=== PATIENT | female | born 1970 | race Caucasian/White ===

== ENCOUNTER 2018-04-15 09:55 | Emergency (ER) | payer MEDICARE, SELFPAY ==
[2018-04-02 10:51] VITALS: BMI 29.9
[2018-04-15 09:56] VITALS: BP 150/84; PULSE 94; RESP 18; TEMP 36.2; O2SAT 99; BMI 31.8
--- NOTE | 2018-04-15 10:10 | RAD_ITS ---
STUDY: X-RAY - LEFT HAND REASON FOR EXAM: Female, 47 years old. Cat bite lateral side of hand/thumb with injury, soft tissue swelling. TECHNIQUE: 3 view(s) of the hand. COMPARISON: None. FINDINGS: Normal radiocarpal articulation. Normal distal radioulnar joint. Normal visualized carpal bones. 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 Normal second through fifth carpometacarpal joints. Normal metacarpi. Normal metacarpophalangeal joint of the thumb. Normal interphalangeal joint of the thumb. Normal proximal and distal phalanges of the thumb. Normal metacarpophalangeal joints of the second through fifth fingers. Normal proximal and distal interphalangeal joints of the second through fifth fingers. Normal phalanges of the second through fifth fingers. Mild soft tissue swelling in the lateral hand/thenar region. No radiopaque foreign body. No demonstrated acute fracture. RAD/Hand Min 3 Views IMPRESSION: Mild lateral soft tissue swelling. No radiopaque foreign body or acute osseous abnormality of the left hand. Electronically Signed: Jamin Choi MD at 11:18 EST , Service support ,
--- NOTE | 2018-04-15 10:16 | ED.DCSUM_ITS ---
- ER Visit Summary Date of Service: 04/15/18 Chief Complaint: Cat bite History of Present Illness: The patient is a 47 F who was bit by her cat last evening. Just come home from the vent after being sprayed. Patient is noted increased pain and swelling to her left thumb and hand. Shots are up-to-date. Physical Examination: Vital signs gross unremarkable. Patient sitting upright in bed no acute distress. Left upper extremity examination reveals multiple linear abrasions consistent with bite wounds/scratches to her left hand and left thumb. She has mild edema to the left thumb. She has full range of motion. No tenderness to palpation along the extensor tendons. No drainage from the wounds at this time and no focal fluctuance. Heart is regular rate and rhythm without murmur. Lung sounds are clear. Test Results: Left hand x-rays reveal no abnormality per my review. Emergency Department Course and Treatment: Patient is given Naprosyn, 1 tab of [place], and doxycycline. Hand is soaked and wounds are cleansed and dressed. At this time she is appropriate for outpatient management with antibiotics. She has been given instructions to return for worsening pain, swelling, redness, etc. She Agapito has a follow-up appointment scheduled with her primary care physician in 3 days. Treatment Plan: [] Disposition: Discharge Impression: Cat bite left hand This note was generated with [employer] dictation software. It may contain incorrect words, spelling, and punctuation that were not noted in review of the chart prior to signing ED Disposition - Plan for ED Patient: Chief Complaint: Bite Referrals: Danielle Knowles MD [Primary Care Provider] -
[2018-04-15] MEDS: Naproxen 500 MG Tablet PO (11:01)
[2018-04-15] MEDS: HYDROcodone Bitartrate/Apap 5/325 Tablet PO (11:01)
[2018-04-15] MEDS: Doxycycline 100 MG CAPSULE PO (11:01)
--- NOTE | 2018-04-15 11:17 | ED.DEP ---
ED Disposition - Plan for ED Patient: Disposition: Home or Assisted Living Chief Complaint: Bite Instructions: ED Bite Cat Prescriptions: Hydrocodone Bitart/Apap 5-325 [[place] 5MG-325MG] 1 tablet PO Q6H PRN PRN 3 Days #10 tablet PRN Reason: Pain Naproxen [Naprosyn] 500 mg PO BID PRN PRN #20 tablet PRN Reason: Pain Doxycycline 100 mg PO BID #20 capsule Referrals: Danielle Knowles MD [Primary Care Provider] - Keep David appointment
[2018-04-15 11:27] VITALS: PULSE 90; RESP 17; O2SAT 98
--- OUTSIDE RECORDS SUMMARY | 2018-06-19 10:01 | XMS RPT_ITS ---
:1970 Author Organization [facility] Care Team Providers Name Role Phone SYL VEGA Referring Unavailable CINDY MOLINA ([facility]) Attending Unavailable MELYSSA MOBLEY Referring Unavailable CINDY MOLINA ([facility]) Referring Unavailable CINDY MOLINA ([facility]) Referring Unavailable CINDY MOLINA ([facility]) Referring Unavailable CINDY MOLINA ([facility]) Attending Unavailable CINDY MOLINA ([facility]) Referring Unavailable CINDY MOLINA ([facility]) Referring Unavailable GANLESLIE MELYSSA Referring Unavailable JOHNSON MOBLEYRA Attending Unavailable SYL VEGA Referring Unavailable GANTA, MELYSSA Referring Unavailable RUTTI, GINA (RELIEF MATE) Attending Unavailable GANTA, MELYSSA Referring Unavailable WINNIE ARTEAGA (PT) Attending Unavailable RUTTI, GINA (RELIEF MATE) Referring Unavailable RUTTI, GINA (RELIEF MATE) Referring Unavailable RUTTI, GINA (RELIEF MATE) Referring Unavailable CHANDLERWINNIE OATES (PT) Attending Unavailable RUTTI, GINA (RELIEF MATE) Referring Unavailable GANTA, MELYSSA Referring Unavailable GANTA, MELYSSA Attending Unavailable GANTA, MELYSSA Referring Unavailable GANTA, MELYSSA Referring Unavailable GANTA, MELYSSA Referring Unavailable GANTA, MELYSSA Referring Unavailable GANTA, MELYSSA Referring Unavailable GANTA, MELYSSA Attending Unavailable Syl Hylton Attending Unavailable Ganta, Melyssa Referring Unavailable Cathy Posada Attending Unavailable Ganta, Melyssa Primary Care Unavailable Cesar Ariza Attending Unavailable Ganta, Melyssa Referring Unavailable Pool, Nhung Primary Care Unavailable Cesar Ariza Attending Unavailable Syl Hylton Attending Unavailable Ganta, Melyssa Referring Unavailable PROBLEMS PROBLEMS DATE TYPE CONDITION / CODE ATTENDING STATUS SOURCE 04/15/2018 Unknown S61.452A - Open Cathy Posada Active [facility] bite of left hand, Community initial encounter / Hospital S61.452A(ICD-10) Repository 04/05/2018 Unknown J01.00 - Acute Syl Hylton Active [place] maxillary [facility] sinusitis, Hospital unspecified / Repository J01.00(ICD-10) 01/13/2018 Active Encounter for Active [facility] screening mammogram [place] for malignant Repository neoplasm of breast / Z12.31(ICD-10) 09/10/2017 Active 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[facility] (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) drug [place] therapy / Repository Z79.899(ICD-10) 09/10/2017 Active Unspecified NA Active [facility] osteoarthritis, [place] unspecified site / Repository M19.90(ICD-10) 09/09/2017 Active Unknown / GANTA, MELYSSA Active [facility] UNK(Unknown) [place] Repository 04/19/2013 Active Hyperlipidemia, Active [facility] unspecified / [place] E78.5(ICD-10) Repository 08/13/2017 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 [facility] use of insulin / [place] Z79.4(ICD-10) Repository 08/13/2017 Active Essential (primary) Active [facility] hypertension / [place] I10(ICD-10) Repository 04/19/2013 Active Proteinuria, NA Active [facility] unspecified / [place] R80.9(ICD-10) Repository 05/25/2017 Active Type 2 diabetes NA Active [facility] mellitus with [place] hyperglycemia / Repository E11.65(ICD-10) 05/25/2017 Active Glycosuria / NA Active [facility] R81(ICD-10) [place] Repository 05/25/2017 Active Hyperglycemia, NA Active [facility] unspecified / [place] R73.9(ICD-10) Repository 05/21/2017 Active Type 2 diabetes NA Active [facility] mellitus with [place] diabetic Repository nephropathy / E11.21(ICD-10) 04/28/2017 Unknown R30.0 - Dysuria / Cesar Ariza Active [facility] R30.0(ICD-10) [facility] [place] Repository PROCEDURES PROCEDURES No Procedure Records FoundRESULTS RESULTS OBSOLETE Observed: 04/21/2018 Status: COMPLETED Source: [place] 12:00 AM [facility] REPOSITORY Refill (INTMWS) JAROD LOONEY ([id number]) 1970 F Date Time Provider Department 04/21/18 MELYSSA MOBLYE INTMWS During your visit today, we recorded the following information about you: Estephania Christophe FORMAN 04/21/2018 11:52 AM Signed Patient has been identified by name and date of : Yes Pharmacy phones for refill(s): Pending Prescriptions Disp Refills INSULIN DEGLUDEC (U-100) 100 UNIT/ML (3 ML) SUBCUTANEOUS PEN 7 Pen 5 Sig: Inject 70 Units subcutaneously once daily. NIDHI: No GABAPENTIN 100 MG CAPSULE 270 capsule 0 Sig: Take 1 capsule by mouth three times daily for 90 days. NIDHI: No Date of last office visit in primary care: 04/18/2018, has appt 07/18/2018 Last 2 Encounter Wt Readings: Date: Wt: 04/18/2018 83 kg (183 lb) 01/13/2018 84.4 kg (186 lb) Previous labs/tests for medication: Diabetes: Hemoglobin A1C (%) Date Value 04/01/2018 7.5 12/17/2017 8.5 Please advise. Thank you. Estephania Molina APRN.RELIEF MATE 04/21/2018 1:01 PM Signed The following approved medication requests have been transmitted electronically. Signed Prescriptions Disp Refills insulin degludec (TRESIBA FLEXTOUCH U-100) 100 unit/mL (3 mL) injection 7 Pen 5 Sig: Inject 70 Units subcutaneously once daily. NIDHI: No Authorizing Provider: CINDY MOLINA ([place]) gabapentin (NEURONTIN) 100 mg capsule 270 capsule 1 Sig: Take 1 capsule by mouth three times daily for 180 days. NIDHI: No Authorizing Provider: CINDY MOLINA ([place]) Cindy Molina APRN.RELIEF MATE Allergies As of Date: 04/21/2018 Noted Allergy Reaction PENICILLIN G 04/18/2013 7 - Swelling REQUIP (ROPINIROLE) 04/18/2013 14 - Other: See Comments Comments: seizures Date Reviewed: 04/18/2018 Reviewed by: Sharon Reyes LPN - Fully Assessed Reason for Visit: Refill Request [94] Visit Diagnosis:Restless leg [G25.81] Order(s):insulin degludec (TRESIBA FLEXTOUCH U-100) 100 unit/mL (3 mL) injectionInject 70 Units subcutaneously once daily.Disp: 7 PenRfl: 5 gabapentin (NEURONTIN) 100 mg capsuleTake 1 capsule by mouth three times daily for 180 days.Disp: 270 capsuleRfl: 1 Prescriptions as of 04/21/2018 Sig: INSULIN DEGLUDEC (U-100) 100 * Inject 70 Units subcutaneousl* GABAPENTIN 100 MG CAPSULE Take 1 capsule by mouth three* PEN NEEDLE, DIABETIC 31 GAUGE* Use one needle per dose. once* TRIAMCINOLONE ACETONIDE 55 MC* Use 2 Sprays in the nose once* LIRAGLUTIDE 0.6 MG/0.1 ML (18* Inject 1.8 mg subcutaneously * KETOCONAZOLE 2 % TOPICAL CREAM Apply 1 application to affect* NAPROXEN 500 MG TABLET Take 1 tablet by mouth twice * FREESTYLE LANCETS 28 GAUGE CHECK BLOOD GLUCOSE TWO TIME* LIDOCAINE 5 % TOPICAL CREAM Apply 1 application to affect* METFORMIN 1,000 MG TABLET Take 1 tablet by mouth twice * AMLODIPINE 5 MG TABLET TAKE 1 TABLET BY MOUTH ONCE D* VENLAFAXINE ER 150 MG CAPSULE* TAKE 1 CAPSULE BY MOUTH ONCE* FENOFIBRATE NANOCRYSTALLIZED * TAKE 1 TABLET BY MOUTH ONCE D* LOSARTAN 100 MG TABLET TAKE ONE-HALF TABLET BY MOUT* ATORVASTATIN 20 MG TABLET TAKE 1 TABLET BY MOUTH ONCE D* ATENOLOL 50 MG TABLET TAKE 1 TABLET BY MOUTH ONCE D* OMEPRAZOLE 20 MG CAPSULE,SAYRA* TAKE 1 CAPSULE BY MOUTH HUGO* MONTELUKAST 10 MG TABLET TAKE 1 TABLET BY MOUTH DAILY* BLOOD SUGAR DIAGNOSTIC STRIPS Use as instructed LINZESS 145 MCG CAPSULE take 1 capsule by mouth once * SYRINGE WITH NEEDLE, SAFETY 3* 1 mL once each week. ASPIRIN 81 MG TABLET,DELAYED * Take 1 tablet by mouth once d* Problem List As Of Date 04/21/2018 Noted Resolved Anxiety and depression [F41.9, F32.9] INVALID FOR* More... Hyperlipidemia [E78.5] INVALID FOR* More... Hypertension [I10] INVALID FOR* More... Fibromyalgia syndrome [M79.7] INVALID FOR* More... Tobacco abuse [Z72.0] INVALID FOR* More... 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 Proteinuria [R80.9] INVALID FOR* Tendinitis of thumb [M77.8] INVALID FOR* More... Raynaud's syndrome [I73.00] INVALID FOR* More... Irritable bowel syndrome with diarrhea [K58.0] INVALID FOR* Restless leg syndrome [G25.81] INVALID FOR* Chronic pain syndrome [G89.4] INVALID FOR* Prescriptions ordered this encounter Disp Refills Start End INSULIN DEGLUDEC (U-100) 100 UNIT/ML* 7 Pen 5 04/21/2018 Class: [facility] Route: SUBCUTANEOUS Sig: Inject 70 Units subcutaneously once daily. GABAPENTIN 100 MG CAPSULE 270 * 1 04/21/2018 10/18/2018 Class: [facility] Route: ORAL Sig: Take 1 capsule by mouth three times daily for 180 days. Medications Discontinued During This Encounter insulin degludec (TRESIBA FLEXTOUCH * 7 Pen 5 01/25/2018 04/21/2018 Route: SUBCUTANEOUS Sig: Inject 70 Units subcutaneously once daily. Disc: Reason for discontinue is not on file. gabapentin (NEURONTIN) 100 mg capsule 270 * 0 12/16/2017 04/21/2018 Sig: TAKE 1 CAPSULE BY MOUTH 3 TIMES DAILY Disc: Reason for discontinue is not on file. Encounter Status:Closed by CINDY MOLINA CNP on 04/21/18 PROGRESS Observed: 04/18/2018 Status: COMPLETED Source: [place] 2:02 PM [facility] REPOSITORY O ID: [id number] Author: Melyssa Mobley Service: (none) Author Type: Physician Type: Progress Notes Filed: 04/18/2018 5:24 PM Note Text: Reason for Visit Patient presents with: Established Patient: 3 month follow up Jarod Looney is a 47 year old female who presents here today for Above Complaints.. Health Maintenance DTAP,TDAP,TD(1 - Tdap) HPI Cat was neutered but they forgot to up a cone on her to stop from licking her wounds and when the patient tried to get her on it, cat bit her, and she has some tiny wounds on herself. She is on abx 2 times, dicloxacillin, this all took place Tuesday. They had xray and did not show any tooth in the flesh there. Her Diabetes Mellitus is improved since the last time, down from 8.5 to 7.5. She is not sure what blood test it was but is proud of her sugar too. Has lost around 5 pounds. She is not exercising regularly, patient notes being very active at home. Her tgs are usually very high but she is on the fenofibrate and tolerates it well. She is not on Linzess on a daily basis. If she takes it all the time she has runny bowels. On effexor for anxiety, depression and that is keeping her good. No problem-specific Assessment AND Plan notes found for this encounter. PAST MEDICAL HISTORY Diagnosis Date - De Quervain's tenosynovitis, bilateral - Diabetes (HCC) - Hypercholesterolemia - Raynaud's disease PAST SURGICAL HISTORY Procedure Laterality Date - CONE OF CERVIX LOOPELEC EXCIS - EXTRACTION ERUPTED TOOTH/EXR - HYSTERECTOMY HX precervical cancer, removed cervix - KNEE SURGERY HX 4x right and left x4 FAMILY HISTORY Problem Relation Age of Onset - Hypertension Mother - Breast Cancer Mother - Breast Cancer Maternal Grandmother - Cervical Cancer Paternal Aunt - COPD Paternal Grandmother - Coronary Artery Disease Paternal Grandfather - Coronary Artery Disease Paternal Grandmother - Heart Paternal Aunt - other (raynaud [Other]) Mother Social History Substance Use Topics - Smoking status: Current Every Day Smoker Packs/day: 0.50 Years: 21.00 Types: Cigarettes - Smokeless tobacco: Never Used - Alcohol use No Past medical history, appointments, medications, allergies reviewed. Pertinent Lab/Diagnostic Studies are reviewed and discussed today Current Outpatient Prescriptions: - insulin needles, DISPOSABLE, (PEN NEEDLE) 31 gauge x 5/16 ndle - triamcinolone acetonide (NASACORT) 55 mcg nasal inhaler - liraglutide (VICTOZA) 0.6 mg/ 0.1 ml subcutaneous pen injector - insulin degludec (TRESIBA FLEXTOUCH U-100) 100 unit/mL (3 mL) injection - ketoconazole (NIZORAL) 2 % cream - gabapentin (NEURONTIN) 100 mg capsule - naproxen (NAPROSYN) 500 mg tablet - FREESTYLE LANCETS 28 gauge misc - lidocaine (ANECREAM5) crea - metFORMIN (GLUCOPHAGE) 1,000 mg tablet - amLODIPine (NORVASC) 5 mg tablet - venlafaxine ER (EFFEXOR XR) 150 mg 24 hr capsule - fenofibrate nanocrystallized (TRICOR) 145 mg tablet - losartan (COZAAR) 100 mg tablet - atorvastatin (LIPITOR) 20 mg tablet - atenolol (TENORMIN) 50 mg tablet - omeprazole (PRILOSEC) 20 mg capsule - montelukast (SINGULAIR) 10 mg tablet - blood sugar diagnostic (ONETOUCH ULTRA TEST) test strip - LINZESS 145 mcg cap - Syringe with Needle, Safety (3CC SAFETY SYRINGE 25GX5/8) 3 mL 25 x 5/8 syrg - aspirin, enteric coated (ADULT LOW DOSE ASPIRIN) 81 mg EC tablet Review of Systems CONSTITUTIONAL: No fevers, chills night sweats, unintended weight loss CARDIOVASCULAR: No chest pain, dyspnea, palpitations, orthopnea, PND, ankle edema. PULM: No dyspnea, unexplained cough. GI: No dysphagia/odynophagia, problematic reflux, constipation, diarrhea, changes in stool habits, hematochezia, melena. : No new urinary complaints, including dysuria, gross hematuria or pyuria. NEURO: No new balance problems, peripheral weakness/paresthesias or numbness of concern. Physical Exam BP 120/74 (BP Site: Right Arm, BP Position: Sitting, BP Cuff Size: Large Adult) Pulse 103 Resp 12 Ht 165.1 cm (5' 5) Wt 83 kg (183 lb) SpO2 97% BMI 30.45 kg/m? General appearance: Well appearing, alert, in no acute distress, well nourished. Skin: Skin color, texture, turgor normal, no suspicious rashes or lesions Head: Normocephalic, no masses, lesions, tenderness or abnormalities Eyes: Anicteric sclera. Pupils are equally round and reactive to light. Extraocular movements are intact. Lungs: Lungs clear to auscultation. No wheezing, rhonchi, rales Heart: RRR without murmur, gallop, or rubs. She has multiple carson on the left hand But there is no streaking of the bite wounds. None of them look Like there is active spreading infection ASSESSMENT/PLAN: 1. Anxiety and depression - ICD9: 300.00, 311, ICD10: F41.9, F32.9 (primary diagnosis) Currently stable 2. Hyperlipidemia, unspecified hyperlipidemia type - ICD9: 272.4, ICD10: E78.5 - good control - Continue current medication. 3. Essential hypertension - ICD9: 401.9, ICD10: I10 - good control - Recommended regular aerobic exercise. - Recommend home blood pressure monitoring, to bring results in on next visit - Goal of BP <130/80 - HGB A1C 4. Hypertriglyceridemia - ICD9: 272.1, ICD10: E78.1 - good control - Continue current medication. 5. Cat bite, subsequent encounter - ICD9: V58.89, 879.8, ICD10: W55.01XD Reassured her that she is on the right medication 6. Type 2 diabetes mellitus with diabetic nephropathy, with long-term current use of insulin (HCC) - ICD9: 250.40, 583.81, V58.67, ICD10: E11.21, Z79.4 Controlled. - Continue current medications - LIPID PANEL BASIC MELYSSA MOBLEY MD CNOV Observed: 04/18/2018 Status: COMPLETED Source: [place] 1:40 PM [facility] REPOSITORY Office Visit (INTMWS) JAROD LOONEY ([id number]) 1970 F Date Time Provider Department 04/18/18 1:40 PM MELYSSA MOBLEY INTMWS During your visit today, we recorded the following information about you: Pulse Respiration Blood pressure Weight 103/minute 12/minute 120/74 83 kg Height 1.651 m Sharon Reyes LPN 04/18/2018 2:02 PM Signed Cat bite on left hand MELYSSA MOBLEY MD 04/18/2018 5:24 PM Signed Reason for Visit Patient presents with: Established Patient: 3 month follow up Jarod Looney is a 47 year old female who presents here today for Above Complaints.. Health Maintenance DTAP,TDAP,TD(1 - Tdap) HPI Cat was neutered but they forgot to up a cone on her to stop from licking her wounds and when the patient tried to get her on it, cat bit her, and she has some tiny wounds on herself. She is on abx 2 times, dicloxacillin, this all took place Tuesday. They had xray and did not show any tooth in the flesh there. Her Diabetes Mellitus is improved since the last time, down from 8.5 to 7.5. She is not sure what blood test it was but is proud of her sugar too. Has lost around 5 pounds. She is not exercising regularly, patient notes being very active at home. Her tgs are usually very high but she is on the fenofibrate and tolerates it well. She is not on Linzess on a daily basis. If she takes it all the time she has runny bowels. On effexor for anxiety, depression and that is keeping her good. No problem-specific Assessment AND Plan notes found for this encounter. PAST MEDICAL HISTORY Diagnosis Date - De Quervain's tenosynovitis, bilateral - Diabetes (HCC) - Hypercholesterolemia - Raynaud's disease PAST SURGICAL HISTORY Procedure Laterality Date - CONE OF CERVIX LOOPELEC EXCIS - EXTRACTION ERUPTED TOOTH/EXR - HYSTERECTOMY HX precervical cancer, removed cervix - KNEE SURGERY HX 4x right and left x4 FAMILY HISTORY Problem Relation Age of Onset - Hypertension Mother - Breast Cancer Mother - Breast Cancer Maternal Grandmother - Cervical Cancer Paternal Aunt - COPD Paternal Grandmother - Coronary Artery Disease Paternal Grandfather - Coronary Artery Disease Paternal Grandmother - Heart Paternal Aunt - other (raynaud [Other]) Mother Social History Substance Use Topics - Smoking status: Current Every Day Smoker Packs/day: 0.50 Years: 21.00 Types: Cigarettes - Smokeless tobacco: Never Used - Alcohol use No Past medical history, appointments, medications, allergies reviewed. Pertinent Lab/Diagnostic Studies are reviewed and discussed today Current Outpatient Prescriptions: - insulin needles, DISPOSABLE, (PEN NEEDLE) 31 gauge x 5/16 ndle - triamcinolone acetonide (NASACORT) 55 mcg nasal inhaler - liraglutide (VICTOZA) 0.6 mg/ 0.1 ml subcutaneous pen injector - insulin degludec (TRESIBA FLEXTOUCH U-100) 100 unit/mL (3 mL) injection - ketoconazole (NIZORAL) 2 % cream - gabapentin (NEURONTIN) 100 mg capsule - naproxen (NAPROSYN) 500 mg tablet - FREESTYLE LANCETS 28 gauge misc - lidocaine (ANECREAM5) crea - metFORMIN (GLUCOPHAGE) 1,000 mg tablet - amLODIPine (NORVASC) 5 mg tablet - venlafaxine ER (EFFEXOR XR) 150 mg 24 hr capsule - fenofibrate nanocrystallized (TRICOR) 145 mg tablet - losartan (COZAAR) 100 mg tablet - atorvastatin (LIPITOR) 20 mg tablet - atenolol (TENORMIN) 50 mg tablet - omeprazole (PRILOSEC) 20 mg capsule - montelukast (SINGULAIR) 10 mg tablet - blood sugar diagnostic (ONETOUCH ULTRA TEST) test strip - LINZESS 145 mcg cap - Syringe with Needle, Safety (3CC SAFETY SYRINGE 25GX5/8) 3 mL 25 x 5/8 syrg - aspirin, enteric coated (ADULT LOW DOSE ASPIRIN) 81 mg EC tablet Review of Systems CONSTITUTIONAL: No fevers, chills night sweats, unintended weight loss CARDIOVASCULAR: No chest pain, dyspnea, palpitations, orthopnea, PND, ankle edema. PULM: No dyspnea, unexplained cough. GI: No dysphagia/odynophagia, problematic reflux, constipation, diarrhea, changes in stool habits, hematochezia, melena. : No new urinary complaints, including dysuria, gross hematuria or pyuria. NEURO: No new balance problems, peripheral weakness/paresthesias or numbness of concern. Physical Exam BP 120/74 (BP Site: Right Arm, BP Position: Sitting, BP Cuff Size: Large Adult) Pulse 103 Resp 12 Ht 165.1 cm (5' 5) Wt 83 kg (183 lb) SpO2 97% BMI 30.45 kg/m? General appearance: Well appearing, alert, in no acute distress, well nourished. Skin: Skin color, texture, turgor normal, no suspicious rashes or lesions Head: Normocephalic, no masses, lesions, tenderness or abnormalities Eyes: Anicteric sclera. Pupils are equally round and reactive to light. Extraocular movements are intact. Lungs: Lungs clear to auscultation. No wheezing, rhonchi, rales Heart: RRR without murmur, gallop, or rubs. She has multiple carson on the left hand But there is no streaking of the bite wounds. None of them look Like there is active spreading infection ASSESSMENT/PLAN: 1. Anxiety and depression - ICD9: 300.00, 311, ICD10: F41.9, F32.9 (primary diagnosis) Currently stable 2. Hyperlipidemia, unspecified hyperlipidemia type - ICD9: 272.4, ICD10: E78.5 - good control - Continue current medication. 3. Essential hypertension - ICD9: 401.9, ICD10: I10 - good control - Recommended regular aerobic exercise. - Recommend home blood pressure monitoring, to bring results in on next visit - Goal of BP <130/80 - HGB A1C 4. Hypertriglyceridemia - ICD9: 272.1, ICD10: E78.1 - good control - Continue current medication. 5. Cat bite, subsequent encounter - ICD9: V58.89, 879.8, ICD10: W55.01XD Reassured her that she is on the right medication 6. Type 2 diabetes mellitus with diabetic nephropathy, with long-term current use of insulin (HCC) - ICD9: 250.40, 583.81, V58.67, ICD10: E11.21, Z79.4 Controlled. - Continue current medications - LIPID PANEL BASIC MELYSSA MOBLEY MD Referring Provider: SELF [200] Allergies As of Date: 04/18/2018 Noted Allergy Reaction PENICILLIN G 04/18/2013 7 - Swelling REQUIP (ROPINIROLE) 04/18/2013 14 - Other: See Comments Comments: seizures Date Reviewed: 04/18/2018 Reviewed by: Sharon Reyes LPN - Fully Assessed Reason for Visit: Established Patient [175] Cmt: 3 month follow up Primary Visit Diagnosis:Anxiety and depression [F41.9, F32.9] Other Visit Diagnoses:Hyperlipidemia, unspecified hyperlipidemia type [E78.5] Essential hypertension [I10] Hypertriglyceridemia [E78.1] Cat bite, subsequent encounter [W55.01XD] Type 2 diabetes mellitus with diabetic nephropathy, with long-term current use of insulin (HCC) [E11.21, Z79.4] Order(s):HGB A1C [TDVCG7L] Order #: [id number] FUTURE LIPID PANEL BASIC [SQLIPB] Order #: [id number] FUTURE Prescriptions as of 04/18/2018 Sig: PEN NEEDLE, DIABETIC 31 GAUGE* Use one needle per dose. once* TRIAMCINOLONE ACETONIDE 55 MC* Use 2 Sprays in the nose once* LIRAGLUTIDE 0.6 MG/0.1 ML (18* Inject 1.8 mg subcutaneously * INSULIN DEGLUDEC (U-100) 100 * Inject 70 Units subcutaneousl* KETOCONAZOLE 2 % TOPICAL CREAM Apply 1 application to affect* GABAPENTIN 100 MG CAPSULE TAKE 1 CAPSULE BY MOUTH 3 TI* NAPROXEN 500 MG TABLET Take 1 tablet by mouth twice * FREESTYLE LANCETS 28 GAUGE CHECK BLOOD GLUCOSE TWO TIME* LIDOCAINE 5 % TOPICAL CREAM Apply 1 application to affect* METFORMIN 1,000 MG TABLET Take 1 tablet by mouth twice * AMLODIPINE 5 MG TABLET TAKE 1 TABLET BY MOUTH ONCE D* VENLAFAXINE ER 150 MG CAPSULE* TAKE 1 CAPSULE BY MOUTH ONCE* FENOFIBRATE NANOCRYSTALLIZED * TAKE 1 TABLET BY MOUTH ONCE D* LOSARTAN 100 MG TABLET TAKE ONE-HALF TABLET BY MOUT* ATORVASTATIN 20 MG TABLET TAKE 1 TABLET BY MOUTH ONCE D* ATENOLOL 50 MG TABLET TAKE 1 TABLET BY MOUTH ONCE D* OMEPRAZOLE 20 MG CAPSULE,SAYRA* TAKE 1 CAPSULE BY MOUTH HUGO* MONTELUKAST 10 MG TABLET TAKE 1 TABLET BY MOUTH DAILY* BLOOD SUGAR DIAGNOSTIC STRIPS Use as instructed LINZESS 145 MCG CAPSULE take 1 capsule by mouth once * SYRINGE WITH NEEDLE, SAFETY 3* 1 mL once each week. ASPIRIN 81 MG TABLET,DELAYED * Take 1 tablet by mouth once d* Problem List As Of Date 04/18/2018 Noted Resolved Anxiety and depression [F41.9, F32.9] INVALID FOR* More... Hyperlipidemia [E78.5] INVALID FOR* More... Hypertension [I10] INVALID FOR* More... Fibromyalgia syndrome [M79.7] INVALID FOR* More... Tobacco abuse [Z72.0] INVALID FOR* More... 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 Proteinuria [R80.9] INVALID FOR* Tendinitis of thumb [M77.8] INVALID FOR* More... Raynaud's syndrome [I73.00] INVALID FOR* More... Irritable bowel syndrome with diarrhea [K58.0] INVALID FOR* Restless leg syndrome [G25.81] INVALID FOR* Chronic pain syndrome [G89.4] INVALID FOR* Visit Notes: >> Sharon Reyes DASIA Gould Apr 18, 2018 1:52 PM Status: Signed Cat bite on left hand Encounter Status:Closed by MELYSSA MOBLEY MD on 04/18/18 EMERGENCY DEPARTMENT Observed: 04/15/2018 Status: F Source: [place] SUMMARY 2:05 PM [facility] REPOSITORY [facility] Medical Records Department [address] [place] [id number] Emergency Department Summary 04/15/18 1015 MR#: [id number] Acct: [id number] Name: JAROD LOONEY Rep #: [id number] : 1970 47 From: Cathy Posada MD PCP: Melyssa Mobley MD Status: DEP ER - ER Visit Summary Date of Service: 04/15/18 Chief Complaint: Cat bite History of Present Illness: The patient is a 47 F who was bit by her cat last evening. Just come home from the vent after being sprayed. Patient is noted increased pain and swelling to her left thumb and hand. Shots are up-to-date. Physical Examination: Vital signs gross unremarkable. Patient sitting upright in bed no acute distress. Left upper extremity examination reveals multiple linear abrasions consistent with bite wounds/scratches to her left hand and left thumb. She has mild edema to the left thumb. She has full range of motion. No tenderness to palpation along the extensor tendons. No drainage from the wounds at this time and no focal fluctuance. Heart is regular rate and rhythm without murmur. Lung sounds are clear. Test Results: Left hand x-rays reveal no abnormality per my review. Emergency Department Course and Treatment: Patient is given Naprosyn, 1 tab of [place], and doxycycline. Hand is soaked and wounds are cleansed and dressed. At this time she is appropriate for outpatient management with antibiotics. She has been given instructions to return for worsening pain, swelling, redness, etc. She Agapito has a follow-up appointment scheduled with her primary care physician in 3 days. Treatment Plan: [] Disposition: Discharge Impression: Cat bite left hand This note was generated with Knome dictation software. It may contain incorrect words, spelling, and punctuation that were not noted in review of the chart prior to signing ED Disposition - Plan for ED Patient: Chief Complaint: Bite Referrals: Melyssa Mobley MD [Primary Care Provider] - What to do if you have Problems For any increased pain, shortness of breath, bleeding, nausea or vomiting, chest pain, or any unexpected problems, contact your Primary Care Provider. Call [facility] ([phone]) or report to the closest Emergency Room. Call 911 if necessary. 04/15/18 8492 <Electronically signed by Cathy Posada MD> Date Cathy Posada MD Cosigner Signature (If Indicated): Date CC: Melyssa Mobley MD DISCHARGE INSTRUCTION Observed: 04/15/2018 Status: F Source: [place] 11:19 AM [facility] REPOSITORY [facility] Medical Records Department [address] [place] [address] Discharge Instruction 04/15/18 1117 MR#: [id number] Acct: [id number] Name: JAROD LOONEY Rep #: [id number] : 1970 47 From: Cathy Posada MD PCP: Melyssa Mobley MD Status: REG ER ED Disposition - Plan for ED Patient: Disposition: Home or Assisted Living Chief Complaint: Bite Instructions: ED Bite Cat Prescriptions: Hydrocodone Bitart/Apap 5-325 [[place] 5MG-325MG] 1 tablet PO Q6H PRN PRN 3 Days #10 tablet PRN Reason: Pain Naproxen [Naprosyn] 500 mg PO BID PRN PRN #20 tablet PRN Reason: Pain Doxycycline 100 mg PO BID #20 capsule Referrals: Melyssa Mobley MD [Primary Care Provider] - Keep David appointment What to do if you have Problems For any increased pain, shortness of breath, bleeding, nausea or vomiting, chest pain, or any unexpected problems, contact your Primary Care Provider. Call [facility] ([phone]) or report to the closest Emergency Room. Call 911 if necessary. 04/15/18 1119 <Electronically signed by Cathy Posada MD> Date Cathy Posada MD Cosigner Signature (If Indicated): Date CC: Melyssa Mobley MD HAND MIN 3 VIEWS Observed: 04/15/2018 Status: F Source: [place] 10:10 AM [facility] Imaging Services [address] [address] Hand Min 3 Views MR#: [id number] Acct: [id number] Name: CAYDENJAROD Rep #: [id number] : 1970 F 47 From: Ld Choi MD PCP: Melyssa Mobley MD Status: REG ER Study: Hand Min 3 Views Date of Exam: 04/15/18 Exam# [id number] Ordering Dr: Cathy Posada MD STUDY: X-RAY - LEFT HAND REASON FOR EXAM: Female, 47 years old. Cat bite lateral side of hand/thumb with injury, soft tissue swelling. TECHNIQUE: 3 view(s) of the hand. COMPARISON: None. FINDINGS: Normal radiocarpal articulation. Normal distal radioulnar joint. Normal visualized carpal bones. 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 Normal second through fifth carpometacarpal joints. Normal metacarpi. Normal metacarpophalangeal joint of the thumb. Normal interphalangeal joint of the thumb. Normal proximal and distal phalanges of the thumb. Normal metacarpophalangeal joints of the second through fifth fingers. Normal proximal and distal interphalangeal joints of the second through fifth fingers. Normal phalanges of the second through fifth fingers. Mild soft tissue swelling in the lateral hand/thenar region. No radiopaque foreign body. No demonstrated acute fracture. RAD/Hand Min 3 Views IMPRESSION: Mild lateral soft tissue swelling. No radiopaque foreign body or acute osseous abnormality of the left hand. Electronically Signed: Jamin Choi MD at 11:18 EST , Service support , CC: Melyssa Mobley MD; Cathy Posada MD Survey Interviewer: Signed PROGRESS Observed: 04/06/2018 Status: COMPLETED Source: [place] 2:00 PM [facility] REPOSITORY HNO ID: [id number] Author: Suman Cabrera (Pharmacist) Service: (none) Author Type: Pharmacist Type: Progress Notes Filed: 04/06/2018 3:06 PM Note Text: Patient consents to pharmacy collaborative practice agreement. REASON FOR CONSULT: DM? GOALS: A1c <?8% CONSULTING PROVIDER: Cindy Molina CNP - need to updated consult agreement with PCP? Date of Consult: 04/2017 ? Jarod Looney is a 47 year old female was last seen by PCP, Dr. MELYSSA MOBLEY MD on 01/13. Subjective: Patient is presenting today with mother, Ying Phelan, for f/u pharmacotherapy management appointment for diabetes. At last PharmD visit on 03/25, no med changes. INTERIM HISTORY: Reports she is doing well with blood sugars Patient very pleased with improved A1c Smoking 1/2 ppd, not interested in quitting Reports uses smoking for anxiety States she has a disease of her hands that will make it so she won't be able to use hands at some point in the future Also says her mom having vascular dementia and her dad having Parkinson's is very stressful Past DM medications: Liraglutide switched to dulaglutide on 08/24/17 - BGs not at goal Dulaglutide switched back to liraglutide on 12/22/17 - pain with dulaglutide injection ? Current DM Medications: Insulin degludec 70?units once daily Metformin 1,000mg BID Liraglutide 1.8mg daily ? Current HTN Medications: Amlodipine 5mg once daily Atenolol 50mg once daily Losartan 50mg once daily (take 0.5 tablet of 100mg) ? Preventative Medications: ? On MANDY/ARB: Yes ? On Statin: Yes ? On ASA: Yes ROS: ? Patient denies CP, SOB, TATUM, blurred vision, dizziness or lightheadedness ? Patient denies symptoms of hypoglycemia (sweating, anxiety, palpitations, hunger, and tremor) ? Patient denies symptoms of hyperglycemia (polyuria, polydipsia, polyphagia) ? Patient denies potential medication adverse effects DIET/EXERCISE/SOCIAL Hx: ? Denies dietary changes MEDICATIONS: ? Pill bottles are not present. ? Adherence: denies missed doses. ? [facility])? Rx coverage: [facility] ? Affordability: denies issue ? Diabetes supplies: One Touch ? Organization System: pill box ACTIVE PROBLEM LIST Anxiety and Depression Hyperlipidemia Hypertension Fibromyalgia Syndrome Tobacco Abuse Type 2 Diabetes Mellitus With Diabetic Nephropathy (Hcc) Proteinuria Tendinitis of Thumb Raynaud's Syndrome Irritable Bowel Syndrome With Diarrhea Restless Leg Syndrome Chronic Pain Syndrome PAST MEDICAL HISTORY Diagnosis Date - De Quervain's tenosynovitis, bilateral - Diabetes (HCC) - Hypercholesterolemia - Raynaud's disease ALLERGIES Allergen Reactions - Penicillin G Swelling - Requip [Ropinirole] Other: See Comments seizures Medication List Medication Directions Comments Action/Plan amLODIPine (NORVASC) 5 mg tablet TAKE 1 TABLET BY MOUTH ONCE DAILY aspirin, enteric coated (ADULT LOW DOSE ASPIRIN) 81 mg EC tablet Take 1 tablet by mouth once daily. atenolol (TENORMIN) 50 mg tablet TAKE 1 TABLET BY MOUTH ONCE DAILY atorvastatin (LIPITOR) 20 mg tablet TAKE 1 TABLET BY MOUTH ONCE DAILY blood sugar diagnostic ([employer] ULTRA TEST) test strip Use as instructed fenofibrate nanocrystallized (TRICOR) 145 mg tablet TAKE 1 TABLET BY MOUTH ONCE DAILY FREESTYLE LANCETS 28 gauge misc CHECK BLOOD GLUCOSE TWO TIMES DAILY gabapentin (NEURONTIN) 100 mg capsule TAKE 1 CAPSULE BY MOUTH 3 TIMES DAILY insulin degludec (TRESIBA FLEXTOUCH U-100) 100 unit/mL (3 mL) injection Inject 70 Units subcutaneously once daily. insulin needles, DISPOSABLE, (PEN NEEDLE) 31 gauge x 5/16 ndle Use one needle per dose. once per day. ketoconazole (NIZORAL) 2 % cream Apply 1 application to affected area once daily. Apply to rash and surrounding area lidocaine (ANECREAM5) crea Apply 1 application to affected area as needed. Prior to using Trulicity weekly. Allow cream to dry completely prior to injection. LINZESS 145 mcg cap take 1 capsule by mouth once daily liraglutide (VICTOZA) 0.6 mg/ 0.1 ml subcutaneous pen injector Inject 1.8 mg subcutaneously once daily. losartan (COZAAR) 100 mg tablet TAKE ONE-HALF TABLET BY MOUTH ONCE DAILY metFORMIN (GLUCOPHAGE) 1,000 mg tablet Take 1 tablet by mouth twice daily with meals. montelukast (SINGULAIR) 10 mg tablet TAKE 1 TABLET BY MOUTH DAILY AT BEDTIME naproxen (NAPROSYN) 500 mg tablet Take 1 tablet by mouth twice daily as needed (for pain/inflammation). Take with food. omeprazole (PRILOSEC) 20 mg capsule TAKE 1 CAPSULE BY MOUTH DAILY BEFORE BREAKFAST Syringe with Needle, Safety ([facility] SAFETY SYRINGE 25GX5/8) 3 mL 25 x 5/8 syrg 1 mL once each week. venlafaxine ER (EFFEXOR XR) 150 mg 24 hr capsule TAKE 1 CAPSULE BY MOUTH ONCE DAILY Reports taking an antibiotic BID for sinus infection (has several days left of medication) GLYCEMIC CONTROL: ? Glucometer present at visit: No ? SMBG?s: Date Fasting AM 2 hr PP Before Lunch 2 hr PP Before Dinner 2 hr PP Bedtime 04/05 155 03/29 180 03/23 110 03/14 114 03/10 104 03/06 119 03/02 115 90 03/01 109 216 ? Hypoglycemia: none Objective: VITALS: BP 126/79 Pulse 79 Last 3 Encounter BP Readings: Date: BP: 02/23/2018 130/80 01/25/2018 146/89 01/13/2018 124/82 Wt: 84.4 kg (186 lb) BMI: 30.95 kg/(m2) LABS Lab Results Component Value Date HBA1C 7.5 04/01/2018 HBA1C 8.5 12/17/2017 HBA1C 8.7 08/13/2017 CMP: Glucose 186 04/01/2018 BUN 10 04/01/2018 Creatinine 0.53 04/01/2018 Sodium 138 04/01/2018 Potassium 4.1 04/01/2018 Chloride 102 04/01/2018 CO2 23 04/01/2018 Protein, Total 6.8 05/21/2017 Albumin 4.3 05/21/2017 Calcium 9.6 04/01/2018 Alkaline Phosphatase 84 05/21/2017 Bilirubin, Total 0.2 05/21/2017 AST 14 05/21/2017 ALT 22 05/21/2017 eGFR >60 (per BMP on 04/01/18) Last Lipid Panel Lab Results Component Value Date CHOL 171 05/21/2017 Lab Results Component Value Date HDL 29 05/21/2017 Lab Results Component Value Date LDL Unable to calculate due to increased Triglycerides. See LDL-Chol, Direct. 05/21/2017 Lab Results Component Value Date TG 497 05/21/2017 10-year ASCVD risk: 14% Albumin/Creat Ratio (mg/g) Date Value 09/10/2017 225 (H) PHARMACOTHERAPY ASSESSMENT/PLAN: 1. Type 2 diabetes mellitus with diabetic nephropathy, with long-term current use of insulin (HCC) - ICD9: 250.40, 583.81, V58.67, ICD10: E11.21, Z79.4 (primary diagnosis) A1c goal <8% but can consider less strict goal of <7% given age; A1c has improved (8.5-->7.5%) and patient pleased with progress; patient tolerating regimen well; SMBGs show FBGs are mostly at goal of 80-130 mg/dL; patient happy and prefers to continue with current regimen for now; will review SMBG next month to determine if adjustments need made to basal insulin; renal fxn and LFTs WNL and appropriate for continued use - CONTINUE metformin 1000mg BID, liraglutide 1.8mg daily, and insulin degludec 70 units daily 2. Essential hypertension - ICD9: 401.9, ICD10: I10 BP goal <140/90; controlled on current regimen and tolerating well; renal fxn, K+, and HR WNL and appropriate for continued use - CONTINUE amlodipine 5mg daily, atenolol 50mg daily, and losartan 50mg daily 3. Tobacco abuse - ICD9: 305.1, ICD10: Z72.0 Precontemplative stage of change; patient unwilling to quit at this time - reports she needs smoking to help with stress; PharmD encouraged patient to think about her own health instead of worrying only about the health of her family members; will continue to address at future appts Patient is scheduled to see PCP on 04/18. Patient to return to clinic for PharmD f/u on 05/25. Patient verbalized understanding of instructions. Suman Cabrera PharmD, [facility] Primary Care Clinical Pharmacist [place] CNOV Observed: 04/06/2018 Status: COMPLETED Source: [place] 2:00 PM [facility] REPOSITORY Office Visit (PHMEWO) JAROD LOONEY ([id number]) 1970 F Date Time Provider Department 04/06/18 2:00 PM PANTERA (PHARMACIST)SUMAN During your visit today, we recorded the following information about you: Pulse Blood pressure 79/minute 126/79 SUMAN CABRERA, PHARMACIST 04/06/2018 3:06 PM Signed Patient consents to pharmacy collaborative practice agreement. REASON FOR CONSULT: DM? GOALS: A1c <?8% CONSULTING PROVIDER: Cindy Molina CNP - need to updated consult agreement with PCP? Date of Consult: 04/2017 ? Jarod Looney is a 47 year old female was last seen by PCP, Dr. MELYSSA MOBLEY MD on 01/13. Subjective: Patient is presenting today with mother, Ying Phelan, for f/u pharmacotherapy management appointment for diabetes. At last PharmD visit on 03/25, no med changes. INTERIM HISTORY: Reports she is doing well with blood sugars Patient very pleased with improved A1c Smoking 1/2 ppd, not interested in quitting Reports uses smoking for anxiety States she has a disease of her hands that will make it so she won't be able to use hands at some point in the future Also says her mom having vascular dementia and her dad having Parkinson's is very stressful Past DM medications: Liraglutide switched to dulaglutide on 08/24/17 - BGs not at goal Dulaglutide switched back to liraglutide on 12/22/17 - pain with dulaglutide injection ? Current DM Medications: Insulin degludec 70?units once daily Metformin 1,000mg BID Liraglutide 1.8mg daily ? Current HTN Medications: Amlodipine 5mg once daily Atenolol 50mg once daily Losartan 50mg once daily (take 0.5 tablet of 100mg) ? Preventative Medications: ? On MANDY/ARB: Yes ? On Statin: Yes ? On ASA: Yes ROS: ? Patient denies CP, SOB, TATUM, blurred vision, dizziness or lightheadedness ? Patient denies symptoms of hypoglycemia (sweating, anxiety, palpitations, hunger, and tremor) ? Patient denies symptoms of hyperglycemia (polyuria, polydipsia, polyphagia) ? Patient denies potential medication adverse effects DIET/EXERCISE/SOCIAL Hx: ? Denies dietary changes MEDICATIONS: ? Pill bottles are not present. ? Adherence: denies missed doses. ? [facility] Rx coverage: [employer] ? Affordability: denies issue ? Diabetes supplies: One Touch ? Organization System: pill box ACTIVE PROBLEM LIST Anxiety and Depression Hyperlipidemia Hypertension Fibromyalgia Syndrome Tobacco Abuse Type 2 Diabetes Mellitus With Diabetic Nephropathy (Hcc) Proteinuria Tendinitis of Thumb Raynaud's Syndrome Irritable Bowel Syndrome With Diarrhea Restless Leg Syndrome Chronic Pain Syndrome PAST MEDICAL HISTORY Diagnosis Date - De Quervain's tenosynovitis, bilateral - Diabetes (HCC) - Hypercholesterolemia - Raynaud's disease ALLERGIES Allergen Reactions - Penicillin G Swelling - Requip [Ropinirole] Other: See Comments seizures Medication List Medication Directions Comments Action/Plan amLODIPine (NORVASC) 5 mg tablet TAKE 1 TABLET BY MOUTH ONCE DAILY aspirin, enteric coated (ADULT LOW DOSE ASPIRIN) 81 mg EC tablet Take 1 tablet by mouth once daily. atenolol (TENORMIN) 50 mg tablet TAKE 1 TABLET BY MOUTH ONCE DAILY atorvastatin (LIPITOR) 20 mg tablet TAKE 1 TABLET BY MOUTH ONCE DAILY blood sugar diagnostic ([employer] ULTRA TEST) test strip Use as instructed fenofibrate nanocrystallized (TRICOR) 145 mg tablet TAKE 1 TABLET BY MOUTH ONCE DAILY FREESTYLE LANCETS 28 gauge misc CHECK BLOOD GLUCOSE TWO TIMES DAILY gabapentin (NEURONTIN) 100 mg capsule TAKE 1 CAPSULE BY MOUTH 3 TIMES DAILY insulin degludec (TRESIBA FLEXTOUCH U-100) 100 unit/mL (3 mL) injection Inject 70 Units subcutaneously once daily. insulin needles, DISPOSABLE, (PEN NEEDLE) 31 gauge x 5/16 ndle Use one needle per dose. once per day. ketoconazole (NIZORAL) 2 % cream Apply 1 application to affected area once daily. Apply to rash and surrounding area lidocaine (ANECREAM5) crea Apply 1 application to affected area as needed. Prior to using Trulicity weekly. Allow cream to dry completely prior to injection. LINZESS 145 mcg cap take 1 capsule by mouth once daily liraglutide (VICTOZA) 0.6 mg/ 0.1 ml subcutaneous pen injector Inject 1.8 mg subcutaneously once daily. losartan (COZAAR) 100 mg tablet TAKE ONE-HALF TABLET BY MOUTH ONCE DAILY metFORMIN (GLUCOPHAGE) 1,000 mg tablet Take 1 tablet by mouth twice daily with meals. montelukast (SINGULAIR) 10 mg tablet TAKE 1 TABLET BY MOUTH DAILY AT BEDTIME naproxen (NAPROSYN) 500 mg tablet Take 1 tablet by mouth twice daily as needed (for pain/inflammation). Take with food. omeprazole (PRILOSEC) 20 mg capsule TAKE 1 CAPSULE BY MOUTH DAILY BEFORE BREAKFAST Syringe with Needle, Safety ([employer] SAFETY SYRINGE 25GX5/8) 3 mL 25 x 5/8 syrg 1 mL once each week. venlafaxine ER (EFFEXOR XR) 150 mg 24 hr capsule TAKE 1 CAPSULE BY MOUTH ONCE DAILY Reports taking an antibiotic BID for sinus infection (has several days left of medication) GLYCEMIC CONTROL: ? Glucometer present at visit: No ? SMBG?s: Date Fasting AM 2 hr PP Before Lunch 2 hr PP Before Dinner 2 hr PP Bedtime 04/05 155 03/29 180 03/23 110 03/14 114 03/10 104 03/06 119 03/02 115 90 03/01 109 216 ? Hypoglycemia: none Objective: VITALS: BP 126/79 Pulse 79 Last 3 Encounter BP Readings: Date: BP: 02/23/2018 130/80 01/25/2018 146/89 01/13/2018 124/82 Wt: 84.4 kg (186 lb) BMI: 30.95 kg/(m2) LABS Lab Results Component Value Date HBA1C 7.5 04/01/2018 HBA1C 8.5 12/17/2017 HBA1C 8.7 08/13/2017 CMP: Glucose 186 04/01/2018 BUN 10 04/01/2018 Creatinine 0.53 04/01/2018 Sodium 138 04/01/2018 Potassium 4.1 04/01/2018 Chloride 102 04/01/2018 CO2 23 04/01/2018 Protein, Total 6.8 05/21/2017 Albumin 4.3 05/21/2017 Calcium 9.6 04/01/2018 Alkaline Phosphatase 84 05/21/2017 Bilirubin, Total 0.2 05/21/2017 AST 14 05/21/2017 ALT 22 05/21/2017 eGFR >60 (per BMP on 04/01/18) Last Lipid Panel Lab Results Component Value Date CHOL 171 05/21/2017 Lab Results Component Value Date HDL 29 05/21/2017 Lab Results Component Value Date LDL Unable to calculate due to increased Triglycerides. See LDL-Chol, Direct. 05/21/2017 Lab Results Component Value Date TG 497 05/21/2017 10-year ASCVD risk: 14% Albumin/Creat Ratio (mg/g) Date Value 09/10/2017 225 (H) PHARMACOTHERAPY ASSESSMENT/PLAN: 1. Type 2 diabetes mellitus with diabetic nephropathy, with long-term current use of insulin (HCC) - ICD9: 250.40, 583.81, V58.67, ICD10: E11.21, Z79.4 (primary diagnosis) A1c goal <8% but can consider less strict goal of <7% given age; A1c has improved (8.5-->7.5%) and patient pleased with progress; patient tolerating regimen well; SMBGs show FBGs are mostly at goal of 80-130 mg/dL; patient happy and prefers to continue with current regimen for now; will review SMBG next month to determine if adjustments need made to basal insulin; renal fxn and LFTs WNL and appropriate for continued use - CONTINUE metformin 1000mg BID, liraglutide 1.8mg daily, and insulin degludec 70 units daily 2. Essential hypertension - ICD9: 401.9, ICD10: I10 BP goal <140/90; controlled on current regimen and tolerating well; renal fxn, K+, and HR WNL and appropriate for continued use - CONTINUE amlodipine 5mg daily, atenolol 50mg daily, and losartan 50mg daily 3. Tobacco abuse - ICD9: 305.1, ICD10: Z72.0 Precontemplative stage of change; patient unwilling to quit at this time - reports she needs smoking to help with stress; PharmD encouraged patient to think about her own health instead of worrying only about the health of her family members; will continue to address at future appts Patient is scheduled to see PCP on 04/18. Patient to return to clinic for PharmD f/u on 05/25. Patient verbalized understanding of instructions. Suman Cabrera, Amandeep, [facility] Primary Care Clinical Pharmacist [place] Referring Provider: MELYSSA MOBLEY [[id number]] Allergies As of Date: 04/06/2018 Noted Allergy Reaction PENICILLIN G 04/18/2013 7 - Swelling REQUIP (ROPINIROLE) 04/18/2013 14 - Other: See Comments Comments: seizures Date Reviewed: 01/13/2018 Reviewed by: Fred Cuevas LPN - Fully Assessed Reason for Visit: Allied Health Visit [5] Cmt: DM f/u Primary Visit Diagnosis:Type 2 diabetes mellitus with diabetic nephropathy, with long-term current use of insulin (HCC) [E11.21, Z79.4] Other Visit Diagnoses:Essential hypertension [I10] Tobacco abuse [Z72.0] Prescriptions as of 04/06/2018 Sig: TRIAMCINOLONE ACETONIDE 55 MC* Use 2 Sprays in the nose once* LIRAGLUTIDE 0.6 MG/0.1 ML (18* Inject 1.8 mg subcutaneously * INSULIN DEGLUDEC (U-100) 100 * Inject 70 Units subcutaneousl* KETOCONAZOLE 2 % TOPICAL CREAM Apply 1 application to affect* GABAPENTIN 100 MG CAPSULE TAKE 1 CAPSULE BY MOUTH 3 TI* NAPROXEN 500 MG TABLET Take 1 tablet by mouth twice * FREESTYLE LANCETS 28 GAUGE CHECK BLOOD GLUCOSE TWO TIME* LIDOCAINE 5 % TOPICAL CREAM Apply 1 application to affect* METFORMIN 1,000 MG TABLET Take 1 tablet by mouth twice * AMLODIPINE 5 MG TABLET TAKE 1 TABLET BY MOUTH ONCE D* VENLAFAXINE ER 150 MG CAPSULE* TAKE 1 CAPSULE BY MOUTH ONCE* FENOFIBRATE NANOCRYSTALLIZED * TAKE 1 TABLET BY MOUTH ONCE D* LOSARTAN 100 MG TABLET TAKE ONE-HALF TABLET BY MOUT* ATORVASTATIN 20 MG TABLET TAKE 1 TABLET BY MOUTH ONCE D* ATENOLOL 50 MG TABLET TAKE 1 TABLET BY MOUTH ONCE D* OMEPRAZOLE 20 MG CAPSULE,SAYRA* TAKE 1 CAPSULE BY MOUTH HUGO* MONTELUKAST 10 MG TABLET TAKE 1 TABLET BY MOUTH DAILY* PEN NEEDLE, DIABETIC 31 GAUGE* Use one needle per dose. once* BLOOD SUGAR DIAGNOSTIC STRIPS Use as instructed LINZESS 145 MCG CAPSULE take 1 capsule by mouth once * SYRINGE WITH NEEDLE, SAFETY 3* 1 mL once each week. ASPIRIN 81 MG TABLET,DELAYED * Take 1 tablet by mouth once d* Problem List As Of Date 04/06/2018 Noted Resolved Anxiety and depression [F41.9, F32.9] INVALID FOR* More... Hyperlipidemia [E78.5] INVALID FOR* More... Hypertension [I10] INVALID FOR* More... Fibromyalgia syndrome [M79.7] INVALID FOR* More... Tobacco abuse [Z72.0] INVALID FOR* More... 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 Proteinuria [R80.9] INVALID FOR* Tendinitis of thumb [M77.8] INVALID FOR* More... Raynaud's syndrome [I73.00] INVALID FOR* More... Irritable bowel syndrome with diarrhea [K58.0] INVALID FOR* Restless leg syndrome [G25.81] INVALID FOR* Chronic pain syndrome [G89.4] INVALID FOR* Encounter Status:Closed by PANTERA (PHARMACIST)SUMAN on 04/06/18 [place] Observed: 04/04/2018 Status: COMPLETED Source: [place] 12:00 AM [facility] REPOSITORY Patient Outreach (FAMPST) JAROD LOONEY ([id number]) 1970 F Date Time Provider Department 04/04/18 [facility] During your visit today, we recorded the following information about you: Allergies As of Date: 04/04/2018 Noted Allergy Reaction PENICILLIN G 04/18/2013 7 - Swelling REQUIP (ROPINIROLE) 04/18/2013 14 - Other: See Comments Comments: seizures Date Reviewed: 01/13/2018 Reviewed by: Fred Cuevas LPN - Fully Assessed Visit Diagnosis:Medication management [Z79.899] Order(s):LIPID PANEL BASIC [SQLIPB] Order #: [id number] FUTURE Prescriptions as of 04/04/2018 Sig: PEN NEEDLE, DIABETIC 31 GAUGE* Use one needle per dose. once* LIRAGLUTIDE 0.6 MG/0.1 ML (18* Inject 1.8 mg subcutaneously * INSULIN DEGLUDEC (U-100) 100 * Inject 70 Units subcutaneousl* KETOCONAZOLE 2 % TOPICAL CREAM Apply 1 application to affect* NAPROXEN 500 MG TABLET Take 1 tablet by mouth twice * FREESTYLE LANCETS 28 GAUGE CHECK BLOOD GLUCOSE TWO TIME* LIDOCAINE 5 % TOPICAL CREAM Apply 1 application to affect* METFORMIN 1,000 MG TABLET Take 1 tablet by mouth twice * AMLODIPINE 5 MG TABLET TAKE 1 TABLET BY MOUTH ONCE D* VENLAFAXINE ER 150 MG CAPSULE* TAKE 1 CAPSULE BY MOUTH ONCE* FENOFIBRATE NANOCRYSTALLIZED * TAKE 1 TABLET BY MOUTH ONCE D* LOSARTAN 100 MG TABLET TAKE ONE-HALF TABLET BY MOUT* ATORVASTATIN 20 MG TABLET TAKE 1 TABLET BY MOUTH ONCE D* ATENOLOL 50 MG TABLET TAKE 1 TABLET BY MOUTH ONCE D* OMEPRAZOLE 20 MG CAPSULE,SAYRA* TAKE 1 CAPSULE BY MOUTH HUGO* MONTELUKAST 10 MG TABLET TAKE 1 TABLET BY MOUTH DAILY* BLOOD SUGAR DIAGNOSTIC STRIPS Use as instructed LINZESS 145 MCG CAPSULE take 1 capsule by mouth once * SYRINGE WITH NEEDLE, SAFETY 3* 1 mL once each week. ASPIRIN 81 MG TABLET,DELAYED * Take 1 tablet by mouth once d* Problem List As Of Date 04/04/2018 Noted Resolved Anxiety and depression [F41.9, F32.9] INVALID FOR* More... Hyperlipidemia [E78.5] INVALID FOR* More... Hypertension [I10] INVALID FOR* More... Fibromyalgia syndrome [M79.7] INVALID FOR* More... Tobacco abuse [Z72.0] INVALID FOR* More... 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 Proteinuria [R80.9] INVALID FOR* Tendinitis of thumb [M77.8] INVALID FOR* More... Raynaud's syndrome [I73.00] INVALID FOR* More... Irritable bowel syndrome with diarrhea [K58.0] INVALID FOR* Restless leg syndrome [G25.81] INVALID FOR* Chronic pain syndrome [G89.4] INVALID FOR* Encounter Status:Closed by SHANNAN FISHER on 04/19/18 URGENT CARE VISIT Observed: 04/02/2018 Status: F Source: [place] REPORT 11:00 AM [facility] [place] REPOSITORY [facility] [address] [place] [address] OFFICE VISIT Date of Service: 04/02/18 MR#: [id number] Acct: [id number] Name: JAROD LOONEY Rep #: [id number] : 1970 Provider: MARY Hylton Age/Sex: 47/F Location: [facility] Status: Signed Intake Vital Signs04/02/18 Body Mass Index (BMI) 29.9 04/02/18 Height 5 ft 4 in Intake Visit Reasons: Sinus infection Chief Complaint: sinus pressure Voice Network Engineer Required: No Accompanied by: Friend Is patient in pain?: No Allergies Penicillins Allergy (Verified 04/02/18 10:50) Swelling ropinirole HCl [From Requip] Allergy (Verified 04/02/18 10:50) Other Medications Atenolol [Tenormin] 25 mg PO DAILY 05/01/13 [History Confirmed 04/02/18] Gabapentin 300 mg PO QHS 05/01/13 [History Confirmed 04/02/18] Glimepiride [Amaryl] 2 mg PO DAILY 05/01/13 [History Confirmed 04/02/18] Losartan Potassium [Cozaar] 50 mg PO BID 05/01/13 [History Confirmed 04/02/18] Metformin HCl [Glucophage] 1,000 mg PO BID 05/01/13 [History Confirmed 04/02/18] Montelukast [Singulair] 10 mg PO DAILY 05/01/13 [History Confirmed 04/02/18] Niacin SA [Niaspan] 500 mg PO QHS 05/01/13 [History Confirmed 04/02/18] Ondansetron [Zofran Odt] 4 mg PO Q8H PRN PRN #10 tab 05/01/13 [Rx Confirmed 04/02/18] Pravastatin [Pravachol] 80 mg PO BID 05/01/13 [History Confirmed 04/02/18] Omeprazole [Prilosec] 40 mg PO DAILY #30 cap 05/09/13 [Rx Confirmed 04/02/18] fenofibrate nanocrystallized 145 mg tablet PO 30 Days #30 04/14/17 [History Confirmed 04/02/18] linaclotide 145 mcg capsule PO 90 Days #90 04/14/17 [History Confirmed 04/02/18] liraglutide 0.6 mg/0.1 mL (18 mg/3 mL) subcutaneous pen injector SC 90 Days #18 04/14/17 [History Confirmed 04/02/18] doxycycline monohydrate 100 mg capsule 100 mg PO Q12H 10 Days #20 cap 04/02/18 [Rx Confirmed 04/02/18] PFSH Medical History Diabetes (Acute) Hay fever (Acute) Kidney disease (Acute) Hypertension (Chronic) Social History Smoking Status: Current every day smoker alcohol intake: never HPI HPI Chief Complaint: sinus pressure Details: JAROD LOONEY, is a 47 F who presents to the office today for facial pain and sinus pressure and congestion for the past 3 weeks. She has been using ibuprofen, acetaminophen, saline nasal spray and running a vaporizer. She states her symptoms are worsening. ROS Const Constitutional: Positive for headache(s) Eyes Eyes: No change in vision ENT ENT: Positive for ear pressure, nasal congestion, nasal discharge, facial pain, sinus pain, headache(s) and sinus pressure; no dizziness/vertigo or sore throat Resp Respiratory: No cough, chest congestion, shortness of breath or wheezing Cardio Cardiology: No chest pain at rest or chest pain with exertion Gastro GI: No abdominal pain, diarrhea, vomiting or nausea/dyspepsia Musc Musculoskeletal: No back pain Skin Skin: No rash or change in skin color Neuro Neurology: Positive for headache(s) Aller/Imm Allergy/Immunologic: No wheezing Exam Const General: healthy appearing, no acute distress Orientation: oriented x3, oriented to person, oriented to place, oriented to time [facility] Head: normocephalic Ears: external ears normal, TM's normal bilaterally, EAC's normal Face and sinus: sinus tenderness frontal and maxillary Eyes General: appearance normal, both eyes and all related structures Conjunctivae: conjunctivae normal Sclera: sclerae normal Pupils: PERRL Neck Neck: no lymphadenopathy Thyroid: thyroid normal Chest Chest palpation AND inspection: normal inspection of the chest Resp Effort AND Inspection: normal respiratory effort, no cough, no respiratory distress Auscultation: Bilateral: Clear to Auscultation Cardio Rate: regular rate Rhythm: regular rhythm GI Inspection: normal to inspection Auscultation: normal bowel sounds Palpation: no hepatosplenomegaly, no splenomegaly, no masses Skin General: no pallor Rashes: no rashes Nails: no clubbing Neuro General: oriented x3, gait normal Extrem General: normal to inspection, no pedal edema, no calf tenderness, normal gait, no edema, no cyanosis, no clubbing, no calf tenderness bilaterally, no pedal edema Psych Mood: congruent mood Affect: normal affect Speech and Movement: speech and movement normal Assessment AND Plan 1. Acute maxillary sinusitis, recurrence not specified J01.00 Plan Patient was instructed to keep well-hydrated. Continue ibuprofen or acetaminophen as needed for pain. She was instructed to begin Flonase or Nasacort. She was instructed to complete the entire course of doxycycline. Return to the clinic or follow- up with your primary care physician if symptoms worsen. She was strongly encouraged to discontinue smoking. Plan Detail Other Medications New: Coding Level of Care Code Off vis,est,level 4 Diagnoses Acute maxillary sinusitis, recurrence not specified J01.00 Sinusitis location: maxillary Chronicity: acute Recurrence: not specified as recurrent 04/02/18 1100 <Electronically signed by Syl HERNANDEZ> Date Syl HERNANDEZ Cosigner Signature: Date (if applicable) CC: HEMOGLOBIN A1C Collected: 04/01/2018 Status: F Source: [place] 7:59 AM [facility] REPOSITORY TYPE CODE TESTS RESULT OUT OF REFERENCE UNITS RANGE LAB HGBA1C 4.3-5.6 % High Hemoglobin A1c 7.5 Result Comment: [place] [employer] guidelines indicate that patients with HgbA1c in the range 5.7-6.4% are at increased risk for development of diabetes, and intervention by lifestyle modification may be beneficial. HgbA1c greater or equal to 6.5% is considered diagnostic of diabetes. LAB HBA0 mg/dL Est. Average Glucose 169 Result Comment: eAG: (Estimated average glucose) is a calculated value from HgbA1c and is payroll representative of the average blood glucose level in the last 2-3 month period. Performed By: #### HBA1C, BMP #### [facility] [address] [id number] BASIC METABOLIC PANL Collected: 04/01/2018 Status: F Source: [place] 7:59 AM [facility] REPOSITORY TYPE CODE TESTS RESULT OUT OF REFERENCE UNITS RANGE LAB GLU 74-99 mg/dL High Glucose 186 Result Comment: The [place] Diabetes Association (ADA) provides guidance for cutoff values for fasting glucose and random glucose. The ADA defines fasting as no caloric intake for at least 8 hours. Fas ting plasma glucose results between 100 to 125 mg/dL indicate increased risk for diabetes (prediabetes). Fasting plasma glucose results greater than or equal to 126 mg/dL meet the criteria for diagnosis of diabetes. In the absence of unequivocal hyperglycemia, results should be confirmed by repeat testing. In a patient with classic symptoms of hyperglycemia or hyperglycemic crisis, random plasma glucose results greater than or equal to 200 mg/dL meet the criteria for diagnosis of diabetes. Reference: Standards of Medical Care in Diabetes 2016, [place] [employer] Association. Diabetes Care. 2016.39(Suppl 1). LAB BUN 7-21 mg/dL BUN 10 LAB CRET 0.58-0.96 mg/dL Creatinine Low 0.53 LAB NA 136-144 mmol/L Sodium 138 LAB K 3.7-5.1 mmol/L Potassium 4.1 LAB CL 97-105 mmol/L Chloride 102 LAB CO2 22-30 mmol/L CO2 23 LAB AGAP 9-18 mmol/L Anion Gap 13 LAB CA 8.5-10.2 mg/dL Calcium, Total 9.6 LAB GFRAA eGFR- Amer. >60 LAB GFRNAA . eGFR-All Other Races >60 Result Comment: eGFR (Estimated GFR) Units of measure: mL/min/1.73 meters squared eGFR is derived from the reexpressed MDRD Study equation using the following parameters: serum creatinine, age, gender and race. The creatinine assay has been calibrated to be traceable to IDMS. An eGFR <60 mL/min/1.73m2 for >3 months is consistent with chronic kidney disease. Refer to KDOQI guidelines for clinical interpretation. In patients with unstable renal function, e.g. those with acute kidney injury, the eGFR may not accurately reflect actual GFR. Performed By: #### HBA1C, BMP #### [facility] [address] [place], [place] [address] PROGRESS Observed: 02/23/2018 Status: COMPLETED Source: [place] 1:30 PM [facility] REPOSITORY HNO ID: [id number] Author: Suman Cabrera (Pharmacist) Service: (none) Author Type: Pharmacist Type: Progress Notes Filed: 02/23/2018 2:48 PM Note Text: Patient consents to pharmacy collaborative practice agreement. REASON FOR CONSULT: DM? GOALS: A1c <?8% CONSULTING PROVIDER: Cindy Molina CNP?? Date of Consult: 04/2017 ? Jarod Looney is a 47 year old female was last seen by PCP, Dr. MELYSSA MOBLEY MD on 01/13. Subjective: Patient is presenting today with mother, Ying Phelan, for f/u pharmacotherapy management appointment for diabetes. At last PharmD visit on 01/25, insulin degludec dose was increased. INTERIM HISTORY: Reports BGs are doing pretty well Reports feeling low when BG around 90 Thinks she may be starting to get neuropathy in right hand (finger tips) Still not interested in quitting smoking Past DM medications: Liraglutide switched to dulaglutide on 08/24/17 - BGs not at goal Dulaglutide switched back to liraglutide on 12/22/17 - pain with dulaglutide injection ? Current DM Medications: Insulin degludec 70 units once daily Metformin 1,000mg BID Liraglutide 1.8mg daily ? Current HTN Medications: Amlodipine 5mg once daily Atenolol 50mg once daily Losartan 50mg once daily (take 0.5 tablet of 100mg) ? Preventative Medications: ? On MANDY/ARB: Yes ? On Statin: Yes ? On ASA: Yes ROS: ? Patient denies CP, SOB, TATUM, blurred vision, dizziness or lightheadedness ? Patient denies symptoms of hypoglycemia (sweating, anxiety, palpitations, hunger, and tremor) ? Patient denies symptoms of hyperglycemia (polyuria, polydipsia, polyphagia) ? Patient denies potential medication adverse effects DIET/EXERCISE/SOCIAL Hx: ? Eating low carb mini bagels and yogurt MEDICATIONS: ? Pill bottles are not present. ? Adherence: reports missed doses - reports missing insulin on . ? [facility] ([facility] order)? Rx coverage: [facility] ? Affordability: denies issue ? Diabetes supplies: One Touch ? Organization System: pill box ACTIVE PROBLEM LIST Anxiety and Depression Hyperlipidemia Hypertension Fibromyalgia Syndrome Tobacco Abuse Type 2 Diabetes Mellitus With Diabetic Nephropathy (Hcc) Proteinuria Tendinitis of Thumb Raynaud's Syndrome Irritable Bowel Syndrome With Diarrhea Restless Leg Syndrome Chronic Pain Syndrome PAST MEDICAL HISTORY Diagnosis Date - De Quervain's tenosynovitis, bilateral - Diabetes (HCC) - Hypercholesterolemia - Raynaud's disease ALLERGIES Allergen Reactions - Penicillin G Swelling - Requip [Ropinirole] Other: See Comments seizures Medication List Medication Directions Comments Action/Plan amLODIPine (NORVASC) 5 mg tablet TAKE 1 TABLET BY MOUTH ONCE DAILY aspirin, enteric coated (ADULT LOW DOSE ASPIRIN) 81 mg EC tablet Take 1 tablet by mouth once daily. atenolol (TENORMIN) 50 mg tablet TAKE 1 TABLET BY MOUTH ONCE DAILY atorvastatin (LIPITOR) 20 mg tablet TAKE 1 TABLET BY MOUTH ONCE DAILY blood sugar diagnostic (HiphuntersTOUCH ULTRA TEST) test strip Use as instructed fenofibrate nanocrystallized (TRICOR) 145 mg tablet TAKE 1 TABLET BY MOUTH ONCE DAILY FREESTYLE LANCETS 28 gauge misc CHECK BLOOD GLUCOSE TWO TIMES DAILY gabapentin (NEURONTIN) 100 mg capsule TAKE 1 CAPSULE BY MOUTH 3 TIMES DAILY insulin degludec (TRESIBA FLEXTOUCH U-100) 100 unit/mL (3 mL) injection Inject 70 Units subcutaneously once daily. insulin needles, DISPOSABLE, (PEN NEEDLE) 31 gauge x 5/16 ndle Use one needle per dose. once per day. ketoconazole (NIZORAL) 2 % cream Apply 1 application to affected area once daily. Apply to rash and surrounding area lidocaine (ANECREAM5) crea Apply 1 application to affected area as needed. Prior to using Trulicity weekly. Allow cream to dry completely prior to injection. LINZESS 145 mcg cap take 1 capsule by mouth once daily liraglutide (VICTOZA) 0.6 mg/ 0.1 ml subcutaneous pen injector Inject 1.8 mg subcutaneously once daily. losartan (COZAAR) 100 mg tablet TAKE ONE-HALF TABLET BY MOUTH ONCE DAILY metFORMIN (GLUCOPHAGE) 1,000 mg tablet Take 1 tablet by mouth twice daily with meals. montelukast (SINGULAIR) 10 mg tablet TAKE 1 TABLET BY MOUTH DAILY AT BEDTIME naproxen (NAPROSYN) 500 mg tablet Take 1 tablet by mouth twice daily as needed (for pain/inflammation). Take with food. omeprazole (PRILOSEC) 20 mg capsule TAKE 1 CAPSULE BY MOUTH DAILY BEFORE BREAKFAST Syringe with Needle, Safety (3CC SAFETY SYRINGE 25GX5/8) 3 mL 25 x 5/8 syrg 1 mL once each week. venlafaxine ER (EFFEXOR XR) 150 mg 24 hr capsule TAKE 1 CAPSULE BY MOUTH ONCE DAILY GLYCEMIC CONTROL: ? Glucometer present at visit: No ? SMBG?s: Date Fasting AM 2 hr PP Before Lunch 2 hr PP Before Dinner 2 hr PP Bedtime 11/29 166 02/21 141 94 02/20 170 02/13 108 02/12 262 (ate BIG breakfast) 191 02/09 123 02/08 147 135 02/07 119 205 02/05 105 02/02 154 02/01 146 95 01/31 123 01/30 190 01/29 130 ? Hypoglycemia: felt low with 94; nothing <70 ? How corrected: ate apple and protein Objective: VITALS: BP 130/80 Last 3 Encounter BP Readings: Date: BP: 01/25/2018 146/89 01/13/2018 124/82 12/07/2017 122/81 Wt: 84.4 kg (186 lb) BMI: 30.95 kg/(m2) LABS Lab Results Component Value Date HBA1C 8.5 12/17/2017 HBA1C 8.7 08/13/2017 HBA1C 9.2 05/21/2017 CMP: Glucose 185 12/17/2017 BUN 11 12/17/2017 Creatinine 0.62 12/17/2017 Sodium 138 12/17/2017 Potassium 4.4 12/17/2017 Chloride 101 12/17/2017 CO2 23 12/17/2017 Protein, Total 6.8 05/21/2017 Albumin 4.3 05/21/2017 Calcium 10.0 12/17/2017 Alkaline Phosphatase 84 05/21/2017 Bilirubin, Total 0.2 05/21/2017 AST 14 05/21/2017 ALT 22 05/21/2017 Estimated CrCL 119.6?mL/min (calculated using Ht 165.1?cm, adjusted Wt 68.3?kg, sCr 0.62?mg/dL, using [place] Gault) Last Lipid Panel Lab Results Component Value Date CHOL 171 05/21/2017 Lab Results Component Value Date HDL 29 05/21/2017 Lab Results Component Value Date LDL Unable to calculate due to increased Triglycerides. See LDL-Chol, Direct. 05/21/2017 Lab Results Component Value Date TG 497 05/21/2017 10-year ASCVD risk: 14% Albumin/Creat Ratio (mg/g) Date Value 09/10/2017 225 (H) PHARMACOTHERAPY ASSESSMENT/PLAN: 1. Type 2 diabetes mellitus with diabetic nephropathy, with long-term current use of insulin (HCC) - ICD9: 250.40, 583.81, V58.67, ICD10: E11.21, Z79.4 (primary diagnosis) A1c goal <8% but can consider reducing goal to <7% given age; uncontrolled based on last A1c (8.5%) but due for recheck in 1 month; SMBG log shows improvement since last insulin dose increase without concerns for lows, some FBGs now at goal of 80-130 mg/dL; still tolerating liraglutide well; since patient is having more BGs at goal and several pre-meal readings are <100, will not increase insulin dose today; renal fxn and LFTs WNL and appropriate for continued use - CONTINUE metformin 1000mg BID, liraglutide 1.8mg daily, and insulin degludec 70 units daily - A1c recheck next month 2. Essential hypertension - ICD9: 401.9, ICD10: I10 BP goal <140/90; controlled on current regimen and tolerating well; renal fxn, K+, and HR WNL and appropriate for continued use - CONTINUE amlodipine 5mg daily, atenolol 50mg daily, and losartan 50mg daily 3. Tobacco abuse - ICD9: 305.1, ICD10: Z72.0 Precontemplative stage of change; patient unwilling to quit at this time; PharmD will continue to address at future appts Patient does not have f/u appt scheduled with PCP. PharmD encouraged patient to call office to schedule a f/u appt soon. Patient to return to clinic for PharmD f/u on 04/06/18. Patient verbalized understanding of instructions. Suman Cabrera PharmD, [facility] Primary Care Clinical Pharmacist [facility] CNOV Observed: 02/23/2018 Status: COMPLETED Source: [place] 1:30 PM [facility] REPOSITORY Office Visit (PHMEWO) JAROD LOONEY ([id number]) 1970 F Date Time Provider Department 02/23/18 1:30 PM PANTERA (PHARMACIST)SUMAN During your visit today, we recorded the following information about you: Blood pressure 130/80 DEO LACY 02/23/2018 2:48 PM Signed Patient consents to pharmacy collaborative practice agreement. REASON FOR CONSULT: DM? GOALS: A1c <?8% CONSULTING PROVIDER: Cindy Moilna CNP?? Date of Consult: 04/2017 ? Jarod Looney is a 47 year old female was last seen by PCP, Dr. MELYSSA MOBLEY MD on 01/13. Subjective: Patient is presenting today with mother, Ying Phelan, for f/u pharmacotherapy management appointment for diabetes. At last PharmD visit on 01/25, insulin degludec dose was increased. INTERIM HISTORY: Reports BGs are doing pretty well Reports feeling low when BG around 90 Thinks she may be starting to get neuropathy in right hand (finger tips) Still not interested in quitting smoking Past DM medications: Liraglutide switched to dulaglutide on 08/24/17 - BGs not at goal Dulaglutide switched back to liraglutide on 12/22/17 - pain with dulaglutide injection ? Current DM Medications: Insulin degludec 70 units once daily Metformin 1,000mg BID Liraglutide 1.8mg daily ? Current HTN Medications: Amlodipine 5mg once daily Atenolol 50mg once daily Losartan 50mg once daily (take 0.5 tablet of 100mg) ? Preventative Medications: ? On MANDY/ARB: Yes ? On Statin: Yes ? On ASA: Yes ROS: ? Patient denies CP, SOB, TATUM, blurred vision, dizziness or lightheadedness ? Patient denies symptoms of hypoglycemia (sweating, anxiety, palpitations, hunger, and tremor) ? Patient denies symptoms of hyperglycemia (polyuria, polydipsia, polyphagia) ? Patient denies potential medication adverse effects DIET/EXERCISE/SOCIAL Hx: ? Eating low carb mini bagels and yogurt MEDICATIONS: ? Pill bottles are not present. ? Adherence: reports missed doses - reports missing insulin on . ? Pharmacy: [facility] ([facility])? Rx coverage: [employer] ? Affordability: denies issue ? Diabetes supplies: One Touch ? Organization System: pill box ACTIVE PROBLEM LIST Anxiety and Depression Hyperlipidemia Hypertension Fibromyalgia Syndrome Tobacco Abuse Type 2 Diabetes Mellitus With Diabetic Nephropathy (Hcc) Proteinuria Tendinitis of Thumb Raynaud's Syndrome Irritable Bowel Syndrome With Diarrhea Restless Leg Syndrome Chronic Pain Syndrome PAST MEDICAL HISTORY Diagnosis Date - De Quervain's tenosynovitis, bilateral - Diabetes (HCC) - Hypercholesterolemia - Raynaud's disease ALLERGIES Allergen Reactions - Penicillin G Swelling - Requip [Ropinirole] Other: See Comments seizures Medication List Medication Directions Comments Action/Plan amLODIPine (NORVASC) 5 mg tablet TAKE 1 TABLET BY MOUTH ONCE DAILY aspirin, enteric coated (ADULT LOW DOSE ASPIRIN) 81 mg EC tablet Take 1 tablet by mouth once daily. atenolol (TENORMIN) 50 mg tablet TAKE 1 TABLET BY MOUTH ONCE DAILY atorvastatin (LIPITOR) 20 mg tablet TAKE 1 TABLET BY MOUTH ONCE DAILY blood sugar diagnostic (NEURONIXUCH ULTRA TEST) test strip Use as instructed fenofibrate nanocrystallized (TRICOR) 145 mg tablet TAKE 1 TABLET BY MOUTH ONCE DAILY FREESTYLE LANCETS 28 gauge misc CHECK BLOOD GLUCOSE TWO TIMES DAILY gabapentin (NEURONTIN) 100 mg capsule TAKE 1 CAPSULE BY MOUTH 3 TIMES DAILY insulin degludec (TRESIBA FLEXTOUCH U-100) 100 unit/mL (3 mL) injection Inject 70 Units subcutaneously once daily. insulin needles, DISPOSABLE, (PEN NEEDLE) 31 gauge x 5/16 ndle Use one needle per dose. once per day. ketoconazole (NIZORAL) 2 % cream Apply 1 application to affected area once daily. Apply to rash and surrounding area lidocaine (ANECREAM5) crea Apply 1 application to affected area as needed. Prior to using Trulicity weekly. Allow cream to dry completely prior to injection. LINZESS 145 mcg cap take 1 capsule by mouth once daily liraglutide (VICTOZA) 0.6 mg/ 0.1 ml subcutaneous pen injector Inject 1.8 mg subcutaneously once daily. losartan (COZAAR) 100 mg tablet TAKE ONE-HALF TABLET BY MOUTH ONCE DAILY metFORMIN (GLUCOPHAGE) 1,000 mg tablet Take 1 tablet by mouth twice daily with meals. montelukast (SINGULAIR) 10 mg tablet TAKE 1 TABLET BY MOUTH DAILY AT BEDTIME naproxen (NAPROSYN) 500 mg tablet Take 1 tablet by mouth twice daily as needed (for pain/inflammation). Take with food. omeprazole (PRILOSEC) 20 mg capsule TAKE 1 CAPSULE BY MOUTH DAILY BEFORE BREAKFAST Syringe with Needle, Safety (3CC SAFETY SYRINGE 25GX5/8) 3 mL 25 x 5/8 syrg 1 mL once each week. venlafaxine ER (EFFEXOR XR) 150 mg 24 hr capsule TAKE 1 CAPSULE BY MOUTH ONCE DAILY GLYCEMIC CONTROL: ? Glucometer present at visit: No ? SMBG?s: Date Fasting AM 2 hr PP Before Lunch 2 hr PP Before Dinner 2 hr PP Bedtime 02/23 166 02/21 141 94 02/20 170 02/13 108 02/12 262 (ate BIG breakfast) 191 02/09 123 02/08 147 135 02/07 119 205 02/05 105 02/02 154 02/01 146 95 01/31 123 01/30 190 01/29 130 ? Hypoglycemia: felt low with 94; nothing <70 ? How corrected: ate apple and protein Objective: VITALS: BP 130/80 Last 3 Encounter BP Readings: Date: BP: 01/25/2018 146/89 01/13/2018 124/82 12/07/2017 122/81 Wt: 84.4 kg (186 lb) BMI: 30.95 kg/(m2) LABS Lab Results Component Value Date HBA1C 8.5 12/17/2017 HBA1C 8.7 08/13/2017 HBA1C 9.2 05/21/2017 CMP: Glucose 185 12/17/2017 BUN 11 12/17/2017 Creatinine 0.62 12/17/2017 Sodium 138 12/17/2017 Potassium 4.4 12/17/2017 Chloride 101 12/17/2017 CO2 23 12/17/2017 Protein, Total 6.8 05/21/2017 Albumin 4.3 05/21/2017 Calcium 10.0 12/17/2017 Alkaline Phosphatase 84 05/21/2017 Bilirubin, Total 0.2 05/21/2017 AST 14 05/21/2017 ALT 22 05/21/2017 Estimated CrCL 119.6?mL/min (calculated using Ht 165.1?cm, adjusted Wt 68.3?kg, sCr 0.62?mg/dL, using [place] Gault) Last Lipid Panel Lab Results Component Value Date CHOL 171 05/21/2017 Lab Results Component Value Date HDL 29 05/21/2017 Lab Results Component Value Date LDL Unable to calculate due to increased Triglycerides. See LDL-Chol, Direct. 05/21/2017 Lab Results Component Value Date TG 497 05/21/2017 10-year ASCVD risk: 14% Albumin/Creat Ratio (mg/g) Date Value 09/10/2017 225 (H) PHARMACOTHERAPY ASSESSMENT/PLAN: 1. Type 2 diabetes mellitus with diabetic nephropathy, with long-term current use of insulin (HCC) - ICD9: 250.40, 583.81, V58.67, ICD10: E11.21, Z79.4 (primary diagnosis) A1c goal <8% but can consider reducing goal to <7% given age; uncontrolled based on last A1c (8.5%) but due for recheck in 1 month; SMBG log shows improvement since last insulin dose increase without concerns for lows, some FBGs now at goal of 80-130 mg/dL; still tolerating liraglutide well; since patient is having more BGs at goal and several pre-meal readings are <100, will not increase insulin dose today; renal fxn and LFTs WNL and appropriate for continued use - CONTINUE metformin 1000mg BID, liraglutide 1.8mg daily, and insulin degludec 70 units daily - A1c recheck next month 2. Essential hypertension - ICD9: 401.9, ICD10: I10 BP goal <140/90; controlled on current regimen and tolerating well; renal fxn, K+, and HR WNL and appropriate for continued use - CONTINUE amlodipine 5mg daily, atenolol 50mg daily, and losartan 50mg daily 3. Tobacco abuse - ICD9: 305.1, ICD10: Z72.0 Precontemplative stage of change; patient unwilling to quit at this time; PharmD will continue to address at future appts Patient does not have f/u appt scheduled with PCP. PharmD encouraged patient to call office to schedule a f/u appt soon. Patient to return to clinic for PharmD f/u on 04/06/18. Patient verbalized understanding of instructions. Suman Cabrera, Amandeep, [facility] Primary Care Clinical Pharmacist [place] SUMAN CABRERA, PHARMACIST 02/23/2018 1:48 PM Addendum No med changes today Please get bloodwork done prior to next appt Referring Provider: MELYSSA MOBLEY [[id number]] Allergies As of Date: 02/23/2018 Noted Allergy Reaction PENICILLIN G 04/18/2013 7 - Swelling REQUIP (ROPINIROLE) 04/18/2013 14 - Other: See Comments Comments: seizures Date Reviewed: 01/13/2018 Reviewed by: Fred Cuevas LPN - Fully Assessed Reason for Visit: Allied Health Visit [5] Cmt: DM f/u Primary Visit Diagnosis:Type 2 diabetes mellitus with diabetic nephropathy, with long-term current use of insulin (HCC) [E11.21, Z79.4] Other Visit Diagnoses:Essential hypertension [I10] Tobacco abuse [Z72.0] Order(s):BASIC METABOLIC PNL [SQBMP] Order #: [id number] FUTURE Prescriptions as of 02/23/2018 Sig: LIRAGLUTIDE 0.6 MG/0.1 ML (18* Inject 1.8 mg subcutaneously * INSULIN DEGLUDEC (U-100) 100 * Inject 70 Units subcutaneousl* KETOCONAZOLE 2 % TOPICAL CREAM Apply 1 application to affect* GABAPENTIN 100 MG CAPSULE TAKE 1 CAPSULE BY MOUTH 3 TI* NAPROXEN 500 MG TABLET Take 1 tablet by mouth twice * FREESTYLE LANCETS 28 GAUGE CHECK BLOOD GLUCOSE TWO TIME* LIDOCAINE 5 % TOPICAL CREAM Apply 1 application to affect* METFORMIN 1,000 MG TABLET Take 1 tablet by mouth twice * AMLODIPINE 5 MG TABLET TAKE 1 TABLET BY MOUTH ONCE D* VENLAFAXINE ER 150 MG CAPSULE* TAKE 1 CAPSULE BY MOUTH ONCE* FENOFIBRATE NANOCRYSTALLIZED * TAKE 1 TABLET BY MOUTH ONCE D* LOSARTAN 100 MG TABLET TAKE ONE-HALF TABLET BY MOUT* ATORVASTATIN 20 MG TABLET TAKE 1 TABLET BY MOUTH ONCE D* ATENOLOL 50 MG TABLET TAKE 1 TABLET BY MOUTH ONCE D* OMEPRAZOLE 20 MG CAPSULE,SAYRA* TAKE 1 CAPSULE BY MOUTH HUGO* MONTELUKAST 10 MG TABLET TAKE 1 TABLET BY MOUTH DAILY* PEN NEEDLE, DIABETIC 31 GAUGE* Use one needle per dose. once* BLOOD SUGAR DIAGNOSTIC STRIPS Use as instructed LINZESS 145 MCG CAPSULE take 1 capsule by mouth once * SYRINGE WITH NEEDLE, SAFETY 3* 1 mL once each week. ASPIRIN 81 MG TABLET,DELAYED * Take 1 tablet by mouth once d* Problem List As Of Date 02/23/2018 Noted Resolved Anxiety and depression [F41.9, F32.9] INVALID FOR* More... Hyperlipidemia [E78.5] INVALID FOR* More... Hypertension [I10] INVALID FOR* More... Fibromyalgia syndrome [M79.7] INVALID FOR* More... Tobacco abuse [Z72.0] INVALID FOR* More... 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 Proteinuria [R80.9] INVALID FOR* Tendinitis of thumb [M77.8] INVALID FOR* More... Raynaud's syndrome [I73.00] INVALID FOR* More... Irritable bowel syndrome with diarrhea [K58.0] INVALID FOR* Restless leg syndrome [G25.81] INVALID FOR* Chronic pain syndrome [G89.4] INVALID FOR* Other instructions from your clinician: No med changes today Please get bloodwork done prior to next appt Encounter Status:Closed by PANTERA (PHARMACIST)SUMAN on 02/23/18 PROGRESS Observed: 01/25/2018 Status: COMPLETED Source: [place] 2:00 PM [facility] REPOSITORY O ID: [id number] Author: Suman Cabrera (Pharmacist) Service: (none) Author Type: Pharmacist Type: Progress Notes Filed: 01/25/2018 5:32 PM Note Text: Patient consents to pharmacy collaborative practice agreement. REASON FOR CONSULT: DM? GOALS: A1c <?8% CONSULTING PROVIDER: Cindy Molina CNP?? Date of Consult: 04/2017 Jarod Looney is a 47 year old female was last seen by PCP, Dr. MELYSSA MOBLEY MD on 01/13. Subjective: Patient is presenting today with mother (Ying Phelan) for f/u pharmacotherapy management appointment for diabetes. At last PharmD visit on 12/22, insulin dose was increased to 65 units and dulaglutide was switched to liraglutide because patient had pain with dulaglutide injection. INTERIM HISTORY: Reports having a new cat (kept a stray, got it about 1.5 mo ago) Says her cat watches cat tv Named her Poppy Wilfredo Reports checking her BG daily She doesn't like checking her BG, but she is doing it States that her sugars are all over the place and she thinks it is because of the liraglutide Past DM medications: Liraglutide switched to dulaglutide on 08/24/17 - BGs not at goal Dulaglutide switched back to liraglutide on 12/22/17 - pain with dulaglutide injection ? Current DM Medications: Insulin degludec 65 units once daily Metformin 1,000mg BID Liraglutide 1.2mg daily (taking 1.8mg daily - increased to max dose 2 weeks ago) ? Current HTN Medications: Amlodipine 5mg once daily Atenolol 50mg once daily Losartan 50mg once daily (take 0.5 tablet of 100mg) Preventative Medications: ? On MANDY/ARB: Yes ? On Statin: Yes ? On ASA: Yes ROS: ? Patient denies CP, SOB, TATUM, blurred vision, dizziness or lightheadedness ? Patient denies symptoms of hypoglycemia (sweating, anxiety, palpitations, hunger, and tremor) ? Patient denies symptoms of hyperglycemia (polyuria, polydipsia, polyphagia) ? Patient denies potential medication adverse effects DIET/EXERCISE/SOCIAL Hx: ? Breakfast: oatmeal packet, bagel, scrambled eggs ? Snacks on apple and cheese prior to bedtime MEDICATIONS: ? Pill bottles are not present. ? Adherence: denies missed doses. ? Pharmacy: [facility] ([facility] order)? Rx coverage: [facility] ? Affordability: denies issue ? Diabetes supplies: One Touch ? Organization System: pill box ACTIVE PROBLEM LIST Anxiety and Depression Hyperlipidemia Hypertension Fibromyalgia Syndrome Tobacco Abuse Type 2 Diabetes Mellitus With Diabetic Nephropathy (Hcc) Proteinuria Tendinitis of Thumb Raynaud's Syndrome Irritable Bowel Syndrome With Diarrhea Restless Leg Syndrome Chronic Pain Syndrome PAST MEDICAL HISTORY Diagnosis Date - De Quervain's tenosynovitis, bilateral - Diabetes (HCC) - Hypercholesterolemia - Raynaud's disease ALLERGIES Allergen Reactions - Penicillin G Swelling - Requip [Ropinirole] Other: See Comments seizures Medication List Medication Directions Comments Action/Plan amLODIPine (NORVASC) 5 mg tablet TAKE 1 TABLET BY MOUTH ONCE DAILY aspirin, enteric coated (ADULT LOW DOSE ASPIRIN) 81 mg EC tablet Take 1 tablet by mouth once daily. atenolol (TENORMIN) 50 mg tablet TAKE 1 TABLET BY MOUTH ONCE DAILY atorvastatin (LIPITOR) 20 mg tablet TAKE 1 TABLET BY MOUTH ONCE DAILY blood sugar diagnostic (ONETOUCH ULTRA TEST) test strip Use as instructed fenofibrate nanocrystallized (TRICOR) 145 mg tablet TAKE 1 TABLET BY MOUTH ONCE DAILY FREESTYLE LANCETS 28 gauge misc CHECK BLOOD GLUCOSE TWO TIMES DAILY gabapentin (NEURONTIN) 100 mg capsule TAKE 1 CAPSULE BY MOUTH 3 TIMES DAILY insulin degludec (TRESIBA FLEXTOUCH U-100) 100 unit/mL (3 mL) injection Inject 65 Units subcutaneously once daily. taking insulin needles, DISPOSABLE, (PEN NEEDLE) 31 gauge x 5/16 ndle Use one needle per dose. once per day. ketoconazole (NIZORAL) 2 % cream Apply 1 application to affected area once daily. Apply to rash and surrounding area lidocaine (ANECREAM5) crea Apply 1 application to affected area as needed. Prior to using Trulicity weekly. Allow cream to dry completely prior to injection. LINZESS 145 mcg cap take 1 capsule by mouth once daily liraglutide (VICTOZA) 0.6 mg/ 0.1 ml subcutaneous pen injector Inject 0.6mg daily for 1 week, then increase to 1.2mg daily. Taking 1.8mg daily losartan (COZAAR) 100 mg tablet TAKE ONE-HALF TABLET BY MOUTH ONCE DAILY metFORMIN (GLUCOPHAGE) 1,000 mg tablet Take 1 tablet by mouth twice daily with meals. taking montelukast (SINGULAIR) 10 mg tablet TAKE 1 TABLET BY MOUTH DAILY AT BEDTIME naproxen (NAPROSYN) 500 mg tablet Take 1 tablet by mouth twice daily as needed (for pain/inflammation). Take with food. omeprazole (PRILOSEC) 20 mg capsule TAKE 1 CAPSULE BY MOUTH DAILY BEFORE BREAKFAST Syringe with Needle, Safety (3CC SAFETY SYRINGE 25GX5/8) 3 mL 25 x 5/8 syrg 1 mL once each week. venlafaxine ER (EFFEXOR XR) 150 mg 24 hr capsule TAKE 1 CAPSULE BY MOUTH ONCE DAILY GLYCEMIC CONTROL: ? Glucometer present at visit: No ? SMBG?s: Date Fasting AM 2 hr PP Before Lunch 2 hr PP Before Dinner 2 hr PP Bedtime 01/24 136 136 01/22 131 01/16 156 133 01/15 138 167 01/13 194 163 01/12 104 01/10 146 112 01/09 137 146 01/08 133 258 (after oatmeal and 1 bagel) 01/07 200 01/06 174 205 01/05 155 01/04 147 178 01/03 184 (ate late dinner 242 ? Hypoglycemia: none Objective: VITALS: BP 146/89 Pulse 86 Last 3 Encounter BP Readings: Date: BP: 01/13/2018 124/82 12/07/2017 122/81 11/14/2017 123/76 Wt: 84.4 kg (186 lb) BMI: 30.95 kg/(m2) LABS Lab Results Component Value Date HBA1C 8.5 12/17/2017 HBA1C 8.7 08/13/2017 HBA1C 9.2 05/21/2017 CMP: Glucose 185 12/17/2017 BUN 11 12/17/2017 Creatinine 0.62 12/17/2017 Sodium 138 12/17/2017 Potassium 4.4 12/17/2017 Chloride 101 12/17/2017 CO2 23 12/17/2017 Protein, Total 6.8 05/21/2017 Albumin 4.3 05/21/2017 Calcium 10.0 12/17/2017 Alkaline Phosphatase 84 05/21/2017 Bilirubin, Total 0.2 05/21/2017 AST 14 05/21/2017 ALT 22 05/21/2017 Estimated CrCL 119.6 mL/min (calculated using Ht 165.1 cm, adjusted Wt 68.3 kg, sCr 0.62 mg/dL, using [place] Gault) Last Lipid Panel Lab Results Component Value Date CHOL 171 05/21/2017 Lab Results Component Value Date HDL 29 05/21/2017 Lab Results Component Value Date LDL Unable to calculate due to increased Triglycerides. See LDL-Chol, Direct. 05/21/2017 Lab Results Component Value Date TG 497 05/21/2017 10-year ASCVD risk: 14% Albumin/Creat Ratio (mg/g) Date Value 09/10/2017 225 (H) PHARMACOTHERAPY ASSESSMENT/PLAN: 1. Type 2 diabetes mellitus with diabetic nephropathy, with long-term current use of insulin ([facility]) - ICD9: 250.40, 583.81, V58.67, ICD10: E11.21, Z79.4 (primary diagnosis) A1c goal <8% but can consider reducing goal to <7% given age; uncontrolled based on last A1c (8.5%); patient recently started checking BG daily - FBGs are mostly within range to <180 mg/dL; only has occasional BG >200; no concerns for hypoglycemia at this time; patient self-increased liraglutide dose to 1.8mg daily and is tolerating well; since patient may benefit from being treated to an A1c goal of <7%, will increase dose of basal insulin today to aim for FBG 80-130 mg/dL; PharmD encouraged patient to exercise more and try to cut back slightly on quantity of carbs with meals; renal fxn and LFTs WNL and appropriate for continued use - INCREASE insulin degludec to 70 units daily (~7% dose increase) - CONTINUE metformin 1000mg BID and liraglutide 1.8mg daily 2. Essential hypertension - ICD9: 401.9, ICD10: I10 BP goal <140/90; uncontrolled based on today's reading and recheck, but BP normally well controlled; patient does not do home BP monitoring; will continue to monitor BP at future appts - if remains elevated, will consider increasing the dose of an antihypertensive; renal fxn, K+, and HR WNL and appropriate for continued use - CONTINUE amlodipine 5mg daily, atenolol 50mg daily, and losartan 50mg daily 3. Tobacco abuse - ICD9: 305.1, ICD10: Z72.0 Precontemplative stage of change; patient unwilling to quit at this time; PharmD will continue to address at future appts Patient does not have f/u appt scheduled with PCP - will address at next appt. Patient to return to clinic for PharmD f/u on 02/23. Patient verbalized understanding of instructions. Suman Cabrera PharmD, [facility] Primary Care Clinical Pharmacist [facility] CNOV Observed: 01/25/2018 Status: COMPLETED Source: [place] 2:00 PM [facility] REPOSITORY Office Visit (PHMEWO) JAROD LOONEY ([id number]) 1970 F Date Time Provider Department 01/25/18 2:00 PM PANTERA (PHARMACIST)SUMAN During your visit today, we recorded the following information about you: Pulse Blood pressure 86/minute 146/89 DEO LACY 01/25/2018 5:32 PM Signed Patient consents to pharmacy collaborative practice agreement. REASON FOR CONSULT: DM? GOALS: A1c <?8% CONSULTING PROVIDER: Cindy Molina CNP?? Date of Consult: 04/2017 Jarod Richmonders is a 47 year old female was last seen by PCP, Dr. MELYSSA MOBLEY MD on 01/13. Subjective: Patient is presenting today with mother (Ying Phelan) for f/u pharmacotherapy management appointment for diabetes. At last PharmD visit on 12/22, insulin dose was increased to 65 units and dulaglutide was switched to liraglutide because patient had pain with dulaglutide injection. INTERIM HISTORY: Reports having a new cat (kept a stray, got it about 1.5 mo ago) Says her cat watches cat tv Named her Poppy Wilfredo Reports checking her BG daily She doesn't like checking her BG, but she is doing it States that her sugars are all over the place and she thinks it is because of the liraglutide Past DM medications: Liraglutide switched to dulaglutide on 08/24/17 - BGs not at goal Dulaglutide switched back to liraglutide on 12/22/17 - pain with dulaglutide injection ? Current DM Medications: Insulin degludec 65 units once daily Metformin 1,000mg BID Liraglutide 1.2mg daily (taking 1.8mg daily - increased to max dose 2 weeks ago) ? Current HTN Medications: Amlodipine 5mg once daily Atenolol 50mg once daily Losartan 50mg once daily (take 0.5 tablet of 100mg) Preventative Medications: ? On MANDY/ARB: Yes ? On Statin: Yes ? On ASA: Yes ROS: ? Patient denies CP, SOB, TATUM, blurred vision, dizziness or lightheadedness ? Patient denies symptoms of hypoglycemia (sweating, anxiety, palpitations, hunger, and tremor) ? Patient denies symptoms of hyperglycemia (polyuria, polydipsia, polyphagia) ? Patient denies potential medication adverse effects DIET/EXERCISE/SOCIAL Hx: ? Breakfast: oatmeal packet, bagel, scrambled eggs ? Snacks on apple and cheese prior to bedtime MEDICATIONS: ? Pill bottles are not present. ? Adherence: denies missed doses. ? Pharmacy: [facility] ([facility])? Rx coverage: [employer] ? Affordability: denies issue ? Diabetes supplies: One Touch ? Organization System: pill box ACTIVE PROBLEM LIST Anxiety and Depression Hyperlipidemia Hypertension Fibromyalgia Syndrome Tobacco Abuse Type 2 Diabetes Mellitus With Diabetic Nephropathy (Hcc) Proteinuria Tendinitis of Thumb Raynaud's Syndrome Irritable Bowel Syndrome With Diarrhea Restless Leg Syndrome Chronic Pain Syndrome PAST MEDICAL HISTORY Diagnosis Date - De Quervain's tenosynovitis, bilateral - Diabetes (HCC) - Hypercholesterolemia - Raynaud's disease ALLERGIES Allergen Reactions - Penicillin G Swelling - Requip [Ropinirole] Other: See Comments seizures Medication List Medication Directions Comments Action/Plan amLODIPine (NORVASC) 5 mg tablet TAKE 1 TABLET BY MOUTH ONCE DAILY aspirin, enteric coated (ADULT LOW DOSE ASPIRIN) 81 mg EC tablet Take 1 tablet by mouth once daily. atenolol (TENORMIN) 50 mg tablet TAKE 1 TABLET BY MOUTH ONCE DAILY atorvastatin (LIPITOR) 20 mg tablet TAKE 1 TABLET BY MOUTH ONCE DAILY blood sugar diagnostic (HiphuntersTOUCH ULTRA TEST) test strip Use as instructed fenofibrate nanocrystallized (TRICOR) 145 mg tablet TAKE 1 TABLET BY MOUTH ONCE DAILY FREESTYLE LANCETS 28 gauge misc CHECK BLOOD GLUCOSE TWO TIMES DAILY gabapentin (NEURONTIN) 100 mg capsule TAKE 1 CAPSULE BY MOUTH 3 TIMES DAILY insulin degludec (TRESIBA FLEXTOUCH U-100) 100 unit/mL (3 mL) injection Inject 65 Units subcutaneously once daily. taking insulin needles, DISPOSABLE, (PEN NEEDLE) 31 gauge x 5/16 ndle Use one needle per dose. once per day. ketoconazole (NIZORAL) 2 % cream Apply 1 application to affected area once daily. Apply to rash and surrounding area lidocaine (ANECREAM5) crea Apply 1 application to affected area as needed. Prior to using Trulicity weekly. Allow cream to dry completely prior to injection. LINZESS 145 mcg cap take 1 capsule by mouth once daily liraglutide (VICTOZA) 0.6 mg/ 0.1 ml subcutaneous pen injector Inject 0.6mg daily for 1 week, then increase to 1.2mg daily. Taking 1.8mg daily losartan (COZAAR) 100 mg tablet TAKE ONE-HALF TABLET BY MOUTH ONCE DAILY metFORMIN (GLUCOPHAGE) 1,000 mg tablet Take 1 tablet by mouth twice daily with meals. taking montelukast (SINGULAIR) 10 mg tablet TAKE 1 TABLET BY MOUTH DAILY AT BEDTIME naproxen (NAPROSYN) 500 mg tablet Take 1 tablet by mouth twice daily as needed (for pain/inflammation). Take with food. omeprazole (PRILOSEC) 20 mg capsule TAKE 1 CAPSULE BY MOUTH DAILY BEFORE BREAKFAST Syringe with Needle, Safety (3CC SAFETY SYRINGE 25GX5/8) 3 mL 25 x 5/8 syrg 1 mL once each week. venlafaxine ER (EFFEXOR XR) 150 mg 24 hr capsule TAKE 1 CAPSULE BY MOUTH ONCE DAILY GLYCEMIC CONTROL: ? Glucometer present at visit: No ? SMBG?s: Date Fasting AM 2 hr PP Before Lunch 2 hr PP Before Dinner 2 hr PP Bedtime 01/24 136 136 01/22 131 01/16 156 133 01/15 138 167 01/13 194 163 01/12 104 01/10 146 112 01/09 137 146 01/08 133 258 (after oatmeal and 1 bagel) 01/07 200 01/06 174 205 01/05 155 01/04 147 178 01/03 184 (ate late dinner 242 ? Hypoglycemia: none Objective: VITALS: BP 146/89 Pulse 86 Last 3 Encounter BP Readings: Date: BP: 01/13/2018 124/82 12/07/2017 122/81 11/14/2017 123/76 Wt: 84.4 kg (186 lb) BMI: 30.95 kg/(m2) LABS Lab Results Component Value Date HBA1C 8.5 12/17/2017 HBA1C 8.7 08/13/2017 HBA1C 9.2 05/21/2017 CMP: Glucose 185 12/17/2017 BUN 11 12/17/2017 Creatinine 0.62 12/17/2017 Sodium 138 12/17/2017 Potassium 4.4 12/17/2017 Chloride 101 12/17/2017 CO2 23 12/17/2017 Protein, Total 6.8 05/21/2017 Albumin 4.3 05/21/2017 Calcium 10.0 12/17/2017 Alkaline Phosphatase 84 05/21/2017 Bilirubin, Total 0.2 05/21/2017 AST 14 05/21/2017 ALT 22 05/21/2017 Estimated CrCL 119.6 mL/min (calculated using Ht 165.1 cm, adjusted Wt 68.3 kg, sCr 0.62 mg/dL, using [place] Gault) Last Lipid Panel Lab Results Component Value Date CHOL 171 05/21/2017 Lab Results Component Value Date HDL 29 05/21/2017 Lab Results Component Value Date LDL Unable to calculate due to increased Triglycerides. See LDL-Chol, Direct. 05/21/2017 Lab Results Component Value Date TG 497 05/21/2017 10-year ASCVD risk: 14% Albumin/Creat Ratio (mg/g) Date Value 09/10/2017 225 (H) PHARMACOTHERAPY ASSESSMENT/PLAN: 1. Type 2 diabetes mellitus with diabetic nephropathy, with long-term current use of insulin (HCC) - ICD9: 250.40, 583.81, V58.67, ICD10: E11.21, Z79.4 (primary diagnosis) A1c goal <8% but can consider reducing goal to <7% given age; uncontrolled based on last A1c (8.5%); patient recently started checking BG daily - FBGs are mostly within range to <180 mg/dL; only has occasional BG >200; no concerns for hypoglycemia at this time; patient self-increased liraglutide dose to 1.8mg daily and is tolerating well; since patient may benefit from being treated to an A1c goal of <7%, will increase dose of basal insulin today to aim for FBG 80-130 mg/dL; PharmD encouraged patient to exercise more and try to cut back slightly on quantity of carbs with meals; renal fxn and LFTs WNL and appropriate for continued use - INCREASE insulin degludec to 70 units daily (~7% dose increase) - CONTINUE metformin 1000mg BID and liraglutide 1.8mg daily 2. Essential hypertension - ICD9: 401.9, ICD10: I10 BP goal <140/90; uncontrolled based on today's reading and recheck, but BP normally well controlled; patient does not do home BP monitoring; will continue to monitor BP at future appts - if remains elevated, will consider increasing the dose of an antihypertensive; renal fxn, K+, and HR WNL and appropriate for continued use - CONTINUE amlodipine 5mg daily, atenolol 50mg daily, and losartan 50mg daily 3. Tobacco abuse - ICD9: 305.1, ICD10: Z72.0 Precontemplative stage of change; patient unwilling to quit at this time; PharmD will continue to address at future appts Patient does not have f/u appt scheduled with PCP - will address at next appt. Patient to return to clinic for PharmD f/u on 02/23. Patient verbalized understanding of instructions. Suman Cabrera, MaryD, [facility] Primary Care Clinical Pharmacist [place] DEO LACY 01/25/2018 2:03 PM Signed Increase dose of Tresiba to 70 units daily Referring Provider: MELYSSA MOBLEY [[id number]] Allergies As of Date: 01/25/2018 Noted Allergy Reaction PENICILLIN G 04/18/2013 7 - Swelling REQUIP (ROPINIROLE) 04/18/2013 14 - Other: See Comments Comments: seizures Date Reviewed: 01/13/2018 Reviewed by: Fred Cuevas LPN - Fully Assessed Reason for Visit: Allied Health Visit [5] Cmt: DM f/u Primary Visit Diagnosis:Type 2 diabetes mellitus with diabetic nephropathy, with long-term current use of insulin (HCC) [E11.21, Z79.4] Other Visit Diagnoses:Essential hypertension [I10] Tobacco abuse [Z72.0] Order(s):liraglutide (VICTOZA) 0.6 mg/ 0.1 ml subcutaneous pen injectorInject 1.8 mg subcutaneously once daily.Disp: 1 PackageRfl: 5 insulin degludec (TRESIBA FLEXTOUCH U-100) 100 unit/mL (3 mL) injectionInject 70 Units subcutaneously once daily.Disp: 7 PenRfl: 5 Prescriptions as of 01/25/2018 Sig: LIRAGLUTIDE 0.6 MG/0.1 ML (18* Inject 1.8 mg subcutaneously * INSULIN DEGLUDEC (U-100) 100 * Inject 70 Units subcutaneousl* KETOCONAZOLE 2 % TOPICAL CREAM Apply 1 application to affect* GABAPENTIN 100 MG CAPSULE TAKE 1 CAPSULE BY MOUTH 3 TI* NAPROXEN 500 MG TABLET Take 1 tablet by mouth twice * FREESTYLE LANCETS 28 GAUGE CHECK BLOOD GLUCOSE TWO TIME* LIDOCAINE 5 % TOPICAL CREAM Apply 1 application to affect* METFORMIN 1,000 MG TABLET Take 1 tablet by mouth twice * AMLODIPINE 5 MG TABLET TAKE 1 TABLET BY MOUTH ONCE D* VENLAFAXINE ER 150 MG CAPSULE* TAKE 1 CAPSULE BY MOUTH ONCE* FENOFIBRATE NANOCRYSTALLIZED * TAKE 1 TABLET BY MOUTH ONCE D* LOSARTAN 100 MG TABLET TAKE ONE-HALF TABLET BY MOUT* ATORVASTATIN 20 MG TABLET TAKE 1 TABLET BY MOUTH ONCE D* ATENOLOL 50 MG TABLET TAKE 1 TABLET BY MOUTH ONCE D* OMEPRAZOLE 20 MG CAPSULE,SAYRA* TAKE 1 CAPSULE BY MOUTH HUGO* MONTELUKAST 10 MG TABLET TAKE 1 TABLET BY MOUTH DAILY* PEN NEEDLE, DIABETIC 31 GAUGE* Use one needle per dose. once* BLOOD SUGAR DIAGNOSTIC STRIPS Use as instructed LINZESS 145 MCG CAPSULE take 1 capsule by mouth once * SYRINGE WITH NEEDLE, SAFETY 3* 1 mL once each week. ASPIRIN 81 MG TABLET,DELAYED * Take 1 tablet by mouth once d* Problem List As Of Date 01/25/2018 Noted Resolved Anxiety and depression [F41.9, F32.9] INVALID FOR* More... Hyperlipidemia [E78.5] INVALID FOR* More... Hypertension [I10] INVALID FOR* More... Fibromyalgia syndrome [M79.7] INVALID FOR* More... Tobacco abuse [Z72.0] INVALID FOR* More... 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 Proteinuria [R80.9] INVALID FOR* Tendinitis of thumb [M77.8] INVALID FOR* More... Raynaud's syndrome [I73.00] INVALID FOR* More... Irritable bowel syndrome with diarrhea [K58.0] INVALID FOR* Restless leg syndrome [G25.81] INVALID FOR* Chronic pain syndrome [G89.4] INVALID FOR* Other instructions from your clinician: Increase dose of Tresiba to 70 units daily Prescriptions ordered this encounter Disp Refills Start End LIRAGLUTIDE 0.6 MG/0.1 ML (18 MG/3 M* 1 Pa* 5 01/25/2018 Route: SUBCUTANEOUS Sig: Inject 1.8 mg subcutaneously once daily. INSULIN DEGLUDEC (U-100) 100 UNIT/ML* 7 Pen 5 01/25/2018 Route: SUBCUTANEOUS Sig: Inject 70 Units subcutaneously once daily. Medications Discontinued During This Encounter liraglutide (VICTOZA) 0.6 mg/ 0.1 ml* 1 Pa* 5 12/22/2017 01/25/2018 Cmt: Please place on hold. Sig: Inject 0.6mg daily for 1 week, then increase to 1.2mg daily. Disc: Reason for discontinue is not on file. insulin degludec (TRESIBA FLEXTOUCH * 12/22/2017 01/25/2018 Class: Med Update Route: SUBCUTANEOUS Sig: Inject 65 Units subcutaneously once daily. Disc: Reason for discontinue is not on file. Encounter Status:Closed by PANTERA (PHARMACIST)SUMAN on 01/25/18 CNCO Observed: 01/13/2018 Status: COMPLETED Source: [place] 4:42 PM [facility] REPOSITORY HNO ID: [id number] Author: Mammography Coordinator Service: (none) Author Type: Physician Type: Letter Filed: 01/16/2018 11:33 PM Note Text: January 13, 2018 PID: [id number] Jarod Looney [address] [place] [address] Dear Ms. Looney, We are pleased to inform you that the results of your recent breast imaging exam on 01/13/2018 are normal. Early detection of cancer is very important. We also understand recommendations regarding breast cancer screening are controversial. Please discuss with your primary care provider which strategy is best for you and whether a mammogram is right for you. Your imaging studies and report will be kept on file at [facility] as part of your permanent medical record and are available for your continuing care. Thank you for allowing us to help in meeting your health care needs. Sincerely, Dr. Moser Interpreting Radiologist [facility] (Normal over 40) PROGRESS Observed: 01/13/2018 Status: COMPLETED Source: [place] 3:24 PM [facility] REPOSITORY HNO ID: [id number] Author: Melyssa Mobley Service: (none) Author Type: Physician Type: Progress Notes Filed: 01/13/2018 5:14 PM Note Text: Reason for Visit Patient presents with: Recheck: 4 month medication Imm/Inj: Flu Vaccine Jarod Looney is a 47 year old female who presents here today for Above Complaints.. Health Maintenance BP CONTROLLED (<130/80) DTAP,TDAP,TD(1 - Tdap) MAMMOGRAM INFLUENZA(1) HPI Last visit she had a flare of her fibro, was sent to Physical Therapy. She has 2 visits of Physical Therapy left. She has only 2 appointments left. Her hba1c is 8.5, gfr is normal. She was started on trulicity and that did not help her too much, she went through anxiety issues....was put back on victoza her sugars are bet 140 to 200. She is eating toast with carrots and potatoes, bagel and cup of coffee, tomato sandwich on bread. She can improve her diet. But thinks she is eating healthy for the most part. Lipids are normal, reviewed test results with patient Who takes medications regularly and has no side effects. BP is well controlled on current regimen of medicines which is tolerated well. No significant side effects No problem-specific Assessment AND Plan notes found for this encounter. PAST MEDICAL HISTORY Diagnosis Date - De Quervain's tenosynovitis, bilateral - Diabetes (HCC) - Hypercholesterolemia - Raynaud's disease PAST SURGICAL HISTORY Procedure Laterality Date - CONE OF CERVIX LOOPELEC EXCIS - EXTRACTION ERUPTED TOOTH/EXR - HYSTERECTOMY HX precervical cancer, removed cervix - KNEE SURGERY HX 4x right and left x4 FAMILY HISTORY Problem Relation Age of Onset - Hypertension Mother - Breast Cancer Mother - Breast Cancer Maternal Grandmother - Cervical Cancer Paternal Aunt - COPD Paternal Grandmother - Coronary Artery Disease Paternal Grandfather - Coronary Artery Disease Paternal Grandmother - Heart Paternal Aunt - other (raynaud [Other]) Mother Social History Substance Use Topics - Smoking status: Current Every Day Smoker Packs/day: 0.50 Years: 21.00 Types: Cigarettes - Smokeless tobacco: Never Used - Alcohol use No Past medical history, appointments, medications, allergies reviewed. Pertinent Lab/Diagnostic Studies are reviewed and discussed today Current Outpatient Prescriptions: - liraglutide (VICTOZA) 0.6 mg/ 0.1 ml subcutaneous pen injector - insulin degludec (TRESIBA FLEXTOUCH U-100) 100 unit/mL (3 mL) injection - gabapentin (NEURONTIN) 100 mg capsule - naproxen (NAPROSYN) 500 mg tablet - FREESTYLE LANCETS 28 gauge misc - lidocaine (ANECREAM5) crea - metFORMIN (GLUCOPHAGE) 1,000 mg tablet - amLODIPine (NORVASC) 5 mg tablet - venlafaxine ER (EFFEXOR XR) 150 mg 24 hr capsule - fenofibrate nanocrystallized (TRICOR) 145 mg tablet - losartan (COZAAR) 100 mg tablet - atorvastatin (LIPITOR) 20 mg tablet - atenolol (TENORMIN) 50 mg tablet - omeprazole (PRILOSEC) 20 mg capsule - montelukast (SINGULAIR) 10 mg tablet - insulin needles, DISPOSABLE, (PEN NEEDLE) 31 gauge x 5/16 ndle - blood sugar diagnostic (ONETOUCH ULTRA TEST) test strip - LINZESS 145 mcg cap - Syringe with Needle, Safety (3CC SAFETY SYRINGE 25GX5/8) 3 mL 25 x 5/8 syrg - aspirin, enteric coated (ADULT LOW DOSE ASPIRIN) 81 mg EC tablet Review of Systems CONSTITUTIONAL: No fevers, chills night sweats, unintended weight loss CARDIOVASCULAR: No chest pain, dyspnea, palpitations, orthopnea, PND, ankle edema. PULM: No dyspnea, unexplained cough. GI: No dysphagia/odynophagia, problematic reflux, constipation, diarrhea, changes in stool habits, hematochezia, melena. : No new urinary complaints, including dysuria, gross hematuria or pyuria. NEURO: No new balance problems, peripheral weakness/paresthesias or numbness of concern. Physical Exam BP 124/82 (BP Site: Left Arm, BP Position: Sitting, BP Cuff Size: Large Adult) Pulse 80 Resp 18 Wt 84.4 kg (186 lb) BMI 30.95 kg/m? General appearance: Well appearing, alert, in no acute distress, well nourished. Skin: Skin color, texture, turgor normal, no suspicious rashes or lesions Head: Normocephalic, no masses, lesions, tenderness or abnormalities Eyes: Anicteric sclera. Pupils are equally round and reactive to light. Extraocular movements are intact. Lungs: Lungs clear to auscultation. No wheezing, rhonchi, rales Heart: RRR without murmur, gallop, or rubs. Extremities: No deformities, edema, skin discoloration, clubbing or cyanosis. Good capillary refill. ASSESSMENT/PLAN: 1. Essential hypertension - ICD9: 401.9, ICD10: I10 (primary diagnosis) - good control - Recommended regular aerobic exercise. - Recommend home blood pressure monitoring, to bring results in on next visit - Goal of BP <130/80 2. Need for vaccination - ICD9: V05.9, ICD10: Z23 - INFLUENZA VACCINE QUADRIVALENT AGE 3 YRS PLUS + IM 3. Hyperlipidemia, unspecified hyperlipidemia type - ICD9: 272.4, ICD10: E78.5 - good control 4. Anxiety and depression - ICD9: 300.00, 311, ICD10: F41.9, F32.9 Controlled at this point 5. Type 2 diabetes mellitus with diabetic nephropathy, with long-term current use of insulin (HCC) - ICD9: 250.40, 583.81, V58.67, ICD10: E11.21, Z79.4 Improving control Discussed improvements in diet and made suggestions for her current pattern of eating 6. Raynaud's disease without gangrene - ICD9: 443.0, ICD10: I73.00 stable 7. Tinea corporis - ICD9: 110.5, ICD10: B35.4 Started her on ketoconazole MELYSSA MOBLEY MD PROGRESS Observed: 01/13/2018 Status: COMPLETED Source: [place] 3:06 PM [facility] REPOSITORY O ID: [id number] Author: Fred Cuevas LPN Service: (none) Author Type: (none) Type: Progress Notes Filed: 01/13/2018 5:14 PM Note Text: 47 year old female here for INACTIVATED INFLUENZA VACCINE. [id number] Season Patient is identified by name and date of : Yes [] CONTRAINDICATIONS color enhanced section Age less than 6 months? No Allergy to eggs, chicken, chicken feathers, or chicken dander? No Allergy to thimerosal (a preservative) or formaldehyde, gelatin? No History of severe reaction to any vaccine component or a previous dose of influenza vaccination? No History of Guillain-[place] Syndrome within 6 weeks after a previous influenza vaccine? No Patient is not moderately or severely ill? No Current temperature greater or equal to 100.4F? No History of Bone Marrow Transplant prior 6 months or solid organ transplant in the past 3 months ? No History of fainting after a prior injection or medical procedure? No- ? If patient has fainted in the past, the CDC recommends sitting or lying down for 15 minutes after the vaccination. [] VERIFICATION color enhanced section Was the answer Yes for any of the above contraindications? No contraindications present. Acceptable to proceed with vaccine. Patient/guardian agrees the above answers are true to the best of their knowledge? Yes Flu vaccine information sheet given? Yes See immunization activity in [facility] for details of immunizations adminstered today. Patient age: [age] year old For The 2906-3803 Flu Season 6-35 months old: Fluzone 0.25 ml - IM (Preservative Free) 3 years of age: Fluzone 0.5 ml - IM (Preservative Free) 3 years and older: Fluzone 0.5 ml- IM-(with Preservatives) 65+ years old: 2-49 years old Fluzone High-Dose 0.5 ml - IM (Preservative Free) FLUMIST- intranasal REMEMBER: If patient is less than 9 years of age and this is the first vaccine of Influenza to be received in any flu season, they should receive a second dose in one months time. CNOV Observed: 01/13/2018 Status: COMPLETED Source: [place] 2:40 PM [facility] REPOSITORY Office Visit (INTMWS) JAROD LOONEY ([id number]) 1970 F Date Time Provider Department 01/13/18 2:40 PM MELYSSA MOBLEY INTMWS During your visit today, we recorded the following information about you: Pulse Respiration Blood pressure Weight 80/minute 18/minute 124/82 84.4 kg Fred Cuevas LPN 01/13/2018 5:14 PM Signed 47 year old female here for INACTIVATED INFLUENZA VACCINE. Season Patient is identified by name and date of : Yes [] CONTRAINDICATIONS color enhanced section Age less than 6 months? No Allergy to eggs, chicken, chicken feathers, or chicken dander? No Allergy to thimerosal (a preservative) or formaldehyde, gelatin? No History of severe reaction to any vaccine component or a previous dose of influenza vaccination? No History of Guillain-[place] Syndrome within 6 weeks after a previous influenza vaccine? No Patient is not moderately or severely ill? No Current temperature greater or equal to 100.4F? No History of Bone Marrow Transplant prior 6 months or solid organ transplant in the past 3 months ? No History of fainting after a prior injection or medical procedure? No- ? If patient has fainted in the past, the CDC recommends sitting or lying down for 15 minutes after the vaccination. [] VERIFICATION color enhanced section Was the answer Yes for any of the above contraindications? No contraindications present. Acceptable to proceed with vaccine. Patient/guardian agrees the above answers are true to the best of their knowledge? Yes Flu vaccine information sheet given? Yes See immunization activity in [facility] for details of immunizations adminstered today. Patient age: [age] year old For The 2173-9427 Flu Season 6-35 months old: Fluzone 0.25 ml - IM (Preservative Free) 3 years of age: Fluzone 0.5 ml - IM (Preservative Free) 3 years and older: Fluzone 0.5 ml- IM-(with Preservatives) 65+ years old: 2-49 years old Fluzone High-Dose 0.5 ml - IM (Preservative Free) FLUMIST- intranasal REMEMBER: If patient is less than 9 years of age and this is the first vaccine of Influenza to be received in any flu season, they should receive a second dose in one months time. MELYSSA MOBLEY MD 01/13/2018 5:14 PM Signed Reason for Visit Patient presents with: Recheck: 4 month medication Imm/Inj: Flu Vaccine Jarod Looney is a 47 year old female who presents here today for Above Complaints.. Health Maintenance BP CONTROLLED (<130/80) DTAP,TDAP,TD(1 - Tdap) MAMMOGRAM INFLUENZA(1) HPI Last visit she had a flare of her fibro, was sent to Physical Therapy. She has 2 visits of Physical Therapy left. She has only 2 appointments left. Her hba1c is 8.5, gfr is normal. She was started on trulicity and that did not help her too much, she went through anxiety issues....was put back on victoza her sugars are bet 140 to 200. She is eating toast with carrots and potatoes, bagel and cup of coffee, tomato sandwich on bread. She can improve her diet. But thinks she is eating healthy for the most part. Lipids are normal, reviewed test results with patient Who takes medications regularly and has no side effects. BP is well controlled on current regimen of medicines which is tolerated well. No significant side effects No problem-specific Assessment AND Plan notes found for this encounter. PAST MEDICAL HISTORY Diagnosis Date - De Quervain's tenosynovitis, bilateral - Diabetes (HCC) - Hypercholesterolemia - Raynaud's disease PAST SURGICAL HISTORY Procedure Laterality Date - CONE OF CERVIX LOOPELEC EXCIS - EXTRACTION ERUPTED TOOTH/EXR - HYSTERECTOMY HX precervical cancer, removed cervix - KNEE SURGERY HX 4x right and left x4 FAMILY HISTORY Problem Relation Age of Onset - Hypertension Mother - Breast Cancer Mother - Breast Cancer Maternal Grandmother - Cervical Cancer Paternal Aunt - COPD Paternal Grandmother - Coronary Artery Disease Paternal Grandfather - Coronary Artery Disease Paternal Grandmother - Heart Paternal Aunt - other (raynaud [Other]) Mother Social History Substance Use Topics - Smoking status: Current Every Day Smoker Packs/day: 0.50 Years: 21.00 Types: Cigarettes - Smokeless tobacco: Never Used - Alcohol use No Past medical history, appointments, medications, allergies reviewed. Pertinent Lab/Diagnostic Studies are reviewed and discussed today Current Outpatient Prescriptions: - liraglutide (VICTOZA) 0.6 mg/ 0.1 ml subcutaneous pen injector - insulin degludec (TRESIBA FLEXTOUCH U-100) 100 unit/mL (3 mL) injection - gabapentin (NEURONTIN) 100 mg capsule - naproxen (NAPROSYN) 500 mg tablet - FREESTYLE LANCETS 28 gauge misc - lidocaine (ANECREAM5) crea - metFORMIN (GLUCOPHAGE) 1,000 mg tablet - amLODIPine (NORVASC) 5 mg tablet - venlafaxine ER (EFFEXOR XR) 150 mg 24 hr capsule - fenofibrate nanocrystallized (TRICOR) 145 mg tablet - losartan (COZAAR) 100 mg tablet - atorvastatin (LIPITOR) 20 mg tablet - atenolol (TENORMIN) 50 mg tablet - omeprazole (PRILOSEC) 20 mg capsule - montelukast (SINGULAIR) 10 mg tablet - insulin needles, DISPOSABLE, (PEN NEEDLE) 31 gauge x 5/16 ndle - blood sugar diagnostic (ONETOUCH ULTRA TEST) test strip - LINZESS 145 mcg cap - Syringe with Needle, Safety (3CC SAFETY SYRINGE 25GX5/8) 3 mL 25 x 5/8 syrg - aspirin, enteric coated (ADULT LOW DOSE ASPIRIN) 81 mg EC tablet Review of Systems CONSTITUTIONAL: No fevers, chills night sweats, unintended weight loss CARDIOVASCULAR: No chest pain, dyspnea, palpitations, orthopnea, PND, ankle edema. PULM: No dyspnea, unexplained cough. GI: No dysphagia/odynophagia, problematic reflux, constipation, diarrhea, changes in stool habits, hematochezia, melena. : No new urinary complaints, including dysuria, gross hematuria or pyuria. NEURO: No new balance problems, peripheral weakness/paresthesias or numbness of concern. Physical Exam BP 124/82 (BP Site: Left Arm, BP Position: Sitting, BP Cuff Size: Large Adult) Pulse 80 Resp 18 Wt 84.4 kg (186 lb) BMI 30.95 kg/m? General appearance: Well appearing, alert, in no acute distress, well nourished. Skin: Skin color, texture, turgor normal, no suspicious rashes or lesions Head: Normocephalic, no masses, lesions, tenderness or abnormalities Eyes: Anicteric sclera. Pupils are equally round and reactive to light. Extraocular movements are intact. Lungs: Lungs clear to auscultation. No wheezing, rhonchi, rales Heart: RRR without murmur, gallop, or rubs. Extremities: No deformities, edema, skin discoloration, clubbing or cyanosis. Good capillary refill. ASSESSMENT/PLAN: 1. Essential hypertension - ICD9: 401.9, ICD10: I10 (primary diagnosis) - good control - Recommended regular aerobic exercise. - Recommend home blood pressure monitoring, to bring results in on next visit - Goal of BP <130/80 2. Need for vaccination - ICD9: V05.9, ICD10: Z23 - INFLUENZA VACCINE QUADRIVALENT AGE 3 YRS PLUS + IM 3. Hyperlipidemia, unspecified hyperlipidemia type - ICD9: 272.4, ICD10: E78.5 - good control 4. Anxiety and depression - ICD9: 300.00, 311, ICD10: F41.9, F32.9 Controlled at this point 5. Type 2 diabetes mellitus with diabetic nephropathy, with long-term current use of insulin (HCC) - ICD9: 250.40, 583.81, V58.67, ICD10: E11.21, Z79.4 Improving control Discussed improvements in diet and made suggestions for her current pattern of eating 6. Raynaud's disease without gangrene - ICD9: 443.0, ICD10: I73.00 stable 7. Tinea corporis - ICD9: 110.5, ICD10: B35.4 Started her on ketoconazole MELYSSA MOBLEY MD Referring Provider: MELYSSA MOBLEY [[id number]] Allergies As of Date: 01/13/2018 Noted Allergy Reaction PENICILLIN G 04/18/2013 7 - Swelling REQUIP (ROPINIROLE) 04/18/2013 14 - Other: See Comments Comments: seizures Date Reviewed: 01/13/2018 Reviewed by: Fred Cuevas LPN - Fully Assessed Reason for Visit: Recheck [92] Cmt: 4 month medication Imm/Inj [58] Cmt: Flu Vaccine Reason For Visit History Recorded Primary Visit Diagnosis:Essential hypertension [I10] Other Visit Diagnoses:Need for vaccination [Z23] Hyperlipidemia, unspecified hyperlipidemia type [E78.5] Anxiety and depression [F41.9, F32.9] Type 2 diabetes mellitus with diabetic nephropathy, with long-term current use of insulin (HCC) [E11.21, Z79.4] Raynaud's disease without gangrene [I73.00] Tinea corporis [B35.4] Order(s):INFLUENZA VACCINE QUADRIVALENT AGE 3 YRS PLUS + IM [[id number]] Order #: [id number] ketoconazole (NIZORAL) 2 % creamApply 1 application to affected area once daily. Apply to rash and surrounding areaDisp: 60 gRfl: 2 HGB A1C [[id number]] Order #: [id number] FUTURE Prescriptions as of 01/13/2018 Sig: LIRAGLUTIDE 0.6 MG/0.1 ML (18* Inject 0.6mg daily for 1 week* INSULIN DEGLUDEC (U-100) 100 * Inject 65 Units subcutaneousl* GABAPENTIN 100 MG CAPSULE TAKE 1 CAPSULE BY MOUTH 3 TI* NAPROXEN 500 MG TABLET Take 1 tablet by mouth twice * FREESTYLE LANCETS 28 GAUGE CHECK BLOOD GLUCOSE TWO TIME* LIDOCAINE 5 % TOPICAL CREAM Apply 1 application to affect* METFORMIN 1,000 MG TABLET Take 1 tablet by mouth twice * AMLODIPINE 5 MG TABLET TAKE 1 TABLET BY MOUTH ONCE D* VENLAFAXINE ER 150 MG CAPSULE* TAKE 1 CAPSULE BY MOUTH ONCE* FENOFIBRATE NANOCRYSTALLIZED * TAKE 1 TABLET BY MOUTH ONCE D* LOSARTAN 100 MG TABLET TAKE ONE-HALF TABLET BY MOUT* ATORVASTATIN 20 MG TABLET TAKE 1 TABLET BY MOUTH ONCE D* ATENOLOL 50 MG TABLET TAKE 1 TABLET BY MOUTH ONCE D* OMEPRAZOLE 20 MG CAPSULE,SAYRA* TAKE 1 CAPSULE BY MOUTH HUGO* MONTELUKAST 10 MG TABLET TAKE 1 TABLET BY MOUTH DAILY* PEN NEEDLE, DIABETIC 31 GAUGE* Use one needle per dose. once* BLOOD SUGAR DIAGNOSTIC STRIPS Use as instructed LINZESS 145 MCG CAPSULE take 1 capsule by mouth once * SYRINGE WITH NEEDLE, SAFETY 3* 1 mL once each week. ASPIRIN 81 MG TABLET,DELAYED * Take 1 tablet by mouth once d* KETOCONAZOLE 2 % TOPICAL CREAM Apply 1 application to affect* Problem List As Of Date 01/13/2018 Noted Resolved Anxiety and depression [F41.9, F32.9] INVALID FOR* More... Hyperlipidemia [E78.5] INVALID FOR* More... Hypertension [I10] INVALID FOR* More... Fibromyalgia syndrome [M79.7] INVALID FOR* More... Tobacco abuse [Z72.0] INVALID FOR* More... 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 Proteinuria [R80.9] INVALID FOR* Tendinitis of thumb [M77.8] INVALID FOR* More... Raynaud's syndrome [I73.00] INVALID FOR* More... Irritable bowel syndrome with diarrhea [K58.0] INVALID FOR* Restless leg syndrome [G25.81] INVALID FOR* Chronic pain syndrome [G89.4] INVALID FOR* Prescriptions ordered this encounter Disp Refills Start End KETOCONAZOLE 2 % TOPICAL CREAM 60 g 2 01/13/2018 Route: TOPICAL Sig: Apply 1 application to affected area once daily. Apply to rash and surrounding area Letter Text [facility] [address], [place] [address] Jarod Looney [address] [facility] [address] Clinic #: [id number] 01/13/2018 To whomsoever it may concern: This is to state that the above named patient has anxiety and depression and would benefit from a therapy cat. Melyssa Smith MD Encounter Status:Closed by MELYSSA MOBLEY MD on 01/13/18 [facility] SCREENING Observed: 01/13/2018 Status: F Source: [place] 2:07 PM [facility] REPOSITORY * * *Final Report* * * DATE OF EXAM: Jan 13 2018 2:07PM [facility] 0581 - [facility] SCREENING / PROCEDURE REASON: Encounter for screening mammogram for malignant neoplasm of breast * * * * Physician Interpretation * * * * RESULT: #[id number] - [facility] SCREENING BILATERAL DIGITAL SCREENING MAMMOGRAM WITH CAD: 01/13/2018 HISTORY: Screening Mammogram - patient reports NO breast symptoms /priors available for comparison. RESULT: TECHNIQUE: The study was acquired using full field digital technology and interpreted from soft copy. Current study was also evaluated with a Computer Aided Detection (CAD). Comparison is made to exams dated: 04/29/2015 mammogram - [facility] and 07/13/2006 mammogram. There are scattered fibroglandular elements in both breasts. No significant masses, calcifications, or other findings are seen in either breast. There has been no significant interval change. IMPRESSION: NEGATIVE There is no mammographic evidence of malignancy. A 1 year screening mammogram is recommended. Zaynab Moser M.D., ch/nallely:01/13/2018 16:42:59 Cutting Machine Tender Helper: Nela SHEPPARD)([place]), [facility] letter sent: Normal over 40 Mammogram BI-RADS: 1 Negative Multiple national specialty organizations have released breast cancer screening guidelines for women at average risk for developing breast cancer - guidelines that are based on both evidence and opinion, yet differ on when to start and how often to screen for breast cancer. With representation from Breast Imaging, Internal Medicine, Women's Health, Family Medicine, and Medical/Surgical Oncology, the [facility] has carefully reviewed the data and reached the following consensus: 1) All women should engage in shared decision-making with their providers to decide when to start and how often to screen; 2) All women should have the opportunity to start screening mammography at age 40; 3) For women ages 45-55, we recommend annual screening mammograms; 4) For women ages 55 and over, we support both the transition from an annual to a biennial interval if this aligns more with patient's values and preferences, or continuation with annual screening; 5) All women should discuss with their providers when to stop screening mammograms. Survey Interviewer: Nallely Transcribe Date/Time: Jan 13 2018 1:55P Dictated by: ZAYNAB MOSER MD This examination was interpreted and the report reviewed and electronically signed by: ZAYNAB MOSER MD on Jan 13 2018 4:42PM EST [id number] PROGRESS Observed: 01/13/2018 Status: COMPLETED Source: [place] 1:51 PM [facility] REPOSITORY HNO ID: [id number] Author: Liyah Londono Service: (none) Author Type: (none) Type: Progress Notes Filed: 01/13/2018 1:51 PM Note Text: Radiology Service Progress Note PATIENT NAME: Jarod Looney DATE OF SERVICE: January 13, 2018 TIME: 1:51 PM PATIENT IDENTITY VERIFICATION COMPLETED USING TWO (2) METHODS: Patient confirmed name verbally and Date of . PATIENT GENDER DATA: Female. status: : No status: NO. PATIENT RELEVANT IMPLANT DATA REVIEWED: Not Applicable RADIOLOGY DEPARTMENT: [facility] DATA: Not applicable SIGNED BY: Liyah Londono January 13, 2018 1:51 PM PROGRESS Observed: 01/05/2018 Status: COMPLETED Source: [place] 6:53 AM [facility] REPOSITORY HNO ID: [id number] Author: Winnie (Pt) Chandler Service: (none) Author Type: Physical Therapist Type: Progress Notes Filed: 01/05/2018 7:00 AM Note Text: Episode Visit Count: 4 Therapist That Will Oversee The Plan Of Care: Winnie Arteaga PT Start of Care Date: 12/19/14 Plan of Care Certification Date: 12/19/17 Patient Identified by Name and Date of : Yes REHABILITATION AND SPORTS THERAPY PHYSICAL THERAPY TREATMENT NOTE ASSESSMENT: Jarod Looney demonstrated good tolerance to increase in resistance on recumbent stepper as well as increased speed on treadmill. She seemed to do better with shorter hold times with DKC of 10 sec vs 30 sec. Patient with increased low back pain after lumbar rotation; however, by the end of the session, she reported her whole body pain reduced to 5/10. Patient has some good practices in place for her sleeping habits. She was instructed to try placing a notebook by her bed to write down her thoughts as well as practice diaphragmatic breathing. Handouts provided to aid in reinforcement. Patient very much understood the concept of use it or loose it and by exercising/moving she is able to get pain better under control and keep her body parts in a clearer focus in the homunculus. The patient will continue to benefit from continued skilled physical therapy for Pain Neuroscience Education and graded exercise. 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 She had to take care of her mom. Patient is doing her exercises 1x a day. Pain Score: 6/10 Pain Location: (Whole body ) Description: Aching;Stiffness Frequency: Continuous Post Treatment Pain Score: 5/10 Pain Location: (whole body) Post Treatment Pain Description: Aching;Stiffness OBJECTIVE MEASURES WITH LEVEL OF FUNCTION: Patient did better with 10 sec holds vs 30 sec hold for DKC TREATMENT: Therapeutic Exercise: 1: Step One stepper seat 12, Level 2 x 8 minutes. Pain science education on Body Maps/Homunculous were introduced to patient during this time. Use it or lose it. Patient very receptive to education that was provided. 2: Ambulation on treadmill 1.2 mph x 5 minutes (cues to engage core ) 3: Hooklying rotations 1x10 each direction stopped due to increase in pain in low back 4: DKC 6x10 seconds with instruction to stay in pain free range. (Did better with shorter holds vs 30 sec holds) 5: Posterior pelvic tilt x 12 6: Bridging 1x15 with arms 9: Supine TA with alt arm lifts x 12 10: Supine TA with bent knee fall outs x 12 11: Supine TA with marching x 12 12: Supine TA with opposite arm and leg lifts x 12 13: *Midback stretch dropping buttocks toward heels with forearms on table 3x10 second hold. 14: Stir the pot on Hoist 1 large plate cw and ccw facing each direction x 10. (Holding with R hand as unable to with L) Skilled Intervention: Patient was educated in proper exercise technique and purpose for exercises. Reviewed and educated patient on additions/changes for home exercise program as above (*) Skilled judgment was provided in selection of appropriate interventions. Correct performance of therapeutic exercises was facilitated with verbal, visual and tactile cuing. Neuromuscular Re-Education: 2: *Sleep Hygiene tips: keep a note book by bed to write down thoughts, relax with diaphragmatic breathing, and daily exercise 3: *Hooklying Diaphragmatic Breathing with eyes closed and one hand on chest and belly x10 (Cues to breath in area of pain and exhale out the pain ) Body Maps/Homunculus (The brain?s body maps) shown cards with on recumbent stepper. Patient educated regarding the role of the primary somatosensory cortex in pain and body maps (which depend on movement and use of body parts) and that for people with persistent pain, decreased use of the body and other biological processes change the body maps. Laterality proficiency was discussed and assessed. Skilled Intervention: Patient education as noted. Billing: [facility]: Therapeutic Exercise ([id number]): 1:1 time: 34 minutes (2 units: 23-37 mins) Neuromuscular Re-education ([id number]): 1:1 time: 10 minutes (1 unit: 8-22 mins) Total time: 44 minutes Winnie Arteaga PT CNTHERAPY Observed: 01/04/2018 Status: COMPLETED Source: [place] 2:45 PM [facility] REPOSITORY OT/PT/Speech Visit (PTWS) JAROD LOONEY ([id number]) 1970 F Date Time Provider Department 01/04/18 2:45 PM WINNIE ARTEAGAPT) PTLAI Date Time Provider Department Center 01/04/2018 2:45 PM [id number], DIANA (PT)PTWS [facility] Reason for Visit: Physical Therapy [503] Primary Visit Diagnosis:Chronic pain syndrome [G89.4] Other Visit Diagnoses:Anxiety and depression [F41.9, F32.9] Fibromyalgia syndrome [M79.7] Allergies As of Date: 01/04/2018 Noted Allergy Reaction PENICILLIN G 04/18/2013 7 - Swelling REQUIP (ROPINIROLE) 04/18/2013 14 - Other: See Comments Comments: seizures Date Reviewed: 12/07/2017 Reviewed by: Kanwal Hwang) SHARON Nichole - Fully Assessed Prescriptions as of 01/04/2018 Sig: LIRAGLUTIDE 0.6 MG/0.1 ML (18* Inject 0.6mg daily for 1 week* INSULIN DEGLUDEC (U-100) 100 * Inject 65 Units subcutaneousl* GABAPENTIN 100 MG CAPSULE TAKE 1 CAPSULE BY MOUTH 3 TI* NAPROXEN 500 MG TABLET Take 1 tablet by mouth twice * FREESTYLE LANCETS 28 GAUGE CHECK BLOOD GLUCOSE TWO TIME* LIDOCAINE 5 % TOPICAL CREAM Apply 1 application to affect* METFORMIN 1,000 MG TABLET Take 1 tablet by mouth twice * AMLODIPINE 5 MG TABLET TAKE 1 TABLET BY MOUTH ONCE D* VENLAFAXINE ER 150 MG CAPSULE* TAKE 1 CAPSULE BY MOUTH ONCE* FENOFIBRATE NANOCRYSTALLIZED * TAKE 1 TABLET BY MOUTH ONCE D* LOSARTAN 100 MG TABLET TAKE ONE-HALF TABLET BY MOUT* ATORVASTATIN 20 MG TABLET TAKE 1 TABLET BY MOUTH ONCE D* ATENOLOL 50 MG TABLET TAKE 1 TABLET BY MOUTH ONCE D* OMEPRAZOLE 20 MG CAPSULE,SAYRA* TAKE 1 CAPSULE BY MOUTH HUGO* MONTELUKAST 10 MG TABLET TAKE 1 TABLET BY MOUTH DAILY* PEN NEEDLE, DIABETIC 31 GAUGE* Use one needle per dose. once* BLOOD SUGAR DIAGNOSTIC STRIPS Use as instructed LINZESS 145 MCG CAPSULE take 1 capsule by mouth once * SYRINGE WITH NEEDLE, SAFETY 3* 1 mL once each week. ASPIRIN 81 MG TABLET,DELAYED * Take 1 tablet by mouth once d* Progress Notes: Winnie Arteaga PT 01/05/2018 7:00 AM Signed Episode Visit Count: 4 Therapist That Will Oversee The Plan Of Care: Winnie Arteaga PT Start of Care Date: 12/19/14 Plan of Care Certification Date: 12/19/17 Patient Identified by Name and Date of : Yes REHABILITATION AND SPORTS THERAPY PHYSICAL THERAPY TREATMENT NOTE ASSESSMENT: Jarod Looney demonstrated good tolerance to increase in resistance on recumbent stepper as well as increased speed on treadmill. She seemed to do better with shorter hold times with DKC of 10 sec vs 30 sec. Patient with increased low back pain after lumbar rotation; however, by the end of the session, she reported her whole body pain reduced to 5/10. Patient has some good practices in place for her sleeping habits. She was instructed to try placing a notebook by her bed to write down her thoughts as well as practice diaphragmatic breathing. Handouts provided to aid in reinforcement. Patient very much understood the concept of use it or loose it and by exercising/moving she is able to get pain better under control and keep her body parts in a clearer focus in the homunculus. The patient will continue to benefit from continued skilled physical therapy for Pain Neuroscience Education and graded exercise. 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 She had to take care of her mom. Patient is doing her exercises 1x a day. Pain Score: 6/10 Pain Location: (Whole body ) Description: Aching;Stiffness Frequency: Continuous Post Treatment Pain Score: 5/10 Pain Location: (whole body) Post Treatment Pain Description: Aching;Stiffness OBJECTIVE MEASURES WITH LEVEL OF FUNCTION: Patient did better with 10 sec holds vs 30 sec hold for DKC TREATMENT: Therapeutic Exercise: 1: Step One stepper seat 12, Level 2 x 8 minutes. Pain science education on Body Maps/Homunculous were introduced to patient during this time. Use it or lose it. Patient very receptive to education that was provided. 2: Ambulation on treadmill 1.2 mph x 5 minutes (cues to engage core ) 3: Hooklying rotations 1x10 each direction stopped due to increase in pain in low back 4: DKC 6x10 seconds with instruction to stay in pain free range. (Did better with shorter holds vs 30 sec holds) 5: Posterior pelvic tilt x 12 6: Bridging 1x15 with arms 9: Supine TA with alt arm lifts x 12 10: Supine TA with bent knee fall outs x 12 11: Supine TA with marching x 12 12: Supine TA with opposite arm and leg lifts x 12 13: *Midback stretch dropping buttocks toward heels with forearms on table 3x10 second hold. 14: Stir the pot on Hoist 1 large plate cw and ccw facing each direction x 10. (Holding with R hand as unable to with L) Skilled Intervention: Patient was educated in proper exercise technique and purpose for exercises. Reviewed and educated patient on additions/changes for home exercise program as above (*) Skilled judgment was provided in selection of appropriate interventions. Correct performance of therapeutic exercises was facilitated with verbal, visual and tactile cuing. Neuromuscular Re-Education: 2: *Sleep Hygiene tips: keep a note book by bed to write down thoughts, relax with diaphragmatic breathing, and daily exercise 3: *Hooklying Diaphragmatic Breathing with eyes closed and one hand on chest and belly x10 (Cues to breath in area of pain and exhale out the pain ) Body Maps/Homunculus (The brain?s body maps) shown cards with on recumbent stepper. Patient educated regarding the role of the primary somatosensory cortex in pain and body maps (which depend on movement and use of body parts) and that for people with persistent pain, decreased use of the body and other biological processes change the body maps. Laterality proficiency was discussed and assessed. Skilled Intervention: Patient education as noted. Billing: [facility]: Therapeutic Exercise ([id number]): 1:1 time: 34 minutes (2 units: 23-37 mins) Neuromuscular Re-education ([id number]): 1:1 time: 10 minutes (1 unit: 8-22 mins) Total time: 44 minutes Winnie Arteaga PT PROGRESS Observed: 12/28/2017 Status: COMPLETED Source: [place] 3:01 PM [facility] REPOSITORY HNO ID: [id number] Author: Winnie Arteaga Service: (none) Author Type: Physical Therapist Type: Progress Notes Filed: 12/29/2017 11:59 AM Note Text: Episode Visit Count: 3 Therapist That Will Oversee The Plan Of Care: Winnie Arteaga PT Start of Care Date: 12/19/14 Plan of Care Certification Date: 12/19/17 Patient Identified by Name and Date of : Yes REHABILITATION AND SPORTS THERAPY PHYSICAL THERAPY TREATMENT NOTE ASSESSMENT: Jarod Looney demonstrated increase soreness and aching following last treatment which has persisted. She is very receptive to pain education cards and feels they are helpful. Patient did exercises 2x/day yesterday and had not done exercise prior to afternoon appointment today. Patient with a slight reduction in pain today and felt quadruped mid back stretch was helpful. The patient will continue to benefit from continued skilled physical therapy for progression of core strength and pain education. PLAN FOR NEXT VISIT: Continue with educational cards Pain and the Brain and graded exercises. Add mid back stretch to HEP next visit. SUBJECTIVE: Patient reports sore and aching in back following last visit. She reports soreness has persists. She reports neck pain also today. Pain Score: 4/10 Pain Location: Low Back/Lumbar Spine - Right;Low Back/Lumbar Spine - Left Description: Aching;Sore Frequency: Intermittent Post Treatment Pain Score: 3/10 Pain Location: Low Back/Lumbar Spine - Right;Low Back/Lumbar Spine - Left Post Treatment Pain Description: Aching;Sore OBJECTIVE MEASURES WITH LEVEL OF FUNCTION: Quadruped mid back stretch decreased low back pain today. TREATMENT: Therapeutic Exercise: 1: Step One stepper seat 12 x 7 minutes. Pain science education on sensitive nerves were introduced to patient during this time. Patient very receptive to education that was provided. 2: Ambulation on treadmill 1.0 mph x 8 minutes and 15 seconds. 3: Hooklying rotations 1x12 each direction with education to stay in pain free range. 4: DKC 3x30 seconds with instruction to stay in pain free range. 5: Posterior pelvic tilt x 10. 6: Bridging 1x10 and 1x5 with instruction to stay in pain free range. 7: Supine TA with 2-3 second hold x 10. 8: Standing B hip flexion, extension and abduction 2x10. 9: Supine TA with alt arm lifts x 10. 10: Supine TA with bent knee fall outs x 10. 11: Supine TA with marching x 10. 12: Supine TA with opposite arm and leg lifts x 10. 13: Midback stretch in quadruped positon dropping buttocks toward heels 3x10 second hold. 14: Stir the pot on Hoist 1 large plate cw and ccw facing each direction x 10. Skilled Intervention: Patient was educated in proper exercise technique and purpose for exercises. Skilled judgment was provided in selection of appropriate interventions. Correct performance of therapeutic exercises was facilitated with verbal and visual cuing. Neuromuscular Re-Education: 1: Neuroscience of pain [place] while patient seated on stepper. Also Calming nerves while on treadmill and for part of exercises x 20 minutes. Skilled Intervention: Spreading Pain (Nosy neighbors): Patient educated regarding spreading pain symptoms, and that feeling pain in adjacent areas of the body does not indicate definite tissue injury. Hyperalgesia, immune responses and central sensitization topics were introduced using metaphors to promote deep learning. Calming Sensitive Nerves Patient was educated regarding endogenous mechanisms and strategies to increase the brain?s production of chemicals which decrease pain, such as aerobic exercise and improved pain knowledge. The concepts of pacing, graded exposure, ?sore but safe?, and ?hurt does not equal harm? were discussed. Sleep hygiene and diaphragmatic breathing topics introduced to help calm the nervous system and reduce stress. Neuro education was done while patient was exercising. Billing: [facility]: Therapeutic Exercise ([id number]): 1:1 time: 45 minutes (3 units: 38-52 mins) Neuromuscular Re-education ([id number]): no charge . Education was done while patient was exercising. Total time: 45 minutes ISELA Shields PT CNTHERAPY Observed: 12/28/2017 Status: COMPLETED Source: [place] 2:15 PM [facility] REPOSITORY OT/PT/Speech Visit (PTWS) JAROD LOONEY ([id number]) 1970 F Date Time Provider Department 12/28/17 2:15 PM LAKISHA CONRAD) PTWS Date Time Provider Department Center 12/28/2017 2:15 PM [id number] CONRAD) PTWS [facility] Reason for Visit: Physical Therapy [503] Primary Visit Diagnosis:Chronic pain syndrome [G89.4] Other Visit Diagnoses:Anxiety and depression [F41.9, F32.9] Fibromyalgia syndrome [M79.7] Allergies As of Date: 12/28/2017 Noted Allergy Reaction PENICILLIN G 04/18/2013 7 - Swelling REQUIP (ROPINIROLE) 04/18/2013 14 - Other: See Comments Comments: seizures Date Reviewed: 12/07/2017 Reviewed by: Kanwal Hwang) SHARON Nichole - Fully Assessed Prescriptions as of 12/28/2017 Sig: LIRAGLUTIDE 0.6 MG/0.1 ML (18* Inject 0.6mg daily for 1 week* INSULIN DEGLUDEC (U-100) 100 * Inject 65 Units subcutaneousl* GABAPENTIN 100 MG CAPSULE TAKE 1 CAPSULE BY MOUTH 3 TI* NAPROXEN 500 MG TABLET Take 1 tablet by mouth twice * FREESTYLE LANCETS 28 GAUGE CHECK BLOOD GLUCOSE TWO TIME* LIDOCAINE 5 % TOPICAL CREAM Apply 1 application to affect* METFORMIN 1,000 MG TABLET Take 1 tablet by mouth twice * AMLODIPINE 5 MG TABLET TAKE 1 TABLET BY MOUTH ONCE D* VENLAFAXINE ER 150 MG CAPSULE* TAKE 1 CAPSULE BY MOUTH ONCE* FENOFIBRATE NANOCRYSTALLIZED * TAKE 1 TABLET BY MOUTH ONCE D* LOSARTAN 100 MG TABLET TAKE ONE-HALF TABLET BY MOUT* ATORVASTATIN 20 MG TABLET TAKE 1 TABLET BY MOUTH ONCE D* ATENOLOL 50 MG TABLET TAKE 1 TABLET BY MOUTH ONCE D* OMEPRAZOLE 20 MG CAPSULE,SAYRA* TAKE 1 CAPSULE BY MOUTH HUGO* MONTELUKAST 10 MG TABLET TAKE 1 TABLET BY MOUTH DAILY* PEN NEEDLE, DIABETIC 31 GAUGE* Use one needle per dose. once* BLOOD SUGAR DIAGNOSTIC STRIPS Use as instructed LINZESS 145 MCG CAPSULE take 1 capsule by mouth once * SYRINGE WITH NEEDLE, SAFETY 3* 1 mL once each week. ASPIRIN 81 MG TABLET,DELAYED * Take 1 tablet by mouth once d* Progress Notes: Winnie Arteaga PT 12/29/2017 11:59 AM Signed Episode Visit Count: 3 Therapist That Will Oversee The Plan Of Care: Winnie Arteaga PT Start of Care Date: 12/19/14 Plan of Care Certification Date: 12/19/17 Patient Identified by Name and Date of : Yes REHABILITATION AND SPORTS THERAPY PHYSICAL THERAPY TREATMENT NOTE ASSESSMENT: Jarod Looney demonstrated increase soreness and aching following last treatment which has persisted. She is very receptive to pain education cards and feels they are helpful. Patient did exercises 2x/day yesterday and had not done exercise prior to afternoon appointment today. Patient with a slight reduction in pain today and felt quadruped mid back stretch was helpful. The patient will continue to benefit from continued skilled physical therapy for progression of core strength and pain education. PLAN FOR NEXT VISIT: Continue with educational cards Pain and the Brain and graded exercises. Add mid back stretch to HEP next visit. SUBJECTIVE: Patient reports sore and aching in back following last visit. She reports soreness has persists. She reports neck pain also today. Pain Score: 4/10 Pain Location: Low Back/Lumbar Spine - Right;Low Back/Lumbar Spine - Left Description: Aching;Sore Frequency: Intermittent Post Treatment Pain Score: 3/10 Pain Location: Low Back/Lumbar Spine - Right;Low Back/Lumbar Spine - Left Post Treatment Pain Description: Aching;Sore OBJECTIVE MEASURES WITH LEVEL OF FUNCTION: Quadruped mid back stretch decreased low back pain today. TREATMENT: Therapeutic Exercise: 1: Step One stepper seat 12 x 7 minutes. Pain science education on sensitive nerves were introduced to patient during this time. Patient very receptive to education that was provided. 2: Ambulation on treadmill 1.0 mph x 8 minutes and 15 seconds. 3: Hooklying rotations 1x12 each direction with education to stay in pain free range. 4: DKC 3x30 seconds with instruction to stay in pain free range. 5: Posterior pelvic tilt x 10. 6: Bridging 1x10 and 1x5 with instruction to stay in pain free range. 7: Supine TA with 2-3 second hold x 10. 8: Standing B hip flexion, extension and abduction 2x10. 9: Supine TA with alt arm lifts x 10. 10: Supine TA with bent knee fall outs x 10. 11: Supine TA with marching x 10. 12: Supine TA with opposite arm and leg lifts x 10. 13: Midback stretch in quadruped positon dropping buttocks toward heels 3x10 second hold. 14: Stir the pot on Hoist 1 large plate cw and ccw facing each direction x 10. Skilled Intervention: Patient was educated in proper exercise technique and purpose for exercises. Skilled judgment was provided in selection of appropriate interventions. Correct performance of therapeutic exercises was facilitated with verbal and visual cuing. Neuromuscular Re-Education: 1: Neuroscience of pain [place] while patient seated on stepper. Also Calming nerves while on treadmill and for part of exercises x 20 minutes. Skilled Intervention: Spreading Pain (Nosy neighbors): Patient educated regarding spreading pain symptoms, and that feeling pain in adjacent areas of the body does not indicate definite tissue injury. Hyperalgesia, immune responses and central sensitization topics were introduced using metaphors to promote deep learning. Calming Sensitive Nerves Patient was educated regarding endogenous mechanisms and strategies to increase the brain?s production of chemicals which decrease pain, such as aerobic exercise and improved pain knowledge. The concepts of pacing, graded exposure, ?sore but safe?, and ?hurt does not equal harm? were discussed. Sleep hygiene and diaphragmatic breathing topics introduced to help calm the nervous system and reduce stress. Neuro education was done while patient was exercising. Billing: [facility]: Therapeutic Exercise ([id number]): 1:1 time: 45 minutes (3 units: 38-52 mins) Neuromuscular Re-education ([id number]): no charge . Education was done while patient was exercising. Total time: 45 minutes ISELA Shields PT Previous Version Follow-up and Disposition History Recorded PROGRESS Observed: 12/26/2017 Status: COMPLETED Source: [place] 2:41 PM [facility] HNO ID: [id number] Author: Winnie Arteaga Service: (none) Author Type: Physical Therapist Type: Progress Notes Filed: 12/26/2017 7:15 PM Note Text: Episode Visit Count: 2 Therapist That Will Oversee The Plan Of Care: Winnie Arteaga PT Start of Care Date: 12/19/14 Plan of Care Certification Date: 12/19/17 Patient Identified by Name and Date of : Yes REHABILITATION AND SPORTS THERAPY PHYSICAL THERAPY TREATMENT NOTE ASSESSMENT: Jardo Looney demonstrated improved ability to tolerate newly added exercises. She was receptive to Neuroscience education for sensitive nerves. Patient with decrease back pain to no pain with exercises and left hip pain increased 4/10. The patient will continue to benefit from continued skilled physical therapy for progression of graded exercises and neuroscience education. PLAN FOR NEXT VISIT: Monitor and review newly added exercises. PNE Cards: Calming Senstive Nerves SUBJECTIVE: Patient reports B low back hurts today. Patient reports feeling good over the weekend but had a flare up last Tuesday and today. Pain Score: 4/10 Pain Location: Low Back/Lumbar Spine - Right;Low Back/Lumbar Spine - Left Description: Aching Frequency: Intermittent Post Treatment Pain Score: No Change (in back and left hip pain increased 4/10) Post Treatment Pain Description: Aching OBJECTIVE MEASURES WITH LEVEL OF FUNCTION: Verbal cues and education needed for upright seated posture. TREATMENT: Therapeutic Exercise: 1: Step One stepper seat 12 x 6.5 minutes. Pain science education on sensitive nerves were introduced to patient during this time. Patient very receptive to education that was provided. 2: Ambulation on treadmill 1.0 mph x 7 minutes. 3: *Hooklying rotations 1x10 each direction. 4: *DKC 3x30 seconds with instruction to stay in pain free range. 5: *Posterior pelvic tilt x 10. 6: *Bridging 2x10 with instruction to stay in pain free range. 7: *Supine, sit and stand TA x 10 with 3 second hold. 8: Standing B hip flexion, extension and abduction 2x10. Skilled Intervention: Patient was educated in proper exercise technique and purpose for exercises. Reviewed and educated patient on additions/changes for home exercise program as above (*) Skilled judgment was provided in selection of appropriate interventions. Provided written instruction for home exercise program to facilitate proper performance and compliance. Correct performance of therapeutic exercises was facilitated with verbal and visual cuing. Neuromuscular Re-Education: 1: Neuroscienc of pain education on sensitive nerves done while patient was on Seated stepper. Skilled Intervention: Sensitive Nerves: Patient educated on the concept of the nervous system as the bodies alarm system, and the role of nociception to warn the body of danger. Peripheral nerve sensitization, hyperalgesia and allodynia were explained using metaphors to promote deep learning. Homework: Patient encouraged to identify personal yellow flags, and explore/identify activity limitations as a result of nervous system hypersensitivity. Billing: [facility]: Therapeutic Exercise ([id number]): 1:1 time: 45 minutes (3 units: 38-52 mins) Neuro re-education (07179) no charge. Included in therapeutic exercise charge. Total time: 45 minutes Lakisha Conrad PTDenise Arteaga PT CNTHERAPY Observed: 12/26/2017 Status: COMPLETED Source: [place] 2:00 PM [facility] REPOSITORY OT/PT/Speech Visit (PTWS) JAROD LOONEY ([id number]) 1970 F Date Time Provider Department 12/26/17 2:00 PM LAKISHA CONRAD (GRID TRIMMER) PTWS Date Time Provider Department Center 12/26/2017 2:00 PM [id number], NANCY (GRID TRIMMER) PTWS [facility] Reason for Visit: Physical Therapy [503] Primary Visit Diagnosis:Chronic pain syndrome [G89.4] Other Visit Diagnoses:Anxiety and depression [F41.9, F32.9] Fibromyalgia syndrome [M79.7] Allergies As of Date: 12/26/2017 Noted Allergy Reaction PENICILLIN G 04/18/2013 7 - Swelling REQUIP (ROPINIROLE) 04/18/2013 14 - Other: See Comments Comments: seizures Date Reviewed: 12/07/2017 Reviewed by: Kanwal Nichole MA - Fully Assessed Prescriptions as of 12/26/2017 Sig: LIRAGLUTIDE 0.6 MG/0.1 ML (18* Inject 0.6mg daily for 1 week* INSULIN DEGLUDEC (U-100) 100 * Inject 65 Units subcutaneousl* GABAPENTIN 100 MG CAPSULE TAKE 1 CAPSULE BY MOUTH 3 TI* NAPROXEN 500 MG TABLET Take 1 tablet by mouth twice * FREESTYLE LANCETS 28 GAUGE CHECK BLOOD GLUCOSE TWO TIME* LIDOCAINE 5 % TOPICAL CREAM Apply 1 application to affect* METFORMIN 1,000 MG TABLET Take 1 tablet by mouth twice * AMLODIPINE 5 MG TABLET TAKE 1 TABLET BY MOUTH ONCE D* VENLAFAXINE ER 150 MG CAPSULE* TAKE 1 CAPSULE BY MOUTH ONCE* FENOFIBRATE NANOCRYSTALLIZED * TAKE 1 TABLET BY MOUTH ONCE D* LOSARTAN 100 MG TABLET TAKE ONE-HALF TABLET BY MOUT* ATORVASTATIN 20 MG TABLET TAKE 1 TABLET BY MOUTH ONCE D* ATENOLOL 50 MG TABLET TAKE 1 TABLET BY MOUTH ONCE D* OMEPRAZOLE 20 MG CAPSULE,SAYRA* TAKE 1 CAPSULE BY MOUTH HUGO* MONTELUKAST 10 MG TABLET TAKE 1 TABLET BY MOUTH DAILY* PEN NEEDLE, DIABETIC 31 GAUGE* Use one needle per dose. once* BLOOD SUGAR DIAGNOSTIC STRIPS Use as instructed LINZESS 145 MCG CAPSULE take 1 capsule by mouth once * SYRINGE WITH NEEDLE, SAFETY 3* 1 mL once each week. ASPIRIN 81 MG TABLET,DELAYED * Take 1 tablet by mouth once d* Progress Notes: Winnie Arteaga PT 12/26/2017 7:15 PM Signed Episode Visit Count: 2 Therapist That Will Oversee The Plan Of Care: Winnie Arteaga PT Start of Care Date: 12/19/14 Plan of Care Certification Date: 12/19/17 Patient Identified by Name and Date of : Yes REHABILITATION AND SPORTS THERAPY PHYSICAL THERAPY TREATMENT NOTE ASSESSMENT: Jarod Looney demonstrated improved ability to tolerate newly added exercises. She was receptive to Neuroscience education for sensitive nerves. Patient with decrease back pain to no pain with exercises and left hip pain increased 4/10. The patient will continue to benefit from continued skilled physical therapy for progression of graded exercises and neuroscience education. PLAN FOR NEXT VISIT: Monitor and review newly added exercises. PNE Cards: Calming Senstive Nerves SUBJECTIVE: Patient reports B low back hurts today. Patient reports feeling good over the weekend but had a flare up last Tuesday and today. Pain Score: 4/10 Pain Location: Low Back/Lumbar Spine - Right;Low Back/Lumbar Spine - Left Description: Aching Frequency: Intermittent Post Treatment Pain Score: No Change (in back and left hip pain increased 4/10) Post Treatment Pain Description: Aching OBJECTIVE MEASURES WITH LEVEL OF FUNCTION: Verbal cues and education needed for upright seated posture. TREATMENT: Therapeutic Exercise: 1: Step One stepper seat 12 x 6.5 minutes. Pain science education on sensitive nerves were introduced to patient during this time. Patient very receptive to education that was provided. 2: Ambulation on treadmill 1.0 mph x 7 minutes. 3: *Hooklying rotations 1x10 each direction. 4: *DKC 3x30 seconds with instruction to stay in pain free range. 5: *Posterior pelvic tilt x 10. 6: *Bridging 2x10 with instruction to stay in pain free range. 7: *Supine, sit and stand TA x 10 with 3 second hold. 8: Standing B hip flexion, extension and abduction 2x10. Skilled Intervention: Patient was educated in proper exercise technique and purpose for exercises. Reviewed and educated patient on additions/changes for home exercise program as above (*) Skilled judgment was provided in selection of appropriate interventions. Provided written instruction for home exercise program to facilitate proper performance and compliance. Correct performance of therapeutic exercises was facilitated with verbal and visual cuing. Neuromuscular Re-Education: 1: Neuroscienc of pain education on sensitive nerves done while patient was on Seated stepper. Skilled Intervention: Sensitive Nerves: Patient educated on the concept of the nervous system as the bodies alarm system, and the role of nociception to warn the body of danger. Peripheral nerve sensitization, hyperalgesia and allodynia were explained using metaphors to promote deep learning. Homework: Patient encouraged to identify personal yellow flags, and explore/identify activity limitations as a result of nervous system hypersensitivity. Billing: [facility]: Therapeutic Exercise ([id number]): 1:1 time: 45 minutes (3 units: 38-52 mins) Neuro re-education ([id number]) no charge. Included in therapeutic exercise charge. Total time: 45 minutes Lakisha Conrad PT-Rober Arteaga PT Previous Version Follow-up and Disposition History Recorded PROGRESS Observed: 12/22/2017 Status: COMPLETED Source: [place] 1:30 PM [facility] REPOSITORY [facility] ID: [id number] Author: Suman Cabrera (Pharmacist) Service: (none) Author Type: Pharmacist Type: Progress Notes Filed: 12/23/2017 5:09 PM Note Text: Patient consents to pharmacy collaborative practice agreement. REASON FOR CONSULT: DM? GOALS: A1c <?8% CONSULTING PROVIDER: Cindy Molina CNP?? Date of Consult: 04/2017 Jarod Looney is a 47 year old female was last seen in [facility] by PCP, Dr. MELYSSA MOBLEY MD on 09/09/17. Also had appt with Gina Stanley Cnp, on 12/07/17. Subjective: Patient is presenting with her mother (Ying Phlean) today for f/u pharmacotherapy management appointment for diabetes. At last PharmD visit on 11/14, no medication changes were made. INTERIM HISTORY: At appt with Field Representative/Health Education on 12/07, patient was started on naproxen 500mg BID and acetaminophen for pain No glucometer with her today Reports sugars are high in afternoon (160-180 2 hours after lunch); she is concerned about these numbers Reports FBGs are usually 120-140 Reports only checking BGs once weekly Doesn't check BGs in evening; says they are not too bad Denies any BGs >200 in past couple months (reports she used to eat late at night and would eat junk food; not doing that anymore) Still using ice to numb dulaglutide injection site, but still causing welts She cannot tolerate injections, reports it gives her anxiety because of the pain Still thirsty frequently Feels like her sugar is up now in office because she is sweating; says she just ate before appt Occasionally has flare-up of fibromyalgia; patient thinks the stress on her body may elevate her BGs Reports being recently diagnosed with chronic pain syndrome Still smoking; not interested in quitting at this time Past DM medications: Liraglutide switched to dulaglutide on 08/24/17 - BGs were not at goal on max dose of therapy ? Current DM Medications: Insulin degludec 60 units once daily Metformin 1,000mg BID Dulaglutide 1.5mg once weekly on Sundays (reports last dose was Tuesday, 12/19) ? Current HTN Medications: Amlodipine 5mg once daily Atenolol 50mg once daily Losartan 50mg once daily (take 0.5 tablet of 100mg) Preventative Medications: ? On MANDY/ARB: Yes ? On Statin: Yes ? On ASA: Yes ROS: ? Patient denies CP, SOB, TATUM, blurred vision, dizziness or lightheadedness ? Patient denies symptoms of hypoglycemia (sweating, anxiety, palpitations, hunger, and tremor) ? Patient reports symptoms of hyperglycemia (polyuria, polydipsia, polyphagia) ? Patient denies potential medication adverse effects DIET/EXERCISE/SOCIAL Hx: ? No changes MEDICATIONS: ? Pill bottles are not present. ? Adherence: denies missed doses. ? Pharmacy: [facility] (mail order) ? Rx coverage: [employer] ? Affordability: denies issue ? Diabetes supplies: One Touch ? Organization System: pill box ACTIVE PROBLEM LIST Anxiety and Depression Hyperlipidemia Hypertension Fibromyalgia Syndrome Tobacco Abuse Type 2 Diabetes Mellitus With Diabetic Nephropathy (Hcc) Proteinuria Tendinitis of Thumb Raynaud's Syndrome Irritable Bowel Syndrome With Diarrhea Restless Leg Syndrome Chronic Pain Syndrome PAST MEDICAL HISTORY Diagnosis Date - De Quervain's tenosynovitis, bilateral - Diabetes (HCC) - Hypercholesterolemia - Raynaud's disease ALLERGIES Allergen Reactions - Penicillin G Swelling - Requip [Ropinirole] Other: See Comments seizures Medication List Medication Directions Comments Action/Plan amLODIPine (NORVASC) 5 mg tablet TAKE 1 TABLET BY MOUTH ONCE DAILY aspirin, enteric coated (ADULT LOW DOSE ASPIRIN) 81 mg EC tablet Take 1 tablet by mouth once daily. atenolol (TENORMIN) 50 mg tablet TAKE 1 TABLET BY MOUTH ONCE DAILY atorvastatin (LIPITOR) 20 mg tablet TAKE 1 TABLET BY MOUTH ONCE DAILY blood sugar diagnostic ([employer] ULTRA TEST) test strip Use as instructed dulaglutide (TRULICITY) 1.5 mg/ 0.5 ml subcutaneous pen injector Inject 1.5 mg subcutaneously once each week. taking fenofibrate nanocrystallized (TRICOR) 145 mg tablet TAKE 1 TABLET BY MOUTH ONCE DAILY FREESTYLE LANCETS 28 gauge misc CHECK BLOOD GLUCOSE TWO TIMES DAILY Discontinued: 12/16/2017 8:13 AM gabapentin (NEURONTIN) 100 mg capsule TAKE 1 CAPSULE BY MOUTH 3 TIMES DAILY insulin degludec (TRESIBA FLEXTOUCH U-100) 100 unit/mL (3 mL) injection Inject 60 Units subcutaneously once daily. taking insulin needles, DISPOSABLE, (PEN NEEDLE) 31 gauge x 5/16 ndle Use one needle per dose. once per day. lidocaine (ANECREAM5) crea Apply 1 application to affected area as needed. Prior to using Trulicity weekly. Allow cream to dry completely prior to injection. LINZESS 145 mcg cap take 1 capsule by mouth once daily losartan (COZAAR) 100 mg tablet TAKE ONE-HALF TABLET BY MOUTH ONCE DAILY metFORMIN (GLUCOPHAGE) 1,000 mg tablet Take 1 tablet by mouth twice daily with meals. taking montelukast (SINGULAIR) 10 mg tablet TAKE 1 TABLET BY MOUTH DAILY AT BEDTIME Discontinued: 12/14/2017 5:29 PM naproxen (NAPROSYN) 500 mg tablet Take 1 tablet by mouth twice daily as needed (for pain/inflammation). Take with food. omeprazole (PRILOSEC) 20 mg capsule TAKE 1 CAPSULE BY MOUTH DAILY BEFORE BREAKFAST Syringe with Needle, Safety (3CC SAFETY SYRINGE 25GX5/8) 3 mL 25 x 5/8 syrg 1 mL once each week. venlafaxine ER (EFFEXOR XR) 150 mg 24 hr capsule TAKE 1 CAPSULE BY MOUTH ONCE DAILY GLYCEMIC CONTROL: ? Glucometer present at visit: No ? SMBG?s: reports FBGs usually 120-140 and PPG usually 168- 180, but also reports only checking BG 1x/week ? Hypoglycemia: denies Objective: VITALS: There were no vitals taken for this visit. Last 3 Encounter BP Readings: Date: BP: 12/07/2017 122/81 11/14/2017 123/76 09/09/2017 110/60 Wt: 85.3 kg (188 lb) BMI: 31.28 kg/(m2) LABS Lab Results Component Value Date HBA1C 8.5 12/17/2017 HBA1C 8.7 08/13/2017 HBA1C 9.2 05/21/2017 CMP: Glucose 185 12/17/2017 BUN 11 12/17/2017 Creatinine 0.62 12/17/2017 Sodium 138 12/17/2017 Potassium 4.4 12/17/2017 Chloride 101 12/17/2017 CO2 23 12/17/2017 Protein, Total 6.8 05/21/2017 Albumin 4.3 05/21/2017 Calcium 10.0 12/17/2017 Alkaline Phosphatase 84 05/21/2017 Bilirubin, Total 0.2 05/21/2017 AST 14 05/21/2017 ALT 22 05/21/2017 Estimated CrCL 119.6 mL/min (calculated using Ht 165.1 cm, adjusted Wt 68.3 kg, sCr 0.62 mg/dL, using [place] Gault) Last Lipid Panel Lab Results Component Value Date CHOL 171 05/21/2017 Lab Results Component Value Date HDL 29 05/21/2017 Lab Results Component Value Date LDL Unable to calculate due to increased Triglycerides. See LDL-Chol, Direct. 05/21/2017 Lab Results Component Value Date TG 497 05/21/2017 10-year ASCVD risk: 14% Albumin/Creat Ratio (mg/g) Date Value 09/10/2017 225 (H) PHARMACOTHERAPY ASSESSMENT/PLAN: 1. Type 2 diabetes mellitus with diabetic nephropathy, with long-term current use of insulin (HCC) - ICD9: 250.40, 583.81, V58.67, ICD10: E11.21, Z79.4 (primary diagnosis) A1c goal <8% per consult but could consider tighter goal of <7% given age; uncontrolled based on last A1c (8.5%); A1c is not payroll representative of the reported SMBGs, and it was discovered that patient is only checking BG once weekly; no concerns for hypoglycemia; will increase insulin dose today despite lack of SMBG data given that recent A1c was elevated and patient has frequent symptomatic hyperglycemia; patient intolerant of dulaglutide injections; patient was previously on liraglutide but tolerated injection well, but it was switched to dulaglutide because patient was not reaching goal levels; today will switch patient from dulaglutide back to liraglutide and will continue to work on lifestyle modifications and insulin titrations to help achieve goal; patient reports adherence to DM meds; PharmD emphasized the importance of daily BG checks and patient said she understood; renal fxn and LFTs WNL and appropriate for continued use - INCREASE insulin degludec to 65 units daily (8% dose increase) - DISCONTINUE dulaglutide 1.5mg weekly - INITIATE liraglutide 0.6mg daily x 1 week (starting on Tuesday, 12/26), then increase to 1.2mg daily; once tolerated, will increase to 1.8mg daily - CONTINUE metformin 1000mg BID - Requested patient check BG daily - alternate between FBG and 2-hours after dinner 2. Hyperlipidemia, unspecified hyperlipidemia type - ICD9: 272.4, ICD10: E78.5 elevated ASCVD mostly d/t tobacco use; patient taking a moderate-intensity statin although she is indicated for high-intensity given her hx DM and ASCVD risk > 7.5%; TRGs still elevated despite fenofibrate; taking low-dose aspirin for elevated ASCVD risk even though USPSTF recommendations suggest aspirin-use for primary ASCVD prophylaxis at ages 50-59 yo if risk > 10%; patient tolerating meds well; LFTs and renal fxn WNL and appropriate for continued therapy; will continue current regimen at this time, monitor lipids; t/c increasing atorvastatin dose to high intensity at next appt; in future, also t/c reevaluating the role of fenofibrate in therapy since it is not associated with mortality benefit and contributes to polypharmacy; in future, will encourage patient to continue making lifestyle modifications to help reduce TRG levels (minimize carbs, increase physical activity, minimize EtOH - although patient denies use) - CONTINUE atorvastatin 20mg daily, aspirin 81mg daily, fenofibrate 145mg daily 3. Tobacco abuse - ICD9: 305.1, ICD10: Z72.0 Pre-contemplative stage of change; still unwilling to quit smoking; will continue to address at future appts Patient is scheduled to see PCP on 01/13. Patient to return to clinic for PharmD f/u on 01/25. Patient verbalized understanding of instructions. Suman Cabrera PharmD, [facility] Primary Care Clinical Pharmacist [facility] PROGRESS Observed: 12/22/2017 Status: COMPLETED Source: [place] 1:30 PM [facility] REPOSITORY [facility] ID: [id number] Author: Emiliano Welch (Pharmacist) Service: (none) Author Type: Pharmacist Type: Progress Notes Filed: 12/23/2017 5:09 PM Note Text: The patient's case was discussed with the PharmD?who interviewed the patient alone. Johnson elements of history confirmed during office visit. The progress note reflects my input and comments. ? Emiliano Welch PharmD, [facility] Primary Care Clinical Pharmacist [facility] CNOV Observed: 12/22/2017 Status: COMPLETED Source: [place] 1:30 PM [facility] REPOSITORY Office Visit (PHMEWO) JAROD LOONEY ([id number]) 1970 F Date Time Provider Department 12/22/17 1:30 PM YURI (PHARMACIST)EMILIANO During your visit today, we recorded the following information about you: SUMAN CABRERA PHARMACIST 12/23/2017 10:56 AM Signed Patient consents to pharmacy collaborative practice agreement. REASON FOR CONSULT: DM? GOALS: A1c <?8% CONSULTING PROVIDER: Cindy Molina CNP?? Date of Consult: 04/2017 Jarod Looney is a 47 year old female was last seen in [facility] by PCP, Dr. MELYSSA MOBLEY MD on 09/09/17. Also had appt with Gina Stanley Cnp, on 12/07/17. Subjective: Patient is presenting with her mother (Ying Phelan) today for f/u pharmacotherapy management appointment for diabetes. At last PharmD visit on 11/14, no medication changes were made. INTERIM HISTORY: At appt with Raoul on 12/07, patient was started on naproxen 500mg BID and acetaminophen for pain No glucometer with her today Reports sugars are high in afternoon (160-180 2 hours after lunch); she is concerned about these numbers Reports FBGs are usually 120-140 Reports only checking BGs once weekly Doesn't check BGs in evening; says they are not too bad Denies any BGs >200 in past couple months (reports she used to eat late at night and would eat junk food; not doing that anymore) Still using ice to numb dulaglutide injection site, but still causing welts She cannot tolerate injections, reports it gives her anxiety because of the pain Still thirsty frequently Feels like her sugar is up now in office because she is sweating; says she just ate before appt Occasionally has flare-up of fibromyalgia; patient thinks the stress on her body may elevate her BGs Reports being recently diagnosed with chronic pain syndrome Still smoking; not interested in quitting at this time Past DM medications: Liraglutide switched to dulaglutide on 08/24/17 - BGs were not at goal on max dose of therapy ? Current DM Medications: Insulin degludec 60 units once daily Metformin 1,000mg BID Dulaglutide 1.5mg once weekly on Sundays (reports last dose was Tuesday, 12/19) ? Current HTN Medications: Amlodipine 5mg once daily Atenolol 50mg once daily Losartan 50mg once daily (take 0.5 tablet of 100mg) Preventative Medications: ? On MANDY/ARB: Yes ? On Statin: Yes ? On ASA: Yes ROS: ? Patient denies CP, SOB, TATUM, blurred vision, dizziness or lightheadedness ? Patient denies symptoms of hypoglycemia (sweating, anxiety, palpitations, hunger, and tremor) ? Patient reports symptoms of hyperglycemia (polyuria, polydipsia, polyphagia) ? Patient denies potential medication adverse effects DIET/EXERCISE/SOCIAL Hx: ? No changes MEDICATIONS: ? Pill bottles are not present. ? Adherence: denies missed doses. ? [facility] ? Rx coverage: [facility] ? Affordability: denies issue ? Diabetes supplies: One Touch ? Organization System: pill box ACTIVE PROBLEM LIST Anxiety and Depression Hyperlipidemia Hypertension Fibromyalgia Syndrome Tobacco Abuse Type 2 Diabetes Mellitus With Diabetic Nephropathy (Hcc) Proteinuria Tendinitis of Thumb Raynaud's Syndrome Irritable Bowel Syndrome With Diarrhea Restless Leg Syndrome Chronic Pain Syndrome PAST MEDICAL HISTORY Diagnosis Date - De Quervain's tenosynovitis, bilateral - Diabetes (HCC) - Hypercholesterolemia - Raynaud's disease ALLERGIES Allergen Reactions - Penicillin G Swelling - Requip [Ropinirole] Other: See Comments seizures Medication List Medication Directions Comments Action/Plan amLODIPine (NORVASC) 5 mg tablet TAKE 1 TABLET BY MOUTH ONCE DAILY aspirin, enteric coated (ADULT LOW DOSE ASPIRIN) 81 mg EC tablet Take 1 tablet by mouth once daily. atenolol (TENORMIN) 50 mg tablet TAKE 1 TABLET BY MOUTH ONCE DAILY atorvastatin (LIPITOR) 20 mg tablet TAKE 1 TABLET BY MOUTH ONCE DAILY blood sugar diagnostic ([employer] ULTRA TEST) test strip Use as instructed dulaglutide (TRULICITY) 1.5 mg/ 0.5 ml subcutaneous pen injector Inject 1.5 mg subcutaneously once each week. taking fenofibrate nanocrystallized (TRICOR) 145 mg tablet TAKE 1 TABLET BY MOUTH ONCE DAILY FREESTYLE LANCETS 28 gauge misc CHECK BLOOD GLUCOSE TWO TIMES DAILY Discontinued: 12/16/2017 8:13 AM gabapentin (NEURONTIN) 100 mg capsule TAKE 1 CAPSULE BY MOUTH 3 TIMES DAILY insulin degludec (TRESIBA FLEXTOUCH U-100) 100 unit/mL (3 mL) injection Inject 60 Units subcutaneously once daily. taking insulin needles, DISPOSABLE, (PEN NEEDLE) 31 gauge x 5/16 ndle Use one needle per dose. once per day. lidocaine (ANECREAM5) crea Apply 1 application to affected area as needed. Prior to using Trulicity weekly. Allow cream to dry completely prior to injection. LINZESS 145 mcg cap take 1 capsule by mouth once daily losartan (COZAAR) 100 mg tablet TAKE ONE-HALF TABLET BY MOUTH ONCE DAILY metFORMIN (GLUCOPHAGE) 1,000 mg tablet Take 1 tablet by mouth twice daily with meals. taking montelukast (SINGULAIR) 10 mg tablet TAKE 1 TABLET BY MOUTH DAILY AT BEDTIME Discontinued: 12/14/2017 5:29 PM naproxen (NAPROSYN) 500 mg tablet Take 1 tablet by mouth twice daily as needed (for pain/inflammation). Take with food. omeprazole (PRILOSEC) 20 mg capsule TAKE 1 CAPSULE BY MOUTH DAILY BEFORE BREAKFAST Syringe with Needle, Safety (3CC SAFETY SYRINGE 25GX5/8) 3 mL 25 x 5/8 syrg 1 mL once each week. venlafaxine ER (EFFEXOR XR) 150 mg 24 hr capsule TAKE 1 CAPSULE BY MOUTH ONCE DAILY GLYCEMIC CONTROL: ? Glucometer present at visit: No ? SMBG?s: reports FBGs usually 120-140 and PPG usually 168- 180, but also reports only checking BG 1x/week ? Hypoglycemia: denies Objective: VITALS: There were no vitals taken for this visit. Last 3 Encounter BP Readings: Date: BP: 12/07/2017 122/81 11/14/2017 123/76 09/09/2017 110/60 Wt: 85.3 kg (188 lb) BMI: 31.28 kg/(m2) LABS Lab Results Component Value Date HBA1C 8.5 12/17/2017 HBA1C 8.7 08/13/2017 HBA1C 9.2 05/21/2017 CMP: Glucose 185 12/17/2017 BUN 11 12/17/2017 Creatinine 0.62 12/17/2017 Sodium 138 12/17/2017 Potassium 4.4 12/17/2017 Chloride 101 12/17/2017 CO2 23 12/17/2017 Protein, Total 6.8 05/21/2017 Albumin 4.3 05/21/2017 Calcium 10.0 12/17/2017 Alkaline Phosphatase 84 05/21/2017 Bilirubin, Total 0.2 05/21/2017 AST 14 05/21/2017 ALT 22 05/21/2017 Estimated CrCL 119.6 mL/min (calculated using Ht 165.1 cm, adjusted Wt 68.3 kg, sCr 0.62 mg/dL, using [place] Gault) Last Lipid Panel Lab Results Component Value Date CHOL 171 05/21/2017 Lab Results Component Value Date HDL 29 05/21/2017 Lab Results Component Value Date LDL Unable to calculate due to increased Triglycerides. See LDL-Chol, Direct. 05/21/2017 Lab Results Component Value Date TG 497 05/21/2017 10-year ASCVD risk: 14% Albumin/Creat Ratio (mg/g) Date Value 09/10/2017 225 (H) PHARMACOTHERAPY ASSESSMENT/PLAN: 1. Type 2 diabetes mellitus with diabetic nephropathy, with long-term current use of insulin ([facility]) - ICD9: 250.40, 583.81, V58.67, ICD10: E11.21, Z79.4 (primary diagnosis) A1c goal <8% per consult but could consider tighter goal of <7% given age; uncontrolled based on last A1c (8.5%); A1c is not payroll representative of the reported SMBGs, and it was discovered that patient is only checking BG once weekly; no concerns for hypoglycemia; will increase insulin dose today despite lack of SMBG data given that recent A1c was elevated and patient has frequent symptomatic hyperglycemia; patient intolerant of dulaglutide injections; patient was previously on liraglutide but tolerated injection well, but it was switched to dulaglutide because patient was not reaching goal levels; today will switch patient from dulaglutide back to liraglutide and will continue to work on lifestyle modifications and insulin titrations to help achieve goal; patient reports adherence to DM meds; PharmD emphasized the importance of daily BG checks and patient said she understood; renal fxn and LFTs WNL and appropriate for continued use - INCREASE insulin degludec to 65 units daily (8% dose increase) - DISCONTINUE dulaglutide 1.5mg weekly - INITIATE liraglutide 0.6mg daily x 1 week (starting on Tuesday, 12/26), then increase to 1.2mg daily; once tolerated, will increase to 1.8mg daily - CONTINUE metformin 1000mg BID - Requested patient check BG daily - alternate between FBG and 2-hours after dinner 2. Hyperlipidemia, unspecified hyperlipidemia type - ICD9: 272.4, ICD10: E78.5 elevated ASCVD mostly d/t tobacco use; patient taking a moderate-intensity statin although she is indicated for high-intensity given her hx DM and ASCVD risk > 7.5%; TRGs still elevated despite fenofibrate; taking low-dose aspirin for elevated ASCVD risk even though USPSTF recommendations suggest aspirin-use for primary ASCVD prophylaxis at ages 50-59 yo if risk > 10%; patient tolerating meds well; LFTs and renal fxn WNL and appropriate for continued therapy; will continue current regimen at this time, monitor lipids; t/c increasing atorvastatin dose to high intensity at next appt; in future, also t/c reevaluating the role of fenofibrate in therapy since it is not associated with mortality benefit and contributes to polypharmacy; in future, will encourage patient to continue making lifestyle modifications to help reduce TRG levels (minimize carbs, increase physical activity, minimize EtOH - although patient denies use) - CONTINUE atorvastatin 20mg daily, aspirin 81mg daily, fenofibrate 145mg daily 3. Tobacco abuse - ICD9: 305.1, ICD10: Z72.0 Pre-contemplative stage of change; still unwilling to quit smoking; will continue to address at future appts Patient is scheduled to see PCP on 01/13. Patient to return to clinic for PharmD f/u on 01/25. Patient verbalized understanding of instructions. Suman Cabrera PharmD, [facility] Primary Care Clinical Pharmacist [place] DEO LACY 12/22/2017 1:56 PM Addendum Today we are going to switch you from Trulicity to Victoza. STOP Trulicity START Victoza 0.6mg daily on Tuesday, 12/26. Take 0.6mg daily for 1 week, then increase dose to 1.2mg daily. INCREASE dose of Tresiba (insulin) to 65 units daily. Please check your blood sugars once daily. Check first thing in the morning and 2 hours after dinner (alternate days). EMILIANO WELCH PHARMACIST 12/23/2017 5:09 PM Signed The patient's case was discussed with the PharmD?who interviewed the patient alone. Johnson elements of history confirmed during office visit. The progress note reflects my input and comments. ? Emiliano Welch PharmD, [facility] Primary Care Clinical Pharmacist [facility] Allergies As of Date: 12/22/2017 Noted Allergy Reaction PENICILLIN G 04/18/2013 7 - Swelling REQUIP (ROPINIROLE) 04/18/2013 14 - Other: See Comments Comments: seizures Date Reviewed: 12/07/2017 Reviewed by: Kanwal Hwang) SHARON Nichole - Fully Assessed Reason for Visit: Allied Health Visit [5] Cmt: DM f/u Primary Visit Diagnosis:Type 2 diabetes mellitus with diabetic nephropathy, with long-term current use of insulin (HCC) [E11.21, Z79.4] Other Visit Diagnoses:Hyperlipidemia, unspecified hyperlipidemia type [E78.5] Tobacco abuse [Z72.0] Order(s):liraglutide (VICTOZA) 0.6 mg/ 0.1 ml subcutaneous pen injectorInject 0.6mg daily for 1 week, then increase to 1.2mg daily.Disp: 1 PackageRfl: 5 insulin degludec (TRESIBA FLEXTOUCH U-100) 100 unit/mL (3 mL) injectionInject 65 Units subcutaneously once daily.Disp: Rfl: Prescriptions as of 12/22/2017 Sig: LIRAGLUTIDE 0.6 MG/0.1 ML (18* Inject 0.6mg daily for 1 week* INSULIN DEGLUDEC (U-100) 100 * Inject 65 Units subcutaneousl* GABAPENTIN 100 MG CAPSULE TAKE 1 CAPSULE BY MOUTH 3 TI* NAPROXEN 500 MG TABLET Take 1 tablet by mouth twice * FREESTYLE LANCETS 28 GAUGE CHECK BLOOD GLUCOSE TWO TIME* LIDOCAINE 5 % TOPICAL CREAM Apply 1 application to affect* METFORMIN 1,000 MG TABLET Take 1 tablet by mouth twice * AMLODIPINE 5 MG TABLET TAKE 1 TABLET BY MOUTH ONCE D* VENLAFAXINE ER 150 MG CAPSULE* TAKE 1 CAPSULE BY MOUTH ONCE* FENOFIBRATE NANOCRYSTALLIZED * TAKE 1 TABLET BY MOUTH ONCE D* LOSARTAN 100 MG TABLET TAKE ONE-HALF TABLET BY MOUT* ATORVASTATIN 20 MG TABLET TAKE 1 TABLET BY MOUTH ONCE D* ATENOLOL 50 MG TABLET TAKE 1 TABLET BY MOUTH ONCE D* OMEPRAZOLE 20 MG CAPSULE,SAYRA* TAKE 1 CAPSULE BY MOUTH HUGO* MONTELUKAST 10 MG TABLET TAKE 1 TABLET BY MOUTH DAILY* PEN NEEDLE, DIABETIC 31 GAUGE* Use one needle per dose. once* BLOOD SUGAR DIAGNOSTIC STRIPS Use as instructed LINZESS 145 MCG CAPSULE take 1 capsule by mouth once * SYRINGE WITH NEEDLE, SAFETY 3* 1 mL once each week. ASPIRIN 81 MG TABLET,DELAYED * Take 1 tablet by mouth once d* Problem List As Of Date 12/22/2017 Noted Resolved Anxiety and depression [F41.9, F32.9] INVALID FOR* More... Hyperlipidemia [E78.5] INVALID FOR* More... Hypertension [I10] INVALID FOR* More... Fibromyalgia syndrome [M79.7] INVALID FOR* More... Tobacco abuse [Z72.0] INVALID FOR* More... 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 Proteinuria [R80.9] INVALID FOR* Tendinitis of thumb [M77.8] INVALID FOR* More... Raynaud's syndrome [I73.00] INVALID FOR* More... Irritable bowel syndrome with diarrhea [K58.0] INVALID FOR* Restless leg syndrome [G25.81] INVALID FOR* Chronic pain syndrome [G89.4] INVALID FOR* Other instructions from your clinician: Today we are going to switch you from Trulicity to Victoza. STOP Trulicity START Victoza 0.6mg daily on Tuesday, 12/26. Take 0.6mg daily for 1 week, then increase dose to 1.2mg daily. INCREASE dose of Tresiba (insulin) to 65 units daily. Please check your blood sugars once daily. Check first thing in the morning and 2 hours after dinner (alternate days). Prescriptions ordered this encounter Disp Refills Start End LIRAGLUTIDE 0.6 MG/0.1 ML (18 MG/3 M* 1 Pa* 5 12/22/2017 Cmt: Please place on hold. Sig: Inject 0.6mg daily for 1 week, then increase to 1.2mg daily. INSULIN DEGLUDEC (U-100) 100 UNIT/ML* 12/22/2017 Class: Med Update Route: SUBCUTANEOUS Sig: Inject 65 Units subcutaneously once daily. Medications Discontinued During This Encounter dulaglutide (TRULICITY) 1.5 mg/ 0.5 * 12 P* 3 09/26/2017 12/22/2017 Route: SUBCUTANEOUS Sig: Inject 1.5 mg subcutaneously once each week. Disc: Side Effects insulin degludec (TRESIBA FLEXTOUCH * 5 Pen 11 08/04/2017 12/22/2017 Route: SUBCUTANEOUS Sig: Inject 60 Units subcutaneously once daily. Disc: Reason for discontinue is not on file. Follow-up and Disposition History Recorded Encounter Status:Closed by YURI (PHARMACIST)EMILIANO on 12/23/17 PROGRESS Observed: 12/22/2017 Status: COMPLETED Source: [place] 7:25 AM [facility] [place] REPOSITORY O ID: [id number] Author: Winnie Arteaga Service: (none) Author Type: Physical Therapist Type: Progress Notes Filed: 12/22/2017 7:44 AM Note Text: Episode Visit Count: 1 Therapist That Will Oversee The Plan Of Care: Winnie Arteaga PT Start of Care Date: 12/19/14 Plan of Care Certification Date: 12/19/17 Patient Identified by Name and Date of : Yes REHABILITATION AND SPORTS THERAPY PHYSICAL THERAPY EVALUATION PLAN OF CARE: Assessment: Jarod Looney presents with the diagnosis of chronic pain syndrome, anxiety/depression, and fibromyalgia syndrome. Her reports of pain and her ability to move are disproportionate. She has diffuse non anatomic pain. She has normal knee and hip ROM and excellent LE strength. She presents with impairments of poor posture awareness, impaired lumbar flexion/extension/Side bending ROM, decreased core strength, decreased endurance. and increased risk of falls based on the 30 sec STS she was only able to complete 9 reps and a woman of 47 years old should be able to complete 18. She may benefit from skilled therapy services to improve how she rashid with her chronic pain syndrome. She has never had formal therapy. She would benefit from graded exercise and use of Pain Neuroscience Education cards. Patient very open to trying. She seemed to have a baseline knowledge of the nervous system, so should be receptive to information provided to her in future visits with the E flashcards. Classification Low Back Pain Subgroup Classification: Graded activity subgroup: recommended visits 12. Graded Activity Subgroup Classification based on: diffuse non anatomic pain;disproportionate pain;maladaptive psychosocial factors;exam findings suggestive of central sensitization Prognosis: Fair Fair due to: clinical presentation;multiple co- morbidities;chronic nature of impairments;coping skills Goals for Episode of Care: created on 12/19/14 through 03/16/18 Patient will report an average pain of 3/10 to show a clinically significant difference. [place] in home exercise program. Patient will increase active ROM of lumbar flexion, extension, side bending to normal allow pt to to achieve neutral postural alignment. Patient will increase strength of core to at least 4+/5 to allow for perform ADLs. Demonstrate improvement on functional score: Patient will improve his/her score on Quick DASH by 8% to indicate a Minimal Clinical Important Difference . Improve postural awareness. (Goal: 67%) Patient will improve 30sec STS to [address] patient at a decreased risk of falls. Patient will improve TUG to 7 sec. Patient will report being able to walk 30 minutes a day. G CODE REPORTING Based on clinical assessment and the score on the Quick Dash Assessment Tool, the G code and corresponding severity modifiers are documented below. Evaluation: 12/19/2017 Current Status: Changing AND Maintaining Body Position: G8981 CL 60-79% impaired Goal Status: Changing AND Maintaining Body Position: G8982 CL 60-79% impaired Planned Interventions, Frequency, and Duration: Current Frequency: 2x/week Duration: 8 weeks Total Number of Visits Planned: 17 Planned Treatment Interventions: Therapeutic exercise;Neuromuscular re-education;Manual therapy;Therapeutic activities;Self-long term management;Patient/Family/Caregiver Education;General Conditioning PLAN FOR NEXT VISIT: Sensitive Nerve Reece PNE cards to go over. Graded exercise focusing on whole body exercises along with core strengthening. Would recommed PNE flash cards at every visit. Patient demonstrates fair understanding of plan of care and treatment. The above goals and plan of care were discussed and agreed upon by patient/family. SUBJECTIVE: Jarod Looney is a 47 year old female seen today for has pain in every joint of her her body. Was just diagnosed clinically with fibromalgia and uses fibro cream on hands and feet as well as lower back. Has used over the counter and anti-flamatory meds. Was taking naproxen for tendinitis. Is on disability for her arm pain. Gets headaches with fibro flair ups; the fibro flair ups can last for 24 hours to 7 days[address] Is waiting for Dr. Delacruz's office to call back to schedule a visit. Patient tries to walk around in the house as she doesn't want to be an involent. Takes increased time to complete laundry, house work, or cooking. Likes to do dishes due to the warm water. Weather changes do not help her body either. Right handed. 7 years ago worked out 3 hours a day 7 days a week. Functional Limitations: walking;rising from a chair;standing;physical activities;recreational activities;dressing;carrying;pushing Prior Level of Function: Independent with restrictions Patient Goals: to feel better and increase activity Intake Information: Prescription present Previous Treatment: Pain meds?;NSAIDs?;Heat? Falls Interview: No positive findings with falls interview Relevant History Employment: Medically Disabled Home Environment Patient Lives With: (Fiancee and 23 yo son (Tino)) Home Type: Apt/Condo Pain Score: 5/10 (Worst: 10+/10) Pain Location: (entire body) Description: Aching Frequency: Continuous Post Treatment Pain Score: No Change OBJECTIVE MEASURES WITH LEVEL OF FUNCTION: Posture / Alignment Posture: Forward head;Rounded shoulders Lumbar Spine AROM Lumbar Flexion: Minimal limitation (pain at end range in the center) Lumbar Extension: Minimal limitation (pain in the center of back at end range) Lumbar R Side-Bend: Minimal limitation (pain at end range in the center) Lumbar L Side-Bend: Minimal limitation (pain at end range in the center) Lumbar R Rotation: Normal (pain at end range in the center less than prior motions) Lumbar L Rotation: Normal (pain at end range in the center less than prior motions) UE AROM R Shoulder Flex: 145 Degrees R Shoulder ABduction: 145 Degrees R Shoulder Internal Rotation (Functional): T10 R Shoulder External Rotation (Functional): Back of neck L Shoulder Flex: 147 Degrees L Shoulder ABduction: 147 Degrees L Shoulder Internal Rotation (Functional): T10 L Shoulder External Rotation (Functional): Back of neck LE AROM R LE AROM: WFL for hips (pain at end ranges of normal motion) L LE AROM: WFL for hips (pain at end ranges of normal motion) R Knee Extension: 0 Degrees R Knee Flexion: 145 Degrees L Knee Extension: 0 Degrees L Knee Flexion: 145 Degrees LE Flexibility Flexibility: Hamstring Flexibility R Hamstring Flexibility: WFL L Hamstring Flexibility: WFL LE Strength Trunk Strength: 3+/5 R LE Strength: 5/5 L LE Strength: 5/5 Special Tests - Hip and Spine Hip and Spine Special Tests: RAJEEV Test;SLR Test SLR Test: Left Negative;Right Negative RAJEEV Test: Left Negative;Right Negative 30 Second Sit to Stand Test (reps): 9 reps (stopped d/t knee pain) Timed Up and Go (sec): 9 sec Education: Education Learning Preferences: Demonstration;Explanation;Performance;Printed Materials Barriers: (Chronic nature of impairments) Learning/educational needs: Home exercise program;Plan of Care;Posture;Health promotion Education Provided: Yes, see treatment interventions for education provided Education Provided To: Patient Education Mode/Type: Demonstration;Explanation/Discussion;Literature/Printed Materials;Performance Response to Education/Teach Back: Return Demonstration;States/Identifies;Requires Review/Additional Education TREATMENT: Evaluation Therapeutic Exercise: 1: *Walked on treadmill 6 minutes at 1.0mph (Goal to be at 8-10 mins a day walking inside apt building) 2: *Standing hip ABD, Ext, and Flexion 2x5, each side Skilled Intervention: Patient was educated in proper exercise technique and purpose for exercises. Reviewed and educated patient on additions/changes for home exercise program as above (*) Skilled judgment was provided in selection of appropriate interventions. Provided written instruction for home exercise program to facilitate proper performance and compliance. Correct performance of therapeutic exercises was facilitated with verbal, visual and tactile cuing. Educated patient goal is for patient to walk 30 minutes a day. Can be broken into chunks of time 10 minutes 3x or 15 minutes 2x. Explained to patient benefit of exercise to help with her chronic pain and fibromyalgia. Neuromuscular Re-Education: (This was discussed during walking on the treadmill, will be billed under ther ex) 1: Introduced Concepts of Pain Neuroscience (PNE) 2: Talked to patient about nervous systems sending messages to spinal cord to brain and brain decides what to do with the messages. Some time the nervous system gets over loaded and have to learn techniques to cope with the pain. Explained one way this is done is through graded exercise. Gave examples of stubbing toe and Lion coming into a room. Also talked to patient having highs and lows interupt the nervous system and have to find coping stregies to help calm the system. Shared with patient will be using flashcards to provided Pain Neuroscience Education. Skilled Intervention: Education provided above on PNE Billing:[facility]: Evaluation - Moderate Complexity (69345) Therapeutic Exercise (55560): 1:1 time: 15 minutes (1 unit: 8-22 mins) Total time: 45 minutes Winnie Arteaga, PT, DPT, CLT CNTHERAPY Observed: 12/19/2017 Status: COMPLETED Source: [place] 12:15 PM [facility] RE[facility] OT/PT/Speech Visit (PTWS) JAROD LOONEY ([id number]) 1970 F Date Time Provider Department 12/19/17 12:15 PM WINNIE ARTEAGA (PT) PTWS Date Time Provider Department [place] 12/19/2017 12:15 PM [id number], DIANA (PT)PTWS [facility] Reason for Visit: PT Eval [747] Patient Education [91] Primary Visit Diagnosis:Chronic pain syndrome [G89.4] Other Visit Diagnoses:Anxiety and depression [F41.9, F32.9] Fibromyalgia syndrome [M79.7] Allergies As of Date: 12/19/2017 Noted Allergy Reaction PENICILLIN G 04/18/2013 7 - Swelling REQUIP (ROPINIROLE) 04/18/2013 14 - Other: See Comments Comments: seizures Date Reviewed: 12/07/2017 Reviewed by: Kanwal Hwang) SHARON Nichole - Fully Assessed Prescriptions as of 12/19/2017 Sig: GABAPENTIN 100 MG CAPSULE TAKE 1 CAPSULE BY MOUTH 3 TI* NAPROXEN 500 MG TABLET Take 1 tablet by mouth twice * FREESTYLE LANCETS 28 GAUGE CHECK BLOOD GLUCOSE TWO TIME* LIDOCAINE 5 % TOPICAL CREAM Apply 1 application to affect* METFORMIN 1,000 MG TABLET Take 1 tablet by mouth twice * DULAGLUTIDE 1.5 MG/0.5 ML SUB* Inject 1.5 mg subcutaneously * AMLODIPINE 5 MG TABLET TAKE 1 TABLET BY MOUTH ONCE D* VENLAFAXINE ER 150 MG CAPSULE* TAKE 1 CAPSULE BY MOUTH ONCE* FENOFIBRATE NANOCRYSTALLIZED * TAKE 1 TABLET BY MOUTH ONCE D* LOSARTAN 100 MG TABLET TAKE ONE-HALF TABLET BY MOUT* ATORVASTATIN 20 MG TABLET TAKE 1 TABLET BY MOUTH ONCE D* ATENOLOL 50 MG TABLET TAKE 1 TABLET BY MOUTH ONCE D* OMEPRAZOLE 20 MG CAPSULE,SAYRA* TAKE 1 CAPSULE BY MOUTH HUGO* MONTELUKAST 10 MG TABLET TAKE 1 TABLET BY MOUTH DAILY* INSULIN DEGLUDEC (U-100) 100 * Inject 60 Units subcutaneousl* PEN NEEDLE, DIABETIC 31 GAUGE* Use one needle per dose. once* BLOOD SUGAR DIAGNOSTIC STRIPS Use as instructed LINZESS 145 MCG CAPSULE take 1 capsule by mouth once * SYRINGE WITH NEEDLE, SAFETY 3* 1 mL once each week. ASPIRIN 81 MG TABLET,DELAYED * Take 1 tablet by mouth once d* Progress Notes: Winnie Arteaga PT 12/22/2017 7:44 AM Signed Episode Visit Count: 1 Therapist That Will Oversee The Plan Of Care: Winnie Arteaga PT Start of Care Date: 12/19/14 Plan of Care Certification Date: 12/19/17 Patient Identified by Name and Date of : Yes REHABILITATION AND SPORTS THERAPY PHYSICAL THERAPY EVALUATION PLAN OF CARE: Assessment: Jarod Looney presents with the diagnosis of chronic pain syndrome, anxiety/depression, and fibromyalgia syndrome. Her reports of pain and her ability to move are disproportionate. She has diffuse non anatomic pain. She has normal knee and hip ROM and excellent LE strength. She presents with impairments of poor posture awareness, impaired lumbar flexion/extension/Side bending ROM, decreased core strength, decreased endurance. and increased risk of falls based on the 30 sec STS she was only able to complete 9 reps and a woman of 47 years old should be able to complete 18. She may benefit from skilled therapy services to improve how she rashid with her chronic pain syndrome. She has never had formal therapy. She would benefit from graded exercise and use of Pain Neuroscience Education cards. Patient very open to trying. She seemed to have a baseline knowledge of the nervous system, so should be receptive to information provided to her in future visits with the E flashcards. Classification Low Back Pain Subgroup Classification: Graded activity subgroup: recommended visits 12. Graded Activity Subgroup Classification based on: diffuse non anatomic pain;disproportionate pain;maladaptive psychosocial factors;exam findings suggestive of central sensitization Prognosis: Fair Fair due to: clinical presentation;multiple co- morbidities;chronic nature of impairments;coping skills Goals for Episode of Care: created on 12/19/14 through 03/16/18 Patient will report an average pain of 3/10 to show a clinically significant difference. [place] in home exercise program. Patient will increase active ROM of lumbar flexion, extension, side bending to normal allow pt to to achieve neutral postural alignment. Patient will increase strength of core to at least 4+/5 to allow for perform ADLs. Demonstrate improvement on functional score: Patient will improve his/her score on Quick DASH by 8% to indicate a Minimal Clinical Important Difference . Improve postural awareness. (Goal: 67%) Patient will improve 30sec STS to [address] patient at a decreased risk of falls. Patient will improve TUG to 7 sec. Patient will report being able to walk 30 minutes a day. G CODE REPORTING Based on clinical assessment and the score on the Quick Dash Assessment Tool, the G code and corresponding severity modifiers are documented below. Evaluation: 12/19/2017 Current Status: Changing AND Maintaining Body Position: G8981 CL 60-79% impaired Goal Status: Changing AND Maintaining Body Position: G8982 CL 60-79% impaired Planned Interventions, Frequency, and Duration: Current Frequency: 2x/week Duration: 8 weeks Total Number of Visits Planned: 17 Planned Treatment Interventions: Therapeutic exercise;Neuromuscular re-education;Manual therapy;Therapeutic activities;Self-long term management;Patient/Family/Caregiver Education;General Conditioning PLAN FOR NEXT VISIT: Sensitive Nerve Reece PNE cards to go over. Graded exercise focusing on whole body exercises along with core strengthening. Would recommed PNE flash cards at every visit. Patient demonstrates fair understanding of plan of care and treatment. The above goals and plan of care were discussed and agreed upon by patient/family. SUBJECTIVE: Jarod Looney is a 47 year old female seen today for has pain in every joint of her her body. Was just diagnosed clinically with fibromalgia and uses fibro cream on hands and feet as well as lower back. Has used over the counter and anti-flamatory meds. Was taking naproxen for tendinitis. Is on disability for her arm pain. Gets headaches with fibro flair ups; the fibro flair ups can last for 24 hours to 7 days. Is waiting for Dr. Delacruz's office to call back to schedule a visit. Patient tries to walk around in the house as she doesn't want to be an involent. Takes increased time to complete laundry, house work, or cooking. Likes to do dishes due to the warm water. Weather changes do not help her body either. Right handed. 7 years ago worked out 3 hours a day 7 days a week. Functional Limitations: walking;rising from a chair;standing;physical activities;recreational activities;dressing;carrying;pushing Prior Level of Function: Independent with restrictions Patient Goals: to feel better and increase activity Intake Information: Prescription present Previous Treatment: Pain meds?;NSAIDs?;Heat? Falls Interview: No positive findings with falls interview Relevant History Employment: Medically Disabled Home Environment Patient Lives With: (Fiancee and 23 yo son (Tino)) Home Type: Apt/Condo Pain Score: 5/10 (Worst: 10+/10) Pain Location: (entire body) Description: Aching Frequency: Continuous Post Treatment Pain Score: No Change OBJECTIVE MEASURES WITH LEVEL OF FUNCTION: Posture / Alignment Posture: Forward head;Rounded shoulders Lumbar Spine AROM Lumbar Flexion: Minimal limitation (pain at end range in the center) Lumbar Extension: Minimal limitation (pain in the center of back at end range) Lumbar R Side-Bend: Minimal limitation (pain at end range in the center) Lumbar L Side-Bend: Minimal limitation (pain at end range in the center) Lumbar R Rotation: Normal (pain at end range in the center less than prior motions) Lumbar L Rotation: Normal (pain at end range in the center less than prior motions) UE AROM R Shoulder Flex: 145 Degrees R Shoulder ABduction: 145 Degrees R Shoulder Internal Rotation (Functional): T10 R Shoulder External Rotation (Functional): Back of neck L Shoulder Flex: 147 Degrees L Shoulder ABduction: 147 Degrees L Shoulder Internal Rotation (Functional): T10 L Shoulder External Rotation (Functional): Back of neck LE AROM R LE AROM: WFL for hips (pain at end ranges of normal motion) L LE AROM: WFL for hips (pain at end ranges of normal motion) R Knee Extension: 0 Degrees R Knee Flexion: 145 Degrees L Knee Extension: 0 Degrees L Knee Flexion: 145 Degrees LE Flexibility Flexibility: Hamstring Flexibility R Hamstring Flexibility: WFL L Hamstring Flexibility: WFL LE Strength Trunk Strength: 3+/5 R LE Strength: 5/5 L LE Strength: 5/5 Special Tests - Hip and Spine Hip and Spine Special Tests: RAJEEV Test;SLR Test SLR Test: Left Negative;Right Negative RAJEEV Test: Left Negative;Right Negative 30 Second Sit to Stand Test (reps): 9 reps (stopped d/t knee pain) Timed Up and Go (sec): 9 sec Education: Education Learning Preferences: Demonstration;Explanation;Performance;Printed Materials Barriers: (Chronic nature of impairments) Learning/educational needs: Home exercise program;Plan of Care;Posture;Health promotion Education Provided: Yes, see treatment interventions for education provided Education Provided To: Patient Education Mode/Type: Demonstration;Explanation/Discussion;Literature/Printed Materials;Performance Response to Education/Teach Back: Return Demonstration;States/Identifies;Requires Review/Additional Education TREATMENT: Evaluation Therapeutic Exercise: 1: *Walked on treadmill 6 minutes at 1.0mph (Goal to be at 8-10 mins a day walking inside apt building) 2: *Standing hip ABD, Ext, and Flexion 2x5, each side Skilled Intervention: Patient was educated in proper exercise technique and purpose for exercises. Reviewed and educated patient on additions/changes for home exercise program as above (*) Skilled judgment was provided in selection of appropriate interventions. Provided written instruction for home exercise program to facilitate proper performance and compliance. Correct performance of therapeutic exercises was facilitated with verbal, visual and tactile cuing. Educated patient goal is for patient to walk 30 minutes a day. Can be broken into chunks of time 10 minutes 3x or 15 minutes 2x. Explained to patient benefit of exercise to help with her chronic pain and fibromyalgia. Neuromuscular Re-Education: (This was discussed during walking on the treadmill, will be billed under ther ex) 1: Introduced Concepts of Pain Neuroscience (PNE) 2: Talked to patient about nervous systems sending messages to spinal cord to brain and brain decides what to do with the messages. Some time the nervous system gets over loaded and have to learn techniques to cope with the pain. Explained one way this is done is through graded exercise. Gave examples of stubbing toe and Lion coming into a room. Also talked to patient having highs and lows interupt the nervous system and have to find coping stregies to help calm the system. Shared with patient will be using flashcards to provided Pain Neuroscience Education. Skilled Intervention: Education provided above on PNE Billing:[facility]: Evaluation - Moderate Complexity (97044) Therapeutic Exercise (09681): 1:1 time: 15 minutes (1 unit: 8-22 mins) Total time: 45 minutes Winnie Arteaga, PT, DPT, CLT BASIC METABOLIC PANL Collected: 12/17/2017 Status: F Source: [place] 7:55 AM [facility] REPOSITORY TYPE CODE TESTS RESULT OUT OF REFERENCE UNITS RANGE LAB GLU 74-99 mg/dL High Glucose 185 Result Comment: The [place] Diabetes Association (ADA) provides guidance for cutoff values for fasting glucose and random glucose. The ADA defines fasting as no caloric intake for at least 8 hours. Fas ting plasma glucose results between 100 to 125 mg/dL indicate increased risk for diabetes (prediabetes). Fasting plasma glucose results greater than or equal to 126 mg/dL meet the criteria for diagnosis of diabetes. In the absence of unequivocal hyperglycemia, results should be confirmed by repeat testing. In a patient with classic symptoms of hyperglycemia or hyperglycemic crisis, random plasma glucose results greater than or equal to 200 mg/dL meet the criteria for diagnosis of diabetes. Reference: Standards of Medical Care in Diabetes 2016, [place] [employer] Association. Diabetes Care. 2016.39(Suppl 1). LAB BUN 7-21 mg/dL BUN 11 LAB CRET 0.58-0.96 mg/dL Creatinine 0.62 LAB NA 136-144 mmol/L Sodium 138 LAB K 3.7-5.1 mmol/L Potassium 4.4 LAB CL 97-105 mmol/L Chloride 101 LAB CO2 22-30 mmol/L CO2 23 LAB AGAP 9-18 mmol/L Anion Gap 14 LAB CA 8.5-10.2 mg/dL Calcium, Total 10.0 LAB GFRAA eGFR- Amer. >60 LAB GFRNAA . eGFR-All Other Races >60 Result Comment: eGFR (Estimated GFR) Units of measure: mL/min/1.73 meters squared eGFR is derived from the reexpressed MDRD Study equation using the following parameters: serum creatinine, age, gender and race. The creatinine assay has been calibrated to be traceable to IDMS. An eGFR <60 mL/min/1.73m2 for >3 months is consistent with chronic kidney disease. Refer to KDOQI guidelines for clinical interpretation. In patients with unstable renal function, e.g. those with acute kidney injury, the eGFR may not accurately reflect actual GFR. Performed By: #### BMP, HBA1C #### [facility] [address] [place], [place] [address] HEMOGLOBIN A1C Collected: 12/17/2017 Status: F Source: [place] 7:55 AM [facility] REPOSITORY TYPE CODE TESTS RESULT OUT OF REFERENCE UNITS RANGE LAB HGBA1C 4.3-5.6 % High Hemoglobin A1c 8.5 LAB HBA0 mg/dL Est. Average Glucose 197 Result Comment: eAG: (Estimated average glucose) is a calculated value from HgbA1c and is payroll representative of the average blood glucose level in the last 2-3 month period. Performed By: #### BMP, HBA1C #### [facility] [address] [place] [id number] ANGELINE Observed: 12/07/2017 Status: COMPLETED Source: [place] 2:00 PM [facility] REPOSITORY Office Visit (FAMPWS) JAROD LOONEY ([id number]) 1970 F Date Time Provider Department 12/07/17 2:00 PM GINA STANLEY ([facility]) FAMPWS During your visit today, we recorded the following information about you: Temperature Pulse Respiration Blood pressure 98.1 degrees 82/minute 20/minute 122/81 Weight 85.3 kg Gina Stanley APRN.RAOUL 12/07/2017 4:37 PM Signed 12/07/2017 Patient presents with: Arthritis: flare up and neck and TATUM since tuesday SUBJECTIVE: This is a 47 year old that is here today for generalized chronic pain flare up. She states that she has been dealing with this for 3 years now. She is frustrated without a diagnosis since all of the blood work recently came back normal. She states that everything hurts she cannot even touch her skin without hurting. She has been taking 1000mg of naproxen daily instead of 500 bid. She has to sleep with a electric blanket to help with her joints. PAST MEDICAL HISTORY Diagnosis Date - De Quervain's tenosynovitis, bilateral - Diabetes (HCC) - Hypercholesterolemia - Raynaud's disease ALLERGIES Penicillin G; Requip [Ropinirole] MEDICATIONS Current Outpatient Prescriptions: FREESTYLE LANCETS 28 gauge [facility] [place] BLOOD GLUCOSE TWO TIMES DAILY lidocaine (ANECREAM5) crea Apply 1 application to affected area as needed. Prior to using Trulicity weekly. Allow cream to dry completely prior to injection. metFORMIN (GLUCOPHAGE) 1,000 mg tablet Take 1 tablet by mouth twice daily with meals. dulaglutide (TRULICITY) 1.5 mg/ 0.5 ml subcutaneous pen injector Inject 1.5 mg subcutaneously once each week. amLODIPine (NORVASC) 5 mg tablet TAKE 1 TABLET BY MOUTH ONCE DAILY venlafaxine ER (EFFEXOR XR) 150 mg 24 hr capsule TAKE 1 CAPSULE BY MOUTH ONCE DAILY fenofibrate nanocrystallized (TRICOR) 145 mg tablet TAKE 1 TABLET BY MOUTH ONCE DAILY losartan (COZAAR) 100 mg tablet TAKE ONE-HALF TABLET BY MOUTH ONCE DAILY atorvastatin (LIPITOR) 20 mg tablet TAKE 1 TABLET BY MOUTH ONCE DAILY atenolol (TENORMIN) 50 mg tablet TAKE 1 TABLET BY MOUTH ONCE DAILY omeprazole (PRILOSEC) 20 mg capsule TAKE 1 CAPSULE BY MOUTH DAILY BEFORE BREAKFAST montelukast (SINGULAIR) 10 mg tablet TAKE 1 TABLET BY MOUTH DAILY AT BEDTIME insulin degludec (TRESIBA FLEXTOUCH U-100) 100 unit/mL (3 mL) injection Inject 60 Units subcutaneously once daily. gabapentin (NEURONTIN) 100 mg capsule Take 1 capsule by mouth three times daily. insulin needles, DISPOSABLE, (PEN NEEDLE) 31 gauge x 5/16 ndle Use one needle per dose. once per day. naproxen (NAPROSYN) 500 mg tablet Take 1 tablet by mouth twice daily as needed (for pain/inflammation). Take with food. blood sugar diagnostic (ONETOUCH ULTRA TEST) test strip Use as instructed LINZESS 145 mcg cap take 1 capsule by mouth once daily Syringe with Needle, Safety (3CC SAFETY SYRINGE 25GX5/8) 3 mL 25 x 5/8 syrg 1 mL once each week. aspirin, enteric coated (ADULT LOW DOSE ASPIRIN) 81 mg EC tablet Take 1 tablet by mouth once daily. No current facility-administered medications for this visit. Medications and allergies reviewed by this provider. SOCIAL HISTORY Social History Marital status: Single Spouse name: Years of education: Number of children: Occupational History Occupation Employer Comment disabled Social History Main Topics Smoking status: Current Every Day Smoker Packs/day: 0.50 Years: 21.00 Types: Cigarettes Smokeless tobacco: Never Used Alcohol use: No Drug use: No Sexual activity: Yes Partners with: Male REVIEW OF SYSTEMS see HPI OBJECTIVE: BP 122/81 Pulse 82 Temp 36.7 ?C (98.1 ?F) Resp 20 Wt 85.3 kg (188 lb) SpO2 98% BMI 31.28 kg/m? . Vital signs reviewed by this provider. PHYSICAL EXAMINATION: General appearance: Well appearing, alert, in no acute distress, well-hydrated, well nourished. Skin: Skin color, texture, turgor normal, no suspicious rashes or lesions Back: tender to touch in all locations, full ROM but complains of pain Lungs: Lungs clear to auscultation. No wheezing, rhonchi, rales Heart: RRR without murmur, gallop, or rubs. No ectopy Musculoskeletal: all joints and every location touched she reports pain, unwilling to test strength due to pain Peripheral pulses: Capillary refill <2secs, strong peripheral pulses Neuro: Gait normal. Sensation grossly intact. ASSESSMENT/PLAN: 1. Chronic pain syndrome - ICD9: 338.4, ICD10: G89.4 - reports of pain are not consistent with how she is acting at rest and walking. - encouraged naproxen 500 BID and adding tylenol arthritis as the package recommends, no more - encouraged healthy diet, exercise, and weight loss - CONSULT TO PAIN MGT ANESTHESIA - CONSULT TO PHYSICAL THERAPY - follow up as planned with PCP Gina Stanley APRN.RELIEF MATE Referring Provider: SELF [200] Allergies As of Date: 12/07/2017 Noted Allergy Reaction PENICILLIN G 04/18/2013 7 - Swelling REQUIP (ROPINIROLE) 04/18/2013 14 - Other: See Comments Comments: seizures Date Reviewed: 12/07/2017 Reviewed by: Kanwal Hwang) SHARON Nichole - Fully Assessed Reason for Visit: Arthritis [10] Cmt: flare up and neck and TATUM since tuesday Primary Visit Diagnosis:Chronic pain syndrome [G89.4] Order(s):CONSULT TO PAIN MGT ANESTHESIA [139545] Order #: [id number]: 1 CONSULT TO PHYSICAL THERAPY [9032] Order #: [id number]: 1 Prescriptions as of 12/07/2017 Sig: FREESTYLE LANCETS 28 GAUGE CHECK BLOOD GLUCOSE TWO TIME* LIDOCAINE 5 % TOPICAL CREAM Apply 1 application to affect* METFORMIN 1,000 MG TABLET Take 1 tablet by mouth twice * DULAGLUTIDE 1.5 MG/0.5 ML SUB* Inject 1.5 mg subcutaneously * AMLODIPINE 5 MG TABLET TAKE 1 TABLET BY MOUTH ONCE D* VENLAFAXINE ER 150 MG CAPSULE* TAKE 1 CAPSULE BY MOUTH ONCE* FENOFIBRATE NANOCRYSTALLIZED * TAKE 1 TABLET BY MOUTH ONCE D* LOSARTAN 100 MG TABLET TAKE ONE-HALF TABLET BY MOUT* ATORVASTATIN 20 MG TABLET TAKE 1 TABLET BY MOUTH ONCE D* ATENOLOL 50 MG TABLET TAKE 1 TABLET BY MOUTH ONCE D* OMEPRAZOLE 20 MG CAPSULE,SAYRA* TAKE 1 CAPSULE BY MOUTH HUGO* MONTELUKAST 10 MG TABLET TAKE 1 TABLET BY MOUTH DAILY* INSULIN DEGLUDEC (U-100) 100 * Inject 60 Units subcutaneousl* GABAPENTIN 100 MG CAPSULE Take 1 capsule by mouth three* PEN NEEDLE, DIABETIC 31 GAUGE* Use one needle per dose. once* NAPROXEN 500 MG TABLET Take 1 tablet by mouth twice * BLOOD SUGAR DIAGNOSTIC STRIPS Use as instructed LINZESS 145 MCG CAPSULE take 1 capsule by mouth once * SYRINGE WITH NEEDLE, SAFETY 3* 1 mL once each week. ASPIRIN 81 MG TABLET,DELAYED * Take 1 tablet by mouth once d* Problem List As Of Date 12/07/2017 Noted Resolved Anxiety and depression [F41.9, F32.9] INVALID FOR* More... Hyperlipidemia [E78.5] INVALID FOR* More... Hypertension [I10] INVALID FOR* More... Fibromyalgia syndrome [M79.7] INVALID FOR* More... Tobacco abuse [Z72.0] INVALID FOR* More... 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 Proteinuria [R80.9] INVALID FOR* Tendinitis of thumb [M77.8] INVALID FOR* More... Raynaud's syndrome [I73.00] INVALID FOR* More... Irritable bowel syndrome with diarrhea [K58.0] INVALID FOR* Restless leg syndrome [G25.81] INVALID FOR* Encounter Status:Closed by GINA STANLEY on 12/07/17 PROGRESS Observed: 12/07/2017 Status: COMPLETED Source: [place] 1:57 PM [facility] REPOSITORY O ID: [id number] Author: Gina (Raoul) Maggie Service: (none) Author Type: Nurse Practitioner Type: Progress Notes Filed: 12/07/2017 4:37 PM Note Text: 12/07/2017 Patient presents with: Arthritis: flare up and neck and TATUM since tuesday SUBJECTIVE: This is a 47 year old that is here today for generalized chronic pain flare up. She states that she has been dealing with this for 3 years now. She is frustrated without a diagnosis since all of the blood work recently came back normal. She states that everything hurts she cannot even touch her skin without hurting. She has been taking 1000mg of naproxen daily instead of 500 bid. She has to sleep with a electric blanket to help with her joints. PAST MEDICAL HISTORY Diagnosis Date - De Quervain's tenosynovitis, bilateral - Diabetes (HCC) - Hypercholesterolemia - Raynaud's disease ALLERGIES Penicillin G; Requip [Ropinirole] MEDICATIONS Current Outpatient Prescriptions: FREESTYLE LANCETS 28 gauge [facility] [place] CHECK BLOOD GLUCOSE TWO TIMES DAILY lidocaine (ANECREAM5) crea Apply 1 application to affected area as needed. Prior to using Trulicity weekly. Allow cream to dry completely prior to injection. metFORMIN (GLUCOPHAGE) 1,000 mg tablet Take 1 tablet by mouth twice daily with meals. dulaglutide (TRULICITY) 1.5 mg/ 0.5 ml subcutaneous pen injector Inject 1.5 mg subcutaneously once each week. amLODIPine (NORVASC) 5 mg tablet TAKE 1 TABLET BY MOUTH ONCE DAILY venlafaxine ER (EFFEXOR XR) 150 mg 24 hr capsule TAKE 1 CAPSULE BY MOUTH ONCE DAILY fenofibrate nanocrystallized (TRICOR) 145 mg tablet TAKE 1 TABLET BY MOUTH ONCE DAILY losartan (COZAAR) 100 mg tablet TAKE ONE-HALF TABLET BY MOUTH ONCE DAILY atorvastatin (LIPITOR) 20 mg tablet TAKE 1 TABLET BY MOUTH ONCE DAILY atenolol (TENORMIN) 50 mg tablet TAKE 1 TABLET BY MOUTH ONCE DAILY omeprazole (PRILOSEC) 20 mg capsule TAKE 1 CAPSULE BY MOUTH DAILY BEFORE BREAKFAST montelukast (SINGULAIR) 10 mg tablet TAKE 1 TABLET BY MOUTH DAILY AT BEDTIME insulin degludec (TRESIBA FLEXTOUCH U-100) 100 unit/mL (3 mL) injection Inject 60 Units subcutaneously once daily. gabapentin (NEURONTIN) 100 mg capsule Take 1 capsule by mouth three times daily. insulin needles, DISPOSABLE, (PEN NEEDLE) 31 gauge x 5/16 ndle Use one needle per dose. once per day. naproxen (NAPROSYN) 500 mg tablet Take 1 tablet by mouth twice daily as needed (for pain/inflammation). Take with food. blood sugar diagnostic ([employer] ULTRA TEST) test strip Use as instructed LINZESS 145 mcg cap take 1 capsule by mouth once daily Syringe with Needle, Safety (3CC SAFETY SYRINGE 25GX5/8) 3 mL 25 x 5/8 syrg 1 mL once each week. aspirin, enteric coated (ADULT LOW DOSE ASPIRIN) 81 mg EC tablet Take 1 tablet by mouth once daily. No current facility-administered medications for this visit. Medications and allergies reviewed by this provider. SOCIAL HISTORY Social History Marital status: Single Spouse name: Years of education: Number of children: Occupational History Occupation Employer Comment disabled Social History Main Topics Smoking status: Current Every Day Smoker Packs/day: 0.50 Years: 21.00 Types: Cigarettes Smokeless tobacco: Never Used Alcohol use: No Drug use: No Sexual activity: Yes Partners with: Male REVIEW OF SYSTEMS see HPI OBJECTIVE: BP 122/81 Pulse 82 Temp 36.7 ?C (98.1 ?F) Resp 20 Wt 85.3 kg (188 lb) SpO2 98% BMI 31.28 kg/m? . Vital signs reviewed by this provider. PHYSICAL EXAMINATION: General appearance: Well appearing, alert, in no acute distress, well-hydrated, well nourished. Skin: Skin color, texture, turgor normal, no suspicious rashes or lesions Back: tender to touch in all locations, full ROM but complains of pain Lungs: Lungs clear to auscultation. No wheezing, rhonchi, rales Heart: RRR without murmur, gallop, or rubs. No ectopy Musculoskeletal: all joints and every location touched she reports pain, unwilling to test strength due to pain Peripheral pulses: Capillary refill <2secs, strong peripheral pulses Neuro: Gait normal. Sensation grossly intact. ASSESSMENT/PLAN: 1. Chronic pain syndrome - ICD9: 338.4, ICD10: G89.4 - reports of pain are not consistent with how she is acting at rest and walking. - encouraged naproxen 500 BID and adding tylenol arthritis as the package recommends, no more - encouraged healthy diet, exercise, and weight loss - CONSULT TO PAIN MGT ANESTHESIA - CONSULT TO PHYSICAL THERAPY - follow up as planned with PCP Gina Stanley APRN.RELIEF MATE PROGRESS Observed: 11/14/2017 Status: COMPLETED Source: [place] 1:00 PM [facility] REPOSITORY O ID: [id number] Author: Suman Cabrera (Pharmacist) Service: (none) Author Type: Pharmacist Type: Progress Notes Filed: 11/15/2017 11:45 AM Note Text: Patient consents to pharmacy collaborative practice agreement. REASON FOR CONSULT: DM? GOALS: A1c <?8% CONSULTING PROVIDER: Cindy Molina CNP?? Date of Consult: 04/2017 Jarod Looney is a 47 year old female was last seen in [facility] by PCP, Dr. MELYSSA MOBLEY MD on 09/09/17. Subjective: Patient is presenting today with mother (Ying Phelan) today. Presenting for a f/u pharmacotherapy management appointment for diabetes. At last PharmD visit on 09/26, patient was continued on same diabetes regimen. Patient also called and requested using topical lidocaine prior to dulaglutide injections. INTERIM HISTORY: Sugars 140-160 mg/dL; does not check consistently Checks once a day - times vary Eating habits not good right now - summer is very busy for them, weekends are particularly hard Having pain with dulaglutide injections - tried lidocaine; recently tried icing her bottom to numb prior to injection --> it worked! Has noticed improvements in BG control since starting dulaglutide Past DM medications: Liraglutide switched to dulaglutide on 08/24/17 - BGs were not at goal on max dose of therapy Current DM Medications: Insulin degludec 60 units once daily Metformin 1,000mg BID Dulaglutide 1.5mg once weekly on Sundays Current HTN Medications: Amlodipine 5mg once daily Atenolol 50mg once daily Losartan 50mg once daily (take 0.5 tablet of 100mg) Preventative Medications: ? On MANDY/ARB: Yes ? On Statin: Yes ? On ASA: Yes ROS: ? Patient denies symptoms of hypoglycemia (sweating, anxiety, palpitations, hunger, and tremor) ? Patient denies symptoms of hyperglycemia (polyuria, polydipsia, polyphagia) ? Patient denies potential medication adverse effects DIET/EXERCISE/SOCIAL Hx: ? Eats healthy throughout the week; weekends are difficult with schedule; tries combining carbs and protein ? No changes with diet from previous visit ? Exercise: moves around all the time - walks a lot with daily activities ? Tobacco: cigarettes 1/2 ppd - not interested in quitting at this time ? Alcohol: denies ? Illicits: denies MEDICATIONS: ? Pill bottles are not present. ? Adherence: denies missed doses. ? Pharmacy: [facility] (mail order) ? Rx coverage: [facility] ? Affordability: denies issue ? Diabetes supplies: [employer] ? Organization System: pill box ACTIVE PROBLEM LIST Anxiety and Depression Hyperlipidemia Hypertension Fibromyalgia Syndrome Tobacco Abuse Type 2 Diabetes Mellitus With Diabetic Nephropathy (Hcc) Proteinuria Tendinitis of Thumb Raynaud's Syndrome Irritable Bowel Syndrome With Diarrhea Restless Leg Syndrome PAST MEDICAL HISTORY Diagnosis Date - De Quervain's tenosynovitis, bilateral - Diabetes (HCC) - Hypercholesterolemia - Raynaud's disease ALLERGIES Allergen Reactions - Penicillin G Swelling - Requip [Ropinirole] Other: See Comments seizures Medication List Medication Directions Comments Action/Plan amLODIPine (NORVASC) 5 mg tablet TAKE 1 TABLET BY MOUTH ONCE DAILY taking aspirin, enteric coated (ADULT LOW DOSE ASPIRIN) 81 mg EC tablet Take 1 tablet by mouth once daily. taking atenolol (TENORMIN) 50 mg tablet TAKE 1 TABLET BY MOUTH ONCE DAILY taking atorvastatin (LIPITOR) 20 mg tablet TAKE 1 TABLET BY MOUTH ONCE DAILY taking blood sugar diagnostic (ONETOUCH ULTRA TEST) test strip Use as instructed dulaglutide (TRULICITY) 1.5 mg/ 0.5 ml subcutaneous pen injector Inject 1.5 mg subcutaneously once each week. taking fenofibrate nanocrystallized (TRICOR) 145 mg tablet TAKE 1 TABLET BY MOUTH ONCE DAILY taking gabapentin (NEURONTIN) 100 mg capsule Take 1 capsule by mouth three times daily. Taking (usually once daily) insulin degludec (TRESIBA FLEXTOUCH U-100) 100 unit/mL (3 mL) injection Inject 60 Units subcutaneously once daily. taking insulin needles, DISPOSABLE, (PEN NEEDLE) 31 gauge x 5/16 ndle Use one needle per dose. once per day. lancets (FREESTYLE LANCETS) 28 gauge [facility] [place] Test blood sugar(s) 2 daily. Dx: E11.21. Insulin: No lidocaine (ANECREAM5) crea Apply 1 application to affected area as needed. Prior to using Trulicity weekly. Allow cream to dry completely prior to injection. Not using much - still has some in stock LINZESS 145 mcg cap take 1 capsule by mouth once daily taking losartan (COZAAR) 100 mg tablet TAKE ONE-HALF TABLET BY MOUTH ONCE DAILY taking metFORMIN (GLUCOPHAGE) 1,000 mg tablet Take 1 tablet by mouth twice daily with meals. taking montelukast (SINGULAIR) 10 mg tablet TAKE 1 TABLET BY MOUTH DAILY AT BEDTIME taking naproxen (NAPROSYN) 500 mg tablet Take 1 tablet by mouth twice daily as needed (for pain/inflammation). Take with food. Taking PRN (takes 2-3x/week) omeprazole (PRILOSEC) 20 mg capsule TAKE 1 CAPSULE BY MOUTH DAILY BEFORE BREAKFAST taking Syringe with Needle, Safety (3CC SAFETY SYRINGE 25GX5/8) 3 mL 25 x 5/8 syrg 1 mL once each week. venlafaxine ER (EFFEXOR XR) 150 mg 24 hr capsule TAKE 1 CAPSULE BY MOUTH ONCE DAILY taking Rx meds not listed in EPIC: none OTCs: none Herbals: none GLYCEMIC CONTROL: ? Glucometer present at visit: No ? SMBG?s: reports 140s-160s various times of day ? Hypoglycemia: denies ? How corrected: n/a Objective: VITALS: BP 123/76 mmHg; HR 76 bpm Last 3 Encounter BP Readings: Date: BP: 09/09/2017 110/60 06/02/2017 138/88 05/25/2017 128/88 Wt: 85.3 kg (188 lb 1.3 oz) BMI: 31.30 kg/(m2) LABS Lab Results Component Value Date HBA1C 8.7 08/13/2017 HBA1C 9.2 05/21/2017 HBA1C 7.7 09/25/2016 CMP: Glucose 225 08/13/2017 BUN 11 08/13/2017 Creatinine 0.55 08/13/2017 Sodium 137 08/13/2017 Potassium 4.3 08/13/2017 Chloride 99 08/13/2017 CO2 24 08/13/2017 Protein, Total 6.8 05/21/2017 Albumin 4.3 05/21/2017 Calcium 9.6 08/13/2017 Alkaline Phosphatase 84 05/21/2017 Bilirubin, Total 0.2 05/21/2017 AST 14 05/21/2017 ALT 22 05/21/2017 eGFR 113 mL/min/1.73m2 CrCl 103-153 mL/min (depending on IBW vs ActBW) Last Lipid Panel Lab Results Component Value Date CHOL 171 05/21/2017 Lab Results Component Value Date HDL 29 05/21/2017 Lab Results Component Value Date LDL 76. 05/21/2017 Lab Results Component Value Date TG 497 05/21/2017 10-year ASCVD risk: 14% Albumin/Creat Ratio (mg/g) Date Value 09/10/2017 225 (H) PHARMACOTHERAPY ASSESSMENT/PLAN: 1. Type 2 diabetes mellitus with diabetic nephropathy, with long-term current use of insulin ([facility]) - ICD9: 250.40, 583.81, V58.67, ICD10: E11.21, Z79.4 (primary diagnosis); A1c goal < 8% per consult (could consider tighter control of < 7% d/t age); uncontrolled based on most recent A1c (8.7%); will not make adjustments to insulin today since patient is due for A1c - expecting A1c to be lower based on reported SMBG readings of 140-160; patient originally had pain with dulaglutide injections but is tolerating it well now by numbing injection site with ice prior to use; avoiding meal-time insulin at this time d/t patient preference, but may have to re-address at future visits; overall tolerating regimen well; renal fxn and LFTs WNL and appropriate for continue therapy - CONTINUE insulin degludec 60 units daily, metformin 1000mg daily, and dulaglutide 1.5mg weekly on Sundays - Encouraged patient to check FBG daily and bring glucometer with her to next appt - A1c today 2. Essential hypertension - ICD9: 401.9, ICD10: I10; BP goal < 140/90; controlled; tolerating therapy well without concern for orthostasis or ADEs; renal fxn, HR, and K+ WNL and appropriate for continued therapy. T/c discontinuing atenolol in future and optimizing other antihypertensives as patient has no specific indication for HR-lowering therapy and beta-blockers can contribute to increased triglyceride levels - CONTINUE losartan 50mg daily, amlodipine 5mg daily, atenolol 50mg daily 3. Hyperlipidemia, unspecified hyperlipidemia type - ICD9: 272.4, ICD10: E78.5; elevated ASCVD mostly d/t tobacco use; patient taking a moderate-intensity statin although she is indicated for high-intensity given her hx DM and ASCVD risk > 7.5%; TRGs still elevated despite fenofibrate; taking low-dose aspirin for elevated ASCVD risk even though USPSTF recommendations suggest aspirin-use for primary ASCVD prophylaxis at ages 50-59 yo if risk > 10%; patient tolerating meds well; LFTs and renal fxn WNL and appropriate for continued therapy. Will continue current regimen at this time, monitor lipids. T/c increasing atorvastatin dose to high intensity at next appt; in future, also t/c reevaluating the role of fenofibrate in therapy since it is not associated with mortality benefit and contributes to polypharmacy. In future, will encourage patient to continue making lifestyle modifications to help reduce TRG levels (minimize carbs, increase physical activity, minimize EtOH - although patient denies use) - CONTINUE atorvastatin 20mg daily, aspirin 81mg daily, fenofibrate 145mg daily 4. Tobacco abuse - ICD9: 305.1, ICD10: Z72.0; pre-contemplation stage of change; unwilling to commit to a quit date at this time - Encouraged patient to consider quitting smoking - Educated on the Hand of Diabetes (smoking cessation > BP control > metformin > statin > glycemic control) Health maintenance issues addressed: DILATED RETINAL EXAM due on 07/03/2016 - will call on to see if available on Tuesday Patient is scheduled to see PCP on 01/13/18. Patient to return to clinic for PharmD f/u on 12/22/17. Patient verbalized understanding of instructions. Suman Cabrera PharmD, [facility] Primary Care Clinical Pharmacist [facility] PROGRESS Observed: 11/14/2017 Status: COMPLETED Source: [place] 1:00 PM [facility] REPOSITORY HNO ID: [id number] Author: Emiliano Welch (Pharmacist) Service: (none) Author Type: Pharmacist Type: Progress Notes Filed: 11/15/2017 11:45 AM Note Text: Patient interviewed and examined with PharmD. Johnson elements of history confirmed during office visit. The progress note reflects my input and comments. ? Emiliano Welch, Amandeep, [facility] Primary Care Clinical Pharmacist [facility] CNOV Observed: 11/14/2017 Status: COMPLETED Source: [place] 1:00 PM [facility] REPOSITORY Office Visit (PHMEWO) JAROD LOONEY ([id number]) 1970 F Date Time Provider Department 11/14/17 1:00 PM YURI (PHARMACIST), EMILIANO BURGOS During your visit today, we recorded the following information about you: Pulse Blood pressure 76/minute 123/76 SUMAN CABRERA, PHARMACIST 11/15/2017 9:36 AM Signed Patient consents to pharmacy collaborative practice agreement. REASON FOR CONSULT: DM? GOALS: A1c <?8% CONSULTING PROVIDER: Cindy Molina CNP?? Date of Consult: 04/2017 Jarod Looney is a 47 year old female was last seen in [facility] by PCP, Dr. MELYSSA MOBLEY MD on 09/09/17. Subjective: Patient is presenting today with mother (Ying Phelan) today. Presenting for a f/u pharmacotherapy management appointment for diabetes. At last PharmD visit on 09/26, patient was continued on same diabetes regimen. Patient also called and requested using topical lidocaine prior to dulaglutide injections. INTERIM HISTORY: Sugars 140-160 mg/dL; does not check consistently Checks once a day - times vary Eating habits not good right now - summer is very busy for them, weekends are particularly hard Having pain with dulaglutide injections - tried lidocaine; recently tried icing her bottom to numb prior to injection --> it worked! Has noticed improvements in BG control since starting dulaglutide Past DM medications: Liraglutide switched to dulaglutide on 08/24/17 - BGs were not at goal on max dose of therapy Current DM Medications: Insulin degludec 60 units once daily Metformin 1,000mg BID Dulaglutide 1.5mg once weekly on Sundays Current HTN Medications: Amlodipine 5mg once daily Atenolol 50mg once daily Losartan 50mg once daily (take 0.5 tablet of 100mg) Preventative Medications: ? On MANDY/ARB: Yes ? On Statin: Yes ? On ASA: Yes ROS: ? Patient denies symptoms of hypoglycemia (sweating, anxiety, palpitations, hunger, and tremor) ? Patient denies symptoms of hyperglycemia (polyuria, polydipsia, polyphagia) ? Patient denies potential medication adverse effects DIET/EXERCISE/SOCIAL Hx: ? Eats healthy throughout the week; weekends are difficult with schedule; tries combining carbs and protein ? No changes with diet from previous visit ? Exercise: moves around all the time - walks a lot with daily activities ? Tobacco: cigarettes 1/2 ppd - not interested in quitting at this time ? Alcohol: denies ? Illicits: denies MEDICATIONS: ? Pill bottles are not present. ? Adherence: denies missed doses. ? [facility] ([facility]) ? Rx coverage: [facility] ? Affordability: denies issue ? Diabetes supplies: One Touch ? Organization System: pill box ACTIVE PROBLEM LIST Anxiety and Depression Hyperlipidemia Hypertension Fibromyalgia Syndrome Tobacco Abuse Type 2 Diabetes Mellitus With Diabetic Nephropathy (Hcc) Proteinuria Tendinitis of Thumb Raynaud's Syndrome Irritable Bowel Syndrome With Diarrhea Restless Leg Syndrome PAST MEDICAL HISTORY Diagnosis Date - De Quervain's tenosynovitis, bilateral - Diabetes (HCC) - Hypercholesterolemia - Raynaud's disease ALLERGIES Allergen Reactions - Penicillin G Swelling - Requip [Ropinirole] Other: See Comments seizures Medication List Medication Directions Comments Action/Plan amLODIPine (NORVASC) 5 mg tablet TAKE 1 TABLET BY MOUTH ONCE DAILY taking aspirin, enteric coated (ADULT LOW DOSE ASPIRIN) 81 mg EC tablet Take 1 tablet by mouth once daily. taking atenolol (TENORMIN) 50 mg tablet TAKE 1 TABLET BY MOUTH ONCE DAILY taking atorvastatin (LIPITOR) 20 mg tablet TAKE 1 TABLET BY MOUTH ONCE DAILY taking blood sugar diagnostic (HiphuntersTOUCH ULTRA TEST) test strip Use as instructed dulaglutide (TRULICITY) 1.5 mg/ 0.5 ml subcutaneous pen injector Inject 1.5 mg subcutaneously once each week. taking fenofibrate nanocrystallized (TRICOR) 145 mg tablet TAKE 1 TABLET BY MOUTH ONCE DAILY taking gabapentin (NEURONTIN) 100 mg capsule Take 1 capsule by mouth three times daily. Taking (usually once daily) insulin degludec (TRESIBA FLEXTOUCH U-100) 100 unit/mL (3 mL) injection Inject 60 Units subcutaneously once daily. taking insulin needles, DISPOSABLE, (PEN NEEDLE) 31 gauge x 5/16 ndle Use one needle per dose. once per day. lancets (FREESTYLE LANCETS) [facility] Test blood sugar(s) 2 daily. Dx: E11.21. Insulin: No lidocaine (ANECREAM5) crea Apply 1 application to affected area as needed. Prior to using Trulicity weekly. Allow cream to dry completely prior to injection. Not using much - still has some in stock LINZESS 145 mcg cap take 1 capsule by mouth once daily taking losartan (COZAAR) 100 mg tablet TAKE ONE-HALF TABLET BY MOUTH ONCE DAILY taking metFORMIN (GLUCOPHAGE) 1,000 mg tablet Take 1 tablet by mouth twice daily with meals. taking montelukast (SINGULAIR) 10 mg tablet TAKE 1 TABLET BY MOUTH DAILY AT BEDTIME taking naproxen (NAPROSYN) 500 mg tablet Take 1 tablet by mouth twice daily as needed (for pain/inflammation). Take with food. Taking PRN (takes 2-3x/week) omeprazole (PRILOSEC) 20 mg capsule TAKE 1 CAPSULE BY MOUTH DAILY BEFORE BREAKFAST taking Syringe with Needle, Safety (3CC SAFETY SYRINGE 25GX5/8) 3 mL 25 x 5/8 syrg 1 mL once each week. venlafaxine ER (EFFEXOR XR) 150 mg 24 hr capsule TAKE 1 CAPSULE BY MOUTH ONCE DAILY taking Rx meds not listed in EPIC: none OTCs: none Herbals: none GLYCEMIC CONTROL: ? Glucometer present at visit: No ? SMBG?s: reports 140s-160s various times of day ? Hypoglycemia: denies ? How corrected: n/a Objective: VITALS: BP 123/76 mmHg; HR 76 bpm Last 3 Encounter BP Readings: Date: BP: 09/09/2017 110/60 06/02/2017 138/88 05/25/2017 128/88 Wt: 85.3 kg (188 lb 1.3 oz) BMI: 31.30 kg/(m2) LABS Lab Results Component Value Date HBA1C 8.7 08/13/2017 HBA1C 9.2 05/21/2017 HBA1C 7.7 09/25/2016 CMP: Glucose 225 08/13/2017 BUN 11 08/13/2017 Creatinine 0.55 08/13/2017 Sodium 137 08/13/2017 Potassium 4.3 08/13/2017 Chloride 99 08/13/2017 CO2 24 08/13/2017 Protein, Total 6.8 05/21/2017 Albumin 4.3 05/21/2017 Calcium 9.6 08/13/2017 Alkaline Phosphatase 84 05/21/2017 Bilirubin, Total 0.2 05/21/2017 AST 14 05/21/2017 ALT 22 05/21/2017 eGFR 113 mL/min/1.73m2 CrCl 103-153 mL/min (depending on IBW vs ActBW) Last Lipid Panel Lab Results Component Value Date CHOL 171 05/21/2017 Lab Results Component Value Date HDL 29 05/21/2017 Lab Results Component Value Date LDL 76. 05/21/2017 Lab Results Component Value Date TG 497 05/21/2017 10-year ASCVD risk: 14% Albumin/Creat Ratio (mg/g) Date Value 09/10/2017 225 (H) PHARMACOTHERAPY ASSESSMENT/PLAN: 1. Type 2 diabetes mellitus with diabetic nephropathy, with long-term current use of insulin (HCC) - ICD9: 250.40, 583.81, V58.67, ICD10: E11.21, Z79.4 (primary diagnosis); A1c goal < 8% per consult (could consider tighter control of < 7% d/t age); uncontrolled based on most recent A1c (8.7%); will not make adjustments to insulin today since patient is due for A1c - expecting A1c to be lower based on reported SMBG readings of 140-160; patient originally had pain with dulaglutide injections but is tolerating it well now by numbing injection site with ice prior to use; avoiding meal-time insulin at this time d/t patient preference, but may have to re-address at future visits; overall tolerating regimen well; renal fxn and LFTs WNL and appropriate for continue therapy - CONTINUE insulin degludec 60 units daily, metformin 1000mg daily, and dulaglutide 1.5mg weekly on Sundays - Encouraged patient to check FBG daily and bring glucometer with her to next appt - A1c today 2. Essential hypertension - ICD9: 401.9, ICD10: I10; BP goal < 140/90; controlled; tolerating therapy well without concern for orthostasis or ADEs; renal fxn, HR, and K+ WNL and appropriate for continued therapy. T/c discontinuing atenolol in future and optimizing other antihypertensives as patient has no specific indication for HR-lowering therapy and beta-blockers can contribute to increased triglyceride levels - CONTINUE losartan 50mg daily, amlodipine 5mg daily, atenolol 50mg daily 3. Hyperlipidemia, unspecified hyperlipidemia type - ICD9: 272.4, ICD10: E78.5; elevated ASCVD mostly d/t tobacco use; patient taking a moderate-intensity statin although she is indicated for high-intensity given her hx DM and ASCVD risk > 7.5%; TRGs still elevated despite fenofibrate; taking low-dose aspirin for elevated ASCVD risk even though USPSTF recommendations suggest aspirin-use for primary ASCVD prophylaxis at ages 50-59 yo if risk > 10%; patient tolerating meds well; LFTs and renal fxn WNL and appropriate for continued therapy. Will continue current regimen at this time, monitor lipids. T/c increasing atorvastatin dose to high intensity at next appt; in future, also t/c reevaluating the role of fenofibrate in therapy since it is not associated with mortality benefit and contributes to polypharmacy. In future, will encourage patient to continue making lifestyle modifications to help reduce TRG levels (minimize carbs, increase physical activity, minimize EtOH - although patient denies use) - CONTINUE atorvastatin 20mg daily, aspirin 81mg daily, fenofibrate 145mg daily 4. Tobacco abuse - ICD9: 305.1, ICD10: Z72.0; pre-contemplation stage of change; unwilling to commit to a quit date at this time - Encouraged patient to consider quitting smoking - Educated on the Hand of Diabetes (smoking cessation > BP control > metformin > statin > glycemic control) Health maintenance issues addressed: DILATED RETINAL EXAM due on 07/03/2016 - will call on to see if available on Tuesday Patient is scheduled to see PCP on 01/13/18. Patient to return to clinic for PharmD f/u on 12/22/17. Patient verbalized understanding of instructions. Suman Cabrera PharmD, [facility] Primary Care Clinical Pharmacist [facility] EMILIANO WELCH PHARMACIST 11/15/2017 11:45 AM Signed Patient interviewed and examined with PharmD. Johnson elements of history confirmed during office visit. The progress note reflects my input and comments. ? Emiliano Welch, MaryD, [facility] Primary Care Clinical Pharmacist [facility] Allergies As of Date: 11/14/2017 Noted Allergy Reaction PENICILLIN G 04/18/2013 7 - Swelling REQUIP (ROPINIROLE) 04/18/2013 14 - Other: See Comments Comments: seizures Date Reviewed: 06/02/2017 Reviewed by: Isabella Jenkins LPN - Fully Assessed Reason for Visit: Allied Health Visit [5] Cmt: DM f/u Reason For Visit History Recorded Primary Visit Diagnosis:Type 2 diabetes mellitus with diabetic nephropathy, with long-term current use of insulin (HCC) [E11.21, Z79.4] Other Visit Diagnoses:Essential hypertension [I10] Hyperlipidemia, unspecified hyperlipidemia type [E78.5] Tobacco abuse [Z72.0] Prescriptions as of 11/14/2017 Sig: LIDOCAINE 5 % TOPICAL CREAM Apply 1 application to affect* METFORMIN 1,000 MG TABLET Take 1 tablet by mouth twice * DULAGLUTIDE 1.5 MG/0.5 ML SUB* Inject 1.5 mg subcutaneously * AMLODIPINE 5 MG TABLET TAKE 1 TABLET BY MOUTH ONCE D* VENLAFAXINE ER 150 MG CAPSULE* TAKE 1 CAPSULE BY MOUTH ONCE* FENOFIBRATE NANOCRYSTALLIZED * TAKE 1 TABLET BY MOUTH ONCE D* LOSARTAN 100 MG TABLET TAKE ONE-HALF TABLET BY MOUT* ATORVASTATIN 20 MG TABLET TAKE 1 TABLET BY MOUTH ONCE D* ATENOLOL 50 MG TABLET TAKE 1 TABLET BY MOUTH ONCE D* OMEPRAZOLE 20 MG CAPSULE,SAYRA* TAKE 1 CAPSULE BY MOUTH HUGO* MONTELUKAST 10 MG TABLET TAKE 1 TABLET BY MOUTH DAILY* INSULIN DEGLUDEC (U-100) 100 * Inject 60 Units subcutaneousl* GABAPENTIN 100 MG CAPSULE Take 1 capsule by mouth three* LANCETS 28 GAUGE Test blood sugar(s) 2 daily. * PEN NEEDLE, DIABETIC 31 GAUGE* Use one needle per dose. once* NAPROXEN 500 MG TABLET Take 1 tablet by mouth twice * BLOOD SUGAR DIAGNOSTIC STRIPS Use as instructed LINZESS 145 MCG CAPSULE take 1 capsule by mouth once * SYRINGE WITH NEEDLE, SAFETY 3* 1 mL once each week. ASPIRIN 81 MG TABLET,DELAYED * Take 1 tablet by mouth once d* Problem List As Of Date 11/14/2017 Noted Resolved Anxiety and depression [F41.9, F32.9] INVALID FOR* More... Hyperlipidemia [E78.5] INVALID FOR* More... Hypertension [I10] INVALID FOR* More... Fibromyalgia syndrome [M79.7] INVALID FOR* More... Tobacco abuse [Z72.0] INVALID FOR* More... 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 Proteinuria [R80.9] INVALID FOR* Tendinitis of thumb [M77.8] INVALID FOR* More... Raynaud's syndrome [I73.00] INVALID FOR* More... Irritable bowel syndrome with diarrhea [K58.0] INVALID FOR* Restless leg syndrome [G25.81] INVALID FOR* Encounter Status:Closed by YURI (PHARMACIST)EMILIANO on 11/15/17 PROGRESS Observed: 10/06/2017 Status: COMPLETED Source: [place] 12:53 PM [facility] REPOSITORY HNO ID: [id number] Author: Mary Martinez Long Term Care Administrator Service: (none) Author Type: (none) Type: Progress Notes Filed: 10/06/2017 12:53 PM Note Text: Letters mailed to patient. PROGRESS Observed: 10/06/2017 Status: COMPLETED Source: [place] 12:52 PM [facility] REPOSITORY HNO ID: [id number] Author: aMry Martinez Long Term Care Administrator Service: (none) Author Type: (none) Type: Progress Notes Filed: 10/06/2017 12:53 PM Note Text: Upcoming appt. 01/13. Due for labs prior (will send appt. Reminder and add on there pt is due for labs). Due for DM retinal exam.I will send a DM retinal reminder letter w/attached release form. CNPTOUTRADONIS Observed: 10/06/2017 Status: COMPLETED Source: [place] 12:00 AM [facility] REPOSITORY Patient Outreach (INTMWS) JAROD LOONEY ([id number]) 1970 F Date Time Provider Department 10/06/17 MARY MARTINEZ ([facility]) INTMWS During your visit today, we recorded the following information about you: Mary Martinez Cma 10/06/2017 12:53 PM Signed Upcoming appt. 01/13. Due for labs prior (will send appt. Reminder and add on there pt is due for labs). Due for DM retinal exam.I will send a DM retinal reminder letter w/attached release form. Mary Martniez Cma 10/06/2017 12:53 PM Signed Letters mailed to patient. Allergies As of Date: 10/06/2017 Noted Allergy Reaction PENICILLIN G 04/18/2013 7 - Swelling REQUIP (ROPINIROLE) 04/18/2013 14 - Other: See Comments Comments: seizures Date Reviewed: 06/02/2017 Reviewed by: Isabella Jenkins LPN - Fully Assessed Reason for Visit: PHMA/Care Gap Outreach [[id number]] Prescriptions as of 10/06/2017 Sig: METFORMIN 1,000 MG TABLET Take 1 tablet by mouth twice * DULAGLUTIDE 1.5 MG/0.5 ML SUB* Inject 1.5 mg subcutaneously * AMLODIPINE 5 MG TABLET TAKE 1 TABLET BY MOUTH ONCE D* VENLAFAXINE ER 150 MG CAPSULE* TAKE 1 CAPSULE BY MOUTH ONCE* FENOFIBRATE NANOCRYSTALLIZED * TAKE 1 TABLET BY MOUTH ONCE D* LOSARTAN 100 MG TABLET TAKE ONE-HALF TABLET BY MOUT* ATORVASTATIN 20 MG TABLET TAKE 1 TABLET BY MOUTH ONCE D* ATENOLOL 50 MG TABLET TAKE 1 TABLET BY MOUTH ONCE D* OMEPRAZOLE 20 MG CAPSULE,SAYRA* TAKE 1 CAPSULE BY MOUTH HUGO* MONTELUKAST 10 MG TABLET TAKE 1 TABLET BY MOUTH DAILY* INSULIN DEGLUDEC (U-100) 100 * Inject 60 Units subcutaneousl* GABAPENTIN 100 MG CAPSULE Take 1 capsule by mouth three* LANCETS 28 GAUGE Test blood sugar(s) 2 daily. * PEN NEEDLE, DIABETIC 31 GAUGE* Use one needle per dose. once* NAPROXEN 500 MG TABLET Take 1 tablet by mouth twice * BLOOD SUGAR DIAGNOSTIC STRIPS Use as instructed LINZESS 145 MCG CAPSULE take 1 capsule by mouth once * SYRINGE WITH NEEDLE, SAFETY 3* 1 mL once each week. ASPIRIN 81 MG TABLET,DELAYED * Take 1 tablet by mouth once d* Problem List As Of Date 10/06/2017 Noted Resolved Anxiety and depression [F41.9, F32.9] INVALID FOR* More... Hyperlipidemia [E78.5] INVALID FOR* More... Hypertension [I10] INVALID FOR* More... Fibromyalgia syndrome [M79.7] INVALID FOR* More... Tobacco abuse [Z72.0] INVALID FOR* More... 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 Proteinuria [R80.9] INVALID FOR* Tendinitis of thumb [M77.8] INVALID FOR* More... Raynaud's syndrome [I73.00] INVALID FOR* More... Irritable bowel syndrome with diarrhea [K58.0] INVALID FOR* Restless leg syndrome [G25.81] INVALID FOR* Letter Text [place] [facility] MELYSSA MOBLEY MD [address], [place] [address] Dear Jarod Looney Your health care is very important to us. Our records indicate that you may be due for a diabetic eye exam. If you have had a diabetic eye exam within the last year, please have your records sent to us so that we may update your medical records. There is a medical records of release of information included in this letter. Please take the release to your eye doctor for future appointments to have your records forwarded to us. Important facts about diabetic eye exams Diabetic retinal exams should be done yearly for all patients with a diagnosis of diabetes. Risks such as diabetic retinopathy can be reduced with blood glucose control and early detection of potential problems. Diabetic retinopathy is damage to the small blood vessels in the retina that can lead to blindness Thank you, MELYSSA MOBLEY MD Letter [facility] [address] [id number] Office: [phone] Melyssa Mobley MD REQUEST FOR EYE EXAM FINDINGS April 16, 2016 Dear eye transitional care liaison, Thank you for coordinating eye care for our mutual patient, Jarod Looney (1970). Please fax this letter back to me with the most appropriate response selected below. Please allow the patient's signature to serve as permission to share your findings. Sincerely, Melyssa Mobley MD Patient Signature Date Date of eye exam: Findings Both Eyes Right Left No Retinopathy Detected Non Proliferative Retinopathy Mild Moderate Severe Proliferative Retinopathy Macular Edema Further testing and/or treatment indicated Comments: Patient is to return: Encounter Status:Closed by MARY MARTINEZ CMA on 10/06/17 PROGRESS Observed: 09/26/2017 Status: COMPLETED Source: [place] 2:30 PM [facility] RE[facility] O ID: [id number] Author: Emiliano Welch (Pharmacist) Service: (none) Author Type: Pharmacist Type: Progress Notes Filed: 09/27/2017 11:25 AM Note Text: Patient consents to pharmacy collaborative practice agreement. REASON FOR CONSULT: DM? GOALS: A1c <?8% CONSULTING PROVIDER: Cindy Molina CNP?? Date of Consult: 04/2017 Jarod Looney is a 46 year old female was last seen in [facility] by PCP, Dr. MELYSSA MOBLEY MD on 09/09/17. Patient is presenting today for f/u pharmacotherapy management appointment for DM. At last PharmD visit liraglutide was changed to dulaglutide, other therapies continued. INTERIM HISTORY: Reports doing well overall Appetite is decreased since switching to dulaglutide Tolerating it without issues Past DM medications: Liraglutide Current DM Medications: Insulin degludec 60 units once daily Metformin 1,000mg BID Dulaglutide 1.5mg once weekly on Current HTN Medications: Amlodipine 5mg once daily Atenolol 50mg once daily Losartan 100mg once daily (take 0.5 tablet daily) Preventative Medications: ? On MANDY/ARB:Yes ? On Statin: Yes ? On ASA: Yes ROS: ? Patient denies CP, SOB, TATUM, blurred vision, dizziness or lightheadedness ? Patient denies symptoms of hypoglycemia (sweating, anxiety, palpitations, hunger, and tremor) ? Patient denies symptoms of hyperglycemia (polyuria, polydipsia, polyphagia) ? Patient denies potential medication adverse effects DIET/EXERCISE/SOCIAL Hx: ? Reports less appetite, otherwise no changes ? Tobacco: 1/2 ppd - not interested in quitting at this time MEDICATIONS: ? Pill bottles are not?present. ? Adherence: denies?missed doses. ? [facility]? Rx coverage: [employer] ? Affordability: no issues ? Diabetes supplies: One Touch ? Organization System: none ACTIVE PROBLEM LIST Anxiety and Depression Hyperlipidemia Hypertension Fibromyalgia Syndrome Tobacco Abuse Type 2 Diabetes Mellitus With Diabetic Nephropathy (Hcc) Proteinuria Tendinitis of Thumb Raynaud's Syndrome Irritable Bowel Syndrome With Diarrhea Restless Leg Syndrome PAST MEDICAL HISTORY Diagnosis Date - De Quervain's tenosynovitis, bilateral - Diabetes (HCC) - Hypercholesterolemia - Raynaud's disease ALLERGIES Allergen Reactions - Penicillin G Swelling - Requip [Ropinirole] Other: See Comments seizures Current Outpatient Prescriptions: amLODIPine (NORVASC) 5 mg tablet TAKE 1 TABLET BY MOUTH ONCE DAILY venlafaxine ER (EFFEXOR XR) 150 mg 24 hr capsule TAKE 1 CAPSULE BY MOUTH ONCE DAILY fenofibrate nanocrystallized (TRICOR) 145 mg tablet TAKE 1 TABLET BY MOUTH ONCE DAILY losartan (COZAAR) 100 mg tablet TAKE ONE-HALF TABLET BY MOUTH ONCE DAILY atorvastatin (LIPITOR) 20 mg tablet TAKE 1 TABLET BY MOUTH ONCE DAILY atenolol (TENORMIN) 50 mg tablet TAKE 1 TABLET BY MOUTH ONCE DAILY omeprazole (PRILOSEC) 20 mg capsule TAKE 1 CAPSULE BY MOUTH DAILY BEFORE BREAKFAST montelukast (SINGULAIR) 10 mg tablet TAKE 1 TABLET BY MOUTH DAILY AT BEDTIME dulaglutide (TRULICITY) 1.5 mg/0.5 mL pnij Inject 1.5 mg subcutaneously once each week. insulin degludec (TRESIBA FLEXTOUCH U-100) 100 unit/mL (3 mL) injection Inject 60 Units subcutaneously once daily. gabapentin (NEURONTIN) 100 mg capsule Take 1 capsule by mouth three times daily. lancets (FREESTYLE LANCETS) 28 gauge [facility] [place] Test blood sugar(s) 2 daily. Dx: E11.21. Insulin: No insulin needles, DISPOSABLE, (PEN NEEDLE) 31 gauge x 5/16 ndle Use one needle per dose. once per day. metFORMIN (GLUCOPHAGE) 1,000 mg tablet take 1 tablet by mouth twice a day with meals naproxen (NAPROSYN) 500 mg tablet Take 1 tablet by mouth twice daily as needed (for pain/inflammation). Take with food. blood sugar diagnostic (ONETOUCH ULTRA TEST) test strip Use as instructed LINZESS 145 mcg cap take 1 capsule by mouth once daily Syringe with Needle, Safety (3CC SAFETY SYRINGE 25GX5/8) 3 mL 25 x 5/8 syrg 1 mL once each week. aspirin, enteric coated (ADULT LOW DOSE ASPIRIN) 81 mg EC tablet Take 1 tablet by mouth once daily. No current facility-administered medications for this visit. Rx meds not listed in EPIC: none OTCs: none Herbals: none GLYCEMIC CONTROL: ? Glucometer present at visit: No ? SMBG?s: ? Reports FBGs 130-140s ? PPBG not checking ? Hypoglycemia: denies Last 3 Encounter BP Readings: Date: BP: 09/09/2017 110/60 06/02/2017 138/88 05/25/2017 128/88 Wt: 85.3 kg (188 lb 1.3 oz) BMI: 31.30 kg/(m2) LABS Lab Results Component Value Date HBA1C 8.7 08/13/2017 HBA1C 9.2 05/21/2017 HBA1C 7.7 09/25/2016 CMP: Glucose 225 08/13/2017 BUN 11 08/13/2017 Creatinine 0.55 08/13/2017 Sodium 137 08/13/2017 Potassium 4.3 08/13/2017 Chloride 99 08/13/2017 CO2 24 08/13/2017 Protein, Total 6.8 05/21/2017 Albumin 4.3 05/21/2017 Calcium 9.6 08/13/2017 Alkaline Phosphatase 84 05/21/2017 Bilirubin, Total 0.2 05/21/2017 AST 14 05/21/2017 ALT 22 05/21/2017 Estimated Creatinine Clearance: > 100 mL/min (based on Cr of 0.55). Last Lipid Panel Lab Results Component Value Date CHOL 171 05/21/2017 Lab Results Component Value Date HDL 29 05/21/2017 Lab Results Component Value Date LDL 76 05/21/2017 Lab Results Component Value Date TG 497 05/21/2017 Albumin/Creat Ratio (mg/g) Date Value 09/10/2017 225 (H) PHARMACOTHERAPY ASSESSMENT/PLAN: 1. Type 2 diabetes mellitus with diabetic nephropathy, with long-term current use of insulin (HCC) - ICD9: 250.40, 583.81, V58.67, ICD10: E11.21, Z79.4 (primary diagnosis) A1c goal <?8%, patient is not?at goal but improving (8.7% on 08/13). FBGs are reported to be at goal. Patient compliant with and tolerating current regimen. Tolerating new dulaglutide therapy. Will continue regimen at this time. Renal fxn and LFTs WNL?and appropriate for continued therapy ? CONTINUE dulaglutide 1.5mg once weekly, insulin degludec 60 units once daily and metformin 1,000mg BID ? Instructed patient to continue checking FBGs and PPBGs daily ? A1c in October 2. Essential hypertension - ICD9: 401.9, ICD10: I10 BP goal < 140/90, pt is at goal on current therapy. Patient compliant with and tolerating current regimen. Will continue. ?Pulse, renal fxn and K+ WNL?and appropriate for continued therapy. ? CONTINUE losartan 100mg, amlodipine 5mg, and atenolol 50mg once daily ? 3. Hyperlipidemia, unspecified hyperlipidemia type - ICD9: 272.4, ICD10: E78.5 Pt is on moderate statin intensity (indicated for high?intensity d/t DM?and ASCVD risk score 17%). Patient compliant with and tolerating current regimen. Will continue at this time and monitor lipids. ?LFTs and renal fxn WNL?and appropriate for continued therapy ? CONTINUE atorvastatin 20mg once daily Health Maintenance issues addressed: DILATED RETINAL EXAM due on 07/03/2016 Patient is scheduled to see PCP 01/13/18. Patient to return to clinic for PharmD f/u on 11/14. Patient verbalized understanding of instructions. Emiliano Welch PharmD, BCPS CNOV Observed: 09/26/2017 Status: COMPLETED Source: [place] 2:30 PM [facility] REPOSITORY Office Visit (PHMEWO) JAROD LOONEY ([id number]) 1970 F Date Time Provider Department 09/26/17 2:30 PM YURI (PHARMACIST), EMILIANO BURGOS During your visit today, we recorded the following information about you: DEO KAUR 09/27/2017 11:25 AM Signed Patient consents to pharmacy collaborative practice agreement. REASON FOR CONSULT: DM? GOALS: A1c <?8% CONSULTING PROVIDER: Cindy Molina CNP?? Date of Consult: 04/2017 Jarod Looney is a 46 year old female was last seen in [facility] by PCP, Dr. MELYSSA MOBLEY MD on 09/09/17. Patient is presenting today for f/u pharmacotherapy management appointment for DM. At last PharmD visit liraglutide was changed to dulaglutide, other therapies continued. INTERIM HISTORY: Reports doing well overall Appetite is decreased since switching to dulaglutide Tolerating it without issues Past DM medications: Liraglutide Current DM Medications: Insulin degludec 60 units once daily Metformin 1,000mg BID Dulaglutide 1.5mg once weekly on Current HTN Medications: Amlodipine 5mg once daily Atenolol 50mg once daily Losartan 100mg once daily (take 0.5 tablet daily) Preventative Medications: ? On MANDY/ARB:Yes ? On Statin: Yes ? On ASA: Yes ROS: ? Patient denies CP, SOB, TATUM, blurred vision, dizziness or lightheadedness ? Patient denies symptoms of hypoglycemia (sweating, anxiety, palpitations, hunger, and tremor) ? Patient denies symptoms of hyperglycemia (polyuria, polydipsia, polyphagia) ? Patient denies potential medication adverse effects DIET/EXERCISE/SOCIAL Hx: ? Reports less appetite, otherwise no changes ? Tobacco: 1/2 ppd - not interested in quitting at this time MEDICATIONS: ? Pill bottles are not?present. ? Adherence: denies?missed doses. ? Pharmacy: [facility]and [facility] order? Rx coverage: [employer] ? Affordability: no issues ? Diabetes supplies: [employer] ? Organization System: none ACTIVE PROBLEM LIST Anxiety and Depression Hyperlipidemia Hypertension Fibromyalgia Syndrome Tobacco Abuse Type 2 Diabetes Mellitus With Diabetic Nephropathy (Hcc) Proteinuria Tendinitis of Thumb Raynaud's Syndrome Irritable Bowel Syndrome With Diarrhea Restless Leg Syndrome PAST MEDICAL HISTORY Diagnosis Date - De Quervain's tenosynovitis, bilateral - Diabetes (HCC) - Hypercholesterolemia - Raynaud's disease ALLERGIES Allergen Reactions - Penicillin G Swelling - Requip [Ropinirole] Other: See Comments seizures Current Outpatient Prescriptions: amLODIPine (NORVASC) 5 mg tablet TAKE 1 TABLET BY MOUTH ONCE DAILY venlafaxine ER (EFFEXOR XR) 150 mg 24 hr capsule TAKE 1 CAPSULE BY MOUTH ONCE DAILY fenofibrate nanocrystallized (TRICOR) 145 mg tablet TAKE 1 TABLET BY MOUTH ONCE DAILY losartan (COZAAR) 100 mg tablet TAKE ONE-HALF TABLET BY MOUTH ONCE DAILY atorvastatin (LIPITOR) 20 mg tablet TAKE 1 TABLET BY MOUTH ONCE DAILY atenolol (TENORMIN) 50 mg tablet TAKE 1 TABLET BY MOUTH ONCE DAILY omeprazole (PRILOSEC) 20 mg capsule TAKE 1 CAPSULE BY MOUTH DAILY BEFORE BREAKFAST montelukast (SINGULAIR) 10 mg tablet TAKE 1 TABLET BY MOUTH DAILY AT BEDTIME dulaglutide (TRULICITY) 1.5 mg/0.5 mL pnij Inject 1.5 mg subcutaneously once each week. insulin degludec (TRESIBA FLEXTOUCH U-100) 100 unit/mL (3 mL) injection Inject 60 Units subcutaneously once daily. gabapentin (NEURONTIN) 100 mg capsule Take 1 capsule by mouth three times daily. lancets (FREESTYLE LANCETS) 28 gauge misc Test blood sugar(s) 2 daily. Dx: E11.21. Insulin: No insulin needles, DISPOSABLE, (PEN NEEDLE) 31 gauge x 5/16 ndle Use one needle per dose. once per day. metFORMIN (GLUCOPHAGE) 1,000 mg tablet take 1 tablet by mouth twice a day with meals naproxen (NAPROSYN) 500 mg tablet Take 1 tablet by mouth twice daily as needed (for pain/inflammation). Take with food. blood sugar diagnostic (ONETOUCH ULTRA TEST) test strip Use as instructed LINZESS 145 mcg cap take 1 capsule by mouth once daily Syringe with Needle, Safety (3CC SAFETY SYRINGE 25GX5/8) 3 mL 25 x 5/8 syrg 1 mL once each week. aspirin, enteric coated (ADULT LOW DOSE ASPIRIN) 81 mg EC tablet Take 1 tablet by mouth once daily. No current facility-administered medications for this visit. Rx meds not listed in EPIC: none OTCs: none Herbals: none GLYCEMIC CONTROL: ? Glucometer present at visit: No ? SMBG?s: ? Reports FBGs 130-140s ? PPBG not checking ? Hypoglycemia: denies Last 3 Encounter BP Readings: Date: BP: 09/09/2017 110/60 06/02/2017 138/88 05/25/2017 128/88 Wt: 85.3 kg (188 lb 1.3 oz) BMI: 31.30 kg/(m2) LABS Lab Results Component Value Date HBA1C 8.7 08/13/2017 HBA1C 9.2 05/21/2017 HBA1C 7.7 09/25/2016 CMP: Glucose 225 08/13/2017 BUN 11 08/13/2017 Creatinine 0.55 08/13/2017 Sodium 137 08/13/2017 Potassium 4.3 08/13/2017 Chloride 99 08/13/2017 CO2 24 08/13/2017 Protein, Total 6.8 05/21/2017 Albumin 4.3 05/21/2017 Calcium 9.6 08/13/2017 Alkaline Phosphatase 84 05/21/2017 Bilirubin, Total 0.2 05/21/2017 AST 14 05/21/2017 ALT 22 05/21/2017 Estimated Creatinine Clearance: > 100 mL/min (based on Cr of 0.55). Last Lipid Panel Lab Results Component Value Date CHOL 171 05/21/2017 Lab Results Component Value Date HDL 29 05/21/2017 Lab Results Component Value Date LDL 76 05/21/2017 Lab Results Component Value Date TG 497 05/21/2017 Albumin/Creat Ratio (mg/g) Date Value 09/10/2017 225 (H) PHARMACOTHERAPY ASSESSMENT/PLAN: 1. Type 2 diabetes mellitus with diabetic nephropathy, with long-term current use of insulin (HCC) - ICD9: 250.40, 583.81, V58.67, ICD10: E11.21, Z79.4 (primary diagnosis) A1c goal <?8%, patient is not?at goal but improving (8.7% on 08/13). FBGs are reported to be at goal. Patient compliant with and tolerating current regimen. Tolerating new dulaglutide therapy. Will continue regimen at this time. Renal fxn and LFTs WNL?and appropriate for continued therapy ? CONTINUE dulaglutide 1.5mg once weekly, insulin degludec 60 units once daily and metformin 1,000mg BID ? Instructed patient to continue checking FBGs and PPBGs daily ? A1c in October 27. Essential hypertension - ICD9: 401.9, ICD10: I10 BP goal < 140/90, pt is at goal on current therapy. Patient compliant with and tolerating current regimen. Will continue. ?Pulse, renal fxn and K+ WNL?and appropriate for continued therapy. ? CONTINUE losartan 100mg, amlodipine 5mg, and atenolol 50mg once daily ? 3. Hyperlipidemia, unspecified hyperlipidemia type - ICD9: 272.4, ICD10: E78.5 Pt is on moderate statin intensity (indicated for high?intensity d/t DM?and ASCVD risk score 17%). Patient compliant with and tolerating current regimen. Will continue at this time and monitor lipids. ?LFTs and renal fxn WNL?and appropriate for continued therapy ? CONTINUE atorvastatin 20mg once daily Health Maintenance issues addressed: DILATED RETINAL EXAM due on 07/03/2016 Patient is scheduled to see PCP 01/13/18. Patient to return to clinic for PharmD f/u on 11/14. Patient verbalized understanding of instructions. Emiliano Welch, MaryD, [facility] Allergies As of Date: 09/26/2017 Noted Allergy Reaction PENICILLIN G 04/18/2013 7 - Swelling REQUIP (ROPINIROLE) 04/18/2013 14 - Other: See Comments Comments: seizures Date Reviewed: 06/02/2017 Reviewed by: Isabella Jenkins LPN - Fully Assessed Reason for Visit: Allied Health Visit [5] Cmt: DM follow-up Primary Visit Diagnosis:Type 2 diabetes mellitus with diabetic nephropathy, with long-term current use of insulin (HCC) [E11.21, Z79.4] Other Visit Diagnoses:Essential hypertension [I10] Hyperlipidemia, unspecified hyperlipidemia type [E78.5] Order(s):metFORMIN (GLUCOPHAGE) 1,000 mg tabletTake 1 tablet by mouth twice daily with meals.Disp: 180 tabletRfl: 5 dulaglutide (TRULICITY) 1.5 mg/ 0.5 ml subcutaneous pen injectorInject 1.5 mg subcutaneously once each week.Disp: 12 PenRfl: 3 HGB A1C [TEGWG5L] Order #: [id number] FUTURE BASIC METABOLIC PNL [SQBMP] Order #: [id number] FUTURE Prescriptions as of 09/26/2017 Sig: METFORMIN 1,000 MG TABLET Take 1 tablet by mouth twice * DULAGLUTIDE 1.5 MG/0.5 ML SUB* Inject 1.5 mg subcutaneously * AMLODIPINE 5 MG TABLET TAKE 1 TABLET BY MOUTH ONCE D* VENLAFAXINE ER 150 MG CAPSULE* TAKE 1 CAPSULE BY MOUTH ONCE* FENOFIBRATE NANOCRYSTALLIZED * TAKE 1 TABLET BY MOUTH ONCE D* LOSARTAN 100 MG TABLET TAKE ONE-HALF TABLET BY MOUT* ATORVASTATIN 20 MG TABLET TAKE 1 TABLET BY MOUTH ONCE D* ATENOLOL 50 MG TABLET TAKE 1 TABLET BY MOUTH ONCE D* OMEPRAZOLE 20 MG CAPSULE,SAYRA* TAKE 1 CAPSULE BY MOUTH HUGO* INSULIN DEGLUDEC (U-100) 100 * Inject 60 Units subcutaneousl* GABAPENTIN 100 MG CAPSULE Take 1 capsule by mouth three* ASPIRIN 81 MG TABLET,DELAYED * Take 1 tablet by mouth once d* MONTELUKAST 10 MG TABLET TAKE 1 TABLET BY MOUTH DAILY* LANCETS 28 GAUGE Test blood sugar(s) 2 daily. * PEN NEEDLE, DIABETIC 31 GAUGE* Use one needle per dose. once* NAPROXEN 500 MG TABLET Take 1 tablet by mouth twice * BLOOD SUGAR DIAGNOSTIC STRIPS Use as instructed LINZESS 145 MCG CAPSULE take 1 capsule by mouth once * SYRINGE WITH NEEDLE, SAFETY 3* 1 mL once each week. Problem List As Of Date 09/26/2017 Noted Resolved Anxiety and depression [F41.9, F32.9] INVALID FOR* More... Hyperlipidemia [E78.5] INVALID FOR* More... Hypertension [I10] INVALID FOR* More... Fibromyalgia syndrome [M79.7] INVALID FOR* More... Tobacco abuse [Z72.0] INVALID FOR* More... 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 Proteinuria [R80.9] INVALID FOR* Tendinitis of thumb [M77.8] INVALID FOR* More... Raynaud's syndrome [I73.00] INVALID FOR* More... Irritable bowel syndrome with diarrhea [K58.0] INVALID FOR* Restless leg syndrome [G25.81] INVALID FOR* Prescriptions ordered this encounter Disp Refills Start End METFORMIN 1,000 MG TABLET 60 t* 0 09/26/2017 09/26/2017 Route: ORAL Sig: Take 1 tablet by mouth twice daily with meals. METFORMIN 1,000 MG TABLET 180 * 5 09/26/2017 Route: ORAL Sig: Take 1 tablet by mouth twice daily with meals. DULAGLUTIDE 1.5 MG/0.5 ML SUBCUTANEO* 12 P* 3 09/26/2017 Route: SUBCUTANEOUS Sig: Inject 1.5 mg subcutaneously once each week. Medications Discontinued During This Encounter metFORMIN (GLUCOPHAGE) 1,000 mg tabl* 180 * 1 06/07/2017 09/26/2017 Sig: take 1 tablet by mouth twice a day with meals Disc: Reason for discontinue is not on file. metFORMIN (GLUCOPHAGE) 1,000 mg tabl* 60 t* 0 09/26/2017 09/26/2017 Route: ORAL Sig: Take 1 tablet by mouth twice daily with meals. Disc: Reason for discontinue is not on file. dulaglutide (TRULICITY) 1.5 mg/0.5 m* 12 P* 1 08/24/2017 09/26/2017 Route: SUBCUTANEOUS Sig: Inject 1.5 mg subcutaneously once each week. Disc: Reason for discontinue is not on file. Encounter Status:Closed by YURI (PHARMACIST)EMILIANO on 09/27/17 ALBUMIN/CREAT RATIO Collected: 09/10/2017 Status: F Source: [place] 9:04 [facility] REPOSITORY TYPE CODE TESTS RESULT OUT OF REFERENCE UNITS RANGE LAB UCRR 20-300 mg/dL Creatinine,Ur 81.9 ine,Ran LAB UALBR 0.0-23.0 mg/L High Albumin Urine 184.6 Random LAB UALBCR 0-30 mg/g High Albumin/Creat 225 Ratio Result Comment: 30 to 300 mg/g indicates an increased risk for diabetic nephropathy. Greater than 300 mg/g is consistent with clinical nephropathy. (Am J Kidney Disease 1995, 25:107) Performed By: #### UACR #### [facility] [address] [address] C-REACTIVE PROTEIN Collected: 09/10/2017 Status: F Source: [place] 9:02 [facility] REPOSITORY TYPE CODE TESTS RESULT OUT OF REFERENCE UNITS RANGE LAB CRP <0.9 mg/dL C-Reactive 0.6 Protein Performed By: #### CRP, RF, WSR, ANAIFS #### [place] [address] RHEUMATOID FACTOR Collected: 09/10/2017 Status: F Source: [place] 9:02 [facility] REPOSITORY TYPE CODE TESTS RESULT OUT OF REFERENCE UNITS RANGE LAB RF <16 IU/mL Rheumatoid <10 Factor Performed By: #### CRP, RF, WSR, ANAIFS #### [facility] [address], [place] [address] SED RATE WESTERGREN Collected: 09/10/2017 Status: F Source: [place] 9:02 [facility] REPOSITORY TYPE CODE TESTS RESULT OUT OF REFERENCE UNITS RANGE LAB WSR 0-20 mm/hr Sed Rate Westergren 5 Performed By: #### CRP, RF, WSR, ANAIFS #### [facility] [address], [place] [address] MILAD BY IFA Collected: 09/10/2017 Status: F Source: [place] 9:02 AM [facility] REPOSITORY TYPE CODE TESTS RESULT OUT OF REFERENCE UNITS RANGE LAB ANASC Negative MILAD Negative Result Comment: Normal range : negative at <1:80 serum dilution. Approximately 6% of patients with connective tissue diseases with low positive EIA values are negative by IFA. Recommend follow-up with specific antinuclear antibodies if clinically indicated. LAB RIRI Negative Negative MILAD Titer Result Comment: Normal range : negative at <1:80 serum dilution. LAB ANAP MILAD Not applicable Pattern for negative result. Performed By: #### CRP, RF, WSR, ANAIFS #### [facility] [address] [place], [place] [address] PROGRESS Observed: 09/09/2017 Status: COMPLETED Source: [place] 3:07 PM [facility] REPOSITORY HNO ID: [id number] Author: Melyssa Mobley Service: (none) Author Type: Physician Type: Progress Notes Filed: 09/09/2017 6:35 PM Note Text: Reason for Visit Patient presents with: Established Patient Jarod Looney is a 46 year old female who presents here today for Above Complaints.. Health Maintenance DTAP,TDAP,TD(1 - Tdap) MAMMOGRAM DILATED RETINAL EXAM DIABETIC FOOT EXAM HPI Type 2 diabetes mellitus with diabetic nephropathy (HCC) Her hba1c is higher than the past time, Medication have been changed, she is now taking, trulicity along with tresiba and metformin Diet log: she is eating better but not really exercising. Cherries, pineapple bananas, grapes etc, Walking around her apartment is not big enough for walking. ? Hyperlipidemia lipids are normal, reviewed test results with patient Who takes medications regularly and has no side effects. ? Anxiety and depression Patient is on effexor and is doing well with it. ? Tobacco abuse Still not quit Notes for the past year she has been having arthritis of the hands, knees and shoulders. No problem-specific Assessment AND Plan notes found for this encounter. PAST MEDICAL HISTORY Diagnosis Date - De Quervain's tenosynovitis, bilateral - Diabetes (HCC) - Hypercholesterolemia - Raynaud's disease PAST SURGICAL HISTORY Procedure Laterality Date - CONE OF CERVIX LOOPELEC EXCIS - EXTRACTION ERUPTED TOOTH/EXR - HYSTERECTOMY HX precervical cancer, removed cervix - KNEE SURGERY HX 4x right and left x4 FAMILY HISTORY Problem Relation Age of Onset - Hypertension Mother - Breast Cancer Mother - Breast Cancer Maternal Grandmother - Cervical Cancer Paternal Aunt - COPD Paternal Grandmother - Coronary Artery Disease Paternal Grandfather - Coronary Artery Disease Paternal Grandmother - Heart Paternal Aunt - raynaud [Other] [OTHER] Mother Social History Substance Use Topics - Smoking status: Current Every Day Smoker Packs/day: 0.50 Years: 21.00 Types: Cigarettes - Smokeless tobacco: Never Used - Alcohol use No Past medical history, appointments, medications, allergies reviewed. Pertinent Lab/Diagnostic Studies are reviewed and discussed today Current Outpatient Prescriptions: - amLODIPine (NORVASC) 5 mg tablet - venlafaxine ER (EFFEXOR XR) 150 mg 24 hr capsule - fenofibrate nanocrystallized (TRICOR) 145 mg tablet - losartan (COZAAR) 100 mg tablet - atorvastatin (LIPITOR) 20 mg tablet - atenolol (TENORMIN) 50 mg tablet - omeprazole (PRILOSEC) 20 mg capsule - montelukast (SINGULAIR) 10 mg tablet - dulaglutide (TRULICITY) 1.5 mg/0.5 mL pnij - insulin degludec (TRESIBA FLEXTOUCH U-100) 100 unit/mL (3 mL) injection - gabapentin (NEURONTIN) 100 mg capsule - lancets (FREESTYLE LANCETS) 28 gauge misc - insulin needles, DISPOSABLE, (PEN NEEDLE) 31 gauge x 5/16 ndle - metFORMIN (GLUCOPHAGE) 1,000 mg tablet - naproxen (NAPROSYN) 500 mg tablet - blood sugar diagnostic (ONETOUCH ULTRA TEST) test strip - LINZESS 145 mcg cap - Syringe with Needle, Safety (3CC SAFETY SYRINGE 25GX5/8) 3 mL 25 x 5/8 syrg - aspirin, enteric coated (ADULT LOW DOSE ASPIRIN) 81 mg EC tablet Review of Systems CONSTITUTIONAL: No fevers, chills night sweats, unintended weight loss CARDIOVASCULAR: No chest pain, dyspnea, palpitations, orthopnea, PND, ankle edema. PULM: No dyspnea, unexplained cough. GI: No dysphagia/odynophagia, problematic reflux, constipation, diarrhea, changes in stool habits, hematochezia, melena. : No new urinary complaints, including dysuria, gross hematuria or pyuria. NEURO: No new balance problems, peripheral weakness/paresthesias or numbness of concern. Physical Exam BP 110/60 (BP Site: Left Arm, BP Position: Sitting, BP Cuff Size: Large Adult) Pulse 74 Resp 16 Wt 85.3 kg (188 lb 1.3 oz) BMI 31.30 kg/m? General appearance: Well appearing, alert, in no acute distress, well nourished. Skin: Skin color, texture, turgor normal, no suspicious rashes or lesions Head: Normocephalic, no masses, lesions, tenderness or abnormalities Eyes: Anicteric sclera. Pupils are equally round and reactive to light. Extraocular movements are intact. Lungs: Lungs clear to auscultation. No wheezing, rhonchi, rales Heart: RRR without murmur, gallop, or rubs. Feet: Shoes and socks removed, No deformities, ulcers, calluses, normal distal pulses and sensitive to 10 gm monofilament ASSESSMENT/PLAN: 1. Anxiety and depression - ICD9: 300.00, 311, ICD10: F41.9, F32.9 (primary diagnosis) On effexor she is doing pretty good. 2. Hyperlipidemia, unspecified hyperlipidemia type - ICD9: 272.4, ICD10: E78.5 - good control - Continue current medication. 3. Essential hypertension - ICD9: 401.9, ICD10: I10 - good control - Recommended regular aerobic exercise. - Recommend home blood pressure monitoring, to bring results in on next visit - Goal of BP <130/80 4. Type 2 diabetes mellitus with diabetic nephropathy, with long-term current use of insulin (HCC) - ICD9: 250.40, 583.81, V58.67, ICD10: E11.21, Z79.4 Controlled. - Continue current medications - HGB A1C 5. Breast cancer screening by mammogram - ICD9: V76.12, ICD10: Z12.31 - Encouraged monthly BSE - Follow up for annual exam in one year. - TORRI SCREENING MELYSSA MOBLEY MD CNOV Observed: 09/09/2017 Status: COMPLETED Source: [place] 2:40 PM [facility] REPOSITORY Office Visit (INTMWS) JAROD LOONEY ([id number]) 1970 F Date Time Provider Department 09/09/17 2:40 PM MELYSSA MOBLEY During your visit today, we recorded the following information about you: Pulse Respiration Blood pressure Weight 74/minute 16/minute 110/60 85.3 kg MELYSSA MOBLEY MD 09/09/2017 6:35 PM Signed Reason for Visit Patient presents with: Established Patient Jarod Looney is a 46 year old female who presents here today for Above Complaints.. Health Maintenance DTAP,TDAP,TD(1 - Tdap) MAMMOGRAM DILATED RETINAL EXAM DIABETIC FOOT EXAM HPI Type 2 diabetes mellitus with diabetic nephropathy (HCC) Her hba1c is higher than the past time, Medication have been changed, she is now taking, trulicity along with tresiba and metformin Diet log: she is eating better but not really exercising. Cherries, pineapple bananas, grapes etc, Walking around her apartment is not big enough for walking. ? Hyperlipidemia lipids are normal, reviewed test results with patient Who takes medications regularly and has no side effects. ? Anxiety and depression Patient is on effexor and is doing well with it. ? Tobacco abuse Still not quit Notes for the past year she has been having arthritis of the hands, knees and shoulders. No problem-specific Assessment AND Plan notes found for this encounter. PAST MEDICAL HISTORY Diagnosis Date - De Quervain's tenosynovitis, bilateral - Diabetes (HCC) - Hypercholesterolemia - Raynaud's disease PAST SURGICAL HISTORY Procedure Laterality Date - CONE OF CERVIX LOOPELEC EXCIS - EXTRACTION ERUPTED TOOTH/EXR - HYSTERECTOMY HX precervical cancer, removed cervix - KNEE SURGERY HX 4x right and left x4 FAMILY HISTORY Problem Relation Age of Onset - Hypertension Mother - Breast Cancer Mother - Breast Cancer Maternal Grandmother - Cervical Cancer Paternal Aunt - COPD Paternal Grandmother - Coronary Artery Disease Paternal Grandfather - Coronary Artery Disease Paternal Grandmother - Heart Paternal Aunt - raynaud [Other] [OTHER] Mother Social History Substance Use Topics - Smoking status: Current Every Day Smoker Packs/day: 0.50 Years: 21.00 Types: Cigarettes - Smokeless tobacco: Never Used - Alcohol use No Past medical history, appointments, medications, allergies reviewed. Pertinent Lab/Diagnostic Studies are reviewed and discussed today Current Outpatient Prescriptions: - amLODIPine (NORVASC) 5 mg tablet - venlafaxine ER (EFFEXOR XR) 150 mg 24 hr capsule - fenofibrate nanocrystallized (TRICOR) 145 mg tablet - losartan (COZAAR) 100 mg tablet - atorvastatin (LIPITOR) 20 mg tablet - atenolol (TENORMIN) 50 mg tablet - omeprazole (PRILOSEC) 20 mg capsule - montelukast (SINGULAIR) 10 mg tablet - dulaglutide (TRULICITY) 1.5 mg/0.5 mL pnij - insulin degludec (TRESIBA FLEXTOUCH U-100) 100 unit/mL (3 mL) injection - gabapentin (NEURONTIN) 100 mg capsule - lancets (FREESTYLE LANCETS) 28 gauge misc - insulin needles, DISPOSABLE, (PEN NEEDLE) 31 gauge x 5/16 ndle - metFORMIN (GLUCOPHAGE) 1,000 mg tablet - naproxen (NAPROSYN) 500 mg tablet - blood sugar diagnostic (ONETOUCH ULTRA TEST) test strip - LINZESS 145 mcg cap - Syringe with Needle, Safety (3CC SAFETY SYRINGE 25GX5/8) 3 mL 25 x 5/8 syrg - aspirin, enteric coated (ADULT LOW DOSE ASPIRIN) 81 mg EC tablet Review of Systems CONSTITUTIONAL: No fevers, chills night sweats, unintended weight loss CARDIOVASCULAR: No chest pain, dyspnea, palpitations, orthopnea, PND, ankle edema. PULM: No dyspnea, unexplained cough. GI: No dysphagia/odynophagia, problematic reflux, constipation, diarrhea, changes in stool habits, hematochezia, melena. : No new urinary complaints, including dysuria, gross hematuria or pyuria. NEURO: No new balance problems, peripheral weakness/paresthesias or numbness of concern. Physical Exam BP 110/60 (BP Site: Left Arm, BP Position: Sitting, BP Cuff Size: Large Adult) Pulse 74 Resp 16 Wt 85.3 kg (188 lb 1.3 oz) BMI 31.30 kg/m? General appearance: Well appearing, alert, in no acute distress, well nourished. Skin: Skin color, texture, turgor normal, no suspicious rashes or lesions Head: Normocephalic, no masses, lesions, tenderness or abnormalities Eyes: Anicteric sclera. Pupils are equally round and reactive to light. Extraocular movements are intact. Lungs: Lungs clear to auscultation. No wheezing, rhonchi, rales Heart: RRR without murmur, gallop, or rubs. Feet: Shoes and socks removed, No deformities, ulcers, calluses, normal distal pulses and sensitive to 10 gm monofilament ASSESSMENT/PLAN: 1. Anxiety and depression - ICD9: 300.00, 311, ICD10: F41.9, F32.9 (primary diagnosis) On effexor she is doing pretty good. 2. Hyperlipidemia, unspecified hyperlipidemia type - ICD9: 272.4, ICD10: E78.5 - good control - Continue current medication. 3. Essential hypertension - ICD9: 401.9, ICD10: I10 - good control - Recommended regular aerobic exercise. - Recommend home blood pressure monitoring, to bring results in on next visit - Goal of BP <130/80 4. Type 2 diabetes mellitus with diabetic nephropathy, with long-term current use of insulin (HCC) - ICD9: 250.40, 583.81, V58.67, ICD10: E11.21, Z79.4 Controlled. - Continue current medications - HGB A1C 5. Breast cancer screening by mammogram - ICD9: V76.12, ICD10: Z12.31 - Encouraged monthly BSE - Follow up for annual exam in one year. - TORRI SCREENING MELYSSA MOBLEY MD Referring Provider: SYL VEGA [[id number]] Allergies As of Date: 09/09/2017 Noted Allergy Reaction PENICILLIN G 04/18/2013 7 - Swelling REQUIP (ROPINIROLE) 04/18/2013 14 - Other: See Comments Comments: seizures Date Reviewed: 06/02/2017 Reviewed by: Isabella Jenkins LPN - Fully Assessed Reason for Visit: Established Patient [175] Primary Visit Diagnosis:Anxiety and depression [F41.9, F32.9] Other Visit Diagnoses:Hyperlipidemia, unspecified hyperlipidemia type [E78.5] Essential hypertension [I10] Type 2 diabetes mellitus with diabetic nephropathy, with long-term current use of insulin (HCC) [E11.21, Z79.4] Breast cancer screening by mammogram [Z12.31] Arthritis [M19.90] Tenosynovitis, de Quervain [M65.4] Order(s):HGB A1C [QLPIP1C] Order #: [id number] FUTURE TORRI SCREENING [[id number]] Order #: [id number] FUTURE MILAD BY IFA SCREEN [SQANAIFS] Order #: [id number] FUTURE RHEUMATOID FACTOR BL [SQRF] Order #: [id number] FUTURE SED RATE WESTERGREN [SQWSR] Order #: [id number] FUTURE C-REACTIVE PROTEIN (CRP) [SQCRP] Order #: [id number] FUTURE CONSULT TO SPORTS MEDICINE [[id number]] Order #: [id number]: 1 Prescriptions as of 09/09/2017 Sig: AMLODIPINE 5 MG TABLET TAKE 1 TABLET BY MOUTH ONCE D* VENLAFAXINE ER 150 MG CAPSULE* TAKE 1 CAPSULE BY MOUTH ONCE* FENOFIBRATE NANOCRYSTALLIZED * TAKE 1 TABLET BY MOUTH ONCE D* LOSARTAN 100 MG TABLET TAKE ONE-HALF TABLET BY MOUT* ATORVASTATIN 20 MG TABLET TAKE 1 TABLET BY MOUTH ONCE D* ATENOLOL 50 MG TABLET TAKE 1 TABLET BY MOUTH ONCE D* OMEPRAZOLE 20 MG CAPSULE,SAYRA* TAKE 1 CAPSULE BY MOUTH HUGO* MONTELUKAST 10 MG TABLET TAKE 1 TABLET BY MOUTH DAILY* DULAGLUTIDE 1.5 MG/0.5 ML SUB* Inject 1.5 mg subcutaneously * INSULIN DEGLUDEC (U-100) 100 * Inject 60 Units subcutaneousl* GABAPENTIN 100 MG CAPSULE Take 1 capsule by mouth three* LANCETS 28 GAUGE Test blood sugar(s) 2 daily. * PEN NEEDLE, DIABETIC 31 GAUGE* Use one needle per dose. once* METFORMIN 1,000 MG TABLET take 1 tablet by mouth twice * NAPROXEN 500 MG TABLET Take 1 tablet by mouth twice * BLOOD SUGAR DIAGNOSTIC STRIPS Use as instructed LINZESS 145 MCG CAPSULE take 1 capsule by mouth once * SYRINGE WITH NEEDLE, SAFETY 3* 1 mL once each week. ASPIRIN 81 MG TABLET,DELAYED * Take 1 tablet by mouth once d* Problem List As Of Date 09/09/2017 Noted Resolved Anxiety and depression [F41.9, F32.9] INVALID FOR* More... Hyperlipidemia [E78.5] INVALID FOR* More... Hypertension [I10] INVALID FOR* More... Fibromyalgia syndrome [M79.7] INVALID FOR* More... Tobacco abuse [Z72.0] INVALID FOR* More... 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 Proteinuria [R80.9] INVALID FOR* Tendinitis of thumb [M77.8] INVALID FOR* More... Raynaud's syndrome [I73.00] INVALID FOR* More... Irritable bowel syndrome with diarrhea [K58.0] INVALID FOR* Restless leg syndrome [G25.81] INVALID FOR* Encounter Status:Closed by MELYSSA MOBLEY MD on 09/09/17 PROGRESS Observed: 08/24/2017 Status: COMPLETED Source: [place] 10:30 AM [facility] REPOSITORY HNO ID: [id number] Author: Emiliano Welch (Pharmacist) Service: (none) Author Type: Pharmacist Type: Progress Notes Filed: 08/24/2017 1:19 PM Note Text: Patient consents to pharmacy collaborative practice agreement. REASON FOR CONSULT: DM GOALS: A1c < 8% CONSULTING PROVIDER: Cindy Molina CNP Date of Consult: 04/2017 Jarod Looney is a 46 year old female was last seen in [facility] by PCP, Dr. MELYSSA MOBLEY MD on 10/01/16. Also saw Cindy Molina CNP on 06/02 Patient is presenting today for f/u pharmacotherapy management appointment for DM. At last provider visit insulin detemir was increased to 30 units BID INTERIM HISTORY: 06/20 PharmD my chart message detemir was changed to degludec for improved BG control Wondering about change to dulaglutide because feels like she's always hungry despite taking liraglutide Current DM Medications: Insulin degludec 60 units once daily Metformin 1,000mg BID Liraglutide 1.8mg once daily Current HTN Medications: Amlodipine 5mg once daily Atenolol 50mg once daily Losartan 100mg once daily (take 0.5 tablet daily) Preventative Medications: ? On MANDY/ARB:Yes ? On Statin: Yes ? On ASA: Yes ROS: ? Patient denies CP, SOB, TATUM, blurred vision, dizziness or lightheadedness ? Patient denies symptoms of hypoglycemia (sweating, anxiety, palpitations, hunger, and tremor) ? Patient denies symptoms of hyperglycemia (polyuria, polydipsia, polyphagia) ? Patient denies potential medication adverse effects DIET/EXERCISE/SOCIAL Hx: ? Just feels that she is hungry all the time ? Is eating some starches but trying to cut out ? Tobacco: 1/2 ppd - not interested in quitting at this time MEDICATIONS: ? Pill bottles are not present. ? Adherence: denies missed doses. ? Pharmacy: [facility] order ? Rx coverage: Caresource ? Affordability: no issues ? Diabetes supplies: One Touch ? Organization System: none ACTIVE PROBLEM LIST Anxiety and Depression Hyperlipidemia Hypertension Fibromyalgia Syndrome Tobacco Abuse Type 2 Diabetes Mellitus With Diabetic Nephropathy (Hcc) Proteinuria Tendinitis of Thumb Raynaud's Syndrome Irritable Bowel Syndrome With Diarrhea Restless Leg Syndrome PAST MEDICAL HISTORY Diagnosis Date - De Quervain's tenosynovitis, bilateral - Diabetes (HCC) - Hypercholesterolemia - Raynaud's disease ALLERGIES Allergen Reactions - Penicillin G Swelling - Requip [Ropinirole] Other: See Comments seizures Current Outpatient Prescriptions: insulin degludec (TRESIBA FLEXTOUCH U-100) 100 unit/mL (3 mL) injection Inject 60 Units subcutaneously once daily. amLODIPine (NORVASC) 5 mg tablet Take 1 tablet by mouth once daily. atenolol (TENORMIN) 50 mg tablet Take 1 tablet by mouth once daily. atorvastatin (LIPITOR) 20 mg tablet Take 1 tablet by mouth once daily. gabapentin (NEURONTIN) 100 mg capsule Take 1 capsule by mouth three times daily. liraglutide (VICTOZA 3-[place]) 0.6 mg/0.1 mL (18 mg/3 mL) pnij INJECT 1.8 MG SUBCUTANEOUSLY ONCE DAILY. montelukast (SINGULAIR) 10 mg tablet Take 1 tablet by mouth daily at bedtime. fenofibrate nanocrystallized (TRICOR) 145 mg tablet Take 1 tablet by mouth once daily. venlafaxine ER (EFFEXOR XR) 150 mg 24 hr capsule Take 1 capsule by mouth once daily. omeprazole (PRILOSEC) 20 mg capsule Take 1 capsule by mouth daily before breakfast. lancets (FREESTYLE LANCETS) 28 gauge misc Test blood sugar(s) 2 daily. Dx: E11.21. Insulin: No losartan (COZAAR) 100 mg tablet Take 0.5 tablets by mouth once daily. insulin needles, DISPOSABLE, (PEN NEEDLE) 31 gauge x 5/16 ndle Use one needle per dose. once per day. metFORMIN (GLUCOPHAGE) 1,000 mg tablet take 1 tablet by mouth twice a day with meals naproxen (NAPROSYN) 500 mg tablet Take 1 tablet by mouth twice daily as needed (for pain/inflammation). Take with food. blood sugar diagnostic (HiphuntersTOUCH ULTRA TEST) test strip Use as instructed LINZESS 145 mcg cap take 1 capsule by mouth once daily Syringe with Needle, Safety (3CC SAFETY SYRINGE 25GX5/8) 3 mL 25 x 5/8 syrg 1 mL once each week. aspirin, enteric coated (ADULT LOW DOSE ASPIRIN) 81 mg EC tablet Take 1 tablet by mouth once daily. No current facility-administered medications for this visit. Rx meds not listed in EPIC: none OTCs: none Herbals: none GLYCEMIC CONTROL: ? Glucometer present at visit: Yes ? SMBG?s: Date Fasting AM 2 hr PP Before Lunch 2 hr PP Before Dinner 2 hr PP Bedtime 08/18 162 08/16 207 08/15 197 147 08/04 163 08/02 138 156 07/25 126 07/24 142 07/22 110 07/21 155 07/13 153 07/12 196 ? Hypoglycemia: no Last 3 Encounter BP Readings: Date: BP: 06/02/2017 138/88 05/25/2017 128/88 03/17/2017 120/80 Wt: 84.4 kg (186 lb) BMI: 30.95 kg/(m2) LABS Lab Results Component Value Date HBA1C 8.7 08/13/2017 HBA1C 9.2 05/21/2017 HBA1C 7.7 09/25/2016 CMP: Glucose 225 08/13/2017 BUN 11 08/13/2017 Creatinine 0.55 08/13/2017 Sodium 137 08/13/2017 Potassium 4.3 08/13/2017 Chloride 99 08/13/2017 CO2 24 08/13/2017 Protein, Total 6.8 05/21/2017 Albumin 4.3 05/21/2017 Calcium 9.6 08/13/2017 Alkaline Phosphatase 84 05/21/2017 Bilirubin, Total 0.2 05/21/2017 AST 14 05/21/2017 ALT 22 05/21/2017 Estimated Creatinine Clearance: > 100 mL/min (based on Cr of 0.55). Last Lipid Panel Lab Results Component Value Date CHOL 171 05/21/2017 Lab Results Component Value Date HDL 29 05/21/2017 Lab Results Component Value Date LDL 76 05/21/2017 Lab Results Component Value Date TG 497 05/21/2017 Albumin/Creat Ratio (mg/g) Date Value 09/25/2016 231 (H) PHARMACOTHERAPY ASSESSMENT/PLAN: 1. Type 2 diabetes mellitus with diabetic nephropathy, with long-term current use of insulin (HCC) - ICD9: 250.40, 583.81, V58.67, ICD10: E11.21, Z79.4 (primary diagnosis) A1c goal < 8%, patient is not at goal but improving (8.7% on 08/13). FBGs and PPBGs improving with limited data available. Patient compliant with and tolerating current regimen. Options are change liraglutide to dulaglutide or to add meal-time insulin. Will attempt change in GLP-1 first to see if that improves BGs along with lifestyle modifications. Discussed potential for side effects with switch from liraglutide to dulaglutide and patient expresses understanding. Will contact PharmD if any issues. Renal fxn and LFTs WNL and appropriate for continued therapy ? START dulaglutide 1.5mg once weekly ? STOP liraglutide 1.8mg ? CONTINUE insulin degludec 60 units once daily and metformin 1,000mg BID ? Instructed patient to continue checking FBGs and PPBGs daily 2. Essential hypertension - ICD9: 401.9, ICD10: I10 BP goal < 140/90, pt is at goal on current therapy. Patient compliant with and tolerating current regimen. Will continue. Pulse, renal fxn and K+ WNL and appropriate for continued therapy. ? CONTINUE losartan 100mg, amlodipine 5mg, and atenolol 50mg once daily 3. Hyperlipidemia, unspecified hyperlipidemia type - ICD9: 272.4, ICD10: E78.5 Pt is on moderate statin intensity (indicated for high intensity d/t DM and ASCVD risk score 17%). Patient compliant with and tolerating current regimen. Will continue at this time and monitor lipids. LFTs and renal fxn WNL and appropriate for continued therapy ? CONTINUE atorvastatin 20mg once daily Health Maintenance issues addressed: DILATED RETINAL EXAM due on 07/03/2016 Patient is scheduled to see PCP 09/09. Patient to return to clinic for PharmD f/u on 09/26. Patient verbalized understanding of instructions. Emiliano Welch PharmD, BCPS CNOV Observed: 08/24/2017 Status: COMPLETED Source: [place] 10:30 AM [facility] REPOSITORY Office Visit (PHMEWO) JAROD LOONEY ([id number]) 1970 F Date Time Provider Department 08/24/17 10:30 AM YURI (PHARMACIST)EMILIANO During your visit today, we recorded the following information about you: DEO KAUR 08/24/2017 1:19 PM Signed Patient consents to pharmacy collaborative practice agreement. REASON FOR CONSULT: DM GOALS: A1c < 8% CONSULTING PROVIDER: Cindy Molina CNP Date of Consult: 04/2017 Jarod Zaina Looney is a 46 year old female was last seen in [facility] by PCP, Dr. MELYSSA MOBLEY MD on 10/01/16. Also saw Cindy Molina CNP on 06/02 Patient is presenting today for f/u pharmacotherapy management appointment for DM. At last provider visit insulin detemir was increased to 30 units BID INTERIM HISTORY: 06/20 PharmD my chart message detemir was changed to degludec for improved BG control Wondering about change to dulaglutide because feels like she's always hungry despite taking liraglutide Current DM Medications: Insulin degludec 60 units once daily Metformin 1,000mg BID Liraglutide 1.8mg once daily Current HTN Medications: Amlodipine 5mg once daily Atenolol 50mg once daily Losartan 100mg once daily (take 0.5 tablet daily) Preventative Medications: ? On MANDY/ARB:Yes ? On Statin: Yes ? On ASA: Yes ROS: ? Patient denies CP, SOB, TATUM, blurred vision, dizziness or lightheadedness ? Patient denies symptoms of hypoglycemia (sweating, anxiety, palpitations, hunger, and tremor) ? Patient denies symptoms of hyperglycemia (polyuria, polydipsia, polyphagia) ? Patient denies potential medication adverse effects DIET/EXERCISE/SOCIAL Hx: ? Just feels that she is hungry all the time ? Is eating some starches but trying to cut out ? Tobacco: 1/2 ppd - not interested in quitting at this time MEDICATIONS: ? Pill bottles are not present. ? Adherence: denies missed doses. ? Pharmacy: [facility] order ? Rx coverage: Caresource ? Affordability: no issues ? Diabetes supplies: One Touch ? Organization System: none ACTIVE PROBLEM LIST Anxiety and Depression Hyperlipidemia Hypertension Fibromyalgia Syndrome Tobacco Abuse Type 2 Diabetes Mellitus With Diabetic Nephropathy (Hcc) Proteinuria Tendinitis of Thumb Raynaud's Syndrome Irritable Bowel Syndrome With Diarrhea Restless Leg Syndrome PAST MEDICAL HISTORY Diagnosis Date - De Quervain's tenosynovitis, bilateral - Diabetes (HCC) - Hypercholesterolemia - Raynaud's disease ALLERGIES Allergen Reactions - Penicillin G Swelling - Requip [Ropinirole] Other: See Comments seizures Current Outpatient Prescriptions: insulin degludec (TRESIBA FLEXTOUCH U-100) 100 unit/mL (3 mL) injection Inject 60 Units subcutaneously once daily. amLODIPine (NORVASC) 5 mg tablet Take 1 tablet by mouth once daily. atenolol (TENORMIN) 50 mg tablet Take 1 tablet by mouth once daily. atorvastatin (LIPITOR) 20 mg tablet Take 1 tablet by mouth once daily. gabapentin (NEURONTIN) 100 mg capsule Take 1 capsule by mouth three times daily. liraglutide (VICTOZA 3-[place]) 0.6 mg/0.1 mL (18 mg/3 mL) pnij INJECT 1.8 MG SUBCUTANEOUSLY ONCE DAILY. montelukast (SINGULAIR) 10 mg tablet Take 1 tablet by mouth daily at bedtime. fenofibrate nanocrystallized (TRICOR) 145 mg tablet Take 1 tablet by mouth once daily. venlafaxine ER (EFFEXOR XR) 150 mg 24 hr capsule Take 1 capsule by mouth once daily. omeprazole (PRILOSEC) 20 mg capsule Take 1 capsule by mouth daily before breakfast. lancets (FREESTYLE LANCETS) 28 gauge [facility] [place] Test blood sugar(s) 2 daily. Dx: E11.21. Insulin: No losartan (COZAAR) 100 mg tablet Take 0.5 tablets by mouth once daily. insulin needles, DISPOSABLE, (PEN NEEDLE) 31 gauge x 5/16 ndle Use one needle per dose. once per day. metFORMIN (GLUCOPHAGE) 1,000 mg tablet take 1 tablet by mouth twice a day with meals naproxen (NAPROSYN) 500 mg tablet Take 1 tablet by mouth twice daily as needed (for pain/inflammation). Take with food. blood sugar diagnostic (HiphuntersTOUCH ULTRA TEST) test strip Use as instructed LINZESS 145 mcg cap take 1 capsule by mouth once daily Syringe with Needle, Safety (3CC SAFETY SYRINGE 25GX5/8) 3 mL 25 x 5/8 syrg 1 mL once each week. aspirin, enteric coated (ADULT LOW DOSE ASPIRIN) 81 mg EC tablet Take 1 tablet by mouth once daily. No current facility-administered medications for this visit. Rx meds not listed in EPIC: none OTCs: none Herbals: none GLYCEMIC CONTROL: ? Glucometer present at visit: Yes ? SMBG?s: Date Fasting AM 2 hr PP Before Lunch 2 hr PP Before Dinner 2 hr PP Bedtime 08/18 162 08/16 207 08/15 197 147 08/04 163 08/02 138 156 07/25 126 07/24 142 07/22 110 07/21 155 07/13 153 07/12 196 ? Hypoglycemia: no Last 3 Encounter BP Readings: Date: BP: 06/02/2017 138/88 05/25/2017 128/88 03/17/2017 120/80 Wt: 84.4 kg (186 lb) BMI: 30.95 kg/(m2) LABS Lab Results Component Value Date HBA1C 8.7 08/13/2017 HBA1C 9.2 05/21/2017 HBA1C 7.7 09/25/2016 CMP: Glucose 225 08/13/2017 BUN 11 08/13/2017 Creatinine 0.55 08/13/2017 Sodium 137 08/13/2017 Potassium 4.3 08/13/2017 Chloride 99 08/13/2017 CO2 24 08/13/2017 Protein, Total 6.8 05/21/2017 Albumin 4.3 05/21/2017 Calcium 9.6 08/13/2017 Alkaline Phosphatase 84 05/21/2017 Bilirubin, Total 0.2 05/21/2017 AST 14 05/21/2017 ALT 22 05/21/2017 Estimated Creatinine Clearance: > 100 mL/min (based on Cr of 0.55). Last Lipid Panel Lab Results Component Value Date CHOL 171 05/21/2017 Lab Results Component Value Date HDL 29 05/21/2017 Lab Results Component Value Date LDL 76 05/21/2017 Lab Results Component Value Date TG 497 05/21/2017 Albumin/Creat Ratio (mg/g) Date Value 09/25/2016 231 (H) PHARMACOTHERAPY ASSESSMENT/PLAN: 1. Type 2 diabetes mellitus with diabetic nephropathy, with long-term current use of insulin (HCC) - ICD9: 250.40, 583.81, V58.67, ICD10: E11.21, Z79.4 (primary diagnosis) A1c goal < 8%, patient is not at goal but improving (8.7% on 08/13). FBGs and PPBGs improving with limited data available. Patient compliant with and tolerating current regimen. Options are change liraglutide to dulaglutide or to add meal-time insulin. Will attempt change in GLP-1 first to see if that improves BGs along with lifestyle modifications. Discussed potential for side effects with switch from liraglutide to dulaglutide and patient expresses understanding. Will contact PharmD if any issues. Renal fxn and LFTs WNL and appropriate for continued therapy ? START dulaglutide 1.5mg once weekly ? STOP liraglutide 1.8mg ? CONTINUE insulin degludec 60 units once daily and metformin 1,000mg BID ? Instructed patient to continue checking FBGs and PPBGs daily 2. Essential hypertension - ICD9: 401.9, ICD10: I10 BP goal < 140/90, pt is at goal on current therapy. Patient compliant with and tolerating current regimen. Will continue. Pulse, renal fxn and K+ WNL and appropriate for continued therapy. ? CONTINUE losartan 100mg, amlodipine 5mg, and atenolol 50mg once daily 3. Hyperlipidemia, unspecified hyperlipidemia type - ICD9: 272.4, ICD10: E78.5 Pt is on moderate statin intensity (indicated for high intensity d/t DM and ASCVD risk score 17%). Patient compliant with and tolerating current regimen. Will continue at this time and monitor lipids. LFTs and renal fxn WNL and appropriate for continued therapy ? CONTINUE atorvastatin 20mg once daily Health Maintenance issues addressed: DILATED RETINAL EXAM due on 07/03/2016 Patient is scheduled to see PCP 09/09. Patient to return to clinic for PharmD f/u on 09/26. Patient verbalized understanding of instructions. Emiliano Welch, PharmD, BCPS Allergies As of Date: 08/24/2017 Noted Allergy Reaction PENICILLIN G 04/18/2013 7 - Swelling REQUIP (ROPINIROLE) 04/18/2013 14 - Other: See Comments Comments: seizures Date Reviewed: 06/02/2017 Reviewed by: Isabella Jenkins LPN - Fully Assessed Reason for Visit: Allied Health Visit [5] Cmt: DM follow-up Primary Visit Diagnosis:Type 2 diabetes mellitus with diabetic nephropathy, with long-term current use of insulin (HCC) [E11.21, Z79.4] Other Visit Diagnoses:Essential hypertension [I10] Hyperlipidemia, unspecified hyperlipidemia type [E78.5] Order(s):dulaglutide (TRULICITY) 1.5 mg/0.5 mL pnijInject 1.5 mg subcutaneously once each week.Disp: 12 PenRfl: 1 Prescriptions as of 08/24/2017 Sig: INSULIN DEGLUDEC (U-100) 100 * Inject 60 Units subcutaneousl* AMLODIPINE 5 MG TABLET Take 1 tablet by mouth once d* ATENOLOL 50 MG TABLET Take 1 tablet by mouth once d* ATORVASTATIN 20 MG TABLET Take 1 tablet by mouth once d* GABAPENTIN 100 MG CAPSULE Take 1 capsule by mouth three* FENOFIBRATE NANOCRYSTALLIZED * Take 1 tablet by mouth once d* VENLAFAXINE ER 150 MG CAPSULE* Take 1 capsule by mouth once * OMEPRAZOLE 20 MG CAPSULE,SAYRA* Take 1 capsule by mouth daily* LOSARTAN 100 MG TABLET Take 0.5 tablets by mouth onc* METFORMIN 1,000 MG TABLET take 1 tablet by mouth twice * ASPIRIN 81 MG TABLET,DELAYED * Take 1 tablet by mouth once d* DULAGLUTIDE 1.5 MG/0.5 ML SUB* Inject 1.5 mg subcutaneously * MONTELUKAST 10 MG TABLET Take 1 tablet by mouth daily * LANCETS 28 GAUGE Test blood sugar(s) 2 daily. * PEN NEEDLE, DIABETIC 31 GAUGE* Use one needle per dose. once* NAPROXEN 500 MG TABLET Take 1 tablet by mouth twice * BLOOD SUGAR DIAGNOSTIC STRIPS Use as instructed LINZESS 145 MCG CAPSULE take 1 capsule by mouth once * SYRINGE WITH NEEDLE, SAFETY 3* 1 mL once each week. Problem List As Of Date 08/24/2017 Noted Resolved Anxiety and depression [F41.9, F32.9] INVALID FOR* More... Hyperlipidemia [E78.5] INVALID FOR* More... Hypertension [I10] INVALID FOR* More... Fibromyalgia syndrome [M79.7] INVALID FOR* More... Tobacco abuse [Z72.0] INVALID FOR* More... 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 Proteinuria [R80.9] INVALID FOR* Tendinitis of thumb [M77.8] INVALID FOR* More... Raynaud's syndrome [I73.00] INVALID FOR* More... Irritable bowel syndrome with diarrhea [K58.0] INVALID FOR* Restless leg syndrome [G25.81] INVALID FOR* Prescriptions ordered this encounter Disp Refills Start End DULAGLUTIDE 1.5 MG/0.5 ML SUBCUTANEO* 12 P* 1 08/24/2017 Route: SUBCUTANEOUS Sig: Inject 1.5 mg subcutaneously once each week. Medications Discontinued During This Encounter liraglutide (VICTOZA 3-[place]) 0.6 mg/0* 3 Pen 3 08/01/2017 08/24/2017 Sig: INJECT 1.8 MG SUBCUTANEOUSLY ONCE DAILY. Disc: Reason for discontinue is not on file. Encounter Status:Closed by YURI (PHARMACIST)EMILIANO on 08/24/17 CNPTOUTREACH Observed: 08/23/2017 Status: COMPLETED Source: [place] 12:00 AM [facility] REPOSIT[facility] Patient Outreach (FAMPST) JAROD LOONEY ([id number]) 1970 F Date Time Provider Department 08/23/17 MELYSSA MOBLEY [facility] During your visit today, we recorded the following information about you: Allergies As of Date: 08/23/2017 Noted Allergy Reaction PENICILLIN G 04/18/2013 7 - Swelling REQUIP (ROPINIROLE) 04/18/2013 14 - Other: See Comments Comments: seizures Date Reviewed: 06/02/2017 Reviewed by: Isabella Jenkins LPN - Fully Assessed Visit Diagnosis:Medication management [Z79.899] Order(s):ALBUMIN/CREAT RATIO RND UR [SQUACR] Order #: [id number] FUTURE Prescriptions as of 08/23/2017 Sig: X INSULIN DEGLUDEC (U-100) 100 * Inject 60 Units subcutaneousl* PEN NEEDLE, DIABETIC 31 GAUGE* Use one needle per dose. once* X AMLODIPINE 5 MG TABLET Take 1 tablet by mouth once d* X ATENOLOL 50 MG TABLET Take 1 tablet by mouth once d* X ATORVASTATIN 20 MG TABLET Take 1 tablet by mouth once d* X GABAPENTIN 100 MG CAPSULE Take 1 capsule by mouth three* X LIRAGLUTIDE 0.6 MG/0.1 ML (18* INJECT 1.8 MG SUBCUTANEOUSLY * X MONTELUKAST 10 MG TABLET Take 1 tablet by mouth daily * X FENOFIBRATE NANOCRYSTALLIZED * Take 1 tablet by mouth once d* X VENLAFAXINE ER 150 MG CAPSULE* Take 1 capsule by mouth once * X OMEPRAZOLE 20 MG CAPSULE,SAYRA* Take 1 capsule by mouth daily* X LANCETS 28 GAUGE Test blood sugar(s) 2 daily. * X LOSARTAN 100 MG TABLET Take 0.5 tablets by mouth onc* X METFORMIN 1,000 MG TABLET take 1 tablet by mouth twice * BLOOD SUGAR DIAGNOSTIC STRIPS Use as instructed X NAPROXEN 500 MG TABLET Take 1 tablet by mouth twice * LINZESS 145 MCG CAPSULE take 1 capsule by mouth once * SYRINGE WITH NEEDLE, SAFETY 3* 1 mL once each week. ASPIRIN 81 MG TABLET,DELAYED * Take 1 tablet by mouth once d* Problem List As Of Date 08/23/2017 Noted Resolved Anxiety and depression [F41.9, F32.9] INVALID FOR* More... Hyperlipidemia [E78.5] INVALID FOR* More... Hypertension [I10] INVALID FOR* More... Fibromyalgia syndrome [M79.7] INVALID FOR* More... Tobacco abuse [Z72.0] INVALID FOR* More... 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 Proteinuria [R80.9] INVALID FOR* Tendinitis of thumb [M77.8] INVALID FOR* More... Raynaud's syndrome [I73.00] INVALID FOR* More... Irritable bowel syndrome with diarrhea [K58.0] INVALID FOR* Restless leg syndrome [G25.81] INVALID FOR* Encounter Status:Closed by NATALIA, PRODUSER on 01/06/18 CBC Collected: 08/13/2017 Status: F Source: [place] 8:30 AM [facility] REPOSITORY TYPE CODE TESTS RESULT OUT OF REFERENCE UNITS RANGE LAB WBC 3.70-11.00 k/uL WBC 8.18 LAB RBC 3.90-5.20 m/uL RBC High 5.33 LAB HGB 11.5-15.5 g/dL Hemoglobin 15.3 LAB HCT 36.0-46.0 % High Hematocrit 47.3 LAB MCV 80.0-100.0 fL MCV 88.7 LAB MCH 26.0-34.0 pG MCH 28.7 LAB MCHC 30.5-36.0 g/dL MCHC 32.3 LAB RDWCV 11.5-15.0 % RDW-CV 13.7 LAB PLTCT 150-400 k/uL Platelet High Count 452 LAB MPV 9.0-12.7 fL Low MPV 8.8 LAB ABSNUC <0.01 k/uL Absolute nRBC <0.01 Performed By: #### CBC, BMP, HBA1C #### [facility] [address] [address] BASIC METABOLIC PANL Collected: 08/13/2017 Status: F Source: [place] 8:30 AM [facility] REPOSITORY TYPE CODE TESTS RESULT OUT OF REFERENCE UNITS RANGE LAB GLU 74-99 mg/dL High Glucose 225 Result Comment: The [place] [employer] Association (ADA) provides guidance for cutoff values for fasting glucose and random glucose. The ADA defines fasting as no caloric intake for at least 8 hours. Fas ting plasma glucose results between 100 to 125 mg/dL indicate increased risk for diabetes (prediabetes). Fasting plasma glucose results greater than or equal to 126 mg/dL meet the criteria for diagnosis of diabetes. In the absence of unequivocal hyperglycemia, results should be confirmed by repeat testing. In a patient with classic symptoms of hyperglycemia or hyperglycemic crisis, random plasma glucose results greater than or equal to 200 mg/dL meet the criteria for diagnosis of diabetes. Reference: Standards of Medical Care in Diabetes 2016, [place] [employer] Association. Diabetes Care. 2016.39(Suppl 1). LAB BUN 7-21 mg/dL BUN 11 LAB CRET 0.58-0.96 mg/dL Creatinine Low 0.55 LAB NA 136-144 mmol/L Sodium 137 LAB K 3.7-5.1 mmol/L Potassium 4.3 LAB CL 97-105 mmol/L Chloride 99 LAB CO2 22-30 mmol/L CO2 24 LAB AGAP 9-18 mmol/L Anion Gap 14 LAB CA 8.5-10.2 mg/dL Calcium, Total 9.6 LAB GFRAA eGFR- Amer. >60 LAB GFRNAA . eGFR-All Other Races >60 Result Comment: eGFR (Estimated GFR) Units of measure: mL/min/1.73 meters squared eGFR is derived from the reexpressed MDRD Study equation using the following parameters: serum creatinine, age, gender and race. The creatinine assay has been calibrated to be traceable to IDMS. An eGFR <60 mL/min/1.73m2 for >3 months is consistent with chronic kidney disease. Refer to KDOQI guidelines for clinical interpretation. In patients with unstable renal function, e.g. those with acute kidney injury, the eGFR may not accurately reflect actual GFR. Performed By: #### CBC, BMP, HBA1C #### [facility] [address] [id number] HEMOGLOBIN A1C Collected: 08/13/2017 Status: F Source: [place] 8:30 AM [facility] REPOSITORY TYPE CODE TESTS RESULT OUT OF REFERENCE UNITS RANGE LAB HGBA1C 4.3-5.6 % High Hemoglobin A1c 8.7 LAB HBA0 mg/dL Est. Average Glucose 203 Result Comment: eAG: (Estimated average glucose) is a calculated value from HgbA1c and is payroll representative of the average blood glucose level in the last 2-3 month period. Performed By: #### CBC, BMP, HBA1C #### [facility] [address] [place], [place] [address] URINALYSIS WITH Collected: 08/13/2017 Status: F Source: [facility] 8:30 AM [facility] REPOSITORY TYPE CODE TESTS RESULT OUT OF RANGE REFERENCE UNITS LAB UCOL Yellow Color Yellow LAB [facility] Clear Clarity Abnormal Cloudy Alert LAB UGLUC Negative mg/dL Glucose, Abnormal Urine >=500 Alert LAB UBIL Negative Bilirubin, Urine Negative LAB UKET Negative Ketones, Urine Negative LAB USPG 1.005-1.030 Specific Ethan, Ur 1.025 LAB UHGB Negative Hemoglobin/Blood, Negative Ur LAB UPH 4.5-8.0 pH 6.0 LAB UPROT Negative mg/dL Protein, Abnormal Urine 100 Alert LAB UUROB Normal Urobilinogen Normal LAB UNITR Negative Nitrites Negative LAB ULKEST Negative Leukest Negative LAB UCOM Comments SEE COMMENT Result Comment: N/A LAB UMCOM Urine SEE Robert Comment COMMENT Result Comment: N/A LAB UWBC 0-5 /HPF WBC 0-5 LAB URBC 0-3 /HPF RBC 0-3 LAB UEPI /HPF Epithelial SEE Cells COMMENT Result Comment: Few Squamous Epithelial Cells Performed By: #### UAWMIC #### [facility] [address] [id number] URGENT CARE VISIT Observed: 07/23/2017 Status: F Source: [place] RE[place] 12:02 PM [facility] REPOSITORY [facility] [address] [place] [address] 6 [place] [address] OFFICE VISIT Date of Service: 07/23/17 MR#: [id number] Acct: [id number] Name: JAROD LOONEY Zaina Rep #: [id number] : 1970 Provider: MARY Hylton Age/Sex: 46/F Location: [facility] Status: Signed Intake Vital Signs07/23/17 Height 5 ft 6 in Intake Visit Reasons: Sinus infection Chief Complaint: Sinus pressure and pain 10 days Is patient in pain?: No Allergies Penicillins Allergy (Verified 07/23/17 11:44) Swelling ropinirole HCl [From Requip] Allergy (Verified 07/23/17 11:44) Other Medications Atenolol [Tenormin] 25 mg PO DAILY 05/01/13 [History Confirmed 07/23/17] Gabapentin 300 mg PO QHS 05/01/13 [History Confirmed 07/23/17] Glimepiride [Amaryl] 2 mg PO DAILY 05/01/13 [History Confirmed 07/23/17] Losartan Potassium [Cozaar] 50 mg PO BID 05/01/13 [History Confirmed 07/23/17] Metformin HCl [Glucophage] 1,000 mg PO BID 05/01/13 [History Confirmed 07/23/17] Montelukast [Singulair] 10 mg PO DAILY 05/01/13 [History Confirmed 07/23/17] Niacin SA [Niaspan] 500 mg PO QHS 05/01/13 [History Confirmed 07/23/17] Ondansetron [Zofran Odt] 4 mg PO Q8H PRN PRN #10 tab 05/01/13 [Rx Confirmed 07/23/17] Pravastatin [Pravachol] 80 mg PO BID 05/01/13 [History Confirmed 07/23/17] Omeprazole [Prilosec] 40 mg PO DAILY #30 cap 05/09/13 [Rx Confirmed 07/23/17] fenofibrate nanocrystallized 145 mg tablet PO 30 Days #30 04/14/17 [History Confirmed 07/23/17] linaclotide 145 mcg capsule PO 90 Days #90 04/14/17 [History Confirmed 07/23/17] liraglutide 0.6 mg/0.1 mL (18 mg/3 mL) subcutaneous pen injector SC 90 Days #18 04/14/17 [History Confirmed 07/23/17] doxycycline monohydrate 100 mg capsule 100 mg PO Q12H 10 Days #20 cap 07/23/17 [Rx Confirmed 07/23/17] PFSH Medical History Diabetes (Acute) Hay fever (Acute) Kidney disease (Acute) Hypertension (Chronic) Social History Smoking Status: Current every day smoker alcohol intake: never HPI HPI Chief Complaint: Sinus pressure and pain 10 days Details: JAROD LOONEY, is a 46 F who presents to the office today for facial pain and headaches and sinus pressure. She has been taking [id number] decongestants ibuprofen and Tylenol without relief of symptoms. She states she is draining thick green thick nasal secretions. She reports a low-grade fever several days ago. She denies recent air travel ear pain or sore throat at this time. ROS Const Constitutional: Positive for headache(s) Eyes Eyes: No change in vision ENT ENT: Positive for nasal discharge, post nasal drip, sinus pressure, sinus pain, headache(s) and facial pain Resp Respiratory: No cough, chest congestion, shortness of breath or wheezing Cardio Cardiology: No chest pain at rest or chest pain with exertion Gastro GI: No abdominal pain, diarrhea, vomiting or nausea/dyspepsia Musc Musculoskeletal: No back pain Skin Skin: No rash or change in skin color Neuro Neurology: Positive for headache(s) Aller/Imm Allergy/Immunologic: No wheezing Exam HENMT Nose: nasal discharge purulent on the left Face and sinus: sinus tenderness Mouth: oral mucosae normal Teeth and gingiva: dentition normal, gingiva normal Throat: posterior oropharynx normal, tonsils normal Assessment AND Plan 1. Sinusitis J32.9 2. Acute maxillary sinusitis J01.00 Plan Patient was instructed to take the doxycycline as directed and complete the prescription. Keep well-hydrated. Continue decongestants and ibuprofen or Tylenol as needed. Return to the clinic if needed Plan Detail Other Medications New: Coding Level of Care Code Off vis,est,level 3 Diagnoses Sinusitis J32.9 Acute maxillary sinusitis J01.00 07/23/17 1202 <Electronically signed by Syl HERNANDEZ> Date Syl HERNANDEZ Cosigner Signature: Date (if applicable) CC: ANITA Observed: 07/06/2017 Status: COMPLETED Source: [place] 12:00 AM [facility] REPOSITORY Telephone (PHMEWO) JAROD LOONEY ([id number]) 1970 F Date Time Provider Department 07/06/17 YURI (PHARMACIST)EMILIANO During your visit today, we recorded the following information about you: DEO KAUR 07/06/2017 1:51 PM Signed Contacted patient in attempt to reschedule missed appointment on 07/05, M for patient with instructions to return PharmD call. Emiliano Welch, PharmD EMILIANO WELCH PHARMACIST 07/21/2017 8:35 AM Signed Addended by: YURI (PHARMACIST)EMILIANO on: 07/21/2017 08:35 AM Modules accepted: Orders Allergies As of Date: 07/06/2017 Noted Allergy Reaction PENICILLIN G 04/18/2013 7 - Swelling REQUIP (ROPINIROLE) 04/18/2013 14 - Other: See Comments Comments: seizures Date Reviewed: 06/02/2017 Reviewed by: Isabella Jenkins LPN - Fully Assessed Reason for Visit: Missed Appointment [1304] Primary Visit Diagnosis:Type 2 diabetes mellitus with diabetic nephropathy, with long-term current use of insulin (HCC) [E11.21, Z79.4] Other Visit Diagnosis:Essential hypertension [I10] Order(s):HGB A1C [UVFMS0V] Order #: [id number] FUTURE BASIC METABOLIC PNL [SQBMP] Order #: [id number] FUTURE Prescriptions as of 07/06/2017 Sig: X INSULIN DEGLUDEC (U-100) 100 * Inject 60 Units subcutaneousl* METFORMIN 1,000 MG TABLET take 1 tablet by mouth twice * NAPROXEN 500 MG TABLET Take 1 tablet by mouth twice * BLOOD SUGAR DIAGNOSTIC STRIPS Use as instructed OMEPRAZOLE 20 MG CAPSULE,SAYRA* Take 1 capsule by mouth daily* VENLAFAXINE ER 150 MG CAPSULE* Take 1 capsule by mouth once * GABAPENTIN 100 MG CAPSULE Take 1 capsule by mouth three* ATENOLOL 50 MG TABLET Take 1 tablet by mouth once d* AMLODIPINE 5 MG TABLET take 1 tablet by mouth once d* MONTELUKAST 10 MG TABLET Take 1 tablet by mouth daily * LINZESS 145 MCG CAPSULE take 1 capsule by mouth once * ATORVASTATIN 20 MG TABLET take 1 tablet by mouth once d* FENOFIBRATE NANOCRYSTALLIZED * Take 1 tablet by mouth once d* LIRAGLUTIDE 0.6 MG/0.1 ML (18* INJECT 1.8 MG SUBCUTANEOUSLY * LOSARTAN 100 MG TABLET Take 0.5 tablets by mouth onc* PEN NEEDLE, DIABETIC 31 GAUGE* Use one needle per dose. once* SYRINGE WITH NEEDLE, SAFETY 3* 1 mL once each week. ASPIRIN 81 MG TABLET,DELAYED * Take 1 tablet by mouth once d* LANCETS 28 GAUGE Test blood sugar(s) 2 daily. * Problem List As Of Date 07/06/2017 Noted Resolved Anxiety and depression [F41.9, F32.9] INVALID FOR* More... Hyperlipidemia [E78.5] INVALID FOR* More... Hypertension [I10] INVALID FOR* More... Fibromyalgia syndrome [M79.7] INVALID FOR* More... Tobacco abuse [Z72.0] INVALID FOR* More... 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 Proteinuria [R80.9] INVALID FOR* Tendinitis of thumb [M77.8] INVALID FOR* More... Raynaud's syndrome [I73.00] INVALID FOR* More... Irritable bowel syndrome with diarrhea [K58.0] INVALID FOR* Encounter Status:Closed by YURI (PHARMACIST)EMILIANO on 07/06/17 PROGRESS Observed: 06/02/2017 Status: COMPLETED Source: [place] 9:30 AM [facility] REPOSITORY O ID: [id number] Author: Emiliano Welch (Pharmacist) Service: (none) Author Type: Pharmacist Type: Progress Notes Filed: 06/02/2017 10:00 AM Note Text: Patient consents to pharmacy collaborative practice agreement. REASON FOR CONSULT: DM GOALS: A1c < 8% CONSULTING PROVIDER: Cindy Molina CNP Date of Consult: 04/2017 Jarod Looney is a 46 year old female was last seen in [facility] by PCP, Dr. MELYSSA MOBLEY MD on 10/01/16. Also seen by Cindy Molina CNP today Patient is presenting today for intiial pharmacotherapy management appointment for DM. At last provider visit (today) insulin detemir was increased (from 58 units daily to 30 units BID) INTERIM HISTORY: Reports doing well overall Has been on liraglutide for 7-8 years, thinks it might be wearing off its effect, has not seen weight loss, rather weight gain since starting insulin Current DM Medications: Metformin 1,000mg BID Liraglutide 1.8mg once daily Insulin detemir 30 untis BID Current HTN Medications: Amlodipine 5mg once daily Atenolol 50mg once daily Losartan 100mg once daily (take 0.5 tablet daily) Preventative Medications: ? On MANDY/ARB:Yes ? On Statin: Yes ? On ASA: Yes ROS: ? Patient denies CP, SOB, TATUM, blurred vision, dizziness or lightheadedness ? Patient denies symptoms of hypoglycemia (sweating, anxiety, palpitations, hunger, and tremor) ? Patient denies symptoms of hyperglycemia (polyuria, polydipsia, polyphagia) ? Patient denies potential medication adverse effects DIET/EXERCISE/SOCIAL Hx: No junk food at home, more fruits/veggies ? Breakfast: grape nuts or bran flakes ? Lunch: ham sandwich or salad ? Dinner: protein (steak or chicken); salazar stew ? Snacks: fruit and cheese ? Following Na restrictions: no ? Beverages: water, diet pop, coffee with splenda ? Exercise: very active ? Tobacco: 1/2 ppd ? Alcohol: occasional nonalcoholic ? Illicits: denies MEDICATIONS: ? Pill bottles are not present. ? Adherence: denies missed doses. ? [facility] ? Rx coverage: [employer] ? Affordability: no issues ? Diabetes supplies: One Touch ? Organization System: none ACTIVE PROBLEM LIST Anxiety and Depression Hyperlipidemia Hypertension Fibromyalgia Syndrome Tobacco Abuse Type 2 Diabetes Mellitus With Diabetic Nephropathy (Hcc) Proteinuria Tendinitis of Thumb Raynaud's Syndrome Irritable Bowel Syndrome With Diarrhea PAST MEDICAL HISTORY Diagnosis Date - De Quervain's tenosynovitis, bilateral - Diabetes (HCC) - Hypercholesterolemia - Raynaud's disease ALLERGIES Allergen Reactions - Penicillin G Swelling - Requip [Ropinirole] Other: See Comments seizures Current Outpatient Prescriptions: insulin detemir U-100 (LEVEMIR FLEXTOUCH U-100 INSULN) 100 unit/mL (3 mL) inpn injection Inject 30 Units subcutaneously twice daily. naproxen (NAPROSYN) 500 mg tablet Take 1 tablet by mouth twice daily as needed (for pain/inflammation). Take with food. blood sugar diagnostic (NEURONIXUCH ULTRA TEST) test strip Use as instructed omeprazole (PRILOSEC) 20 mg capsule Take 1 capsule by mouth daily before breakfast. venlafaxine XR (EFFEXOR XR) 150 mg 24 hr capsule Take 1 capsule by mouth once daily. gabapentin (NEURONTIN) 100 mg capsule Take 1 capsule by mouth three times daily. atenolol (TENORMIN) 50 mg tablet Take 1 tablet by mouth once daily. amLODIPine (NORVASC) 5 mg tablet take 1 tablet by mouth once daily montelukast (SINGULAIR) 10 mg tablet Take 1 tablet by mouth daily at bedtime. LINZESS 145 mcg cap take 1 capsule by mouth once daily atorvastatin (LIPITOR) 20 mg tablet take 1 tablet by mouth once daily fenofibrate nanocrystallized (TRICOR) 145 mg tablet Take 1 tablet by mouth once daily. Indications: hypertriglyceridemia liraglutide (VICTOZA 3-[place]) 0.6 mg/0.1 mL (18 mg/3 mL) pnij INJECT 1.8 MG SUBCUTANEOUSLY ONCE DAILY. metFORMIN (GLUCOPHAGE) 1,000 mg tablet Take 1 tablet by mouth twice daily with meals. losartan (COZAAR) 100 mg tablet Take 0.5 tablets by mouth once daily. insulin needles, DISPOSABLE, (PEN NEEDLE) 31 gauge x 5/16 ndle Use one needle per dose. once per day. dicyclomine (BENTYL) 10 mg capsule TAKE ONE CAPSULE BY MOUTH FOUR TIMES DAILY BEFORE MEALS AND AT BEDTIME guaiFENesin (COUGH CONTROL) 100 mg/5 mL syrup Take 10 mL by mouth three times daily as needed for Cough. RABEprazole (ACIPHEX) 20 mg tablet Take 1 tablet by mouth once daily. Syringe with Needle, Safety (3C SAFETY SYRINGE 25GX5/8) 3 mL 25 x 5/8 syrg 1 mL once each week. folic acid 1 mg tablet Take 1 tablet by mouth once daily. aspirin, enteric coated (ADULT LOW DOSE ASPIRIN) 81 mg EC tablet Take 1 tablet by mouth once daily. omega-3 fatty acids 1,000 mg cap Take 2 capsules by mouth twice daily. lancets (FREESTYLE LANCETS) 28 gauge misc Test blood sugar(s) 2 daily. Dx: E11.21. Insulin: No Ranitidine HCl 300 mg tablet Take 1 tablet by mouth daily at bedtime. loratadine (CLARITIN) 10 mg tablet Take 1 tablet by mouth once daily. No current facility-administered medications for this visit. Rx meds not listed in EPIC: none OTCs: none Herbals: none GLYCEMIC CONTROL: ? Glucometer present at visit: No ? SMBG?s: Checks 6am and 2hrs before lunch, 2 hours after dinner ? SMBG?s: Date Fasting AM 2 hr PP Before Lunch 2 hr PP Before Dinner 2 hr PP Bedtime 05/31 255 05/30 183 169 05/29 215 05/28 156 217 05/27 178 258 05/26 166 279 176 05/25 237 265 ? Hypoglycemia: no Last 3 Encounter BP Readings: Date: BP: 06/02/2017 138/88 05/25/2017 128/88 03/17/2017 120/80 Wt: 84.4 kg (186 lb) BMI: 30.95 kg/(m2) LABS Lab Results Component Value Date HBA1C 9.2 05/21/2017 HBA1C 7.7 09/25/2016 HBA1C 7.5 06/26/2016 CMP: Glucose 205 05/27/2017 BUN 12 05/27/2017 Creatinine 0.52 05/27/2017 Sodium 134 05/27/2017 Potassium 4.3 05/27/2017 Chloride 95 05/27/2017 CO2 24 05/27/2017 Protein, Total 6.8 05/21/2017 Albumin 4.3 05/21/2017 Calcium 10.1 05/27/2017 Alkaline Phosphatase 84 05/21/2017 Bilirubin, Total 0.2 05/21/2017 AST 14 05/21/2017 ALT 22 05/21/2017 Estimated Creatinine Clearance: 143.6 mL/min (based on Cr of 0.52). Last Lipid Panel Lab Results Component Value Date CHOL 171 05/21/2017 Lab Results Component Value Date HDL 29 05/21/2017 Lab Results Component Value Date LDL 76 05/21/2017 Lab Results Component Value Date TG 497 05/21/2017 Albumin/Creat Ratio (mg/g) Date Value 09/25/2016 231 (H) PHARMACOTHERAPY ASSESSMENT/PLAN: 1. Type 2 diabetes mellitus with diabetic nephropathy, with long-term current use of insulin ([facility]) - ICD9: 250.40, 583.81, V58.67, ICD10: E11.21, Z79.4 (primary diagnosis) A1c goal < 8%, patient is not at goal (9.2% on 05/21/17). FBGs not at goal and PPBGs data limited. Patient compliant with and tolerating current regimen. Insulin increased and split into BID dosing today by TELECINE OPERATOR. Will see if any change in BGs with this change before changing other therapies. Options are change liraglutide to dulaglutide and change detemir to a once daily long-acting insulin, covered by insurance. Renal fxn and LFTs WNL and appropriate for continued therapy ? CONTINUE insulin detemir 30 units BID (increased by RELIEF MATE today) ? CONTINUE liraglutide 1.8mg once daily and metformin 1,000mg BID ? Instructed patient to continue checking FBGs and PPBGs daily 2. Essential hypertension - ICD9: 401.9, ICD10: I10 BP goal < 140/90, pt is at goal on current therapy. Patient compliant with and tolerating current regimen. Will continue. Pulse, renal fxn and K+ WNL and appropriate for continued therapy. ? CONTINUE losartan 100mg, amlodipine 5mg, and atenolol 50mg once daily 3. Hyperlipidemia, unspecified hyperlipidemia type - ICD9: 272.4, ICD10: E78.5 Pt is on moderate statin intensity (indicated for high intensity d/t DM and ASCVD risk score 17%). Patient compliant with and tolerating current regimen. Will continue at this time and monitor lipids. LFTs and renal fxn WNL and appropriate for continued therapy ? CONTINUE atorvastatin 20mg once daily Health Maintenance issues addressed: DILATED RETINAL EXAM due on 07/03/2016 Patient is scheduled to see PCP 09/09/17. Entry Level Finance 07/11 Patient to return to clinic for PharmD f/u on 07/05. Patient verbalized understanding of instructions. Emiliano Welch, Amandeep, BCPS CNOV Observed: 06/02/2017 Status: COMPLETED Source: [place] 9:30 AM [facility] REPOSITORY Office Visit (PHMEWO) JAROD LOONEY ([id number]) 1970 F Date Time Provider Department 06/02/17 9:30 AM YURI (PHARMACIST)EMILIANO During your visit today, we recorded the following information about you: DEO KAUR 06/02/2017 10:00 AM Signed Patient consents to pharmacy collaborative practice agreement. REASON FOR CONSULT: DM GOALS: A1c ANDlt; 8% CONSULTING PROVIDER: Cindy Molina CNP Date of Consult: 04/2017 Jarod Mahajan Cayden is a 46 year old female was last seen in [facility] by PCP, Dr. MELYSSA MOBLEY MD on 10/01/16. Also seen by Cindy Molina CNP today Patient is presenting today for intiial pharmacotherapy management appointment for DM. At last provider visit (today) insulin detemir was increased (from 58 units daily to 30 units BID) INTERIM HISTORY: Reports doing well overall Has been on liraglutide for 7-8 years, thinks it might be wearing off its effect, has not seen weight loss, rather weight gain since starting insulin Current DM Medications: Metformin 1,000mg BID Liraglutide 1.8mg once daily Insulin detemir 30 untis BID Current HTN Medications: Amlodipine 5mg once daily Atenolol 50mg once daily Losartan 100mg once daily (take 0.5 tablet daily) Preventative Medications: ? On MANDY/ARB:Yes ? On Statin: Yes ? On ASA: Yes ROS: ? Patient denies CP, SOB, TATUM, blurred vision, dizziness or lightheadedness ? Patient denies symptoms of hypoglycemia (sweating, anxiety, palpitations, hunger, and tremor) ? Patient denies symptoms of hyperglycemia (polyuria, polydipsia, polyphagia) ? Patient denies potential medication adverse effects DIET/EXERCISE/SOCIAL Hx: No junk food at home, more fruits/veggies ? Breakfast: grape nuts or bran flakes ? Lunch: ham sandwich or salad ? Dinner: protein (steak or chicken); salazar stew ? Snacks: fruit and cheese ? Following Na restrictions: no ? Beverages: water, diet pop, coffee with splenda ? Exercise: very active ? Tobacco: 1/2 ppd ? Alcohol: occasional nonalcoholic ? Illicits: denies MEDICATIONS: ? Pill bottles are not present. ? Adherence: denies missed doses. ? [facility] ? Rx coverage: [employer] ? Affordability: no issues ? Diabetes supplies: One Touch ? Organization System: none ACTIVE PROBLEM LIST Anxiety and Depression Hyperlipidemia Hypertension Fibromyalgia Syndrome Tobacco Abuse Type 2 Diabetes Mellitus With Diabetic Nephropathy (Hcc) Proteinuria Tendinitis of Thumb Raynaud's Syndrome Irritable Bowel Syndrome With Diarrhea PAST MEDICAL HISTORY Diagnosis Date - De Quervain's tenosynovitis, bilateral - Diabetes (HCC) - Hypercholesterolemia - Raynaud's disease ALLERGIES Allergen Reactions - Penicillin G Swelling - Requip [Ropinirole] Other: See Comments seizures Current Outpatient Prescriptions: insulin detemir U-100 (LEVEMIR FLEXTOUCH U-100 INSULN) 100 unit/mL (3 mL) inpn injection Inject 30 Units subcutaneously twice daily. naproxen (NAPROSYN) 500 mg tablet Take 1 tablet by mouth twice daily as needed (for pain/inflammation). Take with food. blood sugar diagnostic (NEURONIXUCH ULTRA TEST) test strip Use as instructed omeprazole (PRILOSEC) 20 mg capsule Take 1 capsule by mouth daily before breakfast. venlafaxine XR (EFFEXOR XR) 150 mg 24 hr capsule Take 1 capsule by mouth once daily. gabapentin (NEURONTIN) 100 mg capsule Take 1 capsule by mouth three times daily. atenolol (TENORMIN) 50 mg tablet Take 1 tablet by mouth once daily. amLODIPine (NORVASC) 5 mg tablet take 1 tablet by mouth once daily montelukast (SINGULAIR) 10 mg tablet Take 1 tablet by mouth daily at bedtime. LINZESS 145 mcg cap take 1 capsule by mouth once daily atorvastatin (LIPITOR) 20 mg tablet take 1 tablet by mouth once daily fenofibrate nanocrystallized (TRICOR) 145 mg tablet Take 1 tablet by mouth once daily. Indications: hypertriglyceridemia liraglutide (VICTOZA 3-[place]) 0.6 mg/0.1 mL (18 mg/3 mL) pnij INJECT 1.8 MG SUBCUTANEOUSLY ONCE DAILY. metFORMIN (GLUCOPHAGE) 1,000 mg tablet Take 1 tablet by mouth twice daily with meals. losartan (COZAAR) 100 mg tablet Take 0.5 tablets by mouth once daily. insulin needles, DISPOSABLE, (PEN NEEDLE) 31 gauge x 5/16ANDquot; ndle Use one needle per dose. once per day. dicyclomine (BENTYL) 10 mg capsule TAKE ONE CAPSULE BY MOUTH FOUR TIMES DAILY BEFORE MEALS AND AT BEDTIME guaiFENesin (COUGH CONTROL) 100 mg/5 mL syrup Take 10 mL by mouth three times daily as needed for Cough. RABEprazole (ACIPHEX) 20 mg tablet Take 1 tablet by mouth once daily. Syringe with Needle, Safety (3CC SAFETY SYRINGE 25GX5/8ANDquot;) 3 mL 25 x 5/8ANDquot; syrg 1 mL once each week. folic acid 1 mg tablet Take 1 tablet by mouth once daily. aspirin, enteric coated (ADULT LOW DOSE ASPIRIN) 81 mg EC tablet Take 1 tablet by mouth once daily. omega-3 fatty acids 1,000 mg cap Take 2 capsules by mouth twice daily. lancets (FREESTYLE LANCETS) 28 gauge misc Test blood sugar(s) 2 daily. Dx: E11.21. Insulin: No Ranitidine HCl 300 mg tablet Take 1 tablet by mouth daily at bedtime. loratadine (CLARITIN) 10 mg tablet Take 1 tablet by mouth once daily. No current facility-administered medications for this visit. Rx meds not listed in EPIC: none OTCs: none Herbals: none GLYCEMIC CONTROL: ? Glucometer present at visit: No ? SMBG?s: Checks 6am and 2hrs before lunch, 2 hours after dinner ? SMBG?s: Date Fasting AM 2 hr PP Before Lunch 2 hr PP Before Dinner 2 hr PP Bedtime 05/31 255 05/30 183 169 05/29 215 05/28 156 217 05/27 178 258 05/26 166 279 176 05/25 237 265 ? Hypoglycemia: no Last 3 Encounter BP Readings: Date: BP: 06/02/2017 138/88 05/25/2017 128/88 03/17/2017 120/80 Wt: 84.4 kg (186 lb) BMI: 30.95 kg/(m2) LABS Lab Results Component Value Date HBA1C 9.2 05/21/2017 HBA1C 7.7 09/25/2016 HBA1C 7.5 06/26/2016 CMP: Glucose 205 05/27/2017 BUN 12 05/27/2017 Creatinine 0.52 05/27/2017 Sodium 134 05/27/2017 Potassium 4.3 05/27/2017 Chloride 95 05/27/2017 CO2 24 05/27/2017 Protein, Total 6.8 05/21/2017 Albumin 4.3 05/21/2017 Calcium 10.1 05/27/2017 Alkaline Phosphatase 84 05/21/2017 Bilirubin, Total 0.2 05/21/2017 AST 14 05/21/2017 ALT 22 05/21/2017 Estimated Creatinine Clearance: 143.6 mL/min (based on Cr of 0.52). Last Lipid Panel Lab Results Component Value Date CHOL 171 05/21/2017 Lab Results Component Value Date HDL 29 05/21/2017 Lab Results Component Value Date LDL 76 05/21/2017 Lab Results Component Value Date TG 497 05/21/2017 Albumin/Creat Ratio (mg/g) Date Value 09/25/2016 231 (H) PHARMACOTHERAPY ASSESSMENT/PLAN: 1. Type 2 diabetes mellitus with diabetic nephropathy, with long-term current use of insulin ([facility]) - ICD9: 250.40, 583.81, V58.67, ICD10: E11.21, Z79.4 (primary diagnosis) A1c goal ANDlt; 8%, patient is not at goal (9.2% on 05/21/17). FBGs not at goal and PPBGs data limited. Patient compliant with and tolerating current regimen. Insulin increased and split into BID dosing today by TELECINE OPERATOR. Will see if any change in BGs with this change before changing other therapies. Options are change liraglutide to dulaglutide and change detemir to a once daily long-acting insulin, covered by insurance. Renal fxn and LFTs WNL and appropriate for continued therapy ? CONTINUE insulin detemir 30 units BID (increased by RELIEF MATE today) ? CONTINUE liraglutide 1.8mg once daily and metformin 1,000mg BID ? Instructed patient to continue checking FBGs and PPBGs daily 2. Essential hypertension - ICD9: 401.9, ICD10: I10 BP goal ANDlt; 140/90, pt is at goal on current therapy. Patient compliant with and tolerating current regimen. Will continue. Pulse, renal fxn and K+ WNL and appropriate for continued therapy. ? CONTINUE losartan 100mg, amlodipine 5mg, and atenolol 50mg once daily 3. Hyperlipidemia, unspecified hyperlipidemia type - ICD9: 272.4, ICD10: E78.5 Pt is on moderate statin intensity (indicated for high intensity d/t DM and ASCVD risk score 17%). Patient compliant with and tolerating current regimen. Will continue at this time and monitor lipids. LFTs and renal fxn WNL and appropriate for continued therapy ? CONTINUE atorvastatin 20mg once daily Health Maintenance issues addressed: DILATED RETINAL EXAM due on 07/03/2016 Patient is scheduled to see PCP 09/09/17. Entry Level Finance 07/11 Patient to return to clinic for PharmD f/u on 07/05. Patient verbalized understanding of instructions. Emiliano Welch PharmD, [facility] EMILIANO WELCH, PHARMACIST 06/02/2017 9:36 AM Signed Thanks for coming in today! Things we talked about: ? Send Emiliano any medication updates ? Send sugars over Mychart in two weeks Thank you, Emiliano Welch PharmD, [facility] [phone] Referring Provider: CINDY MOLINA ([facility]) [[id number]] Allergies As of Date: 06/02/2017 Noted Allergy Reaction PENICILLIN G 04/18/2013 7 - Swelling REQUIP (ROPINIROLE) 04/18/2013 14 - Other: See Comments Comments: seizures Date Reviewed: 06/02/2017 Reviewed by: Isabella Jenkins LPN - Fully Assessed Reason for Visit: Allied Health Visit [5] Cmt: DM initial Primary Visit Diagnosis:Type 2 diabetes mellitus with diabetic nephropathy, with long-term current use of insulin (HCC) [E11.21, Z79.4] Other Visit Diagnoses:Essential hypertension [I10] Hyperlipidemia, unspecified hyperlipidemia type [E78.5] Prescriptions as of 06/02/2017 Sig: INSULIN DETEMIR (U-100) 100 U* Inject 30 Units subcutaneousl* NAPROXEN 500 MG TABLET Take 1 tablet by mouth twice * OMEPRAZOLE 20 MG CAPSULE,SAYRA* Take 1 capsule by mouth daily* VENLAFAXINE ER 150 MG CAPSULE* Take 1 capsule by mouth once * GABAPENTIN 100 MG CAPSULE Take 1 capsule by mouth three* ATENOLOL 50 MG TABLET Take 1 tablet by mouth once d* AMLODIPINE 5 MG TABLET take 1 tablet by mouth once d* MONTELUKAST 10 MG TABLET Take 1 tablet by mouth daily * LINZESS 145 MCG CAPSULE take 1 capsule by mouth once * ATORVASTATIN 20 MG TABLET take 1 tablet by mouth once d* FENOFIBRATE NANOCRYSTALLIZED * Take 1 tablet by mouth once d* LIRAGLUTIDE 0.6 MG/0.1 ML (18* INJECT 1.8 MG SUBCUTANEOUSLY * METFORMIN 1,000 MG TABLET Take 1 tablet by mouth twice * LOSARTAN 100 MG TABLET Take 0.5 tablets by mouth onc* ASPIRIN 81 MG TABLET,DELAYED * Take 1 tablet by mouth once d* BLOOD SUGAR DIAGNOSTIC STRIPS Use as instructed PEN NEEDLE, DIABETIC 31 GAUGE* Use one needle per dose. once* SYRINGE WITH NEEDLE, SAFETY 3* 1 mL once each week. LANCETS 28 GAUGE Test blood sugar(s) 2 daily. * Problem List As Of Date 06/02/2017 Noted Resolved Anxiety and depression [F41.8] INVALID FOR* More... Hyperlipidemia [E78.5] INVALID FOR* More... Hypertension [I10] INVALID FOR* More... Fibromyalgia syndrome [M79.7] INVALID FOR* More... Tobacco abuse [Z72.0] INVALID FOR* More... 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 Proteinuria [R80.9] INVALID FOR* Tendinitis of thumb [M77.8] INVALID FOR* More... Raynaud's syndrome [I73.00] INVALID FOR* More... Irritable bowel syndrome with diarrhea [K58.0] INVALID FOR* Other instructions from your clinician: Thanks for coming in today! Things we talked about: ? Send Emiliano any medication updates ? Send sugars over Yunno in two weeks Thank you, Emiliano Welch, PharmD, [facility] [phone] Medications Discontinued During This Encounter folic acid 1 mg tablet 30 t* 11 01/31/2015 06/02/2017 Route: ORAL Sig: Take 1 tablet by mouth once daily. Disc: Reason for discontinue is not on file. dicyclomine (BENTYL) 10 mg capsule 120 * 0 04/26/2016 06/02/2017 Sig: TAKE ONE CAPSULE BY MOUTH FOUR TIMES DAILY BEFORE MEALS AND AT BEDTIME Disc: Reason for discontinue is not on file. guaiFENesin (COUGH CONTROL) 100 mg/5* 120 * 0 07/01/2015 06/02/2017 Route: ORAL Sig: Take 10 mL by mouth three times daily as needed for Cough. Disc: Reason for discontinue is not on file. loratadine (CLARITIN) 10 mg tablet 30 t* 3 10/15/2014 06/02/2017 Route: ORAL Sig: Take 1 tablet by mouth once daily. Disc: Reason for discontinue is not on file. omega-3 fatty acids 1,000 mg cap 120 * 3 01/13/2015 06/02/2017 Class: Historical Med Route: ORAL Sig: Take 2 capsules by mouth twice daily. Disc: Reason for discontinue is not on file. RABEprazole (ACIPHEX) 20 mg tablet 30 t* 11 02/28/2015 06/02/2017 Route: ORAL Sig: Take 1 tablet by mouth once daily. Disc: Reason for discontinue is not on file. Ranitidine HCl 300 mg tablet 0 10/15/2014 06/02/2017 Class: Historical Med Route: ORAL Sig: Take 1 tablet by mouth daily at bedtime. Disc: Reason for discontinue is not on file. Encounter Status:Closed by YURI (PHARMACIST)EMILIANO on 06/02/17 PROGRESS Observed: 06/02/2017 Status: COMPLETED Source: [place] 8:04 AM [facility] REPOSITORY O ID: [id number] Author: Cindy Molina Service: (none) Author Type: Nurse Practitioner Type: Progress Notes Filed: 06/02/2017 8:28 AM Note Text: CC: Patient presents with: Recheck HPI Jarod Looney is a 46 year old female who presents today for DM follow up. DIABETES MELLITUS: Ms. Looney was last seen 1 week ago. Since our last visit she denies chest pain or dyspnea , numbness, tingling or pain in extremities, new or unusual visual symptoms, low sugar/hypoglycemic reactions, weight loss/gain, lightheadedness/dizziness and bowel changes/loose stools. Positive for fatigue and polydipsia Follows a diabetic diet most of the time. She is compliant with medication(s) and is tolerating med(s) without any side effects. She reports checking her glucose on a 2-3x per day schedule, evenings are usually the most difficult to obtain, with sugars in the 14 day average 150s- 270s range. Patient's last HgA1C was Hemoglobin A1C (%) Date Value 05/21/2017 9.2 09/25/2016 7.7 ) REVIEW OF SYSTEMS General: no fevers, no chills, no night sweats, no recurrent infections, no change in appetite and no significant changes in weight. +fatigue HEENT: no frequent or significant headaches, no changes in hearing, no visual changes, no nose bleeds, no sinus or nasal problems Respiratory: no cough, no wheezing, no shortness of breath, no hemoptysis Cardiovascular: no chest pain, no chest pressure, no palpitations and no swelling GI: No nausea, vomiting, or diarrhea Endocrine: no fatigue, no weight gain, no weight loss, no hair loss, no dry skin, no cold intolerance, no heat intolerance, no neck pain/pressure, no polyuria, no polyphagia and Positive for: polydipsia Neurologic: No headache, weakness, numbness, tingling, neck stiffness, tremor, vertigo, dizziness, memory loss, syncope. PAST MEDICAL HISTORY Diagnosis Date - De Quervain's tenosynovitis, bilateral - Diabetes (HCC) - Hypercholesterolemia - Raynaud's disease PAST SURGICAL HISTORY Procedure Laterality Date - CONE OF CERVIX LOOPELEC EXCIS - EXTRACTION ERUPTED TOOTH/EXR - HYSTERECTOMY HX precervical cancer, removed cervix - KNEE SURGERY HX 4x right and left x4 ALLERGIES Penicillin G; Requip [Ropinirole] MEDICATIONS insulin detemir U-100 (LEVEMIR FLEXTOUCH U-100 INSULN) 100 unit/mL (3 mL) inpn injection Inject 58 Units subcutaneously daily at bedtime. naproxen (NAPROSYN) 500 mg tablet Take 1 tablet by mouth twice daily as needed (for pain/inflammation). Take with food. blood sugar diagnostic ([employer] ULTRA TEST) test strip Use as instructed omeprazole (PRILOSEC) 20 mg capsule Take 1 capsule by mouth daily before breakfast. venlafaxine XR (EFFEXOR XR) 150 mg 24 hr capsule Take 1 capsule by mouth once daily. gabapentin (NEURONTIN) 100 mg capsule Take 1 capsule by mouth three times daily. atenolol (TENORMIN) 50 mg tablet Take 1 tablet by mouth once daily. amLODIPine (NORVASC) 5 mg tablet take 1 tablet by mouth once daily montelukast (SINGULAIR) 10 mg tablet Take 1 tablet by mouth daily at bedtime. LINZESS 145 mcg cap take 1 capsule by mouth once daily atorvastatin (LIPITOR) 20 mg tablet take 1 tablet by mouth once daily fenofibrate nanocrystallized (TRICOR) 145 mg tablet Take 1 tablet by mouth once daily. Indications: hypertriglyceridemia liraglutide (VICTOZA 3-[place]) 0.6 mg/0.1 mL (18 mg/3 mL) pnij INJECT 1.8 MG SUBCUTANEOUSLY ONCE DAILY. metFORMIN (GLUCOPHAGE) 1,000 mg tablet Take 1 tablet by mouth twice daily with meals. losartan (COZAAR) 100 mg tablet Take 0.5 tablets by mouth once daily. insulin needles, DISPOSABLE, (PEN NEEDLE) 31 gauge x 516 ndle Use one needle per dose. once per day. dicyclomine (BENTYL) 10 mg capsule TAKE ONE CAPSULE BY MOUTH FOUR TIMES DAILY BEFORE MEALS AND AT BEDTIME guaiFENesin (COUGH CONTROL) 100 mg/5 mL syrup Take 10 mL by mouth three times daily as needed for Cough. RABEprazole (ACIPHEX) 20 mg tablet Take 1 tablet by mouth once daily. Syringe with Needle, Safety (3CC SAFETY SYRINGE 25GX5/8) 3 mL 25 x 5/8 syrg 1 mL once each week. folic acid 1 mg tablet Take 1 tablet by mouth once daily. aspirin, enteric coated (ADULT LOW DOSE ASPIRIN) 81 mg EC tablet Take 1 tablet by mouth once daily. omega-3 fatty acids 1,000 mg cap Take 2 capsules by mouth twice daily. lancets (FREESTYLE LANCETS) 28 gauge misc Test blood sugar(s) 2 daily. Dx: E11.21. Insulin: No Ranitidine HCl 300 mg tablet Take 1 tablet by mouth daily at bedtime. loratadine (CLARITIN) 10 mg tablet Take 1 tablet by mouth once daily. FAMILY HISTORY Problem Relation Age of Onset - Hypertension Mother - Breast Cancer Mother - Breast Cancer Maternal Grandmother - Cervical Cancer Paternal Aunt - COPD Paternal Grandmother - Coronary Artery Disease Paternal Grandfather - Coronary Artery Disease Paternal Grandmother - Heart Paternal Aunt - raynaud [Other] [OTHER] Mother Social History Substance Use Topics - Smoking status: Current Every Day Smoker Packs/day: 0.50 Years: 21.00 Types: Cigarettes - Smokeless tobacco: Never Used - Alcohol use No PHYSICAL EXAM BP 146/86 (BP Site: Left Arm, BP Position: Sitting, BP Cuff Size: Regular Adult) Pulse 84 Resp 18 Wt 84.4 kg (186 lb) BMI 30.95 kg/m2 General Appearance: well appearing, in no acute distress, alert Pysch: mood and affect broad and appropriate Skin: Skin color, texture, turgor normal for age; Head: normocephalic, atraumatic Eyes: conjunctiva pink and moist, no icterus, sclera white, non-injected Lungs: Lungs clear to auscultation. No wheezing, rhonchi, rales Heart: RRR without murmur, gallop, or rubs. No ectopy MAMMOGRAM due on 04/29/2016 DILATED RETINAL EXAM due on 07/03/2016 INFLUENZA(1) due on 11/26/2016 DIABETIC FOOT EXAM due on 10/01/2017 HBA1C due on 11/18/2017 LDL due on 05/21/2018 URINE ALBUMIN CREATININE RATIO due on 05/27/2018 TETANUS due on 11/26/2018 PAP EVERY 5 YEARS due on 11/30/2018 HPV EVERY 5 YEARS due on 11/30/2018 ONE PNEUMOVAX PRIOR TO AGE 65 Completed ASSESSMENT/PLAN: 1. Type 2 diabetes mellitus with diabetic nephropathy, without long-term current use of insulin ([facility]) - ICD9: 250.40, 583.81, ICD10: E11.21 uncontrolled - Increase Levemir to 30units BID - Blood glucose monitoring on a 2-3x per day schedule - Referral to Nutrition consult for Diabetes diet education - Encouraged regular aerobic exercise and weight loss - Follow up in 3 months, sooner should any other issues arise. - INSULIN DETEMIR (U-100) 100 UNIT/ML (3 ML) SUBCUTANEOUS PEN - CONSULT TO NUTRITION THERAPY Prescription instructions reviewed with patient as applicable. Potential red flag symptoms discussed with the patient. Reviewed appropriate action plan to take if red flag symptoms occur. Patient agreeable to treatment plan. Cindy Molina CNP CNOV Observed: 06/02/2017 Status: COMPLETED Source: [place] 8:00 AM [facility] REPOSITORY Office Visit (INTMWS) JAROD LOONEY ([id number]) 1970 F Date Time Provider Department 06/02/17 8:00 AM CINDY MOLINA (RAOU[facility]) INTMWS During your visit today, we recorded the following information about you: Pulse Respiration Blood pressure Weight 84/minute 18/minute 138/88 84.4 kg Cindy Molina CNP 06/02/2017 8:28 AM Signed CC: Patient presents with: Recheck HPI Jarod Mahajan Cayden is a 46 year old female who presents today for DM follow up. DIABETES MELLITUS: Ms. Looney was last seen 1 week ago. Since our last visit she denies chest pain or dyspnea , numbness, tingling or pain in extremities, new or unusual visual symptoms, low sugar/hypoglycemic reactions, weight loss/gain, lightheadedness/dizziness and bowel changes/loose stools. Positive for fatigue and polydipsia Follows a diabetic diet most of the time. She is compliant with medication(s) and is tolerating med(s) without any side effects. She reports checking her glucose on a 2-3x per day schedule, evenings are usually the most difficult to obtain, with sugars in the 14 day average 150s-270s range. Patient's last HgA1C was Hemoglobin A1C (%) Date Value 05/21/2017 9.2 09/25/2016 7.7 ) REVIEW OF SYSTEMS General: no fevers, no chills, no night sweats, no recurrent infections, no change in appetite and no significant changes in weight. +fatigue HEENT: no frequent or significant headaches, no changes in hearing, no visual changes, no nose bleeds, no sinus or nasal problems Respiratory: no cough, no wheezing, no shortness of breath, no hemoptysis Cardiovascular: no chest pain, no chest pressure, no palpitations and no swelling GI: No nausea, vomiting, or diarrhea Endocrine: no fatigue, no weight gain, no weight loss, no hair loss, no dry skin, no cold intolerance, no heat intolerance, no neck pain/pressure, no polyuria, no polyphagia and Positive for: polydipsia Neurologic: No headache, weakness, numbness, tingling, neck stiffness, tremor, vertigo, dizziness, memory loss, syncope. PAST MEDICAL HISTORY Diagnosis Date - De Quervain's tenosynovitis, bilateral - Diabetes (HCC) - Hypercholesterolemia - Raynaud's disease PAST SURGICAL HISTORY Procedure Laterality Date - CONE OF CERVIX LOOPELEC EXCIS - EXTRACTION ERUPTED TOOTH/EXR - HYSTERECTOMY HX precervical cancer, removed cervix - KNEE SURGERY HX 4x right and left x4 ALLERGIES Penicillin G; Requip [Ropinirole] MEDICATIONS insulin detemir U-100 (LEVEMIR FLEXTOUCH U-100 INSULN) 100 unit/mL (3 mL) inpn injection Inject 58 Units subcutaneously daily at bedtime. naproxen (NAPROSYN) 500 mg tablet Take 1 tablet by mouth twice daily as needed (for pain/inflammation). Take with food. blood sugar diagnostic ([employer] ULTRA TEST) test strip Use as instructed omeprazole (PRILOSEC) 20 mg capsule Take 1 capsule by mouth daily before breakfast. venlafaxine XR (EFFEXOR XR) 150 mg 24 hr capsule Take 1 capsule by mouth once daily. gabapentin (NEURONTIN) 100 mg capsule Take 1 capsule by mouth three times daily. atenolol (TENORMIN) 50 mg tablet Take 1 tablet by mouth once daily. amLODIPine (NORVASC) 5 mg tablet take 1 tablet by mouth once daily montelukast (SINGULAIR) 10 mg tablet Take 1 tablet by mouth daily at bedtime. LINZESS 145 mcg cap take 1 capsule by mouth once daily atorvastatin (LIPITOR) 20 mg tablet take 1 tablet by mouth once daily fenofibrate nanocrystallized (TRICOR) 145 mg tablet Take 1 tablet by mouth once daily. Indications: hypertriglyceridemia liraglutide (VICTOZA 3-[place]) 0.6 mg/0.1 mL (18 mg/3 mL) pnij INJECT 1.8 MG SUBCUTANEOUSLY ONCE DAILY. metFORMIN (GLUCOPHAGE) 1,000 mg tablet Take 1 tablet by mouth twice daily with meals. losartan (COZAAR) 100 mg tablet Take 0.5 tablets by mouth once daily. insulin needles, DISPOSABLE, (PEN NEEDLE) 31 gauge x 5/16ANDquot; ndle Use one needle per dose. once per day. dicyclomine (BENTYL) 10 mg capsule TAKE ONE CAPSULE BY MOUTH FOUR TIMES DAILY BEFORE MEALS AND AT BEDTIME guaiFENesin (COUGH CONTROL) 100 mg/5 mL syrup Take 10 mL by mouth three times daily as needed for Cough. RABEprazole (ACIPHEX) 20 mg tablet Take 1 tablet by mouth once daily. Syringe with Needle, Safety (C SAFETY SYRINGE 25GX5/8ANDquot;) 3 mL 25 x 5/8ANDquot; syrg 1 mL once each week. folic acid 1 mg tablet Take 1 tablet by mouth once daily. aspirin, enteric coated (ADULT LOW DOSE ASPIRIN) 81 mg EC tablet Take 1 tablet by mouth once daily. omega-3 fatty acids 1,000 mg cap Take 2 capsules by mouth twice daily. lancets (FREESTYLE LANCETS) 28 gauge [facility] [place] Test blood sugar(s) 2 daily. Dx: E11.21. Insulin: No Ranitidine HCl 300 mg tablet Take 1 tablet by mouth daily at bedtime. loratadine (CLARITIN) 10 mg tablet Take 1 tablet by mouth once daily. FAMILY HISTORY Problem Relation Age of Onset - Hypertension Mother - Breast Cancer Mother - Breast Cancer Maternal Grandmother - Cervical Cancer Paternal Aunt - COPD Paternal Grandmother - Coronary Artery Disease Paternal Grandfather - Coronary Artery Disease Paternal Grandmother - Heart Paternal Aunt - raynaud [Other] [OTHER] Mother Social History Substance Use Topics - Smoking status: Current Every Day Smoker Packs/day: 0.50 Years: 21.00 Types: Cigarettes - Smokeless tobacco: Never Used - Alcohol use No PHYSICAL EXAM BP 146/86 (BP Site: Left Arm, BP Position: Sitting, BP Cuff Size: Regular Adult) Pulse 84 Resp 18 Wt 84.4 kg (186 lb) BMI 30.95 kg/m2 General Appearance: well appearing, in no acute distress, alert Pysch: mood and affect broad and appropriate Skin: Skin color, texture, turgor normal for age; Head: normocephalic, atraumatic Eyes: conjunctiva pink and moist, no icterus, sclera white, non-injected Lungs: Lungs clear to auscultation. No wheezing, rhonchi, rales Heart: RRR without murmur, gallop, or rubs. No ectopy MAMMOGRAM due on 04/29/2016 DILATED RETINAL EXAM due on 07/03/2016 INFLUENZA(1) due on 11/26/2016 DIABETIC FOOT EXAM due on 10/01/2017 HBA1C due on 11/18/2017 LDL due on 05/21/2018 URINE ALBUMIN CREATININE RATIO due on 05/27/2018 TETANUS due on 11/26/2018 PAP EVERY 5 YEARS due on 11/30/2018 HPV EVERY 5 YEARS due on 11/30/2018 ONE PNEUMOVAX PRIOR TO AGE 65 Completed ASSESSMENT/PLAN: 1. Type 2 diabetes mellitus with diabetic nephropathy, without long-term current use of insulin (HCC) - ICD9: 250.40, 583.81, ICD10: E11.21 uncontrolled - Increase Levemir to 30units BID - Blood glucose monitoring on a 2-3x per day schedule - Referral to Nutrition consult for Diabetes diet education - Encouraged regular aerobic exercise and weight loss - Follow up in 3 months, sooner should any other issues arise. - INSULIN DETEMIR (U-100) 100 UNIT/ML (3 ML) SUBCUTANEOUS PEN - CONSULT TO NUTRITION THERAPY Prescription instructions reviewed with patient as applicable. Potential red flag symptoms discussed with the patient. Reviewed appropriate action plan to take if red flag symptoms occur. Patient agreeable to treatment plan. RAOUL Baez CNP 06/02/2017 8:18 AM Signed Start taking Levemir 30units twice daily. Continue checking blood sugars at least 2 times per day. Ideally 3 times per day and document on sheet provided. Appointment with dietitian if able. Referring Provider: CINDY MOLINA ([facility]) [[id number]] Allergies As of Date: 06/02/2017 Noted Allergy Reaction PENICILLIN G 04/18/2013 7 - Swelling REQUIP (ROPINIROLE) 04/18/2013 14 - Other: See Comments Comments: seizures Date Reviewed: 06/02/2017 Reviewed by: Isabella Jenkins LPN - Fully Assessed Reason for Visit: Recheck [92] Visit Diagnosis:Type 2 diabetes mellitus with diabetic nephropathy, without long-term current use of insulin ([facility]) [E11.21] Order(s):insulin detemir U-100 (LEVEMIR FLEXTOUCH U-100 INSULN) 100 unit/mL (3 mL) inpn injectionInject 30 Units subcutaneously twice daily.Disp: 5 PenRfl: 0 CONSULT TO NUTRITION THERAPY [9020] Order #: [id number]: 1 Prescriptions as of 06/02/2017 Sig: INSULIN DETEMIR (U-100) 100 U* Inject 30 Units subcutaneousl* NAPROXEN 500 MG TABLET Take 1 tablet by mouth twice * BLOOD SUGAR DIAGNOSTIC STRIPS Use as instructed OMEPRAZOLE 20 MG CAPSULE,SAYRA* Take 1 capsule by mouth daily* VENLAFAXINE ER 150 MG CAPSULE* Take 1 capsule by mouth once * GABAPENTIN 100 MG CAPSULE Take 1 capsule by mouth three* ATENOLOL 50 MG TABLET Take 1 tablet by mouth once d* AMLODIPINE 5 MG TABLET take 1 tablet by mouth once d* MONTELUKAST 10 MG TABLET Take 1 tablet by mouth daily * LINZESS 145 MCG CAPSULE take 1 capsule by mouth once * ATORVASTATIN 20 MG TABLET take 1 tablet by mouth once d* FENOFIBRATE NANOCRYSTALLIZED * Take 1 tablet by mouth once d* LIRAGLUTIDE 0.6 MG/0.1 ML (18* INJECT 1.8 MG SUBCUTANEOUSLY * METFORMIN 1,000 MG TABLET Take 1 tablet by mouth twice * LOSARTAN 100 MG TABLET Take 0.5 tablets by mouth onc* PEN NEEDLE, DIABETIC 31 GAUGE* Use one needle per dose. once* DICYCLOMINE 10 MG CAPSULE TAKE ONE CAPSULE BY MOUTH FOU* GUAIFENESIN 100 MG/5 ML ORAL * Take 10 mL by mouth three dangelo* RABEPRAZOLE 20 MG TABLET,SAYRA* Take 1 tablet by mouth once d* SYRINGE WITH NEEDLE, SAFETY 3* 1 mL once each week. FOLIC ACID 1 MG TABLET Take 1 tablet by mouth once d* ASPIRIN 81 MG TABLET,DELAYED * Take 1 tablet by mouth once d* OMEGA-3 FATTY ACIDS 1,000 MG * Take 2 capsules by mouth twic* LANCETS 28 GAUGE Test blood sugar(s) 2 daily. * RANITIDINE 300 MG TABLET Take 1 tablet by mouth daily * LORATADINE 10 MG TABLET Take 1 tablet by mouth once d* Problem List As Of Date 06/02/2017 Noted Resolved Anxiety and depression [F41.8] INVALID FOR* More... Hyperlipidemia [E78.5] INVALID FOR* More... Hypertension [I10] INVALID FOR* More... Fibromyalgia syndrome [M79.7] INVALID FOR* More... Tobacco abuse [Z72.0] INVALID FOR* More... 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 Proteinuria [R80.9] INVALID FOR* Tendinitis of thumb [M77.8] INVALID FOR* More... Raynaud's syndrome [I73.00] INVALID FOR* More... Irritable bowel syndrome with diarrhea [K58.0] INVALID FOR* Other instructions from your clinician: Start taking Levemir 30units twice daily. Continue checking blood sugars at least 2 times per day. Ideally 3 times per day and document on sheet provided. Appointment with dietitian if able. Prescriptions ordered this encounter Disp Refills Start End INSULIN DETEMIR (U-100) 100 UNIT/ML * 5 Pen 0 06/02/2017 Class: Med Update Route: SUBCUTANEOUS Sig: Inject 30 Units subcutaneously twice daily. Medications Discontinued During This Encounter insulin detemir U-100 (LEVEMIR FLEXT* 5 Pen 2 05/26/2017 06/02/2017 Class: Med Update Route: SUBCUTANEOUS Sig: Inject 58 Units subcutaneously daily at bedtime. Disc: Reason for discontinue is not on file. Encounter Status:Closed by CINDY MOLINA CNP on 06/02/17 CREATININE,URINE,RAN Collected: Status: F Source: [place] 05/27/2017 8:13 AM [facility] REPOSITORY TYPE CODE TESTS RESULT OUT OF RANGE REFERENCE UNITS LAB RR 20-300 mg/dL 48.8 Creatinine,U mitra,Tony Performed By: #### UCRR #### [facility] [address] [place], [place] [address] BASIC METABOLIC PANL Collected: 05/27/2017 Status: F Source: [place] 8:10 AM [facility] REPOSITORY TYPE CODE TESTS RESULT OUT OF REFERENCE UNITS RANGE LAB GLU 74-99 mg/dL High Glucose 205 Result Comment: The [place] Diabetes Association (ADA) provides guidance for cutoff values for fasting glucose and random glucose. The ADA defines fasting as no caloric intake for at least 8 hours. Fas ting plasma glucose results between 100 to 125 mg/dL indicate increased risk for diabetes (prediabetes). Fasting plasma glucose results greater than or equal to 126 mg/dL meet the criteria for diagnosis of diabetes. In the absence of unequivocal hyperglycemia, results should be confirmed by repeat testing. In a patient with classic symptoms of hyperglycemia or hyperglycemic crisis, random plasma glucose results greater than or equal to 200 mg/dL meet the criteria for diagnosis of diabetes. Reference: Standards of Medical Care in Diabetes 2016, [place] [employer] Association. Diabetes Care. 2016.39(Suppl 1). LAB BUN 7-21 mg/dL BUN 12 LAB CRET 0.58-0.96 mg/dL Creatinine Low 0.52 LAB NA 136-144 mmol/L Sodium Low 134 LAB K 3.7-5.1 mmol/L Potassium 4.3 LAB CL 97-105 mmol/L Chloride Low 95 LAB CO2 22-30 mmol/L CO2 24 LAB AGAP 9-18 mmol/L Anion Gap 15 LAB CA 8.5-10.2 mg/dL Calcium, Total 10.1 LAB GFRAA eGFR- Amer. >60 LAB GFRNAA . eGFR-All Other Races >60 Result Comment: eGFR (Estimated GFR) Units of measure: mL/min/1.73 meters squared eGFR is derived from the reexpressed MDRD Study equation using the following parameters: serum creatinine, age, gender and race. The creatinine assay has been calibrated to be traceable to IDMS. An eGFR <60 mL/min/1.73m2 for >3 months is consistent with chronic kidney disease. Refer to KDOQI guidelines for clinical interpretation. In patients with unstable renal function, e.g. those with acute kidney injury, the eGFR may not accurately reflect actual GFR. Performed By: #### BMP #### [facility] [address] [place], [place] [address] URINALYSIS WITH Collected: 05/25/2017 Status: F Source: [place] MICROSCOPIC 9:47 AM [facility] REPOSITORY TYPE CODE TESTS RESULT OUT OF RANGE REFERENCE UNITS LAB UCOL Yellow Color Yellow LAB [facility] Clear Clarity Clear LAB UGLUC Negative mg/dL Glucose, Abnormal Urine >=500 Alert LAB UBIL Negative Bilirubin, Urine Negative LAB UKET Negative Ketones, Urine Negative LAB USPG 1.005-1.030 Specific Ethan, Ur 1.018 LAB UHGB Negative Hemoglobin/Blood, Negative Ur LAB UPH 4.5-8.0 pH 6.0 LAB UPROT Negative mg/dL Protein, Abnormal Urine 100 Alert LAB UUROB Normal Urobilinogen Normal LAB UNITR Negative Nitrites Negative LAB ULKEST Negative Leukest Negative LAB UCOM Comments SEE COMMENT Result Comment: N/A LAB UMCOM Urine SEE Robert Comment COMMENT Result Comment: N/A LAB UWBC 0-5 /HPF WBC 0-5 LAB URBC 0-3 /HPF RBC 0-3 LAB UEPI /HPF Epithelial SEE Cells COMMENT Result Comment: Few Squamous Epithelial Cells Performed By: #### UAWMIC #### [facility] [address] [place], [place] [address] PROGRESS Observed: 05/25/2017 Status: COMPLETED Source: [place] 8:13 AM [facility] REPOSITORY HNO ID: [id number] Author: Cindy Molina Service: (none) Author Type: Nurse Practitioner Type: Progress Notes Filed: 05/25/2017 9:09 AM Note Text: CC: Patient presents with: Diabetes: elevated blood sugars HPI Jarod Looney is a 46 year old female who presents today for elevated blood sugars over the past ~6 months. Patient states she was started on Levamir in November 2016 and since then she has been experiencing high blood sugars. Patient notes she has been having consistent episodes of diaphoresis and states she knows her sugars are high. She is unable to check her sugars more than once a day typically d/t insurance coverage of her strips. She was last seen on 03/17/17. Since our last visit she denies chest pain or dyspnea , numbness, tingling or pain in extremities, low sugar/hypoglycemic reactions, lightheadedness/dizziness, bowel changes/loose stools. Follows a diabetic diet most of the time. Reports eating 3 meals a day. Increased her fruit and protein intake and reduced her red meat consumption d/t cholesterol. She is compliant with medication(s) and is tolerating med(s) without any side effects. She reports checking her glucose on a once a day schedule with sugars in the fasting >200 range. Patient's last HgA1C was Hemoglobin A1C (%) Date Value 05/21/2017 9.2 09/25/2016 7.7 ) Last Ophthalmology exam was over a year ago. REVIEW OF SYSTEMS General: no fevers, no chills, no night sweats, no recurrent infections, no change in appetite and no change in energy. + weight gain ~8 lbs HEENT: no frequent or significant headaches, no changes in hearing, no nose bleeds, no sinus or nasal problems Neck: no lumps, no pain and no swelling Respiratory: no cough, no wheezing, no shortness of breath, no hemoptysis Cardiovascular: no chest pain, no chest pressure, no palpitations and no swelling GI: No nausea, vomiting, or diarrhea : No history of dysuria, frequency or incontinence Endocrine: no weight loss, no hair loss, no dry skin, no cold intolerance, no heat intolerance, no neck pain/pressure, no polyuria + polyuria and polyphagia Neurologic: No headache, weakness, numbness, tingling, neck stiffness, tremor, vertigo, dizziness, memory loss, syncope. PAST MEDICAL HISTORY Diagnosis Date - De Quervain's tenosynovitis, bilateral - Diabetes (HCC) - Hypercholesterolemia - Raynaud's disease PAST SURGICAL HISTORY Procedure Laterality Date - CONE OF CERVIX LOOPELEC EXCIS - EXTRACTION ERUPTED TOOTH/EXR - HYSTERECTOMY HX precervical cancer, removed cervix - KNEE SURGERY HX 4x right and left x4 ALLERGIES Penicillin G; Requip [Ropinirole] MEDICATIONS naproxen (NAPROSYN) 500 mg tablet Take 1 tablet by mouth twice daily as needed (for pain/inflammation). Take with food. insulin detemir U-100 (LEVEMIR FLEXTOUCH U-100 INSULN) 100 unit/mL (3 mL) inpn injection Inject 53 Units subcutaneously daily at bedtime. omeprazole (PRILOSEC) 20 mg capsule Take 1 capsule by mouth daily before breakfast. venlafaxine XR (EFFEXOR XR) 150 mg 24 hr capsule Take 1 capsule by mouth once daily. gabapentin (NEURONTIN) 100 mg capsule Take 1 capsule by mouth three times daily. atenolol (TENORMIN) 50 mg tablet Take 1 tablet by mouth once daily. amLODIPine (NORVASC) 5 mg tablet take 1 tablet by mouth once daily montelukast (SINGULAIR) 10 mg tablet Take 1 tablet by mouth daily at bedtime. LINZESS 145 mcg cap take 1 capsule by mouth once daily atorvastatin (LIPITOR) 20 mg tablet take 1 tablet by mouth once daily fenofibrate nanocrystallized (TRICOR) 145 mg tablet Take 1 tablet by mouth once daily. Indications: hypertriglyceridemia liraglutide (VICTOZA 3-[place]) 0.6 mg/0.1 mL (18 mg/3 mL) pnij INJECT 1.8 MG SUBCUTANEOUSLY ONCE DAILY. metFORMIN (GLUCOPHAGE) 1,000 mg tablet Take 1 tablet by mouth twice daily with meals. losartan (COZAAR) 100 mg tablet Take 0.5 tablets by mouth once daily. aspirin, enteric coated (ADULT LOW DOSE ASPIRIN) 81 mg EC tablet Take 1 tablet by mouth once daily. insulin needles, DISPOSABLE, (PEN NEEDLE) 31 gauge x 5/16 ndle Use one needle per dose. once per day. dicyclomine (BENTYL) 10 mg capsule TAKE ONE CAPSULE BY MOUTH FOUR TIMES DAILY BEFORE MEALS AND AT BEDTIME guaiFENesin (COUGH CONTROL) 100 mg/5 mL syrup Take 10 mL by mouth three times daily as needed for Cough. RABEprazole (ACIPHEX) 20 mg tablet Take 1 tablet by mouth once daily. Syringe with Needle, Safety ([facility] SAFETY SYRINGE 25GX5/8) 3 mL 25 x 5/8 syrg 1 mL once each week. folic acid 1 mg tablet Take 1 tablet by mouth once daily. omega-3 fatty acids 1,000 mg cap Take 2 capsules by mouth twice daily. blood sugar diagnostic (FREESTYLE LITE STRIPS) test strip Test blood sugar(s) 2 daily. Dx: E11.21. Insulin: No lancets (FREESTYLE LANCETS) 28 gauge misc Test blood sugar(s) 2 daily. Dx: E11.21. Insulin: No Ranitidine HCl 300 mg tablet Take 1 tablet by mouth daily at bedtime. loratadine (CLARITIN) 10 mg tablet Take 1 tablet by mouth once daily. FAMILY HISTORY Problem Relation Age of Onset - Hypertension Mother - Breast Cancer Mother - Breast Cancer Maternal Grandmother - Cervical Cancer Paternal Aunt - COPD Paternal Grandmother - Coronary Artery Disease Paternal Grandfather - Coronary Artery Disease Paternal Grandmother - Heart Paternal Aunt - raynaud [Other] [OTHER] Mother Social History Substance Use Topics - Smoking status: Current Every Day Smoker Packs/day: 0.50 Years: 21.00 Types: Cigarettes - Smokeless tobacco: Never Used - Alcohol use No PHYSICAL EXAM BP 128/88 Pulse 76 Resp 16 Wt 84.4 kg (186 lb) BMI 30.95 kg/m2 General Appearance: well appearing, in no acute distress, alert Skin: Skin color, texture, turgor normal for age; Head: normocephalic, atraumatic Eyes: PERRLA, EOM's intact, conjunctiva pink and moist, no icterus, sclera white, non-injected Lungs: Lungs clear to auscultation. No wheezing, rhonchi, rales Heart: RRR without murmur, gallop, or rubs. No ectopy Abdomen: Abdomen soft, non-tender. Bowel sounds normal. No masses, organomegaly Ext: no edema in LE bilaterally, good distal pulses MAMMOGRAM due on 04/29/2016 DILATED RETINAL EXAM due on 07/03/2016 INFLUENZA(1) due on 11/26/2016 URINE ALBUMIN CREATININE RATIO due on 09/25/2017 DIABETIC FOOT EXAM due on 10/01/2017 HBA1C due on 11/18/2017 LDL due on 05/21/2018 TETANUS due on 11/26/2018 PAP EVERY 5 YEARS due on 11/30/2018 HPV EVERY 5 YEARS due on 11/30/2018 ONE PNEUMOVAX PRIOR TO AGE 65 Completed ASSESSMENT/PLAN: 1. Uncontrolled type 2 diabetes mellitus without complication, without long-term current use of insulin (HCC) - ICD9: 250.02, ICD10: E11.65 (primary diagnosis) uncontrolled - Continue current medications, consider changing insulin regimen or split dosing. Would like to obtain accurate blood glucose readings 3x per day for the next week before adjusting insulin. Patient only checking fasting glucose once daily. - Check HgA1C, fasting lipid panel and CMP- reviewed, Urine analysis - Blood glucose monitoring on a three times a day schedule - Referral to Clinical Pharmacist - Encouraged regular aerobic exercise and weight loss - Follow up in 1 week, sooner should any other issues arise. - BLOOD SUGAR DIAGNOSTIC STRIPS - URINALYSIS WITH MICROSCOPIC 2. Blood glucose elevated - ICD9: 790.29, ICD10: R73.9 - Plan as above, see #1 - ECG COMPLETE W INTERPRETATION - UA DIP B/O - CONSULT TO PHARMACY - URINALYSIS WITH MICROSCOPIC 3. Glucosuria - ICD9: 791.5, ICD10: R81 - URINALYSIS WITH MICROSCOPIC - Further management to be determined by laboratory results 4. Screening mammogram, encounter for - ICD9: V76.12, ICD10: Z12.31 - Encouraged monthly BSE - TORRI SCREENING Prescription instructions reviewed with patient as applicable. Potential red flag symptoms discussed with the patient. Reviewed appropriate action plan to take if red flag symptoms occur. Patient agreeable to treatment plan. Cindy Molina CNP HEMOGLOBIN A1C Collected: 05/21/2017 Status: F Source: [place] 8:08 AM [facility] REPOSITORY TYPE CODE TESTS RESULT OUT OF REFERENCE UNITS RANGE LAB HGBA1C 4.3-5.6 % High Hemoglobin A1c 9.2 LAB HBA0 mg/dL Est. Average Glucose 217 Result Comment: eAG: (Estimated average glucose) is a calculated value from HgbA1c and is payroll representative of the average blood glucose level in the last 2-3 month period. Performed By: #### HBA1C, CMP, LIPB, LDLDCT #### [facility] [address] [address] COMP METABOLIC PANEL Collected: 05/21/2017 Status: F Source: [place] 8:08 AM [facility] REPOSITORY TYPE CODE TESTS RESULT OUT OF REFERENCE UNITS RANGE LAB TP 6.3-8.0 g/dL Protein, Total 6.8 LAB ALB 3.9-4.9 g/dL Albumin 4.3 LAB CA 8.5-10.2 mg/dL Calcium, Total 9.5 LAB TBIL 0.2-1.3 mg/dL Bilirubin, Total 0.2 LAB ALKP 32-117 U/L Alkaline Phosphatase 84 LAB AST 13-35 U/L AST 14 LAB GLU 74-99 mg/dL Glucose High 186 Result Comment: The [place] Diabetes Association (ADA) provides guidance for cutoff values for fasting glucose and random glucose. The ADA defines fasting as no caloric intake for at least 8 hours. Fas ting plasma glucose results between 100 to 125 mg/dL indicate increased risk for diabetes (prediabetes). Fasting plasma glucose results greater than or equal to 126 mg/dL meet the criteria for diagnosis of diabetes. In the absence of unequivocal hyperglycemia, results should be confirmed by repeat testing. In a patient with classic symptoms of hyperglycemia or hyperglycemic crisis, random plasma glucose results greater than or equal to 200 mg/dL meet the criteria for diagnosis of diabetes. Reference: Standards of Medical Care in Diabetes 2016, [place] [employer] Association. Diabetes Care. 2016.39(Suppl 1). LAB BUN 7-21 mg/dL BUN 9 LAB CRET 0.58-0.96 mg/dL Creatinine Low 0.52 LAB NA 136-144 mmol/L Sodium 138 LAB K 3.7-5.1 mmol/L Potassium 4.4 LAB CL 97-105 mmol/L Chloride 100 LAB CO2 22-30 mmol/L CO2 25 LAB AGAP 9-18 mmol/L Anion Gap 13 LAB ALT 7-38 U/L ALT 22 LAB GFRAA eGFR- Amer. >60 LAB GFRNAA . eGFR-All Other Races >60 Result Comment: eGFR (Estimated GFR) Units of measure: mL/min/1.73 meters squared eGFR is derived from the reexpressed MDRD Study equation using the following parameters: serum creatinine, age, gender and race. The creatinine assay has been calibrated to be traceable to IDMS. An eGFR <60 mL/min/1.73m2 for >3 months is consistent with chronic kidney disease. Refer to KDOQI guidelines for clinical interpretation. In patients with unstable renal function, e.g. those with acute kidney injury, the eGFR may not accurately reflect actual GFR. Performed By: #### HBA1C, CMP, LIPB, LDLDCT #### [facility] [address] [place], [place] [address] LIPID PANEL, BASIC Collected: 05/21/2017 Status: F Source: [place] 8:08 AM [facility] REPOSITORY TYPE CODE TESTS RESULT OUT OF REFERENCE UNITS RANGE LAB CHOL <200 mg/dL Cholesterol 171 Result Comment: <200 mg/dL, Desirable 200-239 mg/dL, Borderline high >239 mg/dL, High LAB TRIGLY <150 mg/dL Triglyceride High 497 Result Comment: <150 mg/dL, Normal 150-199 mg/dL, Borderline high 200-499 mg/dL, High >499 mg/dL, Very high LAB HDL >39 mg/dL HDL-Cholesterol Low 29 Result Comment: 40-59 mg/dL, Acceptable >59 mg/dL, High: Negative risk factor for coronary heart disease <40 mg/dL, Low: Positive risk factor for coronary heart disease LAB LDL <100 mg/dL LDL-Cholesterol Unable to calculate due to increased Triglycerides. See LDL-Chol, Direct. LAB NONHDL <130 mg/dL Non HDL Cholesterol 142 High Result Comment: <130 mg/dL, Optimal 130-159 mg/dL, Near optimal/above optimal 160-189 mg/dL, Borderline high 190-219 mg/dL, High >219 mg/dL, Very high Secondary prevention optimal non HDL Cholesterol levels are recommended to be < 100 mg/dL LAB FT hrs Fasting Time 12 LAB VLDL <30 mg/dL VLDL Unable Cholesterol to calculate due to increased Triglycerides. See LDL-Chol, Direct. LAB TCHDL <5.10 TC:HDL Ratio 5.90 High LAB LDLHDL <2.54 LDL:HDL Ratio Unable to calculate due to elevated Triglycerides. Result Comment: Reference: 1. National Cholesterol Education Program ATP III Guideline At-A-Glance Quick Desk Reference: National Heart, Lung, and Blood [place]. National Institutes of Health. 2001: NIH Publication No. 01-3305. 2. An International Atherosclerosis Society position paper: global recommendations for the management of dyslipidemia: executive summary, Atherosclerosis. 2014: 232(2):410-413. Performed By: #### HBA1C, CMP, LIPB, LDLDCT #### [facility] [address] [place], [place] [address] LDL-CHOL, DIRECT Collected: 05/21/2017 Status: F Source: [place] 8:08 AM [facility] REPOSITORY TYPE CODE TESTS RESULT OUT OF REFERENCE UNITS RANGE LAB LDLDIR <100 mg/dL LDL-Chol, 76 Direct Result Comment: <100 mg/dL, Optimal 100-129 mg/dL, Near optimal/above optimal 130-159 mg/dL, Borderline high 160-189 mg/dL, High >189 mg/dL, Very high Secondary prevention optimal LDL Cholesterol levels are recommended to be < 70 mg/dL LAB VLDL1 <30 mg/dL VLDL Cholesterol High 66 Performed By: #### HBA1C, CMP, LIPB, LDLDCT #### [facility] [address] [place], [place] [address] URGENT CARE VISIT Observed: 04/28/2017 Status: F Source: [place] REPORT 6:10 PM [facility] REPOSITORY [facility] [address] [place] [address] [address] [place] [address] OFFICE VISIT Date of Service: 04/28/17 MR#: [id number] Acct: [id number] Name: JAROD LOONEY Zaina Rep #: [id number] : 1970 Provider: Cesar HERNANDEZ Age/Sex: 46/F Location: [facility] Status: Signed Intake Vital Signs04/28/17 Height 5 ft 6 in Intake Visit Reasons: Urinary tract infection Is patient in pain?: No Allergies Penicillins Allergy (Verified 04/28/17 17:40) Swelling ropinirole HCl [From Requip] Allergy (Verified 04/28/17 17:40) Other Medications Atenolol [Tenormin] 25 mg PO DAILY 05/01/13 [History Confirmed 04/28/17] Gabapentin 300 mg PO QHS 05/01/13 [History Confirmed 04/28/17] Glimepiride [Amaryl] 2 mg PO DAILY 05/01/13 [History Confirmed 04/28/17] Losartan Potassium [Cozaar] 50 mg PO BID 05/01/13 [History Confirmed 04/28/17] Metformin HCl [Glucophage] 1,000 mg PO BID 05/01/13 [History Confirmed 04/28/17] Montelukast [Singulair] 10 mg PO DAILY 05/01/13 [History Confirmed 04/28/17] Niacin SA [Niaspan] 500 mg PO QHS 05/01/13 [History Confirmed 04/28/17] Ondansetron [Zofran Odt] 4 mg PO Q8H PRN PRN #10 tab 05/01/13 [Rx Confirmed 04/28/17] Pravastatin [Pravachol] 80 mg PO BID 05/01/13 [History Confirmed 04/28/17] Omeprazole [Prilosec] 40 mg PO DAILY #30 cap 05/09/13 [Rx Confirmed 04/28/17] fenofibrate nanocrystallized 145 mg tablet PO 30 Days #30 04/14/17 [History Confirmed 04/28/17] linaclotide 145 mcg capsule PO 90 Days #90 04/14/17 [History Confirmed 04/28/17] liraglutide 0.6 mg/0.1 mL (18 mg/3 mL) subcutaneous pen injector SC 90 Days #18 04/14/17 [History Confirmed 04/28/17] nitrofurantoin macrocrystal 100 mg capsule 100 mg PO Q12H 10 Days #20 cap 04/28/17 [Rx Confirmed 04/28/17] PFSH Medical History Diabetes (Acute) Hay fever (Acute) Kidney disease (Acute) Hypertension (Chronic) Social History Smoking Status: Current every day smoker alcohol intake: never HPI Urinary tract infection: Chief Complaint: UTI Details: JAROD LOONEY, is a 46 F who presents to the office today for recurring dysuria and hematuria 2 days. Patient recently treated for cystitis approximately 2 weeks ago with Macrobid, noting symptoms have resolved. Then recurring symptoms of the same beginning yesterday. She notes no associated fever, chills, sweats, back pain, though does note mild suprapubic tenderness to palpation. She notes no complaints otherwise. ROS Const Constitutional: No excessive sweating, abnormal sleep pattern, chills, fever(s), night sweats or body ache Eyes Eyes: No change in vision ENT ENT: No abnormal hearing, ear pain, ear discharge, ear pressure, hearing loss, post nasal drip or sinus pressure Resp Respiratory: No cough or chest congestion Cardio Cardiology: No excessive sweating, chest pain at rest, chest pain with exertion, shortness of breath, dyspnea on exertion, irregular heart rhythm, generalized swelling or leg pain with exertion Gastro GI: No abdominal pain, change in stool character or change in bowel habits Genitourinary-Female: Positive for burning urination, urinary frequency, painful urination and blood in urine Musc Musculoskeletal: No joint pain, back pain or limited range of motion Skin Skin: No change in hair or sores Neuro Neurology: No abnormal hearing, abnormal speech or abnormal movements Psych Psychiatric: No abnormal sleep pattern Endo Endocrine: No excessive sweating, change in body appearance, cold intolerance or heat intolerance Aller/Imm Allergy/Immunologic: No food intolerance Dheeraj/Lymp Hematologic/Lymphatic: No easy bruising Exam Const General: cooperative, healthy appearing, no acute distress, comfortable Nutritional Appearance: average body habitus Orientation: alert, awake, oriented x3 HENMT Head: normal to inspection Ears: hearing grossly normal bilaterally Nose: external nose normal Eyes General: appearance normal, both eyes and all related structures Neck Neck: normal visual inspection, full ROM Lymphatic: no lymphadenopathy noted Chest Chest palpation AND inspection: normal inspection of the chest Resp Effort AND Inspection: normal respiratory effort, able to speak in complete sentences, symmetric chest movement Cardio Rate: regular rate Pulses: radial pulses present GI Inspection: normal to inspection Palpation: soft, no hepatosplenomegaly General: other (See urinalysis results, urine hCG negative) Skin General: no rashes or lesions noted Neuro General: alert, awake, oriented x3, gait normal Cognition: normal cognition Speech: speech normal Gait: normal gait Motor: muscle tone normal throughout Sensory Exam: no sensory deficits noted Extrem General: normal to inspection Psych Appearance: grossly normal Mental Status: mental status grossly normal Mood: congruent mood Affect: normal affect Speech and Movement: speech and movement normal Attitude: cooperative Thought Process: normal Thought Content: normal Judgment: judgment good Results [facility] Office , Urine Negative Last Edit by Yasmine Alexander on 04/28/17 17:42 [facility] Office Urine Color YELLOW Last Edit by Yasmine Alexander on 04/28/17 17:43 Office Urine Clarity Clear Last Edit by Yasmine Alexander on 04/28/17 17:43 Assessment AND Plan 1. Urinary tract infection N39.0 2. Cystitis N30.90 Plan Macrodantin as prescribed today. Appropriate hygiene is reinforced today. Follow-up with PCP or OB GEN the next 3-5 days should symptoms not improve, sooner should symptoms worsen or any other concerns develop. Patient states knowledge understanding all the above. This note was generated with [employer] software. It may contain incorrect words, spelling, and punctuation that were not noted in checking the note before signing. Plan Detail Other Orders Orders: Other Medications New: nitrofurantoin macrocrystal administer with food (meal or atprg205 mg PO Q12H 10 days ) Coding Level of Care Code Off vis,est,level 4 Diagnoses Urinary tract infection N39.0 Cystitis N30.90 04/28/17 1810 <Electronically signed by Cesar HERNANDEZ> Date Cesar HERNANDEZ Cosigner Signature: Date (if applicable) CC: ALLERGIES ALLERGIES DATE TYPE / CODE NAME / CODE REACTION SEVERITY SOURCE 04/15/2018 Drug ropinirole Other Unknown [place] Allergy/416 HCl/[id number](RX Community 878248([facility] ED CT) Repository 04/15/2018 Drug Penicillins/F0010 Swelling Unknown [place] Allergy/416 90423(RXNORM) Community 994168([facility] ED CT) Repository 04/18/2013 DRUG PENICILLIN G SWELLING [address] 506381([facility] ED CT) 04/18/2013 DRUG ROPINIROLE OTHER: SEE C [address] 451605([facility] ED CT) ENCOUNTERS ENCOUNTERS ADMIT/DISCHARGE ACCOUNT ADMITTING ENCOUNTER LOCATION SOURCE NUMBER CLASS 04/18/2018/04/19/19 [id number] Ambulatory [address] Repository 04/15/2018/04/15/19 [id number] [place] [facility] Repository 04/06/2018/04/06/19 [id number] Ambulatory [address] Repository 04/02/2018/04/02/19 [id number] Ambulatory BMSBuilding:Zaina Steven 19 [facility] Repository 04/01/2018/04/01/[id number] Repository 02/23/2018/02/24/20 [id number] Ambulatory [address] Repository 01/25/2018/01/26/20 [id number] Ambulatory [address] Repository 01/13/2018/01/17/20 [id number] Ambulatory [facility] [place] Repository 01/13/2018/01/14/20 [id number] Ambulatory [facility] [place] Repository 01/04/2018/01/06/20 [id number] Ambulatory [facility] [place] Repository 12/28/2017/12/29/19 [id number] Ambulatory [place] [facility] [place] Repository 12/26/2017/12/28/19 [id number] Ambulatory [facility] [place] Repository 12/22/2017/12/23/19 [id number] Ambulatory [place] [facility] [place] Repository 12/19/2017/12/23/19 [id number] Ambulatory [place] [facility] [place] Repository 12/17/2017/12/18/19 [id number] Ambulatory [place] [facility] [place] Repository 12/07/2017/12/10/19 [id number] Ambulatory [place] [facility] [place] Repository 11/14/2017/11/15/19 [id number] Ambulatory [place] [facility] [place] Repository 09/26/2017/09/27/19 [id number] Ambulatory [place] [facility] [place] Repository 09/10/2017/09/11/19 [id number] Ambulatory [place] [facility] [place] Repository 09/09/2017/09/13/19 [id number] Ambulatory [address] [place] Repository 08/24/2017/08/25/19 [id number] Ambulatory [address] [place] Repository 08/13/2017/08/14/19 [id number] Ambulatory [place] [facility] [place] Repository 07/23/2017/07/24/19 [id number] Ambulatory BMSBuilding:B [place] [facility] Repository 06/02/2017/06/03/19 [id number] Ambulatory [place] [facility] [place] Repository 06/02/2017/06/08/19 [id number] Ambulatory [place] [facility] [place] Repository 05/27/2017/05/28/19 [id number] Ambulatory [place] [facility] [place] Repository 05/25/2017 [id number] Ambulatory [place] [facility] [place] Repository 05/25/2017/05/25/19 [id number] Ambulatory [place] [facility] [place] Repository 05/25/2017/05/27/19 [id number] Ambulatory [address] Repository 05/21/2017/05/21/19 [id number] Ambulatory [address] Repository 04/28/2017/04/28/19 [id number] Ambulatory BMSBuilding:B [place] 18 [facility] Repository 04/28/2017 [id number] Ambulatory BMSBuilding:B [place] MS.[facility] Repository PAYERS PAYERS ENCOUNTER GUARANTOR PAYER SUBSCRIBER SOURCE 04/15/2018 JAROD Mahajan Primary JAROD Mahajan [place] [id number] Insurance:[facility] SELLERSDOB: Community ISHA DRAPT *IN [facility] [id number] Number: Repository [id number]: [phone] [id number] [phone] () Date:1423-09-[address] [address]AL: 04/15/2018 Secondary NOT GIVENUNK [place] Insurance:SELF PAY [facility] Number: Effective Repository Date:2018-04-15 04/02/2018 JAROD Mahajan Primary JAROD Mahajan [place] [id number] Insurance:[facility] SELLERSDOB: Community ISHA DRAPT *IN [facility] [id number] Number: Repository [id number]: [phone] [id number] [phone] () Date:[id number] [address]HA: 04/02/2018 Secondary NOT GIVENUNK [place] Insurance:SELF PAY [facility] Number: Effective Repository Date:2018-04-02 07/23/2017 JAROD Mahajan Primary JAROD Mahajan [place] [id number] Insurance:[facility] SELLERSDOB: Community ISHA DRAPT *IN [facility] [id number] Number: Repository [id number]: [phone] [id number] [phone] (HP) Date:0838-29-54BIFE CLAIMS [address]PO [address] [place] [id number]: 07/23/2017 Secondary NOT GIVENUNK [place] Insurance:SELF PAY [facility] Number: Effective Repository Date:2017-07-23 04/28/2017 JAROD Mahajan Primary JAROD Mahajan [place] [id number] Insurance:[facility] SELLERSDOB: Community ISHA DRAPT *IN [facility] [id number] Number: Repository [id number]: [phone] [id number] [phone] () Date:5423-35-27LETJ CLAIMS [address] [place] [address]IE: 04/28/2017 Secondary NOT GIVENUNK [place] Insurance:SELF PAY [facility] Number: Effective Repository Date:2017-04-28 04/28/2017 JAROD Mahajan Primary JAROD Mahajan [place] [id number] Insurance:[facility] [facility] SELLERSDOB: Community ISHA DRAPT *IN [facility] [id number] Number: Repository [id number]: [phone] [id number] [phone] () Date:0905-75-77GDAR CLAIMS [address] [place] [phone]: 04/28/2017 Secondary NOT GIVENUNK [place] Insurance:SELF PAY [facility] Number: Effective Repository Date:2017-04-28
== END 2018-04-15 11:28 | disposition home or self-care (01) ==
PROVIDERS: Emergency Provider Emergency Medicine; Family Provider Internal Medicine; PCP Internal Medicine
DX: S61.452A Open bite of left hand, initial encounter (principal); W55.01XA Bitten by cat, initial encounter; Y93.9 Activity, unspecified; Y92.9 Unspecified place or not applicable; Y99.9 Unspecified external cause status; E11.9 Type 2 diabetes mellitus without complications; I10 Essential (primary) hypertension; Z72.0 Tobacco use; Z79.82 Long term (current) use of aspirin; Z79.4 Long term (current) use of insulin; Z79.1 Long term (current) use of non-steroidal anti-inflammatories (NSAID); Z79.899 Other long term (current) drug therapy
CPT/HCPCS: 73130; 99283

== ENCOUNTER → 2018-07-14 12:56 | Outpatient (CLI) | payer MEDICARE, SELFPAY ==
[2018-07-14 06:19] VITALS: BMI 31.8
[2018-07-14 13:23] LABS: Bacteria 0 SEEN /hpf (None Seen); Mucous, Urine 0 SEEN /hpf (<or=2+); Red Blood Cells-Urine 0 SEEN /hpf (0-5); Squamous Epithelial Cells - UA 0 SEEN /hpf (5-10)
[2018-07-14 13:33] LABS: Color, Urine Yellow (Yellow); Glucose, Dipstick 50 mg/dl (Normal); Ketone-Dipstick 5 mg/dl (Negative); Leukocyte Esterase-Dipstick 500 /ul (Negative); Nitrite-Dipstick Positive (Negative); Occult Blood-Urine 250 /ul (Negative); Protein-Dipstick 100 mg/dl (Negative); Urine Bilirubin Dipstick Negative (Negative); Urine Clarity Cloudy (Clear); Urine Urobilinogen Normal (Normal)
[2018-07-14 13:51] LABS: White Blood Cells >100 SEEN /hpf (0-5)
== END ==
PROVIDERS: Family Provider Internal Medicine; PCP Internal Medicine; Referring Provider Physician Assistant Surgical; Visit Provider Physician Assistant Surgical
DX: N30.90 Cystitis, unspecified without hematuria (principal); R30.0 Dysuria
CPT/HCPCS: 81001; 87086; 87088; 87186

== ENCOUNTER → 2020-01-10 18:35 | Observation (INO) | payer MEDICARE, MEDICAID, SELFPAY ==
[2019-03-28 09:43] VITALS: BMI 31.8
[2020-01-10 18:35] VITALS: BP 177/95; PULSE 18; RESP 95; TEMP 35.8; O2SAT 95; BMI 64.3
[2020-01-10 18:51] LABS: Bedside Glucose 136 mg/dL (70-110)
[2020-01-10 19:15] LABS: Absolute Lymphocyte Count 2.46 X10^3/uL (0.83-4.51); Absolute Neutrophil Count 11.9 X10^3/uL (2.0-7.7); Basophil# 0.04 X10^3/uL; Basophil% 0.3 % (0-1); Eosinophil# 0.25 X10^3/uL; Eosinophils% 1.6 % (0-5); Hematocrit 44.6 % (37-47); Hemoglobin 14.6 g/dL (12.0-15.0); Lymphocyte # 2.46 X10^3/ul (4.0); Lymphocyte % 15.8 % (19-41); Mean Corp Hgb Conc 32.7 g/dL (32-36); Mean Corpuscular Hgb 27.8 pg (27.0-32.0); Mean Platelet Vol. 8.5 fl (6.2-12.0); Monocyte% 5.8 % (0-10); NRBC Flagged by Analyzer 0 % (0-5); Neutrophil # 11.88 X10^3/uL (2.7-7.7); Neutrophil % 76.2 % (47-70); Platelet Count 474 K/mm3 (150-450); RBC Distribution Width CV 13.7 % (11.6-14.6); RBC Distribution Width SD 42.4 fl (35.1-43.9); Red Blood Count 5.25 M/mm3 (4.2-5.4); White Blood Count 15.6 K/mm3 (4.4-11.0)
[2020-01-10 19:35] LABS: AST(SGOT) 13 U/L (15-37); Alanine Aminotransfer ALT/SGPT 28 U/L (13-56); Albumin, Serum 3.7 g/dL (3.2-5.0); Alkaline Phosphatase 95 U/L (45-117); Anion Gap 6 (5-15); BUN 11 mg/dL (7-18); BUN/Creat Ratio 12.4 RATIO (10-20); Calcium,Total 9.7 mg/dL (8.5-10.1); Chloride 105 mmol/L (98-107); Creatinine, Serum 0.89 mg/dL (0.55-1.02); EST Glomerular Filtration Rate 72 mL/min (>60); Est Glom Filt Rate - Afr Amer 87 mL/min (>60); Globulin 3.7 g/dL (2.2-4.2); Glucose 133 mg/dL (74-106); Potassium 3.8 mmol/L (3.5-5.1); Protein, Total 7.4 g/dL (6.4-8.2); Sodium Level 137 mmol/L (136-145)
--- NOTE | 2020-01-10 20:11 | ED.VIS.GEN ---
History of Present Illness Chief Complaint: Hypoglycemia Informant: Patient Onset: Today Context: Gradual Onset Current Severity: Mild Maximum Severity: Mild Narrative: The patient is a 49-year-old female with medical history significant for hypertension, hyperlipidemia, restless legs, and insulin-dependent diabetes. The patient states that tonight at 6 PM, she took her 45 units of long-acting insulin which she takes both morning and night. She states that she mixed up her insulin and then took another 45 units of her long-acting insulin. This was approximately 6 PM. She denies any symptoms. She states that this was truly accidental. She states she is otherwise been in her normal state of health. She has been compliant with all of her medications. She states that her a.m. blood sugar is usually 140. Prior similar symptoms: No Recent Illness/Hospitalization: No Past Medical History - Allergies and Home Meds Allergies/Adverse Reactions: Allergies bupropion [From Wellbutrin] Allergy (Verified 01/10/20 18:40) Hives Penicillins Allergy (Verified 01/10/20 18:40) Swelling ropinirole HCl [From Requip] Allergy (Verified 01/10/20 18:40) Other Primary Care Physician: Danielle Knowles MD [Primary Care Provider] - Prior records reviewed: Yes Past Medical History: - - Diabetes, hypertension, hyperlipidemia Surgical History: noncontributory Smoking Status: Current every day smoker Review of Systems General: Denies: Chills, Fever, Sweats Eyes: Denies: Visual changes - bilaterally, Diplopia ENT: Denies: Rhinorrhea, Sore throat Cardiovascular: Denies: Chest pain, Palpitations Respiratory: Denies: Dyspnea, Cough, Dyspnea on exertion Gastrointestinal: Denies: Abdominal pain, Nausea, Vomiting, Diarrhea, Melena, Hematochezia Genitourinary: Denies: Dysuria, Hematuria, Frequency Musculoskeletal: Denies: Back pain, Extremity Pain Skin: Denies: Rash, Wounds Neurological: Denies: Headache, Weakness, Numbness Physical Exam Vital Signs/Narrative: Vital Signs Temp Pulse Resp BP Pulse Ox 01/10/20 18:35 96.4 F L 18 L 95 H 177/95 H 95 Inital Vital Signs reviewed: Yes General: Well nourished, Well developed, No Acute Distress Head: Normocephalic, Atraumatic Eyes: Perrl, EOMI ENT: Moist mucous membranes, No rhinorrhea Neck: Supple, Nontender Cardiovascular: Regular rate, Regular rhythm, No murmurs Respiratory: No distress, CTA bilaterally, Chest nontender Abdomen: Soft, Nontender, Nondistended, Normal bowel sounds Back: Nontender, Normal Inspection Extremities: Nontender, No edema Skin: Normal color, No rash Neurological: Alert, Oriented x3, Cranial nerves II-XII grossly intact, Normal Strength, Normal Sensation Psychological: Normal affect, Normal Mood Diagnostic/Tx/Re-eval Abnormal Lab Results 01/10/20 01/10/20 01/10/20 18:45 19:05 19:05 WBC 15.6 H RBC 5.25 Hgb 14.6 Hct 44.6 MCV 85.0 MCH 27.8 MCHC 32.7 RDW Std Deviation 42.4 RDW Coeff of Melissa 13.7 Plt Count 474 H MPV 8.5 Immature Gran % (Auto) 0.300 Neut % (Auto) 76.2 H Lymph % (Auto) 15.8 L [place] % (Auto) 5.8 Eos % (Auto) 1.6 Baso % (Auto) 0.3 Absolute Neuts (auto) 11.9 H Absolute Lymphs (auto) 2.46 Nucleated RBC % 0 Sodium 137 Potassium 3.8 Chloride 105 Carbon Dioxide 26.0 Anion Gap 6 BUN 11 Creatinine 0.89 Estim Creat Clear Calc 65.30 Est GFR (MDRD) Af Amer 87 Est GFR (MDRD) Non-Af 72 BUN/Creatinine Ratio 12.4 Glucose 133 H Calcium 9.7 Total Bilirubin 0.30 AST 13 L ALT 28 Alkaline Phosphatase 95 Total Protein 7.4 Albumin 3.7 Globulin 3.7 Albumin/Globulin Ratio 1.0 POC Glucose 136 H - Medical Decision Making IV was established. Patient's blood sugar was 136 on arrival. Screening labs are obtained. These are unremarkable. I did discuss the patient with poison control. Given the long-acting nature and the double dose, they did recommend 12-hour observation. Because of this, the patient will be admitted overnight. She was discussed with the hospitalist who agrees with plan of care. Impression 1. Accidental insulin overdose ED Disposition - Plan for ED Patient: Referrals: Danielle Knowles MD [Primary Care Provider] -
[2020-01-10 20:15] VITALS: BP 114/62; PULSE 85; RESP 14; TEMP 36.8; O2SAT 97
[2020-01-10 20:21] LABS: Bedside Glucose 114 mg/dL (70-110)
--- NOTE | 2020-01-10 20:26 | PCM.HP.STD ---
History of Present Illness Date of Admission: 01/10/20 Chief Complaint: administered too much insulin The patient is a 49 year old F who is on insulin. This past Tuesday, patient was instructed to split her Lantus 90 units at night to 45 units twice daily. Patient had been doing that but then tonight patient defaulted to what she was doing previously and administered herself 90 units. Patient recognized right away and presented to the emergency room. Work-up in the emergency room was unremarkable. Most recent blood sugar was 114. Patient is not having any hypoglycemic symptoms at this time. [] Past Medical History Medical History: Medical History (Last Updated 01/10/20 @ 20:[address] Harris Saenz, DO) DM2 (diabetes mellitus, type 2) E11.9 Diabetes E11.9 Hay fever J30.1 Kidney disease N28.9 Raynaud disease I73.00 Hypertension I10 Allergies bupropion [From Wellbutrin] Allergy (Verified 01/10/20 18:40) Hives Penicillins Allergy (Verified 01/10/20 18:40) Swelling ropinirole HCl [From Requip] Allergy (Verified 01/10/20 18:40) Other Home Medications: Ambulatory Orders Medication Instructions Recorded Atenolol [Tenormin] 50 mg PO DAILY 05/01/13 Gabapentin 100 mg PO TID 05/01/13 Losartan Potassium [Cozaar] 50 mg PO DAILY 05/01/13 Metformin HCl [Glucophage] 1,000 mg PO BID 05/01/13 Montelukast [Singulair] 10 mg PO DAILY 05/01/13 Omeprazole [Prilosec] 40 mg PO DAILY #30 cap 05/09/13 fenofibrate nanocrystallized 145 145 mg PO DAILY 30 Days #30 04/14/17 mg tablet linaclotide 145 mcg capsule 145 mcg PO PRN PRN 90 Days #90 04/14/17 liraglutide 0.6 mg/0.1 mL (18 mg/3 1.8 mg SC DAILY 90 Days #18 04/14/17 mL) subcutaneous pen injector Amlodipine Besylate 5 mg PO DAILY 04/15/18 Aspirin [Aspirin, Baby] 81 mg PO DAILY@0800 04/15/18 Atorvastatin Calcium 20 mg PO DAILY 04/15/18 Naproxen [Naprosyn] 500 mg PO BID PRN PRN #20 tab 04/15/18 Venlafaxine HCl [Venlafaxine HCl 150 mg PO DAILY 04/15/18 ER] insulin degludec 100 unit/mL (3 45 unit SC BID ml 03/28/19 mL) subcutaneous pen Surgical History: noncontributory Smoking Status: Current every day smoker - *Family History Maternal History Items: Diabetes Review of Systems Constitutional: Denies: Anorexia, Fever, Night Sweats Eyes: Denies: Blurred vision, Double vision HEENT: Denies: Head Aches, Sinus Congestion, Sinus Drainage Cardiovascular: Denies: Chest Pain, Palpitations Respiratory: Denies: Cough, Shortness of breath at rest, Sputum production Gastrointestinal: Denies: Abdominal Pain, Nausea, Vomiting Comment: All review of systems were negative except as mentioned above in the history of present illness and the other review of systems. VTE Information - Inpt Only VTE Present on Admission: No VTE Mechan Device Prophylaxis: None VTE Pharm Prophylaxis ordered?: No Reason prophylaxis not ordered:: Treatment Not Indicated - Physical Exam Vitals/I&O's: Vital Signs Temp Pulse Resp BP Pulse Ox 36.8 C 85 14 114/62 97 01/10/20 20:15 01/10/20 20:15 01/10/20 20:15 01/10/20 20:15 01/10/20 20:15 Oxygen Delivery Method Room Air Weight: 170 kg Body Mass Index (BMI) 64.3 Finger Stick Blood Glucose 114 General: Alert, Cooperative, No apparent distress HEENT: Atraumatic, Normocephalic Oral: Moist Mucosa, No Gingival or Mucosal Lesions/ Ulcerations Neck: No Nodes, Thyroid Normal Size and Texture Lungs: Clear to auscultation, Normal air movement, No rhonchi, No wheeze, No rales Cardiovascular: Regular rate, Regular Rhythm, Normal S1, Normal S2, No murmurs Abdomen: Bowel Sounds Present, Soft, Non Tender, Non-Distended, No Hepato-splenomegaly Extremities: No edema, No Calf Tenderness Psych/Mental Status: Normal Affect, Appropriate Laboratory Results 01/10/20 18:45: POC Glucose 136 H 01/10/20 19:05: WBC 15.6 H, RBC 5.25, Hgb 14.6, Hct 44.6, MCV 85.0, MCH 27.8, MCHC 32.7, RDW Std Deviation 42.4, RDW Coeff of Melissa 13.7, Plt Count 474 H, MPV 8.5, Immature Gran % (Auto) 0.300, Neut % (Auto) 76.2 H, Lymph % (Auto) 15.8 L, [place] % (Auto) 5.8, Eos % (Auto) 1.6, Baso % (Auto) 0.3, Absolute Neuts (auto) 11.9 H, Absolute Lymphs (auto) 2.46, Nucleated RBC % 0 01/10/20 19:05: Sodium 137, Potassium 3.8, Chloride 105, Carbon Dioxide 26.0, Anion Gap 6, BUN 11, Creatinine 0.89, Estim Creat Clear Calc 65.30, Est GFR (MDRD) Af Amer 87, Est GFR (MDRD) Non-Af 72, BUN/Creatinine Ratio 12.4, Glucose 133 H, Calcium 9.7, Total Bilirubin 0.30, AST 13 L, ALT 28, Alkaline Phosphatase 95, Total Protein 7.4, Albumin 3.7, Globulin 3.7, Albumin/Globulin Ratio 1.0 01/10/20 20:13: POC Glucose 114 H Assessment/Plan All Active Problems (Last Updated 01/10/20 @ 20:[address] Harris Saenz, DO) Cystitis (Acute) Sinusitis, acute (Acute) Contact dermatitis (Acute) 1. Unintentional overdose of insulin: Patient took 90 units instead of her 45 units of Lantus tonight. Currently she is not hypoglycemic but she could throughout the night. Poison control was contacted and recommended monitoring patient for 14 hours. So the plan is to check patient's blood sugar every hour and as as needed. May need to initiate a D5 drip and possible other administration of D50 if necessary. Hold all insulin as well as oral hypoglycemics. 2. VTE prophylaxis: Not indicated as patient is observation status. OBSV E&M: 78236 Initial observation care L2
[2020-01-10 21:17] VITALS: BMI 31.6
[2020-01-10 21:53] VITALS: BP 121/92; PULSE 79; RESP 24; TEMP 36.8; O2SAT 95
[2020-01-10 22:30] LABS: Bedside Glucose 113 mg/dL (70-110)
[2020-01-10 23:36] LABS: Bedside Glucose 103 mg/dL (70-110)
[2020-01-11 01:01] LABS: Bedside Glucose 126 mg/dL (70-110)
[2020-01-11 02:14] VITALS: BP 111/64; PULSE 74; RESP 16; TEMP 36.7; O2SAT 97
[2020-01-11 02:16] LABS: Bedside Glucose 109 mg/dL (70-110)
[2020-01-11 03:11] LABS: Bedside Glucose 104 mg/dL (70-110)
[2020-01-11 04:26] LABS: Bedside Glucose 112 mg/dL (70-110)
[2020-01-11] MEDS: Gabapentin 100 MG Capsule PO ×3 (05:29→22:47)
[2020-01-11 05:36] LABS: Bedside Glucose 108 mg/dL (70-110)
[2020-01-11 06:46] LABS: Bedside Glucose 111 mg/dL (70-110)
[2020-01-11 07:30] LABS: Bedside Glucose 120 mg/dL (70-110)
[2020-01-11 08:14] VITALS: BP 155/83; PULSE 86; RESP 18; TEMP 36.8; O2SAT 97
[2020-01-11] MEDS: Aspirin 81 MG TAB.CHEW PO (08:55)
[2020-01-11] MEDS: Losartan Potassium 50 MG Tablet PO (08:55)
[2020-01-11] MEDS: Venlafaxine XR 150 MG Capsule PO (08:56)
[2020-01-11] MEDS: Fluticasone 0.05% 1 SPRAY NASAL.SRY 2 SPRAY NASAL (08:56)
[2020-01-11] MEDS: Pramipexole Di-HCl 0.5 MG Tablet PO (08:57)
[2020-01-11] MEDS: Fenofibrate 145 MG Tablet PO (08:59)
[2020-01-11] MEDS: Pantoprazole Sodium 20 MG Tablet PO (08:59)
[2020-01-11] MEDS: amLODIPine 5 MG Tablet PO (08:59)
[2020-01-11] MEDS: Atenolol 50 MG Tablet PO (08:59)
[2020-01-11] MEDS: Montelukast 10 MG Tablet PO (08:59)
[2020-01-11 09:06] LABS: Bedside Glucose 172 mg/dL (70-110)
--- NOTE | 2020-01-11 11:52 | CASEMGMT ---
Social Work SW met with pt in room and introduced self and role. Pt denies any intention to harm self. Pt stating she loves life and has too much to live for. Pt indicates that she feels safe at home and has no concerns with returning home at this time. Pt states that the minute she took too much insulin she realized the mistake and immediately told fiance to bring her to ED. No d/c needs at this time. GLORIA Mason
[2020-01-11 12:36] LABS: Bedside Glucose 178 mg/dL (70-110)
--- NOTE | 2020-01-11 13:01 | NURSING ---
poison control called in checking on patient's status
--- NOTE | 2020-01-11 13:55 | PCM.PN.HOSP ---
Reason for Visit: Follow-up on accidental overdose. Subjective: Patient was seen and examined. Improved. Blood glucose are controlled. She is past 14 hours since being admitted. Patient has been able to tolerated diet. Objective: Physical exam: General: Alert, Cooperative, No apparent distress HEENT: Atraumatic, Normocephalic Oral: Moist Mucosa, No Gingival or Mucosal Lesions/ Ulcerations Neck: No Nodes, Thyroid Normal Size and Texture Lungs: Clear to auscultation, Normal air movement, No rhonchi, No wheeze, No rales Cardiovascular: Regular rate, Regular Rhythm, Normal S1, Normal S2, No murmurs Abdomen: Bowel Sounds Present, Soft, Non Tender, Non-Distended, No Hepato-splenomegaly Extremities: No edema, No Calf Tenderness Psych/Mental Status: Normal Affect, Appropriate Vitals/I&O's: Vital Signs Temp Pulse Resp BP Pulse Ox 98.2 F 86 18 155/83 H 97 01/11/20 08:14 01/11/20 08:14 01/11/20 08:14 01/11/20 08:14 01/11/20 08:14 Oxygen Delivery Method Room Air Weight: 83.6 kg Body Mass Index (BMI) 31.6 Finger Stick Blood Glucose 114 Intake and Output for Last 24 Hours 01/09/20 01/10/20 01/11/20 23:59 23:59 23:59 Intake Total 1610 / 1610 Balance 1610 / 1610 Laboratory Results 01/10/20 18:45: POC Glucose 136 H 01/10/20 19:05: WBC 15.6 H, RBC 5.25, Hgb 14.6, Hct 44.6, MCV 85.0, MCH 27.8, MCHC 32.7, RDW Std Deviation 42.4, RDW Coeff of Melissa 13.7, Plt Count 474 H, MPV 8.5, Immature Gran % (Auto) 0.300, Neut % (Auto) 76.2 H, Lymph % (Auto) 15.8 L, [place] % (Auto) 5.8, Eos % (Auto) 1.6, Baso % (Auto) 0.3, Absolute Neuts (auto) 11.9 H, Absolute Lymphs (auto) 2.46, Nucleated RBC % 0 01/10/20 19:05: Sodium 137, Potassium 3.8, Chloride 105, Carbon Dioxide 26.0, Anion Gap 6, BUN 11, Creatinine 0.89, Estim Creat Clear Calc 65.30, Est GFR (MDRD) Af Amer 87, Est GFR (MDRD) Non-Af 72, BUN/Creatinine Ratio 12.4, Glucose 133 H, Calcium 9.7, Total Bilirubin 0.30, AST 13 L, ALT 28, Alkaline Phosphatase 95, Total Protein 7.4, Albumin 3.7, Globulin 3.7, Albumin/Globulin Ratio 1.0 01/10/20 20:13: POC Glucose 114 H 01/10/20 22:18: POC Glucose 113 H 01/10/20 23:30: POC Glucose 103 01/11/20 00:57: POC Glucose 126 H 01/11/20 02:11: POC Glucose 109 01/11/20 03:05: POC Glucose 104 01/11/20 04:20: POC Glucose 112 H 01/11/20 05:28: POC Glucose 108 01/11/20 06:36: POC Glucose 111 H 01/11/20 07:26: POC Glucose 120 H 01/11/20 08:36: POC Glucose 172 H 01/11/20 12:19: POC Glucose 178 H Current Medications Acetaminophen (Acetaminophen 325 Mg Tablet) 650 mg PO Q6H PRN PRN PRN Reason: Pain Score 1-10/Temp > 100.7 F Amlodipine Besylate (Amlodipine 5 Mg Tablet) 5 mg PO DAILY [facility] Last Admin: 01/11/20 08:59 Dose: 5 mg Documented by: Aspirin (Aspirin 81 Mg Tab.Chew) 81 mg PO DAILY@0800 [facility] Last Admin: 01/11/20 08:55 Dose: 81 mg Documented by: Atenolol (Atenolol 50 Mg Tablet) 50 mg PO DAILY [facility] Last Admin: 01/11/20 08:59 Dose: 50 mg Documented by: Atorvastatin Calcium (Atorvastatin Calcium 20 Mg Tablet) 20 mg PO DAILY@2200 [facility] Last Admin: 01/10/20 22:19 Dose: Not Given Documented by: Dextrose (Dextrose 50%-Water 25 Gm/50 Ml Disp.Syrin) 0 gm IV X1 PRN; Protocol PRN Reason: Hypoglycemia Fenofibrate (Fenofibrate 145 Mg Tablet) 145 mg PO DAILY [facility] Last Admin: 01/11/20 08:59 Dose: 145 mg Documented by: Fluticasone Propionate (Fluticasone 0.05% 1 [place] Nasal.Sry) 2 spray NASAL DAILY [facility] Last Admin: 01/11/20 08:56 Dose: 2 spray Documented by: Gabapentin (Gabapentin 100 Mg Capsule) 100 mg PO TID [facility] Last Admin: 01/11/20 05:29 Dose: 100 mg Documented by: Glucagon (Glucagon 1 Mg/Ml Syringe) 1 mg IM .X1 PRN PRN Reason: Hypoglycemia Linaclotide (Linacolotide 145 Mcg Capsule) 145 mcg PO DAILY PRN PRN PRN Reason: ibs Losartan Potassium (Losartan Potassium 50 Mg Tablet) 50 mg PO DAILY [facility] Last Admin: 01/11/20 08:55 Dose: 50 mg Documented by: Montelukast Sodium (Montelukast 10 Mg Tablet) 10 mg PO DAILY [facility] Last Admin: 01/11/20 08:59 Dose: 10 mg Documented by: Naproxen (Naproxen 500 Mg Tablet) 500 mg PO BID PRN PRN PRN Reason: Pain Score 1-10 Nicotine (Nicotine 21 Mg Patch) 21 mg TRANSDERM. DAILY [facility] Last Admin: 01/11/20 08:58 Dose: 21 mg Documented by: Ondansetron HCl (Ondansetron 4 Mg/2 Ml Vial) 4 mg IV Q8H PRN PRN PRN Reason: NAUSEA/VOMITING Pantoprazole Sodium (Pantoprazole Sodium 20 Mg Tablet) 20 mg PO DAILY [facility] Last Admin: 01/11/20 08:59 Dose: 20 mg Documented by: Pramipexole Dihydrochloride (Pramipexole Di-Hcl 0.5 Mg Tablet) 0.5 mg PO DAILY [facility] Last Admin: 01/11/20 08:57 Dose: 0.5 mg Documented by: Sodium Chloride (0.9% Saline Lock 10 Ml Syringe) 10 - 40 ml IV UD PRN PRN Reason: SALINE FLUSH Venlafaxine HCl (Venlafaxine Xr 150 Mg Capsule) 150 mg PO DAILY [facility] Last Admin: 01/11/20 08:56 Dose: 150 mg Documented by: Medical Necessity - Tobacco Use Smoking Status: Current every day smoker Tobacco Use: Cigarettes Assessment/Plan All Active Problems (Last Updated 01/10/20 @ 20:[address] Harris Saenz, DO) Cystitis (Acute) Sinusitis, acute (Acute) Contact dermatitis (Acute) 1. Hypoglycemia secondary to accidental insulin overdose, resolved Continue to monitor blood sugars 2. Type II DM complicated by peripheral neuropathy, We will resume home insulin and monitor blood glucose levels Continue on gabapentin 3. Hypertension, controlled, continue amlodipine, atenolol, losartan 4. Hyperlipidemia, continue on statin 5. Nicotine dependence, on replacement 6. DVT PPx -early ambulation 7. Disposition: Possible dc home if BS remain stable after resumption of insulin. Inpatient E&M: 98575 Subs Hosp L2
[2020-01-11 14:00] VITALS: PULSE 79; RESP 18; TEMP 36.7; O2SAT 98
[2020-01-11 14:57] LABS: Hemoglobin A1c 8.6 % (3.8-5.6)
[2020-01-11 16:25] LABS: Bedside Glucose 196 mg/dL (70-110)
[2020-01-11] MEDS: metFORMIN HCl 1,000 MG Tablet 1000 MG PO (18:12)
[2020-01-11 20:12] VITALS: BP 121/74; PULSE 74; RESP 18; TEMP 36.9; O2SAT 94
[2020-01-11] MEDS: Atorvastatin Calcium 20 MG Tablet PO (22:47)
[2020-01-11 22:57] LABS: Bedside Glucose 200 mg/dL (70-110)
[2020-01-12 04:14] VITALS: BP 131/63; PULSE 72; RESP 18; TEMP 36.4; O2SAT 98
[2020-01-12] MEDS: Gabapentin 100 MG Capsule PO (06:47)
--- NOTE | 2020-01-12 06:48 | NURSING ---
blood sugar was 124 this AM
--- NOTE | 2020-01-12 07:30 | DCINST_ITS ---
- Discharge Diagnoses Reason(s) for Visit for Discharge Instructions: Low blood sugar You will use the following diet at home:: Calorie/Carbohydrate Controlled (specify 1200, 1400, etc) - 1800 Your food should be the consistency of: Regular Your liquids should be the consistency of: Regular/Thin Discharge Activity: Return to Normal Activity Additional Instructions: Continue to keep an eye on your blood sugars. Monitor for low blood sugars. Follow-up with your primary care doctor or web coordinator within 1 to 2 weeks. Allergies/Adverse Reactions: Allergies bupropion [From Wellbutrin] Allergy (Verified 01/10/20 18:40) Hives Penicillins Allergy (Verified 01/10/20 18:40) Swelling ropinirole HCl [From Requip] Allergy (Verified 01/10/20 21:18) seizure Medications to take at Discharge Atenolol [Tenormin (beta rico)] 50 mg PO DAILY 05/01/13 Gabapentin 100 mg PO BID 05/01/13 Losartan Potassium [Cozaar] 50 mg PO DAILY 05/01/13 Metformin HCl [Glucophage] 1,000 mg PO BID 05/01/13 Montelukast [Singulair] 10 mg PO DAILY 05/01/13 fenofibrate nanocrystallized 145 mg tablet 145 mg PO DAILY 30 Days #30 04/14/17 Amlodipine Besylate 5 mg PO DAILY 04/15/18 Aspirin [Aspirin, Baby] 81 mg PO DAILY@0800 04/15/18 Atorvastatin Calcium 20 mg PO DAILY 04/15/18 Naproxen [Naprosyn] 500 mg PO BID PRN PRN #20 tab 04/15/18 Venlafaxine HCl [Venlafaxine HCl ER] 150 mg PO DAILY 04/15/18 Insulin Glargine [Lantus SoloStar Pen] 45 units SQ BID 01/10/20 Omeprazole [Prilosec] 20 mg PO DAILY 01/10/20 Pramipexole Di-HCl [Mirapex] 0.5 mg PO DAILY 01/10/20 Semaglutide [Ozempic] 0.25 mg SQ [place] 01/10/20 Triamcinolone Acetonide [Nasacort Aq Nasal [place]] 2 spray NASAL DAILY 01/10/20 Primary Care Physician: Danielle Knowles MD [Primary Care Provider] - Please follow up with your Primary Care Physician in: within 1-2 weeks Test Results: Test results from this visit will be discussed in further detail at your follow- up appointment, if applicable. Proposed Discharge Date: 01/12/20
--- NOTE | 2020-01-12 07:32 | DS.PCM_ITS ---
Discharge Date and Diagnosis Date of Admission: 01/10/20 Date of Discharge: 01/12/20 - Primary Discharge Diagnosis Acute Problems: Accidental insulin overdose Nicotine dependence Hospital Course and Treatment None Operations: None Procedures: None Summary of Care Provided: The patient is a 49 year old F with type II DM, on insulin who inadvertently took 90 units of her Lantus instead of 45 units. She was recently discharged to select a 45 units of insulin twice a day. She was not paying attention and took 90 units. She asked her fiance to drive her to the emergency department. In the ED, poison control recommended monitoring the patient for 14 hours. She was monitored overnight with no severe drops in blood sugars. Her HbA1c was 8.6. She was given her cardiopulmonary flow through the night before discharge and monitored with no acute events. She will follow-up with her PCP and egg crater within 2 weeks. Subjective: On the day of discharge, patient was seen and examined. She denied any new complaints. Objective: Physical exam: General: Alert, Cooperative, No apparent distress HEENT: Atraumatic, Normocephalic Oral: Moist Mucosa, No Gingival or Mucosal Lesions/ Ulcerations Neck: No Nodes, Thyroid Normal Size and Texture Lungs: Clear to auscultation, Normal air movement, No rhonchi, No wheeze, No rales Cardiovascular: Regular rate, Regular Rhythm, Normal S1, Normal S2, No murmurs Abdomen: Bowel Sounds Present, Soft, Non Tender, Non-Distended, No Hepato- splenomegaly Extremities: No edema, No Calf Tenderness Psych/Mental Status: Normal Affect, Appropriate - Physical Exam Vitals/I&O's: Vital Signs Temp Pulse Resp BP Pulse Ox 97.5 F L 72 18 131/63 H 98 01/12/20 04:14 01/12/20 04:14 01/12/20 04:14 01/12/20 04:14 01/12/20 04:14 Oxygen Delivery Method Room Air Weight: 83.6 kg Body Mass Index (BMI) 31.6 Finger Stick Blood Glucose 114 Intake and Output for Last 24 Hours 01/10/20 01/11/20 01/12/20 23:59 23:59 23:59 Intake Total 2810 / 2810 500 / 500 Balance 2810 / 2810 500 / 500 Laboratory Results 01/10/20 19:05: Hemoglobin A1c 8.6 H 01/11/20 08:36: POC Glucose 172 H 01/11/20 12:19: POC Glucose 178 H 01/11/20 16:15: POC Glucose 196 H 01/11/20 22:45: POC Glucose 200 H Current Medications Acetaminophen (Acetaminophen 325 Mg Tablet) 650 mg PO Q6H PRN PRN PRN Reason: Pain Score 1-10/Temp > 100.7 F Amlodipine Besylate (Amlodipine 5 Mg Tablet) 5 mg PO DAILY [facility] Last Admin: 01/11/20 08:59 Dose: 5 mg Documented by: Aspirin (Aspirin 81 Mg Tab.Chew) 81 mg PO DAILY@0800 [facility] Last Admin: 01/11/20 08:55 Dose: 81 mg Documented by: Atenolol (Atenolol 50 Mg Tablet) 50 mg PO DAILY [facility] Last Admin: 01/11/20 08:59 Dose: 50 mg Documented by: Atorvastatin Calcium (Atorvastatin Calcium 20 Mg Tablet) 20 mg PO DAILY@2200 [facility] Last Admin: 01/11/20 22:47 Dose: 20 mg Documented by: Dextrose (Dextrose 50%-Water 25 Gm/50 Ml Disp.Syrin) 0 gm IV X1 PRN; Protocol PRN Reason: Hypoglycemia Fenofibrate (Fenofibrate 145 Mg Tablet) 145 mg PO DAILY [facility] Last Admin: 01/11/20 08:59 Dose: 145 mg Documented by: Fluticasone Propionate (Fluticasone 0.05% 1 [place] Nasal.Sry) 2 spray NASAL DAILY [facility] Last Admin: 01/11/20 08:56 Dose: 2 spray Documented by: Gabapentin (Gabapentin 100 Mg Capsule) 100 mg PO TID [facility] Last Admin: 01/12/20 06:47 Dose: 100 mg Documented by: Glucagon (Glucagon 1 Mg/Ml Syringe) 1 mg IM .X1 PRN PRN Reason: Hypoglycemia Insulin Glargine (Insulin Glargine 100 Units/Ml Pen) 45 units SC BID [facility] Last Admin: 01/11/20 22:47 Dose: 45 u Documented by: Linaclotide (Linacolotide 145 Mcg Capsule) 145 mcg PO DAILY PRN PRN PRN Reason: ibs Losartan Potassium (Losartan Potassium 50 Mg Tablet) 50 mg PO DAILY [facility] Last Admin: 01/11/20 08:55 Dose: 50 mg Documented by: Metformin HCl (Metformin Hcl 1,000 Mg Tablet) 1,000 mg PO BIDCM [facility] Last Admin: 01/11/20 18:12 Dose: 1,000 mg Documented by: Montelukast Sodium (Montelukast 10 Mg Tablet) 10 mg PO DAILY [facility] Last Admin: 01/11/20 08:59 Dose: 10 mg Documented by: Naproxen (Naproxen 500 Mg Tablet) 500 mg PO BID PRN PRN PRN Reason: Pain Score 1-10 Nicotine (Nicotine 21 Mg Patch) 21 mg TRANSDERM. DAILY [facility] Last Admin: 01/11/20 08:58 Dose: 21 mg Documented by: Ondansetron HCl (Ondansetron 4 Mg/2 Ml Vial) 4 mg IV Q8H PRN PRN PRN Reason: NAUSEA/VOMITING Pantoprazole Sodium (Pantoprazole Sodium 20 Mg Tablet) 20 mg PO DAILY [facility] Last Admin: 01/11/20 08:59 Dose: 20 mg Documented by: Pramipexole Dihydrochloride (Pramipexole Di-Hcl 0.5 Mg Tablet) 0.5 mg PO DAILY [facility] Last Admin: 01/11/20 08:57 Dose: 0.5 mg Documented by: Sodium Chloride (0.9% Saline Lock 10 Ml Syringe) 10 - 40 ml IV UD PRN PRN Reason: SALINE FLUSH Venlafaxine HCl (Venlafaxine Xr 150 Mg Capsule) 150 mg PO DAILY [facility] Last Admin: 01/11/20 08:56 Dose: 150 mg Documented by: Discharge Diet: Carb Control Diet Discharge Activity: Return to Normal Activity Home Medications: Medications to take at Discharge Atenolol [Tenormin (beta rico)] 50 mg PO DAILY 05/01/13 Gabapentin 100 mg PO BID 05/01/13 Losartan Potassium [Cozaar] 50 mg PO DAILY 05/01/13 Metformin HCl [Glucophage] 1,000 mg PO BID 05/01/13 Montelukast [Singulair] 10 mg PO DAILY 05/01/13 fenofibrate nanocrystallized 145 mg tablet 145 mg PO DAILY 30 Days #30 04/14/17 Amlodipine Besylate 5 mg PO DAILY 04/15/18 Aspirin [Aspirin, Baby] 81 mg PO DAILY@0800 04/15/18 Atorvastatin Calcium 20 mg PO DAILY 04/15/18 Naproxen [Naprosyn] 500 mg PO BID PRN PRN #20 tab 04/15/18 Venlafaxine HCl [Venlafaxine HCl ER] 150 mg PO DAILY 04/15/18 Insulin Glargine [Lantus SoloStar Pen] 45 units SQ BID 01/10/20 Omeprazole [Prilosec] 20 mg PO DAILY 01/10/20 Pramipexole Di-HCl [Mirapex] 0.5 mg PO DAILY 01/10/20 Semaglutide [Ozempic] 0.25 mg SQ [place] 01/10/20 Triamcinolone Acetonide [Nasacort Aq Nasal [place]] 2 spray NASAL DAILY 01/10/20 Primary Care Physician: Danielle Knowles MD [Primary Care Provider] - Please follow up with your Primary Care Physician in: within 1-2 weeks Disposition: Home Minutes spent on discharge:: 40 Patient Condition:: Stable Medical Necessity - Tobacco Use Smoking Status: Current every day smoker Tobacco Use: Cigarettes Meaningful Use Info Meaningful Use Diagnoses (Choose all that apply): None applicable OBSV E&M: 91552 Observation care discharge
[2020-01-12] MEDS: Fluticasone 0.05% 1 SPRAY NASAL.SRY 2 SPRAY NASAL (08:11)
[2020-01-12 10:11] LABS: Bedside Glucose 124 mg/dL (70-110)
== END | disposition home or self-care (01) ==
LOC: ED 19:24 → MS3 20:33
PROVIDERS: Emergency Provider Emergency Medicine; PCP Internal Medicine; Visit Provider Internal Medicine
DX: E11.649 Type 2 diabetes mellitus with hypoglycemia without coma (principal); T38.3X1A Poisoning by insulin and oral hypoglycemic [antidiabetic] drugs, accidental (unintentional), initial encounter; F17.210 Nicotine dependence, cigarettes, uncomplicated; Z79.899 Other long term (current) drug therapy; Z79.82 Long term (current) use of aspirin; Z79.4 Long term (current) use of insulin; E78.5 Hyperlipidemia, unspecified; I10 Essential (primary) hypertension; I73.00 Raynaud's syndrome without gangrene; E11.42 Type 2 diabetes mellitus with diabetic polyneuropathy
CPT/HCPCS: 80053; 82962; 83036; 85025; 99218; 99281; 99285; 99406; A4216; G0378

== ENCOUNTER 2021-04-28 09:16 | Emergency (ER) | payer MEDICARE, MEDICAID, SELFPAY ==
[2021-04-28 09:17] VITALS: BP 156/88; PULSE 100; RESP 16; TEMP 36.6; O2SAT 99; BMI 31.7
--- NOTE | 2021-04-28 09:29 | VDLE_ITS ---
Reason For Study: pain Procedure LEFT This is a venous duplex using B-mode, color GSV is normal. flow and spectral Doppler. CFV is compressible, spontaneous, phasic, Exam performed portable in ED. competent, and demonstrates normal The exam was abbreviated due to the COVID 19 augmentation. protocol. FV is compressible, spontaneous, phasic, The exam was diagnostic. competent and demonstrates normal A preliminary report was called and/or faxed augmentation. to Dr. Vegas. POP V is compressible, spontaneous, phasic, competent and demonstrates normal augmentation. T/P Trunk is compressible. PTV is compressible. LT PerV is compressible. VL/Venous Duplex US, Unilateral Interpretation Summary There is no evidence of left lower extremity deep vein thrombosis. Left great s aphenous vein appears patent and compressible segmentally. Abbreviated COVID-19 protocol utilized Ordering Physician: Deepika Vegas Performed By: Tony Rodriguez RVT
--- NOTE | 2021-04-28 09:31 | EDS_ITS ---
HPI History of Present Illness Chief Complaint: Lower Extremity Injury Informant: patient Narrative Narrative: Patient is a 50-year-old female presenting with over a week of left lower leg pain. She is the pain is mostly behind her left knee. She states she woke up with it 1 morning. Denies any associate swelling. The pain is persisted/worsened which is what brought her in. She denies any personal history of DVT or PE but notes her mother has had blood clots. Does not remember the context of her mother's blood clots. Did not take anything for the pain as she did not know what is causing it. Denies any associated chest pain, shortness of breath or difficulty breathing. Denies any numbness or tingling in her leg. No other complaints at this time. [facility] Medical History Diabetes DM type 2 (diabetes mellitus, type 2) DM2 (diabetes mellitus, type 2) Hay fever Hypertension Kidney disease Poisoning by insulin and oral hypoglycemic [antidiabetic] drugs, accidental (unintentional), initial encounter Raynaud disease Home Medications atenolol 50 mg PO DAILY 05/01/13 [History Last Taken 01/10/20 18:00] gabapentin 100 mg PO BID 05/01/13 [History Last Taken 01/10/20 18:00] losartan 50 mg PO DAILY 05/01/13 [History Last Taken 01/10/20 18:00] metformin 1,000 mg PO BID 05/01/13 [History Last Taken 01/10/20 18:00] montelukast 10 mg PO DAILY 05/01/13 [History Last Taken 01/10/20 08:00] fenofibrate nanocrystallized 145 mg tablet 145 mg PO DAILY 30 Days #30 04/14/17 [History Last Taken 01/10/20 18:00] amlodipine 5 mg PO DAILY 04/15/18 [History Last Taken 01/10/20 18:00] aspirin 81 mg PO DAILY@0800 04/15/18 [History Last Taken 01/10/20 18:00] atorvastatin 20 mg PO DAILY 04/15/18 [History Last Taken 01/10/20 18:00] naproxen 500 mg PO BID PRN PRN #20 tab 04/15/18 [Rx Last Taken Unknown] venlafaxine 150 mg PO DAILY 04/15/18 [History Last Taken 01/10/20 18:00] insulin glargine 54 units SQ BID 01/10/20 [History Last Taken 01/10/20 18:30 90 units] omeprazole 20 mg PO DAILY 01/10/20 [History Last Taken 01/10/20 18:00] pramipexole 0.5 mg PO DAILY 01/10/20 [History Last Taken 01/10/20 20:00] semaglutide 0.25 mg SQ [place] 01/10/20 [History Last Taken 01/06/20 12:00] triamcinolone acetonide 2 spray NASAL DAILY 01/10/20 [History Last Taken 01/10/20 08:00] Allergy/AdvReac Type Severity Reaction Status Date / Time bupropion [From Wellbutrin] Allergy Hives Verified 04/28/21 09:19 Penicillins Allergy Swelling Verified 04/28/21 09:19 ropinirole HCl [From Requip] Allergy seizure Verified 04/28/21 09:19 Social History Smoking Status: Current every day smoker tobacco type: cigarettes alcohol intake: never ROS ROS ED Constitutional Constitutional ED: Denies chills or fever(s) Eyes Eyes: Denies change in vision ENT ENT ED: Denies sore throat Cardiovascular Cardiovascular: Denies chest pain or palpitations Respiratory/Chest Respiratory/Chest: Denies cough, dyspnea or dyspnea on exertion Gastrointestinal Gastrointestinal: Denies abdominal pain or nausea Musculoskeletal Musculoskeletal: Reports other Details: left leg pain ; Denies arthralgias or myalgias Neurologic Neurologic: Denies headache(s), paresthesias or weakness Psychiatric Psychiatric: Denies depression EXAM Physical Exam Const Vital Signs: 04/28/21 09:17 Temperature 97.9 F Temperature Source Temporal Pulse Rate 100 Respiratory Rate 16 Blood Pressure 156/88 H Blood Pressure Mean 110 Pulse Ox 99 Oxygen Delivery Method Room Air Positive well nourished and well developed General Appearance ED: well developed HEENT atraumatic Neck full ROM and supple Chest Wall inspection of chest normal Resp normal respiratory effort and clear to auscultation bilaterally Cardio regular rate, regular rhythm and no murmurs GI non-tender and non-distended Palpation: soft Back/Spine no CVA tenderness Extremity normal to inspection and full ROM Extremity Narrative: Patient has tenderness palpation nonspecifically of posterior left knee. No joint effusion of the knee appreciated. No palpable cords. No lymphangitic streaking or erythema of the lower extremities appreciated. General Extremety ED: Negative for edema General Extremity: Negative for edema Psych mental status grossly normal Skin Skin Narrative: Patient does have some slight mottling of her knees bilaterally?she attributes this to her Raynaud's disease Rashes: no rashes MDM MDM MDM Narrative Medical decision making narrative: Patient is evaluated for atraumatic left leg pain. Patient is concerned she might have a DVT. I will obtain a venous duplex ultrasound. Patient does not have any signs or symptoms consistent with a PE. Differential also includes Means's cyst or muscle skeletal knee pain. Venous duplex negative for any acute process. Patient informed of these findings. Is encouraged to start taking her Naprosyn. She is given outpatient follow-up with orthopedics. Counseled on return precautions. Radiography Diagnostic Testing: Clinical Impression(s) from Imaging Studies Venous Doppler Study 04/28/21 09:29 Interpretation Summary There is no evidence of left lower extremity deep vein thrombosis. Left great saphenous vein appears patent and compressible segmentally. Abbreviated COVID-19 protocol utilized Ordering Physician: Deepika Vegas Performed By: Tony Rodriguez RVT Discharge Plan Triage Chief Complaint: Lower Extremity Injury ED Provider: Deepika Vegas Dx/Rx/DC Orders Clinical Impression: Acute pain of left knee Instructions: ED Knee Pain of Uncertain Cause Prescriptions: No Action fenofibrate nanocrystallized 145 mg tablet 145 mg PO DAILY 30 Days Qty: 30 RF: 0 losartan 50 MG tablet 50 mg PO DAILY RF: 0 atenolol 25 MG tablet 50 mg PO DAILY RF: 0 metformin 1,000 MG tablet 1,000 mg PO BID RF: 0 gabapentin 300 MG capsule 100 mg PO BID RF: 0 montelukast 10 MG tablet 10 mg PO DAILY RF: 0 atorvastatin 20 MG tablet 20 mg PO DAILY RF: 0 venlafaxine 150 MG capsule,extended release 24hr 150 mg PO DAILY RF: 0 amlodipine 5 MG tablet 5 mg PO DAILY RF: 0 aspirin 81 MG tablet,chewable 81 mg PO DAILY@0800 RF: 0 naproxen 500 MG tablet 500 mg PO BID PRN PRN (Reason: Pain) Qty: 20 RF: 0 pramipexole 0.5 MG tablet 0.5 mg PO DAILY RF: 0 triamcinolone acetonide 1 SPRAY aerosol,spray 2 spray NASAL DAILY RF: 0 omeprazole 20 MG capsule 20 mg PO DAILY RF: 0 insulin glargine 100 UNITS/ML insulin pen 54 units SQ BID RF: 0 semaglutide 0.25 MG/0.2 ML pen injector 0.25 mg SQ [place] RF: 0 Primary Care Provider: Danielle Knowles Referrals: Danielle Knowles MD [Primary Care Provider] - Peewee Chavez DO [STAFF PHYSICIAN] - Disposition Disposition: Home, Self Care Discharge Date/Time: 04/28/21 10:49
== END 2021-04-28 10:49 | disposition home or self-care (01) ==
LOC: ED 10:47
PROVIDERS: Emergency Provider Emergency Medicine; PCP Internal Medicine; Visit Provider Emergency Medicine
DX: M25.562 Pain in left knee (principal); E11.9 Type 2 diabetes mellitus without complications; M79.662 Pain in left lower leg; I10 Essential (primary) hypertension; I73.00 Raynaud's syndrome without gangrene; Z79.84 Long term (current) use of oral hypoglycemic drugs; Z79.82 Long term (current) use of aspirin; Z79.1 Long term (current) use of non-steroidal anti-inflammatories (NSAID); Z79.899 Other long term (current) drug therapy; F17.210 Nicotine dependence, cigarettes, uncomplicated
CPT/HCPCS: 93971; 99282

== ENCOUNTER 2021-05-18 12:45 | Outpatient (CLI) | payer MEDICARE, MEDICAID, SELFPAY ==
[2021-05-18 13:34] LABS: Source- Body Fluid SYNOVIAL
[2021-05-18 14:16] LABS: CRYSTALS, BODY FLUID Other, see comment
[2021-05-18 14:22] LABS: Body Fluid QC Type(s) BF1Q
[2021-05-19 15:14] LABS: Pathologist Review Reviewed
== END 2021-05-18 23:59 | disposition home or self-care (01) ==
LOC: LABSPEC 12:45
PROVIDERS: PCP Internal Medicine; Visit Provider Physician Assistant
DX: M25.462 Effusion, left knee (principal)
CPT/HCPCS: 89060

== ENCOUNTER 2021-06-04 08:45 | Outpatient (CLI) | payer MEDICARE, MEDICAID, SELFPAY ==
--- NOTE | 2021-06-04 08:56 | US_ITS ---
EXAM: US Left Lower Extremity Non-Vascular, Complete CLINICAL INDICATION: 50 years old, Female; posterior knee pain -- medial aspect of the posterior knee TECHNIQUE: Real-time ultrasound scan of the left lower extremity with image documentation. This report was created using [employer] report generation technology. COMPARISON: None. FINDINGS: Soft tissues: 1.4 x 1.5 x 0.8 cm probable popliteal cyst in the soft tissues behind the left knee. No abscess. No foreign body. US/Ext Non Vasc Limited/Soft Tiss IMPRESSION: 1.4 x 1.5 x 0.8 cm probable popliteal cyst in the soft tissues behind the left knee. Electronically Signed: Edward Chadwick MD at 23:09 EST ,
== END 2021-06-04 23:59 | disposition home or self-care (01) ==
PROVIDERS: PCP Internal Medicine; Referring Provider Physician Assistant; Visit Provider Physician Assistant
DX: M25.562 Pain in left knee (principal)
CPT/HCPCS: 76882

== ENCOUNTER → 2021-07-16 | Outpatient (CLI) | payer MEDICARE, MEDICAID, SELFPAY ==
[2021-07-16 12:36] LABS: Pathologist Comment May follow
[2021-07-16 14:07] LABS: Synovial Fld Mononuclear WBC % 95.2 %; Synovial Fld Polynuclear WBC # 0.046 10^3/uL; Synovial Fld Polynuclear WBC % 4.8 %
[2021-07-16 14:40] LABS: Lymph 7 %; Monocyte /Synovial Fluid 85 %; Neutrophil 2 % (0-25); Other Cell /Synovial Fluid 6 %
[2021-07-16 14:42] LABS: AUTO B FLUID DILUENT BKGD CT WBC <0.1 RBC <0.01 (W<.1,R<.01)
[2021-07-16 14:43] LABS: CRYSTALS, BODY FLUID See PATH REV; Source- Body Fluid SYNOVIAL
[2021-07-16 14:44] LABS: Color / Synovial Fluid Yellow (Pale Yellow); Source / Synovial Fluid LEFT KNEE
[2021-07-16 14:45] LABS: Appearance /Synovial Fluid Sl hazy (CLEAR)
[2021-07-16 15:04] LABS: RBC /Synovial Fluid 8 /mm3 (0)
[2021-07-16 15:05] LABS: Body Fluid QC Type(s) BF1Q,BF2Q,BF3Q
[2021-07-17 13:54] LABS: Pathologist Review Reviewed
[2021-07-18 17:16] LABS: GLUCOSE, SYNOVIAL FLUID 205 mg/dL (.)
[2021-07-18 17:27] LABS: PROTEIN, SYNOVIAL FLUID 3.5 g/dL (.)
== END | disposition home or self-care (01) ==
LOC: LABSPEC 12:31
PROVIDERS: PCP Internal Medicine; Visit Provider Physician Assistant
DX: M25.462 Effusion, left knee (principal); N30.90 Cystitis, unspecified without hematuria
CPT/HCPCS: 82945; 84157; 89050; 89051; 89060

== ENCOUNTER 2021-07-19 04:28 | Emergency (ER) | payer MEDICARE, MEDICAID, SELFPAY ==
[2021-07-19 04:28] VITALS: BP 173/89; PULSE 98; RESP 18; TEMP 35.8; O2SAT 97; BMI 31.4
--- NOTE | 2021-07-19 04:40 | EDS_ITS ---
HPI History of Present Illness Chief Complaint: Lower Extremity Injury Narrative Narrative: Patient presents with left knee pain and swelling that she has had over the last 3 days. She states she had chronic problems with her bilateral knees and has had multiple surgeries. She states she was diagnosed with a Means's cyst behind her left knee. Additionally, she went saw her orthopedics provider who aspirated and took 30 cc of fluid off of her left leg/knee because of an obvious effusion. She states that she got relief with it, but there has been fluid reaccumulation and effusion again. She denies any fevers or chills. No nausea or vomiting. No chest pain or shortness of breath. She states that she had her knee aspirated a month prior to this and had a cortisone injection. She states that this last aspiration a few days ago did not include a steroid injection because the timing was not correct. She presents because of continued pain in her left knee that is worse with movement. She states that the anti- inflammatory that was prescribed to her is not helping. She is complaining of pain and swelling of her left knee. [facility] Medical History Diabetes DM type 2 (diabetes mellitus, type 2) DM2 (diabetes mellitus, type 2) Hay fever Hypertension Kidney disease Poisoning by insulin and oral hypoglycemic [antidiabetic] drugs, accidental (unintentional), initial encounter Raynaud disease Home Medications atenolol 50 mg PO DAILY 05/01/13 [History Last Taken 01/10/20 18:00] gabapentin 100 mg PO BID 05/01/13 [History Last Taken 01/10/20 18:00] losartan 50 mg PO DAILY 05/01/13 [History Last Taken 01/10/20 18:00] metformin 1,000 mg PO BID 05/01/13 [History Last Taken 01/10/20 18:00] montelukast 10 mg PO DAILY 05/01/13 [History Last Taken 01/10/20 08:00] fenofibrate nanocrystallized 145 mg tablet 145 mg PO DAILY 30 Days #30 04/14/17 [History Last Taken 01/10/20 18:00] amlodipine 5 mg PO DAILY 04/15/18 [History Last Taken 01/10/20 18:00] aspirin 81 mg PO DAILY@0800 04/15/18 [History Last Taken 01/10/20 18:00] atorvastatin 20 mg PO DAILY 04/15/18 [History Last Taken 01/10/20 18:00] naproxen 500 mg PO BID PRN PRN #20 tab 04/15/18 [Rx Last Taken Unknown] venlafaxine 150 mg PO DAILY 04/15/18 [History Last Taken 01/10/20 18:00] omeprazole 20 mg PO DAILY 01/10/20 [History Last Taken 01/10/20 18:00] pramipexole 0.5 mg PO DAILY 01/10/20 [History Last Taken 01/10/20 20:00] semaglutide 0.25 mg SQ BARR[place]AN 01/10/20 [History Last Taken 01/06/20 12:00] insulin glargine 100 unit/mL (3 mL) subcutaneous pen 60 unit SUBCUT BID ml 06/01/21 [History Last Taken Unknown] oxaprozin 600 mg tablet 600 mg PO TID #20 tab 07/16/21 [Rx Last Taken Unknown] hydrocodone-acetaminophen 1 tab PO Q6H PRN 3 Days #10 tab 07/19/21 [Rx Last Taken Unknown] Allergy/AdvReac Type Severity Reaction Status Date / Time bupropion [From Wellbutrin] Allergy Hives Verified 07/19/21 04:31 Penicillins Allergy Swelling Verified 07/19/21 04:31 ropinirole HCl [From Requip] Allergy seizure Verified 07/19/21 04:31 Social History Smoking Status: Current every day smoker tobacco type: cigarettes alcohol intake: never ROS ROS ED ROS Narrative Constitutional: No fever, no chills. HEENT: No sore throat. No neck pain. No loss of vision. No rhinorrhea. Cardiovascular: No chest pain. No palpitations. No pedal edema. Respiratory: No cough, no shortness of breath. Abdominal: No abdominal pain. No nausea. No vomiting. Genitourinary: No dysuria. No hematuria. Musculoskeletal: No myalgias. Left knee pain and swelling anterior laterally. Pain behind left knee. Neurologic: No headaches. No dizziness. No lightheadedness. Skin: No rash. No change in color. Psychiatric: No depression. No anxiety. EXAM Physical Exam Narrative Exam Narrative: Afebrile. Vital signs noted. HEENT: Normocephalic. Atraumatic. PERRL, EOMI. Neck soft and supple. No point tenderness or step off. Cardiovascular: Regular rate and rhythm. No murmurs, rubs, or gallops appreciated. Respiratory: No tachypnea. Lungs clear to auscultation bilaterally. Gastrointestinal: Abdomen soft, nontender, with normoactive bowel sounds. No rebound or guarding. Neurological: Awake. Alert. Nonfocal, nonlateralizing. Skin: No rash. Normal color. No pallor. Musculoskeletal: No pedal edema. Decreased range of motion left knee secondary to pain. Mild swelling anterior laterally. No erythema. Neurovascular intact distally. EHL intact. Palpable dorsalis pedis pulse. Mild tenderness in popliteal fossa. Flexion and extension mechanisms intact left knee albeit limited. Const Vital Signs: 07/19/21 04:28 Temperature 96.5 F L Temperature Source Temporal Pulse Rate 98 Respiratory Rate 18 Blood Pressure 173/89 H Blood Pressure Mean 117 Pulse Ox 97 Oxygen Delivery Method Room Air MDM MDM MDM Narrative Medical decision making narrative: I do feel that she may have had fluid reaccumulation and effusion of her left knee has returned. I offered to perform x-rays to see the amount of fluid, but she declined. Additionally, in discussion with the patient about aspiration again, she would like it best left to her orthopedics provider Dr. Gudino. This was after discussion of the chance of infection with needle aspiration and it being performed recently. Additionally, she is diabetic. She states she took 3 Tylenol without relief of her symptoms prior to arrival. She will be given 1 oxycodone tablet here in the emergency department. I reviewed her prescription monitoring and she has not had a recent prescription for narcotics, the last being in April and May. She already takes gabapentin. She will be given a short course of therapy until she can follow-up with her orthopedics provider tomorrow. I feel she be discharged safely home with follow-up. Return instructions to the emergency department were reviewed. Disposition is discharged home in stable condition. Discharge Plan Triage Chief Complaint: Lower Extremity Injury ED Provider: Edilberto Sheth Dx/Rx/DC Orders Clinical Impression: Effusion of left knee, Intractable pain, Posterior left knee pain Instructions: Taking Opioid Medicines, ED Means's Cyst, ED Knee Effusion Prescriptions: New hydrocodone-acetaminophen 5-325 mg tablet 1 tab PO Q6H PRN (Reason: pain) 3 Days Qty: 10 RF: 0 No Action fenofibrate nanocrystallized 145 mg tablet 145 mg PO DAILY 30 Days Qty: 30 RF: 0 oxaprozin 600 mg tablet 600 mg PO TID Qty: 20 RF: 0 losartan 50 MG tablet 50 mg PO DAILY RF: 0 atenolol 25 MG tablet 50 mg PO DAILY RF: 0 metformin 1,000 MG tablet 1,000 mg PO BID RF: 0 gabapentin 300 MG capsule 100 mg PO BID RF: 0 montelukast 10 MG tablet 10 mg PO DAILY RF: 0 atorvastatin 20 MG tablet 20 mg PO DAILY RF: 0 venlafaxine 150 MG capsule,extended release 24hr 150 mg PO DAILY RF: 0 amlodipine 5 MG tablet 5 mg PO DAILY RF: 0 aspirin 81 MG tablet,chewable 81 mg PO DAILY@0800 RF: 0 naproxen 500 MG tablet 500 mg PO BID PRN PRN (Reason: Pain) Qty: 20 RF: 0 pramipexole 0.5 MG tablet 0.5 mg PO DAILY RF: 0 omeprazole 20 MG capsule 20 mg PO DAILY RF: 0 semaglutide 0.25 MG/0.2 ML pen injector 0.25 mg SQ BARR[place]AN RF: 0 insulin glargine 100 unit/mL (3 mL) insulin pen 60 unit subcut BID RF: 0 Primary Care Provider: Danielle Knowels Referrals: Danielle Knowles MD [Primary Care Provider] - Alvin Winston PA [PHYSICIAN PASTA MAKER] - 1 Day Disposition Disposition: Home, Self Care
[2021-07-19] MEDS: oxyCODONE 5 MG Tablet PO (04:42)
== END 2021-07-19 04:57 | disposition home or self-care (01) ==
PROVIDERS: Emergency Provider Emergency Medicine; PCP Internal Medicine; Visit Provider Emergency Medicine
DX: M25.462 Effusion, left knee (principal); M25.562 Pain in left knee; E11.9 Type 2 diabetes mellitus without complications; I10 Essential (primary) hypertension; F17.210 Nicotine dependence, cigarettes, uncomplicated; Z79.82 Long term (current) use of aspirin; Z79.84 Long term (current) use of oral hypoglycemic drugs; Z79.899 Other long term (current) drug therapy
CPT/HCPCS: 99283

== ENCOUNTER → 2021-08-07 | Outpatient (CLI) | payer MEDICARE, MEDICAID, SELFPAY ==
--- NOTE | 2021-08-07 16:11 | MRI_ITS ---
STUDY: MR Knee W/O Contrast 08/07/2021 6:01 PM REASON FOR EXAM: Female, 50 years old. Pain TECHNIQUE: Standardized fat and water weighted pulse sequences were obtained in all 3 orthogonal planes. COMPARISON: xr 2.22. FINDINGS: Normal medial meniscus. Normal hyaline cartilage of the medial femorotibial compartment. Normal medial femoral condyle and tibial plateau. Normal medial collateral ligamentous complex (MCL). Normal distal semimembranosus, gracilis and semitendinosus tendons. Normal lateral meniscus. Normal hyaline cartilage of the lateral femorotibial compartment. There is mild osteoarthritic spur formation of the lateral knee compartment. Normal proximal tibiofibular articulation. Normal lateral collateral (fibular) ligament. Normal popliteus tendon. Normal biceps femoris tendon. Normal anterior cruciate ligament (ACL). Normal posterior cruciate ligament (PCL). There is arthrosis of the patellofemoral articulation. Normal hyaline cartilage of the patellofemoral compartment. Normal medial and lateral patellar retinaculum. Normal quadriceps tendon. Normal patellar tendon. Normal Hoffa''s fat pad. There is a moderate volume joint effusion. The soft tissues are unremarkable. The otherwise visualized osseous structures are unremarkable. MRI/Lower Ext Joint Only (Routine) IMPRESSION: There is a moderate volume joint effusion. There is mild osteoarthritic spur formation of the lateral knee compartment. Electronically Signed: Rene Disla MD at 18:11 EDT ,
== END | disposition home or self-care (01) ==
LOC: MRI 16:11
PROVIDERS: PCP Internal Medicine; Referring Provider Physician Assistant; Visit Provider Physician Assistant
DX: M71.22 Synovial cyst of popliteal space [Baker], left knee (principal)
CPT/HCPCS: 73721

== ENCOUNTER 2022-06-18 18:49 | Emergency (ER) | payer MEDICARE, MEDICAID, SELFPAY ==
[2022-06-18 18:51] VITALS: BP 156/84; PULSE 86; RESP 18; TEMP 35.9; O2SAT 97; BMI 31.5
== END 2022-06-18 20:05 | disposition left against medical advice (07) ==
LOC: ED 20:15
DX: L02.91 Cutaneous abscess, unspecified (principal); Z53.21 Procedure and treatment not carried out due to patient leaving prior to being seen by health care provider

== ENCOUNTER 2022-09-08 21:45 | Emergency (ER) | payer MEDICARE, MEDICAID, SELFPAY ==
[2022-09-08 21:46] VITALS: BP 161/90; PULSE 84; RESP 18; TEMP 36.4; O2SAT 97; BMI 31.9
--- NOTE | 2022-09-08 22:34 | EX.ED.DYSGE1 ---
HPI History of Present Illness Chief Complaint: Hypoglycemia Informant: patient and spouse/S.O. Narrative Narrative: Patient has a history of insulin-dependent diabetes and is currently on Ozempic Toujeo lispro. Patient states that today she took her Ozempic around 130 and then she took her Toujeo as directed which is twice a day which she took around 5 PM and also used her lispro at that time because she ate. She states that her blood sugar began to bottom out that down to approximately 50. She states she was nauseated and having bouts of vomiting and was trying to put food and sugar back into her system secondary to hypoglycemia but was unsuccessful because of the persistent nausea and vomiting. She states she struggled with this for multiple hours at home and not having any improvement decided to come to the ER for evaluation. Patient states she is taking her medications as directed and she is not overdosing or taking exogenous medications. [facility] Medical History Diabetes DM type 2 (diabetes mellitus, type 2) DM2 (diabetes mellitus, type 2) Hay fever Hypertension Kidney disease Poisoning by insulin and oral hypoglycemic [antidiabetic] drugs, accidental (unintentional), initial encounter Raynaud disease Home Medications atenolol 25 mg tablet 50 mg PO DAILY BP 05/01/13 [History Last Taken 01/10/20 18:00] gabapentin 300 mg capsule 100 mg PO BID nerve pain 05/01/13 [History Last Taken 01/10/20 18:00] losartan 50 mg tablet 50 mg PO DAILY BP 05/01/13 [History Last Taken 01/10/20 18:00] metformin 1,000 mg tablet 1,000 mg PO BID diabetes 05/01/13 [History Last Taken 01/10/20 18:00] montelukast 10 mg tablet 10 mg PO DAILY breathing 05/01/13 [History Last Taken 01/10/20 08:00] fenofibrate nanocrystallized 145 mg tablet 145 mg PO DAILY 30 days ##30 04/14/17 [History Last Taken 01/10/20 18:00] amlodipine 5 mg tablet 5 mg PO DAILY BP 04/15/18 [History Last Taken 01/10/20 18:00] aspirin 81 mg chewable tablet 81 mg PO DAILY@0800 heart [facility] 04/15/18 [History Last Taken 01/10/20 18:00] atorvastatin 20 mg tablet 20 mg PO DAILY cholesterol 04/15/18 [History Last Taken 01/10/20 18:00] venlafaxine 150 mg capsule,extended release 24 hr 150 mg PO DAILY anx/dep 04/15/18 [History Last Taken 01/10/20 18:00] omeprazole 20 mg capsule,delayed release 20 mg PO DAILY stomach 01/10/20 [History Last Taken 01/10/20 18:00] pramipexole 0.5 mg tablet 0.5 mg PO DAILY restless legs 01/10/20 [History Last Taken 01/10/20 20:00] semaglutide 0.25 mg or 0.5 mg (2 mg/1.5 mL) subcutaneous pen injector 0.25 mg SQ BARRAGAN diabetes 01/10/20 [History Last Taken 01/06/20 12:00] insulin glargine 100 unit/mL (3 mL) subcutaneous pen 60 unit subcut BID diabetes 06/01/21 [History Last Taken Unknown] oxaprozin 600 mg tablet 600 mg PO TID #20 tabs 07/16/21 [Rx Last Taken Unknown] hydrocodone-acetaminophen 5-325mg 5mg-325mg 1 tab PO Q6H PRN pain 3 days #10 tabs 07/19/21 [Rx Last Taken Unknown] tramadol 50 mg tablet See Rx Instructions PO QHS PRN pain #10 tabs 07/28/21 [Rx Last Taken Unknown] Allergy/AdvReac Type Severity Reaction Status Date / Time bupropion [From Wellbutrin] Allergy Hives Verified 09/08/22 21:47 Penicillins Allergy Swelling Verified 09/08/22 21:47 ropinirole HCl [From Requip] Allergy seizure Verified 09/08/22 21:47 Social History Smoking Status: Current every day smoker tobacco type: cigarettes alcohol intake: never ROS ROS ED Constitutional Constitutional ED: Denies chills or fever(s) ENT ENT ED: Denies sore throat Cardiovascular Cardiovascular: Denies chest pain Respiratory/Chest Respiratory/Chest: Denies cough or dyspnea Gastrointestinal Gastrointestinal: Reports nausea and vomiting; Denies abdominal pain or diarrhea Genitourinary Genitourinary ED: Denies dysuria Musculoskeletal Musculoskeletal: Denies myalgias Integumentary Denies rash Neurologic Neurologic: Reports weakness; Denies headache(s) Psychiatric Psychiatric: Reports anxiety Hematologic/Lymphatic Hematologic/Lymphatic: Denies easy bleeding or easy bruising EXAM Physical Exam Const Vital Signs: 09/08/22 21:46 09/08/22 22:36 09/08/22 22:38 Temperature 97.6 F L Temperature Source Temporal Pulse Rate 84 62 Respiratory Rate 18 15 Respiratory Effort Normal Non-Labored Respiratory Pattern Normal Blood Pressure 161/90 H 125/77 H Blood Pressure Mean 113 Pulse Ox 97 98 Oxygen Delivery Method Room Air Positive well nourished and well developed General Appearance ED: well developed HEENT Reports moist mucous membranes Eyes PERRL and EOMs intact bilaterally General Eye ED: Negative for scleral icterus Neck supple Resp normal respiratory effort and clear to auscultation bilaterally Cardio regular rate and regular rhythm GI non-tender, non-distended and no masses GI Narrative: Abdomen is soft nontender and nondistended with hypoactive bowel sounds no voluntary guarding or rigidity no pulsatile mass Auscultation: hypoactive bowel sounds Palpation: soft Extremity normal to inspection Neuro oriented x3, CN's II-XII intact bilaterally and no sensory deficits noted Neuro Narrative: Cranial nerves II through XII are grossly intact there are no focal neurologic deficits. NIH stroke scale score of 0 Sensorium / Orientation: alert Psych mental status grossly normal Skin no rashes or lesions noted General Skin Exam: Negative for jaundice MDM MDM MDM Narrative Medical decision making narrative: Patient presented to the ER approximately 5 hours after her injection of lispro. At that time a repeat blood sugar was checked in the ER and now is normal at 106. Patient also states she is beginning to feel better and no longer has bouts of nausea or vomiting or feeling fatigued/achy. The patient states she took her lispro around 5 PM and as his duration of action is approximately 5 hours this would correlate with the medication wearing off and now having improvement of her blood sugar. The Ozempic will remain in her system for approximately another 5 to 7 days in the Toujeo will last over the next 24 hours. We discussed obtaining repeat lab work and monitoring the patient for another hour to ensure there is no return of hypoglycemia but at this time as the other medications are unlikely to cause hypoglycemia and the lispro has metabolized out of her system she does not want to stay in the hospital and will talk to her supervisor in charge about changing her medication dose. History & Record Review Discussion w/independent historian: Patient and Significant other Lab Data Attestation: I reviewed the patient's lab results. Labs: Laboratory Results - last 24 hr 09/08/22 22:18 POC Glucose 106 Discharge Plan Triage Chief Complaint: Hypoglycemia ED Provider: Bradley Morin Dx/Rx/DC Orders Clinical Impression: Hypoglycemia due to insulin, Insulin dependent diabetes mellitus Instructions: Blood Sugar Check Steps Prescriptions: No Action fenofibrate nanocrystallized 145 mg tablet 145 mg PO DAILY 30 Days Qty: 30 Label Comments: oxaprozin 600 mg tablet 600 mg PO TID Qty: 20 0RF losartan 50 MG tablet 50 mg PO DAILY atenolol 25 MG tablet 50 mg PO DAILY metformin 1,000 MG tablet 1,000 mg PO BID gabapentin 300 MG capsule 100 mg PO BID montelukast 10 MG tablet 10 mg PO DAILY atorvastatin 20 MG tablet 20 mg PO DAILY venlafaxine 150 MG capsule,extended release 24hr 150 mg PO DAILY amlodipine 5 MG tablet 5 mg PO DAILY aspirin 81 MG tablet,chewable 81 mg PO DAILY@0800 pramipexole 0.5 MG tablet 0.5 mg PO DAILY omeprazole 20 MG capsule 20 mg PO DAILY semaglutide 0.25 MG/0.2 ML pen injector 0.25 mg SQ [place] Label Comments: inject 0.25 milligrams subcutaneously every week for 4 weeks then... (REFER TO PRESCRIPTION NOTES). insulin glargine 100 unit/mL (3 mL) insulin pen 60 unit subcut BID hydrocodone-acetaminophen 5-325 mg tablet 1 tab PO Q6H PRN (Reason: pain) 3 Days Qty: 10 0RF tramadol 50 mg tablet See Rx Instructions PO QHS PRN (Reason: pain) Qty: 10 0RF Rx Instructions: 1-2 tablets PO at bedtime PRN; Primary Care Provider: Care Physician,No Primary Referrals: Care Physician,No Primary [Primary Care Provider] - Activity Restrictions/Additional Instructions: Hold your Toujeo in the morning and contact your supervisor in charge to see if they want you to change your Toujeo from twice a day to once a day or just not take that drug on the same day you take your Ozempic. Please return to the ER should you have any further concerns Disposition Disposition: Home, Self Care Discharge Date/Time: 09/08/22 23:05
[2022-09-08 22:36] VITALS: BP 125/77; PULSE 62; RESP 15; O2SAT 98
[2022-09-08 22:37] LABS: Bedside Glucose 106 mg/dL (74-106)
== END 2022-09-08 23:05 | disposition home or self-care (01) ==
LOC: ED 22:42
PROVIDERS: Emergency Provider Emergency Medicine; Visit Provider Emergency Medicine
DX: E11.649 Type 2 diabetes mellitus with hypoglycemia without coma (principal); Z79.4 Long term (current) use of insulin; I10 Essential (primary) hypertension; R11.2 Nausea with vomiting, unspecified; F17.210 Nicotine dependence, cigarettes, uncomplicated; Z79.82 Long term (current) use of aspirin; Z79.899 Other long term (current) drug therapy
CPT/HCPCS: 82962; 99282

== ENCOUNTER 2024-10-18 21:27 | Emergency (ER) | payer MEDICARE, MEDICAID, SELFPAY ==
[2024-10-18 21:28] VITALS: BP 163/94; PULSE 90; RESP 18; TEMP 36.4; O2SAT 98; BMI 33.8
--- NOTE | 2024-10-18 22:05 | EX.ED.DYSGE1 ---
HPI History of Present Illness Chief Complaint: Hyperglycemia Informant: patient Narrative Narrative: Presents to the ED for evaluation in elevated glucose more night over the last 2 days. Diabetic for the last 16 years. She was previously on oral medicines and insulin managed by primary care doctor. She started seeing a new endocrinology team this past August. There is plans for an insulin pump in the next week. She was taken off her oral medicines. She was continued on her long-acting and short acting insulin. She is on 60 units in the morning and at night. She is on 25 units short acting before meals in addition to sliding scale insulin. Sugars typically in the 200s. She states yesterday 4 hours after eating it was 400s. This morning she woke up and was in the 160s. She did not eat throughout the day only drank coffee. She states it was 250 at 4 PM she took her 25 units of insulin. 5 PM when she ate she took her long-acting of 60 units. This was 5 hours ago. Prior to arrival report her Dexcom readings read too high. She has urine frequency. Mild nonproductive cough. No vomiting no diarrhea. No nausea symptoms. Prior similar symptoms: Yes PFSH PFS Medical History RLS (restless legs syndrome) IBS (irritable bowel syndrome) Depression with anxiety Hyperlipidemia Essential (primary) hypertension SVT (supraventricular tachycardia) 1st degree AV block Pre-syncope Palpitations Fibromyalgia Poisoning by insulin and oral hypoglycemic [antidiabetic] drugs, accidental (unintentional), initial encounter Raynaud disease DM2 (diabetes mellitus, type 2) Hay fever Diabetes Kidney disease Hypertension Home Medications ?Medication ?Instructions ?Recorded ?Last Taken ?Type atenolol 25 mg tablet 50 mg PO DAILY BP 05/01/13 01/10/20 18:00 History losartan 50 mg tablet 50 mg PO DAILY BP 05/01/13 01/10/20 18:00 History montelukast 10 mg tablet 10 mg PO DAILY breathing 05/01/13 01/10/20 08:00 History fenofibrate nanocrystallized 145 145 mg PO DAILY 30 days ##30 04/14/17 01/10/20 18:00 History mg tablet amlodipine 5 mg tablet 5 mg PO DAILY BP 04/15/18 01/10/20 18:00 History aspirin 81 mg chewable tablet 81 mg PO DAILY@0800 [facility] 04/15/18 01/10/20 18:00 History atorvastatin 20 mg tablet 20 mg PO DAILY cholesterol 04/15/18 01/10/20 18:00 History venlafaxine 150 mg 150 mg PO DAILY anx/dep 04/15/18 01/10/20 18:00 History capsule,extended release 24 hr pramipexole 0.5 mg tablet 0.5 mg PO QHS restless legs 01/10/20 01/10/20 20:00 History abatacept 125 mg/mL subcutaneous 125 mg subcut QWEEK 03/16/24 Unknown History syringe (Orencia) celecoxib 200 mg capsule 200 mg PO QDAY 03/16/24 Unknown History famotidine 20 mg tablet 20 mg PO QDAY 03/16/24 Unknown History ferrous sulfate 325 mg (65 mg 325 mg PO .QOD 03/16/24 Unknown History iron) tablet (FeroSul) folic acid 1 mg tablet 1 mg PO DAILY 03/16/24 Unknown History gabapentin 300 mg capsule 100 mg PO .COMPLEX nerve pain 03/16/24 Unknown History hydroxychloroquine 200 mg tablet 200 mg PO BID 03/16/24 Unknown History insulin glargine U-300 conc 300 60 unit subcut BID 03/16/24 Unknown History unit/mL (3 mL) subcutaneous pen ([employer] Max U-300 SoloStar) omeprazole 40 mg capsule,delayed 40 mg PO QDAY 03/16/24 Unknown History release pramipexole 0.125 mg tablet 0.125 mg PO QDAY PRN RLS 03/16/24 Unknown History venlafaxine 75 mg capsule,extended 75 mg PO QDAY 03/16/24 Unknown History release 24 hr blood sugar diagnostic (Sensicast Systemsuch #10 ea 08/31/24 Unknown History Ultra Test strips) blood-glucose sensor (Dexcom G6 #1 ea 08/31/24 Unknown History Sensor device) blood-glucose transmitter (Dexcom #1 ea 08/31/24 Unknown History G6 Transmitter device) diclofenac sodium 1 % topical gel topical 4XD 08/31/24 Unknown History lancets 33 gauge (OnTrak SoftwareTouch Delica #100 ea 08/31/24 Unknown History Plus Lancet) methotrexate sodium 2.5 mg tablet 2.5 mg PO WE 08/31/24 Unknown History pen needle, diabetic 31 gauge x #1,200 ea 08/31/24 Unknown History 3/16 (Easy Touch) insulin lispro 100 unit/mL 25 unit subcut TID 09/24/24 Unknown History subcutaneous pen insulin pump cart,auto,BT,G6/7 #15 ea 09/24/24 Unknown Rx (Omnipod 5 G6-G7 Pods (Gen 5) subcutaneous cartridge) insulin pump cartridge,auto #1 ea 09/24/24 Unknown Rx dose,BT,G6/G7 with controller subcutaneous (Omnipod 5 G6-G7 Intro Kit(Gen 5) subcutaneous cartridge and controller) glucagon 1 mg/0.2 mL subcutaneous 1 mg (0.2 mL) subcut ONCE #0.4 mL 10/01/24 Unknown Rx auto-injector (Gvoke HypoPen 2-Pack) insulin lispro 100 unit/mL 100 unit continuous subcutaneous 10/01/24 Unknown Rx subcutaneous solution (Humalog infusion .continuous #90 mL U-100 Insulin) Allergy/AdvReac Type Severity Reaction Status Date / Time empagliflozin (From Allergy Intermediate yeast Verified 09/24/24 11:19 Jardiance) infection etanercept (From Enbrel) Allergy Intermediate Palpitation Verified 09/24/24 11:19 s bupropion (From Wellbutrin) Allergy Hives Verified 09/24/24 11:19 Penicillins Allergy Swelling Verified 09/24/24 11:19 ropinirole HCl (From Requip) Allergy seizure Verified 09/24/24 11:19 Family History Mother Hypertension Breast cancer Father Parkinson disease Hyperlipidemia Grandmother COPD (chronic obstructive pulmonary disease) CAD (coronary artery disease) Grandfather CAD (coronary artery disease) Surgical History Hx of knee surgery History of hysterectomy including cervix Social History Smoking Status: Current every day smoker tobacco type: cigarettes alcohol intake: never substance use type: does not use ROS ROS ED Constitutional Constitutional ED: Denies chills, fever(s) or sweats ENT ENT ED: Denies sore throat Cardiovascular Cardiovascular: Denies chest pain, leg edema, palpitations or racing heartbeat Respiratory/Chest Respiratory/Chest: Denies cough, dyspnea or dyspnea on exertion Gastrointestinal Gastrointestinal: Denies abdominal pain, diarrhea, nausea or vomiting Genitourinary Genitourinary ED: Reports urinary frequency; Denies dysuria or hematuria Musculoskeletal Musculoskeletal: Denies back pain, extremity pain or neck pain Integumentary Denies rash or wounds Neurologic Neurologic: Denies headache(s), paresthesias or weakness Endocrine Endocrinology: Reports polydipsia and polyuria EXAM Physical Exam Const Vital Signs: 10/18/24 21:28 10/18/24 21:33 Temperature 97.6 F L Temperature Source Oral Pulse Rate 90 Respiratory Rate 18 Respiratory Pattern Normal Blood Pressure 163/94 H Blood Pressure Mean 117 Pulse Ox 98 Oxygen Delivery Method Room Air Positive well nourished and well developed General Appearance ED: well developed and NAD HEENT Reports moist mucous membranes normocephalic and atraumatic Eyes General Eye ED: Yes normal appearance of both eyes Neck full ROM Chest Wall Chest: Negative for tenderness Resp normal respiratory effort and normal air movement Effort and Inspection: symmetric chest movement; Negative for respiratory distress Cardio regular rate, regular rhythm and no murmurs Peripheral Pulses: pulses 2+ throughout GI normal to inspection, nondistended, normoactive bowel sounds and non-tender Palpation: Negative for guarding or rebound tenderness present Extremity normal to inspection General Extremety ED: Negative for edema or tenderness General Extremity: Negative for edema Neuro oriented x3 and no sensory deficits noted Sensorium / Orientation: awake and alert Skin no rashes or lesions noted and no wounds MDM MDM MDM Narrative Medical decision making narrative: Interventions / MDM: Differential diagnosis: Diabetes, diabetic hyperglycemia Diagnosis considered but do not suspect: Diabetic ketoacidosis however workup negative. My EKG interpretation: N/A Imaging independently reviewed and interpreted by myself: N/A External documents reviewed: N/A Test considered but not ordered:N/A ED course: Nontoxic vital stable. Moist mucosal membranes. Reporting polyuria and polydipsia with history of diabetes. Reported Dexcom reading was too high to count prior to arrival. Will check blood glucose, will rule out DKA. Fluids IV started. Will check urine. Nonproductive dry cough, lower suspicion for any pneumonia. Will reevaluate. 1100: Glucose 425, gap was normal at 13 beta hydroxybutyrate normal. She is ordered for 15 units of short acting insulin. Will recheck. 0005: Recheck glucose down to 235. 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 She states she will call tomorrow. All questions were answered. Re-evaluation: stable Disposition discussed with patient/family/significant other: Patient and significant other Case discussed with consulting clinician: N/A This note was generated with [employer] dictation software. It may contain incorrect words, spelling, and punctuation that were not noted in checking the note before signing. Lab Data Attestation: I reviewed the patient's lab results. Labs: Laboratory Results - last 24 hr 10/18/24 10/18/24 10/18/24 21:49 21:55 22:15 WBC 8.2 RBC 4.75 Hgb 14.1 Hct 41.5 MCV 87.4 MCH 29.7 MCHC 34.0 RDW Std Deviation 46.1 H RDW Coeff of Melissa 14.6 Plt Count 489 H MPV 8.8 Immature Gran % (Auto) 0.600 Neut % (Auto) 64.7 Lymph % (Auto) 25.0 [place]ferro % (Auto) 6.4 Eos % (Auto) 2.4 Baso % (Auto) 0.9 Absolute Neuts (auto) 5.3 Absolute Lymphs (auto) 2.06 Nucleated RBC % 0 Sodium 133 Potassium 4.2 Chloride 99 Carbon Dioxide 20.3 L Anion Gap 13 BUN 13 Creatinine 0.82 Estim Creat Clear Calc 83.99 Est GFR (MDRD) Non-Af 84 BUN/Creatinine Ratio 15.9 Glucose 425 H Calcium 9.9 b-Hydroxybutyric mmol/L 0.0 Urine Color Straw Urine Clarity Clear Urine pH 6.0 Ur Specific [place] 1.015 Urine Protein 100 H Urine Glucose (UA) 1000 H Urine Ketones Negative Urine Occult Blood 10 H Urine Nitrite Negative Urine Bilirubin Negative Urine Urobilinogen Normal Ur Leukocyte Esterase Negative Urine RBC 0-5 SEEN Urine WBC 0-5 SEEN Ur Squamous Epith Cells 0-5 SEEN Urine Bacteria 1+ Urine Mucus 2+ POC Glucose 395 H Discharge Plan Triage Chief Complaint: Hyperglycemia ED Provider: Lorenzo Vizcarra Dx/Rx/DC Orders Clinical Impression: Type 1 diabetes mellitus with hyperglycemia, Raynaud disease, Hyperglycemia Instructions: Diabetes Carbs Fats Protein Prescriptions: No Action fenofibrate nanocrystallized 145 mg tablet 145 mg PO DAILY 30 Days Qty: 30 Patient Comments: omeprazole 40 mg capsule,delayed release(DR/EC) 40 mg PO QDAY venlafaxine 75 mg capsule,extended release 24hr 75 mg PO QDAY ferrous sulfate [FeroSul] 325 mg (65 mg iron) tablet 325 mg PO .QOD pramipexole 0.125 mg tablet 0.125 mg PO QDAY PRN (Reason: RLS) famotidine 20 mg tablet 20 mg PO QDAY celecoxib 200 mg capsule 200 mg PO QDAY insulin glargine U-300 conc [Tou[employer] Max U-300 SoloStar] 300 unit/mL (3 mL) insulin pen 60 unit subcut BID folic acid 1 mg tablet 1 mg PO DAILY hydroxychloroquine 200 mg tablet 200 mg PO BID Orencia 125 mg/mL syringe 125 mg subcut QWEEK diclofenac sodium 1 % gel topical 4XD methotrexate sodium 2.5 mg tablet 2.5 mg PO WE (DME) pen needle, diabetic [Easy Touch] 31 gauge x 3/16 needle See Rx Instructions .ROUTE .MEDSUPPLY Qty: 1200 Patient Comments: [NO ORIGINAL SIG] Rx Instructions: As directed (DME) Dexcom G6 Sensor Device See Rx Instructions .ROUTE .MEDSUPPLY Qty: 1 Rx Instructions: As directed (DME) lancets [OneTouch Delica Plus Lancet] 33 gauge misc See Rx Instructions .ROUTE .MEDSUPPLY Qty: 100 Patient Comments: [NO ORIGINAL SIG] Rx Instructions: As directed (DME) OneTouch Ultra Test Strip See Rx Instructions .ROUTE .MEDSUPPLY Qty: 10 Patient Comments: [NO ORIGINAL SIG] Rx Instructions: As directed (DME) Dexcom G6 Transmitter Device See Rx Instructions .ROUTE .MEDSUPPLY Qty: 1 Patient Comments: [NO ORIGINAL SIG] Rx Instructions: As directed insulin lispro 100 unit/mL insulin pen 25 unit subcut TID Rx Instructions: +SS (DME) Omnipod 5 G6-G7 Intro Kt(Gen5) Cartridge See Rx Instructions .Route Qty: 1 0RF Rx Instructions: As directed (DME) Omnipod 5 G6-G7 Pods (Gen 5) Cartridge See Rx Instructions .Route Qty: 15 5RF Rx Instructions: 1 pod q 48 hours losartan 50 MG tablet 50 mg PO DAILY atenolol 25 MG tablet 50 mg PO DAILY montelukast 10 MG tablet 10 mg PO DAILY gabapentin 300 mg capsule 100 mg PO .COMPLEX Rx Instructions: 100 mg in AM and lunch; take 300mg at HS atorvastatin 20 MG tablet 20 mg PO DAILY venlafaxine 150 MG capsule,extended release 24hr 150 mg PO DAILY amlodipine 5 MG tablet 5 mg PO DAILY aspirin 81 MG tablet,chewable 81 mg PO DAILY@0800 pramipexole 0.5 MG tablet 0.5 mg PO QHS insulin lispro [Humalog U-100 Insulin] 100 unit/mL solution 100 unit continuous subcutaneous infusion .continuous Qty: 90 1RF Gvoke HypoPen 2-Pack 1 mg/0.2 mL auto-injector 1 mg subcut ONCE Qty: 0.4 5RF Rx Instructions: as a single dose; may repeat once after 15 minutes if no response Primary Care Provider: Danielle Knowles Referrals: Danielle Knowles MD [Primary Care Provider] - Activity Restrictions/Additional Instructions: Your workup negative for diabetic ketoacidosis. Glucose was 425 in the lab down to 235 on recheck after additional 15 units of short acting insulin. Discussed with your endocrinology team for adjustments of your insulin. Print Language: Kenyan Disposition Disposition: Home, Self Care Discharge Date/Time: 10/19/24 00:18
[2024-10-18] MEDS: 0.9% Normal Saline (1000mL) 1,000 ML 1000 ML IV (22:18)
[2024-10-18 22:19] LABS: Hematocrit 41.5 % (37-47); Hemoglobin 14.1 g/dL (12.0-15.0); Immature Granulocytes Count 0.050 X10^3/uL (0.0-0.0); Mean Corp Hgb Conc 34.0 g/dL (32-36); Mean Corpuscular Volume 87.4 fL (81-99); Mean Platelet Vol. 8.8 fl (6.2-12.0); NRBC Flagged by Analyzer 0 % (0-5); Platelet Count 489 K/mm3 (150-450); RBC Distribution Width CV 14.6 % (11.6-14.6); RBC Distribution Width SD 46.1 fl (35.1-43.9); Red Blood Count 4.75 M/mm3 (4.2-5.4); White Blood Count 8.2 K/mm3 (4.4-11.0)
[2024-10-18 22:22] LABS: Color, Urine Straw (Yellow); Glucose, Dipstick 1000 mg/dl (Normal); Ketone-Dipstick Negative (Negative); Leukocyte Esterase-Dipstick Negative /ul (Negative); Nitrite-Dipstick Negative (Negative); Occult Blood-Urine 10 /ul (Negative); Protein-Dipstick 100 mg/dl (Negative); Specific Gravity, Urine 1.015 (1.002-1.030); Urine Bilirubin Dipstick Negative (Negative)
[2024-10-18 22:34] LABS: Red Blood Cells-Urine 0-5 SEEN /hpf (0-5); Squamous Epithelial Cells - UA 0-5 SEEN /hpf (5-10)
[2024-10-18 22:35] LABS: Mucous, Urine 2+ /hpf (<or=2+)
[2024-10-18 22:45] LABS: Anion Gap 13 (5-15); BUN 13 mg/dL (4-19); BUN/Creat Ratio 15.9 RATIO (10-20); Calcium,Total 9.9 mg/dL (7.6-11.0); Carbon Dioxide 20.3 mmol/L (21.0-32.0); Chloride 99 mmol/L (98-108); Estimated Creatinine Clearance 83.99 ml/min (50-250); Glucose 425 mg/dL (70-99); Potassium 4.2 mmol/L (3.3-5.1)
[2024-10-18 23:02] LABS: BETA-HYDROXYBUTYRATE 0.0 mmol/L (0.0-0.3)
[2024-10-19 00:03] VITALS: BP 138/76; PULSE 81; RESP 19; TEMP 36.6; O2SAT 98
== END 2024-10-19 00:18 | disposition home or self-care (01) ==
PROVIDERS: Emergency Provider Emergency Medicine; PCP Internal Medicine; Referring Provider Emergency Medicine; Visit Provider Emergency Medicine
DX: E10.65 Type 1 diabetes mellitus with hyperglycemia (principal); Z79.4 Long term (current) use of insulin; I10 Essential (primary) hypertension; E78.5 Hyperlipidemia, unspecified; I73.00 Raynaud's syndrome without gangrene; Z79.82 Long term (current) use of aspirin; Z79.899 Other long term (current) drug therapy; F17.210 Nicotine dependence, cigarettes, uncomplicated
CPT/HCPCS: 80048; 81001; 82010; 82962; 85025; 96360; 99283; A4216

== ENCOUNTER 2025-02-21 11:02 | Emergency (ER) | payer MEDICARE, MEDICAID, SELFPAY ==
[2025-02-21 11:02] VITALS: BP 191/83; PULSE 86; RESP 16; TEMP 36.7; O2SAT 98; BMI 34.8
--- NOTE | 2025-02-21 11:14 | EX.ED.DYSGE1 ---
HPI History of Present Illness Chief Complaint: Overdose Detail of Chief Complaint: Inadvertently injected herself with 60 units of regular instead of 60 units Informant: patient Onset/Context/Timing Onset: Today and Hours (30 minutes prior to presentation) Context: - (Not applicable) Timing: - (Single subcu injection) Quality: 60 units of regular versus 60 units of long-acting Current Severity: Presently has no symptoms of hypoglycemia Maximum Severity: None/not applicable Worsened by: Injected herself with the wrong insulin Relieved by: Not applicable Associated Symptoms Associated Symptoms: upset Narrative Narrative: Patient is a 54-year-old woman with type I and insulin-dependent diabetes. She has been diabetic for 16 years. She does have history of restless leg syndrome, irritable bowel syndrome, SVT, primary essential hypertension, hyperlipidemia, Raynaud's disease and rheumatoid arthritis. She is presently on prednisone. She does have an insulin pump. Patient presents because she accidentally inject herself with 60 units of regular insulin instead of 60 units of long-acting insulin. Patient is upset. She presently has no symptoms of hypoglycemia Prior similar symptoms: No Recent Illness/Hospitalization: No [facility] Medical History RLS (restless legs syndrome) IBS (irritable bowel syndrome) Depression with anxiety Hyperlipidemia Essential (primary) hypertension SVT (supraventricular tachycardia) 1st degree AV block Pre-syncope Palpitations Fibromyalgia Poisoning by insulin and oral hypoglycemic [antidiabetic] drugs, accidental (unintentional), initial encounter Raynaud disease DM2 (diabetes mellitus, type 2) Hay fever Diabetes Kidney disease Hypertension Home Medications ?Medication ?Instructions ?Recorded ?Last Taken ?Type losartan 50 mg tablet 50 mg PO DAILY BP 05/01/13 01/10/20 18:00 History montelukast 10 mg tablet 10 mg PO DAILY breathing 05/01/13 01/10/20 08:00 History fenofibrate nanocrystallized 145 145 mg PO DAILY 30 days ##30 04/14/17 01/10/20 18:00 History mg tablet amlodipine 5 mg tablet 5 mg PO DAILY BP 04/15/18 01/10/20 18:00 History aspirin 81 mg chewable tablet 81 mg PO DAILY@0800 heart health 04/15/18 01/10/20 18:00 History atorvastatin 20 mg tablet 20 mg PO DAILY cholesterol 04/15/18 01/10/20 18:00 History pramipexole 0.5 mg tablet 0.5 mg PO QHS restless legs 01/10/20 01/10/20 20:00 History abatacept 125 mg/mL subcutaneous 125 mg subcut QWEEK 03/16/24 Unknown History syringe (Orencia) celecoxib 200 mg capsule 200 mg PO QDAY 03/16/24 Unknown History famotidine 20 mg tablet 20 mg PO QDAY 03/16/24 Unknown History ferrous sulfate 325 mg (65 mg 325 mg PO .QOD 03/16/24 Unknown History iron) tablet (FeroSul) hydroxychloroquine 200 mg tablet 200 mg PO BID 03/16/24 Unknown History omeprazole 40 mg capsule,delayed 40 mg PO QDAY 03/16/24 Unknown History release pramipexole 0.125 mg tablet 0.125 mg PO QDAY PRN RLS 03/16/24 Unknown History venlafaxine 75 mg capsule,extended 75 mg PO QDAY 03/16/24 Unknown History release 24 hr blood-glucose sensor ([employer] G6 #1 ea 08/31/24 Unknown History Sensor device) diclofenac sodium 1 % topical gel topical 4XD 08/31/24 Unknown History pen needle, diabetic 31 gauge x #1,200 ea 08/31/24 Unknown History 06/10 (Easy Touch) glucagon 1 mg/0.2 mL subcutaneous 1 mg (0.2 mL) subcut ONCE #0.4 mL 10/01/24 Unknown Rx auto-injector (Gvoke HypoPen 2-Pack) blood sugar diagnostic (Accu-Chek #50 ea 10/25/24 Unknown Rx Guide test strips) blood-glucose meter (Accu-Chek #1 ea 10/25/24 Unknown Rx Guide Glucose Meter) lancets (Accu-Chek Fastclix Lancet #100 ea 10/25/24 Unknown Rx Drum) atenolol 50 mg tablet 50 mg PO QDAY 01/30/25 Unknown History gabapentin 100 mg capsule 100 mg PO BID 01/30/25 Unknown History gabapentin 300 mg capsule 300 mg PO QHS nerve pain 01/30/25 Unknown History insulin lispro 200 unit/mL (3 mL) 200 unit subcut .daily via pump 01/30/25 Unknown Rx subcutaneous pen (Humalog KwikPen #90 mL U-200 Insulin) leflunomide 20 mg tablet 20 mg PO QDAY 01/30/25 Unknown History losartan 100 mg tablet 100 mg PO QDAY 01/30/25 Unknown History insulin pump cart,auto,BT,G6/7 #15 ea 02/11/25 Unknown Rx (Omnipod 5 G6-G7 Pods (Gen 5) subcutaneous cartridge) blood-glucose transmitter (Dexcom #1 ea 02/18/25 Unknown Rx G6 Transmitter device) Allergy/AdvReac Type Severity Reaction Status Date / Time empagliflozin (From Allergy Intermediate yeast Verified 02/21/25 11:06 Jardiance) infection etanercept (From Enbrel) Allergy Intermediate Palpitation Verified 02/21/25 11:06 s bupropion (From Wellbutrin) Allergy Hives Verified 02/21/25 11:06 Penicillins Allergy Swelling Verified 02/21/25 11:06 ropinirole HCl (From Requip) Allergy seizure Verified 02/21/25 11:06 Family History Mother Hypertension Breast cancer Father Parkinson disease Hyperlipidemia Grandmother COPD (chronic obstructive pulmonary disease) CAD (coronary artery disease) Grandfather CAD (coronary artery disease) Surgical History Hx of knee surgery History of hysterectomy including cervix Social History Smoking Status: Current every day smoker tobacco type: cigarettes alcohol intake: never substance use type: does not use ROS ROS ED Constitutional Constitutional ED: Denies chills, fever(s), subjective, sweats or weight loss Eyes Eyes: Denies blurry vision or change in vision ENT ENT ED: Denies ear pain, rhinorrhea or sore throat Cardiovascular Cardiovascular: Denies chest pain or palpitations Respiratory/Chest Respiratory/Chest: Denies cough, dyspnea or dyspnea on exertion Gastrointestinal Gastrointestinal: Denies abdominal pain, nausea or vomiting Endocrine Endocrinology: Denies polydipsia or polyuria Hematologic/Lymphatic Hematologic/Lymphatic: Denies easy bleeding or easy bruising EXAM Physical Exam Const Vital Signs: 02/21/25 11:02 02/21/25 12:58 02/21/25 14:00 Temperature 98.1 F Temperature Source Temporal Pulse Rate 86 67 71 Respiratory Rate 16 18 14 Blood Pressure 191/83 H 102/68 135/55 H Blood Pressure Mean 119 79 81 Pulse Ox 98 94 97 Oxygen Delivery Method Room Air Room Air Positive well nourished and well developed Constitutional Narrative: Patient is upset. She is tearful. BMI is 34.9. General Appearance ED: well developed; Negative for pallor HEENT Reports moist mucous membranes HEENT Narrative: Head is atraumatic and normocephalic. Ears normal. Nares patent. Posterior pharynx is normal. Eyes PERRL and EOMs intact bilaterally General Eye ED: Negative for pale conjunctiva or scleral icterus Neck no lymphadenopathy, supple and no JVD Resp normal respiratory effort and clear to auscultation bilaterally Cardio regular rate, regular rhythm, S1 normal heart sound, S2 normal heart sound and no murmurs Extremity normal to inspection General Extremety ED: Negative for edema or tenderness General Extremity: Negative for edema Neuro oriented x3 and CN's II-XII intact bilaterally Sensorium / Orientation: alert Psych Mood & Affect: anxious Skin no rashes or lesions noted, no wounds and No skin turgor normal Skin Narrative: Patient is slightly diaphoretic. Nurse stated she checked her blood sugar once and it prior to me entering the room and was 208. General Skin Exam: Negative for jaundice or pallor MDM MDM MDM Narrative Medical decision making narrative: Inadvertent/accidental administration of wrong insulin type. Will place patient on the monitor determine if she becomes tachycardic. Will assess BGT hourly. IV was established in the event that she needs D10/D25. Lab Data Labs: Laboratory Results - last 24 hr 02/21/25 02/21/25 02/21/25 11:11 12:18 13:22 POC Glucose 208 H 241 H 213 H Treatment and Re-Evaluation :: Patient was reassessed at 1242. She was informed of the plan. If the next 2 BGT's are normal she will be discharged to home. BGT at 1320 was 214. Comments:: BGT at 1420 is 197. Therefore we will discharge to home Discharge Plan Triage Chief Complaint: Overdose ED Provider: Fidel Alcantara Dx/Rx/DC Orders Clinical Impression: Unintentional poisoning by insulin, Type 1 diabetes mellitus with hyperglycemia, Raynaud disease, IBS (irritable bowel syndrome), Fibromyalgia Instructions: ED Diabetic Insulin Reaction Prescriptions: No Action fenofibrate nanocrystallized 145 mg tablet 145 mg PO DAILY 30 Days Qty: 30 Patient Comments: omeprazole 40 mg capsule,delayed release(DR/EC) 40 mg PO QDAY venlafaxine 75 mg capsule,extended release 24hr 75 mg PO QDAY ferrous sulfate [FeroSul] 325 mg (65 mg iron) tablet 325 mg PO .QOD pramipexole 0.125 mg tablet 0.125 mg PO QDAY PRN (Reason: RLS) famotidine 20 mg tablet 20 mg PO QDAY celecoxib 200 mg capsule 200 mg PO QDAY hydroxychloroquine 200 mg tablet 200 mg PO BID Orencia 125 mg/mL syringe 125 mg subcut QWEEK diclofenac sodium 1 % gel topical 4XD (DME) pen needle, diabetic [Easy Touch] 31 gauge x 3/16 needle See Rx Instructions .ROUTE .MEDSUPPLY Qty: 1200 Patient Comments: [NO ORIGINAL SIG] Rx Instructions: As directed (DME) Dexcom G6 Sensor Device See Rx Instructions .ROUTE .MEDSUPPLY Qty: 1 Rx Instructions: As directed leflunomide 20 mg tablet 20 mg PO QDAY gabapentin 100 mg capsule 100 mg PO BID losartan 100 mg tablet 100 mg PO QDAY atenolol 50 mg tablet 50 mg PO QDAY Humalog KwikPen Insulin 200 unit/mL (3 mL) insulin pen 200 unit subcut .daily via pump Qty: 90 1RF losartan 50 MG tablet 50 mg PO DAILY montelukast 10 MG tablet 10 mg PO DAILY gabapentin 300 mg capsule 300 mg PO QHS atorvastatin 20 MG tablet 20 mg PO DAILY amlodipine 5 MG tablet 5 mg PO DAILY aspirin 81 MG tablet,chewable 81 mg PO DAILY@0800 pramipexole 0.5 MG tablet 0.5 mg PO QHS Gvoke HypoPen 2-Pack 1 mg/0.2 mL auto-injector 1 mg subcut ONCE Qty: 0.4 5RF Rx Instructions: as a single dose; may repeat once after 15 minutes if no response (DME) blood-glucose meter [Accu-Chek Guide Glucose Meter] Misc See Rx Instructions .Route Qty: 1 0RF Rx Instructions: As directed (DME) Accu-Chek Guide test strips Strip See Rx Instructions .Route Qty: 50 6RF Rx Instructions: in case of hypoglycemia or CGM failure (DME) lancets [Accu-Chek Fastclix Lancet Drum] Misc See Rx Instructions .Route Qty: 100 6RF Rx Instructions: As directed (DME) Omnipod 5 G6-G7 Pods (Gen 5) Cartridge See Rx Instructions .Route Qty: 15 5RF Rx Instructions: 1 pod q 48 hours (DME) Dexcom G6 Transmitter Device See Rx Instructions .ROUTE .MEDSUPPLY Qty: 1 3RF Rx Instructions: 1 transmitter q 90 days Primary Care Provider: Danielle Knowles Referrals: Danielle Knowles MD [Primary Care Provider, Internal Medicine] - As Needed Print Language: Cameroonian Disposition Disposition: Home, Self Care
--- OUTSIDE RECORDS SUMMARY | 2025-02-21 11:37 | XMS RPT_ITS | CCD ---
Author Organization [facility] CliniSyne Care Team Providers Care Aerial Photogrammetrist Name Role Phone DR MELYSSA MOBLEY MD Primary Care Physician Melyssa Mobley MD Primary Care Provider [facility], [place] Unavailable Dr. Melyssa Mobley Primary Care Provider Dr. Jordy Barksdale Attending Provider Dr. Deepika Vegas Referring Provider Dr. Melyssa Mobley Referring Provider MARY Wong Attending Provider Dr. Willie Oviedo Attending Provider MARY Wong Referring Provider Melyssa Mobley MD Primary Care Provider [facility], [place] Unavailable [facility], [place] Unavailable Melyssa Mobley MD Primary Care Provider [facility], [place] Unavailable DR MELYSSA MOBLEY MD Primary Care Physician GIO FERRARA DO Attending Unavailable DR MELYSSA MOBLEY MD Primary Care Unavailabl e Melyssa Mobley MD Primary Care Provider Melyssa Mobley MD Primary Care Provider Melyssa Mobley MD Primary Care Provider [facility], Brenda Unavailable Melyssa Mobley MD Primary Care Provider Denbow PA-C, Smiley L Unavailable Older MEDICAL AFFAIRS SPECIALIST.AERIAL PHOTOGRAMMETRIST, Gela Unavailable Bogner PA-C, Ailin Unavailable Denbow PA-C, Smiley L Unavailable Bogner PA-C, Ailin Unavailable Dr. Melyssa Mobley MD Primary Care Provider Dr. Melyssa Mobley MD Referring Provider Venkata PRADHAN-CLove Attending Provider Carmita PARKS, Dr. Ventura Referring Provider Dr. Lorenzo Vizcarra DO Emergency Provider [phone] Ganta, Melyssa Primary Care Unavailable Love Hastings Attending Unavailable Ganta, Melyssa Referring Unavailable OLDER, GELA Referring Unavailable Willie Oviedo Attending Unavailable Ganta, Melyssa Primary Care Unavailable Jarod Ohara Attending Unavail able Ganta, Melyssa Primary Care Unavailable Ganta, Melyssa Referring Unavailable Le, Lorenzo Attending Unavailable Le, Lorenzo Referring Unavailable Ganta, Melyssa Primary Care Unavailable Love Hastings Attending Unavailable Ganta, Melyssa Primary Care Unavailable Ganta, Melyssa Referring Unavailable GANTA, MELYSSA Primary Care Unavailable OLDER, GELA Attending Unavailable GANTA, MELYSSA Primary Care Unavailable BENDARAM, AMADA DIAZ Attending Unavaila ble GANTA, MELYSSA Primary Care Unavailable GANTA, MELYSSA Primary Care Unavailable LUDY OREILLY Attending Unavailable BENDARAM, AMADA DIAZ Referring Unavaila ble GANTA, MELYSSA Primary Care Unavailable BENDARAM, AMADA DIAZ Referring Unavaila ble GANTA, MELYSSA Primary Care Unavailable GANTA, MELYSSA Primary Care Unavailable OLDER, GELA Attending Unavailable GANTA, MELYSSA Primary Care Unavailable BENDARAM, AMADA DIAZ Attending Unavaila ble GANTA, MELYSSA Primary Care Unavailable OLDER, GELA Attending Unavailable SELF Referring Unavailable GANTA, MELYSSA Primary Care Unavailable OLDER, GELA Referring Unavailable GANTA, MELYSSA Primary Care Unavailable OLDER, GELA Attending Unavailable GANTA, MELYSSA Primary Care Unavailable GANTA, MELYSSA Primary Care Unavailable GANTA, MELYSSA Attending Unavailable MELYSSA MOBLEY Primary Care Unavailable MELYSSA MOBLEY Primary Care Unavailable ODILON BARBER Attending Unavailable MELYSSA MOBLEY Primary Care Unavailable ODILON BARBER Attending Unavailable ODILON BARBER Attending Unavailable MELYSSA MOBLEY Primary Care Unavailable Allergies Allergy Classification Reported Allergen(s) Allergy Type Date of Onset Reaction(s) Facility (20 sources) buPROPion; Translations: [bupropion] Drug Allergy 2 Other [facility] (2 sources) Penicillin; Translations: [penicillin] Drug Allergy [facility] (20 sources) rOPINIRole; Translations: [ropinirole] Drug Allergy 4 Other: See Comments [facility] (20 sources) buPROPion; Translations: [BUPROPION HCL] Drug Allergy 0 Rash [facility] (20 sources) empagliflozin; Translations: [EMPAGLIFLOZIN] Drug Allergy 0 Other: See Comments [facility] Work Phone: (20 sources) Penicillin G; Translations: [PENICILLIN G] Drug Allergy 4 Swelling [facility] (20 sources) Penicillins; Translations: [Penicillins] Allergy to substance [address] [facility] (8 sources) rOPINIRole; Translations: [ropinirole HCl] Drug Allergy [address] [facility] (20 sources) empagliflozin Drug Allergy 2 [facility] (20 sources) Etanercept; Translations: [ETANERCEPT] Drug Allergy 4 Other: See Comments [facility] (1 source) buPROPion Drug Allergy [address] [facility] Repository (1 source) empagliflozin Drug Allergy [address] [facility] Rep[facility] (1 source) Etanercept Drug Allergy [address] [facility] Repository Medications Current Medications Medication Drug Class(es) Dates Sig (Normalized) Sig (Original) 1 ml abatacept 125 mg/ml auto-injector (20 sources) Selective T Cell Costimulation Modulator Start: 12-10-2024 Abatacept (Orencia ClickJect) 125 MG/ML solution auto-injector Indications: Seronegative rheumatoid arthritis (HCC) Inject 125 mg under the skin every 7 days. 4 mL 5 12/12/2024 10:00 AM EDT 12/10/2024 Active Start: 03-16-2024 Abatacept (Ore ncia) 125 mg/mL syringe Active 125 mg SC EVERY WEEK March 16, 2024 1:00am Start: 02-14-2024 End: 12-07-2024 inject 125 mg by subcutaneous injection every week in the evening Abatacept (Orencia ClickJect) 125 MG/ML solution auto-injector Inject 125mg under the skin once a week 4 mL 5 11/14/2024 1:29 PM EDT 06/13/2024 12/07/2024 Discontinued (Reorder) acetaminophen 325 mg / oxyCODONE hydrochloride 5 mg oral tablet (1 source) Opioid Agonist Start: 05-13-2021 End: 05-16-2021 take 1 tablet by mouth every six hours as needed for pain Percocet 5 mg-325 mg oral tablet Dose = 1 tab(s), Oral, q6h, PRN for pain, X 3 day(s), # 12 tab(s), 0 Refill(s), Prepatellar bursitis of left knee Osteoarthritis of left knee joint, 81.8 Start Date: 05/13/21 Stop Date: 05/16/21 Status: Ordered amLODIPine 5 mg oral tablet (20 sources) Dihydropyridine Calcium Channel Rico Start: 04-15-2018 End: 02-29-2024 take 1 tablet by mouth in the morning amLODIPine (Norvasc) 5 MG tablet Take 5 mg by mouth in the morning. 06/25/2021 Active Comment on above: Take 1 tablet by belle th once daily. aspirin 81 mg chewable tablet (20 sources) Platelet Aggregation Inhibitor, Nonsteroidal Anti-inflammatory Drug Start: 04-15-2018 take 1 tablet by mouth once daily Aspirin 81 MG tablet,chewable Active 81 mg PO DAILY@0800 April 15, 2018 1:00am [employer] Start: 01-13-2015 End: 08-09-2024 take 1 tablet by mouth in the morning aspirin 81 MG EC tablet Take 81 mg by mouth in the morning. 01/13/2015 Active Comment on above: Take 1 tablet by belle th once daily. atenolol 50 mg oral tablet (20 sources) beta-Adrenergic Rico Start: 09-07-2018 End: 02-29-2024 take 1 tablet by mouth in the morning atenolol (Tenormin) 50 MG tablet Take 50 mg by mouth in the morning. 06/25/2021 Active Start: 05-01-2013 take 2 tablets by mo uth once daily Atenolol 25 MG tablet Active 50 mg PO DAILY May 01, 2013 1:00am BP Start: 05-01-2013 take 50 mg by mouth once daily Atenolol Active 50 MG PO DAILY May 01, 2013 1:00am Comment on above: Take 1 tablet by belle th once daily. atorvastatin 40 mg oral tablet (20 sources) HMG-CoA Reductase Inhibitor Start: take 1 tablet by mouth once daily atorvastatin (LIPITOR) 40 mg tablet Indications: Hyperlipidemia, unspecified hyperlipidemia type Take 1 tablet by mouth once daily. 90 tablet 3 03/16/2024 Active Start: 04-15-2018 End: 03-16-2024 take 1 tablet by mouth in the morning atorvastatin (Lipitor) 20 MG tablet Take 20 mg by mouth in the morning. 06/25/2021 Active Comment on above: Take 1 tablet by belle th once daily. Blood-Glucose Meter,Continuous (DEXCOM G6 NAVAL SCIENCE TEACHER) [facility] (20 sources) Start: 10-22-2022 Blood-Glucose Meter,Continuous (DEXCOM G6 NAVAL SCIENCE TEACHER) [facility] Indications: Type 2 diabetes mellitus with diabetic nephropathy, with long-term current use of insulin (HCC) 1 Each continuous. 1 Each 10/22/2022 Active Start: 10-22-2022 Blood-Glucose Meter,Continuous (DEXCOM G6 NAVAL SCIENCE TEACHER) [facility] Indications: Type 2 diabetes mellitus with diabetic nephropathy, with long-term current use of insulin (HCC) 1 Each continuous. 1 Each 0 10/22/2022 Active Start: 09-22-2022 End: 10-21-2022 Blood-Glucose Meter,Continuo us (DEXCOM G6 NAVAL SCIENCE TEACHER) [facility] [place] Indications: Type 2 diabetes mellitus with diabetic nephropathy, with long-term current use of insulin (HCC) 1 Each continuous. 1 Each 0 09/22/2022 10/21/2022 Discontinued Start: 09-22-2022 Blood-Glucose Meter,Continuous (DEXCOM G6 NAVAL SCIENCE TEACHER) [facility] [place] Indications: Type 2 diabetes mellitus with diabetic nephropathy, with long-term current use of insulin (HCC) 1 Each continuous. 1 Each 0 09/22/2022 Active Start: 09-17-2022 End: 09-22-2022 Blood-Glucose Meter,Continuo us (DEXCOM G6 NAVAL SCIENCE TEACHER) [facility] [place] Indications: Type 2 diabetes mellitus with diabetic nephropathy, with long-term current use of insulin (HCC) 1 Each continuous. 1 Each 0 09/17/2022 09/22/2022 Discontinued Start: 09-17-2022 Blood-Glucose Meter,Continuous (DEXCOM G6 NAVAL SCIENCE TEACHER) [facility] [place] Indications: Type 2 diabetes mellitus with diabetic nephropathy, with long-term current use of insulin (HCC) 1 Each continuous. 1 Each 0 09/17/2022 Active Comment on above: 1 Each continuous. Blood-Glucose Sensor (DEXCOM G6 SENSOR) [facility] (20 sources) Start: 02-15-2024 Blood-Glucose Sensor (DEXCOM G6 SENSOR) [facility] Change sensor every 10 days. USE FOR CONTINUOUS GLUCOSE MONITORING. MULTIPLE INSULIN INJECTIONS. E11.9 9 Each 3 02/15/2024 Active Start: 04-06-2023 End: 02-14-2024 Blood-Glucose Sensor (DEXCOM G6 SENSOR) [facility] Change sensor every 10 days. USE FOR CONTINUOUS GLUCOSE MONITORING. MULTIPLE INSULIN INJECTIONS. E11.9 9 Each 3 04/06/2023 02/14/2024 Discontinued Start: 04-06-2023 Blood-Glucose Sensor (DEXCOM G6 SENSOR) [place] Change sensor every 10 days. USE FOR CONTINUOUS GLUCOSE MONITORING. MULTIPLE INSULIN INJECTIONS. E11.9 9 Each 3 04/06/2023 Active Start: 10-22-2022 End: 04-06-2023 Blood-Glucose Sensor (DEXCOM G6 SENSOR) [facility] Indications: Type 2 diabetes mellitus with diabetic nephropathy, with long-term current use of insulin (HCC) 1 Each continuous. 9 Each 3 10/22/2022 04/06/2023 Discontinued Start: 10-22-2022 Blood-Glucose Sensor (DEXCOM G6 SENSOR) [place] Indications: Type 2 diabetes mellitus with diabetic nephropathy, with long-term current use of insulin (HCC) 1 Each continuous. 9 Each 3 10/22/2022 Active Start: 09-22-2022 End: 10-21-2022 Blood-Glucose Sensor (DEXCOM G6 SENSOR) [facility] Indications: Type 2 diabetes mellitus with diabetic nephropathy, with long-term current use of insulin (HCC) 1 Each continuous. 9 Each 3 09/22/2022 10/21/2022 Discontinued Start: 09-22-2022 Blood-Glucose Sensor (DEXCOM G6 SENSOR) [facility] Indications: Type 2 diabetes mellitus with diabetic nephropathy, with long-term current use of insulin (HCC) 1 Each continuous. 9 Each 3 09/22/2022 Active Start: 09-17-2022 End: 09-22-2022 Blood-Glucose Sensor (DEXCOM G6 SENSOR) [facility] Indications: Type 2 diabetes mellitus with diabetic nephropathy, with long-term current use of insulin (HCC) 1 Each continuous. 9 Each 3 09/17/2022 09/22/2022 Discontinued Start: 09-17-2022 Blood-Glucose Sensor (DEXCOM G6 SENSOR) [facility] Indications: Type 2 diabetes mellitus with diabetic nephropathy, with long-term current use of insulin (HCC) 1 Each continuous. 9 Each 3 09/17/2022 Active Start: 04-21-2022 End: 04-06-2023 Blood-Glucose Sensor (DEXCOM G6 SENSOR) [place] Change sensor every 10 days. USE FOR CONTINUOUS GLUCOSE MONITORING. MULTIPLE INSULIN INJECTIONS. E11.9 9 Each 3 04/21/2022 04/06/2023 Discontinued Start: 04-21-2022 Blood-Glucose Sensor (DEXCOM G6 SENSOR) [place] Change sensor every 10 days. USE FOR CONTINUOUS GLUCOSE MONITORING. MULTIPLE INSULIN INJECTIONS. E11.9 9 Each 3 04/21/2022 Active Comment on above: Change sensor every 10 days. USE FOR CONTINUOUS GLUCOSE MONITORING. MULTIPLE INSULIN INJECTIONS. E11.9 1 Each continuous. Blood-Glucose Sensor (Dexcom G6 Sensor) device (2 sources) Start: 08-31-2024 Blood-Glucose Sensor (Dexcom G6 Sensor) device Active NMA .ROUTE .MEDSUPPLY August 31, 2024 12:00am As directed Blood-Glucose Transmitter (DEXCOM G6 TRANSMITTER) [facility] (20 sources) Start: 08-17-2024 Blood-Glucose Transmitter (DEXCOM G6 TRANSMITTER) [facility] Change transmitter every 3 months - continuous glucose monitor, multiple insulin injections E-11.9 1 each 08/17/2024 Active Start: 02-20-2024 Blood-Glucose Transmitter (DEXCOM G6 TRANSMITTER) [facility] Indications: Type 2 diabetes mellitus with diabetic nephropathy, with long-term current use of insulin (HCC) 1 Each continuous. 1 Each 02/20/2024 Active Start: 05-23-2023 Blood-Glucose Transmitter (DEXCOM G6 TRANSMITTER) [place] Change transmitter every 3 months - continuous glucose monitor, multiple insulin injections E-11.9 1 Each 3 05/23/2023 Active Start: 05-18-2023 Blood-Glucose Transmitter (DEXCOM G6 TRANSMITTER) [place] Change transmitter every 3 months - continuous glucose monitor, multiple insulin injections E-11.9 1 Each 3 05/18/2023 Active Start: 05-13-2023 End: 02-20-2024 Blood-Glucose Transmitter (D EXCOM G6 TRANSMITTER) [facility] Indications: Type 2 diabetes mellitus with diabetic nephropathy, with long-term current use of insulin (HCC) 1 Each continuous. 1 Each 05/13/2023 02/20/2024 Discontinued Start: 05-13-2023 Blood-Glucose Transmitter (DEXCOM G6 TRANSMITTER) [facility] Indications: Type 2 diabetes mellitus with diabetic nephropathy, with long-term current use of insulin (HCC) 1 Each continuous. 1 Each 05/13/2023 Active Start: 05-13-2023 Blood-Glucose Transmitter (DEXCOM G6 TRANSMITTER) [facility] Indications: Type 2 diabetes mellitus with diabetic nephropathy, with long-term current use of insulin (HCC) 1 Each continuous. 1 Each 0 05/13/2023 Active Start: 02-04-2023 End: 05-12-2023 Blood-Glucose Transmitter (D EXCOM G6 TRANSMITTER) [facility] Indications: Type 2 diabetes mellitus with diabetic nephropathy, with long-term current use of insulin (HCC) 1 Each continuous. 1 Each 0 02/04/2023 05/12/2023 Discontinued Start: 02-04-2023 Blood-Glucose Transmitter (DEXCOM G6 TRANSMITTER) [facility] Indications: Type 2 diabetes mellitus with diabetic nephropathy, with long-term current use of insulin (HCC) 1 Each continuous. 1 Each 0 02/04/2023 Active Start: 10-22-2022 End: 02-03-2023 Blood-Glucose Transmitter (D EXCOM G6 TRANSMITTER) [facility] Indications: Type 2 diabetes mellitus with diabetic nephropathy, with long-term current use of insulin (HCC) 1 Each continuous. 1 Each 10/22/2022 02/03/2023 Discontinued Start: 10-22-2022 Blood-Glucose Transmitter (DEXCOM G6 TRANSMITTER) [facility] Indications: Type 2 diabetes mellitus with diabetic nephropathy, with long-term current use of insulin (HCC) 1 Each continuous. 1 Each 0 10/22/2022 Active Start: 09-22-2022 End: 10-21-2022 Blood-Glucose Transmitter (D EXCOM G6 TRANSMITTER) [facility] Indications: Type 2 diabetes mellitus with diabetic nephropathy, with long-term current use of insulin (HCC) 1 Each continuous. 1 Each 0 09/22/2022 10/21/2022 Discontinued Start: 09-22-2022 Blood-Glucose Transmitter (DEXCOM G6 TRANSMITTER) [facility] Indications: Type 2 diabetes mellitus with diabetic nephropathy, with long-term current use of insulin (HCC) 1 Each continuous. 1 Each 0 09/22/2022 Active Start: 09-17-2022 End: 09-22-2022 Blood-Glucose Transmitter (D EXCOM G6 TRANSMITTER) [facility] Indications: Type 2 diabetes mellitus with diabetic nephropathy, with long-term current use of insulin (HCC) 1 Each continuous. 1 Each 0 09/17/2022 09/22/2022 Discontinued Start: 09-17-2022 Blood-Glucose Transmitter (DEXCOM G6 TRANSMITTER) [facility] Indications: Type 2 diabetes mellitus with diabetic nephropathy, with long-term current use of insulin (HCC) 1 Each continuous. 1 Each 0 09/17/2022 Active Start: 04-21-2022 End: 05-18-2023 Blood-Glucose Transmitter (D EXCOM G6 TRANSMITTER) [place] Change transmitter every 3 months. USE FOR CONTINUOUS GLUCOSE MONITORING. MULTIPLE INSULIN INJECTIONS. E11.9 1 Each 3 04/21/2022 05/18/2023 Discontinued Start: 04-21-2022 Blood-Glucose Transmitter (DEXCOM G6 TRANSMITTER) [place] Change transmitter every 3 months. USE FOR CONTINUOUS GLUCOSE MONITORING. MULTIPLE INSULIN INJECTIONS. E11.9 1 Each 3 04/21/2022 Active Comment on above: Change transmitter e very 3 months. USE FOR CONTINUOUS GLUCOSE MONITORING. MULTIPLE INSULIN INJECTIONS. E11.9 1 Each continuous. Change transmitter e very 3 months - continuous glucose monitor, multiple insulin injections E-11.9 Blood-Glucose Transmitter (Dexcom G6 Transmitter) device (2 sources) Start: Blood-Glucose Transmitter (Dexcom G6 Transmitter) device Active NMA .ROUTE .MEDSUPPLY August 31, 2024 12:00am As directed celecoxib 200 mg oral capsule (20 sources) Nonsteroidal Anti-inflammatory Drug Start: take 1 capsule by mouth once daily Celecoxib 200 mg capsule Active 200 mg PO daily March 16, 2024 1:00am Start: 01-25-2022 End: 08-19-2023 take 1 capsule by mouth once daily in the morning celecoxib (CELEBREX) 200 mg capsule Take 200 mg by mouth every morning. 03/26/2022 Active Comment on above: Take 200 mg by mouth every morning. Continuous Blood Gluc Sensor (Dexcom G6 Sensor) misc (20 sources) Continuous Blood Gluc Sensor (Dexcom G6 Sensor) misc Use a new sensor every 10 days. Active Continuous Blood Gluc Sensor (Dexcom G6 Sensor) misc Use a new sensor every 10 days. 0 Active diclofenac sodium 0.01 mg/mg topical gel (20 sources) Nonsteroidal Anti-inflammatory Drug Start: 08-31-2024 Diclofenac Sodium 1 % gel Active TOPICAL 4 times daily August 31, 2024 12:00am Start: 02-10-2024 Diclofenac Sod ium (Voltaren) 1 % gel Apply 2 g to affected hand bid prn 200 g 3 02/10/2024 Active Start: 09-22-2023 End: 02-10-2024 Diclofenac Sodium (Voltaren) 1 % gel Apply 4 g topically 2 times daily. 100 g 11 09/22/2023 02/10/2024 Discontinued Start: 01-11-2022 End: 02-10-2024 apply 2 g topically four times daily diclofenac (VOLTAREN) 1 % topical gel Apply 2 g to affected area four times daily. 50 g 3 01/11/2022 Active Start: 10-06-2021 End: 02-10-2024 Pennsaid 2 % solution 202102/10/2024 Discontinued (Therapy completed) Start: 08-13-2021 End: 01-11-2022 PENNSAID 20 mg/gram /actuati on(2 %) Comment on above: Apply 2 g to affecte d area four times daily. docusate sodium 100 mg oral capsule (8 sources) Start: 08-04-19 End: 01-12-20 take 1 capsule by mouth twice daily as needed for constipation docusate sodium (COLACE) 100 mg capsule Indications: Acute pain of left knee , Synovial cyst of popliteal space (Means), left knee , Effusion, left knee Take 1 capsule by mouth twice daily as needed for constipation. 30 capsule 0 08/03/2021 01/11/2022 Discontinued Comment on above: Take 1 capsule by mo [facility] twice daily as needed for constipation. famotidine 20 mg oral tablet (20 sources) Histamine-2 Receptor Antagonist Start: 03-29-19 take 1 tablet by mouth once daily Famotidine 20 mg tablet Active 20 mg PO daily March 16, 2024 1:00am Start: 12-02-2022 End: 03-18-2023 take 1 tablet by mouth every twenty-four hours as needed famotidine (PEPCID) 20 mg tablet Take 1 tablet by mouth at bedtime as needed. 30 tablet 1 12/02/2022 03/18/2023 Discontinued Comment on above: Take 1 tablet by belle th at bedtime as needed. fenofibrate 145 mg oral tablet (20 sources) Peroxisome Proliferator Receptor alpha Agonist Start: End: take 1 tablet by mouth in the morning fenofibrate (Tricor) 145 MG tablet Take 145 mg by mouth in the morning. 06/25/2021 Active Comment on above: Take 1 tablet by belle once daily. ferrous sulfate 325 mg oral tablet (20 sources) Start: take 1 tablet by mouth every other day ferrous sulfate 325 mg (65 mg iron) tablet Take 1 tablet by mouth every other day. 45 tablet 3 07/23/2024 Active Start: 03-16-2024 take 1 tablet by belle th every other day Ferrous Sulfate (Ferosul) 325 mg (65 mg iron) tablet Active 325 mg PO .QOD March 16, 2024 1:00am Start: 08-23-2023 take 1 tablet by belle th every other day ferrous sulfate 325 mg (65 mg iron) tablet Take 1 tablet by mouth every other day. 45 tablet 3 08/23/2023 Active Start: 07-15-2022 End: 08-19-2023 take 1 tablet by mouth every other day ferrous sulfate 325 mg (65 mg iron) tablet Take 1 tablet by mouth every other day. 45 tablet 1 03/29/2023 08/19/2023 Discontinued Comment on above: Take 1 tablet by [facility] every other day. gabapentin 300 mg oral capsule (20 sources) Anti-epileptic Agent Start: 09-11-2021 End: 02-05-2025 take 1 capsule by mouth at bedtime Gabapentin 300 mg capsule Active 100 mg PO .COMPLEX March 16, 2024 4:40pm nerve pain 100 mg in AM and lunch; take 300mg at HS Start: 09-07-2018 End: 02-05-2025 take 1 capsule by mouth twice daily gabapentin (NEURONTIN) 100 mg capsule Take 1 capsule by mouth two times a day for 180 days. Take one in AM and one in afternoon. Take the 300mg before bed. 180 capsule 1 08/09/2024 02/05/2025 Active Start: 05-01-2013 End: 03-16-2024 Gabapentin 300 MG capsule Discontinued 100 mg PO TWICE A DAY May 01, 2013 1:00am March 16, 2024 4:48pm nerve pain Start: 05-01-2013 take 100 mg by mouth twice daily Gabapentin Active 100 MG PO TWICE A DAY May 01, 2013 1:00am Comment on above: Take 1 capsule by [facility] twice daily for 180 days. Take 1 capsule by [facility] daily at bedtime for 180 days. Take 1 capsule by [facility] twice daily for 180 days. Take one in AM and one in afternoon. Take the 300mg before bed. Take 1 capsule by [facility] two times a day for 180 days. Take one in AM and one in afternoon. Take the 300mg before bed. 0.2 ml glucagon 5 mg/ml auto-injector (20 sources) Antihypoglycemic Agent Start: 10-01-2024 Glucagon (Gvoke Hypopen 2-Pack) 1 mg/0.2 mL auto-injector Active 1 mg SC ONCE 0.4 5 October 01, 2024 12:00am as a single dose; may repeat once after 15 minutes if no response Start: 09-09-2022 End: 03-18-2023 glucagon (GLUCAGON EMERGENCY KIT, HUMAN,) 1 mg injection Inject (1)one mg for insulin shock. 2 Each 1 03/18/2023 Active inject 1 mg by subcu taneous injection once as needed glucagon (Gvoke HypoPen) 1 MG/0.2ML injection Inject 1 mg under the skin Once as needed for low blood sugar. Prn for emergency Active Comment on above: Inject (1)one mg for insulin shock. hydroxychloroquine sulfate 200 mg oral tablet (20 sources) Antimalarial, Antirheumatic Agent Start: 2024 take 2 tablets by mouth once daily hydroxychloroquine (Plaquenil) 200 MG tablet Indications: Rheumatoid arthritis of 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 (HCC) Take 2 tablets (400 mg) by mouth daily. 180 tablet 12/11/2024 Active Start: 03-16-2024 take 1 tablet by belle twice daily Hydroxychloroquine 200 mg tablet Active 200 mg PO TWICE A DAY March 16, 2024 1:00am Start: 11-25-2023 End: 06-13-2024 take 2 tablets by mouth once daily hydroxychloroquine (Plaquenil) 200 MG tablet Indications: 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) (HCC) Take 2 tablets (400 mg) by mouth daily. 180 tablet 1 06/13/2024 Active Start: 09-14-2022 End: 06-03-2023 take 2 tablets by mouth once daily hydroxychloroquine (Plaquenil) 200 MG tablet Indications: 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) (HCC) Take 2 tablets (400 mg) by mouth daily. 56 tablet 5 06/03/2023 Active 3 ml insulin glargine 300 unt/ml pen injector (20 sources) Insulin Analog Start: 08-09-2024 insulin glargi ne U-300 conc (TOUJEO MAX U-300 SOLOSTAR) 300 unit/mL (3 mL) inpn Inject subcutaneously 130 units daily 45 mL 3 08/09/2024 Active Start: 04-18-2024 End: 09-24-2024 Insulin Glargine 100 unit/mL (3 mL) insulin pen Discontinued 20 U SC daily April 18, 2024 11:38am September 24, 2024 11:21am diabetes Start: 04-13-2024 End: 08-09-2024 insulin glargine U-300 conc (TOUJEO MAX U-300 SOLOSTAR) 300 unit/mL (3 mL) inpn Inject subcutaneously 112 units daily 45 mL 3 04/13/2024 08/09/2024 Discontinued Start: 03-16-2024 End: 04-18-2024 Insulin Glargine 100 unit/mL (3 mL) insulin pen Discontinued 112 U SC daily March 16, 2024 4:46pm April 18, 2024 11:39am diabetes Start: 03-16-2024 Insulin Glargi ne U-300 Conc (Toujeo Max U-300 Solostar) 300 unit/mL (3 mL) insulin pen Active 112 U SC daily March 16, 2024 1:00am Start: 12-19-2023 End: 04-11-2024 insulin glargine U-300 conc (TOUJEO MAX U-300 SOLOSTAR) 300 unit/mL (3 mL) inpn Inject subcutaneously 112 units daily 45 mL 3 12/19/2023 04/11/2024 Discontinued Start: 09-09-2022 End: 12-19-2023 insulin glargine U-300 conc (TOUJEO MAX U-300 SOLOSTAR) 300 unit/mL (3 mL) inpn Inject subcutaneously 100 units daily 45 mL 3 03/29/2023 12/19/2023 Discontinued Start: 09-02-2022 End: 09-09-2022 insulin glargine U-300 conc (TOUJEO MAX U-300 SOLOSTAR) 300 unit/mL (3 mL) inpn Inject 70 units twice daily (140 units daily) 45 mL 3 09/02/2022 09/09/2022 Discontinued (Adjust Sig - Block E-Cancel) Start: 07-07-2022 insulin glargi ne (LANTUS SOLOSTAR U-100 INSULIN) 100 unit/mL (3 mL) Inject 70 Units subcutaneously twice daily. 39 Each 3 07/07/2022 Active Start: 04-14-2022 End: 07-05-2022 insulin glargine (LANTUS JOHN OSTAR U-100 INSULIN) 100 unit/mL (3 mL) Inject 70 Units subcutaneously twice daily. 39 Each 3 04/14/2022 07/05/2022 Discontinued Start: 03-10-2022 End: 04-14-2022 insulin glargine (LANTUS JOHN OSTAR U-100 INSULIN) 100 unit/mL (3 mL) Inject 67 Units subcutaneously twice daily. 39 Each 3 03/10/2022 04/14/2022 Discontinued Start: 01-11-2022 inject 67 [IU] by barragan bcutaneous injection in the morning insulin glargine (Lantus) 100 UNIT/ML pen Inject 67 Units under the skin in the morning and 67 Units in the evening. 01/11/2022 Active Start: 01-11-2022 End: 03-09-2022 insulin glargine (LANTUS JOHN OSTAR U-100 INSULIN) 100 unit/mL (3 mL) Inject 67 Units subcutaneously twice daily. 01/11/2022 03/09/2022 Discontinued Start: 06-11-2021 End: 01-11-2022 insulin glargine (LANTUS JOHN OSTAR U-100 INSULIN) 100 unit/mL (3 mL) Inject 65 Units subcutaneously twice daily. 39 Pen 3 06/11/2021 01/11/2022 Discontinued Start: 06-01-2021 End: 03-16-2024 Insulin Glargine 100 unit/mL (3 mL) insulin pen Discontinued 60 U SC TWICE A DAY June 01, 2021 10:07am March 16, 2024 4:48pm diabetes Start: 01-10-2020 End: 06-01-2021 inject 54 [IU] by subcutaneous injection twice daily Insulin Glargine 100 UNITS/ML insulin pen Discontinued 54 U SQ TWICE A DAY January 10, 2020 12:00am June 01, 2021 10:08am diabetes Start: 01-10-2020 End: 06-01-2021 inject 54 [IU] by subcutaneous injection twice daily Insulin Glargine Discontinued 54 UNITS SQ TWICE A DAY January 10, 2020 12:00am June 01, 2021 10:08am End: 12-26-2024 inject 112 [IU] by subcutaneous injection once daily in the morning Insulin Glargine (TOUJEO MAX SOLOSTAR SC) Inject 112 Units under the skin every morning. 12/26/2024 Discontinued (Therapy completed) inject 112 [IU] by s ubcutaneous injection once daily in the morning Insulin Glargine (TOUJEO MAX SOLOSTAR SC) Inject 112 Units under the skin every morning. Active inject 112 [IU] by s ubcutaneous injection once daily in the morning Insulin Glargine (TOUJEO MAX SOLOSTAR SC) Inject 112 Units under the skin every morning. 0 Active inject 100 [IU] by s ubcutaneous injection once daily in the morning Insulin Glargine (TOUJEO MAX SOLOSTAR SC) Inject 100 Units under the skin every morning. 0 Active Comment on above: Inject 65 Units subc utaneously twice daily. Inject 67 Units subc utaneously twice daily. Inject 70 Units subc utaneously twice daily. Inject subcutaneousl y 100 units daily Inject 70 units twic e daily (140 units daily) Insulin Glargine U-300 Conc (Toujeo Max U-300 Solostar) 300 unit/mL (3 mL) insulin pen (1 source) Start: 03-16-2024 Insulin Glargine U-300 Conc (Toujeo Max U-300 Solostar) 300 unit/mL (3 mL) insulin pen Active 60 U SC TWICE A DAY March 16, 2024 1:00am insulin lispro 100 unt/ml injectable solution (20 sources) Insulin Analog Start: 10-01-2024 Insulin Lispro (Humalog U-100 Insulin) 100 unit/mL solution Active 100 U continuous subcutaneous infusion .continuous 90 1 October 01, 2024 12:00am Type 1 diabetes mellitus with hyperglycemia Type 1 diabetes mellitus with hyperglycemia Start: 09-24-2024 Insulin Lispro 100 unit/mL insulin pen Active 25 U SC THREE TIMES A DAY September 24, 2024 11:20am +SS Start: 08-09-2024 End: 09-24-2024 Insulin Lispro 100 unit/mL i nsulin pen Discontinued SC August 31, 2024 12:00am September 24, 2024 11:21am Start: 03-15-2024 End: 08-09-2024 inject 22 [IU] by subcutaneous injection three times daily before mealtime, then inject 21 [IU] by subcutaneous injection at mealtime insulin lispro (HUMALOG KWIKPEN INSULIN) 100 unit/mL Inject 22 Units subcutaneously three times a day before meals. Inject 21 units with meals plus SS#2 (2 units for every 50 over 150) (1 units for every 10 grams of carbs). Limit of 75 units daily 10 Each 1 03/15/2024 08/09/2024 Discontinued Start: 03-12-2024 inject 22 [IU] by barragan bcutaneous injection three times daily before mealtime, then inject 21 [IU] by subcutaneous injection at mealtime insulin lispro (HUMALOG KWIKPEN INSULIN) 100 unit/mL Inject 22 Units subcutaneously three times a day before meals. Inject 21 units with meals plus SS#2 (2 units for every 50 over 150) (1 units for every 10 grams of carbs) 10 Each 1 03/12/2024 Active Start: 02-15-2024 End: 03-12-2024 insulin lispro (HUMALOG KWIK PEN INSULIN) 100 unit/mL Inject 21 units with meals plus SS#2 (2 units for every 50 over 150) (1 units for every 10 grams of carbs) 0 02/15/2024 03/12/2024 Discontinued Start: 12-26-2023 End: 02-15-2024 insulin lispro (HUMALOG KWIK PEN INSULIN) 100 unit/mL Inject 16 units with meals plus SS#2 (2 units for every 50 over 150) (1 units for every 10 grams of carbs) 10 Each 3 12/26/2023 02/15/2024 Discontinued Start: 12-19-2023 End: 12-26-2023 insulin lispro (HUMALOG KWIK PEN INSULIN) 100 unit/mL Inject 16 units with meals TID plus SS#2 (2 units for every 50 over 150) (~ 1 units for every 10 grams of carbs) TDD: 30 10 Each 3 12/19/2023 12/26/2023 Discontinued Start: 04-28-2022 End: 12-19-2023 insulin lispro (HUMALOG KWIK PEN INSULIN) 100 unit/mL Inject 5 units with meals TID plus SS#2 (2 units for every 50 over 150) (~ 1 units for every 10 grams of carbs) TDD: 30 10 Each 3 03/29/2023 12/19/2023 Discontinued Insulin Lispro ( Humalog) 100 UNIT/ML solution injection Inject 5 Units under the skin. Sliding scale Active Comment on above: Inject 5 units with meals TID plus SS#2 (2 units for every 50 over 150) (~ 1 units for every 10 grams of carbs) TDD: 30 Insulin Registry Nurse Cart,Aut,G6/7,Cntr (Omnipod 5 G6-G7 Intro Kt(Gen5)) cartridge (2 sources) Start: 09-25-19 25 Insulin Registry Nurse Cart,Aut,G6/7,Cntr (Omnipod 5 G6-G7 Intro Kt(Gen5)) cartridge Active 0 .Route 1 0 September 24, 2024 12:00am Type 1 diabetes mellitus with hyperglycemia Type 1 diabetes mellitus with hyperglycemia As directed Insulin Pump Cart,Auto,Bt,G6/7 (Omnipod 5 G6-G7 Pods (Gen 5)) cartridge (2 sources) Start: 09-25-19 25 Insulin Pump Cart,Auto,Bt,G6/7 (Omnipod 5 G6-G7 Pods (Gen 5)) cartridge Active 0 .Route 15 5 September 24, 2024 12:00am Type 1 diabetes mellitus with hyperglycemia Type 1 diabetes mellitus with hyperglycemia 1 pod q 48 hours leflunomide 20 mg oral tablet (1 source) Antirheumatic Agent Start: 12-27-19 End: 06-25-19 26 take 1 tablet by mouth once daily leflunomide (Arava) 20 MG tablet Take 1 tablet (20 mg) by mouth daily. 90 tablet 1 12/26/2024 06/24/2025 Active losartan potassium 100 mg oral tablet (20 sources) Angiotensin 2 Receptor Rico Start: 06-13-19 End: 02-15-20 24 take 0.5 tablet by mouth in the morning losartan (Cozaar) 100 MG tablet Take 0.5 tablets by mouth in the morning. 06/25/2021 Active Start: 05-01-2013 take 1 tablet by mouth once da nathan Losartan 50 MG tablet Active 50 mg PO DAILY May 01, 2013 1:00am BP Comment on above: TAKE ONE-HALF TABLET BY MOUTH ONCE DAILY meloxicam 15 mg oral tablet (2 sources) Nonsteroidal Anti-inflammatory Drug Start: 2 End: 2 take 1 tablet by mouth once daily for pain meloxicam (MOBIC) 15 mg tablet Indications: Acute pain of left knee , Synovial cyst of popliteal space (Means), left knee , Effusion, left knee Take 1 tablet by mouth once daily. for pain. Take with food. 30 tablet 0 08/03/2021 09/02/2021 Active Comment on above: Take 1 tablet by belle th once daily. for pain. Take with food. montelukast 10 mg oral tablet (20 sources) Leukotriene Receptor Antagonist Start: 4 End: 4 take 1 tablet by mouth once daily montelukast (Singulair) 10 MG tablet Take 1 tablet by mouth Nightly. 06/25/2021 Active Comment on above: Take 1 tablet by belle th daily at bedtime. naproxen 500 mg oral tablet (20 sources) Nonsteroidal Anti-inflammatory Drug Start: 4 take 1 tablet by mouth every twelve hours as needed naproxen (NAPROSYN) 500 mg tablet Take 1 tablet by mouth two times a day as needed. 60 tablet 06/24/2023 Active Start: 04-15-2018 End: 07-20-2021 take 1 tablet by mouth twice daily as needed for pain Naproxen 500 MG tablet Discontinued 500 mg PO TWICE DAILY NEEDED as needed for Pain April 15, 2018 12:17pm July 20, 2021 4:04pm Comment on above: Take 1 tablet by belle th twice daily as needed. Take 1 tablet by belle th two times a day as needed. nystatin 100 unt/mg topical powder (1 source) Polyene Antifungal Start: 5 nystatin (MYCOSTATIN) powder Apply 1 application to affected area four times daily. 30 g 1 10/10/2024 Active omeprazole 40 mg delayed release oral capsule (20 sources) Proton Pump Inhibitor Start: 4 take 1 capsule by mouth once daily Omeprazole 40 mg capsule,delayed release(DR/EC) Active 40 mg PO daily March 16, 2024 1:00am Start: 09-24-2022 End: 02-29-2024 take 1 capsule by mouth once daily omeprazole (PRILOSEC) 40 mg capsule Take 1 capsule by mouth once daily. 90 capsule 1 02/29/2024 Active Start: 09-24-2022 End: 01-30-2023 take 2 capsules by mouth once daily before breakfast omeprazole (PRILOSEC) 20 mg capsule Indications: Gastroesophageal reflux disease without esophagitis Take 2 capsules by mouth daily before breakfast. 180 capsule 09/24/2022 01/30/2023 Discontinued Start: 09-07-2018 End: 03-16-2024 take 1 capsule by mouth once daily before breakfast omeprazole (PriLOSEC) [address] capsule Take 1 capsule by mouth every morning (before breakfast). 06/25/2021 Active Comment on above: Take 1 capsule by mo [facility] daily before breakfast. Take 2 capsules by m out daily before breakfast. Take 1 capsule by mo [facility] once daily. ondansetron 4 mg disintegrating oral tablet (20 sources) Serotonin-3 Receptor Antagonist Start: 10-07-19 take 1 tablet by mouth every six hours as needed for nausea ondansetron orally disintegrating (ZOFRAN ODT) 4 mg disintegrating tablet Indications: Low blood sugar , Nausea and vomiting, unspecified vomiting type Take 1 tablet by mouth every 6 hours as needed for nausea/vomiting. 15 tablet 1 10/06/2022 Active Comment on above: Take 1 tablet by belle every 6 hours as needed for nausea/vomiting. pramipexole dihydrochloride 0.125 mg oral tablet (20 sources) Nonergot Dopamine Agonist Start: 07-15-19 End: 08-31-19 take 1 tablet by mouth once daily as needed Pramipexole 0.125 mg tablet Active 0.125 mg PO daily as needed for RLS March 16, 2024 1:00am Start: 09-07-2018 End: 08-30-2024 take 1 tablet by mouth in the morning pramipexole (Mirapex) 0.5 MG tablet Take 0.5 mg by mouth in the morning. 06/25/2021 Active Comment on above: Take 1 tablet by belle once daily. Take 1 pill in the e vening as needed for restless legs take 1 tablet by belle every evening if needed for RESTELESS LEGS semaglutide (Ozempic, 1 MG/DOSE,) 4 MG/3ML solution pen-injector (20 sources) Start: 01-12-20 inject 1 mg by subcutaneous injection every week semaglutide (Ozempic, 1 MG/DOSE,) 4 MG/3ML solution pen-injector Inject 1 mg under the skin once a week. 01/11/2022 Active Start: 01-11-2022 inject 1 mg by subcu taneous injection every week semaglutide (Ozempic, 1 MG/DOSE,) 4 MG/3ML solution pen-injector Inject 1 mg under the skin once a week. 0 01/11/2022 Active 24 hr venlafaxine 75 mg extended release oral capsule (20 sources) Serotonin and Norepinephrine Reuptake Inhibitor Start: 08-23-2023 take 1 capsule by mouth once daily Venlafaxine 75 mg capsule,extended release 24hr Active 75 mg PO daily March 16, 2024 1:00am Start: 04-08-2023 End: 08-19-2023 take 1 capsule by mouth once daily venlafaxine ER (EFFEXOR XR) 75 mg 24 hr capsule Take 1 capsule by mouth once daily. 30 capsule 5 04/08/2023 08/19/2023 Discontinued Start: 04-07-2023 End: 02-17-2024 take 1 tablet by mouth once daily venlafaxine XR (EFFEXOR XR) 225 mg tablet Take 1 tablet by mouth once daily. 30 tablet 1 04/07/2023 02/17/2024 Discontinued Start: 06-25-2021 take 1 capsule by mo [facility] every twenty-four hours in the morning venlafaxine XR (Effexor XR) 150 MG 24 hr capsule Take 150 mg by mouth in the morning. 06/25/2021 Active Start: 09-07-2018 venlafaxine 15 0 mg oral capsule, extended release Dose : 150 mg = 1 cap(s), Oral, qDay, # 30 cap(s), 0 Refill(s) Start Date: 09/07/18 Status: Ordered Start: 04-15-2018 End: 09-13-2024 take 1 capsule by mouth once daily Venlafaxine 150 MG capsule,extended release 24hr Active 150 mg PO DAILY April 15, 2018 1:00am anx/dep take 1 tablet by belle th once daily venlafaxine (Effexor) 75 MG tablet Take 75 mg by mouth daily. Active Comment on above: Take 1 capsule by mo ut once daily. Take 1 tablet by belle th once daily. Completed/Discontinued Medications Medication Drug Class(es) Dates Sig (Normalized) Sig (Original) acetaminophen 325 mg / HYDROcodone bitartrate 5 mg oral tablet (20 sources) Opioid Agonist Start: 07-19-2021 End: 03-16-2024 Hydrocodone-Acetami nophen 5-325 mg tablet Discontinued 1 {tbl} PO EVERY 6 HOURS as needed for pain 10 3 0 July 19, 2021 March 16, 2024 4:46pm Effusion of left knee Intractable pain Effusion, left knee Pain, unspecified Start: 07-19-2021 take 1 tablet by belle th every six hours Hydrocodone-Acetaminophen Active 1 TABLE T PO EVERY 6 HOURS 10 3 July 19, 2021 Start: 11-24-2020 End: 11-27-2020 take 1 tablet by mouth every six hours as needed for pain [place] 325- 5 mg oral tablet Dose = 1 tab(s), Oral, q6h, PRN as needed for pain, # 12 tab(s), 0 Refill(s), Boil, 81.8 Start Date: 11/24/20 Stop Date: 11/27/20 Status: Ordered Start: 04-15-2018 End: 04-18-2018 Hydrocodone-Acetaminophen 1 TABLET tablet Discontinued 1 {tbl} PO EVERY 6 HOURS NEEDED as needed for Pain 10 3 0 April 15, 2018 1:00am April 17, 2018 1:00am April 18, 2018 1:09am Cat bite of left hand Open bite of left hand, initial encounter Start: 04-15-2018 End: 04-18-2018 take 1 tablet by mouth every six hours as needed Hydrocodone-Acetaminophen Discontinued 1 TABLET PO EVERY 6 HOURS NEEDED 10 3 April 15, 2018 1:00am April 18, 2018 1:09am Start: 05-01-2013 End: 04-14-2017 Hydrocodone-Acetaminophen 1 EACH tablet Discontinued 1 - 2 {tbl} PO EVERY 4 HOURS NEEDED as needed for Abdominal Pain May 01, 2013 10:01pm April 14, 2017 9:22am Start: 05-01-2013 End: 04-14-2017 take 1 tablet by mouth every four hours as needed Hydrocodone-Acetaminophen Discontinued 1 - 2 TABLET PO EVERY 4 HOURS NEEDED May 01, 2013 10:01pm April 14, 2017 9:22am Comment on above: Take 1 tablet by belle th every 6 hours as needed for pain. [id number] 200 actuat albuterol 0.09 mg/actuat metered dose inhaler (20 sources) beta2-Adrenergic Agonist Start: 07-02-19 End: 07-15-19 23 take 2 puff(s) by inhalation every four hours as needed for wheezing albuterol HFA (VENTOLIN HFA) 90 mcg/actuation inhaler Inhale 2 Puffs as instructed every 4 hours as needed for Wheezing/Shortness of Breath. 18 g 07/01/2020 07/14/2022 Discontinued (Discontinued by Patient) Comment on above: Inhale 2 Puffs as in structed every 4 hours as needed for Wheezing/Shortness of Breath. azithromycin 250 mg oral tablet (6 sources) Macrolide Antimicrobial Start: 12-24-19 End: 12-29-19 Azithromycin (Zithromax Z-Elgin) 250 mg tablet Discontinued 0 PO .COMPLEX 6 5 0 December 24, 2023 12:00am December 28, 2023 12:00am December 24, 2023 10:02am For 250 mg dose pack: take 500 mg today (day 1), then 250 mg for 4 days (days 2-5) PO Start: 01-01-2023 End: 01-06-2023 Azithromycin 250 mg tablet D iscontinued 0 PO .COMPLEX 6 5 0 January 01, 2023 12:00am January 05, 2023 12:00am January 06, 2023 12:04am Left otitis media Otitis media, unspecified, left ear For 250 mg dose pack: take 500 mg today (day 1), then 250 mg for 4 days (days 2-5) orally take as directed; Blood-Glucose Meter (ONETOUC H VERIO METER) (2 sources) Start: 01-08-2021 End: 06-30-2021 Blood-Glucose Meter (ONETOUC H VERIO METER) Use as directed to check BGs. Dx: E11.21 1 Each 0 01/08/2021 06/30/2021 Discontinued Start: 01-08-2021 Blood-Glucose Meter (ONETOUCH VERIO METER) Use as directed to check BGs. Dx: E11.21 1 Each 0 01/08/2021 Active Comment on above: Use as directed to c adonis BGs. Dx: E11.21 cephalexin 500 mg oral capsule (2 sources) Cephalosporin Antibacterial Start: 024 End: take 1 capsule by mouth twice daily Cephalexin 500 mg capsule Discontinued 500 mg PO TWICE A DAY 14 7 0 December 24, 2023 12:00am December 30, 2023 12:00am December 24, 2023 10:00am 12 hr chlorpheniramine polistirex 1.6 mg/ml / HYDROcodone polistirex 2 mg/ml extended release suspension (2 sources) Histamine-1 Receptor Antagonist, Opioid Agonist Start: 023 End: take 5 mL by mouth every twelve hours as needed for cough and cough HYDROcodone-chlorphe niramine (TUSSIONEX) 10-8 mg/5 mL suspension Indications: Acute cough Take 5 mL by mouth every 12 hours as needed for up to 7 days. 70 mL 0 01/06/2023 01/10/2023 Discontinued Comment on above: Take 5 mL by mouth e very 12 hours as needed for up to 7 days. dexamethasone 1 mg oral tablet (19 sources) Corticosteroid Start: End: dexAMETHasone (DECADRON) 1 mg tablet Indications: Type 2 diabetes mellitus with diabetic nephropathy, with long-term current use of insulin ([facility]) , Class 1 obesity with serious comorbidity and body mass index (BMI) of 31.0 to 31.9 in adult, unspecified obesity type Take the tablet at 11 pm and go for labs the next morning on fasting at 8 am 1 tablet 06/07/2023 02/17/2024 Discontinued Comment on above: Take the tablet at 1 1 pm and go for labs the next morning on fasting at 8 am doxycycline hyclate 100 mg oral tablet (20 sources) Tetracycline-class Drug Start: 025 End: take 1 tablet by mouth twice daily doxycycline (VIBRA-TABS) 100 mg tablet Take 1 tablet by mouth two times a day for 10 days. 20 tablet 05/11/2024 05/21/2024 Start: 05-09-2023 End: 05-19-2023 take 1 tablet by mouth twice daily doxycycline (VIBRA-TABS) 100 mg tablet Take 1 tablet by mouth two times a day for 10 days. 20 tablet 0 05/09/2023 05/19/2023 Active Start: 01-06-2023 End: 01-16-2023 take 1 tablet by mouth twice daily doxycycline (VIBRA-TABS) 100 mg tablet Take 1 tablet by mouth two times a day for 10 days. 20 tablet 01/06/2023 01/16/2023 Start: 06-18-2022 End: 06-25-2022 doxycycline hyclate 100 mg o ral capsule Dose : 100 mg = 1 cap(s), Oral, BID, X 7 day(s), # 14 cap(s), 0 Refill(s), 06/25/22 20:21:00 EDT, 81.8 Start Date: 06/18/22 Stop Date: 06/25/22 Status: Ordered Start: 04-15-2018 End: 03-05-2019 take 1 capsule by mouth twice daily Doxycycline Monohydrate 100 MG capsule Discontinued 100 mg PO TWICE A DAY 20 0 April 15, 2018 1:00am March 05, 2019 10:55am Start: 04-02-2018 End: 04-12-2018 take 1 capsule by mouth every twelve hours Doxycycline Monohydrate 100 mg capsule Discontinued 100 mg PO Q12H 20 10 April 02, 2018 1:00am April 11, 2018 1:00am April 12, 2018 1:07am Start: 07-23-2017 End: 08-02-2017 take 1 capsule by mouth every twelve hours Doxycycline Monohydrate 100 mg capsule Discontinued 100 mg PO Q12H 20 10 0 July 23, 2017 12:00am August 01, 2017 12:00am August 02, 2017 12:06am End: 02-10-2024 take 1 tablet by mouth twice daily doxycycline (Adoxa) 100 MG tablet Take 100 mg by mouth 2 times daily. Take with a full glass of water and do not lie down for at least 30 minutes after 02/10/2024 Discontinued (Therapy completed) Comment on above: Take 1 tablet by belle th two times a day for 10 days. 1 ml etanercept 50 mg/ml auto-injector (12 sources) Tumor Necrosis Factor Rico Start: End: 4 inject 50 mg by subcutaneous injection every week ENBREL SURECLICK 50 mg/mL (1 mL) Inject 50mg under the skin once a week 11/01/2023 02/15/2024 Discontinued Start: 11-01-2023 End: 02-10-2024 inject 50 mg by subcutaneous injection every week in the evening etanercept (Enbrel SureClick) 50 MG/ML injection Inject 50mg under the skin once a week 4 mL 2 11/23/2023 4:01 PM EDT 11/01/2023 02/10/2024 Discontinued (Therapy completed) flash glucose scanning jessy steen ([employer] CARLITO 2 READER) (20 sources) Start: 05-12-2022 End: 06-07-2023 flash glucose scanning reade r (FREESTYLE CARLITO 2 READER) Use as instructed to check four times a day 1 Each 05/12/2022 06/07/2023 Discontinued Start: 05-12-2022 End: 06-07-2023 flash glucose scanning reade r (FREESTYLE CARLITO 2 READER) Use as instructed to check four times a day 1 Each 0 05/12/2022 06/07/2023 Discontinued Start: 05-12-2022 flash glucose scanning reader (FREESTYLE CARLITO 2 READER) Use as instructed to check four times a day 1 Each 0 05/12/2022 Active Comment on above: Use as instructed to check four times a day flash glucose sensor (FREESTYLE CARLITO 2 SENSOR) kit (20 sources) Start: 05-12-2022 End: 06-07-2023 flash glucose sensor (FREESTYLE CARLITO 2 SENSOR) kit Check blood sugar four times a day as instructed 2 Each 11 05/12/2022 06/07/2023 Discontinued Start: 05-12-2022 flash glucose sensor (FREESTYLE CARLITO 2 SENSOR) kit Check blood sugar four times a day as instructed 2 Each 05/12/2022 Active Comment on above: Check blood sugar fo ur times a day as instructed folic acid 1 mg oral tablet (20 sources) Start: 03-16-2024 Folic Acid 1 mg tablet Active PO March 16, 2024 1:00am Start: 08-09-2023 take 3 tablets by mo [facility] once daily folic acid 1 mg tablet Take 3 mg by mouth once daily. 08/09/2023 Active Start: 08-01-2023 End: 12-26-2024 take 1 tablet by mouth once daily folic acid (Folvite) 1 MG tablet Indications: On methotrexate therapy Take 3 tablets (3,000 mcg) by mouth daily. 270 tablet 1 12/07/2024 12/26/2024 Discontinued (Therapy completed) Start: 04-01-2023 [facility] folic acid (Folvite) 1 MG tablet Indications: On methotrexate therapy TAKE 3 TABLETS BY MOUTH DAILY 90 tablet 2 04/01/2023 Active Start: 03-10-2022 End: 03-10-2023 folic acid 1 mg tablet Take 1 mg by mouth. 03/10/2022 03/10/2023 Comment on above: Take 1 mg by mouth. hydrOXYzine hydrochloride 25 mg oral tablet (20 sources) Antihistamine Start: 024 End: take 1 tablet by mouth three times daily as needed Hydroxyzine Hcl 25 mg tablet Discontinued 25 mg PO THREE TIMES A DAY as needed March 16, 2024 1:00am October 18, 2024 9:40pm Comment on above: Take 1 tablet by belle th three times a day as needed for anxiety. 3 ml insulin degludec 100 unt/ml pen injector (7 sources) Insulin Analog Start: End: Insulin Degludec 100 UNIT/ML insulin pen Discontinued 70 U SQ DAILY April 15, 2018 1:00am March 28, 2019 10:53am 3 ml liraglutide 6 mg/ml pen injector (2 sources) GLP-1 Receptor Agonist Start: inject 0.3 mL by subcutaneous injection once daily Victoza 18 mg/3 mL subcutaneous Pen Dose : 1.8 mg = 0.3 mL, Subcutaneous, qDay, 0 Refill(s) Start Date: 09/07/18 Status: Ordered Start: 09-07-2018 inject 0.3 mL by sub cutaneous injection once daily Victoza 18 mg/3 mL subcutaneous Pen Dose : 1.8 mg = 0.3 mL, Subcutaneous, qDay, 0 Refill(s) Start Date: 09/07/18 Status: Ordered metFORMIN hydrochloride 1000 mg oral tablet (20 sources) Biguanide Start: 05-01-2013 End: 12-26-2024 take 1 tablet by mouth in the morning metFORMIN (Glucophage) 1000 MG tablet Take 1 tablet by mouth in the morning and 1 tablet in the evening. Take with meals. 06/25/2021 12/26/2024 Discontinued (Therapy completed) Comment on above: Take 1 tablet by belle th twice daily with meals. Take 1 tablet by belle th two times a day with meals. methotrexate 2.5 mg oral tablet (20 sources) Folate Analog Metabolic Inhibitor Start: 12-10-2024 End: 12-26-2024 take 7 tablets by mouth every week methotrexate 2.5 MG tablet Indications: Rheumatoid arthritis of 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 (HCC) Take 7 tablets (17.5 mg total) by mouth 1 (one) time per week . 84 tablet 1 12/10/2024 12/26/2024 Discontinued (Therapy completed) Start: 08-31-2024 Methotrexate S odium 2.5 mg tablet Active 2.5 mg PO WE August 31, 2024 12:00am Start: 02-06-2024 End: 12-07-2024 take 7 tablets by mouth every week methotrexate 2.5 MG tablet Indications: 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) (HCC) Take 7 tablets (17.5 mg total) by mouth 1 (one) time per week. 84 tablet 1 06/13/2024 12/07/2024 Discontinued (Reorder) Start: 02-06-2024 methotrexate 2 .5 mg tablet Take 17.5 mg by mouth every Tuesday. 02/06/2024 Active Start: 11-10-2023 End: 02-06-2024 take 4 tablets by mouth in the morning, then take 3 tablets by mouth every week in the evening methotrexate 2.5 MG tablet Indications: 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) (HCC) TAKE 4 TABLETS BY MOUTH IN THE MORNING AND TAKE 3 TABLETS IN THE EVENING ON THE SAME DAY EACH WEEK 28 tablet 2 11/10/2023 02/06/2024 Discontinued Start: 08-12-2023 methotrexate 2 .5 MG tablet Indications: 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) (HCC) Take 7 tablets (17.5 mg total) by mouth every 7 days. Take 4 tablets in the morning and 3 tablets in the evening on the same day each week 28 tablet 2 08/12/2023 Active Start: 08-09-2023 methotrexate 2 .5 MG tablet Indications: 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) (HCC) Take 7 tablets (17.5 mg total) by mouth every 7 days. Take 4 tablets in the morning and 3 tablets in the evening on the same day each week 28 tablet 2 08/09/2023 Active Start: 08-01-2023 End: 08-09-2023 methotrexate 2.5 MG tablet Indications: 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) (HCC) Take 6 tablets (15 mg total) by mouth every 7 days. 24 tablet 0 08/01/2023 08/09/2023 Discontinued (Reorder) Start: 05-26-2023 take 6 tablets by mo ut every week methotrexate 2.5 MG tablet Indications: 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) (HCC) TAKE 6 TABLETS BY MOUTH EVERY WEEK 24 tablet 0 05/26/2023 Active Start: 04-29-2023 methotrexate 2 .5 MG tablet Indications: 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) (HCC) Take 6 tablets (15 mg total) by mouth every 7 days. 24 tablet 0 04/29/2023 Active Start: 01-27-2023 End: 03-29-2023 take 8 tablets by mouth every week methotrexate 2.5 MG tablet Indications: 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) (HCC) take 8 tablets by mouth every week *FOLLOW DIRECTIONS CAREFULLY, AND ASK TO EXPLAIN ANY PART YOU DO NOT UNDERSTAND* (TAKE EXACTLY DIRECTED) 32 tablet 1 03/29/2023 Active Start: 04-23-2022 End: 09-14-2022 take 8 tablets by mouth every week methotrexate 2.5 MG tablet Indications: 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) (HCC) Take 8 tablets (20 mg total) by mouth 1 (one) time per week. Follow directions carefully, and ask to explain any part you do not understand. Take exactly as directed. 32 tablet 3 09/14/2022 Active Start: 03-10-2022 End: 07-08-2022 methotrexate 2.5 mg tablet T gómez 15 mg by mouth. 0 03/10/2022 07/08/2022 Active Start: 03-10-2022 End: 07-08-2022 take 6 tablets by mouth every week methotrexate 2.5 MG tablet Indications: 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) (HCC) Take 6 tablets (15 mg total) by mouth 1 (one) time per week. Follow directions carefully, and ask to explain any part you do not understand. Take exactly as directed. 24 tablet 3 03/10/2022 07/08/2022 Active Comment on above: Take 15 mg by mouth. methylPREDNISolone 4 mg oral tablet (20 sources) Corticosteroid Start: 2023 End: 2024 take 2 tablets by mouth once daily, then take 1 tablet by mouth once daily methylPREDNISolone (Medrol) 4 MG tablet Take 2 tabs po every day for one week then 1 tab po every day for one week 21 tablet 11/16/2023 12/26/2024 Discontinued (Therapy completed) Start: 10-14-2023 End: 11-16-2023 take 3 tablets by mouth once in the morning, then take 2 tablets by mouth once in the morning, then take 1 tablet by mouth once in the morning methylPREDNISolone (Medrol) 4 MG tablet 3 po q am x 4 days then 2 po q am x 4 days then 1 po q am x 4 days and off 24 tablet 10/14/2023 11/16/2023 Discontinued (Reorder) nabumetone 750 mg oral tablet (20 sources) Nonsteroidal Anti-inflammatory Drug Start: 08-26-2023 End: 10-18-2024 take 1 tablet by mouth twice daily Nabumetone 750 mg tablet Discontinued 750 mg PO TWICE A DAY March 16, 2024 1:00am October 18, 2024 9:40pm 24 hr nicotine 0.583 mg/hr transdermal system (9 sources) Cholinergic Nicotinic Agonist Start: 06-12-2021 End: 06-30-2021 apply 1 dose transdermal route every twenty-four hours nicotine (NICODERM) 14 mg/24 hr Apply 1 Patch as directed every 24 hours. No smoking with patch. Apply 21mg patch once daily for 6 weeks, then 14mg patch once daily for 2 weeks, then 7mg patch once daily for 2 weeks. 14 Patch 0 06/26/2021 06/30/2021 Discontinued Start: 06-12-2021 End: 06-30-2021 apply 1 dose transdermal route every twenty-four hours nicotine (NICODERM) 21 mg/24 hr Apply 1 Patch as directed every 24 hours. NO smoking while on patch. Apply 21mg patch once daily for 6 weeks, then 14mg patch once daily for 2 weeks, then 7mg patch once daily for 2 weeks. 54 Patch 0 06/26/2021 06/30/2021 Discontinued Start: 06-12-2021 End: 06-30-2021 apply 1 dose transdermal route every twenty-four hours nicotine (NICODERM) 7 mg/24 hr Apply 1 Patch as directed every 24 hours. No smoking with patch. Apply 21mg patch once daily for 6 weeks, then 14mg patch once daily for 2 weeks, then 7mg patch once daily for 2 weeks. 14 Patch 0 06/26/2021 06/30/2021 Discontinued Comment on above: Apply 1 Patch as dir ected every 24 hours. NO smoking while on patch. Apply 21mg patch once daily for 6 weeks, then 14mg patch once daily for 2 weeks, then 7mg patch once daily for 2 weeks. Apply 1 Patch as dir ected every 24 hours. No smoking with patch. Apply 21mg patch once daily for 6 weeks, then 14mg patch once daily for 2 weeks, then 7mg patch once daily for 2 weeks. nitrofurantoin, macrocrystals 100 mg oral capsule (7 sources) Nitrofuran Antibacterial Start: End: take 1 capsule by mouth every twelve hours at mealtime Nitrofurantoin Macrocrystal 100 mg capsule Discontinued 100 mg PO Q12H 20 10 0 April 28, 2017 1:00am May 07, 2017 1:00am May 08, 2017 1:06am administer with food (meal or snack) nitrofurantoin, macrocrystals 25 mg / nitrofurantoin, monohydrate 75 mg oral capsule (14 sources) Nitrofuran Antibacterial Start: End: take 1 capsule by mouth every twelve hours at mealtime Nitrofurantoin Monohyd/M-Cryst 100 mg capsule Discontinued 1 NMA PO Q12H 14 7 0 July 14, 2018 12:00am July 20, 2018 12:00am July 21, 2018 12:08am Cystitis, unspecified without hematuria administer with a meal/food; swallow whole; do not open, crush, dissolve , or chew Start: 04-14-2017 End: 04-21-2017 take 1 capsule by mouth every twelve hours at mealtime Nitrofurantoin Monohyd/M-Cryst 100 mg capsule Discontinued 1 NMA PO Q12H 14 7 0 April 14, 2017 1:00am April 20, 2017 1:00am April 21, 2017 1:05am Cystitis, unspecified without hematuria administer with a meal/food; swallow whole; do not open, crush, dissolve , or chew oxaprozin 600 mg oral tablet (7 sources) Nonsteroidal Anti-inflammatory Drug Start: 07-16-2021 End: 03-16-2024 take 1 tablet by mouth three times daily Oxaprozin 600 mg tablet Discontinued 600 mg PO THREE TIMES A DAY 20 0 July 16, 2021 12:00am March 16, 2024 4:47pm phenazopyridine hydrochloride 100 mg oral tablet (7 sources) Start: 04-14-2017 End: 04-15-2017 take 1 tablet by mouth three times daily at mealtime for pain Phenazopyridine (Pyridium) 100 mg tablet Discontinued 100 mg PO THREE TIMES A DAY as needed for pain 7 0 0 April 14, 2017 1:00am April 14, 2017 1:00am April 15, 2017 1:10am Cystitis, unspecified without hematuria administer with a full glass of water after each meal predniSONE 5 mg oral tablet (12 sources) Start: 07-30-2024 End: 12-26-2024 take 2 tablets by mouth once daily, then take 1 tablet by mouth once daily predniSONE (Deltasone) 5 MG tablet Take 2 tabs po every day for one week then 1 tab po every day for one week 21 tablet 07/30/2024 12/26/2024 Discontinued (Therapy completed) Start: 03-28-2019 End: 04-09-2019 Prednisone 10 mg tablet Disc ontinued 10 mg PO daily 30 12 March 28, 2019 1:00am April 08, 2019 1:00am April 09, 2019 1:08am Unspecified contact dermatitis, unspecified cause Take 4 tabs once daily days 1-3 3 tabs once daily days 4-6 2 tabs once daily days 7-9 and 1 tab once daily days 10-12. saccharomyces boulardii 250 mg oral capsule (20 sources) End: 02-10-2024 Saccharomyces boulardii (probiotic) 250 MG capsule Take 350 mg by mouth daily. 02/10/2024 Discontinued (Therapy completed) 0.25 mg, 0.5 mg dose 1.5 ml semaglutide 1.34 mg/ml pen injector (20 sources) Start: 03-16-2024 End: 09-24-2024 Semaglutide 0.25 mg or 0.5 m g(2 mg/1.5 mL) pen injector Discontinued 0.5 mg SC B[place] March 16, 2024 4:39pm September 24, 2024 11:19am diabetes Start: 06-12-2021 End: 02-10-2024 semaglutide (Ozempic, 0.25 o r 0.5 MG/DOSE,) 2 MG/1.5ML solution pen-injector 0.5mg weekly 0 06/25/2021 Active Start: 01-10-2020 End: 03-16-2024 Semaglutide 0.25 MG/0.2 ML p en injector Discontinued 0.25 mg SQ B[place] January 10, 2020 12:00am March 16, 2024 4:48pm diabetes Comment on above: 0.5mg weekly Inject 0.5 mg subcut aneously one time a week. semaglutide (OZEMPIC) 0.25 mg or 0.5 mg (2 mg/3 mL) pen (20 sources) Start: 024 End: 025 inject 0.5 mg by subcutaneous injection every week semaglutide (OZEMPIC) 0.25 mg or 0.5 mg (2 mg/3 mL) pen Indications: Type 2 diabetes mellitus with diabetic nephropathy, with long-term current use of insulin (HCC) Inject 0.5 mg subcutaneously one time a week. 9 mL 3 11/10/2023 08/09/2024 Discontinued Start: 11-10-2023 inject 0.5 mg by sub cutaneous injection every week semaglutide (OZEMPIC) 0.25 mg or 0.5 mg (2 mg/3 mL) pen Indications: Type 2 diabetes mellitus with diabetic nephropathy, with long-term current use of insulin (HCC) Inject 0.5 mg subcutaneously one time a week. 9 mL 3 11/10/2023 Active Start: 10-24-2023 End: 11-10-2023 inject 0.5 mg by subcutaneous injection every week semaglutide (OZEMPIC) 0.25 mg or 0.5 mg (2 mg/3 mL) pen Indications: Type 2 diabetes mellitus with diabetic nephropathy, with long-term current use of insulin (HCC) Inject 0.5 mg subcutaneously one time a week. 9 mL 3 10/24/2023 11/10/2023 Discontinued Start: 10-24-2023 inject 0.5 mg by sub cutaneous injection every week semaglutide (OZEMPIC) 0.25 mg or 0.5 mg (2 mg/3 mL) pen Indications: Type 2 diabetes mellitus with diabetic nephropathy, with long-term current use of insulin (HCC) Inject 0.5 mg subcutaneously one time a week. 9 mL 3 10/24/2023 Active Start: 04-07-2023 End: 10-24-2023 inject 0.5 mg by subcutaneous injection every week semaglutide (OZEMPIC) 0.25 mg or 0.5 mg (2 mg/3 mL) pen Inject 0.5 mg subcutaneously one time a week. 9 mL 3 04/07/2023 10/24/2023 Discontinued Start: 04-07-2023 inject 0.5 mg by sub cutaneous injection every week semaglutide (OZEMPIC) 0.25 mg or 0.5 mg (2 mg/3 mL) pen Inject 0.5 mg subcutaneously one time a week. 9 mL 3 04/07/2023 Active Comment on above: Inject 0.5 mg subcut aneously one time a week. semaglutide (OZEMPIC) 1 mg/dose (4 mg/3 mL) pen (20 sources) Start: 023 End: inject 1 mg by subcutaneous injection every week semaglutide (OZEMPIC) 1 mg/dose (4 mg/3 mL) pen Inject 1 mg subcutaneously one time a week. 9 mL 3 09/02/2022 03/29/2023 Discontinued Start: 09-02-2022 inject 1 mg by subcu taneous injection every week semaglutide (OZEMPIC) 1 mg/dose (4 mg/3 mL) pen Inject 1 mg subcutaneously one time a week. 9 mL 3 09/02/2022 Active Start: 01-11-2022 End: 04-01-2022 inject 1 mg by subcutaneous injection every week semaglutide (OZEMPIC) 1 mg/dose (4 mg/3 mL) pen Inject 1 mg subcutaneously one time a week. 3 Each 3 01/11/2022 04/01/2022 Discontinued Start: 01-11-2022 inject 1 mg by subcu taneous injection every week semaglutide (OZEMPIC) 1 mg/dose (4 mg/3 mL) pen Inject 1 mg subcutaneously one time a week. 3 Each 3 01/11/2022 Active Comment on above: Inject 1 mg subcutan eously one time a week. sulfamethoxazole 800 mg / trimethoprim 160 mg oral tablet (7 sources) Dihydrofolate Reductase Inhibitor Antibacterial, Sulfonamide Antimicrobial Start: End: Sulfamethoxazole-Tr imethoprim (Bactrim Ds) 800-160 mg tablet Discontinued 1 {tbl} PO Q12H 14 7 0 March 05, 2019 1:00am March 11, 2019 1:00am March 13, 2019 1:09am traMADol hydrochloride 50 mg oral tablet (11 sources) Opioid Agonist Start: End: take 1-2 tablets by mouth at bedtime as needed for pain Tramadol 50 mg tablet Discontinued 0 PO AT BEDTIME as needed for pain 10 0 July 28, 2021 3:42pm March 16, 2024 4:48pm 1-2 tablets PO at bedtime PRN; triamcinolone acetonide 40 mg/ml injectable suspension (20 sources) Corticosteroid Start: End: Kenalog (triamcinolone acetonide) 40 mg/mL suspension for injection Discontinued 50 MG INTRAARTIC ONCE 1.25 May 18, 2021 8:34am May 18, 2021 2:30pm Start: 01-10-2020 End: 05-18-2021 Triamcinolone Acetonide 1 SP RAY aerosol,spray Discontinued 2 NMA NASAL DAILY January 10, 2020 12:00am May 18, 2021 9:12am allergies Start: 01-10-2020 End: 05-18-2021 Triamcinolone Acetonide Disc ontinued 2 SPRAY NASAL DAILY January 10, 2020 12:00am May 18, 2021 9:12am take 2 spray(s) nasa l route in the morning triamcinolone (Nasacort) 55 MCG/ACT nasal inhaler Administer 2 sprays into affected nostril(s) in the morning. Active Comment on above: Use 2 Sprays in the nose once daily. Problems Active Problems Problem Classification Problem Date Documented Da te Episodic/Chronic Abdominal pain (2 sources) Epigastric pain; Translations: [Epigastric pain] Episodic Allergic reactions (5 sources) Contact dermatitis; Translations: [Unspecified contact dermatitis, unspecified cause] 03-28-2019 Episodic Anxiety disorders (20 sources) Mixed anxiety and depressive disorder; Translations: [Other specified anxiety disorders] Onset: 4 Chronic Cardiac dysrhythmias (20 sources) Supraventricular tachycardia; Translations: [SVT (supraventricular tachycardia) (HCC)] Onset: 4 02-01-2024 Chronic Complications of surgical procedures or medical care (2 sources) Insulin lipohypertrophy; Translations: [Other complications following infusion, transfusion and therapeutic injection, initial encounter] 09-24-2024 Episodic Conduction disorders (4 sources) First degree atrioventricular block; Translations: [Atrioventricular block, first degree] Onset: 5 02-01-2024 Chronic Diabetes mellitus with complications (20 sources) Insulin treated type 2 diabetes mellitus; Translations: [Type 2 diabetes mellitus with diabetic nephropathy] Onset: 4 Chronic Diabetes mellitus without complication (20 sources) Type 2 diabetes mellitus; Translations: [Type 2 diabetes mellitus without complications] Onset: 5 Chronic Diseases of mouth; excluding dental (1 source) Abscess of tongue; Translations: [Glossitis] 09-08-2023 Episodic Diseases of white blood cells (3 sources) Leukocytosis; Translations: [Elevated white blood cell count, unspecified] Onset: 5 Chronic Disorders of lipid metabolism (20 sources) Hyperlipidemia; Translations: [Hyperlipidemia, unspecified] Onset: 4 Chronic Esophageal disorders (20 sources) Gastroesophageal reflux disease without esophagitis; Translations: [Gastro-esophageal reflux disease without esophagitis] Onset: 2 Chronic Essential hypertension (20 sources) Essential hypertension; Translations: [Essential (primary) hypertension] Onset: 4 Chronic Gout and other crystal arthropathies (1 source) Familial chondrocalcinosis; Translations: [Familial chondrocalcinosis, unspecified site] Onset: 2 Chronic Heart valve disorders (1 source) Mitral valve prolapse; Translations: [Nonrheumatic mitral (valve) prolapse] 12-19-2023 Chronic Immunizations and screening for infectious disease (5 sources) Viral screening status; Translations: [Encounter for screening for other viral diseases] Episodic Nausea and vomiting (9 sources) Vomiting; Translations: [Vomiting, unspecified] 05-02-2013 Episodic Nonmalignant breast conditions (1 source) Breast infection; Translations: [Mastitis without abscess] Episodic Osteoarthritis (5 sources) Osteoarthritis of knee; Translations: [Unilateral primary osteoarthritis, left knee] Onset: 2 Chronic Other aftercare (2 sources) Taking high risk medication; Translations: [Other prison (current) drug therapy] 09-14-2022 Episodic Other aftercare (1 source) Patient encounter status; Translations: [Other financial services officer (current) drug therapy] 01-06-2023 Episodic Other aftercare (4 sources) Drug therapy finding; Translations: [On methotrexate therapy] 08-09-2023 Episodic Other aftercare (1 source) H/O: high risk medication; Translations: [Other financial services officer (current) drug therapy] 10-14-2023 Episodic Other circulatory disease (20 sources) Raynaud's disease; Translations: [Raynaud's syndrome without gangrene] Onset: 6 04-07-2015 Chronic Other connective tissue disease (1 source) Prepatellar bursitis; Translations: [Prepatellar bursitis, left knee] Onset: 2 Episodic Other connective tissue disease (20 sources) Fibromyalgia; Translations: [Fibromyalgia] Onset: 4 03-23-2021 Episodic Other connective tissue disease (5 sources) Synovial cyst of left popliteal space; Translations: [Synovial cyst of popliteal space [Means], left knee] 06-12-2021 Episodic Other connective tissue disease (5 sources) Synovial cyst of popliteal space [Means], left knee; Translations: [Synovial cyst of popliteal space] Episodic Other ear and sense organ disorders (1 source) Otalgia, left ear; Translations: [Otalgia, unspecified] 01-06-2023 Episodic Other endocrine disorders (4 sources) Hypoglycemia; Translations: [Drug-induced hypoglycemia without coma] 09-08-2022 Chronic Other gastrointestinal disorders (20 sources) Irritable bowel syndrome with diarrhea; Translations: [Irritable bowel syndrome with diarrhea] Onset: 6 02-28-2016 Chronic Other gastrointestinal disorders (2 sources) Irritable bowel syndrome; Translations: [Irritable bowel syndrome without diarrhea] 03-16-2024 Chronic Other gastrointestinal disorders (1 source) Occult blood in stools; Translations: [Other fecal abnormalities] 05-09-2023 Episodic Other hereditary and degenerative nervous system conditions (20 sources) Restless legs; Translations: [Restless legs syndrome] Onset: 7 Chronic Other hereditary and degenerative nervous system conditions (2 sources) Restless legs syndrome; Translations: [Restless legs] Onset: 5 Chronic Other inflammatory condition of skin (1 source) Intertrigo; Translations: [Erythema intertrigo] 10-10-2024 Episodic Other lower respiratory disease (9 sources) Wheezing; Translations: [Wheezing] 10-18-2020 Episodic Other lower respiratory disease (2 sources) Cough; Translations: [Acute cough] 01-06-2023 Episodic Other lower respiratory disease (1 source) Dyspnea; Translations: [Shortness of breath] 12-19-2023 Episodic Other nervous system disorders (20 sources) Chronic pain syndrome; Translations: [Chronic pain syndrome] Onset: 8 12-19-2017 Chronic Other nervous system disorders (1 source) Chronic pain syndrome; Translations: [Chronic pain syndrome] Onset: 8 Chronic Other nervous system disorders (1 source) Paresthesia of hand ; Translations: [Anesthesia of skin] Episodic Other non-traumatic joint disorders (1 source) Knee joint effusion; Translations: [Effusion, left knee] Onset: 2 Episodic Other non-traumatic joint disorders (15 sources) Effusion of joint of left knee; Translations: [Effusion, left knee] 05-18-2021 Episodic Other non-traumatic joint disorders (20 sources) Pain in left knee; Translations: [Acute pain of left knee] Episodic Other non-traumatic joint disorders (7 sources) Effusion, left knee; Translations: [Effusion of joint, lower leg] Episodic Other non-traumatic joint disorders (5 sources) Shoulder pain; Translations: [Pain in unspecified shoulder] 08-12-2021 Episodic Other non-traumatic joint disorders (3 sources) Multiple joint pain; Translations: [Pain in unspecified joint] Episodic Other nutritional; endocrine; and metabolic disorders (2 sources) Hypercalcemia; Translations: [Hypercalcemia] Chronic Other nutritional; endocrine; and metabolic disorders (3 sources) Obesity; Translations: [Obesity, unspecified] 06-07-2023 Chronic Other screening for suspected conditions (not mental disorders or infectious disease) (6 sources) Elevated C-reactive protein; Translations: [Elevated C-reactive protein (CRP)] Episodic Other skin disorders (1 source) Dry skin; Translations: [Xerosis cutis] Episodic Other skin disorders (1 source) Cyst of skin; Translations: [Follicular cyst of the skin and subcutaneous tissue, unspecified] 09-08-2023 Episodic Other skin disorders (1 source) Lesion of skin of foot; Translations: [Changes in skin texture] 05-11-2024 Episodic Other upper respiratory disease (1 source) Allergic rhinitis; Translations: [Allergic rhinitis, unspecified] 05-11-2024 Chronic Other upper respiratory infections (1 source) Chronic maxillary sinusitis; Translations: [Chronic maxillary sinusitis] 05-11-2024 Chronic Other upper respiratory infections (10 sources) Acute sinusitis; Translations: [Acute sinusitis, unspecified] 03-05-2019 Episodic Otitis media and related conditions (3 sources) Acute otitis media; Translations: [Otitis media, unspecified, unspecified ear] 05-09-2023 Episodic Poisoning by other medications and drugs (7 sources) Poisoning by antidiabetic agent; Translations: [Poisoning by insulin and oral hypoglycemic [antidiabetic] drugs, accidental (unintentional), initial encounter] 01-12-2020 Episodic Residual codes; unclassified (7 sources) Pain; Translations: [Pain, unspecified] 07-27-2021 Episodic Residual codes; unclassified (2 sources) Insomnia; Translations: [Insomnia, unspecified] Episodic Rheumatoid arthritis and related disease (20 sources) Ankylosing spondylitis; Translations: [Ankylosing spondylitis of unspecified sites in spine] Onset: 4 Chronic Skin and subcutaneous tissue infections (2 sources) Abscess of skin and/or subcutaneous tissue; Translations: [Cutaneous abscess, unspecified] Episodic Substance-related disorders (20 sources) Moderate smoker (20 or less per day) ; Translations: [Nicotine dependence, cigarettes, uncomplicated] Onset: 2 Chronic Unclassified (1 source) Patient encounter status 05-11-2024 Urinary tract infections (9 sources) Cystitis; Translations: [Cystitis, unspecified without hematuria] 04-14-2017 Episodic Past or Other Problems Problem Classification Problem Date Documented Da te Episodic/Chronic Cardiac dysrhythmias (7 sources) Palpitations; Translations: [Palpitations] Onset: 02-15-2024 12-19-2023 Episodic Coagulation and hemorrhagic disorders (2 sources) Easy bruising; Translations: [Spontaneous ecchymoses] Onset: 08-09-2024 08-09-2024 Episodic Diabetes mellitus without complication (2 sources) Hyperglycemia; Translations: [Hyperglycemia, unspecified] Onset: 10-25-2024 10-19-2024 Episodic Genitourinary symptoms and ill-defined conditions (20 sources) Proteinuria; Translations: [Proteinuria, unspecified] Onset: 04-19-2013 04-19-2013 Episodic Malaise and fatigue (3 sources) Fatigue; Translations: [Other fatigue] Onset: 08-09-2024 08-09-2024 Episodic Neoplasms of unspecified nature or uncertain behavior (20 sources) Thrombocytosis; Translations: [Thrombocytosis] Onset: 06-16-2021 06-16-2021 Episodic Nutritional deficiencies (4 sources) Iron deficiency; Translations: [Iron deficiency] Onset: 08-09-2024 08-09-2024 Episodic Other aftercare (1 source) nursing home (current) use of insulin; Translations: [Type 2 diabetes mellitus with diabetic nephropathy, with long-term current use of insulin (HCC)] Onset: 03-23-2021 Episodic Other connective tissue disease (20 sources) Tendinitis of hand; Translations: [Other enthesopathies, not elsewhere classified] Onset: 12-18-2014 03-23-2021 Episodic Other connective tissue disease (1 source) Fibromyalgia; Translations: [Fibromyalgia syndrome] Onset: 03-23-2021 Episodic Other inflammatory condition of skin (1 source) Erythema intertrigo; Translations: [Intertrigo] Onset: 10-10-2024 Episodic Residual codes; unclassified (20 sources) Tobacco user; Translations: [Tobacco use] Onset: 04-19-2013 04-19-2013 Episodic Residual codes; unclassified (1 source) Tobacco use; Translations: [Tobacco abuse] Onset: 04-19-2013 Episodic Syncope (5 sources) Near syncope; Translations: [Syncope and collapse] Onset: 04-18-2024 12-19-2023 Episodic Results Test Name Value Interpretation Reference Range Facility 36on 02-06-2025 36 S: Patient is callin g the [facility] with complaint of hand pain. B: Ongoing since weeks A: Pt endorses was seen in office on 12/26/24 and relieved to provider at that time having nerve pain to fingers. Pt endorse Right hand finger, thumb an palm increased burning and at time radiates up to elbow, intermittent pain left hand pain. Pt endorses now pain is waking patient up at night. Pt questioning use of steroids at this time. Pt currently is on Insulin pump. Also on Trulicity. Pt requesting to have Steroids sent to pharmacy at this time. Pharmacy and allergies verified. Pt states when/if he sends in steroids I will contact my insulin doctor and advise so I can adjust my pump. R: Home Care advice given for hand/wrist pain. Patient instructed to call back with new or worsening symptoms. Patient verbalized understanding Message to the office for review by the provider and needs recommendation from Provider for treatment going forward. Reason for Disposition MODERATE pain (e.g., interferes with normal activities) and present > 3 days Protocols used: Hand and Wrist [id number]-[id number] Normal [facility] CBC panel Auto (Bld)on 02-05 Erythrocyte distribution width (RBC) [Ratio] 14.2 % Normal 11.5-15.0 [facility] Comment on above: Order Comment: Speccesar carter Type: BLOOD SPECIMENOrdering Facility: [facility] Address: [address] [place], [place] [address] [address] Performed By: #### 5 8410-2 ####[facility] LABCL[facility] [id number] [place] [address] [place] Hematocrit (Bld) [Volume fraction] 45.3 % Normal 36.0-46.0 [facility] Comment on above: Order Comment: Cherry carter Type: BLOOD SPECIMENOrdering Facility: [facility] Address: [address] [place] [address] Performed By: #### 5 8410-2 ####[facility] LABCLIA [id number] [place] [address] [place] Hemoglobin (Bld) [Mass/Vol] 15.1 g/dL Normal 11.5-15.5 [facility] Comment on above: Order Comment: Speci men Type: BLOOD SPECIMENOrdering Facility: [facility] Address: [address] [facility] [place] [address] Performed By: #### 5 8410-2 ####[facility] LABCLIA [id number] [address] [place] MCH (RBC) [Entitic mass] 30.0 pg Normal 26.0-34.0 [facility] Comment on above: Order Comment: Speci men Type: BLOOD SPECIMENOrdering Facility: [facility] Address: [address] [place], [place] [address] [address] Performed By: #### 5 8410-2 ####[facility] LABCLIA [id number] [place] [address] [place] MCHC (RBC) [Mass/Vol] 33.3 g/dL Normal 30.5-36.0 [facility] Comment on above: Order Comment: Speci men Type: BLOOD SPECIMENOrdering Facility: [facility] Address: [address] [place] [address] Performed By: #### 5 8410-2 ####[facility] LABCLIA [id number] [place] [address] [place] MCV (RBC) [Entitic vol] 90.1 fL Normal 80.0-100.0 [facility] Comment on above: Order Comment: Speci men Type: BLOOD SPECIMENOrdering Facility: [facility] Address: [address] [place] [address] [place] [address] Performed By: #### 5 8410-2 ####[facility] LABCLIA [id number] [address] [place] Nucleated RBC (Bld) [#/Vol] 10*3/uL Normal <0.01 [facility] Comment on above: Order Comment: Speci men Type: BLOOD SPECIMENOrdering Facility: [facility] Address: [address] [place] [address] [place] [address] Performed By: #### 5 8410-2 ####[facility] LABCLIA [id number] [place] [address] [place] Platelet mean volume (Bld) [Entitic vol] 10.2 fL Normal 9.0-12.7 [facility] Comment on above: Order Comment: Speci men Type: BLOOD SPECIMENOrdering Facility: [facility] Address: [address] [place] [address] Performed By: #### 5 8410-2 ####[facility] LABCLIA [id number] [place] [id number] [place] Platelets (Bld) [#/Vol] 434 10*3/uL High 150-400 [facility] Comment on above: Order Comment: Speci men Type: BLOOD SPECIMENOrdering Facility: [facility] Address: [address] [place] [address] Performed By: #### 5 8410-2 ####[facility] LABCLIA [id number] [place] [address] [place] RBC (Bld) [#/Vol] 5.03 10*6/uL Normal 3.90-5.20 [facility] Comment on above: Order Comment: Speci men Type: BLOOD SPECIMENOrdering Facility: [facility] Address: [address] [place] [address] Performed By: #### 5 8410-2 ####[facility] LABCLIA [id number] [place] [id number] [place] WBC (Bld) [#/Vol] 6.84 10*3/uL Normal 3.70-11.00 [facility] Comment on above: Order Comment: Speci men Type: BLOOD SPECIMENOrdering Facility: [facility] Address: [address] [place] [address] Performed By: #### 5 8410-2 ####[facility] LABCLIA [id number] [place] [id number] [place] CRP [facility] 02-05-2025 CRP [Mass/Vol] mg/L Normal <0.9 [facility] Comment on above: Order Comment: Speci men Type: BLOOD SPECIMEN Ordering Facility: [facility] Address: [address] [place] [address] Performed By: #### 2 4322-10, 1987-07 #### [facility] CLIA [id number] [address] [place] [address] [place] Comprehensive metabolic 2000 panelon 02-05-2025 Albumin [Mass/Vol] 3.8 g/dL Low 3.9-4.9 [facility] Comment on above: Order Comment: Speci men Type: BLOOD SPECIMEN [facility] [address] [facility] [address] Performed By: #### 2 4322-10, 1987-07 #### [facility] CLIA [id number] [address] [place] [address] [place] ALP [Catalytic activity/Vol] 75 U/L Normal 34-123 [facility] Comment on above: Order Comment: Speci men Type: BLOOD SPECIMEN [facility]: [address] [facility] [address] Performed By: #### 2 4322-10, 1987-07 #### [facility] CLIA [id number] [address] [place] [address] [place] ALT [Catalytic activity/Vol] 25 U/L Normal 7-38 [facility] Comment on above: Order Comment: Speci men Type: BLOOD SPECIMEN Ordering Facility: [facility] Address: [address] [place] [address] Performed By: #### 2 4322-10, 1987-07 #### [facility] CLIA [id number] [address] [place] [address] [place] Anion gap [Moles/Vol] 12 mmol/L Normal 8-15 [facility] Comment on above: Order Comment: Speci men Type: BLOOD SPECIMEN Ordering Facility: [facility] Address: [address] [place] [address] Performed By: #### 2 4322-10, 1987-07 #### [facility] CLIA [id number] [address] [place] [address] [place] AST [Catalytic activity/Vol] 21 U/L Normal 13-35 [facility] Comment on above: Order Comment: Speci men Type: BLOOD SPECIMEN Ordering Facility: [facility] Address: [address] [place] [address] Performed By: #### 2 4322-10, 1987-07 #### [facility] CLIA [id number] [address] [place] [address] [place] Bilirubin [Mass/Vol] 0.2 mg/dL Normal 0.2-1.3 [facility] Comment on above: Order Comment: Speci men Type: BLOOD SPECIMEN Ordering Facility: [facility] Address: [address] [place] [address] Performed By: #### 2 4322-10, 1987-07 #### [facility] CLIA [id number] [address] [place] [address] [place] Calcium [Mass/Vol] 9.7 mg/dL Normal 8.5-10.2 [facility] Comment on above: Order Comment: Speci men Type: BLOOD SPECIMEN Ordering Facility: [facility] Address: [address] [place] [address] Performed By: #### 2 4322-10, 1987-07 #### [facility] CLIA [id number] [address] [place] [address] [place] Chloride [Moles/Vol] 102 mmol/L Normal 98-107 [facility] Comment on above: Order Comment: Speci men Type: BLOOD SPECIMEN Ordering Facility: [facility] Address: [address] [place] [address] Performed By: #### 2 4322-10, 1987-07 #### [facility] CLIA [id number] [address] [place] [address] [place] CO2 [Moles/Vol] 22 mmol/L Normal 22-30 [facility] Comment on above: Order Comment: Speci emma Type: BLOOD SPECIMEN Ordering Facility: [facility] Address: [address] [place] [address] Performed By: #### 2 43206-02, 1987-07 #### [facility] CLIA [id number] [address] [place] [address] [place] Creatinine [Mass/Vol] 0.81 mg/dL Normal 0.58-0.96 [facility] Comment on above: Order Comment: Speci men Type: BLOOD SPECIMEN Ordering Facility: [facility] Address: [address] [place] [address] Performed By: #### 2 43206-02, 1987-07 #### [facility] CLIA [id number] [address] [place] [address] [place] eGFRcr SerPlBld CKD-EPI 2020 86 mL/min/1.73m??? Normal >=60 [facility] Comment on above: Order Comment: Speci men Type: BLOOD SPECIMEN Ordering Facility: [facility] Address: [address] [place] [address] Result Comment: Linda mated Glomerular Filtration Rate (eGFR) is calculated using the 2020 CKD-EPI creatinine equation. This equation utilizes serum creatinine, sex, and age as parameters. The creatinine assay has traceable calibration to isotope dilution-mass spectrometry. Refer to KDIGO guidelines for clinical interpretation. In patients with unstable renal function, e.g. those with acute kidney injury, the eGFR may not accurately reflect actual GFR. Performed By: #### 2 4328, 1987-07 #### [facility] CLIA [id number] [address] [place] [address] [place] Glucose [Mass/Vol] 189 mg/dL High 74-99 [facility] Comment on above: Order Comment: Speci men Type: BLOOD SPECIMEN Ordering Facility: [facility] Address: [address] [place] [address] Result Comment: The [place] Diabetes Association (ADA) provides guidance for cutoff values for fasting glucose and random glucose. The ADA defines fasting as no caloric intake for at least 8 hours. Fasting plasma glucose results between 100 to 125 [...] Standards of Medical Care in Diabetes 2016, [place] [employer] Association. Diabetes Care. 2016.39(Suppl 1). Performed By: #### 2 4322-10, 1987-07 #### [facility] CLIA [id number] [address] [place] [address] [place] Potassium [Moles/Vol] 4.3 mmol/L Normal 3.7-5.1 [facility] Comment on above: Order Comment: Cherry carter Type: BLOOD SPECIMEN Ordering Facility: [facility] Address: [address] [place] [address] Performed By: #### 2 4322-10, 1987-07 #### [facility] CLIA [id number] [address] [place] [address] [place] Protein [Mass/Vol] 6.5 g/dL Normal 6.3-8.0 [facility] Comment on above: Order Comment: Cherry carter Type: BLOOD SPECIMEN Ordering Facility: [facility] Address: [address] [place] [address] Performed By: #### 2 4322-10, 1987-07 #### [facility] CLIA [id number] [address] [place] [address] [place] Sodium [Moles/Vol] 136 mmol/L Normal 136-144 [facility] Comment on above: Order Comment: Cherry carter Type: BLOOD SPECIMEN Ordering Facility: [facility] Address: [address] [place] [address] Performed By: #### 2 4322-10, 1987-07 #### [facility] CLIA [id number] [address] [place] [id number] [place] Urea nitrogen [Mass/Vol] 17 mg/dL Normal 7-21 [facility] Comment on above: Order Comment: Cherry carter Type: BLOOD SPECIMEN Ordering Facility: [facility] Address: [address] [place] [address] Performed By: #### 2 4322-10, 1987-07 #### [facility] CLIA [id number] [address] [place] [id number] [place] HbA1c (Bld)on 02-05-2025 Average glucose Estimated from glycated hemoglobin (Bld) [Mass/Vol] 194 mg/dL Normal [facility] Comment on above: Order Comment: Cherry carter Type: BLOOD SPECIMEN Ordering Facility: [facility] Address: [address] [place] [address] Result Comment: eAG: (Estimated average glucose) is a calculated value from HgbA1c and is associate financial representative of the average blood glucose level in the last 2-3 month period. Performed By: #### 2 4322-10, 1987-07 #### [facility] CLIA [id number] [address] [place] [address] [place] HbA1c (Bld) [Mass fraction] 8.4 % High 4.3-5.6 [facility] Comment on above: Order Comment: Cherry carter Type: BLOOD SPECIMEN Ordering Facility: [facility] Address: [address] [place] [address] Result Comment: [place] Diabetes Association guidelines indicate that patients with HgbA1c in the range 5.7-6.4% are at increased risk for development of diabetes, and intervention by lifestyle modification may be beneficial. HgbA1c greater or equal to 6.5% is considered diagnostic of diabetes. Performed By: #### 2 4322-10, 1987-07 #### [facility] CLIA [id number] [address] [place] [id number] [place] Endocrinology Visit Reporton 11-05-2025 Endocrinology Visit Report [facility] [address] [place] [address] OFFICE VISIT Date of Service: 01/30/25 MR#: [id number] Acct: [id number] Name: JAROD RODARTE Rep #: [id number] : 1970 Provider: MARTA edgar Age/Sex: 54/F Location: [place] Status: Signed Intake Vital Signs 10/18/24 21:28 01/30/25 13:02 Height 5 ft 4 in 5 ft 4 in Weight: 204 lb BMI 35.0 BP 149/88 H Blood Pressure Location Lt brachial Position Sitting Pulse 76 Pulse Source Monitor Pulse Oximetry (%) 95 Oxygen Delivery Method room air Intake Visit Reasons: 5 M FU Chief Complaint: f/u diabetes Cipher Expert Required: No Accompanied by: Significant Other Is patient in pain?: Yes Pain scale (1-10): 7 Allergies empagliflozin (From Jardiance) Allergy (Intermediate, Verified 01/30/25 13:02) yeast infection etanercept (From Enbrel) Allergy (Intermediate, Verified 01/30/25 13:02) Palpitations bupropion (From Wellbutrin) Allergy (Verified 01/30/25 13:02) Hives Penicillins Allergy (Verified 01/30/25 13:02) Swelling ropinirole HCl (From Requip) Allergy (Verified 01/30/25 13:02) seizure Medications ???Medication ???Instructions ???Recorded ???Confirmed ???Type losartan 50 mg tablet 50 mg PO DAILY BP 05/01/13 5 History montelukast 10 mg tablet 10 mg PO DAILY breathing 05/01/13 01/30/25 History fenofibrate nanocrystallized 145 145 mg PO DAILY 30 days ##30 04/1401/30/25 History mg tablet amlodipine 5 mg tablet 5 mg PO DAILY BP 04/15/18 01/30/25 History aspirin 81 mg chewable tablet 81 mg PO DAILY@0800 heart health 0 04/15/18 01/30/25 History atorvastatin 20 mg tablet 20 mg PO DAILY cholesterol 9 01/30/25 History pramipexole 0.5 mg tablet 0.5 mg PO QHS restless legs 01/30/25 History abatacept 125 mg/mL subcutaneous 125 mg subcut QWEEK 03/16/2401/30 History syringe (Orencia) celecoxib 200 mg capsule 200 mg PO QDAY 03/16/24 01/30/25 H istory famotidine 20 mg tablet 20 mg PO QDAY 03/16/24 01/30/25 Hi story ferrous sulfate 325 mg (65 mg 325 mg PO .QOD 03/16/24 01/30/25 H istory iron) tablet (FeroSul) hydroxychloroquine 200 mg tablet 200 mg PO BID 03/16/24 01/30/25 Hi story omeprazole 40 mg capsule,delayed 40 mg PO QDAY 03/16/24 01/30/25 Hi story release pramipexole 0.125 mg tablet 0.125 mg PO QDAY PRN RLS 03/16/24 01/30/25 History venlafaxine 75 mg capsule,extended 75 mg PO QDAY 03/16/24 01/30/25 History release 24 hr blood-glucose sensor (Dexcom G6 #1 ea 08/31/24 01/30/25 History Sensor device) blood-glucose transmitter (Dexcom #1 ea 08/31/24 01/30/25 History G6 Transmitter device) diclofenac sodium 1 % topical gel topical 4XD 08/31/24 01/30/25 His tory pen needle, diabetic 31 gauge x #1,200 ea 08/31/24 01/30/25 Histor y 3/16 (Easy Touch) insulin pump cart,auto,BT,G6/7 #15 ea 09/24/24 01/30/25 Rx (Omnipod 5 G6-G7 Pods (Gen 5) subcutaneous cartridge) glucagon 1 mg/0.2 mL subcutaneous 1 mg (0.2 mL) subcut ONCE #0.4 mL 10/01/24 01/30/25 Rx auto-injector (Gvoke HypoPen 2-Pack) blood sugar diagnostic (Accu-Chek #50 ea 10/25/24 01/30/25 Rx Guide test strips) blood-glucose meter (Accu-Chek #1 ea 10/25/24 01/30/25 Rx Guide Glucose Meter) lancets (Accu-Chek Fastclix Lancet #100 ea 10/25/24 01/30/25 Rx Drum) atenolol 50 mg tablet 50 mg PO QDAY 01/30/25 01/30/25 Hi story gabapentin 100 mg capsule 100 mg PO BID 01/30/25 01/30/25 Hi story gabapentin 300 mg capsule 300 mg PO QHS nerve pain 01/30/25 01/30/25 History insulin lispro 200 unit/mL (3 mL) 200 unit subcut .daily via pump 1 04/01/24 01/30/25 Rx subcutaneous pen (Humalog KwikPen #90 mL U-200 Insulin) leflunomide 20 mg tablet 20 mg PO QDAY 01/30/25 01/30/25 Hi story losartan 100 mg tablet 100 mg PO QDAY 01/30/25 01/30/25 H istory [facility] Medical History RLS (restless legs syndrome) IBS (irritable bowel syndrome) Depression with anxiety Hyperlipidemia Essential (primary) hypertension SVT (supraventricular tachycardia) 1st degree AV block Pre-syncope Palpitations Fibromyalgia Poisoning by insulin and oral hypoglycemic [antidiabetic] drugs, accidental (unintentional), initial encounter Raynaud disease DM2 (diabetes mellitus, type 2) Hay fever Diabetes Kidney disease Hypertension Surgical History Hx of knee surgery History of hysterectomy including cervix Family History Mother Hypertension Breast cancer Father Parkinson disease Hyperlipidemia Grandmother COPD (chronic obstructive pulmonary disease) (more content not included)... [facility] CNOVon 01-08-2025 CNOV Office Visit (INTMWS ) JAROD RODARTE ([id number]) 1970 F Date Time Provider Department 01/08/25 2:40 PM MELYSSA MOBLEY INTMWS During your visit today, we recorded the following information about you: Pulse Blood pressure Weight Height 76/minute 134/80 93 kg 1.64 m Melyssa Mobley MD 01/08/2025 6:17 PM Signed Jarod Rodarte is a 54 year old female here for a Medicare wellness visit. Medicare Health Risk Assessment General Health Good Exercise: Minutes/Day 150+ min Exercise: Days/Week 7 days Alcohol: Daily Use Never Alcohol: Drinks/Day Patient does not drink Alcohol: 6 or more drinks Never Feel off balance Yes Concerns: Teeth/Dentures No Concerns: Sexual function No Troubled by feelings Irritable; Anxious Frequency: Eating healthy diet Nearly every day ADLs requiring help None of the above Safety precautions in home/vehicle Yes Smoke, vape, chews tobacco Yes, but I'm not ready to quit Difficulty hearing No Difficulty seeing No Current Providers Specialists: I have reviewed specialist-related care of the patient in the medical record. Medical/Family history review Reviewed and updated problem list, medical/surgical/family/soc ial history, medications, and allergies. Opioid use review Prescribed: No opioid use on file in the last 90 days Patient-reported: No opioid use on file in the last 90 days Depression screening PHQ-2 Score: 0 (01/08/2025 3:06 PM) PHQ-9 Score: 2 (05/11/2024 1:14 PM) Based on score and interview, patient is not at risk for depression. Recommendation: no further intervention at this time Anxiety screening ANNE-2 Total Score: 2 (05/11/2024 1:21 PM) ANNE-7 Total Score: 3 (05/11/2024 1:21 PM) Cognitive screening Mini Cog Score: 3 Cognitive screening reviewed and No further action needed (score 3-5). Functional Observation Was the patient's Timed Up AND Go test unsteady or >= 12 seconds? No Advance Directives Patient did not wish or was not able to name a surrogate decision maker or provide an advance care plan Measurements BP 134/80 (BP Site: Right Arm, BP Position: Sitting, BP Cuff Size: Large Adult) Pulse 76 Ht 164 cm (5' 4.57) Wt 93 kg (205 lb) BMI 34.57 kg/m? Vision Screening: Follows with optometry/ophthalmology Hearing/vision screening results: Vision Screening Right eye - Without correction: With correction: 20/100 Left eye - Without correction: With correction: 20/70 Both eyes - Without correction: With correction: 20/70 Assessment/Plan Medicare annual wellness visit, subsequent (Z00.00) - Counseled on healthy diet and regular exercise - Fall avoidance information provided - Personalized prevention plan provided Reason for Visit HPI The Jarod is a 54-year-old female with a history of RA, MS, and DM, presenting for a Medicare Annual Wellness Visit. The Jarod reports significant chronic pain secondary to RA, affecting her hands, back, ankles, feet, shoulders, and neck. She describes her hands as constantly swollen and experiences difficulty bending her fingers due to joint swelling. She also reports a burning sensation in her hands, which her primary grade teacher has advised is not neuropathy. She denies similar symptoms in her feet. She experiences morning stiffness, taking approximately 2.5 hours to become mobile. She also reports foggy brain symptoms, which she attributes to her RA and chronic pain. She has been on multiple medications for RA, including methotrexate, which was discontinued due to decreased efficacy. She is currently on leflunomide and Orencia, which she started in March after experiencing AFib with Enbrel. She also takes Celebrex and uses topical treatments for hand pain. She reports that gabapentin is ineffective for her pain and is in the process of tapering off this medication. She is also on pramipexole for restless leg syndrome, which she takes in varying doses throughout the day and night. The Jarod reports difficulty with sleep due to pain, often waking at [id number]. She takes 3 arthritic Tylenol to aid sleep but is concerned about the potential impact on her liver. She describes her sleep as hard once she falls asleep but is frequently interrupted by pain. She is on venlafaxine for stress related to caring for her mother, with a higher dose started in March. She also takes fenofibrate, Pepcid, and omeprazole. She is no longer on metformin or Toujeo for DM, as she is now using an insulin pump managed by Lorenzo Avalos. She recently experienced blood glucose levels over 400 mg/dL, which she attributes to pain and a possible kink in the insulin pump pod. She denies current use of naproxen, Relafen, or Plaquenil. The Jarod reports being very active, engaging in activities such as loading and unloading wood, fishing, and walking. She estimates she is active for about 2 hours (more content not included)... Normal [facility] Office Visiton 12-26-2024 Follow-up visit [id number] Robert Rodarte 1970 F Date Provider Department Center 12/26/2024 [id number]-CCIRIFBODILON BARBER RHEUM C None Family History Family Status - Relation Status Age at Mother Alive Father Alive Brother Alive Son Alive Son Alive Level of Service:49540 NM OFFICE/OUTPATIENT ESTABLISHED MOD MDM 30 MIN Reason for Visit and Comments: Follow-up [623457] - Seronegative RA Normal [facility] Progress Noteon 12-26-2024 Progress Note CHIEF COMPLAINT: bill nt pain HPI: Ongoing seronegative rheumatoid arthritis and osteoarthritis. She has had worsening stiffness and swelling in her fingers and toes. Her morning stiffness is longer than an hour. She feels previous Orencia and methotrexate are effective at her last visit, but she has had worsening stiffness and swelling since. No recent infections. Has not had any new rashes. He tried Enbrel the past which was associated with atrial fibrillation and she does not want to take any further similar medications to this. She has not had any recent palpitations or feelings of A-fib. ROS: General: no weight loss, fevers or night sweats HEENT: no dry eyes or mouth, oral ulcers, no visual changes or red eyes, no changes in hearing CV: no chest pain or palpitations Pulm: no worsening shortness of breath, no pleurisy GI: no nausea, GERD : no dysuria, incontinence or changes in kidney function Neuro: no new headaches, weakness or seizures Skin: no new rashes or skin lesions Allergies[1] Current Medications[2] OBJECTIVE: Visit Vitals BP (!) 144/82 (BP Location: Left arm, Patient Position: Sitting, BP Cuff Size: Large adult) Pulse 82 HEENT: no red or dry eyes, oral mucosa moist and without lesions, no alopecia or scalp rashes, no lymphadenopathy CV: S1S2 no mrg Pulm: CTA bilat without wheezes, crackles Abd: soft, nontender MSK: + tenderness in MCPs, PIPs, MTPs with swelling noted Neuro: CN 2-12 grossly intact, strength 5/5, no sensory loss in UE, LE, DTRs 1+ Skin: no rashes, no purpura, no bruising A/P: 1) seronegative rheumatoid arthritis-with worsening symptoms despite current medications. After discussed with the patient, we will try changing methotrexate to leflunomide once a day. She will hold folic acid and methotrexate when she starts leflunomide. She will continue Orencia and hydroxychloroquine at current doses with yearly eye exams for Plaquenil toxicity screens. Consider changing Orencia to Actemra or Kevzara if this is not helpful in the next 1 to 2 months. Continue clinical monitoring every 4 to 6 months. She will hold biologic and leflunomide if she has any signs of fever chills cough or other signs of infection. Orders Placed This Encounter Procedures CBC Standing Status: Future Number of Occurrences: 1 Expected Date: 01/26/2025 Expiration Date: 12/26/2025 Comprehensive metabolic panel Standing Status: Future Number of Occurrences: 1 Expected Date: 01/26/2025 Expiration Date: 12/26/2025 C-reactive protein Standing Status: Future Number of Occurrences: 1 Expected Date: 01/26/2025 Expiration Date: 12/26/2025 Quantiferon TB Gold Standing Status: Future Number of Occurrences: 1 Expected Date: 01/26/2025 Expiration Date: 12/26/2025 Hepatitis B surface antigen Standing Status: Future Number of Occurrences: 1 Expected Date: 01/26/2025 Expiration Date: 12/26/2025 Hepatitis B Core Antibody, Total Standing Status: Future Number of Occurrences: 1 Expected Date: 01/26/2025 Expiration Date: 12/26/2025 Hepatitis B surface antibody Standing Status: Future Number of Occurrences: 1 Expected Date: 01/26/2025 Expiration Date: 12/26/2025 [1] Allergies Allergen Reactions Penicillins Anaphylaxis Bupropion Other Seizure and hives Empagliflozin Hives Ropinirole Seizure [2] Current Outpatient Medications Medication Sig Dispense Refill Abatacept (Orencia ClickJect) 125 MG/ML solution auto-injector Inject 125 mg under the skin every 7 days. 4 mL 5 amLODIPine (Norvasc) 5 MG tablet Take 5 mg by mouth in the morning. aspirin 81 MG EC tablet Take 81 mg by mouth in the morning. atenolol (Tenormin) 50 MG tablet Take 50 mg by mouth in the morning. atorvastatin (Lipitor) 20 MG tablet Take 20 mg by mouth in the morning. BD Pen Needle Teetee 2nd Gen 32G X 4 MM [facility] USE TO INJECT INSULIN SUBCUTANEOUSLY TWICE A DAY DIRECTED Continuous Blood Gluc Sensor (Dexcom G6 Sensor) [facility] Use a new sensor every 10 days. Diclofenac Sodium (Voltaren) 1 % gel Apply 2 g to affected hand bid prn 200 g 3 fenofibrate (Tricor) 145 MG tablet Take 145 mg by mouth in the morning. gabapentin (Neurontin) 100 MG capsule Take 100 mg by mouth 2 times daily. gabapentin (Neurontin) 300 MG capsule Take 300 mg by mouth Nightly. glucagon (Gvoke HypoPen) 1 MG/0.2ML injection Inject 1 mg under the skin Once as needed for low blood sugar. Prn for emergency hydroxychloroquine (Plaquenil) 200 MG tablet Take 2 tablets (400 mg) by mouth daily. 180 tablet 0 Insulin Lispro (Humalog) 100 UNIT/ML solution injection Inject 5 Units under the skin. Sliding scale losartan (Cozaar) 100 MG tablet Take 0.5 tablets by mouth in the morning. montelukast (Singulair) 10 MG tablet Take 1 tablet by mouth Nightly. omeprazole (PriLOSEC) [address] capsule Take 1 capsule by mouth every morning (before breakfast). pramipexole (Mirapex) 0.5 MG tablet Take 0.5 mg by mouth in the (more content not included)... [facility] 12-11-2024 36 Pt skd for eye exam 01/28/25 Refilled 90 days + 0 refills [facility] 12-07-2024 29 Addended by: Anabel CARABALLO on: 12/07/2024 04:40 PM Modules accepted: Orders [facility] 12-07-2024 36 Medication: hcq 200m g 2 tab qd Refills: 06/13/24 180 + 1 lucita LARA: 06/13/24 lucita/ improved symptoms on current Orencia Plaquenil methotrexate. She will continue current medications at the same doses, continue yearly eye exams for Plaquenil toxicity screens. Continue clinical lab ongoing 4 to 6 months NOV: 12/26/24 Labs: 12/05/24 cbc Eye exam: 06/01/23 under media Called [facility], requested most recent hcq eye exam be faxed to [phone]. They have not seen pt x 06/01/23. No eye exam x 1 year on file, [employer] message sent to pt requesting eye doctor name and phone number. Refused/ awaiting 2024 eye doctor info Normal [facility] 36 Medication: methotre xate 2.5mg 7 tab qwk Refills: 06/13/24 84 + 1 [place] Medication: folic acid 1mg 3 tab qd Refills: 10/12/24 84 + 1 lucita LARA: 06/13/24 lucita/ improved symptoms on current Orencia Plaquenil methotrexate. She will continue current medications at the same doses, continue yearly eye exams for Plaquenil toxicity screens. Continue clinical lab ongoing 4 to 6 months NOV: 12/26/24 Labs: 12/05/24 under media Refilled 90 days + 1 refill folic acid Pended 90 days + 0 refills of methotrexate Normal [facility] 36 Medication: hcq 200m g 2 tab qd Refills: 06/13/24 180 + 1 [place] Medication: methotrexate 2.5mg 7 tab qwk Refills: 06/13/24 84 + 1 [place] Medication: folic acid 1mg 3 tab qd Refills: 10/12/24 84 + 1 lucita LARA: 06/13/24 lucita/ improved symptoms on current Orencia Plaquenil methotrexate. She will continue current medications at the same doses, continue yearly eye exams for Plaquenil toxicity screens. Continue clinical lab ongoing 4 to 6 months NOV: 12/26/24 Labs: 05/11/24 Eye exam: 06/01/23 under media Called [facility], requested most recent hcq eye exam be faxed to [phone]. They have not seen pt x 06/01/23. No eye exam x 1 year on file, [employer] message sent to pt requesting eye doctor name and phone number. Pt's 6 month medication monitoring labs over due. [employer] message sent to pt. Refused/ awaiting 2024 eye doctor info and labs Normal [facility] CBC panel Auto (Bld)on 12-05 Erythrocyte distribution width (RBC) [Ratio] 15.1 % High 11.5-15.0 [facility] Comment on above: Order Comment: Speci men Type: BLOOD SPECIMENOrdering Facility: [facility] Address: [address] [place] [address] Performed By: #### 5 8410-2 ####[facility] LABIA [id number] [address] STATES OF [facility] Hematocrit (Bld) [Volume fraction] 42.7 % Normal 36.0-46.0 [facility] Comment on above: Order Comment: Speci men Type: BLOOD SPECIMENOrdering Facility: [facility] Address: [address] [place] [address] Performed By: #### 5 8410-2 ####[facility] LABIA [id number] [place] [address] [place] Hemoglobin (Bld) [Mass/Vol] 14.0 g/dL Normal 11.5-15.5 [facility] Comment on above: Order Comment: Speci men Type: BLOOD SPECIMENOrdering Facility: [facility] Address: [address] [place] [address] Performed By: #### 5 8410-2 ####[facility] LABIA [id number] [address] [place] MCH (RBC) [Entitic mass] 29.4 pg Normal 26.0-34.0 [facility] Comment on above: Order Comment: Speci men Type: BLOOD SPECIMENOrdering Facility: [facility] Address: [address] [place] [address] Performed By: #### 5 8410-2 ####[facility] LABIA [id number] [address] [place] MCHC (RBC) [Mass/Vol] 32.8 g/dL Normal 30.5-36.0 [facility] Comment on above: Order Comment: Speci men Type: BLOOD SPECIMENOrdering Facility: [facility] Address: [address] [place], [place] [address] [address] Performed By: #### 5 8410-2 ####[facility] LABIA [id number] [place] [id number] [facility] MCV (RBC) [Entitic vol] 89.7 fL Normal 80.0-100.0 [facility] Comment on above: Order Comment: Speci men Type: BLOOD SPECIMENOrdering Facility: [facility] Address: [address] [place], [place] [address] [address] Performed By: #### 5 8410-2 ####[facility] [id number] [place] [address] [place] Nucleated RBC (Bld) [#/Vol] 10*3/uL Normal <0.01 [facility] Comment on above: Order Comment: Speci men Type: BLOOD SPECIMENOrdering Facility: [facility] Address: [address] [place] [address] [place] [address] Performed By: #### 5 8410-2 ####[facility] [id number] [address] [place] Platelet mean volume (Bld) [Entitic vol] 9.2 fL Normal 9.0-12.7 [facility] Comment on above: Order Comment: Speci men Type: BLOOD SPECIMENOrdering Facility: [facility] Address: [address] [place], [place] [address] [address] Performed By: #### 5 8410-2 ####[facility] [id number] [place] [id number] [place] Platelets (Bld) [#/Vol] 542 10*3/uL High 150-400 [facility] Comment on above: Order Comment: Speci men Type: BLOOD SPECIMENOrdering Facility: [facility] Address: [address] [place], [place] [address] [address] Performed By: #### 5 8410-2 ####[facility] LABCLIA [id number] [address] [address] [place] RBC (Bld) [#/Vol] 4.76 10*6/uL Normal 3.90-5.20 [facility] Comment on above: Order Comment: Speci men Type: BLOOD SPECIMENOrdering Facility: [facility] Address: [address] [place] [address] Performed By: #### 5 8410-2 ####[facility] LABCLIA [id number] [address] [address] [place] WBC (Bld) [#/Vol] 12.06 10*3/uL High 3.70-11.00 [facility] Comment on above: Order Comment: Speci men Type: BLOOD SPECIMENOrdering Facility: [facility] Address: [address] [place] [address] Performed By: #### 5 8410-2 ####[facility] LABCLIA [id number] [place] [id number] [place] CRP SerPl-mCncon 12-05-2024 CRP [Mass/Vol] 0.4 mg/dL Normal <0.9 [facility] Comment on above: Order Comment: Speci men Type: BLOOD SPECIMEN Ordering Facility: [facility] ([facility]) Address: [address] [place] [address] Performed By: #### 2 43238, 1987-07 #### [facility] CLIA [id number] [address] [place] [address] [place] Comprehensive metabolic 2000 panelon 12-05-2024 Albumin [Mass/Vol] 3.9 g/dL Normal 3.9-4.9 [facility] Comment on above: Order Comment: Speci men Type: BLOOD SPECIMEN Ordering Facility: [facility] ([facility]) Address: [address] [place] [address] Performed By: #### 2 43238, 1987-07 #### [facility] CLIA [id number] [address] [place] [address] [place] ALP [Catalytic activity/Vol] 80 U/L Normal 34-123 [facility] Comment on above: Order Comment: Speci men Type: BLOOD SPECIMEN Ordering Facility: [facility] ([facility]) Address: [address] [place] [address] Performed By: #### 2 43206-02, 1987-07 #### [facility] CLIA [id number] [address] [place] [address] [place] ALT [Catalytic activity/Vol] 17 U/L Normal 7-38 [facility] Comment on above: Order Comment: Speci men Type: BLOOD SPECIMEN [facility] Facility: [facility]) Address: [address] [place] [address] Performed By: #### 2 4322-10, 1987-07 #### [facility] CLIA [id number] [address] [place] [address] [place] Anion gap [Moles/Vol] 15 mmol/L Normal 8-15 [facility] Comment on above: Order Comment: Speci men Type: BLOOD SPECIMEN Ordering Facility: [facility] ([facility]) Address: [address] [place] [address] Performed By: #### 2 4322-10, 1987-07 #### [facility] CLIA [id number] [address] [place] AST [Catalytic activity/Vol] 20 U/L Normal 13-35 [facility] Comment on above: Order Comment: Speci men Type: BLOOD SPECIMEN Ordering Facility: [facility] ([facility]) Address: [address] [place] [address] Performed By: #### 2 4322-10, 1987-07 #### [facility] CLIA [id number] [address] [place] Bilirubin [Mass/Vol] mg/dL Low 0.2-1.3 [facility] Comment on above: Order Comment: Speci men Type: BLOOD SPECIMEN Ordering Facility: [facility] ([facility]) Address: [address] [place] [address] Performed By: #### 2 4322-10, 1987-07 #### [facility] CLIA [id number] [address] [place] [address] [place] Calcium [Mass/Vol] 10.3 mg/dL High 8.5-10.2 [facility] Comment on above: Order Comment: Speci men Type: BLOOD SPECIMEN [facility] Facility: [facility]) Address: [address] [place] [address] Performed By: #### 2 4322-10, 1987-07 #### [facility] CLIA [id number] [address] [place] [address] [place] Chloride [Moles/Vol] 104 mmol/L Normal 98-107 [facility] Comment on above: Order Comment: Speci men Type: BLOOD SPECIMEN [facility]: [facility]) [facility]: [address] [facility] [place] [address] Performed By: #### 2 4322-10, 1987-07 #### [facility] CLIA [id number] [address] [place] [address] [place] CO2 [Moles/Vol] 20 mmol/L Low 22-30 [facility] Comment on above: Order Comment: Speci men Type: BLOOD SPECIMEN Ordering Facility: [facility] ([facility]) Address: [address] [place] [address] Performed By: #### 2 4322-10, 1987-07 #### [facility] CLIA [id number] [address] [place] [address] [place] Creatinine [Mass/Vol] 0.85 mg/dL Normal 0.58-0.96 [facility] Comment on above: Order Comment: Speci men Type: BLOOD SPECIMEN [facility]ing Facility: [facility] ([facility]) Address: [address] [place] [address] Performed By: #### 2 4322-10, 1987-07 #### [facility] CLIA [id number] [address] [place] [address] [place] eGFRcr SerPlBld CKD-EPI 2020 81 mL/min/1.73m??? Normal >=60 [facility] Comment on above: Order Comment: Cherry carter Type: BLOOD SPECIMEN Ordering Facility: [facility]) Address: [address] [place] [address] Result Comment: Linda mated Glomerular Filtration Rate (eGFR) is calculated using the 2020 CKD-EPI creatinine equation. This equation utilizes serum creatinine, sex, and age as parameters. The creatinine assay has traceable calibration to isotope dilution-mass spectrometry. Refer to KDIGO guidelines for clinical interpretation. In patients with unstable renal function, e.g. those with acute kidney injury, the eGFR may not accurately reflect actual GFR. Performed By: #### 2 4328, 1987-07 #### [employer] [facility] CLIA [id number] [address] [place] [address] [place] Glucose [Mass/Vol] 132 mg/dL High 74-99 [facility] Comment on above: Order Comment: Cherry carter Type: BLOOD SPECIMEN Ordering Facility: [facility]) Address: [address] [place] [address] Result Comment: The [place] Diabetes Association (ADA) provides guidance for cutoff values for fasting glucose and random glucose. The ADA defines fasting as no caloric intake for at least 8 hours. Fasting plasma glucose results between 100 to 125 [...] Standards of Medical Care in Diabetes 2016, [place] [employer] Association. Diabetes Care. 2016.39(Suppl 1). Performed By: #### 2 4323, 1987-07 #### [facility] CLIA [id number] [address] [place] [address] [place] Potassium [Moles/Vol] 4.4 mmol/L Normal 3.7-5.1 [facility] Comment on above: Order Comment: Speci men Type: BLOOD SPECIMEN Ordering Facility: [facility] ([facility]) Address: [address] [place] [address] Performed By: #### 2 4323-8, 1987-07 #### [facility] CLIA [id number] [address] [place] Protein [Mass/Vol] 6.5 g/dL Normal 6.3-8.0 [facility] Comment on above: Order Comment: Speci men Type: BLOOD SPECIMEN Ordering Facility: [facility] ([facility]) Address: [address] [place], [place] [address] [address] Performed By: #### 2 4323-8, 1987-07 #### [facility] CLIA [id number] [address] [place] Sodium [Moles/Vol] 139 mmol/L Normal 136-144 [facility] Comment on above: Order Comment: Speci men Type: BLOOD SPECIMEN Ordering Facility: [facility] ([facility]) Address: [address] [place] [address] Performed By: #### 2 43238, 1987-07 #### [facility] CLIA [id number] [address] [place] Urea nitrogen [Mass/Vol] 13 mg/dL Normal 7-21 [facility] Comment on above: Order Comment: Speci men Type: BLOOD SPECIMEN Ordering Facility: [facility] ([facility]) Address: [address] [place] [address] [place] [address] Performed By: #### 2 43238, 1987-07 #### [facility] CLIA [id number] [address] [place] 36on 11-29-2024 36 Medication: orencia 125mg/ml qwk Refills: 06/13/24 4ml + 5 lucita LARA: 06/13/24 lucita/ improved symptoms on current Orencia Plaquenil methotrexate. She will continue current medications at the same doses, continue yearly eye exams for Plaquenil toxicity screens. Continue clinical lab ongoing 4 to 6 months NOV: 12/26/24 Labs: 05/11/24 Pt's 10/26/24 medication monitoring labs over due. [employer] message sent to pt. Refused/ awaiting lab results Lab: 12/05/24 under media Pended 30 days + 0 refills to next appt Normal [facility] Bedside Glucoseon 10-19-2024 FINGERSTICK GLU 235 mg/dL High 74-106 [facility] Comment on above: Result Comment: VICTORINO STARK OF PATIENT CARE PER NURSING PROTOCOL Performed By: #### L 501.080 #### [facility] [address] [place], [address] Absolute lymphocyte countOrd ered By: Lorenzo Vizcarra on 10-18-2024 Lymphocytes Auto (Unsp spec) [#/Vol] 2.06 10*3/uL 0.83-4.51 [facility] Absolute neutrophil countOrd ered By: Lorenzo Vizcarra on 10-18-2024 Neutrophils (Bld) [#/Vol] 5.3 10*3/uL 2.0-7.7 [facility] Anion gap in Serum or Plasma Ordered By: Lorenzo Vizcarra on 10-18-2024 Anion gap [Moles/Vol] 13 mmol/L 5- [facility] Automated lymphocyte count a s percentage of total leukocytesOrdered By: Lorenzo Vizcarra on 10-18-2024 Lymphocytes/100 WBC Auto (Unsp spec) 25.0 % - [facility] BUN/creatinine ratioOrdered By: Lorenzo Vizcarra on 10-18-2024 Urea nitrogen/Creatinine [Mass ratio] 15.9 mg/mg - [facility] Basic Metabolic Profile (BMP )on 10-18-2024 BUN/CRE 15.9 RATIO Normal - [facility] Comment on above: Performed By: #### L 500.2500, L100.0100 #### [facility] [address] [place], [address] Calcium [Mass/Vol] 9.9 mg/dL Normal 7.6-11.0 [facility] Comment on above: Performed By: #### L 500.2500, L100.0100 #### [facility] [address] [place], [address] Chloride [Moles/Vol] 99 mmol/L Normal 98-108 [facility] Comment on above: Performed By: #### L 500.2500, L100.0100 #### [facility] [facility] [address] [place], [address] CO2 [Moles/Vol] 20.3 mmol/L Low 21.0-32.0 [facility] Comment on above: Performed By: #### L 500.2500, L100.0100 #### [facility] [address] [place], [address] Creatinine [Mass/Vol] 0.82 mg/dL Normal 0.70-1.20 [facility] Comment on above: Performed By: #### L 500.2500, L100.0100 #### [facility] [address] [place], [address] ECRCL 83.99 ml/min Normal 50-250 [facility] Comment on above: Performed By: #### L 500.2500, L100.0100 #### [facility] [address] [place], [address] GAP 13 Normal 5-15 [facility] Comment on above: Performed By: #### L 500.2500, L100.0100 #### [facility] [address] [place], [address] GFR/1.73 sq M.predicted among non-blacks MDRD (S/P/Bld) [Vol rate/Area] 84 mL/min/{1.73_m2} Normal >60 [facility] Comment on above: Result Comment: mL/m in/1.73m2 CKD-EPI Creatinine Equation (2020) Performed By: #### L 500.2500, L100.0100 #### [facility] [address] [place], [address] Glucose [Mass/Vol] 425 mg/dL High 70-99 [facility] Comment on above: Performed By: #### L 500.2500, L100.0100 #### [facility] [address] [place], [address] Potassium [Moles/Vol] 4.2 mmol/L Normal 3.3-5.1 [facility] Comment on above: Performed By: #### L 500.2500, L100.0100 #### [facility] [address] [place], [address] Sodium [Moles/Vol] 133 mmol/L Normal 133-145 [facility] Comment on above: Performed By: #### L 500.2500, L100.0100 #### [facility] [address] [place], [address] Urea nitrogen [Mass/Vol] 13 mg/dL Normal 4-19 [facility] Comment on above: Performed By: #### L 500.2500, L100.0100 #### [facility] [address] [place], [address] Basophil percentageOrdered B y: Lorenzo Vizcarra on 10-18-2024 Basophils/100 WBC (Bld) 0.9 % 0-1 [facility] Bedside Glucoseon 10-18-2024 FINGERSTICK GLU 395 mg/dL High 74-106 [facility] Comment on above: Result Comment: VICTORINO STARK OF PATIENT CARE PER NURSING PROTOCOL Performed By: #### L 501.080 #### [facility] [address] [place], [address] Beta-Hydroxbytyrateon 2024 BETA-HYDROXYBUT 0.0 mmol/L Normal 0.0-0.3 [facility] Comment on above: Performed By: #### L 501.6901 #### [facility] [address] [place], [address] Beta-hydroxybutyrateOrdered By: Lorenzo Vizcarra on 10-18-2024 Beta hydroxybutyrate [Mass/Vol] 0.0 mmol/L 0.0-0.3 [facility] Bilirubin Test strip Ql (U)O rdered By: Lorenzo Vizcarra on 10-18-2024 Bilirubin Ql (U) Negative Negative [facility] CBC W/Diff, Automatedon 09-26 Absolute Lymph 2.06 X10 3/uL Normal 0.83-4.51 [facility] Comment on above: Performed By: #### L 500.2500, L100.0100 #### [facility] [address] [place], [address] Absolute Neut 5.3 X10 3/uL Normal 2.0-7.7 [facility] Comment on above: Performed By: #### L 500.2500, L100.0100 #### [facility] [address] [place], [address] Basophils/100 WBC (Bld) 0.9 % Normal 0-1 [facility] Comment on above: Performed By: #### L 500.2500, L100.0100 #### [facility] [address] [place], [address] Eosinophils/100 WBC (Bld) 2.4 % Normal 0-5 [facility] Comment on above: Performed By: #### L 500.2500, L100.0100 #### [facility] [address] [place], [address] Erythrocyte distribution width (RBC) [Ratio] 14.6 % Normal 11.6-14.6 [facility] Comment on above: Performed By: #### L 500.2500, L100.0100 #### [facility] [address] [place], [address] Hematocrit (Bld) [Volume fraction] 41.5 % Normal 37-47 [facility] Comment on above: Performed By: #### L 500.2500, L100.0100 #### [facility] [address] [place], [address] Hemoglobin (Bld) [Mass/Vol] 14.1 g/dL Normal 12.0-15.0 [facility] Comment on above: Performed By: #### L 500.2500, L100.0100 #### [facility] [address] [place], [address] IG% 0.600 Normal 0.0-0.9 [facility] Comment on above: Result Comment: IG% - Immature Granulocytes (promyelocytes, myelocytes and metamyelocytes) > 1% indicates that a LEFT SHIFT is Present. Performed By: #### L 500.2500, L100.0100 #### [facility] [address] [place], [address] Lymphocytes/100 WBC (Bld) 25.0 % Normal 19-41 [facility] Comment on above: Performed By: #### L 500.2500, L100.0100 #### [facility] [address] [place], [address] MCH (RBC) [Entitic mass] 29.7 pg Normal 27.0-32.0 [facility] Comment on above: Performed By: #### L 500.2500, L100.0100 #### [facility] [address] [place], [address] MCHC (RBC) [Mass/Vol] 34.0 g/dL Normal 32-36 [facility] Comment on above: Performed By: #### L 500.2500, L100.0100 #### [facility] [address] [place], [address] MCV (RBC) [Entitic vol] 87.4 fL Normal 81-99 [facility] Comment on above: Performed By: #### L 500.2500, L100.0100 #### [facility] [address] [place], [address] Monocytes/100 WBC (Bld) 6.4 % Normal 0-10 [facility] Comment on above: Performed By: #### L 500.2500, L100.0100 #### [facility] [address] [place], [address] Neutrophils/100 WBC (Bld) 64.7 % Normal 47-70 [facility] Comment on above: Performed By: #### L 500.2500, L100.0100 #### [facility] [address] [place], [address] Nucleated RBC (Bld) [#/Vol] 0 10*3/uL Normal 0-5 [facility] Comment on above: Performed By: #### L 500.2500, L100.0100 #### [facility] [address] [place], [address] Platelet mean volume (Bld) [Entitic vol] 8.8 fL Normal 6.2-12.0 [facility] Comment on above: Performed By: #### L 500.2500, L100.0100 #### [facility] [address] [place], [address] Platelets (Bld) [#/Vol] 489 10*3/uL High 150-450 [facility] Comment on above: Performed By: #### L 500.2500, L100.0100 #### [facility] [address] [place], [address] RBC (Bld) [#/Vol] 4.75 10*6/uL Normal 4.2-5.4 [facility] Comment on above: Performed By: #### L 500.2500, L100.0100 #### [facility] [address] [place], [address] RDW SD 46.1 fl High 35.1-43.9 [facility] Comment on above: Performed By: #### L 500.2500, L100.0100 #### [facility] [address] [place], [address] WBC (Bld) [#/Vol] 8.2 10*3/uL Normal 4.4-11.0 [facility] Comment on above: Performed By: #### L 500.2500, L100.0100 #### [facility] [address] [place], [address] Carbon dioxide, total [Moles /volume] in Central venous bloodOrdered By: Lorenzo Vizcarra on 10-18-2024 CO2 [Moles/Vol] 20.3 mmol/L Low 21.0-32.0 [facility] Chloride assayOrdered By: Vignesh Vizcarra on 10-18-2024 Chloride [Moles/Vol] 99 mmol/L 98-108 [facility] Summary on 10-18-2024 Emergency Department Summary [facility] Medical Records Department [address] [place] [address] Emergency Department Summary 10/18/24 MR#: [id number] Acct: [id number] Name: JAROD RODARTE Rep #: [id number] : 1970 54 From: Lorenzo Jackson PCP: Dr. Melyssa Mobley MD Status:DEP ER Location: ED HPI History of Present Illness Chief Complaint: Hyperglycemia Informant: patient Narrative Narrative: Presents to the ED for evaluation in elevated glucose more night over the last 2 days. Diabetic for the last 16 years. She was previously on oral medicines and insulin managed by primary care doctor. She started seeing a new endocrinology team this past August. There is plans for an insulin pump in the next week. She was taken off her oral medicines. She was continued on her long-acting and short acting insulin. She is on 60 units in the morning and at night. She is on 25 units short acting before meals in addition to sliding scale insulin. Sugars typically in the 200s. She states yesterday 4 hours after eating it was 400s. This morning she woke up and was in the 160s. She did not eat throughout the day only drank coffee. She states it was 250 at 4 PM she took her 25 units of insulin. 5 PM when she ate she took her long-acting of 60 units. This was 5 hours ago. Prior to arrival report her Dexcom readings read too high. She has urine frequency. Mild nonproductive cough. No vomiting no diarrhea. No nausea symptoms. Prior similar symptoms: Yes PFSH [facility] Medical History RLS (restless legs syndrome) IBS (irritable bowel syndrome) Depression with anxiety Hyperlipidemia Essential (primary) hypertension SVT (supraventricular tachycardia) 1st degree AV block Pre-syncope Palpitations Fibromyalgia Poisoning by insulin and oral hypoglycemic [antidiabetic] drugs, accidental (unintentional), initial encounter Raynaud disease DM2 (diabetes mellitus, type 2) Hay fever Diabetes Kidney disease Hypertension Home Medications ???Medication ???Instructions ???Recorded ???Last Taken ???Type atenolol 25 mg tablet 50 mg PO DAILY BP 05/01/13 0 18:00 History losartan 50 mg tablet 50 mg PO DAILY BP 05/01/13 0 18:00 History montelukast 10 mg tablet 10 mg PO DAILY breathing 05/01/13 01/10/20 08:00 History fenofibrate nanocrystallized 145 145 mg PO DAILY 30 days ##30 04/1401/10/20 18:00 History mg tablet amlodipine 5 mg tablet 5 mg PO DAILY BP 04/15/18 01/10/20 18:00 History aspirin 81 mg chewable tablet 81 mg PO DAILY@0800 heart health 0 04/15/18 01/10/20 18:00 History atorvastatin 20 mg tablet 20 mg PO DAILY cholesterol 9 01/10/20 18:00 History venlafaxine 150 mg 150 mg PO DAILY anx/dep 04/15/18 1 18:00 History capsule,extended release 24 hr pramipexole 0.5 mg tablet 0.5 mg PO QHS restless legs 01/10/20 20:00 History abatacept 125 mg/mL subcutaneous 125 mg subcut QWEEK 03/16/24 Unkno wn History syringe (Orencia) celecoxib 200 mg capsule 200 mg PO QDAY 03/16/24 Unknown Hi story famotidine 20 mg tablet 20 mg PO QDAY 03/16/24 Unknown His tory ferrous sulfate 325 mg (65 mg 325 mg PO .QOD 03/16/24 Unknown Hi story iron) tablet (FeroSul) folic acid 1 mg tablet 1 mg PO DAILY 03/16/24 Unknown His tory gabapentin 300 mg capsule 100 mg PO .COMPLEX nerve pain 02/26 Unknown History hydroxychloroquine 200 mg tablet 200 mg PO BID 03/16/24 Unknown His tory insulin glargine U-300 conc 300 60 unit subcut BID 03/16/24 Unknow n History unit/mL (3 mL) subcutaneous pen (Toujeo Max U-300 SoloStar) omeprazole 40 mg capsule,delayed 40 mg PO QDAY 03/16/24 Unknown His tory release pramipexole 0.125 mg tablet 0.125 mg PO QDAY PRN RLS 03/16/24 Unknown History venlafaxine 75 mg capsule,extended 75 mg PO QDAY 03/16/24 Unknown H istory release 24 hr blood sugar diagnostic ([employer]uch #10 ea 08/31/24 Unknown History Ultra Test strips) blood-glucose sensor (Dexcom G6 #1 ea 08/31/24 Unknown History Sensor device) blood-glucose transmitter (Dexcom #1 ea 08/31/24 Unknown History G6 Transmitter device) diclofenac sodium 1 % topical gel topical 4XD 08/31/24 Unknown Hist ory lancets 33 gauge (Social Shopping NetworkTouch Delica #100 ea 08/31/24 Unknown History Plus Lancet) methotrexate sodium 2.5 mg tablet 2.5 mg PO WE 08/31/24 Unknown His tory pen needle, diabetic 31 gauge x #1,200 ea 08/31/24 Unknown History 3/16 (Easy Touch) insulin lispro 100 unit/mL 25 unit subcut TID 09/24/24 Unknow n History subcutaneous pen insulin pump cart,auto,BT,G6/7 #15 ea 09/24/24 Unknown Rx (Omnipod 5 G6-G7 Pods (Gen 5) subcutaneous cartridge) insulin pump cartridge,auto #1 ea 09/24/24 Unknown Rx dose,BT,G6/G7 with controller subcutaneous (Omnipod 5 G6-G7 (more content not included)... Normal [facility] Eosinophil percentageOrdered By: Lorenzo Vizcarra on 10-18-2024 Eosinophils/100 WBC (Bld) 2.4 % 0-5 [facility] Erythrocyte distribution wid th ratioOrdered By: Lorenzo Vizcarra on 10-18-2024 Erythrocyte distribution width (RBC) [Ratio] 14.6 % 11.6-14.6 [facility] Erythrocyte distribution wid th standard deviationOrdered By: Lorenzo Vizcarra on 10-18-2024 Erythrocyte distribution width (RBC) [Ratio] 46.1 fl High 35.1-43.9 [facility] Glomerular filtration rate ( GFR) estimation/1.73 sq m using serum, plasma, or whole bOrdered By: Lorenzo Vizcarra on 10-18-2024 GFR/1.73 sq M.predicted among non-blacks MDRD (S/P/Bld) [Vol rate/Area] 84 mL/min/{1.73_m2} >60 [facility] Comment on above: mL/min/1.73m2 CKD-EP I Creatinine Equation (2020) [facility] deOrdered By: Lorenzo Vizcarra on 10-18-2024 Glucose [Mass/Vol] 395 mg/dL High 74-106 [facility] Comment on above: MANAGEMENT OF PATIEN T CARE PER NURSING PROTOCOL Hematocrit Auto (Bld) [Volum e fraction]Ordered By: Lorenzo Vizcarra on 10-18-2024 Hematocrit (Bld) [Volume fraction] 41.5 % 37-47 [facility] Hemoglobin measurementOrdere d By: Lorenzo Vizcarra on 10-18-2024 Hemoglobin (Bld) [Mass/Vol] 14.1 g/dL 12.0-15.0 [facility] Immature granulocytes/100 WB C Auto (Bld)Ordered By: Lorenzo Vizcarra on 10-18-2024 Immature granulocytes/100 WBC (Bld) 0.600 % 0.0-0.9 [facility] Comment on above: IG% - Immature Granu locytes (promyelocytes, myelocytes and metamyelocytes) > 1% indicates that a LEFT SHIFT is Present. Ketones Test strip Ql (U)Ord ered By: Lorenzo Vizcarra on 10-18-2024 Ketones Ql (U) Negative Negative [facility] MCV (mean corpuscular volume ) determinationOrdered By: Lorenzo Vizcarra on 10-18-2024 MCV (RBC) [Entitic vol] 87.4 fL 81-99 [facility] Mean corpuscular hemoglobin (MCH) determinationOrdered By: Lorenzo Vizcarra on 10-18-2024 MCH (RBC) [Entitic mass] 29.7 pg 27.0-32.0 [facility] Mean corpuscular hemoglobin concentration (MCHC) determinationOrdered By: Lorenzo Vizcarra on 10-18-2024 MCHC (RBC) [Mass/Vol] 34.0 g/dL 32-36 [facility] Mean platelet volume determi nationOrdered By: Lorenzo Vizcarra on 10-18-2024 Platelet mean volume (Bld) [Entitic vol] 8.8 fL 6.2-12.0 [facility] Microscopic analysis of urin e for red blood cells (RBC)Ordered By: Lorenzo Vizcarra on 10-18-2024 Microscopic analysis of urine for red blood cells (RBC) 0-5 SEEN /hpf 0-5 [facility] Monocyte percentageOrdered B y: Lorenzo Vizcarra on 10-18-2024 Monocytes/100 WBC (Bld) 6.4 % 0-10 [facility] Mucus LM Ql (Urine sed)Order ed By: Lorenzo Vizcarra on 10-18-2024 Mucus Ql (Urine sed) 2+ /hpf [facility] Neutrophil percentageOrdered By: Lorenzo Vizcarra on 10-18-2024 Neutrophils/100 WBC (Bld) 64.7 % 47-70 [facility] Nitrite Test strip Ql (U)Ord ered By: Lorenzo Vizcarra on 10-18-2024 Nitrite Ql (U) Negative Negative [facility] Nucleated red blood cell per centageOrdered By: Lorenzo Vizcarra on 10-18-2024 Nucleated RBC/100 WBC (Bld) [Ratio] 0 % 0-5 [facility] Platelet countOrdered By: Vignesh Vizcarra on 10-18-2024 Platelets (Bld) [#/Vol] 489 10*3/uL High 150-450 [facility] Potassium measurement (mass/ volume)Ordered By: Lorenzo Vizcarra on 10-18-2024 Potassium (Unsp spec) [Mass/Vol] 4.2 mmol/L 3.3-5.1 [facility] Protein Test strip Ql (U)Ord ered By: Lorenzo Vizcarra on 10-18-2024 Protein Ql (U) 100 mg/dl High Negative [facility] RBC Auto (Bld) [#/Vol]Ordere d By: Lorenzo Vizcarra on 10-18-2024 RBC (Bld) [#/Vol] 4.75 10*6/uL 4.2-5.4 [facility] Serum creatinine measurement (mass/volume)Ordered By: Lorenzo Le on 10-18-2024 Creatinine [Mass/Vol] 0.82 mg/dL 0.70-1.20 [facility] Serum glucose measurement (m ass/volume)Ordered By: Lorenzo Le on 10-18-2024 Glucose [Mass/Vol] 425 mg/dL High 70-99 [facility] Serum or plasma calcium jose urement (mass/volume)Ordered By: Lorenzo Vizcarra on 10-18-2024 Calcium [Mass/Vol] 9.9 mg/dL 7.6-11.0 [facility] Serum or plasma urea nitroge n measurement (mass/volume)Ordered By: Lorenzo Vizcarra on 10-18-2024 Urea nitrogen [Mass/Vol] 13 mg/dL 4-19 [facility] Sodium levelOrdered By: Lorenzo Carmita on 10-18-2024 Sodium [Moles/Vol] 133 mmol/L 133-145 [facility] Squamous epithelial cells de tection in urine sediment by light microscopyOrdered By: Lorenzo Le on 10-18-2024 Epithelial cells.squamous LM Ql (Urine sed) 0-5 SEEN /hpf 5-10 [facility] Urinalysis, Completeon 10-18 BACTERIA 1+ /hpf Normal None Seen [facility] Comment on above: Order Comment: CLEAN CATCH Performed By: #### L 400.0001 #### [facility] [address] [place], [place], [id number] Mucus Ql (Urine sed) 2+ /hpf Normal [facility] Comment on above: Order Comment: CLEAN CATCH Performed By: #### L 400.0001 #### [facility] [address] [place], [place], [id number] EPI,SQUAMOUS 0-5 SEEN Normal 5-10 [facility] Comment on above: Order Comment: CLEAN CATCH Performed By: #### L 400.0001 #### [facility] [address] [place], [place], [id number] RBC 0-5 SEEN Normal 0-5 [facility] Comment on above: Order Comment: CLEAN CATCH Performed By: #### L 400.0001 #### [facility] [address] [place], [place], [id number] WBC 0-5 SEEN Normal 0-5 [facility] Comment on above: Order Comment: CLEAN CATCH Performed By: #### L 400.0001 #### [facility] [address] [place], [place], [phone] Urine clarityOrdered By: Alvaro Vizcarra on 10-18-2024 Clarity (U) Clear Clear [facility] Urine color determinationOrd ered By: Lorenzo Vizcarra on 10-18-2024 Color (U) Straw Yellow [facility] Urine glucose detectionOrder ed By: Lorenzo Vizcarra on 10-18-2024 Glucose Ql (U) 1000 mg/dl High Normal [facility] Urine leukocyte esterase det ection by dipstickOrdered By: Lorenzo Vizcarra on 10-18-2024 Leukocyte esterase Test strip Ql (U) Negative Negative [facility] Urine pHOrdered By: Lorenzo Vizcarra on 10-18-2024 pH (U) 6.0 [pH] 5.0 - 8.0 [facility] Urine sediment bacteria coun t by microscopy (number/high power field)Ordered By: Lorenzo Vizcarra on 10-18-2024 Bacteria LM.HPF (Urine sed) [#/Area] 1 /[HPF] None Seen [facility] Urine specific gravity measu rementOrdered By: Lorenzo Vizcarra on 10-18-2024 Specific gravity (U) [Rel density] 1.015 1.002-1.030 [facility] Urine urobilinogen measureme ntOrdered By: Lorenzo Vizcarra on 10-18-2024 Urobilinogen Ql (U) Normal mg/dl Normal [facility] White blood cell (WBC) count Ordered By: Lorenzo Vizcarra on 10-18-2024 WBC (Bld) [#/Vol] 8.2 10*3/uL 4.4-11.0 [facility] White blood cell countOrdere d By: Lorenzo Vizcarra on 10-18-2024 White blood cell count 0-5 SEEN /hpf 0-5 [facility] CNOVon 10-10-2024 CNOV Office Visit (INTMWS ) JAROD RODARTE ([id number]) 1970 F Date Time Provider Department 10/10/24 12:40 PM GLEA MEDINA INTLINDA During your visit today, we recorded the following information about you: Pulse Respiration Blood pressure Weight 76/minute 16/minute 132/80 89.8 kg Gela Medina APRN.CNP 10/10/2024 2:51 PM Signed CC: Patient presents with: Recheck: 6 week follow up HPI Jarod Mahajan Aayush is a 53 year old female who presents today for follow up on increased fatigue. Blood work unremarkable. Recording using [employer] software for draft documentation of the visit was discussed with the patient/authorized associate financial representative; all questions welcomed and answered. Patient/authorized associate financial representative agreed to proceed Fatigue: - Jarod reports back to her baseline of chronic tiredness. Found an error attributed to a her pharmacy. - Pharmacy reportedly switched the timing of her medications, leading to increased daytime somnolence and poor nocturnal sleep. Once she realized this and medications were switched to appropriate times this has began to improve. 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 Avalos. - Approved for insulin pump therapy; awaiting training. - Discontinued Metformin as per primary grade teacher's recommendation. - Jarod reports an episode of hyperglycemia (blood glucose >300 mg/dL) last night due to missed insulin dose. 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 - Current smoker; primary grade teacher mentioned this could affect A1c readings. REVIEW OF SYSTEMS General: no fevers, no chills, no recurrent infections, and no change in appetite Respiratory: no cough, no wheezing, no shortness of breath, no hemoptysis Cardiovascular: no chest pain, no chest pressure, no palpitations, and no swelling PAST MEDICAL HISTORY Diagnosis Date De Quervain's tenosynovitis, bilateral Depression with anxiety Diabetes (HCC) Fibromyalgia Hypercholesterolemia Hypertension IBS (irritable bowel syndrome) Raynaud's disease Restless legs syndrome (RLS) PAST SURGICAL HISTORY Procedure Laterality Date CONE OF CERVIX LOOPELEC EXCIS EXTRACTION, ERUPTED TOOTH OR EXPOSED ROOT (ELEVATION AND/OR FORCEPS REMOVAL) [place] teeth x 4 HYSTERECTOMY HX precervical cancer, removed cervix KNEE SURGERY HX 4x right and left x4 ALLERGIES Penicillin G, Requip [Ropinirole], Enbrel [Etanercept], Jardiance [Empagliflozin], and Wellbutrin [Bupropion Hcl] MEDICATIONS venlafaxine ER (EFFEXOR XR) 150 mg 24 hr capsule Take 1 capsule by mouth once daily. pramipexole (MIRAPEX) 0.125 mg tablet take 1 tablet by mouth every afternoon if needed for RESTELESS LEGS pramipexole (MIRAPEX) 0.5 mg tablet Take 1 tablet by mouth daily at bedtime. Blood-Glucose Transmitter ([employer] G6 TRANSMITTER) catracho Change transmitter every 3 months - continuous glucose monitor, multiple insulin injections E-11.9 omeprazole (PRILOSEC) 40 mg capsule Take 1 capsule by mouth once daily. gabapentin (NEURONTIN) 300 mg capsule Take 1 capsule by mouth daily at bedtime for 180 days. gabapentin (NEURONTIN) 100 mg capsule Take 1 capsule by mouth two times a day for 180 days. Take one in AM and one in afternoon. Take the 300mg before bed. insulin glargine U-300 conc (TOUJEO MAX U-300 SOLOSTAR) 300 unit/mL (3 mL) inpn Inject subcutaneously 130 units daily insulin lispro (HUMALOG KWIKPEN INSULIN) 100 unit/mL Inject 25 Units subcutaneously three times a day before meals. Inject 25 units with meals plus SS#2 (2 units for every 50 over 150) (1 units for every 10 grams of carbs). Limit of 100 units daily venlafaxine ER (EFFEXOR XR) 75 mg 24 hr capsule Take 1 capsule by mouth once daily. ferrous sulfate 325 mg (65 mg iron) tablet Take 1 tablet by mouth every other day. atorvastatin (LIPITOR) 40 mg tablet Take 1 tablet by mouth once daily. amLODIPine (NORVASC) 5 mg tablet Take 1 tablet by mouth once daily. atenolol (TENORMIN) 50 mg tablet Take 1 tablet by mouth once daily. fenofibrate nanocrystallized (TRICOR) 145 mg tablet Take 1 tablet by mouth once daily. montelukast (SINGULAIR) 10 mg tablet Take 1 tablet by mouth daily at bedtime. Blood-Glucose Transmitter (DEXCOM G6 TRANSMITTER) catracho 1 Each continuous. folic acid 1 mg tablet Take 3 mg by mouth once daily. hydrOXYchloroQUINE (PLAQUENIL) 200 mg tablet Take 2 tablets by mouth once daily. methotrexate 2.5 mg tablet Take 17.5 mg by mouth every Tuesday. nabumetone (RELAFEN) 750 mg tablet Take 750 mg by mouth two times a day. ORENCIA CLICKJECT 125 mg/mL auto-injector Inject 1 mL subcutaneously one time a week. (Patient not taking: Reported on 02/17/2024) Insulin Bradford, Disposable, (BD ULTRAFINE III MINI PEN) 31 gauge x 3/16 Use with insulin injection 2 times daily Blood-Glucose Sensor (DEXCOM G6 SEN (more content not included)... Normal [facility] Endocrinology Visit Reporton 09-24-2024 Endocrinology Visit Report [facility] [address] [place] [address] OFFICE VISIT Date of Service: 09/24/24 MR#: [id number] Acct: [id number] Name: JAROD RODARTE Rep #: [id number] : 1970 Provider: MARTA edgar Age/Sex: 53/F Location: [place] Status: Signed Intake Vital Signs 04/18/24 10:32 09/24/24 11:11 Height 5 ft 4 in 5 ft 4 in Weight: 195 lb 199 lb BMI 33.5 34.1 BP 115/70 147/87 H Blood Pressure Location Lt brachial Lt brachial Position Sitting Sitting Respiration 16 Pulse 82 77 Pulse Source Monitor Monitor Pulse Oximetry (%) 95 Oxygen Delivery Method room air Intake Visit Reasons: Diabetes Chief Complaint: establish care- diabetes Cipher Expert Required: No Accompanied by: Fiance Is patient in pain?: Yes (Joints) Pain scale (1-10): 5 Allergies empagliflozin (From Jardiance) Allergy (Intermediate, Verified 09/24/24 11:19) yeast infection etanercept (From Enbrel) Allergy (Intermediate, Verified 09/24/24 11:19) Palpitations bupropion (From Wellbutrin) Allergy (Verified 09/24/24 11:19) Hives Penicillins Allergy (Verified 09/24/24 11:19) Swelling ropinirole HCl (From Requip) Allergy (Verified 09/24/24 11:19) seizure Medications ???Medication ???Instructions ???Recorded ???Confirmed ???Type atenolol 25 mg tablet 50 mg PO DAILY BP 05/01/13 5 History losartan 50 mg tablet 50 mg PO DAILY BP 05/01/13 5 History montelukast 10 mg tablet 10 mg PO DAILY breathing 05/01/13 08/31/24 History fenofibrate nanocrystallized 145 145 mg PO DAILY 30 days ##30 04/1408/31/24 History mg tablet amlodipine 5 mg tablet 5 mg PO DAILY BP 04/15/18 08/31/24 History aspirin 81 mg chewable tablet 81 mg PO DAILY@0800 heart health 0 04/15/18 09/24/24 History atorvastatin 20 mg tablet 20 mg PO DAILY cholesterol 9 08/31/24 History venlafaxine 150 mg 150 mg PO DAILY anx/dep 04/15/18 0 08/31/24 History capsule,extended release 24 hr pramipexole 0.5 mg tablet 0.5 mg PO DAILY restless legs 12/2608/31/24 History abatacept 125 mg/mL subcutaneous 125 mg subcut QWEEK 03/16/2409/24 History syringe (Orencia) celecoxib 200 mg capsule 200 mg PO QDAY 03/16/24 08/31/24 H istory famotidine 20 mg tablet 20 mg PO QDAY 03/16/24 08/31/24 Hi story ferrous sulfate 325 mg (65 mg 325 mg PO .QOD 03/16/24 08/31/24 H istory iron) tablet (FeroSul) folic acid 1 mg tablet PO 03/16/24 08/31/24 History gabapentin 300 mg capsule 100 mg PO .COMPLEX nerve pain 02/2625 History hydroxychloroquine 200 mg tablet 200 mg PO BID 03/16/24 08/31/24 Hi story hydroxyzine HCl 25 mg tablet 25 mg PO TID PRN 03/16/24 08/31/24 History insulin glargine U-300 conc 300 112 unit subcut QDAY 03/16/2409/19 History unit/mL (3 mL) subcutaneous pen (Toujeo Max U-300 SoloStar) nabumetone 750 mg tablet 750 mg PO BID 03/16/24 08/31/24 Hi story omeprazole 40 mg capsule,delayed 40 mg PO QDAY 03/16/24 08/31/24 Hi story release pramipexole 0.125 mg tablet 0.125 mg PO QDAY PRN 03/16/2409/19 History venlafaxine 75 mg capsule,extended 75 mg PO QDAY 03/16/24 08/31/24 History release 24 hr blood sugar diagnostic (McGinley Innovationsuch #10 ea 08/31/24 08/31/24 History Ultra Test strips) blood-glucose sensor (Dexcom G6 #1 ea 08/31/24 08/31/24 History Sensor device) blood-glucose transmitter (Dexcom #1 ea 08/31/24 08/31/24 History G6 Transmitter device) diclofenac sodium 1 % topical gel topical 4XD 08/31/24 08/31/24 His tory lancets 33 gauge (Social Shopping NetworkTouch Delica #100 ea 08/31/24 08/31/24 History Plus Lancet) methotrexate sodium 2.5 mg tablet mg PO 08/31/24 08/31/24 History pen needle, diabetic 31 gauge x #1,200 ea 08/31/24 08/31/24 Histor y 3/16 (Easy Touch) insulin lispro 100 unit/mL 25 unit subcut TID 09/24/24 History subcutaneous pen insulin pump cart,auto,BT,G6/7 #15 ea 09/24/24 09/24/24 Rx (Omnipod 5 G6-G7 Pods (Gen 5) subcutaneous cartridge) insulin pump cartridge,auto #1 ea 09/24/24 09/24/24 Rx dose,BT,G6/G7 with controller subcutaneous (Omnipod 5 G6-G7 Intro Kit(Gen 5) subcutaneous cartridge and controller) [facility] Medical History (Updated 09/24/24 @ 13:22 by Love Hastings, CLINICAL PHYSICIAN ASSISTANT-C) RLS (restless legs syndrome) IBS (irritable bowel syndrome) Depression with anxiety Hyperlipidemia Essential (primary) hypertension SVT (supraventricular tachycardia) 1st degree AV block Pre-syncope Palpitations Fibromyalgia Poisoning by insulin and oral hypoglycemic [antidiabetic] drugs, accidental (unintentional), initial encounter Raynaud disease DM2 (diabetes mellitus, type 2) Hay fever Diabetes Kidney disease Hypertension Surgical History (more content not included)... Normal [facility] Laboratory - Hematology and Cell countsOrdered By: Love Hastings on 09-24-2024 HbA1c (Bld) [Mass fraction] 9.5 % High 4.2-6.3 [facility] Basic metabolic 2000 panelon 08-09-2024 Anion gap [Moles/Vol] 12 mmol/L Normal 8-15 [facility] Comment on above: Order Comment: Speci men Type: BLOOD SPECIMENOrdering Facility: [facility] Address: [address] [place] [address] Performed By: #### 2 4321-2, 79006-5, 3016-3, 2275-4 ####[facility] LAB[facility] [id number] [place] [address] [place] Calcium [Mass/Vol] 9.9 mg/dL Normal 8.5-10.2 [facility] Comment on above: Order Comment: Speci men Type: BLOOD SPECIMENOrdering Facility: [facility] Address: [address] [place] [address] Performed By: #### 2 4321-2, 38934-1, 3016-3, 2275-4 ####[facility] LABCLIA [id number] [place] [address] [place] Chloride [Moles/Vol] 103 mmol/L Normal 98-107 [facility] Comment on above: Order Comment: Speci men Type: BLOOD SPECIMENOrdering Facility: [facility] Address: [address] [place] [address] Performed By: #### 2 4321-2, 51096-6, 6-3, 2275-4 ####[facility] LABIA [id number] [place] [id number] [place] CO2 [Moles/Vol] 23 mmol/L Normal 22-30 [facility] Comment on above: Order Comment: Speci men Type: BLOOD SPECIMENOrdering Facility: [facility] Address: [address] [place] [address] Performed By: #### 2 4321-2, 02763-1, 3015-3, 2275-4 ####[facility] [id number] [place] [id number] [place] Creatinine [Mass/Vol] 0.71 mg/dL Normal 0.58-0.96 [facility] Comment on above: Order Comment: Speci men Type: BLOOD SPECIMENOrdering Facility: [facility] Address: [address] [place] [address] Performed By: #### 2 4321-2, 19847-7, 3015-3, 4 ####[facility] [id number] [place] [address] [place] Creatinine and Glomerular filtration rate.predicted panel (S/P/Bld) 101 mL/min/1.73m??? Normal >=60 [facility] Comment on above: Order Comment: Speci men Type: BLOOD SPECIMENOrdering Facility: [facility] Address: [address] [place] [address] Result Comment: Linda mated Glomerular Filtration Rate (eGFR) is calculated using the 2020 CKD-EPI creatinine equation. This equation utilizes serum creatinine, sex, and age as parameters. The creatinine assay has traceable calibration to isotope dilution-mass spectrometry. Refer to KDIGO guidelines for clinical interpretation. In patients with unstable renal function, e.g. those with acute kidney injury, the eGFR may not accurately reflect actual GFR. Performed By: #### 2 4321-2, 19316-2, 3015-3, 2275-4 ####[facility] LABCLIA [id number] [address] [address] [place] Glucose [Mass/Vol] 199 mg/dL High 74-99 [facility] Comment on above: Order Comment: Speci men Type: BLOOD SPECIMENOrdering Facility: [facility] Address: [address] [place] [address] Result Comment: The [place] Diabetes Association (ADA) provides guidance for cutoff values for fasting glucose and random glucose. The ADA defines fasting as no caloric intake for at least 8 hours. Fasting plasma glucose results between 100 to 125 [...] Standards of Medical Care in Diabetes 2016, [place] [employer] Association. Diabetes Care. 2016.39(Suppl 1). Performed By: #### 2 4321-2, 35118-3, 3016-3, 2276-4 ####[facility] LABIA [id number] [place] [id number] [place] Potassium [Moles/Vol] 4.5 mmol/L Normal 3.7-5.1 [facility] Comment on above: Order Comment: Speci men Type: BLOOD SPECIMENOrdering Facility: [facility] Address: [address] [place] [address] Performed By: #### 2 4321-2, 81173-7, 3016-3, 6-4 ####[facility] LABIA [id number] [place] [id number] [place] Sodium [Moles/Vol] 138 mmol/L Normal 136-144 [facility] Comment on above: Order Comment: Speci men Type: BLOOD SPECIMENOrdering Facility: [facility] [place] Address: [address] [place] [address] Performed By: #### 2 4321-2, 68764-2, 3016-3, 6-4 ####[facility] LABCLIA [id number] [place] [address] [place] Urea nitrogen [Mass/Vol] 13 mg/dL Normal 7-21 [facility] Comment on above: Order Comment: Speci men Type: BLOOD SPECIMENOrdering Facility: [facility] Address: [address] [place] [address] Performed By: #### 2 4321-2, 91646-2, 3016-3, 6-4 ####[facility] LABCLIA [id number] [place] [address] [place] CBC W Auto Differential pane l (Bld)on 08-09-2024 Basophils (Bld) [#/Vol] 0.08 10*3/uL [facility] Basophils/100 WBC (Bld) 0.8 % [facility] Differential cell count method Nom (Bld) Auto [facility] Eosinophils (Bld) [#/Vol] 0.13 10*3/uL [facility] Eosinophils/100 WBC (Bld) 1.4 % [facility] Erythrocyte distribution width (RBC) [Ratio] 14.7 % 11.5 - 15.0 % [facility] Hematocrit (Bld) [Volume fraction] 43.5 % 36.0 - 46.0 % [facility] Hemoglobin (Bld) [Mass/Vol] 14.4 g/dL 11.5 - 15.5 g/dL [facility] Immature granulocytes (Bld) [#/Vol] 0.06 10*3/uL [facility] Immature granulocytes/100 WBC (Bld) 0.6 % [facility] Interpretation and review of laboratory results Abnormal [facility] Lymphocytes (Bld) [#/Vol] 1.97 10*3/uL [facility] Lymphocytes/100 WBC (Bld) 20.9 % [facility] MCH (RBC) [Entitic mass] 29.8 pg 26.0 - 34.0 pg [facility] MCHC (RBC) [Mass/Vol] 33.1 g/dL 30.5 - 36.0 g/dL [facility] MCV (RBC) [Entitic vol] 90.1 fL 80.0 - 100.0 fL [facility] Monocytes (Bld) [#/Vol] 0.66 10*3/uL [facility] Monocytes/100 WBC (Bld) 7 % [facility] Neutrophils (Bld) [#/Vol] 6.54 10*3/uL [facility] Neutrophils/100 WBC (Bld) 69.3 % [facility] Nucleated RBC (Bld) [#/Vol] NINF [facility] Nucleated RBC/100 WBC (Bld) [Ratio] 0 % /100 WBC [facility] Platelet mean volume (Bld) [Entitic vol] 9 fL 9.0 - 12.7 fL [facility] Platelets (Bld) [#/Vol] 528 10*3/uL High [facility] RBC (Bld) [#/Vol] 4.83 10*6/uL 3.90 - 5.2 0 m/uL [facility] WBC (Bld) [#/Vol] 9.44 10*3/uL [facility] Basophils (Bld) [#/Vol] 0.08 10*3/uL Normal <0.11 [facility] Comment on above: Order Comment: Speci men Type: BLOOD SPECIMEN Ordering Facility: [facility] Address: [address] [place] [address] Performed By: #### 2 43206-02, 1987-07 #### [facility] CLIA [id number] [address] [place] [address] [place] Basophils/100 WBC (Bld) 0.8 % Normal [facility] Comment on above: Order Comment: Speci men Type: BLOOD SPECIMEN Ordering Facility: [facility] Address: [address] [place] [address] Performed By: #### 2 43206-02, 1987-07 #### [facility] CLIA [id number] [address] [place] [address] [place] Differential cell count method Nom (Bld) Auto Normal [facility] Comment on above: Order Comment: Speci men Type: BLOOD SPECIMEN Ordering Facility: [facility] [address] [address] Performed By: #### 2 4322-10, 1987-07 #### [facility] CLIA [id number] [address] [place] [address] [place] Eosinophils (Bld) [#/Vol] 0.13 10*3/uL Normal <0.46 [facility] Comment on above: Order Comment: Speci men Type: BLOOD SPECIMEN Ordering Facility: [facility] Address: [address] [place], [place] [address] [address] Performed By: #### 2 4322-10, 1987-07 #### [facility] CLIA [id number] [address] [place] [address] [place] Eosinophils/100 WBC (Bld) 1.4 % Normal [facility] Comment on above: Order Comment: Speci men Type: BLOOD SPECIMEN Ordering Facility: [facility] Address: [address] [place] [address] [place] [address] Performed By: #### 2 4322-10, 1987-07 #### [facility] CLIA [id number] [address] [place] [address] [place] Erythrocyte distribution width (RBC) [Ratio] 14.7 % Normal 11.5-15.0 [facility] Comment on above: Order Comment: Speci men Type: BLOOD SPECIMEN Ordering Facility: [facility] Address: [address] [place], [place] [address] [address] Performed By: #### 2 4322-10, 1987-07 #### [facility] CLIA [id number] [address] [place] [address] [place] Hematocrit (Bld) [Volume fraction] 43.5 % Normal 36.0-46.0 [facility] Comment on above: Order Comment: Speci men Type: BLOOD SPECIMEN Ordering Facility: [facility] Address: [address] [place], [place] [address] [address] Performed By: #### 2 4322-10, 1987-07 #### [facility] CLIA [id number] [address] [place] [address] [place] Hemoglobin (Bld) [Mass/Vol] 14.4 g/dL Normal 11.5-15.5 [facility] Comment on above: Order Comment: Speci men Type: BLOOD SPECIMEN Ordering Facility: [facility] Address: [address] [place] [address] Performed By: #### 2 4322-10, 1987-07 #### [facility] CLIA [id number] [address] [place] [address] [place] Immature granulocytes (Bld) [#/Vol] 0.06 10*3/uL Normal <0.10 [facility] Comment on above: Order Comment: Speci men Type: BLOOD SPECIMEN Ordering Facility: [facility] Address: [address] [place] [address] Performed By: #### 2 4322-10, 1987-07 #### [facility] CLIA [id number] [address] [place] [address] [place] Immature granulocytes/100 WBC (Bld) 0.6 % Normal [facility] Comment on above: Order Comment: Speci men Type: BLOOD SPECIMEN Ordering Facility: [facility] Address: [address] [place] [address] Performed By: #### 2 4322-10, 1987-07 #### [facility] CLIA [id number] [address] [place] [address] [place] Lymphocytes (Bld) [#/Vol] 1.97 10*3/uL Normal 1.00-4.00 [facility] Comment on above: Order Comment: Speci men Type: BLOOD SPECIMEN Ordering Facility: [facility] Address: [address] [place] [address] Performed By: #### 2 4322-10, 1987-07 #### [facility] CLIA [id number] [address] [place] [address] [place] Lymphocytes/100 WBC (Bld) 20.9 % Normal [facility] Comment on above: Order Comment: Speci men Type: BLOOD SPECIMEN Ordering Facility: [facility] Address: [address] [place] [address] Performed By: #### 2 4322-10, 1987-07 #### [facility] CLIA [id number] [address] [place] [address] [place] MCH (RBC) [Entitic mass] 29.8 pg Normal 26.0-34.0 [facility] Comment on above: Order Comment: Speci men Type: BLOOD SPECIMEN Ordering Facility: [facility] Address: [address] [place] [address] Performed By: #### 2 4322-10, 1987-07 #### [facility] CLIA [id number] [address] [place] [address] [place] MCHC (RBC) [Mass/Vol] 33.1 g/dL Normal 30.5-36.0 [facility] Comment on above: Order Comment: Speci men Type: BLOOD SPECIMEN Ordering Facility: [facility] Address: [address] [place] [address] Performed By: #### 2 4322-10, 1987-07 #### [facility] CLIA [id number] [address] [place] [address] [place] MCV (RBC) [Entitic vol] 90.1 fL Normal 80.0-100.0 [facility] Comment on above: Order Comment: Speci men Type: BLOOD SPECIMEN Ordering Facility: [facility] Address: [address] [place] [address] Performed By: #### 2 4322-10, 1987-07 #### [facility] CLIA [id number] [address] [place] [address] [place] Monocytes (Bld) [#/Vol] 0.66 10*3/uL Normal <0.87 [facility] Comment on above: Order Comment: Speci men Type: BLOOD SPECIMEN Ordering Facility: [facility] Address: [address] [place] [address] [address] Performed By: #### 2 4322-10, 1987-07 #### [facility] CLIA [id number] [address] [place] [address] [place] Monocytes/100 WBC (Bld) 7.0 % Normal [facility] Comment on above: Order Comment: Speci men Type: BLOOD SPECIMEN Ordering Facility: [facility] Address: [address] [place], [place] [address] [address] Performed By: #### 2 4322-10, 1987-07 #### [facility] CLIA [id number] [address] [place] [address] [place] Neutrophils (Bld) [#/Vol] 6.54 10*3/uL Normal 1.45-7.50 [facility] Comment on above: Order Comment: Speci men Type: BLOOD SPECIMEN Ordering Facility: [facility] Address: [address] [place], [place] [address] [address] Performed By: #### 2 4322-10, 1987-07 #### [facility] CLIA [id number] [address] [place] [address] [place] Neutrophils/100 WBC (Bld) 69.3 % Normal [facility] Comment on above: Order Comment: Speci men Type: BLOOD SPECIMEN Ordering Facility: [facility] Address: [address] [place], [place] [address] [address] Performed By: #### 2 4322-10, 1987-07 #### [facility] CLIA [id number] [address] [place] [address] [place] Nucleated RBC (Bld) [#/Vol] 10*3/uL Normal <0.01 [facility] Comment on above: Order Comment: Speci men Type: BLOOD SPECIMEN Ordering Facility: [facility] Address: [address] [place] [address] [place] [address] Performed By: #### 2 4322-10, 1987-07 #### [facility] CLIA [id number] [address] [place], [place] [id number] [place] Nucleated RBC/100 WBC (Bld) [Ratio] 0.0 /100 WBC Normal [facility] Comment on above: Order Comment: Speci men Type: BLOOD SPECIMEN Ordering Facility: [facility] Address: [address] [place] [address] Performed By: #### 2 4322-10, 1987-07 #### [facility] CLIA [id number] [address] [place] [address] [place] Platelet mean volume (Bld) [Entitic vol] 9.0 fL Normal 9.0-12.7 [facility] Comment on above: Order Comment: Speci men Type: BLOOD SPECIMEN Ordering Facility: [facility] Address: [address] [place] [address] Performed By: #### 2 43206-02, 1987-07 #### [facility] CLIA [id number] [address] [place] [address] [place] Platelets (Bld) [#/Vol] 528 10*3/uL High 150-400 [facility] Comment on above: Order Comment: Speci men Type: BLOOD SPECIMEN Ordering Facility: [facility] Address: [address] [place] [address] Performed By: #### 2 4322-10, 1987-07 #### [facility] CLIA [id number] [address] [place] [address] [place] RBC (Bld) [#/Vol] 4.83 10*6/uL Normal 3.90-5.20 [facility] Comment on above: Order Comment: Speci men Type: BLOOD SPECIMEN Ordering Facility: [facility] Address: [address] [place] [address] Performed By: #### 2 4322-10, 1987-07 #### [facility] CLIA [id number] [facility] [place] [address] [place] WBC (Bld) [#/Vol] 9.44 10*3/uL Normal 3.70-11.00 [facility] Comment on above: Order Comment: Cherry carter Type: BLOOD SPECIMEN Ordering Facility: [facility] Address: [address] [place] [address] [place] [address] Performed By: #### 2 4323-8, 1987-07 #### [facility] CLIA [id number] [address] [place] [address] STATES OF [facility] CNOVon 08-09-2024 CNOV Office Visit (INTMWS ) JAROD RODARTE ([id number]) 1970 F Date Time Provider Department 08/09/24 11:00 AM GELA MEDINA INTMLAI During your visit today, we recorded the following information about you: Pulse Respiration Blood pressure Weight 72/minute 16/minute 128/82 86.2 kg Gela Medina APRN.AERIAL PHOTOGRAMMETRIST 08/09/2024 3:55 PM Signed CC: Patient presents with: Recheck: 3 month follow up HPI Jarod Rodarte is a 53 year old female who presents today for routine follow up. Recording using The Online 401 software for draft documentation of the visit was discussed with the patient/authorized associate financial representative; all questions welcomed and answered. Patient/authorized associate financial representative agreed to proceed Diabetes Mellitus: - Blood glucose levels described as all over the place. - Average glucose over the last 30 days is 193 mg/dL; over the last 90 days is 189 mg/dL. - Rare episodes of hypoglycemia. - Denies polydipsia, polyphagia, polyuria, or paresthesia beyond baseline. - Taking Toujeo 120 units daily (60 units BID) and Humalog 25 units TID. - Previously on Ozempic, discontinued due to GI side effects. - Taking metformin. - Scheduled to see Dr. Avalos next month to discuss insulin pump. - Reports recurrent yeast infections when blood glucose is elevated, self-treats with Monistat. Fatigue: - Persistent fatigue x1 month. - Uncertain if fatigue is due to blood glucose levels, new bed, or low iron. - Sleep patterns disrupted, waking between 0230 and 0600. Has RLS but feels these symptoms are well controlled with current treatment. - Denies abnormal changes in hair, skin, nails, weight, or recurrent infections. Iron Deficiency: - History of iron deficiency, taking iron supplements. - Noted pica (ice chewing) over the last month. - Taking folic acid for folate deficiency. Rheumatoid Arthritis: - Managed with Orencia, Plaquenil, and methotrexate. - Occasional flares, last flare managed with Tylenol and rest. - Using a hemp cream for joint pain relief. - Reports easy bruising, possibly related to Orencia. - Inflammation markers currently within normal range. Hypertension: - Controlled with losartan 100 mg, atenolol, and amlodipine. - Denies chest pain, dyspnea, edema, or palpitations. - tries to maintain a healthy diet most of the time and walks for exercise REVIEW OF SYSTEMS See HPI PAST MEDICAL HISTORY Diagnosis Date De Quervain's tenosynovitis, bilateral Depression with anxiety Diabetes (HCC) Fibromyalgia Hypercholesterolemia Hypertension IBS (irritable bowel syndrome) Raynaud's disease Restless legs syndrome (RLS) PAST SURGICAL HISTORY Procedure Laterality Date CONE OF CERVIX LOOPELEC EXCIS EXTRACTION, ERUPTED TOOTH OR EXPOSED ROOT (ELEVATION AND/OR FORCEPS REMOVAL) [place] teeth x 4 HYSTERECTOMY HX precervical cancer, removed cervix KNEE SURGERY HX 4x right and left x4 ALLERGIES Penicillin G, Requip [Ropinirole], Enbrel [Etanercept], Jardiance [Empagliflozin], and Wellbutrin [Bupropion Hcl] MEDICATIONS gabapentin (NEURONTIN) 300 mg capsule Take 1 capsule by mouth daily at bedtime for 180 days. gabapentin (NEURONTIN) 100 mg capsule Take 1 capsule by mouth two times a day for 180 days. Take one in AM and one in afternoon. Take the 300mg before bed. insulin glargine U-300 conc (TOUJEO MAX U-300 SOLOSTAR) 300 unit/mL (3 mL) inpn Inject subcutaneously 130 units daily insulin lispro (HUMALOG KWIKPEN INSULIN) 100 unit/mL Inject 25 Units subcutaneously three times a day before meals. Inject 25 units with meals plus SS#2 (2 units for every 50 over 150) (1 units for every 10 grams of carbs). Limit of 100 units daily venlafaxine ER (EFFEXOR XR) 75 mg 24 hr capsule Take 1 capsule by mouth once daily. ferrous sulfate 325 mg (65 mg iron) tablet Take 1 tablet by mouth every other day. pramipexole (MIRAPEX) 0.125 mg tablet take 1 tablet by mouth every evening if needed for RESTELESS LEGS pramipexole (MIRAPEX) 0.5 mg tablet Take 1 tablet by mouth once daily. atorvastatin (LIPITOR) 40 mg tablet Take 1 tablet by mouth once daily. amLODIPine (NORVASC) 5 mg tablet Take 1 tablet by mouth once daily. atenolol (TENORMIN) 50 mg tablet Take 1 tablet by mouth once daily. fenofibrate nanocrystallized (TRICOR) 145 mg tablet Take 1 tablet by mouth once daily. montelukast (SINGULAIR) 10 mg tablet Take 1 tablet by mouth daily at bedtime. omeprazole (PRILOSEC) 40 mg capsule Take 1 capsule by mouth once daily. Blood-Glucose Transmitter (ShareMeister G6 TRANSMITTER) catracho 1 Each continuous. folic acid 1 mg tablet Take 3 mg by mouth once daily. hydrOXYchloroQUINE (PLAQUENIL) 200 mg tablet Take 2 tablets by mouth once daily. methotrexate 2.5 mg tablet Take 17.5 mg by mouth every Tuesday. nabumetone (RELAFEN) 750 mg tablet Take 750 mg by mouth two times a day. ORENCIA CLICKJECT 125 mg/mL auto (more content not included)... Normal [facility] FOLATE, SERUMon 08-09-2024 Folate [Mass/Vol] ng/mL 4.7 - PINF ng/mL [facility] Comment on above: A result of > 20 ng/ mL is not necessarily indicative of a pathologic or treatable condition: it reflects a limitation of the test methodology. Assay reference range: 4.8 to 24.2 ng/mL. Suitable for detection of folate deficiency. Reference: Folate III (Folate III) [package insert V 1.0 Ukrainian]. [facility], [place], [place]: January 2015. Ferritin SerPl-mCncon 2024 Ferritin [Mass/Vol] 56.2 ng/mL Normal 14.7-205.1 [facility] Comment on above: Order Comment: Speci men Type: BLOOD SPECIMENOrdering Facility: [facility] Address: [address] [place] [address] Performed By: #### 2 4321-2, 67929-5, 3015-3, 2275-4 ####[facility] LAB[facility] [id number] [place] [address] [place] Folate [facility] Folate [Mass/Vol] ng/mL Normal >4.7 [facility] Comment on above: Order Comment: Speci men Type: BLOOD SPECIMENOrdering Facility: [facility] Address: [address] [place] [address] Result Comment: A re sult of > 20 ng/mL is not necessarily indicative of a pathologic or treatable condition: it reflects a limitation of the test methodology. Assay reference range: 4.8 to 24.2 ng/mL. Suitable for detection of folate deficiency. Reference: Folate III (Folate III) [package insert V 1.0 Ukrainian]. [facility], [place], [place]: January 2015. Performed By: #### 2 132-9, 2284-8 ####[facility] LAB[facility] [id number] [place] [address] [place] Iron and Iron binding capaci [facility] 08-09-2024 Iron [Mass/Vol] 117 ug/dL Normal 41-186 [facility] Comment on above: Order Comment: Speci men Type: BLOOD SPECIMENOrdering Facility: [facility] Address: [address] [place] [address] Performed By: #### 2 4321-2, 84041-3, 3015-3, 2275-4 ####[facility] LABIA [id number] [place] [id number] [place] Iron binding capacity [Mass/Vol] 479 ug/dL High 232-386 [facility] Comment on above: Order Comment: Speci men Type: BLOOD SPECIMENOrdering Facility: [facility] [place] Address: [address] [place] [address] Performed By: #### 2 4321-2, 89750-2, 3016-3, 6-4 ####[facility] LABCLIA [id number] [place] [id number] [place] Iron/TIBC [Molar ratio] 24.4 % Normal 15.0-57.0 [facility] Comment on above: Order Comment: Speci men Type: BLOOD SPECIMENOrdering Facility: [facility] Address: [address] [place] [address] Performed By: #### 2 4321-2, 34797-1, 3016-3, 2275-4 ####[facility] LABCLIA [id number] [place] [id number] [place] No Panel Informationon 08-09 Interpretation and review of laboratory results Normal [facility] TSH SerPl-aCncon 08-09-2024 TSH Qn 0.880 m[IU]/L Normal 0.270-4.200 [facility] Comment on above: Order Comment: Speci men Type: BLOOD SPECIMENOrdering Facility: [facility] Address: [address] [place] [address] Performed By: #### 2 4321-2, 71785-7, 3015-3, 4 ####[facility] LAB[facility]IA [id number] [place] [id number] [place] VITAMIN B12on 08-09-2024 Cobalamin (Vitamin B12) [Mass/Vol] 428 pg/mL 232 - 1245 pg/mL [facility] Vit B12 SerPl-mCncon 025 Cobalamin (Vitamin B12) [Mass/Vol] 428 pg/mL Normal 232-1245 [facility] Comment on above: Order Comment: Speci men Type: BLOOD SPECIMENOrdering Facility: [facility] Address: [address] [place] [address] Performed By: #### 2 132-9, 2284-8 ####[facility] LABCLIA [id number] [place] [id number] [facility] 07-30-2024 CNPN Telephone (ENDWST) JAROD RODARTE ([id number]) 1970 F Date Time Provider Department 07/30/24 AMADA GANDHI ENDWSShanelle During your visit today, we recorded the following information about you: Laila Harley LPN 07/30/2024 1:17 PM Signed Patient calling in stating she is to start 5mg of Prednisone from Rheumatology and is wondering if she needs to up her Toujeo while she is on the Prednisone. She is worried about the Prednisone raising her blood sugars. DASIA Devries Snigdha Reddy, MD 08/02/2024 3:50 PM Signed Yes, she is recommended to increase Toujeo by atleast 4 units while on Prednisone. After the initial increase of 4 units, if noticing blood sugars above 180 mg/dl, can increase by another 2 units. But once the prednisone course is done, she has to come back to original insulin doses Marleni Coronel RN 08/03/2024 11:01 AM Signed Call placed to Pt - name AND verified. Pt notified of below notation per Dr. Gandhi; voices understanding. Marleni Coronel RN August 03, 2024 11:01 AM Allergies As of Date: 07/30/2024 Noted Allergy Reaction PENICILLIN G 04/18/2013 7 - Swelling REQUIP (ROPINIROLE) 04/18/2013 14 - Other: See Comments Comments: seizures ENBREL (ETANERCEPT) 12/19/2023 14 - Other: See Comments Comments: Palpitations JARDIANCE (EMPAGLIFLOZIN) 01/02/2020 14 - Other: See Comments Comments: Yeast infections WELLBUTRIN (BUPROPION HCL) 08/08/2019 2 - Rash Date Reviewed: 05/21/2024 Reviewed by: Cathy Dunn MA - Fully Assessed Reason for Visit: Patient Question [1477] Prescriptions as of 08/03/2024 - venlafaxine ER (EFFEXOR XR) 75 mg 24 hr capsule Take 1 capsule by mouth once daily. - ferrous sulfate 325 mg (65 mg iron) tablet Take 1 tablet by mouth every other day. - pramipexole (MIRAPEX) 0.125 mg tablet take 1 tablet by mouth every evening if needed for RESTELESS LEGS - pramipexole (MIRAPEX) 0.5 mg tablet Take 1 tablet by mouth once daily. - insulin glargine U-300 conc (TOUJEO MAX U-300 SOLOSTAR) 300 unit/mL (3 mL) inpn Inject subcutaneously 112 units daily - atorvastatin (LIPITOR) 40 mg tablet Take 1 tablet by mouth once daily. - insulin lispro (HUMALOG KWIKPEN INSULIN) 100 unit/mL Inject 22 Units subcutaneously three times a day before meals. Inject 21 units with meals plus SS#2 (2 units for every 50 over 150) (1 units for every 10 grams of carbs). Limit of 75 units daily - amLODIPine (NORVASC) 5 mg tablet Take 1 tablet by mouth once daily. - atenolol (TENORMIN) 50 mg tablet Take 1 tablet by mouth once daily. - fenofibrate nanocrystallized (TRICOR) 145 mg tablet Take 1 tablet by mouth once daily. - montelukast (SINGULAIR) 10 mg tablet Take 1 tablet by mouth daily at bedtime. - omeprazole (PRILOSEC) 40 mg capsule Take 1 capsule by mouth once daily. - Blood-Glucose Transmitter (DEXCOM G6 TRANSMITTER) catracho 1 Each continuous. - folic acid 1 mg tablet Take 3 mg by mouth once daily. - hydrOXYchloroQUINE (PLAQUENIL) 200 mg tablet Take 2 tablets by mouth once daily. - methotrexate 2.5 mg tablet Take 17.5 mg by mouth every Tuesday. - nabumetone (RELAFEN) 750 mg tablet Take 750 mg by mouth two times a day. - ORENCIA CLICKJECT 125 mg/mL auto-injector Inject 1 mL subcutaneously one time a week. - Insulin Bradford, Disposable, (BD ULTRAFINE III MINI PEN) 31 gauge x 3/16 Use with insulin injection 2 times daily - Blood-Glucose Sensor (DEXCOM G6 SENSOR) catracho Change sensor every 10 days. USE FOR CONTINUOUS GLUCOSE MONITORING. MULTIPLE INSULIN INJECTIONS. E11.9 - gabapentin (NEURONTIN) 100 mg capsule Take 1 capsule by mouth two times a day for 180 days. Take one in AM and one in afternoon. Take the 300mg before bed. - gabapentin (NEURONTIN) 300 mg capsule Take 1 capsule by mouth daily at bedtime for 180 days. - metFORMIN (GLUCOPHAGE) 1,000 mg tablet Take 1 tablet by mouth two times a day with meals. - losartan (COZAAR) 100 mg tablet TAKE ONE-HALF TABLET BY MOUTH ONCE DAILY - semaglutide (OZEMPIC) 0.25 mg or 0.5 mg (2 mg/3 mL) pen Inject 0.5 mg subcutaneously one time a week. - venlafaxine ER (EFFEXOR XR) 150 mg 24 hr capsule Take 1 capsule by mouth once daily. - naproxen (NAPROSYN) 500 mg tablet Take 1 tablet by mouth two times a day as needed. - Blood-Glucose Transmitter (DEXCOM G6 TRANSMITTER) catracho Change transmitter every 3 months - continuous glucose monitor, multiple insulin injections E-11.9 - hydrOXYzine HCl (ATARAX) 25 mg tablet Take 1 tablet by mouth three times a day as needed for anxiety. - blood sugar diagnostic (ONETOUCH ULTRA TEST) test strip Test blood sugar(s) 4 times daily. Dx: Type 2 DM - Controlled E11.9 , Insulin: Yes - Lancets (ONETOUCH ULTRASOFT LANCETS) lancets Test blood sugar(s) 4 times daily. Dx: Type 2 DM - Controlled E11.9 , Insulin: Yes - famotidine (PEPCID) 20 mg tablet (more content not included)... Normal [facility] 36on 07-27-2024 36 Pt notified by Joognu rt message. Pain level and if pt has taken anything for pain and swelling Normal [facility] 36 Name of caller: Ferny wan Contact phone number: [phone] Relationship to Patient: patient Provider: Dr. Barber Practice: [facility] Chief Complaint/Reason for Call: Pt states she has been having swelling in her feet, fingers, knees and toes for about a week now and is requesting a steroid to help combat the pain. Pt is requesting to have it sent to: [facility]/pharmacy #[id number] - [place], [place] - 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 Pt asking if Gela can write consult for her to see Dr. Lorenzo Avalos at [place], and send patient's information to Dr. Avalos, when consult is sent. Gela Medina APRN.[facility] 07/05/2024 9:34 AM Signed Order placed. Please fax as requested and update patient. Thank you Gela Medina APRN.AERIAL PHOTOGRAMMETRIST Destiney Briceno MA 07/05/2024 10:09 AM Signed Referral faxed. Oz Elkins RN 07/12/2024 1:35 PM Signed Faxed endocrinology referral to Dr. Avalos. Pt reports Dr. Avalos never received it. Allergies As of Date: 07/03/2024 Noted Allergy Reaction PENICILLIN G 04/18/2013 7 - Swelling REQUIP (ROPINIROLE) 04/18/2013 14 - Other: See Comments Comments: seizures ENBREL (ETANERCEPT) 12/19/2023 14 - Other: See Comments Comments: Palpitations JARDIANCE (EMPAGLIFLOZIN) 01/02/2020 14 - Other: See Comments Comments: Yeast infections WELLBUTRIN (BUPROPION HCL) 08/08/2019 2 - Rash Date Reviewed: 05/21/2024 Reviewed by: Cathy Dunn MA - Fully Assessed Reason for Visit: Patient Question [2737] Primary Visit Diagnosis:Type 2 diabetes mellitus with diabetic nephropathy, with long-term current use of insulin (HCC) [E11.21, Z79.4] Order(s):CONSULT TO ENDOCRINOLOGY [7618] Order #: [id number]: 1 FUTURE Prescriptions as of 07/12/2024 - pramipexole (MIRAPEX) 0.125 mg tablet take 1 tablet by mouth every evening if needed for RESTELESS LEGS - pramipexole (MIRAPEX) 0.5 mg tablet Take 1 tablet by mouth once daily. - insulin glargine U-300 conc (TOUJEO MAX U-300 SOLOSTAR) 300 unit/mL (3 mL) inpn Inject subcutaneously 112 units daily - atorvastatin (LIPITOR) 40 mg tablet Take 1 tablet by mouth once daily. - insulin lispro (HUMALOG KWIKPEN INSULIN) 100 unit/mL Inject 22 Units subcutaneously three times a day before meals. Inject 21 units with meals plus SS#2 (2 units for every 50 over 150) (1 units for every 10 grams of carbs). Limit of 75 units daily - amLODIPine (NORVASC) 5 mg tablet Take 1 tablet by mouth once daily. - atenolol (TENORMIN) 50 mg tablet Take 1 tablet by mouth once daily. - fenofibrate nanocrystallized (TRICOR) 145 mg tablet Take 1 tablet by mouth once daily. - montelukast (SINGULAIR) 10 mg tablet Take 1 tablet by mouth daily at bedtime. - omeprazole (PRILOSEC) 40 mg capsule Take 1 capsule by mouth once daily. - Blood-Glucose Transmitter (DEXCOM G6 TRANSMITTER) catracho 1 Each continuous. - folic acid 1 mg tablet Take 3 mg by mouth once daily. - hydrOXYchloroQUINE (PLAQUENIL) 200 mg tablet Take 2 tablets by mouth once daily. - methotrexate 2.5 mg tablet Take 17.5 mg by mouth every Tuesday. - nabumetone (RELAFEN) 750 mg tablet Take 750 mg by mouth two times a day. - ORENCIA CLICKJECT 125 mg/mL auto-injector Inject 1 mL subcutaneously one time a week. - Insulin Bradford, Disposable, (BD ULTRAFINE III MINI PEN) 31 gauge x 3/16 Use with insulin injection 2 times daily - Blood-Glucose Sensor (DEXCOM G6 SENSOR) catracho Change sensor every 10 days. USE FOR CONTINUOUS GLUCOSE MONITORING. MULTIPLE INSULIN INJECTIONS. E11.9 - gabapentin (NEURONTIN) 100 mg capsule Take 1 capsule by mouth two times a day for 180 days. Take one in AM and one in afternoon. Take the 300mg before bed. - gabapentin (NEURONTIN) 300 mg capsule Take 1 capsule by mouth daily at bedtime for 180 days. - metFORMIN (GLUCOPHAGE) 1,000 mg tablet Take 1 tablet by mouth two times a day with meals. - losartan (COZAAR) 100 mg tablet TAKE ONE-HALF TABLET BY MOUTH ONCE DAILY - semaglutide (OZEMPIC) 0.25 mg or 0.5 mg (2 mg/3 mL) pen Inject 0.5 mg subcutaneously one time a week. - venlafaxine ER (EFFEXOR XR) 150 mg 24 hr capsule Take 1 capsule by mouth once daily. - venlafaxine ER (EFFEXOR XR) 75 mg 24 hr capsule Take 1 capsule by mouth once daily. - ferrous sulfate 325 mg (65 mg iron) tablet Take 1 tablet by mouth every other day. - naproxen (NAPROSYN) 500 mg tablet Take 1 tablet by mouth two times a day as needed. - Blood-Glucose Transmitter (DEXCOM G6 TRANSMITTER) catracho Change transmitter every 3 months - continuous glucose monitor, multiple insulin injections E-11.9 - hydrOXYzine HCl (ATARAX) 25 mg tablet Take 1 tablet by mouth three times a day as needed for anxiety. - blood sugar diagnostic (ONETOUCH ULTRA TEST) test strip Test blood sugar(s) 4 times daily. Dx: Type 2 DM - Controlled E11.9 , Insulin: Yes - Lancets (ONETOUCH ULTRASOFT LANCETS) lancets Test blood sugar(s) 4 times daily. Dx: Type 2 DM - Controlled E11.9 , Insulin: Yes (more content not included)... Normal [facility] 36on 06-22-2024 36 Medication: folic ac id 1mg; 3 tab qd Refills: 08/09/23 90 + 11 [facility] Has enough refills until July. Refused, too early. Pt needs to call pharmacy. School Admissionst message sent. [facility] 06-18-2024 [facility] Telephone (ENDWST) JAROD RODARTE ([id number]) 1970 F Date Time Provider Department 06/18/24 AMADA GANDHI ENDWST During your visit today, we recorded the following information about you: Laila Harley LPN 06/18/2024 10:43 AM Signed Patient called in with several concerns. She states she would like some clarification on what to do as far as her eating goes and her blood sugars. She states she was told when she met with the facing machine operator that she should be eating more but with being on the Ozempic she does not have an appetite. She also states that her blood sugars have been in the 200s, for instance when she woke up this morning she was 200 on her Dexcom. She has not been double checking the numbers with a finger stick but I did tell her to do this. She also has a yeast infection that she has been using monistat 7 for. She also has had cuts/sores on her lips (face) that she states have not been able to heal. She would also like to know why she cannot have an insulin pump? She does not think it is fair that she cannot have one just because she has a learning disability. She explains that there a lots of apps that she can use to carb count and would be able to use the insulin pump. DASIA Devries Snigdha Reddy, MD 06/21/2024 11:13 AM Signed Please let her know that infections can also cause blood sugars to rise, while hyperglycemia can cause fungal infections as well. Eating more protein while reducing carb intake is important for blood sugar control I don't think learning disability was ever a reason for not getting a pump (this diagnosis was never discussed on any of her visits, nor is listed in her past medical history anywhere in the chart). She can see diabetes education to discuss about this. A consult was placed by Ms. Dejesus in the past Let me know if she has any further questions Cathy Dunn MA 06/21/2024 12:25 PM Signed Phoned patient as requested, relayed message as below. Patient reports understanding and has no further questions. 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 - insulin glargine U-300 conc (TOUJEO MAX U-300 SOLOSTAR) 300 unit/mL (3 mL) inpn Inject subcutaneously 112 units daily - atorvastatin (LIPITOR) 40 mg tablet Take 1 tablet by mouth once daily. - insulin lispro (HUMALOG KWIKPEN INSULIN) 100 unit/mL Inject 22 Units subcutaneously three times a day before meals. Inject 21 units with meals plus SS#2 (2 units for every 50 over 150) (1 units for every 10 grams of carbs). Limit of 75 units daily - amLODIPine (NORVASC) 5 mg tablet Take 1 tablet by mouth once daily. - atenolol (TENORMIN) 50 mg tablet Take 1 tablet by mouth once daily. - fenofibrate nanocrystallized (TRICOR) 145 mg tablet Take 1 tablet by mouth once daily. - montelukast (SINGULAIR) 10 mg tablet Take 1 tablet by mouth daily at bedtime. - omeprazole (PRILOSEC) 40 mg capsule Take 1 capsule by mouth once daily. - Blood-Glucose Transmitter (DEXCOM G6 TRANSMITTER) catracho 1 Each continuous. - folic acid 1 mg tablet Take 3 mg by mouth once daily. - hydrOXYchloroQUINE (PLAQUENIL) 200 mg tablet Take 2 tablets by mouth once daily. - methotrexate 2.5 mg tablet Take 17.5 mg by mouth every Tuesday. - nabumetone (RELAFEN) 750 mg tablet Take 750 mg by mouth two times a day. - ORENCIA CLICKJECT 125 mg/mL auto-injector Inject 1 mL subcutaneously one time a week. - Insulin Bradford, Disposable, (BD ULTRAFINE III MINI PEN) 31 gauge x 3/16 Use with insulin injection 2 times daily - Blood-Glucose Sensor (DEXCOM G6 SENSOR) catracho Change sensor every 10 days. USE FOR CONTINUOUS GLUCOSE MONITORING. MULTIPLE INSULIN INJECTIONS. E11.9 - gabapentin (NEURONTIN) 100 mg capsule Take 1 capsule by mouth two times a day for 180 days. Take one in AM and one in afternoon. Take the 300mg before bed. - gabapentin (NEURONTIN) 300 mg capsule Take 1 capsule by mouth daily at bedtime for 180 days. - (more content not included)... Normal [facility] 36on 06-13-2024 36 Noted pt also notifi ed she must be at the office and checked in by 11:15 am to be seen or would need to reschedule. [facility] 36 Name of Caller: Ferny wan Contact Reason for Appointment: Patient called in stating she was stuck in construction may be about 10 min behind for appt. Please be advised Office Name: [facility] Rheumatology [facility] Office Visiton 06-13-2024 Follow-up visit [id number] Robert Rodarte 1970 F Date Provider Department Center 06/13/2024 [id number] BARBER RHEUM C None Family History Family Status - Relation Status Age at Mother Alive Father Alive Brother Alive Son Alive Son Alive Level of Service:64898 NM OFFICE/OUTPATIENT ESTABLISHED MOD MDM 30 MIN Reason for Visit and Comments: Follow-up [[id number]] [facility] Progress Noteon 06-13-2024 Progress Note CHIEF COMPLAINT: bill nt pain HPI: Ongoing seronegative rheumatoid arthritis. She has a history of A-fib, and this has been stable recently. She feels Orencia is helping her joints along with Plaquenil methotrexate. She is not sure nabumetone is helping much with joint pain. She has less morning stiffness. No recent infections. She is planning on increasing activity soon with fishing season approaching. She has not had new areas of joint pain or stiffness. No visual changes or new rashes. General: no weight loss, fevers or night sweats HEENT: no dry eyes or mouth, oral ulcers, no visual changes or red eyes, no changes in hearing CV: no chest pain or palpitations Pulm: no worsening shortness of breath, no pleurisy GI: no nausea, GERD : no dysuria, incontinence or changes in kidney function Neuro: no new headaches, weakness or seizures Skin: no new rashes or skin lesions Allergies Allergen Reactions Penicillins Anaphylaxis Bupropion Other Seizure and hives Empagliflozin Hives Ropinirole Seizure Current Outpatient Medications Medication Sig Dispense Refill Abatacept (Orencia ClickJect) 125 MG/ML solution auto-injector Inject 125mg under the skin once a week 4 mL 5 amLODIPine (Norvasc) 5 MG tablet Take 5 mg by mouth in the morning. aspirin 81 MG EC tablet Take 81 mg by mouth in the morning. atenolol (Tenormin) 50 MG tablet Take 50 mg by mouth in the morning. atorvastatin (Lipitor) 20 MG tablet Take 20 mg by mouth in the morning. BD Pen Needle Teetee 2nd Gen 32G X 4 MM [facility] USE TO INJECT INSULIN SUBCUTANEOUSLY TWICE A DAY DIRECTED Continuous Blood Gluc Sensor (Dexcom G6 Sensor) [facility] [place] Use a new sensor every 10 days. Diclofenac Sodium (Voltaren) 1 % gel Apply 2 g to affected hand bid prn 200 g 3 fenofibrate (Tricor) 145 MG tablet Take 145 mg by mouth in the morning. folic acid (Folvite) 1 MG tablet Take 3 tablets (3,000 mcg) by mouth daily. 90 tablet 11 gabapentin (Neurontin) 100 MG capsule Take 100 mg by mouth 2 times daily. gabapentin (Neurontin) 300 MG capsule Take 300 mg by mouth Nightly. glucagon (Gvoke HypoPen) 1 MG/0.2ML injection Inject 1 mg under the skin Once as needed for low blood sugar. Prn for emergency hydroxychloroquine (Plaquenil) 200 MG tablet Take 2 tablets (400 mg) by mouth daily. 60 tablet 2 insulin glargine (Lantus) 100 UNIT/ML pen Inject 67 Units under the skin in the morning and 67 Units in the evening. Insulin Glargine (TOUJEO MAX SOLOSTAR SC) Inject 112 Units under the skin every morning. Insulin Lispro (Humalog) 100 UNIT/ML solution injection Inject 5 Units under the skin. Sliding scale losartan (Cozaar) 100 MG tablet Take 0.5 tablets by mouth in the morning. metFORMIN (Glucophage) 1000 MG tablet Take 1 tablet by mouth in the morning and 1 tablet in the evening. Take with meals. methotrexate 2.5 MG tablet Take 7 tablets (17.5 mg total) by mouth 1 (one) time per week. 84 tablet 1 methylPREDNISolone (Medrol) 4 MG tablet Take 2 tabs po every day for one week then 1 tab po every day for one week 21 tablet 0 montelukast (Singulair) 10 MG tablet Take 1 tablet by mouth Nightly. omeprazole (PriLOSEC) [address] capsule Take 1 capsule by mouth every morning (before breakfast). pramipexole (Mirapex) 0.5 MG tablet Take 0.5 mg by mouth in the morning. semaglutide (Ozempic, 1 MG/DOSE,) 4 MG/3ML solution pen-injector Inject 1 mg under the skin once a week. triamcinolone (Nasacort) 55 MCG/ACT nasal inhaler Administer 2 sprays into affected nostril(s) in the morning. Unifine Pentips 31G X 5 MM misc venlafaxine XR (Effexor XR) 150 MG 24 hr capsule Take 150 mg by mouth in the morning. No current facility-administered medications for this visit. OBJECTIVE: Visit Vitals BP (!) 143/84 (BP Location: Left arm, Patient Position: Sitting, BP Cuff Size: Large adult) Pulse 82 HEENT: no red or dry eyes, oral mucosa moist and without lesions, no alopecia or scalp rashes, no lymphadenopathy CV: S1S2 no mrg Pulm: CTA bilat without wheezes, crackles Abd: soft, nontender MSK: mild tenderness in MCPs, wrists bilat Neuro: CN 2-12 grossly intact, strength 5/5, no sensory loss in UE, LE, DTRs 1+ Skin: no rashes, no purpura, no bruising A/P: 1) seronegative rheumatoid arthritis. She has had improved symptoms on current Orencia Plaquenil methotrexate. She will continue current medications at the same doses, continue yearly eye exams for Plaquenil toxicity screens. Continue clinical lab ongoing 4 to 6 months. She will hold methotrexate and Orencia if she has any signs of fever chills cough or other signs of infection. She will hold off on further nabumetone which does not seem to be helping much currently. Orders Placed This Encounter Procedures Comprehensive metabolic panel Standing Status: Future Number of Occurrences: 1 Standing Expiration Date: 06/13/2025 CBC Standing Status: Future Number of Occurrences: 1 Standing Expiration Date (more content not included)... [facility] (ENWSTR ) JAROD RODARTE ([id number]) 1970 F Date Time Provider Department 05/21/24 12:00 PM AMADA GANDHI ENWSTR During your visit today, we recorded the following information about you: Temperature Pulse Weight 96.7 degrees 73/minute 89.5 kg Amada Gandhi MD 05/23/2024 2:26 PM Signed [facility] Follow up note Referred by: Gela medina APRN.AERIAL PHOTOGRAMMETRIST Chief complaint: MAKAYLA History of present illness: This is a 53 year old female with MAKAYLA, HTN, HLD, RA, Reynaud's, IBS who is presenting for follow up evaluation and management of diabetes. She was initially diagnosed in 2009 as Type 2, and then diagnosed as MAKAYLA in 03/2022 after antibodies on labs by Katharine Dejesus APRN. CNP who she was seeing so far since Mar 2022 via [facility] She reports she has not been on steroids for RA or lupus as she knows they can have bad effects on her sugars Denies any micro or macrovascular complications from diabetes Complications: Cardiovascular -- Yes HTN, HLD Statin Use -- Yes Retinopathy -- No Last AZALEA/Retina Eval: May 2023 Nephropathy -- Yes MANDY/ARB Use -- Yes Polyneuropathy -- No Foot Exam: not sure Obesity -- Yes Other -- No Symptoms/concerns today No new concerns reported today Diabetes Medications -Current regimen: Humalog 22 units with sliding scale starting at 150 mg/dl Toujeo 112 units daily in am Ozempic 1 mg weekly- could not tolerate- went back to 0.5 mg weekly, now again at 1 mg weekly -Misses doses: None She is rotating injection sites but mostly takes in abdomen -Previously Used DM Meds Victoza Metformin . Blood sugars : Patient did not bring her reader, neither has accepted sharing data with clinic- link sent- but data could be downloaded after she has left clinic Summary of Personal CGM Findings: April 22, 2024 to May 21, 2024 Type of CGM: Dexcom G7 1) CGM recording is adequate for interpretation. Worn 92% of time. 2) Average glucose is 211 mg/dL. BG range/St. Dev: 41 mg/dL 3) 24% time in range 70-180 mg/dL 4) Total frequency of hypoglycemia: 0% with BG < 70 - Hypoglycemia patterns: 0 - Nocturnal hypoglycemia was NOT noted 5) Hyperglycemic episodes 60% with BG > 180, 16% >250 - Hyperglycemia patterns: Continues to have postprandial spikes with breakfast and dinner followed by overnight hyperglycemia Interpretation: as above . Hypoglycemia -Hypoglycemic episodes: none in the last few months -Frequency and timing of hypoglycemia: n/a -Hypoglycemia awareness: yes, feels diaphoretic, fogginess, shakiness . Lifestyle -Exercise: no -Diet: 3 meals a day Tries to eat healthy, watches diet closely She has seen diabetes education initially- does not prefer using carb counting - estimates required insulin dosing with portion size . Blood pressure -Today BP: 142/82 -Current antihypertensive therapy: Losartan 100 mg once daily, amlodipine 5 mg once daily, atenolol 50 mg once daily . Lipids -Last lipid panel: 02/2024 -Currently on Statin therapy: Lipitor 20 mg once daily -Statin associated side effects: Tolerating well ROS: As per HPI Past Medical History PAST MEDICAL HISTORY Diagnosis Date De Quervain's tenosynovitis, bilateral Depression with anxiety Diabetes (HCC) Fibromyalgia Hypercholesterolemia Hypertension IBS (irritable bowel syndrome) Raynaud's disease Restless legs syndrome (RLS) Past Surgical History PAST SURGICAL HISTORY Procedure Laterality Date CONE OF CERVIX LOOPELEC EXCIS EXTRACTION, ERUPTED TOOTH OR EXPOSED ROOT (ELEVATION AND/OR FORCEPS REMOVAL) [place] teeth x 4 HYSTERECTOMY HX precervical cancer, removed cervix KNEE SURGERY HX 4x right and left x4 Family History FAMILY HISTORY Problem Relation Age of Onset Hypertension Mother Breast Cancer Mother other (raynaud) Mother Parkinson?s Disease Father Hyperlipidemia Father Arthritis Father Breast Cancer Maternal Grandmother other (Thrombosis) Maternal Grandfather COPD Paternal Grandmother Coronary Artery Disease Paternal Grandmother Coronary Artery Disease Paternal Grandfather other (Brock Disease) Maternal Aunt Cervical Cancer Paternal Aunt Heart Paternal Aunt Factor 5 Leiden Paternal cousin Social History Social History Tobacco Use Smoking status: Every Day Current packs/day: 0.50 Average packs/day: 0.5 packs/day for 31.0 years (15.5 ttl pk-yrs) Types: Cigarettes Smokeless tobacco: Never Vaping Use Vaping status: Never Used Substance Use Topics Alcohol use: No Drug use: No Allergies ALLERGIES Allergen Reactions Penicillin G Swelling Requip [Ropinirole] Other: See Comments seizures Enbrel [Etanercept] Other: See Comments Palpitations Jardiance [Empaglif* Other: See Comments Yeast infections Wellbutrin [Bupropi* Rash (more content not included)... Normal [facility] HEMOGLOBIN A1C (POC)on 05-21 HbA1c (Bld) [Mass fraction] 9.3 % Abnormal 4.3 - 5.6 % [facility] Comment on above: Location:[facility], [address], [place], [address] Point of care (POC) Hemoglobin A1c (HGBA1C) testing is intended to assess glucose control and provide a management tool for patients known to have diabetes and their healthcare providers. Target HGBA1C levels may depend on specific clinical circumstances. POC HGBA1C is not intended for use as a diagnostic or screening test; laboratory-based testing should be used for diagnostic purposes. The following information is supplemental and may not be applicable to specific diabetes management situations: The POC device contact lens manufacturer provides a normal range of 4.2% to 6.5% for the HGBA1C POC test. However, the [place] [employer] guidelines indicate that patients with HGBA1C in the range of 5.7% to 6.4% are at increased risk for development of diabetes and that intervention by lifestyle modification may be beneficial. A HGBA1C level greater than or equal to 6.5% is considered diagnostic of diabetes, pending confirmatory testing. Use of HGBA1C testing to evaluate glucose control may not be appropriate for patients with hemoglobin variants or other conditions (e.g. anemia) that alter red blood cell lifespan. Interpretation and review of laboratory results Abnormal [facility] CBC panel Auto (Bld)on 05-11 Erythrocyte distribution width (RBC) [Ratio] 14.1 % Normal 11.5-15.0 [facility] Comment on above: Order Comment: Cherry carter Type: BLOOD SPECIMENOrdering Facility: [facility] ([facility]) Address: [address] [place] [address] Performed By: #### 5 8410-2 ####[facility] [id number] [address] [place] Hematocrit (Bld) [Volume fraction] 42.7 % Normal 36.0-46.0 [facility] Comment on above: Order Comment: Cherry carter Type: BLOOD SPECIMENOrdering Facility: [facility] ([facility]) Address: [address] [place] [address] Performed By: #### 5 8410-2 ####[facility] [id number] [place] [address] [place] Hemoglobin (Bld) [Mass/Vol] 14.6 g/dL Normal 11.5-15.5 [facility] Comment on above: Order Comment: Cherry carter Type: BLOOD SPECIMENOrdering Facility: [facility] ([facility]) Address: [address] [place] [address] Performed By: #### 5 8410-2 ####[facility] [id number] [place] [address] [place] MCH (RBC) [Entitic mass] 29.7 pg Normal 26.0-34.0 [facility] Comment on above: Order Comment: Speci men Type: BLOOD SPECIMENOrdering Facility: [facility] ([facility]) Address: [address] [place] [address] Performed By: #### 5 8410-2 ####[facility]ITALMYLESLIA [id number] [place] [address] [place] MCHC (RBC) [Mass/Vol] 34.2 g/dL Normal 30.5-36.0 [facility] Comment on above: Order Comment: Speci men Type: BLOOD SPECIMENOrdering Facility: [facility] ([facility]) Address: [address] [place] [address] Performed By: #### 5 8410-2 ####[facility] [id number] [place] [address] [place] MCV (RBC) [Entitic vol] 87.0 fL Normal 80.0-100.0 [facility] Comment on above: Order Comment: Speci men Type: BLOOD SPECIMENOrdering Facility: [facility] ([facility]) Address: [address] [place] [address] Performed By: #### 5 8410-2 ####[facility]ITALMYLESLIA [id number] [address] [place] Nucleated RBC (Bld) [#/Vol] 10*3/uL Normal <0.01 [facility] Comment on above: Order Comment: Speci men Type: BLOOD SPECIMENOrdering Facility: [facility] ([facility]) Address: [address] [place] [address] Performed By: #### 5 8410-2 ####[facility] [id number] [place] [address] [place] Platelet mean volume (Bld) [Entitic vol] 9.0 fL Normal 9.0-12.7 [facility] Comment on above: Order Comment: Speci men Type: BLOOD SPECIMENOrdering Facility: [facility]) Address: [address] [place] [address] Performed By: #### 5 8410-2 ####[facility] SOUTHLIZZIEA [id number] [place] [address] [place] Platelets (Bld) [#/Vol] 496 10*3/uL High 150-400 [facility] Comment on above: Order Comment: Speci men Type: BLOOD SPECIMENOrdering Facility: [facility] Address: [address] [place] [address] Performed By: #### 5 8410-2 ####[facility] [id number] [place] [address] [place] RBC (Bld) [#/Vol] 4.91 10*6/uL Normal 3.90-5.20 [facility] Comment on above: Order Comment: Speci men Type: BLOOD SPECIMENOrdering Facility: [facility]) Address: [address] [place] [address] Performed By: #### 5 8410-2 ####[facility] SOUTHLIA [id number] [place] [address] [place] WBC (Bld) [#/Vol] 9.63 10*3/uL Normal 3.70-11.00 [facility] Comment on above: Order Comment: Speci men Type: BLOOD SPECIMENOrdering Facility: [facility] ([facility]) Address: [address] [place] [address] Performed By: #### 5 8410-2 ####[facility] [id number] [place] [id number] [place] [facility] CNOVon 05-11-2024 CNOV Office Visit (INTMWS ) JAROD RODARTE ([id number]) 1970 F Date Time Provider Department 05/11/24 2:00 PM OLDERGELA During your visit today, we recorded the following information about you: Pulse Respiration Blood pressure Weight 84/minute 16/minute 122/80 89.4 kg Gela Medina APRN.CNP 05/11/2024 3:56 PM Signed CC: Patient presents with: Recheck: DM follow up HPI Jarod Mahajan Aayush is a 53 year old female who presents today for sinus concerns. Has had sinus drainage for the past 3 months along with sneezing. Also having some headaches, sinus pain, itchy eyes, intermittent ear pain, and feels more tired then usual. Reports she gets allergies like this every year and waits until winter is over for it to resolve. Has had allergy testing 6 years ago showing allergies to animal hair, trees, and grass. Denies fever, chills, cough, wheezing, shortness of breath, dizziness, chest pain, edema, and palpitations. Has used Flonase, humidifiers, homeopathic ear drops, and another nasal spray with no improvement. On prescription Singulair but does not take any OTC allergy medicine. Changed air filters at home this past February. Same cat for 7 years without previous issue. No new pets. Also with right heel concerns. Has had cracks in her heels but last night the one on the right side cracked open and started bleeding. Uses a heavy duty aloe vera lotion and almond oil in with the lotion. Will cover with the socks. Has been having difficulty with her blood sugar uncontrolled which she is working with endocrinology and a dietitian to help with this. Denies fever, chills, drainage, redness. Edema, loss of sensation, or pain. REVIEW OF SYSTEMS See HPI PAST MEDICAL HISTORY Diagnosis Date De Quervain's tenosynovitis, bilateral Depression with anxiety Diabetes (HCC) Fibromyalgia Hypercholesterolemia Hypertension IBS (irritable bowel syndrome) Raynaud's disease Restless legs syndrome (RLS) PAST SURGICAL HISTORY Procedure Laterality Date CONE OF CERVIX LOOPELEC EXCIS EXTRACTION, ERUPTED TOOTH OR EXPOSED ROOT (ELEVATION AND/OR FORCEPS REMOVAL) [place] teeth x 4 HYSTERECTOMY HX precervical cancer, removed cervix KNEE SURGERY HX 4x right and left x4 ALLERGIES Penicillin G, Requip [Ropinirole], Enbrel [Etanercept], Jardiance [Empagliflozin], and Wellbutrin [Bupropion Hcl] MEDICATIONS pramipexole (MIRAPEX) 0.5 mg tablet Take 1 tablet by mouth once daily. insulin glargine U-300 conc (TOUJEO MAX U-300 SOLOSTAR) 300 unit/mL (3 mL) inpn Inject subcutaneously 112 units daily atorvastatin (LIPITOR) 40 mg tablet Take 1 tablet by mouth once daily. insulin lispro (HUMALOG KWIKPEN INSULIN) 100 unit/mL Inject 22 Units subcutaneously three times a day before meals. Inject 21 units with meals plus SS#2 (2 units for every 50 over 150) (1 units for every 10 grams of carbs). Limit of 75 units daily amLODIPine (NORVASC) 5 mg tablet Take 1 tablet by mouth once daily. atenolol (TENORMIN) 50 mg tablet Take 1 tablet by mouth once daily. fenofibrate nanocrystallized (TRICOR) 145 mg tablet Take 1 tablet by mouth once daily. montelukast (SINGULAIR) 10 mg tablet Take 1 tablet by mouth daily at bedtime. omeprazole (PRILOSEC) 40 mg capsule Take 1 capsule by mouth once daily. Blood-Glucose Transmitter (DEXCOM G6 TRANSMITTER) catracho 1 Each continuous. folic acid 1 mg tablet Take 3 mg by mouth once daily. hydrOXYchloroQUINE (PLAQUENIL) 200 mg tablet Take 2 tablets by mouth once daily. methotrexate 2.5 mg tablet Take 17.5 mg by mouth every Tuesday. nabumetone (RELAFEN) 750 mg tablet Take 750 mg by mouth two times a day. ORENCIA CLICKJECT 125 mg/mL auto-injector Inject 1 mL subcutaneously one time a week. (Patient not taking: Reported on 02/17/2024) Insulin Bradford, Disposable, (BD ULTRAFINE III MINI PEN) 31 gauge x 3/16 Use with insulin injection 2 times daily Blood-Glucose Sensor (ShareMeister G6 SENSOR) catracho Change sensor every 10 days. USE FOR CONTINUOUS GLUCOSE MONITORING. MULTIPLE INSULIN INJECTIONS. E11.9 gabapentin (NEURONTIN) 100 mg capsule Take 1 capsule by mouth two times a day for 180 days. Take one in AM and one in afternoon. Take the 300mg before bed. gabapentin (NEURONTIN) 300 mg capsule Take 1 capsule by mouth daily at bedtime for 180 days. metFORMIN (GLUCOPHAGE) 1,000 mg tablet Take 1 tablet by mouth two times a day with meals. losartan (COZAAR) 100 mg tablet TAKE ONE-HALF TABLET BY MOUTH ONCE DAILY (Patient taking differently: Take 50 mg by mouth once daily.) semaglutide (OZEMPIC) 0.25 mg or 0.5 mg (2 mg/3 mL) pen Inject 0.5 mg subcutaneously one time a week. venlafaxine ER (EFFEXOR XR) 150 mg 24 hr capsule Take 1 capsule by mouth once daily. venlafaxine ER (EFFEXOR XR) 75 mg 24 hr capsule Take 1 capsule by mouth once daily. ferrous sulfate 325 mg (65 mg iron) tablet Take 1 ta (more content not included)... Normal [facility] 05-11-2024 [facility] Telephone (SELENAWS) JAROD RODARTE ([id number]) 1970 F Date Time Provider Department 05/11/24 GELA MEDINA During your visit today, we recorded the following information about you: Anjelica Morley 05/11/2024 2:57 PM Signed Patient's fiance returned to the front end driver requesting that the patient's prescription ordered today be sent to [facility] in [place] as they will not get the medication from [facility] for 2-3 days. Please assist. Gela Harrington APRN.HAYLEE 05/11/2024 3:21 PM Signed Prescription sent as requested. Gela Medina APRN.Destiney Barraza MA 05/11/2024 3:26 PM Signed Left message. Jackie Glover RN 05/11/2024 4:01 PM Signed Patient returns call and notified of below. Jackie Glover RN Allergies As of Date: 05/11/2024 Noted Allergy Reaction PENICILLIN G 04/18/2013 7 - Swelling REQUIP (ROPINIROLE) 04/18/2013 14 - Other: See Comments Comments: seizures ENBREL (ETANERCEPT) 12/19/2023 14 - Other: See Comments Comments: Palpitations JARDIANCE (EMPAGLIFLOZIN) 01/02/2020 14 - Other: See Comments Comments: Yeast infections WELLBUTRIN (BUPROPION HCL) 08/08/2019 2 - Rash Date Reviewed: 05/11/2024 Reviewed by: Destiney Briceno MA - Fully Assessed Reason for Visit: Medication Problem [65] Order(s):doxycycline (VIBRA-TABS) 100 mg tabletTake 1 tablet by mouth two times a day for 10 days.Disp: 20 tabletRfl: 0 Prescriptions as of 05/11/2024 - doxycycline (VIBRA-TABS) 100 mg tablet Take 1 tablet by mouth two times a day for 10 days. - pramipexole (MIRAPEX) 0.5 mg tablet Take 1 tablet by mouth once daily. - insulin glargine U-300 conc (TOUJEO MAX U-300 SOLOSTAR) 300 unit/mL (3 mL) inpn Inject subcutaneously 112 units daily - atorvastatin (LIPITOR) 40 mg tablet Take 1 tablet by mouth once daily. - insulin lispro (HUMALOG KWIKPEN INSULIN) 100 unit/mL Inject 22 Units subcutaneously three times a day before meals. Inject 21 units with meals plus SS#2 (2 units for every 50 over 150) (1 units for every 10 grams of carbs). Limit of 75 units daily - amLODIPine (NORVASC) 5 mg tablet Take 1 tablet by mouth once daily. - atenolol (TENORMIN) 50 mg tablet Take 1 tablet by mouth once daily. - fenofibrate nanocrystallized (TRICOR) 145 mg tablet Take 1 tablet by mouth once daily. - montelukast (SINGULAIR) 10 mg tablet Take 1 tablet by mouth daily at bedtime. - omeprazole (PRILOSEC) 40 mg capsule Take 1 capsule by mouth once daily. - Blood-Glucose Transmitter (DEXCOM G6 TRANSMITTER) catracho 1 Each continuous. - folic acid 1 mg tablet Take 3 mg by mouth once daily. - hydrOXYchloroQUINE (PLAQUENIL) 200 mg tablet Take 2 tablets by mouth once daily. - methotrexate 2.5 mg tablet Take 17.5 mg by mouth every Tuesday. - nabumetone (RELAFEN) 750 mg tablet Take 750 mg by mouth two times a day. - ORENCIA CLICKJECT 125 mg/mL auto-injector Inject 1 mL subcutaneously one time a week. - Insulin Bradford, Disposable, (BD ULTRAFINE III MINI PEN) 31 gauge x 3/16 Use with insulin injection 2 times daily - Blood-Glucose Sensor (DEXCOM G6 SENSOR) catracho Change sensor every 10 days. USE FOR CONTINUOUS GLUCOSE MONITORING. MULTIPLE INSULIN INJECTIONS. E11.9 - gabapentin (NEURONTIN) 100 mg capsule Take 1 capsule by mouth two times a day for 180 days. Take one in AM and one in afternoon. Take the 300mg before bed. - gabapentin (NEURONTIN) 300 mg capsule Take 1 capsule by mouth daily at bedtime for 180 days. - metFORMIN (GLUCOPHAGE) 1,000 mg tablet Take 1 tablet by mouth two times a day with meals. - losartan (COZAAR) 100 mg tablet TAKE ONE-HALF TABLET BY MOUTH ONCE DAILY - semaglutide (OZEMPIC) 0.25 mg or 0.5 mg (2 mg/3 mL) pen Inject 0.5 mg subcutaneously one time a week. - venlafaxine ER (EFFEXOR XR) 150 mg 24 hr capsule Take 1 capsule by mouth once daily. - venlafaxine ER (EFFEXOR XR) 75 mg 24 hr capsule Take 1 capsule by mouth once daily. - ferrous sulfate 325 mg (65 mg iron) tablet Take 1 tablet by mouth every other day. - pramipexole (MIRAPEX) 0.125 mg tablet take 1 tablet by mouth every evening if needed for RESTELESS LEGS - naproxen (NAPROSYN) 500 mg tablet Take 1 tablet by mouth two times a day as needed. - Blood-Glucose Transmitter (DEXCOM G6 TRANSMITTER) catracho Change transmitter every 3 months - continuous glucose monitor, multiple insulin injections E-11.9 - hydrOXYzine HCl (ATARAX) 25 mg tablet Take 1 tablet by mouth three times a day as needed for anxiety. - blood sugar diagnostic (ONETOUCH ULTRA TEST) test strip Test blood sugar(s) 4 times daily. Dx: Type 2 DM - Controlled E11.9 , Insulin: Yes - Lancets (ONETOUCH ULTRASOFT LANCETS) lancets Test blood sugar(s) 4 times daily. Dx: Type 2 DM - Controlled E11.9 , Insulin: Yes - famotidine (PEPCID) 20 mg tablet Take 1 tablet by mouth at bedtime as needed. - glucagon (GLUCAGON EMERGENCY KIT (more content not included)... Normal [facility] CRP [Mass/Vol] 0.4 mg/dL Normal <0.9 [facility] Comment on above: Order Comment: Speci men Type: BLOOD SPECIMEN Ordering Facility: [facility]) Address: [address] [place] [address] Performed By: #### 2 4322-10, 1987-07 #### [employer] [facility] CLIA [id number] [address] [place] [address] [place] Comprehensive metabolic 2000 panelon 05-11-2024 Albumin [Mass/Vol] 4.2 g/dL Normal 3.9-4.9 [facility] Comment on above: Order Comment: Speci men Type: BLOOD SPECIMEN Ordering Facility: [facility]) Address: [address] [place] [address] Performed By: #### 2 4322-10, 1987-07 #### [employer] [facility] CLIA [id number] [address] [place] [address] [place] ALP [Catalytic activity/Vol] 86 U/L Normal 34-123 [facility] Comment on above: Order Comment: Speci men Type: BLOOD SPECIMEN Ordering Facility: [facility] ([facility]) Address: [address] [place] [address] Performed By: #### 2 1987-07 #### [employer] [facility] CLIA [id number] [address] [place] [address] [place] ALT With P-5'-P [Catalytic activity/Vol] 24 U/L Normal 7-38 [facility] Comment on above: Order Comment: Speci men Type: BLOOD SPECIMEN Ordering Facility: [facility] ([facility]) Address: [address] [place] [address] Performed By: #### 2 4322-10, 1987-07 #### [facility] CLIA [id number] [address] [place] [address] [place] Anion gap [Moles/Vol] 12 mmol/L Normal 8-15 [facility] Comment on above: Order Comment: Speci men Type: BLOOD SPECIMEN Ordering Facility: [facility]) Address: [address] [place] [address] Performed By: #### 2 4322-10, 1987-07 #### [facility] CLIA [id number] [address] [place] [address] [place] AST With P-5'-P [Catalytic activity/Vol] 21 U/L Normal 13-35 [facility] Comment on above: Order Comment: Speci men Type: BLOOD SPECIMEN Ordering Facility: [facility] ([facility]) Address: [address] [place] [address] Performed By: #### 2 4322-10, 1987-07 #### [facility] CLIA [id number] [address] [place] [address] [place] Bilirubin [Mass/Vol] 0.2 mg/dL Normal 0.2-1.3 [facility] Comment on above: Order Comment: Speci men Type: BLOOD SPECIMEN Ordering Facility: [facility] ([facility]) Address: [address] [place] [address] Performed By: #### 2 4322-10, 1987-07 #### [facility] CLIA [id number] [address] [place] Calcium [Mass/Vol] 10.0 mg/dL Normal 8.5-10.2 [facility] Comment on above: Order Comment: Speci men Type: BLOOD SPECIMEN Ordering Facility: [facility]) Address: [address] [place] [address] Performed By: #### 2 43238, 1987-07 #### [facility] CLIA [id number] [address] [place] [address] [place] Chloride [Moles/Vol] 103 mmol/L Normal 98-107 [facility] Comment on above: Order Comment: Speci men Type: BLOOD SPECIMEN Ordering Facility: [facility]) Address: [address] [place] [address] Performed By: #### 2 4328, 1987-07 #### [facility] CLIA [id number] [address] [place] [address] [place] CO2 [Moles/Vol] 22 mmol/L Normal 22-30 [facility] Comment on above: Order Comment: Speci men Type: BLOOD SPECIMEN Ordering Facility: [facility]) Address: [address] [place] [address] Performed By: #### 2 43206-02, 1987-07 #### [facility] CLIA [id number] [address] [place] [address] [place] Creatinine [Mass/Vol] 0.79 mg/dL Normal 0.58-0.96 [facility] Comment on above: Order Comment: Speci men Type: BLOOD SPECIMEN Ordering Facility: [facility]) Address: [address] [place] [address] Performed By: #### 2 4328, 1987-07 #### [facility] CLIA [id number] [address] [place] Creatinine and Glomerular filtration rate.predicted panel (S/P/Bld) 89 mL/min/1.73m??? Normal >=60 [facility] Comment on above: Order Comment: Speci men Type: BLOOD SPECIMEN Ordering Facility: [facility]) Address: [address] [place] [address] Result Comment: Linda mated Glomerular Filtration Rate (eGFR) is calculated using the 2020 CKD-EPI creatinine equation. This equation utilizes serum creatinine, sex, and age as parameters. The creatinine assay has traceable calibration to isotope dilution-mass spectrometry. Refer to KDIGO guidelines for clinical interpretation. In patients with unstable renal function, e.g. those with acute kidney injury, the eGFR may not accurately reflect actual GFR. Performed By: #### 2 4322-10, 1987-07 #### [facility] CLIA [id number] 1 [place] [address] [place] Glucose [Mass/Vol] 162 mg/dL High 74-99 [facility] Comment on above: Order Comment: Speci men Type: BLOOD SPECIMEN Ordering Facility: [facility]) Address: [address] [place], [place] [id number] Result Comment: The [place] Diabetes Association (ADA) provides guidance for cutoff values for fasting glucose and random glucose. The ADA defines fasting as no caloric intake for at least 8 hours. Fasting plasma glucose results between 100 to 125 [...] Standards of Medical Care in Diabetes 2016, [place] [employer]. Diabetes Care. 2016.39(Suppl 1). Performed By: #### 2 4322-10, 1987-07 #### [facility] CLIA [id number] [address] [place] [address] [place] Potassium [Moles/Vol] 4.5 mmol/L Normal 3.7-5.1 [facility] Comment on above: Order Comment: Cherry carter Type: BLOOD SPECIMEN Ordering Facility: [facility] ([facility]) Address: [address] [id number] Performed By: #### 2 4322-10, 1987-07 #### [facility] CLIA [id number] 1 [place] [address] [place] Protein [Mass/Vol] 6.7 g/dL Normal 6.3-8.0 [facility] Comment on above: Order Comment: Speci men Type: BLOOD SPECIMEN Ordering Facility: [facility] ([facility]) Address: [address] [place] [address] Performed By: #### 2 43206-02, 1987-07 #### [facility] CLIA [id number] [address] [place] [address] [place] Sodium [Moles/Vol] 137 mmol/L Normal 136-144 [facility] Comment on above: Order Comment: Speci men Type: BLOOD SPECIMEN Ordering Facility: [facility] ([facility]) Address: [address] [place] [address] Performed By: #### 2 4322-10, 1987-07 #### [facility] CLIA [id number] [address] [place] [address] [place] Urea nitrogen [Mass/Vol] 14 mg/dL Normal 7-21 [facility] Comment on above: Order Comment: Speci men Type: BLOOD SPECIMEN Ordering Facility: [facility] ([facility]) Address: [address] [place] [address] Performed By: #### 2 4322-10, 1987-07 #### [facility] CLIA [id number] [address] [place] [address] [place] ALBUMIN/CREATININE RATIO, UR INEon 05-01-2024 Albumin DL <= 20 mg/L (U) [Mass/Vol] 1048.4 mg/L Normal [facility] Comment on above: Order Comment: Speci men Type: BLOOD SPECIMEN Ordering Facility: [facility] Address: [address] [place] [address] Performed By: #### 2 4322-10, 1987-07 #### [facility] CLIA [id number] [address] [place] [address] [place] Albumin/Creatinine (U) [Mass ratio] 1742 mg/g High <30 [facility] Comment on above: Order Comment: Speci men Type: BLOOD SPECIMEN Ordering Facility: [facility] Address: [address] [place] [address] Result Comment: Adul t Male and Female Nephrotic Criteria: <30 mg/g is considered normal to mildly increased 30-300 mg/g is considered moderately increased >300 mg/g is considered severely increased KDIGO. (2013). KDIGO 2012 Clinical Practice Guideline for the Evaluation and Management of Chronic Kidney Disease. Official Journal of the International Society of Nephrology, 3(1), 1-150. Performed By: #### 2 4323-8, 1987-07 #### [facility] CLIA [id number] [address] [place] [address] [place] Creatinine (U) [Mass/Vol] 60.2 mg/dL Normal 20.0-300.0 [facility] Comment on above: Order Comment: Speci men Type: BLOOD SPECIMEN Ordering Facility: [facility] Address: [address] [place] [address] Performed By: #### 2 4323-8, 1987-07 #### [facility] CLIA [id number] [address] [place] [address] [place] CBC W Auto Differential pane l (Bld)on 05-01-2024 Basophils (Bld) [#/Vol] 0.06 10*3/uL Normal <0.11 [facility] Comment on above: Order Comment: Speci men Type: BLOOD SPECIMENOrdering Facility: [facility] Address: [address] [place] [address] Performed By: #### 5 7021-8 ####[facility] [id number] [place] [address] [place] Basophils/100 WBC (Bld) 0.6 % Normal [facility] Comment on above: Order Comment: Speci men Type: BLOOD SPECIMENOrdering Facility: [facility] Address: [address] [place] [address] Performed By: #### 5 7021-8 ####[facility] [id number] [place] [address] [place] Differential cell count method Nom (Bld) Auto Normal [facility] Comment on above: Order Comment: Speci men Type: BLOOD SPECIMENOrdering Facility: [facility] Address: [address] [place] [address] Performed By: #### 5 7021-8 ####[facility] [id number] [place] [address] [place] Eosinophils (Bld) [#/Vol] 0.14 10*3/uL Normal <0.46 [facility] Comment on above: Order Comment: Speci men Type: BLOOD SPECIMENOrdering Facility: [facility] Address: [address] [place] [address] Performed By: #### 5 7021-8 ####[facility] [id number] [place] [address] [place] Eosinophils/100 WBC (Bld) 1.4 % Normal [facility] Comment on above: Order Comment: Speci men Type: BLOOD SPECIMENOrdering Facility: [facility] Address: [address] [place] [address] Performed By: #### 5 7021-8 ####[facility] [id number] [place] [address] [place] Erythrocyte distribution width (RBC) [Ratio] 13.8 % Normal 11.5-15.0 [facility] Comment on above: Order Comment: Speci men Type: BLOOD SPECIMENOrdering Facility: [facility] Address: [address] [place] [address] Performed By: #### 5 7021-8 ####[facility] [id number] [place] [address] [place] Hematocrit (Bld) [Volume fraction] 42.7 % Normal 36.0-46.0 [facility] Comment on above: Order Comment: Speci men Type: BLOOD SPECIMENOrdering Facility: [facility] Address: [address] [place] [address] Performed By: #### 5 7021-8 ####[facility] [id number] [place] [address] [place] Hemoglobin (Bld) [Mass/Vol] 14.2 g/dL Normal 11.5-15.5 [facility] Comment on above: Order Comment: Speci men Type: BLOOD SPECIMENOrdering Facility: [facility] Address: [address] [place] [address] Performed By: #### 5 7021-8 ####[facility] [id number] [place] [address] [place] Immature granulocytes (Bld) [#/Vol] 0.06 10*3/uL Normal <0.10 [facility] Comment on above: Order Comment: Speci men Type: BLOOD SPECIMENOrdering Facility: [facility] Address: [address] [place] [address] Performed By: #### 5 7021-8 ####[facility] [id number] [place] [address] [place] Immature granulocytes/100 WBC (Bld) 0.6 % Normal [facility] Comment on above: Order Comment: Speci men Type: BLOOD SPECIMENOrdering Facility: [facility] Address: [address] [place] [address] Performed By: #### 5 7021-8 ####[facility] [id number] [place] [address] [place] Lymphocytes (Bld) [#/Vol] 2.26 10*3/uL Normal 1.00-4.00 [facility] Comment on above: Order Comment: Speci men Type: BLOOD SPECIMENOrdering Facility: [facility] Address: [address] [place] [address] Performed By: #### 5 7021-8 ####[facility] [id number] [place] [address] [place] Lymphocytes/100 WBC (Bld) 23.3 % Normal [facility] Comment on above: Order Comment: Speci men Type: BLOOD SPECIMENOrdering Facility: [facility] Address: [address] [place] [address] Performed By: #### 5 7021-8 ####[facility] [id number] [place] [address] [place] MCH (RBC) [Entitic mass] 29.8 pg Normal 26.0-34.0 [facility] Comment on above: Order Comment: Speci men Type: BLOOD SPECIMENOrdering Facility: [facility] Address: [address] [place] [address] Performed By: #### 5 7021-8 ####[facility] [id number] [place] [address] [place] MCHC (RBC) [Mass/Vol] 33.3 g/dL Normal 30.5-36.0 [facility] Comment on above: Order Comment: Speci men Type: BLOOD SPECIMENOrdering Facility: [facility] [place] Address: [address] [place] [address] Performed By: #### 5 7021-8 ####[facility] [id number] [place] [address] [place] MCV (RBC) [Entitic vol] 89.5 fL Normal 80.0-100.0 [facility] Comment on above: Order Comment: Speci men Type: BLOOD SPECIMENOrdering Facility: [facility] Address: [address] [place] [address] Performed By: #### 5 7021-8 ####[facility] [id number] [place] [address] [place] Monocytes (Bld) [#/Vol] 0.76 10*3/uL Normal <0.87 [facility] Comment on above: Order Comment: Speci men Type: BLOOD SPECIMENOrdering Facility: [facility] Address: [address] [place] [address] Performed By: #### 5 7021-8 ####[facility] [id number] [place] [address] [place] Monocytes/100 WBC (Bld) 7.8 % Normal [facility] Comment on above: Order Comment: Speci men Type: BLOOD SPECIMENOrdering Facility: [facility] Address: [address] [place] [address] Performed By: #### 5 7021-8 ####[facility] [id number] [place] [address] [place] Neutrophils (Bld) [#/Vol] 6.43 10*3/uL Normal 1.45-7.50 [facility] Comment on above: Order Comment: Speci men Type: BLOOD SPECIMENOrdering Facility: [facility] Address: [address] [place] [address] Performed By: #### 5 7021-8 ####[facility] [id number] [place] [address] [place] Neutrophils/100 WBC (Bld) 66.3 % Normal [facility] Comment on above: Order Comment: Speci men Type: BLOOD SPECIMENOrdering Facility: [facility] Address: [address] [place] [address] Performed By: #### 5 7021-8 ####[facility] [id number] [place] [address] [place] Nucleated RBC (Bld) [#/Vol] 10*3/uL Normal <0.01 [facility] Comment on above: Order Comment: Speci men Type: BLOOD SPECIMENOrdering Facility: [facility] Address: [address] [place] [address] Performed By: #### 5 7021-8 ####[facility] [id number] [place] [address] [place] Nucleated RBC/100 WBC (Bld) [Ratio] 0.0 /100 WBC Normal [facility] Comment on above: Order Comment: Speci men Type: BLOOD SPECIMENOrdering Facility: [facility] Address: [address] [place] [address] Performed By: #### 5 7021-8 ####[facility] [id number] [place] [address] [place] Platelet mean volume (Bld) [Entitic vol] 9.0 fL Normal 9.0-12.7 [facility] Comment on above: Order Comment: Speci men Type: BLOOD SPECIMENOrdering Facility: [facility] Address: [address] [place] [address] Performed By: #### 5 7021-8 ####[facility] [id number] [place] [address] [place] Platelets (Bld) [#/Vol] 494 10*3/uL High 150-400 [facility] Comment on above: Order Comment: Speci men Type: BLOOD SPECIMENOrdering Facility: [facility] Address: [address] [place] [address] Performed By: #### 5 7021-8 ####[facility] [id number] [place] [address] [place] RBC (Bld) [#/Vol] 4.77 10*6/uL Normal 3.90-5.20 [facility] Comment on above: Order Comment: Speci men Type: BLOOD SPECIMENOrdering Facility: [facility] Address: [address] [place] [address] Performed By: #### 5 7021-8 ####[facility] [id number] [place] [address] [place] WBC (Bld) [#/Vol] 9.71 10*3/uL Normal 3.70-11.00 [facility] Comment on above: Order Comment: Speci men Type: BLOOD SPECIMENOrdering Facility: [facility] Address: [address] [place] [address] Performed By: #### 5 7021-8 ####[facility] LABCLIA [id number] [facility] [place] [address] [place] 12 Lead EKG performed by [facility] on 04-18-2024 12 Lead EKG performed by [facility] [address] [place] [address] 12 Lead EKG performed by [facility] 04/18/24 1032 MR#: [id number] Acct: [id number] Name: JAROD RODARTE Rep #: [id number] : 1970 53 From: Willie Oviedo MD Attending Dr: Dr. Willie Oviedo MD Status: DEP A MB Ordering Dr: Willie Oviedo MD Date: 04/18/24 Location: [facility] Sex: F C Admitted: BMS/12 Lead EKG performed by [facility] ECG Report Interpretation S inus Rhythm - occasional PAC # PACs = 1.WITHIN NORMAL LIMITSElectronically signed on 04/24/2024 at 09:58 by Willie Oviedo Software Version [id number] 04/24/24 1000 Date Willie Oviedo MD CC: Dr. Melyssa Mobley MD Date Dictated: 04/18/24 1032 Date Transcribed: 04/18/241031 District Loss Prevention Manager: [place] Signed Normal [facility] Cardiology Visit Reporton Cardiology Visit Report [facility] [address] [place] [address] OFFICE VISIT Date of Service: 04/18/24 MR#: [id number] Acct: [id number] Name: JAROD RODARTE Rep #: [id number] : 1970 Provider: Dr. Willie Oviedo MD Age/Sex: 53/F Location: [facility] Status: Signed HPI HPI History of Present Illness Details: 53-year-old lady with a history of diabetes mellitus hypertension hyperlipidemia rheumatoid disease who says that she was started on Enbrel recently. She started getting palpitations which were intense. She also noted spikes of tachycardia on her watch but do not last long. She was seen by cardiology and echocardiogram demonstrated preserved ejection fraction with no wall motion abnormalities present. She also has a history of hypertension which has not been very well- controlled. She did have a 14-day monitor performed which demonstrated short periods of supraventricular tachycardia no obvious atrial fibrillation was noted. She did have a lipid profile performed as well. She presents here for follow-up and treatment of her palpitations. She has no neck arm or jaw discomfort suggest angina she does have some shortness of breath with palpitations. Her physical exam is unremarkable her electrocardiogram demonstrates sinus rhythm with occasional premature atrial complexes at the rate of 84 bpm. Intake Vital Signs 01/01/23 08:25 04/18/24 10:32 Height 5 ft 4 in 5 ft 4 in Weight: 195 lb BMI 33.5 BP 115/70 Blood Pressure Location Lt brachial Position Sitting Respiration 16 Pulse 82 Pulse Source Monitor Intake Visit Reasons: Palps/Presyncope/AV Block/SVTs (Older) Cipher Expert Required: No Is patient in pain?: No Allergies empagliflozin (From Jardiance) Allergy (Intermediate, Verified 04/18/24 10:36) yeast infection etanercept (From Enbrel) Allergy (Intermediate, Verified 04/18/24 10:36) Palpitations bupropion (From Wellbutrin) Allergy (Verified 04/18/24 10:36) Hives Penicillins Allergy (Verified 04/18/24 10:36) Swelling ropinirole HCl (From Requip) Allergy (Verified 04/18/24 10:36) seizure Medications ???Medication ???Instructions ???Recorded ???Confirmed ???Type atenolol 25 mg tablet 50 mg PO DAILY BP 05/01/13 04/18/24 History losartan 50 mg tablet 50 mg PO DAILY BP 05/01/13 04/18/24 History metformin 1,000 mg tablet 1,000 mg PO BID diabetes 05/01/13 04/18/24 History montelukast 10 mg tablet 10 mg PO DAILY breathing 05/01/13 04/18/24 History fenofibrate nanocrystallized 145 145 mg PO DAILY 30 days ##30 04/14/17 04/18/24 History mg tablet amlodipine 5 mg tablet 5 mg PO DAILY BP 04/15/18 04/18/24 History aspirin 81 mg chewable tablet 81 mg PO DAILY@0800 heart health 04/15/18 04/18/24 History atorvastatin 20 mg tablet 20 mg PO DAILY cholesterol 04/15/18 04/18/24 History venlafaxine 150 mg 150 mg PO DAILY anx/dep 04/15/18 04/18/24 History capsule,extended release 24 hr pramipexole 0.5 mg tablet 0.5 mg PO DAILY restless legs 01/10/20 04/18/24 History abatacept 125 mg/mL subcutaneous 125 mg subcut QWEEK 03/16/24 04/18/24 History syringe (Orencia) celecoxib 200 mg capsule 200 mg PO QDAY 03/16/24 04/18/24 History famotidine 20 mg tablet 20 mg PO QDAY 03/16/24 04/18/24 History ferrous sulfate 325 mg (65 mg 325 mg PO .QOD 03/16/24 04/18/24 History iron) tablet (FeroSul) folic acid 1 mg tablet PO 03/16/24 04/18/24 History gabapentin 300 mg capsule 100 mg PO .COMPLEX nerve pain 03/16/24 04/18/24 History hydroxychloroquine 200 mg tablet 200 mg PO BID 03/16/24 04/18/24 History hydroxyzine HCl 25 mg tablet 25 mg PO TID PRN 03/16/24 04/18/24 History insulin glargine U-300 conc 300 112 unit subcut QDAY 03/16/24 04/18/24 History unit/mL (3 mL) subcutaneous pen (Toujeo Max U-300 SoloStar) nabumetone 750 mg tablet 750 mg PO BID 03/16/24 04/18/24 History omeprazole 40 mg capsule,delayed 40 mg PO QDAY 03/16/24 04/18/24 History release pramipexole 0.125 mg tablet 0.125 mg PO QDAY PRN 03/16/24 04/18/24 History semaglutide 0.25 mg or 0.5 mg (2 0.5 mg subcut [place] diabetes 03/16/24 04/18/24 History mg/1.5 mL) subcutaneous pen injector venlafaxine 75 mg capsule,extended 75 mg PO QDAY 03/16/24 04/18/24 History release 24 hr insulin glargine 100 unit/mL (3 20 unit subcut QDAY diabetes 04/18/24 04/18/24 History mL) [facility] RLS (restless legs syndrome) IBS (irritable bowel syndrome) Depression with anxiety Hyperlipidemia Essential (primary) hypertension SVT (supraventricular tachycardia) 1st degree AV block Pre-syncope Palpitations Fibromyalgia DM type 2 (diabetes mellitus, type 2) Poisoning by insulin and oral hypoglycemic [antidiabetic] drugs, accidental (more content not included)... Normal [facility] 36on 03-30-2024 36 Medication: nabumeto ne 750mg bid Refills: 02/14/24 60 + 1 lucita Medication: hcq 200mg 2 tab qd Refills: 02/14/24 60 + 1 lucita LARA: 02/10/24 lucita/ Leeann lab monitoring every 4 to 6 months will try scaling back nabumetone and hydroxychloroquine slightly if the new biologic is effective 02/14/24 lucita TE/ new rx for orencia sent NOV: 06/13/24 Labs: 03/14/24 another provider Eye exam: 06/01/23 under media/ WNL Pended 30 days + 2 refills to next appt [facility]AROD [facility]ODARTE ([id number]) 1970 F Date Time Provider Department 03/15/24 GELA MEDINA During your visit today, we recorded the following information about you: Gela Medina APRN.HAYLEE 03/15/2024 7:57 AM Signed Has she been taking her atorvastatin? If so, we should increase the dose. Also has she been ill or on any steroids recently? Thank you Gela Medina APRN.Destiney Barraza MA 03/15/2024 8:51 AM Signed Left message for return call. Anjelica Morales RN 03/16/2024 10:57 AM Signed Patient calls back and states that she take Atorvastatin every single day since her pills are packaged. Patient denies being sick or taking steroids. JIMY Samuels Joy, APRN.HAYLEE 03/16/2024 12:38 PM Signed I have increased her atorvastatin and we will recheck white blood count in 2 weeks. Follow up for any sign of infection or concern. Her HgbA1c is also uncontrolled. She increased her insulin in the last 4 weeks so hopefully that is helping. 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 Thank you Gela Medina APRN.Destiney Barraza MA 03/16/2024 12:50 PM Signed Patient notified, has endocrinology appointment in March. Allergies As of Date: 03/15/2024 Noted Allergy Reaction PENICILLIN G 04/18/2013 7 - Swelling REQUIP (ROPINIROLE) 04/18/2013 14 - Other: See Comments Comments: seizures ENBREL (ETANERCEPT) 12/19/2023 14 - Other: See Comments Comments: Palpitations JARDIANCE (EMPAGLIFLOZIN) 01/02/2020 14 - Other: See Comments Comments: Yeast infections WELLBUTRIN (BUPROPION HCL) 08/08/2019 2 - Rash Date Reviewed: 02/17/2024 Reviewed by: Marleni Coronel, RN - Fully Assessed Reason for Visit: Results [95] Primary Visit Diagnosis:Leukocytosis, unspecified type [D72.829] Other Visit Diagnosis:Hyperlipidemia, unspecified hyperlipidemia type [E78.5] Order(s):atorvastatin (LIPITOR) 40 mg tabletTake 1 tablet by mouth once daily.Disp: 90 tabletRfl: 3 COMPLETE BLOOD COUNT AND DIFFERENTIAL [SQCBCDIF] Order #: [id number] FUTURE Prescriptions as of 03/16/2024 - atorvastatin (LIPITOR) 40 mg tablet Take 1 tablet by mouth once daily. - insulin lispro (HUMALOG KWIKPEN INSULIN) 100 unit/mL Inject 22 Units subcutaneously three times a day before meals. Inject 21 units with meals plus SS#2 (2 units for every 50 over 150) (1 units for every 10 grams of carbs). Limit of 75 units daily - amLODIPine (NORVASC) 5 mg tablet Take 1 tablet by mouth once daily. - atenolol (TENORMIN) 50 mg tablet Take 1 tablet by mouth once daily. - fenofibrate nanocrystallized (TRICOR) 145 mg tablet Take 1 tablet by mouth once daily. - montelukast (SINGULAIR) 10 mg tablet Take 1 tablet by mouth daily at bedtime. - omeprazole (PRILOSEC) 40 mg capsule Take 1 capsule by mouth once daily. - Blood-Glucose Transmitter (DEXCOM G6 TRANSMITTER) catracho 1 Each continuous. - folic acid 1 mg tablet Take 3 mg by mouth once daily. - hydrOXYchloroQUINE (PLAQUENIL) 200 mg tablet Take 2 tablets by mouth once daily. - methotrexate 2.5 mg tablet Take 17.5 mg by mouth every Tuesday. - nabumetone (RELAFEN) 750 mg tablet Take 750 mg by mouth two times a day. - ORENCIA CLICKJECT 125 mg/mL auto-injector Inject 1 mL subcutaneously one time a week. - Insulin Bradford, Disposable, (BD ULTRAFINE III MINI PEN) 31 gauge x 3/16 Use with insulin injection 2 times daily - Blood-Glucose Sensor (DEXCOM G6 SENSOR) catracho Change sensor every 10 days. USE FOR CONTINUOUS GLUCOSE MONITORING. MULTIPLE INSULIN INJECTIONS. E11.9 - gabapentin (NEURONTIN) 100 mg capsule Take 1 capsule by mouth two times a day for 180 days. Take one in AM and one in afternoon. Take the 300mg before bed. - gabapentin (NEURONTIN) 300 mg capsule Take 1 capsule by mouth daily at bedtime for 180 days. - metFORMIN (GLUCOPHAGE) 1,000 mg tablet Take 1 tablet by mouth two times a day with meals. - losartan (COZAAR) 100 mg tablet TAKE ONE-HALF TABLET BY MOUTH ONCE DAILY - insulin glargine U-300 conc (TOUJEO MAX U-300 SOLOSTAR) 300 unit/mL (3 mL) inpn Inject subcutaneously 112 units daily - semaglutide (OZEMPIC) 0.25 mg or 0.5 mg (2 mg/3 mL) pen Inject 0.5 mg subcutaneously one time a week. - venlafaxine ER (EFFEXOR XR) 150 mg 24 hr capsule Take 1 capsule by mouth once daily. - venlafaxine ER (EFFEXOR XR) 75 mg 24 hr capsule Take 1 capsule by mouth once daily. - ferrous sulfate 325 mg (65 mg iron) tablet Take 1 tablet by mouth every other day. - pramipexole (MIRAPEX) 0.125 mg tablet take 1 tablet by mouth every evening if needed for RESTELESS LEGS - pramipexole (MIRAPEX) 0.5 mg tablet Take 1 tablet by mouth once daily. - naproxen (NAPROSYN) 500 mg tablet Take 1 tablet by mouth two times a day as needed. - Blood-Glucose Transmitter (DEXCOM G6 TRANSMITTER) catracho Change sagastume (more content not included)... Normal [facility] CBC panel Auto (Bld)on 03-14 Erythrocyte distribution width (RBC) [Ratio] 14.2 % Normal 11.5-15.0 [facility] Comment on above: Order Comment: Speci men Type: BLOOD SPECIMEN [facility]ing Facility: [facility]) Address: [address] [place] [address] Performed By: #### 2 43238, 1987-07 #### [employer] [facility] CLIA [id number] [address] [place] Hematocrit (Bld) [Volume fraction] 46.1 % High 36.0-46.0 [facility] Comment on above: Order Comment: Speci men Type: BLOOD SPECIMEN [facility]ing Facility: [facility] ([facility]) Address: [address] [place] [address] Performed By: #### 2 4323-8, 1987-07 #### [employer] [facility] CLIA [id number] [address] [place] [address] [place] Hemoglobin (Bld) [Mass/Vol] 15.3 g/dL Normal 11.5-15.5 [facility] Comment on above: Order Comment: Speci men Type: BLOOD SPECIMEN Ordering Facility: [facility] ([facility]) Address: [address] [place], [place] [address] [address] Performed By: #### 2 4322-10, 1987-07 #### [facility] CLIA [id number] [address] MCH (RBC) [Entitic mass] 30.2 pg Normal 26.0-34.0 [facility] Comment on above: Order Comment: Speci men Type: BLOOD SPECIMEN Ordering Facility: [facility] ([facility]) Address: [address] [place] [address] Performed By: #### 2 4322-10, 1987-07 #### [facility] CLIA [id number] [address] MCHC (RBC) [Mass/Vol] 33.2 g/dL Normal 30.5-36.0 [facility] Comment on above: Order Comment: Speci men Type: BLOOD SPECIMEN Ordering Facility: [facility]) Address: [address] [place] [address] [place] [address] Performed By: #### 2 4322-10, 1987-07 #### [facility] CLIA [id number] [address] MCV (RBC) [Entitic vol] 91.1 fL Normal 80.0-100.0 [facility] Comment on above: Order Comment: Speci men Type: BLOOD SPECIMEN Ordering Facility: [facility] ([facility]) Address: [address] [place] [address] [place] [address] Performed By: #### 2 4322-10, 1987-07 #### [facility] CLIA [id number] [address] Nucleated RBC (Bld) [#/Vol] 10*3/uL Normal <0.01 [facility] Comment on above: Order Comment: Speci men Type: BLOOD SPECIMEN Ordering Facility: [facility] ([facility]) Address: [address] [place] [address] Performed By: #### 2 4322-10, 1987-07 #### [facility] CLIA [id number] [address] [place] Platelet mean volume (Bld) [Entitic vol] 9.0 fL Normal 9.0-12.7 [facility] Comment on above: Order Comment: Speci men Type: BLOOD SPECIMEN Ordering Facility: [facility] ([facility]) Address: [address] [place] [address] Performed By: #### 2 43206-02, 1987-07 #### [facility] CLIA [id number] 1 [place] [address] [place] Platelets (Bld) [#/Vol] 530 10*3/uL High 150-400 [facility] Comment on above: Order Comment: Speci men Type: BLOOD SPECIMEN Ordering Facility: [facility] ([facility]) Address: [address] [place] [address] Performed By: #### 2 4322-10, 1987-07 #### [facility] CLIA [id number] [address] [place] [address] [place] RBC (Bld) [#/Vol] 5.06 10*6/uL Normal 3.90-5.20 [facility] Comment on above: Order Comment: Speci men Type: BLOOD SPECIMEN Ordering Facility: [facility] ([facility]) Address: [address] [place] [address] Performed By: #### 2 4322-10, 1987-07 #### [facility] CLIA [id number] [address] [place] [address] [place] WBC (Bld) [#/Vol] 11.51 10*3/uL High 3.70-11.00 [facility] Comment on above: Order Comment: Speci men Type: BLOOD SPECIMEN Ordering Facility: [facility] ([facility]) Address: [address] [place] [address] Performed By: #### 2 4322-10, 1987-07 #### [facility] CLIA [id number] [address] [place] [address] [place] CRP [facility] 03-14-2024 CRP [Mass/Vol] 0.4 mg/dL Normal <0.9 [facility] Comment on above: Order Comment: Speci men Type: BLOOD SPECIMENOrdering Facility: [facility] Address: [address] [place] [address] Performed By: #### 2 4328, 1987-07, ####[facility] LABCLIA [id number] [facility] [address] [address] [place] [facility] Comprehensive metabolic 2000 panelon 03-14-2024 Albumin [Mass/Vol] 4.4 g/dL Normal 3.9-4.9 [facility] Comment on above: Order Comment: Speci men Type: BLOOD SPECIMENOrdering Facility: [facility] Address: [address] [place] [address] Performed By: #### 2 43206-02, 1987-07, ####[facility] LABCLIA [id number] [facility] [address] [address] [place] ALP [Catalytic activity/Vol] 83 U/L Normal 34-123 [facility] Comment on above: Order Comment: Speci men Type: BLOOD SPECIMENOrdering Facility: [facility] Address: [address] [place] [address] Performed By: #### 2 43206-02, 1987-07, ####[facility] LABCLIA [id number] [facility] [address] [address] [place] ALT [Catalytic activity/Vol] 23 U/L Normal 7-38 [facility] Comment on above: Order Comment: Speci men Type: BLOOD SPECIMENOrdering Facility: [facility] Address: [address] [place] [address] Performed By: #### 2 4328, 1987-07, ####[facility] LABCLIA [id number] [facility] [address] [address] [place] Anion gap [Moles/Vol] 12 mmol/L Normal 8-15 [facility] Comment on above: Order Comment: Speci men Type: BLOOD SPECIMENOrdering Facility: [facility] Address: [address] [place] [address] Performed By: #### 2 4323-8, 1987-07, ####[facility] LABCLIA [id number] [place] [id number] [place] AST [Catalytic activity/Vol] 24 U/L Normal 13-35 [facility] Comment on above: Order Comment: Speci men Type: BLOOD SPECIMENOrdering Facility: [facility] Address: [address] [place] [address] Performed By: #### 2 4323-8, 1987-07, ####[facility] LABIA [id number] [place] [address] [place] Bilirubin [Mass/Vol] 0.2 mg/dL Normal 0.2-1.3 [facility] Comment on above: Order Comment: Speci men Type: BLOOD SPECIMENOrdering Facility: [facility] Address: [address] [place] [address] Performed By: #### 2 4323-8, 1987-07, ####[facility] LABIA [id number] [place] [address] [place] Calcium [Mass/Vol] 10.6 mg/dL High 8.5-10.2 [facility] Comment on above: Order Comment: Speci men Type: BLOOD SPECIMENOrdering Facility: [facility] Address: [address] [place], [place] [address] Performed By: #### 2 4323-8, 1987-07, ####[facility] LABIA [id number] [place] [id number] [place] Chloride [Moles/Vol] 103 mmol/L Normal 98-107 [facility] Comment on above: Order Comment: Speci men Type: BLOOD SPECIMENOrdering Facility: [facility] Address: [address] [place], [place] [address] Performed By: #### 2 43238, ####[facility] LABCLIA [id number] [place] [address] [place] CO2 [Moles/Vol] 23 mmol/L Normal 22-30 [facility] Comment on above: Order Comment: Speci men Type: BLOOD SPECIMENOrdering Facility: [facility] Address: [address] [place] [address] Performed By: #### 2 4328, 1987-07, ####[facility] LABIA [id number] [place] [address] [place] Creatinine [Mass/Vol] 0.69 mg/dL Normal 0.58-0.96 [facility] Comment on above: Order Comment: Speci men Type: BLOOD SPECIMENOrdering Facility: [facility] Address: [address] [place] [address] Performed By: #### 2 4328, ####[facility] LABIA [id number] [place] [address] [place] Creatinine and Glomerular filtration rate.predicted panel (S/P/Bld) 103 mL/min/1.73m??? Normal >=60 [facility] Comment on above: Order Comment: Speci men Type: BLOOD SPECIMENOrdering Facility: [facility] Address: [address] [place] [address] Result Comment: Linda mated Glomerular Filtration Rate (eGFR) is calculated using the 2020 CKD-EPI creatinine equation. This equation utilizes serum creatinine, sex, and age as parameters. The creatinine assay has traceable calibration to isotope dilution-mass spectrometry. Refer to KDIGO guidelines for clinical interpretation. In patients with unstable renal function, e.g. those with acute kidney injury, the eGFR may not accurately reflect actual GFR. Performed By: #### 2 4323-8, 1987-07, ####[facility] LAB[facility] [id number] [place] [address] [place] Glucose [Mass/Vol] 137 mg/dL High 74-99 [facility] Comment on above: Order Comment: Speci men Type: BLOOD SPECIMENOrdering Facility: [facility] Address: [address] [place] [address] Result Comment: The [place] Diabetes Association (ADA) provides guidance for cutoff values for fasting glucose and random glucose. The ADA defines fasting as no caloric intake for at least 8 hours. Fasting plasma glucose results between 100 to 125 [...] Standards of Medical Care in Diabetes 2016, [place] [employer]. Diabetes Care. 2016.39(Suppl 1). Performed By: #### 2 43206-02, ####[facility] [id number] [place] [address] [place] Potassium [Moles/Vol] 4.4 mmol/L Normal 3.7-5.1 [facility] Comment on above: Order Comment: Speci men Type: BLOOD SPECIMENOrdering Facility: [facility] Address: [address] [place] [address] Performed By: #### 2 43206-02, ####[facility] [id number] [place] [address] [place] Protein [Mass/Vol] 7.1 g/dL Normal 6.3-8.0 [facility] Comment on above: Order Comment: Speci men Type: BLOOD SPECIMENOrdering Facility: [facility] Address: [address] [place] [address] Performed By: #### 2 43206-02, ####[facility] [id number] [address] [address] [place] Sodium [Moles/Vol] 138 mmol/L Normal 136-144 [facility] Comment on above: Order Comment: Cherry carter Type: BLOOD SPECIMENOrdering Facility: [facility] Address: [address] [place] [address] Performed By: #### 2 43206-02, 1987-07, ####[facility] LABCLIA [id number] [place] [address] [place] Urea nitrogen [Mass/Vol] 12 mg/dL Normal 7-21 [facility] Comment on above: Order Comment: Sanjuanitai men Type: BLOOD SPECIMENOrdering Facility: [facility] [place] Address: [address] [place] [address] Performed By: #### 2 4322-10, 1987-07, ####[facility] LABCLIA [id number] [place] [id number] [place] HbA1c (Bld)on 03-14-2024 Average glucose Estimated from glycated hemoglobin (Bld) [Mass/Vol] 189 mg/dL Normal [facility] Comment on above: Order Comment: Cherry carter Type: BLOOD SPECIMEN Ordering Facility: [facility] Address: [address] [place] [address] Result Comment: eAG: (Estimated average glucose) is a calculated value from HgbA1c and is associate financial representative of the average blood glucose level in the last 2-3 month period. Performed By: #### 2 4328, 1987-07 #### [facility] CLIA [id number] [address] [place] [address] [place] HbA1c (Bld) [Mass fraction] 8.2 % High 4.3-5.6 [facility] Comment on above: Order Comment: Sanjuanitai men Type: BLOOD SPECIMEN Ordering Facility: [facility] Address: [address], [place] [address] Result Comment: Amer ican Diabetes Association guidelines indicate that patients with HgbA1c in the range 5.7-6.4% are at increased risk for development of diabetes, and intervention by lifestyle modification may be beneficial. HgbA1c greater or equal to 6.5% is considered diagnostic of diabetes. Performed By: #### 2 4323, 1987-07 #### [facility] CLIA [id number] [address] [place] [address] [place] Lipid 1996 panelon 4 Cholesterol [Mass/Vol] 208 mg/dL High <200 [facility] Comment on above: Order Comment: Cherry carter Type: BLOOD SPECIMENOrdering Facility: [facility] [place] Address: [address] [place] [address] Result Comment: <200 mg/dL, Desirable 200-239 mg/dL, Borderline high >239 mg/dL, High Performed By: #### 2 43206-02, 1987-07, ####[facility] LABCLIA [id number] [address] [place] Cholesterol in HDL [Mass/Vol] 38 mg/dL Low >39 [facility] Comment on above: Order Comment: Cherry carter Type: BLOOD SPECIMENOrdering Facility: [facility] [place] Address: [address] [place] [address] Result Comment: 40-5 9 mg/dL, Acceptable >59 mg/dL, High: Negative risk factor for coronary heart disease <40 mg/dL, Low: Positive risk factor for coronary heart disease Performed By: #### 2 4328, 1987-07, ####[facility] LABCLIA [id number] [address] [place] Cholesterol in LDL [Mass/Vol] 100 mg/dL High <100 [facility] Comment on above: Order Comment: Cherry carter Type: BLOOD SPECIMENOrdering Facility: [facility] [place] Address: [address] [place] [address] Result Comment: <100 mg/dL, Optimal 100-129 mg/dL, Near optimal/above optimal 130-159 mg/dL, Borderline high 160-189 mg/dL, High >189 mg/dL, Very high Secondary prevention optimal LDL Cholesterol levels are recommended to be < 70 mg/dL Performed By: #### 2 4322-10, 1987-07, ####[facility] LABCLIA [id number] [address] [address] [place] Cholesterol in LDL/Cholesterol in HDL [Mass ratio] 2.63 {ratio} High <2.54 [facility] Comment on above: Order Comment: Speci men Type: BLOOD SPECIMENOrdering Facility: [facility] [place] Address: [address] [place] [address] Result Comment: Refe rence: 1. National Cholesterol Education Program ATP III Guideline At-A-Glance Quick Desk Reference: National Heart, Lung, and Blood [place]. National Institutes of Health. 2001: NIH Publication No. 01-3305. 2. An International Atherosclerosis Society position paper: global recommendations for the management of dyslipidemia: executive summary, Atherosclerosis. 2014: 232(2):410-413. Performed By: #### 2 43206-02, 1987-07, ####[facility] LABIA [id number] [place] [address] [place] Cholesterol in VLDL [Mass/Vol] 70 mg/dL High <30 [facility] Comment on above: Order Comment: Speci men Type: BLOOD SPECIMENOrdering Facility: [facility] [place] Address: [address] [place] [address] Performed By: #### 2 8, 1987-07, ####[facility] LABIA [id number] [place] [address] [place] Cholesterol non HDL [Mass/Vol] 170 mg/dL High <130 [facility] Comment on above: Order Comment: Sanjuanitai men Type: BLOOD SPECIMENOrdering Facility: [facility] [place] Address: [address] [place] [address] Result Comment: <130 mg/dL, Optimal 130-159 mg/dL, Near optimal/above optimal 160-189 mg/dL, Borderline high 190-219 mg/dL, High >219 mg/dL, Very high Secondary prevention optimal non HDL Cholesterol levels are recommended to be <100 mg/dL Performed By: #### 2 4323-8, 1987-07, ####[facility] LABCLIA [id number] [address] [address] [place] Cholesterol.total/Chol esterol in HDL [Mass ratio] 5.47 {ratio} High <5.10 [facility] Comment on above: Order Comment: Speci men Type: BLOOD SPECIMENOrdering Facility: [facility] [place] Address: [address] [place] [address] Performed By: #### 2 4328, 1987-07, ####[facility] LABCLIA [id number] [address] STATES OF [facility] FASTING TIME 12 hrs Normal [facility] Comment on above: Order Comment: Speci men Type: BLOOD SPECIMENOrdering Facility: [facility] [place] Address: [address] [place] [address] Performed By: #### 2 4328, 1987-07, ####[facility] LABCLIA [id number] [place] [address] [place] Triglyceride [Mass/Vol] 350 mg/dL High <150 [facility] Comment on above: Order Comment: Speci men Type: BLOOD SPECIMENOrdering Facility: [facility] [place] Address: [address] [place] [address] Result Comment: <150 mg/dL, Normal 150-199 mg/dL, Borderline high 200-499 mg/dL, High >499 mg/dL, Very high Performed By: #### 2 43238, 1987-07, ####[facility] LABCLIA [id number] [address] [address] [place] 03-12-2024 CNPN Telephone (INTWS) JAROD RODARTE ([id number]) 1970 F Date Time Provider Department 03/12/24 GELA MEDINA During your visit today, we recorded the following information about you: Anjelica Morales, JIMY 03/12/2024 1:57 PM Signed Jossie from [facility] calls asking for medication clarification for patient's Humalog. There is two different sets of instruction on the script. Jossie also is needing a maximum dose per day for medication. Please review and advise, JIMY Samuels Joy, APRN.HAYLEE 03/12/2024 3:38 PM Signed I only refilled what was already there. Please call patient and clarify humalog dosage and how much she thinks she is taking on a regular basis for sliding scale. Thank you Gela Medina APRN.Tayler Lopez RN 03/12/2024 4:55 PM Signed Pt states she takes 22 units of Humalog insulin TID with each meal, she states she never has to take a sliding scale with that. 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 Pt states she has been taking the 22 units TID for about 2-3 months now, before that she was on 21 units, then 16 units, and 5 units. She states she has been seeing Endocrinology and they have been talking about putting her on an insuline pump, but she doesn't see them again until March. Gela Medina APRN.HAYLEE 03/14/2024 10:01 AM Signed Noted. Gela Medina APRN.Anjelica Davila, JIMY 03/15/2024 1:16 PM Signed Patient calls and states that max dose per day is about 66 units. Patient states that she uses 21-22 units TID. Patient states that this keeps her from having to use the sliding scale. Patient asking if this can be called into pharmacy so that she is able to get Humalog ([facility]). JIMY Samuels Amanda, RN 03/15/2024 1:21 PM Signed Sue with [facility] called in and reports Pt is out of insulin and is asking if this could be called in today. Gela Medina APRN.CNP 03/15/2024 2:51 PM Signed Please call [facility] and find out what is missing. I sent these in 3 days ago. Thank you BELIA Dunbar Joy, APRN.CNP 03/15/2024 3:00 PM Signed This has been sent again since ned denies getting it as ordered 3 days ago. Please call and verify this has lea through this time and then let patient know as well. Thank you BELIA Dunbar Joy, APRN.CNP 03/15/2024 3:00 PM Signed Addended by: GELA MEDINA on: 03/15/2024 03:00 PM Modules accepted: Orders Destiney Briceno MA 03/15/2024 3:25 PM Signed Confirmed with Pharmacy RX was received. Allergies As of Date: 03/12/2024 Noted Allergy Reaction PENICILLIN G 04/18/2013 7 - Swelling REQUIP (ROPINIROLE) 04/18/2013 14 - Other: See Comments Comments: seizures ENBREL (ETANERCEPT) 12/19/2023 14 - Other: See Comments Comments: Palpitations JARDIANCE (EMPAGLIFLOZIN) 01/02/2020 14 - Other: See Comments Comments: Yeast infections WELLBUTRIN (BUPROPION HCL) 08/08/2019 2 - Rash Date Reviewed: 02/17/2024 Reviewed by: Marleni Coronel, JIMY - Fully Assessed Reason for Visit: Medication Clarification [Other] Order(s):insulin lispro (HUMALOG KWIKPEN INSULIN) 100 unit/mLInject 22 Units subcutaneously three times a day before meals. Inject 21 units with meals plus SS#2 (2 units for every 50 over 150) (1 units for every 10 grams of carbs). Limit of 75 units dailyDisp: 10 EachRfl: 1 Prescriptions as of 03/15/2024 - insulin lispro (HUMALOG KWIKPEN INSULIN) 100 unit/mL Inject 22 Units subcutaneously three times a day before meals. Inject 21 units with meals plus SS#2 (2 units for every 50 over 150) (1 units for every 10 grams of carbs). Limit of 75 units daily - amLODIPine (NORVASC) 5 mg tablet Take 1 tablet by mouth once daily. - atenolol (TENORMIN) 50 mg tablet Take 1 tablet by mouth once daily. - atorvastatin (LIPITOR) 20 mg tablet Take 1 tablet by mouth once daily. - fenofibrate nanocrystallized (TRICOR) 145 mg tablet Take 1 tablet by mouth once daily. - montelukast (SINGULAIR) 10 mg tablet Take 1 tablet by mouth daily at bedtime. - omeprazole (PRILOSEC) 40 mg capsule Take 1 capsule by mouth once daily. - Blood-Glucose Transmitter (DEXCOM G6 TRANSMITTER) catracho 1 Each continuous. - folic acid 1 mg tablet Take 3 mg by mouth once daily. - hydrOXYchloroQUINE (PLAQUENIL) 200 mg tablet Take 2 tablets by mouth once daily. - methotrexate 2.5 mg tablet Take 17.5 mg by mouth every Tuesday. - nabumetone (RELAFEN) 750 mg tablet Take 750 mg by mouth two times a day. - ORENCIA CLICKJECT 125 mg/mL auto-injector Inject 1 mL subcutaneously one time a week. - Insulin Bradford, Disposable, (BD ULTRAFINE III MINI PEN) 31 gauge x 3/16 Use with insulin injection 2 times daily - Blood-Glucose Sensor (DEXCOM G6 SENSOR) catracho Change sensor every 10 days. USE FOR CONTINUOUS GLUCOSE MONITORING. MULTIPLE INSUL (more content not included)... Normal [facility] 36on 03-06-2024 36 Please advise pt - i t may be that she is having an upper respiratory infection and would temporarily hold orencia if she has a fever or productive cough. Would give the orencia 2-3 months total to see how it does for arthritis before changing it, but I can look for something different if she really doesn't want to take the orencia. Normal [facility] 36on 03-05-2024 36 S: Patient spoke wit h [facility] nurse regarding medication problem B: Onset of symptoms/concern 01/30/24 A: Patient states they took 2nd dose of Orencia on 02/24/24. States on Tuesday they noted a cough with some mild wheezing and an airy feeling in chest. States took 3rd dose of Orencia on 03/02/24. States cough worse since taking 3rd dose. States has chronic rhinorrhea and sinus issues which they attribute to allergies. Denies rash, denies swelling of tongue, face or lips, denies fever, denies shortness of breath, denies chest pain. R: Please call patient [phone] to advise if they should continue Orencia due to possible adverse reaction. Patient understands care advice that a message will be sent to office for review and follow-up. No further needs at this time. Patient instructed to call back with new or worsening symptoms. Reason for Disposition Caller has URGENT medicine question about med that PCP or specialist prescribed and triager unable to answer question Protocols used: Medication Question [facility]24 [facility] Telephone (ENWSTR) JAROD RODARTE ([id number]) 1970 F Date Time Provider Department 03/02/24 AMADA GANDHI ENWSTR During your visit today, we recorded the following information about you: Malathi Young 03/02/2024 8:11 AM Signed Patient called said she has been going through her insulin faster than she should because her sugar is not stable patient is requesting more units and or more pens Please advise Cathy Dunn MA 03/02/2024 8:30 AM Signed Dexcom information down loaded Amada Gandhi MD 03/05/2024 1:11 PM Signed Please advise increasing Toujeo to 58 Units twice daily (Currently on 56 units BID) Cathy Dunn MA 03/05/2024 2:11 PM Signed Phoned patient as requested. Patient understands to increase Toujeo to 58 units 2 times daily. Patient reports no other questions. Cathy Dunn MA Allergies As of Date: 03/02/2024 Noted Allergy Reaction PENICILLIN G 04/18/2013 7 - Swelling REQUIP (ROPINIROLE) 04/18/2013 14 - Other: See Comments Comments: seizures ENBREL (ETANERCEPT) 12/19/2023 14 - Other: See Comments Comments: Palpitations JARDIANCE (EMPAGLIFLOZIN) 01/02/2020 14 - Other: See Comments Comments: Yeast infections WELLBUTRIN (BUPROPION HCL) 08/08/2019 2 - Rash Date Reviewed: 02/17/2024 Reviewed by: Marleni Coronel RN - Fully Assessed Reason for Visit: Medication Problem [65] Cmt: Insulin pens Prescriptions as of 03/05/2024 - amLODIPine (NORVASC) 5 mg tablet Take 1 tablet by mouth once daily. - atenolol (TENORMIN) 50 mg tablet Take 1 tablet by mouth once daily. - atorvastatin (LIPITOR) 20 mg tablet Take 1 tablet by mouth once daily. - fenofibrate nanocrystallized (TRICOR) 145 mg tablet Take 1 tablet by mouth once daily. - montelukast (SINGULAIR) 10 mg tablet Take 1 tablet by mouth daily at bedtime. - omeprazole (PRILOSEC) 40 mg capsule Take 1 capsule by mouth once daily. - Blood-Glucose Transmitter (DEXCOM G6 TRANSMITTER) catracho 1 Each continuous. - folic acid 1 mg tablet Take 3 mg by mouth once daily. - hydrOXYchloroQUINE (PLAQUENIL) 200 mg tablet Take 2 tablets by mouth once daily. - methotrexate 2.5 mg tablet Take 17.5 mg by mouth every Tuesday. - nabumetone (RELAFEN) 750 mg tablet Take 750 mg by mouth two times a day. - ORENCIA CLICKJECT 125 mg/mL auto-injector Inject 1 mL subcutaneously one time a week. - Insulin Bradford, Disposable, (BD ULTRAFINE III MINI PEN) 31 gauge x 3/16 Use with insulin injection 2 times daily - Blood-Glucose Sensor (DEXCOM G6 SENSOR) catracho Change sensor every 10 days. USE FOR CONTINUOUS GLUCOSE MONITORING. MULTIPLE INSULIN INJECTIONS. E11.9 - gabapentin (NEURONTIN) 100 mg capsule Take 1 capsule by mouth two times a day for 180 days. Take one in AM and one in afternoon. Take the 300mg before bed. - gabapentin (NEURONTIN) 300 mg capsule Take 1 capsule by mouth daily at bedtime for 180 days. - metFORMIN (GLUCOPHAGE) 1,000 mg tablet Take 1 tablet by mouth two times a day with meals. - losartan (COZAAR) 100 mg tablet TAKE ONE-HALF TABLET BY MOUTH ONCE DAILY - insulin lispro (HUMALOG KWIKPEN INSULIN) 100 unit/mL Inject 21 units with meals plus SS#2 (2 units for every 50 over 150) (1 units for every 10 grams of carbs) - insulin glargine U-300 conc (TOUJEO MAX U-300 SOLOSTAR) 300 unit/mL (3 mL) inpn Inject subcutaneously 112 units daily - semaglutide (OZEMPIC) 0.25 mg or 0.5 mg (2 mg/3 mL) pen Inject 0.5 mg subcutaneously one time a week. - venlafaxine ER (EFFEXOR XR) 150 mg 24 hr capsule Take 1 capsule by mouth once daily. - venlafaxine ER (EFFEXOR XR) 75 mg 24 hr capsule Take 1 capsule by mouth once daily. - ferrous sulfate 325 mg (65 mg iron) tablet Take 1 tablet by mouth every other day. - pramipexole (MIRAPEX) 0.125 mg tablet take 1 tablet by mouth every evening if needed for RESTELESS LEGS - pramipexole (MIRAPEX) 0.5 mg tablet Take 1 tablet by mouth once daily. - naproxen (NAPROSYN) 500 mg tablet Take 1 tablet by mouth two times a day as needed. - Blood-Glucose Transmitter (ShareMeister G6 TRANSMITTER) catracho Change transmitter every 3 months - continuous glucose monitor, multiple insulin injections E-11.9 - hydrOXYzine HCl (ATARAX) 25 mg tablet Take 1 tablet by mouth three times a day as needed for anxiety. - blood sugar diagnostic (ONETOUCH ULTRA TEST) test strip Test blood sugar(s) 4 times daily. Dx: Type 2 DM - Controlled E11.9 , Insulin: Yes - Lancets (ONETOUCH ULTRASOFT LANCETS) lancets Test blood sugar(s) 4 times daily. Dx: Type 2 DM - Controlled E11.9 , Insulin: Yes - famotidine (PEPCID) 20 mg tablet Take 1 tablet by mouth at bedtime as needed. - glucagon (GLUCAGON EMERGENCY KIT, HUMAN,) 1 mg injection Inject (1)one mg for insulin shock. - Blood-Glucose Meter,Continuous (DEXCOM G6 [employer]ER) misc 1 Each continuous. - ondansetron orally d (more content not included)... Normal [facility] CNOVon 02-17-2024 CNOV Office Visit (ENWSTR ) JAROD RODARTE ([id number]) 1970 F Date Time Provider Department 02/17/24 12:00 PM AMADA GANDHI ENWSTR During your visit today, we recorded the following information about you: Pulse Respiration Blood pressure Weight 88/minute 20/minute 148/78 89 kg Height 1.651 m Amada Gandhi MD 02/17/2024 10:43 PM Signed [facility] Follow up note Referred by: Gela medina APRN.HAYLEE Chief complaint: MAKAYLA History of present illness: This is a 53 year old female with MAKAYLA, HTN, HLD, RA, Reynaud's, IBS who is presenting for follow up evaluation and management of diabetes. She is accompanied by her fiance today She was initially diagnosed in 2009 as Type 2, and then diagnosed as MAKAYLA in 03/2022 after antibodies on labs by Katharine Dejesus APRN. CNP who she was seeing so far since Mar 2022 via [facility] She reports she has not been on steroids for RA or lupus as she knows they can have bad effects on her sugars Denies any micro or macrovascular complications from diabetes Complications: Cardiovascular -- Yes HTN, HLD Statin Use -- Yes Retinopathy -- No Last AZALEA/Retina Eval: May 2023 Nephropathy -- Yes MANDY/ARB Use -- Yes Polyneuropathy -- No Foot Exam: not sure Obesity -- Yes Other -- No Symptoms/concerns today She always is feeling thirsty Reports she has done well on enbrel until she has side effect of Afib leading to discontinuation. Reports of persistent joint pains. She is waiting initiation of new medication for RA, which is given weekly . Diabetes Medications -Current regimen: Humalog 22 units with sliding scale starting at 150 mg/dl Toujeo 112 units daily in am Ozempic 1 mg weekly- could not tolerate- went back to 0.5 mg weekly, now again at 1 mg weekly -Misses doses: None She is rotating injection sites but mostly takes in abdomen -Previously Used DM Meds Victoza Metformin . Blood sugars : Patient did not bring her reader, neither has accepted sharing data with clinic- link sent- but data could be downloaded after she has left clinic Summary of Personal CGM Findings: Jan 19, 2024 to Feb 17, 2024 Type of CGM: [employer] G7 1) CGM recording is adequate for interpretation. Worn 100% of time. 2) Average glucose is 187 mg/dL. BG range/St. Dev: 37 mg/dL 3) 41% time in range 70-180 mg/dL 4) Total frequency of hypoglycemia: 0% with BG < 70 - Hypoglycemia patterns: 0 - Nocturnal hypoglycemia was NOT noted 5) Hyperglycemic episodes 59% with BG > 180 - Hyperglycemia patterns: throughout day, small postprandial spike for breakfast, lunch and dinner Interpretation: could not be done when patient is in, but she is advised to take lispro atleast 30 mins in advance, and choose foods with low GI . Hypoglycemia -Hypoglycemic episodes: none in the last few months -Frequency and timing of hypoglycemia: n/a -Hypoglycemia awareness: yes, feels diaphoretic, fogginess, shakiness . Lifestyle -Exercise: no -Diet: 3 meals a day Tries to eat healthy, watches diet closely She has seen diabetes education initially- does not prefer using carb counting - estimates required insulin dosing with portion size . Blood pressure -Today BP: 142/82 -Current antihypertensive therapy: Losartan 100 mg once daily, amlodipine 5 mg once daily, atenolol 50 mg once daily . Lipids -Last lipid panel: 02/2023 -Currently on Statin therapy: Losartan 20 mg once daily -Statin associated side effects: Tolerating well ROS: As per HPI Past Medical History PAST MEDICAL HISTORY Diagnosis Date De Quervain's tenosynovitis, bilateral Depression with anxiety Diabetes (HCC) Fibromyalgia Hypercholesterolemia Hypertension IBS (irritable bowel syndrome) Raynaud's disease Restless legs syndrome (RLS) Past Surgical History PAST SURGICAL HISTORY Procedure Laterality Date CONE OF CERVIX LOOPELEC EXCIS EXTRACTION, ERUPTED TOOTH OR EXPOSED ROOT (ELEVATION AND/OR FORCEPS REMOVAL) [place] teeth x 4 HYSTERECTOMY HX precervical cancer, removed cervix KNEE SURGERY HX 4x right and left x4 Family History FAMILY HISTORY Problem Relation Age of Onset Hypertension Mother Breast Cancer Mother other (raynaud) Mother Parkinson?s Disease Father Hyperlipidemia Father Arthritis Father Breast Cancer Maternal Grandmother other (Thrombosis) Maternal Grandfather COPD Paternal Grandmother Coronary Artery Disease Paternal Grandmother Coronary Artery Disease Paternal Grandfather other (Tensas Disease) Maternal Aunt Cervical Cancer Paternal Aunt Heart Paternal Aunt Factor 5 Leiden Paternal cousin Social History Social History Tobacco Use Smoking status: Every Day Current packs/day: 0.50 Average packs/day: 0.5 packs/day for 31.0 years (15.5 ttl pk-yrs) Types: Cigarettes Smokeless tobac (more content not included)... [facility] (ENWSTR) JAROD RODARTE ([id number]) 1970 F Date Time Provider Department 02/17/24 AMADA GANDHIWSGARY During your visit today, we recorded the following information about you: Oliva Beatty 02/17/2024 12:59 PM Signed Patient is calling to report she got her clarity up and running for her dex com and can check her report. Marleni Coronel, JIMY 02/17/2024 1:29 PM Signed 30-day Dexcom Clarity report pulled into today's OV encounter. Dr. Gandhi notified. Marleni Coronel RN February 17, 2024 1:29 PM Allergies As of Date: 02/17/2024 Noted Allergy Reaction PENICILLIN G 04/18/2013 7 - Swelling REQUIP (ROPINIROLE) 04/18/2013 14 - Other: See Comments Comments: seizures ENBREL (ETANERCEPT) 12/19/2023 14 - Other: See Comments Comments: Palpitations JARDIANCE (EMPAGLIFLOZIN) 01/02/2020 14 - Other: See Comments Comments: Yeast infections WELLBUTRIN (BUPROPION HCL) 08/08/2019 2 - Rash Date Reviewed: 02/17/2024 Reviewed by: Marleni Coronel RN - Fully Assessed Reason for Visit: Patient Update [1234] Prescriptions as of 02/17/2024 - folic acid 1 mg tablet Take 3 mg by mouth once daily. - hydrOXYchloroQUINE (PLAQUENIL) 200 mg tablet Take 2 tablets by mouth once daily. - methotrexate 2.5 mg tablet Take 17.5 mg by mouth every Tuesday. - nabumetone (RELAFEN) 750 mg tablet Take 750 mg by mouth two times a day. - ORENCIA CLICKJECT 125 mg/mL auto-injector Inject 1 mL subcutaneously one time a week. - Insulin Bradford, Disposable, (BD ULTRAFINE III MINI PEN) 31 gauge x 3/16 Use with insulin injection 2 times daily - Blood-Glucose Sensor (ShareMeister G6 SENSOR) catracho Change sensor every 10 days. USE FOR CONTINUOUS GLUCOSE MONITORING. MULTIPLE INSULIN INJECTIONS. E11.9 - gabapentin (NEURONTIN) 100 mg capsule Take 1 capsule by mouth two times a day for 180 days. Take one in AM and one in afternoon. Take the 300mg before bed. - gabapentin (NEURONTIN) 300 mg capsule Take 1 capsule by mouth daily at bedtime for 180 days. - metFORMIN (GLUCOPHAGE) 1,000 mg tablet Take 1 tablet by mouth two times a day with meals. - losartan (COZAAR) 100 mg tablet TAKE ONE-HALF TABLET BY MOUTH ONCE DAILY - insulin lispro (HUMALOG KWIKPEN INSULIN) 100 unit/mL Inject 21 units with meals plus SS#2 (2 units for every 50 over 150) (1 units for every 10 grams of carbs) - insulin glargine U-300 conc (TOUJEO MAX U-300 SOLOSTAR) 300 unit/mL (3 mL) inpn Inject subcutaneously 112 units daily - semaglutide (OZEMPIC) 0.25 mg or 0.5 mg (2 mg/3 mL) pen Inject 0.5 mg subcutaneously one time a week. - venlafaxine ER (EFFEXOR XR) 150 mg 24 hr capsule Take 1 capsule by mouth once daily. - omeprazole (PRILOSEC) 40 mg capsule Take 1 capsule by mouth once daily. - venlafaxine ER (EFFEXOR XR) 75 mg 24 hr capsule Take 1 capsule by mouth once daily. - ferrous sulfate 325 mg (65 mg iron) tablet Take 1 tablet by mouth every other day. - pramipexole (MIRAPEX) 0.125 mg tablet take 1 tablet by mouth every evening if needed for RESTELESS LEGS - pramipexole (MIRAPEX) 0.5 mg tablet Take 1 tablet by mouth once daily. - naproxen (NAPROSYN) 500 mg tablet Take 1 tablet by mouth two times a day as needed. - Blood-Glucose Transmitter (DEXCOM G6 TRANSMITTER) catracho Change transmitter every 3 months - continuous glucose monitor, multiple insulin injections E-11.9 - Blood-Glucose Transmitter (DEXCOM G6 TRANSMITTER) catracho 1 Each continuous. - hydrOXYzine HCl (ATARAX) 25 mg tablet Take 1 tablet by mouth three times a day as needed for anxiety. - blood sugar diagnostic (ONETOUCH ULTRA TEST) test strip Test blood sugar(s) 4 times daily. Dx: Type 2 DM - Controlled E11.9 , Insulin: Yes - Lancets (ONETOUCH ULTRASOFT LANCETS) lancets Test blood sugar(s) 4 times daily. Dx: Type 2 DM - Controlled E11.9 , Insulin: Yes - famotidine (PEPCID) 20 mg tablet Take 1 tablet by mouth at bedtime as needed. - montelukast (SINGULAIR) 10 mg tablet Take 1 tablet by mouth daily at bedtime. - amLODIPine (NORVASC) 5 mg tablet Take 1 tablet by mouth once daily. - atenolol (TENORMIN) 50 mg tablet Take 1 tablet by mouth once daily. - atorvastatin (LIPITOR) 20 mg tablet Take 1 tablet by mouth once daily. - fenofibrate nanocrystallized (TRICOR) 145 mg tablet Take 1 tablet by mouth once daily. - glucagon (GLUCAGON EMERGENCY KIT, HUMAN,) 1 mg injection Inject (1)one mg for insulin shock. - Blood-Glucose Meter,Continuous (DEXCOM G6 [employer] SCI[employer] TEACHER) misc 1 Each continuous. - ondansetron orally disintegrating (ZOFRAN ODT) 4 mg disintegrating tablet Take 1 tablet by mouth every 6 hours as needed for nausea/vomiting. - celecoxib (CELEBREX) 200 mg capsule Take 200 mg by mouth every morning. - diclofenac (VOLTAREN) 1 % topical gel Apply 2 g to affected area four times daily. - triamcinolone acetonide (NASACORT AQ) 55 mc (more content not included)... Normal [facility] GLOOKO ON DEMANDon Ordered by an unspec ified provider. [facility] HEMOGLOBIN A1C (POC)on 02-16 HbA1c (Bld) [Mass fraction] 8.7 % Abnormal 4.3 - 5.6 % [facility] Comment on above: Location:[facility], [address], [place], [address] Point of care (POC) Hemoglobin A1c (HGBA1C) testing is intended to assess glucose control and provide a management tool for patients known to have diabetes and their healthcare providers. Target HGBA1C levels may depend on specific clinical circumstances. POC HGBA1C is not intended for use as a diagnostic or screening test; laboratory-based testing should be used for diagnostic purposes. The following information is supplemental and may not be applicable to specific diabetes management situations: The POC device contact lens manufacturer provides a normal range of 4.2% to 6.5% for the HGBA1C POC test. However, the [place] [employer] guidelines indicate that patients with HGBA1C in the range of 5.7% to 6.4% are at increased risk for development of diabetes and that intervention by lifestyle modification may be beneficial. A HGBA1C level greater than or equal to 6.5% is considered diagnostic of diabetes, pending confirmatory testing. Use of HGBA1C testing to evaluate glucose control may not be appropriate for patients with hemoglobin variants or other conditions (e.g. anemia) that alter red blood cell lifespan. Interpretation and review of laboratory results Abnormal [facility] CNOVon 02-15-2024 CNOV Office Visit (INTMWS ) JAROD RODARTE ([id number]) 1970 F Date Time Provider Department 02/15/24 3:00 PM OLDER, EGLA ORELLANA During your visit today, we recorded the following information about you: Pulse Respiration Blood pressure Weight 85/minute 16/minute 136/78 88.9 kg OlderGela APRN.CNP 02/15/2024 4:03 PM Signed CC: Patient presents with: Recheck: 3 month DM follow up HPI Jarod Rodaret is a 53 year old female who presents today for routine follow up. DIABETES MELLITUS: Ms. Rodarte denies chest pain or dyspnea , numbness, tingling or pain in extremities, new or unusual visual symptoms, low sugar/hypoglycemic reactions, weight loss/gain, lightheadedness/dizziness, and bowel changes/loose stools. Does have increased thirst. Follows a diabetic diet most of the time. She is compliant with medication(s) and is tolerating med(s) without any side effects. She reports checking her glucose on a CGM schedule with sugars in the 200s range and in the last few weeks increased her insulin with meals. Has appointment in endocrinology to get started on insulin pump in 2 months but getting on cancellation list in hopes to be seen earlier. Patient's last HgA1C was Hemoglobin A1C (%) Date Value 03/26/2023 7.0 01/06/2023 6.3 01/12/2021 7.9 07/17/2020 8.2 Hemoglobin A1C (POCT) (%) Date Value 11/10/2023 8.5 04/14/2022 8.5 ) HTN and HLD: Ms. Rodarte indicates that she is feeling well and denies any symptoms referable to elevated blood pressure. Specifically denies headache, chest pain, dyspnea, and peripheral edema. Patient denies any side effects of her medication(s) and is compliant with their regimen. She watches her diet for sodium, low fat and low cholesterol most of the time. Palpitations that were intense with enbrel usage have improved greatly. Still with occasional Spikes of tachycardia noted on her tech watch but do not last long and she is asymptomatic. With heart monitor showing some 1st degree AV block and bursts of SVT. Currently on a beta rico and establishing with cardiology next month. With the symptoms improving, have not increased atenolol at this time. Patient had previously reported MVP but not noted on recent ECHO. Last 3 Encounter BP Readings: Date: BP: 02/15/2024 136/78 12/19/2023 132/82 11/10/2023 132/80 REVIEW OF SYSTEMS See HPI PAST MEDICAL HISTORY Diagnosis Date De Quervain's tenosynovitis, bilateral Depression with anxiety Diabetes (HCC) Fibromyalgia Hypercholesterolemia Hypertension IBS (irritable bowel syndrome) Raynaud's disease Restless legs syndrome (RLS) PAST SURGICAL HISTORY Procedure Laterality Date CONE OF CERVIX LOOPELEC EXCIS EXTRACTION, ERUPTED TOOTH OR EXPOSED ROOT (ELEVATION AND/OR FORCEPS REMOVAL) [place] teeth x 4 HYSTERECTOMY HX precervical cancer, removed cervix KNEE SURGERY HX 4x right and left x4 ALLERGIES Enbrel [Etanercept], Jardiance [Empagliflozin], Penicillin G, Requip [Ropinirole], and Wellbutrin [Bupropion Hcl] MEDICATIONS insulin lispro (HUMALOG KWIKPEN INSULIN) 100 unit/mL Inject 16 units with meals plus SS#2 (2 units for every 50 over 150) (1 units for every 10 grams of carbs) insulin glargine U-300 conc (TOUJEO MAX U-300 SOLOSTAR) 300 unit/mL (3 mL) inpn Inject subcutaneously 112 units daily semaglutide (OZEMPIC) 0.25 mg or 0.5 mg (2 mg/3 mL) pen Inject 0.5 mg subcutaneously one time a week. venlafaxine ER (EFFEXOR XR) 150 mg 24 hr capsule Take 1 capsule by mouth once daily. gabapentin (NEURONTIN) 100 mg capsule Take 1 capsule by mouth two times a day for 180 days. Take one in AM and one in afternoon. Take the 300mg before bed. gabapentin (NEURONTIN) 300 mg capsule Take 1 capsule by mouth daily at bedtime for 180 days. omeprazole (PRILOSEC) 40 mg capsule Take 1 capsule by mouth once daily. venlafaxine ER (EFFEXOR XR) 75 mg 24 hr capsule Take 1 capsule by mouth once daily. ferrous sulfate 325 mg (65 mg iron) tablet Take 1 tablet by mouth every other day. pramipexole (MIRAPEX) 0.125 mg tablet take 1 tablet by mouth every evening if needed for RESTELESS LEGS pramipexole (MIRAPEX) 0.5 mg tablet Take 1 tablet by mouth once daily. naproxen (NAPROSYN) 500 mg tablet Take 1 tablet by mouth two times a day as needed. dexAMETHasone (DECADRON) 1 mg tablet Take the tablet at 11 pm and go for labs the next morning on fasting at 8 am Blood-Glucose Transmitter (DEXCOM G6 TRANSMITTER) catracho Change transmitter every 3 months - continuous glucose monitor, multiple insulin injections E-11.9 Blood-Glucose Transmitter (DEXCOM G6 TRANSMITTER) catracho 1 Each continuous. venlafaxine XR (EFFEXOR XR) 225 mg tablet Take 1 tablet by mouth once daily. hydrOXYzine HCl (ATARAX) 25 mg tablet Take 1 tablet by mouth three times a day as needed for anxiety. Blood-Glucose Sensor (DEXCOM G6 SENSOR) catracho (more content not included)... Normal [facility] 36on 02-14-2024 36 SUBJECTIVE Jarod Rodarte is a 53 year old Female who was referred to [facility] for clinical management services for Orencia ClickJect 125 MG/ML. Diagnosis Rheumatoid arthritis without rheumatoid factor, [facility] M06.00 OBJECTIVE Medications: Diclofenac Sodium 1 % GEL EX Folic Acid 1 MG TABS PO Methotrexate Sodium 2.5 MG TABS PO MethylPREDNISolone 4 MG TABS PO Montelukast Sodium 10 MG TABS PO Orencia ClickJect 125 MG/ML SOAJ SC Plaquenil 200 MG TABS PO Relafen 750 MG TABS PO Venlafaxine HCl ER 150 MG CP24 PO Allergies: Penicillins bupropion HCl ropinirole Medical History & Comorbidities: Problem list has been reviewed in the EHR Data Collect Orencia ClickJect 02/14/2024 RAPID-3 Assessment Date: 02/14/2024 Value: 19.7 TB screening Assessment Date: 01/25/2022 Value: negative HBV screening Assessment Date: 09/14/2022 Value: negative non-immune/unknown ASSESSMENT / PLAN Orencia ClickJect 125 MG/ML Expectations and Goals of therapy Educated that full effect of new biologic therapy may take up 2-3 months - it is important to remain on any other therapies currently prescribed for management. May also need to continue to use pain relievers and other therapies for symptom management in the interim. Goals of therapy include symptom improvement, suppression of inflammatory markers, RAPID-3 improvement Disease state education Counseled on general disease state management strategies. Emphasized that Rheumatoid Arthritis is a chronic medical condition that requires consistent adherence to prescribed medication in order to achieve treatment goals. Administration Counseled on administration directions. Remove dose from refrigerator 30-60 minutes prior to injection and allow to warm to room temperature. Rotate injection sites - best sites for a subcutaneous injection is top of the thighs or abdomen/abdominal region at least 2 inches away from the belly button. May apply ice or heat the spot prior to and after injection. Can treat with OTC agents for minor irritation including hydrocortisone or diphenhydramine. The patient will inject the medication herself every 7 days. I do not foresee any barriers as the patient is comfortable with injection technique due to being on prior medications. Storage/Disposal Counseled on proper storage of medication in the refrigerator and extended stability for up to 24 hours at room temperature (77F max)- if necessary Side effects Educated that common side effects include injection reactions and infection. Emphasis placed on self-management of infection related issues, particularly as it relates to withholding the next dose of Orencia if there is an active infection or if a course of antibiotic therapy is still in progress. Emphasized that rare, but serious adverse events such as blood cancers and demyelinating disorders have happened in patients taking biologic medications, so regular follow up is essential to ensure safety. Counseled that patient should not receive live vaccines while on Orencia due to risk of potential adverse effects. Contact Advised when to contact pharmacy or provider. Provided with direct number to clinical pharmacist for questions or concerns prior to scheduled follow up. The patient was oriented to the pharmacy?s services upon their initial fill and it was communicated that they can participate in this plan of care by speaking with a Pharmacist which is offered during each reassessment. Adherence Since this is a preventative therapy, the patient needs to take Orencia routinely as prescribed regardless of the activity of their disease. Monitoring and follow up Reviewed therapy monitoring parameters and importance to maintain follow-up lab and provider visits. The patient is aware to let us know if any issues or reactions occur while on this medication so that we can let the provider know as well as any changes in medications so we can assess for interactions and such. Pharmacy Recommendations/Education/O ther The patient knows to let us know if anything changes or comes up regarding medication therapy or changes in current medications. The patient can call us at [phone] M-F 8 AM - 5 PM. Areli Bedoya Clinical Pharmacist [facility] [phone] [place] [phone] Please advise pt - Orencia rx sent to specialty pharmacy - take instead of humira [place] [address] Medication: hcq 200m g 2 tab qd Refills: 11/25/23 60 + 2 lucita Medication: nabumetone 750mg bid Refills: 10/25/23 180 + 0 leaird LARA: 02/10/24 lucita/ Continue lab monitoring every 4 to 6 months will try scaling back nabumetone and hydroxychloroquine slightly if the new biologic is effective 02/14/24 lucita TE/ new rx for orencia sent NOV: 06/13/24 Labs: 12/18/24 Eye exam: 06/01/23 under media/ WNL Refilled 30 days + 1 refill of both meds [place] [address] Name of caller: Ferny wan Contact phone number: [phone] Relationship to Patient: Patient Provider: Dr Barber Practice: [facility] Chief Complaint/Reason for Call: Patient states after research she does not want to take HUMIRA - would rather be placed on the other medication discussed. Please advise Best time of day caller can be reached: any Patient advised that office/PCP has 24-48 business hours to return their call: No [place] [address] Thank you! [place] [address]on 02-13-2024 36 Medication: Orencia clickjet 125mg/ml Dosing Schedule: Inject 125 mg under the skin weekly Prior Authorization: Submitted date: 02/13/24 PA reference #: [id number] Approval dates: 11.14.2023-02.12.2025 Total Copay: $ 0 Specialty Pharmacy: [facility] Yodit Clinical Liaison [facility] [phone] [facility] 36 Medication: Orencia clickjet 125mg/ml Dosing Schedule: Inject 125 mg under the skin weekly Prior Authorization: Submitted date: 02/13/24 MARY reference #: [id number] Approval dates: Denied date: PA denial reason(s): Appeal: Submitted date: Approval dates: Approval reference #: Denied date: Appeal denial reason(s): Financial Assistance: FA Source: FA approval dates: FA award: $ BIN: PCN: GROUP: ID Number: Total Copay: $ Specialty Pharmacy: Phone Number: Areli Bedoya Clinical Pharmacist [facility] [phone] [facility] 36on 02-10-2024 36 Helgracie - I would like to check coverage for orencia self inj weekly for seroneg RA if possible (she had adverse reaction to enbrel). If this is doubtful, possibly checking on humira might be a plan b. Thank you! AJ [facility] Office Visiton 02-10-2024 Follow-up visit [id number] Robert Rodarte 1970 F Date Provider Department Center 02/10/2024 [id number] TELLEZ RHEUM C None Family History Family Status - Relation Status Age at Mother Alive Father Alive Brother Alive Son Alive Son Alive Level of Service:70816 NM OFFICE/OUTPATIENT ESTABLISHED MOD MDM 30 MIN Reason for Visit and Comments: Follow-up [[id number]] [facility] Progress Noteon 02-10-2024 Progress Note CHIEF COMPLAINT: bill nt pain HPI: Ongoing seronegative RA. She had improving symptoms while she was on Enbrel, but had increasing episodes of palpitations and was diagnosed with atrial fibrillation which was felt to be related to Enbrel. She has since stopped it but remains on methotrexate and hydroxychloroquine and nabumetone. She is seeing cardiology soon for further evaluation and possible change in anticoagulant. She has not had recent palpitations. She has some pain in her knees and hands which are worse with use. She has a cousin with psoriatic arthritis. The patient herself has not had a history of psoriasis. She is interested in trying a different medication other than Enbrel but is concerned about the possibility of arrhythmias. No recent infections. She is due for labs in April. General: no weight loss, fevers or night sweats HEENT: no dry eyes or mouth, oral ulcers, no visual changes or red eyes, no changes in hearing CV: no chest pain or palpitations Pulm: no worsening shortness of breath, no pleurisy GI: no nausea, GERD : no dysuria, incontinence or changes in kidney function Neuro: no new headaches, weakness or seizures Skin: no new rashes or skin lesions Allergies Allergen Reactions Penicillins Anaphylaxis Bupropion Other Seizure and hives Empagliflozin Hives Ropinirole Seizure Current Outpatient Medications Medication Sig Dispense Refill amLODIPine (Norvasc) 5 MG tablet Take 5 mg by mouth in the morning. aspirin 81 MG EC tablet Take 81 mg by mouth in the morning. atenolol (Tenormin) 50 MG tablet Take 50 mg by mouth in the morning. atorvastatin (Lipitor) 20 MG tablet Take 20 mg by mouth in the morning. BD Pen Needle Teetee 2nd Gen 32G X 4 MM [facility] USE TO INJECT INSULIN SUBCUTANEOUSLY TWICE A DAY DIRECTED Continuous Blood Gluc Sensor (Dexcom G6 Sensor) [facility] Use a new sensor every 10 days. fenofibrate (Tricor) 145 MG tablet Take 145 mg by mouth in the morning. folic acid (Folvite) 1 MG tablet Take 3 tablets (3,000 mcg) by mouth daily. 90 tablet 11 gabapentin (Neurontin) 100 MG capsule Take 100 mg by mouth 2 times daily. gabapentin (Neurontin) 300 MG capsule Take 300 mg by mouth Nightly. glucagon (Gvoke HypoPen) 1 MG/0.2ML injection Inject 1 mg under the skin Once as needed for low blood sugar. Prn for emergency hydroxychloroquine (Plaquenil) 200 MG tablet take 2 tablets by mouth once daily 60 tablet 2 insulin glargine (Lantus) 100 UNIT/ML pen Inject 67 Units under the skin in the morning and 67 Units in the evening. Insulin Glargine (TOUJEO MAX SOLOSTAR SC) Inject 112 Units under the skin every morning. Insulin Lispro (Humalog) 100 UNIT/ML solution injection Inject 5 Units under the skin. Sliding scale losartan (Cozaar) 100 MG tablet Take 0.5 tablets by mouth in the morning. metFORMIN (Glucophage) 1000 MG tablet Take 1 tablet by mouth in the morning and 1 tablet in the evening. Take with meals. methotrexate 2.5 MG tablet Take 7 tablets (17.5 mg total) by mouth 1 (one) time per week. 84 tablet 1 methylPREDNISolone (Medrol) 4 MG tablet Take 2 tabs po every day for one week then 1 tab po every day for one week 21 tablet 0 montelukast (Singulair) 10 MG tablet Take 1 tablet by mouth Nightly. nabumetone (Relafen) 750 MG tablet TAKE 1 TABLET (750 MG) BY MOUTH 2 TIMES DAILY. TAKE WITH FOOD 180 tablet 0 omeprazole (PriLOSEC) [address] capsule Take 1 capsule by mouth every morning (before breakfast). pramipexole (Mirapex) 0.5 MG tablet Take 0.5 mg by mouth in the morning. semaglutide (Ozempic, 1 MG/DOSE,) 4 MG/3ML solution pen-injector Inject 1 mg under the skin once a week. triamcinolone (Nasacort) 55 MCG/ACT nasal inhaler Administer 2 sprays into affected nostril(s) in the morning. Unifine Pentips 31G X 5 MM misc venlafaxine XR (Effexor XR) 150 MG 24 hr capsule Take 150 mg by mouth in the morning. Diclofenac Sodium (Voltaren) 1 % gel Apply 2 g to affected hand bid prn 200 g 3 No current facility-administered medications for this visit. Past Medical History: Diagnosis Date Chronic pain syndrome Depression Diabetes 1.5, managed as type 2 (HCC) Fibromyalgia syndrome Gastroesophageal reflux disease Heart abnormality 12/22/2023 Hyperlipidemia Hypertension Irritable bowel syndrome Moderate smoker (20 or less per day) Proteinuria Raynaud's syndrome Restless leg syndrome Tendinitis of thumb Thrombocytosis Tobacco abuse History reviewed. No pertinent surgical history. No family history on file. Social History Socioeconomic History Marital status: Spouse name: Not on file Number of children: Not on file Years of education: Not on file Highest education level: Not on file Occupational History Not on file Tobacco Use Smoking status: Every Day Types: Cigarettes Smokeless tobacco: Never Vaping Use Vaping status: Never Used Substance and Sexual Activity Alcohol use: Never Drug use: N (more content not included)... Normal [facility] HEMOGLOBIN A1C (POC)on 11-09 HbA1c (Bld) [Mass fraction] 8.5 % Abnormal 4.3 - 5.6 % [facility] Comment on above: Location:[address], [place], [address] Point of care (POC) Hemoglobin A1c (HGBA1C) testing is intended to assess glucose control and provide a management tool for patients known to have diabetes and their healthcare providers. Target HGBA1C levels may depend on specific clinical circumstances. POC HGBA1C is not intended for use as a diagnostic or screening test; laboratory-based testing should be used for diagnostic purposes. The following information is supplemental and may not be applicable to specific diabetes management situations: The POC device contact lens manufacturer provides a normal range of 4.2% to 6.5% for the HGBA1C POC test. However, the [place] [employer] guidelines indicate that patients with HGBA1C in the range of 5.7% to 6.4% are at increased risk for development of diabetes and that intervention by lifestyle modification may be beneficial. A HGBA1C level greater than or equal to 6.5% is considered diagnostic of diabetes, pending confirmatory testing. Use of HGBA1C testing to evaluate glucose control may not be appropriate for patients with hemoglobin variants or other conditions (e.g. anemia) that alter red blood cell lifespan. Interpretation and review of laboratory results Abnormal [facility] Comprehensive metabolic 2000 panelon 01-07-2023 Albumin [Mass/Vol] 4.6 g/dL 3.9 - 4.9 g/dL [facility] ALP [Catalytic activity/Vol] 73 U/L 34 - 123 U/L [facility] ALT [Catalytic activity/Vol] 17 U/L 7 - 38 U/L [facility] Anion gap [Moles/Vol] 15 mmol/L 9 - 18 mmol/L [facility] AST [Catalytic activity/Vol] 16 U/L 13 - 35 U/L [facility] Bilirubin [Mass/Vol] 0.2 mg/dL 0.2 - 1 .3 mg/dL [facility] Calcium [Mass/Vol] 10.7 mg/dL High 8.5 - 10. 2 mg/dL [facility] Chloride [Moles/Vol] 102 mmol/L 97 - 10 5 mmol/L [facility] CO2 [Moles/Vol] 22 mmol/L 22 - 30 mmol/L [facility] Creatinine [Mass/Vol] 0.78 mg/dL 0.58 - 0.96 mg/dL [facility] Estimated Glomerular Filtration Rate 91 mL/min/1.73m >=60 mL/min/1.73 m [facility] Glucose [Mass/Vol] 134 mg/dL High 74 - 99 mg/dL [facility] Potassium [Moles/Vol] 4.8 mmol/L 3.7 - 5.1 mmol/L [facility] Protein [Mass/Vol] 7.3 g/dL 6.3 - 8.0 g/dL [facility] Sodium [Moles/Vol] 139 mmol/L 136 - 144 mmol/L [facility] Urea nitrogen [Mass/Vol] 19 mg/dL 7 - 21 mg/dL [facility] HbA1c (Bld)on 01-07-2023 Average glucose Estimated from glycated hemoglobin (Bld) [Mass/Vol] 134 mg/dL [facility] HbA1c (Bld) [Mass fraction] 6.3 % High 4.3 - 5.6 % [facility] CBC W Auto Differential pane l (Bld)on 01-06-2023 Basophils (Bld) [#/Vol] 0.09 10*3/uL <0.11 k/uL [facility] Basophils/100 WBC (Bld) 0.7 % [facility] Differential cell count method Nom (Bld) Auto [facility] Eosinophils (Bld) [#/Vol] 0.05 10*3/uL <0.46 k/uL [facility] Eosinophils/100 WBC (Bld) 0.4 % [facility] Erythrocyte distribution width (RBC) [Ratio] 15.0 % 11.5 - 15.0 % [facility] Hematocrit (Bld) [Volume fraction] 45.9 % 36.0 - 46.0 % [facility] Hemoglobin (Bld) [Mass/Vol] 15.2 g/dL 11.5 - 15.5 g/dL [facility] Immature granulocytes (Bld) [#/Vol] 0.08 10*3/uL <0.10 k/uL [facility] Immature granulocytes/100 WBC (Bld) 0.6 % [facility] Lymphocytes (Bld) [#/Vol] 2.37 10*3/uL 1.00 - 4.00 k/uL [facility] Lymphocytes/100 WBC (Bld) 18.8 % [facility] MCH (RBC) [Entitic mass] 29.6 pg 26.0 - 34.0 pg [facility] MCHC (RBC) [Mass/Vol] 33.1 g/dL 30.5 - 36.0 g/dL [facility] MCV (RBC) [Entitic vol] 89.3 fL 80.0 - 100.0 fL [facility] Monocytes (Bld) [#/Vol] 0.69 10*3/uL <0.87 k/uL [facility] Monocytes/100 WBC (Bld) 5.5 % [facility] Neutrophils (Bld) [#/Vol] 9.36 10*3/uL High 1.45 - 7.50 k/uL [facility] Neutrophils/100 WBC (Bld) 74.0 % [facility] Nucleated RBC (Bld) [#/Vol] <0.01 k/uL [facility] Nucleated RBC/100 WBC (Bld) [Ratio] 0.0 /100 WBC [facility] Platelet mean volume (Bld) [Entitic vol] 8.6 fL Low 9.0 - 12.7 fL [facility] Platelets (Bld) [#/Vol] 584 10*3/uL High 150 - 400 k/uL [facility] RBC (Bld) [#/Vol] 5.14 10*6/uL 3.90 - 5.2 0 m/uL [facility] WBC (Bld) [#/Vol] 12.64 10*3/uL High 3.70 - 11.00 k/uL [facility] XR CHEST 2V FRONTAL/LATon [facility] XR Chest PA and Lateralon Radiology Study observation (narrative) [facility] IMPRESSION: No acute radiographic abnormality. District Loss Prevention Manager: [facility] Transcribe Date/Time: Jan 06 2023 11:27A Dictated by : JEMIMA MOORE MD This examination was interpreted and the report reviewed and electronically signed by: JEMIMA MOORE MD on Jan 06 2023 11:28AM [facility] DIVISION OF RADIOLOGY * * *Final Report* * * DATE OF EXAM: Jan 06 2023 11:22AM WOX 5291 - XR CHEST 2V FRONTAL/LAT / PROCEDURE REASON: multiple diagnoses * * * * Physician Interpretation * * * * EXAMINATION: CHEST RADIOGRAPH (2 VIEW FRONTAL & LATERAL) CLINICAL HISTORY: Acute cough Wheezing MQ: XC2_6 EXAM DATE/TIME: 01/06/2023 11:22 AM COMPARISON: Chest x-ray on 06/16/2021 RESULT: Lines, tubes, and devices: None. Lungs and pleura: No consolidation. No lung mass. No pleural effusion. No pneumothorax. Cardiomediastinal silhouette: Normal cardiomediastinal silhouette. Bones and soft tissues: Unremarkable. DIVISION OF RADIOLOGY Provider, [facility] - 01/06/2023 * * *Final Report* * * DATE OF EXAM: Jan 06 2023 11:22AM WOX 5291 - XR CHEST 2V FRONTAL/LAT / PROCEDURE REASON: multiple diagnoses * * * * Physician Interpretation * * * * EXAMINATION: CHEST RADIOGRAPH (2 VIEW FRONTAL & LATERAL) CLINICAL HISTORY: Acute cough Wheezing MQ: XC2_6 EXAM DATE/TIME: 01/06/2023 11:22 AM COMPARISON: Chest x-ray on 06/16/2021 RESULT: Lines, tubes, and devices: None. Lungs and pleura: No consolidation. No lung mass. No pleural effusion. No pneumothorax. Cardiomediastinal silhouette: Normal cardiomediastinal silhouette. Bones and soft tissues: Unremarkable. IMPRESSION IMPRESSION: No acute radiographic abnormality. District Loss Prevention Manager: [facility] Transcribe Date/Time: Jan 06 2023 11:27A Dictated by : JEMIMA MOORE MD This examination was interpreted and the report reviewed and electronically signed by: JEMIMA MOORE MD on Jan 06 2023 11:28AM EST [facility] XR Chest PA and LateralOrder ed By: [facility] Provider on 01-06-2023 [facility] AMYLASE BLDon 09-24-2022 Amylase [Catalytic activity/Vol] 49 U/L 30 - 104 U/L [facility] CBC W Auto Differential pane l (Bld)on 09-24-2022 Basophils (Bld) [#/Vol] 0.06 10*3/uL <0.11 k/uL [facility] Basophils/100 WBC (Bld) 0.6 % [facility] Differential cell count method Nom (Bld) Auto [facility] Eosinophils (Bld) [#/Vol] 0.18 10*3/uL <0.46 k/uL [facility] Eosinophils/100 WBC (Bld) 1.8 % [facility] Erythrocyte distribution width (RBC) [Ratio] 14.7 % 11.5 - 15.0 % [facility] Hematocrit (Bld) [Volume fraction] 45.3 % 36.0 - 46.0 % [facility] Hemoglobin (Bld) [Mass/Vol] 14.8 g/dL 11.5 - 15.5 g/dL [facility] Immature granulocytes (Bld) [#/Vol] <0.10 k/uL [facility] Immature granulocytes/100 WBC (Bld) 0.2 % [facility] Lymphocytes (Bld) [#/Vol] 1.93 10*3/uL 1.00 - 4.00 k/uL [facility] Lymphocytes/100 WBC (Bld) 19.7 % [facility] MCH (RBC) [Entitic mass] 29.1 pg 26.0 - 34.0 pg [facility] MCHC (RBC) [Mass/Vol] 32.7 g/dL 30.5 - 36.0 g/dL [facility] MCV (RBC) [Entitic vol] 89.0 fL 80.0 - 100.0 fL [facility] Monocytes (Bld) [#/Vol] 0.47 10*3/uL <0.87 k/uL [facility] Monocytes/100 WBC (Bld) 4.8 % [facility] Neutrophils (Bld) [#/Vol] 7.15 10*3/uL 1.45 - 7.50 k/uL [facility] Neutrophils/100 WBC (Bld) 72.9 % [facility] Nucleated RBC (Bld) [#/Vol] <0.01 k/uL [facility] Nucleated RBC/100 WBC (Bld) [Ratio] 0.0 /100 WBC [facility] Platelet mean volume (Bld) [Entitic vol] 8.7 fL Low 9.0 - 12.7 fL [facility] Platelets (Bld) [#/Vol] 514 10*3/uL High 150 - 400 k/uL [facility] RBC (Bld) [#/Vol] 5.09 10*6/uL 3.90 - 5.2 0 m/uL [facility] WBC (Bld) [#/Vol] 9.81 10*3/uL 3.70 - 11.00 k/uL [facility] LIPASE Don 09-24-2022 Lipase [Catalytic activity/Vol] 38 U/L 16 - 61 U/L [facility] Glucose Glucometer (dC) [M ass/Vol]Ordered By: Bradley Morin on 09-08-2022 Glucose [Mass/Vol] 106 mg/dL 74-106 [facility] Comment on above: MANAGEMENT OF PATIEN T CARE PER NURSING PROTOCOL FERRITIN Don 07-15-2022 Ferritin [Mass/Vol] 32.3 ng/mL 14.7 - 205.1 ng/mL [facility] Iron and Iron binding capaci ty panelon 07-15-2022 Iron [Mass/Vol] 60 ug/dL 41 - 186 ug/dL [facility] Iron binding capacity [Mass/Vol] 488 ug/dL High 232 - 386 ug/dL [facility] Iron/TIBC [Molar ratio] 12.3 % Low 15.0 - 57.0 % [facility] CBC W Auto Differential pane l (Bld)on 07-14-2022 Basophils (Bld) [#/Vol] 0.07 10*3/uL <0.11 k/uL [facility] Basophils/100 WBC (Bld) 0.6 % [facility] Differential cell count method Nom (Bld) Auto [facility] Eosinophils (Bld) [#/Vol] 0.27 10*3/uL <0.46 k/uL [facility] Eosinophils/100 WBC (Bld) 2.3 % [facility] Erythrocyte distribution width (RBC) [Ratio] 15.4 % High 11.5 - 15.0 % [facility] Hematocrit (Bld) [Volume fraction] 42.7 % 36.0 - 46.0 % [facility] Hemoglobin (Bld) [Mass/Vol] 14.2 g/dL 11.5 - 15.5 g/dL [facility] Immature granulocytes (Bld) [#/Vol] 0.06 10*3/uL <0.10 k/uL [facility] Immature granulocytes/100 WBC (Bld) 0.5 % [facility] Lymphocytes (Bld) [#/Vol] 2.44 10*3/uL 1.00 - 4.00 k/uL [facility] Lymphocytes/100 WBC (Bld) 21.1 % [facility] MCH (RBC) [Entitic mass] 29.2 pg 26.0 - 34.0 pg [facility] MCHC (RBC) [Mass/Vol] 33.3 g/dL 30.5 - 36.0 g/dL [facility] MCV (RBC) [Entitic vol] 87.9 fL 80.0 - 100.0 fL [facility] Monocytes (Bld) [#/Vol] 0.84 10*3/uL <0.87 k/uL [facility] Monocytes/100 WBC (Bld) 7.3 % [facility] Neutrophils (Bld) [#/Vol] 7.89 10*3/uL High 1.45 - 7.50 k/uL [facility] Neutrophils/100 WBC (Bld) 68.2 % [facility] Nucleated RBC (Bld) [#/Vol] <0.01 k/uL [facility] Nucleated RBC/100 WBC (Bld) [Ratio] 0.0 /100 WBC [facility] Platelet mean volume (Bld) [Entitic vol] 8.7 fL Low 9.0 - 12.7 fL [facility] Platelets (Bld) [#/Vol] 513 10*3/uL High 150 - 400 k/uL [facility] RBC (Bld) [#/Vol] 4.86 10*6/uL 3.90 - 5.2 0 m/uL [facility] WBC (Bld) [#/Vol] 11.57 10*3/uL High 3.70 - 11.00 k/uL [facility] CNPNon 04-23-2022 CNPN Telephone (AGGENS4) JAROD RODARTE ([id number]) 1970 F Date Time Provider Department 04/23/22 VELMA STAFFORD AGGENS4 During your visit today, we recorded the following information about you: Nilda Wilder 04/23/2022 11:00 AM Signed PT called for mom, but didn't get moms last name to note her chart. PT explain that she wanted to get second option for mother who has hiatal hernia issues. Called back PT no answer LVM Allergies As of Date: 04/23/2022 Noted Allergy Reaction JARDIANCE (EMPAGLIFLOZIN) 01/02/2020 14 - Other: See Comments Comments: Yeast infections PENICILLIN G 04/18/2013 7 - Swelling REQUIP (ROPINIROLE) 04/18/2013 14 - Other: See Comments Comments: seizures WELLBUTRIN (BUPROPION HCL) 08/08/2019 2 - Rash Date Reviewed: 04/21/2022 Reviewed by: Najma Canas LPN - Fully Assessed Reason for Visit: Patient Question [1477] Prescriptions as of 04/23/2022 - Blood-Glucose Sensor (DEXCOM G6 SENSOR) catracho Change sensor every 10 days. USE FOR CONTINUOUS GLUCOSE MONITORING. MULTIPLE INSULIN INJECTIONS. E11.9 - Blood-Glucose Transmitter (DEXCOM G6 TRANSMITTER) catracho Change transmitter every 3 months. USE FOR CONTINUOUS GLUCOSE MONITORING. MULTIPLE INSULIN INJECTIONS. E11.9 - celecoxib (CELEBREX) 200 mg capsule Take 200 mg by mouth every morning. - folic acid 1 mg tablet Take 1 mg by mouth. - methotrexate 2.5 mg tablet Take 15 mg by mouth. - insulin glargine (LANTUS SOLOSTAR U-100 INSULIN) 100 unit/mL (3 mL) Inject 70 Units subcutaneously twice daily. - semaglutide (OZEMPIC) 0.25 mg or 0.5 mg(2 mg/1.5 mL) pen Inject 0.5 mg subcutaneously one time a week. - gabapentin (NEURONTIN) 300 mg capsule Take 1 capsule by mouth daily at bedtime for 180 days. - gabapentin (NEURONTIN) 100 mg capsule Take 1 capsule by mouth twice daily for 180 days. Take one in AM and one in afternoon. Take the 300mg before bed. - diclofenac (VOLTAREN) 1 % topical gel Apply 2 g to affected area four times daily. - blood sugar diagnostic (ONETOUCH ULTRA TEST) test strip Use to test blood sugars twice daily as instructed - Insulin Bradford, Disposable, (BD ULTRAFINE III MINI PEN) 31 gauge x 3/16 Use with insulin injection 2 times daily - HYDROcodone-acetaminophen (NORCO) 5-325 mg per tablet Take 1 tablet by mouth every 6 hours as needed for pain. - omeprazole (PRILOSEC) 20 mg capsule Take 1 capsule by mouth daily before breakfast. - venlafaxine ER (EFFEXOR XR) 150 mg 24 hr capsule Take 1 capsule by mouth once daily. - montelukast (SINGULAIR) 10 mg tablet Take 1 tablet by mouth daily at bedtime. - amLODIPine (NORVASC) 5 mg tablet Take 1 tablet by mouth once daily. - atenolol (TENORMIN) 50 mg tablet Take 1 tablet by mouth once daily. - atorvastatin (LIPITOR) 20 mg tablet Take 1 tablet by mouth once daily. - fenofibrate nanocrystallized (TRICOR) 145 mg tablet Take 1 tablet by mouth once daily. - metFORMIN (GLUCOPHAGE) 1,000 mg tablet Take 1 tablet by mouth twice daily with meals. - losartan (COZAAR) 100 mg tablet TAKE ONE-HALF TABLET BY MOUTH ONCE DAILY - pramipexole (MIRAPEX) 0.5 mg tablet Take 1 tablet by mouth once daily. - albuterol HFA (VENTOLIN HFA) 90 mcg/actuation inhaler Inhale 2 Puffs as instructed every 4 hours as needed for Wheezing/Shortness of Breath. - triamcinolone acetonide (NASACORT AQ) 55 mcg nasal inhaler Use 2 Sprays in the nose once daily. - aspirin, enteric coated (ASPIRIN, ENTERIC COATED) 81 mg EC tablet Take 1 tablet by mouth once daily. 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/19/2013 Proteinuria [R80.9] 04/19/2013 Tendinitis of thumb [M77.8] 12/18/2014 Raynaud's syndrome [I73.00] 04/07/2015 Irritable bowel syndrome with diarrhea [K58.0] 02/28/2016 Restless leg syndrome [G25.81] 12/20/2016 Chronic pain syndrome [G89.4] 12/19/2017 Gastroesophageal reflux disease without esophag*06/12/2021 Thrombocytosis [D75.839] 06/16/2021 Moderate smoker (20 or less per day) [F17.210] 06/30/2021 Encounter Status:Closed by NILDA WILDER on 04/23/22 Normal [facility] HEMOGLOBIN A1C (POC)on 04-14 HbA1c (Bld) [Mass fraction] 8.5 % Abnormal 4.2 - 5.6 % [facility] QUANTIFERON - PLUS CHERRY TUBE Ordered By: Carrie Cuellar on 01-28-2022 Gamma interferon background IA Qn (Bld) 0.01 IU/mL [facility] M. tuberculosis stim IFN-g by CD4+ CD8+ T-cells corrected for background Qn (Bld) 0.01 [facility] M. tuberculosis stim IFN-g by CD4+ T-cells corrected for background Qn (Bld) 0.00 [IU]/mL [facility] M. tuberculosis tuberculin stim IFN-g Ql (Bld) Negative Negative [facility] Mitogen stimulated gamma interferon corrected for background Qn (Bld) 9.99 IU/mL [facility] Interferon gamma rel ease is measured for specimens from each of the four collection tubes. A qualitative result (Negative, Positive, or Indeterminate) is based on interpretation of the four values, NIL, MITOGEN minus NIL (MITOGEN-NIL), TB1 minus NIL (TB1-NIL), and TB2 minus NIL(TB2-NIL). The NIL value represents nonspecific reactivity produced by the patient specimen. The MITOGEN-NIL value serves as the positive control for the patient specimen, demonstrating successful lymphocyte activity. The TB1-NIL tube specifically detects CD4+ lymphocyte reactivity, specifically stimulated by the TB1 antigens. The TB2-NIL tube detects both CD4+ and CD8+ lymphocyte reactivity, stimulated by TB2 antigens. An overall Negative result does not completely rule out TB infection. A false-positive result in the absence of other clinical evidence of TB infection is not uncommon and may be due to infection from some NTM (M. kansasii, M. szulgai,or M. marinum). [facility] QUANTIFERON - PLUS GREEN TUB Doug 01-28-2022 TB1 Antigen Result 0.01 IU/mL [facility] QUANTIFERON - PLUS PURPLE TU BEon 01-28-2022 Mitogen Result IU/mL [facility] QUANTIFERON - PLUS YELLOW TU BEon 01-28-2022 TB2 Antigen Value 0.02 IU/mL [facility] HLA-B27 antigenon 01-27-2022 HLA B27 Negative Negative [facility] Comment on above: INTERPRETIVE INFORMA TION: HLA-B27 HLA-B27 is a serologically defined allele of the human HLA-B locus. The presence of the HLA-B27 antigen is strongly associated with ankylosing spondylitis and related disorders. This test was developed and its performance characteristics determined by [facility]. It has not been cleared or approved by the [place] Food and Drug Administration. This test was performed in a CLIA certified laboratory and is intended for clinical purposes. Performed by [facility], [address] [address] www.[employer] Deandre Ramirez MD, PHD, Lab. Director [facility] Hepatitis B core antibody, t valentinmayuri 01-27-2022 HBV core Ab IA Ql Negative Negative [facility] Comment on above: INTERPRETIVE INFORMA TION: Hepatitis B Core Ab (Total) This assay should not be used for blood donor screening, associated re-entry protocols, or for screening Human Cells, Tissues and Cellular and Tissue-Based Products (HCT/P). Performed by [facility], [address] [address] www.[employer] Deandre Ramirez MD, PHD, Lab. Director [facility] XR Foot - bilateral AP and L ateral and obliqueon 01-27-2022 IMPRESSION: No radiographic evidence of inflammatory arthropathy. Calcaneal enthesopathy. District Loss Prevention Manager: [facility] Transcribe Date/Time: Jan 27 2022 12:25P Dictated by : RAY SUNG MD This examination was interpreted and the report reviewed and electronically signed by: RAY SUNG MD on Jan 27 2022 12:27PM [facility] DIVISION OF RADIOLOGY * * *Final Report* * * DATE OF EXAM: Jan 26 2022 10:55AM WOX 5555 - XR FOOT 3V AP/LAT/OBL WAQAS / PROCEDURE REASON: inflammatory vs degenerative vs crystal arthritis * * * * Physician Interpretation * * * * CLINICAL INDICATION: Arthropathy TECHNIQUE: 3 view radiographic study of the bilateral feet COMPARISON: Right foot radiograph dated October 26, 2018 FINDINGS: Left foot: No acute fracture or dislocation identified. Joint spaces preserved. No osseous erosion or periostitis. Dorsal and plantar calcaneal enthesophytes. Right foot: No acute fracture or dislocation. Joint spaces preserved. No osseous erosion or periostitis. Dorsal and plantar calcaneal enthesophytes. DIVISION OF RADIOLOGY Provider, Rosalia Smith - 01/27/2022 * * *Final Report* * * DATE OF EXAM: Jan 26 2022 10:55AM WOX 5555 - XR FOOT 3V AP/LAT/OBL WAQAS / PROCEDURE REASON: inflammatory vs degenerative vs crystal arthritis * * * * Physician Interpretation * * * * CLINICAL INDICATION: Arthropathy TECHNIQUE: 3 view radiographic study of the bilateral feet COMPARISON: Right foot radiograph dated October 26, 2018 FINDINGS: Left foot: No acute fracture or dislocation identified. Joint spaces preserved. No osseous erosion or periostitis. Dorsal and plantar calcaneal enthesophytes. Right foot: No acute fracture or dislocation. Joint spaces preserved. No osseous erosion or periostitis. Dorsal and plantar calcaneal enthesophytes. IMPRESSION IMPRESSION: No radiographic evidence of inflammatory arthropathy. Calcaneal enthesopathy. [facility] Trans[facility] Date/Time: Jan 27 2022 12:25P Dictated by : RAY SUNG MD This examination was interpreted and the report reviewed and electronically signed by: RAY SUNG MD on Jan 27 2022 12:27PM [facility] XR Hand - bilateral PA and L ateral and Obliqueon 01-27-2022 IMPRESSION: No radiographic evidence of inflammatory arthropathy. District Loss Prevention Manager: [facility] Transcribe Date/Time: Jan 27 2022 12:19P Dictated by : RAY SUNG MD This examination was interpreted and the report reviewed and electronically signed by: RAY SUNG MD on Jan 27 2022 12:22PM [facility] RADIOLOG[facility] * * *Final Report* * * DATE OF EXAM: Jan 26 2022 10:55AM WOX 5556 - XR HAND 3V PA/LAT/OBL WAQAS / PROCEDURE REASON: inflammatory vs degenerative vs crystal arthritis * * * * Physician Interpretation * * * * CLINICAL INDICATION: Arthropathy TECHNIQUE: 3 view radiographic study of the bilateral hands COMPARISON: None FINDINGS: RIGHT hand: No acute fracture or dislocation identified. Miniscule hypertrophic change at the first carpal metacarpal joint. Joint spaces preserved. No osseous erosion or periostitis identified. No soft tissue calcifications. LEFT hand: No acute fracture or dislocation identified. Miniscule hypertrophic change at the first carpal metacarpal joint. Joint spaces preserved. No osseous erosion or periostitis identified. No soft tissue calcifications. DIVISION OF RADIOLOGY Provider, [facility] Jing malin [place] - 01/27/2022 * * *Final Report* * * DATE OF EXAM: Jan 26 2022 10:55AM WOX 5556 - XR HAND 3V PA/LAT/OBL WAQAS / PROCEDURE REASON: inflammatory vs degenerative vs crystal arthritis * * * * Physician Interpretation * * * * CLINICAL INDICATION: Arthropathy TECHNIQUE: 3 view radiographic study of the bilateral hands COMPARISON: None FINDINGS: RIGHT hand: No acute fracture or dislocation identified. Miniscule hypertrophic change at the first carpal metacarpal joint. Joint spaces preserved. No osseous erosion or periostitis identified. No soft tissue calcifications. LEFT hand: No acute fracture or dislocation identified. Miniscule hypertrophic change at the first carpal metacarpal joint. Joint spaces preserved. No osseous erosion or periostitis identified. No soft tissue calcifications. IMPRESSION IMPRESSION: No radiographic evidence of inflammatory arthropathy. District Loss Prevention Manager: [facility] Transcribe Date/Time: Jan 27 2022 12:19P Dictated by : RAY SUNG MD This examination was interpreted and the report reviewed and electronically signed by: RAY SUNG MD on Jan 27 2022 12:22PM EST [facility] XR Hand - bilateral PA and L ateral and ObliqueOrdered By: Cc Provider on 01-27-2022 [facility] XR Sacroiliac Joint Viewson 01-27-2022 IMPRESSION: Mild bilateral degenerative changes. District Loss Prevention Manager: [facility] Transcribe Date/Time: Jan 27 2022 12:28P Dictated by : RAY SUNG MD This examination was interpreted and the report reviewed and electronically signed by: RAY SUNG MD on Jan 27 2022 12:28PM [facility] * * *Final Report* * * DATE OF EXAM: Jan 26 2022 10:55AM WOX 5245 - XR SI JTS 2V AP PELV/HARRELL / PROCEDURE REASON: inflammatory vs degenerative vs crystal arthritis * * * * Physician Interpretation * * * * CLINICAL INDICATION: Pain TECHNIQUE: 3 view radiographic study of the bilateral sacroiliac joints COMPARISON: None FINDINGS: Mild degenerative changes about the bilateral sacroiliac joints with mild subchondral sclerosis and subchondral microcystic change on the iliac side bilaterally as well as with miniscule inferior marginal osteophyte formation. Bilateral hip joint spaces appear symmetric and preserved. DIVISION OF RADIOLOGY Provider, Rosalia Smith - 01/27/2022 * * *Final Report* * * DATE OF EXAM: Jan 26 2022 10:55AM WOX 5245 - XR SI JTS 2V AP PELV/HARRELL / PROCEDURE REASON: inflammatory vs degenerative vs crystal arthritis * * * * Physician Interpretation * * * * CLINICAL INDICATION: Pain TECHNIQUE: 3 view radiographic study of the bilateral sacroiliac joints COMPARISON: None FINDINGS: Mild degenerative changes about the bilateral sacroiliac joints with mild subchondral sclerosis and subchondral microcystic change on the iliac side bilaterally as well as with miniscule inferior marginal osteophyte formation. Bilateral hip joint spaces appear symmetric and preserved. IMPRESSION IMPRESSION: Mild bilateral degenerative changes. District Loss Prevention Manager: [place] Transcribe Date/Time: Jan 27 2022 12:28P Dictated by : RAY SUNG MD This examination was interpreted and the report reviewed and electronically signed by: RAY SUNG MD on Jan 27 2022 12:28PM [facility] Cyclic citrul peptide antibo dy, IgGOrdered By: Mil Willard on 01-26-2022 Cyclic citrullinated peptide IgG Qn 1.0 U/mL 0.0 - 4.9 U/mL [facility] Comment on above: 0.0 - 4.9 NEGATIVE >= 5.0 POSITIVE Interpretation and review of laboratory results Normal [facility] HBV surface Ab IA Qnon 01-26 Interpretation: <8.0 Non-Reactive 8.0-11.9 Equivocal >= 12.0 Ab Detected Note: If an equivocal result is interpreted, an antibody status is unable to be determined. Collect new specimen if clinically indicated. [facility] Hepatitis B core antibody, I gMon 01-26-2022 HBV core IgM IA Ql Not detected Not Detected [facility] Hepatitis B surface antibody on 01-26-2022 HBV surface Ab IA Qn mIU/mL [facility] Hepatitis B surface antigeno n 01-26-2022 HBV surface Ag IA Ql Not detected Not Detected [facility] Hepatitis C antibodyon 01-26 HCV Ab IA Ql Not detected Not Detected [facility] Comment on above: Patients with DETECT ED Hepatitis C Ab results should have a new specimen submitted for supplemental testing with a Hepatitis C Quantitative RNA assay (viral load), if clinically indicated. No Panel Informationon 01-26 Radiology Study observation (narrative) [facility] Interpretation and review of laboratory results Normal [facility] C-reactive proteinon 022 CRP [Mass/Vol] 6.6 mg/L NINF - 10.0 mg/L [facility] CBC W Auto Differential pane l (Bld)Ordered By: Mary Silva on 01-25-2022 Basophils (Bld) [#/Vol] 0.1 10*3/uL 0.0 - 0.2 10*3/uL [facility] Basophils/100 WBC (Bld) 0.6 % 0.0 - 2.0 % [facility] Eosinophils (Bld) [#/Vol] 0.2 10*3/uL 0.0 - 0.5 10*3/uL [facility] Eosinophils/100 WBC (Bld) 1.9 % 1.0 - 6.0 % [facility] Erythrocyte distribution width (RBC) [Ratio] 14.0 % 11.5 - 14.5 % [facility] Hematocrit (Bld) [Volume fraction] 44.5 % 35.0 - 47.0 % [facility] Hemoglobin (Bld) [Mass/Vol] 14.7 g/dL 11.7 - 16.0 g/dL [facility] Interpretation and review of laboratory results Abnormal [facility] Lymphocytes (Bld) [#/Vol] 3.0 10*3/uL 1.0 - 4.3 10*3/uL [facility] Lymphocytes/100 WBC (Bld) 26.5 % 20.0 - 40.0 % [facility] MCH (RBC) [Entitic mass] 27.8 pg 26.0 - 34.0 pg [facility] MCHC (RBC) [Mass/Vol] 33.0 % 32.0 - 36.0 % [facility] MCV (RBC) [Entitic vol] 84.3 fL 80.0 - 98.0 fL [facility] Monocytes (Bld) [#/Vol] 0.7 10*3/uL 0.0 - 0.8 10*3/uL [facility] Monocytes/100 WBC (Bld) 6.2 % 2.0 - 10.0 % [facility] Neutrophils (Bld) [#/Vol] 7.2 10*3/uL High 1.8 - 7.0 10*3/uL [facility] Neutrophils/100 WBC (Bld) 64.8 % 40.0 - 80.0 % [facility] Nucleated RBC/100 WBC (Bld) [Ratio] 0.0 % [facility] Platelet mean volume (Bld) [Entitic vol] 7.1 fL Low 7.4 - 12.4 fL [facility] Platelets (Bld) [#/Vol] 563 10*3/uL High 140 - 440 10*3/uL [facility] RBC (Bld) [#/Vol] 5.28 10*6/uL High 3.8 - 5.20 10*6/uL [facility] WBC (Bld) [#/Vol] 11.2 10*3/uL High 3.6 - 10.7 10*3/uL [facility] CRP [Mass/Vol]on 01-25-2022 Interpretation and review of laboratory results Normal [facility] Comprehensive metabolic 1998 panelon 01-25-2022 Albumin [Mass/Vol] 4.6 g/dL 3.5 - 5.0 g/dL [facility] ALP [Catalytic activity/Vol] 78 U/L 38 - 126 U/L [facility] ALT [Catalytic activity/Vol] 31 U/L 0 - 34 U/L [facility] Anion gap [Moles/Vol] 10 mmol/L 3 - 13 mmol/L [facility] AST [Catalytic activity/Vol] 31 U/L 15 - 46 U/L [facility] Bilirubin [Mass/Vol] 0.2 mg/dL 0.2 - 1 .3 mg/dL [facility] Calcium [Mass/Vol] 11.0 mg/dL High 8.4 - 10. 4 mg/dL [facility] Chloride [Moles/Vol] 106 mmol/L 98 - 10 7 mmol/L [facility] CO2 [Moles/Vol] 20 mmol/L Low 22 - 30 mmol/L [facility] Creatinine [Mass/Vol] 0.72 mg/dL 0.52 - 1.04 mg/dL [facility] GFR/1.73 sq M.predicted MDRD (S/P/Bld) [Vol rate/Area] - PINF [facility] Comment on above: Calculation based on the Chronic Kidney Disease Epidemiology Collaboration (CKD-EPI) equation refit without adjustment for race Glucose [Mass/Vol] 135 mg/dL High 70 - 100 mg/dL [facility] Interpretation and review of laboratory results Abnormal [facility] Potassium [Moles/Vol] 4.9 mmol/L 3.5 - 5.1 mmol/L [facility] Protein [Mass/Vol] 7.5 g/dL 6.3 - 8.2 g/dL [facility] Sodium [Moles/Vol] 136 mmol/L 135 - 145 mmol/L [facility] Urea nitrogen [Mass/Vol] 16 mg/dL 7 - 17 mg/dL [facility] ESR (Bld) [Velocity]on 01-25 Interpretation and review of laboratory results Abnormal [facility] Sed Rate 35 High [facility] No Panel Informationon 01-25 [facility] PTH INTACT BLDon 01-14-2022 Parathyrin.intact [Mass/Vol] 25 pg/mL 15 - 65 pg/mL [facility] T3 Don 01-14-2022 T3 [Mass/Vol] 103 ng/dL 79 - 165 ng/dL [facility] T4 FREE/FREE THYROXon 2021 Free T4 [Mass/Vol] 1.3 ng/dL 0.9 - 1.7 ng/dL [facility] TSH Don 01-14-2022 TSH Qn 1.030 m[IU]/L 0.270 - 4.200 mIU/L [facility] Calcium.ionized [Moles/Vol]o n 01-13-2022 Calcium.ionized (Bld) [Mass/Vol] 1.38 mmol/L High 1.08 - 1.30 mmol/L [facility] Calcium.ionized adjusted to pH 7.4 (Bld) [Moles/Vol] 1.35 mmol/L High 1.08 - 1.30 mmol/L [facility] VITAMIN D 25 HYDROXYon 01-13 25-hydroxyvitamin D3 [Mass/Vol] 21.7 ng/mL Low 31.0 - 80.0 ng/mL [facility] * Body fluid crystals type b y light microscopyon 07-16-2021 Crystals LM Nom (Body fld) See PATH REV [facility] Work Phone: Blood lymphocytes/100 leukoc yteson 07-16-2021 Lymphocytes/100 WBC (Bld) 7 % [facility] Work Phone: Color of Synovial fluidon Color (Syn fld) Yellow Pale Yellow [facility] Work Phone: Determination of appearance of synovial fluidon 07-16-2021 Appearance (Syn fld) Sl hazy CLEAR [facility] Work Phone: No Panel Informationon 07-16 Synovial Fluid Mononuclear WBCs % 95.2 % [facility] Work Phone: Synovial Fluid Polynuclear WBCs 0.046 10^3/uL [facility] Work Phone: Synovial Fluid Polynuclear WBCs % 4.8 % [facility] Work Phone: Synovial Fluid Total Cells Counted 1.0360 10^3/uL 0.000-0.000 [facility] Work Phone: Comment on above: This is the Total Nu mber of Nucleated Cell Types in the Body Fluid. Review by pathologiston 04- Pathologist review Willam (Unsp spec) [Interp] May follow [facility] Work Phone: Pathologist review Willam (Unsp spec) [Interp] Reviewed [facility] Work Phone: Comment on above: Previous reported re sult: Will follow Edited by: [email or web address] on 07/17/21:1354Negative for malignant cells and crystals.Abram Friend M.D. 07/17/21 AMENDED REPORT 07/17/21 1354 PATH REV previously reported as: Will follow Specimen source identificati on of body fluidon 07-16-2021 Specimen source Nom (Body fld) SYNOVIAL [facility] Work Phone: Specimen source Nom (Body fld) LEFT KNEE [facility] Work Phone: Synovial fluid erythrocytes count (number/volume)on 07-16-2021 RBC (Syn fld) [#/Vol] 8 /mm3 0-0 [facility] Work Phone: Synovial fluid glucose measu rement (mass/volume)on 07-16-2021 Glucose (Syn fld) [Mass/Vol] 205 mg/dL [facility] Work Phone: Comment on above: : BODY FLUID TYPE : GLUCOSE : : : :: Amniotic Fluid : 45 - 76 : : : :: Bile, Clear : < 5 : : : :: Bile, Yellow : < 8 : : : :: Lymph : 48 - 200 : : : :: Nasal Secretion : < 10 : : : :: Pleural Fluid : 65 - 99 : : : :: Saliva : < 2 :: (Mixed Glands) : : : : :: Sweat : < 7 : : : :: Synovial Fluid : 65 - 99 : : : :: Tears : 76 - 288 : : : : Neyda Figueredo, Antonio Elizabeth. Reference Intervals for Adults and Children 2008. Ninth edition (V9.1) [employer], [facility]; [place]: September 2008.The reference intervals and other method performancespecifications have not been established for this test. Thetest result should be integrated into the clinical contextfor interpretation. Synovial fluid leukocytes co unt (number/volume)on 07-16-2021 WBC (Syn fld) [#/Vol] 0.9650 10^3/uL 0.000-0.[address] [facility] Work Phone: [phone] Synovial fluid monocyte perc entageon 07-16-2021 Monocytes/100 WBC (Syn fld) 85 % [facility] Work Phone: [phone] Synovial fluid neutrophil pe rcentageon 07-16-2021 Neutrophils/100 WBC (Syn fld) 2 % 0-25 [facility] Work Phone: Synovial fluid other cells/1 00 leukocytes identificationon 07-16-2021 Other cells/100 WBC Nom (Syn fld) 6 % [facility] Work Phone: [phone] * Body fluid crystals type b y light microscopyon 05-18-2021 Crystals LM Nom (Body fld) Other, see comment [facility] Work Phone: Review by pathologiston 04-29 Pathologist review Willam (Unsp spec) [Interp] Reviewed [facility] Work Phone: Comment on above: Previous reported re sult: Will follow Edited by: RGOOD on 05/19/21:1514Negative for crystals.Abram Friend M.D. 05/19/21 AMENDED REPORT 05/19/21 1514 PATH REV previously reported as: Will follow Specimen source identificati on of body fluidon 05-18-2021 Specimen source Nom (Body fld) SYNOVIAL [facility] Work Phone: Vital Signs Date Time Vital Sign Value Performing Clinician Facility 12-26-2024 11:14-0400 Body height 162.6 cm Odilon Barber MD Work Phone: [facility] 12-26-2024 11:14-0400 Body mass index (BMI) [Ratio] 35.19 kg/m2 Odilon Barber MD Work Phone: [facility] 12-26-2024 11:14-0400 Body weight 92.99 kg Odilon Barber MD Work Phone: [facility] 12-26-2024 11:14-0400 Diastolic blood pressure 82 mm[Hg] Odilon Barber MD Work Phone: [facility] 12-26-2024 11:14-0400 Heart rate 82 /min Odilon Barber MD Work Phone: [facility] 12-26-2024 11:14-0400 Systolic blood pressure 144 mm[Hg] Odilon Barber MD Work Phone: [facility] 10-19-2024 00:03-0400 Body temperature 98 [degF] Dr. Melyssa Mobley MD Work Phone: [facility] 10-19-2024 00:03-0400 Diastolic blood pressure 76 mm[Hg] Dr. Melyssa Mobley MD Work Phone: [facility] 10-19-2024 00:03-0400 Heart rate 81 /min Dr. Melyssa Mobley MD Work Phone: [facility] 10-19-2024 00:03-0400 Respiratory rate 19 /min Dr. Melyssa Mobley MD Work Phone: [facility] 10-19-2024 00:03-0400 SaO2% (BldA) [Mass fraction] 98 % Dr. Melyssa Mobley MD Work Phone: [facility] 10-19-2024 00:03-0400 Systolic blood pressure 138 mm[Hg] Dr. Melyssa Mobley MD Work Phone: [phone] [place] [address] 10-18-2024 21:28-0400 Body height 162.[address] Melyssa Mobley MD Work Phone: [phone] [place] [address] 10-18-2024 21:28-0400 Body mass index (BMI) [Ratio] 33.8 kg/m2 Dr. Melyssa Mobley MD Work Phone: 2([phone] [place] [address] 10-18-2024 21:28-0400 Body weight 89.[address] Melyssa Mobley MD Work Phone: [phone] [place] [address] 10-10-2024 12:45-0400 Body mass index (BMI) [Ratio] 32.95 kg/m2 Gela Older MEDICAL AFFAIRS SPECIALIST.AERIAL PHOTOGRAMMETRIST Work Phone: [facility] 10-10-2024 12:45-0400 Body weight 89.81 kg Gela Older MEDICAL AFFAIRS SPECIALIST.AERIAL PHOTOGRAMMETRIST Work Phone: [facility] 10-10-2024 12:45-0400 Diastolic blood pressure 80 mm[Hg] Gela Older MEDICAL AFFAIRS SPECIALIST.AERIAL PHOTOGRAMMETRIST Work Phone: [facility] 10-10-2024 12:45-0400 Heart rate 76 /min Gela Older MEDICAL AFFAIRS SPECIALIST.AERIAL PHOTOGRAMMETRIST Work Phone: [facility] 10-10-2024 12:45-0400 Respiratory rate 16 /min Gela Older MEDICAL AFFAIRS SPECIALIST.AERIAL PHOTOGRAMMETRIST Work Phone: [facility] 10-10-2024 12:45-0400 SaO2% (BldA) [Mass fraction] 96 % Gela Older MEDICAL AFFAIRS SPECIALIST.AERIAL PHOTOGRAMMETRIST Work Phone: [facility] 10-10-2024 12:45-0400 Systolic blood pressure 132 mm[Hg] Gela Older MEDICAL AFFAIRS SPECIALIST.AERIAL PHOTOGRAMMETRIST Work Phone: [facility] 09-24-2024 11:11-0400 Body height 162.[address] Melyssa Mobley MD Work Phone: 1([phone] [place] [address] 09-24-2024 11:11-0400 Body mass index (BMI) [Ratio] 34.1 kg/m2 Dr. Melyssa Mobley MD Work Phone: [phone] [place] [address] 09-24-2024 11:11-0400 Body weight 90.[address] Melyssa Mobley MD Work Phone: 1(298)103-151479 [place] [address] 09-24-2024 11:11-0400 Diastolic blood pressure 87 mm[Hg] Dr. Melyssa Mobley MD Work Phone: 1(144)[phone] [place] [address] 09-24-2024 11:11-0400 Heart rate 77 /min Dr. Melyssa Mobley MD Work Phone: [phone] [place] [address] 09-24-2024 11:11-0400 SaO2% (BldA) [Mass fraction] 95 % Dr. Melyssa Mobley MD Work Phone: 3([phone] [place] [address] 09-24-2024 11:11-0400 Systolic blood pressure 147 mm[Hg] Dr. Melyssa Mobley MD Work Phone: [phone] [place] [address] 08-09-2024 11:00-0400 Body mass index (BMI) [Ratio] 31.62 kg/m2 Gela Older MEDICAL AFFAIRS SPECIALIST.AERIAL PHOTOGRAMMETRIST Work Phone: [facility] 08-09-2024 11:00-0400 Body weight 86.18 kg Gela Older MEDICAL AFFAIRS SPECIALIST.AERIAL PHOTOGRAMMETRIST Work Phone: [facility] 08-09-2024 11:00-0400 Diastolic blood pressure 82 mm[Hg] Glea Older MEDICAL AFFAIRS SPECIALIST.AERIAL PHOTOGRAMMETRIST Work Phone: [facility] 08-09-2024 11:00-0400 Heart rate 72 /min Gela Older MEDICAL AFFAIRS SPECIALIST.AERIAL PHOTOGRAMMETRIST Work Phone: [facility] 08-09-2024 11:00-0400 Respiratory rate 16 /min Gela Older MEDICAL AFFAIRS SPECIALIST.AERIAL PHOTOGRAMMETRIST Work Phone: [facility] 08-09-2024 11:00-0400 SaO2% (BldA) [Mass fraction] 96 % Gela Older MEDICAL AFFAIRS SPECIALIST.AERIAL PHOTOGRAMMETRIST Work Phone: [facility] 08-09-2024 11:00-0400 Systolic blood pressure 128 mm[Hg] Gela Older MEDICAL AFFAIRS SPECIALIST.AERIAL PHOTOGRAMMETRIST Work Phone: [facility] 06-13-2024 10:59-0400 Body height 162.6 cm Odilon Barber MD Work Phone: [facility] 06-13-2024 10:59-0400 Body mass index (BMI) [Ratio] 34.16 kg/m2 Odilon Barber MD Work Phone: [facility] 06-13-2024 10:59-0400 Body weight 90.27 kg Odilon Barber MD Work Phone: [facility] 06-13-2024 10:59-0400 Diastolic blood pressure 84 mm[Hg] Odilon Barber MD Work Phone: [facility] 06-13-2024 10:59-0400 Heart rate 82 /min Odilon Barber MD Work Phone: [facility] 06-13-2024 10:59-0400 Systolic blood pressure 143 mm[Hg] Odilon Barber MD Work Phone: [facility] 05-21-2024 12:05-0500 Body mass index (BMI) [Ratio] 32.85 kg/m2 Amada Gandhi MD Work Phone: [facility] 05-21-2024 12:05-0500 Body temperature 96.69 [degF] Amada Gandhi MD Work Phone: [facility] 05-21-2024 12:05-0500 Body weight 89.54 kg Amada Gandhi MD Work Phone: [facility] 05-21-2024 12:05-0500 Heart rate 73 /min Amada Gandhi MD Work Phone: [facility] 05-21-2024 12:05-0500 SaO2% (BldA) [Mass fraction] 96 % Amada Gandhi MD Work Phone: [facility] 05-11-2024 13:56-0500 Body mass index (BMI) [Ratio] 32.78 kg/m2 Gela Older MEDICAL AFFAIRS SPECIALIST.AERIAL PHOTOGRAMMETRIST Work Phone: [facility] 05-11-2024 13:56-0500 Body weight 89.36 kg Gela Older MEDICAL AFFAIRS SPECIALIST.AERIAL PHOTOGRAMMETRIST Work Phone: [facility] 05-11-2024 13:56-0500 Diastolic blood pressure 80 mm[Hg] Gela Older MEDICAL AFFAIRS SPECIALIST.AERIAL PHOTOGRAMMETRIST Work Phone: [facility] 05-11-2024 13:56-0500 Heart rate 84 /min Gela Older MEDICAL AFFAIRS SPECIALIST.AERIAL PHOTOGRAMMETRIST Work Phone: [facility] 05-11-2024 13:56-0500 Respiratory rate 16 /min Gela Older MEDICAL AFFAIRS SPECIALIST.AERIAL PHOTOGRAMMETRIST Work Phone: [facility] 05-11-2024 13:56-0500 SaO2% (BldA) [Mass fraction] 97 % Gela Older MEDICAL AFFAIRS SPECIALIST.AERIAL PHOTOGRAMMETRIST Work Phone: [facility] 05-11-2024 13:56-0500 Systolic blood pressure 122 mm[Hg] Gela Older MEDICAL AFFAIRS SPECIALIST.AERIAL PHOTOGRAMMETRIST Work Phone: [facility] 02-17-2024 12:05-0500 Body height 165.1 cm Amada Gandhi MD Work Phone: [facility] 02-17-2024 12:05-0500 Body mass index (BMI) [Ratio] 32.65 kg/m2 Amada Gandhi MD Work Phone: [facility] 02-17-2024 12:05-0500 Body weight 89 kg Amada Gandhi MD Work Phone: [facility] 02-17-2024 12:05-0500 Diastolic blood pressure 78 mm[Hg] Amada Gandhi MD Work Phone: [facility] 02-17-2024 12:05-0500 Heart rate 88 /min Amada Gandhi MD Work Phone: [facility] 02-17-2024 12:05-0500 Respiratory rate 20 /min Amada Gandhi MD Work Phone: [facility] 02-17-2024 12:05-0500 SaO2% (BldA) [Mass fraction] 95 % Amada Gandhi MD Work Phone: [facility] 02-17-2024 12:05-0500 Systolic blood pressure 148 mm[Hg] Amada Gandhi MD Work Phone: [facility] 02-15-2024 14:55-0500 Body mass index (BMI) [Ratio] 32.62 kg/m2 Gela Older MEDICAL AFFAIRS SPECIALIST.AERIAL PHOTOGRAMMETRIST Work Phone: [facility] 02-15-2024 14:55-0500 Body weight 88.91 kg Gela Older MEDICAL AFFAIRS SPECIALIST.AERIAL PHOTOGRAMMETRIST Work Phone: [facility] 02-15-2024 14:55-0500 Diastolic blood pressure 78 mm[Hg] Gela Older MEDICAL AFFAIRS SPECIALIST.AERIAL PHOTOGRAMMETRIST Work Phone: [facility] 02-15-2024 14:55-0500 Heart rate 85 /min Gela Older MEDICAL AFFAIRS SPECIALIST.AERIAL PHOTOGRAMMETRIST Work Phone: [facility] 02-15-2024 14:55-0500 Respiratory rate 16 /min Gela Older MEDICAL AFFAIRS SPECIALIST.AERIAL PHOTOGRAMMETRIST Work Phone: [facility] 02-15-2024 14:55-0500 SaO2% (BldA) [Mass fraction] 98 % Gela Older MEDICAL AFFAIRS SPECIALIST.AERIAL PHOTOGRAMMETRIST Work Phone: [facility] 02-15-2024 14:55-0500 Systolic blood pressure 136 mm[Hg] Gela Older MEDICAL AFFAIRS SPECIALIST.AERIAL PHOTOGRAMMETRIST Work Phone: [facility] 02-10-2024 15:39-0500 Body height 162.6 cm Odilon Barber MD Work Phone: [facility] 02-10-2024 15:39-0500 Body mass index (BMI) [Ratio] 34.19 kg/m2 Odilon Barber MD Work Phone: [facility] 02-10-2024 15:39-0500 Body weight 90.36 kg Odilon Barber MD Work Phone: [facility] 02-10-2024 15:39-0500 Diastolic blood pressure 84 mm[Hg] Odilon Barber MD Work Phone: [facility] 02-10-2024 15:39-0500 Heart rate 78 /min Odilon Barber MD Work Phone: [facility] 02-10-2024 15:39-0500 Systolic blood pressure 145 mm[Hg] Odilon Barber MD Work Phone: [facility] 12-19-2023 08:29-0400 Body mass index (BMI) [Ratio] 32.28 kg/m2 Gela Older MEDICAL AFFAIRS SPECIALIST.AERIAL PHOTOGRAMMETRIST Work Phone: [facility] 12-19-2023 08:29-0400 Body weight 88 kg Gela Older MEDICAL AFFAIRS SPECIALIST.AERIAL PHOTOGRAMMETRIST Work Phone: [facility] 12-19-2023 08:29-0400 Diastolic blood pressure 82 mm[Hg] Gela Older MEDICAL AFFAIRS SPECIALIST.AERIAL PHOTOGRAMMETRIST Work Phone: [facility] 12-19-2023 08:29-0400 Heart rate 82 /min Gela Older MEDICAL AFFAIRS SPECIALIST.AERIAL PHOTOGRAMMETRIST Work Phone: [facility] 12-19-2023 08:29-0400 Respiratory rate 16 /min Gela Older MEDICAL AFFAIRS SPECIALIST.AERIAL PHOTOGRAMMETRIST Work Phone: [facility] 12-19-2023 08:29-0400 SaO2% (BldA) [Mass fraction] 98 % Gela Older MEDICAL AFFAIRS SPECIALIST.AERIAL PHOTOGRAMMETRIST Work Phone: [facility] 12-19-2023 08:29-0400 Systolic blood pressure 132 mm[Hg] Gela Older MEDICAL AFFAIRS SPECIALIST.AERIAL PHOTOGRAMMETRIST Work Phone: [facility] 11-10-2023 13:21-0400 Body mass index (BMI) [Ratio] 31.62 kg/m2 Gela Older MEDICAL AFFAIRS SPECIALIST.AERIAL PHOTOGRAMMETRIST Work Phone: [facility] 11-10-2023 13:21-0400 Body weight 86.18 kg Gela Older MEDICAL AFFAIRS SPECIALIST.AERIAL PHOTOGRAMMETRIST Work Phone: [facility] 11-10-2023 13:21-0400 Diastolic blood pressure 80 mm[Hg] Gela Older MEDICAL AFFAIRS SPECIALIST.AERIAL PHOTOGRAMMETRIST Work Phone: [facility] 11-10-2023 13:21-0400 Heart rate 72 /min Gela Older MEDICAL AFFAIRS SPECIALIST.AERIAL PHOTOGRAMMETRIST Work Phone: [facility] 11-10-2023 13:21-0400 Respiratory rate 16 /min Gela Older MEDICAL AFFAIRS SPECIALIST.AERIAL PHOTOGRAMMETRIST Work Phone: [facility] 11-10-2023 13:21-0400 SaO2% (BldA) [Mass fraction] 96 % Gela Older MEDICAL AFFAIRS SPECIALIST.AERIAL PHOTOGRAMMETRIST Work Phone: [facility] 11-10-2023 13:21-0400 Systolic blood pressure 132 mm[Hg] Gela Older MEDICAL AFFAIRS SPECIALIST.AERIAL PHOTOGRAMMETRIST Work Phone: [facility] 08-09-2023 15:54-0400 Body height 162.6 cm Josiah Misischia DO Work Phone: [facility] 08-09-2023 15:54-0400 Body mass index (BMI) [Ratio] 32.61 kg/m2 Josiah Misischia DO Work Phone: [facility] 08-09-2023 15:54-0400 Body weight 86.18 kg Josiah Misischia DO Work Phone: [facility] 08-09-2023 15:54-0400 Diastolic blood pressure 85 mm[Hg] Josiah Misischia DO Work Phone: [facility] 08-09-2023 15:54-0400 Heart rate 80 /min Josiah Misischia DO Work Phone: [facility] 08-09-2023 15:54-0400 Systolic blood pressure 149 mm[Hg] Josiah Dudley DO Work Phone: [facility] 06-07-2023 15:01-0400 Body temperature 97.11 [degF] Amada Gandhi MD Work Phone: [facility] 06-07-2023 15:01-0400 Body weight 84.82 kg Amada Gandhi MD Work Phone: [facility] 06-07-2023 15:01-0400 Diastolic blood pressure 82 mm[Hg] Amada Gandhi MD Work Phone: [facility] 06-07-2023 15:01-0400 Heart rate 81 /min Amada Gandhi MD Work Phone: [facility] 06-07-2023 15:01-0400 SaO2% (BldA) [Mass fraction] 95 % Amada Gandhi MD Work Phone: [facility] 06-07-2023 15:01-0400 Systolic blood pressure 142 mm[Hg] Amada Gandhi MD Work Phone: [facility] 05-09-2023 11:38-0500 Body weight 82.56 kg Gela Older MEDICAL AFFAIRS SPECIALIST.AERIAL PHOTOGRAMMETRIST Work Phone: [facility] 05-09-2023 11:38-0500 Diastolic blood pressure 82 mm[Hg] Gela Older MEDICAL AFFAIRS SPECIALIST.AERIAL PHOTOGRAMMETRIST Work Phone: [facility] 05-09-2023 11:38-0500 Heart rate 76 /min Gela Older MEDICAL AFFAIRS SPECIALIST.AERIAL PHOTOGRAMMETRIST Work Phone: [facility] 05-09-2023 11:38-0500 Respiratory rate 16 /min Gela Older MEDICAL AFFAIRS SPECIALIST.AERIAL PHOTOGRAMMETRIST Work Phone: [facility] 05-09-2023 11:38-0500 SaO2% (BldA) [Mass fraction] 100 % Gela Older MEDICAL AFFAIRS SPECIALIST.AERIAL PHOTOGRAMMETRIST Work Phone: [facility] 05-09-2023 11:38-0500 Systolic blood pressure 130 mm[Hg] Gela Older MEDICAL AFFAIRS SPECIALIST.AERIAL PHOTOGRAMMETRIST Work Phone: [facility] 03-10-2023 12:04-0500 Body height 162.6 cm Josiah Misischia DO Work Phone: [facility] 03-10-2023 12:04-0500 Body mass index (BMI) [Ratio] 30.9 kg/m2 Josiah Misischia DO Work Phone: [facility] 03-10-2023 12:04-0500 Body weight 81.65 kg Josiah Misischia DO Work Phone: [facility] 03-10-2023 12:04-0500 Diastolic blood pressure 87 mm[Hg] Josiah Misischia DO Work Phone: [facility] 03-10-2023 12:04-0500 Heart rate 80 /min Josiah Misischia DO Work Phone: [facility] 03-10-2023 12:04-0500 Systolic blood pressure 151 mm[Hg] Josiah Misischia DO Work Phone: [facility] 01-06-2023 10:16-0400 Body weight 80.29 kg Gela Older MEDICAL AFFAIRS SPECIALIST.AERIAL PHOTOGRAMMETRIST Work Phone: [facility] 01-06-2023 10:16-0400 Diastolic blood pressure 80 mm[Hg] Gela Older MEDICAL AFFAIRS SPECIALIST.AERIAL PHOTOGRAMMETRIST Work Phone: [facility] 01-06-2023 10:16-0400 Heart rate 86 /min Gela Older MEDICAL AFFAIRS SPECIALIST.AERIAL PHOTOGRAMMETRIST Work Phone: [facility] 01-06-2023 10:16-0400 Respiratory rate 16 /min Gela Older MEDICAL AFFAIRS SPECIALIST.AERIAL PHOTOGRAMMETRIST Work Phone: [facility] 01-06-2023 10:16-0400 SaO2% (BldA) [Mass fraction] 97 % Gela Older MEDICAL AFFAIRS SPECIALIST.AERIAL PHOTOGRAMMETRIST Work Phone: [facility] 01-06-2023 10:16-0400 Systolic blood pressure 136 mm[Hg] Gela Older MEDICAL AFFAIRS SPECIALIST.AERIAL PHOTOGRAMMETRIST Work Phone: [facility] 10-06-2022 10:59-0400 Body weight 80.29 kg Gela Older MEDICAL AFFAIRS SPECIALIST.AERIAL PHOTOGRAMMETRIST Work Phone: [facility] 10-06-2022 10:59-0400 Diastolic blood pressure 80 mm[Hg] Gela Older MEDICAL AFFAIRS SPECIALIST.AERIAL PHOTOGRAMMETRIST Work Phone: [facility] 10-06-2022 10:59-0400 Heart rate 80 /min Gela Older MEDICAL AFFAIRS SPECIALIST.AERIAL PHOTOGRAMMETRIST Work Phone: [facility] 10-06-2022 10:59-0400 Respiratory rate 16 /min Gela Older MEDICAL AFFAIRS SPECIALIST.AERIAL PHOTOGRAMMETRIST Work Phone: [facility] 10-06-2022 10:59-0400 Systolic blood pressure 128 mm[Hg] Gela Older MEDICAL AFFAIRS SPECIALIST.AERIAL PHOTOGRAMMETRIST Work Phone: [facility] 09-24-2022 08:35-0400 Body temperature 96.91 [degF] Gela Older MEDICAL AFFAIRS SPECIALIST.AERIAL PHOTOGRAMMETRIST Work Phone: [facility] 09-24-2022 08:35-0400 Body weight 81.19 kg Gela Older MEDICAL AFFAIRS SPECIALIST.AERIAL PHOTOGRAMMETRIST Work Phone: [facility] 09-24-2022 08:35-0400 Diastolic blood pressure 80 mm[Hg] Gela Older MEDICAL AFFAIRS SPECIALIST.AERIAL PHOTOGRAMMETRIST Work Phone: [facility] 09-24-2022 08:35-0400 Heart rate 84 /min Gela Older MEDICAL AFFAIRS SPECIALIST.AERIAL PHOTOGRAMMETRIST Work Phone: [facility] 09-24-2022 08:35-0400 Respiratory rate 16 /min Gela Older MEDICAL AFFAIRS SPECIALIST.AERIAL PHOTOGRAMMETRIST Work Phone: [facility] 09-24-2022 08:35-0400 SaO2% (BldA) [Mass fraction] 97 % Gela Older MEDICAL AFFAIRS SPECIALIST.AERIAL PHOTOGRAMMETRIST Work Phone: [facility] 09-24-2022 08:35-0400 Systolic blood pressure 140 mm[Hg] Gela Older MEDICAL AFFAIRS SPECIALIST.AERIAL PHOTOGRAMMETRIST Work Phone: [facility] 09-14-2022 12:24-0400 Body height 162.6 cm Olimpia Anne MD Work Phone: [facility] 09-14-2022 12:24-0400 Body mass index (BMI) [Ratio] 30.9 kg/m2 Olimpia Anne MD Work Phone: [facility] 09-14-2022 12:24-0400 Body weight 81.65 kg Olimpia Anne MD Work Phone: [facility] 09-14-2022 12:24-0400 Diastolic blood pressure 89 mm[Hg] Olimpia Anne MD Work Phone: [facility] 09-14-2022 12:24-0400 Heart rate 79 /min Olimpia Anne MD Work Phone: [facility] 09-14-2022 12:24-0400 Systolic blood pressure 152 mm[Hg] Olimpia Anne MD Work Phone: [facility] 09-08-2022 22:36-0400 Diastolic blood pressure 77 mm[Hg] [facility] 09-08-2022 22:36-0400 Heart rate 62 /min [facility] 09-08-2022 22:36-0400 Respiratory rate 15 /min [facility] 09-08-2022 22:36-0400 SaO2% (BldA) [Mass fraction] 98 % [facility] 09-08-2022 22:36-0400 Systolic blood pressure 125 mm[Hg] [facility] 09-08-2022 21:46-0400 Body height 162.56 cm [facility] 09-08-2022 21:46-0400 Body mass index (BMI) [Ratio] 31.9 kg/m2 [facility] 09-08-2022 21:46-0400 Body temperature 97.6 [degF] [facility] 09-08-2022 21:46-0400 Body weight 84.4 kg [facility] 07-14-2022 10:32-0400 Diastolic blood pressure 76 mm[Hg] Gela Medina APRN.CNP Work Phone: [facility] 07-14-2022 10:32-0400 Systolic blood pressure 128 mm[Hg] Gela Older MEDICAL AFFAIRS SPECIALIST.AERIAL PHOTOGRAMMETRIST Work Phone: [facility] 07-14-2022 10:00-0400 Body weight 83.92 kg Gela Older MEDICAL AFFAIRS SPECIALIST.AERIAL PHOTOGRAMMETRIST Work Phone: [facility] 07-14-2022 10:00-0400 Heart rate 68 /min Gela Older MEDICAL AFFAIRS SPECIALIST.AERIAL PHOTOGRAMMETRIST Work Phone: [facility] 07-14-2022 10:00-0400 Respiratory rate 16 /min Gela Older MEDICAL AFFAIRS SPECIALIST.AERIAL PHOTOGRAMMETRIST Work Phone: [facility] 06-18-2022 19:46-0400 Body height 162.6 cm GIO REICHFIELD DO [facility] 06-18-2022 19:46-0400 Body temperature 97.88 [degF] GIO REICHFIELD DO [facility] 06-18-2022 19:46-0400 Body weight 81.8 kg GIO REICHFIELD DO [facility] 06-18-2022 19:46-0400 Diastolic Blood Pressure Non-Invasive 88 1 GIO REICHFIELD DO [facility] 06-18-2022 19:46-0400 Heart rate 83 /min GIO REICHFIELD DO [facility] 06-18-2022 19:46-0400 Respiratory rate 16 /min GIO REICHFIELD DO [facility] 06-18-2022 19:46-0400 Systolic Blood Pressure Non-Invasive 159 1 GIO REICHFIELD DO [facility] 06-18-2022 18:51-0400 Body height 165.1 cm [facility] 06-18-2022 18:51-0400 Body mass index (BMI) [Ratio] 31.5 kg/m2 [facility] 06-18-2022 18:51-0400 Body temperature 96.7 [degF] [facility] 06-18-2022 18:51-0400 Body weight 85.91 kg [facility] 06-18-2022 18:51-0400 Diastolic blood pressure 84 mm[Hg] [facility] 06-18-2022 18:51-0400 Heart rate 86 /min [facility] 06-18-2022 18:51-0400 Respiratory rate 18 /min [facility] 06-18-2022 18:51-0400 SaO2% (BldA) [Mass fraction] 97 % [facility] 06-18-2022 18:51-0400 Systolic blood pressure 156 mm[Hg] [facility] 06-18-2022 18:40-0400 Body temperature 98.29 [degF] Leni Serna APRN.AERIAL PHOTOGRAMMETRIST Work Phone: [facility] 06-18-2022 18:40-0400 Body weight 85.28 kg Leni Serna APRN.AERIAL PHOTOGRAMMETRIST Work Phone: [facility] 06-18-2022 18:40-0400 Diastolic blood pressure 78 mm[Hg] Leni Serna APRN.AERIAL PHOTOGRAMMETRIST Work Phone: [facility] 06-18-2022 18:40-0400 Heart rate 63 /min Leni Serna APRN.AERIAL PHOTOGRAMMETRIST Work Phone: [facility] 06-18-2022 18:40-0400 Respiratory rate 18 /min Leni Serna APRN.AERIAL PHOTOGRAMMETRIST Work Phone: [facility] 06-18-2022 18:40-0400 SaO2% (BldA) [Mass fraction] 98 % Leni Serna APRN.AERIAL PHOTOGRAMMETRIST Work Phone: [facility] 06-18-2022 18:40-0400 Systolic blood pressure 132 mm[Hg] Leni Serna APRN.AERIAL PHOTOGRAMMETRIST Work Phone: [facility] 04-14-2022 08:27-0500 Body weight 83.92 kg Gela Older MEDICAL AFFAIRS SPECIALIST.AERIAL PHOTOGRAMMETRIST Work Phone: [facility] 04-14-2022 08:27-0500 Diastolic blood pressure 82 mm[Hg] Gela Older MEDICAL AFFAIRS SPECIALIST.AERIAL PHOTOGRAMMETRIST Work Phone: [facility] 04-14-2022 08:27-0500 Heart rate 72 /min Gela Older MEDICAL AFFAIRS SPECIALIST.AERIAL PHOTOGRAMMETRIST Work Phone: [facility] 04-14-2022 08:27-0500 Respiratory rate 16 /min Gela Older MEDICAL AFFAIRS SPECIALIST.AERIAL PHOTOGRAMMETRIST Work Phone: [facility] 04-14-2022 08:27-0500 Systolic blood pressure 128 mm[Hg] Gela Older MEDICAL AFFAIRS SPECIALIST.AERIAL PHOTOGRAMMETRIST Work Phone: [facility] 01-11-2022 08:07-0400 Body height 165.1 cm Gela Older MEDICAL AFFAIRS SPECIALIST.AERIAL PHOTOGRAMMETRIST Work Phone: [facility] 01-11-2022 08:07-0400 Body weight 84.37 kg Gela Older MEDICAL AFFAIRS SPECIALIST.AERIAL PHOTOGRAMMETRIST Work Phone: [facility] 01-11-2022 08:07-0400 Diastolic blood pressure 82 mm[Hg] Gela Older MEDICAL AFFAIRS SPECIALIST.AERIAL PHOTOGRAMMETRIST Work Phone: [facility] 01-11-2022 08:07-0400 Heart rate 86 /min Gela Older MEDICAL AFFAIRS SPECIALIST.AERIAL PHOTOGRAMMETRIST Work Phone: [facility] 01-11-2022 08:07-0400 SaO2% (BldA) [Mass fraction] 97 % Gela Older MEDICAL AFFAIRS SPECIALIST.AERIAL PHOTOGRAMMETRIST Work Phone: [facility] 01-11-2022 08:07-0400 Systolic blood pressure 134 mm[Hg] Gela Older MEDICAL AFFAIRS SPECIALIST.AERIAL PHOTOGRAMMETRIST Work Phone: [facility] 09-11-2021 08:16-0400 Body weight 82.1 kg Gela Older MEDICAL AFFAIRS SPECIALIST.AERIAL PHOTOGRAMMETRIST Work Phone: [facility] 09-11-2021 08:16-0400 Diastolic blood pressure 82 mm[Hg] Gela Older MEDICAL AFFAIRS SPECIALIST.AERIAL PHOTOGRAMMETRIST Work Phone: [facility] 09-11-2021 08:16-0400 Heart rate 84 /min Gela Older MEDICAL AFFAIRS SPECIALIST.AERIAL PHOTOGRAMMETRIST Work Phone: [facility] 09-11-2021 08:16-0400 Respiratory rate 16 /min Gela Older MEDICAL AFFAIRS SPECIALIST.AERIAL PHOTOGRAMMETRIST Work Phone: [facility] 09-11-2021 08:16-0400 Systolic blood pressure 128 mm[Hg] Gela Older MEDICAL AFFAIRS SPECIALIST.AERIAL PHOTOGRAMMETRIST Work Phone: [facility] 08-10-2021 09:16-0400 Body height 165.[address] Melyssa Mobley Work Phone: [facility] Work Phone: 07-19-2021 04:28-0400 Body height 165.[address] Melyssa Mobley Work Phone: [facility] Work Phone: 07-19-2021 04:28-0400 Body mass index (BMI) [Ratio] 31.4 kg/m2 Dr. Melyssa Mobley Work Phone: [facility] Work Phone: 07-19-2021 04:28-0400 Body temperature 96.5 [degF] Dr. Melyssa Mobley Work Phone: [facility] Work Phone: 07-19-2021 04:28-0400 Body weight 85.[address] Melyssa Mobley Work Phone: [facility] Work Phone: 07-19-2021 04:28-0400 Diastolic blood pressure 89 mm[Hg] Dr. Melyssa Mobley Work Phone: [facility] Work Phone: 07-19-2021 04:28-0400 Heart rate 98 /min Dr. Melyssa Mobley Work Phone: [facility] Work Phone: 07-19-2021 04:28-0400 Respiratory rate 18 /min Dr. Melyssa Mobley Work Phone: [facility] Work Phone: 07-19-2021 04:28-0400 SaO2% (BldA) [Mass fraction] 97 % Dr. Melyssa Mobley Work Phone: [facility] Work Phone: 07-19-2021 04:28-0400 Systolic blood pressure 173 mm[Hg] Dr. Melyssa Mobley Work Phone: [facility] Work Phone: 06-30-2021 11:21-0400 Body temperature 97.3 [degF] Darya Jackson MD Work Phone: [facility] 06-30-2021 11:21-0400 Body weight 84.6 kg Darya Jackson MD Work Phone: [facility] 06-30-2021 11:21-0400 Diastolic blood pressure 72 mm[Hg] Darya Jackson MD Work Phone: [facility] 06-30-2021 11:21-0400 Heart rate 87 /min Darya Jackson MD Work Phone: [facility] 06-30-2021 11:21-0400 SaO2% (BldA) [Mass fraction] 97 % Darya Jackson MD Work Phone: [facility] 06-30-2021 11:21-0400 Systolic blood pressure 148 mm[Hg] Darya Jackson MD Work Phone: [facility] 05-18-2021 07:10-0500 Body mass index (BMI) [Ratio] 32.3 kg/m2 Dr. Melyssa Mobley Work Phone: [facility] Work Phone: 05-18-2021 07:10-0500 Body weight 85.[address] Melyssa Mobley Work Phone: [facility] Work Phone: 05-13-2021 16:06-0500 Body height 165.[address] LUIS FERNANDO SOLANO MD [facility] 05-13-2021 16:06-0500 Body temperature 98.78 [degF] DR LUIS FERNANDO SOLANO MD [facility] 05-13-2021 16:06-0500 Body weight 81.[address] LUIS FERNANDO SOLANO MD [facility] 05-13-2021 16:06-0500 Diastolic blood pressure 92 mm[Hg] DR LUIS FERNANDO SOLANO MD [facility] 05-13-2021 16:06-0500 Heart rate 102 /min DR LUIS FERNANDO SOLANO MD [facility] 05-13-2021 16:06-0500 Respiratory rate 18 /min DR LUIS FERNANDO SOLANO MD [facility] 05-13-2021 16:06-0500 Systolic blood pressure 155 mm[Hg] DR LUIS FERNANDO SOLANO MD [facility] 04-28-2021 08:17-0500 Body mass index (BMI) [Ratio] 31.7 kg/m2 Dr. Melyssa Mobley Work Phone: [facility] Work Phone: 04-28-2021 08:17-0500 Body temperature 97.9 [degF] Dr. Melyssa Mobley Work Phone: [facility] Work Phone: 04-28-2021 08:17-0500 Body weight 83.[address] Melyssa Mobley Work Phone: [facility] Work Phone: 04-28-2021 08:17-0500 Diastolic blood pressure 88 mm[Hg] Dr. Melyssa Mobley Work Phone: [facility] Work Phone: 04-28-2021 08:17-0500 Heart rate 100 /min Dr. Melyssa Mobley Work Phone: [facility] Work Phone: 04-28-2021 08:17-0500 Respiratory rate 16 /min Dr. Melyssa Mobley Work Phone: [facility] Work Phone: 04-28-2021 08:17-0500 SaO2% (BldA) [Mass fraction] 99 % Dr. Melyssa Mobley Work Phone: [facility] Work Phone: 04-28-2021 08:17-0500 Systolic blood pressure 156 mm[Hg] Dr. Melyssa Mobley Work Phone: [facility] Work Phone: Encounters Encounter Date Encounter Type Care Provider Facility Start: 02-05-2025 End: 02-05-2025 ambulatory [facility] Facility:[facility] Start: 01-30-2025 End: 01-30-2025 ambulatory [facility] Facility:[facility] Start: 01-08-2025 End: 01-08-2025 ambulatory [facility] Facility:[facility] Start: 01-08-2025 Patient encounter procedure [facility] Start: 12-26-2024 End: 12-26-2024 Office outpatient visit 25 minutes Odilon Barber MD Work Phone: [facility] Comment on above: Seronegative rheumat oid arthritis (HCC) (Primary Dx) Start: 12-26-2024 End: 12-26-2024 ambulatory [facility] Start: 12-07-2024 End: 12-10-2024 Refill Odilon Barber MD Work Phone: [facility] Comment on above: On methotrexate ther apy; 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 Melyssa Mobley MD Work Phone: -Emergency Department Work Phone: Start: 10-10-2024 End: 10-10-2024 Office outpatient visit 15 minutes Gela Medina MEDICAL AFFAIRS SPECIALIST.AERIAL PHOTOGRAMMETRIST Work Phone: [facility] Comment on above: Other fatigue (Prima ry Dx); Restless legs; Type 1 diabetes mellitus with hyperglycemia (HCC); [facility] Start: 10-10-2024 End: 10-12-2024 Refill Odilon Barber MD Work Phone: [facility] Comment on above: On methotrexate ther apy Start: 09-24-2024 End: 09-24-2024 Patient encounter procedure Love Hastings CLINICAL PHYSICIAN ASSISTANT-C -[facility] Work Phone: Start: 09-24-2024 End: 09-24-[address] Melyssa Mobley MD Work Phone: -[facility] Start: 09-13-2024 End: 09-13-2024 Refill Melyssa Mobley MD Work Phone: [facility] Comment on above: Refill Request Start: 08-30-2024 End: 08-30-2024 Refill Melyssa Mobley MD Work Phone: [facility] Comment on above: Refill Request Start: 08-27-2024 End: 08-28-2024 Refill Gela Medina MEDICAL AFFAIRS SPECIALIST.AERIAL PHOTOGRAMMETRIST Work Phone: [facility] Comment on above: Refill Request Start: 08-13-2024 End: 10-13-2024 Follow-up encounter Gela Lavinia MEDICAL AFFAIRS SPECIALIST.AERIAL PHOTOGRAMMETRIST Work Phone: [facility] [place] Start: 08-11-2024 End: 08-13-2024 ambulatory Gela Older MEDICAL AFFAIRS SPECIALIST.AERIAL PHOTOGRAMMETRIST Work Phone: [facility] [place] Comment on above: Iron Start: 08-09-2024 End: 08-09-2024 [facility] Facility:[facility] Start: 08-09-2024 End: 08-09-2024 Office outpatient visit 25 minutes Gela Medina MEDICAL AFFAIRS SPECIALIST.AERIAL PHOTOGRAMMETRIST Work Phone: [facility] Comment on above: Other fatigue (Prima ry Dx); Type 2 diabetes mellitus with diabetic nephropathy, unspecified whether prison insulin use (HCC); Essential hypertension; RLS (restless legs syndrome); Easy bruising; Iron deficiency; Folate deficiency; Rheumatoid arthritis, involving unspecified site, unspecified whether rheumatoid factor present (HCC) Start: 08-09-2024 End: 08-09-2024 [facility] Facility:[facility] Start: 07-30-2024 End: 08-03-2024 Telephone encounter Amada Gandhi MD Work Phone: Endocrinology Comment on above: Patient Question Start: 07-20-2024 ambulatory Jarod HERNANDEZ Facility:[facility] Start: 07-03-2024 End: 07-05-2024 Telephone encounter Melyssa Mobley MD Work Phone: [facility] Comment on above: Patient Question Start: 06-26-2024 End: 06-28-2024 Refill Odilon Barber MD Work Phone: [facility] Comment on above: On methotrexate ther apy Start: 06-13-2024 End: 06-13-2024 Office outpatient visit 25 minutes Odilon Barber MD Work Phone: [facility] Comment on above: Seronegative rheumat oid arthritis (CMS/HCC) (HCC) (Primary Dx); Rheumatoid arthritis of 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 ([facility]/HCC) (HCC) Start: 06-13-2024 End: 06-13-2024 ambulatory [facility] Start: 05-24-2024 End: 05-24-2024 Refill Melyssa Mobley MD Work Phone: [facility] Comment on above: Refill Request Start: 05-21-2024 End: 05-21-2024 ambulatory AMADA GANDHI Facility:[facility] Start: 05-21-2024 End: 05-21-2024 Patient encounter procedure Amada Gandhi MD Work Phone: Endocrinology Comment on above: 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), managed as type 2 ([facility]) (Primary Dx) Start: 05-11-2024 End: 05-11-2024 ambulatory [facility] Facility:[facility] Start: 05-11-2024 End: 05-11-2024 Patient encounter procedure Gela Medina APRN.CNP Work Phone: [facility] [place] Comment on above: Chronic maxillary si nusitis (Primary Dx); Allergic rhinitis, unspecified seasonality, unspecified trigger; Encounter for screening mammogram for breast cancer; Fissure in skin of foot Start: 05-11-2024 End: 05-11-2024 Telephone encounter Gela Medina APRN.CNP Work Phone: [facility] Comment on above: Medication Problem Start: 05-09-2024 End: 07-09-2024 Follow-up encounter Gela Medina APRN.CNP Work Phone: [facility] [place] Start: 05-01-2024 End: 05-01-2024 ambulatory AMADA GANDHI Facility:[facility] Start: 04-18-2024 End: 04-18-2024 ambulatory GELA MEDINA Facility:[facility] Start: 04-11-2024 End: 04-13-2024 Refill Amada Gandhi MD Work Phone: Endocrinology Comment on above: Refill Request Start: 04-10-2024 End: 04-11-2024 Refill Gela Medina MEDICAL AFFAIRS SPECIALIST.AERIAL PHOTOGRAMMETRIST Work Phone: [facility] Comment on above: Refill Request Start: 04-09-2024 End: 04-09-[address] Work Phone: Endocrinology Comment on above: Medical Nutrition Th kortney (MAKAYLA) Start: 04-09-2024 End: 04-09-[address] Work Phone: Endocrinology Start: 03-29-2024 End: 04-02-2024 Refill Odilon Barber MD Work Phone: [facility] Comment on above: 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) ([facility]) Start: 03-15-2024 End: 03-16-2024 Telephone encounter Gela Medina MEDICAL AFFAIRS SPECIALIST.AERIAL PHOTOGRAMMETRIST Work Phone: [facility] Comment on above: Results Start: 03-14-2024 End: 03-14-2024 ambulatory MELYSSA MOBLEY Facility:[facility] Start: 03-11-2024 End: 03-12-2024 ambulatory Gela Medina MEDICAL AFFAIRS SPECIALIST.AERIAL PHOTOGRAMMETRIST Work Phone: [facility] Comment on above: Heart Start: 03-07-2024 End: 03-15-2024 Refill Amada Gandhi MD Work Phone: Endocrinology Comment on above: Refill Request Start: 03-05-2024 End: 03-08-2024 [facility] Start: 03-05-2024 End: 03-08-2024 Patient encounter [facility] Start: 03-02-2024 End: 03-05-2024 Telephone encounter Amada Gandhi MD Work Phone: Endocrinology Comment on above: Medication Problem ( Insulin pens) Start: 02-29-2024 End: 02-29-2024 Refill Melyssa Mobley MD Work Phone: [facility] Comment on above: Refill Request Start: 02-20-2024 End: 02-20-2024 Refill Melyssa Mobley MD Work Phone: [facility] Comment on above: Refill Request Start: 02-17-2024 End: 02-17-2024 Telephone encounter Amada Gandhi MD Work Phone: Endocrinology Comment on above: Patient Update Start: 02-17-2024 End: 02-17-2024 ambulatory AMADA GANDHI Facility:[facility] Start: 02-17-2024 End: 02-17-2024 Patient encounter procedure Amada Gandhi MD Work Phone: Endocrinology Comment on above: 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), managed as type 2 (HCC) (Primary Dx); Type 2 diabetes mellitus with diabetic nephropathy, unspecified whether financial services officer insulin use (HCC) Start: 02-15-2024 End: 02-15-2024 Patient encounter procedure Gela Medina APRN.CNP Work Phone: [facility] [place] Comment on above: Type 2 diabetes kimberly itus with diabetic nephropathy, with long- term current use of insulin (HCC) (Primary Dx); Essential hypertension; Hyperlipidemia, unspecified hyperlipidemia type; Palpitations Start: 02-15-2024 End: 02-15-2024 ambulatory GELA MEDINA Facility:[facility] Start: 02-14-2024 End: 02-15-2024 Telephone encounter Odilon Barber MD Work Phone: [facility] Comment on above: Refill Request Start: 02-13-2024 End: 02-14-2024 Refill Odilon Barber MD Work Phone: [facility] Start: 02-10-2024 End: 02-10-2024 Office outpatient visit 25 minutes Odilon Barber MD Work Phone: [facility] Comment on above: Seronegative rheumat oid arthritis (CMS/HCC) (HCC) (Primary Dx); Atrial fibrillation, unspecified type (HCC) Start: 02-10-2024 End: 02-10-2024 ambulatory MELYSSA MOBLEY [facility] Start: 02-10-2024 End: 02-10-2024 Telephone encounter Odilon Barber MD Work Phone: [facility] Start: 02-02-2024 End: 02-06-2024 Refill Odilon Barber MD Work Phone: [facility] Comment on above: 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) (HCC) Start: 02-01-2024 End: 02-01-2024 Telephone encounter Gela Medina APRN.AERIAL PHOTOGRAMMETRIST Work Phone: [facility] [place] Comment on above: Results Start: 12-23-2023 End: 12-26-2023 Telephone encounter Melyssa Mobley MD Work Phone: [facility] [place] Comment on above: Insurance Authorizat ion Start: 12-19-2023 End: 12-19-2023 Patient encounter procedure Gela Medina MEDICAL AFFAIRS SPECIALIST.AERIAL PHOTOGRAMMETRIST Work Phone: [facility] [place] Comment on above: Palpitations (Primar y Dx); Shortness of breath; Pre-syncope; MVP (mitral valve prolapse); Type 2 diabetes mellitus with diabetic nephropathy, with long-term current use of insulin (HCC) Start: 12-14-2023 End: 01-13-2024 ambulatory Gela Older MEDICAL AFFAIRS SPECIALIST.AERIAL PHOTOGRAMMETRIST Work Phone: [facility] [place] Comment on above: Sugar results on dex com Start: 11-16-2023 End: 11-16-2023 Orders Only Odilon Barber MD Work Phone: [facility] Start: 11-10-2023 End: 11-10-2023 Patient encounter procedure Gela Medina MEDICAL AFFAIRS SPECIALIST.AERIAL PHOTOGRAMMETRIST Work Phone: [facility] [place] Comment on above: Type 2 diabetes kimberly itus with diabetic nephropathy, with long- term current use of insulin (HCC) (Primary Dx); Essential hypertension; Hyperlipidemia, unspecified hyperlipidemia type Start: 11-01-2023 End: 11-01-2023 Telephone encounter Park Desouza MD Work Phone: [facility] Comment on above: Prior Authorization (Enbrel) Start: 10-24-2023 End: 10-28-2023 Refill Josiah Dudley DO Work Phone: [facility] Comment on above: 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) (HCC) Start: 10-24-2023 Telephone encounter Melyssa arora MD Work Phone: [facility] [place] Comment on above: Medication Request Start: 10-19-2023 ambulatory Gela Older MEDICAL AFFAIRS SPECIALIST .AERIAL PHOTOGRAMMETRIST Work Phone: [facility] [place] Comment on above: Check in with Lorenzo fox nd, R.A. Start: 10-18-2023 Refill Melyssa Paredes Work Phone: [facility] [place] Comment on above: Refill Request Start: 10-14-2023 End: 10-14-2023 Orders Only Park Desouza MD Work Phone: [facility] Comment on above: 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) (HCC) (Primary Dx); Long-term use of high-risk medication Start: 09-23-2023 ambulatory Gela Older MEDICAL AFFAIRS SPECIALIST .AERIAL PHOTOGRAMMETRIST Work Phone: [facility] [place] Start: 09-23-2023 Letter encounter Gela Older APR N.AERIAL PHOTOGRAMMETRIST Work Phone: [facility] [place] Comment on above: Letter Start: 09-14-2023 Refill Melyssa Paredes Work Phone: [facility] [place] Comment on above: Refill Request Start: 08-25-2023 ambulatory Gela Older MEDICAL AFFAIRS SPECIALIST .AERIAL PHOTOGRAMMETRIST Work Phone: [facility] [place] Comment on above: Cyst/boil Start: 08-19-2023 Refill Melyssa Paredes Work Phone: [facility] [place] Comment on above: Refill Request Start: 08-18-2023 Refill Josiah corcoran DO Work Phone: [facility] Comment on above: 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) (HCC) Start: 08-09-2023 End: 08-09-2023 Office outpatient visit 25 minutes Josiah Dudley DO Work Phone: [facility] Comment on above: 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) ([facility]); On methotrexate therapy Start: 07-19-2023 Refill Andreina Rinconer taryn MEDICAL AFFAIRS SPECIALIST.AERIAL PHOTOGRAMMETRIST Work Phone: [facility] [place] Comment on above: Refill Request Start: 06-30-2023 Refill Andreina Clinton Hershber taryn MEDICAL AFFAIRS SPECIALIST.AERIAL PHOTOGRAMMETRIST Work Phone: [facility] [place] Comment on above: Refill Request Start: 06-28-2023 Telephone encounter Amada Gandhi MD Work Phone: Endocrinology Comment on above: Patient Question (St ress and pain effecting blood sugar) Start: 06-07-2023 End: 06-07-2023 Patient encounter procedure Amada Gandhi MD Work Phone: Endocrinology Comment on above: Class 1 obesity with serious comorbidity and body mass index (BMI) of 31.0 to 31.9 in adult, unspecified obesity type (Primary Dx); Type 2 diabetes mellitus with diabetic nephropathy, with long-term current use of insulin ([facility]) Start: 06-03-2023 Telephone encounter Vanna pollack MD Work Phone: [facility] Comment on above: fax recieved Start: 05-18-2023 Refill Melyssa Paredes Work Phone: [facility] [place] Comment on above: Refill Request Start: 05-17-2023 Orders Only Gela Older MEDICAL AFFAIRS SPECIALIST .AERIAL PHOTOGRAMMETRIST Work Phone: [facility] [place] Start: 05-12-2023 Refill Gela Medina MEDICAL AFFAIRS SPECIALIST .AERIAL PHOTOGRAMMETRIST Work Phone: [facility] [place] Comment on above: Refill Request Start: 05-11-2023 Telephone encounter Josiah cardenas DO Work Phone: [facility] Comment on above: Med Refill 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) (HCC) Start: 05-09-2023 End: 05-09-2023 Patient encounter procedure Gela Medina APRN.AERIAL PHOTOGRAMMETRIST Work Phone: [facility] [place] Comment on above: Acute otitis media, unspecified otitis media type (Primary Dx); Acute non-recurrent sinusitis, unspecified location; Positive FIT (fecal immunochemical test); Depression with anxiety; Insomnia, unspecified type Start: 05-05-2023 Documentation procedure Mammog celina Coordinator [facility] Start: 05-05-2023 Letter encounter Mammography Coordinator [facility] Department Start: 05-03-2023 End: 05-03-2023 Subsequent hospital visit by physician Screen Mammo [facility] Comment on above: Encounter for screen ing mammogram for breast cancer [Z12.31] Refill Request Start: 03-27-2023 Refill Josiah corcoran DO Work Phone: [facility] Comment on above: 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) (HCC) Start: 03-10-2023 End: 03-10-2023 Office outpatient visit 25 minutes Josiah Dudley DO Work Phone: [facility] Comment on above: 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) (HCC) (Primary Dx); High risk medication use Start: 03-03-2023 Refill Mariano Paiz MD Work Phone: [facility] Comment on above: 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) (HCC) Start: 01-30-2023 Refill Gela Older MEDICAL AFFAIRS SPECIALIST .AERIAL PHOTOGRAMMETRIST Work Phone: [facility] [place] Comment on above: Refill Request Insulin Bradford (Dis posable) 31 gauge x 06/10 Start: 01-28-2023 Refill Gela Older MEDICAL AFFAIRS SPECIALIST .AERIAL PHOTOGRAMMETRIST Work Phone: [facility] [place] Comment on above: Refill Request Start: 01-25-2023 Telephone encounter Melyssa arora MD Work Phone: [facility] [place] Comment on above: Fax recent labs Start: 01-10-2023 Telephone encounter Gela Medina MEDICAL AFFAIRS SPECIALIST.AERIAL PHOTOGRAMMETRIST Work Phone: [facility] [place] Comment on above: Results Start: 01-07-2023 Refill Gela Medina MEDICAL AFFAIRS SPECIALIST .AERIAL PHOTOGRAMMETRIST Work Phone: [facility] [place] Comment on above: Refill Request Start: 01-06-2023 End: 01-06-2023 Subsequent hospital visit by physician Xr [facility] [place] Work Phone: Radiology Comment on above: Acute cough [R05.1] Start: 01-06-2023 End: 01-06-2023 Patient encounter procedure Gela Medina APRN.AERIAL PHOTOGRAMMETRIST Work Phone: [facility] [place] Comment on above: Type 2 diabetes kimberly itus with diabetic nephropathy, with long- term current use of insulin ([facility]) (Primary Dx); Essential hypertension; Acute cough; Wheezing; Medication management; Left ear pain; Effusion, left knee Start: 01-04-2023 Refill Gela Medina MEDICAL AFFAIRS SPECIALIST .AERIAL PHOTOGRAMMETRIST Work Phone: [facility] [place] Comment on above: Refill Request Start: 12-15-2022 Telephone encounter Mariano fitzpatrick MD Work Phone: [facility] Start: 12-09-2022 Refill Olimpia Anne MD Work Phone: [facility] Comment on above: Rheumatoid arthritis of 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 ([facility]) ([facility]) Start: 12-08-2022 Telephone encounter Mariano fitzpatrick MD Work Phone: [facility] Start: 10-06-2022 End: 10-06-2022 Patient encounter procedure Gela Medina MEDICAL AFFAIRS SPECIALIST.AERIAL PHOTOGRAMMETRIST Work Phone: [facility] [place] Comment on above: Epigastric pain (Angelia alex Dx); Nausea and vomiting, unspecified vomiting type; Low blood sugar Start: 10-04-2022 Telephone encounter Melyssa arora MD Work Phone: [facility] [place] Comment on above: Dexacom Start: 09-24-2022 End: 09-24-2022 Patient encounter procedure Gela Medina APRN.AERIAL PHOTOGRAMMETRIST Work Phone: [facility] [place] Comment on above: RLS (restless legs s yndrome) (Primary Dx); Epigastric pain; Nausea and vomiting, unspecified vomiting type; Leukocytosis, unspecified type; Gastroesophageal reflux disease without esophagitis; Type 2 diabetes mellitus with diabetic nephropathy, with long-term current use of insulin ([facility]) Start: 09-22-2022 Telephone encounter Melyssa arora MD Work Phone: [facility] [place] Comment on above: Orders (CGM/supplies ) Start: 09-21-2022 Telephone encounter Melyssa arora MD Work Phone: [facility] [place] Comment on above: Patient Request; Pat ient Update Start: 09-19-2022 ambulatory Gela Medina APRN .AERIAL PHOTOGRAMMETRIST Work Phone: [facility] [place] Comment on above: Sulfar burps with st omach pain Start: 09-17-2022 Telephone encounter Melyssa arora MD Work Phone: [facility] [place] Comment on above: Orders Start: 09-14-2022 End: 09-14-2022 Evaluation finding Olimpia Anne MD Work Phone: [facility] Start: 09-14-2022 End: 09-14-2022 Office outpatient visit 25 minutes Olimpia Anne MD Work Phone: [facility] Comment on above: 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) ([facility]) (Primary Dx); High risk medication use; Multiple joint pain; Special screening examination for viral disease; Blood tests prior to treatment or procedure Start: 09-09-2022 ambulatory Katharine Dejesus MEDICAL AFFAIRS SPECIALIST.AERIAL PHOTOGRAMMETRIST Work Phone: Endocrinology Comment on above: E.R. visit Start: 09-09-2022 Telephone encounter Katharine mcmullen MEDICAL AFFAIRS SPECIALIST.AERIAL PHOTOGRAMMETRIST Work Phone: [facility] [place] Comment on above: Low Blood Sugar Start: 09-08-2022 End: 09-08-2022 Emergency department patient visit [facility] Start: 07-28-2022 Refill Olimpia Anne MD Work Phone: [facility] Comment on above: Rheumatoid arthritis of 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 ([facility]/HCC) ([facility]) Start: 07-25-2022 Refill Olimpia Anne MD Work Phone: [facility] Comment on above: Inflammatory arthrit is; Elevated C-reactive protein (CRP) Start: 07-15-2022 ambulatory Gela Medina APRN .AERIAL PHOTOGRAMMETRIST Work Phone: [facility] [place] Comment on above: Iron Start: 07-15-2022 Telephone encounter [facility]lim[facility] olivas MD [facility] Comment on above: Medication Problem ( Meds arnt work said rate is 21 ) Start: 07-14-2022 End: 07-14-2022 Patient encounter procedure Gela Medina APRN.AERIAL PHOTOGRAMMETRIST Work Phone: [facility] [place] Comment on above: Insomnia, unspecifie d type (Primary Dx); RLS (restless legs syndrome); Type 2 diabetes mellitus with diabetic nephropathy, with long-term current use of insulin ([facility]); Essential hypertension; Cutaneous abscess, unspecified site; Numbness and tingling in right hand Start: 07-05-2022 Refill Melyssa Paredes Work Phone: [facility] [place] Comment on above: Refill Request Start: 07-01-2022 Refill Gela VazquezAERIAL PHOTOGRAMMETRIST Work Phone: [facility] [place] Comment on above: Refill Request Start: 06-18-2022 End: 06-18-2022 Emergency department patient visit [facility] Facility:[facility] Start: 06-18-2022 End: 06-18-2022 Emergency department patient visit [facility] Start: 06-18-2022 End: 06-18-2022 Patient encounter procedure Leni Serna APRN.AERIAL PHOTOGRAMMETRIST Work Phone: [facility] Comment on above: Breast infection (Pr imary Dx) Start: 06-02-2022 Refanne Paredes Work Phone: [facility] [place] Comment on above: Refill Request Start: 05-21-2022 ambulatory Katharine C Cioce MEDICAL AFFAIRS SPECIALIST.AERIAL PHOTOGRAMMETRIST Work Phone: Endocrinology Comment on above: Sugars Start: 05-20-2022 ambulatory Katharine C Cioce MEDICAL AFFAIRS SPECIALIST.AERIAL PHOTOGRAMMETRIST Work Phone: Endocrinology Comment on above: Meters Start: 05-18-2022 Telephone encounter Katharine C C ioce MEDICAL AFFAIRS SPECIALIST.AERIAL PHOTOGRAMMETRIST Work Phone: Endocrinology Comment on above: Patient Update Start: 05-05-2022 Telephone encounter Katharine C C ioce MEDICAL AFFAIRS SPECIALIST.AERIAL PHOTOGRAMMETRIST Work Phone: Endocrinology Comment on above: darrel (PA for Dexco m G6) Start: 05-05-2022 End: 05-05-2022 Nursing evaluation of patient and report Jovanny Siu RN Work Phone: Endocrinology Comment on above: 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), managed as type 1 (HCC) (Primary Dx) Start: 04-28-2022 ambulatory [facility] Comment on above: Diabetes Start: 04-28-2022 E-mail encounter alyce m caregiver [facility] Start: 04-28-2022 Telephone encounter Katharine C C ioce MEDICAL AFFAIRS SPECIALIST.AERIAL PHOTOGRAMMETRIST Work Phone: Endocrinology Comment on above: Results Start: 04-26-2022 Telephone encounter Olimpia olivas MD Work Phone: [facility] Comment on above: Med Refill Start: 04-23-2022 Telephone encounter Velma ross MD Work Phone: [facility] Comment on above: Patient Question Start: 04-21-2022 End: 04-21-2022 ambulatory Katharine C Cioce MEDICAL AFFAIRS SPECIALIST.AERIAL PHOTOGRAMMETRIST Work Phone: Endocrinology Comment on above: Poorly controlled ty pe 2 diabetes mellitus (HCC) (Primary Dx); Type 2 diabetes mellitus with diabetic nephropathy, with long-term current use of insulin (HCC) Start: 04-21-2022 End: 04-21-2022 Telemedicine consultation with patient Katharine Dejesus BELIA Work Phone: [facility] Start: 04-14-2022 End: 04-14-2022 Patient encounter procedure Gela Medina APRN.CNP Work Phone: [facility] [place] Comment on above: Type 2 diabetes kimberly itus with diabetic nephropathy, with long- term current use of insulin (HCC) (Primary Dx); Essential hypertension; Multiple joint pain; Dry skin Start: 04-12-2022 Telephone encounter Olimpia olivas MD Work Phone: [facility] Comment on above: Results Start: 03-31-2022 ambulatory [facility] RP h Work Phone: [facility] Comment on above: Ozempic Start: 03-09-2022 Refill Melyssa Paredes Work Phone: [facility] [place] Comment on above: Refill Request Start: 02-09-2022 Refill Melyssa Paredes Work Phone: [facility] [place] Comment on above: Refill Request Start: 01-26-2022 End: 01-26-2022 Subsequent hospital visit by physician Ariadna [facility] [place] Work Phone: Radiology Start: 01-25-2022 End: 01-25-[address] [facility] Comment on above: Inflammatory arthrit is; Elevated C-reactive protein (CRP); Blood tests prior to treatment or procedure; Raynaud's disease without gangrene; Special screening examination for viral disease; Ankylosing spondylitis, unspecified site of spine (HCC) Start: 01-25-2022 End: 01-25-[address] [facility] Start: 01-13-2022 Refill Gela Medina APRN, .CNP Work Phone: [facility] [place] Comment on above: Refill Request Start: 01-13-2022 Telephone encounter Gela Medina APRN.CNP Work Phone: [facility] [place] Comment on above: Results Start: 01-12-2022 ambulatory Gela Older MEDICAL AFFAIRS SPECIALIST .AERIAL PHOTOGRAMMETRIST Work Phone: [facility] [place] Comment on above: Test results Start: 01-11-2022 End: 01-11-2022 Patient encounter procedure Gela Medina MEDICAL AFFAIRS SPECIALIST.AERIAL PHOTOGRAMMETRIST Work Phone: [facility] [place] Comment on above: Type 2 diabetes kimberly itus with diabetic nephropathy, with long- term current use of insulin (HCC) (Primary Dx); Multiple joint pain; Encounter for immunization Start: 12-24-2021 ambulatory Suman Cabrera [facility] Work Phone: [facility] Comment on above: Ozempic Start: 12-24-2021 E-mail encounter fro m caregiver Suman Cabrera [facility] Work Phone: [facility] Start: 12-02-2021 ambulatory Suman Cabrera [facility] Work Phone: [facility] Comment on above: Continuous glucose m onitor for your mom Start: 12-02-2021 E-mail encounter fro m caregiver Suman Cabrera [facility] Work Phone: [facility] Start: 10-26-2021 Telephone encounter Melyssa arora MD Work Phone: [facility] [place] Comment on above: Faxed to Rheum Start: 09-11-2021 End: 09-11-2021 Patient encounter procedure Gela Medina MEDICAL AFFAIRS SPECIALIST.AERIAL PHOTOGRAMMETRIST Work Phone: [facility] [place] Comment on above: Type 2 diabetes kimberly itus with diabetic nephropathy, with long- term current use of insulin (HCC) (Primary Dx); Hyperlipidemia, unspecified hyperlipidemia type; Essential hypertension; Fibromyalgia syndrome; Special screening examination for viral disease; Screening for HIV (human immunodeficiency virus) Start: 09-06-2021 ambulatory Gela Older MEDICAL AFFAIRS SPECIALIST .AERIAL PHOTOGRAMMETRIST Work Phone: [facility] [place] Comment on above: Gabapentin Start: 08-30-2021 ambulatory Suman Cabrera RP Work Phone: [facility] Comment on above: A1c Start: 08-30-2021 E-mail encounter fro m caregiver Suman Cabrera [facility] Work Phone: [facility] Start: 08-27-2021 End: 08-27-2021 ambulatory Suman Cabrera [facility] Work Phone: [facility] Comment on above: Type 2 diabetes kimberly itus with diabetic nephropathy, unspecified whether financial services officer insulin use (HCC) (Primary Dx); Tobacco abuse Start: 08-27-2021 End: 08-27-2021 Telemedicine consultation with patient Suman Cabrera [facility] Work Phone: [facility] Start: 08-12-2021 End: 08-12-[address] Melyssa Mobley Work Phone: [facility] Start: 08-10-2021 End: 08-10-[address] Melyssa Mobley Work Phone: [facility] Start: 08-07-2021 End: 08-07-[address] Melyssa Mobley Work Phone: [facility] Start: 07-28-2021 Telephone encounter Melyssa arora MD Work Phone: [facility] [place] Comment on above: Insomnia (due to sejal n) Start: 07-19-2021 End: 07-19-2021 Emergency department patient visit Dr. Melyssa Mobley Work Phone: [facility]-Emergency Department Start: 07-16-2021 End: 07-16-[address] Melyssa Mobley Work Phone: [facility]-Laboratory, Specimen Start: 07-16-2021 End: 07-16-[address] Melyssa Mobley Work Phone: [facility] Start: 06-30-2021 End: 06-30-2021 ambulatory Darya Jackson MD Work Phone: Hematology/Oncology Comment on above: Thrombocytosis (Prim deric Dx); Moderate smoker (20 or less per day) Start: 06-30-2021 End: 06-30-2021 Patient encounter procedure Darya Jackson MD Work Phone: [facility] Start: 06-24-2021 Refill Melyssa Paredes Work Phone: [facility] [place] Comment on above: Refill Request Start: 06-12-2021 End: 06-12-[address] Melyssa Mobley Work Phone: [facility] Start: 06-04-2021 End: 06-04-[address] [facility] Start: 06-01-2021 End: 06-01-[address] Melyssa Mobley Work Phone: [facility] Start: 05-18-2021 End: 05-18-[address] Melyssa Mobley Work Phone: [facility]-Laboratory, Specimen Start: 05-18-2021 End: 05-18-[address] Melyssa Mobley Work Phone: [facility] Start: 05-13-2021 End: 05-13-2021 Emergency department patient visit DR LUIS FERNANDO SOLANO MD [facility] Start: 04-28-2021 Non-patient / Non-visit Dr. Rebecca Mobley Work Phone: [facility] Start: 04-28-2021 End: 04-28-2021 Emergency department patient visit Dr. Melyssa Mobley Work Phone: 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 Melyssa Mobley MD Work Phone: Start: 10-18-[address] Melyssa Mobley MD Work Phone: Start: 05-21-2024 Hemoglobin A1c/Hemoglobin.total in Blood Amada Gandhi MD Work Phone: Start: 02-17-2024 Hemoglobin A1c/Hemoglobin.total in Blood Amada Gandhi MD Work Phone: Start: 02-17-2024 [facility] [employer] [facility] Start: 11-10-2023 Hemoglobin A1c/Hemoglobin.total in Blood Gela Older MEDICAL AFFAIRS SPECIALIST.AERIAL PHOTOGRAMMETRIST Work Phone: Start: 05-03-2023 Mammography Odilon parikh MD Work Phone: Start: 03-26-2023 Lipid 1996 panel - S latasha or Plasma Odilon Barber MD Work Phone: Start: 01-06-2023 Radiologic exam ches t 2 views Gela Older MEDICAL AFFAIRS SPECIALIST.AERIAL PHOTOGRAMMETRIST Work Phone: Start: 04-14-2022 Hemoglobin A1c/Hemoglobin.total in Blood Gela Older MEDICAL AFFAIRS SPECIALIST.AERIAL PHOTOGRAMMETRIST Work Phone: Start: 01-26-2022 Radiologic examinati on sacroiliac jnts <3 views [facility] Start: 01-25-2022 C-reactive protein Danae Painting MD Work Phone: Start: 01-25-2022 Comprehensive metabo lic panel Olimpia Anne MD Work Phone: Start: 01-25-2022 Iaad ia hepatitis b surface antigen Olimpia Anne MD Work Phone: Start: 01-25-2022 QUANTIFERON - PLUS CHERRY TUBE Olimpia Anne MD Work Phone: Start: 01-25-2022 QUANTIFERON - PLUS G REEN TUBE Olimpia Anne MD Work Phone: Start: 01-25-2022 QUANTIFERON - PLUS P URPLE TUBE Olimpia Anne MD Work Phone: Start: 01-25-2022 QUANTIFERON - PLUS Y ELLOW TUBE Olimpia Anne MD Work Phone: Start: 01-25-2022 QUANTIFERON TB GOLD Ray elen Anne MD Work Phone: Start: 01-11-2022 INFLUENZA VACCINE QUADRIVALENT 6 MO - 64 YRS IM Gela Lavinia MEDICAL AFFAIRS SPECIALIST.AERIAL PHOTOGRAMMETRIST Work Phone: Start: 08-12-2021 Plain X-ray of shoulder Dr. Melyssa Mobley Work Phone: Start: 08-07-2021 MRI of joint of lowe r extremity Dr. Melyssa Mobley Work Phone: Start: 06-04-[address] Melyssa Mobley Work Phone: Start: 05-18-2021 Radiologic examinati on of knee Dr. Melyssa Mobley Work Phone: Start: 04-05-2019 Mammography Melyssa arora MD Work Phone: Plan of Treatment Date Care Activity Detail Author Start: 2044 RSV Immunization for Adults (1 - 1-dose 75+ series) RSV Immunization for Adults (1 - 1-dose 75+ series) [facility] Start: 2034 PNEUMOCOCCAL (3 - PPSV23 if available, else PCV20) PNEUMOCOCCAL (3 - PPSV23 if available, else PCV20) [facility] Start: 2034 PNEUMOCOCCAL (3 - PPSV23 or PCV20) PNEUMOCOCCAL (3 - PPSV23 or PCV20) [facility] Start: 2034 Pneumococcal vaccination [facility] Start: 2034 Pneumococcal Vaccine: Pediatrics (0 to 5 Years) and At-Risk Patients (6 to 64 Years) (3 - PPSV23 if available, else PCV20) Pneumococcal Vaccine: Pediatrics (0 to 5 Years) and At-Risk Patients (6 to 64 Years) (3 - PPSV23 if available, else PCV20) [facility] Start: 2034 Pneumococcal Vaccine: Pediatrics (0 to 5 Years) and At-Risk Patients (6 to 64 Years) (3 - PPSV23 or PCV20) Pneumococcal Vaccine: Pediatrics (0 to 5 Years) and At-Risk Patients (6 to 64 Years) (3 - PPSV23 or PCV20) [facility] Start: 2034 Pneumococcal Vaccine: Pediatrics (0 to 5 Years) and At-Risk Patients (6 to 64 Years) (3 of 3 - PPSV23 or PCV20) Pneumococcal Vaccine: Pediatrics (0 to 5 Years) and At-Risk Patients (6 to 64 Years) (3 of 3 - PPSV23 or PCV20) [facility] Start: 2029 RSV Immunization aged 60 or older (1 - 1-dose 60+ series) RSV Immunization aged 60 or older (1 - 1-dose 60+ series) [facility] Start: 12-05-2025 Diabetes: Estimated Glomerular Filtration Rate for Kidney Health Diabetes: Estimated Glomerular Filtration Rate for Kidney Health [facility] Start: 10-10-2025 Annual PCP Team Chronic Disease Visit Annual PCP Team Chronic Disease Visit [facility] Start: 09-07-2025 Screening for malignant neoplasm of colon [facility] Start: 08-09-2025 Annual PCP Team Chronic Disease Visit Annual PCP Team Chronic Disease Visit [facility] Start: 08-09-2025 Diabetes: Estimated Glomerular Filtration Rate for Kidney Health Diabetes: Estimated Glomerular Filtration Rate for Kidney Health [facility] Start: 07-03-2025 End: 07-03-2025 Patient encounter procedure 07/03/2025 10:30 AM EDT Office Visit [facility] [address] [place] [phone] Odilon Barber MD [address] [place] [address] [facility] Start: 05-21-2025 Hemoglobin A1c measurement Diabetes: Hemoglobin A1C [facility] Start: 05-11-2025 Annual PCP Team Chronic Disease Visit Annual PCP Team Chronic Disease Visit [facility] Start: 05-11-2025 Diabetes: Estimated Glomerular Filtration Rate for Kidney Health Diabetes: Estimated Glomerular Filtration Rate for Kidney Health [facility] Start: 05-01-2025 Diabetes: Urine Albumin-Creatinine Ratio for Kidney Health Diabetes: Urine Albumin-Creatinine Ratio for Kidney Health [facility] Start: 05-01-2025 Hepatitis B screening Urine Albumin:Creatinine Ratio [facility] Start: 03-14-2025 Hemoglobin A1c measurement Diabetes: Hemoglobin A1C [facility] Start: 03-14-2025 Hepatitis B surface antibody level LDL Cholesterol [facility] Start: 02-16-2025 Hemoglobin A1c measurement Diabetes: Hemoglobin A1C [facility] Start: 02-14-2025 Annual PCP Team Chronic Disease Visit Annual PCP Team Chronic Disease Visit [facility] Start: 02-14-2025 Diabetic foot examination Diabetic Foot Exam [facility] Start: 01-26-2025 End: 12-26-2025 C reactive protein [Mass/volume] in Serum or Plasma C-reactive protein Lab Routine Seronegative rheumatoid arthritis (HCC) Expected: 01/26/2025 (Approximate), Expires: 12/26/2025 [facility] Comment on above: Expected: 01/26/2025 (Approximate), Expi res: 12/26/2025 Start: 01-26-2025 End: 12-26-2025 CBC panel - Blood by Automated count CBC Lab Routine Seronegative rheumatoid arthritis (HCC) Expected: 01/26/2025 (Approximate), Expires: 12/26/2025 [facility] Work Phone: Comment on above: Expected: 01/26/2025 (Approximate), Expi res: 12/26/2025 Start: 01-26-2025 End: 12-26-2025 Comprehensive metabolic 1998 panel - Serum or Plasma Comprehensive metabolic panel Lab Routine Seronegative rheumatoid arthritis (HCC) Expected: 01/26/2025 (Approximate), Expires: 12/26/2025 [facility] Comment on above: Expected: 01/26/2025 (Approximate), Expi res: 12/26/2025 Start: 01-26-2025 End: 12-26-2025 Hepatitis B Core Antibody, Total Hepatitis B Core Antibody, Total Lab Routine Seronegative rheumatoid arthritis (HCC) Expected: 01/26/2025 (Approximate), Expires: 12/26/2025 [facility] Comment on above: Expected: 01/26/2025 (Approximate), Expi res: 12/26/2025 Start: 01-26-2025 End: 12-26-2025 Hepatitis B virus surface Ab [Units/volume] in Serum or Plasma by Immunoassay Hepatitis B surface antibody Lab Routine Seronegative rheumatoid arthritis (HCC) Expected: 01/26/2025 (Approximate), Expires: 12/26/2025 [facility] Comment on above: Expected: 01/26/2025 (Approximate), Expi res: 12/26/2025 Start: 01-26-2025 End: 12-26-2025 Hepatitis B virus surface Ag [Presence] in Serum or Plasma by Immunoassay Hepatitis B surface antigen Lab Routine Seronegative rheumatoid arthritis (HCC) Expected: 01/26/2025 (Approximate), Expires: 12/26/2025 [facility] Comment on above: Expected: 01/26/2025 (Approximate), Expi res: 12/26/2025 Start: 01-26-2025 End: 12-26-2025 QUANTIFERON TB GOLD Quantiferon TB Gold Lab Routine Seronegative rheumatoid arthritis (HCC) Expected: 01/26/2025 (Approximate), Expires: 12/26/2025 [facility] Comment on above: Expected: 01/26/2025 (Approximate), Expi res: 12/26/2025 Start: 01-09-2025 Pneumococcal Vaccine: 50+ (4 of 4 - PCV20 or PCV21) Pneumococcal Vaccine: 50+ (4 of 4 - PCV20 or PCV21) [facility] Start: 01-09-2025 Pneumococcal Vaccine: 50+ Years (3 of 3 - PCV20 or PCV21) Pneumococcal Vaccine: 50+ Years (3 of 3 - PCV20 or PCV21) [facility] Start: 01-08-2025 End: 01-08-2025 Patient encounter procedure 01/08/2025 2:40 PM EDT Office Visit [facility] [address] [place] [phone] Melyssa Mobley MD [address] [place] [phone] 3 month follow up [facility] Comment on above: 3 month follow up Start: 12-26-2024 End: 12-26-2024 Patient encounter procedure 12/26/2024 11:30 AM EDT Office Visit [facility] Rhe[facility] [address] [place] [phone] Odilon Barber MD [address] [place] [address] [facility] Rhe[facility] Start: 12-18-2024 Annual PCP Team Chronic Disease Visit Annual PCP Team Chronic Disease Visit [facility] Start: 12-18-2024 Covid-19 Vaccine () Covid-19 Vaccine () [facility] Comment on above: Postponed from 11/27/2023 (Declined at t his time) Start: 11-26-2024 COVID-19 Vaccine () COVID-19 Vaccine () [facility] Start: 11-26-2024 Influenza vaccination [facility] Start: 11-09-2024 Annual PCP Team Chronic Disease Visit Annual PCP Team Chronic Disease Visit [facility] Start: 11-09-2024 Hemoglobin A1c measurement Diabetes: Hemoglobin A1C [facility] Start: 10-26-2024 End: 06-13-2025 C reactive protein [Mass/volume] in Serum or Plasma C-reactive protein Lab Routine Seronegative rheumatoid arthritis ([facility] ([facility]) Expected: 10/26/2024 (Approximate), Expires: 06/13/2025 [facility] Comment on above: Expected: 10/26/2024 (Approximate), Expi res: 06/13/2025 Start: 10-26-2024 End: 06-13-2025 CBC panel - Blood by Automated count CBC Lab Routine Seronegative rheumatoid arthritis ([facility]) ([facility]) Expected: 10/26/2024 (Approximate), Expires: 06/13/2025 [facility] Comment on above: Expected: 10/26/2024 (Approximate), Expi res: 06/13/2025 Start: 10-26-2024 End: 06-13-2025 Comprehensive metabolic 1998 panel - Serum or Plasma Comprehensive metabolic panel Lab Routine Seronegative rheumatoid arthritis ([facility]) ([facility]) Expected: 10/26/2024 (Approximate), Expires: 06/13/2025 [facility] Work Phone: Comment on above: Expected: 10/26/2024 (Approximate), Expi res: 06/13/2025 Start: 10-19-2024 [facility] Start: 09-24-2024 Influenza vaccination Influenza Vaccine (#1) [facility] Comment on above: Postponed from 11/27/2023 (Declined at t his time) Start: 09-20-2024 End: 09-20-2024 Patient encounter procedure 09/20/2024 11:00 AM EDT Office Visit [facility] [address] [place], [place] [address] Gela Medina APRN.AERIAL PHOTOGRAMMETRIST [address] [place], [place] [address] 6 week follow up [facility] Comment on above: 6 week follow up Start: 08-18-2024 Hemoglobin A1c measurement HbA1C [facility] Start: 08-17-2024 End: 08-17-2024 Patient encounter procedure 08/17/2024 12:00 PM EDT Office Visit Endocrinology [address] [place] [address] Amada Gandhi MD [address] [facility] [address] 3 month f/u-MAKAYLA Endocrinology Comment on above: 3 month f/u-MAKAYLA Start: 08-09-2024 End: 11-08-2024 Basic metabolic 2000 panel - Serum or Plasma [facility] Comment on above: Expected: 08/09/2024, Expires: Start: 08-09-2024 End: 11-08-2024 Ferritin [Mass/volume] in Serum or Plasma [facility] Comment on above: Expected: 08/09/2024, Expires: Start: 08-09-2024 End: 11-08-2024 Iron and Iron binding capacity panel - Serum or Plasma [facility] Work Phone: Comment on above: Expected: 08/09/2024, Expires: Start: 08-09-2024 End: 11-08-2024 Thyrotropin [Units/volume] in Serum or Plasma [facility] Comment on above: Expected: 08/09/2024, Expires: Start: 08-09-2024 End: 08-09-2024 Patient encounter procedure 08/09/2024 11:00 AM EDT Office Visit [facility] [address] [place] [address] Gela Medina APRN.AERIAL PHOTOGRAMMETRIST [address] [place] [address] 3 month follow up [facility] Comment on above: 3 month follow up Start: 08-07-2024 Annual PCP Team Chronic Disease Visit Annual PCP Team Chronic Disease Visit [facility] Start: 07-10-2024 End: 07-10-2024 Patient encounter procedure 07/10/2024 11:00 AM EDT Office Visit Cardiology [address] [facility] [address] [place], [place] [phone] Rober Jimenez MD [address] [place], [place] [id number] Palpitations [R00.2] Cardiology Comment on above: Palpitations [R00.2] Start: 06-13-2024 End: 06-13-2024 Patient encounter procedure 06/13/2024 11:00 AM EDT Office Visit [facility] [address] [place] [phone] Odilon Barber MD [address] [place] [address] [facility] Start: 06-12-2024 Hemoglobin A1c measurement HbA1C [facility] Start: 05-31-2024 Glaucoma screening Dilated Retinal Exam [facility] Start: 05-21-2024 End: 05-21-2024 Patient encounter procedure 05/21/2024 12:00 PM EST Office Visit Endocrinology [address] [place] [address] Amada Gandhi MD [address] [place] [address] 3 month f/u Endocrinology Comment on above: 3 month f/u Start: 05-19-2024 Hemoglobin A1c measurement HbA1C [facility] Start: 05-19-2024 End: 08-18-2024 Microalbumin/Creatinine [Mass Ratio] in Urine ALBUMIN/CREATININE RATIO, URINE Lab Routine 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), managed as type 2 (HCC) Expected: 05/19/2024, Expires: 08/18/2024 [facility] Comment on above: Expected: 05/19/2024, Expires: Start: 05-18-2024 End: 05-18-2024 Patient encounter procedure 05/18/2024 11:30 AM EST Appointment Mammogram [address] [place] [phone] : Encounter for screening mammogram for breast cancer [Z12.31] Mammogram Comment on above: : Encounter for screening mammogram for breast cancer [Z12.31] Start: 05-12-2024 End: 02-09-2025 C reactive protein [Mass/volume] in Serum or Plasma C-reactive protein Lab Routine Seronegative rheumatoid arthritis (CMS/HCC) (HCC) Expected: 05/12/2024 (Approximate), Expires: 02/09/2025 [facility] Comment on above: Expected: 05/12/2024 (Approximate), Expi res: 02/09/2025 Start: 05-12-2024 End: 02-09-2025 CBC panel - Blood by Automated count CBC Lab Routine Seronegative rheumatoid arthritis (CMS/HCC) (HCC) Expected: 05/12/2024 (Approximate), Expires: 02/09/2025 [facility] Work Phone: Comment on above: Expected: 05/12/2024 (Approximate), Expi res: 02/09/2025 Start: 05-12-2024 End: 02-09-2025 Comprehensive metabolic 1998 panel - Serum or Plasma Comprehensive metabolic panel Lab Routine Seronegative rheumatoid arthritis (CMS/HCC) (HCC) Expected: 05/12/2024 (Approximate), Expires: 02/09/2025 [facility] Comment on above: Expected: 05/12/2024 (Approximate), Expi res: 02/09/2025 Start: 05-09-2024 Annual PCP Team Chronic Disease Visit Annual PCP Team Chronic Disease Visit [facility] Start: 05-09-2024 End: 05-09-2024 Patient encounter procedure 05/09/2024 11:40 AM EST Office Visit [facility] [address] [place] [address] Gela Medina APRN.AERIAL PHOTOGRAMMETRIST [address] [place] [address] Just a routine follow up [facility] Comment on above: Just a routine follow up Start: 05-03-2024 Screening for malignant neoplasm of breast [facility] Start: 04-21-2024 End: 04-21-2024 ambulatory 04/21/2024 11:00 AM EST Results Only [facility] [address] [place] [address] [facility] Start: 04-17-2024 End: 04-17-2024 Patient encounter procedure 04/17/2024 2:20 PM EST Office Visit Endocrinology [address] [place] [address] Amada Gandhi MD [address] [place] [address] diabetes Endocrinology Comment on above: diabetes Start: 04-14-2024 End: 04-14-2024 ambulatory 04/14/2024 10:45 AM EST Results Only [facility] [address] [place] [address] [facility] Start: 04-10-2024 End: 04-10-2024 ambulatory 04/10/2024 10:00 AM EST Results Only [facility] [address] [place] [address] [facility] Start: 04-09-2024 End: 04-09-2024 ambulatory 04/09/2024 1:00 PM EST Education Endocrinology [address] [place] [address] Ludy Oreilly, [address] [address] 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), 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] Endocrinology Comment on above: MAKAYLA (latent autoimmune diabetes in adul ts), 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] Start: 04-07-2024 Annual PCP Team Chronic Disease Visit Annual PCP Team Chronic Disease Visit [facility] Start: 04-07-2024 BP Controlled (<130/80) BP Controlled (<130/80) [facility] in Start: 03-30-2024 End: 06-29-2024 CBC W Auto Differential panel - Blood COMPLETE BLOOD COUNT AND DIFFERENTIAL Lab Routine Leukocytosis, unspecified type Expected: 03/30/2024, Expires: 06/29/2024 [facility] Work Phone: Comment on above: Expected: 03/30/2024, Expires: Start: 03-28-2024 DTaP/Tdap/Td Vaccines (2 - Td or Tdap) DTaP/Tdap/Td Vaccines (2 - Td or Tdap) [facility] Start: 03-28-2024 Medicare Advantage Annual Wellness Visit Medicare Advantage Annual Wellness Visit [facility] Start: 03-28-2024 Urine microalbumin profile [facility] Start: 03-26-2024 Diabetes: Urine Albumin-Creatinine Ratio for Kidney Health Diabetes: Urine Albumin-Creatinine Ratio for Kidney Health [facility] Start: 03-26-2024 Hemoglobin A1c measurement Diabetes: Hemoglobin A1C [facility] Start: 03-26-2024 Hepatitis B screening Urine Albumin:Creatinine Ratio [facility] Start: 03-26-2024 Hepatitis B surface antibody level LDL Cholesterol [facility] Start: 03-26-2024 Lipid panel Lipid Panel [facility] Start: 03-26-2024 End: 03-26-2024 Nutrition therapy 03/26/2024 10:15 AM EST Education Nutrition Therapy [address] [place] [address] Jenn Packer, KENZIE [address] [place] [address] Type 2 diabetes mellitus with diabetic nephropathy, with long-term current use of insulin (HCC) [E11.21, Z79.4] Nutrition Therapy Comment on above: Type 2 diabetes mellitus with diabetic n ephropathy, with long-term current use of insulin (HCC) [E11.21, Z79.4] Start: 03-14-2024 End: 03-14-2024 ambulatory 03/14/2024 11:30 AM EST Results Only [facility] [address] [facility] [place] [address] [facility] Start: 03-10-2024 End: 03-10-2024 ambulatory 03/10/2024 11:00 AM EST Results Only [facility] [address] [facility] [place] [address] [facility] Start: 03-07-2024 End: 03-07-2024 Patient encounter procedure 03/07/2024 11:00 AM EST Office Visit Cardiology [address] [place] [address] Rober Jimenez MD [address] [place] [address] Palpitations [R00.2] Cardiology Comment on above: Palpitations [R00.2] Start: 02-17-2024 End: 05-18-2024 Comprehensive metabolic 2000 panel - Serum or Plasma COMPREHENSIVE METABOLIC PANEL Lab Routine 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), managed as type 2 (HCC) Expected: 02/17/2024, Expires: 05/18/2024 [facility] Work Phone: Comment on above: Expected: 02/17/2024, Expires: Start: 02-17-2024 End: 05-18-2024 Lipid 1996 panel - Serum or Plasma LIPID PANEL BASIC Lab Routine 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), managed as type 2 (HCC) Expected: 02/17/2024, Expires: 05/18/2024 [facility] Comment on above: Expected: 02/17/2024, Expires: Start: 02-15-2024 End: 02-15-2024 Patient encounter procedure 02/15/2024 3:00 PM EST Office Visit [facility] [address] [place] [address] Gela Medina APRN.AERIAL PHOTOGRAMMETRIST [address] [place] [address] 3 month follow up [facility] Comment on above: 3 month follow up Start: 02-10-2024 Hemoglobin A1c measurement HbA1C [facility] Start: 02-10-2024 End: 02-10-2024 Patient encounter procedure [facility] Comment on above: 3 month follow up Start: 02-06-2024 End: 05-07-2024 CBC panel - Blood by Automated count COMPLETE BLOOD COUNT Lab Routine Type 2 diabetes mellitus with diabetic nephropathy, with long-term current use of insulin (HCC) Essential hypertension Expected: 02/06/2024 (Approximate), Expires: 05/07/2024 [facility] Comment on above: Expected: 02/06/2024 (Approximate), Expi res: 05/07/2024 Start: 02-06-2024 End: 05-07-2024 Comprehensive metabolic 2000 panel - Serum or Plasma COMPREHENSIVE METABOLIC PANEL Lab Routine Type 2 diabetes mellitus with diabetic nephropathy, with long-term current use of insulin (HCC) Hyperlipidemia, unspecified hyperlipidemia type Essential hypertension Expected: 02/06/2024 (Approximate), Expires: 05/07/2024 [facility] Comment on above: Expected: 02/06/2024 (Approximate), Expi res: 05/07/2024 Start: 02-06-2024 End: 05-07-2024 Hemoglobin A1c in Blood HEMOGLOBIN A1C Lab Routine Type 2 diabetes mellitus with diabetic nephropathy, with long-term current use of insulin (HCC) Expected: 02/06/2024 (Approximate), Expires: 05/07/2024 [facility] Comment on above: Expected: 02/06/2024 (Approximate), Expi res: 05/07/2024 Start: 02-06-2024 End: 05-07-2024 Lipid 1996 panel - Serum or Plasma LIPID PANEL BASIC Lab Routine Hyperlipidemia, unspecified hyperlipidemia type Expected: 02/06/2024 (Approximate), Expires: 05/07/2024 [facility] Work Phone: Comment on above: Expected: 02/06/2024 (Approximate), Expi res: 05/07/2024 Start: 02-01-2024 End: 02-01-2024 Patient encounter procedure [facility] Start: 01-25-2024 End: 01-25-2024 Patient encounter procedure 01/25/2024 12:00 PM EDT Office Visit [facility] [address] [phone] Josiah Dudley DO [address] [place], [place] [phone] [facility] Start: 01-23-2024 End: 01-23-2024 Patient encounter procedure 01/23/2024 10:40 AM EDT Office Visit [facility] [address] [place] [phone] Gela Medina APRN.AERIAL PHOTOGRAMMETRIST [address] [place] [address] follow up [facility] Comment on above: follow up Start: 01-16-2024 End: 01-16-2024 Patient encounter procedure 01/16/2024 2:40 PM EDT Office Visit Endocrinology [address] [place], [place] [phone] Amada Gandhi MD [address] [place], [place] [phone] diabetes Endocrinology Comment on above: diabetes Start: 01-07-2024 Annual PCP Team Chronic Disease Visit Annual PCP Team Chronic Disease Visit [facility] Start: 01-07-2024 Colorectal Cancer Screening Colorectal Cancer Screening [facility] Comment on above: Postponed from 2014 (Declined at t his time) Start: 01-07-2024 Covid-19 Vaccine () Covid-19 Vaccine () [facility] Comment on above: Postponed from 11/26/2022 (Declined at t his time) Start: 01-07-2024 Hemoglobin A1c measurement Diabetes: Hemoglobin A1C [facility] Start: 01-07-2024 Hepatitis B Vaccine (1 of 3 - 19+ 3-dose series) Hepatitis B Vaccine (1 of 3 - 19+ 3-dose series) [facility] Comment on above: Postponed from 1988 (Declined at t his time) Start: 01-07-2024 Hepatitis B Vaccine (1 of 3 - 3-dose series) Hepatitis B Vaccine (1 of 3 - 3-dose series) [facility] Comment on above: Postponed from 1969 (Declined at t his time) Start: 01-07-2024 Screening for malignant neoplasm of colon Colorectal Cancer Screening [facility] Comment on above: Postponed from 2014 (Declined at t his time) Start: 01-07-2024 Shingrix Vaccine (1 of 2) Shingrix Vaccine (1 of 2) [facility] Comment on above: Postponed from 10/12/2019 (Declined at t his time) Postponed from 10/11 (Declined at this time) Start: 01-06-2024 End: 01-06-2024 Patient encounter procedure 01/06/2024 3:00 PM EDT Office Visit [facility] [address] [place] [phone] Odilon Barber [address] [place], [place] [phone] [facility] Start: 12-23-2023 End: 12-23-2023 Patient encounter procedure 12/23/2023 10:30 AM EDT Office Visit Cardiology [address] [place] [address] Palpitations [R00.2] Cardiology Comment on above: Palpitations [R00.2] Start: 12-19-2023 End: 03-19-2024 CBC panel - Blood by Automated count [facility] Comment on above: Expected: 12/19/2023, Expires: Start: 12-19-2023 End: 03-19-2024 Comprehensive metabolic 2000 panel - Serum or Plasma [facility] Comment on above: Expected: 12/19/2023, Expires: 4 Start: 12-19-2023 End: 03-19-2024 Magnesium [Mass/volume] in Serum or Plasma [facility] Comment on above: Expected: 12/19/2023, Expires: 4 Start: 12-19-2023 End: 03-19-2024 Thyrotropin [Units/volume] in Serum or Plasma [facility] Comment on above: Expected: 12/19/2023, Expires: 4 Start: 11-27-2023 Covid-19 Vaccine () Covid-19 Vaccine () [facility] Start: 11-27-2023 COVID-19 Vaccine () COVID-19 Vaccine () [facility] Start: 11-27-2023 Influenza vaccination [facility] Start: 11-10-2023 End: 11-10-2023 Patient encounter procedure 11/10/2023 1:20 PM EDT Office Visit [facility] [address] [place], [place] [phone] Gela Medina APRN.AERIAL PHOTOGRAMMETRIST [address] [place] [address] 3 month follow up [facility] Comment on above: 3 month follow up Start: 10-14-2023 End: 10-13-2024 CBC W Auto Differential panel - Blood CBC auto differential Lab Routine Long-term use of high-risk medication Expected: 10/14/2023 (Approximate), Expires: 10/13/2024 [facility] Work Phone: Comment on above: Expected: 10/14/2023 (Approximate), Expi res: 10/13/2024 Start: 10-14-2023 End: 10-13-2024 Comprehensive metabolic 1998 panel - Serum or Plasma Comprehensive metabolic panel Lab Routine Long-term use of high-risk medication Expected: 10/14/2023 (Approximate), Expires: 10/13/2024 [facility] Comment on above: Expected: 10/14/2023 (Approximate), Expi res: 10/13/2024 Start: 10-14-2023 End: 10-13-2024 Hepatitis B virus surface Ag [Presence] in Serum or Plasma by Immunoassay Hepatitis B surface antigen Lab Routine Long-term use of high-risk medication Expected: 10/14/2023 (Approximate), Expires: 10/13/2024 [facility] Comment on above: Expected: 10/14/2023 (Approximate), Expi res: 10/13/2024 Start: 10-14-2023 End: 10-13-2024 Hepatitis C virus Ab [Presence] in Serum or Plasma by Immunoassay Hepatitis C antibody Lab Routine Long-term use of high-risk medication Expected: 10/14/2023 (Approximate), Expires: 10/13/2024 [facility] Comment on above: Expected: 10/14/2023 (Approximate), Expi res: 10/13/2024 Start: 10-14-2023 End: 10-13-2024 HIV 1+2 Ab+HIV1 p24 Ag [Presence] in Serum or Plasma by Immunoassay HIV-1 and HIV-2 Antigen-Antibody Screen Lab Routine Long-term use of high-risk medication Expected: 10/14/2023 (Approximate), Expires: 10/13/2024 [facility] Comment on above: Expected: 10/14/2023 (Approximate), Expi res: 10/13/2024 Start: 10-14-2023 End: 10-13-2024 QUANTIFERON TB GOLD QUANTIFERON TB GOLD Lab Routine Long-term use of high-risk medication Expected: 10/14/2023 (Approximate), Expires: 10/13/2024 [facility] Comment on above: Expected: 10/14/2023 (Approximate), Expi res: 10/13/2024 Start: 10-07-2023 ANNUAL PCP TEAM CHRONIC DISEASE VISIT ANNUAL PCP TEAM CHRONIC DISEASE VISIT [facility] Start: 09-25-2023 ANNUAL PCP TEAM CHRONIC DISEASE VISIT ANNUAL PCP TEAM CHRONIC DISEASE VISIT [facility] Start: 09-25-2023 Hemoglobin A1c measurement HbA1C [facility] Start: 09-25-2023 Influenza vaccination Influenza Vaccine (#1) [facility] Comment on above: Postponed from 11/26/2022 (Declined at t his time) Start: 09-15-2023 Diabetes: Estimated Glomerular Filtration Rate for [facility] Health Diabetes: Estimated Glomerular Filtration Rate for Kid[facility] Health [facility] Start: 09-09-2023 End: 09-09-2023 Patient encounter procedure 09/09/2023 2:40 PM EDT Office Visit Endocrinology [address] [place] [address] Amada Gandhi MD [address] [place] [address] 3 MTH F/U DIABETES Endocrinology Comment on above: 3 MTH F/U DIABETES Start: 09-03-2023 Hepatitis B screening URINE ALBUMIN:CREATININE RATIO [facility] Start: 09-03-2023 Hepatitis B surface antibody level LDL CHOLESTEROL [facility] Start: 08-31-2023 End: 08-08-2024 CBC panel - Blood by Automated count CBC Lab Routine On methotrexate therapy Expected: 08/31/2023 (Approximate), Expires: 08/08/2024 [facility] Comment on above: Expected: 08/31/2023 (Approximate), Expi res: 08/08/2024 Start: 08-31-2023 End: 08-08-2024 Comprehensive metabolic 1998 panel - Serum or Plasma Comprehensive metabolic panel Lab Routine On methotrexate therapy Expected: 08/31/2023 (Approximate), Expires: 08/08/2024 [facility] Work Phone: Comment on above: Expected: 08/31/2023 (Approximate), Expi res: 08/08/2024 Start: 08-09-2023 End: 08-09-2023 Patient encounter procedure 08/09/2023 4:00 PM EDT Office Visit [facility] [address] [place] [phone] Josiah Dudley DO [address] [place] [id number] [facility] Start: 08-08-2023 End: 08-08-2023 Patient encounter procedure 08/08/2023 3:45 PM EDT Office Visit General Surgery [address] [place] [phone] Odilon Humphrey MD [address] [place], [place] [address] Positive FIT (fecal immunochemical test-through insurance, no record in chart), no prior colonoscopy- [facility] Comment on above: Positive FIT (fecal immunochemical test- through insurance, no record in chart), no prior colonoscopy- [facility] Start: 08-08-2023 End: 08-08-2023 Patient encounter procedure 08/08/2023 2:20 PM EDT Office Visit [facility] [address] [place], [place] [phone] Gela Medina APRN.AERIAL PHOTOGRAMMETRIST [address] [place], [place] [address] 3 month follow up [facility] Comment on above: 3 month follow up Start: 07-15-2023 ANNUAL PCP TEAM CHRONIC DISEASE VISIT ANNUAL PCP TEAM CHRONIC DISEASE VISIT [facility] Start: 07-15-2023 BP CONTROLLED (<130/80) BP CONTROLLED (<130/80) [facility] in Start: 07-08-2023 Hemoglobin A1c/Hemoglobin.total in Blood HbA1C [facility] Start: 06-07-2023 End: 09-06-2023 Cortisol [Mass/volume] in Serum or Plasma --post dose dexamethasone CORTISOL SUPRES POST Lab Routine Type 2 diabetes mellitus with diabetic nephropathy, with long-term current use of insulin ([facility]) Class 1 obesity with serious comorbidity and body mass index (BMI) of 31.0 to 31.9 in adult, unspecified obesity type Expected: 06/07/2023, Expires: 09/06/2023 [facility] Work Phone: Comment on above: Expected: 06/07/2023, Expires: Start: 06-07-2023 End: 09-06-2023 DEXAMETHASONE DEXAMETHASONE Lab Routine Type 2 diabetes mellitus with diabetic nephropathy, with long-term current use of insulin (HCC) Class 1 obesity with serious comorbidity and body mass index (BMI) of 31.0 to 31.9 in adult, unspecified obesity type Expected: 06/07/2023, Expires: 09/06/2023 [facility] Work Phone: Comment on above: Expected: 06/07/2023, Expires: Start: 04-14-2023 ANNUAL PCP TEAM CHRONIC DISEASE VISIT ANNUAL PCP TEAM CHRONIC DISEASE VISIT [facility] Start: 04-14-2023 Hemoglobin A1c measurement Diabetes: Hemoglobin A1C [facility] Start: 03-28-2023 Medicare Advantage Annual Wellness Visit Medicare Advantage Annual Wellness Visit [facility] Start: 03-10-2023 End: 03-10-2023 Patient encounter procedure [facility] Start: 03-04-2023 Hemoglobin A1c/Hemoglobin.total in Blood HBA1C [facility] Start: 01-28-2023 Glaucoma screening Dilated Retinal Exam [facility] Start: 01-28-2023 Hepatitis C antibody, confirmatory test DILATED RETINAL EXAM [facility] Start: 01-14-2023 End: 01-14-2023 Patient encounter procedure 01/14/2023 1:00 PM EDT Office Visit [facility] [address] [place] [phone] Olimpia Anne MD [address] [place] [address] [facility] Start: 01-11-2023 ANNUAL PCP TEAM CHRONIC DISEASE VISIT ANNUAL PCP TEAM CHRONIC DISEASE VISIT [facility] Start: 01-11-2023 Hepatitis B screening URINE ALBUMIN:CREATININE RATIO [facility] Start: 01-11-2023 Hepatitis B surface antibody level LDL CHOLESTEROL [facility] Start: 01-11-2023 Urine screening for protein Diabetes: Urine Protein Screening [facility] Start: 01-10-2023 End: 03-12-2023 Calcium.ionized [Moles/volume] in Blood CALCIUM IONIZED BLOOD Lab Routine Hypercalcemia Expected: 01/10/2023, Expires: 03/12/2023 [facility] Work Phone: Comment on above: Expected: 01/10/2023, Expires: Start: 01-10-2023 End: 03-12-2023 Parathyrin.intact [Mass/volume] in Serum or Plasma PTH INTACT BLD Lab Routine Hypercalcemia Expected: 01/10/2023, Expires: 03/12/2023 [facility] Work Phone: Comment on above: Expected: 01/10/2023, Expires: 3 Start: 11-26-2022 Covid-19 Vaccine () Covid-19 Vaccine () [facility] Start: 11-26-2022 Influenza vaccination [facility] Start: 09-25-2022 End: 11-25-2022 ALBUMIN/CREAT RATIO RND UR ALBUMIN/CREAT RATIO RND UR Lab Routine Poorly controlled type 2 diabetes mellitus (HCC) Expected: 09/25/2022, Expires: 11/25/2022 [facility] Work Phone: Comment on above: Expected: 09/25/2022, Expires: 3 Start: 09-25-2022 End: 11-25-2022 Comprehensive metabolic 2000 panel - Serum or Plasma COMP METABOLIC PANEL Lab Routine Poorly controlled type 2 diabetes mellitus (HCC) Expected: 09/25/2022, Expires: 11/25/2022 [facility] Work Phone: Comment on above: Expected: 09/25/2022, Expires: 3 Start: 09-25-2022 End: 11-25-2022 Hemoglobin A1c in Blood HGB A1C Lab Routine Poorly controlled type 2 diabetes mellitus (HCC) Expected: 09/25/2022, Expires: 11/25/2022 [facility] Work Phone: Comment on above: Expected: 09/25/2022, Expires: 3 Start: 09-25-2022 End: 11-25-2022 LIPID PANEL, NONFASTING LIPID PANEL, NONFASTING Lab Routine Poorly controlled type 2 diabetes mellitus (HCC) Expected: 09/25/2022, Expires: 11/25/2022 [facility] Work Phone: Comment on above: Expected: 09/25/2022, Expires: 3 Start: 09-24-2022 End: 11-24-2022 Urinalysis complete panel - Urine URINALYSIS WITH MICROSCOPIC, REFLEX CULTURE Lab Routine Nausea and vomiting, unspecified vomiting type Leukocytosis, unspecified type Expected: 09/24/2022, Expires: 11/24/2022 [facility] Work Phone: Comment on above: Expected: 09/24/2022, Expires: Start: 09-14-2022 End: 09-15-2023 C reactive protein [Mass/volume] in Serum or Plasma C-reactive protein Lab Routine High risk medication use Special screening examination for viral disease Blood tests prior to treatment or procedure Expected: 09/14/2022 (Approximate), Expires: 09/15/2023 [facility] Work Phone: Comment on above: Expected: 09/14/2022 (Approximate), Expi res: 09/15/2023 Start: 09-14-2022 End: 09-15-2023 CBC W Auto Differential panel - Blood CBC auto differential Lab Routine High risk medication use Special screening examination for viral disease Blood tests prior to treatment or procedure Expected: 09/14/2022 (Approximate), Expires: 09/15/2023 [facility] Comment on above: Expected: 09/14/2022 (Approximate), Expi res: 09/15/2023 Start: 09-14-2022 End: 09-15-2023 Comprehensive metabolic 1998 panel - Serum or Plasma Comprehensive metabolic panel Lab Routine High risk medication use Special screening examination for viral disease Blood tests prior to treatment or procedure Expected: 09/14/2022 (Approximate), Expires: 09/15/2023 [facility] Comment on above: Expected: 09/14/2022 (Approximate), Expi res: 09/15/2023 Start: 09-14-2022 End: 09-15-2023 Erythrocyte sedimentation rate Sedimentation rate, automated Lab Routine High risk medication use Special screening examination for viral disease Blood tests prior to treatment or procedure Expected: 09/14/2022 (Approximate), Expires: 09/15/2023 [facility] Comment on above: Expected: 09/14/2022 (Approximate), Expi res: 09/15/2023 Start: 09-14-2022 End: 09-15-2023 Hepatitis B core antibody, total Hepatitis B core antibody, total Lab Routine High risk medication use Special screening examination for viral disease Blood tests prior to treatment or procedure Expected: 09/14/2022 (Approximate), Expires: 09/15/2023 [facility] Comment on above: Expected: 09/14/2022 (Approximate), Expi res: 09/15/2023 Start: 09-14-2022 End: 09-15-2023 Hepatitis B virus core IgM Ab [Presence] in Serum or Plasma by Immunoassay Hepatitis B core antibody, IgM Lab Routine High risk medication use Special screening examination for viral disease Blood tests prior to treatment or procedure Expected: 09/14/2022 (Approximate), Expires: 09/15/2023 [facility] Comment on above: Expected: 09/14/2022 (Approximate), Expi res: 09/15/2023 Start: 09-14-2022 End: 09-15-2023 Hepatitis B virus surface Ab [Units/volume] in Serum or Plasma by Immunoassay Hepatitis B surface antibody Lab Routine High risk medication use Special screening examination for viral disease Blood tests prior to treatment or procedure Expected: 09/14/2022 (Approximate), Expires: 09/15/2023 [facility] Comment on above: Expected: 09/14/2022 (Approximate), Expi res: 09/15/2023 Start: 09-14-2022 End: 09-15-2023 Hepatitis B virus surface Ag [Presence] in Serum or Plasma by Immunoassay Hepatitis B surface antigen Lab Routine High risk medication use Special screening examination for viral disease Blood tests prior to treatment or procedure Expected: 09/14/2022 (Approximate), Expires: 09/15/2023 [facility] Comment on above: Expected: 09/14/2022 (Approximate), Expi res: 09/15/2023 Start: 09-14-2022 End: 09-15-2023 Hepatitis C virus Ab [Presence] in Serum or Plasma by Immunoassay Hepatitis C antibody Lab Routine High risk medication use Special screening examination for viral disease Blood tests prior to treatment or procedure Expected: 09/14/2022 (Approximate), Expires: 09/15/2023 [facility] Comment on above: Expected: 09/14/2022 (Approximate), Expi res: 09/15/2023 Start: 09-14-2022 End: 09-15-2023 QUANTIFERON TB GOLD QUANTIFERON TB GOLD Lab Routine High risk medication use Special screening examination for viral disease Blood tests prior to treatment or procedure Expected: 09/14/2022 (Approximate), Expires: 09/15/2023 [facility] Comment on above: Expected: 09/14/2022 (Approximate), Expi res: 09/15/2023 Start: 09-14-2022 End: 09-14-2022 Patient encounter procedure 09/14/2022 Office Visit Rheumatology Olimpia Anne MD [address] [place] [address] [facility] Start: 09-11-2022 ANNUAL PCP TEAM CHRONIC DISEASE VISIT ANNUAL PCP TEAM CHRONIC DISEASE VISIT [facility] Start: 09-11-2022 BP CONTROLLED (<130/80) BP CONTROLLED (<130/80) [facility] Start: 09-11-2022 COVID-19 VACCINE (4 - Booster for Moderna series) COVID-19 VACCINE (4 - Booster for Moderna series) [facility] Comment on above: Postponed from 07/30/2021 (Declined at t his time) Postponed from 05/27 (Declined at this time) Start: 09-11-2022 HEPATITIS B (1 of 3 - Risk 3-dose series) [facility] Comment on above: Postponed from 1988 (Declined at t his time) Postponed from 10/11 (Declined at this time) Start: 07-28-2022 End: 07-28-2022 Patient encounter procedure 07/28/2022 Office Visit Rheumatology Olimpia Anne MD [address] [place], [place] [phone] [facility] Start: 07-13-2022 Hemoglobin A1c/Hemoglobin.total in Blood HBA1C [facility] Start: 07-12-2022 Hemoglobin A1c/Hemoglobin.total in Blood HBA1C [facility] Start: 06-12-2022 3 comp foot exam completed DIABETIC FOOT EXAM [facility] Start: 06-12-2022 ANNUAL PCP TEAM CHRONIC DISEASE VISIT ANNUAL PCP TEAM CHRONIC DISEASE VISIT [facility] Start: 06-12-2022 COLORECTAL CANCER SCREENING COLORECTAL CANCER SCREENING [facility] Comment on above: Postponed from 2014 (Declined at t his time) Start: 06-12-2022 Diabetic foot examination Diabetic Foot Exam [facility] Start: 06-12-2022 HPV TESTING HPV TESTING [facility] Comment on above: Postponed from 11/30/2018 (Declined at t his time) Start: 06-12-2022 PAP TESTING PAP TESTING [facility] Comment on above: Postponed from 11/30/2018 (Declined at t his time) Start: 06-12-2022 SHINGRIX VACCINE (1 of 2) SHINGRIX VACCINE (1 of 2) [facility] Comment on above: Postponed from 10/12/2019 (Declined at t his time) Postponed from 10/11 (Declined at this time) Start: 06-12-2022 Urine microalbumin profile DTAP,TDAP,TD (1 - Tdap) [facility] Comment on above: Postponed from 1988 (Declined at t his time) Start: 06-09-2022 End: 06-09-2022 Patient encounter procedure 06/09/2022 Office Visit Rheumatology Olimpia Anne MD [address] [place] [address] [facility] Start: 04-21-2022 End: 06-21-2022 Glutamate decarboxylase 65 Ab [Units/volume] in Serum GLUTAMIC AC DECARBOXYLASE AB Lab Routine Poorly controlled type 2 diabetes mellitus (HCC) Expected: 04/21/2022, Expires: 06/21/2022 [facility] Work Phone: Comment on above: Expected: 04/21/2022, Expires: 3 Start: 04-21-2022 End: 06-21-2022 Pancreatic islet cell Ab [Titer] in Serum ISLET CELL AB Lab Routine Poorly controlled type 2 diabetes mellitus (HCC) Expected: 04/21/2022, Expires: 06/21/2022 [facility] Work Phone: Comment on above: Expected: 04/21/2022, Expires: 3 Start: 02-27-2022 Hemoglobin A1c/Hemoglobin.total in Blood HBA1C [facility] Start: 01-12-2022 Hepatitis B screening URINE ALBUMIN:CREATININE RATIO [facility] Start: 01-12-2022 Hepatitis B surface antibody level LDL CHOLESTEROL [facility] Start: 01-11-2022 End: 03-13-2022 ALBUMIN/CREAT RATIO RND UR [facility] Work Phone: Comment on above: Expected: 01/11/2022, Expires: Start: 12-18-2021 End: 02-17-2022 CBC W Auto Differential panel - Blood CBC + DIFF Lab Routine Essential hypertension Expected: 12/18/2021 (Approximate), Expires: 02/17/2022 [facility] Work Phone: Comment on above: Expected: 12/18/2021 (Approximate), Expi res: 02/17/2022 Start: 12-18-2021 End: 02-17-2022 Comprehensive metabolic 2000 panel - Serum or Plasma COMP METABOLIC PANEL Lab Routine Hyperlipidemia, unspecified hyperlipidemia type Essential hypertension Type 2 diabetes mellitus with diabetic nephropathy, with long-term current use of insulin (HCC) Expected: 12/18/2021 (Approximate), Expires: 02/17/2022 [facility] Work Phone: Comment on above: Expected: 12/18/2021 (Approximate), Expi res: 02/17/2022 Start: 12-18-2021 End: 02-17-2022 Hemoglobin A1c in Blood HGB A1C Lab Routine Type 2 diabetes mellitus with diabetic nephropathy, with long-term current use of insulin (HCC) Expected: 12/18/2021 (Approximate), Expires: 02/17/2022 [facility] Work Phone: Comment on above: Expected: 12/18/2021 (Approximate), Expi res: 02/17/2022 Start: 12-18-2021 End: 02-17-2022 Hepatitis C virus Ab [Presence] in Serum HEP C AB IA W/CONF SCRN Lab Routine Special screening examination for viral disease Expected: 12/18/2021 (Approximate), Expires: 02/17/2022 [facility] Work Phone: Comment on above: Expected: 12/18/2021 (Approximate), Expi res: 02/17/2022 Start: 12-18-2021 End: 02-17-2022 HIV 1+2 Ab [Presence] in Serum or Plasma by Immunoassay HIV 1 2 COMBO(AG/AB),WITH REFLEX TO DIFFERENTIATION Lab Routine Screening for HIV (human immunodeficiency virus) Expected: 12/18/2021 (Approximate), Expires: 02/17/2022 [facility] Work Phone: Comment on above: Expected: 12/18/2021 (Approximate), Expi res: 02/17/2022 Start: 12-18-2021 End: 02-17-2022 Lipid 1996 panel - Serum or Plasma LIPID PANEL BASIC Lab Routine Hyperlipidemia, unspecified hyperlipidemia type Expected: 12/18/2021 (Approximate), Expires: 02/17/2022 [facility] Work Phone: Comment on above: Expected: 12/18/2021 (Approximate), Expi res: 02/17/2022 Start: 11-26-2021 Influenza vaccination INFLUENZA (#1) [facility] Start: 08-27-2021 End: 10-27-2021 Hemoglobin A1c/Hemoglobin.total in Blood HGB A1C Lab Routine Type 2 diabetes mellitus with diabetic nephropathy, unspecified whether prison insulin use (HCC) Expected: 08/27/2021, Expires: 10/27/2021 [facility] Work Phone: Comment on above: Expected: 08/27/2021, Expires: Start: 08-26-2021 Hemoglobin A1c/Hemoglobin.total in Blood HBA1C [facility] Start: 08-10-[address] [facility] Work Phone: Start: 07-30-2021 COVID-19 VACCINE (4 - Booster for Moderna series) COVID-19 VACCINE (4 - Booster for Moderna series) [facility] Start: 05-27-2021 COVID-19 Vaccine (4 - Booster for Moderna series) COVID-19 Vaccine (4 - Booster for Moderna series) [facility] Start: 05-27-2021 COVID-19 VACCINE (4 - Moderna series) COVID-19 VACCINE (4 - Moderna series) [facility] Start: 01-09-2021 PNEUMOCOCCAL (3 - PPSV23 if available, else PCV20) PNEUMOCOCCAL (3 - PPSV23 if available, else PCV20) [facility] Start: 04-05-2020 Mammography [facility] Start: 04-05-2020 Screening for malignant neoplasm of breast Mammogram Screening [facility] Start: 10-12-2019 SHINGRIX VACCINE (1 of 2) SHINGRIX VACCINE (1 of 2) [facility] Start: 10-12-2019 Zoster Vaccines (1 of 2) Zoster Vaccines (1 of 2) [facility] Start: 12-31-2018 Hepatitis C antibody, confirmatory test DILATED RETINAL EXAM [facility] Start: 11-30-2018 HPV TESTING HPV TESTING [facility] Start: 11-30-2018 PAP TESTING PAP TESTING [facility] Start: 11-30-2018 Screening for malignant neoplasm of cervix [facility] Start: 11-30-2016 Screening for malignant neoplasm of cervix Cervical Cancer Screening [facility] Start: 11-30-2014 Screening for malignant neoplasm of cervix Cervical Cancer Screening [facility] Start: 2014 COLOGUARD (FIT-DNA) COLOGUARD (FIT-DNA) [facility] Start: 2014 Colonoscopy COLONOSCOPY [facility] Start: 2014 COLORECTAL CANCER SCREENING COLORECTAL CANCER SCREENING [facility] Start: [address] COLONOGRAPHY [facility] Start: 2014 FECAL OCCULT BLOOD FECAL OCCULT BLOOD [facility] Start: 2014 Screening for malignant neoplasm of colon [facility] Start: 2014 SIGMOIDOSCOPY SIGMOIDOSCOPY [facility] [facility] Start: 2009 Screening for malignant neoplasm of breast Mammogram [facility] Start: 03-06-2009 MMR Vaccines (1 of 1 - Standard series) MMR Vaccines (1 of 1 - Standard series) [facility] Start: 10-12-1999 Screening for malignant neoplasm of cervix [facility] Start: 1990 Screening for malignant neoplasm of cervix Pap Smear [facility] Start: 1988 HEPATITIS B (1 of 3 - Risk 3-dose series) HEPATITIS B (1 of 3 - Risk 3-dose series) [facility] Start: 1988 Hepatitis B Vaccine (1 of 3 - 19+ 3-dose series) Hepatitis B Vaccine (1 of 3 - 19+ 3-dose series) [facility] Start: 1988 Hepatitis B Vaccines (1 of 3 - 19+ 3-dose series) Hepatitis B Vaccines (1 of 3 - 19+ 3-dose series) [facility] Start: 1988 SHINGRIX VACCINE (1 of 2) SHINGRIX VACCINE (1 of 2) [facility] Start: 10-12-1987 BP CONTROLLED (<130/80) BP CONTROLLED (<130/80) [facility] Start: 10-12-1987 Diabetes: Urine Albumin-Creatinine Ratio for Kidney Health Diabetes: Urine Albumin-Creatinine Ratio for Kidney Health [facility] Start: 10-12-1987 HEPATITIS C SCREENING HEPATITIS C SCREENING [facility] Start: 10-12-1987 HIV SCREENING HIV SCREENING [facility] Start: 1981 Depression Monitoring Depression Monitoring [facility] Start: 1981 Depression Screening Depression Screening [facility] Start: 10-12-1979 Diabetic foot examination Diabetes: Foot Exam [facility] Start: 10-12-1979 Glaucoma screening Diabetes: Retinopathy Screening [facility] Start: 10-12-1979 Preventive dental service Diabetes: Dental Exam [facility] Start: 1969 Hemoglobin A1c measurement Diabetes: Hemoglobin A1C [facility] Start: 1969 HEPATITIS B (1 of 3 - 3-dose series) HEPATITIS B (1 of 3 - 3-dose series) [facility] Start: 1969 Hepatitis B Vaccine (1 of 3 - 3-dose series) Hepatitis B Vaccine (1 of 3 - 3-dose series) [facility] Start: 1969 Hepatitis B Vaccines (1 of 3 - 3-dose series) Hepatitis B Vaccines (1 of 3 - 3-dose series) [facility] Start: 1969 HIV screening HIV Screening [facility] Start: 1969 Lipid panel Lipid Panel [facility] Start: 1969 Medicare Advantage Annual Wellness Visit (AWV) Medicare Advantage Annual Wellness Visit (AWV) [facility] Start: 1969 Screening for malignant neoplasm of colon [facility] End: 03-10-2024 CBC panel - Blood by Automated count CBC Lab Routine 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) (HCC) High risk medication use Every 12 weeks for 3 Occurrences starting 03/10/2023 until 03/10/2024 [facility] Comment on above: Every 12 weeks for 3 Occurrences startin g 03/10/2023 until 03/10/2024 End: 03-10-2024 Comprehensive metabolic 1998 panel - Serum or Plasma Comprehensive metabolic panel Lab Routine 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) (HCC) High risk medication use Every 12 weeks for 3 Occurrences starting 03/10/2023 until 03/10/2024 [facility]: Comment on above: Every 12 weeks for 3 Occurrences startin g 03/10/2023 until 03/10/2024 End: 06-10-2025 DBT Breast - bilateral screening TORRI SCREENING W GIBRAN Radiology Routine Encounter for screening mammogram for breast cancer 1 Occurrences starting 05/11/2024 until 06/10/2025 [facility] Work Phone: Comment on above: 1 Occurrences starting 05/11/2024 until 06/10/2025 ECG COMPLETE ECG COMPLETE ECG Routine Palpitations Shortness of breath Pre-syncope Ordered: 12/19/2023 [facility] Work Phone: Comment on above: Ordered: 12/19/2023 End: 12-18-2024 Echocardiography ECHO Cardiology Routine Palpitations Shortness of breath Pre-syncope MVP (mitral valve prolapse) 1 Occurrences starting 12/19/2023 until 12/18/2024 [facility] Comment on above: 1 Occurrences starting 12/19/2023 until 12/18/2024 TORRI SCREENING TORRI SCREENING Ra diology Routine Encounter for screening mammogram for breast cancer 05/03/2023 1:31 PM EST [facility] Work Phone: OUTSIDE PROCEDURE SCAN OUTSIDE P ROCEDURE SCAN Procedures Ordered: 06/21/2022 [facility] Comment on above: Ordered: 06/21/2022 OUTSIDE VENDOR CARDI AC OUTPATIENT EXTENDED RHYTHM RECORDING (WITHOUT TELEMETRY) OUTSIDE VENDOR CARDIAC OUTPATIENT EXTENDED RHYTHM RECORDING (WITHOUT TELEMETRY) Holter Routine Palpitations Shortness of breath Pre-syncope Ordered: 12/19/2023 [facility] Comment on above: Ordered: 12/19/2023 Patient Education [facility] Work Phone: Patient referral [facility] Work Phone: [facility] Immunizations Immunization Date Immunization Notes Care Provider [facility] 01-11-2022 influenza, injectabl e, quadrivalent, contains preservative Gela Older MEDICAL AFFAIRS SPECIALIST.AERIAL PHOTOGRAMMETRIST Work Phone: [facility] 01-11-2022 influenza virus vacc ine, unspecified formulation Mariano Paiz MD Work Phone: [facility] 01-09-2021 influenza, injectabl e, quadrivalent, contains preservative Melyssa Mobley MD Work Phone: [facility] 01-10-2020 influenza, seasonal, injectable Melyssa Mobley MD Work Phone: [facility] 01-10-2020 pneumococcal conjuga te vaccine, 13 valent Melyssa Mobley MD Work Phone: [facility] 12-15-[address] Melyssa Mobley Work Phone: [facility] 12-15-2019 influenza, injectabl e, quadrivalent, preservative free Gela Older MEDICAL AFFAIRS SPECIALIST.AERIAL PHOTOGRAMMETRIST Work Phone: [facility] 12-15-2019 pneumococcal conjuga te vaccine, [address] Melyssa Mobley Work Phone: [facility] 12-15-2019 pneumococcal polysaccharide vaccine, 23 valent Gela Older MEDICAL AFFAIRS SPECIALIST.AERIAL PHOTOGRAMMETRIST Work Phone: [facility] 12-20-2018 Influenza, injectabl e, Madin Mica Canine Kidney, preservative free, quadrivalent Gela Older MEDICAL AFFAIRS SPECIALIST.AERIAL PHOTOGRAMMETRIST Work Phone: [facility] 01-13-2018 influenza, injectabl e, quadrivalent, contains preservative Melyssa Mobley MD Work Phone: [facility] 12-20-2016 influenza, injectabl e, quadrivalent, preservative free Gela Older MEDICAL AFFAIRS SPECIALIST.AERIAL PHOTOGRAMMETRIST Work Phone: [facility] 12-26-2015 influenza, seasonal, injectable Melyssa Mobley MD Work Phone: [facility] 12-24-2015 pneumococcal conjuga te vaccine, 13 valent Melyssa Mobley MD Work Phone: [facility] 12-21-2015 influenza, injectabl e, quadrivalent, contains preservative Melyssa Mobley MD Work Phone: [facility] Work Phone: 02-26-2015 pneumococcal polysaccharide vaccine, 23 valent Melyssa Mobley MD Work Phone: [facility] Work Phone: 12-30-2014 influenza virus vacc ine, unspecified formulation Melyssa Mobley MD Work Phone: [facility] Work Phone: 03-28-2014 tetanus toxoid, redu phong diphtheria toxoid, and acellular pertussis vaccine, adsorbed Gela Older MEDICAL AFFAIRS SPECIALIST.AERIAL PHOTOGRAMMETRIST Work Phone: [facility] 02-06-2009 novel influenza-H1N1 -09, preservative-free, injectable Gela Older MEDICAL AFFAIRS SPECIALIST.AERIAL PHOTOGRAMMETRIST Work Phone: [facility] Payers Date Payer Category Payer Medicare [id number] 2024 Self-pay [id number] 2022 Unknown [id number] 2019 Medicare (Managed Care) [id number] 2019 Medicare HMO [id number] 2019 Unknown ANTHEM BLUE CROS S AND BLUE SHIELD ANTHEM MEDIBLUE HMO [id number] 2019-Present [phone] [address] [place] [address] HMO [id number] 2019 Unknown [id number] 2019 Unknown [id number] 2018 Medicaid [employer] A[employer] [facility] [id number] 2018-Present [phone] [address] [place] [address] Medicaid [id number] 2017 Medicare [id number] 2015 Medicaid [id number] 2015 Medicaid HMO [employer] MY[employer] EOHIO MEDICAID ONLY [id number] 2015 Unknown [id number] 1969 Unknown [id number] Medicare [id number] Private Health Insurance [facility] [id number] Unknown [id number] Unknown [id number] Unknown [id number] Unknown [id number] Unknown [id number] Social History Date Type Detail Facility Start: 09-07-2018 Never smoked t obacco (finding) [facility]igned At [facility] Start: 04-18-2013 End: 01-25-2022 Tobacco smoking status NCIS Smokes tobacco daily [facility] History of tobacco use Cigarette Smoker [facility] Start: 04-18-2013 End: 12-26-2024 Cigarettes smoked current (pack per day) - Reported 0.5 [facility] Start: 04-18-2013 End: 01-25-2022 Tobacco use and exposure Smokeless tobacco non-user [facility] Start: 06-16-2021 End: 05-21-2024 Alcohol intake Current non-drinker of alcohol (finding) [facility] Start: 10-17-2019 End: 01-20-2021 History SDOH Alcohol Frequency 1 [facility] Start: 01-03-2020 History SDOH Alcohol Std Drinks 98 [facility] Start: 01-03-2020 History SDOH Social Connections Phone 5 [facility] Start: 07-23-2019 End: 07-14-2022 History SDOH Social Connections Get Together 3 [facility] Start: 07-23-2019 End: 07-14-2022 History SDOH Social Connections Membership 2 [facility] Start: 07-23-2019 End: 07-14-2022 History SDOH Social Connections Living 8 [facility] Start: 01-03-2020 End: 07-14-2022 History SDOH Physical Activity DPW 0 [facility] Start: 07-23-2019 Education 15 [facility] Start: 1970 Sex Assigned At Not on file [facility] Start: 06-06-2021 End: 03-10-2022 Exposure to SARS-CoV-2 (event) Not sure [facility] Start: 07-19-2021 End: 09-08-2022 Tobacco smoking status NHIS Unknown if ever smoked [facility] Start: 01-11-2020 Cigarettes [facility] Start: 1970 Sex Assigned At Female W [facility] Start: 09-01-2021 End: 09-11-2021 Exposure to SARS-CoV-2 (event) Unable to assess [facility] Start: 06-09-2022 End: 12-26-2024 Alcohol intake Lifetime non-drinker (finding) [facility] Start: 07-14-2022 History SDOH Social Connections Phone 4 [facility] Start: 06-09-2022 End: 12-26-2024 Tobacco use panel [facility] Do you belong to any clubs or organizations such as religion groups, unions, fraternal or athletic groups, or school groups? No [facility] Are you now , , , , never or living with a partner? Living with partner [facility] How often to you hav e a drink containing alcohol? Never [facility] How many standard dr inks containing alcohol do you have on a typical day? Patient does not drink [facility] How hard is it for y ou to pay for the very basics like food, housing, medical care, and heating Somewhat hard [facility] Do you feel stress - tense, restless, nervous, or anxious, or unable to sleep at night because your mind is troubled all the time - these days [OSQ] Not at all [facility] (I/We) worried wheth er (my/our) food would run out before (I/we) got money to buy more. Sometimes true [facility] Do you feel stress - tense, restless, nervous, or anxious, or unable to sleep at night because your mind is troubled all the time - these days [OSQ] To some extent [facility] The food that (I/we) bought just didn't last, and (I/we) didn't have money to get more. Never true [facility] Start: 10-26-2021 [facility] (finding) [facility] How often do you hav e 6 or more drinks on 1 occasion? Less than monthly [facility] Do you feel stress - tense, restless, nervous, or anxious, or unable to sleep at night because your mind is troubled all the time - these days [OSQ] Only a little [facility] Medical Equipment Procedure Code Equipment Code Equipment Origin al Text Equipment Identifier Dates [id number], [id number], [id number], [id number], [id number], [id number], [id number], [id number], [id number], [id number], [id number] Start: 04-09-2019 End: 02-17-2024 Comment on above: Use to test blood barragan gars twice daily as directed. Dx: E11.21 Use to inject insuli n twice daily as directed. Test blood sugar(s) 2 times daily. Dx: Type 2 DM - Uncontrolled E11.65 Insulin: Yes Use with insulin inj ection 2 times daily Use to test blood barragan gars twice daily as instructed Test blood sugar(s) 4 times daily. Dx: Type 2 DM - Controlled E11.9 , Insulin: Yes Blood Sugar Diagnostic (Onetouch Ultra Test) strip Start: 08-31-2024 Lancets (Onetouc h Delica Plus Lancet) [facility] Start: 08-31-2024 Pen Needle, Diabetic (Easy Touch) 31 gauge x 3/16 needle Start: 08-31-2024 Blood Sugar Diagnostic (Onetouch Ultra Test) strip Start: 08-31-2024 Lancets (Onetouc h Delica Plus Lancet) 33 gauge misc Start: 08-31-2024 Pen Needle, Diabetic (Easy Touch) 31 gauge x 3/16 needle Start: 08-31-2024 Functional Status Date Assessment Result Facility 05-11-2024 Total score [AUDIT-C] 1 05/11/19 1:18 PM EST User, [email or web address] [facility] 05-11-2024 Within the last year , have you been humiliated or emotionally abused in other ways by your partner or ex-partner? No 05/11/2024 1:18 PM EST User, [email or web address] No [facility] 05-11-2024 Within the last year , have you been afraid of your partner or ex-partner? No 05/11/2024 1:18 PM EST User, [email or web address] No [facility] 05-11-2024 Within the last year , have you been raped or forced to have any kind of sexual activity by your partner or ex-partner? No 05/11/2024 1:18 PM EST User, [email or web address] No [facility] 05-11-2024 Within the last year , have you been kicked, hit, slapped, or otherwise physically hurt by your partner or ex-partner? No 05/11/2024 1:18 PM EST User, [email or web address] No [facility] 05-11-2024 How often to you hav e a drink containing alcohol? Never 05/11/2024 1:18 PM EST User, Mychart Never [facility] 05-11-2024 Functional status Patient does n ot drink 05/11/2024 1:18 PM EST User, [email or web address] Patient does not drink [facility] 05-11-2024 How often do you hav e 6 or more drinks on 1 occasion? Less than monthly 05/11/2024 1:18 PM EST User, [email or web address] Less than monthly [facility] 06-18-2022 Functional Status Room check performed [facility] 10-15-2014 Are you deaf, or do you have serious difficulty hearing No 10/15/2014 4:24 PM Sharon Briseno LPN No [facility] 10-15-2014 Are you blind, or do you have serious difficulty seeing, even when wearing glasses No 10/15/2014 4:24 PM Sharon Briseno LPN No [facility] 10-15-2014 Do you have serious difficulty walking or climbing stairs No 10/15/2014 4:24 PM Sharon Briseno LPN No [facility] 10-15-2014 Do you have difficul ty dressing or bathing Yes 10/15/2014 4:24 PM EDT Sharon Cuenca LPN Yes [facility] 10-15-2014 Because of a physica l, mental, or emotional condition, do you have difficulty doing errands alone such as visiting a physician's office or shopping Yes 10/15/2014 4:24 PM EDT Sharon Cuenca LPN Yes [facility] Mental Status Date Assessment Result Facility 10-18-2024 Cognitive function Level Of Cons ciousness Awake;Alert;Appropriate;Fol lows Commands [facility] Work Phone: 09-08-2022 Cognitive function Level Of Cons ciousness Awake;Alert;Appropriate;Fol lows Commands [facility] Work Phone: 06-18-2022 Mental Status Oriented x 4 [facility] 10-15-2014 Because of a physica l, mental, or emotional condition, do you have serious difficulty concentrating, remembering, or making decisions No 10/15/2014 4:24 PM EDT Sharon Cuenca LPN No [facility] Clinical Notes 05-13-2021 to 01-15-2025 Odilon Barber MD - 12/26/2024 11:30 AM EDTTelephone Encounter - Laila Caraballo RN - 12/07/2024 4:41 PM EDTTelephone Encounter - Laila Caraballo RN - 12/07/2024 4:41 PM EDTPatient Instructions Note Date & Type Note Facility 01-15-2025 Note Patient Outreach (IN TMMN) JAROD RODARTE ([id number]) 1970 F Date Time Provider Department 01/15/25 MELYSSA MOBLEY During your visit today, we recorded the following information about you: Allergies As of Date: 01/15/2025 Noted Allergy Reaction PENICILLIN G 04/18/2013 7 - Swelling REQUIP (ROPINIROLE) 04/18/2013 14 - Other: See Comments Comments: seizures ENBREL (ETANERCEPT) 12/19/2023 14 - Other: See Comments Comments: Palpitations JARDIANCE (EMPAGLIFLOZIN) 01/02/2020 14 - Other: See Comments Comments: Yeast infections WELLBUTRIN (BUPROPION HCL) 08/08/2019 2 - Rash Date Reviewed: 01/08/2025 Reviewed by: Gudelia Ramirez LPN - Fully Assessed Visit Diagnosis: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 - amLODIPine (NORVASC) 5 mg tablet Take 1 tablet by mouth once daily. - atenolol (TENORMIN) 50 mg tablet Take 1 tablet by mouth once daily. - atorvastatin (LIPITOR) 40 mg tablet Take 1 tablet by mouth once daily. - ferrous sulfate 325 mg (65 mg iron) tablet Take 1 tablet by mouth every other day. - losartan (COZAAR) 100 mg tablet TAKE ONE-HALF TABLET BY MOUTH ONCE DAILY - montelukast (SINGULAIR) 10 mg tablet Take 1 tablet by mouth daily at bedtime. - pramipexole (MIRAPEX) 0.125 mg tablet take 1 tablet by mouth every afternoon if needed for RESTELESS LEGS - nystatin (MYCOSTATIN) powder Apply 1 application to affected area four times daily. - venlafaxine ER (EFFEXOR XR) 150 mg 24 hr capsule Take 1 capsule by mouth once daily. - Blood-Glucose Transmitter (ShareMeister G6 TRANSMITTER) catracho Change transmitter every 3 months - continuous glucose monitor, multiple insulin injections E-11.9 - omeprazole (PRILOSEC) 40 mg capsule Take 1 capsule by mouth once daily. - gabapentin (NEURONTIN) 300 mg capsule Take 1 capsule by mouth daily at bedtime for 180 days. - gabapentin (NEURONTIN) 100 mg capsule Take 1 capsule by mouth two times a day for 180 days. Take one in AM and one in afternoon. Take the 300mg before bed. - insulin glargine U-300 conc (TOUJEO MAX U-300 SOLOSTAR) 300 unit/mL (3 mL) inpn Inject subcutaneously 130 units daily - insulin lispro (HUMALOG KWIKPEN INSULIN) 100 unit/mL Inject 25 Units subcutaneously three times a day before meals. Inject 25 units with meals plus SS#2 (2 units for every 50 over 150) (1 units for every 10 grams of carbs). Limit of 100 units daily - fenofibrate nanocrystallized (TRICOR) 145 mg tablet Take 1 tablet by mouth once daily. - Blood-Glucose Transmitter (DEXCOM G6 TRANSMITTER) catracho 1 Each continuous. - folic acid 1 mg tablet Take 3 mg by mouth once daily. - ORENCIA CLICKJECT 125 mg/mL auto-injector Inject 1 mL subcutaneously one time a week. - Insulin Bradford, Disposable, (BD ULTRAFINE III MINI PEN) 31 gauge x 3/16 Use with insulin injection 2 times daily - Blood-Glucose Sensor (DEXCOM G6 SENSOR) catracho Change sensor every 10 days. USE FOR CONTINUOUS GLUCOSE MONITORING. MULTIPLE INSULIN INJECTIONS. E11.9 - hydrOXYzine HCl (ATARAX) 25 mg tablet Take 1 tablet by mouth three times a day as needed for anxiety. - blood sugar diagnostic (ONETOUCH ULTRA TEST) test strip Test blood sugar(s) 4 times daily. Dx: Type 2 DM - Controlled E11.9 , Insulin: Yes - Lancets (ONETOUCH ULTRASOFT LANCETS) lancets Test blood sugar(s) 4 times daily. Dx: Type 2 DM - Controlled E11.9 , Insulin: Yes - glucagon (GLUCAGON EMERGENCY KIT, HUMAN,) 1 mg injection Inject (1)one mg for insulin shock. - Blood-Glucose Meter,Continuous (DEXCOM G6 NAVAL SCIENCE TEACHER) misc 1 Each continuous. - ondansetron orally disintegrating (ZOFRAN ODT) 4 mg disintegrating tablet Take 1 tablet by mouth every 6 hours as needed for nausea/vomiting. - triamcinolone acetonide (NASACORT AQ) 55 mcg nasal inhaler Use 2 Sprays in the nose once daily. 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 Proteinuria [R80.9] 04/19/2013 Tendinitis of thumb [M77.8] 12/18/2014 Raynaud's syndrome [I73.00] 04/07/2015 Irritable bowel syndrome with diarrhea [K58.0] 02/28/2016 Restless legs [G25.81] 12/20/2016 Chronic pain syndrome [G89.4] 12/19/2017 Gastroesophageal reflux disease without esophag*06/12/2021 Thrombocytosis [D75.839] 06/16/2021 Moderate smoker (20 or less per day) [F17.210] 06/30/2021 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), ma*04/09/2024 Encounter Status:Closed by SHANNAN FISHER on 01/18/25 [facility] 01-08-2025 Note HNO ID: [id number] Author: MELYSSA MOBLEY MD Service: ? Author Type: Physician Type: Progress Notes Filed: 01/08/2025 18:17 Note Text: Jarod Rodarte is a 54 year old female here for a Medicare wellness visit. Medicare Health Risk Assessment General Health Good Exercise: Minutes/Day 150+ min Exercise: Days/Week 7 days Alcohol: Daily Use Never Alcohol: Drinks/Day Patient does not drink Alcohol: 6 or more drinks Never Feel off balance Yes Concerns: Teeth/Dentures No Concerns: Sexual function No Troubled by feelings Irritable; Anxious Frequency: Eating healthy diet Nearly every day ADLs requiring help None of the above Safety precautions in home/vehicle Yes Smoke, vape, chews tobacco Yes, but I'm not ready to quit Difficulty hearing No Difficulty seeing No Current Providers Specialists: I have reviewed specialist-related care of the patient in the medical record. Medical/Family history review Reviewed and updated problem list, medical/surgical/family/social history, medications, and allergies. Opioid use review Prescribed: No opioid use on file in the last 90 days Patient-reported: No opioid use on file in the last 90 days Depression screening PHQ-2 Score: 0 (01/08/2025 3:06 PM) PHQ-9 Score: 2 (05/11/2024 1:14 PM) Based on score and interview, patient is not at risk for depression. Recommendation: no further intervention at this time Anxiety screening ANNE-2 Total Score: 2 (05/11/2024 1:21 PM) ANNE-7 Total Score: 3 (05/11/2024 1:21 PM) Cognitive screening Mini Cog Score: 3 Cognitive screening reviewed and No further action needed (score 3-5). Functional Observation Was the patient's Timed Up AND Go test unsteady or >= 12 seconds? No Advance Directives Patient did not wish or was not able to name a surrogate decision maker or provide an advance care plan Measurements BP 134/80 (BP Site: Right Arm, BP Position: Sitting, BP Cuff Size: Large Adult) Pulse 76 Ht 164 cm (5' 4.57) Wt 93 kg (205 lb) BMI 34.57 kg/m? Vision Screening: Follows with optometry/ophthalmology Hearing/vision screening results: Vision Screening Right eye - Without correction: With correction: 20/100 Left eye - Without correction: With correction: 20/70 Both eyes - Without correction: With correction: 20/70 Assessment/Plan Medicare annual wellness visit, subsequent (Z00.00) - Counseled on healthy diet and regular exercise - Fall avoidance information provided - Personalized prevention plan provided Reason for Visit HPI The Jarod is a 54-year-old female with a history of RA, MS, and DM, presenting for a Medicare Annual Wellness Visit. The Jarod reports significant chronic pain secondary to RA, affecting her hands, back, ankles, feet, shoulders, and neck. She describes her hands as constantly swollen and experiences difficulty bending her fingers due to joint swelling. She also reports a burning sensation in her hands, which her primary grade teacher has advised is not neuropathy. She denies similar symptoms in her feet. She experiences morning stiffness, taking approximately 2.5 hours to become mobile. She also reports foggy brain symptoms, which she attributes to her RA and chronic pain. She has been on multiple medications for RA, including methotrexate, which was discontinued due to decreased efficacy. She is currently on leflunomide and Orencia, which she started in March after experiencing AFib with Enbrel. She also takes Celebrex and uses topical treatments for hand pain. She reports that gabapentin is ineffective for her pain and is in the process of tapering off this medication. She is also on pramipexole for restless leg syndrome, which she takes in varying doses throughout the day and night. The Jarod reports difficulty with sleep due to pain, often waking at [id number]. She takes 3 arthritic Tylenol to aid sleep but is concerned about the potential impact on her liver. She describes her sleep as hard once she falls asleep but is frequently interrupted by pain. She is on venlafaxine for stress related to caring for her mother, with a higher dose started in March. She also takes fenofibrate, Pepcid, and omeprazole. She is no longer on metformin or Toujeo for DM, as she is now using an insulin pump managed by Lorenzo Avalos. She recently experienced blood glucose levels over 400 mg/dL, which she attributes to pain and a possible kink in the insulin pump pod. She denies current use of naproxen, Relafen, or Plaquenil. The Jarod reports being very active, engaging in activities such as loading and unloading wood, fishing, and walking. She estimates she is active for about 2 hours a day but does not have dedicated exercise time due to pain. She denies alcohol use and is not ready to quit smoking. She reports occasional balance issues and feelings of irritability and anxiety, which she attributes to her chronic pain. She follows up with (more content not included)... [facility] 12-26-2024 History of Present illness Narrative CHIEF COMPLAINT: joint pain HPI: Ongoing seronegative rheumatoid arthritis and osteoarthritis. She has had worsening stiffness and swelling in her fingers and toes. Her morning stiffness is longer than an hour. She feels previous Orencia and methotrexate are effective at her last visit, but she has had worsening stiffness and swelling since. No recent infections. Has not had any new rashes. He tried Enbrel the past which was associated with atrial fibrillation and she does not want to take any further similar medications to this. She has not had any recent palpitations or feelings of A-fib. ROS: General: no weight loss, fevers or night sweats HEENT: no dry eyes or mouth, oral ulcers, no visual changes or red eyes, no changes in hearing CV: no chest pain or palpitations Pulm: no worsening shortness of breath, no pleurisy GI: no nausea, GERD : no dysuria, incontinence or changes in kidney function Neuro: no new headaches, weakness or seizures Skin: no new rashes or skin lesions Allergies[1] Current Medications[2] OBJECTIVE: Visit Vitals BP (!) 144/82 (BP Location: Left arm, Patient Position: Sitting, BP Cuff Size: Large adult) Pulse 82 HEENT: no red or dry eyes, oral mucosa moist and without lesions, no alopecia or scalp rashes, no lymphadenopathy CV: S1S2 no mrg Pulm: CTA bilat without wheezes, crackles Abd: soft, nontender MSK: + tenderness in MCPs, PIPs, MTPs with swelling noted Neuro: CN 2-12 grossly intact, strength 5/5, no sensory loss in UE, LE, DTRs 1+ Skin: no rashes, no purpura, no bruising A/P: 1) seronegative rheumatoid arthritis-with worsening symptoms despite current medications. After discussed with the patient, we will try changing methotrexate to leflunomide once a day. She will hold folic acid and methotrexate when she starts leflunomide. She will continue Orencia and hydroxychloroquine at current doses with yearly eye exams for Plaquenil toxicity screens. Consider changing Orencia to Actemra or Kevzara if this is not helpful in the next 1 to 2 months. Continue clinical monitoring every 4 to 6 months. She will hold biologic and leflunomide if she has any signs of fever chills cough or other signs of infection. Orders Placed This Encounter Procedures CBC Standing Status: Future Number of Occurrences: 1 Expected Date: 01/26/2025 Expiration Date: 12/26/2025 Comprehensive metabolic panel Standing Status: Future Number of Occurrences: 1 Expected Date: 01/26/2025 Expiration Date: 12/26/2025 C-reactive protein Standing Status: Future Number of Occurrences: 1 Expected Date: 01/26/2025 Expiration Date: 12/26/2025 Quantiferon TB Gold Standing Status: Future Number of Occurrences: 1 Expected Date: 01/26/2025 Expiration Date: 12/26/2025 Hepatitis B surface antigen Standing Status: Future Number of Occurrences: 1 Expected Date: 01/26/2025 Expiration Date: 12/26/2025 Hepatitis B Core Antibody, Total Standing Status: Future Number of Occurrences: 1 Expected Date: 01/26/2025 Expiration Date: 12/26/2025 Hepatitis B surface antibody Standing Status: Future Number of Occurrences: 1 Expected Date: 01/26/2025 Expiration Date: 12/26/2025 [1] Allergies Allergen Reactions Penicillins Anaphylaxis Bupropion Other Seizure and hives Empagliflozin Hives Ropinirole Seizure [2] Current Outpatient Medications Medication Sig Dispense Refill Abatacept (Orencia ClickJect) 125 MG/ML solution auto-injector Inject 125 mg under the skin every 7 days. 4 mL 5 amLODIPine (Norvasc) 5 MG tablet Take 5 mg by mouth in the morning. aspirin 81 MG EC tablet Take 81 mg by mouth in the morning. atenolol (Tenormin) 50 MG tablet Take 50 mg by mouth in the morning. atorvastatin (Lipitor) 20 MG tablet Take 20 mg by mouth in the morning. BD Pen Needle Teet[place] 2nd Gen 32G X 4 MM misc USE TO INJECT INSULIN SUBCUTANEOUSLY TWICE A DAY DIRECTED Continuous Blood Gluc Sensor (Dexcom G6 Sensor) [facility] [place] Use a new sensor every 10 days. Diclofenac Sodium (Voltaren) 1 % gel Apply 2 g to affected hand bid prn 200 g 3 fenofibrate (Tricor) 145 MG tablet Take 145 mg by mouth in the morning. gabapentin (Neurontin) 100 MG capsule Take 100 mg by mouth 2 times daily. gabapentin (Neurontin) 300 MG capsule Take 300 mg by mouth Nightly. glucagon (Gvoke HypoPen) 1 MG/0.2ML injection Inject 1 mg under the skin Once as needed for low blood sugar. Prn for emergency hydroxychloroquine (Plaquenil) 200 MG tablet Take 2 tablets (400 mg) by mouth daily. 180 tablet 0 Insulin Lispro (Humalog) 100 UNIT/ML solution injection Inject 5 Units under the skin. Sliding scale losartan (Cozaar) 100 MG tablet Take 0.5 tablets by mouth in the morning. montelukast (Singulair) 10 MG tablet Take 1 tablet by mouth Nightly. omeprazole (PriLOSEC) [address] capsule Take 1 capsule by mouth every morning (before breakfast). pramipexole (Mirapex) 0.5 MG tablet Take 0.5 mg by mouth in the morning. semaglutide (Ozempic, 1 MG/DOSE,) 4 MG/3ML solution pen-injector Inject 1 mg under the skin once a week. triamcinolone (Nasacort) 55 MCG/ACT nasal inhaler Administer 2 sprays into affected nostril(s) in the morning. Unifine Pentips 31G X 5 MM misc venlafaxine (Effexor) 75 MG tablet Take 75 mg by mouth daily. venlafaxine XR (Effexor XR) 150 MG 24 hr capsule Take 150 mg by mouth in the morning. insulin glargine (Lantus) 100 UNIT/ML pen Inject 67 Units under the skin in the morning and 67 Units in the evening. (Patient not taking: Reported on 12/26/2024) leflunomide (Arava) 20 MG tablet Take 1 tablet (20 mg) by mouth daily. 90 tablet 1 No current facility-administered medications for this visit. documented in this encounter [facility] 12-07-2024 Telephone encounter Note Medication: methotrexate 2.5mg 7 tab qwk Refills: 06/13/24 84 + 1 lucita Medication: folic acid 1mg 3 tab qd Refills: 10/12/24 84 + 1 lucita LARA: 06/13/24 lucita/ improved symptoms on current Orencia Plaquenil methotrexate. She will continue current medications at the same doses, continue yearly eye exams for Plaquenil toxicity screens. Continue clinical lab ongoing 4 to 6 months NOV: 12/26/24 Labs: 12/05/24 under media Refilled 90 days + 1 refill folic acid Pended 90 days + 0 refills of methotrexate [facility] 12-07-2024 Miscellaneous Notes Medication: methotrexate 2.5mg 7 tab qwk Refills: 06/13/24 84 + 1 lucita Medication: folic acid 1mg 3 tab qd Refills: 10/12/24 84 + 1 lucita LARA: 06/13/24 lucita/ improved symptoms on current Orencia Plaquenil methotrexate. She will continue current medications at the same doses, continue yearly eye exams for Plaquenil toxicity screens. Continue clinical lab ongoing 4 to 6 months NOV: 12/26/24 Labs: 12/05/24 under media Refilled 90 days + 1 refill folic acid Pended 90 days + 0 refills of methotrexate documented in this encounter [facility] 12-07-2024 Note Addended by: Anabel CARABALLO on: 12/07/2024 04:40 PM Modules accepted: Orders [facility] 12-07-2024 Miscellaneous Notes Addended by: LAILA CARABALLO on: 12/07/2024 04:40 PM Modules accepted: Orders Medication: orencia 125mg/ml qwk Refills: 06/13/24 4ml + 5 lucita LARA: 06/13/24 lucita/ improved symptoms on current Orencia Plaquenil methotrexate. She will continue current medications at the same doses, continue yearly eye exams for Plaquenil toxicity screens. Continue clinical lab ongoing 4 to 6 months NOV: 12/26/24 Labs: 05/11/24 Pt's 10/26/24 medication monitoring labs over due. [employer] message sent to pt. Refused/ awaiting lab results Lab: 12/05/24 under media Pended 30 days + 0 refills to next appt documented in this encounter [facility] 11-29-2024 Telephone encounter Note Medication: orencia 125mg/ml qwk Refills: 06/13/24 4ml + 5 lucita LARA: 06/13/24 lucita/ improved symptoms on current Orencia Plaquenil methotrexate. She will continue current medications at the same doses, continue yearly eye exams for Plaquenil toxicity screens. Continue clinical lab ongoing 4 to 6 months NOV: 12/26/24 Labs: 05/11/24 Pt's 10/26/24 medication monitoring labs over due. [employer] message sent to pt. Refused/ awaiting lab results Lab: 12/05/24 under media Pended 30 days + 0 refills to next appt [facility] 11-29-2024 Miscellaneous Notes Medication: orencia 125mg/ml qwk Refills: 06/13/24 4ml + 5 lucita LARA: 06/13/24 lucita/ improved symptoms on current Orencia Plaquenil methotrexate. She will continue current medications at the same doses, continue yearly eye exams for Plaquenil toxicity screens. Continue clinical lab ongoing 4 to 6 months NOV: 12/26/24 Labs: 05/11/24 Pt's 10/26/24 medication monitoring labs over due. [employer] message sent to pt. Refused/ awaiting lab results 12/06 documented in this encounter [facility] 10-10-2024 Instructions Gela Medina APRN.HAYLEE - 10/10/2024 1:01 PM EDT - You have been updated to type 1 diabetes and metformin has been stopped per your primary grade teacher s recommendation. - Your insulin pump has been approved; schedule and complete the required pump training sessions before you begin pump therapy. - Until your pump is in use, continue your current insulin injections as prescribed and do not skip doses. - Check your blood sugar regularly; call the office if your readings stay high (for example, consistently over 300 mg/dL) or if you have any concerns with your insulin dosing. - If you need to change pharmacies, let us know right away so we can send your insulin prescription to the new location. - Report any future medication errors or prescription issues to our office immediately. documented in this encounter [facility] 10-10-2024 Note HNO ID: [id number] Author: GELA MEDINA APRN.AERIAL PHOTOGRAMMETRIST Service: ? Author Type: Nurse Practitioner Type: Progress Notes Filed: 10/10/2024 14:51 Note Text: CC: Patient presents with: Recheck: 6 week follow up HPI Jarod Rodarte is a 53 year old female who presents today for follow up on increased fatigue. Blood work unremarkable. Recording using ambient [employer] software for draft documentation of the visit was discussed with the patient/authorized associate financial representative; all questions welcomed and answered. Patient/authorized associate financial representative agreed to proceed Fatigue: - Jarod reports back to her baseline of chronic tiredness. Found an error attributed to a her pharmacy. - Pharmacy reportedly switched the timing of her medications, leading to increased daytime somnolence and poor nocturnal sleep. Once she realized this and medications were switched to appropriate times this has began to improve. 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 Avalos. - Approved for insulin pump therapy; awaiting training. - Discontinued Metformin as per primary grade teacher's recommendation. - Jarod reports an episode of hyperglycemia (blood glucose >300 mg/dL) last night due to missed insulin dose. 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 - Current smoker; primary grade teacher mentioned this could affect A1c readings. REVIEW OF SYSTEMS General: no fevers, no chills, no recurrent infections, and no change in appetite Respiratory: no cough, no wheezing, no shortness of breath, no hemoptysis Cardiovascular: no chest pain, no chest pressure, no palpitations, and no swelling PAST MEDICAL HISTORY Diagnosis Date De Quervain's tenosynovitis, bilateral Depression with anxiety Diabetes (HCC) Fibromyalgia Hypercholesterolemia Hypertension IBS (irritable bowel syndrome) Raynaud's disease Restless legs syndrome (RLS) PAST SURGICAL HISTORY Procedure Laterality Date CONE OF CERVIX LOOPELEC EXCIS EXTRACTION, ERUPTED TOOTH OR EXPOSED ROOT (ELEVATION AND/OR FORCEPS REMOVAL) [place] teeth x 4 HYSTERECTOMY HX precervical cancer, removed cervix KNEE SURGERY HX 4x right and left x4 ALLERGIES Penicillin G, Requip [Ropinirole], Enbrel [Etanercept], Jardiance [Empagliflozin], and Wellbutrin [Bupropion Hcl] MEDICATIONS venlafaxine ER (EFFEXOR XR) 150 mg 24 hr capsule Take 1 capsule by mouth once daily. pramipexole (MIRAPEX) 0.125 mg tablet take 1 tablet by mouth every afternoon if needed for RESTELESS LEGS pramipexole (MIRAPEX) 0.5 mg tablet Take 1 tablet by mouth daily at bedtime. Blood-Glucose Transmitter (DEXCOM G6 TRANSMITTER) catracho Change transmitter every 3 months - continuous glucose monitor, multiple insulin injections E-11.9 omeprazole (PRILOSEC) 40 mg capsule Take 1 capsule by mouth once daily. gabapentin (NEURONTIN) 300 mg capsule Take 1 capsule by mouth daily at bedtime for 180 days. gabapentin (NEURONTIN) 100 mg capsule Take 1 capsule by mouth two times a day for 180 days. Take one in AM and one in afternoon. Take the 300mg before bed. insulin glargine U-300 conc (TOUJEO MAX U-300 SOLOSTAR) 300 unit/mL (3 mL) inpn Inject subcutaneously 130 units daily insulin lispro (HUMALOG KWIKPEN INSULIN) 100 unit/mL Inject 25 Units subcutaneously three times a day before meals. Inject 25 units with meals plus SS#2 (2 units for every 50 over 150) (1 units for every 10 grams of carbs). Limit of 100 units daily venlafaxine ER (EFFEXOR XR) 75 mg 24 hr capsule Take 1 capsule by mouth once daily. ferrous sulfate 325 mg (65 mg iron) tablet Take 1 tablet by mouth every other day. atorvastatin (LIPITOR) 40 mg tablet Take 1 tablet by mouth once daily. amLODIPine (NORVASC) 5 mg tablet Take 1 tablet by mouth once daily. atenolol (TENORMIN) 50 mg tablet Take 1 tablet by mouth once daily. fenofibrate nanocrystallized (TRICOR) 145 mg tablet Take 1 tablet by mouth once daily. montelukast (SINGULAIR) 10 mg tablet Take 1 tablet by mouth daily at bedtime. Blood-Glucose Transmitter (DEXCOM G6 TRANSMITTER) catracho 1 Each continuous. folic acid 1 mg tablet Take 3 mg by mouth once daily. hydrOXYchloroQUINE (PLAQUENIL) 200 mg tablet Take 2 tablets by mouth once daily. methotrexate 2.5 mg tablet Take 17.5 mg by mouth every Tuesday. nabumetone (RELAFEN) 750 mg tablet Take 750 mg by mouth two times a day. ORENCIA CLICKJECT 125 mg/mL auto-injector Inject 1 mL subcutaneously one time a week. (Patient not taking: Reported on 02/17/2024) Insulin Bradford, Disposable, (BD ULTRAFINE III MINI PEN) 31 gauge x 06/10 Use with insulin injection 2 times daily Blood-Glucose Sensor (DEXCOM G6 SENSOR) catracho Change sensor every 10 days. USE FOR CONTINUOUS GLUCOSE MONITORING. MULTIPLE INSULIN INJECTIONS. E11.9 metFORMIN (GLUCOPHAGE) 1,000 mg tablet Take 1 tablet by mouth two times a day with meals. losartan (COZAAR) 100 mg tablet TAKE ONE-HALF TABLET (more content not included)... [facility] 10-10-2024 History of Present illness Narrative CC: Patient presents with: Recheck: 6 week follow up HPI Jarod Rodarte is a 53 year old female who presents today for follow up on increased fatigue. Blood work unremarkable. Recording using [employer] software for draft documentation of the visit was discussed with the patient/authorized associate financial representative; all questions welcomed and answered. Patient/authorized associate financial representative agreed to proceed Fatigue: - Jarod reports back to her baseline of chronic tiredness. Found an error attributed to a her pharmacy. - Pharmacy reportedly switched the timing of her medications, leading to increased daytime somnolence and poor nocturnal sleep. Once she realized this and medications were switched to appropriate times this has began to improve. 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 Avaols. - Approved for insulin pump therapy; awaiting training. - Discontinued Metformin as per primary grade teacher's recommendation. - Jarod reports an episode of hyperglycemia (blood glucose >300 mg/dL) last night due to missed insulin dose. 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 - Current smoker; primary grade teacher mentioned this could affect A1c readings. REVIEW OF SYSTEMS General: no fevers, no chills, no recurrent infections, and no change in appetite Respiratory: no cough, no wheezing, no shortness of breath, no hemoptysis Cardiovascular: no chest pain, no chest pressure, no palpitations, and no swelling PAST MEDICAL HISTORY Diagnosis Date De Quervain's tenosynovitis, bilateral Depression with anxiety Diabetes (HCC) Fibromyalgia Hypercholesterolemia Hypertension IBS (irritable bowel syndrome) Raynaud's disease Restless legs syndrome (RLS) PAST SURGICAL HISTORY Procedure Laterality Date CONE OF CERVIX LOOPELEC EXCIS EXTRACTION, ERUPTED TOOTH OR EXPOSED ROOT (ELEVATION AND/OR FORCEPS REMOVAL) [place] teeth x 4 HYSTERECTOMY HX precervical cancer, removed cervix KNEE SURGERY HX 4x right and left x4 ALLERGIES Penicillin G, Requip [Ropinirole], Enbrel [Etanercept], Jardiance [Empagliflozin], and Wellbutrin [Bupropion Hcl] MEDICATIONS venlafaxine ER (EFFEXOR XR) 150 mg 24 hr capsule Take 1 capsule by mouth once daily. pramipexole (MIRAPEX) 0.125 mg tablet take 1 tablet by mouth every afternoon if needed for RESTELESS LEGS pramipexole (MIRAPEX) 0.5 mg tablet Take 1 tablet by mouth daily at bedtime. Blood-Glucose Transmitter (DEXCOM G6 TRANSMITTER) catracho Change transmitter every 3 months - continuous glucose monitor, multiple insulin injections E-11.9 omeprazole (PRILOSEC) 40 mg capsule Take 1 capsule by mouth once daily. gabapentin (NEURONTIN) 300 mg capsule Take 1 capsule by mouth daily at bedtime for 180 days. gabapentin (NEURONTIN) 100 mg capsule Take 1 capsule by mouth two times a day for 180 days. Take one in AM and one in afternoon. Take the 300mg before bed. insulin glargine U-300 conc (TOUJEO MAX U-300 SOLOSTAR) 300 unit/mL (3 mL) inpn Inject subcutaneously 130 units daily insulin lispro (HUMALOG KWIKPEN INSULIN) 100 unit/mL Inject 25 Units subcutaneously three times a day before meals. Inject 25 units with meals plus SS#2 (2 units for every 50 over 150) (1 units for every 10 grams of carbs). Limit of 100 units daily venlafaxine ER (EFFEXOR XR) 75 mg 24 hr capsule Take 1 capsule by mouth once daily. ferrous sulfate 325 mg (65 mg iron) tablet Take 1 tablet by mouth every other day. atorvastatin (LIPITOR) 40 mg tablet Take 1 tablet by mouth once daily. amLODIPine (NORVASC) 5 mg tablet Take 1 tablet by mouth once daily. atenolol (TENORMIN) 50 mg tablet Take 1 tablet by mouth once daily. fenofibrate nanocrystallized (TRICOR) 145 mg tablet Take 1 tablet by mouth once daily. montelukast (SINGULAIR) 10 mg tablet Take 1 tablet by mouth daily at bedtime. Blood-Glucose Transmitter (DEXCOM G6 TRANSMITTER) catracho 1 Each continuous. folic acid 1 mg tablet Take 3 mg by mouth once daily. hydrOXYchloroQUINE (PLAQUENIL) 200 mg tablet Take 2 tablets by mouth once daily. methotrexate 2.5 mg tablet Take 17.5 mg by mouth every Tuesday. nabumetone (RELAFEN) 750 mg tablet Take 750 mg by mouth two times a day. ORENCIA CLICKJECT 125 mg/mL auto-injector Inject 1 mL subcutaneously one time a week. (Patient not taking: Reported on 02/17/2024) Insulin Bradford, Disposable, (BD ULTRAFINE III MINI PEN) 31 gauge x 3/16 Use with insulin injection 2 times daily Blood-Glucose Sensor (DEXCOM G6 SENSOR) catracho Change sensor every 10 days. USE FOR CONTINUOUS GLUCOSE MONITORING. MULTIPLE INSULIN INJECTIONS. E11.9 metFORMIN (GLUCOPHAGE) 1,000 mg tablet Take 1 tablet by mouth two times a day with meals. losartan (COZAAR) 100 mg tablet TAKE ONE-HALF TABLET BY MOUTH ONCE DAILY (Patient taking differently: Take 50 mg by mouth once daily.) naproxen (NAPROSYN) 500 mg tablet Take 1 tablet by mouth two times a day as needed. hydrOXYzine HCl (ATARAX) 25 mg tablet Take 1 tablet by mouth three times a day as needed for anxiety. blood sugar diagnostic (ONETOUCH ULTRA TEST) test strip Test blood sugar(s) 4 times daily. Dx: Type 2 DM - Controlled E11.9 , Insulin: Yes Lancets (ONETOUCH ULTRASOFT LANCETS) lancets Test blood sugar(s) 4 times daily. Dx: Type 2 DM - Controlled E11.9 , Insulin: Yes famotidine (PEPCID) 20 mg tablet Take 1 tablet by mouth at bedtime as needed. glucagon (GLUCAGON EMERGENCY KIT, HUMAN,) 1 mg injection Inject (1)one mg for insulin shock. Blood-Glucose Meter,Continuous (DEXCOM G6 [employer]) misc 1 Each continuous. (Patient not taking: Reported on 02/17/2024) ondansetron orally disintegrating (ZOFRAN ODT) 4 mg disintegrating tablet Take 1 tablet by mouth every 6 hours as needed for nausea/vomiting. celecoxib (CELEBREX) 200 mg capsule Take 200 mg by mouth every morning. diclofenac (VOLTAREN) 1 % topical gel Apply 2 g to affected area four times daily. (Patient taking differently: Apply 2 g to affected area four times daily. As needed) triamcinolone acetonide (NASACORT AQ) 55 mcg nasal inhaler Use 2 Sprays in the nose once daily. FAMILY HISTORY Problem Relation Age of Onset Hypertension Mother Breast Cancer Mother other (raynaud) Mother Parkinson s Disease Father Hyperlipidemia Father Arthritis Father Breast Cancer Maternal Grandmother other (Thrombosis) Maternal Grandfather COPD Paternal Grandmother Coronary Artery Disease Paternal Grandmother Coronary Artery Disease Paternal Grandfather other (Brock Disease) Maternal Aunt Cervical Cancer Paternal Aunt Heart Paternal Aunt Factor 5 Leiden Paternal cousin Social History Tobacco Use Smoking status: Every Day Current packs/day: 0.50 Average packs/day: 0.5 packs/day for 31.0 years (15.5 ttl pk-yrs) Types: Cigarettes Smokeless tobacco: Never Vaping Use Vaping status: Never Used Substance Use Topics Alcohol use: No Drug use: No PHYSICAL EXAM BP 132/80 Pulse 76 Resp 16 Wt 89.8 kg (198 lb) SpO2 96% BMI 32.95 kg/m General Appearance: well appearing, in no acute distress, alert Lungs: Lungs clear to auscultation. No wheezing, rhonchi, rales. Heart: RRR without murmur, gallop, or rubs. No ectopy Health maintenance reviewed with patient: Hepatitis B Vaccine(1 of 3 - 19+ 3-dose series) Never done Shingrix Vaccine(1 of 2) Never done Cervical Cancer Screening due on 11/30/2014 DTaP,Tdap,Td Vaccine(2 - Td or Tdap) due on 03/28/2024 Medicare Advantage Annual Wellness Visit Never done Mammogram Screening due on 05/03/2024 Dilated Retinal Exam due on 05/31/2024 HbA1C due on 08/18/2024 Covid-19 Vaccine(4 - season) due on 12/18/2024 Influenza Vaccine(1) due on 11/26/2024 Pneumococcal Vaccine: 50+(4 of 4 - PCV20 or PCV21) due on 01/09/2025 Diabetic Foot Exam due on 02/14/2025 LDL Cholesterol due on 03/14/2025 Urine Albumin:Creatinine Ratio due on 05/01/2025 Colorectal Cancer Screening due on 09/07/2025 Annual PCP Team Chronic Disease Visit due on 10/10/2025 Hepatitis C Screening Completed HIV Screening Completed DATA REVIEWED: Most recent labs Assessment/Plan 1. Other fatigue (R53.83) 2. Restless legs (G25.81) - Fatigue improved after correcting medication administration error; pharmacy had reversed timing of medications, leading to increased fatigue. - Discussed potential dangers of medication errors, including decreased reaction time. - Advised patient to consider changing pharmacy if errors persist. - RLS controlled well and tolerated with current treatment if given correctly. 3. Type 1 diabetes mellitus with hyperglycemia (HCC) (E10.65) - Recently reclassified as Type 1 diabetes; metformin discontinued. - Approved for insulin pump; training scheduled in a few weeks. - Recent A1c may be falsely elevated due to smoking. - Patient experienced hyperglycemia (blood sugar >300 mg/dL) due to missed insulin dose. - Emphasized importance of consistent insulin administration. - continue with recommendations by endocrinology. Prescription instructions reviewed with patient as applicable. Potential red flag symptoms discussed with the patient. Reviewed appropriate action plan to take if red flag symptoms occur. Patient agreeable to treatment plan. Gela Medina APRN.CNP documented in this encounter [facility] 09-24-2024 Evaluation note Diagnosis Onset Date Resolution Essential (primary) hypertension chronic September 24, 2024 11:08am Hyperlipidemia chronic September 24, 2024 11:08am Lipohypertrophy due to insulin injection chronic September 24 11:08am Microalbuminuria due to type 1 diabetes mellitus chronic September 242024 11:08am Obesity chronic September 24 11:08am Type 1 diabetes mellitus with hyperglycemia chronic September 24 11:08am [facility] Work Phone: [phone] 135-828206-19-2025 Telephone encounter Note* Telephone Encounter - Tayler Renee RN - 09/13/2024 11:40 AM EDT The patient has been identified by name and date of : Yes Caregiver verified no other encounters exist for this prescription request: Yes Caregiver confirmed with patient/requestor that no other refills are due, in the near future, with this provider at this time: Yes The last office visit in the department: 08/09/2024 Does the patient have a future office visit with this provider/department: Yes 09/20/2024 Requested Prescriptions Pending Prescriptions Disp Refills venlafaxine ER (EFFEXOR XR) 150 mg 24 hr capsule 30 capsule 11 Sig: Take 1 capsule by mouth once daily. Tayler Renee RN September 13, 2024 11:41 AM [facility]06-19-2025 Miscellaneous Notes* Telephone Encounter - Tayler Renee RN - 09/13/2024 11:40 AM EDT The patient has been identified by name and date of : Yes Caregiver verified no other encounters exist for this prescription request: Yes Caregiver confirmed with patient/requestor that no other refills are due, in the near future, with this provider at this time: Yes The last office visit in the department: 08/09/2024 Does the patient have a future office visit with this provider/department: Yes 09/20/2024 Requested Prescriptions Pending Prescriptions Disp Refills venlafaxine ER (EFFEXOR XR) 150 mg 24 hr capsule 30 capsule 11 Sig: Take 1 capsule by mouth once daily. Tayler Renee RN September 13, 2024 11:41 AM [facility] Telephone encounter Note * Telephone Encounter - Anjelica Morales RN - 08/30/2024 12:03 PM EDT Patient calls and states that she is drowsy in the morning because she has been taking the higher dose on Mirapex in the morning. Patient gets medications from [facility] which does pill packs for her. Patient asking if provider can send in a new script for patient to take the 0.5 mg at bedtime and the 0.125 mg in the afternoon? The patient has been identified by name and date of : Yes Caregiver verified no other encounters exist for this prescription request: Yes Caregiver confirmed with patient/requestor that no other refills are due, in the near future, with this provider at this time: Yes The last office visit in the department: 08/09/2024 Does the patient have a future office visit with this provider/department: Yes 09/20/2024 Requested Prescriptions Pending Prescriptions Disp Refills pramipexole (MIRAPEX) 0.125 mg tablet Sig: take 1 tablet by mouth every afternoon if needed for RESTELESS LEGS pramipexole (MIRAPEX) 0.5 mg tablet 0 Sig: Take 1 tablet by mouth daily at bedtime. Anjelica Morales RN August 30, 2024 12:07 PM [facility]06-05-2025 Miscellaneous Notes* Telephone Encounter - Anjelica Morales RN - 08/30/2024 12:03 PM EDT Patient calls and states that she is drowsy in the morning because she has been taking the higher dose on Mirapex in the morning. Patient gets medications from [facility] which does pill packs for her. Patient asking if provider can send in a new script for patient to take the 0.5 mg at bedtime and the 0.125 mg in the afternoon? The patient has been identified by name and date of : Yes Caregiver verified no other encounters exist for this prescription request: Yes Caregiver confirmed with patient/requestor that no other refills are due, in the near future, with this provider at this time: Yes The last office visit in the department: 08/09/2024 Does the patient have a future office visit with this provider/department: Yes 09/20/2024 Requested Prescriptions Pending Prescriptions Disp Refills pramipexole (MIRAPEX) 0.125 mg tablet Sig: take 1 tablet by mouth every afternoon if needed for RESTELESS LEGS pramipexole (MIRAPEX) 0.5 mg tablet 0 Sig: Take 1 tablet by mouth daily at bedtime. Anjelica Morales RN August 30, 2024 12:07 PM documented in this encounterProm[facility] NoteHNO ID: [id number] Author: SUMAN CABRERA RPh Service: ? Author Type: Pharmacist Type: Progress Notes Filed: 08/15/2024 14:53 Note Text: Primary Care Pharmacy Panel Management This patient has been identified through Specialty Integration/Value-Based Operations Diabetes Registry Review by the primary care pharmacy team. After review, determined that the patient is not a candidate for pharmacy referral at this time due to follows closely with Endo. [facility] NotePatient Outreach (PHMEWO) JAROD RODARTE ([id number]) 1970 F Date Time Provider Department 08/15/24 SUMAN CABRERA During your visit today, we recorded the following information about you: Suman Cabrera RPh 08/15/2024 2:53 PM Signed Primary Care Pharmacy Panel Management This patient has been identified through Specialty Integration/Value-Based Operations Diabetes Registry Review by the primary care pharmacy team. After review, determined that the patient is not a candidate for pharmacy referral at this time due to follows closely with Endo. Suman Cabrera RPh Allergies As of Date: 08/15/2024 Noted Allergy Reaction PENICILLIN G 04/18/2013 7 - Swelling REQUIP (ROPINIROLE) 04/18/2013 14 - Other: See Comments Comments: seizures ENBREL (ETANERCEPT) 12/19/2023 14 - Other: See Comments Comments: Palpitations JARDIANCE (EMPAGLIFLOZIN) 01/02/2020 14 - Other: See Comments Comments: Yeast infections WELLBUTRIN (BUPROPION HCL) 08/08/2019 2 - Rash Date Reviewed: 08/09/2024 Reviewed by: Destiney Briceno MA - Fully Assessed Prescriptions as of 08/15/2024 - gabapentin (NEURONTIN) 300 mg capsule Take 1 capsule by mouth daily at bedtime for 180 days. - gabapentin (NEURONTIN) 100 mg capsule Take 1 capsule by mouth two times a day for 180 days. Take one in AM and one in afternoon. Take the 300mg before bed. - insulin glargine U-300 conc (TOUJEO MAX U-300 SOLOSTAR) 300 unit/mL (3 mL) inpn Inject subcutaneously 130 units daily - insulin lispro (HUMALOG KWIKPEN INSULIN) 100 unit/mL Inject 25 Units subcutaneously three times a day before meals. Inject 25 units with meals plus SS#2 (2 units for every 50 over 150) (1 units for every 10 grams of carbs). Limit of 100 units daily - venlafaxine ER (EFFEXOR XR) 75 mg 24 hr capsule Take 1 capsule by mouth once daily. - ferrous sulfate 325 mg (65 mg iron) tablet Take 1 tablet by mouth every other day. - pramipexole (MIRAPEX) 0.125 mg tablet take 1 tablet by mouth every evening if needed for RESTELESS LEGS - pramipexole (MIRAPEX) 0.5 mg tablet Take 1 tablet by mouth once daily. - atorvastatin (LIPITOR) 40 mg tablet Take 1 tablet by mouth once daily. - amLODIPine (NORVASC) 5 mg tablet Take 1 tablet by mouth once daily. - atenolol (TENORMIN) 50 mg tablet Take 1 tablet by mouth once daily. - fenofibrate nanocrystallized (TRICOR) 145 mg tablet Take 1 tablet by mouth once daily. - montelukast (SINGULAIR) 10 mg tablet Take 1 tablet by mouth daily at bedtime. - omeprazole (PRILOSEC) 40 mg capsule Take 1 capsule by mouth once daily. - Blood-Glucose Transmitter (DEXCOM G6 TRANSMITTER) catracho 1 Each continuous. - folic acid 1 mg tablet Take 3 mg by mouth once daily. - hydrOXYchloroQUINE (PLAQUENIL) 200 mg tablet Take 2 tablets by mouth once daily. - methotrexate 2.5 mg tablet Take 17.5 mg by mouth every Tuesday. - nabumetone (RELAFEN) 750 mg tablet Take 750 mg by mouth two times a day. - ORENCIA CLICKJECT 125 mg/mL auto-injector Inject 1 mL subcutaneously one time a week. - Insulin Bradford, Disposable, (BD ULTRAFINE III MINI PEN) 31 gauge x 3/16 Use with insulin injection 2 times daily - Blood-Glucose Sensor (DEXCOM G6 SENSOR) catracho Change sensor every 10 days. USE FOR CONTINUOUS GLUCOSE MONITORING. MULTIPLE INSULIN INJECTIONS. E11.9 - metFORMIN (GLUCOPHAGE) 1,000 mg tablet Take 1 tablet by mouth two times a day with meals. - losartan (COZAAR) 100 mg tablet TAKE ONE-HALF TABLET BY MOUTH ONCE DAILY - venlafaxine ER (EFFEXOR XR) 150 mg 24 hr capsule Take 1 capsule by mouth once daily. - naproxen (NAPROSYN) 500 mg tablet Take 1 tablet by mouth two times a day as needed. - Blood-Glucose Transmitter (DEXCOM G6 TRANSMITTER) catracho Change transmitter every 3 months - continuous glucose monitor, multiple insulin injections E-11.9 - hydrOXYzine HCl (ATARAX) 25 mg tablet Take 1 tablet by mouth three times a day as needed for anxiety. - blood sugar diagnostic (ONETOUCH ULTRA TEST) test strip Test blood sugar(s) 4 times daily. Dx: Type 2 DM - Controlled E11.9 , Insulin: Yes - Lancets (ONETOUCH ULTRASOFT LANCETS) lancets Test blood sugar(s) 4 times daily. Dx: Type 2 DM - Controlled E11.9 , Insulin: Yes - famotidine (PEPCID) 20 mg tablet Take 1 tablet by mouth at bedtime as needed. - glucagon (GLUCAGON EMERGENCY KIT, HUMAN,) 1 mg injection Inject (1)one mg for insulin shock. - Blood-Glucose Meter,Continuous (DEXCOM G6 NAVAL SCIENCE TEACHER) misc 1 Each continuous. - ondansetron orally disintegrating (ZOFRAN ODT) 4 mg disintegrating tablet Take 1 tablet by mouth every 6 hours as needed for nausea/vomiting. - celecoxib (CELEBREX) 200 mg capsule Take 200 mg by mouth every morning. - diclofenac (VOLTAREN) 1 % topical gel Apply 2 g to affected area four times daily. - triamcinolone acetonide (NASACORT AQ) 55 mcg nasal inhaler Use 2 Sprays in (more content not included)...[facility] 08-09-2024 Instructions* Patient Instructions* Gela Medina APRN.AERIAL PHOTOGRAMMETRIST - 08/09/2024 11:39 AM EDT Increase your Toujeo dose from 60 units to 65 units per injection (morning and evening) for a totalof 130 units daily. Continue taking 25 units of Humalog with each meal, and discuss the possibilityof an insulin pump with your primary grade teacher when you see Dr. Avalos next month. Your gabapentin refill has been sent. Hold your baby aspirin since it may be contributing to your bruising. Complete the stool sample kit you received for colon cancer screening. You will have lab work done to check your thyroid, folate, B12, iron levels, complete blood count, and kidney function to help determine the cause of your fatigue. If you try the hemp cream (with 3,000 mg THC) on your hands or joints for arthritis pain, please inform your composition roofer. Consider trying an extended-release melatonin if you need help staying asleep. Return in 4 weeks to review your lab results and fatigue workup, then follow up in about 6 weeks after your appointment with Dr. Avalos to update your diabetes management. documented in this encounterProm[facility]25 NoteHNO ID: [id number] Author: GELA MEDINA APRN.CNP Service: ? Author Type: Nurse Practitioner Type: Progress Notes Filed: 08/09/2024 15:55 Note Text: CC: Patient presents with: Recheck: 3 month follow up HPI Jarod Rodarte is a 53 year old female who presents today for routine follow up. Recording using [employer] Online 401 software for draft documentation of the visit was discussed with the patient/authorized associate financial representative; all questions welcomed and answered. Patient/authorized associate financial representative agreed to proceed Diabetes Mellitus: - Blood glucose levels described as all over the place. - Average glucose over the last 30 days is 193 mg/dL; over the last 90 days is 189 mg/dL. - Rare episodes of hypoglycemia. - Denies polydipsia, polyphagia, polyuria, or paresthesia beyond baseline. - Taking Toujeo 120 units daily (60 units BID) and Humalog 25 units TID. - Previously on Ozempic, discontinued due to GI side effects. - Taking metformin. - Scheduled to see Dr. Avalos next month to discuss insulin pump. - Reports recurrent yeast infections when blood glucose is elevated, self-treats with Monistat. Fatigue: - Persistent fatigue x1 month. - Uncertain if fatigue is due to blood glucose levels, new bed, or low iron. - Sleep patterns disrupted, waking between 0230 and 0600. Has RLS but feels these symptoms are well controlled with current treatment. - Denies abnormal changes in hair, skin, nails, weight, or recurrent infections. Iron Deficiency: - History of iron deficiency, taking iron supplements. - Noted pica (ice chewing) over the last month. - Taking folic acid for folate deficiency. Rheumatoid Arthritis: - Managed with Orencia, Plaquenil, and methotrexate. - Occasional flares, last flare managed with Tylenol and rest. - Using a hemp cream for joint pain relief. - Reports easy bruising, possibly related to Orencia. - Inflammation markers currently within normal range. Hypertension: - Controlled with losartan 100 mg, atenolol, and amlodipine. - Denies chest pain, dyspnea, edema, or palpitations. - tries to maintain a healthy diet most of the time and walks for exercise REVIEW OF SYSTEMS See HPI PAST MEDICAL HISTORY Diagnosis Date De Quervain's tenosynovitis, bilateral Depression with anxiety Diabetes (HCC) Fibromyalgia Hypercholesterolemia Hypertension IBS (irritable bowel syndrome) Raynaud's disease Restless legs syndrome (RLS) PAST SURGICAL HISTORY Procedure Laterality Date CONE OF CERVIX LOOPELEC EXCIS EXTRACTION, ERUPTED TOOTH OR EXPOSED ROOT (ELEVATION AND/OR FORCEPS REMOVAL) [place] teeth x 4 HYSTERECTOMY HX precervical cancer, removed cervix KNEE SURGERY HX 4x right and left x4 ALLERGIES Penicillin G, Requip [Ropinirole], Enbrel [Etanercept], Jardiance [Empagliflozin], and Wellbutrin [Bupropion Hcl] MEDICATIONS gabapentin (NEURONTIN) 300 mg capsule Take 1 capsule by mouth daily at bedtime for 180 days. gabapentin (NEURONTIN) 100 mg capsule Take 1 capsule by mouth two times a day for 180 days. Take one in AM and one in afternoon. Take the 300mg before bed. insulin glargine U-300 conc (TOUJEO MAX U-300 SOLOSTAR) 300 unit/mL (3 mL) inpn Inject subcutaneously 130 units daily insulin lispro (HUMALOG KWIKPEN INSULIN) 100 unit/mL Inject 25 Units subcutaneously three times a day before meals. Inject 25 units with meals plus SS#2 (2 units for every 50 over 150) (1 units for every 10 grams of carbs). Limit of 100 units daily venlafaxine ER (EFFEXOR XR) 75 mg 24 hr capsule Take 1 capsule by mouth once daily. ferrous sulfate 325 mg (65 mg iron) tablet Take 1 tablet by mouth every other day. pramipexole (MIRAPEX) 0.125 mg tablet take 1 tablet by mouth every evening if needed for RESTELESS LEGS pramipexole (MIRAPEX) 0.5 mg tablet Take 1 tablet by mouth once daily. atorvastatin (LIPITOR) 40 mg tablet Take 1 tablet by mouth once daily. amLODIPine (NORVASC) 5 mg tablet Take 1 tablet by mouth once daily. atenolol (TENORMIN) 50 mg tablet Take 1 tablet by mouth once daily. fenofibrate nanocrystallized (TRICOR) 145 mg tablet Take 1 tablet by mouth once daily. montelukast (SINGULAIR) 10 mg tablet Take 1 tablet by mouth daily at bedtime. omeprazole (PRILOSEC) 40 mg capsule Take 1 capsule by mouth once daily. Blood-Glucose Transmitter (DEXCOM G6 TRANSMITTER) catracho 1 Each continuous. folic acid 1 mg tablet Take 3 mg by mouth once daily. hydrOXYchloroQUINE (PLAQUENIL) 200 mg tablet Take 2 tablets by mouth once daily. methotrexate 2.5 mg tablet Take 17.5 mg by mouth every Tuesday. nabumetone (RELAFEN) 750 mg tablet Take 750 mg by mouth two times a day. ORENCIA CLICKJECT 125 mg/mL auto-injector Inject 1 mL subcutaneously one time a week. (Patient not taking: Reported on 02/17/2024) Insulin Bradford, Disposable, (BD ULTRAFINE III MINI PEN) 31 gauge x 3/16 Use with insulin injection 2 times daily Blood-Glucose Sensor (DEXCOM G6 SENSOR) (more content not included)...[facility]05-15-2025 History of Present illness Narrative* Gela Medina APRN.AERIAL PHOTOGRAMMETRIST - 08/09/2024 11:08 AM EDT CC: Patient presents with: Recheck: 3 month follow up HPI Jarod Rodarte is a 53 year old female who presents today for routine follow up. Recording using The Online 401 software for draft documentation of the visit was discussed with the patient/authorized associate financial representative; all questions welcomed and answered. Patient/authorized associate financial representative agreed to proceed Diabetes Mellitus: - Blood glucose levels described as all over the place. - Average glucose over the last 30 days is 193 mg/dL; over the last 90 days is 189 mg/dL. - Rare episodes of hypoglycemia. - Denies polydipsia, polyphagia, polyuria, or paresthesia beyond baseline. - Taking Toujeo 120 units daily (60 units BID) and Humalog 25 units TID. - Previously on Ozempic, discontinued due to GI side effects. - Taking metformin. - Scheduled to see Dr. Avalos next month to discuss insulin pump. - Reports recurrent yeast infections when blood glucose is elevated, self-treats with Monistat. Fatigue: - Persistent fatigue x1 month. - Uncertain if fatigue is due to blood glucose levels, new bed, or low iron. - Sleep patterns disrupted, waking between 0230 and 0600. Has RLS but feels these symptoms are wellcontrolled with current treatment. - Denies abnormal changes in hair, skin, nails, weight, or recurrent infections. Iron Deficiency: - History of iron deficiency, taking iron supplements. - Noted pica (ice chewing) over the last month. - Taking folic acid for folate deficiency. Rheumatoid Arthritis: - Managed with Orencia, Plaquenil, and methotrexate. - Occasional flares, last flare managed with Tylenol and rest. - Using a hemp cream for joint pain relief. - Reports easy bruising, possibly related to Orencia. - Inflammation markers currently within normal range. Hypertension: - Controlled with losartan 100 mg, atenolol, and amlodipine. - Denies chest pain, dyspnea, edema, or palpitations. - tries to maintain a healthy diet most of the time and walks for exercise REVIEW OF SYSTEMS See HPI PAST MEDICAL HISTORY Diagnosis Date De Quervain's tenosynovitis, bilateral Depression with anxiety Diabetes (HCC) Fibromyalgia Hypercholesterolemia Hypertension IBS (irritable bowel syndrome) Raynaud's disease Restless legs syndrome (RLS) PAST SURGICAL HISTORY Procedure Laterality Date CONE OF CERVIX LOOPELEC EXCIS EXTRACTION, ERUPTED TOOTH OR EXPOSED ROOT (ELEVATION AND/OR FORCEPS REMOVAL) [place] teeth x 4 HYSTERECTOMY HX precervical cancer, removed cervix KNEE SURGERY HX 4x right and left x4 ALLERGIES Penicillin G, Requip [Ropinirole], Enbrel [Etanercept], Jardiance [Empagliflozin], and Wellbutrin [Bupropion Hcl] MEDICATIONS gabapentin (NEURONTIN) 300 mg capsule Take 1 capsule by mouth daily at bedtime for 180 days. gabapentin (NEURONTIN) 100 mg capsule Take 1 capsule by mouth two times a day for 180 days. Take one in AM and one in afternoon. Take the 300mg before bed. insulin glargine U-300 conc (TOUJEO MAX U-300 SOLOSTAR) 300 unit/mL (3 mL) inpn Inject subcutaneously 130 units daily insulin lispro (HUMALOG KWIKPEN INSULIN) 100 unit/mL Inject 25 Units subcutaneously three times a day before meals. Inject 25 units with meals plus SS#2 (2 units for every 50 over 150) (1 units for every 10 grams of carbs). Limit of 100 units daily venlafaxine ER (EFFEXOR XR) 75 mg 24 hr capsule Take 1 capsule by mouth once daily. ferrous sulfate 325 mg (65 mg iron) tablet Take 1 tablet by mouth every other day. pramipexole (MIRAPEX) 0.125 mg tablet take 1 tablet by mouth every evening if needed for RESTELESS LEGS pramipexole (MIRAPEX) 0.5 mg tablet Take 1 tablet by mouth once daily. atorvastatin (LIPITOR) 40 mg tablet Take 1 tablet by mouth once daily. amLODIPine (NORVASC) 5 mg tablet Take 1 tablet by mouth once daily. atenolol (TENORMIN) 50 mg tablet Take 1 tablet by mouth once daily. fenofibrate nanocrystallized (TRICOR) 145 mg tablet Take 1 tablet by mouth once daily. montelukast (SINGULAIR) 10 mg tablet Take 1 tablet by mouth daily at bedtime. omeprazole (PRILOSEC) 40 mg capsule Take 1 capsule by mouth once daily. Blood-Glucose Transmitter (DEXCOM G6 TRANSMITTER) catracho 1 Each continuous. folic acid 1 mg tablet Take 3 mg by mouth once daily. hydrOXYchloroQUINE (PLAQUENIL) 200 mg tablet Take 2 tablets by mouth once daily. methotrexate 2.5 mg tablet Take 17.5 mg by mouth every Tuesday. nabumetone (RELAFEN) 750 mg tablet Take 750 mg by mouth two times a day. ORENCIA CLICKJECT 125 mg/mL auto-injector Inject 1 mL subcutaneously one time a week. (Patient not taking: Reported on 02/17/2024) Insulin Bradford, Disposable, (BD ULTRAFINE III MINI PEN) 31 gauge x 3/16 Use with insulin injection 2 times daily Blood-Glucose Sensor (DEXCOM G6 SENSOR) catracho Change sensor every 10 days. USE FOR CONTINUOUS GLUCOSE MONITORING. MULTIPLE INSULIN INJECTIONS. E11.9 metFORMIN (GLUCOPHAGE) 1,000 mg tablet Take 1 tablet by mouth two times a day with meals. losartan (COZAAR) 100 mg tablet TAKE ONE-HALF TABLET BY MOUTH ONCE DAILY (Patient taking differently: Take 50 mg by mouth once daily.) venlafaxine ER (EFFEXOR XR) 150 mg 24 hr capsule Take 1 capsule by mouth once daily. naproxen (NAPROSYN) 500 mg tablet Take 1 tablet by mouth two times a day as needed. Blood-Glucose Transmitter (DEXCOM G6 TRANSMITTER) catracho Change transmitter every 3 months - continuous glucose monitor, multiple insulin injections E-11.9 (Patient not taking: Reported on 02/17/2024) hydrOXYzine HCl (ATARAX) 25 mg tablet Take 1 tablet by mouth three times a day as needed for anxiety. blood sugar diagnostic (ONETOUCH ULTRA TEST) test strip Test blood sugar(s) 4 times daily. Dx: Type2 DM - Controlled E11.9 , Insulin: Yes Lancets (ONETOUCH ULTRASOFT LANCETS) lancets Test blood sugar(s) 4 times daily. Dx: Type 2 DM - Controlled E11.9 , Insulin: Yes famotidine (PEPCID) 20 mg tablet Take 1 tablet by mouth at bedtime as needed. glucagon (GLUCAGON EMERGENCY KIT, HUMAN,) 1 mg injection Inject (1)one mg for insulin shock. Blood-Glucose Meter,Continuous (DEXCOM G6 NAVAL SCIENCE TEACHER) misc 1 Each continuous. (Patient not taking: Reported on 02/17/2024) ondansetron orally disintegrating (ZOFRAN ODT) 4 mg disintegrating tablet Take 1 tablet by mouth every 6 hours as needed for nausea/vomiting. celecoxib (CELEBREX) 200 mg capsule Take 200 mg by mouth every morning. diclofenac (VOLTAREN) 1 % topical gel Apply 2 g to affected area four times daily. (Patient taking differently: Apply 2 g to affected area four times daily. As needed) triamcinolone acetonide (NASACORT AQ) 55 mcg nasal inhaler Use 2 Sprays in the nose once daily. FAMILY HISTORY Problem Relation Age of Onset Hypertension Mother Breast Cancer Mother other (raynaud) Mother Parkinson s Disease Father Hyperlipidemia Father Arthritis Father Breast Cancer Maternal Grandmother other (Thrombosis) Maternal Grandfather COPD Paternal Grandmother Coronary Artery Disease Paternal Grandmother Coronary Artery Disease Paternal Grandfather other (Brock Disease) Maternal Aunt Cervical Cancer Paternal Aunt Heart Paternal Aunt Factor 5 Leiden Paternal cousin Social History Tobacco Use Smoking status: Every Day Current packs/day: 0.50 Average packs/day: 0.5 packs/day for 31.0 years (15.5 ttl pk-yrs) Types: Cigarettes Smokeless tobacco: Never Vaping Use Vaping status: Never Used Substance Use Topics Alcohol use: No Drug use: No PHYSICAL EXAM BP 128/82 Pulse 72 Resp 16 Wt 86.2 kg (190 lb) SpO2 96% BMI 31.62 kg/m General Appearance: well appearing, in no acute distress, alert Eyes: conjunctiva pink and moist, no icterus, sclera white, non-injected Neck: Thyroid normal size and symmetric without palpable nodules, Neck supple, No adenopathy Lymph nodes: No cervical lymphadenopathy, No supraclavicular lymphadenopathy, No axillary lymphadenopathy., and No inguinal lymphadenopathy. Lungs: Lungs clear to auscultation. No wheezing, rhonchi, rales. Heart: RRR without murmur, gallop, or rubs. No ectopy Health maintenance reviewed with patient: Hepatitis B Vaccine(1 of 3 - 19+ 3-dose series) Never done Shingrix Vaccine(1 of 2) Never done Colorectal Cancer Screening Never done Cervical Cancer Screening due on 11/30/2014 BP Controlled (<130/80) due on 09/11/2022 DTaP,Tdap,Td Vaccine(2 - Td or Tdap) due on 03/28/2024 Mammogram Screening due on 05/03/2024 Dilated Retinal Exam due on 05/31/2024 Covid-19 Vaccine( - season) due on 12/18/2024 HbA1C due on 08/18/2024 Influenza Vaccine(Season Ended) due on 11/26/2024 Pneumococcal Vaccine: 50+(4 of 4 - PCV20 or PCV21) due on 01/09/2025 Diabetic Foot Exam due on 02/14/2025 LDL Cholesterol due on 03/14/2025 Urine Albumin:Creatinine Ratio due on 05/01/2025 Annual PCP Team Chronic Disease Visit due on 08/09/2025 Hepatitis C Screening Completed HIV Screening Completed DATA REVIEWED: No new labs Assessment/Plan 1. Other fatigue (R53.83) - Fatigue noted for approximately one month; potential causes include poor sleep quality, iron deficiency, and uncontrolled blood glucose levels. - Ordered lab tests to evaluate thyroid function, folate level, B12, iron levels, CBC, and kidney function. - Follow-up in 6 weeks to review lab results and assess improvement in fatigue. 2. Type 2 diabetes mellitus with diabetic nephropathy, unspecified whether financial services officer insulin use (HCC) (E11.21) - Blood glucose levels remain elevated with a 30-day average of 193 mg/dL and a 90-day average of 189 mg/dL. - Current insulin regimen includes Toujeo 120 units daily (60 units BID) and Humalog 25 units TID with meals. - Increased Toujeo dosage to 130 units daily (65 units BID). - Patient discontinued Ozempic due to gastrointestinal side effects. - Scheduled appointment with Dr. Avalos next month to discuss potential insulin pump therapy. - Advised patient on the importance of glycemic control to prevent complications. 3. Essential hypertension (I10) - Blood pressure well-controlled on losartan 100 mg daily, atenolol, and amlodipine. - No reports of chest pain, dyspnea, edema, or palpitations. - Continue current antihypertensive regimen. - Recommend home blood pressure monitoring, to bring results to next visit - Encouraged sodium restriction, DASH or Mediterranean diet - Recommend regular aerobic exercise 4. RLS (restless legs syndrome) (G25.81) - Symptoms well-controlled with current medication; exacerbation noted if medication is missed. - Monitor for any changes in symptoms. 5. Easy bruising (R23.3) - Noted bruising on legs; potential causes include medication side effects and low iron levels. - Discontinued aspirin therapy to reduce bruising risk. - Monitor for any further abnormal bleeding or bruising. 6. Iron deficiency (E61.1) - History of iron deficiency; recent increase in ice chewing behavior. - Ordered lab tests to assess current iron levels. - Confirmed patient is on iron supplementation; last refill in June. - Monitor lab results and adjust supplementation as needed. 7. Folate deficiency (E53.8) - Patient on folic acid supplementation - Ordered lab tests to assess current folate levels. - Continue current folic acid supplementation. 8. Rheumatoid arthritis, involving unspecified site, unspecified whether rheumatoid factor present (HCC) (M06.9) - Currently managed with Orencia, hydroxychloroquine, and methotrexate as ordered by rheumatology. - Occasional flares reported; inflammation markers within normal range. - Next rheumatology follow-up scheduled for December. - Patient using topical hemp cream for joint pain; advised to inform composition roofer. - Monitor for any changes in symptoms or side effects from medications. Prescription instructions reviewed with patient as applicable. Potential red flag symptoms discussed with the patient. Reviewed appropriate action plan to take if red flag symptoms occur. Patient agreeable to treatment plan. Gela Medina APRN.HAYLEE documented in this encounterProm[facility] Telephone encounter Note * Telephone Encounter - Marleni Coronel RN - 08/03/2024 11:00 AM EDT Call placed to Pt - name & verified. Pt notified of below notation per Dr. Gandhi; voices understanding. Marleni Coronel RN August 03, 2024 11:01 AM [facility]05-09-2025 Miscellaneous Notes* Telephone Encounter - Marleni Coronel RN - 08/03/2024 11:00 AM EDT Call placed to Pt - name & verified. Pt notified of below notation per Dr. Ganhdi; voices understanding. Marleni Coronel RN August 03, 2024 11:01 AM * Telephone Encounter - Amada Gandhi MD - 08/02/2024 3:48 PM EDT Yes, she is recommended to increase Toujeo by atleast 4 units while on Prednisone. After the initial increase of 4 units, if noticing blood sugars above 180 mg/dl, can increase by another 2 units. But once the prednisone course is done, she has to come back to original insulin doses * Telephone Encounter - Laila Harley LPN - 07/30/2024 1:15 PM EDT Patient calling in stating she is to start 5mg of Prednisone from Rheumatology and is wondering if she needs to up her Toujeo while she is on the Prednisone. She is worried about the Prednisone raising her blood sugars. Laila Harley LPN documented in this encounterProm[facility]05-08-2025 Telephone encounter Note * Telephone Encounter - Amada Gandhi MD - 08/02/2024 3:48 PM EDT Yes, she is recommended to increase Toujeo by atleast 4 units while on Prednisone. After the initial increase of 4 units, if noticing blood sugars above 180 mg/dl, can increase by another 2 units. But once the prednisone course is done, she has to come back to original insulin doses [facility]05-05-[facility] Telephone encounter Note* Telephone Encounter - Laila Harley LPN - 07/30/2024 1:15 PM EDT Patient calling in stating she is to start 5mg of Prednisone from Rheumatology and is wondering if she needs to up her Toujeo while she is on the Prednisone. She is worried about the Prednisone raising her blood sugars. Laila Harley LPN [facility]04-10-2025 Telephone encounter Note* Telephone Encounter - Destiney Briceno MA - 07/05/2024 10:09 AM EDT Referral faxed. [facility]04-10-[facility] Miscellaneous Notes* Telephone Encounter - Destiney Briceno MA - 07/05/2024 10:09 AM EDT Referral faxed. * Telephone Encounter - Gela Medina APRN.CNP - 07/05/2024 9:34 AM EDT Order placed. Please fax as requested and update patient. 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 Pt asking if Gela can write consult for her to see Dr. Lorenzo Avalos at [place], and send patient's information to Dr. Avalos, when consult is sent. documented in this encounterPromed[facility]04-10-2025 Telephone encounter Note * Telephone Encounter - Gela Medina APRN.CNP - 07/05/2024 9:34 AM EDT Order placed. Please fax as requested and update patient. 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 Pt asking if Gela can write consult for her to see Dr. Lorenzo Avalos at [place], and send patient's information to Dr. Avalos, when consult is sent. [facility]03-19-[facility] History of Present illness Narrative* Odilon Barber MD - 06/13/2024 11:00 AM EDT CHIEF COMPLAINT: joint pain HPI: Ongoing seronegative rheumatoid arthritis. She has a history of A-fib, and this has been stable recently. She feels Orencia is helping her joints along with Plaquenil methotrexate. She is not sure nabumetone is helping much with joint pain. She has less morning stiffness. No recent infections.She is planning on increasing activity soon with fishing season approaching. She has not had new areas of joint pain or stiffness. No visual changes or new rashes. General: no weight loss, fevers or night sweats HEENT: no dry eyes or mouth, oral ulcers, no visual changes or red eyes, no changes in hearing CV: no chest pain or palpitations Pulm: no worsening shortness of breath, no pleurisy GI: no nausea, GERD : no dysuria, incontinence or changes in kidney function Neuro: no new headaches, weakness or seizures Skin: no new rashes or skin lesions Allergies Allergen Reactions Penicillins Anaphylaxis Bupropion Other Seizure and hives Empagliflozin Hives Ropinirole Seizure Current Outpatient Medications Medication Sig Dispense Refill Abatacept (Orencia ClickJect) 125 MG/ML solution auto-injector Inject 125mg under the skin once a week 4 mL 5 amLODIPine (Norvasc) 5 MG tablet Take 5 mg by mouth in the morning. aspirin 81 MG EC tablet Take 81 mg by mouth in the morning. atenolol (Tenormin) 50 MG tablet Take 50 mg by mouth in the morning. atorvastatin (Lipitor) 20 MG tablet Take 20 mg by mouth in the morning. BD Pen Needle Teetee 2nd Gen 32G X 4 MM [facility] [place] USE TO INJECT INSULIN SUBCUTANEOUSLY TWICE A DAY DIRECTED Continuous Blood Gluc Sensor (Dexcom G6 Sensor) [facility] [place] Use a new sensor every 10 days. Diclofenac Sodium (Voltaren) 1 % gel Apply 2 g to affected hand bid prn 200 g 3 fenofibrate (Tricor) 145 MG tablet Take 145 mg by mouth in the morning. folic acid (Folvite) 1 MG tablet Take 3 tablets (3,000 mcg) by mouth daily. 90 tablet 11 gabapentin (Neurontin) 100 MG capsule Take 100 mg by mouth 2 times daily. gabapentin (Neurontin) 300 MG capsule Take 300 mg by mouth Nightly. glucagon (Gvoke HypoPen) 1 MG/0.2ML injection Inject 1 mg under the skin Once as needed for low blood sugar. Prn for emergency hydroxychloroquine (Plaquenil) 200 MG tablet Take 2 tablets (400 mg) by mouth daily. 60 tablet 2 insulin glargine (Lantus) 100 UNIT/ML pen Inject 67 Units under the skin in the morning and 67 Units in the evening. Insulin Glargine (TOUJEO MAX SOLOSTAR SC) Inject 112 Units under the skin every morning. Insulin Lispro (Humalog) 100 UNIT/ML solution injection Inject 5 Units under the skin. Sliding scale losartan (Cozaar) 100 MG tablet Take 0.5 tablets by mouth in the morning. metFORMIN (Glucophage) 1000 MG tablet Take 1 tablet by mouth in the morning and 1 tablet in the evening. Take with meals. methotrexate 2.5 MG tablet Take 7 tablets (17.5 mg total) by mouth 1 (one) time per week. 84 tablet1 methylPREDNISolone (Medrol) 4 MG tablet Take 2 tabs po every day for one week then 1 tab po every day for one week 21 tablet 0 montelukast (Singulair) 10 MG tablet Take 1 tablet by mouth Nightly. omeprazole (PriLOSEC) [address] capsule Take 1 capsule by mouth every morning (before breakfast). pramipexole (Mirapex) 0.5 MG tablet Take 0.5 mg by mouth in the morning. semaglutide (Ozempic, 1 MG/DOSE,) 4 MG/3ML solution pen-injector Inject 1 mg under the skin once a week. triamcinolone (Nasacort) 55 MCG/ACT nasal inhaler Administer 2 sprays into affected nostril(s) in the morning. Unifine Pentips 31G X 5 MM misc venlafaxine XR (Effexor XR) 150 MG 24 hr capsule Take 150 mg by mouth in the morning. No current facility-administered medications for this visit. OBJECTIVE: Visit Vitals BP (!) 143/84 (BP Location: Left arm, Patient Position: Sitting, BP Cuff Size: Large adult) Pulse 82 HEENT: no red or dry eyes, oral mucosa moist and without lesions, no alopecia or scalp rashes, no lymphadenopathy CV: S1S2 no mrg Pulm: CTA bilat without wheezes, crackles Abd: soft, nontender MSK: mild tenderness in MCPs, wrists bilat Neuro: CN 2-12 grossly intact, strength 5/5, no sensory loss in UE, LE, DTRs 1+ Skin: no rashes, no purpura, no bruising A/P: 1) seronegative rheumatoid arthritis. She has had improved symptoms on current Orencia Plaquenil methotrexate. She will continue current medications at the same doses, continue yearly eye exams for Plaquenil toxicity screens. Continue clinical lab ongoing 4 to 6 months. She will hold methotrexate and Orencia if she has any signs of fever chills cough or other signs of infection. She will hold offon further nabumetone which does not seem to be helping much currently. Orders Placed This Encounter Procedures Comprehensive metabolic panel Standing Status: Future Number of Occurrences: 1 Standing Expiration Date: 06/13/2025 CBC Standing Status: Future Number of Occurrences: 1 Standing Expiration Date: 06/13/2025 C-reactive protein Standing Status: Future Number of Occurrences: 1 Standing Expiration Date: 06/13/2025 documented in this [facility]02-27-2025 Telephone encounter Note* Telephone Encounter - Liyah Willett RN - 05/24/2024 11:31 AM EST The patient has been identified by name and date of : Yes Caregiver verified no other encounters exist for this prescription request: Yes Caregiver confirmed with patient/requestor that no other refills are due, in the near future, with this provider at this time: Yes The last office visit in the department: 05/11/2024 Does the patient have a future office visit with this provider/department: Yes 08/09/2024 Requested Prescriptions Pending Prescriptions Disp Refills pramipexole (MIRAPEX) 0.125 mg tablet 90 tablet 3 Sig: take 1 tablet by mouth every evening if needed for RESTELESS LEGS Liyah Willett RN May 24, 2024 11:32 AM [facility]02-27-2025 Miscellaneous Notes* Telephone Encounter - Liyah Willett RN - 05/24/2024 11:31 AM EST The patient has been identified by name and date of : Yes Caregiver verified no other encounters exist for this prescription request: Yes Caregiver confirmed with patient/requestor that no other refills are due, in the near future, with this provider at this time: Yes The last office visit in the department: 05/11/2024 Does the patient have a future office visit with this provider/department: Yes 08/09/2024 Requested Prescriptions Pending Prescriptions Disp Refills pramipexole (MIRAPEX) 0.125 mg tablet 90 tablet 3 Sig: take 1 tablet by mouth every evening if needed for RESTELESS LEGS Liyah Willett RN May 24, 2024 11:32 AM documented in this encounterPromed[facility]02-24-2025 Instructions* Patient Instructions* Amada Gandhi MD - 05/21/2024 12:17 PM EST Please increase Toujeo to 60 units in am, and to 58 units at bedtime Increase the dose of Humalog with breakfast and dinner to 24 units Start correction scale as below: before meals and at bedtime If blood glucose is 150-190, take 1 units of humalog If blood glucose is 190-230, take 2 units of humalog If blood glucose is 230-270, take 3 units of humalog If blood glucose is 270-310, take 4 units of humalog Continue Ozempic 1 mg weekly and metformin 1000 mg twice daily as is documented in this encounterPromed[facility]02-24-2025 NoteHNO ID: [id number] Author: CATHY DUNN MA Service: ? Author Type: Microelectronics Engineer Type: Progress Notes Filed: 05/23/2024 14:27 Note Text:[facility]02-24-2025 History of Present illness Narrative* Cathy Dunn MA - 05/21/2024 12:08 PM EST Images from the original note were not included. * Amada Gandhi MD - 05/21/2024 12:03 PM EST [facility] Follow up note Referred by: Gela medina APRN.HAYLEE Chief complaint: MAKAYLA History of present illness: This is a 53 year old female with MAKAYLA, HTN, HLD, RA, Reynaud's, IBS who is presenting for follow up evaluation and management of diabetes. She was initially diagnosed in 2009 as Type 2, and then diagnosed as MAKAYLA in 03/2022 after antibodies on labs by Katharine Dejesus APRN. AERIAL PHOTOGRAMMETRIST who she was seeing so far since Mar 2022 via [facility] She reports she has not been on steroids for RA or lupus as she knows they can have bad effects on her sugars Denies any micro or macrovascular complications from diabetes Complications: Cardiovascular -- Yes HTN, HLD Statin Use -- Yes Retinopathy -- No Last AZALEA/Retina Eval: May 2023 Nephropathy -- Yes MANDY/ARB Use -- Yes Polyneuropathy -- No Foot Exam: not sure Obesity -- Yes Other -- No Symptoms/concerns today No new concerns reported today Diabetes Medications -Current regimen: Humalog 22 units with sliding scale starting at 150 mg/dl Toujeo 112 units daily in am Ozempic 1 mg weekly- could not tolerate- went back to 0.5 mg weekly, now again at 1 mg weekly -Misses doses: None She is rotating injection sites but mostly takes in abdomen -Previously Used DM Meds Victoza Metformin . Blood sugars : Patient did not bring her reader, neither has accepted sharing data with clinic- link sent- but data could be downloaded after she has left clinic Summary of Personal CGM Findings: April 22, 2024 to May 21, 2024 Type of CGM: Dexcom G7 1) CGM recording is adequate for interpretation. Worn 92% of time. 2) Average glucose is 211 mg/dL. BG range/St. Dev: 41 mg/dL 3) 24% time in range 70-180 mg/dL 4) Total frequency of hypoglycemia: 0% with BG < 70 - Hypoglycemia patterns: 0 - Nocturnal hypoglycemia was NOT noted 5) Hyperglycemic episodes 60% with BG > 180, 16% >250 - Hyperglycemia patterns: Continues to have postprandial spikes with breakfast and dinner followed by overnight hyperglycemia Interpretation: as above . Hypoglycemia -Hypoglycemic episodes: none in the last few months -Frequency and timing of hypoglycemia: n/a -Hypoglycemia awareness: yes, feels diaphoretic, fogginess, shakiness . Lifestyle -Exercise: no -Diet: 3 meals a day Tries to eat healthy, watches diet closely She has seen diabetes education initially- does not prefer using carb counting - estimates requiredinsulin dosing with portion size . Blood pressure -Today BP: 142/82 -Current antihypertensive therapy: Losartan 100 mg once daily, amlodipine 5 mg once daily, [id number] mg once daily . Lipids -Last lipid panel: 02/2024 -Currently on Statin therapy: Lipitor 20 mg once daily -Statin associated side effects: Tolerating well ROS: As per HPI Past Medical History PAST MEDICAL HISTORY Diagnosis Date De Quervain's tenosynovitis, bilateral Depression with anxiety Diabetes (HCC) Fibromyalgia Hypercholesterolemia Hypertension IBS (irritable bowel syndrome) Raynaud's disease Restless legs syndrome (RLS) Past Surgical History PAST SURGICAL HISTORY Procedure Laterality Date CONE OF CERVIX LOOPELEC EXCIS EXTRACTION, ERUPTED TOOTH OR EXPOSED ROOT (ELEVATION AND/OR FORCEPS REMOVAL) [place] teeth x 4 HYSTERECTOMY HX precervical cancer, removed cervix KNEE SURGERY HX 4x right and left x4 Family History FAMILY HISTORY Problem Relation Age of Onset Hypertension Mother Breast Cancer Mother other (raynaud) Mother Parkinson s Disease Father Hyperlipidemia Father Arthritis Father Breast Cancer Maternal Grandmother other (Thrombosis) Maternal Grandfather COPD Paternal Grandmother Coronary Artery Disease Paternal Grandmother Coronary Artery Disease Paternal Grandfather other (Brock Disease) Maternal Aunt Cervical Cancer Paternal Aunt Heart Paternal Aunt Factor 5 Leiden Paternal cousin Social History Social History Tobacco Use Smoking status: Every Day Current packs/day: 0.50 Average packs/day: 0.5 packs/day for 31.0 years (15.5 ttl pk-yrs) Types: Cigarettes Smokeless tobacco: Never Vaping Use Vaping status: Never Used Substance Use Topics Alcohol use: No Drug use: No Allergies ALLERGIES Allergen Reactions Penicillin G Swelling Requip [Ropinirole] Other: See Comments seizures Enbrel [Etanercept] Other: See Comments Palpitations Jardiance [Empaglif* Other: See Comments Yeast infections Wellbutrin [Bupropi* Rash Current Medications Current Outpatient Medications Medication Sig Dispense Refill doxycycline (VIBRA-TABS) 100 mg tablet Take 1 tablet by mouth two times a day for 10 days. 20 tablet 0 pramipexole (MIRAPEX) 0.5 mg tablet Take 1 tablet by mouth once daily. 90 tablet 1 insulin glargine U-300 conc (TOUJEO MAX U-300 SOLOSTAR) 300 unit/mL (3 mL) inpn Inject subcutaneously 112 units daily 45 mL 3 atorvastatin (LIPITOR) 40 mg tablet Take 1 tablet by mouth once daily. 90 tablet 3 insulin lispro (HUMALOG KWIKPEN INSULIN) 100 unit/mL Inject 22 Units subcutaneously three times a day before meals. Inject 21 units with meals plus SS#2 (2 units for every 50 over 150) (1 units for every 10 grams of carbs). Limit of 75 units daily 10 Each 1 amLODIPine (NORVASC) 5 mg tablet Take 1 tablet by mouth once daily. 90 tablet 3 atenolol (TENORMIN) 50 mg tablet Take 1 tablet by mouth once daily. 90 tablet 3 fenofibrate nanocrystallized (TRICOR) 145 mg tablet Take 1 tablet by mouth once daily. 90 tablet 3 montelukast (SINGULAIR) 10 mg tablet Take 1 tablet by mouth daily at bedtime. 90 tablet 3 omeprazole (PRILOSEC) 40 mg capsule Take 1 capsule by mouth once daily. 90 capsule 1 Blood-Glucose Transmitter (DEXCOM G6 TRANSMITTER) catracho 1 Each continuous. 1 Each 0 folic acid 1 mg tablet Take 3 mg by mouth once daily. hydrOXYchloroQUINE (PLAQUENIL) 200 mg tablet Take 2 tablets by mouth once daily. methotrexate 2.5 mg tablet Take 17.5 mg by mouth every Tuesday. nabumetone (RELAFEN) 750 mg tablet Take 750 mg by mouth two times a day. ORENCIA CLICKJECT 125 mg/mL auto-injector Inject 1 mL subcutaneously one time a week. (Patient not taking: Reported on 02/17/2024) Insulin Bradford, Disposable, (BD ULTRAFINE III MINI PEN) 31 gauge x 3/16 Use with insulin injection 2 times daily 200 Each 3 Blood-Glucose Sensor (DEXCOM G6 SENSOR) catracho Change sensor every 10 days. USE FOR CONTINUOUS GLUCOSE MONITORING. MULTIPLE INSULIN INJECTIONS. E11.9 9 Each 3 gabapentin (NEURONTIN) 100 mg capsule Take 1 capsule by mouth two times a day for 180 days. Take one in AM and one in afternoon. Take the 300mg before bed. 180 capsule 1 gabapentin (NEURONTIN) 300 mg capsule Take 1 capsule by mouth daily at bedtime for 180 days. 90 capsule 1 metFORMIN (GLUCOPHAGE) 1,000 mg tablet Take 1 tablet by mouth two times a day with meals. 180 tablet 3 losartan (COZAAR) 100 mg tablet TAKE ONE-HALF TABLET BY MOUTH ONCE DAILY (Patient taking differently: Take 50 mg by mouth once daily.) 45 tablet 3 semaglutide (OZEMPIC) 0.25 mg or 0.5 mg (2 mg/3 mL) pen Inject 0.5 mg subcutaneously one time a week. 9 mL 3 venlafaxine ER (EFFEXOR XR) 150 mg 24 hr capsule Take 1 capsule by mouth once daily. 30 capsule 11 venlafaxine ER (EFFEXOR XR) 75 mg 24 hr capsule Take 1 capsule by mouth once daily. 90 capsule 3 ferrous sulfate 325 mg (65 mg iron) tablet Take 1 tablet by mouth every other day. 45 tablet 3 pramipexole (MIRAPEX) 0.125 mg tablet take 1 tablet by mouth every evening if needed for RESTELESS LEGS 90 tablet 3 naproxen (NAPROSYN) 500 mg tablet Take 1 tablet by mouth two times a day as needed. 60 tablet 0 Blood-Glucose Transmitter (DEXCOM G6 TRANSMITTER) catracho Change transmitter every 3 months - continuous glucose monitor, multiple insulin injections E-11.9 (Patient not taking: Reported on 02/17/2024) 1 Each 3 hydrOXYzine HCl (ATARAX) 25 mg tablet Take 1 tablet by mouth three times a day as needed for anxiety. 30 tablet 1 blood sugar diagnostic ([employer]CH ULTRA TEST) test strip Test blood sugar(s) 4 times daily. Dx: Type2 DM - Controlled E11.9 , Insulin: Yes 200 Strip 11 Lancets (ONETOUCH ULTRASOFT LANCETS) lancets Test blood sugar(s) 4 times daily. Dx: Type 2 DM - Controlled E11.9 , Insulin: Yes 200 Each 11 famotidine (PEPCID) 20 mg tablet Take 1 tablet by mouth at bedtime as needed. 30 tablet 1 glucagon (GLUCAGON EMERGENCY KIT, HUMAN,) 1 mg injection Inject (1)one mg for insulin shock. 2 Each1 Blood-Glucose Meter,Continuous (DEXCOM G6 [employer]) misc 1 Each continuous. (Patient not taking: Reported on 02/17/2024) 1 Each 0 ondansetron orally disintegrating (ZOFRAN ODT) 4 mg disintegrating tablet Take 1 tablet by mouth every 6 hours as needed for nausea/vomiting. 15 tablet 1 celecoxib (CELEBREX) 200 mg capsule Take 200 mg by mouth every morning. diclofenac (VOLTAREN) 1 % topical gel Apply 2 g to affected area four times daily. (Patient taking differently: Apply 2 g to affected area four times a day as needed.) 50 g 3 triamcinolone acetonide (NASACORT AQ) 55 mcg nasal inhaler Use 2 Sprays in the nose once daily. aspirin, enteric coated (ASPIRIN, ENTERIC COATED) 81 mg EC tablet Take 1 tablet by mouth once daily. 30 tablet 1 No current facility-administered medications for this visit. Vitals: 05/21/24 1205 BP Position: Sitting BP Cuff Size: Regular Adult Pulse: 73 Temp: (!) 35.9 C (96.7 F) TempSrc: Temporal Artery SpO2: 96% Weight: 89.5 kg (197 lb 6.4 oz) Physical Exam GENERAL: Well nourished, obese habitus, well hydrated, in no distress, alert and oriented x 3 EYES: no thyroid eye signs, EOMI NECK: , no tenderness and adenopathy THYROID: Non-tender to palpable, no evidence of goiter, no nodules palpable LUNGS: Unlabored on room air HEART: regular rate and rhythm GI: abdomen is normal on exam, soft, nontender, Injections sites with lipodystrophy Mild stretch carson noted on abdominal examination. EXTREMITIES: no edema, monofilament testing within normal limits in bilateral feet NEURO: normal strength, no tremor OTHER: Acanthosis None Labs: Latest Ref Rng 03/26/2023 04/07/2023 06/10/2023 10/19/2023 11/10/2023 12/19/2023 02/17/2024 03/14/2024 05/01/2024 05/11/2024 05/21/2024 Protein, Total 6.3 - 8.0 g/dL 6.8 6.8 7.1 6.7 Albumin 3.9 - 4.9 g/dL 4.5 4.3 4.4 4.2 Calcium 8.5 - 10.2 mg/dL 10.0 10.5 (H) 10.6 (H) 10.0 Bilirubin, Total 0.2 - 1.3 mg/dL 0.2 0.2 0.2 0.2 Alkaline Phosphatase 34 - 123 U/L 77 79 83 86 AST 13 - 35 U/L 20 21 24 21 ALT 7 - 38 U/L 22 33 23 24 Glucose 74 - 99 mg/dL 139 (H) 238 (H) 137 (H) 162 (H) BUN 7 - 21 mg/dL 13 15 12 14 Creatinine 0.58 - 0.96 mg/dL 0.67 0.76 0.69 0.79 Sodium 136 - 144 mmol/L 135 (L) 139 138 137 Potassium 3.7 - 5.1 mmol/L 4.4 4.6 4.4 4.5 Chloride 98 - 107 mmol/L 101 102 103 103 CO2 22 - 30 mmol/L 22 24 23 22 Anion Gap 8 - 15 mmol/L 12 13 12 12 eGFR >=60 mL/min/1.73m 104 93 103 89 Cholesterol, Total <200 mg/dL 208 (H) Triglyceride <150 mg/dL 350 (H) HDL Cholesterol >39 mg/dL 38 (L) Non HDL Cholesterol <130 mg/dL 170 (H) Fasting Time hrs 12 VLDL Cholesterol <30 mg/dL 70 (H) TC:HDL Ratio <5.10 5.47 (H) LDL Cholesterol <100 mg/dL 100 (H) LDL:HDL Ratio <2.54 2.63 (H) Creatinine, Ur Random (UCRR) 20.0 - 300.0 mg/dL 136.0 60.2 Albumin, Urine Random mg/L 795.8 1,048.4 Albumin/Creat Ratio <30 mg/g 585 (H) 1,742 (H) Hemoglobin A1C 4.3 - 5.6 % 7.0 (H) 8.2 (H) Estimated Average Glucose mg/dL 154 189 Normalized Calcium 1.08 - 1.30 mmol/L 1.35 (H) Ionized Calcium 1.08 - 1.30 mmol/L 1.38 (H) PTH, Intact 15 - 65 pg/mL 23 TSH 0.270 - 4.200 mIU/L 1.100 1.150 Free T4 0.9 - 1.7 ng/dL 1.4 Dexamethasone ng/dL 296.0 Cortisol,ON DEX,Post <1.8 ug/dL 0.9 Hemoglobin A1C (POCT) 4.3 - 5.6 % 8.5 ! 8.7 ! 9.3 ! Magnesium 1.7 - 2.3 mg/dL 1.7 Legend: (H) High (L) Low ! Abnormal Latest Ref Rng 04/14/2022 11/10/2023 02/17/2024 05/21/2024 Hemoglobin A1C (POCT) 4.3 - 5.6 % 8.5 ! 8.5 ! 8.7 ! 9.3 ! Legend: ! Abnormal Assessment and Plan This is a 53 year old female patient with MAKAYLA. She also has a significant autoimmune history of rheumatoid arthritis, SLE MAKAYLA- within poor control: -A1c 9.3% today, worsened from previous despite increasing dose - possibly component of pain as well as inflammation causing inconsistent highs. -eGFR 189 in 02/2024 -Current regimen: Toujeo U300 112 units daily in AM (56 units BID since last visit), Humalog 22 units with each meal along with correction scale starting at 150 mg/dL at 2:50 Ozempic 1 mg weekly Metformin 1000 mg twice daily Plan: - recommended increasing morning dose to 60 units, and evening dose to 58 units, in addition to increasing humalog with breakfast and dinner to 24 units - discussed starting correction scale before meals and at bedtime, 1:40 for sugars above 150 mg/dl - again recommended atleast 30 mins before meal, as well as to choose foods with low GI I discussed on a previous visit that metformin might not be extremely effective for control of BG, but I discussed actions of the medication and she preferred to continue for weight loss and insulin sensitivity - Continue ozempic 1 mg weekly and metformin 1000 mg BID -Instructed on side effects of nausea, vomiting, abdominal pain/cramping, diarrhea, early satiety, decreased appetite, pancreatitis - Hypoglycemia protocol discussed- discussed Baqsimi as she was not sure if she will be able to useglucagon emergency kit when a low occurs-unfortunately Baqsimi is excluded from coverage by her insurance at this time -Continue Dexcom. Discussed about close checking blood sugars with fingersticks when Dexcom is showing a low but she does not have any symptoms. -Call if blood sugar consistently <80 mg/dl or >200 mg/dl -Lifestyle modifications (diet, exercise, and weight loss) have been discussed with the patient -labs uptodate- alb/creatine ratio significantly elevated since previous test. On ARB already- thiscould be due to inflmmation, but will repeat on next lab work # Hypertension -Today BP was not checked -Currently antihypertensive regimen is losartan 100 mg once daily, amlodipine 5 mg once daily, atenolol 50 mg once daily -low salt diet and exercise discussed #Dyslipidemia -Last lipid panel was done in February 2024, elevation of Total cholesterol, LDL and TG (however TGbetter than in the past) -Currently on atorvastatin 20 mg once daily, continue -diet and exercise discussed again #Obesity Class II with serious comobidity -Diet and exercise discussed -On Ozempic 1 mg once weekly. She would like to continue metformin for weight loss as well, apart from blood sugar control - 1 mg DST was normal in the past RTC in 3 months I have confirmed and edited as necessary, the past medical, surgical, family, and social history asobtained by others. I spent a total of 57 minutes on the date of the service which included preparing to see the patient, [id number] patient care, completing clinical documentation, obtaining and/or reviewing separately obtained history, performing a medically appropriate examination, counseling and educating the pat ient/family/caregiver, ordering medications, tests, or procedures, and independently interpreting results (not separately reported). Amada Gandhi MD Endocrinology Associate Staff [facility] Endocrinology and Metabolism [place] [phone] Some elements were copied from my last note on 02/17/24 and has been updated as appropriate today documented in this encounterPromed[facility] NoteHNO ID: [id number] Author: AMADA GANDHI MD Service: ? Author Type: Physician Type: Progress Notes Filed: 05/23/2024 14:26 Note Text: [facility] Follow up note Referred by: Gela medina APRN.HAYLEE Chief complaint: MAKAYLA History of present illness: This is a 53 year old female with MAKAYLA, HTN, HLD, RA, Reynaud's, IBS who is presenting for follow up evaluation and management of diabetes. She was initially diagnosed in 2009 as Type 2, and then diagnosed as MAKAYLA in 03/2022 after antibodies on labs by Katharine Dejesus APRN. AERIAL PHOTOGRAMMETRIST who she was seeing so far since Mar 2022 via [facility] She reports she has not been on steroids for RA or lupus as she knows they can have bad effects on her sugars Denies any micro or macrovascular complications from diabetes Complications: Cardiovascular -- Yes HTN, HLD Statin Use -- Yes Retinopathy -- No Last AZALEA/Retina Eval: May 2023 Nephropathy -- Yes MANDY/ARB Use -- Yes Polyneuropathy -- No Foot Exam: not sure Obesity -- Yes Other -- No Symptoms/concerns today No new concerns reported today Diabetes Medications -Current regimen: Humalog 22 units with sliding scale starting at 150 mg/dl Toujeo 112 units daily in am Ozempic 1 mg weekly- could not tolerate- went back to 0.5 mg weekly, now again at 1 mg weekly -Misses doses: None She is rotating injection sites but mostly takes in abdomen -Previously Used DM Meds Victoza Metformin . Blood sugars : Patient did not bring her reader, neither has accepted sharing data with clinic- link sent- but data could be downloaded after she has left clinic Summary of Personal CGM Findings: April 22, 2024 to May 21, 2024 Type of CGM: Dexcom G7 1) CGM recording is adequate for interpretation. Worn 92% of time. 2) Average glucose is 211 mg/dL. BG range/St. Dev: 41 mg/dL 3) 24% time in range 70-180 mg/dL 4) Total frequency of hypoglycemia: 0% with BG < 70 - Hypoglycemia patterns: 0 - Nocturnal hypoglycemia was NOT noted 5) Hyperglycemic episodes 60% with BG > 180, 16% >250 - Hyperglycemia patterns: Continues to have postprandial spikes with breakfast and dinner followed by overnight hyperglycemia Interpretation: as above . Hypoglycemia -Hypoglycemic episodes: none in the last few months -Frequency and timing of hypoglycemia: n/a -Hypoglycemia awareness: yes, feels diaphoretic, fogginess, shakiness . Lifestyle -Exercise: no -Diet: 3 meals a day Tries to eat healthy, watches diet closely She has seen diabetes education initially- does not prefer using carb counting - estimates required insulin dosing with portion size . Blood pressure -Today BP: 142/82 -Current antihypertensive therapy: Losartan 100 mg once daily, amlodipine 5 mg once daily, atenolol 50 mg once daily . Lipids -Last lipid panel: 02/2024 -Currently on Statin therapy: Lipitor 20 mg once daily -Statin associated side effects: Tolerating well ROS: As per HPI Past Medical History PAST MEDICAL HISTORY Diagnosis Date De Quervain's tenosynovitis, bilateral Depression with anxiety Diabetes (HCC) Fibromyalgia Hypercholesterolemia Hypertension IBS (irritable bowel syndrome) Raynaud's disease Restless legs syndrome (RLS) Past Surgical History PAST SURGICAL HISTORY Procedure Laterality Date CONE OF CERVIX LOOPELEC EXCIS EXTRACTION, ERUPTED TOOTH OR EXPOSED ROOT (ELEVATION AND/OR FORCEPS REMOVAL) [place] teeth x 4 HYSTERECTOMY HX precervical cancer, removed cervix KNEE SURGERY HX 4x right and left x4 Family History FAMILY HISTORY Problem Relation Age of Onset Hypertension Mother Breast Cancer Mother other (raynaud) Mother Parkinson?s Disease Father Hyperlipidemia Father Arthritis Father Breast Cancer Maternal Grandmother other (Thrombosis) Maternal Grandfather COPD Paternal Grandmother Coronary Artery Disease Paternal Grandmother Coronary Artery Disease Paternal Grandfather other (Brock Disease) Maternal Aunt Cervical Cancer Paternal Aunt Heart Paternal Aunt Factor 5 Leiden Paternal cousin Social History Social History Tobacco Use Smoking status: Every Day Current packs/day: 0.50 Average packs/day: 0.5 packs/day for 31.0 years (15.5 ttl pk-yrs) Types: Cigarettes Smokeless tobacco: Never Vaping Use Vaping status: Never Used Substance Use Topics Alcohol use: No Drug use: No Allergies ALLERGIES Allergen Reactions Penicillin G Swelling Requip [Ropinirole] Other: See Comments seizures Enbrel [Etanercept] Other: See Comments Palpitations Jardiance [Empaglif* Other: See Comments Yeast infections Wellbutrin [Bupropi* Rash Current Medications Current Outpatient Medications Medication Sig Dispense Refill doxycycline (VIBRA-TABS) 100 mg tablet Take 1 tablet by mouth two times a day for 10 days. 20 tablet 0 pramipexole (MIRAPEX) 0.5 mg tablet Take 1 tablet by mouth once daily. 90 (more content not included)...[facility]02-14-2025 Telephone encounter Note* Telephone Encounter - Jackie Glover RN - 05/11/2024 4:01 PM EST Patient returns call and notified of below. Jackie Glover RN [facility]02-14-2025 Miscellaneous Notes* Telephone Encounter - Jackie Glover RN - 05/11/2024 4:01 PM EST Patient returns call and notified of below. Jackie Glover RN * Telephone Encounter - Destiney Briceno MA - 05/11/2024 3:26 PM EST Left message. * Telephone Encounter - Gela Medina APRN.CNP - 05/11/2024 3:21 PM EST Prescription sent as requested. Gela Medina APRN.CNP * Telephone Encounter - Anjelica Morley - 05/11/2024 2:56 PM EST Patient's fiance returned to the front end driver requesting that the patient's prescription ordered today be sent to [facility] in [place] as they will not get the medication from [facility] for 2-3 days. Please assist. Anjelica Morley documented in this encounterPromed[facility]02-14-2025 Telephone encounter Note * Telephone Encounter - Destiney Briceno MA - 05/11/2024 3:26 PM EST Left message. [facility] Telephone encounter Note* Telephone Encounter - Gela Medina APRN.CNP - 05/11/2024 3:21 PM EST Prescription sent as requested. Gela Medina APRN.CNP [facility]02-14-20[facility] Telephone encounter Note* Telephone Encounter - Anjelica Morley - 05/11/2024 2:56 PM EST Patient's fiance returned to the front end driver requesting that the patient's prescription ordered today be sent to [facility] in [place] as they will not get the medication from [facility] for 2-3 days. Please assist. Anjelica Morley [facility]02-14-2025 NoteHNO ID: [id number] Author: GELA MEDINA APRN.CNP Service: ? Author Type: Nurse Practitioner Type: Progress Notes Filed: 05/11/2024 15:56 Note Text: CC: Patient presents with: Recheck: DM follow up HPI Jarod Rodarte is a 53 year old female who presents today for sinus concerns. Has had sinus drainage for the past 3 months along with sneezing. Also having some headaches, sinus pain, itchy eyes, intermittent ear pain, and feels more tired then usual. Reports she gets allergies like this every year and waits until winter is over for it to resolve. Has had allergy testing 6 years ago showing allergies to animal hair, trees, and grass. Denies fever, chills, cough, wheezing, shortness of breath, dizziness, chest pain, edema, and palpitations. Has used Flonase, humidifiers, homeopathic ear drops, and another nasal spray with no improvement. On prescription Singulair but does not take any OTC allergy medicine. Changed air filters at home this past February. Same cat for 7 years without previous issue. No new pets. Also with right heel concerns. Has had cracks in her heels but last night the one on the right side cracked open and started bleeding. Uses a heavy duty aloe vera lotion and almond oil in with the lotion. Will cover with the socks. Has been having difficulty with her blood sugar uncontrolled which she is working with endocrinology and a dietitian to help with this. Denies fever, chills, drainage, redness. Edema, loss of sensation, or pain. REVIEW OF SYSTEMS See HPI PAST MEDICAL HISTORY Diagnosis Date De Quervain's tenosynovitis, bilateral Depression with anxiety Diabetes (HCC) Fibromyalgia Hypercholesterolemia Hypertension IBS (irritable bowel syndrome) Raynaud's disease Restless legs syndrome (RLS) PAST SURGICAL HISTORY Procedure Laterality Date CONE OF CERVIX LOOPELEC EXCIS EXTRACTION, ERUPTED TOOTH OR EXPOSED ROOT (ELEVATION AND/OR FORCEPS REMOVAL) [place] teeth x 4 HYSTERECTOMY HX precervical cancer, removed cervix KNEE SURGERY HX 4x right and left x4 ALLERGIES Penicillin G, Requip [Ropinirole], Enbrel [Etanercept], Jardiance [Empagliflozin], and Wellbutrin [Bupropion Hcl] MEDICATIONS pramipexole (MIRAPEX) 0.5 mg tablet Take 1 tablet by mouth once daily. insulin glargine U-300 conc (TOUJEO MAX U-300 SOLOSTAR) 300 unit/mL (3 mL) inpn Inject subcutaneously 112 units daily atorvastatin (LIPITOR) 40 mg tablet Take 1 tablet by mouth once daily. insulin lispro (HUMALOG KWIKPEN INSULIN) 100 unit/mL Inject 22 Units subcutaneously three times a day before meals. Inject 21 units with meals plus SS#2 (2 units for every 50 over 150) (1 units for every 10 grams of carbs). Limit of 75 units daily amLODIPine (NORVASC) 5 mg tablet Take 1 tablet by mouth once daily. atenolol (TENORMIN) 50 mg tablet Take 1 tablet by mouth once daily. fenofibrate nanocrystallized (TRICOR) 145 mg tablet Take 1 tablet by mouth once daily. montelukast (SINGULAIR) 10 mg tablet Take 1 tablet by mouth daily at bedtime. omeprazole (PRILOSEC) 40 mg capsule Take 1 capsule by mouth once daily. Blood-Glucose Transmitter (DEXCOM G6 TRANSMITTER) catracho 1 Each continuous. folic acid 1 mg tablet Take 3 mg by mouth once daily. hydrOXYchloroQUINE (PLAQUENIL) 200 mg tablet Take 2 tablets by mouth once daily. methotrexate 2.5 mg tablet Take 17.5 mg by mouth every Tuesday. nabumetone (RELAFEN) 750 mg tablet Take 750 mg by mouth two times a day. ORENCIA CLICKJECT 125 mg/mL auto-injector Inject 1 mL subcutaneously one time a week. (Patient not taking: Reported on 02/17/2024) Insulin Bradford, Disposable, (BD ULTRAFINE III MINI PEN) 31 gauge x 3/16 Use with insulin injection 2 times daily Blood-Glucose Sensor (DEXCOM G6 SENSOR) catracho Change sensor every 10 days. USE FOR CONTINUOUS GLUCOSE MONITORING. MULTIPLE INSULIN INJECTIONS. E11.9 gabapentin (NEURONTIN) 100 mg capsule Take 1 capsule by mouth two times a day for 180 days. Take one in AM and one in afternoon. Take the 300mg before bed. gabapentin (NEURONTIN) 300 mg capsule Take 1 capsule by mouth daily at bedtime for 180 days. metFORMIN (GLUCOPHAGE) 1,000 mg tablet Take 1 tablet by mouth two times a day with meals. losartan (COZAAR) 100 mg tablet TAKE ONE-HALF TABLET BY MOUTH ONCE DAILY (Patient taking differently: Take 50 mg by mouth once daily.) semaglutide (OZEMPIC) 0.25 mg or 0.5 mg (2 mg/3 mL) pen Inject 0.5 mg subcutaneously one time a week. venlafaxine ER (EFFEXOR XR) 150 mg 24 hr capsule Take 1 capsule by mouth once daily. venlafaxine ER (EFFEXOR XR) 75 mg 24 hr capsule Take 1 capsule by mouth once daily. ferrous sulfate 325 mg (65 mg iron) tablet Take 1 tablet by mouth every other day. pramipexole (MIRAPEX) 0.125 mg tablet take 1 tablet by mouth every evening if needed for RESTELESS LEGS naproxen (NAPROSYN) 500 mg tablet Take 1 tablet by mouth two times a day as needed. Blood-Glucose Transmitter (DEX (more content not included)...[facility]02-14-2025 History of Present illness Narrative* Gela Medina APRN.AERIAL PHOTOGRAMMETRIST - 05/11/2024 2:09 PM EST CC: Patient presents with: Recheck: DM follow up HPI Jarod Rodarte is a 53 year old female who presents today for sinus concerns. Has had sinus drainage for the past 3 months along with sneezing. Also having some headaches, sinuspain, itchy eyes, intermittent ear pain, and feels more tired then usual. Reports she gets allergies like this every year and waits until winter is over for it to resolve. Has had allergy testing 6 years ago showing allergies to animal hair, trees, and grass. Denies fever, chills, cough, wheezing, shortness of breath, dizziness, chest pain, edema, and palpitations. Has used Flonase, humidifiers, homeopathic ear drops, and another nasal spray with no improvement. On prescription Singulair but does not take any OTC allergy medicine. Changed air filters at home this past February. Same cat for 7 years without previous issue. No new pets. Also with right heel concerns. Has had cracks in her heels but last night the one on the right sidecracked open and started bleeding. Uses a heavy duty aloe vera lotion and almond oil in with the lotion. Will cover with the socks. Has been having difficulty with her blood sugar uncontrolled which she is working with endocrinology and a dietitian to help with this. Denies fever, chills, drainage, redness. Edema, loss of sensation, or pain. REVIEW OF SYSTEMS See HPI PAST MEDICAL HISTORY Diagnosis Date De Quervain's tenosynovitis, bilateral Depression with anxiety Diabetes (HCC) Fibromyalgia Hypercholesterolemia Hypertension IBS (irritable bowel syndrome) Raynaud's disease Restless legs syndrome (RLS) PAST SURGICAL HISTORY Procedure Laterality Date CONE OF CERVIX LOOPELEC EXCIS EXTRACTION, ERUPTED TOOTH OR EXPOSED ROOT (ELEVATION AND/OR FORCEPS REMOVAL) [place] teeth x 4 HYSTERECTOMY HX precervical cancer, removed cervix KNEE SURGERY HX 4x right and left x4 ALLERGIES Penicillin G, Requip [Ropinirole], Enbrel [Etanercept], Jardiance [Empagliflozin], and Wellbutrin [Bupropion Hcl] MEDICATIONS pramipexole (MIRAPEX) 0.5 mg tablet Take 1 tablet by mouth once daily. insulin glargine U-300 conc (TOUJEO MAX U-300 SOLOSTAR) 300 unit/mL (3 mL) inpn Inject subcutaneously 112 units daily atorvastatin (LIPITOR) 40 mg tablet Take 1 tablet by mouth once daily. insulin lispro (HUMALOG KWIKPEN INSULIN) 100 unit/mL Inject 22 Units subcutaneously three times a day before meals. Inject 21 units with meals plus SS#2 (2 units for every 50 over 150) (1 units for every 10 grams of carbs). Limit of 75 units daily amLODIPine (NORVASC) 5 mg tablet Take 1 tablet by mouth once daily. atenolol (TENORMIN) 50 mg tablet Take 1 tablet by mouth once daily. fenofibrate nanocrystallized (TRICOR) 145 mg tablet Take 1 tablet by mouth once daily. montelukast (SINGULAIR) 10 mg tablet Take 1 tablet by mouth daily at bedtime. omeprazole (PRILOSEC) 40 mg capsule Take 1 capsule by mouth once daily. Blood-Glucose Transmitter (DEXCOM G6 TRANSMITTER) catracho 1 Each continuous. folic acid 1 mg tablet Take 3 mg by mouth once daily. hydrOXYchloroQUINE (PLAQUENIL) 200 mg tablet Take 2 tablets by mouth once daily. methotrexate 2.5 mg tablet Take 17.5 mg by mouth every Tuesday. nabumetone (RELAFEN) 750 mg tablet Take 750 mg by mouth two times a day. ORENCIA CLICKJECT 125 mg/mL auto-injector Inject 1 mL subcutaneously one time a week. (Patient not taking: Reported on 02/17/2024) Insulin Bradford, Disposable, (BD ULTRAFINE III MINI PEN) 31 gauge x 3/16 Use with insulin injection 2 times daily Blood-Glucose Sensor (DEXCOM G6 SENSOR) catracho Change sensor every 10 days. USE FOR CONTINUOUS GLUCOSE MONITORING. MULTIPLE INSULIN INJECTIONS. E11.9 gabapentin (NEURONTIN) 100 mg capsule Take 1 capsule by mouth two times a day for 180 days. Take one in AM and one in afternoon. Take the 300mg before bed. gabapentin (NEURONTIN) 300 mg capsule Take 1 capsule by mouth daily at bedtime for 180 days. metFORMIN (GLUCOPHAGE) 1,000 mg tablet Take 1 tablet by mouth two times a day with meals. losartan (COZAAR) 100 mg tablet TAKE ONE-HALF TABLET BY MOUTH ONCE DAILY (Patient taking differently: Take 50 mg by mouth once daily.) semaglutide (OZEMPIC) 0.25 mg or 0.5 mg (2 mg/3 mL) pen Inject 0.5 mg subcutaneously one time a week. venlafaxine ER (EFFEXOR XR) 150 mg 24 hr capsule Take 1 capsule by mouth once daily. venlafaxine ER (EFFEXOR XR) 75 mg 24 hr capsule Take 1 capsule by mouth once daily. ferrous sulfate 325 mg (65 mg iron) tablet Take 1 tablet by mouth every other day. pramipexole (MIRAPEX) 0.125 mg tablet take 1 tablet by mouth every evening if needed for RESTELESS LEGS naproxen (NAPROSYN) 500 mg tablet Take 1 tablet by mouth two times a day as needed. Blood-Glucose Transmitter (DEXCOM G6 TRANSMITTER) catracho Change transmitter every 3 months - continuous glucose monitor, multiple insulin injections E-11.9 (Patient not taking: Reported on 02/17/2024) hydrOXYzine HCl (ATARAX) 25 mg tablet Take 1 tablet by mouth three times a day as needed for anxiety. blood sugar diagnostic (ONETOUCH ULTRA TEST) test strip Test blood sugar(s) 4 times daily. Dx: Type2 DM - Controlled E11.9 , Insulin: Yes Lancets (ONETOUCH ULTRASOFT LANCETS) lancets Test blood sugar(s) 4 times daily. Dx: Type 2 DM - Controlled E11.9 , Insulin: Yes famotidine (PEPCID) 20 mg tablet Take 1 tablet by mouth at bedtime as needed. glucagon (GLUCAGON EMERGENCY KIT, HUMAN,) 1 mg injection Inject (1)one mg for insulin shock. Blood-Glucose Meter,Continuous (DEXCOM G6 NAVAL SCIENCE TEACHER) misc 1 Each continuous. (Patient not taking: Reported on 02/17/2024) ondansetron orally disintegrating (ZOFRAN ODT) 4 mg disintegrating tablet Take 1 tablet by mouth every 6 hours as needed for nausea/vomiting. celecoxib (CELEBREX) 200 mg capsule Take 200 mg by mouth every morning. diclofenac (VOLTAREN) 1 % topical gel Apply 2 g to affected area four times daily. (Patient taking differently: Apply 2 g to affected area four times a day as needed.) triamcinolone acetonide (NASACORT AQ) 55 mcg nasal inhaler Use 2 Sprays in the nose once daily. aspirin, enteric coated (ASPIRIN, ENTERIC COATED) 81 mg EC tablet Take 1 tablet by mouth once daily. FAMILY HISTORY Problem Relation Age of Onset Hypertension Mother Breast Cancer Mother other (raynaud) Mother Parkinson s Disease Father Hyperlipidemia Father Arthritis Father Breast Cancer Maternal Grandmother other (Thrombosis) Maternal Grandfather COPD Paternal Grandmother Coronary Artery Disease Paternal Grandmother Coronary Artery Disease Paternal Grandfather other (Tensas Disease) Maternal Aunt Cervical Cancer Paternal Aunt Heart Paternal Aunt Factor 5 Leiden Paternal cousin Social History Tobacco Use Smoking status: Every Day Current packs/day: 0.50 Average packs/day: 0.5 packs/day for 31.0 years (15.5 ttl pk-yrs) Types: Cigarettes Smokeless tobacco: Never Vaping Use Vaping status: Never Used Substance Use Topics Alcohol use: No Drug use: No PHYSICAL EXAM BP 122/80 Pulse 84 Resp 16 Wt 89.4 kg (197 lb) SpO2 97% BMI 32.78 kg/m General Appearance: well appearing, in no acute distress, alert Eyes: conjunctiva pink and moist, no icterus, sclera white, non-injected Ears: external ears normal to inspection and palpation, canals clear, Left tympanic membrane normal. , Right tympanic membrane normal Nose/sinus: Nares normal. Septum midline. Mucosa normal. No drainage. Sinus tenderness to bilateralmaxillary sinuses Neck: Thyroid normal size and symmetric without palpable nodules, Neck supple, No adenopathy Oropharynx: clear post nasal drainage noted to posterior pharynx Lymph nodes: No cervical lymphadenopathy and No supraclavicular lymphadenopathy Lungs: Lungs clear to auscultation. No wheezing, rhonchi, rales. Heart: RRR without murmur, gallop, or rubs. No ectopy BLE Extremities: No deformities, edema, clubbing or cyanosis. Good capillary refill. Pulses palpable and sensation intact. No calluses. does have dry closed fissures to bilateral heels with one smallopen one to posterior part of right heel without redness, drainage, edema, or tenderness. History of Reynauds so toes dusky and cool at first on exam but color returns and temperature increases with elevation of legs. Health maintenance reviewed with patient: Hepatitis B Vaccine(1 of 3 - 19+ 3-dose series) Never done Shingrix Vaccine(1 of 2) Never done Colorectal Cancer Screening Never done Cervical Cancer Screening due on 11/30/2014 BP Controlled (<130/80) due on 09/11/2022 DTaP,Tdap,Td Vaccine(2 - Td or Tdap) due on 03/28/2024 Mammogram Screening due on 05/03/2024 Dilated Retinal Exam due on 05/31/2024 Influenza Vaccine(1) due on 09/24/2024 Covid-19 Vaccine(4 - season) due on 12/18/2024 HbA1C due on 06/12/2024 Pneumococcal Vaccine: 50+(4 of 4 - PCV20 or PCV21) due on 01/09/2025 Diabetic Foot Exam due on 02/14/2025 Annual PCP Team Chronic Disease Visit due on 02/14/2025 LDL Cholesterol due on 03/14/2025 Urine Albumin:Creatinine Ratio due on 05/01/2025 Hepatitis C Screening Completed HIV Screening Completed DATA REVIEWED: No new labs ASSESSMENT/PLAN: 1. Chronic maxillary sinusitis - ICD9: 473.0, ICD10: J32.0 (primary diagnosis) - Will begin treatment with as per antibiotic as written, see orders - Supportive care with plenty of fluids, rest, and analgesia prn. - Follow up in 3-5 days if symptoms persist or worsen. 2. Allergic rhinitis, unspecified seasonality, unspecified trigger - ICD9: 477.9, ICD10: J30.9 Possibly from the cat as she has a known allergy to one. Patient feels she is unable to part with her pet at this time. Agreeable to add claritin in the AM, change pillow case daily, and consider keeping her bedroom free of the cat. If no improvement will need to see ENT or quality measurement specialist. Can also use over the counter allergy eye drops as indicated as well. 3. Encounter for screening mammogram for breast cancer - ICD9: V76.12, ICD10: Z12.31 - TORRI SCREENING W GIBRAN 4. Fissure in skin of foot - ICD9: 709.8, ICD10: R23.4 Do not uses the scented lotions you are currently using. Use aquaphor or unscented cream for feet. If no improvement will need to see podiatry. Prescription instructions reviewed with patient as applicable. Potential red flag symptoms discussed with the patient. Reviewed appropriate action plan to take if red flag symptoms occur. Patient agreeable to treatment plan. Gela Medina APRN.CNP documented in this encounterProm[facility] Telephone encounter Note * Telephone Encounter - Jackie Glover RN - 04/11/2024 9:48 AM EST [place] with [facility] calls to request One Touch Ultra Lancets and test strips QID. Call placed to patient to verify if she wants those prescriptions and if so which pharmacy. [facility] is listed as preferred pharmacy but Mirapex pended below is being sent to [facility]? Jackie Glover RN [facility]01-15-2025 Miscellaneous Notes* Telephone Encounter - Jackie Glover RN - 04/11/2024 9:48 AM EST [facility] with [facility] calls to request One Touch Ultra Lancets and test strips QID. Call placed to patient to verify if she wants those prescriptions and if so which pharmacy. [facility] is listed as preferred pharmacy but [facility]x pended below is [facility] to [facility]? Jackie Glover RN * Telephone Encounter - Wanda Holloway LPN - 04/11/2024 8:50 AM EST The patient has been identified by name and date of : Yes Caregiver verified no other encounters exist for this prescription request: Yes Caregiver confirmed with patient/requestor that no other refills are due, in the near future, with this provider at this time: Yes The last office visit in the department: 02/15/2024 Does the patient have a future office visit with this provider/department: Yes 05/09/2024 Requested Prescriptions Pending Prescriptions Disp Refills pramipexole (MIRAPEX) 0.5 mg tablet 90 tablet 1 Sig: Take 1 tablet by mouth once daily. Wanda Holloway LPN April 11, 2024 8:51 AM documented in this encounterPromed[facility]01-[facility]25 Telephone encounter Note * Telephone Encounter - Wanda Holloway LPN - 04/11/2024 8:50 AM EST The patient has been identified by name and date of : Yes Caregiver verified no other encounters exist for this prescription request: Yes Caregiver confirmed with patient/requestor that no other refills are due, in the near future, with this provider at this time: Yes The last office visit in the department: 02/15/2024 Does the patient have a future office visit with this provider/department: Yes 05/09/2024 Requested Prescriptions Pending Prescriptions Disp Refills pramipexole (MIRAPEX) 0.5 mg tablet 90 tablet 1 Sig: Take 1 tablet by mouth once daily. Wanda Holloway LPN April 11, 2024 8:51 AM [facility]01-13-[facility]25 History of Present illness Narrative* Ludy Oreilly, KENZIE - 04/09/2024 1:00 PM EST Images from the original note were not included. [facility] Medical Nutrition Therapy Visit Type: In-Person (Face to Face): Patient states reason for visit: MAKAYLA Management Initial DEMOGRAPHICS: Co-Morbidities: PAST MEDICAL HISTORY Diagnosis Date De Quervain's tenosynovitis, bilateral Depression with anxiety Diabetes (HCC) Fibromyalgia Hypercholesterolemia Hypertension IBS (irritable bowel syndrome) Raynaud's disease Restless legs syndrome (RLS) Activity: Do you regularly exercise? No structured exercise r/t RA. - Cleaning the house, organizing, or walking throughout the day. - >2K steps per day Symptoms: Patient's symptoms are as follows: Hyperglycemia How many hours of sleep on average? 7-8 hours, interrupted - To bed: 10P; Wake up: 5-6A - Relates difficulty staying asleep d/t restless feet, heart palpitations (has upcoming appointmentto address), and Dexcom sensor for high readings. Diet History: Breakfast (7-8A): Bagel w/ egg and uriostegui (2 pieces) Lunch (11A-12P): salad w/ tuna and tomatoes with light luxembourger dressing, OR Yogurt (not serbian), OR Leftovers Dinner (5P): Liver and onions w/ mashed potatoes and corn, OR Stirfry w/ chicken or beef/stirfry vegetables/rice, OR Spaghetti (meat) and salad w/ occasional garlic bread, OR Freezer Meal (pizza/chicken nuggets) Snack (7P): dill 2 pickles and 4-5 cubes of cheese Fluids: Coffee (SF creamer), Water (3, >/=24 ounces cup), Peak Tea (SF), Occasional Diet Pop Dining/eating out? Occasional, 2-3 x month Allergies: No Food Allergy Patient / Provider Comments: - Lorenzo, pt stanislav present, for pt appointment. - Pt relates has gained 20 lbs over the past year- pt attributes wt gain to insulin changes. Reports interest in nutrition information for weight management as well as MAKAYLA. - Current DM medications: Humalog (22 units before meal plus SS#2), Metformin, Toujeo (58 units twice daily), Ozempic (1.5 mg) - Has Dexcom G6 BGM. - Hypoglycemic events: pt reports 1 time recently (uncertain when occurred). Relates if BG drops to39-40 mg/dl will feel confusion, shakiness. However relates their have been times where BG is in low 40's and not symptomatic. - Hyperglycemic events: Relates if BG goes high may experience fatigue or blurred vision. However, states times of BG going to 400 mg/dl w/ no symptoms indicating rise. - Initial DM dx: 2010 w/ T2DM, diagnoised w/ MAKAYLA in 2022 after antibodies found on labs - Recent A1C 8.2% 02/2024 - Hx of joint pain r/t RA. - Relates has nodules forming in abdomen. Reviewed sites for injections and pt plans to discuss with Dr. Mahajan at next appointment as pt reports Dr. Mahajan and pt considering starting pt on insulin pump. Medications: Current Outpatient Medications Medication Sig atorvastatin (LIPITOR) 40 mg tablet Take 1 tablet by mouth once daily. insulin lispro (HUMALOG KWIKPEN INSULIN) 100 unit/mL Inject 22 Units subcutaneously three times a day before meals. Inject 21 units with meals plus SS#2 (2 units for every 50 over 150) (1 units for every 10 grams of carbs). Limit of 75 units daily amLODIPine (NORVASC) 5 mg tablet Take 1 tablet by mouth once daily. atenolol (TENORMIN) 50 mg tablet Take 1 tablet by mouth once daily. fenofibrate nanocrystallized (TRICOR) 145 mg tablet Take 1 tablet by mouth once daily. montelukast (SINGULAIR) 10 mg tablet Take 1 tablet by mouth daily at bedtime. omeprazole (PRILOSEC) 40 mg capsule Take 1 capsule by mouth once daily. Blood-Glucose Transmitter (DEXCOM G6 TRANSMITTER) catracho 1 Each continuous. folic acid 1 mg tablet Take 3 mg by mouth once daily. hydrOXYchloroQUINE (PLAQUENIL) 200 mg tablet Take 2 tablets by mouth once daily. methotrexate 2.5 mg tablet Take 17.5 mg by mouth every Tuesday. nabumetone (RELAFEN) 750 mg tablet Take 750 mg by mouth two times a day. ORENCIA CLICKJECT 125 mg/mL auto-injector Inject 1 mL subcutaneously one time a week. (Patient not taking: Reported on 02/17/2024) Insulin Bradford, Disposable, (BD ULTRAFINE III MINI PEN) 31 gauge x 3/16 Use with insulin injection 2 times daily Blood-Glucose Sensor (DEXCOM G6 SENSOR) catracho Change sensor every 10 days. USE FOR CONTINUOUS GLUCOSE MONITORING. MULTIPLE INSULIN INJECTIONS. E11.9 gabapentin (NEURONTIN) 100 mg capsule Take 1 capsule by mouth two times a day for 180 days. Take one in AM and one in afternoon. Take the 300mg before bed. gabapentin (NEURONTIN) 300 mg capsule Take 1 capsule by mouth daily at bedtime for 180 days. metFORMIN (GLUCOPHAGE) 1,000 mg tablet Take 1 tablet by mouth two times a day with meals. losartan (COZAAR) 100 mg tablet TAKE ONE-HALF TABLET BY MOUTH ONCE DAILY (Patient taking differently: Take 50 mg by mouth once daily.) insulin glargine U-300 conc (TOUJEO MAX U-300 SOLOSTAR) 300 unit/mL (3 mL) inpn Inject subcutaneously 112 units daily (Patient taking differently: Inject 112 Units subcutaneously every morning.) semaglutide (OZEMPIC) 0.25 mg or 0.5 mg (2 mg/3 mL) pen Inject 0.5 mg subcutaneously one time a week. venlafaxine ER (EFFEXOR XR) 150 mg 24 hr capsule Take 1 capsule by mouth once daily. venlafaxine ER (EFFEXOR XR) 75 mg 24 hr capsule Take 1 capsule by mouth once daily. ferrous sulfate 325 mg (65 mg iron) tablet Take 1 tablet by mouth every other day. pramipexole (MIRAPEX) 0.125 mg tablet take 1 tablet by mouth every evening if needed for RESTELESS LEGS pramipexole (MIRAPEX) 0.5 mg tablet Take 1 tablet by mouth once daily. naproxen (NAPROSYN) 500 mg tablet Take 1 tablet by mouth two times a day as needed. Blood-Glucose Transmitter (DEXCOM G6 TRANSMITTER) catracho Change transmitter every 3 months - continuous glucose monitor, multiple insulin injections E-11.9 (Patient not taking: Reported on 02/17/2024) hydrOXYzine HCl (ATARAX) 25 mg tablet Take 1 tablet by mouth three times a day as needed for anxiety. blood sugar diagnostic (ONETOUCH ULTRA TEST) test strip Test blood sugar(s) 4 times daily. Dx: Type2 DM - Controlled E11.9 , Insulin: Yes Lancets (ONETOUCH ULTRASOFT LANCETS) lancets Test blood sugar(s) 4 times daily. Dx: Type 2 DM - Controlled E11.9 , Insulin: Yes famotidine (PEPCID) 20 mg tablet Take 1 tablet by mouth at bedtime as needed. glucagon (GLUCAGON EMERGENCY KIT, HUMAN,) 1 mg injection Inject (1)one mg for insulin shock. Blood-Glucose Meter,Continuous (DEXCOM G6 NAVAL SCIENCE TEACHER) misc 1 Each continuous. (Patient not taking: Reported on 02/17/2024) ondansetron orally disintegrating (ZOFRAN ODT) 4 mg disintegrating tablet Take 1 tablet by mouth every 6 hours as needed for nausea/vomiting. celecoxib (CELEBREX) 200 mg capsule Take 200 mg by mouth every morning. diclofenac (VOLTAREN) 1 % topical gel Apply 2 g to affected area four times daily. (Patient taking differently: Apply 2 g to affected area four times a day as needed.) triamcinolone acetonide (NASACORT AQ) 55 mcg nasal inhaler Use 2 Sprays in the nose once daily. aspirin, enteric coated (ASPIRIN, ENTERIC COATED) 81 mg EC tablet Take 1 tablet by mouth once daily. No current facility-administered medications for this visit. Labs: Lab Results Component Value Date HBA1C 8.2 03/14/2024 HBA1C 8.7 02/17/2024 HBA1C 8.5 11/10/2023 HBA1C 7.0 03/26/2023 HBA1C 6.3 01/06/2023 HBA1C 8.5 04/14/2022 HBA1C 7.9 01/12/2021 HBA1C 8.2 07/17/2020 HBA1C 8.6 01/04/2020 Cholesterol, Total Date Value Ref Range Status 03/14/2024 208 (H) <200 mg/dL Final Comment: <200 mg/dL, Desirable 200-239 mg/dL, Borderline high >239 mg/dL, High HDL Cholesterol Date Value Ref Range Status 03/14/2024 38 (L) >39 mg/dL Final Comment: 40-59 mg/dL, Acceptable >59 mg/dL, High: Negative risk factor for coronary heart disease <40 mg/dL, Low: Positive risk factor for coronary heart disease LDL Cholesterol Date Value Ref Range Status 03/14/2024 100 (H) <100 mg/dL Final Comment: <100 mg/dL, Optimal 100-129 mg/dL, Near optimal/above optimal 130-159 mg/dL, Borderline high 160-189 mg/dL, High >189 mg/dL, Very high Secondary prevention optimal LDL Cholesterol levels are recommended to be < 70 mg/dL Triglyceride Date Value Ref Range Status 03/14/2024 350 (H) <150 mg/dL Final Comment: <150 mg/dL, Normal 150-199 mg/dL, Borderline high 200-499 mg/dL, High >499 mg/dL, Very high Glucose (mg/dL) Date Value 03/14/2024 137 01/12/2021 126 Potassium (mmol/L) Date Value 03/14/2024 4.4 01/12/2021 4.2 Sodium (mmol/L) Date Value 03/14/2024 138 01/12/2021 137 Chloride (mmol/L) Date Value 03/14/2024 103 01/12/2021 103 CO2 (mmol/L) Date Value 03/14/2024 23 01/12/2021 24 Creatinine (mg/dL) Date Value 03/14/2024 0.69 01/12/2021 0.58 BUN (mg/dL) Date Value 03/14/2024 12 01/12/2021 10 Anion Gap (mmol/L) Date Value 03/14/2024 12 01/12/2021 10 Calcium (mg/dL) Date Value 01/12/2021 10.6 Calcium, Total (mg/dL) Date Value 03/14/2024 10.6 Protein, Total (g/dL) Date Value 03/14/2024 7.1 01/04/2019 7.3 Albumin (g/dL) Date Value 03/14/2024 4.4 01/04/2019 4.5 Bilirubin, Total (mg/dL) Date Value 03/14/2024 0.2 01/04/2019 0.2 Alkaline Phosphatase (U/L) Date Value 03/14/2024 83 01/04/2019 80 AST (U/L) Date Value 03/14/2024 24 03/01/2020 18 ALT (U/L) Date Value 03/14/2024 23 03/01/2020 24 ANTHROPOMETRICS Height: Last 1 Encounter Ht Readings: Date: Ht: 02/17/2024 165.1 cm (5' 5) Current weight: Last 3 Encounter Wt Readings: Date: Wt: 02/17/2024 89 kg (196 lb 3.2 oz) 02/15/2024 88.9 kg (196 lb) 12/19/2023 88 kg (194 lb) BMI: 32.65 kg/m2 5% -10% Weight loss: 9.5-19 lbs Last Wt 02/17/24 : 89 kg (196 lb 3.2 oz) 5% weight loss = 186 lbs, 10% weight loss = 177 lbs [place] body weight: 57 kg (125 lb 10.6 oz) Adjusted ideal body weight: 69.8 kg (153 lb 14 oz) READINESS TO LEARN Cognitive ability: Alert and oriented Motivation to learn: Interested Family support: High - Very involved in pt care Instruction provided to: Patient and Spouse Patient learns best by: Multiple Methods Factors affecting learning: None Physical limitations affecting learning: None Stage of Change: Action Nutrition Diagnosis: Food and nutrition related knowledge deficit, related to; lack of prior exposure to information , as evidenced by client has no prior knowledge of need for food and nutrition - related information Calories Needed for Current Weight: Resting Metabolic Rate: 1494 Nutrition Intervention: -Diabetes Basics: role of insulin in the body, role of glucose in the body, and relationship of glucose and insulin in the body -Monitoring: A1c meaning and target <7%, BG targets, CGM basics & daily use, and hqpe-dz-gydof (TIR) -Healthy Eating: -- Encouraged establishing meals consistency; regularly consume 3 meals per day and snacks as needed. -- Space meals and/or snacks a part by 3-5 hours. -- Plate Method:1/2 plate non-starchy vegetables, 1/4 plate protein, 1/4 plate starch/grain/fruit -- carbohydrate and protein sources and effect on blood sugar regulation and metabolism -- Encouraged to always pair protein and/or healthy fat with CHO sources. Do not consume naked CHO. -- concepts of the Mediterranean diet for healthy carb choices -- CHO counting and foods with carbs, portion sizes, choosing high fiber CHO sources, -- Recommendation for 30-45 grams carb per meal. Trial at HS snack to add 15 grams carb snack w/ protein and/or healthy fat to see if assist with overnight/morning BG reading. Space last snack 2 hours before HS. -- Recommendation for 20-30 grams protein per meal and 7 grams protein per snack. -- Portion sizes for commonly eaten carbohydrate foods -- Food label reading for serving size, total fat, total carbohydrate, fiber, and protein. -- Benefits of fiber in foods and effect on satiety and blood glucose regulation- discussed sourcesof high fiber foods. -- Importance of including lean protein sources at each meal and snack. -- Importance of including healthy fats such as olive oil, avocado, nuts and fish -- Using hands as portioning tools for carbohydrates, protein, and NS vegetables. --food label reading for serving size, total carbohydrate, fiber, total sugar, added sugar, and protein. --avoiding regular soda, juice, and fried foods --discussed mindful eating practices and hunger/fullness scale --reviewed a sample carb controlled Mediterranean style menu --Encouraged increased water/fluid consumption to promote healthy hydration to decrease food cravings- aim to consume water or SF beverages with goal 64 ounces per day. -- Provided and discussed free nutrition apps that can be useful on weight loss journey. -Medications: Reviewed- medication safety/timing, insulin storage, site selection/rotation, pen injection instruction, reviewed home DM meds, basal insulin, how to use a correction/sliding scale, prandial insulin, oral agents discussed: metformin , injectable insulin discussed: lispro (Humalog) and glargine U300 (Toujeo), and other agents discussed: Ozempic -Physical Activity: benefits of exercise, impact of exercise on BG, types of exercise, and exercisesafety - Discussed exercise physiologists available to patient to assist with helping pt establish exercise routine. Recommended pt reach out to their referring provider for a referral endocrinology manager intel services. -Problem Solving: hypoglycemia s/sx/tx, hyperglycemia s/sx/tx, and sick day rules Education Materials: Healthy You: Survival Skills NovoNordisk: Planning Healthy Meals Thriving with the Mediterranean Lifestyle Nutrition Monitoring & Evaluation: Dietitian Goals: Maintained OR Improved Blood Glucose Control by next A1C test Weight Reduction of 5-10% within 6 months Criteria: Blood Glucose Values, A1C, and Weight Patient Stated Goals at today's visit: Always pair CHO with protein and/or healthy fat. Aim to consume 3-4 ounces protein with meals (use palm as tool). Adherence Potential to Goals: Good Need for Follow up: TBD Referred by: Amada Gandhi* Ludy Oreilly RD Consult Billing Type/Increments: Initial Assessment/15 minutes, 4 increment(s), 60 minutes Start time: 12:45 End time: 14:12 My final report will be communicated back to the requesting physician by way of shared medical record. 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] Order(s):ENDOCRINOLOGY DIETITIAN VISIT (MNT) [[id number]] Order #: [id number]: 4 During your visit today, we recorded the following information about you: Allergies As of Date: 04/09/2024 Noted Allergy Reaction PENICILLIN G 04/18/2013 7 - Swelling REQUIP (ROPINIROLE) 04/18/2013 14 - Other: See Comments Comments: seizures ENBREL (ETANERCEPT) 12/19/2023 14 - Other: See Comments Comments: Palpitations JARDIANCE (EMPAGLIFLOZIN) 01/02/2020 14 - Other: See Comments Comments: Yeast infections WELLBUTRIN (BUPROPION HCL) 08/08/2019 2 - Rash Date Reviewed: 02/17/2024 Reviewed by: Marleni Coronel, RN - Fully Assessed Prescriptions as of 04/09/2024 - atorvastatin (LIPITOR) 40 mg tablet Take 1 tablet by mouth once daily. - insulin lispro (HUMALOG KWIKPEN INSULIN) 100 unit/mL Inject 22 Units subcutaneously three times a day before meals. Inject 21 units with meals plus SS#2 (2 units for every 50 over 150) (1 units for every 10 grams of carbs). Limit of 75 units daily - amLODIPine (NORVASC) 5 mg tablet Take 1 tablet by mouth once daily. - atenolol (TENORMIN) 50 mg tablet Take 1 tablet by mouth once daily. - fenofibrate nanocrystallized (TRICOR) 145 mg tablet Take 1 tablet by mouth once daily. - montelukast (SINGULAIR) 10 mg tablet Take 1 tablet by mouth daily at bedtime. - omeprazole (PRILOSEC) 40 mg capsule Take 1 capsule by mouth once daily. - Blood-Glucose Transmitter (DEXCOM G6 TRANSMITTER) catracho 1 Each continuous. - folic acid 1 mg tablet Take 3 mg by mouth once daily. - hydrOXYchloroQUINE (PLAQUENIL) 200 mg tablet Take 2 tablets by mouth once daily. - methotrexate 2.5 mg tablet Take 17.5 mg by mouth every Tuesday. - nabumetone (RELAFEN) 750 mg tablet Take 750 mg by mouth two times a day. - ORENCIA CLICKJECT 125 mg/mL auto-injector Inject 1 mL subcutaneously one time a week. - Insulin Bradford, Disposable, (BD ULTRAFINE III MINI PEN) 31 gauge x 3/16 Use with insulin injection 2 times daily - Blood-Glucose Sensor (DEXCOM G6 SENSOR) catracho Change sensor every 10 days. USE FOR CONTINUOUS GLUCOSE MONITORING. MULTIPLE INSULIN INJECTIONS. E11.9 - gabapentin (NEURONTIN) 100 mg capsule Take 1 capsule by mouth two times a day for 180 days. Take one in AM and one in afternoon. Take the 300mg before bed. - gabapentin (NEURONTIN) 300 mg capsule Take 1 capsule by mouth daily at bedtime for 180 days. - metFORMIN (GLUCOPHAGE) 1,000 mg tablet Take 1 tablet by mouth two times a day with meals. - losartan (COZAAR) 100 mg tablet TAKE ONE-HALF TABLET BY MOUTH ONCE DAILY - insulin glargine U-300 conc (TOUJEO MAX U-300 SOLOSTAR) 300 unit/mL (3 mL) inpn Inject subcutaneously 112 units daily - semaglutide (OZEMPIC) 0.25 mg or 0.5 mg (2 mg/3 mL) pen Inject 0.5 mg subcutaneously one time a week. - venlafaxine ER (EFFEXOR XR) 150 mg 24 hr capsule Take 1 capsule by mouth once daily. - venlafaxine ER (EFFEXOR XR) 75 mg 24 hr capsule Take 1 capsule by mouth once daily. - ferrous sulfate 325 mg (65 mg iron) tablet Take 1 tablet by mouth every other day. - pramipexole (MIRAPEX) 0.125 mg tablet take 1 tablet by mouth every evening if needed for RESTELESS LEGS - pramipexole (MIRAPEX) 0.5 mg tablet Take 1 tablet by mouth once daily. - naproxen (NAPROSYN) 500 mg tablet Take 1 tablet by mouth two times a day as needed. - Blood-Glucose Transmitter (DEXCOM G6 TRANSMITTER) catracho Change transmitter every 3 months - continuous glucose monitor, multiple insulin injections E-11.9 - hydrOXYzine HCl (ATARAX) 25 mg tablet Take 1 tablet by mouth three times a day as needed for anxiety. - blood sugar diagnostic (ONETOUCH ULTRA TEST) test strip Test blood sugar(s) 4 times daily. Dx: Type 2 DM - Controlled E11.9 , Insulin: Yes - Lancets (ONETOUCH ULTRASOFT LANCETS) lancets Test blood sugar(s) 4 times daily. Dx: Type 2 DM - Controlled E11.9 , Insulin: Yes - famotidine (PEPCID) 20 mg tablet Take 1 tablet by mouth at bedtime as needed. - glucagon (GLUCAGON EMERGENCY KIT, HUMAN,) 1 mg injection Inject (1)one mg for insulin shock. - Blood-Glucose Meter,Continuous (DEXCOM G6 NAV[employer] SCI[employer] TEACHER) misc 1 Each continuous. - ondansetron orally disintegrating (ZOFRAN ODT) 4 mg disintegrating tablet Take 1 tablet by mouth every 6 hours as needed for nausea/vomiting. - celecoxib (CELEBREX) 200 mg capsule Take 200 mg by mouth every morning. - diclofenac (VOLTAREN) 1 % topical gel Apply 2 g to affected area four times daily. - triamcinolone acetonide (NASACORT AQ) 55 mcg nasal inhaler Use 2 Sprays in the nose once jarred (more content not included)...[facility]01-13-2025 NoteHNO ID: [id number] Author: LUDY OREILLY RD Service: ? Author Type: Registered Dietitian Type: Progress Notes Filed: 04/09/2024 14:22 Note Text: [facility] Medical Nutrition Therapy Visit Type: In-Person (Face to Face): Patient states reason for visit: MAKAYLA Management Initial DEMOGRAPHICS: Co-Morbidities: PAST MEDICAL HISTORY Diagnosis Date De Quervain's tenosynovitis, bilateral Depression with anxiety Diabetes (HCC) Fibromyalgia Hypercholesterolemia Hypertension IBS (irritable bowel syndrome) Raynaud's disease Restless legs syndrome (RLS) Activity: Do you regularly exercise? No structured exercise r/t RA. - Cleaning the house, organizing, or walking throughout the day. - >2K steps per day Symptoms: Patient's symptoms are as follows: Hyperglycemia How many hours of sleep on average? 7-8 hours, interrupted - To bed: 10P; Wake up: 5-6A - Relates difficulty staying asleep d/t restless feet, heart palpitations (has upcoming appointment to address), and Dexcom sensor for high readings. Diet History: Breakfast (7-8A): Bagel w/ egg and uriostegui (2 pieces) Lunch (11A-12P): salad w/ tuna and tomatoes with light luxembourger dressing, OR Yogurt (not serbian), OR Leftovers Dinner (5P): Liver and onions w/ mashed potatoes and corn, OR Stirfry w/ chicken or beef/stirfry vegetables/rice, OR Spaghetti (meat) and salad w/ occasional garlic bread, OR Freezer Meal (pizza/chicken nuggets) Snack (7P): dill 2 pickles and 4-5 cubes of cheese Fluids: Coffee (SF creamer), Water (3, >/=24 ounces cup), Peak Tea (SF), Occasional Diet Pop Dining/eating out? Occasional, 2-3 x month Allergies: No Food Allergy Patient / Provider Comments: - Lorenzo, pt benjaminance present, for pt appointment. - Pt relates has gained 20 lbs over the past year- pt attributes wt gain to insulin changes. Reports interest in nutrition information for weight management as well as MAKAYLA. - Current DM medications: Humalog (22 units before meal plus SS#2), Metformin, Toujeo (58 units twice daily), Ozempic (1.5 mg) - Has Dexcom G6 BGM. - Hypoglycemic events: pt reports 1 time recently (uncertain when occurred). Relates if BG drops to 39-40 mg/dl will feel confusion, shakiness. However relates their have been times where BG is in low 40's and not symptomatic. - Hyperglycemic events: Relates if BG goes high may experience fatigue or blurred vision. However, states times of BG going to 400 mg/dl w/ no symptoms indicating rise. - Initial DM dx: 2009 w/ T2DM, diagnoised w/ MAKAYLA in 2022 after antibodies found on labs - Recent A1C 8.2% 02/2024 - Hx of joint pain r/t RA. - Relates has nodules forming in abdomen. Reviewed sites for injections and pt plans to discuss with Dr. Mahajan at next appointment as pt reports Dr. Mahajan and pt considering starting pt on insulin pump. Medications: Current Outpatient Medications Medication Sig atorvastatin (LIPITOR) 40 mg tablet Take 1 tablet by mouth once daily. insulin lispro (HUMALOG KWIKPEN INSULIN) 100 unit/mL Inject 22 Units subcutaneously three times a day before meals. Inject 21 units with meals plus SS#2 (2 units for every 50 over 150) (1 units for every 10 grams of carbs). Limit of 75 units daily amLODIPine (NORVASC) 5 mg tablet Take 1 tablet by mouth once daily. atenolol (TENORMIN) 50 mg tablet Take 1 tablet by mouth once daily. fenofibrate nanocrystallized (TRICOR) 145 mg tablet Take 1 tablet by mouth once daily. montelukast (SINGULAIR) 10 mg tablet Take 1 tablet by mouth daily at bedtime. omeprazole (PRILOSEC) 40 mg capsule Take 1 capsule by mouth once daily. Blood-Glucose Transmitter (DEXCOM G6 TRANSMITTER) catracho 1 Each continuous. folic acid 1 mg tablet Take 3 mg by mouth once daily. hydrOXYchloroQUINE (PLAQUENIL) 200 mg tablet Take 2 tablets by mouth once daily. methotrexate 2.5 mg tablet Take 17.5 mg by mouth every Tuesday. nabumetone (RELAFEN) 750 mg tablet Take 750 mg by mouth two times a day. ORENCIA CLICKJECT 125 mg/mL auto-injector Inject 1 mL subcutaneously one time a week. (Patient not taking: Reported on 02/17/2024) Insulin Bradford, Disposable, (BD ULTRAFINE III MINI PEN) 31 gauge x 3/16 Use with insulin injection 2 times daily Blood-Glucose Sensor (DEXCOM G6 SENSOR) catracho Change sensor every 10 days. USE FOR CONTINUOUS GLUCOSE MONITORING. MULTIPLE INSULIN INJECTIONS. E11.9 gabapentin (NEURONTIN) 100 mg capsule Take 1 capsule by mouth two times a day for 180 days. Take one in AM and one in afternoon. Take the 300mg before bed. gabapentin (NEURONTIN) 300 mg capsule Take 1 capsule by mouth daily at bedtime for 180 days. metFORMIN (GLUCOPHAGE) 1,000 mg tablet Take 1 tablet by mouth two times a day with meals. losartan (COZAAR) 100 mg tablet TAKE ONE-HALF TABLET BY MOUTH ONCE DAILY (Patient taking differently: Take 50 mg by mouth once daily.) insulin glargine U-300 conc (TOUJEO MAX U-300 SOLOSTAR) 300 unit/mL (3 mL) (more content not included)...[place] [id number] Telephone encounter Note* Telephone Encounter - Laila Caraballo RN - 03/30/2024 12:50 PM EST Medication: nabumetone 750mg bid Refills: 02/14/24 60 + 1 [place] Medication: hcq 200mg 2 tab qd Refills: 02/14/24 60 + 1 [place] LARA: 02/10/24 lucita/ Continue lab monitoring every 4 to 6 months will try scaling back nabumetoneand hydroxychloroquine slightly if the new biologic is effective 02/14/24 [place] TE/ new rx for orencia sent NOV: 06/13/24 Labs: 03/14/24 another provider Eye exam: 06/01/23 under media/ WNL Pended 30 days + 2 refills [id number] Miscellaneous Notes* Telephone Encounter - Laila Caraballo RN - 03/30/2024 12:50 PM EST Medication: nabumetone 750mg bid Refills: 02/14/24 60 + 1 [place] Medication: hcq 200mg 2 tab qd Refills: 02/14/24 60 + 1 lucita LARA: 02/10/24 [place]/ Continue lab monitoring every 4 to 6 months will try scaling back nabumetoneand hydroxychloroquine slightly if the new biologic is effective 02/14/24 [place] TE/ new rx for orencia sent NOV: 06/13/24 Labs: 03/14/24 another provider Eye exam: 06/01/23 under media/ WNL Pended 30 days + 2 refills to next appt documented in this [facility]12-20-2024 Telephone encounter Note* Telephone Encounter - Destiney Briceno MA - 03/16/2024 12:50 PM EST Patient notified, has endocrinology appointment in March. [facility]12-20-2024 Miscellaneous Notes* Telephone Encounter - Destiney Briceno MA - 03/16/2024 12:50 PM EST Patient notified, has endocrinology appointment in March. * Telephone Encounter - Gela Medina APRN.CNP - 03/16/2024 12:37 PM EST I have increased her atorvastatin and we will recheck white blood count in 2 weeks. Follow up for any sign of infection or concern. Her HgbA1c is also uncontrolled. She increased her insulin in the last 4 weeks so hopefully that is helping. 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 Thank you Gela Medina APRN.HAYLEE * Telephone Encounter - Anjelica Morales RN - 03/16/2024 10:56 AM EST Patient calls back and states that she take Atorvastatin every single day since her pills are packaged. Patient denies being sick or taking steroids. Anjelica Morales RN * Telephone Encounter - Destiney Briceno MA - 03/15/2024 8:51 AM EST Left message for return call. * Telephone Encounter - Gela Medina APRN.CNP - 03/15/2024 7:55 AM EST Has she been taking her atorvastatin? If so, we should increase the dose. Also has she been ill or on any steroids recently? Thank you Gela Medina APRN.HAYLEE documented [facility] Telephone encounter Note * Telephone Encounter - Gela Medina APRN.HAYLEE - 03/16/2024 12:37 PM EST I have increased her atorvastatin and we will recheck white blood count in 2 weeks. Follow up for any sign of infection or concern. Her HgbA1c is also uncontrolled. She increased her insulin in the last 4 weeks so hopefully that is helping. 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 Thank you Gela Medina APRN.AERIAL PHOTOGRAMMETRIST [facility]12-20-2024 Telephone encounter Note* Telephone Encounter - Anjelica Morales RN - 03/16/2024 10:56 AM EST Patient calls back and states that she take Atorvastatin every single day since her pills are packaged. Patient denies being sick or taking steroids. Anjelica Morales RN [facility]12-19-2024 Telephone encounter Note* Telephone Encounter - Marleni Coronel RN - 03/15/2024 1:05 PM EST Gela Medina CNP sent refill on 03/12/2024. Closing encounter. Marleni Coronel RN March 15, 2024 1:05 PM [facility]12-19-2024 Miscellaneous Notes* Telephone Encounter - Marleni Coronel RN - 03/15/2024 1:05 PM EST Gela Medina CNP sent refill on 03/12/2024. Closing encounter. Marleni Coronel RN March 15, 2024 1:05 PM * Telephone Encounter - Wanda Cerrato MA - 03/08/2024 11:51 AM EST Pt needs rx today. She is completely out. Problem with the refills from [facility] being cancelled apparently. [place] as pended. Wanda Cerrato MA * Telephone Encounter - Noelle Craig LPN - 03/07/2024 8:18 AM EST Patient phones requesting refills as follows: Patient is out of Humalog Requested Prescriptions Pending Prescriptions Disp Refills insulin lispro (HUMALOG KWIKPEN INSULIN) 100 unit/mL 5 Sig: Inject 21 units with meals plus SS#2 (2 units for every 50 over 150) (1 units for every 10 grams of carbs) Please review and advise. Noelle Craig LPN documented in this encounterProm[facility]12-[facility]24 Telephone encounter Note * Telephone Encounter - Destiney Briceno MA - 03/15/2024 8:51 AM EST Left message for return call. [facility]12-19-2024 Telephone encounter Note* Telephone Encounter - Gela Medina APRN.CNP - 03/15/2024 7:55 AM EST Has she been taking her atorvastatin? If so, we should increase the dose. Also has she been ill or on any steroids recently? Thank you Gela Medina APRN.CNP [facility]12-16-2024 Telephone encounter Note* Telephone Encounter - Destiney Briceno MA - 03/12/2024 9:24 AM EST Referral faxed to [facility]. [facility]12-16-2024 Miscellaneous Notes* Telephone Encounter - Destiney Briceno MA - 03/12/2024 9:24 AM EST Referral faxed to [facility]. * Telephone Encounter - Gela Medina APRN.CNP - 03/12/2024 9:13 AM EST Please sent cardiology request to [facility] then update patient with this so she can callfor an appointment. Thank you Gela Medina APRN.CNP documented in this encounterProm[facility]12-[facility]-2024 Telephone encounter Note * Telephone Encounter - Gela Medina APRN.CNP - 03/12/2024 9:13 AM EST Please sent cardiology request to [facility] then update patient with this so she can callfor an appointment. Thank you Gela Medina APRN.CNP [facility]12-12-2024 Telephone encounter Note* Telephone Encounter - Wanda Cerrato MA - 03/08/2024 11:51 AM EST Pt needs rx today. She is completely out. Problem with the refills from [facility] being cancelled apparently. [place] as pended. Wanda Cerrato MA [facility]12-11-2024 Telephone encounter Note* Telephone Encounter - Noelle Craig LPN - 03/07/2024 8:18 AM EST Patient phones requesting refills as follows: Patient is out of Humalog Requested Prescriptions Pending Prescriptions Disp Refills insulin lispro (HUMALOG KWIKPEN INSULIN) 100 unit/mL 5 Sig: Inject 21 units with meals plus SS#2 (2 units for every 50 over 150) (1 units for every 10 grams of carbs) Please review and advise. Noelle Craig LPN [facility]12-10-2024 Telephone encounter Note* Telephone Encounter - Odilon Barber MD - 03/06/2024 8:04 AM EST Please advise pt - it may be that she is having an upper respiratory infection and would temporarily hold orencia if she has a fever or productive cough. Would give the orencia 2-3 months total to see how it does for arthritis before changing it, but I can look for something different if she reallydoesn't want to take the orencia. [id number] Miscellaneous Notes* Telephone Encounter - Odilon Barber MD - 03/06/2024 8:04 AM EST Please advise pt - it may be that she is having an upper respiratory infection and would temporarily hold orencia if she has a fever or productive cough. Would give the orencia 2-3 months total to see how it does for arthritis before changing it, but I can look for something different if she reallydoesn't want to take the orencia. * Telephone Encounter - Liyah Meyer RN - 03/05/2024 9:04 AM EST S: Patient spoke with [facility] nurse regarding medication problem B: Onset of symptoms/concern 01/30/24 A: Patient states they took 2nd dose of Orencia on 02/24/24. States on Tuesday they noted a coughwith some mild wheezing and an airy feeling in chest. States took 3rd dose of Orencia on 03/02/24. States cough worse since taking 3rd dose. States has chronic rhinorrhea and sinus issues which they attribute to allergies. Denies rash, denies swelling of tongue, face or lips, denies fever, deniesshortness of breath, denies chest pain. R: Please call patient [phone] to advise if they should continue Orencia due to possible adverse reaction. Patient understands care advice that a message will be sent to office for review and follow-up. No further needs at this time. Patient instructed to call back with new or worsening symptoms. Reason for Disposition Caller has URGENT medicine question about med that PCP or specialist prescribed and triager unable to answer question Protocols used: Medication Question [id number] documented in this [facility]12-09-2024 Telephone encounter Note* Telephone Encounter - Cathy Dunn MA - 03/05/2024 2:10 PM EST Phoned patient as requested. Patient understands to increase Toujeo to 58 units 2 times daily. Patient reports no other questions. Cathy Dunn MA [facility]12-09-2024 Miscellaneous Notes* Telephone Encounter - Cathy Dunn MA - 03/05/2024 2:10 PM EST Phoned patient as requested. Patient understands to increase Toujeo to 58 units 2 times daily. Patient reports no other questions. Cathy Dunn MA * Telephone Encounter - Amada Gandhi MD - 03/05/2024 1:10 PM EST Please advise increasing Toujeo to 58 Units twice daily (Currently on 56 units BID) * Telephone Encounter - Cathy Dunn MA - 03/02/2024 8:25 AM EST Images from the original note were not included. Dexcom information down loaded * Telephone Encounter - Malathi Young - 03/02/2024 8:05 AM EST Patient called said she has been going through her insulin faster than she should because her sugaris not stable patient is requesting more units and or more pens Please advise documented in this encounterProm[facility]12-[facility] Telephone encounter Note * Telephone Encounter - Amada Gandhi MD - 03/05/2024 1:10 PM EST Please advise increasing Toujeo to 58 Units twice daily (Currently on 56 units BID) [facility]12-09-2024 Telephone encounter Note* Telephone Encounter - Liyah Meyer RN - 03/05/2024 9:04 AM EST S: Patient spoke with [facility] nurse regarding medication problem B: Onset of symptoms/concern 01/30/24 A: Patient states they took 2nd dose of Orencia on 02/24/24. States on Tuesday they noted a coughwith some mild wheezing and an airy feeling in chest. States took 3rd dose of Orencia on 03/02/24. States cough worse since taking 3rd dose. States has chronic rhinorrhea and sinus issues which they attribute to allergies. Denies rash, denies swelling of tongue, face or lips, denies fever, deniesshortness of breath, denies chest pain. R: Please call patient [phone] to advise if they should continue Orencia due to possible adverse reaction. Patient understands care advice that a message will be sent to office for review and follow-up. No further needs at this time. Patient instructed to call back with new or worsening symptoms. Reason for Disposition Caller has URGENT medicine question about med that PCP or specialist prescribed and triager unable to answer question Protocols used: Medication Question [id number] [id number] Telephone encounter Note* Telephone Encounter - Cathy Dunn MA - 03/02/2024 8:25 AM EST Images from the original note were not included. Dexcom information down loaded [facility]12-06-2024 Telephone encounter Note* Telephone Encounter - Malathi Young - 03/02/2024 8:05 AM EST Patient called said she has been going through her insulin faster than she should because her sugaris not stable patient is requesting more units and or more pens Please advise [facility] Work Phone: [phone]) 818-109312-04-2024 Telephone encounter Note* Telephone Encounter - Liyah Willett RN - 02/29/2024 10:26 AM EST The patient has been identified by name and date of : Yes Caregiver verified no other encounters exist for this prescription request: Yes Caregiver confirmed with patient/requestor that no other refills are due, in the near future, with this provider at this time: Yes The last office visit in the department: 02/15/2024 Does the patient have a future office visit with this provider/department: No Left detailed msg on pt's cell phone to schedule her 3 month follow up appt in Apr 2024. Also sent a [employer] msg reminder. Requested Prescriptions Pending Prescriptions Disp Refills amLODIPine (NORVASC) 5 mg tablet 90 tablet 3 Sig: Take 1 tablet by mouth once daily. atenolol (TENORMIN) 50 mg tablet 90 tablet 3 Sig: Take 1 tablet by mouth once daily. atorvastatin (LIPITOR) 20 mg tablet 90 tablet 3 Sig: Take 1 tablet by mouth once daily. fenofibrate nanocrystallized (TRICOR) 145 mg tablet 90 tablet 3 Sig: Take 1 tablet by mouth once daily. montelukast (SINGULAIR) 10 mg tablet 90 tablet 3 Sig: Take 1 tablet by mouth daily at bedtime. omeprazole (PRILOSEC) 40 mg capsule 90 capsule 1 Sig: Take 1 capsule by mouth once daily. Liyah Willett RN February 29, 2024 10:26 AM [facility]12-04-2024 Miscellaneous Notes* Telephone Encounter - Liyah Willett RN - 02/29/2024 10:26 AM EST The patient has been identified by name and date of : Yes Caregiver verified no other encounters exist for this prescription request: Yes Caregiver confirmed with patient/requestor that no other refills are due, in the near future, with this provider at this time: Yes The last office visit in the department: 02/15/2024 Does the patient have a future office visit with this provider/department: No Left detailed msg on pt's cell phone to schedule her 3 month follow up appt in Apr 2024. Also sent a [employer] msg reminder. Requested Prescriptions Pending Prescriptions Disp Refills amLODIPine (NORVASC) 5 mg tablet 90 tablet 3 Sig: Take 1 tablet by mouth once daily. atenolol (TENORMIN) 50 mg tablet 90 tablet 3 Sig: Take 1 tablet by mouth once daily. atorvastatin (LIPITOR) 20 mg tablet 90 tablet 3 Sig: Take 1 tablet by mouth once daily. fenofibrate nanocrystallized (TRICOR) 145 mg tablet 90 tablet 3 Sig: Take 1 tablet by mouth once daily. montelukast (SINGULAIR) 10 mg tablet 90 tablet 3 Sig: Take 1 tablet by mouth daily at bedtime. omeprazole (PRILOSEC) 40 mg capsule 90 capsule 1 Sig: Take 1 capsule by mouth once daily. Liyah Willett RN February 29, 2024 10:26 AM documented in this encounterProm[facility]11-[facility]-2024 Telephone encounter Note * Telephone Encounter - Anjelica Morales RN - 02/20/2024 11:32 AM EST The patient has been identified by name and date of : Yes Caregiver verified no other encounters exist for this prescription request: Yes Caregiver confirmed with patient/requestor that no other refills are due, in the near future, with this provider at this time: Yes The last office visit in the department: 02/15/2024 Does the patient have a future office visit with this provider/department: No Visit date not found Requested Prescriptions Pending Prescriptions Disp Refills Blood-Glucose Transmitter (DEXCOM G6 TRANSMITTER) catracho 1 Each 0 Si Each continuous. Anjelica Morales RN February 20, 2024 11:32 AM [facility]11-25-2024 Miscellaneous Notes* Telephone Encounter - Anjelica Morales RN - 02/20/2024 11:32 AM EST The patient has been identified by name and date of : Yes Caregiver verified no other encounters exist for this prescription request: Yes Caregiver confirmed with patient/requestor that no other refills are due, in the near future, with this provider at this time: Yes The last office visit in the department: 02/15/2024 Does the patient have a future office visit with this provider/department: No Visit date not found Requested Prescriptions Pending Prescriptions Disp Refills Blood-Glucose Transmitter (DEXCOM G6 TRANSMITTER) catracho 1 Each 0 Si Each continuous. Anjelica Morales RN February 20, 2024 11:32 AM documented in this encounterPromed[facility]11-[facility]24 Telephone encounter Note * Telephone Encounter - Marleni Coronel RN - 02/17/2024 1:27 PM EST 30-day Dexcom Clarity report pulled into today's OV encounter. Dr. Gandhi notified. Marleni Coronel RN February 17, 2024 1:29 PM [facility]11-22-2024 Miscellaneous Notes* Telephone Encounter - Marleni Coronel RN - 02/17/2024 1:27 PM EST 30-day Dexcom Clarity report pulled into today's OV encounter. Dr. Gandhi notified. Marleni Coronel RN February 17, 2024 1:29 PM * Telephone Encounter - Oliva Beatty - 02/17/2024 12:58 PM EST Patient is calling to report she got her clarity up and running for her dex com and can check her report. documented in this encounterPromedica [facility]11-22-2024 NoteHNO ID: [id number] Author: MARLENI CORONEL RN Service: ? Author Type: Registered Nurse Type: Progress Notes Filed: 02/17/2024 22:44 Note Text:[facility]11-22-2024 History of Present illness Narrative* Marleni Coronel RN - 02/17/2024 1:25 PM EST Images from the original note were not included. * Amada Gandhi MD - 02/17/2024 12:04 PM EST [facility] Follow up note Referred by: Gela medina APRN.HAYLEE Chief complaint: MAKAYLA History of present illness: This is a 53 year old female with MAKAYLA, HTN, HLD, RA, Reynaud's, IBS who is presenting for follow up evaluation and management of diabetes. She is accompanied by her fianc today She was initially diagnosed in 2009 as Type 2, and then diagnosed as MAKAYLA in 03/2022 after antibodies on labs by Katharine Dejesus APRN. HAYLEE who she was seeing so far since Mar 2022 via [facility] She reports she has not been on steroids for RA or lupus as she knows they can have bad effects on her sugars Denies any micro or macrovascular complications from diabetes Complications: Cardiovascular -- Yes HTN, HLD Statin Use -- Yes Retinopathy -- No Last AZALEA/Retina Eval: May 2023 Nephropathy -- Yes MANDY/ARB Use -- Yes Polyneuropathy -- No Foot Exam: not sure Obesity -- Yes Other -- No Symptoms/concerns today She always is feeling thirsty Reports she has done well on enbrel until she has side effect of Afib leading to discontinuation. Reports of persistent joint pains. She is waiting initiation of new medication for RA, which is given weekly . Diabetes Medications -Current regimen: Humalog 22 units with sliding scale starting at 150 mg/dl Toujeo 112 units daily in am Ozempic 1 mg weekly- could not tolerate- went back to 0.5 mg weekly, now again at 1 mg weekly -Misses doses: None She is rotating injection sites but mostly takes in abdomen -Previously Used DM Meds Victoza Metformin . Blood sugars : Patient did not bring her reader, neither has accepted sharing data with clinic- link sent- but data could be downloaded after she has left clinic Summary of Personal CGM Findings: Jan 19, 2024 to Feb 17, 2024 Type of CGM: Dexcom G7 1) CGM recording is adequate for interpretation. Worn 100% of time. 2) Average glucose is 187 mg/dL. BG range/St. Dev: 37 mg/dL 3) 41% time in range 70-180 mg/dL 4) Total frequency of hypoglycemia: 0% with BG < 70 - Hypoglycemia patterns: 0 - Nocturnal hypoglycemia was NOT noted 5) Hyperglycemic episodes 59% with BG > 180 - Hyperglycemia patterns: throughout day, small postprandial spike for breakfast, lunch and dinner Interpretation: could not be done when patient is in, but she is advised to take lispro atleast 30 mins in advance, and choose foods with low GI . Hypoglycemia -Hypoglycemic episodes: none in the last few months -Frequency and timing of hypoglycemia: n/a -Hypoglycemia awareness: yes, feels diaphoretic, fogginess, shakiness . Lifestyle -Exercise: no -Diet: 3 meals a day Tries to eat healthy, watches diet closely She has seen diabetes education initially- does not prefer using carb counting - estimates requiredinsulin dosing with portion size . Blood pressure -Today BP: 142/82 -Current antihypertensive therapy: Losartan 100 mg once daily, amlodipine 5 mg once daily, [id number] mg once daily . Lipids -Last lipid panel: 02/2023 -Currently on Statin therapy: Losartan 20 mg once daily -Statin associated side effects: Tolerating well ROS: As per HPI Past Medical History PAST MEDICAL HISTORY Diagnosis Date De Quervain's tenosynovitis, bilateral Depression with anxiety Diabetes (HCC) Fibromyalgia Hypercholesterolemia Hypertension IBS (irritable bowel syndrome) Raynaud's disease Restless legs syndrome (RLS) Past Surgical History PAST SURGICAL HISTORY Procedure Laterality Date CONE OF CERVIX LOOPELEC EXCIS EXTRACTION, ERUPTED TOOTH OR EXPOSED ROOT (ELEVATION AND/OR FORCEPS REMOVAL) [place] teeth x 4 HYSTERECTOMY HX precervical cancer, removed cervix KNEE SURGERY HX 4x right and left x4 Family History FAMILY HISTORY Problem Relation Age of Onset Hypertension Mother Breast Cancer Mother other (raynaud) Mother Parkinson s Disease Father Hyperlipidemia Father Arthritis Father Breast Cancer Maternal Grandmother other (Thrombosis) Maternal Grandfather COPD Paternal Grandmother Coronary Artery Disease Paternal Grandmother Coronary Artery Disease Paternal Grandfather other (Brock Disease) Maternal Aunt Cervical Cancer Paternal Aunt Heart Paternal Aunt Factor 5 Leiden Paternal cousin Social History Social History Tobacco Use Smoking status: Every Day Current packs/day: 0.50 Average packs/day: 0.5 packs/day for 31.0 years (15.5 ttl pk-yrs) Types: Cigarettes Smokeless tobacco: Never Vaping Use Vaping status: Never Used Substance Use Topics Alcohol use: No Drug use: No Allergies ALLERGIES Allergen Reactions Penicillin G Swelling Requip [Ropinirole] Other: See Comments seizures Enbrel [Etanercept] Other: See Comments Palpitations Jardiance [Empaglif* Other: See Comments Yeast infections Wellbutrin [Bupropi* Rash Current Medications Current Outpatient Medications Medication Sig Dispense Refill folic acid 1 mg tablet Take 3 mg by mouth once daily. hydrOXYchloroQUINE (PLAQUENIL) 200 mg tablet Take 2 tablets by mouth once daily. methotrexate 2.5 mg tablet Take 17.5 mg by mouth. nabumetone (RELAFEN) 750 mg tablet Take 750 mg by mouth two times a day. ORENCIA CLICKJECT 125 mg/mL auto-injector Inject 1 mL subcutaneously one time a week. Blood-Glucose Sensor ([employer] G6 SENSOR) catracho Change sensor every 10 days. USE FOR CONTINUOUS GLUCOSE MONITORING. MULTIPLE INSULIN INJECTIONS. E11.9 9 Each 3 gabapentin (NEURONTIN) 100 mg capsule Take 1 capsule by mouth two times a day for 180 days. Take one in AM and one in afternoon. Take the 300mg before bed. 180 capsule 1 gabapentin (NEURONTIN) 300 mg capsule Take 1 capsule by mouth daily at bedtime for 180 days. 90 capsule 1 metFORMIN (GLUCOPHAGE) 1,000 mg tablet Take 1 tablet by mouth two times a day with meals. 180 tablet 3 losartan (COZAAR) 100 mg tablet TAKE ONE-HALF TABLET BY MOUTH ONCE DAILY 45 tablet 3 insulin lispro (HUMALOG KWIKPEN INSULIN) 100 unit/mL Inject 21 units with meals plus SS#2 (2 units for every 50 over 150) (1 units for every 10 grams of carbs) 0 insulin glargine U-300 conc (TOUJEO MAX U-300 SOLOSTAR) 300 unit/mL (3 mL) inpn Inject subcutaneously 112 units daily 45 mL 3 semaglutide (OZEMPIC) 0.25 mg or 0.5 mg (2 mg/3 mL) pen Inject 0.5 mg subcutaneously one time a week. 9 mL 3 venlafaxine ER (EFFEXOR XR) 150 mg 24 hr capsule Take 1 capsule by mouth once daily. 30 capsule 11 omeprazole (PRILOSEC) 40 mg capsule Take 1 capsule by mouth once daily. 90 capsule 1 venlafaxine ER (EFFEXOR XR) 75 mg 24 hr capsule Take 1 capsule by mouth once daily. 90 capsule 3 ferrous sulfate 325 mg (65 mg iron) tablet Take 1 tablet by mouth every other day. 45 tablet 3 pramipexole (MIRAPEX) 0.125 mg tablet take 1 tablet by mouth every evening if needed for RESTELESS LEGS 90 tablet 3 pramipexole (MIRAPEX) 0.5 mg tablet Take 1 tablet by mouth once daily. 90 tablet 1 naproxen (NAPROSYN) 500 mg tablet Take 1 tablet by mouth two times a day as needed. 60 tablet 0 Blood-Glucose Transmitter (DEXCOM G6 TRANSMITTER) catracho Change transmitter every 3 months - continuous glucose monitor, multiple insulin injections E-11.9 1 Each 3 Blood-Glucose Transmitter (DEXCOM G6 TRANSMITTER) catracho 1 Each continuous. 1 Each 0 hydrOXYzine HCl (ATARAX) 25 mg tablet Take 1 tablet by mouth three times a day as needed for anxiety. 30 tablet 1 blood sugar diagnostic (ONETOUCH ULTRA TEST) test strip Test blood sugar(s) 4 times daily. Dx: Type2 DM - Controlled E11.9 , Insulin: Yes 200 Strip 11 Lancets (ONETOUCH ULTRASOFT LANCETS) lancets Test blood sugar(s) 4 times daily. Dx: Type 2 DM - Controlled E11.9 , Insulin: Yes 200 Each 11 famotidine (PEPCID) 20 mg tablet Take 1 tablet by mouth at bedtime as needed. 30 tablet 1 montelukast (SINGULAIR) 10 mg tablet Take 1 tablet by mouth daily at bedtime. 90 tablet 3 amLODIPine (NORVASC) 5 mg tablet Take 1 tablet by mouth once daily. 90 tablet 3 atenolol (TENORMIN) 50 mg tablet Take 1 tablet by mouth once daily. 90 tablet 3 atorvastatin (LIPITOR) 20 mg tablet Take 1 tablet by mouth once daily. 90 tablet 3 fenofibrate nanocrystallized (TRICOR) 145 mg tablet Take 1 tablet by mouth once daily. 90 tablet 3 Insulin Bradford, Disposable, (BD ULTRAFINE III MINI PEN) 31 gauge x 3/16 Use with insulin injection 2 times daily 200 Each 3 glucagon (GLUCAGON EMERGENCY KIT, HUMAN,) 1 mg injection Inject (1)one mg for insulin shock. 2 Each1 Blood-Glucose Meter,Continuous (DEXCOM G6 [employer]ER) misc 1 Each continuous. 1 Each 0 ondansetron orally disintegrating (ZOFRAN ODT) 4 mg disintegrating tablet Take 1 tablet by mouth every 6 hours as needed for nausea/vomiting. 15 tablet 1 celecoxib (CELEBREX) 200 mg capsule Take 200 mg by mouth every morning. diclofenac (VOLTAREN) 1 % topical gel Apply 2 g to affected area four times daily. 50 g 3 triamcinolone acetonide (NASACORT AQ) 55 mcg nasal inhaler Use 2 Sprays in the nose once daily. aspirin, enteric coated (ASPIRIN, ENTERIC COATED) 81 mg EC tablet Take 1 tablet by mouth once daily. 30 tablet 1 No current facility-administered medications for this visit. Vitals: There were no vitals filed for this visit. Physical Exam GENERAL: Well nourished, obese, well hydrated, in no distress and oriented x 3 EYES: no thyroid eye signs, EOMI NECK: , no tenderness and adenopathy THYROID: Non-tender to palpable, no evidence of goiter, no nodules palpable LUNGS: Unlabored on room air HEART: regular rate and rhythm GI: abdomen is soft, nontender, Injections sites with lipodystrophy Mild stretch carson noted on abdominal examination. EXTREMITIES: no edema, monofilament testing within normal limits in bilateral feet NEURO: normal strength, no tremor OTHER: Acanthosis None Labs: Latest Ref Rng 01/06/2023 03/26/2023 04/07/2023 Protein, Total 6.3 - 8.0 g/dL 7.3 7.1 Albumin 3.9 - 4.9 g/dL 4.6 4.4 Calcium 8.5 - 10.2 mg/dL 10.7 (H) 11.0 (H) Bilirubin, Total 0.2 - 1.3 mg/dL 0.2 0.2 Alkaline Phosphatase 34 - 123 U/L 73 77 AST 13 - 35 U/L 16 21 ALT 7 - 38 U/L 17 18 Glucose 74 - 99 mg/dL 134 (H) 159 (H) BUN 7 - 21 mg/dL 19 13 Creatinine 0.58 - 0.96 mg/dL 0.78 0.77 Sodium 136 - 144 mmol/L 139 138 Potassium 3.7 - 5.1 mmol/L 4.8 4.7 Chloride 97 - 105 mmol/L 102 102 CO2 22 - 30 mmol/L 22 24 Anion Gap 9 - 18 mmol/L 15 12 eGFR >=60 mL/min/1.73m 91 92 WBC 3.70 - 11.00 k/uL 11.72 (H) RBC 3.90 - 5.20 m/uL 5.14 Hemoglobin 11.5 - 15.5 g/dL 14.6 Hematocrit 36.0 - 46.0 % 46.1 (H) MCV 80.0 - 100.0 fL 89.7 MCH 26.0 - 34.0 pg 28.4 MCHC 30.5 - 36.0 g/dL 31.7 RDW-CV 11.5 - 15.0 % 14.0 Platelet Count 150 - 400 k/uL 523 (H) MPV 9.0 - 12.7 fL 8.6 (L) Absolute nRBC <0.01 k/uL <0.01 Total Cholesterol, Nonfasting <200 mg/dL 150 Triglycerides, Nonfasting <150 mg/dL 226 (H) HDL Cholesterol, Nonfasting >39 mg/dL 39 (L) LDL Cholesterol, Nonfasting <100 mg/dL 66 Non HDL Cholesterol, Nonfasting <130 mg/dL 111 VLDL Cholesterol, Nonfasting <30 mg/dL 45 (H) Total Chol/HDL Ratio, Nonfasting <5.10 mg/dL 3.85 LDL/HDL Ratio, Nonfasting <2.54 mg/dL 1.69 Creatinine, Ur Random (UCRR) 20.0 - 300.0 mg/dL 136.0 Albumin, Urine Random mg/L 795.8 Albumin/Creat Ratio <30 mg/g 585 (H) Hemoglobin A1C 4.3 - 5.6 % 6.3 (H) 7.0 (H) Estimated Average Glucose mg/dL 134 154 Normalized Calcium 1.08 - 1.30 mmol/L 1.35 (H) Ionized Calcium 1.08 - 1.30 mmol/L 1.38 (H) PTH, Intact 15 - 65 pg/mL 23 TSH 0.270 - 4.200 mIU/L 1.100 Free T4 0.9 - 1.7 ng/dL 1.4 Vitamin B12 232 - 1,245 pg/mL 330 Legend: (H) High (L) Low Hba1c POC today 8.7% Assessment and Plan This is a 52 year old female patient with MAKAYLA. She also has a significant autoimmune history of rheumatoid arthritis, SLE MAKAYLA- within poor control: -A1c 8.7% today, worsened from previous despite increasing dose - possibly component of pain as well as inflammation causing unclear highs. She reports morning with sugar free us causing sugars to spike to 200s in the morning -eGFR 93 in 11/2023 -Current regimen: Toujeo U300 112 units daily in AM, Humalog 22 units with each meal along with correction scale starting at 150 mg/dL at 2:50 Ozempic 1 mg weekly Metformin 1000 mg twice daily Plan: - I discussed splitting Toujeo dose to twice daily - 56 units twice daily She was advised to continue with Humalog doses as is, but to take atleast 30 mins before meal, as well as to choose foods with low GI I discussed on last visit that metformin might not be extremely effective for control of BG, but I discussed actions of the medication and she preferred to continue for weight loss and insulin sensitivity - Continue ozempic 1 mg weekly and metformin 1000 mg BID -Instructed on side effects of nausea, vomiting, abdominal pain/cramping, diarrhea, early satiety, decreased appetite, pancreatitis - Hypoglycemia protocol discussed- discussed Baqsimi as she was not sure if she will be able to useglucagon emergency kit when a low occurs-unfortunately Baqsimi is excluded from coverage by her insurance at this time -Continue Dexcom. Discussed about close checking blood sugars with fingersticks when Dexcom is showing a low but she does not have any symptoms. -Call if blood sugar consistently <80 mg/dl or >200 mg/dl -Lifestyle modifications (diet, exercise, and weight loss) have been discussed with the patient -labs ordered to be done before next visit # Hypertension -Today BP 148/78 - possibly component of pain as well -Currently antihypertensive regimen is losartan 100 mg once daily, amlodipine 5 mg once daily, atenolol 50 mg once daily, will control blood pressure -low salt diet discussed #Dyslipidemia -Last lipid panel was done in February 2023, LDL and total cholesterol levels within goal, elevatedtriglycerides to 226 mg/dL -Currently on atorvastatin 20 mg once daily -lipid panel ordered #Obesity Class II with serious comobidity -Diet and exercise discussed -On Ozempic 1 mg once weekly. She would like to continue metformin for weight loss as well, apart from blood sugar control - 1 mg DST was normal RTC in 2 to 3 months I have confirmed and edited as necessary, the past medical, surgical, family, and social history asobtained by others. I spent a total of 56 minutes on the date of the service which included preparing to see the patient, [id number] patient care, completing clinical documentation, obtaining and/or reviewing separately obtained history, performing a medically appropriate examination, counseling and educating the pat ient/family/caregiver, ordering medications, tests, or procedures, and independently interpreting results (not separately reported). Amada Gandhi MD Endocrinology Associate Staff [facility] [place] [phone] Some elements were copied from my last note on 06/07/23 and has been updated as appropriate today documented in this encounterPromedica [facility]11-22-2024 Telephone encounter Note * Telephone Encounter - Oliva Beatty - 02/17/2024 12:58 PM EST Patient is calling to report she got her clarity up and running for her dex com and can check her report. [facility]11-22-2024 Instructions* Patient Instructions* Amada Gandhi MD - 02/17/2024 12:28 PM EST Pleased split Toujeo dose to twice daily - that means 56 units twice daily Continue Humalog same dose for now Continue Ozempic Please use different sites for insulin shots/Ozempic- can use thighs and upper buttock for few weeks Labs to be done before next visit documented in this encounterPromedica Fostoria [facility]11-22-2024 NoteHNO ID: [id number] Author: AMADA GANDHI MD Service: ? Author Type: Physician Type: Progress Notes Filed: 02/17/2024 22:43 Note Text: [facility] Follow up note Referred by: Gela medina APRN.CNP Chief complaint: MAKAYLA History of present illness: This is a 53 year old female with MAKAYLA, HTN, HLD, RA, Reynaud's, IBS who is presenting for follow up evaluation and management of diabetes. She is accompanied by her fiance today She was initially diagnosed in 2009 as Type 2, and then diagnosed as MAKAYLA in 03/2022 after antibodies on labs by Katharine Dejesus APRN. CNP who she was seeing so far since Mar 2022 via [facility] She reports she has not been on steroids for RA or lupus as she knows they can have bad effects on her sugars Denies any micro or macrovascular complications from diabetes Complications: Cardiovascular -- Yes HTN, HLD Statin Use -- Yes Retinopathy -- No Last AZALEA/Retina Eval: May 2023 Nephropathy -- Yes MANDY/ARB Use -- Yes Polyneuropathy -- No Foot Exam: not sure Obesity -- Yes Other -- No Symptoms/concerns today She always is feeling thirsty Reports she has done well on enbrel until she has side effect of Afib leading to discontinuation. Reports of persistent joint pains. She is waiting initiation of new medication for RA, which is given weekly . Diabetes Medications -Current regimen: Humalog 22 units with sliding scale starting at 150 mg/dl Toujeo 112 units daily in am Ozempic 1 mg weekly- could not tolerate- went back to 0.5 mg weekly, now again at 1 mg weekly -Misses doses: None She is rotating injection sites but mostly takes in abdomen -Previously Used DM Meds Victoza Metformin . Blood sugars : Patient did not bring her reader, neither has accepted sharing data with clinic- link sent- but data could be downloaded after she has left clinic Summary of Personal CGM Findings: Jan 19, 2024 to Feb 17, 2024 Type of CGM: [employer] G7 1) CGM recording is adequate for interpretation. Worn 100% of time. 2) Average glucose is 187 mg/dL. BG range/St. Dev: 37 mg/dL 3) 41% time in range 70-180 mg/dL 4) Total frequency of hypoglycemia: 0% with BG < 70 - Hypoglycemia patterns: 0 - Nocturnal hypoglycemia was NOT noted 5) Hyperglycemic episodes 59% with BG > 180 - Hyperglycemia patterns: throughout day, small postprandial spike for breakfast, lunch and dinner Interpretation: could not be done when patient is in, but she is advised to take lispro atleast 30 mins in advance, and choose foods with low GI . Hypoglycemia -Hypoglycemic episodes: none in the last few months -Frequency and timing of hypoglycemia: n/a -Hypoglycemia awareness: yes, feels diaphoretic, fogginess, shakiness . Lifestyle -Exercise: no -Diet: 3 meals a day Tries to eat healthy, watches diet closely She has seen diabetes education initially- does not prefer using carb counting - estimates required insulin dosing with portion size . Blood pressure -Today BP: 142/82 -Current antihypertensive therapy: Losartan 100 mg once daily, amlodipine 5 mg once daily, atenolol 50 mg once daily . Lipids -Last lipid panel: 02/2023 -Currently on Statin therapy: Losartan 20 mg once daily -Statin associated side effects: Tolerating well ROS: As per HPI Past Medical History PAST MEDICAL HISTORY Diagnosis Date De Quervain's tenosynovitis, bilateral Depression with anxiety Diabetes (HCC) Fibromyalgia Hypercholesterolemia Hypertension IBS (irritable bowel syndrome) Raynaud's disease Restless legs syndrome (RLS) Past Surgical History PAST SURGICAL HISTORY Procedure Laterality Date CONE OF CERVIX LOOPELEC EXCIS EXTRACTION, ERUPTED TOOTH OR EXPOSED ROOT (ELEVATION AND/OR FORCEPS REMOVAL) [place] teeth x 4 HYSTERECTOMY HX precervical cancer, removed cervix KNEE SURGERY HX 4x right and left x4 Family History FAMILY HISTORY Problem Relation Age of Onset Hypertension Mother Breast Cancer Mother other (raynaud) Mother Parkinson?s Disease Father Hyperlipidemia Father Arthritis Father Breast Cancer Maternal Grandmother other (Thrombosis) Maternal Grandfather COPD Paternal Grandmother Coronary Artery Disease Paternal Grandmother Coronary Artery Disease Paternal Grandfather other ([place] Disease) Maternal Aunt Cervical Cancer Paternal Aunt Heart Paternal Aunt Factor 5 Leiden Paternal cousin Social History Social History Tobacco Use Smoking status: Every Day Current packs/day: 0.50 Average packs/day: 0.5 packs/day for 31.0 years (15.5 ttl pk-yrs) Types: Cigarettes Smokeless tobacco: Never Vaping Use Vaping status: Never Used Substance Use Topics Alcohol use: No Drug use: No Allergies ALLERGIES Allergen Reactions Penicillin G Swelling Requip [Ropinirole] Other: See Comments seizures Enbrel [Etanercept] Other: See Comments Palpitations Jardiance [Empaglif* O (more content not included)...[facility] 02-15-2024 NoteHNO ID: [id number] Author: GELA MEDINA APRN.AERIAL PHOTOGRAMMETRIST Service: ? Author Type: Nurse Practitioner Type: Progress Notes Filed: 02/15/2024 16:03 Note Text: CC: Patient presents with: Recheck: 3 month DM follow up HPI Jarod Rodarte is a 53 year old female who presents today for routine follow up. DIABETES MELLITUS: Ms. Rodarte denies chest pain or dyspnea , numbness, tingling or pain in extremities, new or unusual visual symptoms, low sugar/hypoglycemic reactions, weight loss/gain, lightheadedness/dizziness, and bowel changes/loose stools. Does have increased thirst. Follows a diabetic diet most of the time. She is compliant with medication(s) and is tolerating med(s) without any side effects. She reports checking her glucose on a CGM schedule with sugars in the 200s range and in the last few weeks increased her insulin with meals. Has appointment in endocrinology to get started on insulin pump in 2 months but getting on cancellation list in hopes to be seen earlier. Patient's last HgA1C was Hemoglobin A1C (%) Date Value 03/26/2023 7.0 01/06/2023 6.3 01/12/2021 7.9 07/17/2020 8.2 Hemoglobin A1C (POCT) (%) Date Value 11/10/2023 8.5 04/14/2022 8.5 ) HTN and HLD: Ms. Rodarte indicates that she is feeling well and denies any symptoms referable to elevated blood pressure. Specifically denies headache, chest pain, dyspnea, and peripheral edema. Patient denies any side effects of her medication(s) and is compliant with their regimen. She watches her diet for sodium, low fat and low cholesterol most of the time. Palpitations that were intense with enbrel usage have improved greatly. Still with occasional Spikes of tachycardia noted on her tech watch but do not last long and she is asymptomatic. With heart monitor showing some 1st degree AV block and bursts of SVT. Currently on a beta rico and establishing with cardiology next month. With the symptoms improving, have not increased atenolol at this time. Patient had previously reported MVP but not noted on recent ECHO. Last 3 Encounter BP Readings: Date: BP: 02/15/2024 136/78 12/19/2023 132/82 11/10/2023 132/80 REVIEW OF SYSTEMS See HPI PAST MEDICAL HISTORY Diagnosis Date De Quervain's tenosynovitis, bilateral Depression with anxiety Diabetes (HCC) Fibromyalgia Hypercholesterolemia Hypertension IBS (irritable bowel syndrome) Raynaud's disease Restless legs syndrome (RLS) PAST SURGICAL HISTORY Procedure Laterality Date CONE OF CERVIX LOOPELEC EXCIS EXTRACTION, ERUPTED TOOTH OR EXPOSED ROOT (ELEVATION AND/OR FORCEPS REMOVAL) [place] teeth x 4 HYSTERECTOMY HX precervical cancer, removed cervix KNEE SURGERY HX 4x right and left x4 ALLERGIES Enbrel [Etanercept], Jardiance [Empagliflozin], Penicillin G, Requip [Ropinirole], and Wellbutrin [Bupropion Hcl] MEDICATIONS insulin lispro (HUMALOG KWIKPEN INSULIN) 100 unit/mL Inject 16 units with meals plus SS#2 (2 units for every 50 over 150) (1 units for every 10 grams of carbs) insulin glargine U-300 conc (TOUJEO MAX U-300 SOLOSTAR) 300 unit/mL (3 mL) inpn Inject subcutaneously 112 units daily semaglutide (OZEMPIC) 0.25 mg or 0.5 mg (2 mg/3 mL) pen Inject 0.5 mg subcutaneously one time a week. venlafaxine ER (EFFEXOR XR) 150 mg 24 hr capsule Take 1 capsule by mouth once daily. gabapentin (NEURONTIN) 100 mg capsule Take 1 capsule by mouth two times a day for 180 days. Take one in AM and one in afternoon. Take the 300mg before bed. gabapentin (NEURONTIN) 300 mg capsule Take 1 capsule by mouth daily at bedtime for 180 days. omeprazole (PRILOSEC) 40 mg capsule Take 1 capsule by mouth once daily. venlafaxine ER (EFFEXOR XR) 75 mg 24 hr capsule Take 1 capsule by mouth once daily. ferrous sulfate 325 mg (65 mg iron) tablet Take 1 tablet by mouth every other day. pramipexole (MIRAPEX) 0.125 mg tablet take 1 tablet by mouth every evening if needed for RESTELESS LEGS pramipexole (MIRAPEX) 0.5 mg tablet Take 1 tablet by mouth once daily. naproxen (NAPROSYN) 500 mg tablet Take 1 tablet by mouth two times a day as needed. dexAMETHasone (DECADRON) 1 mg tablet Take the tablet at 11 pm and go for labs the next morning on fasting at 8 am Blood-Glucose Transmitter (DEXCOM G6 TRANSMITTER) catracho Change transmitter every 3 months - continuous glucose monitor, multiple insulin injections E-11.9 Blood-Glucose Transmitter (DEXCOM G6 TRANSMITTER) catracho 1 Each continuous. venlafaxine XR (EFFEXOR XR) 225 mg tablet Take 1 tablet by mouth once daily. hydrOXYzine HCl (ATARAX) 25 mg tablet Take 1 tablet by mouth three times a day as needed for anxiety. Blood-Glucose Sensor (DEXCOM G6 SENSOR) catracho Change sensor every 10 days. USE FOR CONTINUOUS GLUCOSE MONITORING. MULTIPLE INSULIN INJECTIONS. E11.9 blood sugar diagnostic (ONETOUCH ULTRA TEST) test strip Test blood sugar(s) 4 times daily. Dx: Type 2 DM - Controlled E11.9 , Insulin: Yes Lancets (ONETOUC (more content not included)...[facility] 02-15-2024 History of Present illness Narrative* LaviniaGelaTRIPP.AERIAL PHOTOGRAMMETRIST - 02/15/2024 3:05 PM EST CC: Patient presents with: Recheck: 3 month DM follow up HPI Jarod Rodarte is a 53 year old female who presents today for routine follow up. DIABETES MELLITUS: Ms. Rodarte denies chest pain or dyspnea , numbness, tingling or pain in extremities, new or unusual visual symptoms, low sugar/hypoglycemic reactions, weight loss/gain, lightheadedness/dizziness, and bowel changes/loose stools. Does have increased thirst. Follows a diabetic dietmost of the time. She is compliant with medication(s) and is tolerating med(s) without any side effe cts. She reports checking her glucose on a CGM schedule with sugars in the 200s range and in the last few weeks increased her insulin with meals. Has appointment in endocrinology to get started on insulin pump in 2 months but getting on cancellation list in hopes to be seen earlier. Patient's last HgA1C was Hemoglobin A1C (%) Date Value 03/26/2023 7.0 01/06/2023 6.3 01/12/2021 7.9 07/17/2020 8.2 Hemoglobin A1C (POCT) (%) Date Value 11/10/2023 8.5 04/14/2022 8.5 ) HTN and HLD: Ms. Rodarte indicates that she is feeling well and denies any symptoms referable to elevated blood pressure. Specifically denies headache, chest pain, dyspnea, and peripheral edema. Patient denies any side effects of her medication(s) and is compliant with their regimen. She watches her diet for sodium, low fat and low cholesterol most of the time. Palpitations that were intense withenbrel usage have improved greatly. Still with occasional Spikes of tachycardia noted on her tech watch but do not last long and she is asymptomatic. With heart monitor showing some 1st degree AV block and bursts of SVT. Currently on a beta rico and establishing with cardiology next month. With the symptoms improving, have not increased atenolol at this time. Patient had previously reported MVP but not noted on recent ECHO. Last 3 Encounter BP Readings: Date: BP: 02/15/2024 136/78 12/19/2023 132/82 11/10/2023 132/80 REVIEW OF SYSTEMS See HPI PAST MEDICAL HISTORY Diagnosis Date De Quervain's tenosynovitis, bilateral Depression with anxiety Diabetes (HCC) Fibromyalgia Hypercholesterolemia Hypertension IBS (irritable bowel syndrome) Raynaud's disease Restless legs syndrome (RLS) PAST SURGICAL HISTORY Procedure Laterality Date CONE OF CERVIX LOOPELEC EXCIS EXTRACTION, ERUPTED TOOTH OR EXPOSED ROOT (ELEVATION AND/OR FORCEPS REMOVAL) [place] teeth x 4 HYSTERECTOMY HX precervical cancer, removed cervix KNEE SURGERY HX 4x right and left x4 ALLERGIES Enbrel [Etanercept], Jardiance [Empagliflozin], Penicillin G, Requip [Ropinirole], and Wellbutrin [Bupropion Hcl] MEDICATIONS insulin lispro (HUMALOG KWIKPEN INSULIN) 100 unit/mL Inject 16 units with meals plus SS#2 (2 units for every 50 over 150) (1 units for every 10 grams of carbs) insulin glargine U-300 conc (TOUJEO MAX U-300 SOLOSTAR) 300 unit/mL (3 mL) inpn Inject subcutaneously 112 units daily semaglutide (OZEMPIC) 0.25 mg or 0.5 mg (2 mg/3 mL) pen Inject 0.5 mg subcutaneously one time a week. venlafaxine ER (EFFEXOR XR) 150 mg 24 hr capsule Take 1 capsule by mouth once daily. gabapentin (NEURONTIN) 100 mg capsule Take 1 capsule by mouth two times a day for 180 days. Take one in AM and one in afternoon. Take the 300mg before bed. gabapentin (NEURONTIN) 300 mg capsule Take 1 capsule by mouth daily at bedtime for 180 days. omeprazole (PRILOSEC) 40 mg capsule Take 1 capsule by mouth once daily. venlafaxine ER (EFFEXOR XR) 75 mg 24 hr capsule Take 1 capsule by mouth once daily. ferrous sulfate 325 mg (65 mg iron) tablet Take 1 tablet by mouth every other day. pramipexole (MIRAPEX) 0.125 mg tablet take 1 tablet by mouth every evening if needed for RESTELESS LEGS pramipexole (MIRAPEX) 0.5 mg tablet Take 1 tablet by mouth once daily. naproxen (NAPROSYN) 500 mg tablet Take 1 tablet by mouth two times a day as needed. dexAMETHasone (DECADRON) 1 mg tablet Take the tablet at 11 pm and go for labs the next morning on fasting at 8 am Blood-Glucose Transmitter (DEXCOM G6 TRANSMITTER) catracho Change transmitter every 3 months - continuous glucose monitor, multiple insulin injections E-11.9 Blood-Glucose Transmitter (DEXCOM G6 TRANSMITTER) catracho 1 Each continuous. venlafaxine XR (EFFEXOR XR) 225 mg tablet Take 1 tablet by mouth once daily. hydrOXYzine HCl (ATARAX) 25 mg tablet Take 1 tablet by mouth three times a day as needed for anxiety. Blood-Glucose Sensor (DEXCOM G6 SENSOR) catracho Change sensor every 10 days. USE FOR CONTINUOUS GLUCOSE MONITORING. MULTIPLE INSULIN INJECTIONS. E11.9 blood sugar diagnostic (ONETOUCH ULTRA TEST) test strip Test blood sugar(s) 4 times daily. Dx: Type2 DM - Controlled E11.9 , Insulin: Yes Lancets (ONETOUCH ULTRASOFT LANCETS) lancets Test blood sugar(s) 4 times daily. Dx: Type 2 DM - Controlled E11.9 , Insulin: Yes famotidine (PEPCID) 20 mg tablet Take 1 tablet by mouth at bedtime as needed. montelukast (SINGULAIR) 10 mg tablet Take 1 tablet by mouth daily at bedtime. amLODIPine (NORVASC) 5 mg tablet Take 1 tablet by mouth once daily. atenolol (TENORMIN) 50 mg tablet Take 1 tablet by mouth once daily. atorvastatin (LIPITOR) 20 mg tablet Take 1 tablet by mouth once daily. fenofibrate nanocrystallized (TRICOR) 145 mg tablet Take 1 tablet by mouth once daily. metFORMIN (GLUCOPHAGE) 1,000 mg tablet Take 1 tablet by mouth two times a day with meals. losartan (COZAAR) 100 mg tablet TAKE ONE-HALF TABLET BY MOUTH ONCE DAILY Insulin Bradford, Disposable, (BD ULTRAFINE III MINI PEN) 31 gauge x 3/16 Use with insulin injection 2 times daily glucagon (GLUCAGON EMERGENCY KIT, HUMAN,) 1 mg injection Inject (1)one mg for insulin shock. Blood-Glucose Meter,Continuous (DEXCOM G6 [employer] TEACHER) misc 1 Each continuous. ondansetron orally disintegrating (ZOFRAN ODT) 4 mg disintegrating tablet Take 1 tablet by mouth every 6 hours as needed for nausea/vomiting. celecoxib (CELEBREX) 200 mg capsule Take 200 mg by mouth every morning. diclofenac (VOLTAREN) 1 % topical gel Apply 2 g to affected area four times daily. triamcinolone acetonide (NASACORT AQ) 55 mcg nasal inhaler Use 2 Sprays in the nose once daily. aspirin, enteric coated (ASPIRIN, ENTERIC COATED) 81 mg EC tablet Take 1 tablet by mouth once daily. FAMILY HISTORY Problem Relation Age of Onset Hypertension Mother Breast Cancer Mother other (raynaud) Mother Parkinson s Disease Father Hyperlipidemia Father Arthritis Father Breast Cancer Maternal Grandmother other (Thrombosis) Maternal Grandfather COPD Paternal Grandmother Coronary Artery Disease Paternal Grandmother Coronary Artery Disease Paternal Grandfather other ([place] Disease) Maternal Aunt Cervical Cancer Paternal Aunt Heart Paternal Aunt Factor 5 Leiden Paternal cousin Social History Tobacco Use Smoking status: Every Day Current packs/day: 0.50 Average packs/day: 0.5 packs/day for 31.0 years (15.5 ttl pk-yrs) Types: Cigarettes Smokeless tobacco: Never Vaping Use Vaping status: Never Used Substance Use Topics Alcohol use: No Drug use: No PHYSICAL EXAM BP 136/78 Pulse 85 Resp 16 Wt 88.9 kg (196 lb) SpO2 98% BMI 32.62 kg/m General Appearance: well appearing, in no acute distress, alert Eyes: conjunctiva pink and moist, no icterus, sclera white, non-injected Lungs: Lungs clear to auscultation. No wheezing, rhonchi, rales. Heart: RRR without murmur, gallop, or rubs. No ectopy Extremities: No deformities, edema, skin discoloration, clubbing or cyanosis. Good capillary refill. Feet:Shoes and socks removed, normal distal pulses, sensitive to 10 gm monofilament, and vibratory perception normal Health maintenance reviewed with patient: Hepatitis B Vaccine(1 of 3 - 19+ 3-dose series) Never done Shingrix Vaccine(1 of 2) Never done Colorectal Cancer Screening Never done Cervical Cancer Screening due on 11/30/2014 Diabetic Foot Exam due on 06/12/2022 BP Controlled (<130/80) due on 09/11/2022 HbA1C due on 02/10/2024 Mammogram Screening due on 05/03/2024 Influenza Vaccine(1) due on 09/24/2024 Covid-19 Vaccine(2023- season) due on 12/18/2024 Urine Albumin:Creatinine Ratio due on 03/26/2024 LDL Cholesterol due on 03/26/2024 DTaP,Tdap,Td Vaccine(2 - Td or Tdap) due on 03/28/2024 Dilated Retinal Exam due on 05/31/2024 Annual PCP Team Chronic Disease Visit due on 12/18/2024 Pneumococcal Vaccine(4 of 4 - PPSV23 or PCV20) due on 2034 Hepatitis C Screening Completed HIV Screening Completed DATA REVIEWED: No new labs ASSESSMENT/PLAN: 1. Type 2 diabetes mellitus with diabetic nephropathy, with long-term current use of insulin (HCC) - ICD9: 250.40, 583.81, V58.67, ICD10: E11.21, Z79.4 (primary diagnosis) - Uncontrolled - with her high need of insulin she would benefit from dietitian assistance. - Continue current medications and recommendations by endocrinology - Blood glucose monitoring on a continuous glucose monitoring schedule - Counseled on healthy diet and regular exercise - Discussed need for and benefit of weight loss. BMI 32.62 kg/(m^2) - METFORMIN 1,000 MG TABLET - CONSULT TO NUTRITION THERAPY 2. Essential hypertension - ICD9: 401.9, ICD10: I10 Sub-optimal control - with diet and weight loss, this will improve Follow up in 3 months - Continue current medications - Recommend home blood pressure monitoring, to bring results to next visit - Encouraged sodium restriction, DASH or Mediterranean diet - Recommend regular aerobic exercise - LOSARTAN 100 MG TABLET - CONSULT TO NUTRITION THERAPY 3. Hyperlipidemia, unspecified hyperlipidemia type - ICD9: 272.4, ICD10: E78.5 - Control undetermined, due for labs - get labs drawn as previously ordered. - Continue current medications - Counseled on healthy diet and regular exercise - Discussed need for and benefit of weight loss. BMI 32.62 kg/(m^2) 4. Palpitations - ICD9: 785.1, ICD10: R00.2 Improving. With the symptoms improving, have not increased atenolol at this time. Keep upcoming appointment with cardiology. Prescription instructions reviewed with patient as applicable. Potential red flag symptoms discussed with the patient. Reviewed appropriate action plan to take if red flag symptoms occur. Patient agreeable to treatment plan. Gela Medina APRN.CNP documented in this encounter[facility] Telephone encounter Note * Telephone Encounter - Areli Bedoya, MaryD - 02/14/2024 4:15 PM EST SUBJECTIVE Jarod Rodarte is a 53 year old Female who was referred to [facility] for clinical management services for Orencia ClickJect 125 MG/ML. Diagnosis Rheumatoid arthritis without rheumatoid factor, [facility] M06.00 OBJECTIVE Medications: Diclofenac Sodium 1 % GEL EX Folic Acid 1 MG TABS PO Methotrexate Sodium 2.5 MG TABS PO MethylPREDNISolone 4 MG TABS PO Montelukast Sodium 10 MG TABS PO Orencia ClickJect 125 MG/ML SOAJ SC Plaquenil 200 MG TABS PO Relafen 750 MG TABS PO Venlafaxine HCl ER 150 MG CP24 PO Allergies: Penicillins bupropion HCl ropinirole Medical History & Comorbidities: Problem list has been reviewed in the EHR Data Collect Orencia ClickJect 02/14/2024 RAPID-3 Assessment Date: 02/14/2024 Value: 19.7 TB screening Assessment Date: 01/25/2022 Value: negative HBV screening Assessment Date: 09/14/2022 Value: negative non-immune/unknown ASSESSMENT / PLAN Orencia ClickJect 125 MG/ML Expectations and Goals of therapy Educated that full effect of new biologic therapy may take up 2-3 months - it is important to remain on any other therapies currently prescribed for management. May also need to continue to use pain relievers and other therapies for symptom management in the interim. Goals of therapy include symptom improvement, suppression of inflammatory markers, RAPID-3 improvement Disease state education Counseled on general disease state management strategies. Emphasized that Rheumatoid Arthritis is achronic medical condition that requires consistent adherence to prescribed medication in order to achieve treatment goals. Administration Counseled on administration directions. Remove dose from refrigerator 30-60 minutes prior to injection and allow to warm to room temperature. Rotate injection sites - best sites for a subcutaneous injection is top of the thighs or abdomen/abdominal region at least 2 inches away from the belly button. May apply ice or heat the spot prior to and after injection. Can treat with OTC agents for minor irritation including hydrocortisone or diphenhydramine. The patient will inject the medication herself every 7 days. I do not foresee any barriers as the patient is comfortable with injection technique due to being on prior medications. Storage/Disposal Counseled on proper storage of medication in the refrigerator and extended stability for up to 24 hours at room temperature (77F max)- if necessary Side effects Educated that common side effects include injection reactions and infection. Emphasis placed on self-management of infection related issues, particularly as it relates to withholding the next dose ofOrencia if there is an active infection or if a course of antibiotic therapy is still in progress. Emphasized that rare, but serious adverse events such as blood cancers and demyelinating disorders have happened in patients taking biologic medications, so regular follow up is essential to ensure safety. Counseled that patient should not receive live vaccines while on Orencia due to risk of potential adverse effects. Contact Advised when to contact pharmacy or provider. Provided with direct number to clinical pharmacist for questions or concerns prior to scheduled follow up. The patient was oriented to the pharmacy s services upon their initial fill and it was communicated that they can participate in this plan of careby speaking with a Pharmacist which is offered during each reassessment. Adherence Since this is a preventative therapy, the patient needs to take Orencia routinely as prescribed regardless of the activity of their disease. Monitoring and follow up Reviewed therapy monitoring parameters and importance to maintain follow-up lab and provider visits. The patient is aware to let us know if any issues or reactions occur while on this medication so that we can let the provider know as well as any changes in medications so we can assess for interactions and such. Pharmacy Recommendations/Education/Other The patient knows to let us know if anything changes or comes up regarding medication therapy or changes in current medications. The patient can call us at [phone] M-F 8 AM - 5 PM. Areli Bedoya Clinical Pharmacist [facility] [phone] [phone] Miscellaneous Notes* Telephone Encounter - Areli Bedoya PharmD - 02/14/2024 4:15 PM EST SUBJECTIVE Jarod Rodarte is a 53 year old Female who was referred to [facility] for clinical management services for Orencia ClickJect 125 MG/ML. Diagnosis Rheumatoid arthritis without rheumatoid factor, unsp site M06.00 OBJECTIVE Medications: Diclofenac Sodium 1 % GEL EX Folic Acid 1 MG TABS PO Methotrexate Sodium 2.5 MG TABS PO MethylPREDNISolone 4 MG TABS PO Montelukast Sodium 10 MG TABS PO Orencia ClickJect 125 MG/ML SOAJ SC Plaquenil 200 MG TABS PO Relafen 750 MG TABS PO Venlafaxine HCl ER 150 MG CP24 PO Allergies: Penicillins bupropion HCl ropinirole Medical History & Comorbidities: Problem list has been reviewed in the EHR Data Collect Orencia ClickJect 02/14/2024 RAPID-3 Assessment Date: 02/14/2024 Value: 19.7 TB screening Assessment Date: 01/25/2022 Value: negative HBV screening Assessment Date: 09/14/2022 Value: negative non-immune/unknown ASSESSMENT / PLAN Orencia ClickJect 125 MG/ML Expectations and Goals of therapy Educated that full effect of new biologic therapy may take up 2-3 months - it is important to remain on any other therapies currently prescribed for management. May also need to continue to use pain relievers and other therapies for symptom management in the interim. Goals of therapy include symptom improvement, suppression of inflammatory markers, RAPID-3 improvement Disease state education Counseled on general disease state management strategies. Emphasized that Rheumatoid Arthritis is achronic medical condition that requires consistent adherence to prescribed medication in order to achieve treatment goals. Administration Counseled on administration directions. Remove dose from refrigerator 30-60 minutes prior to injection and allow to warm to room temperature. Rotate injection sites - best sites for a subcutaneous injection is top of the thighs or abdomen/abdominal region at least 2 inches away from the belly button. May apply ice or heat the spot prior to and after injection. Can treat with OTC agents for minor irritation including hydrocortisone or diphenhydramine. The patient will inject the medication herself every 7 days. I do not foresee any barriers as the patient is comfortable with injection technique due to being on prior medications. Storage/Disposal Counseled on proper storage of medication in the refrigerator and extended stability for up to 24 hours at room temperature (77F max)- if necessary Side effects Educated that common side effects include injection reactions and infection. Emphasis placed on self-management of infection related issues, particularly as it relates to withholding the next dose ofOrencia if there is an active infection or if a course of antibiotic therapy is still in progress. Emphasized that rare, but serious adverse events such as blood cancers and demyelinating disorders have happened in patients taking biologic medications, so regular follow up is essential to ensure safety. Counseled that patient should not receive live vaccines while on Orencia due to risk of potential adverse effects. Contact Advised when to contact pharmacy or provider. Provided with direct number to clinical pharmacist for questions or concerns prior to scheduled follow up. The patient was oriented to the pharmacy s services upon their initial fill and it was communicated that they can participate in this plan of careby speaking with a Pharmacist which is offered during each reassessment. Adherence Since this is a preventative therapy, the patient needs to take Orencia routinely as prescribed regardless of the activity of their disease. Monitoring and follow up Reviewed therapy monitoring parameters and importance to maintain follow-up lab and provider visits. The patient is aware to let us know if any issues or reactions occur while on this medication so that we can let the provider know as well as any changes in medications so we can assess for interactions and such. Pharmacy Recommendations/Education/Other The patient knows to let us know if anything changes or comes up regarding medication therapy or changes in current medications. The patient can call us at [phone] M-F 8 AM - 5 PM. Areli Bedoya Clinical Pharmacist [facility] [phone] documented in this [facility]11-19-2024 Telephone encounter Note* Telephone Encounter - Marleni Coronel RN - 02/14/2024 3:49 PM EST Prescription Refill Information The patient has been identified by name and date of : Yes Caregiver verified no other encounters exist for this prescription request: Yes Caregiver confirmed with patient/requestor that no other refills are due, in the near future, with this provider at this time: Yes Requested Prescriptions Pending Prescriptions Disp Refills Blood-Glucose Sensor (DEXCOM G6 SENSOR) catracho 9 Each 3 Sig: Change sensor every 10 days. USE FOR CONTINUOUS GLUCOSE MONITORING. MULTIPLE INSULIN INJECTIONS. E11.9 Marleni Coronel RN February 14, 2024 3:50 PM [facility]11-19-[facility]24 Miscellaneous Notes* Telephone Encounter - Marleni Coronel RN - 02/14/2024 3:49 PM EST Prescription Refill Information The patient has been identified by name and date of : Yes Caregiver verified no other encounters exist for this prescription request: Yes Caregiver confirmed with patient/requestor that no other refills are due, in the near future, with this provider at this time: Yes Requested Prescriptions Pending Prescriptions Disp Refills Blood-Glucose Sensor (DEXCOM G6 SENSOR) catracho 9 Each 3 Sig: Change sensor every 10 days. USE FOR CONTINUOUS GLUCOSE MONITORING. MULTIPLE INSULIN INJECTIONS. E11.9 Marleni Coronel RN February 14, 2024 3:50 PM documented in this encounterProm[facility]11-[facility] Telephone encounter Note * Telephone Encounter - Odilon Barber MD - 02/14/2024 1:02 PM EST Please advise pt - Orencia rx sent to specialty pharmacy - take instead of humira [id number] Miscellaneous Notes* Telephone Encounter - Odilon Barber MD - 02/14/2024 1:02 PM EST Please advise pt - Orencia rx sent to specialty pharmacy - take instead of humira * Telephone Encounter - Makayla Starr - 02/14/2024 8:07 AM EST Name of caller: Jarod Contact phone number: [phone] Relationship to Patient: Patient Provider: Dr Barber Practice: [facility] Chief Complaint/Reason for Call: Patient states after research she does not want to take HUMIRA - would rather be placed on the other medication discussed. Please advise Best time of day caller can be reached: any Patient advised that office/PCP has 24-48 business hours to return their call: No * Telephone Encounter - Odilon Barber MD - 02/14/2024 8:02 AM EST Thank you! * Telephone Encounter - Yodit Martini - 02/13/2024 3:06 PM EST Medication: Orencia clickjet 125mg/ml Dosing Schedule: Inject 125 mg under the skin weekly Prior Authorization: Submitted date: 02/13/24 MARY reference #: [id number] Approval dates: 11.14.2023-02.12.2025 Total Copay: $ 0 Specialty Pharmacy: [facility] Yodit Clinical Liaison [facility] [phone] * Telephone Encounter - Areli Bedoya PharmD - 02/13/2024 11:28 AM EST Medication: Orencia clickjet 125mg/ml Dosing Schedule: Inject 125 mg under the skin weekly Prior Authorization: Submitted date: 02/13/24 MARY reference #: [id number] Approval dates: Denied date: PA denial reason(s): Appeal: Submitted date: Approval dates: Approval reference #: Denied date: Appeal denial reason(s): Financial Assistance: FA Source: FA approval dates: FA award: $ BIN: PCN: GROUP: ID Number: Total Copay: $ Specialty Pharmacy: Phone Number: Areli Bedoya Clinical Pharmacist [facility] [phone] documented in this [facility]11-19-2024 Telephone encounter Note* Telephone Encounter - Makayla Starr - 02/14/2024 8:07 AM EST Name of caller: Jarod Contact phone number: [phone] Relationship to Patient: Patient Provider: Dr Barber Practice: [facility] Chief Complaint/Reason for Call: Patient states after research she does not want to take HUMIRA - would rather be placed on the other medication discussed. Please advise Best time of day caller can be reached: any Patient advised that office/PCP has 24-48 business hours to return their call: No [id number] Telephone encounter Note* Telephone Encounter - Odilon Barber MD - 02/14/2024 8:02 AM EST Thank you! [facility] [id number] Telephone encounter Note* Telephone Encounter - Yodit Martini - 02/13/2024 3:06 PM EST Medication: Orencia clickjet 125mg/ml Dosing Schedule: Inject 125 mg under the skin weekly Prior Authorization: Submitted date: 02/13/24 PA reference #: [id number] Approval dates: 11.14.2023-02.12.2025 Total Copay: $ 0 Specialty Pharmacy: [facility] [phone] [facility] [id number] Telephone encounter Note* Telephone Encounter - Areli Bedoya PharmD - 02/13/2024 11:28 AM EST Medication: Orencia clickjet 125mg/ml Dosing Schedule: Inject 125 mg under the skin weekly Prior Authorization: Submitted date: 02/13/24 PA reference #: [id number] Approval dates: Denied date: PA denial reason(s): Appeal: Submitted date: Approval dates: Approval reference #: Denied date: Appeal denial reason(s): Financial Assistance: FA Source: FA approval dates: FA award: $ BIN: PCN: GROUP: ID Number: Total Copay: $ Specialty Pharmacy: Phone Number: Areli Bedoya Clinical Pharmacist [facility] [phone] [id number] Telephone encounter Note* Telephone Encounter - Odilon Barber MD - 02/10/2024 5:24 PM EST [facility] would like to check coverage for orencia self inj weekly for seroneg RA if possible (she had adverse reaction to enbrel). If this is doubtful, possibly checking on humira might be a plan b. Thank you! AJ [id number] Miscellaneous Notes* Telephone Encounter - Odilon Barber MD - 02/10/2024 5:24 PM EST [facility] I would like to check coverage for orencia self inj weekly for seroneg RA if possible (she had adverse reaction to enbrel). If this is doubtful, possibly checking on humira might be a plan b. Thank you! AJ documented in this [facility]11-15-2024 History of Present illness Narrative* Odilon Barber MD - 02/10/2024 4:00 PM EST CHIEF COMPLAINT: joint pain HPI: Ongoing seronegative RA. She had improving symptoms while she was on Enbrel, but had increasing episodes of palpitations and was diagnosed with atrial fibrillation which was felt to be related to Enbrel. She has since stopped it but remains on methotrexate and hydroxychloroquine and nabumetone. She is seeing cardiology soon for further evaluation and possible change in anticoagulant. She hasnot had recent palpitations. She has some pain in her knees and hands which are worse with use. Shehas a cousin with psoriatic arthritis. The patient herself has not had a history of psoriasis. She is interested in trying a different medication other than Enbrel but is concerned about the possibility of arrhythmias. No recent infections. She is due for labs in April. General: no weight loss, fevers or night sweats HEENT: no dry eyes or mouth, oral ulcers, no visual changes or red eyes, no changes in hearing CV: no chest pain or palpitations Pulm: no worsening shortness of breath, no pleurisy GI: no nausea, GERD : no dysuria, incontinence or changes in kidney function Neuro: no new headaches, weakness or seizures Skin: no new rashes or skin lesions Allergies Allergen Reactions Penicillins Anaphylaxis Bupropion Other Seizure and hives Empagliflozin Hives Ropinirole Seizure Current Outpatient Medications Medication Sig Dispense Refill amLODIPine (Norvasc) 5 MG tablet Take 5 mg by mouth in the morning. aspirin 81 MG EC tablet Take 81 mg by mouth in the morning. atenolol (Tenormin) 50 MG tablet Take 50 mg by mouth in the morning. atorvastatin (Lipitor) 20 MG tablet Take 20 mg by mouth in the morning. BD Pen Needle Teetee 2nd Gen 32G X 4 MM [facility] [place] USE TO INJECT INSULIN SUBCUTANEOUSLY TWICE A DAY DIRECTED Continuous Blood Gluc Sensor (Dexcom G6 Sensor) [facility] [place] Use a new sensor every 10 days. fenofibrate (Tricor) 145 MG tablet Take 145 mg by mouth in the morning. folic acid (Folvite) 1 MG tablet Take 3 tablets (3,000 mcg) by mouth daily. 90 tablet 11 gabapentin (Neurontin) 100 MG capsule Take 100 mg by mouth 2 times daily. gabapentin (Neurontin) 300 MG capsule Take 300 mg by mouth Nightly. glucagon (Gvoke HypoPen) 1 MG/0.2ML injection Inject 1 mg under the skin Once as needed for low blood sugar. Prn for emergency hydroxychloroquine (Plaquenil) 200 MG tablet take 2 tablets by mouth once daily 60 tablet 2 insulin glargine (Lantus) 100 UNIT/ML pen Inject 67 Units under the skin in the morning and 67 Units in the evening. Insulin Glargine (TOUJEO MAX SOLOSTAR SC) Inject 112 Units under the skin every morning. Insulin Lispro (Humalog) 100 UNIT/ML solution injection Inject 5 Units under the skin. Sliding scale losartan (Cozaar) 100 MG tablet Take 0.5 tablets by mouth in the morning. metFORMIN (Glucophage) 1000 MG tablet Take 1 tablet by mouth in the morning and 1 tablet in the evening. Take with meals. methotrexate 2.5 MG tablet Take 7 tablets (17.5 mg total) by mouth 1 (one) time per week. 84 tablet1 methylPREDNISolone (Medrol) 4 MG tablet Take 2 tabs po every day for one week then 1 tab po every day for one week 21 tablet 0 montelukast (Singulair) 10 MG tablet Take 1 tablet by mouth Nightly. nabumetone (Relafen) 750 MG tablet TAKE 1 TABLET (750 MG) BY MOUTH 2 TIMES DAILY. TAKE WITH FOOD 180 tablet 0 omeprazole (PriLOSEC) [address] capsule Take 1 capsule by mouth every morning (before breakfast). pramipexole (Mirapex) 0.5 MG tablet Take 0.5 mg by mouth in the morning. semaglutide (Ozempic, 1 MG/DOSE,) 4 MG/3ML solution pen-injector Inject 1 mg under the skin once a week. triamcinolone (Nasacort) 55 MCG/ACT nasal inhaler Administer 2 sprays into affected nostril(s) in the morning. Unifine Pentips 31G X 5 MM misc venlafaxine XR (Effexor XR) 150 MG 24 hr capsule Take 150 mg by mouth in the morning. Diclofenac Sodium (Voltaren) 1 % gel Apply 2 g to affected hand bid prn 200 g 3 No current facility-administered medications for this visit. Past Medical History: Diagnosis Date Chronic pain syndrome Depression Diabetes 1.5, managed as type 2 (HCC) Fibromyalgia syndrome Gastroesophageal reflux disease Heart abnormality 12/22/2023 Hyperlipidemia Hypertension Irritable bowel syndrome Moderate smoker (20 or less per day) Proteinuria Raynaud's syndrome Restless leg syndrome Tendinitis of thumb Thrombocytosis Tobacco abuse History reviewed. No pertinent surgical history. No family history on file. Social History Socioeconomic History Marital status: Spouse name: Not on file Number of children: Not on file Years of education: Not on file Highest education level: Not on file Occupational History Not on file Tobacco Use Smoking status: Every Day Types: Cigarettes Smokeless tobacco: Never Vaping Use Vaping status: Never Used Substance and Sexual Activity Alcohol use: Never Drug use: Never Sexual activity: Not on file Other Topics Concern Not on file Social History Narrative Not on file Social Drivers of Health Financial Resource Strain: Medium Risk (07/14/2022) Received from [facility] Overall Financial Resource Strain (CARDIA) Difficulty of Paying Living Expenses: Somewhat hard Food Insecurity: Food Insecurity Present (07/14/2022) Received from [facility] Hunger Vital Sign Worried About Running Out of Food in the Last Year: Sometimes true Ran Out of Food in the Last Year: Sometimes true Transportation Needs: No Transportation Needs (07/14/2022) Received from [facility] PRAPARE - Transportation Lack of Transportation (Medical): No Lack of Transportation (Non-Medical): No Physical Activity: Insufficiently Active (07/14/2022) Received from [facility] Exercise Vital Sign Days of Exercise per Week: 4 days Minutes of Exercise per Session: 30 min Stress: No Stress Concern Present (07/14/2022) Received from [facility] [place] [facility] - Occupational Stress Questionnaire Feeling of Stress : Not at all Social Connections: Moderately Isolated (07/14/2022) Received from [facility] Social Connection and Isolation Panel [NHANES] Frequency of Communication with Friends and Family: Three times a week Frequency of Social Gatherings with Friends and Family: Three times a week Attends Spiritism Services: Never Active Member of Clubs or Organizations: No Attends Club or Organization Meetings: Never Marital Status: Living with partner Intimate Partner Violence: Not on file Housing Stability: Low Risk (01/20/2021) Received from [facility] Housing Stability Vital Sign Unable to Pay for Housing in the Last Year: No Number of Places Lived in the Last Year: 1 Unstable Housing in the Last Year: No OBJECTIVE: Visit Vitals BP (!) 145/84 (BP Location: Left arm, Patient Position: Sitting, BP Cuff Size: Large adult) Pulse 78 HEENT: no red or dry eyes, oral mucosa moist and without lesions, no alopecia or scalp rashes, no lymphadenopathy CV: S1S2 no mrg Pulm: CTA bilat without wheezes, crackles Abd: soft, nontender MSK: + tenderness in MCPs, wrists bilat with mod swelling Neuro: CN 2-12 grossly intact, strength 5/5, no sensory loss in UE, LE, DTRs 1+ Skin: no rashes, no purpura, no bruising A/P: 1) seronegative rheumatoid arthritis-with persistent symptoms. She had previous improvement with Enbrel but had adverse reactions to this medication. Will check coverage of possible Orencia or Humirain place of Enbrel for her seronegative RA. She will try scaling back nabumetone and hydroxychloroquine slightly if the new biologic is effective. Continue lab monitoring every 4 to 6 months and she w ill hold methotrexate and biologic if she has any signs of fever chills cough or other signs of infection. She will continue yearly eye exams for Plaquenil toxicity screens. 2) atrial fibrillation-she has follow-up with cardiology, and she will try to scale back her NSAIDsand hydroxychloroquine if her new biologic is helpful as above. She will remain off Enbrel indefinitely. Orders Placed This Encounter Procedures CBC Standing Status: Future Number of Occurrences: 1 Standing Expiration Date: 02/09/2025 Comprehensive metabolic panel Standing Status: Future Number of Occurrences: 1 Standing Expiration Date: 02/09/2025 C-reactive protein Standing Status: Future Number of Occurrences: 1 Standing Expiration Date: 02/09/2025 documented in this [facility]11-08-2024 Telephone encounter Note* Telephone Encounter - Laila Caraballo RN - 02/03/2024 5:24 PM EST Medication: methotrexate 2.5mg 7 tab qwk Refills: 11/10/23 28 + 2 lucita LARA: 08/09/23 misischia/ go back up to 17.5 mg and take 4 tablets in the morning and 3 tablets in the evening 1 day a week and continue folic acid 3 mg a day. If she does not have any problems with this, we will try to go back to 20 mg of methotrexate weekly. Update labs again in 4 weeks and I will contact the patient with results. NOV: 4 months/ 01/06/24 r/s'd per pt, 02/01/24 r/s'd per pt, now 02/10/24 Labs: 12/19/23 another provider Pended 30 days + 0 refills [id number] Miscellaneous Notes* Telephone Encounter - Laila Caraballo RN - 02/03/2024 5:24 PM EST Medication: methotrexate 2.5mg 7 tab qwk Refills: 11/10/23 28 + 2 lucita LARA: 08/09/23 misischia/ go back up to 17.5 mg and take 4 tablets in the morning and 3 tablets in the evening 1 day a week and continue folic acid 3 mg a day. If she does not have any problems with this, we will try to go back to 20 mg of methotrexate weekly. Update labs again in 4 weeks and I will contact the patient with results. NOV: 4 months/ 01/06/24 r/s'd per pt, 02/01/24 r/s'd per pt, now 02/10/24 Labs: 12/19/23 another provider Pended 30 days + 0 refills documented in this [facility]SM[facility] [id number] Telephone encounter Note* Telephone Encounter - Gela Medina APRN.CNP - 02/01/2024 5:01 PM EST Noted. Will discuss further at upcoming appointment and continue with plans to establish with cardiology. Thank you Gela Medina APRN.CNP [facility]11-06-2024 Miscellaneous Notes* Telephone Encounter - Gela Medina APRN.CNP - 02/01/2024 5:01 PM EST Noted. Will discuss further at upcoming appointment and continue with plans to establish with cardiology. Thank you Gela Medina APRN.CNP * Telephone Encounter - Estephania Saeed LPN - 02/01/2024 9:41 AM EST Phoned patient went over results, notes from Gela Medina CLINICAL PHYSICIAN ASSISTANT with understanding. Assisted with transfer to surgery scheduler to get Cardiology appt set up. Patient said no new symptoms. Her palpitations are little better, not happening as much as it was. * Telephone Encounter - Gela Medina APRN.CNP - 02/01/2024 9:00 AM EST Abnormalities noted to heart monitor. I would like her to see cardiology? Any new symptoms? How areher palpitations? Take care Gela Medina APRN.CNP documented [facility] this [facility] Telephone encounter Note * Telephone Encounter - Estephania Saeed LPN - 02/01/2024 9:41 AM EST Phoned patient went over results, notes from Gela Medina CLINICAL PHYSICIAN ASSISTANT with understanding. Assisted with transfer to surgery scheduler to get Cardiology appt set up. Patient said no new symptoms. Her palpitations are little better, not happening as much as it was. [facility]11-06-2024 Telephone encounter Note* Telephone Encounter - Gela Medina APRN.CNP - 02/01/2024 9:00 AM EST Abnormalities noted to heart monitor. I would like her to see cardiology? Any new symptoms? How areher palpitations? Take care Gela Medina APRN.CNP [facility]09-30-2024 Telephone encounter Note* Telephone Encounter - Yodit Aranda MA - 12/26/2023 9:47 AM EDT PA submitted and say no PA needed. Called and spoke to pharmacist at [facility] and he advised that instructions are conflicting insurance will not do paid claim due to TDD says 30 but alone with 16 units TID your at 48 units than sliding scale add on. Please re-send rx without TDD Yodit Aranda MA [facility]09-30-2024 Miscellaneous Notes* Telephone Encounter - Yodit Aranda MA - 12/26/2023 9:47 AM EDT PA submitted and say no PA needed. Called and spoke to pharmacist at [facility] and he advised that instructions are conflicting insurance will not do paid claim due to TDD says 30 but alone with 16 units TID your at 48 units than sliding scale add on. Please re-send rx without TDD Yoidt Aranda MA * Telephone Encounter - Jackie Glover RN - 12/23/2023 9:33 AM EDT Prior Authorization Documentation Patient calls to request Prior authorization for the following medication: Medication: Insulin Lispro Provider: [employer] Company Name: [employer] Medicare Advantage Patient ID number: [id number] RXBIN: [id number] RXGRP: [id number] Pharmacy Name: [facility] Telephone number: [phone] documented in this [facility]Prom[facility] Telephone encounter Note * Telephone Encounter - Jackie Glover RN - 12/23/2023 9:33 AM EDT Prior Authorization Documentation Patient calls to request Prior authorization for the following medication: Medication: Insulin Lispro Provider: [employer] Company Name: [employer] Medicare Advantage Patient ID number: [id number] RXBIN: [id number] RXGRP: [id number] Pharmacy Name: [facility] Telephone number: [phone] [facility]09-23-2024 History of Present illness Narrative* Lavinia, GelaTRIPP.AERIAL PHOTOGRAMMETRIST - 12/19/2023 8:36 AM EDT CC: Patient presents with: Recheck: Follow up, medication HPI Jarod Rodarte is a 53 year old female who presents today for concerns of palpitations. 4 weeks ago was started on enbral for RA. Shortly after starting this started with palpitations, high heart rate, felt like she was going to pass out, elevated SBP 170s, shortness of breath, fatigue,varying blood sugars, sore to touch skin over left sided chest from rubbing area, and slight headache. Denies chest pressure, edema, cough, wheezing, fever, chills, weakness, N/V/D, difficulty/pain urinating, or dizziness. Better with stopping the enbrel but still slightly short of breath, and palpitations when laying down, and fatigued. Bp has been more stable but blood sugars have been all over the place but consistently in the 200s. Has been seeing the elevating blood sugars since priro to the enbral. Was supposedto see endocrinology but had both appointments scheduled. No history of CHF or known CAD but with reported history of mitral valve prolapse with chronic small bursts of palpitations, but not had an ECHO or heart monitor in over 30 years. Only has had one low blood sugar. Majority have been high. Has had both long acting and short acting insulin increased months ago. Is giving herself on average, including sliding scale, 15 units withmeals. REVIEW OF SYSTEMS See HPI PAST MEDICAL HISTORY Diagnosis Date De Quervain's tenosynovitis, bilateral Depression with anxiety Diabetes (HCC) Fibromyalgia Hypercholesterolemia Hypertension IBS (irritable bowel syndrome) Raynaud's disease Restless legs syndrome (RLS) PAST SURGICAL HISTORY Procedure Laterality Date CONE OF CERVIX LOOPELEC EXCIS EXTRACTION, ERUPTED TOOTH OR EXPOSED ROOT (ELEVATION AND/OR FORCEPS REMOVAL) [place] teeth x 4 HYSTERECTOMY HX precervical cancer, removed cervix KNEE SURGERY HX 4x right and left x4 ALLERGIES Enbrel [Etanercept], Jardiance [Empagliflozin], Penicillin G, Requip [Ropinirole], and Wellbutrin [Bupropion Hcl] MEDICATIONS ENBREL SURECLICK 50 mg/mL (1 mL) Inject 50mg under the skin once a week semaglutide (OZEMPIC) 0.25 mg or 0.5 mg (2 mg/3 mL) pen Inject 0.5 mg subcutaneously one time a week. venlafaxine ER (EFFEXOR XR) 150 mg 24 hr capsule Take 1 capsule by mouth once daily. gabapentin (NEURONTIN) 100 mg capsule Take 1 capsule by mouth two times a day for 180 days. Take one in AM and one in afternoon. Take the 300mg before bed. gabapentin (NEURONTIN) 300 mg capsule Take 1 capsule by mouth daily at bedtime for 180 days. omeprazole (PRILOSEC) 40 mg capsule Take 1 capsule by mouth once daily. venlafaxine ER (EFFEXOR XR) 75 mg 24 hr capsule Take 1 capsule by mouth once daily. ferrous sulfate 325 mg (65 mg iron) tablet Take 1 tablet by mouth every other day. pramipexole (MIRAPEX) 0.125 mg tablet take 1 tablet by mouth every evening if needed for RESTELESS LEGS pramipexole (MIRAPEX) 0.5 mg tablet Take 1 tablet by mouth once daily. naproxen (NAPROSYN) 500 mg tablet Take 1 tablet by mouth two times a day as needed. dexAMETHasone (DECADRON) 1 mg tablet Take the tablet at 11 pm and go for labs the next morning on fasting at 8 am Blood-Glucose Transmitter (DEXCOM G6 TRANSMITTER) catracho Change transmitter every 3 months - continuous glucose monitor, multiple insulin injections E-11.9 Blood-Glucose Transmitter (DEXCOM G6 TRANSMITTER) catracho 1 Each continuous. venlafaxine XR (EFFEXOR XR) 225 mg tablet Take 1 tablet by mouth once daily. hydrOXYzine HCl (ATARAX) 25 mg tablet Take 1 tablet by mouth three times a day as needed for anxiety. Blood-Glucose Sensor (DEXCOM G6 SENSOR) catracho Change sensor every 10 days. USE FOR CONTINUOUS GLUCOSE MONITORING. MULTIPLE INSULIN INJECTIONS. E11.9 insulin lispro (HUMALOG KWIKPEN INSULIN) 100 unit/mL Inject 5 units with meals TID plus SS#2 (2 units for every 50 over 150) (~ 1 units for every 10 grams of carbs) TDD: 30 blood sugar diagnostic (ONETOUCH ULTRA TEST) test strip Test blood sugar(s) 4 times daily. Dx: Type2 DM - Controlled E11.9 , Insulin: Yes Lancets (ONETOUCH ULTRASOFT LANCETS) lancets Test blood sugar(s) 4 times daily. Dx: Type 2 DM - Controlled E11.9 , Insulin: Yes famotidine (PEPCID) 20 mg tablet Take 1 tablet by mouth at bedtime as needed. insulin glargine U-300 conc (TOUJEO MAX U-300 SOLOSTAR) 300 unit/mL (3 mL) inpn Inject subcutaneously 100 units daily montelukast (SINGULAIR) 10 mg tablet Take 1 tablet by mouth daily at bedtime. amLODIPine (NORVASC) 5 mg tablet Take 1 tablet by mouth once daily. atenolol (TENORMIN) 50 mg tablet Take 1 tablet by mouth once daily. atorvastatin (LIPITOR) 20 mg tablet Take 1 tablet by mouth once daily. fenofibrate nanocrystallized (TRICOR) 145 mg tablet Take 1 tablet by mouth once daily. metFORMIN (GLUCOPHAGE) 1,000 mg tablet Take 1 tablet by mouth two times a day with meals. losartan (COZAAR) 100 mg tablet TAKE ONE-HALF TABLET BY MOUTH ONCE DAILY Insulin Bradford, Disposable, (BD ULTRAFINE III MINI PEN) 31 gauge x 3/16 Use with insulin injection 2 times daily glucagon (GLUCAGON EMERGENCY KIT, HUMAN,) 1 mg injection Inject (1)one mg for insulin shock. Blood-Glucose Meter,Continuous (DEXCOM G6 [employer]AL SCIENCE TEACHER) misc 1 Each continuous. ondansetron orally disintegrating (ZOFRAN ODT) 4 mg disintegrating tablet Take 1 tablet by mouth every 6 hours as needed for nausea/vomiting. celecoxib (CELEBREX) 200 mg capsule Take 200 mg by mouth every morning. diclofenac (VOLTAREN) 1 % topical gel Apply 2 g to affected area four times daily. triamcinolone acetonide (NASACORT AQ) 55 mcg nasal inhaler Use 2 Sprays in the nose once daily. aspirin, enteric coated (ASPIRIN, ENTERIC COATED) 81 mg EC tablet Take 1 tablet by mouth once daily. FAMILY HISTORY Problem Relation Age of Onset Hypertension Mother Breast Cancer Mother other (raynaud) Mother Parkinson s Disease Father Hyperlipidemia Father Arthritis Father Breast Cancer Maternal Grandmother other (Thrombosis) Maternal Grandfather COPD Paternal Grandmother Coronary Artery Disease Paternal Grandmother Coronary Artery Disease Paternal Grandfather other (Tensas Disease) Maternal Aunt Cervical Cancer Paternal Aunt Heart Paternal Aunt Factor 5 Leiden Paternal cousin Social History Tobacco Use Smoking status: Every Day Current packs/day: 0.50 Average packs/day: 0.5 packs/day for 31.0 years (15.5 ttl pk-yrs) Types: Cigarettes Smokeless tobacco: Never Vaping Use Vaping status: Never Used Substance Use Topics Alcohol use: No Drug use: No PHYSICAL EXAM BP 132/82 Pulse 82 Resp 16 Wt 88 kg (194 lb) SpO2 98% BMI 32.28 kg/m General Appearance: well appearing, in no acute distress, alert Eyes: conjunctiva pink and moist, no icterus, sclera white, non-injected Neck: Thyroid normal size and symmetric without palpable nodules, Neck supple, No adenopathy Lymph nodes: No cervical lymphadenopathy and No supraclavicular lymphadenopathy Lungs: Lungs clear to auscultation. No wheezing, rhonchi, rales. Heart: RRR without murmur, gallop, or rubs. No ectopy Health maintenance reviewed with patient: Cervical Cancer Screening due on 11/30/2014 Diabetic Foot Exam due on 06/12/2022 BP Controlled (<130/80) due on 09/11/2022 Covid-19 Vaccine(4 - season) due on 11/27/2023 Influenza Vaccine(1) due on 11/27/2023 Mammogram Screening due on 05/03/2024 Hepatitis B Vaccine(1 of 3 - 19+ 3-dose series) due on 01/07/2024 Colorectal Cancer Screening due on 01/07/2024 Shingrix Vaccine(1 of 2) due on 01/07/2024 HbA1C due on 02/10/2024 Urine Albumin:Creatinine Ratio due on 03/26/2024 LDL Cholesterol due on 03/26/2024 DTaP,Tdap,Td Vaccine(2 - Td or Tdap) due on 03/28/2024 Dilated Retinal Exam due on 05/31/2024 Annual PCP Team Chronic Disease Visit due on 11/09/2024 Pneumococcal Vaccine(4 of 4 - PPSV23 or PCV20) due on 2034 Hepatitis C Screening Completed HIV Screening Completed EKG Interpretation: RHYTHM: Normal sinus rhythm at 73 beats per minute AXIS: Normal axis INTERVALS: Normal NM interval QRS COMPLEX: Normal ST SEGMENT: Normal ST-T segments QT INTERVAL: Normal COMPARED WITH PRIOR: unchanged DATA REVIEWED: No new labs ASSESSMENT/PLAN: 1. Palpitations - ICD9: 785.1, ICD10: R00.2 (primary diagnosis) Probable result of enbrel but still with some shortness of breath and increase in chronic palpitations. Need to get updated ECHO and will do zio along with checking for other etiology or electrolyte imbalance. - follow up in 4 weeks - go to ER for any increase/worsening of symptoms, chest pain, or any urgent concern, - ECG COMPLETE - ECHO - PERFLUTREN LIPID MICROSPHERES 1.1 MG/ML INJECTION IN NS 10 ML - SODIUM CHLORIDE 0.9 % (FLUSH) INJECTION SYRINGE - COMPREHENSIVE METABOLIC PANEL - COMPLETE BLOOD COUNT - MAGNESIUM - THYROID STIMULATING HORMONE - OUTSIDE VENDOR CARDIAC OUTPATIENT EXTENDED RHYTHM RECORDING (WITHOUT TELEMETRY) 2. Shortness of breath - ICD9: 786.05, ICD10: R06.02 As above - ECG COMPLETE - ECHO - PERFLUTREN LIPID MICROSPHERES 1.1 MG/ML INJECTION IN NS 10 ML - SODIUM CHLORIDE 0.9 % (FLUSH) INJECTION SYRINGE - COMPREHENSIVE METABOLIC PANEL - COMPLETE BLOOD COUNT - MAGNESIUM - THYROID STIMULATING HORMONE - OUTSIDE VENDOR CARDIAC OUTPATIENT EXTENDED RHYTHM RECORDING (WITHOUT TELEMETRY) 3. Pre-syncope - ICD9: 780.2, ICD10: R55 See #1 - ECG COMPLETE - ECHO - PERFLUTREN LIPID MICROSPHERES 1.1 MG/ML INJECTION IN NS 10 ML - SODIUM CHLORIDE 0.9 % (FLUSH) INJECTION SYRINGE - COMPREHENSIVE METABOLIC PANEL - COMPLETE BLOOD COUNT - MAGNESIUM - THYROID STIMULATING HORMONE - OUTSIDE VENDOR CARDIAC OUTPATIENT EXTENDED RHYTHM RECORDING (WITHOUT TELEMETRY) 4. MVP (mitral valve prolapse) - ICD9: 424.0, ICD10: I34.1 Reported, no echo on file. Needs updated. - ECHO - PERFLUTREN LIPID MICROSPHERES 1.1 MG/ML INJECTION IN NS 10 ML - SODIUM CHLORIDE 0.9 % (FLUSH) INJECTION SYRINGE 5. Type 2 diabetes mellitus with diabetic nephropathy, with long-term current use of insulin ([facility]) - ICD9: 250.40, 583.81, V58.67, ICD10: E11.21, Z79.4 - Uncontrolled - keep scheduled appointment with endocrinology because with the high needs of insulin without control, she may need an insulin pump. Will go ahead and slightly increase short acting insulin with sliding scale. - Continue current medications - Blood glucose monitoring on a continuous glucose monitoring schedule - Counseled on healthy diet and regular exercise - Discussed need for and benefit of weight loss. BMI 32.28 kg/(m^2) Prescription instructions reviewed with patient as applicable. Potential red flag symptoms discussed with the patient. Reviewed appropriate action plan to take if red flag symptoms occur. Patient agreeable to treatment plan. Gela Medina APRN.CNP documented in this encounterPromedica [facility]ost[facility]08-15-[facility] History of Present illness Narrative* Gela Medina APRN.CNP - 11/10/2023 1:37 PM EDT CC: Patient presents with: Recheck: 3 month follow up HPI Jarod Rodarte is a 53 year old female who presents today for routine follow up. DIABETES MELLITUS: Ms. Rodarte denies excessive thirst or increased frequency of urination, chest pain or dyspnea , numbness, tingling or pain in extremities, new or unusual visual symptoms, low sugar/hypoglycemic reactions, weight loss/gain, lightheadedness/dizziness, and bowel changes/loose stools. Follows a diabetic diet most of the time. She is compliant with medication(s) and is tolerating med(s) without any side effects. Restarted her ozempic at 0.5mg weeks ago that she had leftover and tolerating well. She reports checking her glucose on a CGM with sugars in the 140s range. Patient's last HgA1C was Hemoglobin A1C (%) Date Value 03/26/2023 7.0 01/06/2023 6.3 01/12/2021 7.9 07/17/2020 8.2 Hemoglobin A1C (POCT) (%) Date Value 04/14/2022 8.5 ) Last Ophthalmology exam was within the past 12 months HTN and HLD: Ms. Rodarte indicates that she is feeling well and denies any symptoms referable to elevated blood pressure. Specifically denies headache, chest pain, palpitations, dyspnea, and peripheral edema. Patient denies any side effects of her medication(s) and is compliant with their regimen. She does not check BP's generally. Jarod denies regular aerobic exercise but stays physically active with caring for mother and grandchildren. She watches her diet for sodium, low fat and low cholesterol most of the time. Last 3 Encounter BP Readings: Date: BP: 11/10/2023 132/80 08/08/2023 132/66 06/07/2023 142/82 REVIEW OF SYSTEMS See HPI PAST MEDICAL HISTORY No date: De Quervain's tenosynovitis, bilateral No date: Depression with anxiety No date: Diabetes (HCC) No date: Fibromyalgia No date: Hypercholesterolemia No date: Hypertension No date: IBS (irritable bowel syndrome) No date: Raynaud's disease No date: Restless legs syndrome (RLS) PAST SURGICAL HISTORY No date: CONE OF CERVIX LOOPELEC EXCIS No date: EXTRACTION, ERUPTED TOOTH OR EXPOSED ROOT (ELEVATION AND/OR FORCEPS REMOVAL) Comment: [place] teeth x 4 No date: HYSTERECTOMY HX Comment: precervical cancer, removed cervix No date: KNEE SURGERY HX Comment: 4x right and left x4 ALLERGIES Jardiance [Empagliflozin], Penicillin G, Requip [Ropinirole], and Wellbutrin [Bupropion Hcl] MEDICATIONS ENBREL SURECLICK 50 mg/mL (1 mL) Inject 50mg under the skin once a week semaglutide (OZEMPIC) 0.25 mg or 0.5 mg (2 mg/3 mL) pen Inject 0.5 mg subcutaneously one time a week. venlafaxine ER (EFFEXOR XR) 150 mg 24 hr capsule Take 1 capsule by mouth once daily. gabapentin (NEURONTIN) 100 mg capsule Take 1 capsule by mouth two times a day for 180 days. Take one in AM and one in afternoon. Take the 300mg before bed. gabapentin (NEURONTIN) 300 mg capsule Take 1 capsule by mouth daily at bedtime for 180 days. omeprazole (PRILOSEC) 40 mg capsule Take 1 capsule by mouth once daily. venlafaxine ER (EFFEXOR XR) 75 mg 24 hr capsule Take 1 capsule by mouth once daily. ferrous sulfate 325 mg (65 mg iron) tablet Take 1 tablet by mouth every other day. pramipexole (MIRAPEX) 0.125 mg tablet take 1 tablet by mouth every evening if needed for RESTELESS LEGS pramipexole (MIRAPEX) 0.5 mg tablet Take 1 tablet by mouth once daily. naproxen (NAPROSYN) 500 mg tablet Take 1 tablet by mouth two times a day as needed. dexAMETHasone (DECADRON) 1 mg tablet Take the tablet at 11 pm and go for labs the next morning on fasting at 8 am Blood-Glucose Transmitter (DEXCOM G6 TRANSMITTER) catracho Change transmitter every 3 months - continuous glucose monitor, multiple insulin injections E-11.9 Blood-Glucose Transmitter (DEXCOM G6 TRANSMITTER) catracho 1 Each continuous. venlafaxine XR (EFFEXOR XR) 225 mg tablet Take 1 tablet by mouth once daily. hydrOXYzine HCl (ATARAX) 25 mg tablet Take 1 tablet by mouth three times a day as needed for anxiety. Blood-Glucose Sensor (DEXCOM G6 SENSOR) catracho Change sensor every 10 days. USE FOR CONTINUOUS GLUCOSE MONITORING. MULTIPLE INSULIN INJECTIONS. E11.9 insulin lispro (HUMALOG KWIKPEN INSULIN) 100 unit/mL Inject 5 units with meals TID plus SS#2 (2 units for every 50 over 150) (~ 1 units for every 10 grams of carbs) TDD: 30 blood sugar diagnostic (ONETOUCH ULTRA TEST) test strip Test blood sugar(s) 4 times daily. Dx: Type2 DM - Controlled E11.9 , Insulin: Yes Lancets (ONETOUCH ULTRASOFT LANCETS) lancets Test blood sugar(s) 4 times daily. Dx: Type 2 DM - Controlled E11.9 , Insulin: Yes famotidine (PEPCID) 20 mg tablet Take 1 tablet by mouth at bedtime as needed. insulin glargine U-300 conc (TOUJEO MAX U-300 SOLOSTAR) 300 unit/mL (3 mL) inpn Inject subcutaneously 100 units daily montelukast (SINGULAIR) 10 mg tablet Take 1 tablet by mouth daily at bedtime. amLODIPine (NORVASC) 5 mg tablet Take 1 tablet by mouth once daily. atenolol (TENORMIN) 50 mg tablet Take 1 tablet by mouth once daily. atorvastatin (LIPITOR) 20 mg tablet Take 1 tablet by mouth once daily. fenofibrate nanocrystallized (TRICOR) 145 mg tablet Take 1 tablet by mouth once daily. metFORMIN (GLUCOPHAGE) 1,000 mg tablet Take 1 tablet by mouth two times a day with meals. losartan (COZAAR) 100 mg tablet TAKE ONE-HALF TABLET BY MOUTH ONCE DAILY Insulin Bradford, Disposable, (BD ULTRAFINE III MINI PEN) 31 gauge x 3/16 Use with insulin injection 2 times daily glucagon (GLUCAGON EMERGENCY KIT, HUMAN,) 1 mg injection Inject (1)one mg for insulin shock. Blood-Glucose Meter,Continuous (DEXCOM G6 NAVAL SCIENCE TEACHER) misc 1 Each continuous. ondansetron orally disintegrating (ZOFRAN ODT) 4 mg disintegrating tablet Take 1 tablet by mouth every 6 hours as needed for nausea/vomiting. celecoxib (CELEBREX) 200 mg capsule Take 200 mg by mouth every morning. diclofenac (VOLTAREN) 1 % topical gel Apply 2 g to affected area four times daily. triamcinolone acetonide (NASACORT AQ) 55 mcg nasal inhaler Use 2 Sprays in the nose once daily. aspirin, enteric coated (ASPIRIN, ENTERIC COATED) 81 mg EC tablet Take 1 tablet by mouth once daily. FAMILY HISTORY Problem Relation Age of Onset Hypertension Mother Breast Cancer Mother other (raynaud) Mother Parkinson s Disease Father Hyperlipidemia Father Arthritis Father Breast Cancer Maternal Grandmother other (Thrombosis) Maternal Grandfather COPD Paternal Grandmother Coronary Artery Disease Paternal Grandmother Coronary Artery Disease Paternal Grandfather other ([place]ens[place] Disease) Maternal Aunt Cervical Cancer Paternal Aunt Heart Paternal Aunt Factor 5 Leiden Paternal cousin Social History Tobacco Use Smoking status: Every Day Packs/day: 0.50 Years: 31.00 Additional pack years: 0.00 Total pack years: 15.50 Types: Cigarettes Smokeless tobacco: Never Vaping Use Vaping Use: Never used Substance Use Topics Alcohol use: No Drug use: No PHYSICAL EXAM BP 132/80 Pulse 72 Resp 16 Wt 86.2 kg (190 lb) SpO2 96% BMI 31.62 kg/m General Appearance: well appearing, in no acute distress, alert Eyes: conjunctiva pink and moist, no icterus, sclera white, non-injected Lungs: Lungs clear to auscultation. No wheezing, rhonchi, rales. Heart: RRR without murmur, gallop, or rubs. No ectopy Health maintenance reviewed with patient: Cervical Cancer Screening due on 11/30/2016 Diabetic Foot Exam due on 06/12/2022 BP Controlled (<130/80) due on 09/11/2022 HbA1C due on 09/25/2023 Mammogram Screening due on 05/03/2024 Hepatitis B Vaccine(1 of 3 - 19+ 3-dose series) due on 01/07/2024 Colorectal Cancer Screening due on 01/07/2024 Shingrix Vaccine(1 of 2) due on 01/07/2024 Covid-19 Vaccine(4 - season) due on 01/07/2024 Influenza Vaccine(1) due on 11/27/2023 Urine Albumin:Creatinine Ratio due on 03/26/2024 LDL Cholesterol due on 03/26/2024 DTaP,Tdap,Td Vaccine(2 - Td or Tdap) due on 03/28/2024 Dilated Retinal Exam due on 05/31/2024 Annual PCP Team Chronic Disease Visit due on 08/07/2024 Pneumococcal Vaccine(3 of 3 - PPSV23 or PCV20) due on 2034 Hepatitis C Screening Completed HIV Screening Completed DATA REVIEWED: Most recent labs ASSESSMENT/PLAN: 1. Type 2 diabetes mellitus with diabetic nephropathy, with long-term current use of insulin (HCC) - ICD9: 250.40, 583.81, V58.67, ICD10: E11.21, Z79.4 (primary diagnosis) - Uncontrolled - Continue current medications - ozempic refilled as requested - unable to trend glucose past 24 hours on CGM. Patient to contact company to see what can be done to fix this. Until then patient to keep a journal of readings and contact in 4 weeks to update how they are doing. - Blood glucose monitoring on a continuous glucose monitoring schedule - Counseled on healthy diet and regular exercise - Discussed need for and benefit of weight loss. BMI 31.62 kg/(m^2) - SEMAGLUTIDE 0.25 MG OR 0.5 MG (2 MG/3 ML) SUBCUTANEOUS PEN INJECTOR - HEMOGLOBIN A1C (POC) - HEMOGLOBIN A1C - COMPLETE BLOOD COUNT - COMPREHENSIVE METABOLIC PANEL 2. Essential hypertension - ICD9: 401.9, ICD10: I10 - Controlled - Continue current medications - Recommend home blood pressure monitoring, to bring results to next visit - Encouraged sodium restriction, DASH or Mediterranean diet - Recommend regular aerobic exercise - COMPLETE BLOOD COUNT - COMPREHENSIVE METABOLIC PANEL 3. Hyperlipidemia, unspecified hyperlipidemia type - ICD9: 272.4, ICD10: E78.5 - Control undetermined, due for labs - Continue current medications - Counseled on healthy diet and regular exercise - Discussed need for and benefit of weight loss. BMI 31.62 kg/(m^2) - LIPID PANEL BASIC - COMPREHENSIVE METABOLIC PANEL Prescription instructions reviewed with patient as applicable. Potential red flag symptoms discussed with the patient. Reviewed appropriate action plan to take if red flag symptoms occur. Patient agreeable to treatment plan. Gela Medina APRN.CNP documented in this encounterPromed[facility]08-07-2024 Telephone encounter Note * Telephone Encounter - Laila Caraballo RN - 11/02/2023 1:27 PM EDT Already addressed. [id number] Miscellaneous Notes* Telephone Encounter - Laila Caraballo RN - 11/02/2023 1:27 PM EDT Already addressed. * Telephone Encounter - Yodit Martini - 11/01/2023 10:14 AM EDT Medication: Enbrel 50mg/ml Dosing Schedule:50mg once a week Prior Authorization: Submitted date: 11.11.2023 [place] reference #:[id number] Approval dates: 10.31.2023-10.29.2024 Total Copay: $ 0 Specialty Pharmacy: [facility] [phone] documented in this encounterSMansfield [id number] Telephone encounter Note* Telephone Encounter - Yodit Martini - 11/01/2023 10:14 AM EDT Medication: Enbrel 50mg/ml Dosing Schedule:50mg once a week Prior Authorization: Submitted date: 11.11.2023 [place] reference #:[id number] Approval dates: 10.31.2023-10.29.2024 Total Copay: $ 0 Specialty Pharmacy: [facility] [phone] [id number] Miscellaneous Notes* Telephone Encounter - Yodit Martini - 11/01/2023 10:14 AM EDT Medication: Enbrel 50mg/ml Dosing Schedule:50mg once a week Prior Authorization: Submitted date: 11.11.2023 [place] reference #:[id number] Approval dates: 10.31.2023-10.29.2024 Total Copay: $ 0 Specialty Pharmacy: [facility] [phone] documented in this encounterSMansfield [id number] Telephone encounter Note* Telephone Encounter - Madeline Omalley MA - 10/28/2023 11:37 AM EDT Messaged pt to call or message to be seen sooner appt. [id number] Miscellaneous Notes* Telephone Encounter - Madeline Omalley MA - 10/28/2023 11:37 AM EDT Messaged pt to call or message to be seen sooner appt. * Telephone Encounter - Laila Caraballo RN - 10/25/2023 1:17 PM EDT Medication: nabumetone 750mg bid Refills: 08/26/23 60 + 1 misischia LARA: 08/09/23 misischia/ Previously prescribed Naprosyn by another provider. I have asked her to tryto use 1 or 2 [id number] naproxen sodium each evening with food and if effective, let us knowand I can send her in a new prescription for Naprosyn Otherwise consider a different NSAID. 08/25/23 TE misischia/ Aleve did not work for her pain. Pt states the pain is so bad that she wakes up during the night. Will try a different NSAID called nabumetone NOV: 3 months/ 02/01/24 Labs: 10/19/23 another provider Refilled 90 days + 0 refills documented in this encounterSMansfield [id number] Telephone encounter Note* Telephone Encounter - Laila Caraballo RN - 10/25/2023 1:17 PM EDT Medication: nabumetone 750mg bid Refills: 08/26/23 60 + 1 misischia LARA: 08/09/23 misischia/ Previously prescribed Naprosyn by another provider. I have asked her to tryto use 1 or 2 [id number] naproxen sodium each evening with food and if effective, let us knowand I can send her in a new prescription for Naprosyn Otherwise consider a different NSAID. 08/25/23 TE misischia/ Aleve did not work for her pain. Pt states the pain is so bad that she wakes up during the night. Will try a different NSAID called nabumetone NOV: 3 months/ 02/01/24 Labs: 10/19/23 another provider Refilled 90 days + 0 refills [id number] Telephone encounter Note* Telephone Encounter - Oliva Bravo RN - 10/24/2023 10:33 AM EDT Patient requesting refill of her Ozempic as pended. The patient has been identified by name and date of : Yes Caregiver verified no other encounters exist for this prescription request: Yes Caregiver confirmed with patient/requestor that no other refills are due, in the near future, with this provider at this time: Yes The last office visit in the department: 08/08/2023 Does the patient have a future office visit with this provider/department: Yes 11/10/2023 Requested Prescriptions Pending Prescriptions Disp Refills semaglutide (OZEMPIC) 0.25 mg or 0.5 mg (2 mg/3 mL) pen 9 mL 3 Sig: Inject 0.5 mg subcutaneously one time a week. Oliva Bravo RN October 24, 2023 10:41 AM [facility]07-29-2024 Miscellaneous Notes* Telephone Encounter - Oliva Bravo RN - 10/24/2023 10:33 AM EDT Patient requesting refill of her Ozempic as pended. The patient has been identified by name and date of : Yes Caregiver verified no other encounters exist for this prescription request: Yes Caregiver confirmed with patient/requestor that no other refills are due, in the near future, with this provider at this time: Yes The last office visit in the department: 08/08/2023 Does the patient have a future office visit with this provider/department: Yes 11/10/2023 Requested Prescriptions Pending Prescriptions Disp Refills semaglutide (OZEMPIC) 0.25 mg or 0.5 mg (2 mg/3 mL) pen 9 mL 3 Sig: Inject 0.5 mg subcutaneously one time a week. Oliva Bravo RN October 24, 2023 10:41 AM documented in this encounterPromedica [facility]07-23-2024 Telephone encounter Note * Telephone Encounter - Estephania Saeed LPN - 10/18/2023 9:00 AM EDT The patient has been identified by name and date of : Yes Pharmacy Caregiver verified no other encounters exist for this prescription request: Yes Caregiver confirmed with patient/requestor that no other refills are due, in the near future, with this provider at this time: Yes The last office visit in the department: 08/08/2023 Does the patient have a future office visit with this provider/department: Yes 11/10/2023 Requested Prescriptions Pending Prescriptions Disp Refills venlafaxine ER (EFFEXOR XR) 150 mg 24 hr capsule 30 capsule 5 Sig: Take 1 capsule by mouth once daily. Estephania Saeed LPN October 18, 2023 9:01 AM [facility]07-23-[facility]24 Miscellaneous Notes* Telephone Encounter - Estephania Saeed LPN - 10/18/2023 9:00 AM EDT The patient has been identified by name and date of : Yes Pharmacy Caregiver verified no other encounters exist for this prescription request: Yes Caregiver confirmed with patient/requestor that no other refills are due, in the near future, with this provider at this time: Yes The last office visit in the department: 08/08/2023 Does the patient have a future office visit with this provider/department: Yes 11/10/2023 Requested Prescriptions Pending Prescriptions Disp Refills venlafaxine ER (EFFEXOR XR) 150 mg 24 hr capsule 30 capsule 5 Sig: Take 1 capsule by mouth once daily. Estephania Saeed LPN October 18, 2023 9:01 AM documented in this encounterPromedica [facility]06-19-2024 Telephone encounter Note * Telephone Encounter - Anjelica Morales RN - 09/14/2023 1:22 PM EDT The patient has been identified by name and date of : Yes Caregiver verified no other encounters exist for this prescription request: Yes Caregiver confirmed with patient/requestor that no other refills are due, in the near future, with this provider at this time: Yes The last office visit in the department: 08/08/2023 Does the patient have a future office visit with this provider/department: Yes 11/10/2023 Requested Prescriptions Pending Prescriptions Disp Refills gabapentin (NEURONTIN) 100 mg capsule 180 capsule 1 Sig: Take 1 capsule by mouth two times a day for 180 days. Take one in AM and one in afternoon. Take the 300mg before bed. gabapentin (NEURONTIN) 300 mg capsule 90 capsule 1 Sig: Take 1 capsule by mouth daily at bedtime for 180 days. omeprazole (PRILOSEC) 40 mg capsule 90 capsule 1 Sig: Take 1 capsule by mouth once daily. Anjelica Morales RN September 14, 2023 1:23 PM [facility]06-19-2024 Miscellaneous Notes* Telephone Encounter - Anjelica Morales RN - 09/14/2023 1:22 PM EDT The patient has been identified by name and date of : Yes Caregiver verified no other encounters exist for this prescription request: Yes Caregiver confirmed with patient/requestor that no other refills are due, in the near future, with this provider at this time: Yes The last office visit in the department: 08/08/2023 Does the patient have a future office visit with this provider/department: Yes 11/10/2023 Requested Prescriptions Pending Prescriptions Disp Refills gabapentin (NEURONTIN) 100 mg capsule 180 capsule 1 Sig: Take 1 capsule by mouth two times a day for 180 days. Take one in AM and one in afternoon. Take the 300mg before bed. gabapentin (NEURONTIN) 300 mg capsule 90 capsule 1 Sig: Take 1 capsule by mouth daily at bedtime for 180 days. omeprazole (PRILOSEC) 40 mg capsule 90 capsule 1 Sig: Take 1 capsule by mouth once daily. Anjelica Morales RN September 14, 2023 1:23 PM documented in this encounterPromedica Fost[facility]05-28-2024 Telephone encounter Note * Telephone Encounter - Oz Elkins RN - 08/23/2023 2:44 PM EDT Darius Blair phoned to request refill again. And reviewed below notes with Gracie. Gracie reports they sync patient's meds, and do not need the 150 mg at this time, only need the 75 mg of venlafaxine. [facility]05-28-2024 Miscellaneous Notes* Telephone Encounter - Oz Elkins RN - 08/23/2023 2:44 PM EDT GracieElvira Blair phoned to request refill again. And reviewed below notes with Gracie. Gracie reports they sync patient's meds, and do not need the 150 mg at this time, only need the 75 mg of venlafaxine. * Telephone Encounter - Sharon Mendez LPN - 08/19/2023 3:06 PM EDT Patient is needing 150 mg and the 75 mg of Effexor. Sharon Mendez LPN * Telephone Encounter - Gela Medina APRN.HAYLEE - 08/19/2023 12:21 PM EDT There are 3 different doses of venlafaxine. What exactly is she taking and needing a refill of? Thank you Gela Medina APRN.AERIAL PHOTOGRAMMETRIST * Telephone Encounter - Oliva Bravo RN - 08/19/2023 11:44 AM EDT Pharmacy phones for refill(s): Requested Prescriptions Pending Prescriptions Disp Refills venlafaxine ER (EFFEXOR XR) 75 mg 24 hr capsule 30 capsule 5 Sig: Take 1 capsule by mouth once daily. ferrous sulfate 325 mg (65 mg iron) tablet 45 tablet 1 Sig: Take 1 tablet by mouth every other day. Date of last office visit in primary care: 08/08/2023 Date of next office visit in primary care: 11/10/2023 Oliva Bravo RN. [facility] encounter Note * Telephone Encounter - Sharon Mendez LPN - 08/19/2023 3:06 PM EDT Patient is needing 150 mg and the 75 mg of Effexor. Sharon Mendez LPN [facility]05-24-[facility]24 Telephone encounter Note* Telephone Encounter - Gela Medina APRN.CNP - 08/19/2023 12:21 PM EDT There are 3 different doses of venlafaxine. What exactly is she taking and needing a refill of? Thank you Gela Medina APRN.AERIAL PHOTOGRAMMETRIST [facility]05-24-[facility]24 Telephone encounter Note* Telephone Encounter - Oliva Bravo RN - 08/19/2023 11:44 AM EDT Pharmacy phones for refill(s): Requested Prescriptions Pending Prescriptions Disp Refills venlafaxine ER (EFFEXOR XR) 75 mg 24 hr capsule 30 capsule 5 Sig: Take 1 capsule by mouth once daily. ferrous sulfate 325 mg (65 mg iron) tablet 45 tablet 1 Sig: Take 1 tablet by mouth every other day. Date of last office visit in primary care: 08/08/2023 Date of next office visit in primary care: 11/10/2023 Oliva Bravo RN. [facility]05-24-[facility] Telephone encounter Note* Telephone Encounter - Laila Caraballo RN - 08/19/2023 11:35 AM EDT Medication: celecoxib 200mg qd Refills: 05/26/23 28 + 2 misischia LARA: 08/09/23 misischia/ Previously prescribed Naprosyn by another provider. I have asked her to tryto use 1 or 2 [id number] naproxen sodium each evening with food and if effective, let us knowand I can send her in a new prescription for Naprosyn. Otherwise consider a different NSAID. NOV: 4 months/ 01/25/24 Med not mentioned in note, was on med list. Pended 30 days + 0 refills [id number] Miscellaneous Notes* Telephone Encounter - Laila Caraballo RN - 08/19/2023 11:35 AM EDT Medication: celecoxib 200mg qd Refills: 05/26/23 28 + 2 misischia LARA: 08/09/23 misischia/ Previously prescribed Naprosyn by another provider. I have asked her to tryto use 1 or 2 [id number] naproxen sodium each evening with food and if effective, let us knowand I can send her in a new prescription for Naprosyn. Otherwise consider a different NSAID. NOV: 4 months/ 01/25/24 Med not mentioned in note, was on med list. Pended 30 days + 0 refills documented in this encounterSMansfield [id number] History of Present illness Narrative* Josiah Dudley DO - 08/09/2023 4:00 PM EDT CHIEF COMPLAINT: Chief Complaint Patient presents with Follow-up RA HPI: This 52-year-old female presents today for follow-up of her seronegative rheumatoid arthritis. At last visit she was having a lot of problems with nausea and I adjusted her methotrexate down to 15 mga week and she was supposed to split and take 3 in the morning and 3 in the evening on the same dayeach week. She tells me now that this decreased dose has caused her to have more joint pains and subjective swelling. She especially has pain in her hands and hips. It is worse at night. She also feels like her nausea was previously due to a higher dose of Ozempic and this has been adjusted and sheis feeling better. She wants to go back up on her methotrexate. Continues to take hydroxychloroquine and tolerating well at 400 mg daily. She was seen at the [facility] in May of this year and showed no signs of toxicity. Allergies Allergen Reactions Penicillins Anaphylaxis Bupropion Other Seizure and hives Empagliflozin Hives Ropinirole Seizure Current Outpatient Medications Medication Sig Dispense Refill amLODIPine (Norvasc) 5 MG tablet Take 5 mg by mouth in the morning. aspirin 81 MG EC tablet Take 81 mg by mouth in the morning. atenolol (Tenormin) 50 MG tablet Take 50 mg by mouth in the morning. atorvastatin (Lipitor) 20 MG tablet Take 20 mg by mouth in the morning. BD Pen Needle Teetee 2nd Gen 32G X 4 MM [facility] [place] USE TO INJECT INSULIN SUBCUTANEOUSLY TWICE A DAY DIRECTED celecoxib (CeleBREX) 200 MG capsule TAKE 1 CAPSULE BY MOUTH DAILY 28 capsule 2 Continuous Blood Gluc Sensor (Dexcom G6 Sensor) [facility] [place] Use a new sensor every 10 days. Diclofenac Sodium (Voltaren) 1 % gel Apply 2 g topically in the morning and 2 g at noon and 2 g in the evening and 2 g before bedtime. doxycycline (Adoxa) 100 MG tablet Take 100 mg by mouth 2 times daily. Take with a full glass of water and do not lie down for at least 30 minutes after fenofibrate (Tricor) 145 MG tablet Take 145 mg by mouth in the morning. gabapentin (Neurontin) 100 MG capsule Take 100 mg by mouth 2 times daily. gabapentin (Neurontin) 300 MG capsule Take 300 mg by mouth Nightly. glucagon (Gvoke HypoPen) 1 MG/0.2ML injection Inject 1 mg under the skin Once as needed for low blood sugar. Prn for emergency hydroxychloroquine (Plaquenil) 200 MG tablet Take 2 tablets (400 mg) by mouth daily. 56 tablet 5 insulin glargine (Lantus) 100 UNIT/ML pen Inject 67 Units under the skin in the morning and 67 Units in the evening. Insulin Glargine (TOUJEO MAX SOLOSTAR SC) Inject 112 Units under the skin every morning. Insulin Lispro (Humalog) 100 UNIT/ML solution injection Inject 5 Units under the skin. Sliding scale losartan (Cozaar) 100 MG tablet Take 0.5 tablets by mouth in the morning. metFORMIN (Glucophage) 1000 MG tablet Take 1 tablet by mouth in the morning and 1 tablet in the evening. Take with meals. montelukast (Singulair) 10 MG tablet Take 1 tablet by mouth Nightly. omeprazole (PriLOSEC) [address] capsule Take 1 capsule by mouth every morning (before breakfast). Pennsaid 2 % solution pramipexole (Mirapex) 0.5 MG tablet Take 0.5 mg by mouth in the morning. Saccharomyces boulardii (probiotic) 250 MG capsule Take 350 mg by mouth daily. semaglutide (Ozempic, 1 MG/DOSE,) 4 MG/3ML solution pen-injector Inject 1 mg under the skin once a week. triamcinolone (Nasacort) 55 MCG/ACT nasal inhaler Administer 2 sprays into affected nostril(s) in the morning. Unifine Pentips 31G X 5 MM misc venlafaxine XR (Effexor XR) 150 MG 24 hr capsule Take 150 mg by mouth in the morning. folic acid (Folvite) 1 MG tablet Take 3 tablets (3,000 mcg) by mouth daily. 90 tablet 11 gabapentin (Neurontin) 100 MG capsule Take 100 mg by mouth in the morning and 100 mg in the evening. gabapentin (Neurontin) 300 MG capsule Take 300 mg by mouth. glucose blood (Frevvo Ultra) test strip Use to test blood sugars twice daily as instructed HYDROcodone-acetaminophen (Freeland) 5-325 MG tablet Take 1 tablet by mouth every 6 hours as needed. methotrexate 2.5 MG tablet Take 7 tablets (17.5 mg total) by mouth every 7 days. Take 4 tablets in the morning and 3 tablets in the evening on the same day each week 28 tablet 2 semaglutide (Ozempic, 0.25 or 0.5 MG/DOSE,) 2 MG/1.5ML solution pen-injector 0.5mg weekly No current facility-administered medications for this visit. Past Medical History: Diagnosis Date Chronic pain syndrome Depression Diabetes 1.5, managed as type 2 (HCC) Fibromyalgia syndrome Gastroesophageal reflux disease Hyperlipidemia Hypertension Irritable bowel syndrome Moderate smoker (20 or less per day) Proteinuria Raynaud's syndrome Restless leg syndrome Tendinitis of thumb Thrombocytosis Tobacco abuse History reviewed. No pertinent surgical history. No family history on file. Social History Socioeconomic History Marital status: Spouse name: Not on file Number of children: Not on file Years of education: Not on file Highest education level: Not on file Occupational History Not on file Tobacco Use Smoking status: Every Day Types: Cigarettes Smokeless tobacco: Never Vaping Use Vaping Use: Never used Substance and Sexual Activity Alcohol use: Never Drug use: Never Sexual activity: Not on file Other Topics Concern Not on file Social History Narrative Not on file Social Determinants of Health Financial Resource Strain: Not on file Food Insecurity: Not on file Transportation Needs: Not on file Physical Activity: Not on file Stress: Not on file Social Connections: Not on file Intimate Partner Violence: Not on file Housing Stability: Not on file ROS: Review of Systems THE ROS IS NEGATIVE EXCEPT FOR NOTED IN HPI OBJECTIVE: Physical Exam Constitutional: Appearance: Normal appearance. HENT: Mouth/Throat: Pharynx: Oropharynx is clear. Eyes: Conjunctiva/sclera: Conjunctivae normal. Cardiovascular: Rate and Rhythm: Normal rate and regular rhythm. Pulses: Normal pulses. Heart sounds: Normal heart sounds. Pulmonary: Effort: Pulmonary effort is normal. Breath sounds: Normal breath sounds. Musculoskeletal: General: No swelling or tenderness. Comments: Patient does show some evidence of synovitis in her second and third PIP joints bilaterally with tenderness there as well as across her MCPs and with flexion and extension of the wrist. Some tenderness with movement of hips as well. MTPs are tender to squeeze Skin: Findings: No erythema or rash. Neurological: General: No focal deficit present. Mental Status: She is alert. Psychiatric: Mood and Affect: Mood normal. Joint Exam 08/09/2023 No joint exam has been documented for this visit Visit Vitals BP (!) 149/85 (BP Location: Left arm, Patient Position: Sitting, BP Cuff Size: Large adult) Pulse 80 LABS/DATA: Labs from 07/29/2023 show white count 9.2 hemoglobin 13.7 platelets 477 K. Creatinine 0.77 AST 19 ALT18 ASSESSMENT/PLAN: Problem List Items Addressed This Visit None Visit Diagnoses Rheumatoid arthritis of 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 ([facility] ([facility] The patient does have some synovitis and increased pain since the decreased dose of methotrexate. Will have her go back up to 17.5 mg and take 4 tablets in the morning and 3 tablets in the evening 1 day a week and continue folic acid 3 mg a day. If she does not have any problems with this, we will try to go back to 20 mg of methotrexate weekly. Update labs again in 4 weeks and [facility] Orders for the labs were given to her today. Previously prescribed Naprosyn by another provider. I have asked her to try to use 1 or 2 vaxg-lqv-labbjto naproxen sodium each evening with food and if effective, let us know and I can send her in anew prescription for Naprosyn. Otherwise consider a different NSAID. Will avoid prednisone based onher diabetes. Relevant Medications methotrexate 2.5 MG tablet On methotrexate therapy CBC and CMP to be repeated in 4 weeks after we increased dose. Plan for follow- up here 3 months after that with a new provider. She will call with any problems between now and then. Relevant Medications folic acid (Folvite) 1 MG tablet Other Relevant Orders Comprehensive metabolic panel CBC Orders Placed This Encounter Procedures Comprehensive metabolic panel Standing Status: Future Number of Occurrences: 1 Standing Expiration Date: 08/08/2024 CBC Standing Status: Future Number of Occurrences: 1 Standing Expiration Date: 08/08/2024 documented in this [facility]05-14-2024 Instructions* Patient Instructions* Josiah Dudley DO - 08/09/2023 4:00 PM EDT Increase your methotrexate to 7 tablets once a week. Take 4 tablets in the morning and 3 tablets inthe evening on the same day each week. Continue folic acid 3 mg a day Orders were given to you today for labs to be done again in approximately 4 weeks to monitor this adjustment and methotrexate. I will contact you with those results Try using msox-hgz-gusbjxd naproxen sodium 1 or 2 tablets each evening with food to see if this helps with your pain. You can do this up to twice a day and if they are effective let me know and I will send in a prescription Plan for follow-up here in approximately 4 months with a new provider. documented in this [facility]04-23-2024 Telephone encounter Note* Telephone Encounter - Sharon Mendez LPN - 07/19/2023 1:27 PM EDT Patient has been identified by name and date of : No Patient phones for refill(s): Requested Prescriptions Pending Prescriptions Disp Refills pramipexole (MIRAPEX) 0.125 mg tablet 90 tablet 3 Sig: take 1 tablet by mouth every evening if needed for RESTELESS LEGS Date of last office visit in primary care: 05/09/2023 Date of next office visit in primary care: 08/08/2023 Please advise. Thank you. Sharon Mendez LPN. [facility]04-23-2024 Miscellaneous Notes* Telephone Encounter - Sharon Mendez LPN - 07/19/2023 1:27 PM EDT Patient has been identified by name and date of : No Patient phones for refill(s): Requested Prescriptions Pending Prescriptions Disp Refills pramipexole (MIRAPEX) 0.125 mg tablet 90 tablet 3 Sig: take 1 tablet by mouth every evening if needed for RESTELESS LEGS Date of last office visit in primary care: 05/09/2023 Date of next office visit in primary care: 08/08/2023 Please advise. Thank you. Sharon Mendez LPN. documented in this encounterProm[facility]04-[facility] Miscellaneous Notes* Telephone Encounter - Sharon Mendez LPN - 07/01/2023 8:17 AM EDT Patient has been identified by name and date of : No Patient phones for refill(s): Requested Prescriptions Pending Prescriptions Disp Refills pramipexole (MIRAPEX) 0.5 mg tablet 90 tablet 1 Sig: Take 1 tablet by mouth once daily. Date of last office visit in primary care: 05/09/2023 Date of next office visit in primary care: 08/08/2023 Please advise. Thank you. Sharon Mendez LPN. documented in this encounterProm[facility]04-02-2024 Miscellaneous Notes* Telephone Encounter - Cathy Dunn MA - 06/28/2023 2:04 PM EDT Returned patient phone call. Patient reports high than normal blood sugars due to high level stressand pain from moving her mother. Patient chooses to use the sliding scale provided with her insulinto lower her blood sugar instead of asking the provider for a different option. Her medication prescription directions were reviewed. Cathy Dunn MA * Telephone Encounter - Fidelina Ricardo RN - 06/28/2023 11:06 AM EDT Patient called. She saw Dr. Gandhi on 06/07/23 and was told to use Toujeo Max 100 units daily and humalog averaging 10 units three times a day. She states that her fasting blood sugars are in the 200's, her 2 hour PP are 240-250, and on it was 400. She states that she does have the Dexcom and thought that it might be malfunctioning, so she did a fingerstick and there was only 2 points difference in the reading. She states that she is under a lot of stress, due to her mother living with her and is in a lot of pain due to her fibromyalgia and the fact that they are currently moving her mother into a [facility]. She is concerned because her sugars have never been this high. She would like to speak with someone in the office. Fidelina Ricardo RN documented in this encounterProm[facility]03-12-[facility]24 Instructions* Patient Instructions* Amada Gandhi MD - 06/07/2023 3:42 PM EDT Please increase the dose of Toujeo to 110 units daily Continue Humalog and correction scale Dexamethasone suppression test: We will proceed with a dexamethasone suppression test to further investigate the high cortisol level. Explanation of the test: To explain it as simply as possible, you take a pill at bedtime and then get blood work the next morning. How does it work? The pill is a steroid medicine (ie - looks like cortisol) If your system for producing cortisol is working normally, then you should not make any cortisol the next morning after taking this medication, as your body gets tricked into thinking there is already enough. If the cortisol is not suppressed, then it means that you could be over- producing cortisol and moretesting may be done to confirm. Directions for dexamethasone suppression test: 1. Take dexamethasone 1-mg tab by mouth at 11 PM the evening before your test. 2. Go to the lab the next morning and have your blood drawn at ~8 AM. *Do not eat or drink anythingother than water from the time you take dexamethasone to the time you get your blood drawn. 3. If either of the following situations happen, DO NOT HAVE YOUR BLOOD DRAWN: A. You forget to take the pill at 11 PM the evening before B. You cannot get your blood drawn the next morning at ~8 AM C. If either situation happens, please call me to let me know documented in this encounterProm[facility]03-12-[facility] History of Present illness Narrative* Cathy Dunn - 06/07/2023 3:12 PM EDT Images from the original note were not included. * Amada Gandhi MD - 06/07/2023 3:06 PM EDT [facility] Initial Clinic Visit Note Referred by: Gela medina APRN.AERIAL PHOTOGRAMMETRIST Chief complaint: Uncontrolled diabetes History of present illness: This is a 52 year old female with MAKAYLA, HTN, HLD, RA, Reynaud's, IBS who is presenting for evaluation and management of diabetes. She is accompanied by her fianc today She was initially diagnosed in 2009 as Type 2, and then diagnosed as MAKAYLA in 03/2022 after antibodies on labs by Katharine Dejesus APRN. AERIAL PHOTOGRAMMETRIST who she was seeing so far since Mar 2022 via [facility] She reports she has not been on steroids for RA or lupus as she knows they can have bad effects on her sugars Denies any micro or macrovascular complications from diabetes Complications: Cardiovascular -- Yes HTN, HLD Statin Use -- Yes Retinopathy -- No Last AZALEA/Retina Eval: last week, May 2023 Nephropathy -- Yes MANDY/ARB Use -- Yes Polyneuropathy -- No Foot Exam: not sure Obesity -- Yes Other -- No . Diabetes Medications -Current regimen: Humalog 5 units with sliding scale starting at 150 mg/dl Toujeo 100 units daily in am Ozempic 1 mg weekly- could not tolerate- now back to 0.5 mg weekly -Misses doses: None She is rotating injection sites but mostly takes in abdomen -Previously Used DM Meds Victoza Metformin . Blood sugars Summary of Personal CGM Findings: may 09, 2023 to June 07, 2023 Type of CGM: Poacht App G7 1) CGM recording is adequate for interpretation. Worn 100% of time. 2) Average glucose is 157 mg/dL. BG range/St. Dev: 31 mg/dL 3) 77% time in range 70-180 mg/dL 4) Total frequency of hypoglycemia: 0% with BG < 70 - Hypoglycemia patterns: 0 - Nocturnal hypoglycemia was NOT noted 5) Hyperglycemic episodes 23% with BG > 180 - Hyperglycemia patterns: throughout day, postprandial spike for lunch and dinner Interpretation: needs more long acting medication, she needs to take medication atkeast 15 mons ahead of starting meal. . Hypoglycemia -Hypoglycemic episodes: not often -Frequency and timing of hypoglycemia: only 2 times in the last 6 months -Hypoglycemia awareness: yes, feels diaphoretic, fogginess, shakiness . Lifestyle -Exercise: no -Diet: 3 meals a day Tries to eat healthy, watches diet closely She has seen diabetes education initially- does not prefer using carb counting - estimates requiredinsulin dosing with portion size . Blood pressure -Today BP: 142/82 -Current antihypertensive therapy: Losartan 100 mg once daily, amlodipine 5 mg once daily, [id number] mg once daily . Lipids -Last lipid panel: 02/2023 -Currently on Statin therapy: Losartan 20 mg once daily -Statin associated side effects: Tolerating well ROS: As per HPI Past Medical History PAST MEDICAL HISTORY Diagnosis Date De Quervain's tenosynovitis, bilateral Depression with anxiety Diabetes (HCC) Fibromyalgia Hypercholesterolemia Hypertension IBS (irritable bowel syndrome) Raynaud's disease Restless legs syndrome (RLS) Past Surgical History PAST SURGICAL HISTORY Procedure Laterality Date CONE OF CERVIX LOOPELEC EXCIS EXTRACTION, ERUPTED TOOTH OR EXPOSED ROOT (ELEVATION AND/OR FORCEPS REMOVAL) [place] teeth x 4 HYSTERECTOMY HX precervical cancer, removed cervix KNEE SURGERY HX 4x right and left x4 Family History FAMILY HISTORY Problem Relation Age of Onset Hypertension Mother Breast Cancer Mother other (raynaud) Mother Parkinson s Disease Father Hyperlipidemia Father Arthritis Father Breast Cancer Maternal Grandmother other (Thrombosis) Maternal Grandfather COPD Paternal Grandmother Coronary Artery Disease Paternal Grandmother Coronary Artery Disease Paternal Grandfather other (Tensas Disease) Maternal Aunt Cervical Cancer Paternal Aunt Heart Paternal Aunt Factor 5 Leiden Paternal cousin Social History Social History Tobacco Use Smoking status: Every Day Packs/day: 0.50 Years: 31.00 Additional pack years: 0.00 Total pack years: 15.50 Types: Cigarettes Smokeless tobacco: Never Vaping Use Vaping Use: Never used Substance Use Topics Alcohol use: No Drug use: No Allergies ALLERGIES Allergen Reactions Jardiance [Empaglif* Other: See Comments Yeast infections Penicillin G Swelling Requip [Ropinirole] Other: See Comments seizures Wellbutrin [Bupropi* Rash Current Medications Current Outpatient Medications Medication Sig Dispense Refill Blood-Glucose Transmitter (DEXCOM G6 TRANSMITTER) catracho Change transmitter every 3 months - continuous glucose monitor, multiple insulin injections E-11.9 1 Each 3 Blood-Glucose Transmitter (DEXCOM G6 TRANSMITTER) catracho 1 Each continuous. 1 Each 0 pramipexole (MIRAPEX) 0.5 mg tablet Take 1 tablet by mouth once daily. 90 tablet 1 omeprazole (PRILOSEC) 40 mg capsule Take 1 capsule by mouth once daily. 90 capsule 1 venlafaxine ER (EFFEXOR XR) 75 mg 24 hr capsule Take 1 capsule by mouth once daily. 30 capsule 5 venlafaxine ER (EFFEXOR XR) 150 mg 24 hr capsule Take 1 capsule by mouth once daily. 30 capsule 5 semaglutide (OZEMPIC) 0.25 mg or 0.5 mg (2 mg/3 mL) pen Inject 0.5 mg subcutaneously one time a week. 9 mL 3 venlafaxine XR (EFFEXOR XR) 225 mg tablet Take 1 tablet by mouth once daily. 30 tablet 1 hydrOXYzine HCl (ATARAX) 25 mg tablet Take 1 tablet by mouth three times a day as needed for anxiety. 30 tablet 1 Blood-Glucose Sensor (ShareMeister G6 SENSOR) catracho Change sensor every 10 days. USE FOR CONTINUOUS GLUCOSE MONITORING. MULTIPLE INSULIN INJECTIONS. E11.9 9 Each 3 insulin lispro (HUMALOG KWIKPEN INSULIN) 100 unit/mL Inject 5 units with meals TID plus SS#2 (2 units for every 50 over 150) (~ 1 units for every 10 grams of carbs) TDD: 30 10 Each 3 blood sugar diagnostic (ONETOUCH ULTRA TEST) test strip Test blood sugar(s) 4 times daily. Dx: Type2 DM - Controlled E11.9 , Insulin: Yes 200 Strip 11 Lancets (ONETOUCH ULTRASOFT LANCETS) lancets Test blood sugar(s) 4 times daily. Dx: Type 2 DM - Controlled E11.9 , Insulin: Yes 200 Each 11 famotidine (PEPCID) 20 mg tablet Take 1 tablet by mouth at bedtime as needed. 30 tablet 1 insulin glargine U-300 conc (TOUJEO MAX U-300 SOLOSTAR) 300 unit/mL (3 mL) inpn Inject subcutaneously 100 units daily 45 mL 3 montelukast (SINGULAIR) 10 mg tablet Take 1 tablet by mouth daily at bedtime. 90 tablet 3 amLODIPine (NORVASC) 5 mg tablet Take 1 tablet by mouth once daily. 90 tablet 3 atenolol (TENORMIN) 50 mg tablet Take 1 tablet by mouth once daily. 90 tablet 3 atorvastatin (LIPITOR) 20 mg tablet Take 1 tablet by mouth once daily. 90 tablet 3 fenofibrate nanocrystallized (TRICOR) 145 mg tablet Take 1 tablet by mouth once daily. 90 tablet 3 metFORMIN (GLUCOPHAGE) 1,000 mg tablet Take 1 tablet by mouth two times a day with meals. 180 tablet 3 losartan (COZAAR) 100 mg tablet TAKE ONE-HALF TABLET BY MOUTH ONCE DAILY 45 tablet 3 ferrous sulfate 325 mg (65 mg iron) tablet Take 1 tablet by mouth every other day. 45 tablet 1 pramipexole (MIRAPEX) 0.125 mg tablet take 1 tablet by mouth every evening if needed for RESTELESS LEGS 90 tablet 3 gabapentin (NEURONTIN) 300 mg capsule Take 1 capsule by mouth daily at bedtime for 180 days. 90 capsule 1 gabapentin (NEURONTIN) 100 mg capsule Take 1 capsule by mouth two times a day for 180 days. Take one in AM and one in afternoon. Take the 300mg before bed. 180 capsule 1 Insulin Bradford, Disposable, (BD ULTRAFINE III MINI PEN) 31 gauge x 3/16 Use with insulin injection 2 times daily 200 Each 3 glucagon (GLUCAGON EMERGENCY KIT, HUMAN,) 1 mg injection Inject (1)one mg for insulin shock. 2 Each1 Blood-Glucose Meter,Continuous (DEXCOM G6 NAVAL SCIENCE TEACHER) misc 1 Each continuous. 1 Each 0 ondansetron orally disintegrating (ZOFRAN ODT) 4 mg disintegrating tablet Take 1 tablet by mouth every 6 hours as needed for nausea/vomiting. 15 tablet 1 celecoxib (CELEBREX) 200 mg capsule Take 200 mg by mouth every morning. diclofenac (VOLTAREN) 1 % topical gel Apply 2 g to affected area four times daily. 50 g 3 triamcinolone acetonide (NASACORT AQ) 55 mcg nasal inhaler Use 2 Sprays in the nose once daily. aspirin, enteric coated (ASPIRIN, ENTERIC COATED) 81 mg EC tablet Take 1 tablet by mouth once daily. 30 tablet 1 flash glucose scanning reader (BlendagramSTYLE CARLITO 2 READER) Use as instructed to check four times a day (Patient not taking: Reported on 06/07/2023) 1 Each 0 flash glucose sensor (FREESTYLE CARLITO 2 SENSOR) kit Check blood sugar four times a day as instructed (Patient not taking: Reported on 06/07/2023) 2 Each 11 No current facility-administered medications for this visit. Vitals: 06/07/23 1501 BP: 142/82 Pulse: 81 Temp: 36.2 C (97.1 F) TempSrc: Temporal Artery SpO2: 95% Weight: 84.8 kg (187 lb) Physical Exam GENERAL: Well nourished, obese, well hydrated, in no distress and oriented x 3 EYES: no thyroid eye signs, EOMI NECK: , no tenderness and adenopathy THYROID: Non-tender to palpable, no evidence of goiter, no nodules palpable LUNGS: Unlabored on room air HEART: regular rate and rhythm GI: abdomen is soft, nontender, Injections sites without lipodystrophy Mild stretch carson noted on abdominal examination. EXTREMITIES: no edema, monofilament testing within normal limits in bilateral feet NEURO: normal strength, no tremor OTHER: Acanthosis None Labs: Latest Ref Rng 01/06/2023 03/26/2023 04/07/2023 Protein, Total 6.3 - 8.0 g/dL 7.3 7.1 Albumin 3.9 - 4.9 g/dL 4.6 4.4 Calcium 8.5 - 10.2 mg/dL 10.7 (H) 11.0 (H) Bilirubin, Total 0.2 - 1.3 mg/dL 0.2 0.2 Alkaline Phosphatase 34 - 123 U/L 73 77 AST 13 - 35 U/L 16 21 ALT 7 - 38 U/L 17 18 Glucose 74 - 99 mg/dL 134 (H) 159 (H) BUN 7 - 21 mg/dL 19 13 Creatinine 0.58 - 0.96 mg/dL 0.78 0.77 Sodium 136 - 144 mmol/L 139 138 Potassium 3.7 - 5.1 mmol/L 4.8 4.7 Chloride 97 - 105 mmol/L 102 102 CO2 22 - 30 mmol/L 22 24 Anion Gap 9 - 18 mmol/L 15 12 eGFR >=60 mL/min/1.73m 91 92 WBC 3.70 - 11.00 k/uL 11.72 (H) RBC 3.90 - 5.20 m/uL 5.14 Hemoglobin 11.5 - 15.5 g/dL 14.6 Hematocrit 36.0 - 46.0 % 46.1 (H) MCV 80.0 - 100.0 fL 89.7 MCH 26.0 - 34.0 pg 28.4 MCHC 30.5 - 36.0 g/dL 31.7 RDW-CV 11.5 - 15.0 % 14.0 Platelet Count 150 - 400 k/uL 523 (H) MPV 9.0 - 12.7 fL 8.6 (L) Absolute nRBC <0.01 k/uL <0.01 Total Cholesterol, Nonfasting <200 mg/dL 150 Triglycerides, Nonfasting <150 mg/dL 226 (H) HDL Cholesterol, Nonfasting >39 mg/dL 39 (L) LDL Cholesterol, Nonfasting <100 mg/dL 66 Non HDL Cholesterol, Nonfasting <130 mg/dL 111 VLDL Cholesterol, Nonfasting <30 mg/dL 45 (H) Total Chol/HDL Ratio, Nonfasting <5.10 mg/dL 3.85 LDL/HDL Ratio, Nonfasting <2.54 mg/dL 1.69 Creatinine, Ur Random (UCRR) 20.0 - 300.0 mg/dL 136.0 Albumin, Urine Random mg/L 795.8 Albumin/Creat Ratio <30 mg/g 585 (H) Hemoglobin A1C 4.3 - 5.6 % 6.3 (H) 7.0 (H) Estimated Average Glucose mg/dL 134 154 Normalized Calcium 1.08 - 1.30 mmol/L 1.35 (H) Ionized Calcium 1.08 - 1.30 mmol/L 1.38 (H) PTH, Intact 15 - 65 pg/mL 23 TSH 0.270 - 4.200 mIU/L 1.100 Free T4 0.9 - 1.7 ng/dL 1.4 Vitamin B12 232 - 1,245 pg/mL 330 Legend: (H) High (L) Low Assessment and Plan This is a 52 year old female patient with MAKAYLA. She also has a significant autoimmune history of rheumatoid arthritis, SLE MAKAYLA- within good control: -A1c 7.0% in 02/2023 -eGFR 92 in 02/2023 -Current regimen: Toujeo U300 100 units daily in AM, Humalog 5 units with each meal along with correction scale starting at 150 mg/dL at 2:50 Ozempic 0.5 mg weekly Metformin 1000 mg twice daily Plan: - I discussed with her on reviewing dexcom data, I will increase Toujeo U300 to 110 units daily She will continue with Humalog doses as is I discussed I am unsure if metformin has been of help for her BG, discussed actions of the medications and she would like to continue for weight loss and insulin sensitivity - Continue ozempic 0.5 mg weekly (advised she can do 0.75 mg as a combination of 0.5 +0.25 mg weekly as she was tolerating 1 mg weekly well while she has had no weight loss with 0.5 mg weekly), metformin 1000 mg BID -Instructed on side effects of nausea, vomiting, abdominal pain/cramping, diarrhea, early satiety, decreased appetite, pancreatitis - Hypoglycemia protocol discussed- discussed Baqsimi as she was not sure if she will be able to useglucagon emergency kit when a low occurs-unfortunately Baqsimi is excluded from coverage by her insurance at this time -Continue Dexcom. Discussed about close checking blood sugars with fingersticks when Dexcom is showing a low but she does not have any symptoms. -Call if blood sugar consistently <80 mg/dl or >200 mg/dl -Lifestyle modifications (diet, exercise, and weight loss) have been discussed with the patient -Will check HbA1c in office on next visit # Hypertension -Today BP 142/82 -Currently antihypertensive regimen is losartan 100 mg once daily, amlodipine 5 mg once daily, atenolol 50 mg once daily, will control blood pressure #Dyslipidemia -Last lipid panel was done in February 2023, LDL and total cholesterol levels within goal, elevatedtriglycerides to 226 mg/dL -Currently on atorvastatin 20 mg once daily #Obesity Class II with serious comobidity -Diet and exercise discussed -On Ozempic 0.5 mg once weekly. She would like to continue metformin for weight loss as well, apartfrom blood sugar control - Will check cortisol excess due to stretch carson and multiple comorbidities with 1 mg Overnight DST RTC in 3 months I have confirmed and edited as necessary, the past medical, surgical, family, and social history asobtained by others. I spent a total of 76 minutes on the date of the service which included preparing to see the patient, [id number] patient care, completing clinical documentation, obtaining and/or reviewing separately obtained history, performing a medically appropriate examination, counseling and educating the pat ient/family/caregiver, ordering medications, tests, or procedures, and independently interpreting results (not separately reported). Amada Gandhi MD Endocrinology Associate Staff [facility] Endocrinology and Metabolism [place] [phone] Some elements were copied from my last note on and has been updated as appropriate today documented in this encounterPromedica [facility]03-08-2024 Telephone encounter Note * Telephone Encounter - Vicki French - 06/03/2023 8:55 AM EST Disregard [id number] Miscellaneous Notes* Telephone Encounter - Vicki French - 06/03/2023 8:55 AM EST Disregard documented in this encounterSMansfield [id number] Miscellaneous Notes* Telephone Encounter - Wanda Holloway LPN - 05/18/2023 8:25 AM EST Pt called and Luis Carr is not able to get Transmitter for pt. Pt reports she will be getting all the prescriptions for her Dex com from [facility]. Wanda Holloway LPN documented in this encounterPromedica [facility]02-16-2024 Miscellaneous Notes* Telephone Encounter - Sahron Mendez LPN - 05/13/2023 1:27 PM EST Patient has been identified by name and date of : No Patient phones for refill(s): Requested Prescriptions Pending Prescriptions Disp Refills Blood-Glucose Transmitter (DEXCOM G6 TRANSMITTER) catracho 1 Each 0 Si Each continuous. Date of last office visit in primary care: 05/09/2023 Date of next office visit in primary care: 08/08/2023 Please advise. Thank you. Sharon Mendez LPN. documented in this encounterPromedica [facility]02-16-2024 Note* Addendum Note - Laila Caraballo RN - 05/13/2023 8:58 AM ESTAddended by: LAILA CARABALLO on: 05/13/2023 08:58 AM Modules accepted: Orders [id number] Note* Addendum Note - Laila Caraballo RN - 05/13/2023 8:58 AM ESTAddended by: LAILA CARABALLO on: 05/13/2023 08:58 AM Modules accepted: Orders [facility] [id number] Miscellaneous Notes* Addendum Note - Laila Caraballo RN - 05/13/2023 8:58 AM ESTAddended by: LAILA CARABALLO on: 05/13/2023 08:58 AM Modules accepted: Orders * Telephone Encounter - Laila Caraballo RN - 05/13/2023 8:56 AM EST Images from the original note were not included. Josiah Dudley, DO to Me 05/12/23 2:52 PM Patient will need to be evaluated by mill tender warm up before medication can be continued. She has been on it over 6 months now. Called/ spoke w/ pt; notified per physician's message. Pt states understanding. She will call/ message the office once eye exam complete, so we can contact office to request note. * Addendum Note - Laila Caraballo RN - 05/12/2023 2:32 PM ESTAddended by: LAILA CARABALLO on: 05/12/2023 02:32 PM Modules accepted: Orders * Telephone Encounter - Laila Caraballo RN - 05/12/2023 2:29 PM EST Medication: hcq 200mg 2 tab qd Refills: 03/03/23 56 + 1 misischia LARA: 03/10/23 misischia/ Continue NOV: 5 months/ 08/09/23 Labs: 03/26/23 physician reviewed Eye exam: med started 08/2022, nothing on file Called/ spoke w/ pt, inquired; where did pt have eye exam done someplace other than [facility], we have not received results. Pt states she has not had time to do eye exam, d/t her mother's health. Pended 30 days + 0 refills * Telephone Encounter - Elizabet Castro - 05/11/2023 1:26 PM EST Medication name: hydroxychloroquine (Plaquenil) 200 MG tablet Medication dosage: 200 mg (Miligrams Monthly quantity needed: 60 How many day supply requestin days Medication route: oral (PO) Medication administration time(s): 2 times a day (BID) If taking medication PRN, reason for taking medication: N/A If this is a controlled substance do you receive this or any other controlled medication from any other doctor or facility: N/A Ordering provider: Dr Dudley Date of last office visit: 05/11/22 Date of next office visit: 08/09/23 Date of last refill: (see medication tab): 03/03/23 Updated/Validated preferred pharmacy: Yes Patient instructed to contact the pharmacy prior to picking up the medication: Yes documented in this [facility]02-16-2024 Telephone encounter Note* Telephone Encounter - Laila Caraballo RN - 05/13/2023 8:56 AM EST Images from the original note were not included. Josiah Dudley, DO to [place] 05/12/23 2:52 PM Patient will need to be evaluated by mill tender warm up before medication can be continued. She has been on it over 6 months now. Called/ spoke w/ pt; notified per physician's message. Pt states understanding. She will call/ message the office once eye exam complete, so we can contact office to request note. [facility] [id number] Note* Addendum Note - Laila Caraballo RN - 05/12/2023 2:32 PM ESTAddended by: LAILA CARABALLO on: 05/12/2023 02:32 PM Modules accepted: Orders [facility] [id number] Note* Addendum Note - Laila Caraballo RN - 05/12/2023 2:32 PM ESTAddended by: LAILA CARABALLO on: 05/12/2023 02:32 PM Modules accepted: Orders [id number] Note* Addendum Note - Laila Caraballo RN - 05/12/2023 2:32 PM ESTAddended by: LAILA CARABALLO on: 05/12/2023 02:32 PM Modules accepted: Orders [facility] [id number] Miscellaneous Notes* Addendum Note - Laila Caraballo RN - 05/12/2023 2:32 PM ESTAddended by: LAILA CARABALLO on: 05/12/2023 02:32 PM Modules accepted: Orders * Telephone Encounter - Laila Caraballo RN - 05/12/2023 2:29 PM EST Medication: hcq 200mg 2 tab qd Refills: 03/03/23 56 + 1 misischia LARA: 03/10/23 misischia/ Continue NOV: 5 months/ 08/09/23 Labs: 03/26/23 physician reviewed Eye exam: med started 08/2022, nothing on file Called/ spoke w/ pt, inquired; where did pt have eye exam done someplace other than [facility], we have not received results. Pt states she has not had time to do eye exam, d/t her mother's health. Pended 30 days + 0 refills * Telephone Encounter - Elizabet Castro - 05/11/2023 1:26 PM EST Medication name: hydroxychloroquine (Plaquenil) 200 MG tablet Medication dosage: 200 mg (Miligrams Monthly quantity needed: 60 How many day supply requestin days Medication route: oral (PO) Medication administration time(s): 2 times a day (BID) If taking medication PRN, reason for taking medication: N/A If this is a controlled substance do you receive this or any other controlled medication from any other doctor or facility: N/A Ordering provider: Dr Dudley Date of last office visit: 05/11/22 Date of next office visit: 08/09/23 Date of last refill: (see medication tab): 03/03/23 Updated/Validated preferred pharmacy: Yes Patient instructed to contact the pharmacy prior to picking up the medication: Yes documented in this [facility]02-15-2024 Telephone encounter Note* Telephone Encounter - Laila Caraballo RN - 05/12/2023 2:29 PM EST Medication: hcq 200mg 2 tab qd Refills: 03/03/23 56 + 1 misischia LARA: 03/10/23 misischia/ Continue NOV: 5 months/ 08/09/23 Labs: 03/26/23 physician reviewed Eye exam: med started 08/2022, nothing on file Called/ spoke w/ pt, inquired; where did pt have eye exam done someplace other than [facility], we have not received results. Pt states she has not had time to do eye exam, d/t her mother's health. Pended 30 days + 0 refills [facility] [id number] Telephone encounter Note* Telephone Encounter - Elizabet Castro - 05/11/2023 1:26 PM EST Medication name: hydroxychloroquine (Plaquenil) 200 MG tablet Medication dosage: 200 mg (Miligrams Monthly quantity needed: 60 How many day supply requestin days Medication route: oral (PO) Medication administration time(s): 2 times a day (BID) If taking medication PRN, reason for taking medication: N/A If this is a controlled substance do you receive this or any other controlled medication from any other doctor or facility: N/A Ordering provider: Dr Dudley Date of last office visit: 05/11/22 Date of next office visit: 08/09/23 Date of last refill: (see medication tab): 03/03/23 Updated/Validated preferred pharmacy: Yes Patient instructed to contact the pharmacy prior to picking up the medication: Yes [facility] [id number] Miscellaneous Notes* Telephone Encounter - Elizabet Castro - 05/11/2023 1:26 PM EST Medication name: hydroxychloroquine (Plaquenil) 200 MG tablet Medication dosage: 200 mg (Miligrams Monthly quantity needed: 60 How many day supply requestin days Medication route: oral (PO) Medication administration time(s): 2 times a day (BID) If taking medication PRN, reason for taking medication: N/A If this is a controlled substance do you receive this or any other controlled medication from any other doctor or facility: N/A Ordering provider: Dr Dudley Date of last office visit: 05/11/22 Date of next office visit: 08/09/23 Date of last refill: (see medication tab): 03/03/23 Updated/Validated preferred pharmacy: Yes Patient instructed to contact the pharmacy prior to picking up the medication: Yes documented in this [facility]02-12-2024 History of Present illness Narrative* Gela Medina APRN.AERIAL PHOTOGRAMMETRIST - 05/09/2023 12:00 PM EST CC: Patient presents with: Recheck: 4 week follow up HPI Jarod Rodarte is a 52 year old female who presents today for follow up on anxiety and depression. Had effexor increased and hydroxyzine ordered. Has been caring for mother and sick so has not tried the hydroxyzine yet. Also reports Bilateral ear pain, fatigue, and sinus congestion for the past 1.5 weeks. Family had been sick with flu and she has been caring for them. Has taken a decongestant previously with this but is now just taking tylenol to make pain tolerable. Denies fever, chills, cough, wheezing, shortness of breath, chest pressure, edema, palpitations, headaches, dizziness, or syncope. Depression and Anxiety: Unsure if this controlled Sleep: - needs to trial hydroxyzine as previously ordered. Alcohol use: does not drink any alcohol Drug use: No Appetite: good Suicidal Thoughts: No suicidal or homicidal ideation, intent or plan Had FIT testing through insurance which was a positive. Denies any current bowel changes, nausea, vomiting, history of hemorrhoids or blood in stool. REVIEW OF SYSTEMS See HPI PAST MEDICAL HISTORY Diagnosis Date De Quervain's tenosynovitis, bilateral Depression with anxiety Diabetes (HCC) Fibromyalgia Hypercholesterolemia Hypertension IBS (irritable bowel syndrome) Raynaud's disease Restless legs syndrome (RLS) PAST SURGICAL HISTORY Procedure Laterality Date CONE OF CERVIX LOOPELEC EXCIS EXTRACTION, ERUPTED TOOTH OR EXPOSED ROOT (ELEVATION AND/OR FORCEPS REMOVAL) [place] teeth x 4 HYSTERECTOMY HX precervical cancer, removed cervix KNEE SURGERY HX 4x right and left x4 ALLERGIES Jardiance [Empagliflozin], Penicillin G, Requip [Ropinirole], and Wellbutrin [Bupropion Hcl] MEDICATIONS pramipexole (MIRAPEX) 0.5 mg tablet Take 1 tablet by mouth once daily. omeprazole (PRILOSEC) 40 mg capsule Take 1 capsule by mouth once daily. venlafaxine ER (EFFEXOR XR) 75 mg 24 hr capsule Take 1 capsule by mouth once daily. venlafaxine ER (EFFEXOR XR) 150 mg 24 hr capsule Take 1 capsule by mouth once daily. semaglutide (OZEMPIC) 0.25 mg or 0.5 mg (2 mg/3 mL) pen Inject 0.5 mg subcutaneously one time a week. venlafaxine XR (EFFEXOR XR) 225 mg tablet Take 1 tablet by mouth once daily. hydrOXYzine HCl (ATARAX) 25 mg tablet Take 1 tablet by mouth three times a day as needed for anxiety. Blood-Glucose Sensor (ShareMeister G6 SENSOR) catracho Change sensor every 10 days. USE FOR CONTINUOUS GLUCOSE MONITORING. MULTIPLE INSULIN INJECTIONS. E11.9 insulin lispro (HUMALOG KWIKPEN INSULIN) 100 unit/mL Inject 5 units with meals TID plus SS#2 (2 units for every 50 over 150) (~ 1 units for every 10 grams of carbs) TDD: 30 blood sugar diagnostic (ONETOUCH ULTRA TEST) test strip Test blood sugar(s) 4 times daily. Dx: Type2 DM - Controlled E11.9 , Insulin: Yes Lancets (ONETOUCH ULTRASOFT LANCETS) lancets Test blood sugar(s) 4 times daily. Dx: Type 2 DM - Controlled E11.9 , Insulin: Yes famotidine (PEPCID) 20 mg tablet Take 1 tablet by mouth at bedtime as needed. insulin glargine U-300 conc (TOUJEO MAX U-300 SOLOSTAR) 300 unit/mL (3 mL) inpn Inject subcutaneously 100 units daily montelukast (SINGULAIR) 10 mg tablet Take 1 tablet by mouth daily at bedtime. amLODIPine (NORVASC) 5 mg tablet Take 1 tablet by mouth once daily. atenolol (TENORMIN) 50 mg tablet Take 1 tablet by mouth once daily. atorvastatin (LIPITOR) 20 mg tablet Take 1 tablet by mouth once daily. fenofibrate nanocrystallized (TRICOR) 145 mg tablet Take 1 tablet by mouth once daily. metFORMIN (GLUCOPHAGE) 1,000 mg tablet Take 1 tablet by mouth two times a day with meals. losartan (COZAAR) 100 mg tablet TAKE ONE-HALF TABLET BY MOUTH ONCE DAILY ferrous sulfate 325 mg (65 mg iron) tablet Take 1 tablet by mouth every other day. pramipexole (MIRAPEX) 0.125 mg tablet take 1 tablet by mouth every evening if needed for RESTELESS LEGS gabapentin (NEURONTIN) 300 mg capsule Take 1 capsule by mouth daily at bedtime for 180 days. gabapentin (NEURONTIN) 100 mg capsule Take 1 capsule by mouth two times a day for 180 days. Take one in AM and one in afternoon. Take the 300mg before bed. Insulin Bradford, Disposable, (BD ULTRAFINE III MINI PEN) 31 gauge x 3/16 Use with insulin injection 2 times daily glucagon (GLUCAGON EMERGENCY KIT, HUMAN,) 1 mg injection Inject (1)one mg for insulin shock. Blood-Glucose Transmitter (DEXCOM G6 TRANSMITTER) catracho 1 Each continuous. Blood-Glucose Meter,Continuous (DEXCOM G6 NAVAL SCIENCE TEACHER) misc 1 Each continuous. ondansetron orally disintegrating (ZOFRAN ODT) 4 mg disintegrating tablet Take 1 tablet by mouth every 6 hours as needed for nausea/vomiting. flash glucose scanning reader (BlendagramSTYLE CARLITO 2 READER) Use as instructed to check four times a day flash glucose sensor (FREESTYLE CARLITO 2 SENSOR) kit Check blood sugar four times a day as instructed Blood-Glucose Transmitter (DEXCOM G6 TRANSMITTER) catracho Change transmitter every 3 months. USE FOR CONTINUOUS GLUCOSE MONITORING. MULTIPLE INSULIN INJECTIONS. E11.9 celecoxib (CELEBREX) 200 mg capsule Take 200 mg by mouth every morning. diclofenac (VOLTAREN) 1 % topical gel Apply 2 g to affected area four times daily. triamcinolone acetonide (NASACORT AQ) 55 mcg nasal inhaler Use 2 Sprays in the nose once daily. aspirin, enteric coated (ASPIRIN, ENTERIC COATED) 81 mg EC tablet Take 1 tablet by mouth once daily. FAMILY HISTORY Problem Relation Age of Onset Hypertension Mother Breast Cancer Mother other (raynaud) Mother Parkinson s Disease Father Hyperlipidemia Father Arthritis Father Breast Cancer Maternal Grandmother other (Thrombosis) Maternal Grandfather COPD Paternal Grandmother Coronary Artery Disease Paternal Grandmother Coronary Artery Disease Paternal Grandfather other ([place] Disease) Maternal Aunt Cervical Cancer Paternal Aunt Heart Paternal Aunt Factor 5 Leiden Paternal cousin Social History Tobacco Use Smoking status: Every Day Packs/day: 0.50 Years: 31.00 Additional pack years: 0.00 Total pack years: 15.50 Types: Cigarettes Smokeless tobacco: Never Vaping Use Vaping Use: Never used Substance Use Topics Alcohol use: No Drug use: No PHYSICAL EXAM BP 130/82 Pulse 76 Resp 16 Wt 82.6 kg (182 lb) SpO2 100% BMI 30.29 kg/m General Appearance: well appearing, in no acute distress, alert Pysch: mood and affect broad and appropriate Skin: Skin color, texture, turgor normal for age; Eyes: conjunctiva pink and moist, no icterus, sclera white, non-injected Ears: external ears normal to inspection and palpation, canals clear,Both left and Right TM with erythema but no bulging. Nose/sinus: Nares normal. Septum midline. Mucosa normal. No drainage., No sinus tenderness Neck: Thyroid normal size and symmetric without palpable nodules, Neck supple, No adenopathy Lymph nodes: No cervical lymphadenopathy and No supraclavicular lymphadenopathy Lungs: Lungs clear to auscultation. No wheezing, rhonchi, rales. Heart: RRR without murmur, gallop, or rubs. No ectopy Health maintenance reviewed with patient: Pap Testing due on 11/30/2018 HPV Testing due on 11/30/2018 Diabetic Foot Exam due on 06/12/2022 Dilated Retinal Exam due on 01/28/2023 Influenza Vaccine(1) due on 09/25/2023 Hepatitis B Vaccine(1 of 3 - 3-dose series) due on 01/07/2024 Colorectal Cancer Screening due on 01/07/2024 Shingrix Vaccine(1 of 2) due on 01/07/2024 Covid-19 Vaccine( season) due on 01/07/2024 HbA1C due on 09/25/2023 Urine Albumin:Creatinine Ratio due on 03/26/2024 LDL Cholesterol due on 03/26/2024 DTaP,Tdap,Td Vaccine(2 - Td or Tdap) due on 03/28/2024 Annual PCP Team Chronic Disease Visit due on 04/07/2024 BP Controlled (<130/80) due on 04/07/2024 Mammogram Screening due on 05/03/2024 Pneumococcal Vaccine(3 of 3 - PPSV23 or PCV20) due on 2034 Hepatitis C Screening Completed HIV Screening Completed DATA REVIEWED: Most recent labs ASSESSMENT/PLAN: 1. Acute otitis media, unspecified otitis media type - ICD9: 382.9, ICD10: H66.90 (primary diagnosis) - Will begin treatment with as per antibiotic as written, see orders - Supportive care with plenty of fluids, rest, and analgesia prn. - Follow up in 3-5 days if symptoms persist or worsen. 2. Acute non-recurrent sinusitis, unspecified location - ICD9: 461.9, ICD10: J01.90 - Will begin treatment with as per antibiotic as written, see orders - Supportive care with plenty of fluids, rest, and analgesia prn. - Follow up in 3-5 days if symptoms persist or worsen. 3. Positive FIT (fecal immunochemical test) - ICD9: 792.1, ICD10: R19.5 - CONSULT TO GENERAL SURGERY 4. Depression with anxiety - ICD9: 300.4, ICD10: F41.8 Unsure if this is improved with recent illness and increase in stress. If no improvement with treatment of insomnia or sinusitis, may need to reconsider treatment - Reviewed concept of neurochemical imbalance wth depression/anxiety, treatment options and benefits of counseling in combination with medication. Also reviewed benefits of sleep hygeine, diet and exercise - Instructed patient to contact office or [id number] after-hours promptly should condition worsen or any new symptoms appear. - [facility] and after hours crisis line 5. Insomnia, unspecified type - ICD9: 780.52, ICD10: G47.00 As above Start hydroxyzine as ordered Prescription instructions reviewed with patient as applicable. Potential red flag symptoms discussed with the patient. Reviewed appropriate action plan to take if red flag symptoms occur. Patient agreeable to treatment plan. Gela Medina APRN.HAYLEE documented in this encounterPromedica [facility]02-08-2024 Miscellaneous Notes* Letter - Coordinator, Mammography - 05/05/2023 1:00 AM EST May 05, 2023 PID: [id number] Jarod Rodarte [address] [place] [id number] Dear Ms. Rodarte, We are pleased to inform you that the results of your recent breast imaging exam on 05/03/2023 are normal. Early detection of cancer is very important. We also understand recommendations regarding breast cancer screening are controversial. Please discuss with your primary care provider which strategy is best for you and whether a mammogram is right for you. Your imaging studies and report will be kept on file at [facility] as part of your permanent medical record and are available for your continuing care. Thank you for allowing us to help in meeting your health care needs. Sincerely, Dr. Penn Interpreting Radiologist [facility] (Normal over 40) documented in this encounterPromedica Fostoria [facility] Hospital02-06-2024 Miscellaneous Notes* Telephone Encounter - Sharon Mendez LPN - 05/03/2023 3:08 PM EST Patient has been identified by name and date of : No Patient phones for refill(s): Requested Prescriptions Pending Prescriptions Disp Refills pramipexole (MIRAPEX) 0.5 mg tablet 90 tablet 3 Sig: Take 1 tablet by mouth once daily. omeprazole (PRILOSEC) 40 mg capsule 14 capsule 0 Sig: Take 1 capsule by mouth once daily. Date of last office visit in primary care: 04/07/2023 Date of next office visit in primary care: 05/09/2023 Please advise. Thank you. Sharon Mendez LPN. documented in this encounterPromedica Fostoria [facility]02-06-2024 History of Present illness Narrative* Jenifer Haley RT(R) - 05/03/2023 1:10 PM EST Radiology Service Progress Note PATIENT NAME: Jarod Rodarte DATE OF SERVICE: May 03, 2023 TIME: 12:54 PM PATIENT IDENTITY VERIFICATION COMPLETED USING TWO (2) IDENTIFIERS: Name and Date of confirmedby patient verbally. FALL SCREENING: Has the patient had 2 falls in the last year or 1 fall with injury or currently using an Ambulatory Assistive Device (Walker, Cane, Wheelchair, Crutches, etc.)? No PATIENT GENDER DATA: Female. status: : No status: NO. PATIENT RELEVANT IMPLANT DATA REVIEWED: Not Applicable PATIENT PRESENTS WITH AN IMPLANTABLE OR ATTACHED SAFETY COMPANION: No RADIOLOGY DEPARTMENT: Mammography PERIPHERAL IV DATA: Not applicable SIGNED BY: RT Evin(R) May 03, 2023 12:54 PM documented in this encounterPromedica Fostoria [facility]01-02-2024 Miscellaneous Notes* Telephone Encounter - Karen Burger - 03/29/2023 9:04 AM EST Name of caller: Jarod Contact phone number: [phone] Relationship to Patient: patient Provider: Clauischia Practice: Rheumatology Chief Complaint/Reason for Call: Patient called and said she had her blood work done. She would like the script for methotrexate sent to [facility]. Please advise Best time of day caller can be reached: any Patient advised that office/PCP has 24-48 business hours to return their call: No * Telephone Encounter - Madeline Omalley MA - 03/29/2023 8:16 AM EST Medication: METHOTREXATE 2.5 MG TABLET Refills: 03/10/23 24 tablets Tale 6 tablets once a week 3 in the morning and 3 in the evening on the day that you take it. LARA: 03/10/23 NOV: 08/09/23 Labs: 03/26/23 Eye exam: documented in this encounterSMansfield [id number] Telephone encounter Note* Telephone Encounter - Karen Burger - 03/29/2023 9:04 AM EST Name of caller: Jarod Contact phone number: [phone] Relationship to Patient: patient Provider: Luis Enrique Practice: Rheumatology Chief Complaint/Reason for Call: Patient called and said she had her blood work done. She would like the script for methotrexate sent to [facility]. Please advise Best time of day caller can be reached: any Patient advised that office/PCP has 24-48 business hours to return their call: No [id number] Telephone encounter Note* Telephone Encounter - Madeline Omalley MA - 03/29/2023 8:16 AM EST Medication: METHOTREXATE 2.5 MG TABLET Refills: 03/10/23 24 tablets Tale 6 tablets once a week 3 in the morning and 3 in the evening on the day that you take it. LARA: 03/10/23 NOV: 08/09/23 Labs: 03/26/23 Eye exam: [facility] [id number] History of Present illness Narrative* Josiah Dudley, DO - 03/10/2023 12:30 PM EST CHIEF COMPLAINT: Chief Complaint Patient presents with Follow-up RA HPI: This is a very pleasant 52-year-old female who is seen today for follow-up of a relatively recentlydiagnosed seronegative rheumatoid arthritis. Patient had been on methotrexate for some time and although she had a good response to it, she was still having pain and swelling. At last visit hydroxychloroquine was added and she is currently taking 400 mg daily in split doses along with some Celebrex. Joints feel significantly better. Her only complaint is that she has a lot of fatigue for a day or2 after she takes her methotrexate. This is despite folic acid at 3 mg a day. Reports no oral ulcers rashes or stomach upset and has not had any recent infections. She has not established with her mill tender warm up for monitoring of her hydroxychloroquine yet. Reports no significant stiffness or pain in her joints and for the most part can perform all activities of daily living. Allergies Allergen Reactions Penicillins Anaphylaxis Bupropion Other Seizure and hives Empagliflozin Hives Ropinirole Seizure Current Outpatient Medications Medication Sig Dispense Refill amLODIPine (Norvasc) 5 MG tablet Take 5 mg by mouth in the morning. aspirin 81 MG EC tablet Take 81 mg by mouth in the morning. atenolol (Tenormin) 50 MG tablet Take 50 mg by mouth in the morning. atorvastatin (Lipitor) 20 MG tablet Take 20 mg by mouth in the morning. BD Pen Needle Teetee 2nd Gen 32G X 4 MM [facility] USE TO INJECT INSULIN SUBCUTANEOUSLY TWICE A DAY DIRECTED Continuous Blood Gluc Sensor (Dexcom G6 Sensor) [facility] [place] Use a new sensor every 10 days. fenofibrate (Tricor) 145 MG tablet Take 145 mg by mouth in the morning. folic acid (Folvite) 1 MG tablet Take 3 tablets (3 mg) by mouth daily. 180 tablet 3 gabapentin (Neurontin) 100 MG capsule Take 100 mg by mouth 2 times daily. gabapentin (Neurontin) 300 MG capsule Take 300 mg by mouth Nightly. glucagon (Gvoke HypoPen) 1 MG/0.2ML injection Inject 1 mg under the skin Once as needed for low blood sugar. Prn for emergency hydroxychloroquine (Plaquenil) 200 MG tablet TAKE 2 TABLETS BY MOUTH DAILY 56 tablet 1 Insulin Glargine (TOUJEO MAX SOLOSTAR SC) Inject 100 Units under the skin every morning. Insulin Lispro (Humalog) 100 UNIT/ML solution injection Inject 5 Units under the skin. Sliding scale losartan (Cozaar) 100 MG tablet Take 0.5 tablets by mouth in the morning. metFORMIN (Glucophage) 1000 MG tablet Take 1 tablet by mouth in the morning and 1 tablet in the evening. Take with meals. methotrexate 2.5 MG tablet Take 8 tablets (20 mg total) by mouth 1 (one) time per week. Follow directions carefully, and ask to explain any part you do not understand. Take exactly as directed. 32 tablet 1 montelukast (Singulair) 10 MG tablet Take 1 tablet by mouth Nightly. omeprazole (PriLOSEC) [address] capsule Take 1 capsule by mouth every morning (before breakfast). Pennsaid 2 % solution pramipexole (Mirapex) 0.5 MG tablet Take 0.5 mg by mouth in the morning. Saccharomyces boulardii (probiotic) 250 MG capsule Take 350 mg by mouth daily. semaglutide (Ozempic, 1 MG/DOSE,) 4 MG/3ML solution pen-injector Inject 1 mg under the skin once a week. triamcinolone (Nasacort) 55 MCG/ACT nasal inhaler Administer 2 sprays into affected nostril(s) in the morning. Unifine Pentips 31G X 5 MM misc venlafaxine XR (Effexor XR) 150 MG 24 hr capsule Take 150 mg by mouth in the morning. celecoxib (CeleBREX) 200 MG capsule TAKE 1 CAPSULE BY MOUTH DAILY (Patient not taking: Reported on 03/10/2023) 28 capsule 2 Diclofenac Sodium (Voltaren) 1 % gel Apply 2 g topically in the morning and 2 g at noon and 2 g in the evening and 2 g before bedtime. gabapentin (Neurontin) 100 MG capsule Take 100 mg by mouth in the morning and 100 mg in the evening. gabapentin (Neurontin) 300 MG capsule Take 300 mg by mouth. glucose blood ([employer]) test strip Use to test blood sugars twice daily as instructed HYDROcodone-acetaminophen (Freeland) 5-325 MG tablet Take 1 tablet by mouth every 6 hours as needed. insulin glargine (Lantus) 100 UNIT/ML pen Inject 67 Units under the skin in the morning and 67 Units in the evening. semaglutide (Ozempic, 0.25 or 0.5 MG/DOSE,) 2 MG/1.5ML solution pen-injector 0.5mg weekly No current facility-administered medications for this visit. Past Medical History: Diagnosis Date Chronic pain syndrome Depression Diabetes 1.5, managed as type 2 (HCC) Fibromyalgia syndrome Gastroesophageal reflux disease Hyperlipidemia Hypertension Irritable bowel syndrome Moderate smoker (20 or less per day) Proteinuria Raynaud's syndrome Restless leg syndrome Tendinitis of thumb Thrombocytosis Tobacco abuse History reviewed. No pertinent surgical history. No family history on file. Social History Socioeconomic History Marital status: Spouse name: Not on file Number of children: Not on file Years of education: Not on file Highest education level: Not on file Occupational History Not on file Tobacco Use Smoking status: Every Day Types: Cigarettes Smokeless tobacco: Never Vaping Use Vaping Use: Never used Substance and Sexual Activity Alcohol use: Never Drug use: Never Sexual activity: Not on file Other Topics Concern Not on file Social History Narrative Not on file Social Determinants of Health Financial Resource Strain: Not on file Food Insecurity: Not on file Transportation Needs: Not on file Physical Activity: Not on file Stress: Not on file Social Connections: Not on file Intimate Partner Violence: Not on file Housing Stability: Not on file ROS: Review of Systems THE ROS IS NEGATIVE EXCEPT FOR NOTED IN HPI OBJECTIVE: Physical Exam Constitutional: Appearance: Normal appearance. HENT: Head: Comments: No facial rash or parotid swelling Eyes: Conjunctiva/sclera: Conjunctivae normal. Cardiovascular: Rate and Rhythm: Normal rate and regular rhythm. Pulses: Normal pulses. Heart sounds: Normal heart sounds. Pulmonary: Effort: Pulmonary effort is normal. Breath sounds: Normal breath sounds. Musculoskeletal: General: No swelling or tenderness. Comments: No active synovitis warmth or erythema noted in her peripheral joints including hands or wrist. Joints are cool and nontender. Skin: Findings: No erythema or rash. Neurological: General: No focal deficit present. Mental Status: She is alert. Psychiatric: Mood and Affect: Mood normal. Joint Exam 03/10/2023 No joint exam has been documented for this visit Visit Vitals BP (!) 151/87 (BP Location: Left arm, Patient Position: Sitting, BP Cuff Size: Small adult) Pulse 80 LABS/DATA: Labs from 01/11/2023 showed an AST of 16 creatinine 0.78 white count 12.6 hemoglobin 15.2 and platelets 584. Previous sedimentation rate and C-reactive protein in August were normal. ASSESSMENT/PLAN: Problem List Items Addressed This Visit None Visit Diagnoses 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) (HCC) - Primary Patient is relatively asymptomatic. Her only problem is since she is having a lot of fatigue for a day or 2 after taking methotrexate. Now that hydroxychloroquine is on board, I am going to decrease her methotrexate to 15 mg once a week and have her split and take 3 tablets in the morning and 3 tablets in the evening on the day that she takes the methotrexate. She is already on 3 mg of folic acid. Continue hydroxychloroquine but of asked her to contact her eye doctor for regular monitoring. She will let me know if she has a problem getting an appointment. We discussed the risks and side effects of the medication in detail and the need for her to have regular eye exams at least yearly. Relevant Orders Comprehensive metabolic panel CBC High risk medication use Methotrexate-update CBC and CMP today and again in 3 months and I will notify the patient of the results. She is going to do the labs tomorrow when she sees her PCP. Hydroxychloroquine-schedule eye appointment as discussed above. Relevant Orders Comprehensive metabolic panel CBC If all is stable reevaluate patient again in approximately 5 months. If she continues to have problems with the methotrexate consider changing to the leflunomide. Orders Placed This Encounter Procedures Comprehensive metabolic panel Standing Status: Standing Number of Occurrences: 3 Standing Expiration Date: 03/10/2024 CBC Standing Status: Standing Number of Occurrences: 3 Standing Expiration Date: 03/10/2024 documented in this [facility]12-14-2023 Instructions* Patient Instructions* Josiah Dudley DO - 03/10/2023 12:30 PM EST Continue methotrexate but I am going to decrease you to 6 tablets once a week. You will take 3 in the morning and 3 in the evening on the day that you take it. Let me know if you do not have improvement in your fatigue. Continue folic acid 3 mg daily. Continue hydroxychloroquine 2 tablets daily. Make sure that you contact your eye doctor and let them know you are taking this medication and that I want you to be seen for baseline exam. You will then be seen every year thereafter. Labs tomorrow when you go see your PCP and again in 3 months and I will see you back in 5 months orsooner if needed documented in this encounterSMansfield [id number] Miscellaneous Notes* Telephone Encounter - Sharon Mendez - 01/31/2023 7:50 AM EST Patient has been identified by name and date of : No Patient phones for refill(s): Requested Prescriptions Pending Prescriptions Disp Refills omeprazole (PRILOSEC) 20 mg capsule 180 capsule 0 Sig: Take 2 capsules by mouth daily before breakfast. Date of last office visit in primary care: 01/06/2023 Date of next office visit in primary care: 04/07/2023 Last 2 Encounter Wt Readings: Date: Wt: 01/06/2023 80.3 kg (177 lb) 10/06/2022 80.3 kg (177 lb) Previous labs/tests for medication: Not applicable Please advise. Thank you. Sharon Mendez. documented in this encounterPromedica Fostoria [facility] Hospital10-31-2023 Miscellaneous Notes* Telephone Encounter - Tayler Renee RN - 01/25/2023 10:19 AM EDT Pt called in and reports her Licensed [employer] will not fill her Methotrexate without her having her arecent CBC and CMP done. Pt just had those done on 01/06/23. [facility] [place] at# [phone]. documented in this encounterPromedica Fostoria [facility] Hospital10-16-2023 Miscellaneous Notes* Telephone Encounter - Gela Medina APRN.HAYLEE - 01/10/2023 3:56 PM EDT Orders placed. Gela Medina APRN.HAYLEE * Telephone Encounter - Jarod Heránndez LPN - 01/10/2023 1:08 PM EDT Patient notified. Is not taking a calcium supplement. Agreeable to further blood work. Will come inwhen orders are in and [facility]. Jarod Hernández LPN * Telephone Encounter - Gela Medina APRN.CNP - 01/10/2023 10:31 AM EDT Blood count abnormalities are most likely from recent illness and we will recheck these again at a later date. hgbA1c is controlled. Calcium is high. Verify no calcim supplement. If not, with her mothers history of hyperparathyroidism, I would like to recheck her PTH and ionized calcium. Please letme know so I can place orders. Thank you Gela Medina APRN.HAYLEE documented in this encounterPromedica Fostoria [facility] Hospital10-13-2023 Miscellaneous Notes* Telephone Encounter - Jackie Glover RN - 01/07/2023 4:25 PM EDT Patient has been identified by name and date of : Yes, Jackie Glover RN Date 01/07/2023 Time 4:27 pm Pharmacy phones for refill(s): Requested Prescriptions Pending Prescriptions Disp Refills gabapentin (NEURONTIN) 300 mg capsule 90 capsule 1 Sig: Take 1 capsule by mouth daily at bedtime for 180 days. gabapentin (NEURONTIN) 100 mg capsule 180 capsule 1 Sig: Take 1 capsule by mouth two times a day for 180 days. Take one in AM and one in afternoon. Take the 300mg before bed. Date of last office visit in primary care: 01/06/2023 Date of next office visit in primary care: 04/07/2023 Last 2 Encounter Wt Readings: Date: Wt: 01/06/2023 80.3 kg (177 lb) 10/06/2022 80.3 kg (177 lb) Previous labs/tests for medication: Blood Pressure: BUN (mg/dL) Date Value 01/06/2023 19 01/12/2021 10 Sodium (mmol/L) Date Value 01/06/2023 139 01/12/2021 137 Last 1 Encounter BP Readings: Date: BP: 01/06/2023 136/80 Liver Function: ALT (U/L) Date Value 01/06/2023 17 03/01/2020 24 AST (U/L) Date Value 01/06/2023 16 03/01/2020 18 Please advise. Thank you. Jackie Glover RN. documented in this encounterPromedica Fostoria [facility] Hospital10-12-2023 History of Present illness Narrative* Dori Madera RT(R) - 01/06/2023 11:30 AM EDT Radiology Service Progress Note PATIENT NAME: Jarod Rodarte DATE OF SERVICE: January 06, 2023 TIME: 11:14 AM PATIENT IDENTITY VERIFICATION COMPLETED USING TWO (2) IDENTIFIERS: Name and Date of confirmedby patient verbally. FALL SCREENING: Has the patient had 2 falls in the last year or 1 fall with injury or currently using an Ambulatory Assistive Device (Walker, Cane, Wheelchair, Crutches, etc.)? No PATIENT GENDER DATA: Female. status: : No status: NO. PATIENT RELEVANT IMPLANT DATA REVIEWED: Yes RADIOLOGY DEPARTMENT: General X-ray: Exam(s) Completed: Chest X-Ray PERIPHERAL IV DATA: Not applicable SIGNED BY: RT Melissa(Camille) January 06, 2023 11:14 AM documented in this encounterPromedica Fostoria Community Hospital10-12-2023 History of Present illness Narrative* Gela Medina APRN.AERIAL PHOTOGRAMMETRIST - 01/06/2023 10:26 AM EDT CC: Patient presents with: Recheck: 3 month follow up HPI Jarod Rodarte is a 52 year old female who presents today for routine follow up but is ill. Has been sick for 8 days. Was prescribed a Zpack by [facility] for a virus and a nasal spray but has had no improvement. Reports chills, cough with productive sputum which is currently clear, wheezing, left ear pain, and is fatigued. Has tried OTC robitussin and tessalon with no improvement of cough. Wheezing and cough are worse at night and sleeping is difficult. Denies fever, shortness of breath, dizziness, syncope, chest pain, or sinus congestion/pressure. DIABETES MELLITUS: Ms. Rodarte denies excessive thirst or increased frequency of urination, chest pain or dyspnea , numbness, tingling or pain in extremities, new or unusual visual symptoms, low sugar/hypoglycemic reactions, weight loss/gain, lightheadedness/dizziness, and bowel changes/loose stools. Follows a diabetic diet most of the time. She is compliant with medication(s) and is tolerating med(s) without any side effects. Has not followed up with endocrinology at this time. She reports checking her glucose on a continuous schedule with sugars in the 90s-120s range. Patient's last HgA1C was Hemoglobin A1C (%) Date Value 09/02/2022 7.6 01/11/2022 7.7 01/12/2021 7.9 07/17/2020 8.2 Hemoglobin A1C (POCT) (%) Date Value 04/14/2022 8.5 ) Last Ophthalmology exam was within the past 12 months HTN and HLD: Ms. Rodarte indicates that she is feeling well and denies any symptoms referable to elevated blood pressure. Specifically denies headache, chest pain, palpitations, dyspnea, and peripheral edema. Patient denies any side effects of her medication(s) and is compliant with their regimen. She does not check BP's generally. Last 3 Encounter BP Readings: Date: BP: 01/06/2023 136/80 10/06/2022 128/80 09/24/2022 140/80 REVIEW OF SYSTEMS See HPI PAST MEDICAL HISTORY Diagnosis Date De Quervain's tenosynovitis, bilateral Depression with anxiety Diabetes (HCC) Fibromyalgia Hypercholesterolemia Hypertension IBS (irritable bowel syndrome) Raynaud's disease Restless legs syndrome (RLS) PAST SURGICAL HISTORY Procedure Laterality Date CONE OF CERVIX LOOPELEC EXCIS EXTRACTION, ERUPTED TOOTH OR EXPOSED ROOT (ELEVATION AND/OR FORCEPS REMOVAL) [place] teeth x 4 HYSTERECTOMY HX precervical cancer, removed cervix KNEE SURGERY HX 4x right and left x4 ALLERGIES Jardiance [Empagliflozin], Penicillin G, Requip [Ropinirole], and Wellbutrin [Bupropion Hcl] MEDICATIONS amLODIPine (NORVASC) 5 mg tablet Take 1 tablet by mouth once daily. aspirin, enteric coated (ASPIRIN, ENTERIC COATED) 81 mg EC tablet Take 1 tablet by mouth once daily. atenolol (TENORMIN) 50 mg tablet Take 1 tablet by mouth once daily. atorvastatin (LIPITOR) 20 mg tablet Take 1 tablet by mouth once daily. blood sugar diagnostic ([employer]CH ULTRA TEST) test strip Test blood sugar(s) 4 times daily. Dx: Type2 DM - Controlled E11.9 , Insulin: Yes Blood-Glucose Meter,Continuous (DEXCOM G6 NAVAL SCIENCE TEACHER) misc 1 Each continuous. Blood-Glucose Sensor (DEXCOM G6 SENSOR) catracho Change sensor every 10 days. USE FOR CONTINUOUS GLUCOSE MONITORING. MULTIPLE INSULIN INJECTIONS. E11.9 Blood-Glucose Sensor (DEXCOM G6 SENSOR) catracho 1 Each continuous. Blood-Glucose Transmitter (DEXCOM G6 TRANSMITTER) catracho Change transmitter every 3 months. USE FOR CONTINUOUS GLUCOSE MONITORING. MULTIPLE INSULIN INJECTIONS. E11.9 Blood-Glucose Transmitter (DEXCOM G6 TRANSMITTER) catracho 1 Each continuous. celecoxib (CELEBREX) 200 mg capsule Take 200 mg by mouth every morning. diclofenac (VOLTAREN) 1 % topical gel Apply 2 g to affected area four times daily. famotidine (PEPCID) 20 mg tablet Take 1 tablet by mouth at bedtime as needed. fenofibrate nanocrystallized (TRICOR) 145 mg tablet Take 1 tablet by mouth once daily. ferrous sulfate 325 mg (65 mg iron) tablet Take 1 tablet by mouth every other day. flash glucose scanning reader (BlendagramSTYLE CARLITO 2 READER) Use as instructed to check four times a day flash glucose sensor (FREESTYLE CARLITO 2 SENSOR) kit Check blood sugar four times a day as instructed folic acid 1 mg tablet Take 1 mg by mouth. gabapentin (NEURONTIN) 100 mg capsule Take 1 capsule by mouth twice daily for 180 days. Take one Dereje and one in afternoon. Take the 300mg before bed. gabapentin (NEURONTIN) 300 mg capsule Take 1 capsule by mouth daily at bedtime for 180 days. glucagon (GLUCAGON EMERGENCY KIT, HUMAN,) 1 mg injection Inject (1)one mg for insulin shock. insulin glargine U-300 conc (TOUJEO MAX U-300 SOLOSTAR) 300 unit/mL (3 mL) inpn Inject subcutaneously 100 units daily insulin lispro (HUMALOG KWIKPEN INSULIN) 100 unit/mL Inject 5 units with meals TID plus SS#2 (2 units for every 50 over 150) (~ 1 units for every 10 grams of carbs) TDD: 30 Insulin Bradford, Disposable, (BD ULTRAFINE III MINI PEN) 31 gauge x 3/16 Use with insulin injection 2 times daily Lancets ([employer]icsUCH ULTRASOFT LANCETS) lancets Test blood sugar(s) 4 times daily. Dx: Type 2 DM - Controlled E11.9 , Insulin: Yes losartan (COZAAR) 100 mg tablet TAKE ONE-HALF TABLET BY MOUTH ONCE DAILY metFORMIN (GLUCOPHAGE) 1,000 mg tablet Take 1 tablet by mouth twice daily with meals. montelukast (SINGULAIR) 10 mg tablet Take 1 tablet by mouth daily at bedtime. omeprazole (PRILOSEC) 20 mg capsule Take 2 capsules by mouth daily before breakfast. omeprazole (PRILOSEC) 40 mg capsule Take 1 capsule by mouth once daily. ondansetron orally disintegrating (ZOFRAN ODT) 4 mg disintegrating tablet Take 1 tablet by mouth every 6 hours as needed for nausea/vomiting. pramipexole (MIRAPEX) 0.125 mg tablet take 1 tablet by mouth every evening if needed for RESTELESS LEGS pramipexole (MIRAPEX) 0.5 mg tablet Take 1 tablet by mouth once daily. semaglutide (OZEMPIC) 1 mg/dose (4 mg/3 mL) pen Inject 1 mg subcutaneously one time a week. triamcinolone acetonide (NASACORT AQ) 55 mcg nasal inhaler Use 2 Sprays in the nose once daily. venlafaxine ER (EFFEXOR XR) 150 mg 24 hr capsule Take 1 capsule by mouth once daily. FAMILY HISTORY Problem Relation Age of Onset Hypertension Mother Breast Cancer Mother other (raynaud) Mother Parkinson s Disease Father Hyperlipidemia Father Arthritis Father Breast Cancer Maternal Grandmother other (Thrombosis) Maternal Grandfather COPD Paternal Grandmother Coronary Artery Disease Paternal Grandmother Coronary Artery Disease Paternal Grandfather other (Brock Disease) Maternal Aunt Cervical Cancer Paternal Aunt Heart Paternal Aunt Factor 5 Leiden Paternal cousin Social History Tobacco Use Smoking status: Every Day Packs/day: 0.50 Years: 31.00 Additional pack years: 0.00 Total pack years: 15.50 Types: Cigarettes Smokeless tobacco: Never Vaping Use Vaping Use: Never used Substance Use Topics Alcohol use: No Drug use: No PHYSICAL EXAM BP 136/80 Pulse 86 Resp 16 Wt 80.3 kg (177 lb) SpO2 97% BMI 29.45 kg/m General Appearance: alert, ill and tired appearing Skin: Skin color, texture, turgor normal for age; Eyes: conjunctiva pink and moist, no icterus, sclera white, non-injected Ears: external ears normal to inspection and palpation, canals clear, Left tympanic membrane slightly red with fluid. No bulging or tenderness. Just finished with coughing prior to evaluation. , Right tympanic membrane normal Nose/sinus: Nares normal. Septum midline. Mucosa normal. No drainage. No sinus tenderness Neck: Thyroid normal size and symmetric without palpable nodules, Neck supple, No adenopathy Oropharynx: tongue midline and normal, soft palate, uvula, and tonsils normal, palpation of salivary glands negative Lymph nodes: No cervical lymphadenopathy and No supraclavicular lymphadenopathy Lungs: Lungs clear to auscultation. No wheezing, rhonchi, rales. Heart: RRR without murmur, gallop, or rubs. No ectopy Health maintenance reviewed with patient: Hepatitis B Vaccine(1 of 3 - 3-dose series) Never done Colorectal Cancer Screening Never done Pap Testing due on 11/30/2018 HPV Testing due on 11/30/2018 Shingrix Vaccine(1 of 2) Never done Mammogram Screening due on 04/05/2020 Diabetic Foot Exam due on 06/12/2022 BP Controlled (<130/80) due on 09/11/2022 Influenza Vaccine(1) due on 11/26/2022 Covid-19 Vaccine( season) due on 11/26/2022 Dilated Retinal Exam due on 01/28/2023 HbA1C due on 03/04/2023 Urine Albumin:Creatinine Ratio due on 09/03/2023 LDL Cholesterol due on 09/03/2023 Annual PCP Team Chronic Disease Visit due on 10/07/2023 DTaP,Tdap,Td Vaccine(2 - Td or Tdap) due on 03/28/2024 Pneumococcal Vaccine(3 - PPSV23 or PCV20) due on 2034 Hepatitis C Screening Completed HIV Screening Completed DATA REVIEWED: Most recent labs ASSESSMENT/PLAN: 1. Type 2 diabetes mellitus with diabetic nephropathy, with long-term current use of insulin (HCC) - ICD9: 250.40, 583.81, V58.67, ICD10: E11.21, Z79.4 (primary diagnosis) - Controlled - Continue current medications - Blood glucose monitoring on a continuous glucose monitoring schedule - Counseled on healthy diet and regular exercise - Discussed need for and benefit of weight loss. BMI 29.45 kg/(m^2) - COMP METABOLIC PANEL - CBC + DIFF 2. Essential hypertension - ICD9: 401.9, ICD10: I10 - Sub optimal control most likely due to illness - Continue current medications - Recommend home blood pressure monitoring, to bring results to next visit - Encouraged sodium restriction, DASH or Mediterranean diet - Recommend regular aerobic exercise - HGB A1C - COMP METABOLIC PANEL - CBC + DIFF 3. Acute cough - ICD9: 786.2, ICD10: R05.1 - possible result of sinusitis with post nasal drip as this is worsened at night with laying down. Has been present for 8 days days and getting worse. Will start on doxy and get CXR to further evaluate - XR CHEST 2V FRONTAL/LAT - HYDROCODONE 10 MG-CHLORPHENIRAMINE 8 MG/5 ML ORAL SUSP EXTEND.REL 12HR - follow up in 3-5 days if no improvement or for worsening symptoms PDMP website checked and validated. All prescriptions have been APPROPRIATELY filled. No suspiciousactivity was identified. 01/06/2023 by Gela Medina APRN.AERIAL PHOTOGRAMMETRIST 4. Wheezing - ICD9: 786.07, ICD10: R06.2 Asn above - XR CHEST 2V FRONTAL/LAT 5. Medication management - ICD9: V58.69, ICD10: Z79.899 - COMP METABOLIC PANEL 6. Left ear pain - ICD9: 388.70, ICD10: H92.02 - slight redness possibly from coughing prior to exam. Starting on doxy for possible sinusitis so will treat as well if start of otitis media Prescription instructions reviewed with patient as applicable. Potential red flag symptoms discussed with the patient. Reviewed appropriate action plan to take if red flag symptoms occur. Patient agreeable to treatment plan. Gela Medina APRN.CNP documented in this encounterPromed[facility]10-[facility]23 Miscellaneous Notes* Telephone Encounter - Gudelia Ramirez LPN - 01/04/2023 11:36 AM EDT Patient notified that she has refills of Dexcom catracho, she will contact mail order pharmacy. Gudelia Ramirez LPN documented in this encounterPromedica [facility]09-20-2023 Telephone encounter Note * Telephone Encounter - Valeria Jones - 12/15/2022 4:00 PM EDT Ordering provider: Dr. Paiz Date of last office visit: 09/14/2022 Date of next office visit: 03/10/2023 Updated/Validated preferred pharmacy: Yes Patient instructed to contact the pharmacy prior to picking up the medication: No (1) Medication name: hydroxychloroquine (Plaquenil) 200 MG tablet Medication dosage: 200 mg (Miligrams Monthly quantity needed: 60 How many day supply requestin days Medication route: oral (PO) Medication administration time(s): Take 2 tablets (400 mg) by mouth daily. If taking medication PRN, reason for taking medication: N/A If this is a controlled substance do you receive this or any other controlled medication from any other doctor or facility: No Date of last refill (see medication tab): 09/14/2022 (2) Medication name: celecoxib (CeleBREX) 200 MG capsule Medication dosage: 200 mg (Miligrams Monthly quantity needed: 30 How many day supply requestin days Medication route: oral (PO) Medication administration time(s): daily If taking medication PRN, reason for taking medication: N/A If this is a controlled substance do you receive this or any other controlled medication from any other doctor or facility: No Date of last refill (see medication tab): 09/14/2022 [id number] Miscellaneous Notes* Telephone Encounter - Valeria Jones - 12/15/2022 4:00 PM EDT Ordering provider: Dr. Paiz Date of last office visit: 09/14/2022 Date of next office visit: 03/10/2023 Updated/Validated preferred pharmacy: Yes Patient instructed to contact the pharmacy prior to picking up the medication: No (1) Medication name: hydroxychloroquine (Plaquenil) 200 MG tablet Medication dosage: 200 mg (Miligrams Monthly quantity needed: 60 How many day supply requestin days Medication route: oral (PO) Medication administration time(s): Take 2 tablets (400 mg) by mouth daily. If taking medication PRN, reason for taking medication: N/A If this is a controlled substance do you receive this or any other controlled medication from any other doctor or facility: No Date of last refill (see medication tab): 09/14/2022 (2) Medication name: celecoxib (CeleBREX) 200 MG capsule Medication dosage: 200 mg (Miligrams Monthly quantity needed: 30 How many day supply requestin days Medication route: oral (PO) Medication administration time(s): daily If taking medication PRN, reason for taking medication: N/A If this is a controlled substance do you receive this or any other controlled medication from any other doctor or facility: No Date of last refill (see medication tab): 09/14/2022 documented in this encounterSMansfield [id number] Telephone encounter Note* Telephone Encounter - Madeline Omalley MA - 12/09/2022 11:31 AM EDT Medication: Plaquenil 200 mg Refills: 09/14/22 60 tablets Take 2 tablets (400 mg) by mouth daily. Rf 3 LARA: 09/14/22 NOV: 03/10/23 Labs: 09/14/22 Eye exam: None Medication: Celecoxib 200MG CAPS Refills: 09/14/22 30 capsules Take 1 capsule (200 mg) by mouth daily. Rf 2 LARA: 09/14/22 NOV: 03/10/23 Labs: 09/14/22 Eye exam: DUE TO PROVIDER OUT OF OFFICE PT APPT MOVED FROM December TO February 2023 [id number] Miscellaneous Notes* Telephone Encounter - Mdaeline Omalley MA - 12/09/2022 11:31 AM EDT Medication: Plaquenil 200 mg Refills: 09/14/22 60 tablets Take 2 tablets (400 mg) by mouth daily. Rf 3 LARA: 09/14/22 NOV: 03/10/23 Labs: 09/14/22 Eye exam: None Medication: Celecoxib 200MG CAPS Refills: 09/14/22 30 capsules Take 1 capsule (200 mg) by mouth daily. Rf 2 LARA: 09/14/22 NOV: 03/10/23 Labs: 09/14/22 Eye exam: DUE TO PROVIDER OUT OF OFFICE PT APPT MOVED FROM December TO February 2023 documented in this encounterSMansfield [id number] Telephone encounter Note* Telephone Encounter - Karen Burger - 12/08/2022 11:52 AM EDT Message released to patient as written. Patient's further questions if applicable: Were all questions from office addressed or relayed to the patient from encounter: Yes. The patientsaid that is absolutely fine. [id number] Miscellaneous Notes* Telephone Encounter - Karen Burger - 12/08/2022 11:52 AM EDT Message released to patient as written. Patient's further questions if applicable: Were all questions from office addressed or relayed to the patient from encounter: Yes. The patientsaid that is absolutely fine. * Telephone Encounter - Madeline Omalley MA - 12/08/2022 11:16 AM EDT Mychart messaged pt and mailed reschedule letter for pt acknowledgement of appt change. documented in this encounterSMansfield [id number] Telephone encounter Note* Telephone Encounter - Madeline Omalley MA - 12/08/2022 11:16 AM EDT Mychart messaged pt and mailed reschedule letter for pt acknowledgement of appt change. [id number] Miscellaneous Notes* Telephone Encounter - Anjelica Morales RN - 11/02/2022 10:56 AM EDT See Other Telephone Encounter * Telephone Encounter - Liyah Willett, RN - 10/21/2022 12:59 PM EDT Called pt and she states she has been on vacation but has not heard from anyone on her Dexcom. Pt instructed to call her insurance company and see who does DME and then call to see if they received the fax and when she can expect to get it. Pt states sugars have been doing better. Still having problems with her meter. * Telephone Encounter - Destiney Briceno Ma - 10/04/2022 9:27 AM EDT Forms faxed again. * Telephone Encounter - Wanda Holloway LPN - 10/04/2022 8:18 AM EDT Pt called in to see where things are at with Blood Glucose Dexcom G6. Please advise pt. Last phone note shows form was faxed on 09-22-22. Please advise pt. FYI : pt wanted you to know she had an episode on Tuesday10-01-22 where her sugar went down into the 50s and her meter did not go off. Pt reports she almost passed out. She had a neighbor who helped her by giving her juice. This helped bring her sugar back up. Wanda Holloway LPM documented in this encounterPromed[facility]07-12-2023 History of Present illness Narrative* Gela Medina APRN.AERIAL PHOTOGRAMMETRIST - 10/06/2022 11:07 AM EDT CC: Patient presents with: Recheck: 2 week follow up HPI Jarod Rodarte is a 51 year old female who presents today for follow up on upper abdominal painand nasuea. Patient last seen 2 weeks ago with concerns of severe low blood sugar a few weeks prior and has hadupper abdominal pain and nausea since this occurred. At that time patient was also started on higher dose of Ozempic. Lab work unremarkable Patient reports that pain has resolved. Has 1 episode of vomiting a week which is accompanied by nausea. Has intermittent nausea as well but thinks this may be a result of her methotrexate. Blood sugar was 50 this past Tuesday between lunch and dinner. Did not have any vomiting that day and had eaten as normal. Had difficulty speaking and felt faint. Blood sugar came up with glucose gel and juice. Is waiting for her dexcom as her current meter is not working and gave no warning of the lowering glucose. REVIEW OF SYSTEMS General: no fevers, no chills, no night sweats, no recurrent infections, no change in appetite, no change in energy, and no significant changes in weight Respiratory: no cough, no wheezing, no shortness of breath, no hemoptysis Cardiovascular: no chest pain, no chest pressure, no palpitations, and no swelling GI: See HPI : No history of dysuria, frequency or incontinence Neurologic: No headache, weakness, numbness, tingling, dizziness, memory loss, syncope. PAST MEDICAL HISTORY Diagnosis Date De Quervain's tenosynovitis, bilateral Depression with anxiety Diabetes (HCC) Fibromyalgia Hypercholesterolemia Hypertension IBS (irritable bowel syndrome) Raynaud's disease Restless legs syndrome (RLS) PAST SURGICAL HISTORY Procedure Laterality Date CONE OF CERVIX LOOPELEC EXCIS EXTRACTION, ERUPTED TOOTH OR EXPOSED ROOT (ELEVATION AND/OR FORCEPS REMOVAL) [place] teeth x 4 HYSTERECTOMY HX precervical cancer, removed cervix KNEE SURGERY HX 4x right and left x4 ALLERGIES Jardiance [Empagliflozin], Penicillin G, Requip [Ropinirole], and Wellbutrin [Bupropion Hcl] MEDICATIONS pramipexole (MIRAPEX) 0.125 mg tablet take 1 tablet by mouth every evening if needed for RESTELESS LEGS omeprazole (PRILOSEC) 20 mg capsule Take 2 capsules by mouth daily before breakfast. omeprazole (PRILOSEC) 40 mg capsule Take 1 capsule by mouth once daily. Blood-Glucose Meter,Continuous (DEXCOM G6 NAVAL SCIENCE TEACHER) misc 1 Each continuous. Blood-Glucose Sensor (DEXCOM G6 SENSOR) catracho 1 Each continuous. Blood-Glucose Transmitter (DEXCOM G6 TRANSMITTER) catracho 1 Each continuous. insulin glargine U-300 conc (TOUJEO MAX U-300 SOLOSTAR) 300 unit/mL (3 mL) inpn Inject subcutaneously 100 units daily glucagon (GLUCAGON EMERGENCY KIT, HUMAN,) 1 mg injection Inject (1)one mg for insulin shock. semaglutide (OZEMPIC) 1 mg/dose (4 mg/3 mL) pen Inject 1 mg subcutaneously one time a week. ferrous sulfate 325 mg (65 mg iron) tablet Take 1 tablet by mouth every other day. gabapentin (NEURONTIN) 300 mg capsule Take 1 capsule by mouth daily at bedtime for 180 days. gabapentin (NEURONTIN) 100 mg capsule Take 1 capsule by mouth twice daily for 180 days. Take one Dereje and one in afternoon. Take the 300mg before bed. venlafaxine ER (EFFEXOR XR) 150 mg 24 hr capsule Take 1 capsule by mouth once daily. montelukast (SINGULAIR) 10 mg tablet Take 1 tablet by mouth daily at bedtime. amLODIPine (NORVASC) 5 mg tablet Take 1 tablet by mouth once daily. atenolol (TENORMIN) 50 mg tablet Take 1 tablet by mouth once daily. atorvastatin (LIPITOR) 20 mg tablet Take 1 tablet by mouth once daily. fenofibrate nanocrystallized (TRICOR) 145 mg tablet Take 1 tablet by mouth once daily. metFORMIN (GLUCOPHAGE) 1,000 mg tablet Take 1 tablet by mouth twice daily with meals. losartan (COZAAR) 100 mg tablet TAKE ONE-HALF TABLET BY MOUTH ONCE DAILY pramipexole (MIRAPEX) 0.5 mg tablet Take 1 tablet by mouth once daily. flash glucose scanning reader (BlendagramSTYLE CARLITO 2 READER) Use as instructed to check four times a day flash glucose sensor (FREESTYLE CARLITO 2 SENSOR) kit Check blood sugar four times a day as instructed insulin lispro (HUMALOG KWIKPEN INSULIN) 100 unit/mL Inject 5 units with meals TID plus SS#2 (2 units for every 50 over 150) (~ 1 units for every 10 grams of carbs) TDD: 30 Blood-Glucose Sensor (DEXCOM G6 SENSOR) catracho Change sensor every 10 days. USE FOR CONTINUOUS GLUCOSE MONITORING. MULTIPLE INSULIN INJECTIONS. E11.9 Blood-Glucose Transmitter (DEXCOM G6 TRANSMITTER) catracho Change transmitter every 3 months. USE FOR CONTINUOUS GLUCOSE MONITORING. MULTIPLE INSULIN INJECTIONS. E11.9 celecoxib (CELEBREX) 200 mg capsule Take 200 mg by mouth every morning. folic acid 1 mg tablet Take 1 mg by mouth. diclofenac (VOLTAREN) 1 % topical gel Apply 2 g to affected area four times daily. blood sugar diagnostic (ONETOUCH ULTRA TEST) test strip Use to test blood sugars twice daily as instructed Insulin Bradford, Disposable, (BD ULTRAFINE III MINI PEN) 31 gauge x 3/16 Use with insulin injection 2 times daily triamcinolone acetonide (NASACORT AQ) 55 mcg nasal inhaler Use 2 Sprays in the nose once daily. aspirin, enteric coated (ASPIRIN, ENTERIC COATED) 81 mg EC tablet Take 1 tablet by mouth once daily. FAMILY HISTORY Problem Relation Age of Onset Hypertension Mother Breast Cancer Mother other (raynaud) Mother Parkinson s Disease Father Hyperlipidemia Father Arthritis Father Breast Cancer Maternal Grandmother other (Thrombosis) Maternal Grandfather COPD Paternal Grandmother Coronary Artery Disease Paternal Grandmother Coronary Artery Disease Paternal Grandfather other ([place] Disease) Maternal Aunt Cervical Cancer Paternal Aunt Heart Paternal Aunt Factor 5 Leiden Paternal cousin Social History Tobacco Use Smoking status: Every Day Packs/day: 0.50 Years: 31.00 Total pack years: 15.50 Types: Cigarettes Smokeless tobacco: Never Vaping Use Vaping Use: Never used Substance Use Topics Alcohol use: No Drug use: No PHYSICAL EXAM BP 128/80 Pulse 80 Resp 16 Wt 80.3 kg (177 lb) BMI 29.45 kg/m General Appearance: well appearing, in no acute distress, alert Skin: Skin color, texture, turgor normal for age; Eyes: conjunctiva pink and moist, no icterus, sclera white, non-injected Lungs: Lungs clear to auscultation. No wheezing, rhonchi, rales. Heart: RRR without murmur, gallop, or rubs. No ectopy Abdomen: Abdomen soft, non-tender. Bowel sounds normal. No masses, organomegaly Health maintenance reviewed with patient: HEPATITIS B(1 of 3 - 3-dose series) Never done COLORECTAL CANCER SCREENING Never done PAP TESTING due on 11/30/2018 HPV TESTING due on 11/30/2018 SHINGRIX VACCINE(1 of 2) Never done MAMMOGRAM due on 04/05/2020 COVID-19 VACCINE(4 - Moderna series) due on 05/27/2021 DIABETIC FOOT EXAM due on 06/12/2022 BP CONTROLLED (<130/80) due on 09/11/2022 INFLUENZA(1) due on 11/26/2022 DILATED RETINAL EXAM due on 01/28/2023 HBA1C due on 03/04/2023 URINE ALBUMIN:CREATININE RATIO due on 09/03/2023 LDL CHOLESTEROL due on 09/03/2023 ANNUAL PCP TEAM CHRONIC DISEASE VISIT due on 09/25/2023 DTAP,TDAP,TD(2 - Td or Tdap) due on 03/28/2024 PNEUMOCOCCAL(3 - PPSV23 or PCV20) due on 2034 HEPATITIS C SCREENING Completed HIV SCREENING Completed DATA REVIEWED: Most recent labs ASSESSMENT/PLAN: 1. Epigastric pain - ICD9: 789.06, ICD10: R10.13 (primary diagnosis) - has resolved - assessment normal - discussed concern of ozempic at higher dose is cause. Patient, since she has bene steadily improving, would like to monitor this for further improvement. If any reoccurrence patient agreeable to goback on lower dose. 2. Nausea and vomiting, unspecified vomiting type - ICD9: 787.01, ICD10: R11.2 - much improvement. With the episode of low blood sugar, will prescribe zofran as it is fast actingand low side effects to help prevent a decrease in dietary intake - ONDANSETRON 4 MG DISINTEGRATING TABLET 3. Low blood sugar - ICD9: 251.2, ICD10: E16.2 As above - for any further episodes, ozempic needs decreased. - ONDANSETRON 4 MG DISINTEGRATING TABLET Prescription instructions reviewed with patient as applicable. Potential red flag symptoms discussed with the patient. Reviewed appropriate action plan to take if red flag symptoms occur. Patient agreeable to treatment plan. Gela Medina APRN.CNP documented in this encounterPromedica [facility]06-30-2023 History of Present illness Narrative* Gela Medina APRN.CNP - 09/24/2022 8:44 AM EDT CC: Patient presents with: Recheck: Follow up HPI Jarod Rodarte is a 51 year old female who presents today for follow up on RLS and extreme fatigue in the evenings. At last visit found patient to be taking full doses of neurontin and pramipexole in evening becauseof RLS symptoms that would occur when she would sit down to rest. Low dose pramipexole added to evening as needed and other meds to be taken closer to bed time. RLS and evening sleepiness has much improved with change to regimen. DIABETES MELLITUS: Ms. Rodarte denies excessive thirst or increased frequency of urination, chest pain or dyspnea , numbness, tingling or pain in extremities, new or unusual visual symptoms, low sugar/hypoglycemic reactions, weight loss/gain, lightheadedness/dizziness, and bowel changes/loose stools. Follows a diabetic diet most of the time. She is compliant with medication(s) and is tolerating med(s) without any side effects. She reports checking her glucose on a continuous schedule with average in the 130s but the freestyle carlito will have a 60 point difference from a finger stick and recently had a dexcom ordered. Patient's last HgA1C was Hemoglobin A1C (%) Date Value 09/02/2022 7.6 01/11/2022 7.7 01/12/2021 7.9 07/17/2020 8.2 Hemoglobin A1C (POCT) (%) Date Value 04/14/2022 8.5 ) Albumin/Creat ratio is very elevated. Endo consulted her to nephrology but patient was eating largeamounts of protein and thinks this may have been the cause. Saw endocrinology and had a change to her insulin which resulted in severe low blood sugar and going to ER on 09/08/22. Blood sugar was improving after going to ER so left without being seen. Has not had issues since the toujeo decreased to 100 from 140 once a day. Since the low blood sugars, she has had terrible belching, with a burning sensation to belly sometimes when she eats and feels very bloated and nauseated. States sometimes as soon as she eats she haspain. Did have normal liver enzymes last week. Denies fever chill, or bowel changes. Was started onozempic at time to low blood sugar, but patient states she has had this on and off for the past prior to ozempic. REVIEW OF SYSTEMS General: no fevers, no chills, no night sweats, no recurrent infections, no change in appetite, no change in energy, and no significant changes in weight Respiratory: no cough, no wheezing, no shortness of breath, no hemoptysis Cardiovascular: no chest pain, no chest pressure, no palpitations, and no swelling GI: See HPI : No history of dysuria, frequency or incontinence Endocrine: no fatigue, no cold intolerance, no heat intolerance, no polyuria, no polyphagia, and nopolydipsia Neurologic: No headache, weakness, numbness, tingling, dizziness, memory loss, syncope. PAST MEDICAL HISTORY Diagnosis Date De Quervain's tenosynovitis, bilateral Depression with anxiety Diabetes (HCC) Fibromyalgia Hypercholesterolemia Hypertension IBS (irritable bowel syndrome) Raynaud's disease Restless legs syndrome (RLS) PAST SURGICAL HISTORY Procedure Laterality Date CONE OF CERVIX LOOPELEC EXCIS EXTRACTION, ERUPTED TOOTH OR EXPOSED ROOT (ELEVATION AND/OR FORCEPS REMOVAL) [place] teeth x 4 HYSTERECTOMY HX precervical cancer, removed cervix KNEE SURGERY HX 4x right and left x4 ALLERGIES Jardiance [Empagliflozin], Penicillin G, Requip [Ropinirole], and Wellbutrin [Bupropion Hcl] MEDICATIONS pramipexole (MIRAPEX) 0.125 mg tablet take 1 tablet by mouth every evening if needed for RESTELESS LEGS gabapentin (NEURONTIN) 300 mg capsule Take 1 capsule by mouth daily at bedtime for 180 days. gabapentin (NEURONTIN) 100 mg capsule Take 1 capsule by mouth twice daily for 180 days. Take one Dereje and one in afternoon. Take the 300mg before bed. pramipexole (MIRAPEX) 0.5 mg tablet Take 1 tablet by mouth once daily. Blood-Glucose Meter,Continuous (DEXCOM G6 NAVAL SCIENCE TEACHER) misc 1 Each continuous. Blood-Glucose Sensor (DEXCOM G6 SENSOR) catracho 1 Each continuous. Blood-Glucose Transmitter (DEXCOM G6 TRANSMITTER) catracho 1 Each continuous. insulin glargine U-300 conc (TOUJEO MAX U-300 SOLOSTAR) 300 unit/mL (3 mL) inpn Inject subcutaneously 100 units daily glucagon (GLUCAGON EMERGENCY KIT, HUMAN,) 1 mg injection Inject (1)one mg for insulin shock. semaglutide (OZEMPIC) 1 mg/dose (4 mg/3 mL) pen Inject 1 mg subcutaneously one time a week. ferrous sulfate 325 mg (65 mg iron) tablet Take 1 tablet by mouth every other day. venlafaxine ER (EFFEXOR XR) 150 mg 24 hr capsule Take 1 capsule by mouth once daily. montelukast (SINGULAIR) 10 mg tablet Take 1 tablet by mouth daily at bedtime. amLODIPine (NORVASC) 5 mg tablet Take 1 tablet by mouth once daily. atenolol (TENORMIN) 50 mg tablet Take 1 tablet by mouth once daily. atorvastatin (LIPITOR) 20 mg tablet Take 1 tablet by mouth once daily. fenofibrate nanocrystallized (TRICOR) 145 mg tablet Take 1 tablet by mouth once daily. metFORMIN (GLUCOPHAGE) 1,000 mg tablet Take 1 tablet by mouth twice daily with meals. losartan (COZAAR) 100 mg tablet TAKE ONE-HALF TABLET BY MOUTH ONCE DAILY omeprazole (PRILOSEC) 20 mg capsule Take 1 capsule by mouth daily before breakfast. flash glucose scanning reader (BlendagramSTYLE CARLITO 2 READER) Use as instructed to check four times a day flash glucose sensor (FREESTYLE CARLITO 2 SENSOR) kit Check blood sugar four times a day as instructed insulin lispro (HUMALOG KWIKPEN INSULIN) 100 unit/mL Inject 5 units with meals TID plus SS#2 (2 units for every 50 over 150) (~ 1 units for every 10 grams of carbs) TDD: 30 Blood-Glucose Sensor (DEXCOM G6 SENSOR) catracho Change sensor every 10 days. USE FOR CONTINUOUS GLUCOSE MONITORING. MULTIPLE INSULIN INJECTIONS. E11.9 Blood-Glucose Transmitter (DEXCOM G6 TRANSMITTER) catracho Change transmitter every 3 months. USE FOR CONTINUOUS GLUCOSE MONITORING. MULTIPLE INSULIN INJECTIONS. E11.9 celecoxib (CELEBREX) 200 mg capsule Take 200 mg by mouth every morning. folic acid 1 mg tablet Take 1 mg by mouth. diclofenac (VOLTAREN) 1 % topical gel Apply 2 g to affected area four times daily. blood sugar diagnostic (OokbeeTOUCH ULTRA TEST) test strip Use to test blood sugars twice daily as instructed Insulin Bradford, Disposable, (BD ULTRAFINE III MINI PEN) 31 gauge x 3/16 Use with insulin injection 2 times daily triamcinolone acetonide (NASACORT AQ) 55 mcg nasal inhaler Use 2 Sprays in the nose once daily. aspirin, enteric coated (ASPIRIN, ENTERIC COATED) 81 mg EC tablet Take 1 tablet by mouth once daily. FAMILY HISTORY Problem Relation Age of Onset Hypertension Mother Breast Cancer Mother other (raynaud) Mother Parkinson s Disease Father Hyperlipidemia Father Arthritis Father Breast Cancer Maternal Grandmother other (Thrombosis) Maternal Grandfather COPD Paternal Grandmother Coronary Artery Disease Paternal Grandmother Coronary Artery Disease Paternal Grandfather other (Tensas Disease) Maternal Aunt Cervical Cancer Paternal Aunt Heart Paternal Aunt Factor 5 Leiden Paternal cousin Social History Tobacco Use Smoking status: Every Day Packs/day: 0.50 Years: 31.00 Pack years: 15.50 Types: Cigarettes Smokeless tobacco: Never Vaping Use Vaping Use: Never used Substance Use Topics Alcohol use: No Drug use: No PHYSICAL EXAM BP 140/80 Pulse 84 Temp 36.1 C (96.9 F) (Temporal) Resp 16 Wt 81.2 kg (179 lb) SpO2 97% BMI 29.79 kg/m General Appearance: well appearing, in no acute distress, alert Skin: Skin color, texture, turgor normal for age; Eyes: conjunctiva pink and moist, no icterus, sclera white, non-injected Lungs: Lungs clear to auscultation. No wheezing, rhonchi, rales. Heart: RRR without murmur, gallop, or rubs. No ectopy Abdomen: Abdomen soft, Bowel sounds normal. No masses, organomegaly. Mid epigastric tenderness withsome grimacing. No rigidity, guarding or rebound tenderness. Extremities: No deformities, edema, skin discoloration, clubbing or cyanosis. Good capillary refill. Health maintenance reviewed with patient: HEPATITIS B(1 of 3 - 3-dose series) Never done COLORECTAL CANCER SCREENING Never done PAP TESTING due on 11/30/2018 HPV TESTING due on 11/30/2018 SHINGRIX VACCINE(1 of 2) Never done MAMMOGRAM due on 04/05/2020 COVID-19 VACCINE(4 - Booster for Moderna series) due on 05/27/2021 DIABETIC FOOT EXAM due on 06/12/2022 DILATED RETINAL EXAM due on 01/28/2023 HBA1C due on 03/04/2023 ANNUAL PCP TEAM CHRONIC DISEASE VISIT due on 07/15/2023 BP CONTROLLED (<130/80) due on 07/15/2023 URINE ALBUMIN:CREATININE RATIO due on 09/03/2023 LDL CHOLESTEROL due on 09/03/2023 DTAP,TDAP,TD(2 - Td or Tdap) due on 03/28/2024 PNEUMOCOCCAL(3 - PPSV23 if available, else PCV20) due on 2034 INFLUENZA Completed HEPATITIS C SCREENING Completed HIV SCREENING Completed DATA REVIEWED: Most recent labs ASSESSMENT/PLAN: 1. RLS (restless legs syndrome) - ICD9: 333.94, ICD10: G25.81 (primary diagnosis) - controlled well with current treatment, will continue - PRAMIPEXOLE 0.125 MG TABLET 2. Epigastric pain - ICD9: 789.06, ICD10: R10.13 - increasing omeprazole, may need to add pepcid. - if no pancreatitis, and no improve with omeprazole, will need to hold ozempic and/or have furtherevaluation with CT and EGD. - LIPASE BLD - AMYLASE BLD - CBC + DIFF - follow up in 2 weeks. 3. Nausea and vomiting, unspecified vomiting type - ICD9: 787.01, ICD10: R11.2 As above - LIPASE BLD - AMYLASE BLD - CBC + DIFF - UA DIP, URINE (POC) - left without urine being checked. Urinalysis ordered for her to come to labto have completed. 4. Leukocytosis, unspecified type - ICD9: 288.60, ICD10: D72.829 - slightly elevated on recent blood work ordered by rheumatology. - CBC + DIFF - UA DIP, URINE (POC) 5. Gastroesophageal reflux disease without esophagitis - ICD9: 530.81, ICD10: K21.9 -see #2 - Discussed lifestyle modifications including losing weight, limiting caffeine, no meals three hours before sleep, and head of bed elevation - OMEPRAZOLE 20 MG CAPSULE,DELAYED RELEASE 6. Type 2 diabetes mellitus with diabetic nephropathy, with long-term current use of insulin ([facility]) - ICD9: 250.40, 583.81, V58.67, ICD10: E11.21, Z79.4 - Controlled - Continue current medications - Blood glucose monitoring on a continuous glucose monitoring schedule - Counseled on healthy diet and regular exercise - Discussed need for and benefit of weight loss. BMI 29.79 kg/(m^2) Prescription instructions reviewed with patient as applicable. Potential red flag symptoms discussed with the patient. Reviewed appropriate action plan to take if red flag symptoms occur. Patient agreeable to treatment plan. Gela Medina APRN.CNP documented in this encounterPromed[facility]06-28-2023 Miscellaneous Notes* Telephone Encounter - Valeria Melendez LPN - 09/22/2022 2:14 PM EDT Forms were faxed to number on form as requested. * Telephone Encounter - Gela Medina APRN.CNP - 09/22/2022 2:02 PM EDT Forms filled out. Please fax as requested. Thank you Gela Medina APRN.CNP * Telephone Encounter - Shy Linares LPN - 09/22/2022 10:25 AM EDT On providers desk * Telephone Encounter - Yodit Aranda Ma - 09/22/2022 7:37 AM EDT Patient insurance requires [employer] for CGM/supplies. Please fill out form and fax with rx, office note, and insurance card. If PA is needed medical supply company handles that not provider office. Yodit Aranda Ma documented in this encounterPromedica [facility]ost[facility]06-28-2023 Miscellaneous Notes* Telephone Encounter - Shy Linares LPN - 09/22/2022 8:26 AM EDT Patient notified verbalized understanding. * Telephone Encounter - Smiley Borja PA-C - 09/22/2022 7:23 AM EDT Please call patient and let her know that yes, those are common side effects with that class of medications. Advise that she discuss this more in depth with Gela at her f/u appt on Tuesday. Smiley Borja PA-C * Telephone Encounter - Oliva Bravo RN - 09/21/2022 9:26 AM EDT Patient calling to check on status of [facility] message sent on 09/19 as copied below. Patient reports sx'sincreased at about the time Ozempic was started (a couple weeks ago) and wonders if her sx's are from the Ozempic. Pt does not want to stop the Ozempic. SX's: -daily mild nausea, no vomiting -soft stools, no diarrhea -sulfur burps -decreased appetite -denies fever Pt asking if available provider can recommend or order her something to help her sx's today? Thank you September 19, 2022 Jarod Rodarte gela, Im having really bad sulfar burps and stomach pains from it, im already on a pre and probiotic, cananything be perscribed for this? Can it be the ozempic causing this? Anil Kellogg documented in this encounterPromed[facility]06-27-2023 Miscellaneous Notes* Telephone Encounter - Oliva Bravo RN - 09/21/2022 9:35 AM EDT See TE for 09/21/22. Will close this encounter. Oliva Bravo RN documented in this encounterPromedica [facility]06-23-2023 Miscellaneous Notes* Telephone Encounter - Sharon Reyes LPN - 09/17/2022 2:03 PM EDT Noted and patient notified. Sharon Reyes LPN * Telephone Encounter - Gela Medina APRN.CNP - 09/17/2022 12:49 PM EDT Prescriptions sent as requested. Thank you Gela Medina APRN.HAYLEE * Telephone Encounter - Najma Canas LPN - 09/17/2022 10:58 AM EDT Patient calling, states that she is in between endocrinologists at this time. She currently have a Carlito but is having a lot of issues with the sensors not working. Asking if a Dexcom could be ordered instead. Would like it sent to [facility] Please advise. documented in this encounterPromedica Fostoria [facility]06-20-2023 History of Present illness Narrative* Olimpia Anne MD - 09/14/2022 12:30 PM EDT [facility] [address] [place] [address] Patient: Jarod Rodarte MR Number: [id number] : 1970 Date of Visit: 09/14/2022 Primary Care Provider: Melyssa Mobley MD Visit type: Established patient Reason for Visit: Follow-up (RA) Assessment and Plan Jarod was seen today for follow-up. Diagnoses and all orders for this visit: 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) (HCC) (Primary) - folic acid (Folvite) 1 MG tablet; Take 3 tablets (3 mg) by mouth daily. - methotrexate 2.5 MG tablet; Take 8 tablets (20 mg total) by mouth 1 (one) time per week. Follow directions carefully, and ask to explain any part you do not understand. Take exactly as directed. - hydroxychloroquine (Plaquenil) 200 MG tablet; Take 2 tablets (400 mg) by mouth daily. - celecoxib (CeleBREX) 200 MG capsule; Take 1 capsule (200 mg) by mouth daily. High risk medication use - folic acid (Folvite) 1 MG tablet; Take 3 tablets (3 mg) by mouth daily. - C-reactive protein; Future - Sedimentation rate, automated; Future - Comprehensive metabolic panel; Future - CBC auto differential; Future - Hepatitis B core antibody, IgM; Future - Hepatitis B core antibody, total; Future - Hepatitis B surface antibody; Future - Hepatitis B surface antigen; Future - Hepatitis C antibody; Future - QUANTIFERON TB GOLD; Future - C-reactive protein - Sedimentation rate, automated - Comprehensive metabolic panel - CBC auto differential - Hepatitis B core antibody, IgM - Hepatitis B core antibody, total - Hepatitis B surface antibody - Hepatitis B surface antigen - Hepatitis C antibody - QUANTIFERON TB GOLD Multiple joint pain Special screening examination for viral disease - C-reactive protein; Future - Sedimentation rate, automated; Future - Comprehensive metabolic panel; Future - CBC auto differential; Future - Hepatitis B core antibody, IgM; Future - Hepatitis B core antibody, total; Future - Hepatitis B surface antibody; Future - Hepatitis B surface antigen; Future - Hepatitis C antibody; Future - QUANTIFERON TB GOLD; Future - C-reactive protein - Sedimentation rate, automated - Comprehensive metabolic panel - CBC auto differential - Hepatitis B core antibody, IgM - Hepatitis B core antibody, total - Hepatitis B surface antibody - Hepatitis B surface antigen - Hepatitis C antibody - QUANTIFERON TB GOLD Blood tests prior to treatment or procedure - C-reactive protein; Future - Sedimentation rate, automated; Future - Comprehensive metabolic panel; Future - CBC auto differential; Future - Hepatitis B core antibody, IgM; Future - Hepatitis B core antibody, total; Future - Hepatitis B surface antibody; Future - Hepatitis B surface antigen; Future - Hepatitis C antibody; Future - QUANTIFERON TB GOLD; Future - C-reactive protein - Sedimentation rate, automated - Comprehensive metabolic panel - CBC auto differential - Hepatitis B core antibody, IgM - Hepatitis B core antibody, total - Hepatitis B surface antibody - Hepatitis B surface antigen - Hepatitis C antibody - QUANTIFERON TB GOLD Jarod Rodarte is a 51 y.o. female patient with seronegative rheumatoid arthritis who presents for follow-up. Patient's history, current symptoms and exam findings, are consistent with inflammatory arthritis. Reports hand, foot, knee, shoulder involvement, has elevated C-reactive protein and thrombocytosis, reports history of improvement with prednisone. HLA-B27 negative. Started on methotrexate in February, optimized to 20 mg weekly p.o. in late March 2022. Notes some improvement but has persistent synovitis of bilateral PIPs. Plan: - Obtain labs. Will add on TB and hepatitis serologies - Continue methotrexate 20 mg weekly - Increase folic acid to 3 mg daily (increased on sensitivity after starting methotrexate) -Start hydroxychloroquine 400 mg daily. Discussed risk/benefits in detail with patient and handout provided. Discussed risk of retinal toxicity. Discussed yearly eye exams. Patient reports she gets yearly eye exams as part of her diabetes monitoring. - Continues on Celebrex as needed - If evidence of ongoing inflammation at follow-up, could consider addition of Biologic All results were reviewed with the patient. All questions were answered. Patient stated understanding of assessment and plan. Patient in agreement with plan. Risks, benefits, treatment options discussed. Follow up in about 3 months (around 12/15/2022). Olimpia Anne MD [facility] [address] [place] [address] Dept: [phone] [facility] Jarod Rodarte is a 51 y.o. female patient with diabetes on insulin presents for follow-up of inflammatory arthritis. Brief History: Patient reports she was diagnosed with juvenile arthritis in her childhood as well as her brother. More recently, since 2008, reports progressively worsening arthralgias, especially of her hands, shoulders, and knees. Earlier this year, reports she had recurrent left knee swelling that was drained.Also has left knee Means's cyst. Patient was noted to have thrombocytosis and was evaluated by hematology. Additional lab work showed elevated C-reactive protein at 2.6, unremarkable MILAD. Patient has Raynaud's since childhood, siccasymptoms. Additional work-up revealed unremarkable MILAD, RF, SSA, and normal chest x-ray. Patient cannot take prednisone as reports very brittle diabetes with blood sugar spiking to 400 500with minimal prednisone use. However, she does recall prednisone helping significantly including joint injections. Patient reports pains are primarily MCPs, PIPs, shoulders, knees. However, reports significant painand stiffness of her feet as well that makes it difficult to walk in the morning. Reports significant morning stiffness which is prolonged as well. Has tried naproxen and meloxicam in the past without significant improvement. Currently taking topical time diclofenac to her knees which is helping somewhat and as needed Tylenol which is not helping. Patient denies any history of psoriasis, IBD, uveitis, enthesitis, dactylitis, nail changes. Family history: cousins with SLE and rheumatoid arthritis 01/25/2022-established care, labs and x-rays ordered. Elevated inflammation markers, otherwise serologies unremarkable, no signs of axial involvement. HLA- B27 negative. 03/10/2022- ongoing synovitis, starting methotrexate + FA 04/23/2022-methotrexate increased to 20 mg weekly May 2022-doing well overall, still some inflammatory symptoms but significantly improved from before. Continue current regimen. Last visit: 05/2022 Prior pertinent labs/imaging: [facility]-unremarkable MILAD, RF, SSA, unremarkable chest x-ray Unremarkable RF, CCP, HLA-B27 Thrombocytosis, 563 ESR 35 Prior rheumatologic medications: Prednisone-effective but causes significantly increased blood glucose Naproxen-ineffective Meloxicam-ineffective Celebrex-ineffective Today: Patient has been on methotrexate has been helping with symptoms. However still reports prolonged stiffness of bilateral PIPs as well as MTPs. Reports she does have some increased time sensitivity after starting methotrexate. Unable to eat spicy foods like she was previously. Current rheumatologic meds: Methotrexate 20 mg weekly (started February 2022, increased in March 2022) Folic acid 1 mg daily Celebrex 200 mg daily Allergies Allergen Reactions Penicillins Anaphylaxis Bupropion Other Seizure and hives Empagliflozin Hives Ropinirole Seizure Outpatient Medications Prior to Visit Medication Sig Dispense Refill amLODIPine (Norvasc) 5 MG tablet Take 5 mg by mouth in the morning. aspirin 81 MG EC tablet Take 81 mg by mouth in the morning. atenolol (Tenormin) 50 MG tablet Take 50 mg by mouth in the morning. atorvastatin (Lipitor) 20 MG tablet Take 20 mg by mouth in the morning. BD Pen Needle Teetee 2nd Gen 32G X 4 MM misc USE TO INJECT INSULIN SUBCUTANEOUSLY TWICE A DAY DIRECTED Diclofenac Sodium (Voltaren) 1 % gel Apply 2 g topically in the morning and 2 g at noon and 2 g in the evening and 2 g before bedtime. fenofibrate (Tricor) 145 MG tablet Take 145 mg by mouth in the morning. gabapentin (Neurontin) 100 MG capsule Take 100 mg by mouth 2 times daily. gabapentin (Neurontin) 300 MG capsule Take 300 mg by mouth Nightly. glucagon (Gvoke HypoPen) 1 MG/0.2ML injection Inject 1 mg under the skin Once as needed for low blood sugar. Prn for emergency Insulin Glargine (TOUJEO MAX SOLOSTAR SC) Inject 100 Units under the skin every morning. losartan (Cozaar) 100 MG tablet Take 0.5 tablets by mouth in the morning. metFORMIN (Glucophage) 1000 MG tablet Take 1 tablet by mouth in the morning and 1 tablet in the evening. Take with meals. montelukast (Singulair) 10 MG tablet Take 1 tablet by mouth Nightly. omeprazole (PriLOSEC) [address] capsule Take 1 capsule by mouth every morning (before breakfast). Pennsaid 2 % solution pramipexole (Mirapex) 0.5 MG tablet Take 0.5 mg by mouth in the morning. Saccharomyces boulardii (probiotic) 250 MG capsule Take 350 mg by mouth daily. Unifine Pentips 31G X 5 MM misc venlafaxine XR (Effexor XR) 150 MG 24 hr capsule Take 150 mg by mouth in the morning. celecoxib (CeleBREX) 200 MG capsule take 1 capsule by mouth daily 30 capsule 2 folic acid (Folvite) 1 MG tablet Take 1 tablet (1 mg) by mouth daily. 90 tablet 3 methotrexate 2.5 MG tablet TAKE 8 TABLETS BY MOUTH ONCE A WEEK 32 tablet 3 gabapentin (Neurontin) 100 MG capsule Take 100 mg by mouth in the morning and 100 mg in the evening. gabapentin (Neurontin) 300 MG capsule Take 300 mg by mouth. glucose blood (Frevvo Ultra) test strip Use to test blood sugars twice daily as instructed HYDROcodone-acetaminophen (Freeland) 5-325 MG tablet Take 1 tablet by mouth every 6 hours as needed. insulin glargine (Lantus) 100 UNIT/ML pen Inject 67 Units under the skin in the morning and 67 Units in the evening. semaglutide (Ozempic, 0.25 or 0.5 MG/DOSE,) 2 MG/1.5ML solution pen-injector 0.5mg weekly semaglutide (Ozempic, 1 MG/DOSE,) 4 MG/3ML solution pen-injector Inject 1 mg under the skin once a week. triamcinolone (Nasacort) 55 MCG/ACT nasal inhaler Administer 2 sprays into affected nostril(s) in the morning. No facility-administered medications prior to visit. REVIEW OF SYSTEMS: CONSTITUTIONAL: Admits: [] Weight Loss [] Fever [] Frequent Night Sweats OPHTHALMOLOGIC: Admits: [] History or Current Inflammatory Eye Disease [] Cataracts ENT: Admits: [] Oral/Nasal Ulcers [] epistaxis [x] Recurrent Sinusitis [] Dry Eyes [x] Dry mouth CARDIOVASCULAR: Admits: [] Chest pain [] Pericarditis/Pleuritis [] Palpitations [] Edema RESPIRATORY: Admits: [] hemoptysis [] Dyspnea on Exertion [] Cough [] Wheezing GASTROINTESTINAL: Admits: [] Bloody Stool [] Diarrhea [] Vomitting GENITOURINARY: Admits: [] Blood in urine [] Genital Ulcers [] Burning/pain with urination MUSCULOSKELETAL: Admits: [] Muscle Pain [x] Joint Pain INTEGUMENTARY: Admits: [] Skin changes [] Sclerodactyly [x] Raynauds [] Photosensitivity [] Alopecia NEUROLOGIC: Admits: [] Recurrent Headaches [] Limb Weakness [x] Numbness/Tingling PSYCHIATRIC: Admits: [] Insomnia [] Depression [x] Anxiety ENDOCRINE: Admits: [] Thyroid abnormalities HEMATOLOGY/LYMPH: Admits: [] Notable Swollen Lymph Nodes [] History of Cytopenias [] Bruising tendency [] History of DVT/PE All non checked boxes, patient denies. All other 10 point ROS reviewed and negative. Objective Physical Exam: Vitals: 09/14/22 1224 BP: (!) 152/89 BP Location: Left arm Patient Position: Sitting BP Cuff Size: Small adult Pulse: 79 Weight: 180 lb (81.6 kg) Height: 5' 4 (1.626 m) Constitutional: BP (!) 152/89 (BP Location: Left arm, Patient Position: Sitting, BP Cuff Size: Small adult) Pulse79 Ht 5' 4 (1.626 m) Wt 180 lb (81.6 kg) BMI 30.90 kg/m : reviewed Comfortable, pleasant, no acute distress Eyes: Conjunctiva clear and moist, eyelids without lesions. Extraocular movements fully intact. Respiratory: Inspiratory and expiratory effort normal. Clear to auscultation bilaterally. No crackles or wheezes. Cardiovascular: Auscultation: regular rate rhythm, no murmurs/rubs/gallops. No edema of extremities Dermatologic: Inspection and palpation of skin and subcutaneous tissue of all four extremities without rashes Psychiatric: Normal affect. Judgement/insight intact. Musculoskeletal: Mild synovitis of bilateral second through fifth PIPs. Muscle strength 5/5 of upper and lower extremities. Data Reviewed and Summarized Labs: Lab Results Component Value Date WBC 11.2 (H) 01/25/2022 HGB 14.7 01/25/2022 HCT 44.5 01/25/2022 MCV 84.3 01/25/2022 PLT 563 (H) 01/25/2022 Lab Results Component Value Date CREATININE 0.72 01/25/2022 BUN 16 01/25/2022 NA 136 01/25/2022 K 4.9 01/25/2022 CL 106 01/25/2022 CO2 20 (L) 01/25/2022 Lab Results Component Value Date ALT 31 01/25/2022 AST 31 01/25/2022 ALKPHOS 78 01/25/2022 BILITOT 0.2 01/25/2022 Lab Results Component Value Date SEDRATE 35 (H) 01/25/2022 Lab Results Component Value Date CRP 6.6 01/25/2022 This note was created with the assistance of a speech recognition program. While intending to generate a timely document that accurately reflects the content of the visit, no guarantee can be provided that every grammatical or spelling mistake has been or will be identified or corrected. Thank you for your understanding. On this date 09/14/2022, I have spent 38 minutes reviewing previous notes, test results and face to face with the patient discussing the diagnosis and importance of compliance with the treatment plan as well as documenting on the day of the visit. documented in this [facility]06-20-2023 Instructions* Patient Instructions* Olimpia Anne MD - 09/14/2022 12:30 PM EDT It was great to see you today! -Please get labs today - Continue methotrexate tablets once a week - Increase folic acid to 3 tablets daily - Start hydroxychloroquine (Plaquenil) 2 tablets a day. Continue with once a year eye exam. When you see your eye doctor, please inform them that you are on hydroxychloroquine. - At next visit, we may consider starting an injectable medication * Attachments The following attachments cannot be sent through Care Everywhere. * Hydroxychloroquine, ADULT (Ukrainian) documented in this [facility]06-15-2023 Miscellaneous Notes* Telephone Encounter - Cathy Waters RN - 09/09/2022 3:29 PM EDT Notified patient of Amee Slade CNP's message. Patient verbalized understanding and all questions were answered. Encounter closed. Also, sent the below message to her via Satarii to refer to. * Telephone Encounter - Amee Slade APRN.CNP - 09/09/2022 2:49 PM EDT Message reviewed. Recommend the following: Continue metformin Continue ozempic hold humalog --5 units dose with meals for today. Use humalog only per sliding scale at meals if BG is over 150 For toujeo--likely needs less because she is responding well to Ozempic. Her total daily toujeo dose now is 140 units daily. Hold tonights dose Resume tomorrow and take 100 units daily in the AM only; NO dose in the evening. I also sent in for glucagon in case of emergency low glucose. She will need to touch base with LORNE Dejesus early next week to see if meds need adjusted again (back up or down). Main goal today is to reduce hypoglycemia risk. Contact us sooner if she still has issues. Thank you * Telephone Encounter - Cathy Waters RN - 09/09/2022 2:37 PM EDT Please review in Katharine Dejesus CNP's absence. * Telephone Encounter - Fred Cuevas LPN - 09/09/2022 1:27 PM EDT Pt calling stating she sent Katharine fox My Chart message this am but does not look like this hasbeen addressed. Pt states at ov meds were changed to Ozempic 1 mg weekly and Toujeo 70 units twice daily. Pt states she took the Ozempic at 1 pm yesterday and took the Toujeo last night. She did takeher fast acting insulin before eating. States her blood sugar dropped to 40 and she was vomiting. She did take the emergency sugar gel but it took about 5 hrs for her sugar to get to 80 so she decided to go to [facility] ER as she did not want to bottom out in the middle of the night.. The ER Dr told her he had never seen anyone on Toujeo 70 units twice daily and advised her not to take it this am. Pt states she has no appetite today and has only had a piece of uriostegui and toast. She feels exhausted today. She has not taken any insulin or metformin today. Blood sugar today is at 142. She feels she hasan abundance of insulin in her right now and wants to know what to do for tonight if she should take anything or just give her body a rest. Please advise. Fred Cuevas LPN documented in this encounterPromedica [facility]ost[facility]06-15-2023 Miscellaneous Notes* Telephone Encounter - Cathy Lee RN - 09/09/2022 3:23 PM EDT Called pt, no answer. Forwarded message to Endocrine providers in [place] and to Katharine Dejesus CNP for review. Updated pt of this via [employer] message. Please see mychart message from 09/09/2022 where patients medications/blood sugar were addressed and pt was updated. * Telephone Encounter - Cathy Lee RN - 09/09/2022 2:22 PM EDT Per pts [employer] message sent today: Hi Dr. Dejesus, Took my new meds yestetday, ended up in the e.r. due to low blood sugar and throwing up with tiredness and headache. I took the ozempeic around 1:00 pm and the rest of my insulin around 5 p.m. sugarsdropped around 50. Can we adjust toujao and ozempic? I think its alot for my system. E.R. doctor told me not to take morning dose of toujao this morning. Please let me know before the weekend comes or later today so i know what to do. Thank You Per [employer] in [facility]: Note Pt calling stating she sent Katharine fox My Chart message this am but does not look like this has been addressed. Pt states at ov meds were changed to Ozempic 1 mg weekly and Toujeo 70 units twicedaily. Pt states she took the Ozempic at 1 pm yesterday and took the Toujeo last night. She did take her fast acting insulin before eating. States her blood sugar dropped to 40 and she was vomiting. She did take the emergency sugar gel but it took about 5 hrs for her sugar to get to 80 so she decided to go to [facility] ER as she did not want to bottom out in the middle of the night.. The ER Dr told herhe had never seen anyone on Toujeo 70 units twice daily and advised her not to take it this am. Pt states she has no appetite today and has only had a piece of uriostegui and toast. She feels exhausted today. She has not taken any insulin or metformin today. Blood sugar today is at 142. She feels she has an abundance of insulin in her right now and wants to know what to do for tonight if she should take anything or just give her body a rest. Please advise. Fred Cuevas LPN LARA: 09/02/2022 Pt was in the ER last night for a low blood sugar of 40. Pt feels that the Ozempic and the toujeo doses are too high. Pt currently taking: Ozempic 1mg once weekly. ToujeoU-300- Inject 70 units twice daily.(Pt was previously taking Lantus 70 units BID but was switched at last appt due to dexterity in fingers- easier to use Toujeo). HumalogU-100 insulin- Inject 5 units with meals TID plus SS#2. Metformin 1000mg BID. Please advise. 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 Please return to the ER should you have any further concernsWKettering Health [facility] Work Phone: [phone] 433-558704-24-2023 Telephone encounter Note* Telephone Encounter - Madeline Omalley MA - 07/19/2022 12:08 PM EDT Callled pt appt made earlier for 07/28/22 12:30 [id number] Miscellaneous Notes* Telephone Encounter - Madeline Omalley MA - 07/19/2022 12:08 PM EDT Callled pt appt made earlier for 07/28/22 12:30 * Telephone Encounter - Olimpia Anne MD - 07/19/2022 11:58 AM EDT Discussed with patient. Has ongoing inflammatory symptoms despite methotrexate 20 mg weekly. Unableto take steroids due to very brittle diabetes. Follows with endocrinology. We will plan for earlier follow-up to discuss possible addition of TNF inhibitor. TB/hepatitis serologies reassuring in December 2021. * Telephone Encounter - Wanda Toro - 07/15/2022 10:32 AM EDT Name of caller: Jarod Contact phone number: [phone] Relationship to Patient: patient Provider: Omid Practice: Rheumatology Chief Complaint/Reason for Call: pt got said rate back and was stable in isabella was a 12 and now is a 20 She is on methotrexate 2.5 MG tablet celecoxib (CeleBREX) 200 MG capsule 30 capsule 2 04/26/2022 Sig - Route: Take 1 capsule (200 mg) by mouth daily And is not working she is hurting.. please advise Best time of day caller can be reached: any Patient advised that office/PCP has 24-48 business hours to return their call: Yes documented in this [facility]04-24-2023 Telephone encounter Note* Telephone Encounter - Olimpia Anne MD - 07/19/2022 11:58 AM EDT Discussed with patient. Has ongoing inflammatory symptoms despite methotrexate 20 mg weekly. Unableto take steroids due to very brittle diabetes. Follows with endocrinology. We will plan for earlier follow-up to discuss possible addition of TNF inhibitor. TB/hepatitis serologies reassuring in December 2021. [facility] [id number] Telephone encounter Note* Telephone Encounter - Wanda Toro - 07/15/2022 10:32 AM EDT Name of caller: Jarod Contact phone number: [phone] Relationship to Patient: patient Provider: Omid Practice: Rheumatology Chief Complaint/Reason for Call: pt got said rate back and was stable in isabella was a 12 and now is a 21 She is on methotrexate 2.5 MG tablet celecoxib (CeleBREX) 200 MG capsule 30 capsule 2 04/26/2022 Sig - Route: Take 1 capsule (200 mg) by mouth daily And is not working she is hurting.. please advise Best time of day caller can be reached: any Patient advised that office/PCP has 24-48 business hours to return their call: Yes [id number] Miscellaneous Notes* Telephone Encounter - Wanda Toro - 07/15/2022 10:32 AM EDT Name of caller: Jarod Contact phone number: [phone] Relationship to Patient: patient Provider: Omid Practice: Rheumatology Chief Complaint/Reason for Call: pt got said rate back and was stable in isabella was a 12 and now is a 21 She is on methotrexate 2.5 MG tablet celecoxib (CeleBREX) 200 MG capsule 30 capsule 2 04/26/2022 Sig - Route: Take 1 capsule (200 mg) by mouth daily And is not working she is hurting.. please advise Best time of day caller can be reached: any Patient advised that office/PCP has 24-48 business hours to return their call: Yes documented in this encounterSMansfield [id number] Instructions* Patient Instructions* Gela Medina APRN.CNP - 07/14/2022 10:26 AM EDT Take the 0.125mg pramipexole at 5pm as needed for restless leg. Then take 1/2 of your current dose of pramipexole at 10pm before bed with the 300mg of gabapentin/neurontin. documented in this encounterPromedica [facility]04-19-2023 History of Present illness Narrative* Glea Medina APRN.CNP - 07/14/2022 10:03 AM EDT CC: Patient presents with: Recheck: 3 month DM follow up HPI Jarod Rodarte is a 51 year old female who presents today for diabetes follow-up but had recentER visit and concerned with insomnia related to RLS treatment. Recent ER visit to [place] ER for breast cyst/abscess under left breast and in abdominal fold. Gets these often Patient trying to keep areas clean and dry. Area under left breast was lanced in ER, lower abdomen opened up in bathtub and drained. Has finished hte antibiotic (unsure which one) and states everything is healed. Denies fever chills or drainage. DIABETES MELLITUS: Ms. Rodarte denies excessive thirst or increased frequency of urination, chest pain or dyspnea , new or unusual visual symptoms, low sugar/hypoglycemic reactions, weight loss/gain,lightheadedness/dizziness, and bowel changes/loose stools. No signs of hypoglycemia but morning sugars are elvated and CGM shows 50s during the night when this occurs. Follows a diabetic diet most ofthe time. She is compliant with medication(s) and is tolerating med(s) without any side effects. She reports checking her glucose on a continuous schedule with average glucose in 150s-160s . Patient's last HgA1C was Hemoglobin A1C (%) Date Value 01/11/2022 7.7 08/28/2021 7.6 01/12/2021 7.9 07/17/2020 8.2 Hemoglobin A1C (POCT) (%) Date Value 04/14/2022 8.5 ) Last Ophthalmology exam was within the past 6 months Right hand and right fingers have been intermittently getting numb when she is using her right hand. No previous injruies or surgeries. Has some intermittent swelling from her RA but no increase in this. Sometimes feels weak and has to concentrate to hold items like a pencil. Insomnia: Has had difficulties with this since last year. If she is at home resting in the evening her restless legs is very intense so she takes her full pramipexole and neurontin around 6pm which results her having to go to bed waking up around 3 am and unable to fall back asleep. This is starting to alter her sleep schedule. If she goes fishing in the evening and standing up, her RLS is controlled and will take medications later in the evening which allows for normal sleep. HTN: Ms. Rodarte indicates that she is feeling well and denies any symptoms referable to elevated blood pressure. Specifically denies headache, chest pain, palpitations, dyspnea, and peripheral edema. Patient denies any side effects of her medication(s) and is compliant with their regimen. She doesnot check BP's generally. She watches her diet for sodium, low fat and low cholesterol most of the time. Last 3 Encounter BP Readings: Date: BP: 07/14/2022 128/76 06/18/2022 132/78 04/14/2022 128/82 REVIEW OF SYSTEMS General: no fevers, no chills, no night sweats, no recurrent infections, no change in appetite, no change in energy, and no significant changes in weight Respiratory: no cough, no wheezing, no shortness of breath, no hemoptysis Cardiovascular: no chest pain, no chest pressure, no palpitations, and no swelling Endocrine: no fatigue, no polyuria, no polyphagia, and no polydipsia Neurologic: No headache, weakness, dizziness, memory loss, syncope. PAST MEDICAL HISTORY Diagnosis Date De Quervain's tenosynovitis, bilateral Depression with anxiety Diabetes (HCC) Fibromyalgia Hypercholesterolemia Hypertension IBS (irritable bowel syndrome) Raynaud's disease Restless legs syndrome (RLS) PAST SURGICAL HISTORY Procedure Laterality Date CONE OF CERVIX LOOPELEC EXCIS EXTRACTION, ERUPTED TOOTH OR EXPOSED ROOT (ELEVATION AND/OR FORCEPS REMOVAL) [place] teeth x 4 HYSTERECTOMY HX precervical cancer, removed cervix KNEE SURGERY HX 4x right and left x4 ALLERGIES Jardiance [Empagliflozin], Penicillin G, Requip [Ropinirole], and Wellbutrin [Bupropion Hcl] MEDICATIONS insulin glargine (LANTUS SOLOSTAR U-100 INSULIN) 100 unit/mL (3 mL) Inject 70 Units subcutaneously twice daily. venlafaxine ER (EFFEXOR XR) 150 mg 24 hr capsule Take 1 capsule by mouth once daily. montelukast (SINGULAIR) 10 mg tablet Take 1 tablet by mouth daily at bedtime. amLODIPine (NORVASC) 5 mg tablet Take 1 tablet by mouth once daily. atenolol (TENORMIN) 50 mg tablet Take 1 tablet by mouth once daily. atorvastatin (LIPITOR) 20 mg tablet Take 1 tablet by mouth once daily. fenofibrate nanocrystallized (TRICOR) 145 mg tablet Take 1 tablet by mouth once daily. metFORMIN (GLUCOPHAGE) 1,000 mg tablet Take 1 tablet by mouth twice daily with meals. losartan (COZAAR) 100 mg tablet TAKE ONE-HALF TABLET BY MOUTH ONCE DAILY pramipexole (MIRAPEX) 0.5 mg tablet Take 1 tablet by mouth once daily. omeprazole (PRILOSEC) 20 mg capsule Take 1 capsule by mouth daily before breakfast. insulin lispro (HUMALOG KWIKPEN INSULIN) 100 unit/mL Inject 5 units with meals TID plus SS#2 (2 units for every 50 over 150) (~ 1 units for every 10 grams of carbs) TDD: 30 celecoxib (CELEBREX) 200 mg capsule Take 200 mg by mouth every morning. folic acid 1 mg tablet Take 1 mg by mouth. triamcinolone acetonide (NASACORT AQ) 55 mcg nasal inhaler Use 2 Sprays in the nose once daily. aspirin, enteric coated (ASPIRIN, ENTERIC COATED) 81 mg EC tablet Take 1 tablet by mouth once daily. gabapentin (NEURONTIN) 300 mg capsule Take 1 capsule by mouth daily at bedtime for 180 days. gabapentin (NEURONTIN) 100 mg capsule Take 1 capsule by mouth twice daily for 180 days. Take one Dereje and one in afternoon. Take the 300mg before bed. pramipexole (MIRAPEX) 0.125 mg tablet Take 1 pill in the evening as needed for restless legs flash glucose scanning reader ([employer] CARLITO 2 READER) Use as instructed to check four times a day flash glucose sensor (FREESTYLE CARLITO 2 SENSOR) kit Check blood sugar four times a day as instructed Blood-Glucose Sensor (DEXCOM G6 SENSOR) catracho Change sensor every 10 days. USE FOR CONTINUOUS GLUCOSE MONITORING. MULTIPLE INSULIN INJECTIONS. E11.9 Blood-Glucose Transmitter (DEXCOM G6 TRANSMITTER) catracho Change transmitter every 3 months. USE FOR CONTINUOUS GLUCOSE MONITORING. MULTIPLE INSULIN INJECTIONS. E11.9 diclofenac (VOLTAREN) 1 % topical gel Apply 2 g to affected area four times daily. blood sugar diagnostic (ONETOUCH ULTRA TEST) test strip Use to test blood sugars twice daily as instructed Insulin Bradford, Disposable, (BD ULTRAFINE III MINI PEN) 31 gauge x 3/16 Use with insulin injection 2 times daily FAMILY HISTORY Problem Relation Age of Onset Hypertension Mother Breast Cancer Mother other (raynaud) Mother Parkinson s Disease Father Hyperlipidemia Father Arthritis Father Breast Cancer Maternal Grandmother other (Thrombosis) Maternal Grandfather COPD Paternal Grandmother Coronary Artery Disease Paternal Grandmother Coronary Artery Disease Paternal Grandfather other (Brock Disease) Maternal Aunt Cervical Cancer Paternal Aunt Heart Paternal Aunt Factor 5 Leiden Paternal cousin Social History Tobacco Use Smoking status: Every Day Packs/day: 0.50 Years: 31.00 Pack years: 15.50 Types: Cigarettes Smokeless tobacco: Never Vaping Use Vaping Use: Never used Substance Use Topics Alcohol use: No Drug use: No PHYSICAL EXAM BP 128/76 Pulse 68 Resp 16 Wt 83.9 kg (185 lb) BMI 30.79 kg/m General Appearance: well appearing, in no acute distress, alert Skin: Skin color, texture, turgor normal for age; both previous abscesses healed, well approximated, with no redness, fluctuation, or tenderness. Eyes: conjunctiva pink and moist, no icterus, sclera white, non-injected Lungs: Lungs clear to auscultation. No wheezing, rhonchi, rales. Heart: RRR without murmur, gallop, or rubs. No ectopy BUE Extremities: No deformities, edema, skin discoloration, clubbing or cyanosis. Good capillary refill. Neurological: Gait normal. Sensation grossly intact., Negative findings: muscle tone normal, musclestrength normal Health maintenance reviewed with patient: COLORECTAL CANCER SCREENING Never done PAP TESTING due on 11/30/2018 HPV TESTING due on 11/30/2018 SHINGRIX VACCINE(1 of 2) Never done MAMMOGRAM due on 04/05/2020 DIABETIC FOOT EXAM due on 06/12/2022 HBA1C due on 07/13/2022 HEPATITIS B(1 of 3 - 3-dose series) due on 09/11/2022 COVID-19 VACCINE(4 - Booster for Moderna series) due on 09/11/2022 BP CONTROLLED (<130/80) due on 09/11/2022 URINE ALBUMIN:CREATININE RATIO due on 01/11/2023 LDL CHOLESTEROL due on 01/11/2023 DILATED RETINAL EXAM due on 01/28/2023 ANNUAL PCP TEAM CHRONIC DISEASE VISIT due on 04/14/2023 DTAP,TDAP,TD(2 - Td or Tdap) due on 03/28/2024 PNEUMOCOCCAL(3 - PPSV23 if available, else PCV20) due on 2034 INFLUENZA Completed HEPATITIS C SCREENING Completed HIV SCREENING Completed DATA REVIEWED: No new labs ASSESSMENT/PLAN: 1. Insomnia, unspecified type - ICD9: 780.52, ICD10: G47.00 (primary diagnosis) - result of taking full dose of pramipexole and neurontin early in evening - adding a very low dose pramipexole to use as needed in the evening in hopes to make RLS symptoms tolerable then take the regular dose and neurontin right before bed. - follow up in 4 weeks. 2. RLS (restless legs syndrome) - ICD9: 333.94, ICD10: G25.81 As above, will check iron levels to make sure no other factor increasing RLS symptoms. - CBC + DIFF - IRON + TIBC - FERRITIN BLD - PRAMIPEXOLE 0.125 MG TABLET 3. Type 2 diabetes mellitus with diabetic nephropathy, with long-term current use of insulin (HCC) - ICD9: 250.40, 583.81, V58.67, ICD10: E11.21, Z79.4 - Controlled, according to glucose readings. - Continue current medications - Blood glucose monitoring on a continuous glucose monitoring schedule - Counseled on healthy diet and regular exercise - Discussed need for and benefit of weight loss. BMI 30.79 kg/(m^2) 4. Essential hypertension - ICD9: 401.9, ICD10: I10 - good control - Continue current medication(s) - Encouraged dietary sodium restriction/DASH diet - Recommended regular aerobic exercise. - Recommend home blood pressure monitoring, to bring results in on next visit - Goal of BP <130/80 5. Cutaneous abscess, unspecified site - ICD9: 682.9, ICD10: L02.91 - resolved, no signs of further infection at this time. 6. Numbness and tingling in right hand - ICD9: 782.0, ICD10: R20.0, R20.2 - will review further at follow up as patient may need neck xray and EMG Prescription instructions reviewed with patient as applicable. Potential red flag symptoms discussed with the patient. Reviewed appropriate action plan to take if red flag symptoms occur. Patient agreeable to treatment plan. Gela Medina APRN.CNP documented in this encounterPromedica Fost[facility]04-11-2023 Miscellaneous Notes* Telephone Encounter - Estephania Saeed LPN - 07/06/2022 3:18 PM EDT Patient calling wanted to make sure refill request got sent to PCP since she needs her insulin. * Telephone Encounter - Oliva Bravo RN - 07/05/2022 10:03 AM EDT Patient out of Lantus medication. Refill pended. Thank you. Medication refill requested by Pharmacy Please review and advise. Requested Prescriptions Pending Prescriptions Disp Refills insulin glargine (LANTUS SOLOSTAR U-100 INSULIN) 100 unit/mL (3 mL) 39 Each 3 Sig: Inject 70 Units subcutaneously twice daily. Last encounter with this provider: 04/14/2022 Next appt: 07/14/2022 Last 1 Encounter BP Readings: Date: BP: 06/18/2022 132/78 WBC (k/uL) Date Value 04/10/2022 10.26 Hemoglobin (g/dL) Date Value 04/10/2022 14.7 Platelet Count (k/uL) Date Value 04/10/2022 508 (H) Glucose (mg/dL) Date Value 04/10/2022 261 (H) BUN (mg/dL) Date Value 04/10/2022 16 Creatinine (mg/dL) Date Value 04/10/2022 0.70 Sodium (mmol/L) Date Value 04/10/2022 136 Potassium (mmol/L) Date Value 04/10/2022 4.9 Calcium, Total (mg/dL) Date Value 04/10/2022 10.7 (H) Alkaline Phosphatase (U/L) Date Value 04/10/2022 95 Bilirubin, Total (mg/dL) Date Value 04/10/2022 0.2 AST (U/L) Date Value 04/10/2022 24 ALT (U/L) Date Value 04/10/2022 28 Cholesterol, Total (mg/dL) Date Value 01/11/2022 167 Triglyceride (mg/dL) Date Value 01/11/2022 411 (H) TSH (mIU/L) Date Value 01/13/2022 1.030 Current Outpatient Medications on File Prior to Visit Medication Sig venlafaxine ER (EFFEXOR XR) 150 mg 24 hr capsule Take 1 capsule by mouth once daily. montelukast (SINGULAIR) 10 mg tablet Take 1 tablet by mouth daily at bedtime. amLODIPine (NORVASC) 5 mg tablet Take 1 tablet by mouth once daily. atenolol (TENORMIN) 50 mg tablet Take 1 tablet by mouth once daily. atorvastatin (LIPITOR) 20 mg tablet Take 1 tablet by mouth once daily. fenofibrate nanocrystallized (TRICOR) 145 mg tablet Take 1 tablet by mouth once daily. metFORMIN (GLUCOPHAGE) 1,000 mg tablet Take 1 tablet by mouth twice daily with meals. losartan (COZAAR) 100 mg tablet TAKE ONE-HALF TABLET BY MOUTH ONCE DAILY pramipexole (MIRAPEX) 0.5 mg tablet Take 1 tablet by mouth once daily. omeprazole (PRILOSEC) 20 mg capsule Take 1 capsule by mouth daily before breakfast. flash glucose scanning reader (FREESTYLE CARLITO 2 READER) Use as instructed to check four times a day flash glucose sensor (FREESTYLE CARLITO 2 SENSOR) kit Check blood sugar four times a day as instructed insulin lispro (HUMALOG KWIKPEN INSULIN) 100 unit/mL Inject 5 units with meals TID plus SS#2 (2 units for every 50 over 150) (~ 1 units for every 10 grams of carbs) TDD: 30 Blood-Glucose Sensor (DEXCOM G6 SENSOR) catracho Change sensor every 10 days. USE FOR CONTINUOUS GLUCOSE MONITORING. MULTIPLE INSULIN INJECTIONS. E11.9 Blood-Glucose Transmitter (DEXCOM G6 TRANSMITTER) catracho Change transmitter every 3 months. USE FOR CONTINUOUS GLUCOSE MONITORING. MULTIPLE INSULIN INJECTIONS. E11.9 celecoxib (CELEBREX) 200 mg capsule Take 200 mg by mouth every morning. folic acid 1 mg tablet Take 1 mg by mouth. methotrexate 2.5 mg tablet Take 15 mg by mouth. insulin glargine (LANTUS SOLOSTAR U-100 INSULIN) 100 unit/mL (3 mL) Inject 70 Units subcutaneously twice daily. gabapentin (NEURONTIN) 300 mg capsule Take 1 capsule by mouth daily at bedtime for 180 days. gabapentin (NEURONTIN) 100 mg capsule Take 1 capsule by mouth twice daily for 180 days. Take one Dereje and one in afternoon. Take the 300mg before bed. diclofenac (VOLTAREN) 1 % topical gel Apply 2 g to affected area four times daily. blood sugar diagnostic ([employer] ULTRA TEST) test strip Use to test blood sugars twice daily as instructed Insulin Bradford, Disposable, (BD ULTRAFINE III MINI PEN) 31 gauge x 3/16 Use with insulin injection 2 times daily HYDROcodone-acetaminophen (NORCO) 5-325 mg per tablet Take 1 tablet by mouth every 6 hours as needed for pain. albuterol HFA (VENTOLIN HFA) 90 mcg/actuation inhaler Inhale 2 Puffs as instructed every 4 hours asneeded for Wheezing/Shortness of Breath. triamcinolone acetonide (NASACORT AQ) 55 mcg nasal inhaler Use 2 Sprays in the nose once daily. aspirin, enteric coated (ASPIRIN, ENTERIC COATED) 81 mg EC tablet Take 1 tablet by mouth once daily. documented in this encounterPromedica Fostoria [facility]04-06-2023 Miscellaneous Notes* Telephone Encounter - Estephania Blockmarshall FORMAN - 07/01/2022 10:26 AM EDT Patient has been identified by name and date of : Pharmacy phones for refill(s): Requested Prescriptions Pending Prescriptions Disp Refills venlafaxine ER (EFFEXOR XR) 150 mg 24 hr capsule 90 capsule 3 Sig: Take 1 capsule by mouth once daily. montelukast (SINGULAIR) 10 mg tablet 90 tablet 3 Sig: Take 1 tablet by mouth daily at bedtime. amLODIPine (NORVASC) 5 mg tablet 90 tablet 3 Sig: Take 1 tablet by mouth once daily. atenolol (TENORMIN) 50 mg tablet 90 tablet 3 Sig: Take 1 tablet by mouth once daily. atorvastatin (LIPITOR) 20 mg tablet 90 tablet 3 Sig: Take 1 tablet by mouth once daily. fenofibrate nanocrystallized (TRICOR) 145 mg tablet 90 tablet 3 Sig: Take 1 tablet by mouth once daily. metFORMIN (GLUCOPHAGE) 1,000 mg tablet 180 tablet 3 Sig: Take 1 tablet by mouth twice daily with meals. losartan (COZAAR) 100 mg tablet 45 tablet 3 Sig: TAKE ONE-HALF TABLET BY MOUTH ONCE DAILY pramipexole (MIRAPEX) 0.5 mg tablet 90 tablet 3 Sig: Take 1 tablet by mouth once daily. Date of last office visit in primary care: 04/14/2022, has appt 07/14/2022 Last 2 Encounter Wt Readings: Date: Wt: 06/18/2022 85.3 kg (188 lb) 04/14/2022 83.9 kg (185 lb) Previous labs/tests for medication: Diabetes: Hemoglobin A1C (%) Date Value 01/11/2022 7.7 08/28/2021 7.6 01/12/2021 7.9 07/17/2020 8.2 Hemoglobin A1C (POCT) (%) Date Value 04/14/2022 8.5 Cholesterol: HDL Cholesterol (mg/dL) Date Value 01/11/2022 31 01/12/2021 28 LDL Cholesterol Date Value 01/11/2022 Comment: Unable to calculate due to increased Triglycerides. See LDL-Chol, Direct. 01/12/2021 89 mg/dL ALT (U/L) Date Value 04/10/2022 28 03/01/2020 24 Non HDL Cholesterol (mg/dL) Date Value 01/11/2022 136 01/12/2021 117 Blood Pressure: BUN (mg/dL) Date Value 04/10/2022 16 01/12/2021 10 Sodium (mmol/L) Date Value 04/10/2022 136 01/12/2021 137 Last 1 Encounter BP Readings: Date: BP: 06/18/2022 132/78 Please advise. Thank you. Estephania Saeed LPN [facility] Discharge instructions Patient Education 06/18/2022 20:20:16 Abscess, Incision And Drainage Abscess (Incision & Drainage) An abscess is sometimes called a boil. It happens when bacteria get trapped under the skin and start to grow. Pus forms inside the abscess as the body responds to the bacteria. An abscess can happen with an insect bite, ingrown hair, blocked oil gland, pimple, cyst, or puncture wound. Your healthcare provider has drained the pus from your abscess. If the abscess pocket was large, your healthcare provider may have put in gauze packing. Your provider will need to remove it on your next visit. He or she may also replace it at that time. You may not need antibiotics to treat a simple abscess, unless the infection is spreading into the skin around the wound (cellulitis). The wound will take about 1 to 2 weeks to heal, depending on the size of the abscess. Healthy tissue will grow from the bottom and sides of the opening until it seals over. Home care These tips can help your wound heal: The wound may drain for the first 2 days. Cover the wound with a clean dry dressing. Change the dressing if it becomes soaked with blood or pus. If a gauze packing was placed inside the abscess pocket, you may be told to remove it yourself. Youmay do this in the shower. Once the packing is removed, you should wash the area in the shower, or clean the area as directed by your provider. Continue to do this until the skin opening has closed. Make sure you wash your hands after changing the packing or cleaning the wound. If you were prescribed antibiotics, take them as directed until they are all gone. You may use acetaminophen or ibuprofen to control pain, unless another pain medicine was prescribed. If you have liver disease or ever had a stomach ulcer, talk with your doctor before using these medicines. Follow-up care Follow up with your healthcare provider, or as advised. If a gauze packing was put in your wound, it should be removed in 1 to 2 days. Check your wound every day for any signs that the infection is getting worse. The signs are listed below. When to seek medical advice Call your healthcare provider right away if any of these occur: Increasing redness or swelling Red streaks in the skin leading away from the wound Increasing local pain or swelling Continued pus draining from the wound 2 days after treatment Fever of 100.4 F (38 C) or higher, or as directed by your healthcare provider Boil returns when you are at home 3972-6373 [employer]. [address] [place] [address]. All rights reserved. This information is not intended as a substitute for professional medical care. Always follow yourhealthcare professional's instructions. Follow Up Care 06/18/2022 19:43:27 With:MARIO PATRICK MD Address: [address] [place] [address] [place] [address]- When:2-4 days Comments:Schedule appointment as soon as possible With:Go to emergency room if symptoms worsen Address:Unknown When:2-4 days With:MELYSSA MOBLEY MD Address: [address] [place] [address]- When:2-4 days [facility] 03-24-2023 Emergency department Discharge summary Discharge Instructions Thank you for allowing [facility] to assist you with your healthcare needs. The following is importantdischarge information regarding your hospital visit. Diagnosis from Today's Visit Skin problem What to Do Next Instructions from Your Care Team No qualifying data available. Post Acute Orders No qualifying data available. You Need to Schedule the Following Appointments Follow Up with MARIO PATRICK MD When Within 2-4 days Why: Schedule appointment as soon as possible Where: [address] [place] [address] [place] [address]- Follow Up with Go to emergency room if symptoms worsen When Within 2-4 days Follow Up with MELYSSA MOBLEY MD When Within 2-4 days Where: [address] [place] [address]- Allergies Requip Wellbutrin penicillin Medications Please ask your primary doctor or pharmacist before taking any other medication not listed, including over the counter drugs, herbal medications, vitamins and or supplements as they may interact withyour home medications. What How Much When Why Instructions Last Dose New doxycycline (doxycycline hyclate 100 mg oral capsule) 1 cap by mouth Two (2) times a day Duration: 7 Days Printed Prescription Unchanged acetaminophen-hydrocodone (Freeland 325- 5 mg oral tablet) 1 tab(s) by mouth Every 6 hours as needed for as needed for pain Boil Duration: 3 Days Unchanged amLODIPine (amLODIPine 5 mg oral tablet) 1 tab(s) by mouth Once a day Unchanged atenolol (atenolol 50 mg oral tablet) 1 tab(s) by mouth Two (2) times a day Unchanged atorvastatin (atorvastatin 20 mg oral tablet) 1 tab(s) by mouth Once a day Unchanged fenofibrate (fenofibrate 145 mg oral tablet) 1 tab(s) by mouth Once a day Unchanged gabapentin (gabapentin 100 mg oral capsule) 1 cap by mouth Two (2) times a day Unchanged liraglutide (Victoza 18 mg/ 3 mL subcutaneous Pen) 0.3 Milliliter Subcutaneous Once a day Unchanged metFORMIN (metFORMIN 1000 mg oral tablet) 1 tab(s) by mouth Two (2) times a day Unchanged omeprazole (omeprazole 20 mg oral delayed release capsule) 1 cap by mouth Once a day Unchanged pramipexole (pramipexole 0.5 mg oral tablet) 1 tab(s) by mouth Three (3) times a day Unchanged venlafaxine (venlafaxine 150 mg oral capsule, extended release) 1 cap by mouth Once a day Please take this list to your next doctor s visit. Bring all medications you take, including over the counter medications, herbals and other supplements with you to your doctor s visit. Patients and families are reminded to discard old lists and to update any records with all medication providers or retail pharmacies. Medication Leaflets doxycycline (oral/injection) (DOX cesar lazar) Acticlate, Adoxa, Alodox, Avidoxy, Doryx, Mondoxyne NL, Monodox, Morgidox, Okebo, Oracea, Oraxyl, Targadox, Vibramycin What is the most important information I should know about doxycycline? You should not take this medicine if you are allergic to any tetracycline antibiotic. Children younger than 8 years old should use doxycycline only in cases of severe or life-threatening conditions. This medicine can cause permanent yellowing or graying of the teeth in children Using doxycycline during could harm the unborn baby or cause permanent tooth discoloration later in the baby's life. What is doxycycline? Doxycycline is a tetracycline antibiotic that Doxycycline is used to treat many different bacterial infections, such as acne, urinary tract infections, intestinal infections, eye infections, gonorrhea, chlamydia, periodontitis (gum disease), andothers. Doxycycline is also used to treat blemishes, bumps, and acne-like lesions caused by rosacea. Doxycycline will not treat facial redness caused by rosacea. Some forms of doxycycline are used to prevent malaria, to treat anthrax, or to treat infections caused by mites, ticks, or lice. Doxycycline may also be used for purposes not listed in this medication guide. What should I discuss with my healthcare provider before taking doxycycline? You should not take this medicine if you are allergic to doxycycline or other tetracycline antibiotics such as demeclocycline, minocycline, tetracycline, or tigecycline. Tell your doctor if you have ever had: liver disease; kidney disease; asthma or sulfite allergy; increased pressure inside your skull; or if you also take isotretinoin, seizure medicine, or a blood thinner such as warfarin (Coumadin). If you are using doxycycline to treat gonorrhea, your doctor may test you to make sure you do not also have syphilis, another sexually transmitted disease. Taking this medicine during may affect tooth and bone development in the unborn baby. Taking doxycycline during the last half of can cause permanent tooth discoloration later in the baby's life. Tell your doctor if you are or if you become . Doxycycline can make control pills less effective. Ask your doctor about using a non-hormonalbirth control (condom, diaphragm with spermicide) to prevent . Doxycycline can pass into breast milk and may affect bone and tooth development in a nursing infant. Do not breastfeed while you are taking doxycycline. Doxycycline can cause permanent yellowing or graying of the teeth in children younger than 8 years old. Children should use doxycycline only in cases of severe or life-threatening conditions such as anthrax or Ostrander spotted fever. The benefit of treating a serious condition may outweigh any risks to the child's tooth development. How should I take doxycycline? Follow all directions on your prescription label and read all medication guides or instruction sheets. Use the medicine exactly as directed. Take doxycycline with a full glass of water. Drink plenty of liquids while you are taking doxycycline. Read and carefully follow any Instructions for Use provided with your medicine. Ask your doctor or pharmacist if you do not understand these instructions. Most brands of doxycyline may be taken with food or milk if the medicine upsets your stomach. Different brands of doxycycline may have different instructions about taking them with or without food. Take Oracea on an empty stomach, at least 1 hour before or 2 hours after a meal. You may need to split a doxycycline tablet to get the correct dose. Follow your doctor's instructions. Swallow a delayed-release capsule or tablet whole. Do not crush, chew, break, or open it. Measure liquid medicine with the dosing syringe provided, or with a special dose-measuring spoon ormedicine cup. If you do not have a dose-measuring device, ask your pharmacist for one. If you take doxycycline to prevent malaria: Start taking the medicine 1 or 2 days before entering an area where malaria is common. Continue taking the medicine every day during your stay and for at least 4 weeks after you leave the area. Doxycycline is usually given by injection only if you are unable to take the medicine by mouth. A healthcare provider will give you this injection as an infusion into a vein. Use this medicine for the full prescribed length of time, even if your symptoms quickly improve. Skipping doses can increase your risk of infection that is resistant to medication. Doxycycline will not treat a viral infection such as the flu or a common cold. Store at room temperature away from moisture, heat, and light. Throw away any unused medicine after the expiration date on the label has passed. Using doxycycline can cause damage to your kidneys. What happens if I miss a dose? Take the medicine as soon as you can, but skip the missed dose if it is almost time for your next dose. Do not take two doses at one time. What happens if I overdose? Seek emergency medical attention or call the Poison Help line at . What should I avoid while taking doxycycline? Do not take iron supplements, multivitamins, calcium supplements, antacids, or laxatives within 2 hours before or after taking doxycycline. Avoid taking any other antibiotics with doxycycline unless your doctor has told you to. Doxycycline could make you sunburn more easily. Avoid sunlight or tanning beds. Wear protective clothing and use sunscreen (SPF 30 or higher) when you are outdoors. Antibiotic medicines can cause diarrhea, which may be a sign of a new infection. If you have diarrhea that is watery or bloody, call your doctor. Do not use anti-diarrhea medicine unless your doctor tells you to. What are the possible side effects of doxycycline? Get emergency medical help if you have signs of an allergic reaction (hives, difficult breathing, swelling in your face or throat) or a severe skin reaction (fever, sore throat, burning in your eyes,skin pain, red or purple skin rash that spreads and causes blistering and peeling). Seek medical treatment if you have a serious drug reaction that can affect many parts of your body.Symptoms may include: skin rash, fever, swollen glands, flu- like symptoms, muscle aches, severe weakness, unusual bruising, or yellowing of your skin or eyes. This reaction may occur several weeks after you began using doxycycline. Call your doctor at once if you have: severe stomach pain, diarrhea that is watery or bloody; throat irritation, trouble swallowing; chest pain, irregular heart rhythm, feeling short of breath; little or no urination; low white blood cell counts--fever, chills, swollen glands, body aches, weakness, pale skin, easy bruising or bleeding; increased pressure inside the skull--severe headaches, ringing in your ears, dizziness, nausea, vision problems, pain behind your eyes; or signs of liver or pancreas problems--loss of appetite, upper stomach pain (that may spread to your back), tiredness, nausea or vomiting, fast heart rate, dark urine, jaundice (yellowing of the skin or eyes). Common side effects may include: nausea, vomiting, upset stomach, loss of appetite; mild diarrhea; skin rash or itching; darkened skin color; or vaginal itching or discharge. This is not a complete list of side effects and others may occur. Call your doctor for medical advice about side effects. You may report side effects to FDA at 3-561-AXX-7274. What other drugs will affect doxycycline? Sometimes it is not safe to use certain medications at the same time. Some drugs can affect your blood levels of other drugs you take, which may increase side effects or make the medications less effective. Other drugs may affect doxycycline, including prescription and ckev-mrq-ydatwxh medicines, vitamins, and herbal products. Tell your doctor about all your current medicines and any medicine you start or stop using. Where can I get more information? Your pharmacist can provide more information about doxycycline. Remember, keep this and all other medicines out of the reach of children, never share your medicines with others, and use this medication only for the indication prescribed. Every effort has been made to ensure that the information provided by [employer]. ('[employer]') is accurate, up-to-date, and complete, but no guarantee is made to that effect. Drug information contained herein may be time sensitive. [employer] information has been compiled for use by healthcare practitioners and consumers in the [place] and therefore [employer] does not warrant that uses outside of the [place] are appropriate, unless specifically indicated otherwise. [employer] drug information does not endorse drugs, diagnose patients or recommend therapy. [employer] drug information isan informational resource designed to assist licensed healthcare practitioners in caring for their p atients and/or to serve consumers viewing this service as a supplement to, and not a substitute for, the expertise, skill, knowledge and judgment of healthcare practitioners. The absence of a warningfor a given drug or drug combination in no way should be construed to indicate that the drug or drug combination is safe, effective or appropriate for any given patient. [employer] does not assume any responsibility for any aspect of healthcare administered with the aid of information [employer] provides. The information contained herein is not intended to cover all possible uses, directions, precautions, warnings, drug interactions, allergic reactions, or adverse effects. If you have questions about the drugs you are taking, check with your doctor, nurse or pharmacist. Copyright 6730-5105 [employer]. Version: .. Revision Date: 01/30/2020. Education Materials Abscess (Incision & Drainage) An abscess is sometimes called a boil. It happens when bacteria get trapped under the skin and start to grow. Pus forms inside the abscess as the body responds to the bacteria. An abscess can happen with an insect bite, ingrown hair, blocked oil gland, pimple, cyst, or puncture wound. Your healthcare provider has drained the pus from your abscess. If the abscess pocket was large, your healthcare provider may have put in gauze packing. Your provider will need to remove it on your next visit. He or she may also replace it at that time. You may not need antibiotics to treat a simple abscess, unless the infection is spreading into the skin around the wound (cellulitis). The wound will take about 1 to 2 weeks to heal, depending on the size of the abscess. Healthy tissue will grow from the bottom and sides of the opening until it seals over. Home care These tips can help your wound heal: The wound may drain for the first 2 days. Cover the wound with a clean dry dressing. Change the dressing if it becomes soaked with blood or pus. If a gauze packing was placed inside the abscess pocket, you may be told to remove it yourself. Youmay do this in the shower. Once the packing is removed, you should wash the area in the shower, or clean the area as directed by your provider. Continue to do this until the skin opening has closed. Make sure you wash your hands after changing the packing or cleaning the wound. If you were prescribed antibiotics, take them as directed until they are all gone. You may use acetaminophen or ibuprofen to control pain, unless another pain medicine was prescribed. If you have liver disease or ever had a stomach ulcer, talk with your doctor before using these medicines. Follow-up care Follow up with your healthcare provider, or as advised. If a gauze packing was put in your wound, it should be removed in 1 to 2 days. Check your wound every day for any signs that the infection is getting worse. The signs are listed below. When to seek medical advice Call your healthcare provider right away if any of these occur: Increasing redness or swelling Red streaks in the skin leading away from the wound Increasing local pain or swelling Continued pus draining from the wound 2 days after treatment Fever of 100.4 F (38 C) or higher, or as directed by your healthcare provider Boil returns when you are at home 8833-6124 [employer]. [address] [place] [address], [place] [address]. All rights reserved. This information is not intended as a substitute for professional medical care. Always follow yourhealthcare professional's instructions. Additional Information VACCINATE! IT SAVES LIVES! Members of the community who have not yet received the COVID-19 vaccine and would like to receive it can visit one of [facility] vaccine clinics. There are many vaccine clinic locations within the [facility]. For locations and available times, please visit www.[email or web address].[place].gov/. It is important to note that some COVID mobile vaccine clinics are held outdoors and may be canceled in rainy or stormy conditions. To learn more about pediatric vaccinations (ages 5-11), we invite you to visit the [employer] [facility] webpage. [email or web address]/[email or web address] learn more about the COVID-19 vaccine, we invite you to visit the CDC website for a list of frequently asked questions. https://www.cdc.gov/coronavirus/2019-ncov/vaccines/faq.html [facility] Patient Portal Access Instructions: Stay connected with your healthcare team and access your personal medical information anytime with the [facility] Patient Portal. If you would like a full copy of your medical records please contact the [facility] Medical Records Department Tuesday through Tuesday between 8a.m. and 4:30p.m. Please follow the directions below to access the portal: 1.Access the email account you provided upon registration to the hospital.2.Look for an invitation email from [facility].3.Open the email and access the invitation link: Accept Invitation to [facility]4.Fill in the required bonilla to create your account. Sign into [email or web address] with your username and password that you created in the above steps to stay up to date. You can then view a summary of results, a summary of your visits, and the ability to download your summaries to your computer or send the information securely to a physician. Remember that your healthcare information is confidential, so carefully consider who you will allow to register on the [facility] Patient Portal for access to your information. You can also access the [facility] Patient Portal on the [employer] way[address]. Simply click on Health Records under [employer] and then click on the [facility] logo. HOW TO SAFELY DISPOSE OF PRESCRIPTION MEDICATIONS Please use one of the following methods to safely dispose of your unused medications. 1.Use a drug disposal kit: the drug disposal pouch allows you to safely discard your old and unuseddrugs. Ask your nurse to give you one when you are discharged.2.Visit a local take-back location: Many local pharmacies and police departments have programs that collect old and unwanted prescriptiondrugs. Call your local pharmacy or go to http://CodeCombat.Emgo/4J7Ow4x to find one close to you.3.Make use of household items: Use cat litter or old coffee grounds to dispose medications if other options arenot available. Mix your drugs with these household products, seal them in an airtight container andthrow it into the garbage. Call [facility]: [phone] to be sure your drugs can be disposed of in this way. Some medicines may require a different approach.4.Never flush your medications down the toilet. IF YOU HAVE BEEN PRESCRIBED AN OPIOIDS FOR PAIN If you have been prescribed an opioid (such as hydrocodone, oxycodone or morphine), it is critical to understand the possible side effects and risks of opioid pain medications. Even when taken as directed, opioids can have several side effects including: Tolerance, meaning you might need to take more of a medication for the same pain relief. Nausea, vomiting and/or constipation. Sleepiness, dizziness, dry mouth, confusion, depression or itching. Physical dependence, meaning you have withdrawal symptoms when a medication is stopped ? this can develop within a few days. KNOW YOUR RESPONSIBILITIES It is important to know exactly how much and how often to take the opioid pain medications you are prescribed. Never take opioids in higher amounts or more often than prescribed. Do not combine opioids with alcohol or other drugs that cause drowsiness, such as benzodiazepines, also known as benzos,including diazepam and alprazolam, muscle relaxants or sleep aids. Never sell or share prescriptionopioids. This is illegal. Store opioids in a secure place and out of reach of others (including children, family, friends and visitors). The last page(s) of this document has been signed and retained as a CHART COPY Signatures Patient Education Materials Abscess, Incision And Drainage Medication Leaflets doxycycline (oral/injection) My discharge plan and instructions have been reviewed and explained to me and I,JAROD RODARTEd my current condition and have read and understand these discharge instructions. I have received a written copy of the plan/instructions. If I have questions, I am aware that I should contact my doctor. 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 Patient's had abscesses before. Patient says they have been there about 4 days. Patient says it is extremely painful in both areas. Upon assessing breast mass seems to be tunneling. Due to pain level and tunneling patient is being referred to the ER patient's partner is going to take her to the ER. Patientwas okay with this care plan. documented in this encounterPromedica [facility]ost[facility]03-08-2023 Miscellaneous Notes* Telephone Encounter - Estephania Saeed LPN - 06/02/2022 10:25 AM EST Patient has been identified by name and date of : Pharmacy phones for refill(s): Requested Prescriptions Pending Prescriptions Disp Refills omeprazole (PRILOSEC) 20 mg capsule 90 capsule 3 Sig: Take 1 capsule by mouth daily before breakfast. Date of last office visit in primary care: 04/14/2022, has appt 07/08/2022 Last 2 Encounter Wt Readings: Date: Wt: 04/14/2022 83.9 kg (185 lb) 01/11/2022 84.4 kg (186 lb) Previous labs/tests for medication: Not applicable Please advise. Thank you. Estephania Saeed LPN documented in this encounterPromedica Fost[facility]02-28-2023 Miscellaneous Notes* Telephone Encounter - Catyh Lee RN - 05/25/2022 12:27 PM EST See [employer] message and response. documented in this encounterPromedica Fostoria [facility]02-24-2023 Miscellaneous Notes* Telephone Encounter - Cathy Lee RN - 05/21/2022 3:59 PM EST Please see pts mychart questions and response. documented in this encounterPromedica Fostoria [facility]02-22-2023 Miscellaneous Notes* Telephone Encounter - Najma Canas LPN - 05/19/2022 12:56 PM EST Patient notified and voiced her understanding. Scheduled with Zaheer for 06/09. * Telephone Encounter - Katharine Dejesus APRN.CNP - 05/19/2022 9:30 AM EST Please have patient schedule again with Zaheer for more in depth insulin to carb ratio instruction. Even 'bites' of meals need to be calculated accurately. She should not take the same amount of insulin with each meal. We initially started that way due to her not understanding the carb counting andinsulin supplementation. If carbs were counted accurately, and the 1 for 10 used consistently, there would be no dramatically variable blood sugars. Her reported variations are likely to to over/under estimating true carb intake. * Telephone Encounter - Najma Canas LPN - 05/19/2022 8:52 AM EST Patient states she takes a couple of bites of her meals and then takes the fast acting depending onher carbs and what her blood sugar is at the time. She has been using the Diabetic plate method. She feels that she understands the carb counting. She is struggling with her blood sugar being high and staying high throughout the day. She is only eating 3 meals a day. She is not snacking anymore andshe is still remaining high. Fasting this morning is 148. States that her Carlito has been alerting her all throughout the night that her blood sugar is high. Advised that she should verify with a regular meter. Please advise. * Telephone Encounter - Katharine Dejesus APRN.CNP - 05/19/2022 8:33 AM EST This patient is MAKAYLA (type I) To prevent her variable sugars, she must understand carb counting, be able to do it very accurately, and then understand the insulin to carb ratio - How is she taking her meal insulin? Is she taking the same amount with each meal OR is she countingcarbs and then covering herself with 1 unit for every 10 grams of carbs? If she doesnot understtand this she will need to see Zaheer again until she is able to use an I/C ratio for her meals. SS is only for pre meal blood correction. * Telephone Encounter - Najma Canas LPN - 05/19/2022 7:30 AM EST Patient sent this via [employer] message on 05/17 Hi, This is Jarod Rodarte, I'm a patient of Katharine Dejesus, I'm having some issues with my sugars either running to low in the 50 thru out the day or running to high in the 200's after eating for a few hours, I'm not sure if it's normal to stay this high for a few hours, my normal, my average glucose is 160 and I've had it for a week. I'm taking my fast acting insulin 5 units before dinner and 67 units of my Lantus after dinner and met forming in the morning and my 2nd pill around 1pm. Please let me know if there's any changes to be made. I am using my freestyle carlito 2 for about a week now. * Telephone Encounter - Rosario Calvillo Pss - 05/18/2022 10:17 AM EST Patient calling stating her blood sugars are elevated. She is using a diabetic plate and portions out her servings Today after breakfast it was in the 170's. Average has been 152 Please advise and call patient. documented in this encounterPromedica Fost[facility]02-15-2023 Miscellaneous Notes* Telephone Encounter - Najma Canas LPN - 05/12/2022 4:44 PM EST Patient notified and states that everything has been going really well with her her Blood sugars. * Telephone Encounter - Katharine Dejesus APRN.CNP - 04/29/2022 10:45 AM EST Her morning sugars are used to dictate the basal (lantus dosing). Nothing will change re insulin dosing, unless her blood sugars have changed. documented in this encounterPromedica Fost[facility]02-08-2023 Miscellaneous Notes* Telephone Encounter - Coty Puckett MA - 05/05/2022 3:15 PM EST Received from Darrel HERNANDEZ request filled out paper work printed off last office note sent to providerfor review. Coty Puckett MA documented in this encounterPromedica Fostoria [facility]02-08-2023 History of Present illness Narrative* Jovanny Siu RN - 05/05/2022 12:37 PM EST DIABETES CARE AND EDUCATION VISIT Location: [place] Type of visit: In person individual PATIENT'S MAIN CONCERN TODAY: Review what I need to know now that I'm type 1 Support person present for education today: Significant other Cognitive ability: Alert and oriented Motivation to learn: Interested Learning barriers identified by educator: numeracy, pt had trouble doing math for selecting her dosage. Appeared able to add carbs but struggled with dividing step in her head, no problems with calculator Method of instruction: written, verbal, and demonstration DIABETES FINDINGS: Monitoring: Numbers consistently 80-150s in past week, did not report and low sugars. Reviewed hypoprotocol with patient and her SO Meal Planning: Reviewed basic carb counting and where to look up information, encouraged to use [employer] or [employer] as useful resources and wayne producers to assist Medications: pt states they are currently taking Lantus and Humalog as directed, assistance from Gupta ensure she is selecting the proper dose Problem Solving:hyper and hypoglycemia reviewed Physical Activity: benefits of activity for blood sugar control and cardiac health reviewed Reducing Risks: importance of good control to manage sugars HANDOUTS: Healthy You: Survival Skills and Healthy You: Planning Healthy Meals LEARNING RESPONSE: Taking medications: Demonstrated understanding/competency today with support of technology or SO POSSIBLE FUTURE TOPICS: 1. DIABETES CARE AND EDUCATION PLAN: Individual follow-up Time Spent (Minutes): 45 This visit note will be communicated to the healthcare provider via access to shared medical record. SIGNATURE: Jovanny Siu RN PATIENT NAME: Jarod Rodarte DATE: May 05, 2022 TIME: 1:05 PM PAGER: documented in this encounterPromedica Fostoria [facility]02-01-2023 Miscellaneous Notes* Telephone Encounter - Katharine Dejesus APRN.[facility] - 04/28/2022 7:00 AM EST Please call the patient. Her ANNE is positive for TYPE I diabetes, MAKAYLA - late onset autoimmune diabetes. I would like for her to see the nurses educator for MAKAYLA instruction. Additionally, STOP the ozempic. I will send fast acting meal insulin for her to use with her meals (in addt to her long acting right now) to her local pharmacy. She will need to learn carb counting, advanced carb counting, insulin to carb ratios for her coverage. At this point please just have patient take 5 units with her meals, plus a sliding scale for blood sugar correction as based on a pre meal blood sugar. 2 units for every 50 over 150 blood sugar. 5 units with meals PLUS below (pre meal blood sugar) SLIDING SCALE 2 150-200 - 2 units 201-250 - 4 units 251-300 - 6 units 301-350 - 8 units Consult to diabetes education is placed for her. F/U in office in 2 months. documented in this encounterPromedica [facility]ost[facility]01-30-2023 Telephone encounter Note * Telephone Encounter - Madeline Omalley MA - 04/26/2022 9:07 AM EST Called LM for pt celocib refilled. [id number] Miscellaneous Notes* Telephone Encounter - Madeline Omalley MA - 04/26/2022 9:07 AM EST Called LM for pt celocib refilled. * Telephone Encounter - Olimpia Anne MD - 04/26/2022 8:59 AM EST Celebrex refilled. * Telephone Encounter - Madeline Omalley MA - 04/26/2022 8:33 AM EST Per last consult note pt stated celoxib was not helping with pain. Pt then started on methotrexate and folic acid. Pt now asking for refill of celoxib. Called pt she states now celoxib now does work and would like refill. * Telephone Encounter - Niya Trujillo - 04/26/2022 8:31 AM EST Name of caller: Jarod Contact phone number: [phone] Relationship to Patient: patient Provider: omid Practice: rheum Chief Complaint/Reason for Call: Jarod called stating she needs a refill on her Celebrex but shegot a [employer] message stating it was denied. Please advise Best time of day caller can be reached: any Patient advised that office/PCP has 24-48 business hours to return their call: no * Telephone Encounter - Marta Valero - 04/26/2022 8:15 AM EST Name of caller: Sergei Littlejohn Contact phone number: [phone] Relationship to Patient: Patient Provider: Dr. Anne Practice: Rheumatology Chief Complaint/Reason for Call: Patient is needing to speak to a nurse about refilling her Celebrex. Please advise. Best time of day caller can be reached: ANy Patient advised that office/PCP has 24-48 business hours to return their call: Yes documented in this encounterSMansfield [id number] Telephone encounter Note* Telephone Encounter - Olimpia Anne MD - 04/26/2022 8:59 AM EST Celebrex refilled. [facility] [id number] Telephone encounter Note* Telephone Encounter - Madeline Omalley MA - 04/26/2022 8:33 AM EST Per last consult note pt stated celoxib was not helping with pain. Pt then started on methotrexate and folic acid. Pt now asking for refill of celoxib. Called pt she states now celoxib now does work and would like refill. [facility] [id number] Telephone encounter Note* Telephone Encounter - Niya Trujillo - 04/26/2022 8:31 AM EST Name of caller: Jarod Contact phone number: [phone] Relationship to Patient: patient Provider: omid Practice: rheum Chief Complaint/Reason for Call: Jarod called stating she needs a refill on her Celebrex but shegot a mychart message stating it was denied. Please advise Best time of day caller can be reached: any Patient advised that office/PCP has 24-48 business hours to return their call: no [employer] [id number] Telephone encounter Note* Telephone Encounter - Marta Valero - 04/26/2022 8:15 AM EST Name of caller: Sergei Littlejohn Contact phone number: [phone] Relationship to Patient: Patient Provider: Dr. Anne Practice: Rheumatology Chief Complaint/Reason for Call: Patient is needing to speak to a nurse about refilling her Celebrex. Please advise. Best time of day caller can be reached: ANy Patient advised that office/PCP has 24-48 business hours to return their call: Yes [facility] [id number] Miscellaneous Notes* Telephone Encounter - Nilda Wilder - 04/23/2022 10:58 AM ESTSummary: request appt for Mom not self PT called for mom, but didn't get moms last name to note her chart. PT explain that she wanted to get second option for mother who has hiatal hernia issues. Called back PT no answer LVM documented in this encounterPromedica Fost[facility]01-25-2023 History of Present illness Narrative* Katharine Dejesus APRN.HAYLEE - 04/21/2022 11:00 AM EST NEW CONSULT TELEPHONE VISIT Patient was scheduled for virtual visit, unable to connect via video, visit conducted as TELEPHONE VISIT Reason for Consultation: DM Type 2 Referring Physician: SELF My final recommendations will be communicated back to the requesting physician by way of shared Medical record or letter via US mail. HISTORY OF PRESENT ILLNESS; Jarod Rodarte is a 51 year old FEMALE is presenting as a new patient to me regarding DM Type 2. She was initially diagnosed with diabetes in 2009. Had initial DM education Is strict with her diet, will not eat a meal if her sugar is elevated as has noticed will go even higher Doing everything she can with diet and blood sugars remain uncontrolled Recent dx of RA, on methotrexate for treatment. No steroids. Checks blood sugars with finger sticks 6-7 times daily No exercise at this time secondary to pain from RA Frustrated as watches diet closely, takes med/insulin as directed and blood sugars are out of control for her Did have COVID infection in past year Below copied from nursing note dated 04-21-2022 Patient recently diagnosed with RA and started on methotrexate, folic acid, and Celebrex. Since then Blood sugars have been all over and running higher than they normally were. Taking Lantus Solostartaking twice a day between 68-70 units depending on what blood sugar is, Ozempic weekly, Metformin 1,000 mg twice daily Eats dinner at 5pm Fasting in the AM blood sugar has been 200s Patient reports that it seems to be taking a long time for her blood sugar to come back down after taking her insulin. She does have a family history of diabetes mellitus in her Mother and Siblings. 1st cousin Father'sside The patient reports the following microvascular complications: peripheral neuropathy. Jarod has no know macrovascular complications of diabetes.. DM Education Yes: Date: initial diagnosis Knows how to carb count Yes DIETARY HISTORY: Breakfast: if sugar is low, she will have eggs/toast, water or flavorired water or coffee Lunch salad OR leftovers from dinner Dinner protein/vegetables/stays away from potatoes, will have spaghetti with protein Snacks no snacking between meals, but if does will have cheese/apple OR popcorn Drinks water, flavored red, coffee Exercise: none, dx with RA in Dec 2021 (past year having a lot of pain) was started on methotrexate, that will increase to next dosing in May 2022 CURRENT DM MEDS LANTUS 70 units BID OZEMPIC 0.5 weekly injection METFORMIN 1000 BID No other medications for DM in the past SMBG Type of Monitor: Other USING FINGER STICKS 6-7 times per day Frequency of Monitorin-7 times a day -- ONE TOUCH ULTRA 2 BG Values: Breakfast: 157-169 Lunch: 200-244 Dinner: 116-126 Bed-time: 263 Values over past week: Highest 285; Lowest 85 Hypoglycemia: no Diet: Low carbohydrate Exercise: none secondary to pain issues with RA DM REVIEW OF SYSTEMS Last Eye Exam : 01/2022 - normal Last Podiatry Exam: 05/2021 Cardiorespiratory: negative, denies chest pain, pressure Claudication: no Dyslipidemia: Yes, controlled on medication High Blood Pressure: Yes, controlled on medication CURRENT LABS Component Latest Ref Rng & Units 04/14/2022 Hemoglobin A1C (POCT) 4.2 - 5.6 % 8.5 (A) PAST MEDICAL HISTORY Diagnosis Date De Quervain's tenosynovitis, bilateral Depression with anxiety Diabetes (HCC) Fibromyalgia Hypercholesterolemia Hypertension IBS (irritable bowel syndrome) Raynaud's disease Restless legs syndrome (RLS) PAST SURGICAL HISTORY Procedure Laterality Date CONE OF CERVIX LOOPELEC EXCIS EXTRACTION, ERUPTED TOOTH OR EXPOSED ROOT (ELEVATION AND/OR FORCEPS REMOVAL) [place] teeth x 4 HYSTERECTOMY HX precervical cancer, removed cervix KNEE SURGERY HX 4x right and left x4 FAMILY HISTORY Problem Relation Age of Onset Hypertension Mother Breast Cancer Mother other (raynaud) Mother Parkinson s Disease Father Hyperlipidemia Father Arthritis Father Breast Cancer Maternal Grandmother other (Thrombosis) Maternal Grandfather COPD Paternal Grandmother Coronary Artery Disease Paternal Grandmother Coronary Artery Disease Paternal Grandfather other (Brock Disease) Maternal Aunt Cervical Cancer Paternal Aunt Heart Paternal Aunt Factor 5 Leiden Paternal cousin Social History Tobacco Use Smoking status: Every Day Packs/day: 0.50 Years: 31.00 Pack years: 15.50 Types: Cigarettes Smokeless tobacco: Never Vaping Use Vaping Use: Never used Substance Use Topics Alcohol use: No Drug use: No Current Outpatient Medications Medication Sig celecoxib (CELEBREX) 200 mg capsule Take 200 mg by mouth every morning. folic acid 1 mg tablet Take 1 mg by mouth. methotrexate 2.5 mg tablet Take 15 mg by mouth. insulin glargine (LANTUS SOLOSTAR U-100 INSULIN) 100 unit/mL (3 mL) Inject 70 Units subcutaneously twice daily. semaglutide (OZEMPIC) 0.25 mg or 0.5 mg(2 mg/1.5 mL) pen Inject 0.5 mg subcutaneously one time a week. gabapentin (NEURONTIN) 300 mg capsule Take 1 capsule by mouth daily at bedtime for 180 days. gabapentin (NEURONTIN) 100 mg capsule Take 1 capsule by mouth twice daily for 180 days. Take one Dereje and one in afternoon. Take the 300mg before bed. diclofenac (VOLTAREN) 1 % topical gel Apply 2 g to affected area four times daily. blood sugar diagnostic ([employer] ULTRA TEST) test strip Use to test blood sugars twice daily as instructed Insulin Bradford, Disposable, (BD ULTRAFINE III MINI PEN) 31 gauge x 3/16 Use with insulin injection 2 times daily HYDROcodone-acetaminophen (NORCO) 5-325 mg per tablet Take 1 tablet by mouth every 6 hours as needed for pain. omeprazole (PRILOSEC) 20 mg capsule Take 1 capsule by mouth daily before breakfast. venlafaxine ER (EFFEXOR XR) 150 mg 24 hr capsule Take 1 capsule by mouth once daily. montelukast (SINGULAIR) 10 mg tablet Take 1 tablet by mouth daily at bedtime. amLODIPine (NORVASC) 5 mg tablet Take 1 tablet by mouth once daily. atenolol (TENORMIN) 50 mg tablet Take 1 tablet by mouth once daily. atorvastatin (LIPITOR) 20 mg tablet Take 1 tablet by mouth once daily. fenofibrate nanocrystallized (TRICOR) 145 mg tablet Take 1 tablet by mouth once daily. metFORMIN (GLUCOPHAGE) 1,000 mg tablet Take 1 tablet by mouth twice daily with meals. losartan (COZAAR) 100 mg tablet TAKE ONE-HALF TABLET BY MOUTH ONCE DAILY pramipexole (MIRAPEX) 0.5 mg tablet Take 1 tablet by mouth once daily. albuterol HFA (VENTOLIN HFA) 90 mcg/actuation inhaler Inhale 2 Puffs as instructed every 4 hours asneeded for Wheezing/Shortness of Breath. triamcinolone acetonide (NASACORT AQ) 55 mcg nasal inhaler Use 2 Sprays in the nose once daily. aspirin, enteric coated (ASPIRIN, ENTERIC COATED) 81 mg EC tablet Take 1 tablet by mouth once daily. No current facility-administered medications for this visit. ALLERGIES Allergen Reactions Jardiance [Empaglif* Other: See Comments Yeast infections Penicillin G Swelling Requip [Ropinirole] Other: See Comments seizures Wellbutrin [Bupropi* Rash REVIEW OF SYSTEMS - POSITIVES IN BOLD GENERAL:No weight loss, malaise or fevers HEENT:Negative for frequent or significant headaches, No changes in hearing or vision, no nose bleeds or other nasal problems NECK:Negative for lumps, goiter, pain and significant neck swelling RESPIRATORY: Negative for cough, hemoptysis, wheezing, COPD, dyspnea or shortness of breath CARDIOVASCULAR: Negative for chest pain, leg swelling, hypertension, CHF or palpitations PHYSICAL EXAMINATION: NONE -- telephone visit ASSESSMENT: (E11.65) Poorly controlled type 2 diabetes mellitus (HCC) (primary encounter diagnosis) Comment: Patient on large amount of basal dosing. No prandial. Is using her Metformin and GLP1 as directed. Blood sugars remain uncontrolled even with lower carb diet Patient with autoimmune issues, RA and raynauds Patient with recent COVID infection Will do ANNE/ISLET CELL Antibody tests to RULE OUT MAKAYLA STRONGLY RECOMMEND USING CGM (DEXCOM) given patient checking 6-7 times daily and insulin use. AWAIT LAB RESULTS for POC recommendations F/U in 3 months with ENDO Recommended diet: Low carbohydrate and Low saturated fat, low simple sugar, high fiber diet Exercise minimally 150 minutes per week, increase as tolerated. Adequate hydration - 1/2 body wgt in oz of water daily, unless fluid restriction applies. I instructed the patient to monitor blood sugars 4 times per day If blood sugars are persistently high or low, to call our office. Patient to continue to follow up with her PCP and with other consultants regarding her other medical problems. Plan: COMP METABOLIC PANEL, LIPID PANEL, NONFASTING, ALBUMIN/CREAT RATIO RND UR, HGB A1C Katharine Dejesus CNP 38 minutes spent via telephone visit with patient documented in this encounterPromedica Fostoria [facility]01-25-2023 Telephone encounter Note * Telephone Encounter - Olimpia Anne MD - 04/21/2022 10:55 AM EST Labs show some improvement in inflammation, plts decreased to 502, ESR/CRP normal. [facility] [id number] Miscellaneous Notes* Telephone Encounter - Olimpia Anne MD - 04/21/2022 10:55 AM EST Labs show some improvement in inflammation, plts decreased to 502, ESR/CRP normal. * Telephone Encounter - Madeline Omalley MA - 04/12/2022 1:46 PM EST Labs from fax in chart for review documented in this encounterSMansfield [id number] Nurse Note* Najma Canas LPN - 04/21/2022 10:28 AM EST Patient recently diagnosed with RA and started on methotrexate, folic acid, and Celebrex. Since then Blood sugars have been all over and running higher than they normally were. Taking Lantus Solostartaking twice a day between 68-70 units depending on what blood sugar is, Ozempic weekly, Metformin 1,000 mg twice daily Eats dinner at 5pm Fasting in the AM blood sugar has been 200s Patient reports that it seems to be taking a long time for her blood sugar to come back down after taking her insulin. Najma Canas LPN documented in this encounterPromedica Fostoria [facility]01-18-2023 History of Present illness Narrative* Gela Medina, MEDICAL AFFAIRS SPECIALIST.HAYLEE - 04/14/2022 8:37 AM EST CC: Patient presents with: Recheck: 3 month follow up HPI Jarod Rodarte is a 51 year old female who presents today for diabetes follow up. DIABETES MELLITUS: Ms. Rodarte denies increased frequency of urination, chest pain or dyspnea , numbness, tingling or pain in extremities, new or unusual visual symptoms, low sugar/hypoglycemic reactions, weight loss/gain, lightheadedness/dizziness, and bowel changes/loose stools. Follows a diabetic diet most of the time. She is compliant with medication(s) and is tolerating med(s) without any side effects. She reports checking her glucose on a once a day schedule with sugars in the fasting 110-200 range. Tried the 1mg ozempic but did not tolerate, was prescribed 0.5 mg which she tolerated but has been giving herself 0.75mg dosage for the past 2 weeks and she has tolerated well. Has also increased her lantus to 70 units twice a day. Patient's last HgA1C in office was 8.5 Hemoglobin A1C (%) Date Value 01/11/2022 7.7 08/28/2021 7.6 01/12/2021 7.9 07/17/2020 8.2 ) Last Ophthalmology exam was within the past 3 [facility]. Reports increased thirst. Has dry cracked heels that can be tender at the end of the day. Denies redness, edema, or drainage. Is on methotrexate prescribed by rheumatology and her pain and stiffness has improved greatly. Still noticing shoulder pain and inflammation with improvement but not completely. HTN: Ms. Rodarte indicates that she is feeling well and denies any symptoms referable to elevated blood pressure. Specifically denies headache, chest pain, palpitations, dyspnea, and peripheral edema. Patient denies any side effects of her medication(s) and is compliant with their regimen. She doesnot check BP's generally. Jarod denies regular aerobic exercise. She watches her diet for sodium, low fat and low cholesterol most of the time. Last 3 Encounter BP Readings: Date: BP: 04/14/2022 128/82 01/11/2022 134/82 09/11/2021 128/82 REVIEW OF SYSTEMS General: no fevers, no chills, no night sweats, no recurrent infections, no change in appetite, no change in energy, and no significant changes in weight Respiratory: no cough, no wheezing, no shortness of breath, no hemoptysis Cardiovascular: no chest pain, no chest pressure, no palpitations, and no swelling GI: No nausea, vomiting, or diarrhea : No history of dysuria, frequency or incontinence Skin: Negative for lesions, rash, and itching Endocrine: no fatigue, no neck pain/pressure, no polyuria, and no polyphagia Neurologic: No headache, weakness, numbness, tingling, dizziness, syncope. PAST MEDICAL HISTORY Diagnosis Date De Quervain's tenosynovitis, bilateral Depression with anxiety Diabetes (HCC) Fibromyalgia Hypercholesterolemia Hypertension IBS (irritable bowel syndrome) Raynaud's disease Restless legs syndrome (RLS) PAST SURGICAL HISTORY Procedure Laterality Date CONE OF CERVIX LOOPELEC EXCIS EXTRACTION, ERUPTED TOOTH OR EXPOSED ROOT (ELEVATION AND/OR FORCEPS REMOVAL) [place] teeth x 4 HYSTERECTOMY HX precervical cancer, removed cervix KNEE SURGERY HX 4x right and left x4 ALLERGIES Jardiance [Empagliflozin], Penicillin G, Requip [Ropinirole], and Wellbutrin [Bupropion Hcl] MEDICATIONS folic acid 1 mg tablet Take 1 mg by mouth. methotrexate 2.5 mg tablet Take 15 mg by mouth. celecoxib (CELEBREX) 200 mg capsule Take 200 mg by mouth every morning. semaglutide (OZEMPIC) 0.25 mg or 0.5 mg(2 mg/1.5 mL) pen Inject 0.5 mg subcutaneously one time a week. insulin glargine (LANTUS SOLOSTAR U-100 INSULIN) 100 unit/mL (3 mL) Inject 67 Units subcutaneously twice daily. gabapentin (NEURONTIN) 300 mg capsule Take 1 capsule by mouth daily at bedtime for 180 days. gabapentin (NEURONTIN) 100 mg capsule Take 1 capsule by mouth twice daily for 180 days. Take one Dereje and one in afternoon. Take the 300mg before bed. diclofenac (VOLTAREN) 1 % topical gel Apply 2 g to affected area four times daily. blood sugar diagnostic (OokbeeTOUCH ULTRA TEST) test strip Use to test blood sugars twice daily as instructed Insulin Bradford, Disposable, (BD ULTRAFINE III MINI PEN) 31 gauge x 3/16 Use with insulin injection 2 times daily HYDROcodone-acetaminophen (NORCO) 5-325 mg per tablet Take 1 tablet by mouth every 6 hours as needed for pain. omeprazole (PRILOSEC) 20 mg capsule Take 1 capsule by mouth daily before breakfast. venlafaxine ER (EFFEXOR XR) 150 mg 24 hr capsule Take 1 capsule by mouth once daily. montelukast (SINGULAIR) 10 mg tablet Take 1 tablet by mouth daily at bedtime. amLODIPine (NORVASC) 5 mg tablet Take 1 tablet by mouth once daily. atenolol (TENORMIN) 50 mg tablet Take 1 tablet by mouth once daily. atorvastatin (LIPITOR) 20 mg tablet Take 1 tablet by mouth once daily. fenofibrate nanocrystallized (TRICOR) 145 mg tablet Take 1 tablet by mouth once daily. metFORMIN (GLUCOPHAGE) 1,000 mg tablet Take 1 tablet by mouth twice daily with meals. losartan (COZAAR) 100 mg tablet TAKE ONE-HALF TABLET BY MOUTH ONCE DAILY pramipexole (MIRAPEX) 0.5 mg tablet Take 1 tablet by mouth once daily. albuterol HFA (VENTOLIN HFA) 90 mcg/actuation inhaler Inhale 2 Puffs as instructed every 4 hours asneeded for Wheezing/Shortness of Breath. triamcinolone acetonide (NASACORT AQ) 55 mcg nasal inhaler Use 2 Sprays in the nose once daily. aspirin, enteric coated (ASPIRIN, ENTERIC COATED) 81 mg EC tablet Take 1 tablet by mouth once daily. FAMILY HISTORY Problem Relation Age of Onset Hypertension Mother Breast Cancer Mother other (raynaud) Mother Parkinson s Disease Father Hyperlipidemia Father Arthritis Father Breast Cancer Maternal Grandmother other (Thrombosis) Maternal Grandfather COPD Paternal Grandmother Coronary Artery Disease Paternal Grandmother Coronary Artery Disease Paternal Grandfather other ([place] Disease) Maternal Aunt Cervical Cancer Paternal Aunt Heart Paternal Aunt Factor 5 Leiden Paternal cousin Social History Tobacco Use Smoking status: Every Day Packs/day: 0.50 Years: 31.00 Pack years: 15.50 Types: Cigarettes Smokeless tobacco: Never Vaping Use Vaping Use: Never used Substance Use Topics Alcohol use: No Drug use: No PHYSICAL EXAM BP 128/82 Pulse 72 Resp 16 Wt 83.9 kg (185 lb) BMI 30.79 kg/m General Appearance: well appearing, in no acute distress, alert Skin: Skin color, texture, turgor normal for age; Eyes: conjunctiva pink and moist, no icterus, sclera white, non-injected Lungs: Lungs clear to auscultation. No wheezing, rhonchi, rales. Heart: RRR without murmur, gallop, or rubs. No ectopy Extremities: No deformities, edema, skin discoloration, clubbing or cyanosis. Good capillary refill. Small amount of dry skin to bilateral heels with superficial fissures that are approximated. No redness edema or drainage. Health maintenance reviewed with patient: MAMMOGRAM due on 04/05/2020 PAP TESTING due on 06/12/2022 HPV TESTING due on 06/12/2022 COLORECTAL CANCER SCREENING due on 06/12/2022 SHINGRIX VACCINE(1 of 2) due on 06/12/2022 HEPATITIS B(1 of 3 - 3-dose series) due on 09/11/2022 COVID-19 VACCINE(4 - Booster for Moderna series) due on 09/11/2022 DIABETIC FOOT EXAM due on 06/12/2022 HBA1C due on 07/12/2022 BP CONTROLLED (<130/80) due on 09/11/2022 URINE ALBUMIN:CREATININE RATIO due on 01/11/2023 LDL CHOLESTEROL due on 01/11/2023 ANNUAL PCP TEAM CHRONIC DISEASE VISIT due on 01/11/2023 DILATED RETINAL EXAM due on 01/28/2023 DTAP,TDAP,TD(2 - Td or Tdap) due on 03/28/2024 PNEUMOCOCCAL(3 - PPSV23 if available, else PCV20) due on 2034 INFLUENZA Completed HEPATITIS C SCREENING Completed HIV SCREENING Completed DATA REVIEWED: Most recent labs ASSESSMENT/PLAN: 1. Type 2 diabetes mellitus with diabetic nephropathy, with long-term current use of insulin (HCC) - ICD9: 250.40, 583.81, V58.67, ICD10: E11.21, Z79.4 (primary diagnosis) Uncontrolled, concerning with patient on such a large amount of long acting insulin without much improvement, may need Humalog dosing with meals. But will consult endocrinology for further evaluation. - Blood glucose monitoring on a twice a day schedule - BP goal of <130/80 - LDL goal of <100 - CONSULT TO ENDOCRINOLOGY - HEMOGLOBIN A1C (POC) 2. Essential hypertension - ICD9: 401.9, ICD10: I10 - good control - Continue current medication(s) - Recommended regular aerobic exercise. - Recommend home blood pressure monitoring, to bring results in on next visit - Goal of BP <130/80 3. Multiple joint pain - ICD9: 719.49, ICD10: M25.50 - much improvement. Discussed with the continuous of shoulder inflammation, if it does not continueto improve physical therapy may be a good option. 4. Dry skin - ICD9: 701.1, ICD10: L85.3 - discussed using Eucerin cream or other cream or ointment specific for extremely dry skin. If no improvement or worsening of symptoms will need to see podiatry as she is diabetic. Prescription instructions reviewed with patient as applicable. Potential red flag symptoms discussed with the patient. Reviewed appropriate action plan to take if red flag symptoms occur. Patient agreeable to treatment plan. Gela Medina APRN.HAYLEE documented in this encounterPromedica [facility]01-16-2023 Telephone encounter Note * Telephone Encounter - Madeline Omalley MA - 04/12/2022 1:46 PM EST Labs from fax in chart for review [id number] Miscellaneous Notes* Telephone Encounter - Suman Cabrera RPh - 04/01/2022 12:27 PM EST The following approved medication requests have been transmitted electronically. Requested Prescriptions Signed Prescriptions Disp Refills semaglutide (OZEMPIC) 0.25 mg or 0.5 mg(2 mg/1.5 mL) pen 1.5 mL 5 Sig: Inject 0.5 mg subcutaneously one time a week. Suman Cabrera RPh documented in this encounterPromedica Fost[facility]12-13-2022 Miscellaneous Notes* Telephone Encounter - Anjelica Morales RN - 03/09/2022 11:52 AM EST Last Office Visit: 01/11/2022 Future Office Visit: 04/14/2022 Requested Prescriptions Pending Prescriptions Disp Refills insulin glargine (LANTUS SOLOSTAR U-100 INSULIN) 100 unit/mL (3 mL) 39 Each 3 Sig: Inject 67 Units subcutaneously twice daily. Date of Last Labs: 01/11/2022 documented in this encounterPromedica Fost[facility]11-15-2022 Miscellaneous Notes* Telephone Encounter - Tayler Renee RN - 02/09/2022 8:33 AM EST Patient has been identified by name and date of : Yes Pharmacy phones for refill(s): Requested Prescriptions Pending Prescriptions Disp Refills gabapentin (NEURONTIN) 300 mg capsule 90 capsule 1 Sig: Take 1 capsule by mouth daily at bedtime for 180 days. gabapentin (NEURONTIN) 100 mg capsule 180 capsule 1 Sig: Take 1 capsule by mouth twice daily for 180 days. Take one in AM and one in afternoon. Take the 300mg before bed. Date of last office visit in primary care: 01/11/22 Future visit: 04/14/22 Last 2 Encounter Wt Readings: Date: Wt: 01/11/2022 84.4 kg (186 lb) 09/11/2021 82.1 kg (181 lb) Previous labs/tests for medication: Blood Pressure: BUN (mg/dL) Date Value 01/21/2022 15 01/12/2021 10 Sodium (mmol/L) Date Value 01/21/2022 137 01/12/2021 137 Last 1 Encounter BP Readings: Date: BP: 01/11/2022 134/82 Liver Function: ALT (U/L) Date Value 01/11/2022 27 03/01/2020 24 AST (U/L) Date Value 01/11/2022 22 03/01/2020 18 Please advise. Thank you. Tayler Renee RN documented in this encounterPromedica Fostoria [facility]11-01-2022 History of Present illness Narrative* Josie Cochran RT(R) - 01/26/2022 10:20 AM EDT Radiology Service Progress Note PATIENT NAME: Jarod Rodarte DATE OF SERVICE: January 26, 2022 TIME: 10:25 AM PATIENT IDENTITY VERIFICATION COMPLETED USING TWO (2) IDENTIFIERS: Name and Date of confirmedby patient verbally. FALL SCREENING: Has the patient had 2 falls in the last year or 1 fall with injury or currently using an Ambulatory Assistive Device (Walker, Cane, Wheelchair, Crutches, etc.)? No PATIENT GENDER DATA: Female. status: : No status: NO. PATIENT RELEVANT IMPLANT DATA REVIEWED: Not Applicable RADIOLOGY DEPARTMENT: General X-ray: Exam(s) Completed: Lower Extremity X- Ray(s): Foot, Bilateral and Wt. Bearing Upper Extremity X-Ray(s): Hand, bilateral and si joints PERIPHERAL IV DATA: Not applicable SIGNED BY: RT Hieu(R) January 26, 2022 10:56 AM documented in this encounterPromedica Fost[facility]10-20-2022 Miscellaneous Notes* Telephone Encounter - Estephania Saeed LPN - 01/14/2022 12:54 PM EDT Patient returned call and went over results, notes below from Gela Medina CLINICAL PHYSICIAN ASSISTANT with understanding. * Telephone Encounter - Destiney Briceno Ma - 01/14/2022 11:37 AM EDT Left message for return call. * Telephone Encounter - Gela Medina APRN.CNP - 01/13/2022 11:00 AM EDT Please let patient know I ordered lab work to further evaluate her elevated calium and triglycerides. Triglycerides might be related to elevated blood sugar so continue with increase in medications as discussed at last appointment or not fully fasting. stop any supplements containing calcium and/orvitamin D. Platelets can increase as a reaction to autoimmune disorders or infections. We looked atthem earlier this year without issues. Can continue with the baby aspirin and we will check again in the near future to evaluate if it is still increasing. Thank you Gela Medina APRN.CNP documented in this encounterPromedica Fost[facility]10-19-2022 Miscellaneous Notes* Telephone Encounter - Sharon Reyes LPN - 01/13/2022 11:09 AM EDT Patient has been identified by name and date of : Yes Patient phones for refill(s): Requested Prescriptions Pending Prescriptions Disp Refills semaglutide (OZEMPIC) 0.25 mg or 0.5 mg(2 mg/1.5 mL) pen [Pharmacy Med Name: Ozempic (0.25 or 0.5 MG/DOSE) 2MG/1.5ML SOPN] 11 mL Sig: INJECT 0.5MG SUBCUTANEOUSLY EVERY WEEK Date of last office visit in primary care: 01/11/22 Last 2 Encounter Wt Readings: Date: Wt: 01/11/2022 84.4 kg (186 lb) 09/11/2021 82.1 kg (181 lb) Previous labs/tests for medication: Diabetes: Hemoglobin A1C (%) Date Value 01/11/2022 7.7 08/28/2021 7.6 01/12/2021 7.9 07/17/2020 8.2 Please advise. Thank you. Sharon Reyes LPN documented in this encounterPromedica Fost[facility]10-17-2022 History of Present illness Narrative* Gela Medina, MEDICAL AFFAIRS SPECIALIST.AERIAL PHOTOGRAMMETRIST - 01/11/2022 8:13 AM EDT CC: Patient presents with: Diabetes HPI Jarod Rodarte is a 51 year old female who presents today for diabetes. Has not had lab work drawn as previously ordered but planning on doing so after today's visit. DIABETES MELLITUS: Ms. Rodarte denies excessive thirst or increased frequency of urination, chest pain or dyspnea , numbness, tingling or pain in extremities, new or unusual visual symptoms, low sugar/hypoglycemic reactions, weight loss/gain, lightheadedness/dizziness, and bowel changes/loose stools. Follows a diabetic diet some of the time. She is compliant with medication(s) and is tolerating med(s) without any side effects. She reports checking her glucose on a once a day schedule with sugars in the fasting 180s range. Patient's last HgA1C was Hemoglobin A1C (%) Date Value 08/28/2021 7.6 05/26/2021 8.7 01/12/2021 7.9 07/17/2020 8.2 ) Last Ophthalmology exam was a long time ago and sees [facility]. Would like to schedule with them. Increased lantus to 67 units twice daily yesterday and blood sugars were no different this Am. Is unable to exercise because of her joint pain, and is scheduled see rheumatology for this on the . Hoping for some relief of pain so she can be more active to help control her blood sugars. Patient was on Pennsaid as ordered by orthopedics, but is almost out. REVIEW OF SYSTEMS General: no fevers, no chills, no night sweats, no recurrent infections, no change in appetite, no change in energy, and no significant changes in weight Respiratory: no cough, no wheezing, no shortness of breath, no hemoptysis Cardiovascular: no chest pain, no chest pressure, no palpitations, and no swelling Endocrine: no fatigue, no cold intolerance, no heat intolerance, no polyuria, no polyphagia, and nopolydipsia Neurologic: No weakness, numbness, tingling, dizziness, syncope. PAST MEDICAL HISTORY Diagnosis Date De Quervain's tenosynovitis, bilateral Depression with anxiety Diabetes (HCC) Fibromyalgia Hypercholesterolemia Hypertension IBS (irritable bowel syndrome) Raynaud's disease Restless legs syndrome (RLS) PAST SURGICAL HISTORY Procedure Laterality Date CONE OF CERVIX LOOPELEC EXCIS EXTRACTION, ERUPTED TOOTH OR EXPOSED ROOT (ELEVATION AND/OR FORCEPS REMOVAL) [place] teeth x 4 HYSTERECTOMY HX precervical cancer, removed cervix KNEE SURGERY HX 4x right and left x4 ALLERGIES Jardiance [Empagliflozin], Penicillin G, Requip [Ropinirole], and Wellbutrin [Bupropion Hcl] MEDICATIONS gabapentin (NEURONTIN) 300 mg capsule Take 1 capsule by mouth daily at bedtime for 180 days. gabapentin (NEURONTIN) 100 mg capsule Take 1 capsule by mouth twice daily for 180 days. Take one Dereje and one in afternoon. Take the 300mg before bed. blood sugar diagnostic (OokbeeTOUCH ULTRA TEST) test strip Use to test blood sugars twice daily as instructed PENNSAID 20 mg/gram /actuation(2 %) Insulin Bradford, Disposable, (BD ULTRAFINE III MINI PEN) 31 gauge x 3/16 Use with insulin injection 2 times daily HYDROcodone-acetaminophen (NORCO) 5-325 mg per tablet Take 1 tablet by mouth every 6 hours as needed for pain. omeprazole (PRILOSEC) 20 mg capsule Take 1 capsule by mouth daily before breakfast. semaglutide (OZEMPIC) 0.25 mg or 0.5 mg(2 mg/1.5 mL) pen injector 0.5mg weekly venlafaxine ER (EFFEXOR XR) 150 mg 24 hr capsule Take 1 capsule by mouth once daily. montelukast (SINGULAIR) 10 mg tablet Take 1 tablet by mouth daily at bedtime. amLODIPine (NORVASC) 5 mg tablet Take 1 tablet by mouth once daily. atenolol (TENORMIN) 50 mg tablet Take 1 tablet by mouth once daily. atorvastatin (LIPITOR) 20 mg tablet Take 1 tablet by mouth once daily. fenofibrate nanocrystallized (TRICOR) 145 mg tablet Take 1 tablet by mouth once daily. metFORMIN (GLUCOPHAGE) 1,000 mg tablet Take 1 tablet by mouth twice daily with meals. losartan (COZAAR) 100 mg tablet TAKE ONE-HALF TABLET BY MOUTH ONCE DAILY pramipexole (MIRAPEX) 0.5 mg tablet Take 1 tablet by mouth once daily. insulin glargine (LANTUS SOLOSTAR U-100 INSULIN) 100 unit/mL (3 mL) Inject 65 Units subcutaneously twice daily. (Patient taking differently: Inject 67 Units subcutaneously twice daily.) albuterol HFA (VENTOLIN HFA) 90 mcg/actuation inhaler Inhale 2 Puffs as instructed every 4 hours asneeded for Wheezing/Shortness of Breath. triamcinolone acetonide (NASACORT AQ) 55 mcg nasal inhaler Use 2 Sprays in the nose once daily. aspirin, enteric coated (ASPIRIN, ENTERIC COATED) 81 mg EC tablet Take 1 tablet by mouth once daily. FAMILY HISTORY Problem Relation Age of Onset Hypertension Mother Breast Cancer Mother other (raynaud) Mother Parkinson s Disease Father Hyperlipidemia Father Arthritis Father Breast Cancer Maternal Grandmother other (Thrombosis) Maternal Grandfather COPD Paternal Grandmother Coronary Artery Disease Paternal Grandmother Coronary Artery Disease Paternal Grandfather other ([place] Disease) Maternal Aunt Cervical Cancer Paternal Aunt Heart Paternal Aunt Factor 5 Leiden Paternal cousin Social History Tobacco Use Smoking status: Every Day Packs/day: 0.50 Years: 31.00 Pack years: 15.50 Types: Cigarettes Smokeless tobacco: Never Vaping Use Vaping Use: Never used Substance Use Topics Alcohol use: No Drug use: No PHYSICAL EXAM BP 134/82 Pulse 86 Ht 165.1 cm (5' 5) Wt 84.4 kg (186 lb) SpO2 97% BMI 30.95 kg/m General Appearance: well appearing, in no acute distress, alert Eyes: conjunctiva pink and moist, no icterus, sclera white, non-injected Lungs: Lungs clear to auscultation. No wheezing, rhonchi, rales. Heart: RRR without murmur, gallop, or rubs. No ectopy Health maintenance reviewed with patient: HEPATITIS C SCREENING Never done HIV SCREENING Never done DILATED RETINAL EXAM due on 12/31/2018 MAMMOGRAM due on 04/05/2020 INFLUENZA(1) due on 11/26/2021 URINE ALBUMIN:CREATININE RATIO due on 01/12/2022 LDL CHOLESTEROL due on 01/12/2022 PAP TESTING due on 06/12/2022 HPV TESTING due on 06/12/2022 COLORECTAL CANCER SCREENING due on 06/12/2022 SHINGRIX VACCINE(1 of 2) due on 06/12/2022 HEPATITIS B(1 of 3 - 3-dose series) due on 09/11/2022 COVID-19 VACCINE(4 - Booster for Moderna series) due on 09/11/2022 HBA1C due on 02/27/2022 DIABETIC FOOT EXAM due on 06/12/2022 ANNUAL PCP TEAM CHRONIC DISEASE VISIT due on 09/11/2022 BP CONTROLLED (<130/80) due on 09/11/2022 DTAP,TDAP,TD(2 - Td or Tdap) due on 03/28/2024 PNEUMOCOCCAL(3 - PPSV23 if available, else PCV20) due on 2034 DATA REVIEWED: No new labs ASSESSMENT/PLAN: 1. Type 2 diabetes mellitus with diabetic nephropathy, with long-term current use of insulin (HCC) - ICD9: 250.40, 583.81, V58.67, ICD10: E11.21, Z79.4 (primary diagnosis) uncontrolled - Continue current medications - increasing ozempic and ok to continue at lantus dosage as increased by patient. - Blood glucose monitoring on a once a day schedule - Ophthalmology referral for eval/management of diabetic eye changes - BP goal of <130/80 - LDL goal of <100 - ALBUMIN/CREAT RATIO RND UR 2. Multiple joint pain - ICD9: 719.49, ICD10: M25.50 Diclofenac gel as ordered for when you run out of pennsaid 3. Encounter for immunization - ICD9: V03.89, ICD10: Z23 - INFLUENZA VACCINE QUADRIVALENT 6 MO - 64 YRS IM Prescription instructions reviewed with patient as applicable. Potential red flag symptoms discussed with the patient. Reviewed appropriate action plan to take if red flag symptoms occur. Patient agreeable to treatment plan. Gela Medina APRN.CNP documented in this encounterPromedica Fost[facility]08-01-2022 Miscellaneous Notes* Telephone Encounter - Oz Elkins RN - 10/26/2021 1:34 PM EDT Faxed referral to Rheumatology, Dr. Kin Soto, per patient request. . documented in this encounterPromedica Fostoria [facility]06-17-2022 History of Present illness Narrative* Gela Medina APRN.CNP - 09/11/2021 8:33 AM EDT CC: Patient presents with: Recheck: 3 month DM follow up HPI Jarod Rodarte is a 50 year old female who presents today for diabetic follow up, but is also having uncontrolled pain related to her fibromyalgia. Pain: Has tried gabapentin 100mg 3 times a day without improvement. Has trouble sleeping because ofthe pain and stiffness. Was on meloxicam that did not help, but started pennsaid cream for left knee issues which works wonderfully to the left knee when she places it. Was told not to take meloxicamwhile using the pennsaid cream by ortho. DIABETES MELLITUS: Ms. Rdoartedenies excessive thirst or increased frequency of urination, chest pain or dyspnea , numbness, tingling or pain in extremities, new or unusual visual symptoms, low sugar/hypoglycemic reactions, weight loss/gain, lightheadedness/dizziness and bowel changes/loose stools.Follows a diabetic diet some of the time. She is compliant with medication(s) and is tolerating med(s) without any side effects. She reports checking her glucose on a once a day schedule with sugars in the fasting 120s-140s range. Patient's last HgA1C was Hemoglobin A1C (%) Date Value 08/28/2021 7.6 05/26/2021 8.7 01/12/2021 7.9 07/17/2020 8.2 ) Last Ophthalmology exam was 2 years. Usually goes [facility], would like to see someone closer. HTN: Ms. Rodarte indicates that she is feeling well and denies any symptoms referable to elevated blood pressure. Specifically denies headache, chest pain, palpitations, dyspnea and peripheral edema.Patient denies any side effects of her medication(s) and is compliant with their regimen. She does not check BP's generally. Jarod denies regular aerobic exercise. She watches her diet for sodium,low fat and low cholesterol some of the time. Last 3 Encounter BP Readings: Date: BP: 09/11/2021 128/82 08/03/2021 140/80 06/30/2021 148/72 REVIEW OF SYSTEMS General: no fevers, no chills, no night sweats, no recurrent infections, no change in appetite, no change in energy and no significant changes in weight Respiratory: no cough, no wheezing, no shortness of breath, no hemoptysis Cardiovascular: no chest pain, no chest pressure, no palpitations and no swelling GI: No nausea, vomiting, or diarrhea Endocrine: no cold intolerance, no heat intolerance, no polyuria, no polyphagia and no polydipsia Neurologic: No headache, weakness, numbness, tingling, dizziness, syncope. PAST MEDICAL HISTORY Diagnosis Date De Quervain's tenosynovitis, bilateral Depression with anxiety Diabetes (HCC) Fibromyalgia Hypercholesterolemia Hypertension IBS (irritable bowel syndrome) Raynaud's disease Restless legs syndrome (RLS) PAST SURGICAL HISTORY Procedure Laterality Date CONE OF CERVIX LOOPELEC EXCIS EXTRACTION, ERUPTED TOOTH OR EXPOSED ROOT (ELEVATION AND/OR FORCEPS REMOVAL) [place] teeth x 4 HYSTERECTOMY HX precervical cancer, removed cervix KNEE SURGERY HX 4x right and left x4 ALLERGIES Jardiance [Empagliflozin], Penicillin G, Requip [Ropinirole], and Wellbutrin [Bupropion Hcl] MEDICATIONS blood sugar diagnostic ([employer]UCH ULTRA TEST) test strip Use to test blood sugars twice daily as instructed PENNSAID 20 mg/gram /actuation(2 %) Insulin Bradford, Disposable, (BD ULTRAFINE III MINI PEN) 31 gauge x 3/16 Use with insulin injection 2 times daily docusate sodium (COLACE) 100 mg capsule Take 1 capsule by mouth twice daily as needed for constipation. HYDROcodone-acetaminophen (NORCO) 5-325 mg per tablet Take 1 tablet by mouth every 6 hours as needed for pain. omeprazole (PRILOSEC) 20 mg capsule Take 1 capsule by mouth daily before breakfast. semaglutide (OZEMPIC) 0.25 mg or 0.5 mg(2 mg/1.5 mL) pen injector 0.5mg weekly venlafaxine ER (EFFEXOR XR) 150 mg 24 hr capsule Take 1 capsule by mouth once daily. montelukast (SINGULAIR) 10 mg tablet Take 1 tablet by mouth daily at bedtime. amLODIPine (NORVASC) 5 mg tablet Take 1 tablet by mouth once daily. atenolol (TENORMIN) 50 mg tablet Take 1 tablet by mouth once daily. atorvastatin (LIPITOR) 20 mg tablet Take 1 tablet by mouth once daily. fenofibrate nanocrystallized (TRICOR) 145 mg tablet Take 1 tablet by mouth once daily. metFORMIN (GLUCOPHAGE) 1,000 mg tablet Take 1 tablet by mouth twice daily with meals. losartan (COZAAR) 100 mg tablet TAKE ONE-HALF TABLET BY MOUTH ONCE DAILY pramipexole (MIRAPEX) 0.5 mg tablet Take 1 tablet by mouth once daily. gabapentin (NEURONTIN) 100 mg capsule Take 1 capsule by mouth twice daily for 180 days. insulin glargine (LANTUS SOLOSTAR U-100 INSULIN) 100 unit/mL (3 mL) Inject 65 Units subcutaneously twice daily. albuterol HFA (VENTOLIN HFA) 90 mcg/actuation inhaler Inhale 2 Puffs as instructed every 4 hours asneeded for Wheezing/Shortness of Breath. triamcinolone acetonide (NASACORT) 55 mcg nasal inhaler Use 2 Sprays in the nose once daily. aspirin, enteric coated (ADULT LOW DOSE ASPIRIN) 81 mg EC tablet Take 1 tablet by mouth once daily. FAMILY HISTORY Problem Relation Age of Onset Hypertension Mother Breast Cancer Mother other (raynaud) Mother Parkinson s Disease Father Hyperlipidemia Father Arthritis Father Breast Cancer Maternal Grandmother other (Thrombosis) Maternal Grandfather COPD Paternal Grandmother Coronary Artery Disease Paternal Grandmother Coronary Artery Disease Paternal Grandfather other (Brock Disease) Maternal Aunt Cervical Cancer Paternal Aunt Heart Paternal Aunt Factor 5 Leiden Paternal cousin Social History Tobacco Use Smoking status: Current Every Day Smoker Packs/day: 0.50 Years: 31.00 Pack years: 15.50 Types: Cigarettes Smokeless tobacco: Never Used Vaping Use Vaping Use: Never used Substance Use Topics Alcohol use: No Drug use: No PHYSICAL EXAM BP 128/82 Pulse 84 Resp 16 Wt 82.1 kg (181 lb) BMI 30.12 kg/m General Appearance: well appearing, in no acute distress, alert Pysch: mood and affect broad and appropriate Eyes: conjunctiva pink and moist, no icterus, sclera white, non-injected Lungs: Lungs clear to auscultation. No wheezing, rhonchi, rales. Heart: RRR without murmur, gallop, or rubs. No ectopy Health maintenance reviewed with patient: HEPATITIS C SCREENING Never done HIV SCREENING Never done BP CONTROLLED (<130/80) Never done HEPATITIS B(1 of 3 - Risk 3-dose series) Never done DILATED RETINAL EXAM due on 12/31/2018 MAMMOGRAM due on 04/05/2020 COVID-19 VACCINE(4 - Booster for Moderna series) due on 07/30/2021 DTAP,TDAP,TD(1 - Tdap) due on 06/12/2022 PAP TESTING due on 06/12/2022 HPV TESTING due on 06/12/2022 COLORECTAL CANCER SCREENING due on 06/12/2022 SHINGRIX VACCINE(1 of 2) due on 06/12/2022 URINE ALBUMIN:CREATININE RATIO due on 01/12/2022 LDL CHOLESTEROL due on 01/12/2022 HBA1C due on 02/27/2022 DIABETIC FOOT EXAM due on 06/12/2022 ANNUAL PCP TEAM CHRONIC DISEASE VISIT due on 06/12/2022 PNEUMOCOCCAL(3 - PPSV23 or PCV20) due on 2034 INFLUENZA Completed DATA REVIEWED: Most recent labs ASSESSMENT/PLAN: 1. Type 2 diabetes mellitus with diabetic nephropathy, with long-term current use of insulin (HCC) - ICD9: 250.40, 583.81, V58.67, ICD10: E11.21, Z79.4 (primary diagnosis) improved control - Continue current medications - Blood glucose monitoring on a once a day schedule - Ophthalmology referral for eval/management of diabetic eye changes - Encouraged regular aerobic exercise and weight loss - BP goal of <130/80 - LDL goal of <100 - COMP METABOLIC PANEL - HGB A1C - CONSULT TO OPHTHALMOLOGY - follow up in 4 months 2. Hyperlipidemia, unspecified hyperlipidemia type - ICD9: 272.4, ICD10: E78.5 - to be determined upon return of lab results - Continue current medication. - Encouraged following a low fat, low cholesterol diet. - Discussed the benefits of regular aerobic exercise and weight loss. - COMP METABOLIC PANEL - LIPID PANEL BASIC 3. Essential hypertension - ICD9: 401.9, ICD10: I10 - good control - Continue current medication(s) - Recommended regular aerobic exercise. - Recommend home blood pressure monitoring, to bring results in on next visit - Goal of BP <130/80 - COMP METABOLIC PANEL - CBC + DIFF 4. Fibromyalgia syndrome - ICD9: 729.1, ICD10: M79.7 - pain uncontrolled and worse at night. Will continue to increase gabapentin for this. Will start with 300mg at night and then the 100mg in AM and in afternoon 5. Special screening examination for viral disease - ICD9: V73.99, ICD10: Z11.59 - HEP C AB IA W/CONF SCRN 6. Screening for HIV (human immunodeficiency virus) - ICD9: V73.89, ICD10: Z11.4 - HIV 1 2 COMBO(AG/AB),WITH REFLEX TO DIFFERENTIATION Prescription instructions reviewed with patient as applicable. Potential red flag symptoms discussed with the patient. Reviewed appropriate action plan to take if red flag symptoms occur. Patient agreeable to treatment plan. Gela Median APRN.CNP documented in this encounterPromedica Fostoria [facility]06-02-2022 History of Present illness Narrative* Suman Cabrera [facility] - 08/27/2021 2:00 PM EDT Primary Care Pharmacy Visit CC (Reason for Consult): Diabetes Goal: A1c < 7% Collaborating Provider: Dr. Mobley Last Provider Visit: 08/03/21 Jarod Rodarte is a 50 year old female presenting for follow up visit by telephone. Patient consents to pharmacy collaborative practice agreement. . Patient is presenting today for f/up pharmacotherapy management appointment for diabetes. At last PharmD visit on 06/11, patient reported Ozempic was no longer covered by insurance but Rybelsus was. She had a 3 mo supply so f/up scheduled for today to transition to Rybelsus. At last [facility] PHOTOGRAM[facility] appt, patient was seen for knee pain. Subjective: HPI: Patient's mother is living with her currently since she (mother) had a recent heart attack. Says knee is the size of a grapefruit. She is getting bloodwork tomorrow and has a rheum appt laterthis summer. Having a lot of pain with knee. Smoking more as a result. Not interested in quitting at this time. Feels sugars are doing really well. She feels she has very low energy, thinks maybe there is a rheum explanation for it. I'm ready for bed by 6 PM. Has 3 boxes of Ozempic left (~3 months). Still needs switched to Rybelsus for insurance reasons. Current DM Medications: Metformin 1000mg BID Semaglutide (Ozempic) 0.5mg weekly on Tuesday Insulin glargine (Lantus) 65 units BID Past DM medications: Jardiance - yeast infections GLYCEMIC CONTROL: Glucometer present at visit: No SMBG s: Date Fasting AM 2 hr PP Before Lunch 08/27 130 132 08/25 98 08/22 111 08/19 121 08/17 115 08/16 120 Hypoglycemia: none recently Preventative Medications: On MANDY/ARB: Yes On Statin: Yes MEDICATIONS: Pill bottles are not present Adherence: denies missed doses Pharmacy: [facility] Rx coverage: [place] and [employer] Affordability: no issues Diabetes supplies: not addressed Organization System: pill box ACTIVE PROBLEM LIST Depression With Anxiety Hyperlipidemia Essential Hypertension Fibromyalgia Syndrome Tobacco Abuse Type 2 Diabetes Mellitus With Diabetic Nephropathy (Hcc) Proteinuria Tendinitis of Thumb Raynaud's Syndrome Irritable Bowel Syndrome With Diarrhea Restless Leg Syndrome Chronic Pain Syndrome Gastroesophageal Reflux Disease Without Esophagitis Thrombocytosis Moderate Smoker (20 Or Less Per Day) PAST MEDICAL HISTORY Diagnosis Date De Quervain's tenosynovitis, bilateral Depression with anxiety Diabetes (HCC) Fibromyalgia Hypercholesterolemia Hypertension IBS (irritable bowel syndrome) Raynaud's disease Restless legs syndrome (RLS) ALLERGIES Allergen Reactions Jardiance [Empaglif* Other: See Comments Yeast infections Penicillin G Swelling Requip [Ropinirole] Other: See Comments seizures Wellbutrin [Bupropi* Rash Medication List Medication Directions Comments Action/Plan albuterol HFA (VENTOLIN HFA) 90 mcg/actuation inhaler Inhale 2 Puffs as instructed every 4 hours asneeded for Wheezing/Shortness of Breath. amLODIPine (NORVASC) 5 mg tablet Take 1 tablet by mouth once daily. aspirin, enteric coated (ADULT LOW DOSE ASPIRIN) 81 mg EC tablet Take 1 tablet by mouth once daily. atenolol (TENORMIN) 50 mg tablet Take 1 tablet by mouth once daily. atorvastatin (LIPITOR) 20 mg tablet Take 1 tablet by mouth once daily. docusate sodium (COLACE) 100 mg capsule Take 1 capsule by mouth twice daily as needed for constipation. fenofibrate nanocrystallized (TRICOR) 145 mg tablet Take 1 tablet by mouth once daily. gabapentin (NEURONTIN) 100 mg capsule Take 1 capsule by mouth twice daily for 180 days. HYDROcodone-acetaminophen (NORCO) 5-325 mg per tablet Take 1 tablet by mouth every 6 hours as needed for pain. insulin glargine (LANTUS SOLOSTAR U-100 INSULIN) 100 unit/mL (3 mL) Inject 65 Units subcutaneously twice daily. Insulin Bradford, Disposable, (BD ULTRAFINE III MINI PEN) 31 gauge x 3/16 Use with insulin injection 2 times daily losartan (COZAAR) 100 mg tablet TAKE ONE-HALF TABLET BY MOUTH ONCE DAILY meloxicam (MOBIC) 15 mg tablet Take 1 tablet by mouth once daily. for pain. Take with food. metFORMIN (GLUCOPHAGE) 1,000 mg tablet Take 1 tablet by mouth twice daily with meals. montelukast (SINGULAIR) 10 mg tablet Take 1 tablet by mouth daily at bedtime. omeprazole (PRILOSEC) 20 mg capsule Take 1 capsule by mouth daily before breakfast. pramipexole (MIRAPEX) 0.5 mg tablet Take 1 tablet by mouth once daily. semaglutide (OZEMPIC) 0.25 mg or 0.5 mg(2 mg/1.5 mL) pen injector 0.5mg weekly triamcinolone acetonide (NASACORT) 55 mcg nasal inhaler Use 2 Sprays in the nose once daily. venlafaxine ER (EFFEXOR XR) 150 mg 24 hr capsule Take 1 capsule by mouth once daily. Objective: Exam: Last 3 Encounter BP Readings: Date: BP: 08/03/2021 140/80 06/30/2021 148/72 06/16/2021 131/77 Wt: 81.2 kg (179 lb) BMI: 29.79 kg/(m^2) LABS: Reviewed Lab Results Component Value Date HBA1C 8.7 05/26/2021 HBA1C 7.9 01/12/2021 HBA1C 8.2 07/17/2020 HBA1C 8.6 01/04/2020 CMP: Glucose 304 06/16/2021 BUN 9 06/16/2021 Creatinine 0.62 06/16/2021 Sodium 136 06/16/2021 Potassium 4.0 06/16/2021 Chloride 104 06/16/2021 CO2 22 06/16/2021 Protein, Total 6.5 06/16/2021 Albumin 4.0 06/16/2021 Calcium 9.4 06/16/2021 Alkaline Phosphatase 82 06/16/2021 Bilirubin, Total 0.2 06/16/2021 AST 15 06/16/2021 ALT 19 06/16/2021 Estimated Creatinine Clearance: 113 mL/min (based on SCr of 0.62 mg/dL). Lab Results Component Value Date CHOL 145 01/12/2021 LDL 89 01/12/2021 HDL 28 01/12/2021 TG 140 01/12/2021 The 10-year ASCVD risk score (Orinjaja PARK Jr., et al., 2013) is: 16.2% Values used to calculate the score: Age: 50 years Sex: Female Is Non- : No Diabetic: Yes Tobacco smoker: Yes Systolic Blood Pressure: 140 mmHg Is BP treated: Yes HDL Cholesterol: 28 mg/dL Total Cholesterol: 145 mg/dL Albumin/Creat Ratio (mg/g) Date Value 01/12/2021 489 (H) PHARMACOTHERAPY ASSESSMENT/PLAN: 1. Type 2 diabetes mellitus with diabetic nephropathy, unspecified whether financial services officer insulin use (HCC) - ICD9: 250.40, 583.81, ICD10: E11.21 (primary diagnosis) A1c goal < 7%; uncontrolled (last A1c 8.7%); recent FBGs mostly within goal range; no recent lows or issues at this time; patient has ~3 mo of Ozempic remaining then needs switched to Rybelsus forinsurance reasons; patient having a lot of knee pain, will be following up with rheumatology to hopefully get it addressed which should also help with BG control; patient overbasalized with insulin, likely needs mealtime insulin but won't start given minimal BGs to review and FBGs currently at goalrange; will plan to f/up after next A1c and after Ozempic is switched to Rybelsus; renal fxn and LFTs sufficient for use CONTINUE metformin 1000mg BID, Ozempic 0.5mg weekly, and Lantus 65 units BID Encouraged occasionally checking a pre/post meal BG or HS BG to see how BGs are later in the day Patient to contact PharmD in several months when she is about out of Ozempic, will plan to switch to Rybelsus 7mg daily at that time ACEi/ARB for renal protection: yes, Scr and K+ sufficient Statin: yes, LFTs WNL HbA1c: due now 2. Tobacco abuse - ICD9: 305.1, ICD10: Z72.0 Precontemplation stage of change; patient in a lot of pain, not interested in quitting at this time; will continue to address in the future Discussed physiologic and physical aspects of tobacco addiction as well as strategies for quitting Patient is scheduled to see [facility] on 09/11. Patient verbalized understanding of instructions. Suman Cabrera, MaryD, [facility] Primary Care Clinical Pharmacist Tenisha Noland [facility] The majority of the pharmacy visit (> 50%) was spent counseling and/or coordinating care for thepatient. interaction: telephonic time was 28 minutes. documented in this encounterPromedica Fostoria [facility]05-03-2022 Miscellaneous Notes* Telephone Encounter - Jackie Glover RN - 07/28/2021 4:03 PM EDT Patient calls back in to let provider know that Dr. Winston with [facility] sent in a prescription for tramadol 50 mg two at bedtime for pain. Patient reports she doesn't need anything for insomnia if she has tramadol. Patient to call back for further questions/concerns. Jackie Glover RN * Telephone Encounter - Wanda Karissa Holloway LPN - 07/28/2021 3:27 PM EDT Pt calling and states she is having problems sleeping due to the knee pain. Patient states she is just so tired. Dr. Winston with [facility] is trying to get her insurance to cover an MRI. She is taking Tylenol for the pain because she is out of the pain meds given to her previously. Pt is going to contact her Ortho doctor regarding something for pain. Please advise pt regarding sleep. Wanda Karissa Amie FORMAN documented in this encounterPromedica Fostoria [facility]04-05-2022 History of Present illness Narrative* Darya Jackson MD - 06/30/2021 1:18 PM EDT PATIENT NAME: Jarod Rodarte. CLINIC NO: [id number]. ATTENDING PHYSICIAN: Dr. Darya Jackson. DATE OF SERVICE:06/30/2021. DIAGNOSIS: Reactive thrombocytosis HPI: Ms. Jarod Rodarte is a 50 year old female with a past medical history of HTN, diabetes mellitus, familial hypercholesterolemia, mitral valve prolapse, IBS who presents with elevated platelet count referred from her PCP. Platelet count today was 491, and 12 days ago it was 517. . She denies chest pain, shortness of breath, dizziness, fever, fatigue, unusual weight changes. She states that she has smoked 1/2 pack per day of cigarettes for 32 years and denies alcohol use. Patient had a hysterectomy and no longer menstruates. Interim history: Patient returns today after her initial evaluation for chronic thrombocytosis. Sheis still trying to stop smoking but was not able to get nicotine patch through her insurance. She has no chest pain cough or shortness of breath. All medications & allergies updated and reviewed by me. 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 Sclerae white, conjunctivae pink. PEERL. EOMs are intact.Oropharynx is benign. LYMPHATICS: no lymphadenopathy in neck, supraclavicular region, axilla, groin LUNGS: Lungs are clear to auscultation. HEART: Heart is normal without murmurs, gallops, or rubs. ABDOMEN: Soft and nontender without organomegaly. No masses can be palpated. EXTREMITIES: Are without edema. NEUROLOGIC: Exam is physiologic LABORATORY DATA: Component Latest Ref Rng & Units 06/16/2021 WBC 3.70 - 11.00 k/uL 7.96 RBC 3.90 - 5.20 m/uL 5.15 Hemoglobin 11.5 - 15.5 g/dL 14.8 Hematocrit 36.0 - 46.0 % 43.6 MCV 80.0 - 100.0 fL 84.7 MCH 26.0 - 34.0 pg 28.7 MCHC 30.5 - 36.0 g/dL 33.9 RDW-CV 11.5 - 15.0 % 13.9 Platelet Count 150 - 400 k/uL 491 (H) MPV 9.0 - 12.7 fL 8.4 (L) Neut% % 69.2 Abs Neut (ANC) 1.45 - 7.50 k/uL 5.51 Lymph% % 22.4 Abs Lymph 1.00 - 4.00 k/uL 1.78 [place]% % 5.3 Abs [place] <0.87 k/uL 0.42 Eosin% % 2.0 Abs Eosin <0.46 k/uL 0.16 Baso% % 0.5 Abs Baso <0.11 k/uL 0.04 Immature Gran % % 0.6 IMMATURE GRANS (ABS) <0.10 k/uL 0.05 NRBC /100 WBC 0.0 Absolute nRBC <0.01 k/uL <0.01 DTYPE Auto Uric Acid 2.5 - 6.6 mg/dL 3.0 LD 135 - 214 U/L 167 WSR 0 - 20 mm/hr 9 Result: CALR - No variant detected (Reference sequence: [id number]). JAK2 - No variant detected (Reference sequence: [id number]). MPL - No variant detected (Reference sequence: [id number]). IMPRESSION: This is a 50 year old female who presents with thrombocytosis for over 2 years, but no history of bleeding or thrombosis. She has reactive thrombocytosis, and her myeloproliferative panelwere negative. PLAN: Age-appropriate cancer screening discussed including colonoscopy and mammogram as well as smoking cessation. Follow-up with PCP. Portions of this documentation were copied and pasted from previous office visit notes in order to provide a cohesive continuity of the history. The note has been reviewed and edited and updated as necessary. Darya Jackson MD Cc: Dr. Melyssa Mobley documented in this encounterPromedica Fostoria [facility]04-01-2022 Miscellaneous Notes* Telephone Encounter - Anjelica Morales RN - 06/26/2021 1:05 PM EDT Patient states that she never received nicotine patients because [employer] told her that they neversend through the mail. Patient asking if these can be sent to [facility]. Please review and advise, Anjelica Morales RN * Telephone Encounter - Wanda Holloway LPN - 06/26/2021 12:13 PM EDT Left a message for pt to call the office and ask to speak to a triage nurse. Wanda Holloway LPN * Telephone Encounter - Shy Linares LPN - 06/25/2021 1:27 PM EDT Left message to return call * Telephone Encounter - Gela Medina APRN.CNP - 06/25/2021 9:28 AM EDT Please verify with patient if she already picked up the nicotine patches at previous pharmacy. Thank you Gela Medina APRN.[facility]OTOGRAM[facility]RIST * Telephone Encounter - Anjelica Morales RN - 06/24/2021 10:35 AM EDT Patient has been identified by name and date of : Yes Patient phones for refill(s): Pending Prescriptions Disp Refills OMEPRAZOLE 20 MG CAPSULE,DELAYED RELEASE 90 capsule 3 Sig: Take 1 capsule by mouth daily before breakfast. NIDHI: No OZEMPIC 0.25 MG OR 0.5 MG (2 MG/1.5 ML) SUBCUTANEOUS PEN INJECTOR 4.5 mL 3 Si.5mg weekly NIDHI: No VENLAFAXINE ER 150 MG CAPSULE,EXTENDED RELEASE 24 HR 90 capsule 3 Sig: Take 1 capsule by mouth once daily. NIDHI: No MONTELUKAST 10 MG TABLET 90 tablet 3 Sig: Take 1 tablet by mouth daily at bedtime. NIDHI: No AMLODIPINE 5 MG TABLET 90 tablet 3 Sig: Take 1 tablet by mouth once daily. NIDHI: No ATENOLOL 50 MG TABLET 90 tablet 3 Sig: Take 1 tablet by mouth once daily. NIDHI: No ATORVASTATIN 20 MG TABLET 90 tablet 3 Sig: Take 1 tablet by mouth once daily. NIDHI: No NAPROXEN 500 MG TABLET 60 tablet 0 Sig: Take 1 tablet by mouth twice daily as needed. NIDHI: No FENOFIBRATE NANOCRYSTALLIZED 145 MG TABLET 90 tablet 3 Sig: Take 1 tablet by mouth once daily. NIDHI: No METFORMIN 1,000 MG TABLET 180 tablet 3 Sig: Take 1 tablet by mouth twice daily with meals. NIDHI: No LOSARTAN 100 MG TABLET 45 tablet 3 Sig: TAKE ONE-HALF TABLET BY MOUTH ONCE DAILY NIDHI: No PRAMIPEXOLE 0.5 MG TABLET 90 tablet 3 Sig: Take 1 tablet by mouth once daily. NIDHI: No GABAPENTIN 100 MG CAPSULE 180 capsule 1 Sig: Take 1 capsule by mouth twice daily for 180 days. NIDHI: No NICOTINE 21 MG/24 HR DAILY TRANSDERMAL PATCH 54 Patch 0 Sig: Apply 1 Patch as directed every 24 hours. NO smoking while on patch. Apply 21mg patch once daily for 6 weeks, then 14mg patch once daily for 2 weeks, then 7mg patch once daily for 2 weeks. NIDHI: No NICOTINE 14 MG/24 HR DAILY TRANSDERMAL PATCH 14 Patch 0 Sig: Apply 1 Patch as directed every 24 hours. No smoking with patch. Apply 21mg patch once daily for 6 weeks, then 14mg patch once daily for 2 weeks, then 7mg patch once daily for 2 weeks. NIDHI: No NICOTINE 7 MG/24 HR DAILY TRANSDERMAL PATCH 14 Patch 0 Sig: Apply 1 Patch as directed every 24 hours. No smoking with patch. Apply 21mg patch once daily for 6 weeks, then 14mg patch once daily for 2 weeks, then 7mg patch once daily for 2 weeks. NIDHI: No Date of last office visit in primary care: 06/12/2021 Patient is switching mail order pharmacies and is asking if prescriptions can be sent to [facility]. Last 2 Encounter Wt Readings: Date: Wt: 06/16/2021 84.4 kg (186 lb) 06/12/2021 83.5 kg (184 lb) Previous labs/tests for medication: Diabetes: Hemoglobin A1C (%) Date Value 05/26/2021 8.7 01/12/2021 7.9 07/17/2020 8.2 Cholesterol: HDL Cholesterol (mg/dL) Date Value 01/12/2021 28 LDL Cholesterol (mg/dL) Date Value 01/12/2021 89 ALT (U/L) Date Value 06/16/2021 19 03/01/2020 24 Non HDL Cholesterol (mg/dL) Date Value 01/12/2021 117 Blood Pressure: BUN (mg/dL) Date Value 06/16/2021 9 01/12/2021 10 Sodium (mmol/L) Date Value 06/16/2021 136 01/12/2021 137 Last 1 Encounter BP Readings: Date: BP: 06/16/2021 131/77 Liver Function: ALT (U/L) Date Value 06/16/2021 19 03/01/2020 24 AST (U/L) Date Value 06/16/2021 15 03/01/2020 18 Please advise. Thank you. Anjelica Morales RN documented in this encounterPromedica Fostoria [facility]02-16-2022 Hospital Discharge instructions Patient Education 05/13/2021 18:33:45 Crutch Walking Crutch Walking Crutch adjustment Make sure the crutches you use are adjusted to fit you. When you stand, there should be room to fit2 to 3 fingers between the top of the crutch and your armpit. Your elbow should be slightly bent when holding the hand college admissions counselor. When your arms hang down, the crutch handle should be at the top of your hip. Crutch walking Place the crutches forward about 1 foot in front of you. The crutches should be a little farther apart than your body. Lean your weight forward as you push down on the hand college admissions counselor. Make sure your weight is on your hands and your strong leg, not your armpits. Let your body swing forward, landing on the strong leg. Move the crutches forward again. The crutch and your injured leg should move together. Going up steps with no handrails (Up with the good leg) With both crutches (under each armpit) on the same step as your feet, push down on the hand college admissions counselor. Balancing with very light pressure on the weak leg, let your hands support your weight. Raise your strong leg onto the next higher step. Transfer all your weight to your strong leg (still bent). Move the crutches up to the next step, next to your strong leg. Keep your weight evenly balanced on the two crutches and your strong leg. Straighten your strong knee as you raise your weak leg up to the next step. Going down steps with no handrails (Down with the bad leg) With both crutches (under each armpit) on the same step as your feet, push down on the hand college admissions counselor. Keep your weight evenly balanced on the two crutches and your strong leg. Bend your strong knee as you lower your weak leg down to the next step. Let your strong leg support you (still bent) as you move the crutches down next to the weak leg. Transfer your weight to your hands. Balance with very light pressure on your weak leg as you lower your strong leg next to your weak leg Going up steps with handrails (Up with the good leg) Face the stairs, holding the handrail with one hand. Place both crutches under your armpit on the opposite side. Push down on the hand college admissions counselor. Balancing with very light pressure on the weak leg, let your hands support your weight. Raise your strong leg onto the next higher step. Transfer all your weight to your strong leg (still bent) as you move the crutches up (while holdingon to the handrail) to the next step next to the strong leg. Keep your weight evenly balanced on the handrail, the crutches (still under the same armpit opposite the handrail), and your strong leg. Straighten your strong knee as you raise the weak leg up to the next step. Going down steps with handrails (Down with the bad leg) Face the stairs, holding the handrail with one hand. Place both crutches under your armpit on the opposite side. Push down on the hand college admissions counselor. Balance your weight evenly on the crutches, handrail, and your strong leg. Then bend your strong knee as you lower the weak leg down to the next step. Let the handrail and your strong leg support you (still bent) as you move the crutches down alongside the weak leg. While holding on to the handrail and crutches (under the same armpit on the other side), transfer your weight to your hands, balancing with very light pressure on the weak leg as you lower your strong leg alongside your weak leg Tip: If you are worried about falling or you feel unsteady, try sitting when going up or down stairs instead. Sit on the bottom step and keep your injured leg out in front of you. Hold your crutches flat against the stairs. Then slide up to the next step on your bottom. Use your free hand and good leg for support. Face the same way when going down stairs. [id number] [employer]. [address] [place] [address], [place] [address]. All rights reserved. This information is not intended as a substitute for professional medical care. Always follow yourhealthcare professional's instructions. 05/13/2021 18:18:55 Knee Immobilizer Knee Immobilizer A knee immobilizer is a type of brace used to provide support and limit movement of the knee. This will make you more comfortable as your injury heals. Home care The knee brace should be worn whenever you are out of bed, unless told otherwise. You may wear it in bed while asleep for the first few nights or until the pain starts to go away. Otherwise, you can remove the brace at night to avoid muscle stiffness from lack of joint movement. You can open the kivi-nau-pljg brace to dress, bathe, and apply ice or heat packs as directed. Call 911 Call 911 if you have: Shortness of breath Chest pain When to seek medical advice Call your healthcare provider right away if any of these occur: Worsening pain in the knee Weakness, numbness, or tingling in the foot Increased swelling, redness or warmth of the knee joint [id number] [employer]. [address] [place] [address]. All rights reserved. This information is not intended as a substitute for professional medical care. Always follow yourhealthcare professional's instructions. 05/13/2021 18:18:39 R.I.C.E. RICE RICE stands for rest, ice, compression, and elevation. Doing these things helps limit pain and swelling after an injury. RICE also helps injuries heal faster. Use RICE for sprains, strains, and severe bruises or bumps. Follow the tips on this handout and begin RICE as soon as possible after an injury. Rest Pain is your body s way of telling you to rest an injured area. Whether you have hurt an elbow, hand, foot, or knee, limiting its use will prevent further injury and help you heal. Ice Applying ice right after an injury helps prevent swelling and reduce pain. Don t place ice directlyon your skin. Wrap a cold pack or bag of ice in a thin cloth. Place it over the injured area. Ice for 10 minutes every 3 hours. Don t ice for more than 20 minutes at a time. Compression Putting pressure (compression) on an injury helps prevent swelling and provides support. Wrap the injured area firmly with an elastic bandage. If your hand or foot tingles, becomes discolored, or feels cold to the touch, the bandage may be too tight. Rewrap it more loosely. If your bandage becomes too loose, rewrap it. Do not wear an elastic bandage overnight. Elevation Keeping an injury elevated helps reduce swelling, pain, and throbbing. Elevation is most effective when the injury is kept elevated higher than the heart. Call your healthcare provider if you notice any of the following: Fingers or toes feel numb, are cold to the touch, or change color. Skin looks shiny or tight. Pain, swelling, or bruising worsens and is not improved with elevation. [id number] [employer]. [address] [place] [address]. All rights reserved. This information is not intended as a substitute for professional medical care. Always follow yourhealthcare professional's instructions. 05/13/2021 18:18:37 Osteoarthritis: Coping with Pain Osteoarthritis: Coping with Pain There are many ways to control your pain. You re making a good start by learning about osteoarthritis and its treatments. Knowing more about this condition helps you work with your healthcare provider to find answers to problems. Keeping a positive outlook can help you manage pain from day to day. And making time each day to relax and enjoy yourself may help you control osteoarthritis pain, instead of letting it control you. Try these methods to help you cope with, and even reduce, your pain. Take control Relaxing may help relieve muscle aches that result from joint pain. To relax, try these techniques: Breathe slowly and calmly and think of a peaceful scene. Meditate by focusing your mind on one word, object, or idea. Getting plenty of sleep can help reduce pain and let you function better. If pain is making it hardfor you to sleep, ask your healthcare provider about ways to control pain and ensure a good night ssleep. Cutting back on caffeine and alcohol can help you sleep better. So can going to bed and getting up at about the same time every day. Use distraction Getting your mind off the pain may seem hard to do. But it can actually help reduce pain. When you are in pain, try one of these ways of distracting yourself: Watch a funny movie with a friend. Listen to music you enjoy. Read a novel. Talk with friends or family. Go to a museum, park, or other favorite attraction. Arrange to do a regular activity, such as volunteer work. Heat and cold Using heat and cold treatments are simple ways to lessen arthritis symptoms: Heat soothes stiff joints and tired muscles. Heat works well before exercise, for example. Heat treatments include: oA warm shower or bath, or soak (for example, fill the sink with warm water and move your fingers, hands, and wrists around in the water) oA moist heating pad oA warm, moist wash cloth oAn electric blanket or throw Cold treatments help to numb painful areas and decrease swelling. Cold treatments include the following wrapped in a thin towel: oAn ice pack or bag of ice. To make an ice pack, put ice cubes in a plastic bag that seals at the top. oA gel-filled cold pack Be careful when using heat or cold. You can injure your skin. Each treatment should only last for 10 to 20 minutes. Your healthcare provider or therapist can give you specific instructions. Acupuncture Acupuncture is a [id number] practice. Providers insert thin needles in specific parts of the body. Research shows that it can help to relieve the pain of arthritis. For more information or to find a provider in your area, contact the [place] [employer]. Its website is: www.medicalacupuncture.org/. Massage Therapeutic massage has many benefits. It may: Help you and your muscles relax Improve blood flow to muscles and joints Help joints stay more flexible Look for a certified massage therapist. Many are trained to treat sore muscles and joint pain and stiffness. Vitamins, supplements, and herbs People with arthritis, or other long-term conditions that cause pain, often look for alternative ways to lessen pain. Vitamins, supplements, and herbs may or may not help you to feel better. Before you try any vitamin, supplement, or herb, make sure you ask your healthcare provider or pharmacist. Physical therapy and occupational therapy Evaluation by a physical therapist and or occupational therapist for assessment for limitations in activities of daily living Help with developing an appropriate exercise routine for both muscle strengthening and cardiovascular health Weight management Studies have shown that weight loss in overweight people can improve osteoarthritis symptoms. Talk with your healthcare provider about your optimal ideal weight and weight management methods ifneeded. Psychological treatments Research shows that many psychological therapies or those that deal with thinking and emotions, help people cope with arthritis pain. Therapies include cognitive behavioral therapy (CBT), pain copingskills training, biofeedback, stress management, and hypnosis. Ask your healthcare provider for more information about these therapies. For more information about many of these methods, contact the National [facility] for Complementary andAlternative Medicine ([facility]) at https://[facility].nih.gov. [employer]. [address] [place] [address]. All rights reserved. This information is not intended as a substitute for professional medical care. Always follow yourhealthcare professional's instructions. 05/13/2021 18:18:35 Common Kneecap (Patella) Problems Common Kneecap (Patella) Problems If the kneecap is off track even slightly (a tracking problem), it can cause uneven pressure on theback of the kneecap. This can cause pain and difficulty with movements, such as walking and going down stairs. Below are some common causes of kneecap pain. Cartilage damage Sometimes the cartilage on the back of the kneecap or in the groove of the thighbone is damaged. Damaged cartilage can t spread pressure evenly. Uneven pressure wears down the cartilage even further. Dislocation Sometimes a muscle or ligament in the knee is pulled the wrong way. Or the kneecap may be pushed too hard. Then the kneecap may move partly out of the groove (subluxation). It may even move completely out (dislocation). Patellar tendinitis Patellar tendinitis ( jumper s knee ) happens when the quadriceps muscles are overused or tight. During movement, the patellar tendon absorbs more shock than usual. The tendon becomes irritated or damaged. Plica syndrome Plica bands are tissue fibers that some people have near the kneecap. They usually cause no problems. But sometimes they can become irritated or inflamed. [employer]. [address] [place] [address]. All rights reserved. This information is not intended as a substitute for professional medical care. Always follow yourhealthcare professional's instructions. 05/13/2021 18:18:33 Bursitis Bursitis You have bursitis. This is an inflammation of the bursa. These are small, fluid- filled sacs that surround the larger joints of the body. The bursa help the muscles and tendons move smoothly over the joints. Bursitis often happens in the shoulder. But it can also affect the elbows, hips, pelvis, knees, toes, and heels. Bursitis can be caused by injury, overuse of the joint, or infection of the bursa. Symptoms include pain and tenderness over a joint. Symptoms get worse with movement. Bursitis is treated with an anti-inflammatory medicine and by resting the joint. More severe cases require injection of medicine directly into the bursa. In the case of infection, surgery and antibiotics may be needed. Home care Rest the painful joint and protect it from movement. This will allow the inflammation to heal faster. Apply an ice pack over the injured area for no more than 15 to 20 minutes. Do this every 3 to 6 hours for the first 24 to 48 hours. Keep using ice packs 3 to 4 times a day until the pain and swellingimproves. To make an ice pack, put ice cubes in a sealed plastic bag. Wrap the bag in a clean, thin towel or cloth. Never put ice or an ice pack directly on the skin. As the ice melts, be careful to not to getthe wrap or splint wet. You may take wazl-lyh-tnkrebl pain medicine to treat pain and inflammation, unless another medicinewas prescribed. Anti-inflammatory pain medicines may be more effective. Talk with your provider before using these medicines if you have chronic liver or kidney disease, or ever had a stomach ulcer or gastrointestinal bleeding. As your symptoms improve, slowly begin to move the joint. Don't overuse the joint. This may cause the symptoms to flare up again. When to seek medical advice Call your healthcare provider right away if any of these occur: Redness or warmth over the painful area Increasing pain or swelling at the joint Fever of 100.4 F (38 C) or above lasting for 24 to 48 hours, or as advised [place] [id number] [employer]. [address] [place] [address]. All rights reserved. This information is not intended as a substitute for professional medical care. Always follow yourhealthcare professional's instructions. Follow Up Care 05/13/2021 15:57:13 With:Orthopedics Address: When:05/18/2021 18:33:00 Comments:Follow up with orthopedics on your scheduled day With:MELYSSA MOBLEY MD Address: [address] [place] [address]- When:5 to 7 days [facility] Evaluation + Plan note No data available for this section [facility] Evaluation note* Diagnosis Gastroesophageal reflux disease without esophagitis Esophageal reflux Depression with anxiety Dysthymic disorder Essential hypertension Unspecified essential hypertension Hyperlipidemia, unspecified hyperlipidemia type Type 2 diabetes mellitus with diabetic nephropathy, with long-term current use of insulin ([facility]) Restless legs Restless legs syndrome (RLS) documented in this encounter [facility] note* Diagnosis Thrombocytosis- Primary Essential thrombocythemia Moderate smoker (20 or less per day) Tobacco use disorder documented in this encounter [facility] note* Diagnosis Onset Date Resolution Status Effusion, left knee acute Posterior left knee pain acu te Posterior left knee pain acu te Synovial cyst of popliteal space [Means], left knee acute Effusion, left knee acute [facility] Work Phone: evaluation note* Diagnosis Onset Date Resolution Status Effusion, left knee acute Posterior left knee pain acu te Posterior left knee pain acu te Synovial cyst of popliteal space [Means], left knee acute Effusion, left knee acute Effusion, left knee acute [facility] Work Phone: Evaluyutqn note* Diagnosis Type 2 diabetes mellitus with diabetic nephropathy, unspecified whether financial services officer insulin use (HCC)- Primary Tobacco abuse Tobacco use disorder documented in this encounter [facility] note* Diagnosis Type 2 diabetes mellitus with diabetic nephropathy, 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 Hyperlipidemia, unspecified hyperlipidemia type Essential hypertension Unspecified essential hypertension Fibromyalgia syndrome Mylagia and myositis, unspecified Special screening examination for viral disease Special screening examination for unspecified viral disease Screening for HIV (human immunodeficiency virus) Special screening examination for other specified viral diseases documented in this encounter [facility] note* Diagnosis Type 2 diabetes mellitus with diabetic nephropathy, 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 Multiple joint pain Pain in joint, multiple sites Encounter for immunization Need for other specified prophylactic vaccination against single bacterial disease documented in this encounter [facility] note* Diagnosis Hypercalcemia- Primary Hypertriglyceridemia Pure hyperglyceridemia documented in this encounter [facility] note* Diagnosis Type 2 diabetes mellitus with diabetic nephropathy, 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 Essential hypertension Unspecified essential hypertension Multiple joint pain Pain in joint, multiple sites Dry skin Other specified disease of sebaceous glands Poorly controlled type 2 diabetes mellitus (HCC)- Primary Type II or unspecified type diabetes mellitus without mention of complication, not stated as uncontrolled documented in this encounter [facility] note* Diagnosis Poorly controlled type 2 diabetes mellitus (HCC)- Primary Type II or unspecified type diabetes mellitus without mention of complication, not stated as uncontrolled Type 2 diabetes mellitus with diabetic nephropathy, with long-term current use of insulin (HCC) documented in this encounter [facility] note* Diagnosis 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), managed as type 1 (HCC)- Primary Type II or unspecified type diabetes mellitus without mention of complication, not stated as uncontrolled documented in this encounter [facility] note* Diagnosis 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), managed as type 1 (HCC)- Primary Type II or unspecified type diabetes mellitus without mention of complication, not stated as uncontrolled documented in this encounter [facility] note* Diagnosis Gastroesophageal reflux disease without esophagitis Esophageal reflux documented in this encounter [facility] noteNo assessment information [facility]WK[facility] Work [facility]: [facility] note* Diagnosis Breast infection- Primary Inflammatory disease of breast documented in this encounter [facility] note* Diagnosis Depression with anxiety Dysthymic disorder Essential hypertension Unspecified essential hypertension Hyperlipidemia, unspecified hyperlipidemia type Type 2 diabetes mellitus with diabetic nephropathy, with long-term current use of insulin (HCC) Restless legs Restless legs syndrome (RLS) documented in this encounter [facility] note* Diagnosis Insomnia, unspecified type- Primary RLS (restless legs syndrome) Restless legs syndrome (RLS) Type 2 diabetes mellitus with diabetic nephropathy, with long-term current use of insulin (HCC) Essential hypertension Unspecified essential hypertension Cutaneous abscess, unspecified site Numbness and tingling in right hand Disturbance of skin sensation documented in this encounter [facility] note* Diagnosis Inflammatory arthritis Unspecified inflammatory polyarthropathy Elevated C-reactive protein (CRP) documented in this encounter [facility] note* Diagnosis Inflammatory arthritis Unspecified inflammatory polyarthropathy Elevated C-reactive protein (CRP) Blood tests prior to treatment or procedure Pre-procedural laboratory examination Raynaud's disease without gangrene Special screening examination for viral disease Special screening examination for unspecified viral disease Ankylosing spondylitis, unspecified site of spine (HCC) documented in this encounter [facility] note* Diagnosis 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) (HCC) documented in this encounter [facility] note* Diagnosis 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) (HCC)- Primary High risk medication use Multiple joint pain Pain in joint, multiple sites Special screening examination for viral disease Special screening examination for unspecified viral disease Blood tests prior to treatment or procedure Pre-procedural laboratory examination documented in this encounter [facility] note* Diagnosis Type 2 diabetes mellitus with diabetic nephropathy, 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 [facility]* Diagnosis Type 2 diabetes mellitus with diabetic nephropathy, with long-term current use of insulin (HCC) documented in this encounter [facility] note* Diagnosis RLS (restless legs syndrome)- Primary Restless legs syndrome (RLS) Epigastric pain Abdominal pain, epigastric Nausea and vomiting, unspecified vomiting type Leukocytosis, unspecified type Gastroesophageal reflux disease without esophagitis Esophageal reflux Type 2 diabetes mellitus with diabetic nephropathy, with long-term current use of insulin (HCC) documented in this encounter [facility] note* Diagnosis Type 2 diabetes mellitus with diabetic nephropathy, 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 [facility]* Diagnosis Epigastric pain- Primary Abdominal pain, epigastric Nausea and vomiting, unspecified vomiting type Low blood sugar Hypoglycemia, unspecified [facility]* Diagnosis 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) (HCC) documented in this encounter [facility] note* Diagnosis Type 2 diabetes mellitus with diabetic nephropathy, with long-term current use of insulin (HCC) documented in this encounter [facility] note* Diagnosis Type 2 diabetes mellitus with diabetic nephropathy, 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 Essential hypertension Unspecified essential hypertension Acute cough Wheezing Medication management Encounter for long-term (current) use of other medications Left ear pain Otalgia, unspecified Effusion, left knee documented in this encounter [facility] note* Diagnosis Hypercalcemia- Primary documented in this encounter [facility] note* Diagnosis Gastroesophageal reflux disease without esophagitis Esophageal reflux documented in this encounter [facility] note* Diagnosis Type 2 diabetes mellitus with diabetic nephropathy, unspecified whether prison insulin use (HCC) documented in this encounter [facility] note* Diagnosis 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) (HCC) documented in this encounter [facility] note* Diagnosis 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) (HCC)- Primary High risk medication use documented in this encounter [facility] note* Diagnosis Encounter for screening mammogram for breast cancer documented in this encounter [facility] note* Diagnosis Restless legs Restless legs syndrome (RLS) documented in this encounter [facility] note* Diagnosis Acute otitis media, unspecified otitis media type- Primary Acute non-recurrent sinusitis, unspecified location Positive FIT (fecal immunochemical test) Nonspecific abnormal finding in stool contents Depression with anxiety Dysthymic disorder Insomnia, unspecified type documented in this encounter [facility] note* Diagnosis 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) (HCC) documented in this encounter [facility] note* Diagnosis Type 2 diabetes mellitus with diabetic nephropathy, with long-term current use of insulin ([facility]) documented in this encounter [facility] note* Diagnosis Class 1 obesity with serious comorbidity and body mass index (BMI) of 31.0 to 31.9 in adult, unspecified obesity type- Primary Type 2 diabetes mellitus with diabetic nephropathy, with long-term current use of insulin (FORM[facility]LY [facility]) documented in this encounter [facility] note* Diagnosis Restless legs Restless legs syndrome (RLS) documented in this encounter [facility] note* Diagnosis RLS (restless legs syndrome) Restless legs syndrome (RLS) documented in this encounter [facility] note* Diagnosis 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) (HCC) On methotrexate therapy documented in this encounter [facility] note* Diagnosis 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) (HCC) documented in this encounter [facility] note* Diagnosis Abcess of tongue- Primary Skin infection Unspecified local infection of skin and subcutaneous tissue Cyst of skin Sebaceous cyst [facility]* Diagnosis 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) (HCC)- Primary Long-term use of high-risk medication documented in this encounter [facility] note* Diagnosis Depression with anxiety Dysthymic disorder documented in this encounter [facility] note* Diagnosis Type 2 diabetes mellitus with diabetic nephropathy, with long-term current use of insulin ([facility])- Primary documented in this encounter [facility] note* Diagnosis 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) (HCC) documented in this encounter [facility] note* Diagnosis Type 2 diabetes mellitus with diabetic nephropathy, with long-term current use of insulin ([facility])- Primary Essential hypertension Unspecified essential hypertension Hyperlipidemia, unspecified hyperlipidemia type documented in this encounter [facility] note* Diagnosis Essential hypertension- Primary Unspecified essential hypertension 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) Type II or unspecified type diabetes mellitus with ophthalmic manifestations, not stated as uncontrolled Gastroesophageal reflux disease without esophagitis Esophageal reflux Multiple allergies Other allergy, other than to medicinal agents Anxiety and depression Dysthymic disorder Hyperlipidemia Other and unspecified hyperlipidemia Tobacco abuse Tobacco use disorder Fibromyalgia syndrome Mylagia and myositis, unspecified 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 Type II or unspecified type diabetes mellitus with renal manifestations, not stated as uncontrolled Hypertriglyceridemia Pure hyperglyceridemia Tendinitis of thumb Other tenosynovitis of hand and wrist Essential hypertension Unspecified essential hypertension Hyperlipidemia Other and unspecified hyperlipidemia Anxiety and depression Dysthymic disorder History of environmental allergies Other allergy, other than to medicinal agents Tobacco abuse Tobacco use disorder 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 Type II or unspecified type diabetes mellitus with ophthalmic manifestations, not stated as uncontrolled Type 2 diabetes mellitus with diabetic nephropathy (HCC) Type II or unspecified type diabetes mellitus with renal manifestations, not stated as uncontrolled Tobacco abuse Tobacco use disorder PVD (peripheral vascular disease) (HCC) Peripheral vascular disease, unspecified Breast cancer screening, high risk patient Screening mammogram for high-risk patient Routine health maintenance Routine general medical examination at a health care facility Pain of left lower extremity [M79.605] Need for prophylactic vaccination against Streptococcus pneumoniae (pneumococcus) Need for prophylactic vaccination against streptococcus pneumoniae (pneumococcus) 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 Type II or unspecified type diabetes mellitus with renal manifestations, not stated as uncontrolled Raynaud's disease without gangrene Encounter for screening mammogram for malignant neoplasm of breast Other screening mammogram Tobacco abuse Tobacco use disorder Essential hypertension Unspecified essential hypertension Anxiety and depression Dysthymic disorder 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 Type II or unspecified type diabetes mellitus with renal manifestations, not stated as uncontrolled Tendinitis of thumb Other tenosynovitis of hand and wrist Essential hypertension with goal blood pressure less than 140/90 Pain in right hip Pain in joint, pelvic region and thigh Ingrown nail of fifth toe of left foot Type 2 diabetes mellitus with diabetic nephropathy, without long-term current use of insulin (HCC)- Primary Anxiety and depression Dysthymic disorder Hyperlipidemia, unspecified hyperlipidemia type Essential hypertension Unspecified essential hypertension Encounter for screening mammogram for high-risk patient Tobacco abuse Tobacco use disorder Acute cough Wheezing [facility] Diagnosis Essential hypertension- Primary Unspecified essential hypertension 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) Type II or unspecified type diabetes mellitus with ophthalmic manifestations, not stated as uncontrolled Gastroesophageal reflux disease without esophagitis Esophageal reflux Multiple allergies Other allergy, other than to medicinal agents Anxiety and depression Dysthymic disorder Hyperlipidemia Other and unspecified hyperlipidemia Tobacco abuse Tobacco use disorder Fibromyalgia syndrome Mylagia and myositis, unspecified 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 Type II or unspecified type diabetes mellitus with renal manifestations, not stated as uncontrolled Hypertriglyceridemia Pure hyperglyceridemia Tendinitis of thumb Other tenosynovitis of hand and wrist Essential hypertension Unspecified essential hypertension Hyperlipidemia Other and unspecified hyperlipidemia Anxiety and depression Dysthymic disorder History of environmental allergies Other allergy, other than to medicinal agents Tobacco abuse Tobacco use disorder 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 Type II or unspecified type diabetes mellitus with ophthalmic manifestations, not stated as uncontrolled Type 2 diabetes mellitus with diabetic nephropathy (HCC) Type II or unspecified type diabetes mellitus with renal manifestations, not stated as uncontrolled Tobacco abuse Tobacco use disorder PVD (peripheral vascular disease) (HCC) Peripheral vascular disease, unspecified Breast cancer screening, high risk patient Screening mammogram for high-risk patient Routine health maintenance Routine general medical examination at a health care facility Pain of left lower extremity [M79.605] Need for prophylactic vaccination against Streptococcus pneumoniae (pneumococcus) Need for prophylactic vaccination against streptococcus pneumoniae (pneumococcus) 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 Type II or unspecified type diabetes mellitus with renal manifestations, not stated as uncontrolled Raynaud's disease without gangrene Encounter for screening mammogram for malignant neoplasm of breast Other screening mammogram Tobacco abuse Tobacco use disorder Essential hypertension Unspecified essential hypertension Anxiety and depression Dysthymic disorder 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 Type II or unspecified type diabetes mellitus with renal manifestations, not stated as uncontrolled Tendinitis of thumb Other tenosynovitis of hand and wrist Essential hypertension with goal blood pressure less than 140/90 Pain in right hip Pain in joint, pelvic region and thigh Ingrown nail of fifth toe of left foot Type 2 diabetes mellitus with diabetic nephropathy, without long-term current use of insulin (HCC)- Primary Anxiety and depression Dysthymic disorder Hyperlipidemia, unspecified hyperlipidemia type Essential hypertension Unspecified essential hypertension Encounter for screening mammogram for high-risk patient Tobacco abuse Tobacco use disorder Palpitations- Primary Shortness of breath Pre-syncope Syncope and collapse MVP (mitral valve prolapse) Mitral valve disorders Type 2 diabetes mellitus with diabetic nephropathy, with long-term current use of insulin (HCC) [facility] Diagnosis Essential hypertension- Primary Unspecified essential hypertension 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) Type II or unspecified type diabetes mellitus with ophthalmic manifestations, not stated as uncontrolled Gastroesophageal reflux disease without esophagitis Esophageal reflux Multiple allergies Other allergy, other than to medicinal agents Anxiety and depression Dysthymic disorder Hyperlipidemia Other and unspecified hyperlipidemia Tobacco abuse Tobacco use disorder Fibromyalgia syndrome Mylagia and myositis, unspecified 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 Type II or unspecified type diabetes mellitus with renal manifestations, not stated as uncontrolled Hypertriglyceridemia Pure hyperglyceridemia Tendinitis of thumb Other tenosynovitis of hand and wrist Essential hypertension Unspecified essential hypertension Hyperlipidemia Other and unspecified hyperlipidemia Anxiety and depression Dysthymic disorder History of environmental allergies Other allergy, other than to medicinal agents Tobacco abuse Tobacco use disorder 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 Type II or unspecified type diabetes mellitus with ophthalmic manifestations, not stated as uncontrolled Type 2 diabetes mellitus with diabetic nephropathy (HCC) Type II or unspecified type diabetes mellitus with renal manifestations, not stated as uncontrolled Tobacco abuse Tobacco use disorder PVD (peripheral vascular disease) (HCC) Peripheral vascular disease, unspecified Breast cancer screening, high risk patient Screening mammogram for high-risk patient Routine health maintenance Routine general medical examination at a health care facility Pain of left lower extremity [M79.605] Need for prophylactic vaccination against Streptococcus pneumoniae (pneumococcus) Need for prophylactic vaccination against streptococcus pneumoniae (pneumococcus) 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 Type II or unspecified type diabetes mellitus with renal manifestations, not stated as uncontrolled Raynaud's disease without gangrene Encounter for screening mammogram for malignant neoplasm of breast Other screening mammogram Tobacco abuse Tobacco use disorder Essential hypertension Unspecified essential hypertension Anxiety and depression Dysthymic disorder 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 Type II or unspecified type diabetes mellitus with renal manifestations, not stated as uncontrolled Tendinitis of thumb Other tenosynovitis of hand and wrist Essential hypertension with goal blood pressure less than 140/90 Pain in right hip Pain in joint, pelvic region and thigh Ingrown nail of fifth toe of left foot Type 2 diabetes mellitus with diabetic nephropathy, without long-term current use of insulin ([facility])- Primary Anxiety and depression Dysthymic disorder Hyperlipidemia, unspecified hyperlipidemia type Essential hypertension Unspecified essential hypertension Encounter for screening mammogram for high-risk patient Tobacco abuse Tobacco use disorder Palpitations- Primary Pre-syncope Syncope and collapse 1st degree AV block First degree atrioventricular block SVT (supraventricular tachycardia) ([facility]) Other specified cardiac dysrhythmias [facility] Diagnosis Rheumatoid arthritis of 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 ([facility]/HCC) ([facility]) [facility]* Diagnosis Seronegative rheumatoid arthritis (CMS/HCC) ([facility])- Primary Rheumatoid arthritis Atrial fibrillation, unspecified type ([facility]) [facility]* Diagnosis Essential hypertension- Primary Unspecified essential hypertension Type 2 diabetes mellitus with mild nonproliferative diabetic retinopathy without macular edema ([facility]) Type II or unspecified type diabetes mellitus with ophthalmic manifestations, not stated as uncontrolled Gastroesophageal reflux disease without esophagitis Esophageal reflux Multiple allergies Other allergy, other than to medicinal agents Anxiety and depression Dysthymic disorder Hyperlipidemia Other and unspecified hyperlipidemia Tobacco abuse Tobacco use disorder Fibromyalgia syndrome Mylagia and myositis, unspecified 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 Type II or unspecified type diabetes mellitus with renal manifestations, not stated as uncontrolled Hypertriglyceridemia Pure hyperglyceridemia Tendinitis of thumb Other tenosynovitis of hand and wrist Essential hypertension Unspecified essential hypertension Hyperlipidemia Other and unspecified hyperlipidemia Anxiety and depression Dysthymic disorder History of environmental allergies Other allergy, other than to medicinal agents Tobacco abuse Tobacco use disorder 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 Type II or unspecified type diabetes mellitus with ophthalmic manifestations, not stated as uncontrolled Type 2 diabetes mellitus with diabetic nephropathy (HCC) Type II or unspecified type diabetes mellitus with renal manifestations, not stated as uncontrolled Tobacco abuse Tobacco use disorder PVD (peripheral vascular disease) (HCC) Peripheral vascular disease, unspecified Breast cancer screening, high risk patient Screening mammogram for high-risk patient Routine health maintenance Routine general medical examination at a health care facility Pain of left lower extremity [M79.605] Need for prophylactic vaccination against Streptococcus pneumoniae (pneumococcus) Need for prophylactic vaccination against streptococcus pneumoniae (pneumococcus) 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 Type II or unspecified type diabetes mellitus with renal manifestations, not stated as uncontrolled Raynaud's disease without gangrene Encounter for screening mammogram for malignant neoplasm of breast Other screening mammogram Tobacco abuse Tobacco use disorder Essential hypertension Unspecified essential hypertension Anxiety and depression Dysthymic disorder 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 Type II or unspecified type diabetes mellitus with renal manifestations, not stated as uncontrolled Tendinitis of thumb Other tenosynovitis of hand and wrist Essential hypertension with goal blood pressure less than 140/90 Pain in right hip Pain in joint, pelvic region and thigh Ingrown nail of fifth toe of left foot Type 2 diabetes mellitus with diabetic nephropathy, without long-term current use of insulin (HCC)- Primary Anxiety and depression Dysthymic disorder Hyperlipidemia, unspecified hyperlipidemia type Essential hypertension Unspecified essential hypertension Encounter for screening mammogram for high-risk patient Tobacco abuse Tobacco use disorder Type 2 diabetes mellitus with diabetic nephropathy, 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 Essential hypertension Unspecified essential hypertension Hyperlipidemia, unspecified hyperlipidemia type Palpitations [facility] Diagnosis Essential hypertension- Primary Unspecified essential hypertension 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) Type II or unspecified type diabetes mellitus with ophthalmic manifestations, not stated as uncontrolled Gastroesophageal reflux disease without esophagitis Esophageal reflux Multiple allergies Other allergy, other than to medicinal agents Anxiety and depression Dysthymic disorder Hyperlipidemia Other and unspecified hyperlipidemia Tobacco abuse Tobacco use disorder Fibromyalgia syndrome Mylagia and myositis, unspecified 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 Type II or unspecified type diabetes mellitus with renal manifestations, not stated as uncontrolled Hypertriglyceridemia Pure hyperglyceridemia Tendinitis of thumb Other tenosynovitis of hand and wrist Essential hypertension Unspecified essential hypertension Hyperlipidemia Other and unspecified hyperlipidemia Anxiety and depression Dysthymic disorder History of environmental allergies Other allergy, other than to medicinal agents Tobacco abuse Tobacco use disorder 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 Type II or unspecified type diabetes mellitus with ophthalmic manifestations, not stated as uncontrolled Type 2 diabetes mellitus with diabetic nephropathy (HCC) Type II or unspecified type diabetes mellitus with renal manifestations, not stated as uncontrolled Tobacco abuse Tobacco use disorder PVD (peripheral vascular disease) (HCC) Peripheral vascular disease, unspecified Breast cancer screening, high risk patient Screening mammogram for high-risk patient Routine health maintenance Routine general medical examination at a health care facility Pain of left lower extremity [M79.605] Need for prophylactic vaccination against Streptococcus pneumoniae (pneumococcus) Need for prophylactic vaccination against streptococcus pneumoniae (pneumococcus) 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 Type II or unspecified type diabetes mellitus with renal manifestations, not stated as uncontrolled Raynaud's disease without gangrene Encounter for screening mammogram for malignant neoplasm of breast Other screening mammogram Tobacco abuse Tobacco use disorder Essential hypertension Unspecified essential hypertension Anxiety and depression Dysthymic disorder 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 Type II or unspecified type diabetes mellitus with renal manifestations, not stated as uncontrolled Tendinitis of thumb Other tenosynovitis of hand and wrist Essential hypertension with goal blood pressure less than 140/90 Pain in right hip Pain in joint, pelvic region and thigh Ingrown nail of fifth toe of left foot Type 2 diabetes mellitus with diabetic nephropathy, without long-term current use of insulin (HCC)- Primary Anxiety and depression Dysthymic disorder Hyperlipidemia, unspecified hyperlipidemia type Essential hypertension Unspecified essential hypertension Encounter for screening mammogram for high-risk patient Tobacco abuse Tobacco use disorder 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), managed as type 2 (HCC)- Primary Type II or unspecified type diabetes mellitus without mention of complication, not stated as uncontrolled Type 2 diabetes mellitus with diabetic nephropathy, unspecified whether financial services officer insulin use (HCC) [facility] Diagnosis Essential hypertension- Primary Unspecified essential hypertension 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) Type II or unspecified type diabetes mellitus with ophthalmic manifestations, not stated as uncontrolled Gastroesophageal reflux disease without esophagitis Esophageal reflux Multiple allergies Other allergy, other than to medicinal agents Anxiety and depression Dysthymic disorder Hyperlipidemia Other and unspecified hyperlipidemia Tobacco abuse Tobacco use disorder Fibromyalgia syndrome Mylagia and myositis, unspecified 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 Type II or unspecified type diabetes mellitus with renal manifestations, not stated as uncontrolled Hypertriglyceridemia Pure hyperglyceridemia Tendinitis of thumb Other tenosynovitis of hand and wrist Essential hypertension Unspecified essential hypertension Hyperlipidemia Other and unspecified hyperlipidemia Anxiety and depression Dysthymic disorder History of environmental allergies Other allergy, other than to medicinal agents Tobacco abuse Tobacco use disorder 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 Type II or unspecified type diabetes mellitus with ophthalmic manifestations, not stated as uncontrolled Type 2 diabetes mellitus with diabetic nephropathy (HCC) Type II or unspecified type diabetes mellitus with renal manifestations, not stated as uncontrolled Tobacco abuse Tobacco use disorder PVD (peripheral vascular disease) (HCC) Peripheral vascular disease, unspecified Breast cancer screening, high risk patient Screening mammogram for high-risk patient Routine health maintenance Routine general medical examination at a health care facility Pain of left lower extremity [M79.605] Need for prophylactic vaccination against Streptococcus pneumoniae (pneumococcus) Need for prophylactic vaccination against streptococcus pneumoniae (pneumococcus) 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 Type II or unspecified type diabetes mellitus with renal manifestations, not stated as uncontrolled Raynaud's disease without gangrene Encounter for screening mammogram for malignant neoplasm of breast Other screening mammogram Tobacco abuse Tobacco use disorder Essential hypertension Unspecified essential hypertension Anxiety and depression Dysthymic disorder 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 Type II or unspecified type diabetes mellitus with renal manifestations, not stated as uncontrolled Tendinitis of thumb Other tenosynovitis of hand and wrist Essential hypertension with goal blood pressure less than 140/90 Pain in right hip Pain in joint, pelvic region and thigh Ingrown nail of fifth toe of left foot Type 2 diabetes mellitus with diabetic nephropathy, without long-term current use of insulin (HCC)- Primary Anxiety and depression Dysthymic disorder Hyperlipidemia, unspecified hyperlipidemia type Essential hypertension Unspecified essential hypertension Encounter for screening mammogram for high-risk patient Tobacco abuse Tobacco use disorder Type 2 diabetes mellitus with diabetic nephropathy, with long-term current use of insulin (HCC) [facility]* Diagnosis Essential hypertension- Primary Unspecified essential hypertension 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) Type II or unspecified type diabetes mellitus with ophthalmic manifestations, not stated as uncontrolled Gastroesophageal reflux disease without esophagitis Esophageal reflux Multiple allergies Other allergy, other than to medicinal agents Anxiety and depression Dysthymic disorder Hyperlipidemia Other and unspecified hyperlipidemia Tobacco abuse Tobacco use disorder Fibromyalgia syndrome Mylagia and myositis, unspecified 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 Type II or unspecified type diabetes mellitus with renal manifestations, not stated as uncontrolled Hypertriglyceridemia Pure hyperglyceridemia Tendinitis of thumb Other tenosynovitis of hand and wrist Essential hypertension Unspecified essential hypertension Hyperlipidemia Other and unspecified hyperlipidemia Anxiety and depression Dysthymic disorder History of environmental allergies Other allergy, other than to medicinal agents Tobacco abuse Tobacco use disorder 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 Type II or unspecified type diabetes mellitus with ophthalmic manifestations, not stated as uncontrolled Type 2 diabetes mellitus with diabetic nephropathy (HCC) Type II or unspecified type diabetes mellitus with renal manifestations, not stated as uncontrolled Tobacco abuse Tobacco use disorder PVD (peripheral vascular disease) (HCC) Peripheral vascular disease, unspecified Breast cancer screening, high risk patient Screening mammogram for high-risk patient Routine health maintenance Routine general medical examination at a health care facility Pain of left lower extremity [M79.605] Need for prophylactic vaccination against Streptococcus pneumoniae (pneumococcus) Need for prophylactic vaccination against streptococcus pneumoniae (pneumococcus) 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 Type II or unspecified type diabetes mellitus with renal manifestations, not stated as uncontrolled Raynaud's disease without gangrene Encounter for screening mammogram for malignant neoplasm of breast Other screening mammogram Tobacco abuse Tobacco use disorder Essential hypertension Unspecified essential hypertension Anxiety and depression Dysthymic disorder 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 Type II or unspecified type diabetes mellitus with renal manifestations, not stated as uncontrolled Tendinitis of thumb Other tenosynovitis of hand and wrist Essential hypertension with goal blood pressure less than 140/90 Pain in right hip Pain in joint, pelvic region and thigh Ingrown nail of fifth toe of left foot Type 2 diabetes mellitus with diabetic nephropathy, without long-term current use of insulin (HCC)- Primary Anxiety and depression Dysthymic disorder Hyperlipidemia, unspecified hyperlipidemia type Essential hypertension Unspecified essential hypertension Encounter for screening mammogram for high-risk patient Tobacco abuse Tobacco use disorder Essential hypertension Unspecified essential hypertension Hyperlipidemia, unspecified hyperlipidemia type [facility] Diagnosis Inflammatory arthritis Unspecified inflammatory polyarthropathy Elevated C-reactive protein (CRP) [facility] Diagnosis Essential hypertension- Primary Unspecified essential hypertension 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) Type II or unspecified type diabetes mellitus with ophthalmic manifestations, not stated as uncontrolled Gastroesophageal reflux disease without esophagitis Esophageal reflux Multiple allergies Other allergy, other than to medicinal agents Anxiety and depression Dysthymic disorder Hyperlipidemia Other and unspecified hyperlipidemia Tobacco abuse Tobacco use disorder Fibromyalgia syndrome Mylagia and myositis, unspecified 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 Type II or unspecified type diabetes mellitus with renal manifestations, not stated as uncontrolled Hypertriglyceridemia Pure hyperglyceridemia Tendinitis of thumb Other tenosynovitis of hand and wrist Essential hypertension Unspecified essential hypertension Hyperlipidemia Other and unspecified hyperlipidemia Anxiety and depression Dysthymic disorder History of environmental allergies Other allergy, other than to medicinal agents Tobacco abuse Tobacco use disorder 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 Type II or unspecified type diabetes mellitus with ophthalmic manifestations, not stated as uncontrolled Type 2 diabetes mellitus with diabetic nephropathy (HCC) Type II or unspecified type diabetes mellitus with renal manifestations, not stated as uncontrolled Tobacco abuse Tobacco use disorder PVD (peripheral vascular disease) (HCC) Peripheral vascular disease, unspecified Breast cancer screening, high risk patient Screening mammogram for high-risk patient Routine health maintenance Routine general medical examination at a health care facility Pain of left lower extremity [M79.605] Need for prophylactic vaccination against Streptococcus pneumoniae (pneumococcus) Need for prophylactic vaccination against streptococcus pneumoniae (pneumococcus) 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 Type II or unspecified type diabetes mellitus with renal manifestations, not stated as uncontrolled Raynaud's disease without gangrene Encounter for screening mammogram for malignant neoplasm of breast Other screening mammogram Tobacco abuse Tobacco use disorder Essential hypertension Unspecified essential hypertension Anxiety and depression Dysthymic disorder 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 Type II or unspecified type diabetes mellitus with renal manifestations, not stated as uncontrolled Tendinitis of thumb Other tenosynovitis of hand and wrist Essential hypertension with goal blood pressure less than 140/90 Pain in right hip Pain in joint, pelvic region and thigh Ingrown nail of fifth toe of left foot Type 2 diabetes mellitus with diabetic nephropathy, without long-term current use of insulin (HCC)- Primary Anxiety and depression Dysthymic disorder Hyperlipidemia, unspecified hyperlipidemia type Essential hypertension Unspecified essential hypertension Encounter for screening mammogram for high-risk patient Tobacco abuse Tobacco use disorder Leukocytosis, unspecified type- Primary Hyperlipidemia, unspecified hyperlipidemia type [facility] Diagnosis Essential hypertension- Primary Unspecified essential hypertension 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) Type II or unspecified type diabetes mellitus with ophthalmic manifestations, not stated as uncontrolled Gastroesophageal reflux disease without esophagitis Esophageal reflux Multiple allergies Other allergy, other than to medicinal agents Anxiety and depression Dysthymic disorder Hyperlipidemia Other and unspecified hyperlipidemia Tobacco abuse Tobacco use disorder Fibromyalgia syndrome Mylagia and myositis, unspecified 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 Type II or unspecified type diabetes mellitus with renal manifestations, not stated as uncontrolled Hypertriglyceridemia Pure hyperglyceridemia Tendinitis of thumb Other tenosynovitis of hand and wrist Essential hypertension Unspecified essential hypertension Hyperlipidemia Other and unspecified hyperlipidemia Anxiety and depression Dysthymic disorder History of environmental allergies Other allergy, other than to medicinal agents Tobacco abuse Tobacco use disorder 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 Type II or unspecified type diabetes mellitus with ophthalmic manifestations, not stated as uncontrolled Type 2 diabetes mellitus with diabetic nephropathy (HCC) Type II or unspecified type diabetes mellitus with renal manifestations, not stated as uncontrolled Tobacco abuse Tobacco use disorder PVD (peripheral vascular disease) (HCC) Peripheral vascular disease, unspecified Breast cancer screening, high risk patient Screening mammogram for high-risk patient Routine health maintenance Routine general medical examination at a health care facility Pain of left lower extremity [M79.605] Need for prophylactic vaccination against Streptococcus pneumoniae (pneumococcus) Need for prophylactic vaccination against streptococcus pneumoniae (pneumococcus) 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 Type II or unspecified type diabetes mellitus with renal manifestations, not stated as uncontrolled Raynaud's disease without gangrene Encounter for screening mammogram for malignant neoplasm of breast Other screening mammogram Tobacco abuse Tobacco use disorder Essential hypertension Unspecified essential hypertension Anxiety and depression Dysthymic disorder 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 Type II or unspecified type diabetes mellitus with renal manifestations, not stated as uncontrolled Tendinitis of thumb Other tenosynovitis of hand and wrist Essential hypertension with goal blood pressure less than 140/90 Pain in right hip Pain in joint, pelvic region and thigh Ingrown nail of fifth toe of left foot Type 2 diabetes mellitus with diabetic nephropathy, without long-term current use of insulin (HCC)- Primary Anxiety and depression Dysthymic disorder Hyperlipidemia, unspecified hyperlipidemia type Essential hypertension Unspecified essential hypertension Encounter for screening mammogram for high-risk patient Tobacco abuse Tobacco use disorder 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), managed as type 2 (HCC)- Primary Type II or unspecified type diabetes mellitus without mention of complication, not stated as uncontrolled [facility] Diagnosis Essential hypertension- Primary Unspecified essential hypertension 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) Type II or unspecified type diabetes mellitus with ophthalmic manifestations, not stated as uncontrolled Gastroesophageal reflux disease without esophagitis Esophageal reflux Multiple allergies Other allergy, other than to medicinal agents Anxiety and depression Dysthymic disorder Hyperlipidemia Other and unspecified hyperlipidemia Tobacco abuse Tobacco use disorder Fibromyalgia syndrome Mylagia and myositis, unspecified 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 Type II or unspecified type diabetes mellitus with renal manifestations, not stated as uncontrolled Hypertriglyceridemia Pure hyperglyceridemia Tendinitis of thumb Other tenosynovitis of hand and wrist Essential hypertension Unspecified essential hypertension Hyperlipidemia Other and unspecified hyperlipidemia Anxiety and depression Dysthymic disorder History of environmental allergies Other allergy, other than to medicinal agents Tobacco abuse Tobacco use disorder 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 Type II or unspecified type diabetes mellitus with ophthalmic manifestations, not stated as uncontrolled Type 2 diabetes mellitus with diabetic nephropathy (HCC) Type II or unspecified type diabetes mellitus with renal manifestations, not stated as uncontrolled Tobacco abuse Tobacco use disorder PVD (peripheral vascular disease) (HCC) Peripheral vascular disease, unspecified Breast cancer screening, high risk patient Screening mammogram for high-risk patient Routine health maintenance Routine general medical examination at a health care facility Pain of left lower extremity [M79.605] Need for prophylactic vaccination against Streptococcus pneumoniae (pneumococcus) Need for prophylactic vaccination against streptococcus pneumoniae (pneumococcus) 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 Type II or unspecified type diabetes mellitus with renal manifestations, not stated as uncontrolled Raynaud's disease without gangrene Encounter for screening mammogram for malignant neoplasm of breast Other screening mammogram Tobacco abuse Tobacco use disorder Essential hypertension Unspecified essential hypertension Anxiety and depression Dysthymic disorder 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 Type II or unspecified type diabetes mellitus with renal manifestations, not stated as uncontrolled Tendinitis of thumb Other tenosynovitis of hand and wrist Essential hypertension with goal blood pressure less than 140/90 Pain in right hip Pain in joint, pelvic region and thigh Ingrown nail of fifth toe of left foot Type 2 diabetes mellitus with diabetic nephropathy, without long-term current use of insulin (HCC)- Primary Anxiety and depression Dysthymic disorder Hyperlipidemia, unspecified hyperlipidemia type Essential hypertension Unspecified essential hypertension Encounter for screening mammogram for high-risk patient Tobacco abuse Tobacco use disorder Restless legs Restless legs syndrome (RLS) [facility] Diagnosis Essential hypertension- Primary Unspecified essential hypertension 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) Type II or unspecified type diabetes mellitus with ophthalmic manifestations, not stated as uncontrolled Gastroesophageal reflux disease without esophagitis Esophageal reflux Multiple allergies Other allergy, other than to medicinal agents Anxiety and depression Dysthymic disorder Hyperlipidemia Other and unspecified hyperlipidemia Tobacco abuse Tobacco use disorder Fibromyalgia syndrome Mylagia and myositis, unspecified 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 Type II or unspecified type diabetes mellitus with renal manifestations, not stated as uncontrolled Hypertriglyceridemia Pure hyperglyceridemia Tendinitis of thumb Other tenosynovitis of hand and wrist Essential hypertension Unspecified essential hypertension Hyperlipidemia Other and unspecified hyperlipidemia Anxiety and depression Dysthymic disorder History of environmental allergies Other allergy, other than to medicinal agents Tobacco abuse Tobacco use disorder 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 Type II or unspecified type diabetes mellitus with ophthalmic manifestations, not stated as uncontrolled Type 2 diabetes mellitus with diabetic nephropathy (HCC) Type II or unspecified type diabetes mellitus with renal manifestations, not stated as uncontrolled Tobacco abuse Tobacco use disorder PVD (peripheral vascular disease) (HCC) Peripheral vascular disease, unspecified Breast cancer screening, high risk patient Screening mammogram for high-risk patient Routine health maintenance Routine general medical examination at a health care facility Pain of left lower extremity [M79.605] Need for prophylactic vaccination against Streptococcus pneumoniae (pneumococcus) Need for prophylactic vaccination against streptococcus pneumoniae (pneumococcus) 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 Type II or unspecified type diabetes mellitus with renal manifestations, not stated as uncontrolled Raynaud's disease without gangrene Encounter for screening mammogram for malignant neoplasm of breast Other screening mammogram Tobacco abuse Tobacco use disorder Essential hypertension Unspecified essential hypertension Anxiety and depression Dysthymic disorder 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 Type II or unspecified type diabetes mellitus with renal manifestations, not stated as uncontrolled Tendinitis of thumb Other tenosynovitis of hand and wrist Essential hypertension with goal blood pressure less than 140/90 Pain in right hip Pain in joint, pelvic region and thigh Ingrown nail of fifth toe of left foot Type 2 diabetes mellitus with diabetic nephropathy, without long-term current use of insulin (HCC)- Primary Anxiety and depression Dysthymic disorder Hyperlipidemia, unspecified hyperlipidemia type Essential hypertension Unspecified essential hypertension Encounter for screening mammogram for high-risk patient Tobacco abuse Tobacco use disorder Chronic maxillary sinusitis- Primary Allergic rhinitis, unspecified seasonality, unspecified trigger Encounter for screening mammogram for breast cancer Fissure in skin of foot Other specified disorder of skin [facility] Diagnosis Essential hypertension- Primary Unspecified essential hypertension 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) Type II or unspecified type diabetes mellitus with ophthalmic manifestations, not stated as uncontrolled Gastroesophageal reflux disease without esophagitis Esophageal reflux Multiple allergies Other allergy, other than to medicinal agents Anxiety and depression Dysthymic disorder Hyperlipidemia Other and unspecified hyperlipidemia Tobacco abuse Tobacco use disorder Fibromyalgia syndrome Mylagia and myositis, unspecified 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 Type II or unspecified type diabetes mellitus with renal manifestations, not stated as uncontrolled Hypertriglyceridemia Pure hyperglyceridemia Tendinitis of thumb Other tenosynovitis of hand and wrist Essential hypertension Unspecified essential hypertension Hyperlipidemia Other and unspecified hyperlipidemia Anxiety and depression Dysthymic disorder History of environmental allergies Other allergy, other than to medicinal agents Tobacco abuse Tobacco use disorder 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 Type II or unspecified type diabetes mellitus with ophthalmic manifestations, not stated as uncontrolled Type 2 diabetes mellitus with diabetic nephropathy (HCC) Type II or unspecified type diabetes mellitus with renal manifestations, not stated as uncontrolled Tobacco abuse Tobacco use disorder PVD (peripheral vascular disease) (HCC) Peripheral vascular disease, unspecified Breast cancer screening, high risk patient Screening mammogram for high-risk patient Routine health maintenance Routine general medical examination at a health care facility Pain of left lower extremity [M79.605] Need for prophylactic vaccination against Streptococcus pneumoniae (pneumococcus) Need for prophylactic vaccination against streptococcus pneumoniae (pneumococcus) 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 Type II or unspecified type diabetes mellitus with renal manifestations, not stated as uncontrolled Raynaud's disease without gangrene Encounter for screening mammogram for malignant neoplasm of breast Other screening mammogram Tobacco abuse Tobacco use disorder Essential hypertension Unspecified essential hypertension Anxiety and depression Dysthymic disorder 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 Type II or unspecified type diabetes mellitus with renal manifestations, not stated as uncontrolled Tendinitis of thumb Other tenosynovitis of hand and wrist Essential hypertension with goal blood pressure less than 140/90 Pain in right hip Pain in joint, pelvic region and thigh Ingrown nail of fifth toe of left foot Type 2 diabetes mellitus with diabetic nephropathy, without long-term current use of insulin (HCC)- Primary Anxiety and depression Dysthymic disorder Hyperlipidemia, unspecified hyperlipidemia type Essential hypertension Unspecified essential hypertension Encounter for screening mammogram for high-risk patient Tobacco abuse Tobacco use disorder 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), managed as type 2 (HCC)- Primary Type II or unspecified type diabetes mellitus without mention of complication, not stated as uncontrolled [facility] Diagnosis Essential hypertension- Primary Unspecified essential hypertension 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) Type II or unspecified type diabetes mellitus with ophthalmic manifestations, not stated as uncontrolled Gastroesophageal reflux disease without esophagitis Esophageal reflux Multiple allergies Other allergy, other than to medicinal agents Anxiety and depression Dysthymic disorder Hyperlipidemia Other and unspecified hyperlipidemia Tobacco abuse Tobacco use disorder Fibromyalgia syndrome Mylagia and myositis, unspecified 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 Type II or unspecified type diabetes mellitus with renal manifestations, not stated as uncontrolled Hypertriglyceridemia Pure hyperglyceridemia Tendinitis of thumb Other tenosynovitis of hand and wrist Essential hypertension Unspecified essential hypertension Hyperlipidemia Other and unspecified hyperlipidemia Anxiety and depression Dysthymic disorder History of environmental allergies Other allergy, other than to medicinal agents Tobacco abuse Tobacco use disorder 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 Type II or unspecified type diabetes mellitus with ophthalmic manifestations, not stated as uncontrolled Type 2 diabetes mellitus with diabetic nephropathy (HCC) Type II or unspecified type diabetes mellitus with renal manifestations, not stated as uncontrolled Tobacco abuse Tobacco use disorder PVD (peripheral vascular disease) (HCC) Peripheral vascular disease, unspecified Breast cancer screening, high risk patient Screening mammogram for high-risk patient Routine health maintenance Routine general medical examination at a health care facility Pain of left lower extremity [M79.605] Need for prophylactic vaccination against Streptococcus pneumoniae (pneumococcus) Need for prophylactic vaccination against streptococcus pneumoniae (pneumococcus) 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 Type II or unspecified type diabetes mellitus with renal manifestations, not stated as uncontrolled Raynaud's disease without gangrene Encounter for screening mammogram for malignant neoplasm of breast Other screening mammogram Tobacco abuse Tobacco use disorder Essential hypertension Unspecified essential hypertension Anxiety and depression Dysthymic disorder 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 Type II or unspecified type diabetes mellitus with renal manifestations, not stated as uncontrolled Tendinitis of thumb Other tenosynovitis of hand and wrist Essential hypertension with goal blood pressure less than 140/90 Pain in right hip Pain in joint, pelvic region and thigh Ingrown nail of fifth toe of left foot Type 2 diabetes mellitus with diabetic nephropathy, without long-term current use of insulin (HCC)- Primary Anxiety and depression Dysthymic disorder Hyperlipidemia, unspecified hyperlipidemia type Essential hypertension Unspecified essential hypertension Encounter for screening mammogram for high-risk patient Tobacco abuse Tobacco use disorder RLS (restless legs syndrome) Restless legs syndrome (RLS) [facility] Diagnosis Seronegative rheumatoid arthritis (CMS/HCC) (HCC)- Primary Rheumatoid arthritis 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) (HCC) [facility] On methot[facility]ate therapy [facility] Diagnosis Essential hypertension- Primary Unspecified essential hypertension 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) Type II or unspecified type diabetes mellitus with ophthalmic manifestations, not stated as uncontrolled Gastroesophageal reflux disease without esophagitis Esophageal reflux Multiple allergies Other allergy, other than to medicinal agents Anxiety and depression Dysthymic disorder Hyperlipidemia Other and unspecified hyperlipidemia Tobacco abuse Tobacco use disorder Fibromyalgia syndrome Mylagia and myositis, unspecified 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 Type II or unspecified type diabetes mellitus with renal manifestations, not stated as uncontrolled Hypertriglyceridemia Pure hyperglyceridemia Tendinitis of thumb Other tenosynovitis of hand and wrist Essential hypertension Unspecified essential hypertension Hyperlipidemia Other and unspecified hyperlipidemia Anxiety and depression Dysthymic disorder History of environmental allergies Other allergy, other than to medicinal agents Tobacco abuse Tobacco use disorder 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 Type II or unspecified type diabetes mellitus with ophthalmic manifestations, not stated as uncontrolled Type 2 diabetes mellitus with diabetic nephropathy (HCC) Type II or unspecified type diabetes mellitus with renal manifestations, not stated as uncontrolled Tobacco abuse Tobacco use disorder PVD (peripheral vascular disease) Peripheral vascular disease, unspecified Breast cancer screening, high risk patient Screening mammogram for high-risk patient Routine health maintenance Routine general medical examination at a health care facility Pain of left lower extremity [M79.605] Need for prophylactic vaccination against Streptococcus pneumoniae (pneumococcus) Need for prophylactic vaccination against streptococcus pneumoniae (pneumococcus) 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 Type II or unspecified type diabetes mellitus with renal manifestations, not stated as uncontrolled Raynaud's disease without gangrene Encounter for screening mammogram for malignant neoplasm of breast Other screening mammogram Tobacco abuse Tobacco use disorder Essential hypertension Unspecified essential hypertension Anxiety and depression Dysthymic disorder 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 Type II or unspecified type diabetes mellitus with renal manifestations, not stated as uncontrolled Tendinitis of thumb Other tenosynovitis of hand and wrist Essential hypertension with goal blood pressure less than 140/90 Pain in right hip Pain in joint, pelvic region and thigh Ingrown nail of fifth toe of left foot Type 2 diabetes mellitus with diabetic nephropathy, without long-term current use of insulin (HCC)- Primary Anxiety and depression Dysthymic disorder Hyperlipidemia, unspecified hyperlipidemia type Essential hypertension Unspecified essential hypertension Encounter for screening mammogram for high-risk patient Tobacco abuse Tobacco use disorder Type 2 diabetes mellitus with diabetic nephropathy, 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 [facility] Diagnosis Essential hypertension- Primary Unspecified essential hypertension 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) Type II or unspecified type diabetes mellitus with ophthalmic manifestations, not stated as uncontrolled Gastroesophageal reflux disease without esophagitis Esophageal reflux Multiple allergies Other allergy, other than to medicinal agents Anxiety and depression Dysthymic disorder Hyperlipidemia Other and unspecified hyperlipidemia Tobacco abuse Tobacco use disorder Fibromyalgia syndrome Mylagia and myositis, unspecified 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 Type II or unspecified type diabetes mellitus with renal manifestations, not stated as uncontrolled Hypertriglyceridemia Pure hyperglyceridemia Tendinitis of thumb Other tenosynovitis of hand and wrist Essential hypertension Unspecified essential hypertension Hyperlipidemia Other and unspecified hyperlipidemia Anxiety and depression Dysthymic disorder History of environmental allergies Other allergy, other than to medicinal agents Tobacco abuse Tobacco use disorder 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 Type II or unspecified type diabetes mellitus with ophthalmic manifestations, not stated as uncontrolled Type 2 diabetes mellitus with diabetic nephropathy (HCC) Type II or unspecified type diabetes mellitus with renal manifestations, not stated as uncontrolled Tobacco abuse Tobacco use disorder PVD (peripheral vascular disease) Peripheral vascular disease, unspecified Breast cancer screening, high risk patient Screening mammogram for high-risk patient Routine health maintenance Routine general medical examination at a health care facility Pain of left lower extremity [M79.605] Need for prophylactic vaccination against Streptococcus pneumoniae (pneumococcus) Need for prophylactic vaccination against streptococcus pneumoniae (pneumococcus) 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 Type II or unspecified type diabetes mellitus with renal manifestations, not stated as uncontrolled Raynaud's disease without gangrene Encounter for screening mammogram for malignant neoplasm of breast Other screening mammogram Tobacco abuse Tobacco use disorder Essential hypertension Unspecified essential hypertension Anxiety and depression Dysthymic disorder 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 Type II or unspecified type diabetes mellitus with renal manifestations, not stated as uncontrolled Tendinitis of thumb Other tenosynovitis of hand and wrist Essential hypertension with goal blood pressure less than 140/90 Pain in right hip Pain in joint, pelvic region and thigh Ingrown nail of fifth toe of left foot Type 2 diabetes mellitus with diabetic nephropathy, without long-term current use of insulin (HCC)- Primary Anxiety and depression Dysthymic disorder Hyperlipidemia, unspecified hyperlipidemia type Essential hypertension Unspecified essential hypertension Encounter for screening mammogram for high-risk patient Tobacco abuse Tobacco use disorder Other fatigue- Primary Type 2 diabetes mellitus with diabetic nephropathy, unspecified whether financial services officer insulin use (HCC) Essential hypertension Unspecified essential hypertension RLS (restless legs syndrome) Restless legs syndrome (RLS) Easy bruising Other symptoms involving skin and integumentary tissues Iron deficiency Iron deficiency anemia, unspecified Folate deficiency Other B-complex deficiencies Rheumatoid arthritis, involving unspecified site, unspecified whether rheumatoid factor present ([facility]) [facility] Diagnosis Essential hypertension- Primary Unspecified essential hypertension 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) Type II or unspecified type diabetes mellitus with ophthalmic manifestations, not stated as uncontrolled Gastroesophageal reflux disease without esophagitis Esophageal reflux Multiple allergies Other allergy, other than to medicinal agents Anxiety and depression Dysthymic disorder Hyperlipidemia Other and unspecified hyperlipidemia Tobacco abuse Tobacco use disorder Fibromyalgia syndrome Mylagia and myositis, unspecified 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 Type II or unspecified type diabetes mellitus with renal manifestations, not stated as uncontrolled Hypertriglyceridemia Pure hyperglyceridemia Tendinitis of thumb Other tenosynovitis of hand and wrist Essential hypertension Unspecified essential hypertension Hyperlipidemia Other and unspecified hyperlipidemia Anxiety and depression Dysthymic disorder History of environmental allergies Other allergy, other than to medicinal agents Tobacco abuse Tobacco use disorder 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 Type II or unspecified type diabetes mellitus with ophthalmic manifestations, not stated as uncontrolled Type 2 diabetes mellitus with diabetic nephropathy (HCC) Type II or unspecified type diabetes mellitus with renal manifestations, not stated as uncontrolled Tobacco abuse Tobacco use disorder PVD (peripheral vascular disease) Peripheral vascular disease, unspecified Breast cancer screening, high risk patient Screening mammogram for high-risk patient Routine health maintenance Routine general medical examination at a health care facility Pain of left lower extremity [M79.605] Need for prophylactic vaccination against Streptococcus pneumoniae (pneumococcus) Need for prophylactic vaccination against streptococcus pneumoniae (pneumococcus) 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 Type II or unspecified type diabetes mellitus with renal manifestations, not stated as uncontrolled Raynaud's disease without gangrene Encounter for screening mammogram for malignant neoplasm of breast Other screening mammogram Tobacco abuse Tobacco use disorder Essential hypertension Unspecified essential hypertension Anxiety and depression Dysthymic disorder 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 Type II or unspecified type diabetes mellitus with renal manifestations, not stated as uncontrolled Tendinitis of thumb Other tenosynovitis of hand and wrist Essential hypertension with goal blood pressure less than 140/90 Pain in right hip Pain in joint, pelvic region and thigh Ingrown nail of fifth toe of left foot Type 2 diabetes mellitus with diabetic nephropathy, without long-term current use of insulin (HCC)- Primary Anxiety and depression Dysthymic disorder Hyperlipidemia, unspecified hyperlipidemia type Essential hypertension Unspecified essential hypertension Encounter for screening mammogram for high-risk patient Tobacco abuse Tobacco use disorder RLS (restless legs syndrome) Restless legs syndrome (RLS) Restless legs Restless legs syndrome (RLS) [facility] Diagnosis Essential hypertension- Primary Unspecified essential hypertension 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) Type II or unspecified type diabetes mellitus with ophthalmic manifestations, not stated as uncontrolled Gastroesophageal reflux disease without esophagitis Esophageal reflux Multiple allergies Other allergy, other than to medicinal agents Anxiety and depression Dysthymic disorder Hyperlipidemia Other and unspecified hyperlipidemia Tobacco abuse Tobacco use disorder Fibromyalgia syndrome Mylagia and myositis, unspecified 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 Type II or unspecified type diabetes mellitus with renal manifestations, not stated as uncontrolled Hypertriglyceridemia Pure hyperglyceridemia Tendinitis of thumb Other tenosynovitis of hand and wrist Essential hypertension Unspecified essential hypertension Hyperlipidemia Other and unspecified hyperlipidemia Anxiety and depression Dysthymic disorder History of environmental allergies Other allergy, other than to medicinal agents Tobacco abuse Tobacco use disorder 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 Type II or unspecified type diabetes mellitus with ophthalmic manifestations, not stated as uncontrolled Type 2 diabetes mellitus with diabetic nephropathy (HCC) Type II or unspecified type diabetes mellitus with renal manifestations, not stated as uncontrolled Tobacco abuse Tobacco use disorder PVD (peripheral vascular disease) Peripheral vascular disease, unspecified Breast cancer screening, high risk patient Screening mammogram for high-risk patient Routine health maintenance Routine general medical examination at a health care facility Pain of left lower extremity [M79.605] Need for prophylactic vaccination against Streptococcus pneumoniae (pneumococcus) Need for prophylactic vaccination against streptococcus pneumoniae (pneumococcus) 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 Type II or unspecified type diabetes mellitus with renal manifestations, not stated as uncontrolled Raynaud's disease without gangrene Encounter for screening mammogram for malignant neoplasm of breast Other screening mammogram Tobacco abuse Tobacco use disorder Essential hypertension Unspecified essential hypertension Anxiety and depression Dysthymic disorder 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 Type II or unspecified type diabetes mellitus with renal manifestations, not stated as uncontrolled Tendinitis of thumb Other tenosynovitis of hand and wrist Essential hypertension with goal blood pressure less than 140/90 Pain in right hip Pain in joint, pelvic region and thigh Ingrown nail of fifth toe of left foot Type 2 diabetes mellitus with diabetic nephropathy, without long-term current use of insulin (HCC)- Primary Anxiety and depression Dysthymic disorder Hyperlipidemia, unspecified hyperlipidemia type Essential hypertension Unspecified essential hypertension Encounter for screening mammogram for high-risk patient Tobacco abuse Tobacco use disorder Restless legs Restless legs syndrome (RLS) [facility] Diagnosis Essential hypertension- Primary Unspecified essential hypertension 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) Type II or unspecified type diabetes mellitus with ophthalmic manifestations, not stated as uncontrolled Gastroesophageal reflux disease without esophagitis Esophageal reflux Multiple allergies Other allergy, other than to medicinal agents Anxiety and depression Dysthymic disorder Hyperlipidemia Other and unspecified hyperlipidemia Tobacco abuse Tobacco use disorder Fibromyalgia syndrome Mylagia and myositis, unspecified 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 Type II or unspecified type diabetes mellitus with renal manifestations, not stated as uncontrolled Hypertriglyceridemia Pure hyperglyceridemia Tendinitis of thumb Other tenosynovitis of hand and wrist Essential hypertension Unspecified essential hypertension Hyperlipidemia Other and unspecified hyperlipidemia Anxiety and depression Dysthymic disorder History of environmental allergies Other allergy, other than to medicinal agents Tobacco abuse Tobacco use disorder 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 Type II or unspecified type diabetes mellitus with ophthalmic manifestations, not stated as uncontrolled Type 2 diabetes mellitus with diabetic nephropathy (HCC) Type II or unspecified type diabetes mellitus with renal manifestations, not stated as uncontrolled Tobacco abuse Tobacco use disorder PVD (peripheral vascular disease) Peripheral vascular disease, unspecified Breast cancer screening, high risk patient Screening mammogram for high-risk patient Routine health maintenance Routine general medical examination at a health care facility Pain of left lower extremity [M79.605] Need for prophylactic vaccination against Streptococcus pneumoniae (pneumococcus) Need for prophylactic vaccination against streptococcus pneumoniae (pneumococcus) 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 Type II or unspecified type diabetes mellitus with renal manifestations, not stated as uncontrolled Raynaud's disease without gangrene Encounter for screening mammogram for malignant neoplasm of breast Other screening mammogram Tobacco abuse Tobacco use disorder Essential hypertension Unspecified essential hypertension Anxiety and depression Dysthymic disorder 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 Type II or unspecified type diabetes mellitus with renal manifestations, not stated as uncontrolled Tendinitis of thumb Other tenosynovitis of hand and wrist Essential hypertension with goal blood pressure less than 140/90 Pain in right hip Pain in joint, pelvic region and thigh Ingrown nail of fifth toe of left foot Type 2 diabetes mellitus with diabetic nephropathy, without long-term current use of insulin (HCC)- Primary Anxiety and depression Dysthymic disorder Hyperlipidemia, unspecified hyperlipidemia type Essential hypertension Unspecified essential hypertension Encounter for screening mammogram for high-risk patient Tobacco abuse Tobacco use disorder Depression with anxiety Dysthymic disorder [facility] Diagnosis Essential hypertension- Primary Unspecified essential hypertension 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) Type II or unspecified type diabetes mellitus with ophthalmic manifestations, not stated as uncontrolled Gastroesophageal reflux disease without esophagitis Esophageal reflux Multiple allergies Other allergy, other than to medicinal agents Anxiety and depression Dysthymic disorder Hyperlipidemia Other and unspecified hyperlipidemia Tobacco abuse Tobacco use disorder Fibromyalgia syndrome Mylagia and myositis, unspecified 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 Type II or unspecified type diabetes mellitus with renal manifestations, not stated as uncontrolled Hypertriglyceridemia Pure hyperglyceridemia Tendinitis of thumb Other tenosynovitis of hand and wrist Essential hypertension Unspecified essential hypertension Hyperlipidemia Other and unspecified hyperlipidemia Anxiety and depression Dysthymic disorder History of environmental allergies Other allergy, other than to medicinal agents Tobacco abuse Tobacco use disorder 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 Type II or unspecified type diabetes mellitus with ophthalmic manifestations, not stated as uncontrolled Type 2 diabetes mellitus with diabetic nephropathy (HCC) Type II or unspecified type diabetes mellitus with renal manifestations, not stated as uncontrolled Tobacco abuse Tobacco use disorder PVD (peripheral vascular disease) Peripheral vascular disease, unspecified Breast cancer screening, high risk patient Screening mammogram for high-risk patient Routine health maintenance Routine general medical examination at a health care facility Pain of left lower extremity [M79.605] Need for prophylactic vaccination against Streptococcus pneumoniae (pneumococcus) Need for prophylactic vaccination against streptococcus pneumoniae (pneumococcus) 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 Type II or unspecified type diabetes mellitus with renal manifestations, not stated as uncontrolled Raynaud's disease without gangrene Encounter for screening mammogram for malignant neoplasm of breast Other screening mammogram Tobacco abuse Tobacco use disorder Essential hypertension Unspecified essential hypertension Anxiety and depression Dysthymic disorder 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 Type II or unspecified type diabetes mellitus with renal manifestations, not stated as uncontrolled Tendinitis of thumb Other tenosynovitis of hand and wrist Essential hypertension with goal blood pressure less than 140/90 Pain in right hip Pain in joint, pelvic region and thigh Ingrown nail of fifth toe of left foot Type 2 diabetes mellitus with diabetic nephropathy, without long-term current use of insulin (HCC)- Primary Anxiety and depression Dysthymic disorder Hyperlipidemia, unspecified hyperlipidemia type Essential hypertension Unspecified essential hypertension Encounter for screening mammogram for high-risk patient Tobacco abuse Tobacco use disorder Other fatigue- Primary Restless legs Restless legs syndrome (RLS) Type 1 diabetes mellitus with hyperglycemia (HCC) Type I (juvenile type) diabetes mellitus without mention of complication, not stated as uncontrolled Intertrigo Other specified erythematous condition [facility] Diagnosis On methotrexate therapy [facility] Diagnosis Seronegative rheumatoid arthritis (CMS/HCC) (HCC)- Primary Rheumatoid arthritis [facility] Diagnosis On methotrexate therapy 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) (HCC) documented in this encounter [facility] note* Diagnosis Seronegative rheumatoid arthritis (HCC)- Primary Rheumatoid arthritis [facility] Dis[facility] instructions[facility] Instructions Your workup negative for diabetic ketoacidosis. Glucose was 425 in the lab down to 235 on recheck after additional 15 units of short acting insulin. Discussed with your endocrinology team for adjustments of your insulin.[facility] Work Phone: Reason for referral (narrative)* Outpatient Procedure (Routine) - Authorized Specialty Diagnoses / Procedures Referred By Contac t [facility] Diagnoses Palpitations Shortness of breath Pre-syncope MVP (mitral valve prolapse) Procedures ECHO ECHO TTHRC R-T 2D W/WOM-MODE COMPL SPEC&COLR D Gela Medina APRN.AERIAL PHOTOGRAMMETRIST [address] [place] [address] [facility] [address] [place] [id number] Referral ID Status Reason Start Date Expiration Date Visits Requested Visits Authorized [id number] Authorized Auto-Generat ed Referral 12/19/2023 12/18/2024 1 1 * Outpatient Procedure (Routine) - New Request Specialty Diagnoses / Procedures Referred By Nidaac shanelle Ref[facility] Diagnoses Palpitations Shortness of breath Pre-syncope Procedures ECG COMPLETE ECG ROUTINE ECG W/LEAST 12 LDS W/I&R Gela Medina APRN.AERIAL PHOTOGRAMMETRIST [address] [place] [address] [facility] [address] [address] Referral ID Status Reason Start Date Expiration Date Visits Requested Visits Authorized [id number] New Request Auto-Generat ed Referral 12/19/2023 12/18/2024 1 1 [facility]ative[facility]No reason for referral information [facility] Work Phone: Reason for visit Narrative* Diagnostic Procedure Only (Routine) - Closed Specialty Diagnoses / Procedures Referred By Contac t Referred To Contact [facility] Diagnoses Encounter for screening mammogram for breast cancer Procedures TORRI SCREENING SCREENING MAMMOGRAPHY BI 2-VIEW BREAST INC CAD Melyssa Mobley MD [address] [place] [address] [facility] [address] [place] [address] Referral ID Status Reason Start Date Expiration Date V isits Requested Visits Authorized [id number] Closed Auto-Generate d Referral 02/09/2023 03/10/2024 1 1 [facility] Chief Complaint and Reason for Visit Chief Complaint LEG PAIN Left knee xray knee pain POSTERIOR LEFT KNEE PAIN LEFT KNEE LEFT KNEE LOWER Reason for Visit Effusion, left knee Posterior left knee pain Posterior left knee pain Synovial cyst of popliteal space [Means], left knee Effusion, left knee Chief Complaint LEG PAIN Left knee xray knee pain POSTERIOR LEFT KNEE PAIN LEFT KNEE LEFT KNEE LOWER SYNOVIAL CYST LEFT KNEE LEFT KNEE RIGHT SHOULDER Reason for Visit Effusion, left knee Posterior left knee pain Posterior left knee pain Synovial cyst of popliteal space [Means], left knee Effusion, left knee Effusion, left knee Chief Complaint abscess Chief Complaint abscess LOW BS Chief Complaint Admit Date Diabetes September 24, 2024 11:0 8am Chief Complaint Admit Date Diabetes September 24, 2024 11:0 8am hyperglycemia October 18, 2024 9:27 pm Reason for Visit Admit Date Essential (primary) hypertension September 242024 11:08am Hyperlipidemia September 24, 2024 11:0 8am Lipohypertrophy due to insulin injection September 24, 2024 11:08am Microalbuminuria due to type 1 diabetes mellitus September 24, 2024 11:08am Obesity September 24, 2024 11:0 8am Type 1 diabetes mellitus with hyperglyce michelle September 24, 2024 11:08am Family History No Family History Records Found Relationship Condition Age at Onset Recorded Date/T aroldo Unknown Family History?Diabetes Unknown 2019 8:31pm Relationship Condition Age at Onset Recorded Date/T aroldo Unknown Family History?Diabetes Unknown 2019 8:31pm Family History?Diabetes Unknown August 10, 2021 9:16am Relationship Condition Age at Onset Recorded Date/T aroldo mother Hypertension Unknown Malignant neoplasm of breast Unknown father Parkinson's disease Unknown Hyperlipidemia Unknown grandmother Chronic obstructive pulmonary disease Unk nown Coronary artery disease Unknown grandfather Coronary artery disease Unknown Advance Directives No Advanced Directives Records Found Advance Directive Response Recorded Date/ Time Living Will No July 19, 2021 4:32am Power of Sales And Service Technician No July 19 4:32am Advance Directive Response Recorded Date/ Time Living Will No August 10, 2021 9 :16am Power of Sales And Service Technician No August 10, 2021 9:16am Advance Directive Response Recorded Date/ Time Living Will No September 08, 2022 9:49pm Power of Sales And Service Technician No September 08 9:49pm Advance Directive Response Recorded Date/ Time Do you have a Healthcare Power of Sales And Service Technician? No October 18, 2024 9:33pm Reason for Referral Specialty Diagnoses / Procedures Referred By Contac t Referred To Contact Nutrition Diagnoses Type 2 diabetes mellitus with diabetic nephropathy, with long-term current use of insulin (HCC) Essential hypertension Procedures CONSULT TO NUTRITION THERAPY MEDICAL NUTRITION ASSMT&IVNTJ INDIV EACH 15 [place] Gela Medina APRN.AERIAL PHOTOGRAMMETRIST [address] [place] [address] Referral ID Status Reason Start Date Expiration Date Visits Requested Visits Authorized [id number] Authorized PCP Requested Referral 02/14/2025 1 4 Specialty Diagnoses / Procedures Referred By Contac t Referred To Contact Cardiology Diagnoses Palpitations Pre-syncope 1st degree AV block SVT (supraventricular tachycardia) ([facility]) Procedures CONSULT TO CARDIOLOGY OFFICE/OUTPATIENT NEW HIGH [facility] 60 MINUTES Lavinia, APRN. GelaAERIAL PHOTOGRAMMETRIST [address] [place] [address] Referral ID Status Reason Start Date Expiration Date Visits Requested Visits Authorized [id number] Authorized PCP Requested Referral 02/01/2024 01/31/2025 1 1 Specialty Diagnoses / Procedures Referred By Contac t Referred To Contact General Surgery Diagnoses Skin infection Cyst of skin Procedures CONSULT TO GENERAL SURGERY OFFICE/OUTPATIENT NEW HIGH MDM 60 MINUTES Gela Medina APRN.AERIAL PHOTOGRAMMETRIST [address] [place] [address] Referral ID Status Reason Start Date Expiration Date Visits Requested Visits Authorized [id number] Authorized PCP Requested Referral 09/08/2023 09/07/2024 1 1 Specialty Diagnoses / Procedures Referred By Contac t Referred To Contact General Surgery Diagnoses Positive FIT (fecal immunochemical test) Procedures CONSULT TO GENERAL SURGERY OFFICE/OUTPATIENT [facility] 60 MINUTES Gela Medina APRN.AERIAL PHOTOGRAMMETRIST [address] [place] [address] Referral ID Status Reason Start Date Expiration Date Visits Requested Visits Authorized [id number] Authorized PCP Requested Referral 05/09/2023 05/08/2024 1 1 Specialty Diagnoses / Procedures Referred By Gillian t Referred To Contact Diagnoses Low blood sugar Nausea and vomiting, unspecified vomiting type Gela Medina APRN.AERIAL PHOTOGRAMMETRIST [address] [place] [address] Referral ID Status Reason Start Date Expiration Date Visits Re quested Visits Authorized [id number] Closed 1 1 Specialty Diagnoses / Procedures Referred By Gillian t Referred To Contact Diagnoses 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), managed as type 1 (HCC) Procedures CONSULT TO DIABETES EDUCATION OFFICE/OUTPATIENT [facility] 60-74 MINUTES Katharine Dejesus APRN.AERIAL PHOTOGRAMMETRIST [id number] [place] [address] Referral ID Status Reason Start Date Expiration Date Visits Requested Visits Authorized [id number] Pending Review PCP Requested Referral 05/05/2022 04/28/2023 1 1 Specialty Diagnoses / Procedures Referred By Nidaac t Referred To Contact Endocrinology Diagnoses Type 2 diabetes mellitus with diabetic nephropathy, with long-term current use of insulin (HCC) Procedures CONSULT TO ENDOCRINOLOGY OFFICE/OUTPATIENT [facility] 60-74 MINUTES OlderGela APRN.AERIAL PHOTOGRAMMETRIST [address] [place] [address] Referral ID Status Reason Start Date Expiration Date Visits Requested Visits Authorized [id number] Authorized PCP Requested Referral 04/14/2022 04/14/2023 1 1 Specialty Diagnoses / Procedures Referred By Contac t Referred To Contact Ophthalmology Diagnoses Type 2 diabetes mellitus with diabetic nephropathy, with long-term current use of insulin (HCC) Procedures CONSULT TO OPHTHALMOLOGY OFFICE/OUTPATIENT [facility] 60-74 MINUTES Gela Medina APRN.AERIAL PHOTOGRAMMETRIST [address] [place] [address] Referral ID Status Reason Start Date Expiration Date Visits Requested Visits Authorized [id number] Pending Review PCP Requested Referral 09/11/2021 09/11/2022 1 1 Summary Purpose Additional Source Comments Source Comments (unrecognize d section and content) In the event this informatio n is protected by the Federal Confidentiality of Alcohol and Drug Abuse Patient Records regulations: The Federal rules restrict any use of the information to criminally investigate or prosecute any alcohol or drug abuse patient.[facility] the event this information is protected by the Federal Confidentiality of Alcohol and Drug Abuse Patient Records regulations: The Federal rules restrict any use of the information to criminally investigate or prosecute any alcohol or drug abuse patient.[facility] the event this information is protected by the Federal Confidentiality of Alcohol and Drug Abuse Patient Records regulations: The Federal rules restrict any use of the information to criminally investigate or prosecute any alcohol or drug abuse patient.[facility]In the event this information is protected by the Federal Confidentiality of Alcohol and Drug Abuse Patient Records regulations: The Federal rules restrict any use of the information to criminally investigate or prosecute any alcohol or drug abuse patient.[facility]In the event this information is protected by the Federal Confidentiality of Alcohol and Drug Abuse Patient Records regulations: The Federal rules restrict any use of the information to criminally investigate or prosecute any alcohol or drug abuse patient.[facility]In the event this information is protected by the Federal Confidentiality of Alcohol and Drug Abuse Patient Records regulations: The Federal rules restrict any use of the information to criminally investigate or prosecute any alcohol or drug abuse patient.[facility]In the event this information is protected by the Federal Confidentiality of Alcohol and Drug Abuse Patient Records regulations: The Federal rules restrict any use of the information to criminally investigate or prosecute any alcohol or drug abuse patient.[facility] HospitalIn the event this information is protected by the Federal Confidentiality of Alcohol and Drug Abuse Patient Records regulations: The Federal rules restrict any use of the information to criminally investigate or prosecute any alcohol or drug abuse patient.[facility] HospitalIn the event this information is protected by the Federal Confidentiality of Alcohol and Drug Abuse Patient Records regulations: The Federal rules restrict any use of the information to criminally investigate or prosecute any alcohol or drug abuse patient.[facility] HospitalIn the event this information is protected by the Federal Confidentiality of Alcohol and Drug Abuse Patient Records regulations: The Federal rules restrict any use of the information to criminally investigate or prosecute any alcohol or drug abuse patient.[facility] HospitalIn the event this information is protected by the Federal Confidentiality of Alcohol and Drug Abuse Patient Records regulations: The Federal rules restrict any use of the information to criminally investigate or prosecute any alcohol or drug abuse patient.[facility] HospitalIn the event this information is protected by the Federal Confidentiality of Alcohol and Drug Abuse Patient Records regulations: The Federal rules restrict any use of the information to criminally investigate or prosecute any alcohol or drug abuse patient.[facility] HospitalIn the event this information is protected by the Federal Confidentiality of Alcohol and Drug Abuse Patient Records regulations: The Federal rules restrict any use of the information to criminally investigate or prosecute any alcohol or drug abuse patient.[facility] HospitalIn the event this information is protected by the Federal Confidentiality of Alcohol and Drug Abuse Patient Records regulations: The Federal rules restrict any use of the information to criminally investigate or prosecute any alcohol or drug abuse patient.[facility] HospitalIn the event this information is protected by the Federal Confidentiality of Alcohol and Drug Abuse Patient Records regulations: The Federal rules restrict any use of the information to criminally investigate or prosecute any alcohol or drug abuse patient.[facility] HospitalIn the event this information is protected by the Federal Confidentiality of Alcohol and Drug Abuse Patient Records regulations: The Federal rules restrict any use of the information to criminally investigate or prosecute any alcohol or drug abuse patient.[facility] HospitalIn the event this information is protected by the Federal Confidentiality of Alcohol and Drug Abuse Patient Records regulations: The Federal rules restrict any use of the information to criminally investigate or prosecute any alcohol or drug abuse patient.[facility] HospitalIn the event this information is protected by the Federal Confidentiality of Alcohol and Drug Abuse Patient Records regulations: The Federal rules restrict any use of the information to criminally investigate or prosecute any alcohol or drug abuse patient.[facility] HospitalIn the event this information is protected by the Federal Confidentiality of Alcohol and Drug Abuse Patient Records regulations: The Federal rules restrict any use of the information to criminally investigate or prosecute any alcohol or drug abuse patient.[facility] HospitalIn the event this information is protected by the Federal Confidentiality of Alcohol and Drug Abuse Patient Records regulations: The Federal rules restrict any use of the information to criminally investigate or prosecute any alcohol or drug abuse patient.[facility] HospitalIn the event this information is protected by the Federal Confidentiality of Alcohol and Drug Abuse Patient Records regulations: The Federal rules restrict any use of the information to criminally investigate or prosecute any alcohol or drug abuse patient.[facility] HospitalIn the event this information is protected by the Federal Confidentiality of Alcohol and Drug Abuse Patient Records regulations: The Federal rules restrict any use of the information to criminally investigate or prosecute any alcohol or drug abuse patient.[facility] HospitalIn the event this information is protected by the Federal Confidentiality of Alcohol and Drug Abuse Patient Records regulations: The Federal rules restrict any use of the information to criminally investigate or prosecute any alcohol or drug abuse patient.[facility] HospitalIn the event this information is protected by the Federal Confidentiality of Alcohol and Drug Abuse Patient Records regulations: The Federal rules restrict any use of the information to criminally investigate or prosecute any alcohol or drug abuse patient.[facility] HospitalIn the event this information is protected by the Federal Confidentiality of Alcohol and Drug Abuse Patient Records regulations: The Federal rules restrict any use of the information to criminally investigate or prosecute any alcohol or drug abuse patient.[facility] HospitalIn the event this information is protected by the Federal Confidentiality of Alcohol and Drug Abuse Patient Records regulations: The Federal rules restrict any use of the information to criminally investigate or prosecute any alcohol or drug abuse patient.[facility] HospitalIn the event this information is protected by the Federal Confidentiality of Alcohol and Drug Abuse Patient Records regulations: The Federal rules restrict any use of the information to criminally investigate or prosecute any alcohol or drug abuse patient.[facility] HospitalIn the event this information is protected by the Federal Confidentiality of Alcohol and Drug Abuse Patient Records regulations: The Federal rules restrict any use of the information to criminally investigate or prosecute any alcohol or drug abuse patient.[facility] HospitalIn the event this information is protected by the Federal Confidentiality of Alcohol and Drug Abuse Patient Records regulations: The Federal rules restrict any use of the information to criminally investigate or prosecute any alcohol or drug abuse patient.[facility] HospitalIn the event this information is protected by the Federal Confidentiality of Alcohol and Drug Abuse Patient Records regulations: The Federal rules restrict any use of the information to criminally investigate or prosecute any alcohol or drug abuse patient.[facility] HospitalIn the event this information is protected by the Federal Confidentiality of Alcohol and Drug Abuse Patient Records regulations: The Federal rules restrict any use of the information to criminally investigate or prosecute any alcohol or drug abuse patient.[facility] HospitalIn the event this information is protected by the Federal Confidentiality of Alcohol and Drug Abuse Patient Records regulations: The Federal rules restrict any use of the information to criminally investigate or prosecute any alcohol or drug abuse patient.[facility] HospitalIn the event this information is protected by the Federal Confidentiality of Alcohol and Drug Abuse Patient Records regulations: The Federal rules restrict any use of the information to criminally investigate or prosecute any alcohol or drug abuse patient.[facility] HospitalIn the event this information is protected by the Federal Confidentiality of Alcohol and Drug Abuse Patient Records regulations: The Federal rules restrict any use of the information to criminally investigate or prosecute any alcohol or drug abuse patient.[facility] HospitalIn the event this information is protected by the Federal Confidentiality of Alcohol and Drug Abuse Patient Records regulations: The Federal rules restrict any use of the information to criminally investigate or prosecute any alcohol or drug abuse patient.[facility] the event this information is protected by the Federal Confidentiality of Alcohol and Drug Abuse Patient Records regulations: The Federal rules restrict any use of the information to criminally investigate or prosecute any alcohol or drug abuse patient.[facility] HospitalIn the event this information is protected by the Federal Confidentiality of Alcohol and Drug Abuse Patient Records regulations: The Federal rules restrict any use of the information to criminally investigate or prosecute any alcohol or drug abuse patient.[facility] HospitalIn the event this information is protected by the Federal Confidentiality of Alcohol and Drug Abuse Patient Records regulations: The Federal rules restrict any use of the information to criminally investigate or prosecute any alcohol or drug abuse patient.[facility]In the event this information is protected by the Federal Confidentiality of Alcohol and Drug Abuse Patient Records regulations: The Federal rules restrict any use of the information to criminally investigate or prosecute any alcohol or drug abuse patient.[facility] HospitalIn the event this information is protected by the Federal Confidentiality of Alcohol and Drug Abuse Patient Records regulations: The Federal rules restrict any use of the information to criminally investigate or prosecute any alcohol or drug abuse patient.[facility] HospitalIn the event this information is protected by the Federal Confidentiality of Alcohol and Drug Abuse Patient Records regulations: The Federal rules restrict any use of the information to criminally investigate or prosecute any alcohol or drug abuse patient.[facility] HospitalIn the event this information is protected by the Federal Confidentiality of Alcohol and Drug Abuse Patient Records regulations: The Federal rules restrict any use of the information to criminally investigate or prosecute any alcohol or drug abuse patient.[facility] HospitalIn the event this information is protected by the Federal Confidentiality of Alcohol and Drug Abuse Patient Records regulations: The Federal rules restrict any use of the information to criminally investigate or prosecute any alcohol or drug abuse patient.[facility] HospitalIn the event this information is protected by the Federal Confidentiality of Alcohol and Drug Abuse Patient Records regulations: The Federal rules restrict any use of the information to criminally investigate or prosecute any alcohol or drug abuse patient.[facility] HospitalIn the event this information is protected by the Federal Confidentiality of Alcohol and Drug Abuse Patient Records regulations: The Federal rules restrict any use of the information to criminally investigate or prosecute any alcohol or drug abuse patient.[facility] HospitalIn the event this information is protected by the Federal Confidentiality of Alcohol and Drug Abuse Patient Records regulations: The Federal rules restrict any use of the information to criminally investigate or prosecute any alcohol or drug abuse patient.[facility] HospitalIn the event this information is protected by the Federal Confidentiality of Alcohol and Drug Abuse Patient Records regulations: The Federal rules restrict any use of the information to criminally investigate or prosecute any alcohol or drug abuse patient.[facility] HospitalIn the event this information is protected by the Federal Confidentiality of Alcohol and Drug Abuse Patient Records regulations: The Federal rules restrict any use of the information to criminally investigate or prosecute any alcohol or drug abuse patient.[facility] HospitalIn the event this information is protected by the Federal Confidentiality of Alcohol and Drug Abuse Patient Records regulations: The Federal rules restrict any use of the information to criminally investigate or prosecute any alcohol or drug abuse patient.[facility] HospitalIn the event this information is protected by the Federal Confidentiality of Alcohol and Drug Abuse Patient Records regulations: The Federal rules restrict any use of the information to criminally investigate or prosecute any alcohol or drug abuse patient.[facility] HospitalIn the event this information is protected by the Federal Confidentiality of Alcohol and Drug Abuse Patient Records regulations: The Federal rules restrict any use of the information to criminally investigate or prosecute any alcohol or drug abuse patient.[facility] HospitalIn the event this information is protected by the Federal Confidentiality of Alcohol and Drug Abuse Patient Records regulations: The Federal rules restrict any use of the information to criminally investigate or prosecute any alcohol or drug abuse patient.[facility] HospitalIn the event this information is protected by the Federal Confidentiality of Alcohol and Drug Abuse Patient Records regulations: The Federal rules restrict any use of the information to criminally investigate or prosecute any alcohol or drug abuse patient.[facility] HospitalIn the event this information is protected by the Federal Confidentiality of Alcohol and Drug Abuse Patient Records regulations: The Federal rules restrict any use of the information to criminally investigate or prosecute any alcohol or drug abuse patient.[facility] HospitalIn the event this information is protected by the Federal Confidentiality of Alcohol and Drug Abuse Patient Records regulations: The Federal rules restrict any use of the information to criminally investigate or prosecute any alcohol or drug abuse patient.[facility] HospitalIn the event this information is protected by the Federal Confidentiality of Alcohol and Drug Abuse Patient Records regulations: The Federal rules restrict any use of the information to criminally investigate or prosecute any alcohol or drug abuse patient.[facility] HospitalIn the event this information is protected by the Federal Confidentiality of Alcohol and Drug Abuse Patient Records regulations: The Federal rules restrict any use of the information to criminally investigate or prosecute any alcohol or drug abuse patient.[facility] HospitalIn the event this information is protected by the Federal Confidentiality of Alcohol and Drug Abuse Patient Records regulations: The Federal rules restrict any use of the information to criminally investigate or prosecute any alcohol or drug abuse patient.[facility] HospitalIn the event this information is protected by the Federal Confidentiality of Alcohol and Drug Abuse Patient Records regulations: The Federal rules restrict any use of the information to criminally investigate or prosecute any alcohol or drug abuse patient.[facility] HospitalIn the event this information is protected by the Federal Confidentiality of Alcohol and Drug Abuse Patient Records regulations: The Federal rules restrict any use of the information to criminally investigate or prosecute any alcohol or drug abuse patient.[facility] HospitalIn the event this information is protected by the Federal Confidentiality of Alcohol and Drug Abuse Patient Records regulations: The Federal rules restrict any use of the information to criminally investigate or prosecute any alcohol or drug abuse patient.[facility] HospitalIn the event this information is protected by the Federal Confidentiality of Alcohol and Drug Abuse Patient Records regulations: The Federal rules restrict any use of the information to criminally investigate or prosecute any alcohol or drug abuse patient.[facility] HospitalIn the event this information is protected by the Federal Confidentiality of Alcohol and Drug Abuse Patient Records regulations: The Federal rules restrict any use of the information to criminally investigate or prosecute any alcohol or drug abuse patient.[facility] HospitalIn the event this information is protected by the Federal Confidentiality of Alcohol and Drug Abuse Patient Records regulations: The Federal rules restrict any use of the information to criminally investigate or prosecute any alcohol or drug abuse patient.[facility] HospitalIn the event this information is protected by the Federal Confidentiality of Alcohol and Drug Abuse Patient Records regulations: The Federal rules restrict any use of the information to criminally investigate or prosecute any alcohol or drug abuse patient.[facility] HospitalIn the event this information is protected by the Federal Confidentiality of Alcohol and Drug Abuse Patient Records regulations: The Federal rules restrict any use of the information to criminally investigate or prosecute any alcohol or drug abuse patient.[facility] HospitalIn the event this information is protected by the Federal Confidentiality of Alcohol and Drug Abuse Patient Records regulations: The Federal rules restrict any use of the information to criminally investigate or prosecute any alcohol or drug abuse patient.[facility] HospitalIn the event this information is protected by the Federal Confidentiality of Alcohol and Drug Abuse Patient Records regulations: The Federal rules restrict any use of the information to criminally investigate or prosecute any alcohol or drug abuse patient.[facility] HospitalIn the event this information is protected by the Federal Confidentiality of Alcohol and Drug Abuse Patient Records regulations: The Federal rules restrict any use of the information to criminally investigate or prosecute any alcohol or drug abuse patient.[facility] HospitalIn the event this information is protected by the Federal Confidentiality of Alcohol and Drug Abuse Patient Records regulations: The Federal rules restrict any use of the information to criminally investigate or prosecute any alcohol or drug abuse patient.[facility] HospitalIn the event this information is protected by the Federal Confidentiality of Alcohol and Drug Abuse Patient Records regulations: The Federal rules restrict any use of the information to criminally investigate or prosecute any alcohol or drug abuse patient.[facility] HospitalIn the event this information is protected by the Federal Confidentiality of Alcohol and Drug Abuse Patient Records regulations: The Federal rules restrict any use of the information to criminally investigate or prosecute any alcohol or drug abuse patient.[facility] HospitalIn the event this information is protected by the Federal Confidentiality of Alcohol and Drug Abuse Patient Records regulations: The Federal rules restrict any use of the information to criminally investigate or prosecute any alcohol or drug abuse patient.[facility] HospitalIn the event this information is protected by the Federal Confidentiality of Alcohol and Drug Abuse Patient Records regulations: The Federal rules restrict any use of the information to criminally investigate or prosecute any alcohol or drug abuse patient.[facility] HospitalIn the event this information is protected by the Federal Confidentiality of Alcohol and Drug Abuse Patient Records regulations: The Federal rules restrict any use of the information to criminally investigate or prosecute any alcohol or drug abuse patient.[facility] HospitalIn the event this information is protected by the Federal Confidentiality of Alcohol and Drug Abuse Patient Records regulations: The Federal rules restrict any use of the information to criminally investigate or prosecute any alcohol or drug abuse patient.[facility] HospitalIn the event this information is protected by the Federal Confidentiality of Alcohol and Drug Abuse Patient Records regulations: The Federal rules restrict any use of the information to criminally investigate or prosecute any alcohol or drug abuse patient.[facility] HospitalIn the event this information is protected by the Federal Confidentiality of Alcohol and Drug Abuse Patient Records regulations: The Federal rules restrict any use of the information to criminally investigate or prosecute any alcohol or drug abuse patient.[facility] HospitalIn the event this information is protected by the Federal Confidentiality of Alcohol and Drug Abuse Patient Records regulations: The Federal rules restrict any use of the information to criminally investigate or prosecute any alcohol or drug abuse patient.[facility] HospitalIn the event this information is protected by the Federal Confidentiality of Alcohol and Drug Abuse Patient Records regulations: The Federal rules restrict any use of the information to criminally investigate or prosecute any alcohol or drug abuse patient.[facility] HospitalIn the event this information is protected by the Federal Confidentiality of Alcohol and Drug Abuse Patient Records regulations: The Federal rules restrict any use of the information to criminally investigate or prosecute any alcohol or drug abuse patient.[facility] HospitalIn the event this information is protected by the Federal Confidentiality of Alcohol and Drug Abuse Patient Records regulations: The Federal rules restrict any use of the information to criminally investigate or prosecute any alcohol or drug abuse patient.[facility] HospitalIn the event this information is protected by the Federal Confidentiality of Alcohol and Drug Abuse Patient Records regulations: The Federal rules restrict any use of the information to criminally investigate or prosecute any alcohol or drug abuse patient.[facility] HospitalIn the event this information is protected by the Federal Confidentiality of Alcohol and Drug Abuse Patient Records regulations: The Federal rules restrict any use of the information to criminally investigate or prosecute any alcohol or drug abuse patient.[facility] HospitalIn the event this information is protected by the Federal Confidentiality of Alcohol and Drug Abuse Patient Records regulations: The Federal rules restrict any use of the information to criminally investigate or prosecute any alcohol or drug abuse patient.[facility] the event this information is protected by the Federal Confidentiality of Alcohol and Drug Abuse Patient Records regulations: The Federal rules restrict any use of the information to criminally investigate or prosecute any alcohol or drug abuse patient.[facility] HospitalIn the event this information is protected by the Federal Confidentiality of Alcohol and Drug Abuse Patient Records regulations: The Federal rules restrict any use of the information to criminally investigate or prosecute any alcohol or drug abuse patient.[facility] HospitalIn the event this information is protected by the Federal Confidentiality of Alcohol and Drug Abuse Patient Records regulations: The Federal rules restrict any use of the information to criminally investigate or prosecute any alcohol or drug abuse patient.[facility]In the event this information is protected by the Federal Confidentiality of Alcohol and Drug Abuse Patient Records regulations: The Federal rules restrict any use of the information to criminally investigate or prosecute any alcohol or drug abuse patient.[facility] HospitalIn the event this information is protected by the Federal Confidentiality of Alcohol and Drug Abuse Patient Records regulations: The Federal rules restrict any use of the information to criminally investigate or prosecute any alcohol or drug abuse patient.[facility] HospitalIn the event this information is protected by the Federal Confidentiality of Alcohol and Drug Abuse Patient Records regulations: The Federal rules restrict any use of the information to criminally investigate or prosecute any alcohol or drug abuse patient.[facility] HospitalIn the event this information is protected by the Federal Confidentiality of Alcohol and Drug Abuse Patient Records regulations: The Federal rules restrict any use of the information to criminally investigate or prosecute any alcohol or drug abuse patient.[facility] HospitalIn the event this information is protected by the Federal Confidentiality of Alcohol and Drug Abuse Patient Records regulations: The Federal rules restrict any use of the information to criminally investigate or prosecute any alcohol or drug abuse patient.[facility] HospitalIn the event this information is protected by the Federal Confidentiality of Alcohol and Drug Abuse Patient Records regulations: The Federal rules restrict any use of the information to criminally investigate or prosecute any alcohol or drug abuse patient.[facility] HospitalIn the event this information is protected by the Federal Confidentiality of Alcohol and Drug Abuse Patient Records regulations: The Federal rules restrict any use of the information to criminally investigate or prosecute any alcohol or drug abuse patient.[facility] HospitalIn the event this information is protected by the Federal Confidentiality of Alcohol and Drug Abuse Patient Records regulations: The Federal rules restrict any use of the information to criminally investigate or prosecute any alcohol or drug abuse patient.[facility] HospitalIn the event this information is protected by the Federal Confidentiality of Alcohol and Drug Abuse Patient Records regulations: The Federal rules restrict any use of the information to criminally investigate or prosecute any alcohol or drug abuse patient.[facility] HospitalIn the event this information is protected by the Federal Confidentiality of Alcohol and Drug Abuse Patient Records regulations: The Federal rules restrict any use of the information to criminally investigate or prosecute any alcohol or drug abuse patient.[facility] HospitalIn the event this information is protected by the Federal Confidentiality of Alcohol and Drug Abuse Patient Records regulations: The Federal rules restrict any use of the information to criminally investigate or prosecute any alcohol or drug abuse patient.[facility] HospitalIn the event this information is protected by the Federal Confidentiality of Alcohol and Drug Abuse Patient Records regulations: The Federal rules restrict any use of the information to criminally investigate or prosecute any alcohol or drug abuse patient.[facility] HospitalIn the event this information is protected by the Federal Confidentiality of Alcohol and Drug Abuse Patient Records regulations: The Federal rules restrict any use of the information to criminally investigate or prosecute any alcohol or drug abuse patient.[facility] HospitalIn the event this information is protected by the Federal Confidentiality of Alcohol and Drug Abuse Patient Records regulations: The Federal rules restrict any use of the information to criminally investigate or prosecute any alcohol or drug abuse patient.[facility] HospitalIn the event this information is protected by the Federal Confidentiality of Alcohol and Drug Abuse Patient Records regulations: The Federal rules restrict any use of the information to criminally investigate or prosecute any alcohol or drug abuse patient.[facility] Reason for Visit (unrecogniz ed section and content) Reason Onset Date Comments Refill Request 06/24/2021 Reason Comments Established Patient Reason Comments Insomnia due to pain Reason Comments Diabetes Nicotine Dependence Reason Comments Recheck 3 month DM follow up Reason Comments Faxed to Rheum Reason Comments Diabetes Reason Comments Refill Request Reason Comments Results Reason Onset Date Comments Refill Request 02/09/2022 Reason Onset Date Comments Refill Request 03/09/2022 Reason Comments Recheck 3 month follow up Reason Comments Consult Type 2 diabetes Specialty Diagnoses / Procedures Referred By Gillian timmons Referred To Contact Endocrinology Diagnoses Type 2 diabetes mellitus with diabetic nephropathy, with long-term current use of insulin (HCC) Procedures CONSULT TO ENDOCRINOLOGY OFFICE/OUTPATIENT NEW HIGH MDM 60-74 MINUTES 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, 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 [address] [place] [address] Referral ID Status Reason Start Date Expiration Date V isits Requested Visits Authorized [id number] Closed PCP Requested Referral 04/14/2022 04/14/2023 1 1 Reason Comments Patient Question Reason Comments Results Reason Comments darrel PA for Dexcom G6 Reason Comments Patient Update Reason Onset Date Comments Refill Request 06/02/2022 Reason Comments Derm Problem Cyst L side of groin and chest x4 days Reason Onset Date Comments Refill Request 07/01/2022 Reason Onset Date Comments Refill Request 07/05/2022 Reason Onset Date Comments Medication Problem 07/15/2022 Meds arnt wor k said rate is 21 Reason Comments Recheck 3 month DM follow up Reason Comments Med Refill Reason Comments Low Blood Sugar Reason Comments Follow-up RA Reason Comments Orders Reason Comments Patient Request Patient Update Reason Comments Orders CGM/supplies Reason Comments Recheck Follow up Reason Comments Recheck 2 week follow up Reason Comments Dexacom Reason Onset Date Comments Refill Request 01/04/2023 Reason Comments Recheck 3 month follow up Reason Onset Date Comments Refill Request 01/07/2023 Reason Comments Fax recent labs Reason Onset Date Comments Refill Request 01/30/2023 Reason Onset Date Comments Refill Request 05/03/2023 Reason Comments Recheck 4 week follow up Reason Onset Date Comments Med Refill 05/11/2023 Reason Onset Date Comments Refill Request 05/12/2023 Reason Onset Date Comments Refill Request 05/18/2023 Reason Onset Date Comments fax recieved 06/03/2023 Reason Comments Thyroid Problem labs type 1 diabetes Change from Katharine mcmullen CNP Specialty Diagnoses / Procedures Referred By Gillian timmons Referred To Contact Endocrinology Diagnoses Type 2 diabetes mellitus with diabetic nephropathy, with long-term current use of insulin (HCC) Hypercalcemia Procedures CONSULT TO ENDOCRINOLOGY OFFICE/OUTPATIENT NEW HIGH MDM 60 MINUTES 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, 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 [address] [place] [address] Referral ID Status Reason Start Date Expiration Date V isits Requested Visits Authorized [id number] Closed PCP Requested Referral 04/07/2023 04/06/2024 1 1 Reason Comments Patient Question Stress and pain effe cting blood sugar Reason Onset Date Comments Refill Request 06/30/2023 Reason Onset Date Comments Refill Request 07/19/2023 Reason Onset Date Comments Refill Request 08/19/2023 Reason Onset Date Comments Refill Request 09/14/2023 Reason Onset Date Comments Refill Request 10/18/2023 Reason Comments Medication Request Reason Onset Date Comments Prior Authorization 11/01/2023 Enbrel Reason Comments Recheck 3 month follow up Reason Comments Recheck Follow up, medicatio n Reason Comments Insurance Authorization Reason Comments Follow-up Reason Onset Date Comments Refill Request 02/14/2024 Reason Comments MAKAYLA Reason Onset Date Comments Refill Request 02/20/2024 Reason Onset Date Comments Refill Request 02/29/2024 Reason Comments Medication Problem Insulin pens Reason Onset Date Comments Medication Problem 03/05/2024 Reason Onset Date Comments Results 04/12/2022 Reason Onset Date Comments Med Refill 04/26/2022 Reason Onset Date Comments Refill Request 03/07/2024 Reason Comments Medical Nutrition Therapy MAKAYLA Specialty Diagnoses / Procedures Referred By Contac t Referred To Contact Diagnoses 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), managed as type 2 (HCC) Procedures ENDOCRINOLOGY DIETITIAN VISIT (MNT) MEDICAL NUTRITION ASSMT&IVNTJ INDIV EACH 15 [facility] MEDICAL NUTRITION ASSMT&IVNTJ INDIV EACH 15 [facility] MEDICAL NUTRITION ASSMT&IVNTJ INDIV EACH 15 VA MEDICAL NUTRITION ASSMT&IVNTJ INDIV EACH 15 [facility] Amada Gandhi MD [address] [place] [address] Referral ID Status Reason Start Date Expiration Date V isits Requested Visits Authorized [id number] Closed PCP Requested Referral 02/17/2024 02/16/2025 1 1 Reason Onset Date Comments Refill Request 04/10/2024 Reason Onset Date Comments Refill Request 04/11/2024 Reason Comments Medication Problem Reason Comments Recheck DM follow up Reason Comments Insulin Dependent Diabetes Mellitus Reason Onset Date Comments Refill Request 05/24/2024 Reason Comments Patient Question Reason Onset Date Comments Refill Request 08/30/2024 Reason Onset Date Comments Refill Request 08/27/2024 Reason Onset Date Comments Refill Request 09/13/2024 Reason Comments Recheck 6 week follow up Reason Onset Date Comments Med Refill 12/07/2024 Reason Comments Follow-up Seronegative RA Care Teams (unrecognized sec tion and content) Aerial Photogrammetrist Relationship Specialty Start Date End Date Melyssa Mobley MD [address] [place] [address] PCP - General Internal Medicine 11/18/14 [facility] [address] [facility] [place] [address] Pharmacist Pharmacy 12/23/17 Aerial Photogrammetrist Relationship Specialty Start Date End Date Melyssa Mobley MD [address] [place] [address] PCP - General Internal Medicine 11/18/14 [facility] [address] [facility] [place] [address] Pharmacist Pharmacy 12/23/17 Aerial Photogrammetrist Relationship Specialty Start Date End Date Melyssa Mobley MD [address] [facility] [place] [address] PCP - General Internal Medicine 11/18/14 MeridianSuman [facility]ouldMer[facility] [address] [facility] [place] [place] [address] Pharmacist Pharmacy 12/23/17 Aerial Photogrammetrist Relationship Specialty Start Date End Date Melyssa Mobley MD [address] [facility] [place] [address] PCP - General Internal Medicine 11/18/14 Deborah, Suman, [facility] [address] [place] [address] Pharmacist Pharmacy 12/23/17 Aerial Photogrammetrist Relationship Specialty Start Date End Date Melyssa Mobley MD [address] [place] [address] PCP - General Internal Medicine 11/18/14 MeridianSun gouldily, [facility] [address] [place] [address] Pharmacist Pharmacy 12/23/17 Aerial Photogrammetrist Relationship Specialty Start Date End Date Melyssa Mobley MD [address] [place] [address] PCP - General Internal Medicine 11/18/14 Suman Cabrera, [facility] [address] [place] [address] Pharmacist Pharmacy 12/23/17 Aerial Photogrammetrist Relationship Specialty Start Date End Date Melyssa Mobley MD [address] [place] [address] PCP - General Internal Medicine 11/18/14 Meridian, Suman, [facility] [address] [place] [address] Pharmacist Pharmacy 12/23/17 Aerial Photogrammetrist Relationship Specialty Start Date End Date Melyssa Mobley MD [address] [place] [address] PCP - General Internal Medicine 11/18/14 DeborahSuman gould, [facility] [address] [place] [address] Pharmacist Pharmacy 12/23/17 Aerial Photogrammetrist Relationship Specialty Start Date End Date Melyssa Mobley MD [address] [place] [address] PCP - General Internal Medicine 11/18/14 Meridian Suman, [facility] [address] [place] [address] Pharmacist Pharmacy 12/23/17 Aerial Photogrammetrist Relationship Specialty Start Date End Date Melyssa Mobley MD [address] [place] [address] PCP - General Internal Medicine 11/18/14 Meridian Suman, [facility] [address] [place] [address] Pharmacist Pharmacy 12/23/17 Aerial Photogrammetrist Relationship Specialty Start Date End Date Melyssa Mobley MD [address] [place] [address] PCP - General Internal Medicine 11/18/14 DeborahSuman, [facility] [address] [place] [address] Pharmacist Pharmacy 12/23/17 Aerial Photogrammetrist Relationship Specialty Start Date End Date Melyssa Mobley MD [address] [place] [address] PCP - General Internal Medicine 11/18/14 Meridian Suman, [facility] [address] [place] [address] Pharmacist Pharmacy 12/23/17 Aerial Photogrammetrist Relationship Specialty Start Date End Date Melyssa Mobley MD [address] [place] [address] PCP - General Internal Medicine 11/18/14 MeridianSuman, [facility] [address] [place] [address] Pharmacist Pharmacy 12/23/17 Aerial Photogrammetrist Relationship Specialty Start Date End Date Melyssa Mobley MD [address] [place] [address] PCP - General Internal Medicine 11/18/14 Suman Cabrera, [facility] [address] [place] [address] Pharmacist Pharmacy 12/23/17 Aerial Photogrammetrist Relationship Specialty Start Date End Date Melyssa Mobley MD [address] [place] [address] PCP - General Internal Medicine 11/18/14 DeborahSuman gould, [facility] [address] [place] [address] Pharmacist Pharmacy 12/23/17 Aerial Photogrammetrist Relationship Specialty Start Date End Date Melyssa Mobley MD [address] [place] [address] PCP - General Internal Medicine 11/18/14 Suman Cabrera, [facility] [address] [place] [address] Pharmacist Pharmacy 12/23/17 Aerial Photogrammetrist Relationship Specialty Start Date End Date Melyssa Mobley MD [address] [place] [address] PCP - General Internal Medicine 11/18/14 Suman Cabrera, [facility] [address] [place] [address] Pharmacist Pharmacy 12/23/17 Aerial Photogrammetrist Relationship Specialty Start Date End Date Melyssa Mobley MD [address] [place] [address] PCP - General Internal Medicine 11/18/14 Suman Cabrera, [facility] [address] [place] [address] Pharmacist Pharmacy 12/23/17 Aerial Photogrammetrist Relationship Specialty Start Date End Date Melyssa oMbley MD [address] [place] [address] PCP - General Internal Medicine 11/18/14 [facility] [address] [place] [address] Pharmacist Pharmacy 12/23/17 Team Status: Active Member Role Status Dates Dr. Melyssa Mobley MD Family Provider Active No Primary Care Physician Primary Care Provider Active Team Status: Inactive Member Role Status Dates No Primary Care Physician Primary Care Provider Active Ed Physician Provider Emergency Provider Active Aerial Photogrammetrist Relationship Specialty Start Date End Date Melyssa Mobley MD [address] [place] [address] PCP - General Internal Medicine 11/18/14 [facility] [address] [place] [address] Pharmacist Pharmacy 12/23/17 Aerial Photogrammetrist Relationship Specialty Start Date End Date Melyssa Mobley MD [address] [place] [address] PCP - General Internal Medicine 01/25/22 Aerial Photogrammetrist Relationship Specialty Start Date End Date Melyssa Mobley MD [address] [place] [address] PCP - General Internal Medicine 01/25/22 Aerial Photogrammetrist Relationship Specialty Start Date End Date Melyssa Mobley MD [address] [place] [address] PCP - General Internal Medicine 01/25/22 Aerial Photogrammetrist Relationship Specialty Start Date End Date Melyssa Mobley MD [address] [place] [address] PCP - General Internal Medicine 01/25/22 Aerial Photogrammetrist Relationship Specialty Start Date End Date Melyssa Mobley MD [address] [place] [address] PCP - General Internal Medicine 01/25/22 Team Status: Inactive Member Role Status Dates No Primary Care Physician Primary Care Provider Active Ed Physician Provider Attending Provider, Emergency Pr ovider Active Team Status: Inactive Member Role Status Dates No Primary Care Physician Primary Care Provider Active Dr. Bradley Morin , DO Emergency Provider Active Aerial Photogrammetrist Relationship Specialty Start Date End Date Melyssa Mobley MD [address] [place] [address] PCP - General Internal Medicine 01/25/22 Aerial Photogrammetrist Relationship Specialty Start Date End Date Melyssa Mobley MD [address] [place] [address] PCP - General Internal Medicine 11/18/14 Suman Cabrera, [facility] [address] [place] [address] Pharmacist Pharmacy 12/23/17 Aerial Photogrammetrist Relationship Specialty Start Date End Date Melyssa Mobley MD [address] [place] [address] PCP - General Internal Medicine 11/18/14 Suman Cabrera, [facility] [address] [place] [address] Pharmacist Pharmacy 12/23/17 Aerial Photogrammetrist Relationship Specialty Start Date End Date Melyssa Mobley MD [address] [place] [address] PCP - General Internal Medicine 11/18/14 Brenda Pradhan, [facility] [address] [place] [address] Pharmacist Pharmacy 06/02/17 06/05/18 Suman Cabrera, [facility] [address] [place] [address] Pharmacist Pharmacy 12/23/17 Aerial Photogrammetrist Relationship Specialty Start Date End Date Melyssa Mobley MD [address] [place] [address] PCP - General Internal Medicine 11/18/14 Suman Cabrera, [facility] [address] [place] [address] Pharmacist Pharmacy 12/23/17 Aerial Photogrammetrist Relationship Specialty Start Date End Date Melyssa Mobley MD [address] [place] [address] PCP - General Internal Medicine 11/18/14 Suman Cabrera [facility] [address] [place] [address] Pharmacist Pharmacy 12/23/17 Aerial Photogrammetrist Relationship Specialty Start Date End Date Melyssa Mobley MD [address] [place] [address] PCP - General Internal Medicine 01/25/22 Aerial Photogrammetrist Relationship Specialty Start Date End Date Melyssa Mobley MD [address] [place] [address] PCP - General Internal Medicine 01/25/22 Aerial Photogrammetrist Relationship Specialty Start Date End Date Melyssa Mobley MD [address] [place] [address] PCP - General Internal Medicine 01/25/22 Aerial Photogrammetrist Relationship Specialty Start Date End Date Melyssa Mobley MD [address] [place] [address] PCP - General Internal Medicine 11/18/14 Suman Cabrera, [facility] [address] [place] [address] Pharmacist Pharmacy 12/23/17 Aerial Photogrammetrist Relationship Specialty Start Date End Date Melyssa Mobley MD [address] [place] [address] PCP - General Internal Medicine 11/18/14 Suman Cabrera, [facility] [address] [place] [address] Pharmacist Pharmacy 12/23/17 Aerial Photogrammetrist Relationship Specialty Start Date End Date Melyssa Mobley MD [address] [place] [address] PCP - General Internal Medicine 11/18/14 Suman Cabrera, [facility] [address] [place] [address] Pharmacist Pharmacy 12/23/17 Aerial Photogrammetrist Relationship Specialty Start Date End Date Melyssa Mobley MD [address] [place] [address] PCP - General Internal Medicine 11/18/14 Suman Cabrera, [facility] [address] [place] [address] Pharmacist Pharmacy 12/23/17 Aerial Photogrammetrist Relationship Specialty Start Date End Date Melyssa Mobley MD [address] [place] [address] PCP - General Internal Medicine 11/18/14 Suman Cabrera, [facility] [address] [place] [address] Pharmacist Pharmacy 12/23/17 Aerial Photogrammetrist Relationship Specialty Start Date End Date Melyssa Mobley MD [address] [place] [address] PCP - General Internal Medicine 11/18/14 Suman Cabrera, [facility] [address] [place] [address] Pharmacist Pharmacy 12/23/17 Aerial Photogrammetrist Relationship Specialty Start Date End Date Melyssa Mobley MD [address] [place] [address] PCP - General Internal Medicine 11/18/14 Suman Cabrera, [facility] [address] [place] [address] Pharmacist Pharmacy 12/23/17 Aerial Photogrammetrist Relationship Specialty Start Date End Date Melyssa Mobley MD [address] [place] [address] PCP - General Internal Medicine 01/25/22 Aerial Photogrammetrist Relationship Specialty Start Date End Date Melyssa Mobley MD [address] [place] [address] PCP - General Internal Medicine 01/25/22 Aerial Photogrammetrist Relationship Specialty Start Date End Date Melyssa Mobley MD [address] [place] [address] PCP - General Internal Medicine 11/18/14 Suman Cabrera, [facility] [address] [place] [address] Pharmacist Pharmacy 12/23/17 Aerial Photogrammetrist Relationship Specialty Start Date End Date Melyssa Mobley MD [address] [place] [address] PCP - General Internal Medicine 11/18/14 Suman Cabrera, [facility] [address] [place] [address] Pharmacist Pharmacy 12/23/17 Aerial Photogrammetrist Relationship Specialty Start Date End Date Melyssa Mobley MD [address] [place] [address] PCP - General Internal Medicine 11/18/14 Suman Cabrera, [facility] [address] [place] [address] Pharmacist Pharmacy 12/23/17 Aerial Photogrammetrist Relationship Specialty Start Date End Date Melyssa Mobley MD [address] [place] [address] PCP - General Internal Medicine 01/25/22 Aerial Photogrammetrist Relationship Specialty Start Date End Date Melyssa Mobley MD [address] [place] [address] PCP - General Internal Medicine 01/25/22 Aerial Photogrammetrist Relationship Specialty Start Date End Date Melyssa Mobley MD [address] [place] [address] PCP - General Internal Medicine 11/18/14 Suman Cabrera, [facility] [address] [place] [address] Pharmacist Pharmacy 12/23/17 Aerial Photogrammetrist Relationship Specialty Start Date End Date Melyssa Mobley MD [address] [place] [address] PCP - General Internal Medicine 11/18/14 Suman Cabrera, [facility] [address] [place] [address] Pharmacist Pharmacy 12/23/17 Aerial Photogrammetrist Relationship Specialty Start Date End Date Melyssa Mobley MD [address] [place] [address] PCP - General Internal Medicine 11/18/14 [facility] [address] [place] [address] Pharmacist Pharmacy 12/23/17 Aerial Photogrammetrist Relationship Specialty Start Date End Date Melyssa Mobley MD [address] [place] [address] PCP - General Internal Medicine 01/25/22 Aerial Photogrammetrist Relationship Specialty Start Date End Date Melyssa Mobley MD [address] [place] [address] PCP - General Internal Medicine 01/25/22 Aerial Photogrammetrist Relationship Specialty Start Date End Date Melyssa Mobley MD [address] [place] [address] PCP - General Internal Medicine 11/18/14 [facility] [address] [place] [address] Pharmacist Pharmacy 12/23/17 Aerial Photogrammetrist Relationship Specialty Start Date End Date Melyssa Mobley MD [address] [place] [address] PCP - General Internal Medicine 01/25/22 Aerial Photogrammetrist Relationship Specialty Start Date End Date Melyssa Mobley MD [address] [place] [address] PCP - General Internal Medicine 11/18/14 Suman Cabrera, [facility] [address] [place] [address] Pharmacist Pharmacy 12/23/17 Aerial Photogrammetrist Relationship Specialty Start Date End Date Melyssa Mobley MD [address] [place] [address] PCP - General Internal Medicine 01/25/22 Aerial Photogrammetrist Relationship Specialty Start Date End Date Melyssa Mobley MD [address] [place] [address] PCP - General Internal Medicine 11/18/14 DeborahSuman gould, [facility] [address] [place] [address] Pharmacist Pharmacy 12/23/17 Aerial Photogrammetrist Relationship Specialty Start Date End Date Melyssa Mobley MD [address] [place] [address] PCP - General Internal Medicine 11/18/14 Suman Cabrera, [facility] [address] [place] [address] Pharmacist Pharmacy 12/23/17 Aerial Photogrammetrist Relationship Specialty Start Date End Date Melyssa Mobley MD [address] [place] [address] PCP - General Internal Medicine 11/18/14 Suman Cabrera, [facility] [address] [place] [address] Pharmacist Pharmacy 12/23/17 Aerial Photogrammetrist Relationship Specialty Start Date End Date Melyssa Mobley MD [address] [place] [address] PCP - General Internal Medicine 11/18/14 Suman Cabrera, [facility] [address] [place] [address] Pharmacist Pharmacy 12/23/17 Aerial Photogrammetrist Relationship Specialty Start Date End Date Melyssa Mobley MD [address] [place] [address] PCP - General Internal Medicine 11/18/14 Deborah Suman, [facility] [address] [place] [address] Pharmacist Pharmacy 12/23/17 Aerial Photogrammetrist Relationship Specialty Start Date End Date Melyssa Mobley MD [address] [place] [address] PCP - General Internal Medicine 11/18/14 Meridian Suman, [facility] [address] [place] [address] Pharmacist Pharmacy 12/23/17 Aerial Photogrammetrist Relationship Specialty Start Date End Date Melyssa Mobley MD [address] [place] [address] PCP - General Internal Medicine 01/25/22 Aerial Photogrammetrist Relationship Specialty Start Date End Date Melyssa Mobley MD [address] [place] [address] PCP - General Internal Medicine 01/25/22 Aerial Photogrammetrist Relationship Specialty Start Date End Date Melyssa Mobley MD [address] [place] [address] PCP - General Internal Medicine 01/25/22 Aerial Photogrammetrist Relationship Specialty Start Date End Date Melyssa Mobley MD [address] [place] [address] PCP - General Internal Medicine 01/25/22 Aerial Photogrammetrist Relationship Specialty Start Date End Date Melyssa Mobley MD [address] [place] [address] PCP - General Internal Medicine 11/18/14 Suman Cabrera, [facility] [address] [place] [address] Pharmacist Pharmacy 12/23/17 Aerial Photogrammetrist Relationship Specialty Start Date End Date Melyssa Mobley MD [address] [place] [address] PCP - General Internal Medicine 11/18/14 Suman Cabrera, [facility] [address] [place] [address] Pharmacist Pharmacy 12/23/17 Aerial Photogrammetrist Relationship Specialty Start Date End Date Melyssa Mobley MD [address] [place] [address] PCP - General Internal Medicine 11/18/14 Suman Cabrera, [facility] [address] [place] [address] Pharmacist Pharmacy 12/23/17 Aerial Photogrammetrist Relationship Specialty Start Date End Date Melyssa Mobley MD [address] [place] [address] PCP - General Internal Medicine 11/18/14 Suman Cabrera, [facility] [address] [place] [address] Pharmacist Pharmacy 12/23/17 Aerial Photogrammetrist Relationship Specialty Start Date End Date Melyssa Mobley MD [address] [place] [address] PCP - General Internal Medicine 11/18/14 [facility] [address] [place] [address] Pharmacist Pharmacy 12/23/17 Aerial Photogrammetrist Relationship Specialty Start Date End Date Melyssa Mobley MD [address] [place] [address] PCP - General Internal Medicine 11/18/14 [facility] [address] [place] [address] Pharmacist Pharmacy 12/23/17 Aerial Photogrammetrist Relationship Specialty Start Date End Date Melyssa Mobley MD [address] [place] [address] PCP - General Internal Medicine 11/18/14 [facility] [address] [place] [address] Pharmacist Pharmacy 12/23/17 Smiley Borja PA-C [address] [place] [address] [facility] 03/04/24 Gela Medina APRN.CNP [address] [place] [address] Comp[facility] Internal [facility] 03/04/24 Ailin Monreal PA-C [address] [place] [address] [facility] 03/04/24 Aerial Photogrammetrist Relationship Specialty Start Date End Date Melyssa Mobley MD [address] [place] [address] PCP - General Internal Medicine 01/25/22 Aerial Photogrammetrist Relationship Specialty Start Date End Date Melyssa Mobley MD [address] [place] [address] PCP - General Internal Medicine 01/25/22 Aerial Photogrammetrist Relationship Specialty Start Date End Date Melyssa Mobley MD [address] [place] [address] PCP - General Internal Medicine 11/18/14 Suman Cabrera, [facility] [address] [place] [address] Pharmacist Pharmacy 12/23/17 Smiley Borja PA-C [address] [place] [address] [facility] 03/04/24 Gela Medina APRN.CNP [address] [place] [address] [facility] Internal Medicine 03/04/24 Ailin Monreal PA-C [address] [place] [address] [facility] 03/04/24 Aerial Photogrammetrist Relationship Specialty Start Date End Date Melyssa Mobley MD [address] [place] [address] PCP - General Internal Medicine 11/18/14 Suman Cabrera, [facility] [address] [place] [address] Pharmacist Pharmacy 12/23/17 Smiley Borja PA-C [address] [place] [address] [facility] 03/04/24 Gela Medina APRN.AERIAL PHOTOGRAMMETRIST [address] [place] [address] [facility] Internal Medicine 03/04/24 Ailin Monreal PA-C [address] [place] [address] [facility] 03/04/24 Aerial Photogrammetrist Relationship Specialty Start Date End Date Melyssa Mobley MD [address] [place] [address] PCP - General Internal Medicine 11/18/14 [facility] [address] [place] [address] Pharmacist Pharmacy 12/23/17 Smiley Borja PA-C [address] [place] [address] [facility] 03/04/24 Gela Medina APRN.AERIAL PHOTOGRAMMETRIST [address] [place] [address] [facility] Internal Medicine 03/04/24 Ailin Monreal PA-C [address] [place] [address] [facility] 03/04/24 Aerial Photogrammetrist Relationship Specialty Start Date End Date Melyssa Mobley MD [address] [place] [address] PCP - General Internal Medicine 11/18/14 [facility] [address] [place] [address] Pharmacist Pharmacy 12/23/17 Smiley Borja PA-C [address] [place] [address] [facility] 03/04/24 Gela Medina APRN.AERIAL PHOTOGRAMMETRIST [address] [place] [address] Comp[facility] Internal Medicine 03/04/24 Ailin Monreal PA-C [address] [place] [address] [facility] 03/04/24 Aerial Photogrammetrist Relationship Specialty Start Date End Date Melyssa Mobley MD [address] [place] [address] PCP - General Internal Medicine 11/18/14 Suman Cabrera [facility] [address] [place] [address] Pharmacist Pharmacy 12/23/17 Smiley Borja PA-C [address] [place] [address] [facility] 03/04/24 Gela Medina APRN.AERIAL PHOTOGRAMMETRIST [address] [place] [address] [facility] Internal Medicine 03/04/24 Ailin Monreal PA-C [address] [place] [address] [facility] 03/04/24 Aerial Photogrammetrist Relationship Specialty Start Date End Date Melyssa Mobley MD [address] [place] [address] PCP - General Internal Medicine 11/18/14 [facility] [address] [place] [address] Pharmacist Pharmacy 12/23/17 Smiley Borja PA-C [address] [place] [address] [facility] 03/04/24 Gela Medina APRN.AERIAL PHOTOGRAMMETRIST [address] [facility] [place] [place] [address] [facility] Internal [facility] 03/04/24 Ailin Monreal PA-C [address] [place] [address] [facility] 03/04/24 Aerial Photogrammetrist Relationship Specialty Start Date End Date Melyssa Mobley MD [address] [facility] [place] [address] PCP - General Internal Medicine 11/18/14 [facility] [address] [place] [address] Pharmacist Pharmacy 12/23/17 Smiley Borja PA-C [address] [place] [address] [facility] 03/04/24 Gela Medina APRN.AERIAL PHOTOGRAMMETRIST [address] [facility] [place] [address] Comp[facility] Internal Medicine 03/04/24 Ailin Monreal PA-C [address] [facility] [place] [address] [facility] 03/04/24 Aerial Photogrammetrist Relationship Specialty Start Date End Date Melyssa Mobley MD [address] [place] [address] PCP - General Internal Medicine 01/25/22 Aerial Photogrammetrist Relationship Specialty Start Date End Date Melyssa Mobley MD [address] [place] [address] PCP - General Internal Medicine 11/18/14 [facility] [address] [place] [address] Pharmacist Pharmacy 12/23/17 Gela Medina APRN.AERIAL PHOTOGRAMMETRIST [address] [place] [address] [facility] Internal [facility] 03/04/24 Aerial Photogrammetrist Relationship Specialty Start Date End Date Melyssa Mobley MD [address] [place] [address] PCP - General Internal Medicine 11/18/14 [facility] [address] [place] [address] Pharmacist Pharmacy 12/23/17 Smiley Borja PA-C [address] [place] [address] [facility] 03/04/24 06/17/24 Gela Medina APRN.AERIAL PHOTOGRAMMETRIST [address] [place] [address] [facility] Internal Medicine 03/04/24 Ailin Monreal PA-C [address] [place] [address] [facility] 03/04/24 06/17/24 Aerial Photogrammetrist Relationship Specialty Start Date End Date Melyssa Mobley MD [address] [place] [address] PCP - General Internal Medicine 11/18/14 [facility] [address] [place] [address] Pharmacist Pharmacy 12/23/17 Gela Medina APRN.AERIAL PHOTOGRAMMETRIST [address] [place] [address] Comp[facility] Internal Medicine 03/04/24 Aerial Photogrammetrist Relationship Specialty Start Date End Date Melyssa Mobley MD [address] [place] [address] PCP - General Internal Medicine 11/18/14 Suman Cabrera, [facility] [address] [place] [address] Pharmacist Pharmacy 12/23/17 Gela Medina APRN.AERIAL PHOTOGRAMMETRIST [address] [place] [address] [facility] Internal Medicine 03/04/24 Aerial Photogrammetrist Relationship Specialty Start Date End Date Melyssa Mobley MD [address] [place] [address] PCP - General Internal Medicine 11/18/14 Suman Cabrera, [facility] [address] [place] [address] Pharmacist Pharmacy 12/23/17 Gela Medina APRN.AERIAL PHOTOGRAMMETRIST [address] [place] [address] [facility] Internal Medicine 03/04/24 Aerial Photogrammetrist Relationship Specialty Start Date End Date Melyssa Mobley MD [address] [place] [address] PCP - General Internal Medicine 11/18/14 [facility] [address] [place] [address] Pharmacist Pharmacy 12/23/17 Gela Medina APRN.AERIAL PHOTOGRAMMETRIST [address] [place] [address] [facility] Internal Medicine 03/04/24 Aerial Photogrammetrist Relationship Specialty Start Date End Date Melyssa Mobley MD [address] [place] [address] PCP - General Internal Medicine 11/18/14 Suman Cabrera, [facility] [address] [place] [address] Pharmacist Pharmacy 12/23/17 Gela Medina APRN.AERIAL PHOTOGRAMMETRIST [address] [place] [address] [facility] Internal Medicine 03/04/24 Aerial Photogrammetrist Relationship Specialty Start Date End Date Melyssa Mobley MD [address] [place] [address] PCP - General Internal Medicine 11/18/14 Suman Cabrera, [facility] [address] [place] [address] Pharmacist Pharmacy 12/23/17 Gela Medina APRN.AERIAL PHOTOGRAMMETRIST [address] [facility] [place], [place] [address] Comp[facility] Internal Medicine 03/04/24 Team Status: Active Member Role/Relationship Status Dates Dr. Melyssa Mobley MD Primary Care Provider Active Team Status: Inactive Member Role/Relationship Status Dates Dr. Melyssa Mobley MD Primary Care Provider Active Start: September 24, 2024 End: September 24, 2024 Dr. Melyssa Mobley MD Referring Provider Active Start: September 24, 2024 End: September 24, 2024 Love Hastings NP-C Attending Provider Active Start: September 24, 2024 End: September 24, 2024 Aerial Photogrammetrist Relationship Specialty Start Date End Date Melyssa Mobley MD [address] [place] [address] PCP - General Internal Medicine 11/18/14 Suman Cabrera [facility] [address] [place] [address] Pharmacist Pharmacy 12/23/17 Gela Medina APRN.AERIAL PHOTOGRAMMETRIST [address] [facility] [place] [address] Comp[facility] Internal Medicine 03/04/24 Team Status: Inactive Member Role/Relationship Status Dates Dr. Melyssa Mobley MD Primary Care Provider Active Start: October 18, 2024 End: October 19, 2024 Dr. Lorenzo Vizcarra DO Referring Provider Active Start : October 18, 2024 End: October 19, 2024 Dr. Lorenzo Vizcarra DO Emergency Provider Active Start : October 18, 2024 End: October 19, 2024 Aerial Photogrammetrist Relationship Specialty Start Date End Date Melyssa Mobley MD [address] [place] [address] PCP - General Internal Medicine 01/25/22 Goals (unrecognized section and content) Goals may be documented in a n alternate section INFORMATION SOURCE (unrecogn ized section and content) DATE CREATED AUTHOR 04/24/2022 [facility] DATE CREATED AUTHOR AUTHOR'S ORGANIZ ATION 06/29/2022 [facility] ([place] DATE CREATED AUTHOR AUTHOR'S ORGANIZ ATION 02/01/2025 [facility] DATE CREATED AUTHOR AUTHOR'S ORGANIZ ATION 02/06/2025 [facility] DATE CREATED AUTHOR AUTHOR'S ORGANIZ ATION 02/08/2025 [facility] FOR RECORDS PERTAINING TO PATIENTS WHO ARE OR HAVE BEEN ENROLLED IN A CHEMICAL DEPENDENCY/SUBSTANCEABUSE PROGRAM, SOME INFORMATION MAY BE OMITTED. This clinical summary was aggregated from multiple sources. Caution should be exercised in using it in the provision of clinical care. This summary normalizes information from multiple sources, and as a consequence, information in this document may materially change the coding, format and clinical context of patient data. In addition, data may be omitted in some cases. CLINICAL DECISIONS SHOULD BE BASED ON THE PRIMARY CLINICAL RECORDS. [employer] provides no warranty or guarantee of the accuracy or completeness of information in this document.
[2025-02-21 12:58] VITALS: BP 102/68; PULSE 67; RESP 18; O2SAT 94
[2025-02-21 14:00] VITALS: BP 135/55; PULSE 71; RESP 14; O2SAT 97
[2025-02-21 14:33] VITALS: BP 113/79; PULSE 68; RESP 14; TEMP 36.6; O2SAT 98
== END 2025-02-21 14:43 | disposition home or self-care (01) ==
PROVIDERS: Emergency Provider Emergency Medicine; PCP Internal Medicine; Visit Provider Emergency Medicine
DX: T38.3X1A Poisoning by insulin and oral hypoglycemic [antidiabetic] drugs, accidental (unintentional), initial encounter (principal); E10.65 Type 1 diabetes mellitus with hyperglycemia; Z79.4 Long term (current) use of insulin; Z96.41 Presence of insulin pump (external) (internal); I10 Essential (primary) hypertension; I73.00 Raynaud's syndrome without gangrene; M79.7 Fibromyalgia; F17.210 Nicotine dependence, cigarettes, uncomplicated; Z79.899 Other long term (current) drug therapy
CPT/HCPCS: 82962; 99284; A4216